=== PATIENT | female | born 1965 | race Caucasian/White ===

== ENCOUNTER → 2016-07-28 | Outpatient (CLI) | payer BC ==
[~2016-07-28] MED LIST: ACHD5005 PO; DOCU100C37 PO; ESCI10TA PO; ESTR1TAB24 PO; HYDR-3816 PO; IBUP-1773 PO; MAG30ORA2 PO; NALT1TAB PO; NAPR-243 PO; SIME80TA16 PO; SULF1TAB35 PO
--- OUTSIDE RECORDS SUMMARY | 2016-07-28 09:30 | XMS REPORT | Continuity of Care Document ---
Author Author [facility] Organization [facility] Address Unknown Phone Unavailable Care Team Providers Care [place] Farmer Name Role Phone ELMA STEPHENS MD PCP Insurance Providers Payer Name Policy Number [id number] Manuel Vitale Ilan 01 Advance Directives Directive Response Recorded Date/Time Advance Directives No 11/16/15 7:38am Health Care Power of Commissioned Sales Associate No 11/16/15 7:38am Organ Donor No 11/16/15 7:38am Resuscitation Status Full Code 11/16/15 7:38am Problems No problem information available. Medications Current Home Medications Medication Dose Units Route Directions Days/Qty Instructions Start Date Escitalopram Oxalate 10 Mg 10 Mg Oral Daily 11/11/15 Sulfamethoxazole/Trimethoprim 1 Each 1 Each Oral Twice A Day 7 Days Ibuprofen 600 Mg 600 Mg Oral Every 6 Hours as needed for Pain 40 11/15 Hydrocodone/Acetaminophen 1 Each 1-2 Ea Oral Every 6 Hours as needed for Pain 45 11/16/15 Docusate Sodium 100 Mg 100 Mg Oral Twice A Day as needed for Constipation 60 11/16/15 Simethicone 80 Mg 40 Mg Oral Three Times A Day as needed for Indigestion 30 11/16/15 Mag Hydrox/Al Hydrox/Simeth (Mylanta Susp.) 30 Ml 30 Ml Oral Four Times Daily as needed for Indigestion 30 11/16/15 Past Home Medications Medication Directions Ordered Status Acetaminophen/Hydrocodone Bitart 1 Each Tablet, 1 - 2 Each Oral Every 6 Hours as needed 09/01/11 Discontinued Naproxen 500 Mg Tablet, 1 Each Oral Twice A Day as needed 09/01/11 Discontinued Naproxen 500 Mg Tablet, 1 Each Oral Bid - Tid Prn 06/13/12 Discontinued Social History Social History Problem Response Recorded Date/Time Alcohol Use Occasionally Uses 11/16/2015 7:38am Recreational Drug Use No 11/16/2015 7:38am Recent Foreign Travel No 11/16/2015 7:38am Recent Infectious Disease Exposure No 11/16/2015 7:38am Hospitalization with Isolation Denies 11/17/2015 7:16am Sexually Transmitted Disease No 11/16/2015 7:38am HIV/AIDS No 11/16/2015 7:38am Smoking Status Former Smoker 11/16/2015 7:40am Query Response Start Date Stop Date Smoking Status Former Smoker Hospital Discharge Instructions Patient Instructions Physician Instructions New, Converted or Re-Newed RX: RX on Chart Additional Follow Up: Yes (1 week with Mary/Evans, 10-12 weeks with Evans) Activity: Activity as Tolerated (no lifting over 25 lbs) Driving Instructions: No Driving for 1 Week NO SMOKING: NO SMOKING Nothing Inside Vagina: No Douching, No [place] Discharge Diet: No Restrictions Symptoms to Report to : Swelling Increased, Bleeding Excessive, Fever Over 101 Degrees F, Vaginal Bleeding Increase, Cramps in Feet or Legs, Vaginal Discharge Foul For Any Problems or Questions: Contact Your Physician Infection Signs and Symptoms: Increased Redness, Foul Odor of Wound, Increased Drainage, Skin Itchy or Has a Rash, Increased Swelling, Temperature Above 101 F Operative Area Clean and Dry: Do Not Remove Bandage (Only remove if soiled, lifting easily. Will remove in office) Stitches/[place]/Dermabond: Dermabond Bathing Instructions: Shower Plan of Care Discharge Date 11/16/15 8:25pm Instructions/Education Provided Robot Assisted Laparoscopic Hysterectomy (DC) Prescriptions See Medication Section Functional Status Query Response Date Recorded Patient Orientation Person Place Time Situation November 17, 2015 7:16am Allergies, Adverse Reactions, Alerts Allergen Type Severity Reaction Status Last Updated Penicillins ([id number]) Allergy Unknown Active 11/11/15 Tramadol Allergy Intermediate N/V, COLD SWEATS Active 11/11/15 Immunizations Name Given Type Date of Influenza Vaccine 10/01/12 Historical Vital Signs Acute Vital Signs Vital Response Date/Time Temperature (Fahrenheit) 98.3 degrees F (97.6 - 99.5) 11/16/2015 7:33pm Temperature (Calculated Celsius) 36.34483 degrees C (36.4 - 37.5) 11/16/2015 7:33pm Temperature Source Tympanic 11/16/2015 7:33pm Pulse Rate (adult) 102 bpm (60 - 90) 11/16/2015 7:33pm Respiratory Rate 18 bpm (12 - 24) 11/16/2015 7:33pm O2 Sat by Pulse Oximetry 98 % (88 - 100) 11/16/2015 7:33pm Blood Pressure 126/75 mm Hg 11/16/2015 7:33pm Blood Pressure Mean 92 mm Hg 11/16/2015 7:33pm Pain Numeric Pain Scale 5-Moderate Pain 11/16/2015 7:33pm Height (Feet) 5 feet 11/16/2015 7:38am Height (Inches) 6.00 inches 11/16/2015 7:38am Height (Calculated Centimeters) 167.434156 cm 11/16/2015 7:38am Weight (Pounds) 241 pounds 11/16/2015 7:38am Weight (Ounces) 3.0 oz 11/16/2015 7:38am Weight (Calculated Grams) 219199.811 gm 11/16/2015 7:38am Weight (Calculated Kilograms) 109.938913 kilograms 11/16/2015 7:38am Calculated BMI 40.10 11/16/2015 7:38am Results Laboratory Results Test Name Result Units Flags Reference Collection Date/Time Result Date/ Time Comments White Blood Count 9.1 10^3/uL 4.3-11.0 11/11/2015 10:25am 11/11/2015 10 :54am Red Blood Count 5.01 10^6/uL 4.35-5.85 11/11/2015 10:25am 11/11/2015 10 :54am Hemoglobin 13.3 G/DL 11.5-16.0 11/11/2015 10:25am 11/11/2015 10:54am Hematocrit 41 % 35-52 11/11/2015 10:25am 11/11/2015 10:54am Mean Corpuscular Volume 81 FL 80-99 11/11/2015 10:11/11/2015 10: 54am Mean Corpuscular Hemoglobin 27 PG 25-34 11/11/2015 10:11/11/2015 10:54am Mean Corpuscular Hemoglobin Concent 33 G/DL 32-36 11/11/2015 10: 10:54am Red Cell Distribution Width 14.4 % 10.0-14.5 11/11/2015 10:2015 10:54am Platelet Count 376 10^3/uL 130-400 11/11/2015 10:11/11/2015 10: 54am Mean Platelet Volume 9.8 FL 7.4-10.4 11/11/2015 10:11/11/2015 10: 54am Neutrophils (%) (Auto) 68 % 42-75 11/11/2015 10:11/11/2015 10: 54am Lymphocytes (%) (Auto) 23 % 12-44 11/11/2015 10:11/11/2015 10: 54am Monocytes (%) (Auto) 8 % 0-12 11/11/2015 10:11/11/2015 10:54am Eosinophils (%) (Auto) 1 % 0-10 11/11/2015 10:11/11/2015 10:54am Basophils (%) (Auto) 0 % 0-10 11/11/2015 10:11/11/2015 10:54am Neutrophils # (Auto) 6.2 X 10^3 1.8-7.8 11/11/2015 10:11/11/2015 10:54am Lymphocytes # (Auto) 2.1 X 10^3 1.0-4.0 11/11/2015 10:11/11/2015 10:54am Monocytes # (Auto) 0.7 X 10^3 0.0-1.0 11/11/2015 10:11/11/2015 10: 54am Eosinophils # (Auto) 0.1 10^3/uL 0.0-0.3 11/11/2015 10:11/11/2015 10:54am Basophils # (Auto) 0.0 10^3/uL 0.0-0.1 11/11/2015 10:11/11/2015 10 :54am Urine Color HEIDI * 11/11/2015 10:35am 11/11/2015 11:04am Urine Clarity CLEAR 11/11/2015 10:35am 11/11/2015 11:04am Urine pH 7 5-9 11/11/2015 10:35am 11/11/2015 11:04am Urine Specific [place] 1.010 * 1.016-1.022 11/11/2015 10:35am 2015 11:04am Urine Protein 3+ * NEGATIVE 11/11/2015 10:35am 11/11/2015 11:04am Urine Glucose (UA) NEGATIVE NEGATIVE 11/11/2015 10:35am 11/11/2015 11 :04am Urine RBC (Auto) 5+ * NEGATIVE 11/11/2015 10:35am 11/11/2015 11:04am Urine Ketones NEGATIVE NEGATIVE 11/11/2015 10:35am 11/11/2015 11: 04am Urine Nitrite NEGATIVE NEGATIVE 11/11/2015 10:35am 11/11/2015 11: 04am Urine Bilirubin NEGATIVE NEGATIVE 11/11/2015 10:35am 11/11/2015 11: 04am Urine Urobilinogen NORMAL MG/DL NORMAL 11/11/2015 10:35am 11/11/2015 11 :04am Urine Leukocyte Esterase 2+ * NEGATIVE 11/11/2015 10:35am 11/11/2015 11 :04am Urine RBC >100 /HPF * 11/11/2015 10:35am 11/11/2015 11:04am Urine WBC 5-10 /HPF * 11/11/2015 10:35am 11/11/2015 11:04am Urine Bacteria TRACE /HPF 11/11/2015 10:35am 11/11/2015 11:04am Urine Squamous Epithelial Cells 5-10 /HPF 11/11/2015 10:35am 2015 11:04am Urine Crystals NONE /LPF 11/11/2015 10:35am 11/11/2015 11:04am Urine Casts NONE /LPF 11/11/2015 10:35am 11/11/2015 11:04am Urine Mucus NEGATIVE /LPF 11/11/2015 10:35am 11/11/2015 11:04am Urine Culture Indicated YES 11/11/2015 10:35am 11/11/2015 11:04am Microbiology Results Procedure Source Result Collection Date/Time Result Date/Time MRSA Screen Nasal No growth 11/11/2015 10:25am 11/12/2015 11:05am Urine Culture Urine, Clean Catch ESCHERICHIA COLI 11/11/2015 10:35am 2015 8:20am Procedures Procedure Status Date Provider(s) Robot-assisted laparoscopic hysterectomy Completed 11/16/15 IVAN EVANS DO Encounters Encounter Location Arrival/Admit Date Discharge/Depart Date Attending Provider Registered [facility] 11/16/15 7:00am IVAN EVANS DO Departed Clinic [facility] 11/11/15 9:48am 11/11/15 3: 00pm IVAN EVANS DO
--- NOTE | 2016-07-28 13:38 | Diagnostic Imaging Report ---
PROCEDURE: MRI right joint upper extremity without contrast. TECHNIQUE: Multiplanar, multisequence non contrast-enhanced MRI of the right upper extremity was accomplished. INDICATION: Right shoulder pain. FINDINGS: There is susceptibility artifact in the lateral aspect of the humeral head suggestive of a prior rotator cuff surgery with anchors placement into the humeral head. At this time, the rotator cuff demonstrates increased signal within the distal supraspinatus and infraspinatus tendon compatible with tendinosis and there is suggestion of a bursal-side low-grade tear in the distal infraspinatus tendon, and intrasubstance partial tear in the distal supraspinatus. There is minimal reactive fluid in the subacromial subdeltoid bursa. There is no retracted full-thickness tear. The subscapularis tendon demonstrates mild thickening and increased signal compatible with tendinosis. The long head biceps tendon is within its groove. The acromioclavicular joint demonstrates hypertrophic changes and subchondral edema compatible with osteoarthritis with mild inferior osteophytes that have mild impression upon the myotendinous junction of the supraspinatus. The labrum appears grossly unremarkable on this exam without intra-articular contrast. The muscle bulk and signal around the shoulder is normal. IMPRESSION: 1. Rotator cuff tendinosis with associated partial tears in the distal infraspinatus and supraspinatus tendons. 2. Acromioclavicular joint osteoarthritis with inferior osteophytes abutting the myotendinous junction of the supraspinatus. Dictated by: Dictated on workstation # [id number]
== END ==
LOC: RAD 09:27
PROVIDERS: ATTEND Orthopaedic Surgery
DX: M75.101 Unspecified rotator cuff tear or rupture of right shoulder, not specified as traumatic (principal)
CPT/HCPCS: 73221

== ENCOUNTER 2017-02-23 05:36 | Outpatient (CLI) | payer BC ==
[~2017-02-23] VITALS: Ht 167.6 cm; Wt 108.9 kg
[2017-02-23] MEDS ORDERED: LIRA0.6P3 SQ (13:39)
[2017-02-23] MEDS ORDERED: DIAZ2TAB2 PO (13:44)
[2017-02-23] MEDS ORDERED: DULO60CA58 PO (13:44)
[2017-02-23] MEDS ORDERED: ALPR1TAB7 PO (13:44)
== END 2017-02-23 13:48 ==
LOC: PREOP 05:36
PROVIDERS: ATTEND Surgery
DX: Z01.818 Encounter for other preprocedural examination (principal); L98.9 Disorder of the skin and subcutaneous tissue, unspecified

== ENCOUNTER 2017-03-02 08:34 | Day surgery (SDC) | payer BC ==
[~2017-03-02] VITALS: Ht 167.6 cm; Wt 108.9 kg
[~2017-03-02 08:34] MED LIST changes: +ALPR1TAB7 PO; +DIAZ2TAB2 PO; +DULO60CA58 PO; +LIRA0.6P3 SQ
--- OUTSIDE RECORDS SUMMARY | 2017-03-02 08:38 | XMS REPORT | Continuity of Care Document ---
Author Author [facility] Organization [facility] Address Unknown Phone Unavailable Allergies Active Description Code Type Severity Reaction Onset Reported/Identified Relationship to Patient Clinical Status Yes No Known Drug Allergies [id number] Drug Allergy Unknown N/ A 09/01/2011 Yes tramadol [id number] Drug Allergy Moderate N/V, COLD SWEAT 02/07/2016 Yes Penicillins [id number] Drug Allergy Unknown N/A 02/07/2016 Medications Problems Date Dx Coded Attending Type Code Diagnosis Diagnosed By 06/13/2012 Ot 716.96 06/13/2012 Ot 729.5 11/09/2014 [place] WALDRON, GENEVIEVE Zambrano Ot 729.81 11/10/2014 GENEVIEVE ALEJANDRA MD Ot 729.81 11/10/2014 GENEVIEVE ALEJANDRA MD Ot 729.81 11/10/2014 GENEVIEVE ALEJANDRA MD Ot 729.81 11/10/2014 [place] WALDRON, GENEVIEVE Zambrano Ot 729.81 11/16/2014 GENEVIEVE ALEJANDRA MD Ot 729.81 11/16/2014 GENEVIEVE ALEJANDRA MD Ot 729.81 12/07/2014 GENEVIEVE ALEJANDRA MD Ot 729.81 12/07/2014 GENEVIEVE ALEJANDRA MD Ot 729.81 12/09/2014 ARY MATA VACUUM CLEANER OPERATOR Ot 719.46 12/09/2014 ARY MATA VACUUM CLEANER OPERATOR Ot 729.5 12/09/2014 ARY MATA VACUUM CLEANER OPERATOR Ot V12.51 12/16/2014 GENEVIEVE ALEJANDRA MD Ot 729.81 01/08/2015 ARY MATA VACUUM CLEANER OPERATOR Ot 719.46 01/08/2015 ARY MATA VACUUM CLEANER OPERATOR Ot 729.5 01/08/2015 ARY MATA VACUUM CLEANER OPERATOR Ot V12.51 08/17/2015 CHELY RODRIGUEZ VACUUM CLEANER OPERATOR Ot R00.2 08/18/2015 CHELY RODRIGUEZ VACUUM CLEANER OPERATOR Ot R00.2 09/09/2015 CHELY RODRIGUEZ APRN Ot R00.2 PALPITATIONS 10/14/2015 EVANS DO, IVAN C Ot N92.0 EXCESSIVE AND FREQUENT MENSTRUATION WITH 10/14/2015 EVANS DO, IVAN C Ot 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 11/04/2015 EVANS DO, IVAN C Ot N92.0 EXCESSIVE AND FREQUENT MENSTRUATION WITH 11/04/2015 EVANS DO, IVAN C Ot 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 11/11/2015 EVANS DO, IVAN C Ot D25.9 LEIOMYOMA OF UTERUS, UNSPECIFIED 11/11/2015 EVANS DO, IVAN C Ot Z01.812 ENCOUNTER FOR PREPROCEDURAL LABORATORY E 11/11/2015 EVANS DO, IVAN C Ot Z11.2 ENCOUNTER FOR SCREENING FOR OTHER BACTER 11/12/2015 EVANS DO, IVAN C Ot D25.9 LEIOMYOMA OF UTERUS, UNSPECIFIED 11/12/2015 EVANS DO, IVAN C Ot Z01.812 ENCOUNTER FOR PREPROCEDURAL LABORATORY E 11/12/2015 EVANS DO, IVAN C Ot Z11.2 ENCOUNTER FOR SCREENING FOR OTHER BACTER 11/16/2015 EVANS DO, IVAN C Ot D25.0 SUBMUCOUS LEIOMYOMA OF UTERUS 11/16/2015 EVANS DO, IVAN C Ot D25.1 INTRAMURAL LEIOMYOMA OF UTERUS 11/16/2015 EVANS DO, IVAN C Ot D25.2 SUBSEROSAL LEIOMYOMA OF UTERUS 11/16/2015 EVANS DO, IVAN C Ot 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 11/16/2015 EVANS DO, IVAN C Ot N92.0 EXCESSIVE AND FREQUENT MENSTRUATION WITH 11/16/2015 EVANS DO, IVAN C Ot N94.6 DYSMENORRHEA, UNSPECIFIED 11/22/2015 EVANS DO, IVAN C Ot D25.0 SUBMUCOUS LEIOMYOMA OF UTERUS 11/22/2015 EVANS DO, IVAN C Ot D25.1 INTRAMURAL LEIOMYOMA OF UTERUS 11/22/2015 EVANS DO, IVAN C Ot D25.2 SUBSEROSAL LEIOMYOMA OF UTERUS 11/22/2015 EVANS DO, IVAN C Ot 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 11/22/2015 EVANS DO, IVAN C Ot N92.0 EXCESSIVE AND FREQUENT MENSTRUATION WITH 11/22/2015 IVAN EVANS DO Ot N94.6 DYSMENORRHEA, UNSPECIFIED 02/03/2016 RAE WALDRON, KELVIN Rodriguez Ot D25.9 LEIOMYOMA OF UTERUS, UNSPECIFIED 02/03/2016 RAE WALDRON, KELVIN Rodriguez Ot Z01.818 ENCOUNTER FOR OTHER PREPROCEDURAL EXAMIN 02/04/2016 RAE WALDRON, KELVIN Rodriguez Ot D25.9 LEIOMYOMA OF UTERUS, UNSPECIFIED 02/04/2016 RAE WALDRON, KELVIN Rodriguez Ot Z01.818 ENCOUNTER FOR OTHER PREPROCEDURAL EXAMIN 02/07/2016 [place] WALDRON, GENEVIEVE Zambrano Ot 729.81 SWELLING OF LIMB 02/07/2016 ARY MATA VACUUM CLEANER OPERATOR Ot 719.46 JOINT PAIN-L/LEG 02/07/2016 ARY MATA VACUUM CLEANER OPERATOR Ot 729.5 PAIN IN LIMB 02/07/2016 ARY MATA VACUUM CLEANER OPERATOR Ot V12.51 HX-VENOUS THROMBOSIS EMBOLISM 02/07/2016 CHELY RODRIGUEZ VACUUM CLEANER OPERATOR Ot R00.2 PALPITATIONS 02/07/2016 IVAN EVANS DO Ot N92.0 EXCESSIVE AND FREQUENT MENSTRUATION WITH 02/07/2016 IVAN EVANS DO Ot 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 Visit Date/Time Discharge Status Pt. Type Provider Facility Loc./Unit Complaint [id number] 07/28/2016 09:27:00 2016 23:59:59 CLS Outpatient LAMONT RUCKER MD [facility] RAD ROTATOR CUFF SYNDROME [id number] 02/07/2016 12:50:00 2015 16:40:00 DIS Outpatient KELVIN MCBRIDE MD [facility] SDC SCREENING [id number] 02/03/2016 05:46:00 2015 13:13:00 DIS Outpatient KELVIN MCBRIDE MD [facility] PREOP SCREENING COLONSCOPY [id number] 11/16/2015 07:00:00 2015 20:25:00 DIS Outpatient IVAN EVANS DO [facility] SDC UTERINE FIBROIDS [id number] 11/11/2015 09:48:00 2015 15:00:00 DIS Outpatient IVAN EVANS DO [facility] PREOP UTERINE FIBROIDS [id number] 10/13/2015 10:03:00 2015 23:59:59 CLS Outpatient IVAN EVANS DO [facility] RAD MENORRHAGIA,SECONDARY DYSMENORRHEA [id number] 08/16/2015 11:34:00 2015 23:59:59 CLS Outpatient CHELY RODRIGUEZ APRN [facility] CARD PALPITATIONS [id number] 12/07/2014 08:04:00 2014 23:59:59 CLS Outpatient ARY MATA APRN [facility] RAD BILAT LOWER EXTREMITY PAIN [id number] 11/05/2014 07:57:00 2014 23:59:59 CLS Outpatient GENEVIEVE ALEJANDRA MD [facility] RAD RT LEG SWELLING [id number] 11/04/2014 12:30:00 Document Registration
[2017-03-02] MEDS ORDERED: PROPOFOL INJECTION 50 ML IV ONE (08:49)
[2017-03-02] MEDS ORDERED: MIDAZOLAM 2 MG/2 ML (VERSED) VIAL ONE ×2 (08:49→09:27)
[2017-03-02] MEDS ORDERED: RT-ALBUTEROL/IPRATROPIUM 3 ML (DUONEB) VIAL ONE (08:50)
[2017-03-02] MEDS ORDERED: BUP/EPI 0.5% 1:200,000 (MARCAINE) 10ML VIAL IJ ONE (08:52)
[2017-03-02] MEDS ORDERED: LACTATED RINGERS 1,000 ML IV PRN (08:53)
[2017-03-02] MEDS ORDERED: RT-ALBUTEROL SULF 2.5 MG/3 ML PRE-MIX VIAL ONE (08:54)
[2017-03-02] MEDS ORDERED: VANCOMYCIN 1000 MG/VIAL ONE (08:58)
[2017-03-02] MEDS ORDERED: RT-ALBUTEROL SULF 2.5 MG/3 ML PRE-MIX VIAL INH ONE (09:00)
--- NOTE | 2017-03-02 09:00 | Progress Note-Pre Operative ---
Pre-Operative Progress Note H&P Reviewed The H&P was reviewed, patient examined and no changes noted. Date Seen by Provider: Feb 22, 2017 Time Seen by Provider: 11:57 Date H&P Reviewed: Mar 02, 2017 Time H&P Reviewed: 09:00 Pre-Operative Diagnosis: Skin lesion-leg KELVIN MCBRIDE MD Mar 02, 2017 9:00 am
[2017-03-02] MEDS ORDERED: VANCOMYCIN 1 GM/NS 250 ML IVPB IV ONE ×2 (09:15)
[2017-03-02] MEDS ORDERED: fentaNYL INJECTION 100 MCG/2 ML AMP ONE (09:20)
[2017-03-02 09:31] VITALS: BP 164/100
[2017-03-02] MEDS ORDERED: HYDR-3820 PO (09:49)
--- NOTE | 2017-03-02 09:50 | Discharge Inst-Simple/Standard ---
Discharge Inst-Standard Discharge Medications New, Converted or Re-Newed RX: RX on Chart Patient Instructions/Follow Up Plan of Care/Instructions/FU: Dressing may be replaced with a Band-Aid in 48 hours. Follow-up with my nurse in 2 weeks for suture removal. Right foot to be elevated as much as possible Activity as Tolerated: Yes Discharge Diet: No Restrictions KELVIN MCBRIDE MD Mar 02, 2017 9:50 am
--- NOTE | 2017-03-02 10:17 | Operative Report ---
Operative Report Date of Procedure/Surgery Mar 02, 2017 Surgeon (s) KELVIN MCBRIDE MD Shredder Tender (s): N/A Post-Operative Diagnosis Dermatofibroma Procedure Performed Excision with Frozen section Description of Procedure Anesthesia Type: MAC Estimated blood loss (mL): Minimal Specimen(s) collected/removed skin lesion Description of the Procedure Indication for procedure: This lady presented with a 1 cm raised and erythematous lesion over the right leg requiring histologic confirmation. At her request, we elected to complete this procedure under sedation with local anesthetic. Informed consent was obtained after reviewing the procedure and complications of postoperative hematoma and wound infection. Description of procedure: She was placed supine on the operative table and our anesthesiologist administered sedation, monitoring her vital signs. Due to allergy to penicillins, a gram of vancomycin was administered intravenously as prophylaxis against wound infection. Right leg was prepared and draped in the usual sterile manner. Local anesthesia was achieved using 0.5 Marcaine with epinephrine. An elliptical incision 2 cm long by 1.5 cm in width was made and the lesion excised down to the subcutaneoust issue. It was oriented with silk sutures and sent for frozen section examination. Our pathologist confirmed a dermatofibroma with negative margins. The skin edges were then approximated using a combination of 3-0 and 4-0 nylon sutures in an interrupted fashion.She tolerated the procedure well and was taken to the recovery room in a stable condition. Findings of the Procedure See op note Allergies and Home Medications Allergies Coded Allergies: tramadol (Verified Allergy, Intermediate, N/V, COLD SWEATS, 11/11/15) Penicillins (Verified Allergy, Unknown, 11/11/15) Home Medications Alprazolam 1 Mg Tablet, 1 MG PO BID PRN for ANXIETY, (Reported) Diazepam 2 Mg Tablet, 2 MG PO BID PRN for ANXIETY, (Reported) Duloxetine HCl 60 Mg Capsule.dr, 60 MG PO DAILY, (Reported) Hydrocodone/Acetaminophen 1 Each Tablet, 1 TAB PO Q4H PRN for PAIN-MILD TO MODERATE, #20 Ref 0 Prescribed by: KELVIN MCBRIDE on 03/02/17 0949 Liraglutide 0.6 Mg/0.1 Ml Pen.injctr, 1.8 MG SQ DAILY, (Reported) KELVIN MCBRIDE MD Mar 02, 2017 10:17 am
[2017-03-02] MEDS ORDERED: ONDANSETRON 4 MG/2 ML (SDV) Z0FRAN IVP PRN (10:30)
[2017-03-02] MEDS ORDERED: morphine INJ 10 MG/ML 1ML (SYR OR VIAL) IVP PRN (10:30)
[2017-03-02 10:56] VITALS: BP 119/79
[2017-03-02 11:19] VITALS: BP 111/84
== END 2017-03-02 11:35 | disposition home or self-care (01) ==
LOC: SDC 08:34
PROVIDERS: ATTEND Surgery
DX: D23.71 Other benign neoplasm of skin of right lower limb, including hip (principal); I10 Essential (primary) hypertension; F41.9 Anxiety disorder, unspecified; Z79.899 Other long term (current) drug therapy; Z11.2 Encounter for screening for other bacterial diseases; J45.909 Unspecified asthma, uncomplicated; F17.200 Nicotine dependence, unspecified, uncomplicated; G43.909 Migraine, unspecified, not intractable, without status migrainosus; E11.9 Type 2 diabetes mellitus without complications; E66.9 Obesity, unspecified; Z68.39 Body mass index [BMI] 39.0-39.9, adult
CPT/HCPCS: 82962; 87081; 94640

== ENCOUNTER → 2017-07-31 | Outpatient (CLI) | payer OTHER ==
[~2017-07-31] MED LIST changes: +HYDR-34 PO; -HYDR-3816 PO; +HYDR-3820 PO
--- NOTE | 2017-07-31 15:48 | Diagnostic Imaging Report ---
EXAMINATION: Bilateral knees at 10:21 a.m. INDICATION: Knee pain. FINDINGS: Three views of both knee joints were obtained. There is no fracture, dislocation, or acute bony abnormality evident. The mild degenerative changes involving the left knee joint seen on the prior exam of 06/13/2012 are again evident and do not seem to have progressed. The calcification in the soft tissues along the medial aspect of the proximal left tibia seen previously is also essentially no different. This may be a sequela of prior trauma. The mild narrowing of the medial compartment of the right knee joint seen on the previous exam of 11/12/2014 is again evident. The knee joint is otherwise well maintained. The soft tissues are unremarkable. IMPRESSION: 1. There is no evidence for an acute bony abnormality of either knee joint. 2. The degenerative changes involving the knee joint seen on the prior study have not progressed. Dictated by: Dictated on workstation # [id number]
== END ==
LOC: RAD 09:46
PROVIDERS: ATTEND Nurse Practitioner Family
DX: M17.0 Bilateral primary osteoarthritis of knee (principal)

== ENCOUNTER → 2017-08-06 | Outpatient (CLI) | payer OTHER ==
[~2017-08-06] MED LIST changes: +ASPI325T32 PO; +ATOR20TA66 PO; +HYDR-3816 PO; +TRAM50TA2 PO; +ZOLP10TA5 PO
--- NOTE | 2017-08-06 12:35 | Diagnostic Imaging Report ---
INDICATION: Right ankle pain. FINDINGS: Sonographic interrogation of the posterior right foot region and region of the Achilles insertion was performed. The visualized Achilles tendon appears intact. No definite evidence of tendon rupture or retraction is seen. There is a small amount of fluid located adjacent to the posterior calcaneus and deep layers of the calcaneus, perhaps owing to minimal retrocalcaneal bursitis. No other abnormalities are seen. IMPRESSION: Findings suggestive of retrocalcaneal bursitis. No tendon rupture is seen. If further evaluation is warranted, MRI could be performed. Dictated by: Dictated on workstation # [id number]
== END ==
LOC: RAD 11:35
PROVIDERS: ATTEND Nurse Practitioner Family
DX: M25.571 Pain in right ankle and joints of right foot (principal); M25.561 Pain in right knee
CPT/HCPCS: 76881

== ENCOUNTER 2017-08-07 12:13 | Observation (INO) | payer OTHER ==
[~2017-08-07] VITALS: Ht 167.6 cm; Wt 113.9 kg
[2017-08-07] VITALS (11 sets, daily range): BP systolic 107–156; BP diastolic 56–80
[~2017-08-07 12:13] MED LIST changes: -ASPI325T32 PO; -ATOR20TA66 PO; -HYDR-3816 PO; -TRAM50TA2 PO; -ZOLP10TA5 PO
--- OUTSIDE RECORDS SUMMARY | 2017-08-07 12:21 | XMS REPORT | CCD ---
Author Author [place] Organization [facility] Address [address] [place] [address] Phone Care Team Providers Care Race Board Attendant Name Role Phone PP Unavailable CCM Unavailable Summary Purpose Interface Exchange Insurance Providers Payer name Policy type / Coverage type Covered republican ID Effective Begin Date Effective End Date [facility] Commercial Insurance [id number] Unknown Family history Brother Diagnosis Age At Onset Heart Attack Unknown Osteoporosis Unknown Father Diagnosis Age At Onset Heart Attack Unknown Osteoporosis Unknown Arthritis Unknown Hyperlipidemia Unknown Hypertension Unknown Diabetes mellitus Type 2 Unknown Mother Diagnosis Age At Onset Hypertension Unknown Osteoporosis Unknown Asthma Unknown Hyperlipidemia Unknown Heart Attack Unknown Arthritis Unknown Social History Social History Element Codes Description Effective Dates Tobacco history SNOMED CT: 0156879 Quit less than 5 years ago 04/02/2015 Alcohol history Unknown occasionally drinks alcohol 04/02/2015 Marital status Unknown Manuel Vitale 12/02/2014 Number of children Unknown 3 12/02/2014 Allergies, Adverse Reactions, Alerts Allergies, Adverse Reactions, Alerts data not found Past Medical History Illness Codes Condition Status Onset Date Resolved Date Acute laryngopharyngitis ICD-9: 465.0 ICD-10: J06.0 Active 06/27/2017 Unknown Other allergic rhinitis ICD-9: 477.8 ICD-10: J30.89 Active 06/27/2017 Unknown Essential (primary) hypertension ICD-9: 401.9 ICD-10: I10 Active 08/29/2015 Unknown Ganglion, left hand ICD-9: 727.43 ICD-10: M67.442 Active 05/29/2017 Unknown Generalized anxiety disorder ICD-9: 308.0 ICD-10: F41.1 Active 05/18/2016 Unknown Other insomnia ICD-9: 327.09 ICD-10: G47.09 Active 05/18/2016 Unknown Generalized anxiety disorder ICD-9: 300.00 ICD-10: F41.1 Active 05/21/2017 Unknown Palpitations ICD-9: 785.1 ICD-10: R00.2 Active 08/15/2015 Unknown Pain in right foot ICD -9: 729.5 ICD-10: M79.671 Active 04/20/2017 Unknown Encounter for immunization ICD-9: V03.82 ICD-10: Z23 Active 03/16/2017 Unknown VACCIN FOR INFLUENZA ICD-9: V04.81 ICD-10: Z23 Active 03/16/2017 Unknown Other skin changes ICD -9: 782.9 ICD-10: R23.8 Active 01/26/2017 Unknown Acute bronchitis due to other specified organisms ICD-9: 466.0 ICD-10: J20.8 Active 01/11/2017 Unknown Chronic pain syndrome ICD-9: 338.4 ICD-10: G89.4 Active 08/29/2015 Unknown Other obesity due to excess calories ICD-9: 278.00 ICD-10: E66.09 Active 01/12/2016 Unknown Primary generalized (osteo)arthritis ICD-9: 715.09 ICD-10: M15.0 Active 07/14/2015 Unknown Hypertension Unknown Active 09/28/2016 Unknown Generalized anxiety disorder ICD-9: 300.02 ICD-10: F41.1 Active 08/24/2016 Unknown Major depressive disorder, recurrent, mild ICD-9: 296.31 ICD-10: F33.0 Active 08/24/2016 Unknown Low back pain ICD-9: 724.2 ICD-10: M54.5 Active 07/13/2016 Unknown Major depressive disorder, recurrent, moderate ICD-9: 296.32 ICD-10: F33.1 Active 05/18/2016 Unknown Other muscle spasm ICD -9: 728.85 ICD-10: M62.838 Active 05/18/2016 Unknown Streptococcal pharyngitis ICD-9: 034.0 ICD-10: J02.0 Active 02/27/2016 Unknown Major depressive disorder, recurrent, unspecified ICD-9: 296.30 ICD-10: F33.9 Active 09/26/2015 Unknown Excessive and frequent menstruation with regular cycle ICD-9: 626.2 ICD-10: N92.0 Active 08/29/2015 Unknown Pain in right knee ICD -9: 719.46 ICD-10: M25.561 Active 08/29/2015 Unknown Acute maxillary sinusitis, unspecified ICD-9: 461.0 ICD-10: J01.00 Active 07/14/2015 Unknown Restless legs syndrome ICD-9: 333.94 ICD-10: G25.81 Active 06/15/2015 Unknown Varicose veins of bilateral lower extremities with pain ICD-9: 454.8 ICD-10: I83.813 Active 04/01/2015 Unknown Osteoarthritis Unknown Active 12/02/2014 Unknown ABNORMAL WEIGHT GAIN ICD-9: 783.1 Active 12/01/2014 Unknown Osteoarthritis ICD-9: 715.90 Active 12/01/2014 Unknown Problems Condition Codes Effective Dates Condition Status Acute laryngopharyngitis ICD-9: 465.0 ICD-10: J06.0 06/27/2017 Active Other allergic rhinitis ICD-9: 477.8 ICD-10: J30.89 06/27/2017 Active Essential (primary) hypertension ICD-9: 401.9 ICD-10: I10 08/29/2015 Active Ganglion, left hand ICD-9: 727.43 ICD-10: M67.442 05/29/2017 Active Generalized anxiety disorder ICD-9: 308.0 ICD-10: F41.1 05/18/2016 Active Other insomnia ICD-9: 327.09 ICD-10: G47.09 05/18/2016 Active Generalized anxiety disorder ICD-9: 300.00 ICD-10: F41.1 05/21/2017 Active Palpitations ICD-9: 785.1 ICD-10: R00.2 08/15/2015 Active Pain in right foot ICD -9: 729.5 ICD-10: M79.671 04/20/2017 Active Encounter for immunization ICD-9: V03.82 ICD-10: Z23 03/16/2017 Active VACCIN FOR INFLUENZA ICD-9: V04.81 ICD-10: Z23 03/16/2017 Active Other skin changes ICD -9: 782.9 ICD-10: R23.8 01/26/2017 Active Acute bronchitis due to other specified organisms ICD-9: 466.0 ICD-10: J20.8 01/11/2017 Active Chronic pain syndrome ICD-9: 338.4 ICD-10: G89.4 08/29/2015 Active Other obesity due to excess calories ICD-9: 278.00 ICD-10: E66.09 01/12/2016 Active Primary generalized (osteo)arthritis ICD-9: 715.09 ICD-10: M15.0 07/14/2015 Active Hypertension Unknown 09/28/2016 Active Generalized anxiety disorder ICD-9: 300.02 ICD-10: F41.1 08/24/2016 Active Major depressive disorder, recurrent, mild ICD-9: 296.31 ICD-10: F33.0 08/24/2016 Active Low back pain ICD-9: 724.2 ICD-10: M54.5 07/13/2016 Active Major depressive disorder, recurrent, moderate ICD-9: 296.32 ICD-10: F33.1 05/18/2016 Active Other muscle spasm ICD -9: 728.85 ICD-10: M62.838 05/18/2016 Active Streptococcal pharyngitis ICD-9: 034.0 ICD-10: J02.0 02/27/2016 Active Major depressive disorder, recurrent, unspecified ICD-9: 296.30 ICD-10: F33.9 09/26/2015 Active Excessive and frequent menstruation with regular cycle ICD-9: 626.2 ICD-10: N92.0 08/29/2015 Active Pain in right knee ICD -9: 719.46 ICD-10: M25.561 08/29/2015 Active Acute maxillary sinusitis, unspecified ICD-9: 461.0 ICD-10: J01.00 07/14/2015 Active Restless legs syndrome ICD-9: 333.94 ICD-10: G25.81 06/15/2015 Active Varicose veins of bilateral lower extremities with pain ICD-9: 454.8 ICD-10: I83.813 04/01/2015 Active Osteoarthritis Unknown 12/02/2014 Active ABNORMAL WEIGHT GAIN ICD-9: 783.1 12/01/2014 Active Osteoarthritis ICD-9: 715.90 12/01/2014 Active Medications Medication Codes Instructions Start Date Stop Date Status Fill Instructions Keflex 500 mg capsule RxNorm: 050552 1 Capsule(s) PO TID 201707/03/2017 Active ceftriaxone 500 mg solution for injection RxNorm: 2155268 1 Milliliter(s) Inj 06/27/2017 06/27/2017 Inactive Ambien 10 mg tablet RxNorm: 912285 1 Tablet(s) PO daily 201708/26/2017 Active tramadol 50 mg tablet RxNorm: 222967 1 Tablet(s) PO TID as needed 05/29/2017 07/27/2017 Active Xanax 1 mg tablet RxNorm: 013313 1 Tablet(s) PO BID PRN as needed anxiety 05/21/2017 No Stop Date Active alprazolam 1 mg tablet RxNorm: 297595 1 Tablet(s) PO BID as needed 05/21/2017 06/19/2017 Inactive Celebrex 200 mg capsule RxNorm: 273359 1 CAPSULE(S) PO BID 10/30/2017 Active hydrocodone 5 mg-acetaminophen 325 mg tablet RxNorm: 407784 1 Tablet(s) PO QID as needed 04/20/2017 No Stop Date Active Cymbalta 60 mg capsule,delayed release RxNorm: 046349 1 Capsule(s) PO daily 04/20/2017 11/15/2017 Active prednisone 20 mg tablet RxNorm: 816884 2 Tablet(s) PO daily 12/201604/24/2017 Inactive Ambien 10 mg tablet RxNorm: 933264 Tablet(s) PO 04/20/2017 05/28/2017 Inactive Victoza 2-Marek 0.6 mg/0.1 mL (18 mg/3 mL) subcutaneous pen injector RxNorm: 020046 INJECT 1.8 MG SUB-Q ONCE DAILY 03/26/2017 09/21/2017 Active diazepam 2 mg tablet RxNorm: 874146 1 Tablet(s) PO QHS as needed insomnia 01/28/2017 05/07/2017 Inactive Victoza 2-Marek 0.6 mg/0.1 mL (18 mg/3 mL) subcutaneous pen injector RxNorm: 620652 1.8 Milligram(s) SQ daily 01/26/201703/25 Inactive dispense quantity sufficient albuterol sulfate 2.5 mg/3 mL (0.083 %) solution for nebulization RxNorm: 602733 3 Milliliter(s) INH UD 01/11/2017 No Stop Date Active Tussionex Pennkinetic ER 10 mg-8 mg/5 mL suspension, extended release RxNorm: 8235707 5 Milliliter(s) PO BID 01/11/2017 01/15/2017 Inactive Xanax 1 mg tablet RxNorm: 861824 1 Tablet(s) PO BID PRN as needed anxiety 01/11/2017 05/20/2017 Inactive Zithromax Z-Marek 250 mg tablet RxNorm: 744006 1 Tablet(s) PO UD 01/11/2017 01/15/2017 Inactive zpack prednisone 20 mg tablet RxNorm: 764683 2 Tablet(s) PO daily 01/15/2017 Inactive Kenalog 40 mg/mL suspension for injection RxNorm: 7364232 1.5 Milliliter(s) Inj 01/11/2017 01/11/2017 Inactive Ambien 5 mg tablet RxNorm: 427982 1 Tablet(s) PO HS PRN 11/3001/28/2017 Inactive Celebrex 200 mg capsule RxNorm: 638770 1 Capsule(s) PO BID 02/27/2017 Inactive trazodone 50 mg tablet RxNorm: 508499 1/2 to 1 Tablet(s) PO QHS 10/13/2016 10/12/2016 Inactive trazodone 50 mg tablet RxNorm: 433805 1/2 to 1 Tablet(s) PO QHS 10/13/2016 11/29/2016 Inactive Belsomra 10 mg tablet RxNorm: 3184466 1 Tablet(s) PO QHS 201611/29/2016 Inactive may increase to 20mg if 10mg not effective Cymbalta 60 mg capsule,delayed release RxNorm: 617734 1 Capsule(s) PO daily 08/24/2016 03/21/2017 Inactive Xanax 1 mg tablet RxNorm: 507831 1 Tablet(s) PO BID PRN as needed anxiety 08/24/2016 01/10/2017 Inactive Victoza 2-Marek 0.6 mg/0.1 mL (18 mg/3 mL) subcutaneous pen injector RxNorm: 029668 Milligram(s) SQ 08/24/2016 08/23/2016 Inactive Victoza 2-Marek 0.6 mg/0.1 mL (18 mg/3 mL) subcutaneous pen injector RxNorm: 511338 1.8 Milligram(s) SQ 08/24/2016 01/25/2017 Inactive Vitamin D2 50,000 unit capsule RxNorm: 172092 1 Capsule(s) PO QW 07/13/2016 10/10/2016 Inactive Cymbalta 30 mg capsule,delayed release RxNorm: 540353 1 Capsule(s) PO daily 07/13/2016 08/23/2016 Inactive Belviq XR 20 mg tablet,extended release RxNorm: 1466909 1 Tablet(s) PO daily 05/30/2016 05/29/2016 Inactive prednisone 20 mg tablet RxNorm: 901217 2 Tablet(s) PO daily 06/03/2016 Inactive prednisone 20 mg tablet RxNorm: 203545 2 Tablet(s) PO daily 05/29/2016 Inactive Belviq XR 20 mg tablet,extended release RxNorm: 5608328 1 Tablet(s) PO daily 05/30/2016 06/28/2016 Inactive cyclobenzaprine 5 mg tablet RxNorm: 662586 1-2 Tablet(s) PO TID as needed 05/19/2016 05/23/2016 Inactive metoprolol succinate ER 25 mg tablet,extended release 24 hr RxNorm: 845007 1 Tablet(s) PO QPM 04/10/2016 04/13/2016 Inactive metoprolol succinate ER 25 mg tablet,extended release 24 hr RxNorm: 029544 1 Tablet(s) PO QPM 04/10/2016 04/09/2016 Inactive escitalopram 10 mg tablet RxNorm: 467926 1 Tablet(s) PO daily 03/16/2016 07/12/2016 Inactive estradiol 1 mg tablet RxNorm: 886550 1 Tablet(s) PO every other day 03/16/2016 05/15/2016 Inactive Kenalog 40 mg/mL suspension for injection RxNorm: 1101939 Milliliter(s) Inj 02/28/2016 02/28/2016 Inactive Zithromax Z-Marek 250 mg tablet RxNorm: 250740 1 Tablet(s) PO UD 02/28/2016 03/03/2016 Inactive zpack Lexapro 10 mg tablet RxNorm: 999319 1 Tablet(s) PO daily 201502/27/2016 Inactive Lexapro 10 mg tablet RxNorm: 455862 1 Tablet(s) PO daily 201509/26/2015 Inactive Vimovo 500 mg-20 mg tablet,immediate and delay release RxNorm: 676099 1 Tablet(s) PO BID as needed for pain 08/30/201509/25 Inactive azithromycin 250 mg tablet RxNorm: 628533 1 Tablet(s) PO UD 2 pills on day #1, then one pill daily x 4 days 07/15/2015 Inactive hydrocodone 10 mg-acetaminophen 325 mg tablet RxNorm: 545883 1 Tablet(s) PO QID 06/16/2015 01/12/2016 Inactive pramipexole 0.5 mg tablet RxNorm: 898622 1 Tablet(s) PO QPM 07/201507/14/2015 Inactive Celebrex 200 mg capsule RxNorm: 943180 1 Capsule(s) PO daily 05/02/2015 Inactive Celebrex 200 mg capsule RxNorm: 130198 1 Capsule(s) PO daily 01/12/2016 Inactive hydrocodone 7.5 mg-acetaminophen 325 mg tablet RxNorm: 142282 1 Tablet(s) PO Q6 PRN 05/03/2015 06/15/2015 Inactive Mobic 15 mg tablet RxNorm: 717685 1 Tablet(s) PO daily 201405/02/2015 Inactive hydrocodone 7.5 mg-acetaminophen 325 mg tablet RxNorm: 945527 1 Tablet(s) PO Q6 PRN 04/02/2015 05/02/2015 Inactive hydrocodone 5 mg-acetaminophen 325 mg tablet RxNorm: 533826 1 Tablet(s) PO Q6 as needed 12/11/2014 04/01/2015 Inactive Pennsaid 1.5 % topical drops RxNorm: 167100 40 Drop(s) TOP QID as needed 12/07/2014 02/04/2015 Inactive Apply 40 drops to each knee joint 4 times per day as needed for osteoarthritis pain Phenergan-Codeine syrup RxNorm: 5-10 Milliliter(s) PO QID as needed No Start Date Active estradiol 1 mg tablet RxNorm: 162314 1 Tablet(s) PO QHS No Start Date 03/15/2016 Inactive Xanax 0.5 mg tablet RxNorm: 069395 1 Tablet(s) PO Q6 as needed anxiety No Start Date 08/23/2016 Inactive Tylenol Extra Strength 500 mg tablet RxNorm: 716340 3 Tablet(s) PO BID after breakfast and after lunch No Start Date Inactive hydrocodone 5 mg-acetaminophen 325 mg tablet RxNorm: 868066 1 Tablet(s) PO Q6 as needed No Start Date 12/10/2014 Inactive ibuprofen 200 mg capsule RxNorm: 716500 4 Capsule(s) PO QID as needed No Start Date 04/01/2015 Inactive Medication Administered Medication Codes Instructions Start Date Status ceftriaxone 500 mg solution for injection RxNorm: 3352164 1Milliliter 06/27/2017 No longer Active Kenalog 40 mg/mL suspension for injection RxNorm: 8502173 1.5Milliliter 01/11/2017 No longer Active Kenalog 40 mg/mL suspension for injection RxNorm: 8570351 Milliliter 02/28/2016 No longer Active Immunizations Vaccine Codes Date Status Influenza CVX: 141 03/16/2017 completed Pneumococcal (Adult) CVX: 33 03/16/2017 completed Assessments Condition Codes Effective Dates Other allergic rhinitis ICD-10: J30.89 ICD-9: 477.8 06/27/2017 Acute laryngopharyngitis ICD-10: J06.0 ICD-9: 465.0 06/27/2017 Ganglion, left hand ICD-10: M67.442 ICD-9: 727.43 05/29/2017 Essential (primary) hypertension ICD-10: I10 ICD-9: 401.9 05/29/2017 Generalized anxiety disorder ICD-10: F41.1 ICD-9: 308.0 05/29/2017 Other insomnia ICD-10: G47.09 ICD-9: 327.09 05/29/2017 Palpitations ICD-10: R00.2 ICD-9: 785.1 05/21/2017 Generalized anxiety disorder ICD-10: F41.1 ICD-9: 300.00 05/21/2017 Pain in right foot ICD-10: M79.671 ICD-9: 729.5 04/20/2017 Encounter for immunization ICD-10: Z23 ICD-9: V03.82 03/16/2017 VACCIN FOR INFLUENZA ICD-10: Z23 ICD-9: V04.81 03/16/2017 Other skin changes ICD-10: R23.8 ICD-9: 782.9 01/26/2017 Acute bronchitis due to other specified organisms ICD-10: J20.8 ICD-9: 466.0 01/11/2017 Primary generalized (osteo)arthritis ICD-10: M15.0 ICD-9: 715.09 11/30/2016 Other obesity due to excess calories ICD-10: E66.09 ICD-9: 278.00 11/30/2016 Generalized anxiety disorder ICD-10: F41.1 ICD-9: 300.02 09/28/2016 Major depressive disorder, recurrent, mild ICD-10: F33.0 ICD-9: 296.31 08/24/2016 Low back pain ICD-10: M54.5 ICD-9: 724.2 07/13/2016 Major depressive disorder, recurrent, moderate ICD-10: F33.1 ICD-9: 296.32 07/13/2016 Other muscle spasm ICD-10: M62.838 ICD-9: 728.85 05/19/2016 Streptococcal pharyngitis ICD-10: J02.0 ICD-9: 034.0 02/28/2016 Major depressive disorder, recurrent, unspecified ICD-10: F33.9 ICD-9: 296.30 09/27/2015 Pain in right knee ICD-10: M25.561 ICD-9: 719.46 08/30/2015 Excessive and frequent menstruation with regular cycle ICD- 10: N92.0 ICD-9: 626.2 08/30/2015 Chronic pain syndrome ICD-10: G89.4 ICD-9: 338.4 08/30/2015 Acute maxillary sinusitis, unspecified ICD-10: J01.00 ICD-9: 461.0 07/15/2015 Restless legs syndrome ICD-10: G25.81 ICD-9: 333.94 06/16/2015 Varicose veins of bilateral lower extremities with pain ICD- 10: I83.813 ICD-9: 454.8 04/02/2015 Superficial thrombophlebitis ICD-9: 451.9 12/02/2014 Osteoarthritis ICD-9: 715.90 12/02/2014 ABNORMAL WEIGHT GAIN ICD-9: 783.1 2014 Reason For Visit Reason For Visit Effective Dates Notes sore throat 06/27/2017 hypertension 05/29/2017 hypertension 05/21/2017 foot pain 04/20/2017 vaccination against influenza 03/16/2017 skin lesion 01/26/2017 cough 01/11/2017 insomnia 11/30/2016 insomnia 09/28/2016 depression 08/24/2016 depression 07/13/2016 myalgias 05/19/2016 depression 03/16/2016 sore throat 02/28/2016 depression 01/13/2016 medication follow up 09/27/2015 palpitations 08/30/2015 palpitations 08/16/2015 knee pain 07/15/2015 knee pain 06/16/2015 knee pain 04/02/2015 knee pain 12/02/2014 Results Observation Observation Code Item Item Code Result Date Free T4 Wzq733 FREE T4 0.76 ng/dL 05/21/2017 Tsh Ord6 hTSH II 1.27 uIU/mL 05/21/2017 Comp Metabolic Woo483 NA 140 mEq/L 05/21/2017 Comp Metabolic Fdu046 K 3.9 mEq/L 05/21/2017 Comp Metabolic Hwp829 CL 101 mEq/L 05/21/2017 Comp Metabolic Mqj423 CO2 28.0 mEq/L 05/21/2017 Comp Metabolic Vqu400 ANION GAP 15 05/21/2017 Comp Metabolic Cxw437 GLUCOSE 155 mg/dL 05/21/2017 Comp Metabolic Mla581 Creat 0.7 mg/dL 05/21/2017 Comp Metabolic Gso691 eGFR 87 ml/min/1.73m2 05/21/2017 Comp Metabolic Ahn085 BUN 16 mg/dL 05/21/2017 Comp Metabolic Maa835 B/C Ratio 21.6 Ratio 05/21/2017 Comp Metabolic Jdi380 CALCIUM 9.4 mg/dL 05/21/2017 Comp Metabolic Wcy097 ALK PHOS 132 U/L 05/21/2017 Comp Metabolic Tmz637 AST(SGOT) 16 U/L 05/21/2017 Comp Metabolic Tsh143 ALT(SGPT) 20 U/L 05/21/2017 Comp Metabolic Mzx315 BILI T 0.4 mg/dL 05/21/2017 Comp Metabolic Foh082 ALBUMIN 4.0 g/dL 05/21/2017 Comp Metabolic Afc295 TPRO 6.7 g/dL 05/21/2017 Comp Metabolic Ifg640 GLOB 2.7 g/dL 05/21/2017 Comp Metabolic Qju576 A/G Ratio 1.5 Ratio 05/21/2017 Comp Metabolic Yvv416 Osmo 284 mOsmo 05/21/2017 Cbc With Differential Ord2 WBC 14.12 K/ul 05/21/2017 Cbc With Differential Ord2 RBC 5.29 M/ul 05/21/2017 Cbc With Differential Ord2 HGB 15.3 g/dl 05/21/2017 Cbc With Differential Ord2 HCT 46.4 % 05/21/2017 Cbc With Differential Ord2 Neut% 74.9 % 05/21/2017 Cbc With Differential Ord2 MCV 87.7 fl 05/21/2017 Cbc With Differential Ord2 Lymph% 18.8 % 05/21/2017 Cbc With Differential Ord2 Amelia% 5.5 % 05/21/2017 Cbc With Differential Ord2 MCH 28.9 pg 05/21/2017 Cbc With Differential Ord2 MCHC 33.0 pg 05/21/2017 Cbc With Differential Ord2 Eos% 0.6 % 05/21/2017 Cbc With Differential Ord2 PLT 357 K/ul 05/21/2017 Cbc With Differential Ord2 Baso% 0.2 % 05/21/2017 Cbc With Differential Ord2 RDW 14.0 % 05/21/2017 Cbc With Differential Ord2 Neut ABS# 10.59 K/ul 05/21/2017 Cbc With Differential Ord2 Lymph ABS# 2.65 K/ul 05/21/2017 Cbc With Differential Ord2 Amelia ABS# 0.8 K/ul 05/21/2017 Cbc With Differential Ord2 Eos ABS# 0.1 K/ul 05/21/2017 Cbc With Differential Ord2 Baso ABS# 0.0 K/ul 05/21/2017 Estrogens Total 439058 ESTROGENS, TOTAL 54 pg/mL 05/24/2016 Magnesium Ord90 Mag 1.8 mg/dL 05/19/2016 Tsh Ord6 hTSH II 1.56 uIU/mL 05/19/2016 Progesterone Prog 0.03 ng/mL 05/19/2016 Comp Metabolic Gxx598 NA 136 mEq/L 05/19/2016 Comp Metabolic Sac777 K 4.3 mEq/L 05/19/2016 Comp Metabolic Yjv103 CL 100 mEq/L 05/19/2016 Comp Metabolic Vtb279 CO2 28.0 mEq/L 05/19/2016 Comp Metabolic Gnk845 ANION GAP 12 05/19/2016 Comp Metabolic Tnk190 GLUCOSE 138 mg/dL 05/19/2016 Comp Metabolic Wiq741 Creat 0.7 mg/dL 05/19/2016 Comp Metabolic Qxp101 eGFR 89 ml/min/1.73m2 05/19/2016 Comp Metabolic Kzb780 BUN 15 mg/dL 05/19/2016 Comp Metabolic Vlj478 B/C Ratio 20.5 Ratio 05/19/2016 Comp Metabolic Zcf568 CALCIUM 9.7 mg/dL 05/19/2016 Comp Metabolic Qhp752 ALK PHOS 106 U/L 05/19/2016 Comp Metabolic Uus630 AST(SGOT) 21 U/L 05/19/2016 Comp Metabolic Tkq925 ALT(SGPT) 24 U/L 05/19/2016 Comp Metabolic Qtd511 BILI T 0.4 mg/dL 05/19/2016 Comp Metabolic Vbg968 ALBUMIN 4.1 g/dL 05/19/2016 Comp Metabolic Mqr104 TPRO 7.1 g/dL 05/19/2016 Comp Metabolic Oem446 GLOB 3.0 g/dL 05/19/2016 Comp Metabolic Siw332 A/G Ratio 1.4 Ratio 05/19/2016 Comp Metabolic Yog040 Osmo 275 mOsmo 05/19/2016 Cbc With Differential Ord2 WBC 8.76 K/ul 05/19/2016 Cbc With Differential Ord2 RBC 4.98 M/ul 05/19/2016 Cbc With Differential Ord2 HGB 14.2 g/dl 05/19/2016 Cbc With Differential Ord2 HCT 43.1 % 05/19/2016 Cbc With Differential Ord2 Neut% 65.9 % 05/19/2016 Cbc With Differential Ord2 Lymph% 26.6 % 05/19/2016 Cbc With Differential Ord2 MCV 86.5 fl 05/19/2016 Cbc With Differential Ord2 Amelia% 6.5 % 05/19/2016 Cbc With Differential Ord2 MCH 28.5 pg 05/19/2016 Cbc With Differential Ord2 MCHC 32.9 pg 05/19/2016 Cbc With Differential Ord2 Eos% 0.8 % 05/19/2016 Cbc With Differential Ord2 PLT 334 K/ul 05/19/2016 Cbc With Differential Ord2 Baso% 0.2 % 05/19/2016 Cbc With Differential Ord2 RDW 14.7 % 05/19/2016 Cbc With Differential Ord2 Neut ABS# 5.77 K/ul 05/19/2016 Cbc With Differential Ord2 Lymph ABS# 2.33 K/ul 05/19/2016 Cbc With Differential Ord2 Amelia ABS# 0.6 K/ul 05/19/2016 Cbc With Differential Ord2 Eos ABS# 0.1 K/ul 05/19/2016 Cbc With Differential Ord2 Baso ABS# 0.0 K/ul 05/19/2016 C RAP A SC [id number] Strep A Negative 02/28/2016 Tsh Ord6 hTSH II 1.65 uIU/mL 08/16/2015 Cbc With Differential Ord2 WBC 9.02 K/ul 08/16/2015 Cbc With Differential Ord2 RBC 4.97 M/ul 08/16/2015 Cbc With Differential Ord2 HGB 13.0 g/dl 08/16/2015 Cbc With Differential Ord2 Neut% 66.0 % 08/16/2015 Cbc With Differential Ord2 HCT 40.2 % 08/16/2015 Cbc With Differential Ord2 Lymph% 25.7 % 08/16/2015 Cbc With Differential Ord2 MCV 80.9 fl 08/16/2015 Cbc With Differential Ord2 MCH 26.2 pg 08/16/2015 Cbc With Differential Ord2 Amelia% 7.1 % 08/16/2015 Cbc With Differential Ord2 MCHC 32.3 pg 08/16/2015 Cbc With Differential Ord2 Eos% 0.9 % 08/16/2015 Cbc With Differential Ord2 Baso% 0.3 % 08/16/2015 Cbc With Differential Ord2 PLT 369 K/ul 08/16/2015 Cbc With Differential Ord2 Neut ABS# 5.95 K/ul 08/16/2015 Cbc With Differential Ord2 RDW 15.3 % 08/16/2015 Cbc With Differential Ord2 Lymph ABS# 2.32 K/ul 08/16/2015 Cbc With Differential Ord2 Amelia ABS# 0.6 K/ul 08/16/2015 Cbc With Differential Ord2 Eos ABS# 0.1 K/ul 08/16/2015 Cbc With Differential Ord2 Baso ABS# 0.0 K/ul 08/16/2015 Cbc With Differential Ord2 New Analyzer Notice Please note new ref ranges starting 05-26-2015 due to implemntation of new five part differential hematolgy analyzer. 08/16/2015 Comp Metabolic Xtq606 NA 132 mEq/L 08/16/2015 Comp Metabolic Kul745 K 3.6 mEq/L 08/16/2015 Comp Metabolic Bqy851 CL 99 mEq/L 08/16/2015 Comp Metabolic Chi785 CO2 23.0 mEq/L 08/16/2015 Comp Metabolic Voi511 ANION GAP 14 08/16/2015 Comp Metabolic Mzu010 GLUCOSE 101 mg/dL 08/16/2015 Comp Metabolic Bks509 Creat 0.7 mg/dL 08/16/2015 Comp Metabolic Vtq032 eGFR 100 ml/min/1.73m2 08/16/2015 Comp Metabolic Esy518 BUN 10 mg/dL 08/16/2015 Comp Metabolic Aaa981 B/C Ratio 15.2 Ratio 08/16/2015 Comp Metabolic Gkn631 CALCIUM 9.3 mg/dL 08/16/2015 Comp Metabolic Esa356 ALK PHOS 100 U/L 08/16/2015 Comp Metabolic Qkt777 AST(SGOT) 14 U/L 08/16/2015 Comp Metabolic Dzr612 ALT(SGPT) 11 U/L 08/16/2015 Comp Metabolic Arr987 BILI T 0.3 mg/dL 08/16/2015 Comp Metabolic Zpv230 ALBUMIN 3.9 g/dL 08/16/2015 Comp Metabolic Wxu218 TPRO 7.1 g/dL 08/16/2015 Comp Metabolic Gpp677 GLOB 3.2 g/dL 08/16/2015 Comp Metabolic Dkm849 A/G Ratio 1.2 Ratio 08/16/2015 Comp Metabolic Dad904 Osmo 264 mOsmo 08/16/2015 Lipid Ord30 CHOL 209 mg/dL 12/03/2014 Lipid Ord30 HDL 42.0 mg/dl 12/03/2014 Lipid Ord30 TRIG 219 mg/dL 12/03/2014 Lipid Ord30 LDL 123 mg/dL 12/03/2014 Lipid Ord30 C/HDL 5.0 Ratio 12/03/2014 Comp Metabolic Uha928 NA 132 mEq/L 12/03/2014 Comp Metabolic Qox654 K 4.0 mEq/L 12/03/2014 Comp Metabolic Ikk932 CL 101 mEq/L 12/03/2014 Comp Metabolic Ypx316 CO2 22.0 mEq/L 12/03/2014 Comp Metabolic Pog881 ANION GAP 13 12/03/2014 Comp Metabolic Nhf899 GLUCOSE 123 mg/dL 12/03/2014 Comp Metabolic Rno756 Creat 0.7 mg/dL 12/03/2014 Comp Metabolic Kvr140 eGFR 97 ml/min/1.73m2 12/03/2014 Comp Metabolic Grp264 BUN 10 mg/dL 12/03/2014 Comp Metabolic Exz500 B/C Ratio 14.7 Ratio 12/03/2014 Comp Metabolic Vnu713 CALCIUM 9.2 mg/dL 12/03/2014 Comp Metabolic Qdk437 ALK PHOS 88 U/L 12/03/2014 Comp Metabolic Mxd554 AST(SGOT) 18 U/L 12/03/2014 Comp Metabolic Imu505 ALT(SGPT) 17 U/L 12/03/2014 Comp Metabolic Lqx023 BILI T 0.5 mg/dL 12/03/2014 Comp Metabolic Ggc612 ALBUMIN 3.9 g/dL 12/03/2014 Comp Metabolic Dof701 TPRO 6.8 g/dL 12/03/2014 Comp Metabolic Rsg499 GLOB 2.9 g/dL 12/03/2014 Comp Metabolic Bla352 A/G Ratio 1.3 Ratio 12/03/2014 Comp Metabolic Ebs039 Osmo 265 mOsmo 12/03/2014 Tsh Ord6 hTSH II 1.13 uIU/mL 12/03/2014 D-Dimer D-DIMER 168 NG/ML 12/03/2014 D-Dimer [id number] COMMENT 12/03/2014 Cbc With Differential Ord2 WBC 6.6 K/uL 12/03/2014 Cbc With Differential Ord2 LYM 2.2 K/uL 12/03/2014 Cbc With Differential Ord2 LYM% 33.6 % 12/03/2014 Cbc With Differential Ord2 NEUT/GRAN 3.9 K/uL 12/03/2014 Cbc With Differential Ord2 NEUT/GRAN % 58.6 % 12/03/2014 Cbc With Differential Ord2 MID 0.5 K/uL 12/03/2014 Cbc With Differential Ord2 MID% 7.8 % 12/03/2014 Cbc With Differential Ord2 RBC 4.75 M/uL 12/03/2014 Cbc With Differential Ord2 HGB 13.0 g/dL 12/03/2014 Cbc With Differential Ord2 HCT 39.3 % 12/03/2014 Cbc With Differential Ord2 MCV 83 fL 12/03/2014 Cbc With Differential Ord2 MCH 27 pg 12/03/2014 Cbc With Differential Ord2 MCHC 33 g/dL 12/03/2014 Cbc With Differential Ord2 PLT 341 K/uL 12/03/2014 Cbc With Differential Ord2 RDW 14.6 % 12/03/2014 Review of Systems System Result Effective Dates Constitutional recent illness 06/27/2017 Constitutional chills 06/27/2017 Constitutional No diaphoresis 06/27/2017 Constitutional fever 06/27/2017 Eyes No eye erythema 06/27/2017 Ears/Nose/Throat/Neck nasal allergies Ears/Nose/Throat/Neck nasal discharge Ears/Nose/Throat/Neck postnasal drip Ears/Nose/Throat/Neck sinus congestion Ears/Nose/Throat/Neck sore throat 2017 Cardiovascular No chest pain/pressure Cardiovascular No dyspnea 06/27/2017 Respiratory No chest congestion 2017 Respiratory cough 06/27/2017 Respiratory No dyspnea 06/27/2017 Gastrointestinal No constipation 2017 Gastrointestinal No diarrhea 06/27/2017 Gastrointestinal No nausea 06/27/2017 Gastrointestinal No vomiting 06/27/2017 Dermatologic No rash 06/27/2017 Neurologic No alteration of consciousness 06/27/2017 Neurologic No mental status change 2017 Constitutional No recent illness 2017 Constitutional No chills 05/29/2017 Constitutional No diaphoresis 05/29/2017 Constitutional No fever 05/29/2017 Eyes No eye erythema 05/29/2017 Ears/Nose/Throat/Neck No nasal allergies 05/29/2017 Ears/Nose/Throat/Neck No nasal discharge 05/29/2017 Cardiovascular No chest pain/pressure Cardiovascular No dyspnea 05/29/2017 Cardiovascular hypertension 05/29/2017 Respiratory No cough 05/29/2017 Respiratory No chest congestion 2017 Musculoskeletal joint complaint 2017 Dermatologic cyst 05/29/2017 Neurologic No alteration of consciousness 05/29/2017 Neurologic No mental status change 2017 Constitutional No recent illness 2017 Constitutional No chills 05/21/2017 Constitutional No diaphoresis 05/21/2017 Constitutional No fever 05/21/2017 Eyes No eye erythema 05/21/2017 Ears/Nose/Throat/Neck No nasal discharge 05/21/2017 Ears/Nose/Throat/Neck No nasal allergies 05/21/2017 Cardiovascular No chest pain/pressure 12/2017 Cardiovascular No dyspnea 05/21/2017 Cardiovascular hypertension 05/21/2017 Cardiovascular palpitations 05/21/2017 Respiratory No cough 05/21/2017 Respiratory No chest congestion 2017 Gastrointestinal No abdominal pain 2017 Gastrointestinal No vomiting 05/21/2017 Gastrointestinal No nausea 05/21/2017 Neurologic No alteration of consciousness 05/21/2017 Neurologic No mental status change 2017 Psychiatric anxiety 05/21/2017 Psychiatric depression 05/21/2017 Constitutional No recent illness 2016 Constitutional No chills 04/20/2017 Constitutional No fever 04/20/2017 Eyes No eye erythema 04/20/2017 Ears/Nose/Throat/Neck No nasal discharge 04/20/2017 Cardiovascular No chest pain/pressure 12/2016 Cardiovascular No dyspnea 04/20/2017 Respiratory No cough 04/20/2017 Respiratory No dyspnea 04/20/2017 Musculoskeletal joint complaint 2016 Neurologic No alteration of consciousness 04/20/2017 Neurologic No mental status change 2016 Constitutional recent illness 01/26/2017 Constitutional No chills 01/26/2017 Constitutional No diaphoresis 01/26/2017 Constitutional No fever 01/26/2017 Constitutional insomnia 01/26/2017 Eyes No eye erythema 01/26/2017 Ears/Nose/Throat/Neck No nasal discharge 01/26/2017 Ears/Nose/Throat/Neck nasal allergies Cardiovascular No chest pain/pressure Cardiovascular No dyspnea 01/26/2017 Respiratory No dyspnea 01/26/2017 Respiratory No cough 01/26/2017 Dermatologic skin lesion 01/26/2017 Neurologic No alteration of consciousness 01/26/2017 Neurologic No mental status change 2016 Constitutional recent illness 01/11/2017 Constitutional No chills 01/11/2017 Constitutional No diaphoresis 01/11/2017 Constitutional No fever 01/11/2017 Constitutional fatigue 01/11/2017 Eyes No eye erythema 01/11/2017 Ears/Nose/Throat/Neck nasal allergies Ears/Nose/Throat/Neck nasal discharge Ears/Nose/Throat/Neck postnasal drip Ears/Nose/Throat/Neck No sinus congestion 01/11/2017 Ears/Nose/Throat/Neck sore throat 2016 Cardiovascular No chest pain/pressure Cardiovascular No dyspnea 01/11/2017 Respiratory cough 01/11/2017 Respiratory chest congestion 01/11/2017 Respiratory productive sputum 01/11/2017 Respiratory No dyspnea 01/11/2017 Respiratory dyspnea on exertion 2016 Gastrointestinal No abdominal pain 2016 Gastrointestinal No diarrhea 01/11/2017 Gastrointestinal No anorexia 01/11/2017 Neurologic No mental status change 2016 Neurologic No alteration of consciousness 01/11/2017 Constitutional No recent illness 2016 Constitutional No anorexia 11/30/2016 Constitutional No night sweats 2016 Constitutional No chills 11/30/2016 Constitutional No diaphoresis 11/30/2016 Constitutional fatigue 11/30/2016 Constitutional No fever 11/30/2016 Constitutional insomnia 11/30/2016 Constitutional No malaise 11/30/2016 Constitutional weight loss 11/30/2016 Constitutional No weight gain 11/30/2016 Constitutional obesity 11/30/2016 Eyes No eye pain 11/30/2016 Eyes No vision change 11/30/2016 Ears/Nose/Throat/Neck No dizziness 2016 Ears/Nose/Throat/Neck No headache 2016 Cardiovascular No chest pain/pressure Cardiovascular No dyspnea 11/30/2016 Respiratory No chest congestion 2016 Respiratory No chest tightness 2016 Respiratory cigarette smoking 11/30/2016 Respiratory No cough 11/30/2016 Gastrointestinal No abdominal pain 2016 Gastrointestinal No nausea 11/30/2016 Gastrointestinal No vomiting 11/30/2016 Genitourinary/Nephrology No anuria/oliguria 11/30/2016 Genitourinary/Nephrology No dysuria 11/30 Musculoskeletal arthralgia(s) 11/30/2016 Dermatologic No rash 11/30/2016 Dermatologic No sores 11/30/2016 Neurologic No alteration of consciousness 11/30/2016 Neurologic No headache 11/30/2016 Psychiatric No anxiety 11/30/2016 Psychiatric No depression 11/30/2016 Hematologic/Lymphatic No abnormal ecchymoses 11/30/2016 Hematologic/Lymphatic No abnormal bleeding and bruising 11/30/2016 Constitutional No recent illness 2016 Constitutional No anorexia 09/28/2016 Constitutional No night sweats 2016 Constitutional No chills 09/28/2016 Constitutional No diaphoresis 09/28/2016 Constitutional fatigue 09/28/2016 Constitutional No fever 09/28/2016 Constitutional insomnia 09/28/2016 Constitutional No malaise 09/28/2016 Constitutional weight loss 09/28/2016 Constitutional No weight gain 09/28/2016 Constitutional obesity 09/28/2016 Eyes No eye pain 09/28/2016 Eyes No vision change 09/28/2016 Ears/Nose/Throat/Neck No dizziness 2016 Ears/Nose/Throat/Neck No headache 2016 Cardiovascular No chest pain/pressure Cardiovascular No dyspnea 09/28/2016 Respiratory No chest congestion 2016 Respiratory No chest tightness 2016 Respiratory cigarette smoking 09/28/2016 Respiratory No cough 09/28/2016 Gastrointestinal No abdominal pain 2016 Gastrointestinal No nausea 09/28/2016 Gastrointestinal No vomiting 09/28/2016 Genitourinary/Nephrology No anuria/oliguria 09/28/2016 Genitourinary/Nephrology No dysuria 09/28 Musculoskeletal arthralgia(s) 09/28/2016 Dermatologic No rash 09/28/2016 Dermatologic No sores 09/28/2016 Neurologic No alteration of consciousness 09/28/2016 Neurologic No headache 09/28/2016 Psychiatric No anxiety 09/28/2016 Psychiatric No depression 09/28/2016 Hematologic/Lymphatic No abnormal ecchymoses 09/28/2016 Hematologic/Lymphatic No abnormal bleeding and bruising 09/28/2016 Constitutional No recent illness 2016 Constitutional No anorexia 08/24/2016 Constitutional No night sweats 2016 Constitutional No chills 08/24/2016 Constitutional No diaphoresis 08/24/2016 Constitutional fatigue 08/24/2016 Constitutional No fever 08/24/2016 Constitutional insomnia 08/24/2016 Constitutional No malaise 08/24/2016 Constitutional No weight loss 08/24/2016 Constitutional No weight gain 08/24/2016 Constitutional obesity 08/24/2016 Eyes No eye pain 08/24/2016 Eyes No vision change 08/24/2016 Ears/Nose/Throat/Neck No dizziness 2016 Ears/Nose/Throat/Neck No headache 2016 Cardiovascular No chest pain/pressure Cardiovascular No dyspnea 08/24/2016 Respiratory No chest congestion 2016 Respiratory No chest tightness 2016 Respiratory cigarette smoking 08/24/2016 Respiratory No cough 08/24/2016 Gastrointestinal No abdominal pain 2016 Gastrointestinal No nausea 08/24/2016 Gastrointestinal No vomiting 08/24/2016 Genitourinary/Nephrology No anuria/oliguria 08/24/2016 Genitourinary/Nephrology No dysuria 08/24 Musculoskeletal arthralgia(s) 08/24/2016 Dermatologic No rash 08/24/2016 Dermatologic No sores 08/24/2016 Neurologic No alteration of consciousness 08/24/2016 Neurologic No headache 08/24/2016 Psychiatric No anxiety 08/24/2016 Psychiatric No depression 08/24/2016 Hematologic/Lymphatic No abnormal ecchymoses 08/24/2016 Hematologic/Lymphatic No abnormal bleeding and bruising 08/24/2016 Constitutional No recent illness 2016 Constitutional No chills 07/13/2016 Constitutional No diaphoresis 07/13/2016 Constitutional fatigue 07/13/2016 Constitutional No fever 07/13/2016 Constitutional insomnia 07/13/2016 Constitutional No malaise 07/13/2016 Ears/Nose/Throat/Neck No dizziness 2016 Ears/Nose/Throat/Neck No headache 2016 Ears/Nose/Throat/Neck No sinus congestion 07/13/2016 Cardiovascular No chest pain/pressure 06/2016 Cardiovascular No dyspnea 07/13/2016 Cardiovascular No syncope 07/13/2016 Respiratory No chest congestion 2016 Respiratory No cough 07/13/2016 Respiratory No dyspnea 07/13/2016 Gastrointestinal No abdominal pain 2016 Gastrointestinal No constipation 2016 Gastrointestinal No diarrhea 07/13/2016 Genitourinary/Nephrology No dysuria 07/13 Musculoskeletal arthralgia(s) 07/13/2016 Musculoskeletal joint complaint 2016 Dermatologic No rash 07/13/2016 Dermatologic No sores 07/13/2016 Neurologic No alteration of consciousness 07/13/2016 Psychiatric anxiety 07/13/2016 Psychiatric depression 07/13/2016 Musculoskeletal back pain 07/13/2016 Constitutional No recent illness 2016 Constitutional No chills 05/19/2016 Constitutional No diaphoresis 05/19/2016 Constitutional fatigue 05/19/2016 Constitutional No fever 05/19/2016 Constitutional insomnia 05/19/2016 Cardiovascular No chest pain/pressure 10/2016 Cardiovascular No dyspnea 05/19/2016 Respiratory No chest congestion 2016 Respiratory No cough 05/19/2016 Respiratory No dyspnea 05/19/2016 Gastrointestinal No abdominal pain 2016 Musculoskeletal arthralgia(s) 05/19/2016 Musculoskeletal joint complaint 2016 Dermatologic No rash 05/19/2016 Neurologic No alteration of consciousness 05/19/2016 Psychiatric anxiety 05/19/2016 Psychiatric depression 05/19/2016 Eyes No eye erythema 05/19/2016 Ears/Nose/Throat/Neck No nasal allergies 05/19/2016 Ears/Nose/Throat/Neck No nasal discharge 05/19/2016 Musculoskeletal myalgias 05/19/2016 Neurologic No mental status change 2016 Constitutional No recent illness 2015 Constitutional No chills 03/16/2016 Constitutional No diaphoresis 03/16/2016 Constitutional fatigue 03/16/2016 Constitutional No fever 03/16/2016 Constitutional insomnia 03/16/2016 Constitutional No malaise 03/16/2016 Ears/Nose/Throat/Neck No dizziness 2015 Ears/Nose/Throat/Neck No headache 2015 Ears/Nose/Throat/Neck No sinus congestion 03/16/2016 Cardiovascular No chest pain/pressure 07/2015 Cardiovascular No dyspnea 03/16/2016 Cardiovascular No syncope 03/16/2016 Respiratory No chest congestion 2015 Respiratory No cough 03/16/2016 Respiratory No dyspnea 03/16/2016 Gastrointestinal No abdominal pain 2015 Gastrointestinal No constipation 2015 Gastrointestinal No diarrhea 03/16/2016 Genitourinary/Nephrology No dysuria 03/16 Musculoskeletal arthralgia(s) 03/16/2016 Musculoskeletal joint complaint 2015 Dermatologic No rash 03/16/2016 Dermatologic No sores 03/16/2016 Neurologic No alteration of consciousness 03/16/2016 Psychiatric anxiety 03/16/2016 Psychiatric depression 03/16/2016 Constitutional recent illness 02/28/2016 Constitutional No anorexia 02/28/2016 Constitutional No night sweats 2015 Constitutional chills 02/28/2016 Constitutional diaphoresis 02/28/2016 Constitutional No fatigue 02/28/2016 Constitutional fever 02/28/2016 Constitutional No insomnia 02/28/2016 Constitutional No malaise 02/28/2016 Constitutional No weight loss 02/28/2016 Constitutional No weight gain 02/28/2016 Eyes No eye discharge 02/28/2016 Eyes No eye erythema 02/28/2016 Ears/Nose/Throat/Neck No dizziness 2015 Ears/Nose/Throat/Neck headache 2015 Ears/Nose/Throat/Neck No nasal discharge 02/28/2016 Ears/Nose/Throat/Neck No otalgia 2015 Ears/Nose/Throat/Neck sinus congestion Ears/Nose/Throat/Neck sore throat 2015 Cardiovascular No chest pain/pressure Respiratory No cough 02/28/2016 Gastrointestinal No abdominal pain 2015 Gastrointestinal No constipation 2015 Gastrointestinal No diarrhea 02/28/2016 Gastrointestinal No vomiting 02/28/2016 Gastrointestinal No nausea 02/28/2016 Genitourinary/Nephrology No dysuria 02/27 Musculoskeletal No joint complaint 2015 Dermatologic No rash 02/28/2016 Neurologic No alteration of consciousness 02/28/2016 Constitutional No recent illness 2015 Constitutional No chills 01/13/2016 Constitutional No diaphoresis 01/13/2016 Constitutional fatigue 01/13/2016 Constitutional No fever 01/13/2016 Constitutional insomnia 01/13/2016 Constitutional No malaise 01/13/2016 Ears/Nose/Throat/Neck No dizziness 2015 Ears/Nose/Throat/Neck No headache 2015 Ears/Nose/Throat/Neck No sinus congestion 01/13/2016 Cardiovascular No chest pain/pressure 05/2015 Cardiovascular No dyspnea 01/13/2016 Cardiovascular No syncope 01/13/2016 Respiratory No chest congestion 2015 Respiratory No cough 01/13/2016 Respiratory No dyspnea 01/13/2016 Gastrointestinal No abdominal pain 2015 Gastrointestinal No constipation 2015 Gastrointestinal No diarrhea 01/13/2016 Genitourinary/Nephrology No dysuria 01/12 Musculoskeletal arthralgia(s) 01/13/2016 Musculoskeletal joint complaint 2015 Dermatologic No rash 01/13/2016 Dermatologic No sores 01/13/2016 Neurologic No alteration of consciousness 01/13/2016 Psychiatric anxiety 01/13/2016 Psychiatric depression 01/13/2016 Constitutional No diaphoresis 09/27/2015 Constitutional No recent illness 2015 Constitutional No chills 09/27/2015 Constitutional fatigue 09/27/2015 Constitutional No fever 09/27/2015 Constitutional insomnia 09/27/2015 Constitutional No malaise 09/27/2015 Eyes No eye discharge 09/27/2015 Eyes No eye erythema 09/27/2015 Ears/Nose/Throat/Neck No dizziness 2015 Ears/Nose/Throat/Neck No headache 2015 Ears/Nose/Throat/Neck No sinus congestion 09/27/2015 Cardiovascular No chest pain/pressure Cardiovascular No dyspnea 09/27/2015 Cardiovascular palpitations 09/27/2015 Cardiovascular No syncope 09/27/2015 Respiratory No chest congestion 2015 Respiratory No cough 09/27/2015 Respiratory No dyspnea 09/27/2015 Gastrointestinal No abdominal pain 2015 Gastrointestinal No constipation 2015 Gastrointestinal No diarrhea 09/27/2015 Genitourinary/Nephrology No dysuria 09/26 Musculoskeletal arthralgia(s) 09/27/2015 Musculoskeletal joint complaint 2015 Dermatologic No rash 09/27/2015 Dermatologic No sores 09/27/2015 Neurologic No alteration of consciousness 09/27/2015 Psychiatric anxiety 09/27/2015 Psychiatric No depression 09/27/2015 Constitutional No recent illness 2015 Constitutional No chills 08/30/2015 Constitutional No diaphoresis 08/30/2015 Constitutional fatigue 08/30/2015 Constitutional No fever 08/30/2015 Constitutional insomnia 08/30/2015 Constitutional No malaise 08/30/2015 Eyes No eye discharge 08/30/2015 Eyes No eye erythema 08/30/2015 Ears/Nose/Throat/Neck No dizziness 2015 Ears/Nose/Throat/Neck No headache 2015 Ears/Nose/Throat/Neck No sinus congestion 08/30/2015 Cardiovascular No chest pain/pressure Cardiovascular No dyspnea 08/30/2015 Cardiovascular No edema 08/30/2015 Respiratory No chest congestion 2015 Respiratory No cough 08/30/2015 Respiratory No dyspnea 08/30/2015 Gastrointestinal No abdominal pain 2015 Gastrointestinal No constipation 2015 Gastrointestinal No diarrhea 08/30/2015 Genitourinary/Nephrology No dysuria 08/29 Musculoskeletal arthralgia(s) 08/30/2015 Musculoskeletal joint complaint 2015 Dermatologic No rash 08/30/2015 Dermatologic No sores 08/30/2015 Neurologic No alteration of consciousness 08/30/2015 Psychiatric anxiety 08/30/2015 Psychiatric No depression 08/30/2015 Ears/Nose/Throat/Neck No nasal allergies 08/30/2015 Ears/Nose/Throat/Neck No nasal discharge 08/30/2015 Genitourinary/Nephrology menstrual irregularity 08/30/2015 Constitutional No recent illness 2015 Constitutional No chills 08/16/2015 Constitutional No diaphoresis 08/16/2015 Constitutional fatigue 08/16/2015 Constitutional No fever 08/16/2015 Constitutional insomnia 08/16/2015 Constitutional No malaise 08/16/2015 Eyes No eye discharge 08/16/2015 Eyes No eye erythema 08/16/2015 Ears/Nose/Throat/Neck No dizziness 2015 Ears/Nose/Throat/Neck No headache 2015 Cardiovascular No chest pain/pressure 08/2015 Cardiovascular No dyspnea 08/16/2015 Respiratory No cough 08/16/2015 Gastrointestinal No abdominal pain 2015 Gastrointestinal No constipation 2015 Gastrointestinal No diarrhea 08/16/2015 Genitourinary/Nephrology No dysuria 08/15 Musculoskeletal arthralgia(s) 08/16/2015 Musculoskeletal joint complaint 2015 Dermatologic No rash 08/16/2015 Dermatologic No sores 08/16/2015 Neurologic No alteration of consciousness 08/16/2015 Psychiatric anxiety 08/16/2015 Psychiatric No depression 08/16/2015 Ears/Nose/Throat/Neck No sinus congestion 08/16/2015 Cardiovascular No edema 08/16/2015 Cardiovascular palpitations 08/16/2015 Cardiovascular No syncope 08/16/2015 Respiratory No chest congestion 2015 Respiratory No dyspnea 08/16/2015 Constitutional No recent illness 2015 Constitutional No anorexia 07/15/2015 Constitutional No night sweats 2015 Constitutional No chills 07/15/2015 Constitutional No diaphoresis 07/15/2015 Constitutional fatigue 07/15/2015 Constitutional No fever 07/15/2015 Constitutional insomnia 07/15/2015 Constitutional No malaise 07/15/2015 Eyes No eye discharge 07/15/2015 Eyes No eye erythema 07/15/2015 Ears/Nose/Throat/Neck No dizziness 2015 Ears/Nose/Throat/Neck No headache 2015 Cardiovascular No chest pain/pressure 07/2015 Cardiovascular No dyspnea 07/15/2015 Cardiovascular No edema 07/15/2015 Respiratory No cough 07/15/2015 Gastrointestinal No abdominal pain 2015 Gastrointestinal No constipation 2015 Gastrointestinal No diarrhea 07/15/2015 Genitourinary/Nephrology No dysuria 07/14 Musculoskeletal arthralgia(s) 07/15/2015 Musculoskeletal joint complaint 2015 Dermatologic No rash 07/15/2015 Dermatologic No sores 07/15/2015 Neurologic No alteration of consciousness 07/15/2015 Psychiatric No anxiety 07/15/2015 Psychiatric No depression 07/15/2015 Constitutional No recent illness 2015 Constitutional No anorexia 06/16/2015 Constitutional No night sweats 2015 Constitutional No chills 06/16/2015 Constitutional No diaphoresis 06/16/2015 Constitutional fatigue 06/16/2015 Constitutional No fever 06/16/2015 Constitutional insomnia 06/16/2015 Constitutional No malaise 06/16/2015 Eyes No eye discharge 06/16/2015 Eyes No eye erythema 06/16/2015 Ears/Nose/Throat/Neck No dizziness 2015 Ears/Nose/Throat/Neck No headache 2015 Cardiovascular No chest pain/pressure 07/2015 Cardiovascular No dyspnea 06/16/2015 Cardiovascular No edema 06/16/2015 Respiratory No cough 06/16/2015 Gastrointestinal No abdominal pain 2015 Gastrointestinal No constipation 2015 Gastrointestinal No diarrhea 06/16/2015 Genitourinary/Nephrology No dysuria 06/16 Musculoskeletal arthralgia(s) 06/16/2015 Musculoskeletal joint complaint 2015 Dermatologic No rash 06/16/2015 Dermatologic No sores 06/16/2015 Neurologic No alteration of consciousness 06/16/2015 Psychiatric No anxiety 06/16/2015 Psychiatric No depression 06/16/2015 Constitutional No recent illness 2014 Constitutional No night sweats 2014 Constitutional No anorexia 04/02/2015 Constitutional No chills 04/02/2015 Constitutional No diaphoresis 04/02/2015 Constitutional fatigue 04/02/2015 Constitutional No fever 04/02/2015 Constitutional insomnia 04/02/2015 Constitutional No malaise 04/02/2015 Constitutional No weight loss 04/02/2015 Constitutional No weight gain 04/02/2015 Eyes No eye discharge 04/02/2015 Eyes No eye erythema 04/02/2015 Ears/Nose/Throat/Neck No dizziness 2014 Ears/Nose/Throat/Neck No headache 2014 Cardiovascular No chest pain/pressure Cardiovascular No dyspnea 04/02/2015 Cardiovascular No edema 04/02/2015 Respiratory No cough 04/02/2015 Gastrointestinal No abdominal pain 2014 Gastrointestinal No constipation 2014 Gastrointestinal No diarrhea 04/02/2015 Genitourinary/Nephrology No dysuria 04/02 Musculoskeletal joint complaint 2014 Musculoskeletal arthralgia(s) 04/02/2015 Dermatologic No rash 04/02/2015 Dermatologic No sores 04/02/2015 Neurologic No alteration of consciousness 04/02/2015 Constitutional No recent illness 2014 Constitutional No chills 12/02/2014 Constitutional No fatigue 12/02/2014 Constitutional No fever 12/02/2014 Cardiovascular No chest pain/pressure Cardiovascular No dyspnea 12/02/2014 Musculoskeletal stiffness 12/02/2014 Musculoskeletal swelling 12/02/2014 Dermatologic No rash 12/02/2014 Dermatologic No sores 12/02/2014 Neurologic headache 12/02/2014 Genitourinary/Nephrology No dysuria 12/02 Genitourinary/Nephrology No hematuria Gastrointestinal No constipation 2014 Gastrointestinal No diarrhea 12/02/2014 Gastrointestinal No vomiting 12/02/2014 Gastrointestinal No nausea 12/02/2014 Respiratory No chest congestion 2014 Respiratory No chest tightness 2014 Respiratory No cough 12/02/2014 Constitutional No anorexia 12/02/2014 Constitutional No night sweats 2014 Constitutional No diaphoresis 12/02/2014 Constitutional No insomnia 12/02/2014 Constitutional No malaise 12/02/2014 Constitutional No weight loss 12/02/2014 Constitutional weight gain 12/02/2014 Physical Exam Exam Name System Name Item Name Status Result Effective Dates Notes Full Exam - ENT Constitutional general appearance Overall: well nourished 06/27/2017 None Full Exam - ENT Constitutional general appearance Overall: well developed 06/27/2017 None Full Exam - ENT Constitutional general appearance Overall: in no acute distress 06/27/2017 None Full Exam - ENT Ears/Nose/Throat otoscopic exam Overall: external auditory canals normal 06/27/2017 None Full Exam - ENT Ears/Nose/Throat otoscopic exam Left tympanic membrane: air -fluid level 06/27/2017 None Full Exam - ENT Ears/Nose/Throat otoscopic exam Right tympanic membrane: air-fluid level 06/27/2017 None Full Exam - ENT Ears/Nose/Throat lips/ teeth/gingiva Overall: benign lips 06/27/2017 None Full Exam - ENT Ears/Nose/Throat oropharynx Overall: oral mucosa clear 06/27/2017 None Full Exam - ENT Ears/Nose/Throat oropharynx Posterior Pharynx: clear post nasal drainage 06/27/2017 None Full Exam - ENT Ears/Nose/Throat oropharynx Posterior Pharynx: erythema 06/27/2017 None Full Exam - ENT Respiratory inspection Overall: no retractions 06/27/2017 None Full Exam - ENT Respiratory inspection Overall: normal rate None Full Exam - ENT Respiratory auscultation Overall: breath sounds clear bilaterally 06/27/2017 None Full Exam - ENT Cardiovascular auscultation of heart Rate: normal rate 06/27/2017 None Full Exam - ENT Cardiovascular auscultation of heart Rhythm: regular rhythm 06/27/2017 None Full Exam - ENT Lymphatic palpation of lymph nodes Overall: anterior cervical chain benign 06/27/2017 None Full Exam - ENT Lymphatic palpation of lymph nodes Overall: posterior cervical chain benign 06/27/2017 None Full Exam - ENT Neurologic mood and affect Overall: normal mood 06/27/2017 None Full Exam - ENT Neurologic mood and affect Overall: normal affect 06/27/2017 None Full Exam - ENT Neurologic orientation Overall: oriented to person, place and time 06/27/2017 None Full Exam - Dermatology Integument insp & palp - left upper extremity Lesion: cyst 05/29/2017 None Full Exam - Dermatology Integument insp & palp - left upper extremity Distribution: isolated 05/29/2017 None Full Exam - Dermatology Integument insp & palp - left upper extremity Location: on the fingers 05/29/2017 left ringer finger Full Exam - Dermatology Integument insp & palp - left upper extremity Appearance: tender 05/29/2017 None Full Exam - Dermatology Psychiatric orientation Overall: oriented to person, place and time 05/29/2017 None Full Exam - Dermatology Psychiatric mood and affect Overall: normal mood and affect 05/29/2017 None Full Exam - Dermatology Constitutional general appearance Overall: well nourished 05/29/2017 None Full Exam - Dermatology Constitutional general appearance Overall: well developed 05/29/2017 None Full Exam - Dermatology Constitutional general appearance Overall: in no acute distress 05/29/2017 None Full Exam - Dermatology Ears/Nose/Throat lips/teeth/gingiva Overall: benign lips 05/29/2017 None Full Exam - Dermatology Ears/Nose/Throat oropharynx Overall: clear oral mucosa 05/29/2017 None Full Exam - Dermatology Respiratory auscultation Overall: breath sounds clear bilaterally 05/29/2017 None Full Exam - Dermatology Respiratory respiratory effort/rhythm Overall: normal rate 05/29/2017 None Full Exam - Dermatology Respiratory respiratory effort/rhythm Overall: no retractions 05/29/2017 None Full Exam - Dermatology Musculoskeletal head and neck Overall: head atraumatic 05/29/2017 None Full Exam - General 1994 Constitutional general appearance Overall: well developed 05/21/2017 None Full Exam - General 1994 Constitutional general appearance Overall: well nourished 05/21/2017 None Full Exam - General 1994 Constitutional general appearance Evidence of Distress: anxious 05/21/2017 None Full Exam - General 1994 Constitutional general appearance Overall: in no acute distress 05/21/2017 None Full Exam - General 1994 Eyes conjunctiva /eyelids Overall: conjunctiva clear 05/21/2017 None Full Exam - General 1994 Eyes conjunctiva /eyelids Overall: cornea clear 05/21/2017 None Full Exam - General 1994 Eyes conjunctiva /eyelids Overall: eyelids normal 05/21/2017 None Full Exam - General 1994 Eyes pupils and irises Overall: pupils equal, round, reactive to light and accomodation 05/21/2017 None Full Exam - General 1994 Ears/Nose/Throat lips/teeth/gingiva Overall: benign lips 05/21/2017 None Full Exam - General 1994 Ears/Nose/Throat oral cavity/pharynx/larynx Overall: oral mucosa clear 05/21/2017 None Full Exam - General 1994 Respiratory auscultation Overall: breath sounds clear bilaterally 05/21/2017 None Full Exam - General 1994 Respiratory respiratory effort/rhythm Overall: no retractions 05/21/2017 None Full Exam - General 1994 Respiratory respiratory effort/rhythm Overall: normal rate 05/21/2017 None Full Exam - General 1994 Cardiovascular auscultation of heart Rate: tachycardia 05/21/2017 None Full Exam - General 1994 Cardiovascular auscultation of heart Rhythm: regular rhythm 05/21/2017 None Full Exam - General 1994 Lymphatic neck nodes Overall: posterior cervical chain benign 05/21/2017 None Full Exam - General 1994 Lymphatic neck nodes Overall: anterior cervical chain benign 05/21/2017 None Full Exam - General 1994 Musculoskeletal head and neck Overall: head atraumatic 05/21/2017 None Full Exam - General 1994 Neurologic cranial nerves Overall: crainial nerves 2 - 12 grossly intact 05/21/2017 None Full Exam - General 1994 Psychiatric orientation/consciousness Overall: oriented to person, place and time 05/21/2017 None Full Exam - General 1994 Psychiatric mood and affect Mood: anxious 05/21/2017 None Full Exam - General 1994 Psychiatric mood and affect Affect: flat 05/21/2017 None Full Exam - General 1994 Psychiatric appearance Overall: well-groomed, good eye contact 05/21/2017 None Full Exam - Orthopedics Constitutional general appearance Overall: well nourished 04/20/2017 None Full Exam - Orthopedics Constitutional general appearance Overall: well developed 04/20/2017 None Full Exam - Orthopedics Constitutional general appearance Overall: in no acute distress 04/20/2017 None Full Exam - Orthopedics Eyes conjunctiva/ eyelids Overall: conjunctiva clear 04/20/2017 None Full Exam - Orthopedics Eyes conjunctiva/ eyelids Overall: eyelids normal 04/20/2017 None Full Exam - Orthopedics Ears/Nose/Throat lips/teeth/gingiva Overall: benign lips 04/20/2017 None Full Exam - Orthopedics Ears/Nose/Throat oral cavity/pharynx/larynx Overall: oral mucosa clear 04/20/2017 None Full Exam - Orthopedics Respiratory respiratory effort/rhythm Overall: no retractions 04/20/2017 None Full Exam - Orthopedics Respiratory respiratory effort/rhythm Overall: normal rate 04/20/2017 None Full Exam - Orthopedics Psychiatric orientation/consciousness Overall: oriented to person, place and time 04/20/2017 None Full Exam - Orthopedics Psychiatric mood and affect Overall: normal mood and affect 04/20/2017 None Full Exam - Orthopedics Psychiatric appearance Overall: well-groomed, good eye contact 04/20/2017 None Full Exam - Orthopedics Cardiovascular examination of vasculature Overall: no clubbing, cyanosis, edema 04/20/2017 None Full Exam - Orthopedics MS: right lower extremity insp & palp - RLE Rearfoot: pain on palpation 04/20/2017 None Full Exam - Orthopedics MS: right lower extremity insp & palp - RLE Rearfoot: tenderness at Achilles tendon insertion 04/20/2017 None Full Exam - General 1994 Constitutional general appearance Overall: well developed 01/26/2017 None Full Exam - General 1994 Constitutional general appearance Overall: in no acute distress 01/26/2017 None Full Exam - General 1994 Constitutional general appearance Overall: well nourished 01/26/2017 None Full Exam - General 1994 Eyes conjunctiva /eyelids Overall: conjunctiva clear 01/26/2017 None Full Exam - General 1994 Eyes conjunctiva /eyelids Overall: eyelids normal 01/26/2017 None Full Exam - General 1994 Ears/Nose/Throat lips/teeth/gingiva Overall: benign lips 01/26/2017 None Full Exam - General 1994 Ears/Nose/Throat oral cavity/pharynx/larynx Overall: oral mucosa clear 01/26/2017 None Full Exam - General 1994 Respiratory respiratory effort/rhythm Overall: no retractions 01/26/2017 None Full Exam - General 1994 Respiratory respiratory effort/rhythm Overall: normal rate 01/26/2017 None Full Exam - General 1994 Respiratory auscultation Overall: breath sounds clear bilaterally 01/26/2017 None Full Exam - General 1994 Cardiovascular auscultation of heart Overall: regular rate 01/26/2017 None Full Exam - General 1994 Cardiovascular auscultation of heart Overall: normal heart sounds 01/26/2017 None Full Exam - General 1994 Musculoskeletal gait and station Overall: normal station 01/26/2017 None Full Exam - General 1994 Musculoskeletal gait and station Overall: normal gait 01/26/2017 None Full Exam - General 1994 Musculoskeletal head and neck Overall: head atraumatic 01/26/2017 None Full Exam - General 1994 Integument inspection of skin Location: right leg 01/26/2017 None Full Exam - General 1994 Integument inspection of skin Rash/Lesions: papule 01/26/2017 None Full Exam - General 1994 Integument inspection of skin Pigmentation: erythematous 01/26/2017 None Full Exam - General 1994 Integument inspection of skin Consistency: thick 01/26/2017 None Full Exam - General 1994 Neurologic cranial nerves Overall: crainial nerves 2 - 12 grossly intact 01/26/2017 None Full Exam - General 1994 Psychiatric orientation/consciousness Overall: oriented to person, place and time 01/26/2017 None Full Exam - General 1994 Psychiatric mood and affect Overall: normal mood and affect 01/26/2017 None Full Exam - General 1994 Psychiatric appearance Overall: well-groomed, good eye contact 01/26/2017 None Full Exam - General 1994 Constitutional general appearance Overall: well developed 01/11/2017 None Full Exam - General 1994 Constitutional general appearance Overall: in no acute distress 01/11/2017 None Full Exam - General 1994 Constitutional general appearance Overall: well nourished 01/11/2017 None Full Exam - General 1994 Eyes conjunctiva /eyelids Overall: conjunctiva clear 01/11/2017 None Full Exam - General 1994 Eyes conjunctiva /eyelids Overall: eyelids normal 01/11/2017 None Full Exam - General 1994 Ears/Nose/Throat otoscopic exam Overall: external auditory canals clear 01/11/2017 None Full Exam - General 1994 Ears/Nose/Throat otoscopic exam Tympanic membrane: air- fluid level 01/11/2017 None Full Exam - General 1994 Ears/Nose/Throat lips/teeth/gingiva Overall: benign lips 01/11/2017 None Full Exam - General 1994 Ears/Nose/Throat oral cavity/pharynx/larynx Overall: oral mucosa clear 01/11/2017 None Full Exam - General 1994 Ears/Nose/Throat oral cavity/pharynx/larynx Posterior Pharynx: clear post nasal drainage 01/11/2017 None Full Exam - General 1994 Ears/Nose/Throat oral cavity/pharynx/larynx Oropharynx: erythema 01/11/2017 None Full Exam - General 1994 Respiratory respiratory effort/rhythm Overall: normal rate 01/11/2017 None Full Exam - General 1994 Respiratory respiratory effort/rhythm Overall: no retractions 01/11/2017 None Full Exam - General 1994 Respiratory auscultation Diffuse: expiratory wheezes 01/11/2017 None Full Exam - General 1994 Respiratory auscultation Lower lung field: rhonchi 01/11/2017 None Full Exam - General 1994 Cardiovascular auscultation of heart Overall: regular rate 01/11/2017 None Full Exam - General 1994 Cardiovascular auscultation of heart Overall: normal heart sounds 01/11/2017 None Full Exam - General 1994 Abdomen abdominal exam Overall: normal bowel sounds 01/11/2017 None Full Exam - General 1994 Abdomen abdominal exam Overall: no tenderness 01/11/2017 None Full Exam - General 1994 Lymphatic neck nodes Overall: anterior cervical chain benign 01/11/2017 None Full Exam - General 1994 Lymphatic neck nodes Overall: posterior cervical chain benign 01/11/2017 None Full Exam - General 1994 Musculoskeletal head and neck Overall: head atraumatic 01/11/2017 None Full Exam - General 1994 Musculoskeletal gait and station Overall: normal station 01/11/2017 None Full Exam - General 1994 Musculoskeletal gait and station Overall: normal gait 01/11/2017 None Full Exam - General 1994 Neurologic cranial nerves Overall: crainial nerves 2 - 12 grossly intact 01/11/2017 None Full Exam - General 1994 Psychiatric orientation/consciousness Overall: oriented to person, place and time 01/11/2017 None Full Exam - General 1994 Psychiatric mood and affect Overall: normal mood and affect 01/11/2017 None Full Exam - General 1994 Psychiatric appearance Overall: well-groomed, good eye contact 01/11/2017 None Full Exam - General 1994 Constitutional general appearance Development: well developed 11/30/2016 None Full Exam - General 1994 Constitutional general appearance Development: appears stated age 0711/30/2016 None Full Exam - General 1994 Eyes conjunctiva /eyelids Overall: conjunctiva clear 11/30/2016 None Full Exam - General 1994 Eyes conjunctiva /eyelids Overall: cornea clear 11/30/2016 None Full Exam - General 1994 Eyes conjunctiva /eyelids Overall: eyelids normal 11/30/2016 None Full Exam - General 1994 Eyes pupils and irises Overall: pupils equal, round, reactive to light and accomodation 11/30/2016 None Full Exam - General 1994 Neck inspection of neck Overall: normal size 11/30/2016 None Full Exam - General 1994 Neck inspection of neck Overall: normal appearance 11/30/2016 None Full Exam - General 1994 Neck inspection of neck Overall: no masses 11/30/2016 None Full Exam - General 1994 Respiratory auscultation Overall: breath sounds clear bilaterally 11/30/2016 None Full Exam - General 1994 Respiratory respiratory effort/rhythm Overall: no retractions 11/30/2016 None Full Exam - General 1994 Respiratory respiratory effort/rhythm Overall: normal rate 11/30/2016 None Full Exam - General 1994 Cardiovascular extremities Overall: no clubbing 11/30/2016 None Full Exam - General 1994 Cardiovascular auscultation of heart Overall: regular rate 11/30/2016 None Full Exam - General 1994 Cardiovascular auscultation of heart Overall: normal heart sounds 11/30/2016 None Full Exam - General 1994 Cardiovascular auscultation of heart Overall: no murmurs 11/30/2016 None Full Exam - General 1994 Abdomen abdominal exam Overall: no tenderness 11/30/2016 None Full Exam - General 1994 Abdomen abdominal exam Overall: normal bowel sounds 11/30/2016 None Full Exam - General 1994 Lymphatic neck nodes Overall: anterior cervical chain benign 11/30/2016 None Full Exam - General 1994 Lymphatic neck nodes Overall: posterior cervical chain benign 11/30/2016 None Full Exam - General 1994 Musculoskeletal gait and station Overall: normal gait 11/30/2016 None Full Exam - General 1994 Musculoskeletal gait and station Overall: normal station 11/30/2016 None Full Exam - General 1994 Musculoskeletal head and neck Overall: head atraumatic 11/30/2016 None Full Exam - General 1994 Musculoskeletal head and neck Overall: cervical spine benign 11/30/2016 None Full Exam - General 1994 Integument inspection of skin Overall: few scattered moles, no gross abnormalities 11/30/2016 None Full Exam - General 1994 Neurologic mental status Overall: alert 11/30/2016 None Full Exam - General 1994 Neurologic mental status Overall: oriented 11/30/2016 None Full Exam - General 1994 Neurologic gait Overall: no ataxia, no unsteadiness 11/30/2016 None Full Exam - General 1994 Psychiatric orientation/consciousness Overall: oriented to person, place and time 11/30/2016 None Full Exam - General 1994 Psychiatric mood and affect Overall: normal mood and affect 11/30/2016 None Full Exam - General 1994 Psychiatric appearance Overall: well-groomed, good eye contact 11/30/2016 None Full Exam - General 1994 Psychiatric speech Overall: normal quality, no aphasia 11/30/2016 None Full Exam - General 1994 Constitutional general appearance Development: well developed 09/28/2016 None Full Exam - General 1994 Constitutional general appearance Development: appears stated age 0509/28/2016 None Full Exam - General 1994 Eyes conjunctiva /eyelids Overall: conjunctiva clear 09/28/2016 None Full Exam - General 1994 Eyes conjunctiva /eyelids Overall: cornea clear 09/28/2016 None Full Exam - General 1994 Eyes conjunctiva /eyelids Overall: eyelids normal 09/28/2016 None Full Exam - General 1994 Eyes pupils and irises Overall: pupils equal, round, reactive to light and accomodation 09/28/2016 None Full Exam - General 1994 Neck inspection of neck Overall: normal size 09/28/2016 None Full Exam - General 1994 Neck inspection of neck Overall: normal appearance 09/28/2016 None Full Exam - General 1994 Neck inspection of neck Overall: no masses 09/28/2016 None Full Exam - General 1994 Respiratory auscultation Overall: breath sounds clear bilaterally 09/28/2016 None Full Exam - General 1994 Respiratory respiratory effort/rhythm Overall: no retractions 09/28/2016 None Full Exam - General 1994 Respiratory respiratory effort/rhythm Overall: normal rate 09/28/2016 None Full Exam - General 1994 Cardiovascular extremities Overall: no clubbing 09/28/2016 None Full Exam - General 1994 Cardiovascular auscultation of heart Overall: regular rate 09/28/2016 None Full Exam - General 1994 Cardiovascular auscultation of heart Overall: normal heart sounds 09/28/2016 None Full Exam - General 1994 Cardiovascular auscultation of heart Overall: no murmurs 09/28/2016 None Full Exam - General 1994 Abdomen abdominal exam Overall: no tenderness 09/28/2016 None Full Exam - General 1994 Abdomen abdominal exam Overall: normal bowel sounds 09/28/2016 None Full Exam - General 1994 Lymphatic neck nodes Overall: anterior cervical chain benign 09/28/2016 None Full Exam - General 1994 Lymphatic neck nodes Overall: posterior cervical chain benign 09/28/2016 None Full Exam - General 1994 Musculoskeletal upper extremity Inspection - shoulder: presence of a scar 09/28/2016 Post- operative x 2 weeks Full Exam - General 1994 Musculoskeletal upper extremity ROM - shoulder: decreased external rotation 09/28/2016 None Full Exam - General 1994 Musculoskeletal upper extremity ROM - shoulder: decreased shoulder flexion 09/28/2016 None Full Exam - General 1994 Musculoskeletal gait and station Overall: normal gait 09/28/2016 None Full Exam - General 1994 Musculoskeletal gait and station Overall: normal station 09/28/2016 None Full Exam - General 1994 Musculoskeletal head and neck Overall: head atraumatic 09/28/2016 None Full Exam - General 1994 Musculoskeletal head and neck Overall: cervical spine benign 09/28/2016 None Full Exam - General 1994 Integument inspection of skin Overall: few scattered moles, no gross abnormalities 09/28/2016 None Full Exam - General 1994 Neurologic mental status Overall: alert 09/28/2016 None Full Exam - General 1994 Neurologic mental status Overall: oriented 09/28/2016 None Full Exam - General 1994 Neurologic gait Overall: no ataxia, no unsteadiness 09/28/2016 None Full Exam - General 1994 Psychiatric orientation/consciousness Overall: oriented to person, place and time 09/28/2016 None Full Exam - General 1994 Psychiatric mood and affect Overall: normal mood and affect 09/28/2016 None Full Exam - General 1994 Psychiatric appearance Overall: well-groomed, good eye contact 09/28/2016 None Full Exam - General 1994 Psychiatric speech Overall: normal quality, no aphasia 09/28/2016 None Full Exam - General 1994 Constitutional general appearance Development: well developed 08/24/2016 None Full Exam - General 1994 Constitutional general appearance Development: appears stated age 0408/24/2016 None Full Exam - General 1994 Eyes conjunctiva /eyelids Overall: conjunctiva clear 08/24/2016 None Full Exam - General 1994 Eyes conjunctiva /eyelids Overall: cornea clear 08/24/2016 None Full Exam - General 1994 Eyes conjunctiva /eyelids Overall: eyelids normal 08/24/2016 None Full Exam - General 1994 Eyes pupils and irises Overall: pupils equal, round, reactive to light and accomodation 08/24/2016 None Full Exam - General 1994 Ears/Nose/Throat otoscopic exam Overall: external auditory canals clear 08/24/2016 None Full Exam - General 1994 Ears/Nose/Throat otoscopic exam Overall: tympanic membranes clear 08/24/2016 None Full Exam - General 1994 Ears/Nose/Throat lips/teeth/gingiva Overall: benign lips 08/24/2016 None Full Exam - General 1994 Ears/Nose/Throat lips/teeth/gingiva Overall: normal dentition 08/24/2016 None Full Exam - General 1994 Ears/Nose/Throat oral cavity/pharynx/larynx Overall: oral mucosa clear 08/24/2016 None Full Exam - General 1994 Neck inspection of neck Overall: normal size 08/24/2016 None Full Exam - General 1994 Neck inspection of neck Overall: normal appearance 08/24/2016 None Full Exam - General 1994 Neck inspection of neck Overall: no masses 08/24/2016 None Full Exam - General 1994 Respiratory auscultation Overall: breath sounds clear bilaterally 08/24/2016 None Full Exam - General 1994 Respiratory respiratory effort/rhythm Overall: no retractions 08/24/2016 None Full Exam - General 1994 Respiratory respiratory effort/rhythm Overall: normal rate 08/24/2016 None Full Exam - General 1994 Cardiovascular extremities Overall: no clubbing 08/24/2016 None Full Exam - General 1994 Cardiovascular auscultation of heart Overall: regular rate 08/24/2016 None Full Exam - General 1994 Cardiovascular auscultation of heart Overall: normal heart sounds 08/24/2016 None Full Exam - General 1994 Cardiovascular auscultation of heart Overall: no murmurs 08/24/2016 None Full Exam - General 1994 Abdomen abdominal exam Overall: no tenderness 08/24/2016 None Full Exam - General 1994 Abdomen abdominal exam Overall: normal bowel sounds 08/24/2016 None Full Exam - General 1994 Lymphatic neck nodes Overall: anterior cervical chain benign 08/24/2016 None Full Exam - General 1994 Lymphatic neck nodes Overall: posterior cervical chain benign 08/24/2016 None Full Exam - General 1994 Musculoskeletal gait and station Overall: normal gait 08/24/2016 None Full Exam - General 1994 Musculoskeletal gait and station Overall: normal station 08/24/2016 None Full Exam - General 1994 Musculoskeletal head and neck Overall: head atraumatic 08/24/2016 None Full Exam - General 1994 Musculoskeletal head and neck Overall: cervical spine benign 08/24/2016 None Full Exam - General 1994 Musculoskeletal upper extremity Inspection - shoulder: presence of a scar 08/24/2016 Post- operative x 2 weeks Full Exam - General 1994 Musculoskeletal upper extremity ROM - shoulder: decreased external rotation 08/24/2016 None Full Exam - General 1994 Musculoskeletal upper extremity ROM - shoulder: decreased shoulder flexion 08/24/2016 None Full Exam - General 1994 Integument inspection of skin Overall: few scattered moles, no gross abnormalities 08/24/2016 None Full Exam - General 1994 Neurologic mental status Overall: alert 08/24/2016 None Full Exam - General 1994 Neurologic mental status Overall: oriented 08/24/2016 None Full Exam - General 1994 Neurologic gait Overall: no ataxia, no unsteadiness 08/24/2016 None Full Exam - General 1994 Psychiatric orientation/consciousness Overall: oriented to person, place and time 08/24/2016 None Full Exam - General 1994 Psychiatric mood and affect Overall: normal mood and affect 08/24/2016 None Full Exam - General 1994 Psychiatric appearance Overall: well-groomed, good eye contact 08/24/2016 None Full Exam - General 1994 Psychiatric speech Overall: normal quality, no aphasia 08/24/2016 None Full Exam - General 1994 Constitutional general appearance Development: well developed 07/13/2016 None Full Exam - General 1994 Constitutional general appearance Development: appears stated age 0307/13/2016 None Full Exam - General 1994 Constitutional general appearance Stature/Body Habitus: normal body habitus 07/13/2016 None Full Exam - General 1994 Constitutional general appearance Nourishment: well nourished 07/13/2016 None Full Exam - General 1994 Constitutional general appearance Nourishment: obese 07/13/2016 None Full Exam - General 1994 Constitutional general appearance Evidence of Distress: in no acute distress 07/13/2016 None Full Exam - General 1994 Eyes conjunctiva /eyelids Overall: conjunctiva clear 07/13/2016 None Full Exam - General 1994 Eyes conjunctiva /eyelids Overall: cornea clear 07/13/2016 None Full Exam - General 1994 Eyes conjunctiva /eyelids Overall: eyelids normal 07/13/2016 None Full Exam - General 1994 Eyes pupils and irises Overall: pupils equal, round, reactive to light and accomodation 07/13/2016 None Full Exam - General 1994 Ears/Nose/Throat otoscopic exam Overall: external auditory canals clear 07/13/2016 None Full Exam - General 1994 Ears/Nose/Throat otoscopic exam Overall: tympanic membranes clear 07/13/2016 None Full Exam - General 1994 Ears/Nose/Throat lips/teeth/gingiva Overall: benign lips 07/13/2016 None Full Exam - General 1995 Ears/Nose/Throat lips/teeth/gingiva Overall: normal dentition 07/13/2016 None Full Exam - General 1994 Ears/Nose/Throat oral cavity/pharynx/larynx Overall: oral mucosa clear 07/13/2016 None Full Exam - General 1994 Respiratory auscultation Overall: breath sounds clear bilaterally 07/13/2016 None Full Exam - General 1994 Respiratory respiratory effort/rhythm Overall: no retractions 07/13/2016 None Full Exam - General 1994 Respiratory respiratory effort/rhythm Overall: normal rate 07/13/2016 None Full Exam - General 1994 Cardiovascular extremities Other findings: varicose veins 07/13/2016 bilat lower extremities Full Exam - General 1994 Cardiovascular auscultation of heart Overall: regular rate 07/13/2016 None Full Exam - General 1994 Cardiovascular auscultation of heart Overall: normal heart sounds 07/13/2016 None Full Exam - General 1994 Cardiovascular auscultation of heart Overall: no murmurs 07/13/2016 None Full Exam - General 1994 Musculoskeletal spine, ribs and pelvis Overall: good posture 07/13/2016 None Full Exam - General 1994 Musculoskeletal spine, ribs and pelvis Posture: a normal exam 07/13/2016 None Full Exam - General 1994 Musculoskeletal gait and station Overall: normal gait 07/13/2016 None Full Exam - General 1994 Musculoskeletal gait and station Overall: normal station 07/13/2016 None Full Exam - General 1994 Musculoskeletal head and neck Overall: head atraumatic 07/13/2016 None Full Exam - General 1994 Neurologic mental status Overall: alert 07/13/2016 None Full Exam - General 1994 Neurologic mental status Overall: oriented 07/13/2016 None Full Exam - General 1994 Neurologic gait Overall: no ataxia, no unsteadiness 07/13/2016 None Full Exam - General 1994 Neurologic cranial nerves Overall: crainial nerves 2 - 12 grossly intact 07/13/2016 None Full Exam - General 1994 Psychiatric orientation/consciousness Overall: oriented to person, place and time 07/13/2016 None Full Exam - General 1994 Psychiatric mood and affect Overall: normal mood and affect 07/13/2016 None Full Exam - General 1994 Psychiatric appearance Overall: well-groomed, good eye contact 07/13/2016 None Full Exam - General 1994 Constitutional general appearance Nourishment: obese 05/19/2016 None Full Exam - General 1994 Constitutional general appearance Evidence of Distress: in no acute distress 05/19/2016 None Full Exam - General 1994 Eyes conjunctiva /eyelids Overall: conjunctiva clear 05/19/2016 None Full Exam - General 1994 Eyes conjunctiva /eyelids Overall: cornea clear 05/19/2016 None Full Exam - General 1994 Eyes conjunctiva /eyelids Overall: eyelids normal 05/19/2016 None Full Exam - General 1994 Eyes pupils and irises Overall: pupils equal, round, reactive to light and accomodation 05/19/2016 None Full Exam - General 1994 Ears/Nose/Throat lips/teeth/gingiva Overall: benign lips 05/19/2016 None Full Exam - General 1994 Ears/Nose/Throat lips/teeth/gingiva Overall: normal dentition 05/19/2016 None Full Exam - General 1994 Ears/Nose/Throat oral cavity/pharynx/larynx Overall: oral mucosa clear 05/19/2016 None Full Exam - General 1994 Respiratory auscultation Overall: breath sounds clear bilaterally 05/19/2016 None Full Exam - General 1994 Respiratory respiratory effort/rhythm Overall: no retractions 05/19/2016 None Full Exam - General 1994 Respiratory respiratory effort/rhythm Overall: normal rate 05/19/2016 None Full Exam - General 1994 Cardiovascular auscultation of heart Overall: regular rate 05/19/2016 None Full Exam - General 1994 Cardiovascular auscultation of heart Overall: normal heart sounds 05/19/2016 None Full Exam - General 1995 Musculoskeletal gait and station Overall: normal gait 05/19/2016 None Full Exam - General 1994 Musculoskeletal gait and station Overall: normal station 05/19/2016 None Full Exam - General 1994 Musculoskeletal head and neck Overall: head atraumatic 05/19/2016 None Full Exam - General 1994 Neurologic mental status Overall: alert 05/19/2016 None Full Exam - General 1994 Neurologic mental status Overall: oriented 05/19/2016 None Full Exam - General 1994 Neurologic gait Overall: no ataxia, no unsteadiness 05/19/2016 None Full Exam - General 1994 Neurologic cranial nerves Overall: crainial nerves 2 - 12 grossly intact 05/19/2016 None Full Exam - General 1994 Psychiatric orientation/consciousness Overall: oriented to person, place and time 05/19/2016 None Full Exam - General 1994 Psychiatric appearance Overall: well-groomed, good eye contact 05/19/2016 None Full Exam - General 1994 Constitutional general appearance Overall: well developed 05/19/2016 None Full Exam - General 1994 Constitutional general appearance Overall: in no acute distress 05/19/2016 None Full Exam - General 1994 Constitutional general appearance Overall: well nourished 05/19/2016 None Full Exam - General 1994 Psychiatric mood and affect Mood: flat 05/19/2016 None Full Exam - General 1994 Constitutional general appearance Development: well developed 03/16/2016 None Full Exam - General 1994 Constitutional general appearance Development: appears stated age 1103/16/2016 None Full Exam - General 1994 Constitutional general appearance Stature/Body Habitus: normal body habitus 03/16/2016 None Full Exam - General 1994 Constitutional general appearance Nourishment: well nourished 03/16/2016 None Full Exam - General 1994 Constitutional general appearance Nourishment: obese 03/16/2016 None Full Exam - General 1994 Constitutional general appearance Evidence of Distress: in no acute distress 03/16/2016 None Full Exam - General 1994 Eyes conjunctiva /eyelids Overall: conjunctiva clear 03/16/2016 None Full Exam - General 1994 Eyes conjunctiva /eyelids Overall: cornea clear 03/16/2016 None Full Exam - General 1994 Eyes conjunctiva /eyelids Overall: eyelids normal 03/16/2016 None Full Exam - General 1994 Eyes pupils and irises Overall: pupils equal, round, reactive to light and accomodation 03/16/2016 None Full Exam - General 1994 Ears/Nose/Throat otoscopic exam Overall: external auditory canals clear 03/16/2016 None Full Exam - General 1994 Ears/Nose/Throat otoscopic exam Overall: tympanic membranes clear 03/16/2016 None Full Exam - General 1994 Ears/Nose/Throat lips/teeth/gingiva Overall: benign lips 03/16/2016 None Full Exam - General 1994 Ears/Nose/Throat lips/teeth/gingiva Overall: normal dentition 03/16/2016 None Full Exam - General 1994 Ears/Nose/Throat oral cavity/pharynx/larynx Overall: oral mucosa clear 03/16/2016 None Full Exam - General 1994 Respiratory auscultation Overall: breath sounds clear bilaterally 03/16/2016 None Full Exam - General 1994 Respiratory respiratory effort/rhythm Overall: no retractions 03/16/2016 None Full Exam - General 1994 Respiratory respiratory effort/rhythm Overall: normal rate 03/16/2016 None Full Exam - General 1994 Cardiovascular extremities Other findings: varicose veins 03/16/2016 bilat lower extremities Full Exam - General 1994 Cardiovascular auscultation of heart Overall: regular rate 03/16/2016 None Full Exam - General 1994 Cardiovascular auscultation of heart Overall: normal heart sounds 03/16/2016 None Full Exam - General 1994 Cardiovascular auscultation of heart Overall: no murmurs 03/16/2016 None Full Exam - General 1994 Musculoskeletal spine, ribs and pelvis Overall: good posture 03/16/2016 None Full Exam - General 1994 Musculoskeletal spine, ribs and pelvis Posture: a normal exam 03/16/2016 None Full Exam - General 1994 Musculoskeletal gait and station Overall: normal gait 03/16/2016 None Full Exam - General 1994 Musculoskeletal gait and station Overall: normal station 03/16/2016 None Full Exam - General 1994 Musculoskeletal head and neck Overall: head atraumatic 03/16/2016 None Full Exam - General 1994 Neurologic mental status Overall: alert 03/16/2016 None Full Exam - General 1994 Neurologic mental status Overall: oriented 03/16/2016 None Full Exam - General 1994 Neurologic gait Overall: no ataxia, no unsteadiness 03/16/2016 None Full Exam - General 1994 Neurologic cranial nerves Overall: crainial nerves 2 - 12 grossly intact 03/16/2016 None Full Exam - General 1994 Psychiatric orientation/consciousness Overall: oriented to person, place and time 03/16/2016 None Full Exam - General 1994 Psychiatric mood and affect Overall: normal mood and affect 03/16/2016 None Full Exam - General 1994 Psychiatric appearance Overall: well-groomed, good eye contact 03/16/2016 None Full Exam - ENT Constitutional general appearance Overall: well nourished 02/28/2016 None Full Exam - ENT Constitutional general appearance Overall: well developed 02/28/2016 None Full Exam - ENT Constitutional general appearance Overall: in no acute distress 02/28/2016 None Full Exam - ENT Neurologic orientation Overall: oriented to person, place and time 02/28/2016 None Full Exam - ENT Integument inspection of skin Overall: no rash, lesions 02/28/2016 None Full Exam - ENT Lymphatic palpation of lymph nodes Overall: anterior cervical chain benign 02/28/2016 None Full Exam - ENT Lymphatic palpation of lymph nodes Overall: posterior cervical chain benign 02/28/2016 None Full Exam - ENT Cardiovascular auscultation of heart Overall: regular rate 02/28/2016 None Full Exam - ENT Cardiovascular auscultation of heart Overall: normal heart sounds 02/28/2016 None Full Exam - ENT Respiratory auscultation Overall: breath sounds clear bilaterally 02/28/2016 None Full Exam - ENT Respiratory inspection Overall: no retractions 02/28/2016 None Full Exam - ENT Respiratory inspection Overall: normal rate None Full Exam - ENT Ears/Nose/Throat otoscopic exam Overall: external auditory canals normal 02/28/2016 None Full Exam - ENT Ears/Nose/Throat otoscopic exam Overall: tympanic membranes normal 02/28/2016 None Full Exam - ENT Ears/Nose/Throat oropharynx Posterior Pharynx: erythema 02/28/2016 None Full Exam - General 1994 Constitutional general appearance Development: well developed 01/13/2016 None Full Exam - General 1994 Constitutional general appearance Development: appears stated age 0901/13/2016 None Full Exam - General 1994 Constitutional general appearance Stature/Body Habitus: normal body habitus 01/13/2016 None Full Exam - General 1994 Constitutional general appearance Nourishment: well nourished 01/13/2016 None Full Exam - General 1994 Constitutional general appearance Nourishment: obese 01/13/2016 None Full Exam - General 1994 Constitutional general appearance Evidence of Distress: in no acute distress 01/13/2016 None Full Exam - General 1994 Eyes conjunctiva /eyelids Overall: conjunctiva clear 01/13/2016 None Full Exam - General 1994 Eyes conjunctiva /eyelids Overall: cornea clear 01/13/2016 None Full Exam - General 1994 Eyes conjunctiva /eyelids Overall: eyelids normal 01/13/2016 None Full Exam - General 1994 Eyes pupils and irises Overall: pupils equal, round, reactive to light and accomodation 01/13/2016 None Full Exam - General 1994 Ears/Nose/Throat otoscopic exam Overall: external auditory canals clear 01/13/2016 None Full Exam - General 1994 Ears/Nose/Throat otoscopic exam Overall: tympanic membranes clear 01/13/2016 None Full Exam - General 1994 Ears/Nose/Throat lips/teeth/gingiva Overall: benign lips 01/13/2016 None Full Exam - General 1994 Ears/Nose/Throat lips/teeth/gingiva Overall: normal dentition 01/13/2016 None Full Exam - General 1994 Ears/Nose/Throat oral cavity/pharynx/larynx Overall: oral mucosa clear 01/13/2016 None Full Exam - General 1994 Respiratory auscultation Overall: breath sounds clear bilaterally 01/13/2016 None Full Exam - General 1994 Respiratory respiratory effort/rhythm Overall: no retractions 01/13/2016 None Full Exam - General 1994 Respiratory respiratory effort/rhythm Overall: normal rate 01/13/2016 None Full Exam - General 1994 Cardiovascular extremities Other findings: varicose veins 01/13/2016 bilat lower extremities Full Exam - General 1994 Cardiovascular auscultation of heart Overall: regular rate 01/13/2016 None Full Exam - General 1994 Cardiovascular auscultation of heart Overall: normal heart sounds 01/13/2016 None Full Exam - General 1994 Cardiovascular auscultation of heart Overall: no murmurs 01/13/2016 None Full Exam - General 1994 Musculoskeletal spine, ribs and pelvis Overall: good posture 01/13/2016 None Full Exam - General 1994 Musculoskeletal spine, ribs and pelvis Posture: a normal exam 01/13/2016 None Full Exam - General 1994 Musculoskeletal gait and station Overall: normal gait 01/13/2016 None Full Exam - General 1994 Musculoskeletal gait and station Overall: normal station 01/13/2016 None Full Exam - General 1994 Musculoskeletal head and neck Overall: head atraumatic 01/13/2016 None Full Exam - General 1994 Neurologic mental status Overall: alert 01/13/2016 None Full Exam - General 1994 Neurologic mental status Overall: oriented 01/13/2016 None Full Exam - General 1994 Neurologic gait Overall: no ataxia, no unsteadiness 01/13/2016 None Full Exam - General 1994 Neurologic cranial nerves Overall: crainial nerves 2 - 12 grossly intact 01/13/2016 None Full Exam - General 1994 Psychiatric orientation/consciousness Overall: oriented to person, place and time 01/13/2016 None Full Exam - General 1994 Psychiatric mood and affect Overall: normal mood and affect 01/13/2016 None Full Exam - General 1994 Psychiatric appearance Overall: well-groomed, good eye contact 01/13/2016 None Full Exam - General 1994 Constitutional general appearance Development: well developed 09/27/2015 None Full Exam - General 1994 Constitutional general appearance Development: appears stated age 0509/27/2015 None Full Exam - General 1994 Constitutional general appearance Stature/Body Habitus: normal body habitus 09/27/2015 None Full Exam - General 1994 Constitutional general appearance Nourishment: well nourished 09/27/2015 None Full Exam - General 1994 Constitutional general appearance Nourishment: obese 09/27/2015 None Full Exam - General 1994 Constitutional general appearance Evidence of Distress: in no acute distress 09/27/2015 None Full Exam - General 1994 Eyes conjunctiva /eyelids Overall: conjunctiva clear 09/27/2015 None Full Exam - General 1994 Eyes conjunctiva /eyelids Overall: cornea clear 09/27/2015 None Full Exam - General 1994 Eyes conjunctiva /eyelids Overall: eyelids normal 09/27/2015 None Full Exam - General 1994 Eyes pupils and irises Overall: pupils equal, round, reactive to light and accomodation 09/27/2015 None Full Exam - General 1994 Ears/Nose/Throat otoscopic exam Overall: external auditory canals clear 09/27/2015 None Full Exam - General 1994 Ears/Nose/Throat otoscopic exam Overall: tympanic membranes clear 09/27/2015 None Full Exam - General 1994 Ears/Nose/Throat lips/teeth/gingiva Overall: benign lips 09/27/2015 None Full Exam - General 1994 Ears/Nose/Throat lips/teeth/gingiva Overall: normal dentition 09/27/2015 None Full Exam - General 1994 Ears/Nose/Throat oral cavity/pharynx/larynx Overall: oral mucosa clear 09/27/2015 None Full Exam - General 1994 Respiratory auscultation Overall: breath sounds clear bilaterally 09/27/2015 None Full Exam - General 1994 Respiratory respiratory effort/rhythm Overall: no retractions 09/27/2015 None Full Exam - General 1994 Respiratory respiratory effort/rhythm Overall: normal rate 09/27/2015 None Full Exam - General 1994 Cardiovascular extremities Other findings: varicose veins 09/27/2015 bilat lower extremities Full Exam - General 1994 Cardiovascular auscultation of heart Overall: regular rate 09/27/2015 None Full Exam - General 1994 Cardiovascular auscultation of heart Overall: normal heart sounds 09/27/2015 None Full Exam - General 1994 Cardiovascular auscultation of heart Overall: no murmurs 09/27/2015 None Full Exam - General 1994 Musculoskeletal spine, ribs and pelvis Overall: good posture 09/27/2015 None Full Exam - General 1994 Musculoskeletal spine, ribs and pelvis Posture: a normal exam 09/27/2015 None Full Exam - General 1994 Musculoskeletal gait and station Overall: normal gait 09/27/2015 None Full Exam - General 1994 Musculoskeletal gait and station Overall: normal station 09/27/2015 None Full Exam - General 1994 Musculoskeletal head and neck Overall: head atraumatic 09/27/2015 None Full Exam - General 1994 Integument inspection of skin Overall: no rash, lesions 09/27/2015 None Full Exam - General 1994 Neurologic mental status Overall: alert 09/27/2015 None Full Exam - General 1994 Neurologic mental status Overall: oriented 09/27/2015 None Full Exam - General 1994 Neurologic gait Overall: no ataxia, no unsteadiness 09/27/2015 None Full Exam - General 1994 Neurologic cranial nerves Overall: crainial nerves 2 - 12 grossly intact 09/27/2015 None Full Exam - General 1994 Psychiatric orientation/consciousness Overall: oriented to person, place and time 09/27/2015 None Full Exam - General 1994 Psychiatric mood and affect Overall: normal mood and affect 09/27/2015 None Full Exam - General 1994 Psychiatric appearance Overall: well-groomed, good eye contact 09/27/2015 None Full Exam - General 1994 Constitutional general appearance Development: well developed 08/30/2015 None Full Exam - General 1994 Constitutional general appearance Development: appears stated age 0408/30/2015 None Full Exam - General 1994 Constitutional general appearance Nourishment: well nourished 08/30/2015 None Full Exam - General 1994 Constitutional general appearance Nourishment: obese 08/30/2015 None Full Exam - General 1994 Constitutional general appearance Evidence of Distress: in no acute distress 08/30/2015 None Full Exam - General 1994 Eyes conjunctiva /eyelids Overall: conjunctiva clear 08/30/2015 None Full Exam - General 1994 Eyes conjunctiva /eyelids Overall: cornea clear 08/30/2015 None Full Exam - General 1994 Eyes conjunctiva /eyelids Overall: eyelids normal 08/30/2015 None Full Exam - General 1994 Eyes pupils and irises Overall: pupils equal, round, reactive to light and accomodation 08/30/2015 None Full Exam - General 1994 Ears/Nose/Throat otoscopic exam Overall: external auditory canals clear 08/30/2015 None Full Exam - General 1994 Ears/Nose/Throat otoscopic exam Overall: tympanic membranes clear 08/30/2015 None Full Exam - General 1994 Ears/Nose/Throat lips/teeth/gingiva Overall: benign lips 08/30/2015 None Full Exam - General 1994 Ears/Nose/Throat lips/teeth/gingiva Overall: normal dentition 08/30/2015 None Full Exam - General 1994 Ears/Nose/Throat oral cavity/pharynx/larynx Overall: oral mucosa clear 08/30/2015 None Full Exam - General 1994 Respiratory auscultation Overall: breath sounds clear bilaterally 08/30/2015 None Full Exam - General 1994 Respiratory respiratory effort/rhythm Overall: no retractions 08/30/2015 None Full Exam - General 1994 Respiratory respiratory effort/rhythm Overall: normal rate 08/30/2015 None Full Exam - General 1994 Cardiovascular auscultation of heart Overall: regular rate 08/30/2015 None Full Exam - General 1994 Cardiovascular auscultation of heart Overall: normal heart sounds 08/30/2015 None Full Exam - General 1994 Musculoskeletal spine, ribs and pelvis Overall: good posture 08/30/2015 None Full Exam - General 1994 Musculoskeletal gait and station Overall: normal gait 08/30/2015 None Full Exam - General 1994 Musculoskeletal gait and station Overall: normal station 08/30/2015 None Full Exam - General 1994 Musculoskeletal head and neck Overall: head atraumatic 08/30/2015 None Full Exam - General 1994 Integument inspection of skin Overall: no rash, lesions 08/30/2015 None Full Exam - General 1994 Neurologic mental status Overall: alert 08/30/2015 None Full Exam - General 1994 Neurologic mental status Overall: oriented 08/30/2015 None Full Exam - General 1994 Neurologic gait Overall: no ataxia, no unsteadiness 08/30/2015 None Full Exam - General 1994 Neurologic cranial nerves Overall: crainial nerves 2 - 12 grossly intact 08/30/2015 None Full Exam - General 1994 Psychiatric orientation/consciousness Overall: oriented to person, place and time 08/30/2015 None Full Exam - General 1994 Psychiatric mood and affect Overall: normal mood and affect 08/30/2015 None Full Exam - General 1994 Psychiatric appearance Overall: well-groomed, good eye contact 08/30/2015 None Full Exam - General 1994 Musculoskeletal lower extremity ROM - knee: crepitus 08/30/2015 None Full Exam - General 1994 Musculoskeletal lower extremity ROM - knee: pain with flexion 08/30/2015 None Full Exam - General 1994 Constitutional general appearance Development: well developed 08/16/2015 None Full Exam - General 1994 Constitutional general appearance Development: appears stated age 0408/16/2015 None Full Exam - General 1994 Constitutional general appearance Stature/Body Habitus: normal body habitus 08/16/2015 None Full Exam - General 1994 Constitutional general appearance Nourishment: well nourished 08/16/2015 None Full Exam - General 1994 Constitutional general appearance Nourishment: obese 08/16/2015 None Full Exam - General 1994 Constitutional general appearance Evidence of Distress: in no acute distress 08/16/2015 None Full Exam - General 1994 Eyes conjunctiva /eyelids Overall: conjunctiva clear 08/16/2015 None Full Exam - General 1994 Eyes conjunctiva /eyelids Overall: cornea clear 08/16/2015 None Full Exam - General 1994 Eyes conjunctiva /eyelids Overall: eyelids normal 08/16/2015 None Full Exam - General 1994 Eyes pupils and irises Overall: pupils equal, round, reactive to light and accomodation 08/16/2015 None Full Exam - General 1994 Ears/Nose/Throat otoscopic exam Overall: external auditory canals clear 08/16/2015 None Full Exam - General 1994 Ears/Nose/Throat otoscopic exam Overall: tympanic membranes clear 08/16/2015 None Full Exam - General 1994 Ears/Nose/Throat lips/teeth/gingiva Overall: benign lips 08/16/2015 None Full Exam - General 1994 Ears/Nose/Throat lips/teeth/gingiva Overall: normal dentition 08/16/2015 None Full Exam - General 1994 Ears/Nose/Throat oral cavity/pharynx/larynx Overall: oral mucosa clear 08/16/2015 None Full Exam - General 1994 Respiratory auscultation Overall: breath sounds clear bilaterally 08/16/2015 None Full Exam - General 1994 Respiratory respiratory effort/rhythm Overall: no retractions 08/16/2015 None Full Exam - General 1994 Respiratory respiratory effort/rhythm Overall: normal rate 08/16/2015 None Full Exam - General 1994 Cardiovascular extremities Other findings: varicose veins 08/16/2015 bilat lower extremities Full Exam - General 1994 Cardiovascular auscultation of heart Overall: regular rate 08/16/2015 None Full Exam - General 1994 Cardiovascular auscultation of heart Overall: normal heart sounds 08/16/2015 None Full Exam - General 1994 Musculoskeletal spine, ribs and pelvis Posture: a normal exam 08/16/2015 None Full Exam - General 1994 Musculoskeletal gait and station Overall: normal gait 08/16/2015 None Full Exam - General 1994 Musculoskeletal gait and station Overall: normal station 08/16/2015 None Full Exam - General 1994 Musculoskeletal head and neck Overall: head atraumatic 08/16/2015 None Full Exam - General 1994 Integument inspection of skin Overall: no rash, lesions 08/16/2015 None Full Exam - General 1994 Neurologic mental status Overall: alert 08/16/2015 None Full Exam - General 1994 Neurologic mental status Overall: oriented 08/16/2015 None Full Exam - General 1994 Neurologic gait Overall: no ataxia, no unsteadiness 08/16/2015 None Full Exam - General 1994 Neurologic cranial nerves Overall: crainial nerves 2 - 12 grossly intact 08/16/2015 None Full Exam - General 1994 Psychiatric orientation/consciousness Overall: oriented to person, place and time 08/16/2015 None Full Exam - General 1994 Psychiatric mood and affect Overall: normal mood and affect 08/16/2015 None Full Exam - General 1994 Psychiatric appearance Overall: well-groomed, good eye contact 08/16/2015 None Full Exam - General 1994 Cardiovascular auscultation of heart Overall: no murmurs 08/16/2015 None Full Exam - General 1994 Musculoskeletal spine, ribs and pelvis Overall: good posture 08/16/2015 None Full Exam - General 1994 Constitutional general appearance Development: well developed 07/15/2015 None Full Exam - General 1994 Constitutional general appearance Development: appears stated age 0307/15/2015 None Full Exam - General 1994 Constitutional general appearance Stature/Body Habitus: normal body habitus 07/15/2015 None Full Exam - General 1994 Constitutional general appearance Nourishment: well nourished 07/15/2015 None Full Exam - General 1994 Constitutional general appearance Nourishment: obese 07/15/2015 None Full Exam - General 1994 Constitutional general appearance Evidence of Distress: in no acute distress 07/15/2015 None Full Exam - General 1994 Eyes conjunctiva /eyelids Overall: conjunctiva clear 07/15/2015 None Full Exam - General 1994 Eyes pupils and irises Overall: pupils equal, round, reactive to light and accomodation 07/15/2015 None Full Exam - General 1994 Respiratory auscultation Overall: breath sounds clear bilaterally 07/15/2015 None Full Exam - General 1994 Respiratory respiratory effort/rhythm Overall: no retractions 07/15/2015 None Full Exam - General 1994 Respiratory respiratory effort/rhythm Overall: normal rate 07/15/2015 None Full Exam - General 1994 Cardiovascular extremities Other findings: varicose veins 07/15/2015 bilat lower extremities Full Exam - General 1994 Cardiovascular auscultation of heart Overall: regular rate 07/15/2015 None Full Exam - General 1994 Cardiovascular auscultation of heart Overall: normal heart sounds 07/15/2015 None Full Exam - General 1994 Cardiovascular auscultation of heart Overall: no murmurs 07/15/2015 None Full Exam - General 1994 Neurologic cranial nerves Overall: crainial nerves 2 - 12 grossly intact 07/15/2015 None Full Exam - General 1994 Psychiatric orientation/consciousness Overall: oriented to person, place and time 07/15/2015 None Full Exam - General 1994 Psychiatric mood and affect Overall: normal mood and affect 07/15/2015 None Full Exam - General 1994 Psychiatric mood and affect Mood: happy 07/15/2015 None Full Exam - General 1994 Eyes conjunctiva /eyelids Overall: cornea clear 07/15/2015 None Full Exam - General 1994 Eyes conjunctiva /eyelids Overall: eyelids normal 07/15/2015 None Full Exam - General 1994 Ears/Nose/Throat otoscopic exam Overall: external auditory canals clear 07/15/2015 None Full Exam - General 1994 Ears/Nose/Throat otoscopic exam Overall: tympanic membranes clear 07/15/2015 None Full Exam - General 1994 Ears/Nose/Throat hearing assessment Overall: hearing intact bilaterally 07/15/2015 None Full Exam - General 1994 Ears/Nose/Throat internal nose Overall: bilateral nasal cavities clear 07/15/2015 None Full Exam - General 1994 Ears/Nose/Throat lips/teeth/gingiva Overall: benign lips 07/15/2015 None Full Exam - General 1994 Ears/Nose/Throat lips/teeth/gingiva Overall: normal dentition 07/15/2015 None Full Exam - General 1994 Ears/Nose/Throat lips/teeth/gingiva Overall: benign gingiva 07/15/2015 None Full Exam - General 1994 Ears/Nose/Throat lips/teeth/gingiva Overall: no masses 07/15/2015 None Full Exam - General 1994 Ears/Nose/Throat oral cavity/pharynx/larynx Overall: oral mucosa clear 07/15/2015 None Full Exam - General 1994 Ears/Nose/Throat oral cavity/pharynx/larynx Overall: oropharyngeal mucosa clear 07/15/2015 None Full Exam - General 1994 Cardiovascular inspection of pedal pulses Dorsalis pedis: a normal exam 07/15/2015 None Full Exam - General 1994 Lymphatic neck nodes Overall: anterior cervical chain benign 07/15/2015 None Full Exam - General 1994 Lymphatic neck nodes Overall: posterior cervical chain benign 07/15/2015 None Full Exam - General 1994 Musculoskeletal spine, ribs and pelvis Overall: ribs benign 07/15/2015 None Full Exam - General 1994 Musculoskeletal spine, ribs and pelvis Posture: a normal exam 07/15/2015 None Full Exam - General 1994 Musculoskeletal spine, ribs and pelvis Ribs: a normal exam 07/15/2015 None Full Exam - General 1994 Musculoskeletal spine, ribs and pelvis Spine: normal straight leg raise 07/15/2015 None Full Exam - General 1994 Musculoskeletal gait and station Overall: normal gait 07/15/2015 None Full Exam - General 1994 Musculoskeletal gait and station Overall: normal station 07/15/2015 None Full Exam - General 1994 Musculoskeletal head and neck Overall: head atraumatic 07/15/2015 None Full Exam - General 1994 Musculoskeletal head and neck Overall: TMJ benign 07/15/2015 None Full Exam - General 1994 Musculoskeletal head and neck Overall: cervical spine benign 07/15/2015 None Full Exam - General 1994 Integument inspection of skin Overall: few scattered moles, no gross abnormalities 07/15/2015 None Full Exam - General 1994 Integument inspection of skin Overall: no rash, lesions 07/15/2015 None Full Exam - General 1994 Neurologic mental status Overall: alert 07/15/2015 None Full Exam - General 1994 Neurologic mental status Overall: oriented 07/15/2015 None Full Exam - General 1994 Neurologic gait Overall: no ataxia, no unsteadiness 07/15/2015 None Full Exam - General 1994 Psychiatric appearance Overall: well-groomed, good eye contact 07/15/2015 None Full Exam - General 1994 Abdomen abdominal exam Overall: no tenderness 07/15/2015 None Full Exam - General 1994 Abdomen abdominal exam Overall: normal bowel sounds 07/15/2015 None Full Exam - General 1994 Constitutional general appearance Development: well developed 06/16/2015 None Full Exam - General 1994 Constitutional general appearance Development: appears stated age 0206/16/2015 None Full Exam - General 1994 Constitutional general appearance Stature/Body Habitus: normal body habitus 06/16/2015 None Full Exam - General 1994 Constitutional general appearance Nourishment: well nourished 06/16/2015 None Full Exam - General 1994 Constitutional general appearance Nourishment: obese 06/16/2015 None Full Exam - General 1994 Constitutional general appearance Evidence of Distress: in no acute distress 06/16/2015 None Full Exam - General 1994 Eyes pupils and irises Overall: pupils equal, round, reactive to light and accomodation 06/16/2015 None Full Exam - General 1994 Eyes conjunctiva /eyelids Overall: conjunctiva clear 06/16/2015 None Full Exam - General 1994 Respiratory auscultation Overall: breath sounds clear bilaterally 06/16/2015 None Full Exam - General 1994 Respiratory respiratory effort/rhythm Overall: no retractions 06/16/2015 None Full Exam - General 1994 Respiratory respiratory effort/rhythm Overall: normal rate 06/16/2015 None Full Exam - General 1994 Cardiovascular extremities Other findings: varicose veins 06/16/2015 bilat lower extremities Full Exam - General 1994 Cardiovascular auscultation of heart Overall: regular rate 06/16/2015 None Full Exam - General 1994 Cardiovascular auscultation of heart Overall: normal heart sounds 06/16/2015 None Full Exam - General 1994 Cardiovascular auscultation of heart Overall: no murmurs 06/16/2015 None Full Exam - General 1994 Psychiatric orientation/consciousness Overall: oriented to person, place and time 06/16/2015 None Full Exam - General 1994 Psychiatric mood and affect Mood: happy 06/16/2015 None Full Exam - General 1994 Psychiatric mood and affect Overall: normal mood and affect 06/16/2015 None Full Exam - General 1994 Neurologic cranial nerves Overall: crainial nerves 2 - 12 grossly intact 06/16/2015 None Full Exam - General 1994 Constitutional general appearance Development: well developed 04/02/2015 None Full Exam - General 1994 Constitutional general appearance Development: appears stated age 1104/02/2015 None Full Exam - General 1994 Constitutional general appearance Stature/Body Habitus: normal body habitus 04/02/2015 None Full Exam - General 1994 Constitutional general appearance Nourishment: well nourished 04/02/2015 None Full Exam - General 1994 Constitutional general appearance Nourishment: obese 04/02/2015 None Full Exam - General 1994 Constitutional general appearance Evidence of Distress: in no acute distress 04/02/2015 None Full Exam - General 1994 Eyes conjunctiva /eyelids Overall: conjunctiva clear 04/02/2015 None Full Exam - General 1994 Eyes conjunctiva /eyelids Overall: cornea clear 04/02/2015 None Full Exam - General 1994 Eyes conjunctiva /eyelids Overall: eyelids normal 04/02/2015 None Full Exam - General 1994 Eyes pupils and irises Overall: pupils equal, round, reactive to light and accomodation 04/02/2015 None Full Exam - General 1994 Ears/Nose/Throat otoscopic exam Overall: external auditory canals clear 04/02/2015 None Full Exam - General 1994 Ears/Nose/Throat otoscopic exam Overall: tympanic membranes clear 04/02/2015 None Full Exam - General 1994 Ears/Nose/Throat hearing assessment Overall: hearing intact bilaterally 04/02/2015 None Full Exam - General 1994 Ears/Nose/Throat internal nose Overall: bilateral nasal cavities clear 04/02/2015 None Full Exam - General 1994 Ears/Nose/Throat lips/teeth/gingiva Overall: benign lips 04/02/2015 None Full Exam - General 1994 Ears/Nose/Throat lips/teeth/gingiva Overall: normal dentition 04/02/2015 None Full Exam - General 1994 Ears/Nose/Throat lips/teeth/gingiva Overall: benign gingiva 04/02/2015 None Full Exam - General 1994 Ears/Nose/Throat lips/teeth/gingiva Overall: no masses 04/02/2015 None Full Exam - General 1994 Ears/Nose/Throat oral cavity/pharynx/larynx Overall: oral mucosa clear 04/02/2015 None Full Exam - General 1994 Ears/Nose/Throat oral cavity/pharynx/larynx Overall: oropharyngeal mucosa clear 04/02/2015 None Full Exam - General 1994 Neck inspection of neck Overall: normal size 04/02/2015 None Full Exam - General 1994 Neck inspection of neck Overall: normal appearance 04/02/2015 None Full Exam - General 1994 Neck inspection of neck Overall: no masses 04/02/2015 None Full Exam - General 1994 Respiratory auscultation Overall: breath sounds clear bilaterally 04/02/2015 None Full Exam - General 1994 Respiratory respiratory effort/rhythm Overall: no retractions 04/02/2015 None Full Exam - General 1994 Respiratory respiratory effort/rhythm Overall: normal rate 04/02/2015 None Full Exam - General 1994 Cardiovascular inspection of pedal pulses Dorsalis pedis: a normal exam 04/02/2015 None Full Exam - General 1994 Cardiovascular extremities Other findings: varicose veins 04/02/2015 bilat lower extremities Full Exam - General 1994 Lymphatic neck nodes Overall: anterior cervical chain benign 04/02/2015 None Full Exam - General 1994 Lymphatic neck nodes Overall: posterior cervical chain benign 04/02/2015 None Full Exam - General 1994 Musculoskeletal spine, ribs and pelvis Overall: ribs benign 04/02/2015 None Full Exam - General 1994 Musculoskeletal spine, ribs and pelvis Posture: a normal exam 04/02/2015 None Full Exam - General 1994 Musculoskeletal spine, ribs and pelvis Ribs: a normal exam 04/02/2015 None Full Exam - General 1994 Musculoskeletal spine, ribs and pelvis Spine: normal straight leg raise 04/02/2015 None Full Exam - General 1994 Musculoskeletal gait and station Overall: normal gait 04/02/2015 None Full Exam - General 1994 Musculoskeletal gait and station Overall: normal station 04/02/2015 None Full Exam - General 1994 Musculoskeletal head and neck Overall: head atraumatic 04/02/2015 None Full Exam - General 1994 Musculoskeletal head and neck Overall: TMJ benign 04/02/2015 None Full Exam - General 1994 Musculoskeletal head and neck Overall: cervical spine benign 04/02/2015 None Full Exam - General 1994 Integument inspection of skin Overall: few scattered moles, no gross abnormalities 04/02/2015 None Full Exam - General 1994 Integument inspection of skin Overall: no rash, lesions 04/02/2015 None Full Exam - General 1994 Neurologic mental status Overall: alert 04/02/2015 None Full Exam - General 1994 Neurologic mental status Overall: oriented 04/02/2015 None Full Exam - General 1994 Neurologic gait Overall: no ataxia, no unsteadiness 04/02/2015 None Full Exam - General 1994 Psychiatric orientation/consciousness Overall: oriented to person, place and time 04/02/2015 None Full Exam - General 1994 Psychiatric mood and affect Overall: normal mood and affect 04/02/2015 None Full Exam - General 1994 Psychiatric appearance Overall: well-groomed, good eye contact 04/02/2015 None Full Exam - General 1994 Psychiatric orientation/consciousness Overall: oriented to person, place and time 12/02/2014 None Full Exam - General 1994 Psychiatric mood and affect Overall: normal mood and affect 12/02/2014 None Full Exam - General 1994 Psychiatric appearance Overall: well-groomed, good eye contact 12/02/2014 None Full Exam - General 1994 Neurologic gait Overall: no ataxia, no unsteadiness 12/02/2014 None Full Exam - General 1994 Neurologic mental status Overall: alert 12/02/2014 None Full Exam - General 1994 Neurologic mental status Overall: oriented 12/02/2014 None Full Exam - General 1994 Integument inspection of skin Overall: few scattered moles, no gross abnormalities 12/02/2014 None Full Exam - General 1994 Integument inspection of skin Overall: no rash, lesions 12/02/2014 None Full Exam - General 1994 Musculoskeletal head and neck Overall: head atraumatic 12/02/2014 None Full Exam - General 1994 Musculoskeletal head and neck Overall: TMJ benign 12/02/2014 None Full Exam - General 1994 Musculoskeletal head and neck Overall: cervical spine benign 12/02/2014 None Full Exam - General 1994 Musculoskeletal gait and station Overall: normal gait 12/02/2014 None Full Exam - General 1994 Musculoskeletal gait and station Overall: normal station 12/02/2014 None Full Exam - General 1994 Musculoskeletal spine, ribs and pelvis Overall: ribs benign 12/02/2014 None Full Exam - General 1994 Musculoskeletal spine, ribs and pelvis Spine: normal straight leg raise 12/02/2014 None Full Exam - General 1994 Musculoskeletal spine, ribs and pelvis Sacroiliac joints: tender right sacroiliac joint 12/02/2014 None Full Exam - General 1994 Musculoskeletal spine, ribs and pelvis Sacroiliac joints: tender left sacroiliac joint 12/02/2014 None Full Exam - General 1994 Musculoskeletal spine, ribs and pelvis Ribs: a normal exam 12/02/2014 None Full Exam - General 1994 Musculoskeletal spine, ribs and pelvis Posture: a normal exam 12/02/2014 None Full Exam - General 1994 Cardiovascular extremities Other findings: varicose veins 12/02/2014 bilat lower extremities Full Exam - General 1994 Cardiovascular inspection of pedal pulses Dorsalis pedis: a normal exam 12/02/2014 None Full Exam - General 1994 Lymphatic neck nodes Overall: anterior cervical chain benign 12/02/2014 None Full Exam - General 1994 Lymphatic neck nodes Overall: posterior cervical chain benign 12/02/2014 None Full Exam - General 1994 Respiratory respiratory effort/rhythm Overall: normal rate 12/02/2014 None Full Exam - General 1994 Respiratory respiratory effort/rhythm Overall: no retractions 12/02/2014 None Full Exam - General 1994 Respiratory auscultation Overall: breath sounds clear bilaterally 12/02/2014 None Full Exam - General 1994 Neck inspection of neck Overall: normal size 12/02/2014 None Full Exam - General 1994 Neck inspection of neck Overall: normal appearance 12/02/2014 None Full Exam - General 1994 Neck inspection of neck Overall: no masses 12/02/2014 None Full Exam - General 1994 Ears/Nose/Throat oral cavity/pharynx/larynx Overall: oral mucosa clear 12/02/2014 None Full Exam - General 1994 Ears/Nose/Throat oral cavity/pharynx/larynx Overall: oropharyngeal mucosa clear 12/02/2014 None Full Exam - General 1994 Ears/Nose/Throat lips/teeth/gingiva Overall: benign lips 12/02/2014 None Full Exam - General 1994 Ears/Nose/Throat lips/teeth/gingiva Overall: normal dentition 12/02/2014 None Full Exam - General 1994 Ears/Nose/Throat lips/teeth/gingiva Overall: benign gingiva 12/02/2014 None Full Exam - General 1994 Ears/Nose/Throat lips/teeth/gingiva Overall: no masses 12/02/2014 None Full Exam - General 1994 Ears/Nose/Throat internal nose Overall: bilateral nasal cavities clear 12/02/2014 None Full Exam - General 1994 Ears/Nose/Throat hearing assessment Overall: hearing intact bilaterally 12/02/2014 None Full Exam - General 1994 Ears/Nose/Throat otoscopic exam Overall: external auditory canals clear 12/02/2014 None Full Exam - General 1994 Ears/Nose/Throat otoscopic exam Overall: tympanic membranes clear 12/02/2014 None Full Exam - General 1994 Eyes conjunctiva /eyelids Overall: conjunctiva clear 12/02/2014 None Full Exam - General 1994 Eyes conjunctiva /eyelids Overall: cornea clear 12/02/2014 None Full Exam - General 1994 Eyes conjunctiva /eyelids Overall: eyelids normal 12/02/2014 None Full Exam - General 1994 Eyes pupils and irises Overall: pupils equal, round, reactive to light and accomodation 12/02/2014 None Full Exam - General 1994 Constitutional general appearance Evidence of Distress: in no acute distress 12/02/2014 None Full Exam - General 1994 Constitutional general appearance Nourishment: well nourished 12/02/2014 None Full Exam - General 1994 Constitutional general appearance Nourishment: obese 12/02/2014 None Full Exam - General 1994 Constitutional general appearance Stature/Body Habitus: normal body habitus 12/02/2014 None Full Exam - General 1994 Constitutional general appearance Development: well developed 12/02/2014 None Full Exam - General 1994 Constitutional general appearance Development: appears stated age 0712/02/2014 None Procedures Procedure Codes Date THER/PROPH/DIAG INJ SC/IM CPT-4: 52465 06/27/2017 ROCEPHIN, PER 250 MG CPT-4: J0696 06/27/2017 IMMUNIZATION ADMIN CPT -4: 13826 03/16/2017 FLU VAC NO PRSV 4 FLETCHER 3 YRS+ CPT-4: 34568 03/16/2017 Pneumococcal Polysaccharide Vaccine, 23-Valent, Ad CPT-4: 36040 03/16/2017 IMMUNIZATION ADMIN EACH ADD CPT-4: 43294 03/16/2017 TRIAMCINOLONE ACET INJ NOS CPT-4: J3301 01/11/2017 TRIAMCINOLONE ACET INJ NOS CPT-4: J3301 02/28/2016 Vital Signs Date Vital 06/27/2017 Blood Pressure 1: 128/80 Code : 8480-6 BMI: 33.9 Code : 87397-3 Heart Rate 1 : 85 bpm Height: 5'6" SpO2: 98% Temperature: 36.6 (C) / 97.8 (F) Weight: 210 lbs 05/29/2017 Blood Pressure 1: 136/82 Code : 8480-6 Heart Rate 1: 101 bpm Height: 5'6" SpO2: 96% Weight: 05/21/2017 Blood Pressure 1: 144/74 Code : 8480-6 Heart Rate 1: 112 bpm Height: 5'6" SpO2: 94% Temperature: 36.7 (C) / 98.1 (F) Weight: 04/20/2017 Blood Pressure 1: 12674 Code : 8480-6 BMI: 39.9 Code : 27908-1 Heart Rate 1 : 79 bpm Height: 5'6" SpO2: 97% Weight: 247 lbs 01/26/2017 Blood Pressure 1: 13274 Code : 8480-6 BMI: 37.8 Code : 74618-1 Heart Rate 1 : 74 bpm Height: 5'6" SpO2: 97% Weight: 234 lbs 01/11/2017 Blood Pressure 1: 118/68 Code : 8480-6 BMI: 38.7 Code : 09288-6 Heart Rate 1 : 91 bpm Height: 5'6" SpO2: 96% Weight: 240 lbs 11/30/2016 Blood Pressure 1: 132/76 Code : 8480-6 BMI: 38.3 Code : 32451-4 Heart Rate 1 : 71 bpm Height: 5'6" SpO2: 92% Weight: 237 lbs 09/28/2016 Blood Pressure 1: 122/72 Code : 8480-6 BMI: 39.1 Code : 22725-9 Heart Rate 1 : 88 bpm Height: 5'6" SpO2: 94% Weight: 242 lbs 08/24/2016 Blood Pressure 1: 130/87 Code : 8480-6 BMI: 41.5 Code : 08239-3 Heart Rate 1 : 95 bpm Height: 5'6" Respiratory Rate: 16 bpm SpO2: 98% Temperature: 36.9 (C) / 98.5 (F ) Weight: 257 lbs 07/13/2016 Blood Pressure 1: 132/84 Code : 8480-6 BMI: 42.0 Code : 31918-8 Heart Rate 1 : 73 bpm Height: 5'6" SpO2: 97% Weight: 260 lbs 05/19/2016 Blood Pressure 1: 138/76 Code : 8480-6 BMI: 40.8 Code : 95652-4 Heart Rate 1 : 80 bpm Height: 5'6" SpO2: 98% Weight: 253 lbs 03/16/2016 Blood Pressure 1: 122/70 Code : 8480-6 BMI: 40.4 Code : 37164-2 Heart Rate 1 : 72 bpm Height: 5'6" SpO2: 98% Weight: 250 lbs 02/28/2016 Blood Pressure 1: 136/86 Code : 8480-6 BMI: 40.2 Code : 88369-8 Heart Rate 1 : 87 bpm Height: 5'6" SpO2: 96% Temperature: 36.3 (C) / 97.3 (F) Weight: 249 lbs 01/13/2016 Blood Pressure 1: 120/76 Code : 8480-6 BMI: 40.4 Code : 06379-8 Heart Rate 1 : 68 bpm Height: 5'6" SpO2: 97% Weight: 250 lbs 09/27/2015 Blood Pressure 1: 112/70 Code : 8480-6 BMI: 38.4 Code : 10877-8 Heart Rate 1 : 76 bpm Height: 5'6" SpO2: 98% Weight: 238 lbs 08/30/2015 Blood Pressure 1: 144/82 Code : 8480-6 BMI: 39.5 Code : 65664-7 Heart Rate 1 : 82 bpm Height: 5'6" SpO2: 97% Weight: 245 lbs 08/16/2015 Blood Pressure 1: 140/72 Code : 8480-6 BMI: 38.9 Code : 06974-9 Heart Rate 1 : 72 bpm Height: 5'6" SpO2: 97% Weight: 241 lbs 07/15/2015 Blood Pressure 1: 128/80 Code : 8480-6 BMI: 39.3 Code : 97973-4 Heart Rate 1 : 86 bpm Height: 5'6" SpO2: 98% Weight: 243 lbs 8 oz 06/16/2015 Blood Pressure 1: 146/86 Code : 8480-6 BMI: 39.6 Code : 02890-4 Heart Rate 1 : 76 bpm Height: 5'6" SpO2: 97% Weight: 245 lbs 8 oz 04/02/2015 Blood Pressure 1: 132/86 Code : 8480-6 BMI: 40.7 Code : 90335-6 Heart Rate 1 : 94 bpm Height: 5'6" SpO2: 98% Weight: 252 lbs 12/02/2014 Blood Pressure 1: 122/90 Code : 8480-6 BMI: 41.6 Code : 43256-1 Heart Rate 1 : 77 bpm Height: 5'6" SpO2: 95% Weight: 258 lbs Functional Status No Functional Status data History of Present Illness Symptom Name Status Result Effective Date Notes sore throat Location diffusely 06/27/2017 None sore throat Quality aching 06/27/2017 None sore throat Onset and Resolution ongoing 06/27/2017 None sore throat Pertinent Findings decreased energy level 06/27/2017 None sore throat Pertinent Findings cough 06/27/2017 None sore throat Pertinent Findings Denies fever 06/27/2017 None sore throat Pertinent Findings hoarseness 06/27/2017 None sore throat Pertinent Findings lymphadenopathy 06/27/2017 None sore throat Pertinent Findings Denies nasal congestion 06/27/2017 None sore throat Triggers no known associated factors 06/27/2017 None sore throat Limitation on Activities does not limit oral intake 06/27/2017 None hypertension Pertinent Findings dizziness 05/29/2017 at night hypertension Pertinent Findings dyspnea 05/29/2017 with exertion hypertension Pertinent Findings edema 05/29/2017 None hypertension Pertinent Findings palpitations 05/29/2017 -will resolve if she takes a xanax hypertension Quality primary hypertension 05/29/2017 None hypertension Onset and Resolution ongoing 05/29/2017 None hypertension Onset of Symptom during adulthood 05/29/2017 None hypertension Blood Pressure Values patient checking blood pressure at home - did not bring in readings 05/29/2017 None erythema Location-Major on the fingers 05/29/2017 None erythema Location-Extremities on the right (index) finger 05/29/2017 None erythema Quality acute 05/29/2017 None erythema Color red None erythema Quality painful 05/29/2017 None erythema Onset and Resolution sudden in onset 05/29/2017 None erythema Triggers no known triggers 05/29/2017 None hypertension Quality primary hypertension 05/21/2017 None hypertension Onset and Resolution ongoing 05/21/2017 None hypertension Onset of Symptom during adulthood 05/21/2017 None hypertension Pertinent Findings Denies dizziness 05/21/2017 None hypertension Pertinent Findings Denies dyspnea 05/21/2017 None hypertension Pertinent Findings tachycardia 05/21/2017 None hypertension Pertinent Findings palpitations 05/21/2017 None foot pain Location on the right 04/20/2017 None foot pain Location achilles tendon 04/20/2017 None foot pain Quality tenderness 04/20/2017 None foot pain Quality constant 04/20/2017 None foot pain Quality stable 04/20/2017 None foot pain Onset and Resolution sudden in onset 04/20/2017 None foot pain Onset of Symptom 3 weeks ago 04/20/2017 None foot pain Frequency of Episodes daily 04/20/2017 None skin lesion Onset and Resolution sudden in onset 01/26/2017 None skin lesion Onset of Symptom 2 years ago 01/26/2017 None skin lesion Pertinent Findings Denies fever 01/26/2017 None skin lesion Location right lower leg 01/26/2017 None skin lesion Quality erythematous 01/26/2017 None skin lesion Quality pearly 01/26/2017 None cough Onset and Resolution resolved 01/26/2017 None cough Location in the lung 01/11/2017 None cough Quality acute None cough Quality hacking 01/11/2017 None cough Quality productive 01/11/2017 None cough Quality interrupts sleep 01/11/2017 None cough Onset and Resolution ongoing 01/11/2017 None cough Onset of Symptom 1 weeks ago 01/11/2017 None cough Limitation on Activities moderately limits activities 01/11/2017 None cough Significant Medications albuterol 01/11/2017 None cough Pertinent Findings Denies chills 01/11/2017 None cough Pertinent Findings Denies fever 01/11/2017 None cough Alleviating Factors inhaled medications 01/11/2017 None insomnia Quality disrupted sleep 11/30/2016 None insomnia Quality early awakening 11/30/2016 None insomnia Onset and Resolution ongoing 11/30/2016 None insomnia Onset of Symptom _ years ago 11/30/2016 None insomnia Severity moderate 11/30/2016 None insomnia Frequency of Episodes increasing 11/30/2016 None pain, generalized Location diffusely 11/30/2016 None pain, generalized Quality chronic 11/30/2016 None pain, generalized Onset and Resolution ongoing 11/30/2016 None pain, generalized Triggers no known associated factors 11/30/2016 None pain, generalized Pertinent Findings muscle cramping 11/30/2016 None insomnia Quality disrupted sleep 09/28/2016 None insomnia Quality early awakening 09/28/2016 None insomnia Onset and Resolution ongoing 09/28/2016 None insomnia Onset of Symptom _ years ago 09/28/2016 None insomnia Severity moderate 09/28/2016 None insomnia Frequency of Episodes increasing 09/28/2016 None depression Quality intermittent 08/24/2016 None depression Onset and Resolution improved during the day 08/24/2016 None depression Onset and Resolution ongoing 08/24/2016 None depression Onset of Symptom months ago 08/24/2016 None depression Frequency of Episodes daily 08/24/2016 None depression Pertinent Findings anxiety 08/24/2016 None myalgias Location diffusely 08/24/2016 None myalgias Location on both legs 08/24/2016 None myalgias Location on both arms 08/24/2016 None myalgias Quality cramping 08/24/2016 None myalgias Quality intermittent 08/24/2016 None myalgias Onset and Resolution gradual in onset 08/24/2016 None myalgias Onset and Resolution ongoing 08/24/2016 None myalgias Onset of Symptom months ago 08/24/2016 None myalgias Pertinent Findings insomnia 08/24/2016 None insomnia Quality disrupted sleep 08/24/2016 None insomnia Quality early awakening 08/24/2016 None insomnia Onset and Resolution ongoing 08/24/2016 None pain, generalized Location diffusely 08/24/2016 None pain, generalized Quality chronic 08/24/2016 None pain, generalized Onset and Resolution ongoing 08/24/2016 None pain, generalized Triggers no known associated factors 08/24/2016 None pain, generalized Pertinent Findings muscle cramping 08/24/2016 None depression Quality intermittent 07/13/2016 None depression Onset and Resolution improved during the day 07/13/2016 None depression Onset and Resolution ongoing 07/13/2016 None depression Onset of Symptom months ago 07/13/2016 None depression Frequency of Episodes daily 07/13/2016 None depression Pertinent Findings anxiety 07/13/2016 None myalgias Location diffusely 07/13/2016 None myalgias Quality cramping 07/13/2016 None myalgias Quality intermittent 07/13/2016 None myalgias Onset and Resolution gradual in onset 07/13/2016 None myalgias Onset and Resolution ongoing 07/13/2016 None myalgias Onset of Symptom months ago 07/13/2016 None myalgias Pertinent Findings insomnia 07/13/2016 None myalgias Location on both arms 07/13/2016 None myalgias Location on both legs 07/13/2016 None insomnia Quality disrupted sleep 07/13/2016 None insomnia Quality early awakening 07/13/2016 None insomnia Onset and Resolution ongoing 07/13/2016 None pain, generalized Location diffusely 07/13/2016 None pain, generalized Quality chronic 07/13/2016 None pain, generalized Onset and Resolution ongoing 07/13/2016 None pain, generalized Pertinent Findings muscle cramping 07/13/2016 None pain, generalized Triggers no known associated factors 07/13/2016 None myalgias Location diffusely 05/19/2016 None myalgias Quality cramping 05/19/2016 None myalgias Quality intermittent 05/19/2016 None myalgias Onset and Resolution gradual in onset 05/19/2016 None myalgias Onset and Resolution ongoing 05/19/2016 None myalgias Onset of Symptom 6-7 months ago 05/19/2016 None myalgias Pertinent Findings Denies fever 05/19/2016 None myalgias Pertinent Findings insomnia 05/19/2016 None insomnia Quality chronic 05/19/2016 None insomnia Quality worsening 05/19/2016 None insomnia Onset and Resolution ongoing 05/19/2016 None insomnia Pertinent Findings Denies dyspnea 05/19/2016 None anxiety Quality chronic 05/19/2016 None depression Quality intermittent 03/16/2016 None depression Onset and Resolution improved during the day 03/16/2016 None depression Onset and Resolution ongoing 03/16/2016 None depression Onset of Symptom months ago 03/16/2016 None depression Frequency of Episodes daily 03/16/2016 None depression Pertinent Findings anxiety 03/16/2016 None depression Pertinent Findings Denies depressed mood 03/16/2016 None depression Pertinent Findings Denies helplessness 03/16/2016 None depression Pertinent Findings Denies worthlessness 03/16/2016 None weight gain/obesity Location on the abdomen 03/16/2016 None weight gain/obesity Quality worsening 03/16/2016 None weight gain/obesity Onset and Resolution gradual in onset 03/16/2016 None weight gain/obesity Onset and Resolution ongoing 03/16/2016 None sore throat Location diffusely 02/28/2016 None sore throat Quality intermittent 02/28/2016 None sore throat Onset and Resolution sudden in onset 02/28/2016 None sore throat Onset of Symptom 3 days ago 02/28/2016 None sore throat Frequency of Episodes daily 02/28/2016 None sore throat Pertinent Findings cough 02/28/2016 None sore throat Pertinent Findings fever 02/28/2016 None sore throat Pertinent Findings Denies ill contacts 02/28/2016 None sore throat Triggers no known associated factors 02/28/2016 None depression Quality intermittent 01/13/2016 None depression Onset and Resolution improved during the day 01/13/2016 None depression Onset and Resolution ongoing 01/13/2016 None depression Onset of Symptom months ago 01/13/2016 None depression Frequency of Episodes daily 01/13/2016 None depression Pertinent Findings anxiety 01/13/2016 None depression Pertinent Findings Denies depressed mood 01/13/2016 None depression Pertinent Findings Denies helplessness 01/13/2016 None depression Pertinent Findings Denies worthlessness 01/13/2016 None weight gain/obesity Location on the abdomen 01/13/2016 None weight gain/obesity Quality worsening 01/13/2016 None weight gain/obesity Onset and Resolution ongoing 01/13/2016 None weight gain/obesity Onset and Resolution gradual in onset 01/13/2016 None medication follow up Location oral intake 01/13/2016 None medication follow up Additional Comments medication use 01/13/2016 None medication follow up Location oral intake 09/27/2015 None medication follow up Additional Comments medication use 09/27/2015 None medication follow up Quality chronic 09/27/2015 None depression Quality intermittent 09/27/2015 None depression Onset and Resolution ongoing 09/27/2015 None depression Onset and Resolution improved during the day 09/27/2015 None depression Onset of Symptom _ months ago 09/27/2015 None depression Frequency of Episodes daily 09/27/2015 None depression Pertinent Findings anxiety 09/27/2015 None depression Pertinent Findings Denies depressed mood 09/27/2015 None depression Pertinent Findings Denies helplessness 09/27/2015 None depression Pertinent Findings Denies worthlessness 09/27/2015 None palpitations Quality awareness of heartbeat 08/30/2015 None palpitations Quality intermittent 08/30/2015 None palpitations Quality rapid and regular beats 08/30/2015 None palpitations Onset and Resolution sudden in onset 08/30/2015 improved palpitations Onset of Symptom 1 months ago 08/30/2015 None palpitations Frequency of Episodes daily 08/30/2015 None palpitations Triggers stress 08/30/2015 None palpitations Pertinent Findings Denies dyspnea 08/30/2015 None palpitations Pertinent Findings Denies lightheadedness 08/30/2015 None palpitations Pertinent Findings Denies nausea 08/30/2015 None palpitations Pertinent Findings Denies syncope 08/30/2015 None knee pain Location on the right 08/30/2015 None knee pain Quality grinding 08/30/2015 None knee pain Quality acute 08/30/2015 None knee pain Quality chronic 08/30/2015 None knee pain Limitation on Activities does not limit activities 08/30/2015 None knee pain Severity moderate 08/30/2015 None knee pain Significant Medical Conditions obesity 08/30/2015 None knee pain Pertinent Findings pain with movement 08/30/2015 None palpitations Quality intermittent 08/16/2015 None palpitations Quality awareness of heartbeat 08/16/2015 None palpitations Quality rapid and regular beats 08/16/2015 None palpitations Onset and Resolution sudden in onset 08/16/2015 None palpitations Onset of Symptom 1 months ago 08/16/2015 None palpitations Frequency of Episodes daily 08/16/2015 None palpitations Triggers stress 08/16/2015 None palpitations Pertinent Findings Denies dyspnea 08/16/2015 None palpitations Pertinent Findings Denies nausea 08/16/2015 None palpitations Pertinent Findings Denies syncope 08/16/2015 None palpitations Pertinent Findings Denies lightheadedness 08/16/2015 None knee pain Location on the right 07/15/2015 hx of arthritis knee pain Quality sharp pain 07/15/2015 -jolting pains knee pain Limitation on Activities allows weight bearing activity 07/15/2015 None knee pain Limitation on Activities moderately limits activities 07/15/2015 None knee pain Severity moderate 07/15/2015 None knee pain Significant Medical Conditions degenerative joint disease 07/15/2015 None knee pain Significant Medical Conditions obesity 07/15/2015 None knee pain Significant Medications NSAID' s 07/15/2015 None knee pain Exacerbating Factors exertion 07/15/2015 None knee pain Pertinent Findings pain with movement 07/15/2015 is having trouble sleeping due to pain weight gain/obesity Onset and Resolution gradual in onset 07/15/2015 None weight gain/obesity Onset and Resolution ongoing 07/15/2015 None knee pain Quality intermittent 07/15/2015 None knee pain Timing of Episodes at night 07/15/2015 None knee pain Quality stable 07/15/2015 None lower leg pain Location on the left 07/15/2015 None lower leg pain Location on the right 07/15/2015 None lower leg pain Quality improving 07/15/2015 None cough Quality acute None cough Onset and Resolution sudden in onset 07/15/2015 None cough Quality intermittent 07/15/2015 None cough Quality productive 07/15/2015 clear sputum cough Onset of Symptom 1 days ago 07/15/2015 None cough Pertinent Findings Denies chills 07/15/2015 None cough Pertinent Findings Denies fever 07/15/2015 None sore throat Quality acute 07/15/2015 None sore throat Onset and Resolution sudden in onset 07/15/2015 None sore throat Onset of Symptom 1 days ago 07/15/2015 None weight gain/obesity Quality improving 07/15/2015 None knee pain Location on the right 06/16/2015 hx of arthritis knee pain Quality constant 06/16/2015 None knee pain Quality worsening 06/16/2015 None knee pain Limitation on Activities allows weight bearing activity 06/16/2015 None knee pain Limitation on Activities moderately limits activities 06/16/2015 None knee pain Severity moderate 06/16/2015 None knee pain Significant Medical Conditions degenerative joint disease 06/16/2015 None knee pain Significant Medical Conditions obesity 06/16/2015 None knee pain Significant Medications NSAID' s 06/16/2015 None knee pain Alleviating Factors NSAID's 06/16/2015 None knee pain Exacerbating Factors exertion 06/16/2015 None knee pain Pertinent Findings pain with movement 06/16/2015 is having trouble sleeping due to pain weight gain/obesity Onset and Resolution ongoing 06/16/2015 None weight gain/obesity Onset and Resolution gradual in onset 06/16/2015 None knee pain Quality sharp pain 06/16/2015 -jolting pains knee pain Location on the right 04/02/2015 hx of arthritis knee pain Quality constant 04/02/2015 None knee pain Onset of Symptom 2 months ago 04/02/2015 None knee pain Limitation on Activities allows weight bearing activity 04/02/2015 None knee pain Severity moderate 04/02/2015 None knee pain Significant Medical Conditions degenerative joint disease 04/02/2015 None knee pain Significant Medical Conditions obesity 04/02/2015 None knee pain Significant Medications NSAID' s 04/02/2015 None knee pain Alleviating Factors NSAID's 04/02/2015 None knee pain Exacerbating Factors exertion 04/02/2015 None knee pain Pertinent Findings pain with movement 04/02/2015 is having trouble sleeping due to pain knee pain Location on the left 04/02/2015 None knee pain Quality worsening 04/02/2015 None knee pain Frequency of Episodes increasing 04/02/2015 None knee pain Limitation on Activities moderately limits activities 04/02/2015 None joint complaint Location in both hips 04/02/2015 None joint complaint Location on both knees 04/02/2015 None joint complaint Quality acute 04/02/2015 None joint complaint Quality constant 04/02/2015 None joint complaint Quality throbbing 04/02/2015 None joint complaint Onset and Resolution ongoing 04/02/2015 None joint complaint Onset of Symptom _ months ago 04/02/2015 None joint complaint Limitation on Activities moderately limits activities 04/02/2015 None joint complaint Frequency of Episodes increasing 04/02/2015 None joint complaint Significant Medications NSAIDs 04/02/2015 None joint complaint Triggers rest 04/02/2015 None joint complaint Alleviating Factors position change 04/02/2015 None joint complaint Alleviating Factors activity 04/02/2015 None joint complaint Alleviating Factors medication 04/02/2015 None joint complaint Exacerbating Factors rest 04/02/2015 None joint complaint Pertinent Findings weight change 04/02/2015 None joint complaint Pertinent Findings limitation of motion 04/02/2015 None knee pain Location on the right 12/02/2014 hx of arthritis- previously used Celebrex but was no longer working quit taking- uses otc Ibuprofen for pain knee pain Quality constant 12/02/2014 None knee pain Timing of Episodes in the evening 12/02/2014 worse at night knee pain Onset of Symptom 2 months ago 12/02/2014 None knee pain Frequency of Episodes increasing 12/02/2014 None knee pain Pertinent Findings pain with movement 12/02/2014 is having trouble sleeping due to pain knee pain Limitation on Activities allows weight bearing activity 12/02/2014 None knee pain Severity moderate 12/02/2014 None knee pain Significant Medical Conditions obesity 12/02/2014 None knee pain Significant Medical Conditions degenerative joint disease 12/02/2014 None knee pain Significant Medications NSAID' s 12/02/2014 None knee pain Mechanism of injury unknown 12/02/2014 states there has been no specific injury, just continued use of the knees over the years knee pain Alleviating Factors NSAID's 12/02/2014 None knee pain Exacerbating Factors weight bearing 12/02/2014 None knee pain Exacerbating Factors exertion 12/02/2014 None Advance Directives No Advance Directive data Encounters Encounter Performer Location Codes Date 51206 EST. PATIENT, LEVEL III Diagnosis: Acute laryngopharyngitis[ICD10: J06.0] Diagnosis: Other allergic rhinitis[ICD10: J30.89] [facility] CPT-4: 29085 06/27/2017 95301 EST. PATIENT, LEVEL III Diagnosis: Ganglion, left hand[ICD10: M67.442] Diagnosis: Essential (primary) hypertension[ICD10: I10] Diagnosis: Generalized anxiety disorder[ICD10: F41.1] Diagnosis: Other insomnia[ICD10: G47.09] Petra Trejo MD, [facility] CPT-4 : 54666 05/29/2017 97529 EST. PATIENT, LEVEL III Diagnosis: Essential (primary) hypertension[ICD10: I10] Diagnosis: Palpitations[ICD10: R00.2] Diagnosis: Generalized anxiety disorder[ICD10: F41.1] Petra Trejo MD, [facility] CPT-4: 78756 05/21/2017 26925 EST. PATIENT, LEVEL III Diagnosis: Pain in right foot[ICD10: M79.671] Petra Trejo MD, [facility] CPT-4: 60899 04/20/2017 45161 EST. PATIENT, LEVEL IV Diagnosis: Other insomnia[ICD10: G47.09] Diagnosis: Other skin changes[ICD10: R23.8] Petra Trejo MD, [facility] CPT- 4: 18310 01/26/2017 64427 EST. PATIENT, LEVEL IV Diagnosis: Acute bronchitis due to other specified organisms[ICD10: J20.8] Petra Trejo MD, [facility] CPT-4: 79522 01/11/2017 ([id number]) 23484 EST. PATIENT, LEVEL IV Diagnosis: Essential (primary) hypertension[ICD10: I10] Diagnosis: Other insomnia[ICD10: G47.09] Diagnosis: Primary generalized (osteo)arthritis[ICD10: M15.0] Diagnosis: Other obesity due to excess calories[ICD10: E66.09] Claudette Trejo MD, [facility] CPT-4: 98420 11/30/2016 ([id number]) 65591 EST. PATIENT, LEVEL III Diagnosis: Other obesity due to excess calories[ICD10: E66.09] Diagnosis: Other insomnia[ICD10: G47.09] Diagnosis: Generalized anxiety disorder[ICD10: F41.1] Claudette Trejo MD, [facility] CPT-4: 42445 09/28/2016 ([id number]) 88340 EST. PATIENT, LEVEL IV Diagnosis: Generalized anxiety disorder[ICD10: F41.1] Diagnosis: Major depressive disorder, recurrent, mild[ICD10: F33.0] Diagnosis: Other obesity due to excess calories[ICD10: E66.09] Diagnosis: Other insomnia[ICD10: G47.09] Claudette Trejo MD, [facility] CPT-4: 64301 08/24/2016 ([id number]) 89624 EST. PATIENT, LEVEL III Diagnosis: Other obesity due to excess calories[ICD10: E66.09] Diagnosis: Major depressive disorder, recurrent, moderate[ICD10: F33.1] Diagnosis: Low back pain[ICD10: M54.5] Heidy Trejo MD, [facility] CPT- 4: 78605 07/13/2016 43277 EST. PATIENT, LEVEL IV Diagnosis: Other muscle spasm[ICD10: M62.838] Diagnosis: Generalized anxiety disorder[ICD10: F41.1] Diagnosis: Major depressive disorder, recurrent, moderate[ICD10: F33.1] Diagnosis: Other insomnia[ICD10: G47.09] Petra Trejo MD, [facility] CPT-4 : 35367 05/19/2016 ([id number]) 71639 EST. PATIENT, LEVEL III Diagnosis: Generalized anxiety disorder[ICD10: F41.1] Diagnosis: Major depressive disorder, recurrent, moderate[ICD10: F33.1] Heidy Trejo MD, [facility] CPT-4: 62955 03/16/2016 ([id number]) 82981 EST. PATIENT, LEVEL III Diagnosis: Streptococcal pharyngitis[ICD10: J02.0] Claudette Trejo MD, [facility] CPT-4: 81065 02/28/2016 ([id number]) 35014 EST. PATIENT, LEVEL III Diagnosis: Generalized anxiety disorder[ICD10: F41.1] Diagnosis: Other obesity due to excess calories[ICD10: E66.09] Heidy Trejo MD, [facility] CPT-4: 26198 01/13/2016 ([id number]) 43789 EST. PATIENT, LEVEL III Diagnosis: Generalized anxiety disorder[ICD10: F41.1] Diagnosis: Major depressive disorder, recurrent, unspecified[ICD10: F33.9] Heidy Trejo MD, [facility] CPT-4: 18019 09/27/2015 82093 EST. PATIENT, LEVEL IV Diagnosis: Chronic pain syndrome[ICD10: G89.4] Diagnosis: Other obesity due to excess calories[ICD10: E66.09] Diagnosis: Essential (primary) hypertension[ICD10: I10] Diagnosis: Generalized anxiety disorder[ICD10: F41.1] Diagnosis: Excessive and frequent menstruation with regular cycle[ICD10: N92.0] Diagnosis: Pain in right knee[ICD10: M25.561] Petra Trejo MD, [facility] CPT-4: 14383 08/30/2015 07673 EST. PATIENT, LEVEL IV Diagnosis: Palpitations[ICD10: R00.2] Diagnosis: Other obesity due to excess calories[ICD10: E66.09] Petra Trejo MD, [facility] CPT-4: 62018 08/16/2015 ([id number]) 39449 EST. PATIENT, LEVEL IV Diagnosis: Pain in right knee[ICD10: M25.561] Diagnosis: Primary generalized (osteo)arthritis[ICD10: M15.0] Diagnosis: Acute maxillary sinusitis, unspecified[ICD10: J01.00] Heidy Trejo MD, [facility] CPT-4: 54869 07/15/2015 ([id number]) 37384 EST. PATIENT, LEVEL IV Diagnosis: Primary generalized (osteo)arthritis[ICD10: M15.0] Diagnosis: Restless legs syndrome[ICD10: G25.81] Diagnosis: Chronic pain syndrome[ICD10: G89.4] Heidy Trejo MD, [facility] CPT-4: 53008 06/16/2015 ([id number]) 82799 EST. PATIENT, LEVEL III Diagnosis: Primary generalized (osteo)arthritis[ICD10: M15.0] Diagnosis: Varicose veins of bilateral lower extremities with pain[ICD10: I83.813] Claudette Trejo MD, [facility] CPT-4: 63088 ([id number]) OFFICE VISIT, NEW - LEVEL 3 Diagnosis: Osteoarthritis[ICD9: 715.90] Diagnosis: ABNORMAL WEIGHT GAIN[ICD9: 783.1] Diagnosis: Superficial thrombophlebitis[ICD9: 451.9] Carey Trejo MD, [facility] CPT-4: 20632 12/02/2014 Plan of Care Planned Activity Notes Codes Status Date Visit Plan: URI - Pt advised to increase fluids, vitamin C. Discussed natural and expected course of this diagnosis and need to alert me if symptoms do not follow expected course, or if any worse. RX sent to patient' s pharmacy. Allergies - chronic - recommended pt to use allergy medication as prescribed. Pt has been counseled as to the appropriate use of the medication. Pt to call if allergy symptoms are not controlled with the medication. If using nasal spray, instructions as follows: Nasal spray- use twice daily, one spray per nostril twice daily, after 30 minutes, rinse out nose with saline spray.. Use opposite hand per nostril to spray in the nasal steroid allergy spray. 06/27/2017 Appointment: Petra Rivas WPtel: [address] [place], [place] [id number] (15 min) Moderate 06/27/2017 Patient Education: Patient Medication Summary Completed 06/27/2017 Referral: Jignesh Quinn [facility] Patient informed. Referral info faxed. Completed 06/13/2017 Visit Plan: Chronic Depression and anxiety - the pt has symptoms of chronic anxiety and depression that have been fairly well controlled since the last office visit. The pt has expected periods of exacerbation with abatement of the symptoms with change in situational exposure. No change in current medications. Insomnia - Pt has been advised to increase the light in the house during the day, and start dimming the lights during the evening hours. Pt has been advised to cut out caffeine after 5pm. Daytime napping worsens night time insomnia. Hypertension - continue with current medications, continue with no added salt diet. Pt has been encouraged to exercise daily. The pt has been advised to call the office if there are any acute concerns about change in blood pressure readings at home. Ganglion cyst - will refer to Dr. Quinn 05/29/2017 Appointment: Petra Rivas WPtel: [address] [place], [place] [id number] (15 min) Moderate 05/29/2017 Patient Education: Patient Medication Summary Completed 05/29/2017 Care Plan: Referral Order SNOMED-CT : [id number] Pending 05/29/2017 [facility] [address] [facility] [place] (15 min) Moderate 05/28/2017 Visit Plan: Palpitations - likely anxiety - will check labs - pt states that she had to deal with a friends today - will send RX - pt is to notify clinic or go to the ER for any acute concerns. Anxiety - panic attack - will send RX - the patient has uncontrolled anxiety and will benefit from an SSRI on a daily basis to attempt control of the symptoms of anxiety (tachycardia, overwhelming sensations, stress, insomnia, etc). I also believe that the patient will benefit from very low dose of prn benzodiazepine. Pt is aware of the risks and benefits of treatment with the above medications. Hypertension - The patient has been counseled to cut back on salt in diet for a no added salt diet, low fat diet, start an exercise program with low weight bearing exercises and higher aerobic activity for heart health. The patient is to check blood pressure readings as an outpatient and either fax, call, or email the readings to the office next week for practitioner to review. The pt is to call for acute concerns. 05/21/2017 Appointment: Pet[facility]ivas [facility] (15 min) Moderate 05/21/2017 Patient Education: Patient Medication Summary Completed 05/21/2017 Visit Plan: Right heel pain - will send RX, pt is to do stretches as directed - The pt is to use prn antiinflammatories to manage acute pain. The patient is to call the office if the pain is worsening or does not improve. 04/20/2017 Appointment: Petra Rivas [facility]Ptel[id number] [place] (30 min) Complex 04/20/2017 Patient Education: Patient Medication Summary Completed 04/20/2017 Appointment: Pet[facility] Rivas [facility]el[id number] [place] (30 min) Complex 03/29/2017 Patient Education: Patient Medication Summary Completed 03/16/2017 Referral: Maycol Quijano Referral Initiated 02/08/2017 Care Plan: Referral Order SNOMED-CT : [id number] Pending 01/28/2017 Visit Plan: Insomnia - Pt has been advised to increase the light in the house during the day, and start dimming the lights during the evening hours. Pt has been advised to cut out caffeine after 5pm. Daytime napping worsens night time insomnia. Changing mole - will refer for removal - pt is to notify clinic with any changes, questions, or concerns. 01/26/2017 Appointment: Petra Rivas WPtel: [phone] [id number] (30 min) Complex 01/26/2017 Patient Education: Patient Medication Summary Completed 01/26/2017 Patient Education: Obesity Completed 01/26/2017 Visit Plan: Bronchitis - acute case of bronchitis identified. Pt has been given antibiotics, breathing treatments as appropriate, and pt has been instructed to call if symptoms are not improved, or if symptoms acutely worsen. 01/11/2017 Visit Plan: Bronchitis - acute case of bronchitis identified. Pt has been given antibiotics, breathing treatments as appropriate, and pt has been instructed to call if symptoms are not improved, or if symptoms acutely worsen. 01/11/2017 Appointment: Petra Rivas WPtel: [facility] (15 min) Moderate 01/11/2017 Patient Education: Patient Medication Summary Completed 01/11/2017 Visit Plan: Hypertension - well controlled - continue with current medications, continue with no added salt diet. Pt has been encouraged to exercise daily. The pt has been advised to call the office if there are any acute concerns about change in blood pressure readings at home. Obesity - chronic issue with this patient. The pt has been counseled about diet changes, calorie restriction, and need to exercise. Pt will RTCfor weight check. Insomnia - Pt has been advised to increase the light in the house during the day , and start dimming the lights during the evening hours. Pt has been advised to cut out caffeine after 5pm. Daytime napping worsens night time insomnia. RX for ambien Arthritis- symptoms not well controlled- recommend pt to take antiinflammatory as directed for pain control. Use tylenol for break through pain symptoms. RX for celebrex provided and instructed on use. 11/30/2016 Appointment: Claudette Savage WPtel: [phone] [phone] [place] (15 min) Moderate 11/30/2016 Patient Education: Patient Medication Summary Completed 11/30/2016 Patient Education: Obesity Completed 11/30/2016 Care Plan: BMI Above normal followup SELF-MGMT EDUC & TRAIN 1 PT Pending 2016 Visit Plan: Nskaqur-oqyicbvdhs-owusyzyr with increase in cymbalta-no changes Insomnia-RX for belsomra provided and instructed on use Obesity-patient down 15#-no changes-continue diet/exercise-follow up in 2 months 09/28/2016 Appointment: Claudette Savage WPtel: [address] [place] [address] [place] (15 min) Moderate 09/28/2016 Patient Education: Patient Medication Summary Completed 09/28/2016 Patient Education: Obesity Completed 09/28/2016 Care Plan: BMI Above normal followup SELF-MGMT EDUC & TRAIN 1 PT Pending 2016 Visit Plan: Fklepyq-vzmpknwste-dqszmjvi-increase cymbalta to 60mg daily. Increase xanax as directed-call if symptoms uncontrolled. Pt is aware of the risks and benefits of treatment with the above medications and verbalized understanding of plan. Obesity - chronic issue with this patient. The pt has been counseled about diet changes, calorie restriction, and need to exercise. Pt will RTC in one month for weight check. Insomnia-increase xanax as directed for insomnia/anxiety 08/24/2016 Appointment: Claudette Savage WPtel: [address] [place], [place] [phone] (15 min) Moderate 08/24/2016 Patient Education: Patient Medication Summary Completed 08/24/2016 Patient Education: Obesity Completed 08/24/2016 Care Plan: BMI Above normal followup SELF-MGMT EDUC & TRAIN 1 PT Pending 2016 Visit Plan: Low back pain- the patient was instructed in appropriate posture, need for weight loss to alleviate abdominal obesity that is worsening the patient's back pain.. The pt is to use prn antiinflammatories to manage acute pain. The patient is to call the office if the pain is worsening or does not improve. Depression/anxiety - rx for cymbalta - callif not improving. 07/13/2016 [facility]ment[phone] [facility] (15 min) Moderate 07/13/2016 Patient Education: Patient Medication Summary Completed 07/13/2016 Patient Education: Obesity Completed 07/13/2016 Visit Plan: Muscle spasms - Will check labs, pt is to rehydrate with Gatorade like product during physical activity. Pt is to notify clinic if symptoms do not improve, if they worsen, or with any questions or concerns. Chronic Depression and anxiety - the pt has symptoms of chronic anxiety and depression that have been fairly well controlled since the last office visit. The pt has expected periods of exacerbation with abatement of the symptoms with change in situational exposure. No change in current medications. Insomnia - Pt has been advised to increase the light in the house during the day , and start dimming the lights during the evening hours. Pt has been advised to cut out caffeine after 5pm. Daytime napping worsens night time insomnia. 05/19/2016 Appointment: Petra Rivas [facility]Ptel[facility] (30 min) Complex 05/19/2016 Patient Education: Patient Medication Summary Completed 05/19/2016 Visit Plan: Anxiety and Depression - uncontrolled - Pt has been counseled about the diagnosis of depression and anxiety, the potential causes, and risks associated with the diagnosis. The pt denies suicidal ideation , or plans. The patient has been counseled about treatment options, and understands the risks associated with treatment of depression, as well as the risks associated with NOT treating the depression. I believe the pt will benefit from medical intervention and an antidepressant has been appropriately prescribed for this patient. 03/16/2016 Appointment: Heidy Trejo WPtel[facility] (15 min) Moderate 03/16/2016 Patient Education: Patient Medication Summary Completed 03/16/2016 Patient Education: Obesity Completed 03/16/2016 Visit Plan: Strep throat - pt give rx for antibiotic - sent to pharmacy - pt had swab of throat today - will culture the swab. 02/28/2016 Visit Plan: Strep throat - pt give rx for antibiotic - sent to pharmacy - pt had swab of throat today - will culture the swab. 02/28/2016 Appointment: Claud[facility]el[facility] [phone] [phone] (10 min) Simple 02/28/2016 Patient Education: Patient Medication Summary Completed 02/28/2016 Visit Plan: Depression and -Obesity - chronic issue with this patient. The pt has been counseled about diet changes, calorie restriction , and need to exercise. Pt will RTC in one month for weight check. contrave website contrave 1 pill nightly x 1 week, then one pill twice daily x 1 week, then if needed can increase up to 2 pills twice daily. stop lexapro 01/13/2016 Appointment: [place] [facility]el[facility] [phone] [facility] [place] (15 min) Moderate 01/13/2016 Patient Education: Patient Medication Summary Completed 01/13/2016 Patient Education: Obesity Completed 01/13/2016 Visit Plan: Anxiety and Depression- the patient has uncontrolled anxiety and depression and will benefit from an SSRI on a daily basis to attempt control of the symptoms of anxiety (tachycardia, overwhelming sensations, stress, insomnia, etc). I also believe that the patient will benefit from very low dose of prn benzodiazepine. Pt is aware of the risks and benefits of treatment with the above medications. 09/27/2015 Patient Education: Patient Medication Summary Completed 09/27/2015 Care Plan: Referral Order SNOMED-CT : [id number] Pending 08/31/2015 Visit Plan: Anxiety - the patient has uncontrolled anxiety and will benefit from an SSRI on a daily basis to attempt control of the symptoms of anxiety (tachycardia, overwhelming sensations, stress, insomnia, etc ). I also believe that the patient will benefit from very low dose of prn benzodiazepine. Pt is aware of the risks and benefits of treatment with the above medications. Chronic Pain Syndrome - pt has chronic pain - has been maintained on current medications, has not sought out other medications, only uses PRN pain medications as directed, and understands the consequences of over- medication. Right knee pain - pt denies injury - states that she has degenerative changes and that since her back pain has improved, she is now noticing that her knee is hurting her. Pt given Vimovo samples. Pt is to notify clinic if symptoms do not improve, or with any concerns. BMI 39 - The pt has been counseled about diet changes, calorie restriction, and need to exercise. Pt will RTC for weight check. Dysmenorrhea - pt states that it has been several years since her last pap, and that she has very heavy, very painful periods, pt would like to ask questions about hysterectomy - will refer to Dr. Hoffman 08/30/2015 Appointment: (15 min) Moderate 08/30/2015 Patient Education: Patient Medication Summary Completed 08/30/2015 Patient Education: Obesity Completed 08/30/2015 Patient Education: Hypertension Completed 08/30/2015 Visit Plan: Palpitations - pt states that she has had times when she feels like her heart is racing. Denies chest pain and shortness of breath. Pt states that she has had swelling of her legs for awhile, but that it has improved since having treatment for her varicose veins. Pt states that she usually has her symptoms at night. 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 Pt states that she does not want to wear an event monitor because she is too busy. Will check labs, and order an EKG. If symptoms persist, or worsen, or with any concerns pt is to notify clinic, and pt will consider an event monitor and further testing. BMI 38 - The pt has been counseled about diet changes, calorie restriction, and need to exercise. Pt will RTC in 2 weeks for weight check. 08/16/2015 Appointment: (30 min) Complex 08/16/2015 Patient Education: Patient Medication Summary Completed 08/16/2015 Patient Education: Obesity Completed 08/16/2015 Care Plan: BMI Above normal followup SELF-MGMT EDUC & TRAIN 1 PT Ordered 2015 Visit Plan: Arthritis- occasionally uncontrolled symptoms- recommend pt to take antiinflammatory as directed for pain control. Use tylenol for break through pain symptoms. Sinusitis - Pt has acute infection - pain in face, maxillary region, Pt informed to use decongestant, RX given to patient, sinus rinses also recommended. Call if symptoms do not show improvement. 07/15/2015 Visit Plan: Arthritis- occasionally uncontrolled symptoms- recommend pt to take antiinflammatory as directed for pain control. Use tylenol for break through pain symptoms. Sinusitis - Pt has acute infection - pain in face, maxillary region, Pt informed to use decongestant, RX given to patient, sinus rinses also recommended. Call if symptoms do not show improvement. 07/15/2015 Visit Plan: Arthritis- occasionally uncontrolled symptoms- recommend pt to take antiinflammatory as directed for pain control. Use tylenol for break through pain symptoms. 07/15/2015 Appointment: He[facility]jo [facility]el[facility] [phone] [facility] [place] (15 min) Moderate 07/15/2015 Patient Education: Patient Medication Summary Completed 07/15/2015 Visit Plan: Chronic Pain Syndrome - pt has chronic pain - has been maintained on current medications, has not sought out other medications , only uses PRN pain medications as directed, and understands the consequences of over-medication. Arthritis- occasionally uncontrolled symptoms- recommend pt to take antiinflammatory as directed for pain control. Use tylenol for break through pain symptoms. Restless Leg Syndrome - uncontrolled symptoms - I have recommended pt to start on a low dose of iron two to three times a week - to take with orange juice. Pt is to alert me if the symptoms do not improve and we will start on a medication such as mirapex or requip. 06/16/2015 Patient Education: Patient Medication Summary Completed 06/16/2015 Visit Plan: OA-hips and knees-recommend additional labs- patient wants to wait until done with treatment at the vein clinic-plan to stop ibuprofen, start mobic 15mg daily and use hydrocodone as needed for breakthrough pain-also instructed patient to start vitamin D 5000 units daily- call in 1 month with update on symptoms. Patient verbalized understanding of plan. Varicose veins-patient getting treatment at vein clinic 04/02/2015 Appointment: Claud[facility]el[facility] [phone] [phone] [place] (15 min) Moderate 04/02/2015 Patient Education: Patient Medication Summary Completed 04/02/2015 Visit Plan: Osteoarthritis knees bilateral- Sample for Pennsaid ointment provided. Check x-ray. Superficial thrombophlebitis- Check labs and bilat lower extremity venous doppler to rule out DVT. Discussed referral to a vein clinc for laser treatment of varicose veins. Pt states she wants to think about this before being referred. Weight gain- Check labs, CBC, CMP, Fasting lipid profile and TSH. 12/02/2014 Appointment: New Patient 12/02/2014 Patient Education: Patient Medication Summary Completed 12/02/2014 Referral: Belle Hoffman WPtel: [phone] [facility] they will call and set the appt with her Initiated Referral: Maycol Quijano Referral Initiated Referral: Belle Hoffman WPtel: [phone] [facility] [place] Referral Initiated Referral: Jignesh Quinn [facility] [place] Referral Initiated Instructions Comment . Hypertension - well controlled - continue with current medications, continue with no added salt diet. Pt has been encouraged to exercise daily. The pt has been advised to call the office if there are any acute concerns about change in blood pressure readings at home. Obesity - chronic issue with this patient. The pt has been counseled about diet changes, calorie restriction, and need to exercise. Pt will RTCfor weight check. Insomnia - Pt has been advised to increase the light in the house during the day , and start dimming the lights during the evening hours. Pt has been advised to cut out caffeine after 5pm. Daytime napping worsens night time insomnia. RX for ambien Arthritis- symptoms not well controlled- recommend pt to take antiinflammatory as directed for pain control. Use tylenol for break through pain symptoms. RX for celebrex provided and instructed on use. We will check a [facility] lab today. Go to [facility] tomorrow morning to have fasting labs drawn. We will set you up with an appointment for a venous doppler of your bilat lower extremities. We will check an x-ray of the right knee. Pennsaid to right knee two times per day, sample provided. . Osteoarthritis knees bilateral- Sample for Pennsaid ointment provided. Check x-ray. Superficial thrombophlebitis- Check labs and bilat lower extremity venous doppler to rule out DVT. Discussed referral to a vein clinc for laser treatment of varicose veins. Pt states she wants to think about this before being referred. Weight gain- Check labs, CBC, CMP, Fasting lipid profile and TSH. . Chronic Depression and anxiety - the pt has symptoms of chronic anxiety and depression that have been fairly well controlled since the last office visit. The pt has expected periods of exacerbation with abatement of the symptoms with change in situational exposure. No change in current medications. Insomnia - Pt has been advised to increase the light in the house during the day , and start dimming the lights during the evening hours. Pt has been advised to cut out caffeine after 5pm. Daytime napping worsens night time insomnia. Hypertension - continue with current medications, continue with no added salt diet. Pt has been encouraged to exercise daily. The pt has been advised to call the office if there are any acute concerns about change in blood pressure readings at home. Ganglion cyst - will refer to Dr. Quinn glucosamine and chondroiton - joint ease, joint juice - will help with the bone pain/joint pain vitamin D 50,000 units one time weekly x 15 weeks - and start on vitamin d 2000 units daily as well. . Low back pain- the patient was instructed in appropriate posture, need for weight loss to alleviate abdominal obesity that is worsening the patient's back pain.. The pt is to use prn antiinflammatories to manage acute pain. The patient is to call the office if the pain is worsening or does not improve. Depression/anxiety - rx for cymbalta - callif not improving. . Anxiety and Depression- the patient has uncontrolled anxiety and depression and will benefit from an SSRI on a daily basis to attempt control of the symptoms of anxiety (tachycardia, overwhelming sensations , stress, insomnia, etc). I also believe that the patient will benefit from very low dose of prn benzodiazepine. Pt is aware of the risks and benefits of treatment with the above medications. Increase Cymbalta from 30 mg/day to 60 mg/day Start Victoza 0.6 mg/day for one week, then increase to 1.2 mg/day for one week , then increase to 1.8 mg/day Patient states understanding of administration instructions. Refill Xanax 1 mg at night for anxiety . Buvfpil-cixitlakhk-arxfgnbj-increase cymbalta to 60mg daily. Increase xanax as directed-call if symptoms uncontrolled. Pt is aware of the risks and benefits of treatment with the above medications and verbalized understanding of plan. Obesity - chronic issue with this patient. The pt has been counseled about diet changes, calorie restriction, and need to exercise. Pt will RTC in one month for weight check. Insomnia-increase xanax as directed for insomnia/anxiety Kenalog . Strep throat - pt give rx for antibiotic - sent to pharmacy - pt had swab of throat today - will culture the swab. Kenalog . Strep throat - pt give rx for antibiotic - sent to pharmacy - pt had swab of throat today - will culture the swab. . Muscle spasms - Will check labs, pt is to rehydrate with Gatorade like product during physical activity. Pt is to notify clinic if symptoms do not improve, if they worsen, or with any questions or concerns. Chronic Depression and anxiety - the pt has symptoms of chronic anxiety and depression that have been fairly well controlled since the last office visit. The pt has expected periods of exacerbation with abatement of the symptoms with change in situational exposure. No change in current medications. Insomnia - Pt has been advised to increase the light in the house during the day , and start dimming the lights during the evening hours. Pt has been advised to cut out caffeine after 5pm. Daytime napping worsens night time insomnia. . Anxiety - the patient has uncontrolled anxiety and will benefit from an SSRI on a daily basis to attempt control of the symptoms of anxiety (tachycardia, overwhelming sensations, stress, insomnia, etc). I also believe that the patient will benefit from very low dose of prn benzodiazepine. Pt is aware of the risks and benefits of treatment with the above medications. Chronic Pain Syndrome - pt has chronic pain - has been maintained on current medications, has not sought out other medications, only uses PRN pain medications as directed, and understands the consequences of over-medication. Right knee pain - pt denies injury - states that she has degenerative changes and that since her back pain has improved, she is now noticing that her knee is hurting her. Pt given Vimovo samples. Pt is to notify clinic if symptoms do not improve, or with any concerns. BMI 39 - The pt has been counseled about diet changes, calorie restriction, and need to exercise. Pt will RTC for weight check. Dysmenorrhea - pt states that it has been several years since her last pap, and that she has very heavy, very painful periods, pt would like to ask questions about hysterectomy - will refer to Dr. Hoffman . Anxiety and Depression - uncontrolled - Pt has been counseled about the diagnosis of depression and anxiety, the potential causes, and risks associated with the diagnosis. The pt denies suicidal ideation, or plans. The patient has been counseled about treatment options, and understands the risks associated with treatment of depression, as well as the risks associated with NOT treating the depression. I believe the pt will benefit from medical intervention and an antidepressant has been appropriately prescribed for this patient. . Insomnia - Pt has been advised to increase the light in the house during the day, and start dimming the lights during the evening hours. Pt has been advised to cut out caffeine after 5pm. Daytime napping worsens night time insomnia. Changing mole - will refer for removal - pt is to notify clinic with any changes , questions, or concerns. pramipexole - 0.5mg - take at bedtime - should help with the restless legs. get an over the counter - supplement - called Move Free, Joint Ease - ( glucosamine and chondroiton) - will help to re- lubricate the joints. . Chronic Pain Syndrome - pt has chronic pain - has been maintained on current medications, has not sought out other medications, only uses PRN pain medications as directed, and understands the consequences of over-medication. Arthritis- occasionally uncontrolled symptoms- recommend pt to take antiinflammatory as directed for pain control. Use tylenol for break through pain symptoms. Restless Leg Syndrome - uncontrolled symptoms - I have recommended pt to start on a low dose of iron two to three times a week - to take with orange juice. Pt is to alert me if the symptoms do not improve and we will start on a medication such as mirapex or requip. Md7 contrave 1 pill nightly x 1 week, then one pill twice daily x 1 week, then if needed can increase up to 2 pills twice daily. stop lexapro . Depression and -Obesity - chronic issue with this patient. The pt has been counseled about diet changes, calorie restriction, and need to exercise. Pt will RTC in one month for weight check. Md7 contrave 1 pill nightly x 1 week, then one pill twice daily x 1 week, then if needed can increase up to 2 pills twice daily. stop lexapro . Palpitations - likely anxiety - will check labs - pt states that she had to deal with a friends today - will send RX - pt is to notify clinic or go to the ER for any acute concerns. Anxiety - panic attack - will send RX - the patient has uncontrolled anxiety and will benefit from an SSRI on a daily basis to attempt control of the symptoms of anxiety (tachycardia, overwhelming sensations, stress, insomnia, etc ). I also believe that the patient will benefit from very low dose of prn benzodiazepine. Pt is aware of the risks and benefits of treatment with the above medications. Hypertension - The patient has been counseled to cut back on salt in diet for a no added salt diet, low fat diet, start an exercise program with low weight bearing exercises and higher aerobic activity for heart health. The patient is to check blood pressure readings as an outpatient and either fax , call, or email the readings to the office next week for practitioner to review. The pt is to call for acute concerns. . Arthritis- occasionally uncontrolled symptoms- recommend pt to take antiinflammatory as directed for pain control. Use tylenol for break through pain symptoms. Sinusitis - Pt has acute infection - pain in face, maxillary region, Pt informed to use decongestant, RX given to patient, sinus rinses also recommended. Call if symptoms do not show improvement. . Arthritis- occasionally uncontrolled symptoms- recommend pt to take antiinflammatory as directed for pain control. Use tylenol for break through pain symptoms. Sinusitis - Pt has acute infection - pain in face, maxillary region, Pt informed to use decongestant, RX given to patient, sinus rinses also recommended. Call if symptoms do not show improvement. . Arthritis- occasionally uncontrolled symptoms- recommend pt to take antiinflammatory as directed for pain control. Use tylenol for break through pain symptoms. CALL ME IN 1 MONTH AND LET ME KNOW HOW YOUR PAIN IS . OA-hips and knees-recommend additional labs-patient wants to wait until done with treatment at the vein clinic-plan to stop ibuprofen, start mobic 15mg daily and use hydrocodone as needed for breakthrough pain-also instructed patient to start vitamin D 5000 units daily-call in 1 month with update on symptoms. Patient verbalized understanding of plan. Varicose veins-patient getting treatment at vein clinic Breathing treatments 3 times a day x 2 days, then twice a day x 2 days, then as needed Steroid shot today Start Prednisone tomorrow Cough syrup as needed - it can make you sleepy so be cautious. antibiotic Let me know if you are not getting better. Bronchitis - acute case of bronchitis identified. Pt has been given antibiotics, breathing treatments as appropriate, and pt has been instructed to call if symptoms are not improved, or if symptoms acutely worsen. Breathing treatments 3 times a day x 2 days, then twice a day x 2 days, then as needed Steroid shot today Start Prednisone tomorrow Cough syrup as needed - it can make you sleepy so be cautious. antibiotic Let me know if you are not getting better. Bronchitis - acute case of bronchitis identified. Pt has been given antibiotics, breathing treatments as appropriate, and pt has been instructed to call if symptoms are not improved, or if symptoms acutely worsen. . Right heel pain - will send RX, pt is to do stretches as directed - The pt is to use prn antiinflammatories to manage acute pain. The patient is to call the office if the pain is worsening or does not improve. BELSOMRA . Qcxvpqd-ucybsmnkjd-fbsnofug with increase in cymbalta-no changes Insomnia-RX for belsomra provided and instructed on use Obesity-patient down 15#-no changes-continue diet/exercise-follow up in 2 months . Palpitations - pt states that she has had times when she feels like her heart is racing. Denies chest pain and shortness of breath. Pt states that she has had swelling of her legs for awhile, but that it has improved since having treatment for her varicose veins. Pt states that she usually has her symptoms at night. 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 Pt states that she does not want to wear an event monitor because she is too busy. Will check labs, and order an EKG. If symptoms persist, or worsen, or with any concerns pt is to notify clinic, and pt will consider an event monitor and further testing. BMI 38 - The pt has been counseled about diet changes, calorie restriction, and need to exercise. Pt will RTC in 2 weeks for weight check. . URI - Pt advised to increase fluids, vitamin C. Discussed natural and expected course of this diagnosis and need to alert me if symptoms do not follow expected course, or if any worse. RX sent to patient's pharmacy. Allergies - chronic - recommended pt to use allergy medication as prescribed. Pt has been counseled as to the appropriate use of the medication. Pt to call if allergy symptoms are not controlled with the medication. If using nasal spray, instructions as follows: Nasal spray- use twice daily, one spray per nostril twice daily, after 30 minutes, rinse out nose with saline spray.. Use opposite hand per nostril to spray in the nasal steroid allergy spray.
--- OUTSIDE RECORDS SUMMARY | 2017-08-07 12:23 | XMS REPORT | CCD ---
Author Author [place] Organization [facility] Address [address] [place] [address] Phone Care Team Providers Care Account Executive Software Sales Name Role Phone PP Unavailable CCM Unavailable Summary Purpose Interface Exchange Insurance Providers Payer name Policy type / Coverage type Covered constitution party ID Effective Begin Date Effective End Date [facility] [id number] 2015 Unknown Family history Brother Diagnosis Age At [...] Description Effective Dates Tobacco history SNOMED CT: 0823813 Quit less than 5 years ago 04/02/2015 Alcohol history Unknown occasionally drinks alcohol 04/02/2015 Marital status Unknown Manuel Vitale 12/02/2014 Number of children Unknown 3 12/02/2014 Allergies, Adverse Reactions, Alerts Allergies, Adverse Reactions, Alerts data not found Past Medical History Illness Codes Condition Status Onset Date Resolved Date Essential (primary) hypertension ICD-9: 401.9 ICD-10: I10 Active 08/29/2015 Unknown Ganglion, left hand ICD-9: 727.43 ICD-10: M67.442 Active 05/29/2017 Unknown Generalized anxiety disorder ICD-9: 308.0 ICD-10: F41.1 Active 05/18/2016 Unknown Other insomnia ICD-9: 327.09 ICD-10: G47.09 Active 05/18/2016 Unknown Palpitations ICD-9: 785.1 ICD-10: R00.2 Active [...] Problems Condition Codes Effective Dates Condition Status Essential (primary) hypertension ICD-9: 401.9 ICD-10: I10 08/29/2015 Active Ganglion, left hand ICD-9: 727.43 ICD-10: M67.442 05/29/2017 Active Generalized anxiety disorder ICD-9: 308.0 ICD-10: F41.1 05/18/2016 Active Other insomnia ICD-9: 327.09 ICD-10: G47.09 05/18/2016 Active Palpitations ICD-9: 785.1 ICD-10: R00.2 08/15/2015 [...] Start Date Stop Date Status Fill Instructions Ambien 10 mg tablet RxNorm: 635607 1 Tablet(s) PO daily 201708/26/2017 Active tramadol 50 mg tablet RxNorm: 920032 1 Tablet(s) PO TID as needed 05/29/2017 07/27/2017 Active alprazolam 1 mg tablet RxNorm: 635694 1 Tablet(s) PO BID as needed 05/21/2017 06/19/2017 Active Celebrex 200 mg capsule RxNorm: 618554 1 CAPSULE(S) PO BID 10/30/2017 Active hydrocodone 5 mg-acetaminophen 325 mg tablet RxNorm: 883786 1 Tablet(s) PO QID as needed 04/20/2017 No Stop Date Active Cymbalta 60 mg capsule,delayed release RxNorm: 274759 1 Capsule(s) PO daily 04/20/2017 11/15/2017 Active prednisone 20 mg tablet RxNorm: 360037 2 Tablet(s) PO daily 12/201604/24/2017 Inactive Ambien 10 mg tablet RxNorm: 450230 Tablet(s) PO 04/20/2017 05/28/2017 Inactive Victoza 2-Marek 0.6 mg/0.1 mL (18 mg/3 mL) subcutaneous pen injector RxNorm: 977065 INJECT 1.8 MG SUB-Q ONCE DAILY 03/26/2017 09/21/2017 Active diazepam 2 mg tablet RxNorm: 743639 1 Tablet(s) PO QHS as needed insomnia 01/28/2017 05/07/2017 Inactive Victoza 2-Marek 0.6 mg/0.1 mL (18 mg/3 mL) subcutaneous pen injector RxNorm: 177884 1.8 Milligram(s) SQ daily 01/26/201703/25 Inactive dispense quantity sufficient albuterol sulfate 2.5 mg/3 mL (0.083 %) solution for nebulization RxNorm: 806619 3 Milliliter(s) INH UD 01/11/2017 No Stop Date Active Tussionex Pennkinetic ER 10 mg-8 mg/5 mL suspension, extended release RxNorm: 4073840 5 Milliliter(s) PO BID 01/11/2017 01/15/2017 Inactive Xanax 1 mg tablet RxNorm: 820138 1 Tablet(s) PO BID PRN as needed anxiety 01/11/2017 05/20/2017 Inactive Zithromax Z-Marek 250 mg tablet RxNorm: 742953 1 Tablet(s) PO UD 01/11/2017 01/15/2017 Inactive zpack prednisone 20 mg tablet RxNorm: 956994 2 Tablet(s) PO daily 01/15/2017 Inactive Kenalog 40 mg/mL suspension for injection RxNorm: 3291857 1.5 Milliliter(s) Inj 01/11/2017 01/11/2017 Inactive Ambien 5 mg tablet RxNorm: 666620 1 Tablet(s) PO HS PRN 11/3001/28/2017 Inactive Celebrex 200 mg capsule RxNorm: 984230 1 Capsule(s) PO BID 02/27/2017 Inactive trazodone 50 mg tablet RxNorm: 835705 1/2 to 1 Tablet(s) PO QHS 10/13/2016 10/12/2016 Inactive trazodone 50 mg tablet RxNorm: 709153 1/2 to 1 Tablet(s) PO QHS 10/13/2016 11/29/2016 Inactive Belsomra 10 mg tablet RxNorm: 6984916 1 Tablet(s) PO QHS 201611/29/2016 Inactive may increase to 20mg if 10mg not effective Cymbalta 60 mg capsule,delayed release RxNorm: 794157 1 Capsule(s) PO daily 08/24/2016 03/21/2017 Inactive Xanax 1 mg tablet RxNorm: 611736 1 Tablet(s) PO BID PRN as needed anxiety 08/24/2016 01/10/2017 Inactive Victoza 2-Marek 0.6 mg/0.1 mL (18 mg/3 mL) subcutaneous pen injector RxNorm: 963946 Milligram(s) SQ 08/24/2016 08/23/2016 Inactive Victoza 2-Marek 0.6 mg/0.1 mL (18 mg/3 mL) subcutaneous pen injector RxNorm: 992829 1.8 Milligram(s) SQ 08/24/2016 01/25/2017 Inactive Vitamin D2 50,000 unit capsule RxNorm: 256228 1 Capsule(s) PO QW 07/13/2016 10/10/2016 Inactive Cymbalta 30 mg capsule,delayed release RxNorm: 313048 1 Capsule(s) PO daily 07/13/2016 08/23/2016 Inactive Belviq XR 20 mg tablet,extended release RxNorm: 1557490 1 Tablet(s) PO daily 05/30/2016 05/29/2016 Inactive prednisone 20 mg tablet RxNorm: 395190 2 Tablet(s) PO daily 06/03/2016 Inactive prednisone 20 mg tablet RxNorm: 163763 2 Tablet(s) PO daily 05/29/2016 Inactive Belviq XR 20 mg tablet,extended release RxNorm: 2845782 1 Tablet(s) PO daily 05/30/2016 06/28/2016 Inactive cyclobenzaprine 5 mg tablet RxNorm: 173318 1-2 Tablet(s) PO TID as needed 05/19/2016 05/23/2016 Inactive metoprolol succinate ER 25 mg tablet,extended release 24 hr RxNorm: 696252 1 Tablet(s) PO QPM 04/10/2016 04/13/2016 Inactive metoprolol succinate ER 25 mg tablet,extended release 24 hr RxNorm: 199989 1 Tablet(s) PO QPM 04/10/2016 04/09/2016 Inactive escitalopram 10 mg tablet RxNorm: 120112 1 Tablet(s) PO daily 03/16/2016 07/12/2016 Inactive estradiol 1 mg tablet RxNorm: 237683 1 Tablet(s) PO every other day 03/16/2016 05/15/2016 Inactive Kenalog 40 mg/mL suspension for injection RxNorm: 1478868 Milliliter(s) Inj 02/28/2016 02/28/2016 Inactive Zithromax Z-Marek 250 mg tablet RxNorm: 005949 1 Tablet(s) PO UD 02/28/2016 03/03/2016 Inactive zpack Lexapro 10 mg tablet RxNorm: 936183 1 Tablet(s) PO daily 201502/27/2016 Inactive Lexapro 10 mg tablet RxNorm: 869702 1 Tablet(s) PO daily 201509/26/2015 Inactive Vimovo 500 mg-20 mg tablet,immediate and delay release RxNorm: 303369 1 Tablet(s) PO BID as needed for pain 08/30/201509/25 Inactive azithromycin 250 mg tablet RxNorm: 840435 1 Tablet(s) PO UD 2 pills on day #1, then one pill daily x 4 days 07/15/2015 Inactive hydrocodone 10 mg-acetaminophen 325 mg tablet RxNorm: 039184 1 Tablet(s) PO QID 06/16/2015 01/12/2016 Inactive pramipexole 0.5 mg tablet RxNorm: 999710 1 Tablet(s) PO QPM 07/201507/14/2015 Inactive Celebrex 200 mg capsule RxNorm: 584384 1 Capsule(s) PO daily 05/02/2015 Inactive Celebrex 200 mg capsule RxNorm: 533056 1 Capsule(s) PO daily 01/12/2016 Inactive hydrocodone 7.5 mg-acetaminophen 325 mg tablet RxNorm: 642790 1 Tablet(s) PO Q6 PRN 05/03/2015 06/15/2015 Inactive Mobic 15 mg tablet RxNorm: 455638 1 Tablet(s) PO daily 201405/02/2015 Inactive hydrocodone 7.5 mg-acetaminophen 325 mg tablet RxNorm: 850126 1 Tablet(s) PO Q6 PRN 04/02/2015 05/02/2015 Inactive hydrocodone 5 mg-acetaminophen 325 mg tablet RxNorm: 970694 1 Tablet(s) PO Q6 as needed 12/11/2014 04/01/2015 Inactive Pennsaid 1.5 % topical drops RxNorm: 528708 40 Drop(s) TOP QID as needed 12/07/2014 02/04/2015 Inactive Apply 40 drops to each knee joint 4 times per day as needed for osteoarthritis pain Phenergan-Codeine syrup RxNorm: 5-10 Milliliter(s) PO QID as needed No Start Date Active estradiol 1 mg tablet RxNorm: 678750 1 Tablet(s) PO QHS No Start Date 03/15/2016 Inactive Xanax 0.5 mg tablet RxNorm: 764547 1 Tablet(s) PO Q6 as needed anxiety No Start Date 08/23/2016 Inactive Tylenol Extra Strength 500 mg tablet RxNorm: 279781 3 Tablet(s) PO BID after breakfast and after lunch No Start Date Inactive hydrocodone 5 mg-acetaminophen 325 mg tablet RxNorm: 152049 1 Tablet(s) PO Q6 as needed No Start Date 12/10/2014 Inactive ibuprofen 200 mg capsule RxNorm: 323629 4 Capsule(s) PO QID as needed No Start Date 04/01/2015 Inactive Medication Administered Medication Codes Instructions Start Date Status Kenalog 40 mg/mL suspension for injection RxNorm: 4001087 1.5Milliliter 01/11/2017 No longer Active Kenalog 40 mg/mL suspension for injection RxNorm: 7455538 Milliliter 02/28/2016 No longer Active Immunizations Vaccine Codes Date Status Influenza CVX: 141 03/16/2017 completed Pneumococcal (Adult) CVX: 33 03/16/2017 completed Assessments Condition Codes Effective Dates Ganglion, left hand ICD-10: M67.442 ICD-9: 727.43 05/29/2017 Essential (primary) hypertension ICD-10: I10 ICD-9: 401.9 05/29/2017 Generalized anxiety disorder ICD-10: F41.1 ICD-9: 308.0 05/29/2017 Other insomnia ICD-10: G47.09 ICD-9: 327.09 05/29/2017 Pain in right foot ICD-10: M79.671 ICD-9: [...] pain syndrome ICD-10: G89.4 ICD-9: 338.4 08/30/2015 Palpitations ICD-10: R00.2 ICD-9: 785.1 08/16/2015 Acute maxillary sinusitis, unspecified ICD-10: J01.00 ICD-9: 461.0 07/15/2015 Restless legs syndrome ICD-10: G25.81 ICD-9: 333.94 06/16/2015 Varicose veins of bilateral lower extremities with pain ICD- 10: I83.813 ICD-9: 454.8 04/02/2015 Superficial thrombophlebitis ICD-9: 451.9 12/02/2014 Osteoarthritis ICD-9: 715.90 12/02/2014 ABNORMAL WEIGHT GAIN ICD-9: 783.1 2014 Reason For Visit Reason For Visit Effective Dates Notes hypertension 05/29/2017 foot pain 04/20/2017 vaccination against influenza 03/16/2017 skin lesion 01/26/2017 cough 01/11/2017 insomnia 11/30/2016 insomnia 09/28/2016 depression 08/24/2016 depression 07/13/2016 myalgias 05/19/2016 depression 03/16/2016 sore throat 02/28/2016 depression 01/13/2016 medication follow up 09/27/2015 palpitations 08/30/2015 palpitations 08/16/2015 knee pain 07/15/2015 knee pain 06/16/2015 knee pain 04/02/2015 knee pain 12/02/2014 Results Observation Observation Code Item Item Code Result Date Estrogens Total 840673 ESTROGENS, TOTAL 54 pg/mL 05/24/2016 Magnesium Ord90 Mag 1.8 mg/dL 05/19/2016 Tsh Ord6 hTSH II 1.56 uIU/mL 05/19/2016 Progesterone Prog 0.03 ng/mL 05/19/2016 Comp Metabolic Shw319 NA 136 mEq/L 05/19/2016 Comp Metabolic Tew383 K 4.3 mEq/L 05/19/2016 Comp Metabolic Upa836 CL 100 mEq/L 05/19/2016 Comp Metabolic Hwp963 CO2 28.0 mEq/L 05/19/2016 Comp Metabolic Nzm806 ANION GAP 12 05/19/2016 Comp Metabolic Hhh336 GLUCOSE 138 mg/dL 05/19/2016 Comp Metabolic Brg657 Creat 0.7 mg/dL 05/19/2016 Comp Metabolic Ogi029 eGFR 89 ml/min/1.73m2 05/19/2016 Comp Metabolic Fnx866 BUN 15 mg/dL 05/19/2016 Comp Metabolic Adk228 B/C Ratio 20.5 Ratio 05/19/2016 Comp Metabolic Fte692 CALCIUM 9.7 mg/dL 05/19/2016 Comp Metabolic Mrq109 ALK PHOS 106 U/L 05/19/2016 Comp Metabolic Bgf486 AST(SGOT) 21 U/L 05/19/2016 Comp Metabolic Hgx828 ALT(SGPT) 24 U/L 05/19/2016 Comp Metabolic Cna774 BILI T 0.4 mg/dL 05/19/2016 Comp Metabolic Urd808 ALBUMIN 4.1 g/dL 05/19/2016 Comp Metabolic Ulu626 TPRO 7.1 g/dL 05/19/2016 Comp Metabolic Amw237 GLOB 3.0 g/dL 05/19/2016 Comp Metabolic Gbw736 A/G Ratio 1.4 Ratio 05/19/2016 Comp Metabolic Bcy328 Osmo 275 mOsmo 05/19/2016 Cbc With Differential [...] 86.5 fl 05/19/2016 Cbc With Differential Ord2 MCH 28.5 pg 05/19/2016 Cbc With Differential Ord2 [place]% 6.5 % 05/19/2016 Cbc With Differential Ord2 Eos% 0.8 % 05/19/2016 Cbc With Differential Ord2 MCHC 32.9 pg 05/19/2016 Cbc With Differential Ord2 Baso% 0.2 % 05/19/2016 Cbc With Differential Ord2 PLT 334 K/ul 05/19/2016 Cbc With Differential Ord2 Neut ABS# 5.77 K/ul 05/19/2016 Cbc With Differential Ord2 RDW 14.7 % 05/19/2016 Cbc With Differential Ord2 Lymph ABS# 2.33 K/ul 05/19/2016 Cbc With Differential Ord2 [place] ABS# 0.6 K/ul 05/19/2016 Cbc With Differential Ord2 Eos ABS# 0.1 K/ul 05/19/2016 Cbc With Differential Ord2 Baso ABS# 0.0 K/ul 05/19/2016 C RAP A SC [id number] Strep A Negative 02/28/2016 Tsh Ord6 hTSH [...] 26.2 pg 08/16/2015 Cbc With Differential Ord2 [place]% 7.1 % 08/16/2015 Cbc With Differential Ord2 [...] 2.32 K/ul 08/16/2015 Cbc With Differential Ord2 [place] ABS# 0.6 K/ul 08/16/2015 Cbc With Differential Ord2 Eos ABS# 0.1 K/ul 08/16/2015 Cbc With Differential Ord2 Baso ABS# 0.0 K/ul 08/16/2015 Cbc With Differential Ord2 New Analyzer Notice Please note new ref ranges starting 05-26-2015 due to implemntation of new five part differential hematolgy analyzer. 08/16/2015 Comp Metabolic Cge974 NA 132 mEq/L 08/16/2015 Comp Metabolic Sre856 K 3.6 mEq/L 08/16/2015 Comp Metabolic Hsh914 CL 99 mEq/L 08/16/2015 Comp Metabolic Dad340 CO2 23.0 mEq/L 08/16/2015 Comp Metabolic Gto182 ANION GAP 14 08/16/2015 Comp Metabolic Bni950 GLUCOSE 101 mg/dL 08/16/2015 Comp Metabolic Pns743 Creat 0.7 mg/dL 08/16/2015 Comp Metabolic Ngj442 eGFR 100 ml/min/1.73m2 08/16/2015 Comp Metabolic Blf895 BUN 10 mg/dL 08/16/2015 Comp Metabolic Htj573 B/C Ratio 15.2 Ratio 08/16/2015 Comp Metabolic Qmo049 CALCIUM 9.3 mg/dL 08/16/2015 Comp Metabolic Djk650 ALK PHOS 100 U/L 08/16/2015 Comp Metabolic Hir542 AST(SGOT) 14 U/L 08/16/2015 Comp Metabolic Ejh271 ALT(SGPT) 11 U/L 08/16/2015 Comp Metabolic Ctx677 BILI T 0.3 mg/dL 08/16/2015 Comp Metabolic Eym418 ALBUMIN 3.9 g/dL 08/16/2015 Comp Metabolic Rfx184 TPRO 7.1 g/dL 08/16/2015 Comp Metabolic Nua311 GLOB 3.2 g/dL 08/16/2015 Comp Metabolic Pbr104 A/G Ratio 1.2 Ratio 08/16/2015 Comp Metabolic Npq429 Osmo 264 mOsmo 08/16/2015 Lipid Ord30 CHOL 209 mg/dL 12/03/2014 Lipid Ord30 HDL 42.0 mg/dl 12/03/2014 Lipid Ord30 TRIG 219 mg/dL 12/03/2014 Lipid Ord30 LDL 123 mg/dL 12/03/2014 Lipid Ord30 C/HDL 5.0 Ratio 12/03/2014 Comp Metabolic Bxt764 NA 132 mEq/L 12/03/2014 Comp Metabolic Tud803 K 4.0 mEq/L 12/03/2014 Comp Metabolic Soh279 CL 101 mEq/L 12/03/2014 Comp Metabolic Eox114 CO2 22.0 mEq/L 12/03/2014 Comp Metabolic Kbv124 ANION GAP 13 12/03/2014 Comp Metabolic Ymc141 GLUCOSE 123 mg/dL 12/03/2014 Comp Metabolic Opx790 Creat 0.7 mg/dL 12/03/2014 Comp Metabolic Ulj046 eGFR 97 ml/min/1.73m2 12/03/2014 Comp Metabolic Mpk635 BUN 10 mg/dL 12/03/2014 Comp Metabolic Ify852 B/C Ratio 14.7 Ratio 12/03/2014 Comp Metabolic Kdw044 CALCIUM 9.2 mg/dL 12/03/2014 Comp Metabolic Omz168 ALK PHOS 88 U/L 12/03/2014 Comp Metabolic Lrc758 AST(SGOT) 18 U/L 12/03/2014 Comp Metabolic Xpq900 ALT(SGPT) 17 U/L 12/03/2014 Comp Metabolic Lvi271 BILI T 0.5 mg/dL 12/03/2014 Comp Metabolic Fdj316 ALBUMIN 3.9 g/dL 12/03/2014 Comp Metabolic Cis767 TPRO 6.8 g/dL 12/03/2014 Comp Metabolic Oeg634 GLOB 2.9 g/dL 12/03/2014 Comp Metabolic Vrb240 A/G Ratio 1.3 Ratio 12/03/2014 Comp Metabolic Jbn917 Osmo 265 mOsmo 12/03/2014 Tsh Ord6 hTSH II 1.13 uIU/mL 12/03/2014 D-Dimer D-DIMER 168 NG/ML 12/03/2014 D-Dimer 171426 COMMENT 12/03/2014 Cbc With Differential Ord2 WBC [...] of Systems System Result Effective Dates Constitutional No recent illness 2017 Constitutional No [...] status change 2017 Constitutional No recent illness 2016 Constitutional No [...] Result Effective Dates Notes Full Exam - Dermatology Integument insp & [...] head atraumatic 05/29/2017 None Full Exam - Orthopedics Constitutional general [...] lips 07/13/2016 None Full Exam - General 1994 Ears/Nose/Throat lips/teeth/gingiva Overall: normal dentition 07/13/2016 None [...] sounds 05/19/2016 None Full Exam - General 1994 [...] age 0712/02/2014 None Procedures Procedure Codes Date IMMUNIZATION ADMIN CPT -4: 18952 03/16/2017 FLU VAC NO PRSV 4 FLETCHER 3 YRS+ CPT-4: 32553 03/16/2017 Pneumococcal Polysaccharide Vaccine, 23-Valent, Ad CPT-4: 71611 03/16/2017 IMMUNIZATION ADMIN EACH ADD CPT-4: 88718 03/16/2017 TRIAMCINOLONE ACET INJ NOS CPT-4: J3301 01/11/2017 TRIAMCINOLONE ACET INJ NOS CPT-4: J3301 02/28/2016 Vital Signs Date Vital 05/29/2017 Blood Pressure 1: 136/82 Code : 8480-6 Heart Rate 1: 101 bpm Height: 5'6" SpO2: 96% Weight: 04/20/2017 Blood Pressure 1: 126/74 Code : 8480-6 BMI: 39.9 Code : 34771-2 Heart Rate 1 : 79 bpm Height: 5'6" SpO2: 97% Weight: 247 lbs 01/26/2017 Blood Pressure 1: 132/74 Code : 8480-6 BMI: 37.8 Code : 93549-5 Heart Rate 1 : 74 bpm Height: 5'6" SpO2: 97% Weight: 234 lbs 01/11/2017 Blood Pressure 1: 118/68 Code : 8480-6 BMI: 38.7 Code : 56893-1 Heart Rate 1 : 91 bpm Height: 5'6" SpO2: 96% Weight: 240 lbs 11/30/2016 Blood Pressure 1: 132/76 Code : 8480-6 BMI: 38.3 Code : 88679-9 Heart Rate 1 : 71 bpm Height: 5'6" SpO2: 92% Weight: 237 lbs 09/28/2016 Blood Pressure 1: 122/72 Code : 8480-6 BMI: 39.1 Code : 34314-5 Heart Rate 1 : 88 bpm Height: 5'6" SpO2: 94% Weight: 242 lbs 08/24/2016 Blood Pressure 1: 130/87 Code : 8480-6 BMI: 41.5 Code : 46647-6 Heart Rate 1 : 95 bpm Height: 5'6" Respiratory Rate: 16 bpm SpO2: 98% Temperature: 36.9 (C) / 98.5 (F ) Weight: 257 lbs 07/13/2016 Blood Pressure 1: 132/84 Code : 8480-6 BMI: 42.0 Code : 36266-8 Heart Rate 1 : 73 bpm Height: 5'6" SpO2: 97% Weight: 260 lbs 05/19/2016 Blood Pressure 1: 138/76 Code : 8480-6 BMI: 40.8 Code : 42411-5 Heart Rate 1 : 80 bpm Height: 5'6" SpO2: 98% Weight: 253 lbs 03/16/2016 Blood Pressure 1: 122/70 Code : 8480-6 BMI: 40.4 Code : 08057-0 Heart Rate 1 : 72 bpm Height: 5'6" SpO2: 98% Weight: 250 lbs 02/28/2016 Blood Pressure 1: 136/86 Code : 8480-6 BMI: 40.2 Code : 02664-3 Heart Rate 1 : 87 bpm Height: 5'6" SpO2: 96% Temperature: 36.3 (C) / 97.3 (F) Weight: 249 lbs 01/13/2016 Blood Pressure 1: 120/76 Code : 8480-6 BMI: 40.4 Code : 97422-0 Heart Rate 1 : 68 bpm Height: 5'6" SpO2: 97% Weight: 250 lbs 09/27/2015 Blood Pressure 1: 112/70 Code : 8480-6 BMI: 38.4 Code : 43573-4 Heart Rate 1 : 76 bpm Height: 5'6" SpO2: 98% Weight: 238 lbs 08/30/2015 Blood Pressure 1: 144/82 Code : 8480-6 BMI: 39.5 Code : 08629-7 Heart Rate 1 : 82 bpm Height: 5'6" SpO2: 97% Weight: 245 lbs 08/16/2015 Blood Pressure 1: 140/72 Code : 8480-6 BMI: 38.9 Code : 14445-2 Heart Rate 1 : 72 bpm Height: 5'6" SpO2: 97% Weight: 241 lbs 07/15/2015 Blood Pressure 1: 128/80 Code : 8480-6 BMI: 39.3 Code : 08318-5 Heart Rate 1 : 86 bpm Height: 5'6" SpO2: 98% Weight: 243 lbs 8 oz 06/16/2015 Blood Pressure 1: 146/86 Code : 8480-6 BMI: 39.6 Code : 20272-7 Heart Rate 1 : 76 bpm Height: 5'6" SpO2: 97% Weight: 245 lbs 8 oz 04/02/2015 Blood Pressure 1: 132/86 Code : 8480-6 BMI: 40.7 Code : 69728-4 Heart Rate 1 : 94 bpm Height: 5'6" SpO2: 98% Weight: 252 lbs 12/02/2014 Blood Pressure 1: 122/90 Code : 8480-6 BMI: 41.6 Code : 92162-0 Heart Rate 1 : 77 bpm Height: 5'6" SpO2: 95% Weight: 258 lbs Functional Status No Functional Status data History of Present Illness Symptom Name Status Result Effective Date Notes hypertension Pertinent Findings dizziness 05/29/2017 at night [...] erythema Triggers no known triggers 05/29/2017 None foot pain Location on the right [...] data Encounters Encounter Performer Location Codes Date 30324 EST. PATIENT, LEVEL III Diagnosis: Ganglion, left hand[ICD10: M67.442] Diagnosis: Essential (primary) hypertension[ICD10: I10] Diagnosis: Generalized anxiety disorder[ICD10: F41.1] Diagnosis: Other insomnia[ICD10: G47.09] Petra Trejo MD, [facility] CPT-4 : 77583 05/29/2017 18548 EST. PATIENT, LEVEL III Diagnosis: Pain in right foot[ICD10: M79.671] Petra Trejo MD, [facility] CPT-4: 76344 04/20/2017 82733 EST. PATIENT, LEVEL IV Diagnosis: Other insomnia[ICD10: G47.09] Diagnosis: Other skin changes[ICD10: R23.8] Petra Trejo MD, [facility] CPT- 4: 32893 01/26/2017 34069 EST. PATIENT, LEVEL IV Diagnosis: Acute bronchitis due to other specified organisms[ICD10: J20.8] Petra Trejo MD, [facility] CPT-4: 76437 01/11/2017 ([id number]) 62908 EST. PATIENT, LEVEL IV Diagnosis: Essential (primary) hypertension[ICD10: I10] Diagnosis: Other insomnia[ICD10: G47.09] Diagnosis: Primary generalized (osteo)arthritis[ICD10: M15.0] Diagnosis: Other obesity due to excess calories[ICD10: E66.09] Claudette Trejo MD, [facility] CPT-4: 27490 11/30/2016 ([id number]) 26904 EST. PATIENT, LEVEL III Diagnosis: Other obesity due to excess calories[ICD10: E66.09] Diagnosis: Other insomnia[ICD10: G47.09] Diagnosis: Generalized anxiety disorder[ICD10: F41.1] Claudette Trejo MD, [facility] CPT-4: 61432 09/28/2016 ([id number]) 73050 EST. PATIENT, LEVEL IV Diagnosis: Generalized anxiety disorder[ICD10: F41.1] Diagnosis: Major depressive disorder, recurrent, mild[ICD10: F33.0] Diagnosis: Other obesity due to excess calories[ICD10: E66.09] Diagnosis: Other insomnia[ICD10: G47.09] Claudette Trejo MD, [facility] CPT-4: 09584 08/24/2016 ([id number]) 68391 EST. PATIENT, LEVEL III Diagnosis: Other obesity due to excess calories[ICD10: E66.09] Diagnosis: Major depressive disorder, recurrent, moderate[ICD10: F33.1] Diagnosis: Low back pain[ICD10: M54.5] Heidy Trejo MD, [facility] CPT- 4: 88808 07/13/2016 27162 EST. PATIENT, LEVEL IV Diagnosis: Other muscle spasm[ICD10: M62.838] Diagnosis: Generalized anxiety disorder[ICD10: F41.1] Diagnosis: Major depressive disorder, recurrent, moderate[ICD10: F33.1] Diagnosis: Other insomnia[ICD10: G47.09] Petra Trejo MD, [facility] CPT-4 : 59258 05/19/2016 ([id number]) 37384 EST. PATIENT, LEVEL III Diagnosis: Generalized anxiety disorder[ICD10: F41.1] Diagnosis: Major depressive disorder, recurrent, moderate[ICD10: F33.1] Heidy Trejo MD, [facility] CPT-4: 51277 03/16/2016 ([id number]) 78795 EST. PATIENT, LEVEL III Diagnosis: Streptococcal pharyngitis[ICD10: J02.0] Claudette Trejo MD, [facility] CPT-4: 15253 02/28/2016 ([id number]) 65695 EST. PATIENT, LEVEL III Diagnosis: Generalized anxiety disorder[ICD10: F41.1] Diagnosis: Other obesity due to excess calories[ICD10: E66.09] Heidy Trejo MD, [facility] CPT-4: 21956 01/13/2016 ([id number]) 67610 EST. PATIENT, LEVEL III Diagnosis: Generalized anxiety disorder[ICD10: F41.1] Diagnosis: Major depressive disorder, recurrent, unspecified[ICD10: F33.9] Heidy Trejo MD, [facility] CPT-4: 62084 09/27/2015 27106 EST. PATIENT, LEVEL IV Diagnosis: Chronic pain syndrome[ICD10: G89.4] Diagnosis: Other obesity due to excess calories[ICD10: E66.09] Diagnosis: Essential (primary) hypertension[ICD10: I10] Diagnosis: Generalized anxiety disorder[ICD10: F41.1] Diagnosis: Excessive and frequent menstruation with regular cycle[ICD10: N92.0] Diagnosis: Pain in right knee[ICD10: M25.561] Petra Trejo MD, [facility] CPT-4: 57270 08/30/2015 48636 EST. PATIENT, LEVEL IV Diagnosis: Palpitations[ICD10: R00.2] Diagnosis: Other obesity due to excess calories[ICD10: E66.09] Petra Trejo MD, [facility] CPT-4: 53710 08/16/2015 ([id number]) 60484 EST. PATIENT, LEVEL IV Diagnosis: Pain in right knee[ICD10: M25.561] Diagnosis: Primary generalized (osteo)arthritis[ICD10: M15.0] Diagnosis: Acute maxillary sinusitis, unspecified[ICD10: J01.00] Heidy Trejo MD, [facility] CPT-4: 89296 07/15/2015 ([id number]) 00114 EST. PATIENT, LEVEL IV Diagnosis: Primary generalized (osteo)arthritis[ICD10: M15.0] Diagnosis: Restless legs syndrome[ICD10: G25.81] Diagnosis: Chronic pain syndrome[ICD10: G89.4] Heidy Trejo MD, [facility] CPT-4: 35914 06/16/2015 ([id number]) 06182 EST. PATIENT, LEVEL III Diagnosis: Primary generalized (osteo)arthritis[ICD10: M15.0] Diagnosis: Varicose veins of bilateral lower extremities with pain[ICD10: I83.813] [facility] CPT-4: 56759 ([id number]) OFFICE VISIT, NEW - LEVEL 3 Diagnosis: Osteoarthritis[ICD9: 715.90] Diagnosis: ABNORMAL WEIGHT GAIN[ICD9: 783.1] Diagnosis: Superficial thrombophlebitis[ICD9: 451.9] [facility] CPT-4: 62746 12/02/2014 Plan of Care Planned Activity Notes Codes Status Date Visit Plan: Chronic Depression and anxiety - [...] - will refer to Dr. Quinn 05/29/2017 Patient Education: Patient Medication Summary Completed 05/29/2017 Care Plan: Referral Order SNOMED-CT : [id number] Pending 05/29/2017 [facility]ment[id number] [facility] min[facility] Moderate 05/28/2017 Appointment: [id number] ([facility] min) Moderate 05/21/2017 Visit Plan: Right heel pain - will send RX, pt is to do stretches as directed - The pt is to use prn antiinflammatories to manage acute pain. The patient is to call the office if the pain is worsening or does not improve. 04/20/2017 Appointment: Petra Rivas WPtel: [address] [place], [place] [id number] (30 min) Complex 04/20/2017 Patient Education: Patient Medication Summary Completed 04/20/2017 Appointment: Petra Rivas WPtel: [phone] [phone] (30 min) Complex 03/29/2017 Patient Education: Patient Medication Summary Completed 03/16/2017 Referral: Maycol Quijano Referral Initiated 02/08/2017 Care Plan: Referral Order SNOMED-CT : [id number] Pending 01/28/2017 Visit Plan: Insomnia - Pt [...] concerns. 01/26/2017 Appointment: Petra Rivas WPtel: [phone] [phone] (30 min) Complex 01/26/2017 Patient Education: Patient [...] acutely worsen. 01/11/2017 Appointment: Petra Rivas WPtel: [facility] (15 min) Moderate 01/11/2017 Patient Education: Patient [...] on use. 11/30/2016 Appointment: Claudette Savage WPtel: [address] [place] [address] (15 min) Moderate 11/30/2016 Patient Education: Patient Medication Summary Completed 11/30/2016 Patient Education: Obesity Completed 11/30/2016 Care Plan: BMI Above normal followup SELF-MGMT EDUC & TRAIN 1 PT Pending 2016 Visit Plan: Mcyxcoa-wbvaumvebp-hnvayaxh with increase in cymbalta-no changes Insomnia-RX for belsomra provided and instructed on use Obesity-patient down 15#-no changes-continue diet/exercise-follow up in 2 months 09/28/2016 Appointment: Claudette Savage WPtel: [address] [place], [place] [phone] (15 min) Moderate 09/28/2016 Patient Education: Patient Medication Summary Completed 09/28/2016 Patient Education: Obesity Completed 09/28/2016 Care Plan: BMI Above normal followup SELF-MGMT EDUC & TRAIN 1 PT Pending 2016 Visit Plan: Hpmtkbg-rjklkekvoo-qsenvcdq-increase cymbalta to 60mg daily. Increase xanax as [...] for insomnia/anxiety 08/24/2016 Appointment: Claudette Savage WPtel: [address] [place], [place] [phone] (15 min) Moderate 08/24/2016 Patient Education: Patient [...] improving. 07/13/2016 Appointment: Heidy Trejo WPtel: [phone] [phone] (15 min) Moderate 07/13/2016 Patient Education: Patient [...] time insomnia. 05/19/2016 [phone] ([facility]) Complex 05/19/2016 Patient Education: Patient [...] this patient. 03/16/2016 [facility]ment[phone] ([facility] min) Moderate 03/16/2016 Patient Education: Patient [...] the swab. 02/28/2016 Appointment: Claudette Savage WPtel: [phone] [phone] [place] (10 min) Simple 02/28/2016 Patient Education: Patient [...] pills twice daily. stop lexapro 01/13/2016 Appointment: Heidy Trejo WPtel: [phone] [facility] (15 min) Moderate 01/13/2016 Patient Education: Patient [...] 09/27/2015 Care Plan: Referral Order SNOMED-CT : [id number] Pending 08/31/2015 Visit Plan: Anxiety - the [...] pain symptoms. 07/15/2015 Appointment: Heidy Trejo WPtel: [facility] (15 min) Moderate 07/15/2015 Patient Education: Patient [...] vein clinic 04/02/2015 Appointment: Claudette Savage WPtel[phone] (15 min) Moderate 04/02/2015 Patient Education: Patient [...] Summary Completed 12/02/2014 Referral: Belle Hoffman WPtel: [facility] they will call and set the appt with her Initiated Referral: Maycol Quijano Referral Initiated Referral: Belle Hoffman WPtel: [phone] [phone] Referral Initiated Referral: Jignesh Quinn [facility] Referral Initiated Instructions Comment . Hypertension - [...] 1 mg at night for anxiety . Gezawsa-hvpkmehfpu-thatwedx-increase cymbalta to 60mg daily. Increase xanax as [...] a medication such as mirapex or requip. contrave website contrave 1 pill nightly x [...] 2 pills twice daily. stop lexapro . Arthritis- occasionally uncontrolled symptoms- recommend pt [...] worsening or does not improve. BELSOMRA . Katwkfz-zupoprzgwi-lmvphoqp with increase in cymbalta-no changes Insomnia-RX for [...]
--- OUTSIDE RECORDS SUMMARY | 2017-08-07 12:27 | XMS REPORT | CCD ---
Author Author [place] Organization [facility] Address [address] [place] [address] Phone Care Team Providers Care Accounts Payable Processor Name Role Phone PP Unavailable CCM Unavailable Summary Purpose Interface Exchange Insurance Providers Payer name Policy type / Coverage type Covered republican ID Effective Begin Date Effective End Date [facility] Commercial Insurance [id number] Unknown Family history Brother Diagnosis Age At [...] Description Effective Dates Tobacco history SNOMED CT: 4948544 Quit less than 5 years ago 04/02/2015 [...] Fill Instructions Keflex 500 mg capsule RxNorm: 693724 1 Capsule(s) PO TID 201707/03/2017 Active ceftriaxone 500 mg solution for injection RxNorm: 0526086 1 Milliliter(s) Inj 06/27/2017 06/27/2017 Inactive Ambien 10 mg tablet RxNorm: 079518 1 Tablet(s) PO daily 201708/26/2017 Active tramadol 50 mg tablet RxNorm: 059782 1 Tablet(s) PO TID as needed 05/29/2017 07/27/2017 Active Xanax 1 mg tablet RxNorm: 733890 1 Tablet(s) PO BID PRN as needed anxiety 05/21/2017 No Stop Date Active alprazolam 1 mg tablet RxNorm: 944808 1 Tablet(s) PO BID as needed 05/21/2017 06/19/2017 Inactive Celebrex 200 mg capsule RxNorm: 582659 1 CAPSULE(S) PO BID 10/30/2017 Active hydrocodone 5 mg-acetaminophen 325 mg tablet RxNorm: 110190 1 Tablet(s) PO QID as needed 04/20/2017 No Stop Date Active Cymbalta 60 mg capsule,delayed release RxNorm: 407964 1 Capsule(s) PO daily 04/20/2017 11/15/2017 Active prednisone 20 mg tablet RxNorm: 976998 2 Tablet(s) PO daily 12/201604/24/2017 Inactive Ambien 10 mg tablet RxNorm: 029872 Tablet(s) PO 04/20/2017 05/28/2017 Inactive Victoza 2-Marek 0.6 mg/0.1 mL (18 mg/3 mL) subcutaneous pen injector RxNorm: 794505 INJECT 1.8 MG SUB-Q ONCE DAILY 03/26/2017 09/21/2017 Active diazepam 2 mg tablet RxNorm: 827804 1 Tablet(s) PO QHS as needed insomnia 01/28/2017 05/07/2017 Inactive Victoza 2-Marek 0.6 mg/0.1 mL (18 mg/3 mL) subcutaneous pen injector RxNorm: 456768 1.8 Milligram(s) SQ daily 01/26/201703/25 Inactive dispense quantity sufficient albuterol sulfate 2.5 mg/3 mL (0.083 %) solution for nebulization RxNorm: 555900 3 Milliliter(s) INH UD 01/11/2017 No Stop Date Active Tussionex Pennkinetic ER 10 mg-8 mg/5 mL suspension, extended release RxNorm: 8184904 5 Milliliter(s) PO BID 01/11/2017 01/15/2017 Inactive Xanax 1 mg tablet RxNorm: 171464 1 Tablet(s) PO BID PRN as needed anxiety 01/11/2017 05/20/2017 Inactive Zithromax Z-Marek 250 mg tablet RxNorm: 559966 1 Tablet(s) PO UD 01/11/2017 01/15/2017 Inactive zpack prednisone 20 mg tablet RxNorm: 711774 2 Tablet(s) PO daily 01/15/2017 Inactive Kenalog 40 mg/mL suspension for injection RxNorm: 6786286 1.5 Milliliter(s) Inj 01/11/2017 01/11/2017 Inactive Ambien 5 mg tablet RxNorm: 240293 1 Tablet(s) PO HS PRN 11/3001/28/2017 Inactive Celebrex 200 mg capsule RxNorm: 849118 1 Capsule(s) PO BID 02/27/2017 Inactive trazodone 50 mg tablet RxNorm: 693453 1/2 to 1 Tablet(s) PO QHS 10/13/2016 10/12/2016 Inactive trazodone 50 mg tablet RxNorm: 052858 1/2 to 1 Tablet(s) PO QHS 10/13/2016 11/29/2016 Inactive Belsomra 10 mg tablet RxNorm: 6112481 1 Tablet(s) PO QHS 201611/29/2016 Inactive may increase to 20mg if 10mg not effective Cymbalta 60 mg capsule,delayed release RxNorm: 572191 1 Capsule(s) PO daily 08/24/2016 03/21/2017 Inactive Xanax 1 mg tablet RxNorm: 500322 1 Tablet(s) PO BID PRN as needed anxiety 08/24/2016 01/10/2017 Inactive Victoza 2-Marek 0.6 mg/0.1 mL (18 mg/3 mL) subcutaneous pen injector RxNorm: 936832 Milligram(s) SQ 08/24/2016 08/23/2016 Inactive Victoza 2-Marek 0.6 mg/0.1 mL (18 mg/3 mL) subcutaneous pen injector RxNorm: 073899 1.8 Milligram(s) SQ 08/24/2016 01/25/2017 Inactive Vitamin D2 50,000 unit capsule RxNorm: 249695 1 Capsule(s) PO QW 07/13/2016 10/10/2016 Inactive Cymbalta 30 mg capsule,delayed release RxNorm: 938463 1 Capsule(s) PO daily 07/13/2016 08/23/2016 Inactive Belviq XR 20 mg tablet,extended release RxNorm: 3790998 1 Tablet(s) PO daily 05/30/2016 05/29/2016 Inactive prednisone 20 mg tablet RxNorm: 737782 2 Tablet(s) PO daily 06/03/2016 Inactive prednisone 20 mg tablet RxNorm: 546738 2 Tablet(s) PO daily 05/29/2016 Inactive Belviq XR 20 mg tablet,extended release RxNorm: 2757221 1 Tablet(s) PO daily 05/30/2016 06/28/2016 Inactive cyclobenzaprine 5 mg tablet RxNorm: 737122 1-2 Tablet(s) PO TID as needed 05/19/2016 05/23/2016 Inactive metoprolol succinate ER 25 mg tablet,extended release 24 hr RxNorm: 990827 1 Tablet(s) PO QPM 04/10/2016 04/13/2016 Inactive metoprolol succinate ER 25 mg tablet,extended release 24 hr RxNorm: 296608 1 Tablet(s) PO QPM 04/10/2016 04/09/2016 Inactive escitalopram 10 mg tablet RxNorm: 640682 1 Tablet(s) PO daily 03/16/2016 07/12/2016 Inactive estradiol 1 mg tablet RxNorm: 213304 1 Tablet(s) PO every other day 03/16/2016 05/15/2016 Inactive Kenalog 40 mg/mL suspension for injection RxNorm: 8427420 Milliliter(s) Inj 02/28/2016 02/28/2016 Inactive Zithromax Z-Marek 250 mg tablet RxNorm: 520763 1 Tablet(s) PO UD 02/28/2016 03/03/2016 Inactive zpack Lexapro 10 mg tablet RxNorm: 114302 1 Tablet(s) PO daily 201502/27/2016 Inactive Lexapro 10 mg tablet RxNorm: 369006 1 Tablet(s) PO daily 201509/26/2015 Inactive Vimovo 500 mg-20 mg tablet,immediate and delay release RxNorm: 104985 1 Tablet(s) PO BID as needed for pain 08/30/201509/25 Inactive azithromycin 250 mg tablet RxNorm: 617625 1 Tablet(s) PO UD 2 pills on day #1, then one pill daily x 4 days 07/15/2015 Inactive hydrocodone 10 mg-acetaminophen 325 mg tablet RxNorm: 662002 1 Tablet(s) PO QID 06/16/2015 01/12/2016 Inactive pramipexole 0.5 mg tablet RxNorm: 041726 1 Tablet(s) PO QPM 07/201507/14/2015 Inactive Celebrex 200 mg capsule RxNorm: 417571 1 Capsule(s) PO daily 05/02/2015 Inactive Celebrex 200 mg capsule RxNorm: 272149 1 Capsule(s) PO daily 01/12/2016 Inactive hydrocodone 7.5 mg-acetaminophen 325 mg tablet RxNorm: 325158 1 Tablet(s) PO Q6 PRN 05/03/2015 06/15/2015 Inactive Mobic 15 mg tablet RxNorm: 362831 1 Tablet(s) PO daily 201405/02/2015 Inactive hydrocodone 7.5 mg-acetaminophen 325 mg tablet RxNorm: 061277 1 Tablet(s) PO Q6 PRN 04/02/2015 05/02/2015 Inactive hydrocodone 5 mg-acetaminophen 325 mg tablet RxNorm: 399397 1 Tablet(s) PO Q6 as needed 12/11/2014 04/01/2015 Inactive Pennsaid 1.5 % topical drops RxNorm: 245166 40 Drop(s) TOP QID as needed 12/07/2014 02/04/2015 Inactive Apply 40 drops to each knee joint 4 times per day as needed for osteoarthritis pain Phenergan-Codeine syrup RxNorm: 5-10 Milliliter(s) PO QID as needed No Start Date Active estradiol 1 mg tablet RxNorm: 871554 1 Tablet(s) PO QHS No Start Date 03/15/2016 Inactive Xanax 0.5 mg tablet RxNorm: 085229 1 Tablet(s) PO Q6 as needed anxiety No Start Date 08/23/2016 Inactive Tylenol Extra Strength 500 mg tablet RxNorm: 873352 3 Tablet(s) PO BID after breakfast and after lunch No Start Date Inactive hydrocodone 5 mg-acetaminophen 325 mg tablet RxNorm: 082538 1 Tablet(s) PO Q6 as needed No Start Date 12/10/2014 Inactive ibuprofen 200 mg capsule RxNorm: 596689 4 Capsule(s) PO QID as needed No Start Date 04/01/2015 Inactive Medication Administered Medication Codes Instructions Start Date Status ceftriaxone 500 mg solution for injection RxNorm: 1723665 1Milliliter 06/27/2017 No longer Active Kenalog 40 mg/mL suspension for injection RxNorm: 7166383 1.5Milliliter 01/11/2017 No longer Active Kenalog 40 mg/mL suspension for injection RxNorm: 9993243 Milliliter 02/28/2016 No longer Active Immunizations Vaccine [...] Item Item Code Result Date Free T4 Opd499 FREE T4 0.76 ng/dL 05/21/2017 Tsh Ord6 hTSH II 1.27 uIU/mL 05/21/2017 Comp Metabolic Uyi037 NA 140 mEq/L 05/21/2017 Comp Metabolic Utj254 K 3.9 mEq/L 05/21/2017 Comp Metabolic Zwf992 CL 101 mEq/L 05/21/2017 Comp Metabolic Juy376 CO2 28.0 mEq/L 05/21/2017 Comp Metabolic Sqv285 ANION GAP 15 05/21/2017 Comp Metabolic Jpy675 GLUCOSE 155 mg/dL 05/21/2017 Comp Metabolic Npf773 Creat 0.7 mg/dL 05/21/2017 Comp Metabolic Mcl279 eGFR 87 ml/min/1.73m2 05/21/2017 Comp Metabolic Gxi534 BUN 16 mg/dL 05/21/2017 Comp Metabolic Vru378 B/C Ratio 21.6 Ratio 05/21/2017 Comp Metabolic Yfg440 CALCIUM 9.4 mg/dL 05/21/2017 Comp Metabolic Lze145 ALK PHOS 132 U/L 05/21/2017 Comp Metabolic Jws573 AST(SGOT) 16 U/L 05/21/2017 Comp Metabolic Vuz949 ALT(SGPT) 20 U/L 05/21/2017 Comp Metabolic Vem916 BILI T 0.4 mg/dL 05/21/2017 Comp Metabolic Pce469 ALBUMIN 4.0 g/dL 05/21/2017 Comp Metabolic Sxy849 TPRO 6.7 g/dL 05/21/2017 Comp Metabolic Gpm951 GLOB 2.7 g/dL 05/21/2017 Comp Metabolic Bqd675 A/G Ratio 1.5 Ratio 05/21/2017 Comp Metabolic Vgd172 Osmo 284 mOsmo 05/21/2017 Cbc With Differential [...] 18.8 % 05/21/2017 Cbc With Differential Ord2 [place]% 5.5 % 05/21/2017 Cbc With Differential Ord2 [...] 2.65 K/ul 05/21/2017 Cbc With Differential Ord2 [place] ABS# 0.8 K/ul 05/21/2017 Cbc With Differential Ord2 Eos ABS# 0.1 K/ul 05/21/2017 Cbc With Differential Ord2 Baso ABS# 0.0 K/ul 05/21/2017 Estrogens Total 959462 ESTROGENS, TOTAL 54 pg/mL 05/24/2016 Magnesium Ord90 Mag 1.8 mg/dL 05/19/2016 Tsh Ord6 hTSH II 1.56 uIU/mL 05/19/2016 Progesterone Prog 0.03 ng/mL 05/19/2016 Comp Metabolic Bkf398 NA 136 mEq/L 05/19/2016 Comp Metabolic Nxn327 K 4.3 mEq/L 05/19/2016 Comp Metabolic Lvx561 CL 100 mEq/L 05/19/2016 Comp Metabolic Qjv686 CO2 28.0 mEq/L 05/19/2016 Comp Metabolic Ayj742 ANION GAP 12 05/19/2016 Comp Metabolic Zzj981 GLUCOSE 138 mg/dL 05/19/2016 Comp Metabolic Vrr401 Creat 0.7 mg/dL 05/19/2016 Comp Metabolic Mrz253 eGFR 89 ml/min/1.73m2 05/19/2016 Comp Metabolic Rgg828 BUN 15 mg/dL 05/19/2016 Comp Metabolic Oiz502 B/C Ratio 20.5 Ratio 05/19/2016 Comp Metabolic Lkh875 CALCIUM 9.7 mg/dL 05/19/2016 Comp Metabolic Vhe111 ALK PHOS 106 U/L 05/19/2016 Comp Metabolic Bru125 AST(SGOT) 21 U/L 05/19/2016 Comp Metabolic Rkt522 ALT(SGPT) 24 U/L 05/19/2016 Comp Metabolic Evt433 BILI T 0.4 mg/dL 05/19/2016 Comp Metabolic Nvp996 ALBUMIN 4.1 g/dL 05/19/2016 Comp Metabolic Vgg588 TPRO 7.1 g/dL 05/19/2016 Comp Metabolic Tdn028 GLOB 3.0 g/dL 05/19/2016 Comp Metabolic Rwm890 A/G Ratio 1.4 Ratio 05/19/2016 Comp Metabolic Zsb215 Osmo 275 mOsmo 05/19/2016 Cbc With Differential [...] 86.5 fl 05/19/2016 Cbc With Differential Ord2 [place]% 6.5 % 05/19/2016 Cbc With Differential Ord2 [...] K/ul 05/19/2016 Cbc With Differential Ord2 [place] ABS# 0.6 K/ul 05/19/2016 Cbc With Differential Ord2 Eos ABS# 0.1 K/ul 05/19/2016 Cbc With Differential Ord2 Baso ABS# 0.0 K/ul 05/19/2016 C RAP A SC [id number] Strep A Negative 02/28/2016 Tsh Ord6 hTSH [...] pg 08/16/2015 Cbc With Differential Ord2 [place]% 7.1 % 08/16/2015 Cbc With Differential Ord2 [...] K/ul 08/16/2015 Cbc With Differential Ord2 [place] ABS# 0.6 K/ul 08/16/2015 Cbc With Differential Ord2 Eos ABS# 0.1 K/ul 08/16/2015 Cbc With Differential Ord2 Baso ABS# 0.0 K/ul 08/16/2015 Cbc With Differential Ord2 New Analyzer Notice Please note new ref ranges starting 05-26-2015 due to implemntation of new five part differential hematolgy analyzer. 08/16/2015 Comp Metabolic Fbu956 NA 132 mEq/L 08/16/2015 Comp Metabolic Wlc126 K 3.6 mEq/L 08/16/2015 Comp Metabolic Vlw052 CL 99 mEq/L 08/16/2015 Comp Metabolic Zyd854 CO2 23.0 mEq/L 08/16/2015 Comp Metabolic Pll694 ANION GAP 14 08/16/2015 Comp Metabolic Ejc819 GLUCOSE 101 mg/dL 08/16/2015 Comp Metabolic Tjz555 Creat 0.7 mg/dL 08/16/2015 Comp Metabolic Lej707 eGFR 100 ml/min/1.73m2 08/16/2015 Comp Metabolic Whq617 BUN 10 mg/dL 08/16/2015 Comp Metabolic Syg646 B/C Ratio 15.2 Ratio 08/16/2015 Comp Metabolic Bwp228 CALCIUM 9.3 mg/dL 08/16/2015 Comp Metabolic Wiu135 ALK PHOS 100 U/L 08/16/2015 Comp Metabolic Nqu271 AST(SGOT) 14 U/L 08/16/2015 Comp Metabolic Ook056 ALT(SGPT) 11 U/L 08/16/2015 Comp Metabolic Srm683 BILI T 0.3 mg/dL 08/16/2015 Comp Metabolic Tpb663 ALBUMIN 3.9 g/dL 08/16/2015 Comp Metabolic Wfp754 TPRO 7.1 g/dL 08/16/2015 Comp Metabolic Ijy869 GLOB 3.2 g/dL 08/16/2015 Comp Metabolic Pnf077 A/G Ratio 1.2 Ratio 08/16/2015 Comp Metabolic Juf216 Osmo 264 mOsmo 08/16/2015 Lipid Ord30 CHOL 209 mg/dL 12/03/2014 Lipid Ord30 HDL 42.0 mg/dl 12/03/2014 Lipid Ord30 TRIG 219 mg/dL 12/03/2014 Lipid Ord30 LDL 123 mg/dL 12/03/2014 Lipid Ord30 C/HDL 5.0 Ratio 12/03/2014 Comp Metabolic Kdn260 NA 132 mEq/L 12/03/2014 Comp Metabolic Hvg466 K 4.0 mEq/L 12/03/2014 Comp Metabolic Rik434 CL 101 mEq/L 12/03/2014 Comp Metabolic Dix110 CO2 22.0 mEq/L 12/03/2014 Comp Metabolic Mfo868 ANION GAP 13 12/03/2014 Comp Metabolic Ekl353 GLUCOSE 123 mg/dL 12/03/2014 Comp Metabolic Ako862 Creat 0.7 mg/dL 12/03/2014 Comp Metabolic Ejk738 eGFR 97 ml/min/1.73m2 12/03/2014 Comp Metabolic Zjk813 BUN 10 mg/dL 12/03/2014 Comp Metabolic Dba259 B/C Ratio 14.7 Ratio 12/03/2014 Comp Metabolic Vni222 CALCIUM 9.2 mg/dL 12/03/2014 Comp Metabolic Bvf783 ALK PHOS 88 U/L 12/03/2014 Comp Metabolic Yny121 AST(SGOT) 18 U/L 12/03/2014 Comp Metabolic Uum335 ALT(SGPT) 17 U/L 12/03/2014 Comp Metabolic Ncj821 BILI T 0.5 mg/dL 12/03/2014 Comp Metabolic Zuf346 ALBUMIN 3.9 g/dL 12/03/2014 Comp Metabolic Wfd087 TPRO 6.8 g/dL 12/03/2014 Comp Metabolic Xuf175 GLOB 2.9 g/dL 12/03/2014 Comp Metabolic Jhu640 A/G Ratio 1.3 Ratio 12/03/2014 Comp Metabolic Yqd681 Osmo 265 mOsmo 12/03/2014 Tsh Ord6 hTSH II 1.13 uIU/mL 12/03/2014 D-Dimer D-DIMER 168 NG/ML 12/03/2014 D-Dimer 135822 COMMENT 12/03/2014 Cbc With Differential Ord2 WBC [...] Procedure Codes Date THER/PROPH/DIAG INJ SC/IM CPT-4: 08801 06/27/2017 ROCEPHIN, PER 250 MG CPT-4: J0696 06/27/2017 IMMUNIZATION ADMIN CPT -4: 67372 03/16/2017 FLU VAC NO PRSV 4 FLETCHER 3 YRS+ CPT-4: 98895 03/16/2017 Pneumococcal Polysaccharide Vaccine, 23-Valent, Ad CPT-4: 23036 03/16/2017 IMMUNIZATION ADMIN EACH ADD CPT-4: 65247 03/16/2017 TRIAMCINOLONE ACET INJ NOS CPT-4: J3301 01/11/2017 TRIAMCINOLONE ACET INJ NOS CPT-4: J3301 02/28/2016 Vital Signs Date Vital 06/27/2017 Blood Pressure 1: 128/80 Code : 8480-6 BMI: 33.9 Code : 07737-5 Heart Rate 1 : 85 bpm Height: [...] Code : 8480-6 BMI: 39.9 Code : 11436-5 Heart Rate 1 : 79 bpm Height: 5'6" SpO2: 97% Weight: 247 lbs 01/26/2017 Blood Pressure 1: 13274 Code : 8480-6 BMI: 37.8 Code : 45148-6 Heart Rate 1 : 74 bpm Height: 5'6" SpO2: 97% Weight: 234 lbs 01/11/2017 Blood Pressure 1: 118/68 Code : 8480-6 BMI: 38.7 Code : 92042-4 Heart Rate 1 : 91 bpm Height: 5'6" SpO2: 96% Weight: 240 lbs 11/30/2016 Blood Pressure 1: 132/76 Code : 8480-6 BMI: 38.3 Code : 32163-1 Heart Rate 1 : 71 bpm Height: 5'6" SpO2: 92% Weight: 237 lbs 09/28/2016 Blood Pressure 1: 122/72 Code : 8480-6 BMI: 39.1 Code : 47414-3 Heart Rate 1 : 88 bpm Height: 5'6" SpO2: 94% Weight: 242 lbs 08/24/2016 Blood Pressure 1: 130/87 Code : 8480-6 BMI: 41.5 Code : 25739-8 Heart Rate 1 : 95 bpm Height: 5'6" Respiratory Rate: 16 bpm SpO2: 98% Temperature: 36.9 (C) / 98.5 (F ) Weight: 257 lbs 07/13/2016 Blood Pressure 1: 132/84 Code : 8480-6 BMI: 42.0 Code : 79286-3 Heart Rate 1 : 73 bpm Height: 5'6" SpO2: 97% Weight: 260 lbs 05/19/2016 Blood Pressure 1: 138/76 Code : 8480-6 BMI: 40.8 Code : 34478-6 Heart Rate 1 : 80 bpm Height: 5'6" SpO2: 98% Weight: 253 lbs 03/16/2016 Blood Pressure 1: 122/70 Code : 8480-6 BMI: 40.4 Code : 32688-9 Heart Rate 1 : 72 bpm Height: 5'6" SpO2: 98% Weight: 250 lbs 02/28/2016 Blood Pressure 1: 136/86 Code : 8480-6 BMI: 40.2 Code : 46204-4 Heart Rate 1 : 87 bpm Height: 5'6" SpO2: 96% Temperature: 36.3 (C) / 97.3 (F) Weight: 249 lbs 01/13/2016 Blood Pressure 1: 120/76 Code : 8480-6 BMI: 40.4 Code : 09756-8 Heart Rate 1 : 68 bpm Height: 5'6" SpO2: 97% Weight: 250 lbs 09/27/2015 Blood Pressure 1: 112/70 Code : 8480-6 BMI: 38.4 Code : 85638-9 Heart Rate 1 : 76 bpm Height: 5'6" SpO2: 98% Weight: 238 lbs 08/30/2015 Blood Pressure 1: 144/82 Code : 8480-6 BMI: 39.5 Code : 04816-2 Heart Rate 1 : 82 bpm Height: 5'6" SpO2: 97% Weight: 245 lbs 08/16/2015 Blood Pressure 1: 140/72 Code : 8480-6 BMI: 38.9 Code : 49178-7 Heart Rate 1 : 72 bpm Height: 5'6" SpO2: 97% Weight: 241 lbs 07/15/2015 Blood Pressure 1: 128/80 Code : 8480-6 BMI: 39.3 Code : 15407-1 Heart Rate 1 : 86 bpm Height: 5'6" SpO2: 98% Weight: 243 lbs 8 oz 06/16/2015 Blood Pressure 1: 146/86 Code : 8480-6 BMI: 39.6 Code : 12643-0 Heart Rate 1 : 76 bpm Height: 5'6" SpO2: 97% Weight: 245 lbs 8 oz 04/02/2015 Blood Pressure 1: 132/86 Code : 8480-6 BMI: 40.7 Code : 86786-0 Heart Rate 1 : 94 bpm Height: 5'6" SpO2: 98% Weight: 252 lbs 12/02/2014 Blood Pressure 1: 122/90 Code : 8480-6 BMI: 41.6 Code : 24974-4 Heart Rate 1 : 77 bpm Height: [...] data Encounters Encounter Performer Location Codes Date 94164 EST. PATIENT, LEVEL III Diagnosis: Acute laryngopharyngitis[ICD10: J06.0] Diagnosis: Other allergic rhinitis[ICD10: J30.89] [facility] CPT-4: 69715 06/27/2017 59601 EST. PATIENT, LEVEL III Diagnosis: Ganglion, left hand[ICD10: M67.442] Diagnosis: Essential (primary) hypertension[ICD10: I10] Diagnosis: Generalized anxiety disorder[ICD10: F41.1] Diagnosis: Other insomnia[ICD10: G47.09] Petra [facility]jo MD, [facility] CPT-4 : 00187 05/29/2017 07810 EST. PATIENT, LEVEL III Diagnosis: Essential (primary) hypertension[ICD10: I10] Diagnosis: Palpitations[ICD10: R00.2] Diagnosis: Generalized anxiety disorder[ICD10: F41.1] Petra Trejo MD, [facility] CPT-4: 80071 05/21/2017 87336 EST. PATIENT, LEVEL III Diagnosis: Pain in right foot[ICD10: M79.671] Petra Trejo MD, [facility] CPT-4: 61518 04/20/2017 66140 EST. PATIENT, LEVEL IV Diagnosis: Other insomnia[ICD10: G47.09] Diagnosis: Other skin changes[ICD10: R23.8] Petra Trejo MD, [facility] CPT- 4: 04140 01/26/2017 85940 EST. PATIENT, LEVEL IV Diagnosis: Acute bronchitis due to other specified organisms[ICD10: J20.8] Petra Trejo MD, [facility] CPT-4: 25444 01/11/2017 ([id number]) 52741 EST. PATIENT, LEVEL IV Diagnosis: Essential (primary) hypertension[ICD10: I10] Diagnosis: Other insomnia[ICD10: G47.09] Diagnosis: Primary generalized (osteo)arthritis[ICD10: M15.0] Diagnosis: Other obesity due to excess calories[ICD10: E66.09] Claudette Trejo MD, [facility] CPT-4: 94728 11/30/2016 ([id number]) 75332 EST. PATIENT, LEVEL III Diagnosis: Other obesity due to excess calories[ICD10: E66.09] Diagnosis: Other insomnia[ICD10: G47.09] Diagnosis: Generalized anxiety disorder[ICD10: F41.1] Claudette Trejo MD, [facility] CPT-4: 13640 09/28/2016 ([id number]) 50567 EST. PATIENT, LEVEL IV Diagnosis: Generalized anxiety disorder[ICD10: F41.1] Diagnosis: Major depressive disorder, recurrent, mild[ICD10: F33.0] Diagnosis: Other obesity due to excess calories[ICD10: E66.09] Diagnosis: Other insomnia[ICD10: G47.09] Claudette Trejo MD, [facility] CPT-4: 75550 08/24/2016 ([id number]) 70038 EST. PATIENT, LEVEL III Diagnosis: Other obesity due to excess calories[ICD10: E66.09] Diagnosis: Major depressive disorder, recurrent, moderate[ICD10: F33.1] Diagnosis: Low back pain[ICD10: M54.5] Heidy Trejo MD, [facility] CPT- 4: 75666 07/13/2016 26612 EST. PATIENT, LEVEL IV Diagnosis: Other muscle spasm[ICD10: M62.838] Diagnosis: Generalized anxiety disorder[ICD10: F41.1] Diagnosis: Major depressive disorder, recurrent, moderate[ICD10: F33.1] Diagnosis: Other insomnia[ICD10: G47.09] Petra Trejo MD, [facility] CPT-4 : 47559 05/19/2016 ([id number]) 33608 EST. PATIENT, LEVEL III Diagnosis: Generalized anxiety disorder[ICD10: F41.1] Diagnosis: Major depressive disorder, recurrent, moderate[ICD10: F33.1] Heidy [facility]jo MD, [facility] CPT-4: 34721 03/16/2016 ([id number]) 53899 EST. PATIENT, LEVEL III Diagnosis: Streptococcal pharyngitis[ICD10: J02.0] Claudette Trejo MD, [facility] CPT-4: 79233 02/28/2016 ([id number]) 90830 EST. PATIENT, LEVEL III Diagnosis: Generalized anxiety disorder[ICD10: F41.1] Diagnosis: Other obesity due to excess calories[ICD10: E66.09] Heidy Trejo MD, [facility] CPT-4: 82216 01/13/2016 ([id number]) 86893 EST. PATIENT, LEVEL III Diagnosis: Generalized anxiety disorder[ICD10: F41.1] Diagnosis: Major depressive disorder, recurrent, unspecified[ICD10: F33.9] Heidy Trejo MD, [facility] CPT-4: 60552 09/27/2015 30759 EST. PATIENT, LEVEL IV Diagnosis: Chronic pain syndrome[ICD10: G89.4] Diagnosis: Other obesity due to excess calories[ICD10: E66.09] Diagnosis: Essential (primary) hypertension[ICD10: I10] Diagnosis: Generalized anxiety disorder[ICD10: F41.1] Diagnosis: Excessive and frequent menstruation with regular cycle[ICD10: N92.0] Diagnosis: Pain in right knee[ICD10: M25.561] Petra Trejo MD, [facility] CPT-4: 04562 08/30/2015 06675 EST. PATIENT, LEVEL IV Diagnosis: Palpitations[ICD10: R00.2] Diagnosis: Other obesity due to excess calories[ICD10: E66.09] Petra Trejo MD, [facility] CPT-4: 43277 08/16/2015 ([id number]) 72137 EST. PATIENT, LEVEL IV Diagnosis: Pain in right knee[ICD10: M25.561] Diagnosis: Primary generalized (osteo)arthritis[ICD10: M15.0] Diagnosis: Acute maxillary sinusitis, unspecified[ICD10: J01.00] Heidy Trejo MD, [facility] CPT-4: 95014 07/15/2015 ([id number]) 03224 EST. PATIENT, LEVEL IV Diagnosis: Primary generalized (osteo)arthritis[ICD10: M15.0] Diagnosis: Restless legs syndrome[ICD10: G25.81] Diagnosis: Chronic pain syndrome[ICD10: G89.4] Heidy Trejo MD, [facility] CPT-4: 90865 06/16/2015 ([id number]) 09802 EST. PATIENT, LEVEL III Diagnosis: Primary generalized (osteo)arthritis[ICD10: M15.0] Diagnosis: Varicose veins of bilateral lower extremities with pain[ICD10: I83.813] Claudette Trejo MD, [facility] CPT-4: 79129 ([id number]) OFFICE VISIT, NEW - LEVEL 3 Diagnosis: Osteoarthritis[ICD9: 715.90] Diagnosis: ABNORMAL WEIGHT GAIN[ICD9: 783.1] Diagnosis: Superficial thrombophlebitis[ICD9: 451.9] Carey Trejo MD, [facility] CPT-4: 21145 12/02/2014 Plan of Care Planned Activity Notes [...] allergy spray. 06/27/2017 Appointment: Petra Rivas WPtel: [address] [place], [place] [phone] (15 min) Moderate 06/27/2017 Patient Education: Patient Medication Summary Completed 06/27/2017 Referral: Jignesh Quinn [facility] Patient informed. Referral info faxed. Completed 06/13/2017 [...] Dr. Quinn 05/29/2017 Appointment: Petra Rivas WPtel: [address] [place], [place] [phone] (15 min) Moderate 05/29/2017 Patient Education: Patient Medication Summary Completed 05/29/2017 Care Plan: Referral Order SNOMED-CT : [id number] Pending 05/29/2017 [facility] [phone] [facility] [place] (15 min) Moderate 05/28/2017 Visit [...] acute concerns. 05/21/2017 Appointment: [facility]ivas [phone] (15 min) Moderate 05/21/2017 Patient Education: Patient Medication Summary Completed 05/21/2017 Visit Plan: Right heel pain - will send RX, pt is to do stretches as directed - The pt is to use prn antiinflammatories to manage acute pain. The patient is to call the office if the pain is worsening or does not improve. 04/20/2017 Appointment: Petra Rivas [facility]Ptel: [phone] [place] (30 min) Complex 04/20/2017 Patient Education: Patient Medication Summary Completed 04/20/2017 Appointment: Petra Rivas WPtel: [id number] [place] ([place]) Complex 03/29/2017 Patient Education: Patient Medication Summary Completed 03/16/2017 Referral: Maycol Quijano Referral Initiated 02/08/2017 Care Plan: Referral Order SNOMED-CT : [id number] Pending 01/28/2017 Visit Plan: Insomnia - Pt [...] concerns. 01/26/2017 Appointment: Petra Rivas WPtel: [phone] [facility] (30 min) Complex 01/26/2017 Patient Education: [...] acutely worsen. 01/11/2017 Appointment: Petra Rivas WPtel: [facility] (15 min) Moderate 01/11/2017 Patient Education: [...] use. 11/30/2016 Appointment: Claudette Savage WPtel: [phone] [phone] [place] (15 min) Moderate 11/30/2016 Patient Education: Patient Medication Summary Completed 11/30/2016 Patient Education: Obesity Completed 11/30/2016 Care Plan: BMI Above normal followup SELF-MGMT EDUC & TRAIN 1 PT Pending 2016 Visit Plan: Xaoxbym-cpmgjrwrqd-sgwiqdkc with increase in cymbalta-no changes Insomnia-RX for belsomra provided and instructed on use Obesity-patient down 15#-no changes-continue diet/exercise-follow up in 2 months 09/28/2016 Appointment: Claudette Savage WPtel: [address] [place] [address] [place] (15 min) Moderate 09/28/2016 Patient Education: Patient Medication Summary Completed 09/28/2016 Patient Education: Obesity Completed 09/28/2016 Care Plan: BMI Above normal followup SELF-MGMT EDUC & TRAIN 1 PT Pending 2016 Visit Plan: Ewowbdy-jmzwmdgjfd-yzviuirl-increase cymbalta to 60mg daily. Increase xanax as [...] for insomnia/anxiety 08/24/2016 Appointment: Claudette Savage WPtel: [address] [place], [place] [phone] (15 min) Moderate 08/24/2016 Patient Education: Patient [...] improving. 07/13/2016 [facility] [phone] [facility] (15 min) Moderate 07/13/2016 Patient Education: Patient [...] time insomnia. 05/19/2016 Appointment: Pet[facility] Rivas [facility] (30 min) Complex 05/19/2016 Patient Education: [...] this patient. 03/16/2016 Appointment: Heidy Trejo [facility]el[facility] (15 min) Moderate 03/16/2016 Patient Education: Patient [...] will culture the swab. 02/28/2016 Appointment: Claud[facility] Savgae [facility] [phone] [phone] (10 min) Simple 02/28/2016 Patient Education: [...] pills twice daily. stop lexapro 01/13/2016 Appointment: [place] [facility] [phone] [facility] [place] (15 min) Moderate 01/13/2016 Patient Education: [...] 09/27/2015 Care Plan: Referral Order SNOMED-CT : [id number] Pending 08/31/2015 Visit Plan: Anxiety - the [...] symptoms. 07/15/2015 Appointment: Heidy Trejo [facility] [phone] [facility] [place] (15 min) Moderate 07/15/2015 Patient Education: [...] clinic 04/02/2015 Appointment: Claud[facility] Savage [facility] [phone] [phone] [place] (15 min) Moderate 04/02/2015 Patient [...] Completed 12/02/2014 Referral: Belle Hoffman WPtel: [phone] [facility] they will call and set the appt with her Initiated Referral: Maycol Quijano Referral Initiated Referral: Belle Hoffman WPtel: [phone] [facility] [place] Referral Initiated Referral: Jignesh Quinn [facility] [place] Referral Initiated Instructions Comment . Hypertension [...] 1 mg at night for anxiety . Lgepals-ynhgkgwohy-gukbifnz-increase cymbalta to 60mg daily. Increase xanax as [...] a medication such as mirapex or requip. StayNTouch contrave 1 pill nightly x 1 week, then one pill twice daily x 1 week, then if needed can increase up to 2 pills twice daily. stop lexapro . Depression and -Obesity - chronic issue with this patient. The pt has been counseled about diet changes, calorie restriction, and need to exercise. Pt will RTC in one month for weight check. StayNTouch contrave 1 pill nightly x 1 week, [...] worsening or does not improve. BELSOMRA . Meihulv-bnsgimqdtz-gfunglsx with increase in cymbalta-no changes Insomnia-RX for [...]
[2017-08-07] MEDS ORDERED: NITROGLYCERIN 0.4 MG SL TABS BTL 25'S SL PRN ×2 (12:30→15:30)
--- OUTSIDE RECORDS SUMMARY | 2017-08-07 12:30 | XMS REPORT | CCD ---
Author Author [place] Organization [facility] Address [address] [place] [address] Phone Care Team Providers Care Mobile Qa Tester Name Role Phone PP Unavailable CCM Unavailable Summary Purpose Interface Exchange Insurance Providers Payer name Policy type / Coverage type Covered republican ID Effective Begin Date Effective End Date [facility] [id number] 2015 Unknown Family history Brother Diagnosis Age [...] Description Effective Dates Tobacco history SNOMED CT: 4249457 Quit less than 5 years ago 04/02/2015 [...] Fill Instructions Ambien 10 mg tablet RxNorm: 943279 1 Tablet(s) PO daily 201708/26/2017 Active tramadol 50 mg tablet RxNorm: 651337 1 Tablet(s) PO TID as needed 05/29/2017 07/27/2017 Active alprazolam 1 mg tablet RxNorm: 547459 1 Tablet(s) PO BID as needed 05/21/2017 06/19/2017 Active Celebrex 200 mg capsule RxNorm: 532352 1 CAPSULE(S) PO BID 10/30/2017 Active hydrocodone 5 mg-acetaminophen 325 mg tablet RxNorm: 510210 1 Tablet(s) PO QID as needed 04/20/2017 No Stop Date Active Cymbalta 60 mg capsule,delayed release RxNorm: 214599 1 Capsule(s) PO daily 04/20/2017 11/15/2017 Active prednisone 20 mg tablet RxNorm: 489110 2 Tablet(s) PO daily 12/201604/24/2017 Inactive Ambien 10 mg tablet RxNorm: 647878 Tablet(s) PO 04/20/2017 05/28/2017 Inactive Victoza 2-Marek 0.6 mg/0.1 mL (18 mg/3 mL) subcutaneous pen injector RxNorm: 316626 INJECT 1.8 MG SUB-Q ONCE DAILY 03/26/2017 09/21/2017 Active diazepam 2 mg tablet RxNorm: 130982 1 Tablet(s) PO QHS as needed insomnia 01/28/2017 05/07/2017 Inactive Victoza 2-Marek 0.6 mg/0.1 mL (18 mg/3 mL) subcutaneous pen injector RxNorm: 708399 1.8 Milligram(s) SQ daily 01/26/201703/25 Inactive dispense quantity sufficient albuterol sulfate 2.5 mg/3 mL (0.083 %) solution for nebulization RxNorm: 357456 3 Milliliter(s) INH UD 01/11/2017 No Stop Date Active Tussionex Pennkinetic ER 10 mg-8 mg/5 mL suspension, extended release RxNorm: 7258355 5 Milliliter(s) PO BID 01/11/2017 01/15/2017 Inactive Xanax 1 mg tablet RxNorm: 949428 1 Tablet(s) PO BID PRN as needed anxiety 01/11/2017 05/20/2017 Inactive Zithromax Z-Marek 250 mg tablet RxNorm: 152818 1 Tablet(s) PO UD 01/11/2017 01/15/2017 Inactive zpack prednisone 20 mg tablet RxNorm: 927797 2 Tablet(s) PO daily 01/15/2017 Inactive Kenalog 40 mg/mL suspension for injection RxNorm: 3281206 1.5 Milliliter(s) Inj 01/11/2017 01/11/2017 Inactive Ambien 5 mg tablet RxNorm: 068121 1 Tablet(s) PO HS PRN 11/3001/28/2017 Inactive Celebrex 200 mg capsule RxNorm: 904539 1 Capsule(s) PO BID 02/27/2017 Inactive trazodone 50 mg tablet RxNorm: 486649 1/2 to 1 Tablet(s) PO QHS 10/13/2016 10/12/2016 Inactive trazodone 50 mg tablet RxNorm: 840565 1/2 to 1 Tablet(s) PO QHS 10/13/2016 11/29/2016 Inactive Belsomra 10 mg tablet RxNorm: 8787620 1 Tablet(s) PO QHS 201611/29/2016 Inactive may increase to 20mg if 10mg not effective Cymbalta 60 mg capsule,delayed release RxNorm: 249581 1 Capsule(s) PO daily 08/24/2016 03/21/2017 Inactive Xanax 1 mg tablet RxNorm: 872151 1 Tablet(s) PO BID PRN as needed anxiety 08/24/2016 01/10/2017 Inactive Victoza 2-Marek 0.6 mg/0.1 mL (18 mg/3 mL) subcutaneous pen injector RxNorm: 119110 Milligram(s) SQ 08/24/2016 08/23/2016 Inactive Victoza 2-Marek 0.6 mg/0.1 mL (18 mg/3 mL) subcutaneous pen injector RxNorm: 328220 1.8 Milligram(s) SQ 08/24/2016 01/25/2017 Inactive Vitamin D2 50,000 unit capsule RxNorm: 328182 1 Capsule(s) PO QW 07/13/2016 10/10/2016 Inactive Cymbalta 30 mg capsule,delayed release RxNorm: 355701 1 Capsule(s) PO daily 07/13/2016 08/23/2016 Inactive Belviq XR 20 mg tablet,extended release RxNorm: 5554561 1 Tablet(s) PO daily 05/30/2016 05/29/2016 Inactive prednisone 20 mg tablet RxNorm: 827212 2 Tablet(s) PO daily 06/03/2016 Inactive prednisone 20 mg tablet RxNorm: 979217 2 Tablet(s) PO daily 05/29/2016 Inactive Belviq XR 20 mg tablet,extended release RxNorm: 9133464 1 Tablet(s) PO daily 05/30/2016 06/28/2016 Inactive cyclobenzaprine 5 mg tablet RxNorm: 669639 1-2 Tablet(s) PO TID as needed 05/19/2016 05/23/2016 Inactive metoprolol succinate ER 25 mg tablet,extended release 24 hr RxNorm: 509856 1 Tablet(s) PO QPM 04/10/2016 04/13/2016 Inactive metoprolol succinate ER 25 mg tablet,extended release 24 hr RxNorm: 638655 1 Tablet(s) PO QPM 04/10/2016 04/09/2016 Inactive escitalopram 10 mg tablet RxNorm: 815575 1 Tablet(s) PO daily 03/16/2016 07/12/2016 Inactive estradiol 1 mg tablet RxNorm: 031330 1 Tablet(s) PO every other day 03/16/2016 05/15/2016 Inactive Kenalog 40 mg/mL suspension for injection RxNorm: 1465804 Milliliter(s) Inj 02/28/2016 02/28/2016 Inactive Zithromax Z-Marek 250 mg tablet RxNorm: 542263 1 Tablet(s) PO UD 02/28/2016 03/03/2016 Inactive zpack Lexapro 10 mg tablet RxNorm: 792354 1 Tablet(s) PO daily 201502/27/2016 Inactive Lexapro 10 mg tablet RxNorm: 949042 1 Tablet(s) PO daily 201509/26/2015 Inactive Vimovo 500 mg-20 mg tablet,immediate and delay release RxNorm: 484303 1 Tablet(s) PO BID as needed for pain 08/30/201509/25 Inactive azithromycin 250 mg tablet RxNorm: 468590 1 Tablet(s) PO UD 2 pills on day #1, then one pill daily x 4 days 07/15/2015 Inactive hydrocodone 10 mg-acetaminophen 325 mg tablet RxNorm: 059505 1 Tablet(s) PO QID 06/16/2015 01/12/2016 Inactive pramipexole 0.5 mg tablet RxNorm: 110637 1 Tablet(s) PO QPM 07/201507/14/2015 Inactive Celebrex 200 mg capsule RxNorm: 513883 1 Capsule(s) PO daily 05/02/2015 Inactive Celebrex 200 mg capsule RxNorm: 285399 1 Capsule(s) PO daily 01/12/2016 Inactive hydrocodone 7.5 mg-acetaminophen 325 mg tablet RxNorm: 963754 1 Tablet(s) PO Q6 PRN 05/03/2015 06/15/2015 Inactive Mobic 15 mg tablet RxNorm: 257706 1 Tablet(s) PO daily 201405/02/2015 Inactive hydrocodone 7.5 mg-acetaminophen 325 mg tablet RxNorm: 029384 1 Tablet(s) PO Q6 PRN 04/02/2015 05/02/2015 Inactive hydrocodone 5 mg-acetaminophen 325 mg tablet RxNorm: 150315 1 Tablet(s) PO Q6 as needed 12/11/2014 04/01/2015 Inactive Pennsaid 1.5 % topical drops RxNorm: 015511 40 Drop(s) TOP QID as needed 12/07/2014 02/04/2015 Inactive Apply 40 drops to each knee joint 4 times per day as needed for osteoarthritis pain Phenergan-Codeine syrup RxNorm: 5-10 Milliliter(s) PO QID as needed No Start Date Active estradiol 1 mg tablet RxNorm: 498850 1 Tablet(s) PO QHS No Start Date 03/15/2016 Inactive Xanax 0.5 mg tablet RxNorm: 945559 1 Tablet(s) PO Q6 as needed anxiety No Start Date 08/23/2016 Inactive Tylenol Extra Strength 500 mg tablet RxNorm: 042103 3 Tablet(s) PO BID after breakfast and after lunch No Start Date Inactive hydrocodone 5 mg-acetaminophen 325 mg tablet RxNorm: 832376 1 Tablet(s) PO Q6 as needed No Start Date 12/10/2014 Inactive ibuprofen 200 mg capsule RxNorm: 829071 4 Capsule(s) PO QID as needed No Start Date 04/01/2015 Inactive Medication Administered Medication Codes Instructions Start Date Status Kenalog 40 mg/mL suspension for injection RxNorm: 4450168 1.5Milliliter 01/11/2017 No longer Active Kenalog 40 mg/mL suspension for injection RxNorm: 9758558 Milliliter 02/28/2016 No longer Active Immunizations Vaccine [...] Item Item Code Result Date Estrogens Total 740907 ESTROGENS, TOTAL 54 pg/mL 05/24/2016 Magnesium Ord90 Mag 1.8 mg/dL 05/19/2016 Tsh Ord6 hTSH II 1.56 uIU/mL 05/19/2016 Progesterone Prog 0.03 ng/mL 05/19/2016 Comp Metabolic Kxe672 NA 136 mEq/L 05/19/2016 Comp Metabolic Gvp351 K 4.3 mEq/L 05/19/2016 Comp Metabolic Ohp873 CL 100 mEq/L 05/19/2016 Comp Metabolic Uun831 CO2 28.0 mEq/L 05/19/2016 Comp Metabolic Uqm077 ANION GAP 12 05/19/2016 Comp Metabolic Mwj740 GLUCOSE 138 mg/dL 05/19/2016 Comp Metabolic Xho763 Creat 0.7 mg/dL 05/19/2016 Comp Metabolic Bvn791 eGFR 89 ml/min/1.73m2 05/19/2016 Comp Metabolic Jqw686 BUN 15 mg/dL 05/19/2016 Comp Metabolic Okt844 B/C Ratio 20.5 Ratio 05/19/2016 Comp Metabolic Idc362 CALCIUM 9.7 mg/dL 05/19/2016 Comp Metabolic Pix370 ALK PHOS 106 U/L 05/19/2016 Comp Metabolic Cnv139 AST(SGOT) 21 U/L 05/19/2016 Comp Metabolic Vtd489 ALT(SGPT) 24 U/L 05/19/2016 Comp Metabolic Ycl415 BILI T 0.4 mg/dL 05/19/2016 Comp Metabolic Jqa212 ALBUMIN 4.1 g/dL 05/19/2016 Comp Metabolic Ceb102 TPRO 7.1 g/dL 05/19/2016 Comp Metabolic May712 GLOB 3.0 g/dL 05/19/2016 Comp Metabolic Kpr829 A/G Ratio 1.4 Ratio 05/19/2016 Comp Metabolic Ktu649 Osmo 275 mOsmo 05/19/2016 Cbc With Differential [...] 86.5 fl 05/19/2016 Cbc With Differential Ord2 Wright% 6.5 % 05/19/2016 Cbc With Differential Ord2 [...] 2.33 K/ul 05/19/2016 Cbc With Differential Ord2 Wright ABS# 0.6 K/ul 05/19/2016 Cbc With Differential Ord2 Eos ABS# 0.1 K/ul 05/19/2016 Cbc With Differential Ord2 Baso ABS# 0.0 K/ul 05/19/2016 C RAP A SC [id number] Strep A Negative 02/28/2016 Tsh Ord6 hTSH [...] 26.2 pg 08/16/2015 Cbc With Differential Ord2 Wright% 7.1 % 08/16/2015 Cbc With Differential Ord2 Eos% 0.9 % 08/16/2015 Cbc With Differential Ord2 MCHC 32.3 pg 08/16/2015 Cbc With Differential Ord2 PLT 369 K/ul 08/16/2015 Cbc With Differential Ord2 Baso% 0.3 % 08/16/2015 Cbc With Differential Ord2 Neut ABS# 5.95 K/ul 08/16/2015 Cbc With Differential Ord2 RDW 15.3 % 08/16/2015 Cbc With Differential Ord2 Lymph ABS# 2.32 K/ul 08/16/2015 Cbc With Differential Ord2 Wright ABS# 0.6 K/ul 08/16/2015 Cbc With Differential Ord2 Eos ABS# 0.1 K/ul 08/16/2015 Cbc With Differential Ord2 Baso ABS# 0.0 K/ul 08/16/2015 Cbc With Differential Ord2 New Analyzer Notice Please note new ref ranges starting 05-26-2015 due to implemntation of new five part differential hematolgy analyzer. 08/16/2015 Comp Metabolic Rea901 NA 132 mEq/L 08/16/2015 Comp Metabolic Gat237 K 3.6 mEq/L 08/16/2015 Comp Metabolic Obu883 CL 99 mEq/L 08/16/2015 Comp Metabolic Qsk480 CO2 23.0 mEq/L 08/16/2015 Comp Metabolic Xqw759 ANION GAP 14 08/16/2015 Comp Metabolic Xxu743 GLUCOSE 101 mg/dL 08/16/2015 Comp Metabolic Say776 Creat 0.7 mg/dL 08/16/2015 Comp Metabolic Uyd341 eGFR 100 ml/min/1.73m2 08/16/2015 Comp Metabolic Cef706 BUN 10 mg/dL 08/16/2015 Comp Metabolic Cup326 B/C Ratio 15.2 Ratio 08/16/2015 Comp Metabolic Rvw106 CALCIUM 9.3 mg/dL 08/16/2015 Comp Metabolic Vip207 ALK PHOS 100 U/L 08/16/2015 Comp Metabolic Jqj720 AST(SGOT) 14 U/L 08/16/2015 Comp Metabolic Mfa841 ALT(SGPT) 11 U/L 08/16/2015 Comp Metabolic Hmr081 BILI T 0.3 mg/dL 08/16/2015 Comp Metabolic Eia252 ALBUMIN 3.9 g/dL 08/16/2015 Comp Metabolic Leu821 TPRO 7.1 g/dL 08/16/2015 Comp Metabolic Lxa851 GLOB 3.2 g/dL 08/16/2015 Comp Metabolic Iht118 A/G Ratio 1.2 Ratio 08/16/2015 Comp Metabolic Czi675 Osmo 264 mOsmo 08/16/2015 Lipid Ord30 CHOL 209 mg/dL 12/03/2014 Lipid Ord30 HDL 42.0 mg/dl 12/03/2014 Lipid Ord30 TRIG 219 mg/dL 12/03/2014 Lipid Ord30 LDL 123 mg/dL 12/03/2014 Lipid Ord30 C/HDL 5.0 Ratio 12/03/2014 Comp Metabolic Iws725 NA 132 mEq/L 12/03/2014 Comp Metabolic Gvo107 K 4.0 mEq/L 12/03/2014 Comp Metabolic Reb535 CL 101 mEq/L 12/03/2014 Comp Metabolic Gio718 CO2 22.0 mEq/L 12/03/2014 Comp Metabolic Uqn806 ANION GAP 13 12/03/2014 Comp Metabolic Zts232 GLUCOSE 123 mg/dL 12/03/2014 Comp Metabolic Twp997 Creat 0.7 mg/dL 12/03/2014 Comp Metabolic Hkj000 eGFR 97 ml/min/1.73m2 12/03/2014 Comp Metabolic Jtm296 BUN 10 mg/dL 12/03/2014 Comp Metabolic Kfp238 B/C Ratio 14.7 Ratio 12/03/2014 Comp Metabolic Yvk745 CALCIUM 9.2 mg/dL 12/03/2014 Comp Metabolic Tns578 ALK PHOS 88 U/L 12/03/2014 Comp Metabolic Zqw871 AST(SGOT) 18 U/L 12/03/2014 Comp Metabolic Fzn445 ALT(SGPT) 17 U/L 12/03/2014 Comp Metabolic Ouu351 BILI T 0.5 mg/dL 12/03/2014 Comp Metabolic Utm199 ALBUMIN 3.9 g/dL 12/03/2014 Comp Metabolic Mpp410 TPRO 6.8 g/dL 12/03/2014 Comp Metabolic Ooz399 GLOB 2.9 g/dL 12/03/2014 Comp Metabolic Gro838 A/G Ratio 1.3 Ratio 12/03/2014 Comp Metabolic Xzj228 Osmo 265 mOsmo 12/03/2014 Tsh Ord6 hTSH II 1.13 uIU/mL 12/03/2014 D-Dimer D-DIMER 168 NG/ML 12/03/2014 D-Dimer 237955 COMMENT 12/03/2014 Cbc With Differential Ord2 WBC [...] Procedure Codes Date IMMUNIZATION ADMIN CPT -4: 00223 03/16/2017 FLU VAC NO PRSV 4 FLETCHER 3 YRS+ CPT-4: 33056 03/16/2017 Pneumococcal Polysaccharide Vaccine, 23-Valent, Ad CPT-4: 71760 03/16/2017 IMMUNIZATION ADMIN EACH ADD CPT-4: 48313 03/16/2017 TRIAMCINOLONE ACET INJ NOS CPT-4: J3301 01/11/2017 TRIAMCINOLONE ACET INJ NOS CPT-4: J3301 02/28/2016 Vital Signs Date Vital 05/29/2017 Blood Pressure 1: 136/82 Code : 8480-6 Heart Rate 1: 101 bpm Height: 5'6" SpO2: 96% Weight: 04/20/2017 Blood Pressure 1: 126/74 Code : 8480-6 BMI: 39.9 Code : 66360-0 Heart Rate 1 : 79 bpm Height: 5'6" SpO2: 97% Weight: 247 lbs 01/26/2017 Blood Pressure 1: 132/74 Code : 8480-6 BMI: 37.8 Code : 50753-0 Heart Rate 1 : 74 bpm Height: 5'6" SpO2: 97% Weight: 234 lbs 01/11/2017 Blood Pressure 1: 118/68 Code : 8480-6 BMI: 38.7 Code : 54892-6 Heart Rate 1 : 91 bpm Height: 5'6" SpO2: 96% Weight: 240 lbs 11/30/2016 Blood Pressure 1: 132/76 Code : 8480-6 BMI: 38.3 Code : 11516-5 Heart Rate 1 : 71 bpm Height: 5'6" SpO2: 92% Weight: 237 lbs 09/28/2016 Blood Pressure 1: 122/72 Code : 8480-6 BMI: 39.1 Code : 71948-7 Heart Rate 1 : 88 bpm Height: 5'6" SpO2: 94% Weight: 242 lbs 08/24/2016 Blood Pressure 1: 130/87 Code : 8480-6 BMI: 41.5 Code : 27564-4 Heart Rate 1 : 95 bpm Height: 5'6" Respiratory Rate: 16 bpm SpO2: 98% Temperature: 36.9 (C) / 98.5 (F ) Weight: 257 lbs 07/13/2016 Blood Pressure 1: 132/84 Code : 8480-6 BMI: 42.0 Code : 38877-1 Heart Rate 1 : 73 bpm Height: 5'6" SpO2: 97% Weight: 260 lbs 05/19/2016 Blood Pressure 1: 138/76 Code : 8480-6 BMI: 40.8 Code : 90031-4 Heart Rate 1 : 80 bpm Height: 5'6" SpO2: 98% Weight: 253 lbs 03/16/2016 Blood Pressure 1: 122/70 Code : 8480-6 BMI: 40.4 Code : 89200-0 Heart Rate 1 : 72 bpm Height: 5'6" SpO2: 98% Weight: 250 lbs 02/28/2016 Blood Pressure 1: 136/86 Code : 8480-6 BMI: 40.2 Code : 80999-4 Heart Rate 1 : 87 bpm Height: 5'6" SpO2: 96% Temperature: 36.3 (C) / 97.3 (F) Weight: 249 lbs 01/13/2016 Blood Pressure 1: 120/76 Code : 8480-6 BMI: 40.4 Code : 04549-9 Heart Rate 1 : 68 bpm Height: 5'6" SpO2: 97% Weight: 250 lbs 09/27/2015 Blood Pressure 1: 112/70 Code : 8480-6 BMI: 38.4 Code : 19335-2 Heart Rate 1 : 76 bpm Height: 5'6" SpO2: 98% Weight: 238 lbs 08/30/2015 Blood Pressure 1: 144/82 Code : 8480-6 BMI: 39.5 Code : 76023-0 Heart Rate 1 : 82 bpm Height: 5'6" SpO2: 97% Weight: 245 lbs 08/16/2015 Blood Pressure 1: 140/72 Code : 8480-6 BMI: 38.9 Code : 37223-1 Heart Rate 1 : 72 bpm Height: 5'6" SpO2: 97% Weight: 241 lbs 07/15/2015 Blood Pressure 1: 128/80 Code : 8480-6 BMI: 39.3 Code : 18998-2 Heart Rate 1 : 86 bpm Height: 5'6" SpO2: 98% Weight: 243 lbs 8 oz 06/16/2015 Blood Pressure 1: 146/86 Code : 8480-6 BMI: 39.6 Code : 74663-3 Heart Rate 1 : 76 bpm Height: 5'6" SpO2: 97% Weight: 245 lbs 8 oz 04/02/2015 Blood Pressure 1: 132/86 Code : 8480-6 BMI: 40.7 Code : 00028-3 Heart Rate 1 : 94 bpm Height: 5'6" SpO2: 98% Weight: 252 lbs 12/02/2014 Blood Pressure 1: 122/90 Code : 8480-6 BMI: 41.6 Code : 16176-1 Heart Rate 1 : 77 bpm Height: [...] data Encounters Encounter Performer Location Codes Date 96014 EST. PATIENT, LEVEL III Diagnosis: Ganglion, left hand[ICD10: M67.442] Diagnosis: Essential (primary) hypertension[ICD10: I10] Diagnosis: Generalized anxiety disorder[ICD10: F41.1] Diagnosis: Other insomnia[ICD10: G47.09] Petra Trejo MD, [facility] CPT-4 : 84154 05/29/2017 73440 EST. PATIENT, LEVEL III Diagnosis: Pain in right foot[ICD10: M79.671] Petra Trejo MD, [facility] CPT-4: 84820 04/20/2017 03597 EST. PATIENT, LEVEL IV Diagnosis: Other insomnia[ICD10: G47.09] Diagnosis: Other skin changes[ICD10: R23.8] Petra Trejo MD, [facility] CPT- 4: 05116 01/26/2017 62895 EST. PATIENT, LEVEL IV Diagnosis: Acute bronchitis due to other specified organisms[ICD10: J20.8] Petra Trejo MD, [facility] CPT-4: 89844 01/11/2017 ([id number]) 35579 EST. PATIENT, LEVEL IV Diagnosis: Essential (primary) hypertension[ICD10: I10] Diagnosis: Other insomnia[ICD10: G47.09] Diagnosis: Primary generalized (osteo)arthritis[ICD10: M15.0] Diagnosis: Other obesity due to excess calories[ICD10: E66.09] Claudette Trejo MD, [facility] CPT-4: 17101 11/30/2016 ([id number]) 40157 EST. PATIENT, LEVEL III Diagnosis: Other obesity due to excess calories[ICD10: E66.09] Diagnosis: Other insomnia[ICD10: G47.09] Diagnosis: Generalized anxiety disorder[ICD10: F41.1] Claudette Trejo MD, [facility] CPT-4: 93311 09/28/2016 ([id number]) 46056 EST. PATIENT, LEVEL IV Diagnosis: Generalized anxiety disorder[ICD10: F41.1] Diagnosis: Major depressive disorder, recurrent, mild[ICD10: F33.0] Diagnosis: Other obesity due to excess calories[ICD10: E66.09] Diagnosis: Other insomnia[ICD10: G47.09] Claudette Trejo MD, [facility] CPT-4: 47534 08/24/2016 ([id number]) 76214 EST. PATIENT, LEVEL III Diagnosis: Other obesity due to excess calories[ICD10: E66.09] Diagnosis: Major depressive disorder, recurrent, moderate[ICD10: F33.1] Diagnosis: Low back pain[ICD10: M54.5] [facility] MD, [facility] CPT- 4: 43476 07/13/2016 83611 EST. PATIENT, LEVEL IV Diagnosis: Other muscle spasm[ICD10: M62.838] Diagnosis: Generalized anxiety disorder[ICD10: F41.1] Diagnosis: Major depressive disorder, recurrent, moderate[ICD10: F33.1] Diagnosis: Other insomnia[ICD10: G47.09] Petra Trejo MD, [facility] CPT-4 : 95309 05/19/2016 ([id number]) 10803 EST. PATIENT, LEVEL III Diagnosis: Generalized anxiety disorder[ICD10: F41.1] Diagnosis: Major depressive disorder, recurrent, moderate[ICD10: F33.1] Heidy Trejo MD, [facility] CPT-4: 51686 03/16/2016 ([id number]) 69629 EST. PATIENT, LEVEL III Diagnosis: Streptococcal pharyngitis[ICD10: J02.0] Claudette Trejo MD, [facility] CPT-4: 53499 02/28/2016 ([id number]) 26433 EST. PATIENT, LEVEL III Diagnosis: Generalized anxiety disorder[ICD10: F41.1] Diagnosis: Other obesity due to excess calories[ICD10: E66.09] Heidy Trejo MD, [facility] CPT-4: 24050 01/13/2016 ([id number]) 35341 EST. PATIENT, LEVEL III Diagnosis: Generalized anxiety disorder[ICD10: F41.1] Diagnosis: Major depressive disorder, recurrent, unspecified[ICD10: F33.9] Heidy Trejo MD, [facility] CPT-4: 54891 09/27/2015 57503 EST. PATIENT, LEVEL IV Diagnosis: Chronic pain syndrome[ICD10: G89.4] Diagnosis: Other obesity due to excess calories[ICD10: E66.09] Diagnosis: Essential (primary) hypertension[ICD10: I10] Diagnosis: Generalized anxiety disorder[ICD10: F41.1] Diagnosis: Excessive and frequent menstruation with regular cycle[ICD10: N92.0] Diagnosis: Pain in right knee[ICD10: M25.561] Petra Trejo MD, [facility] CPT-4: 28329 08/30/2015 69077 EST. PATIENT, LEVEL IV Diagnosis: Palpitations[ICD10: R00.2] Diagnosis: Other obesity due to excess calories[ICD10: E66.09] Petra Trejo MD, [facility] CPT-4: 24075 08/16/2015 ([id number]) 58932 EST. PATIENT, LEVEL IV Diagnosis: Pain in right knee[ICD10: M25.561] Diagnosis: Primary generalized (osteo)arthritis[ICD10: M15.0] Diagnosis: Acute maxillary sinusitis, unspecified[ICD10: J01.00] Heidy Trejo MD, [facility] CPT-4: 40844 07/15/2015 ([id number]) 16637 EST. PATIENT, LEVEL IV Diagnosis: Primary generalized (osteo)arthritis[ICD10: M15.0] Diagnosis: Restless legs syndrome[ICD10: G25.81] Diagnosis: Chronic pain syndrome[ICD10: G89.4] Heidy Trejo MD, [facility] CPT-4: 00273 06/16/2015 ([id number]) 05052 EST. PATIENT, LEVEL III Diagnosis: Primary generalized (osteo)arthritis[ICD10: M15.0] Diagnosis: Varicose veins of bilateral lower extremities with pain[ICD10: I83.813] [facility] CPT-4: 09092 ([id number]) OFFICE VISIT, NEW - LEVEL 3 Diagnosis: Osteoarthritis[ICD9: 715.90] Diagnosis: ABNORMAL WEIGHT GAIN[ICD9: 783.1] Diagnosis: Superficial thrombophlebitis[ICD9: 451.9] [facility] CPT-4: 58922 12/02/2014 Plan of Care Planned Activity Notes Codes Status Date Referral: Jignesh Quinn [facility] Patient informed. Referral info faxed. [...] Dr. Quinn 05/29/2017 Appointment: Petra Rivas WPtel: [facility] [place] (15 min) Moderate 05/29/2017 Patient Education: Patient Medication Summary Completed 05/29/2017 Care Plan: Referral Order SNOMED-CT : [id number] Pending 05/29/2017 Appointment: Petra Rivas WPtel: [facility] [place] (15 min) Moderate 05/28/2017 Appointment: Petra Rivas WPtel: [facility] [place] (15 min) Moderate 05/21/2017 Visit Plan: Right heel pain - will send RX, pt is to do stretches as directed - The pt is to use prn antiinflammatories to manage acute pain. The patient is to call the office if the pain is worsening or does not improve. 04/20/2017 Appointment: Petra Rivas WPtel: [facility] [place] (30 min) Complex 04/20/2017 Patient Education: Patient Medication Summary Completed 04/20/2017 Appointment: Petra Rivas WPtel: [facility] [place] (30 min) Complex 03/29/2017 Patient Education: Patient Medication Summary Completed 03/16/2017 Referral: Maycol Quijano Referral Initiated 02/08/2017 Care Plan: Referral Order SNOMED-CT : [id number] Pending 01/28/2017 Visit Plan: Insomnia - Pt [...] or concerns. 01/26/2017 Appointment: Petra Rivas WPtel: [facility] [place] (30 min) Complex 01/26/2017 Patient Education: Patient [...] acutely worsen. 01/11/2017 Appointment: Petra Rivas WPtel: [facility] [place] (15 min) Moderate 01/11/2017 Patient Education: Patient [...] on use. 11/30/2016 Appointment: Claudette Savage WPtel: [address] [place] [address] (15 min) Moderate 11/30/2016 Patient Education: Patient Medication Summary Completed 11/30/2016 Patient Education: Obesity Completed 11/30/2016 Care Plan: BMI Above normal followup SELF-MGMT EDUC & TRAIN 1 PT Pending 2016 Visit Plan: Couight-arpajehmol-kabaqgft with increase in cymbalta-no changes Insomnia-RX for belsomra provided and instructed on use Obesity-patient down 15#-no changes-continue diet/exercise-follow up in 2 months 09/28/2016 Appointment: Claudette Savage WPtel: [address] [place], [place] [phone] (15 min) Moderate 09/28/2016 Patient Education: Patient Medication Summary Completed 09/28/2016 Patient Education: Obesity Completed 09/28/2016 Care Plan: BMI Above normal followup SELF-MGMT EDUC & TRAIN 1 PT Pending 2016 Visit Plan: Grkdzrm-grotbmsbxb-szukligp-increase cymbalta to 60mg daily. Increase xanax as [...] for insomnia/anxiety 08/24/2016 Appointment: Claudette Savage [facility]el[facility] [phone] [facility] [phone] [place] (15 min) Moderate 08/24/2016 Patient Education: Patient [...] improving. 07/13/2016 [phone] (15 min) Moderate 07/13/2016 Patient Education: Patient [...] time insomnia. 05/19/2016 Appointment: Petra Rivas WPtel: [phone] [facility] [place] (30 min) Complex 05/19/2016 Patient Education: Patient [...] this patient. 03/16/2016 Appointment: Heidy Trejo WPtel: [phone] [facility] (15 min) Moderate 03/16/2016 Patient Education: Patient [...] the swab. 02/28/2016 Appointment: Claudette Savage WPtel: [phone] [phone] (10 min) Simple 02/28/2016 Patient Education: Patient [...] stop lexapro 01/13/2016 Appointment: Heidy Trejo WPtel: [facility] [place] (15 min) Moderate 01/13/2016 Patient Education: [...] 09/27/2015 Care Plan: Referral Order SNOMED-CT : [id number] Pending 08/31/2015 Visit Plan: Anxiety - the [...] pain symptoms. 07/15/2015 Appointment: Heidy Trejo WPtel: [address] [place], [place] [address] (15 min) Moderate 07/15/2015 Patient Education: Patient [...] getting treatment at vein clinic 04/02/2015 Appointment: Hussein Claud[id number] (15 min) Moderate 04/02/2015 Patient Education: Patient [...] Summary Completed 12/02/2014 Referral: Belle Hoffman WPtel: [facility] [place] they will call and set the appt with her Initiated Referral: Maycol Quijano Referral Initiated Referral: Belle Hoffman WPtel: [id number] Referral [facility]iated [facility] Initiated Instructions Comment . Hypertension - [...] 1 mg at night for anxiety . Aqdmhke-dbkhweolrz-fkvpucqy-increase cymbalta to 60mg daily. Increase xanax as [...] worsening or does not improve. BELSOMRA . Hbzbkvb-lxqptpidjx-yxlonadi with increase in cymbalta-no changes Insomnia-RX for [...]
[2017-08-07 12:53] LABS: BASOPHILS # (AUTO) 0.1 10^3/uL (0.0-0.1); BASOPHILS % (AUTO) 0 % (0-10); EOSINOPHILS # (AUTO) 0.1 10^3/uL (0.0-0.3); EOSINOPHILS % (AUTO) 1 % (0-10); HEMATOCRIT 46 % (35-52); HEMOGLOBIN 15.7 G/DL (11.5-16.0); LYMPHOCYTES % (AUTO) 24 % (12-44); MEAN CORPUSCULAR HEMOGLOBIN 30 PG (25-34); MEAN CORPUSCULAR HGB CONC 34 G/DL (32-36); MEAN CORPUSCULAR VOLUME 88 FL (80-99); MONOCYTES # (AUTO) 0.9 X 10^3 (0.0-1.0); MONOCYTES % (AUTO) 7 % (0-12); NEUTROPHILS # (AUTO) 8.3 X 10^3 (1.8-7.8); NEUTROPHILS % (AUTO) 67 % (42-75); PLATELET COUNT 334 10^3/uL (130-400); RED BLOOD COUNT 5.27 10^6/uL (4.35-5.85); RED CELL DISTRIBUTION WIDTH 13.2 % (10.0-14.5); WHITE BLOOD COUNT 12.3 10^3/uL (4.3-11.0)
--- NOTE | 2017-08-07 13:04 | ED Chest Pain ---
General Chief Complaint: Chest Pain Stated Complaint: CP Nursing Triage Note: c/o chest pain described as tightness. 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 NTG x 1 improved from 10 to 6 scale 1-10. Nursing Sepsis Screen: No Definite Risk Source: patient Exam Limitations: no limitations History of Present Illness Date Seen by Provider: Aug 07, 2017 Time Seen by Provider: 12:15 Initial Comments Here with report of central chest pain that she describes as crushing it started approximately 45 minutes prior to arrival. This occurred when she was working on her house. EMS was called. They did give 4 baby aspirin and 1 sublingual nitroglycerin that decreased her pain to about a 6 out of 10. Denies nausea, vomiting, sweating or shortness of breath. She's never had anything like this before. She is diabetic and does smoke. 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 Associated Symptoms: No abdominal pain, No back pain, No diaphoresis, No edema , No fatigue, No fever/chills, No nausea/vomiting, No shortness of breath, No weakness Allergies and Home Medications Allergies Coded Allergies: tramadol (Verified Allergy, Intermediate, N/V, COLD SWEATS, 11/11/15) Penicillins (Verified Allergy, Unknown, 11/11/15) Home Medications Alprazolam 1 Mg Tablet, 1 MG PO BID PRN for ANXIETY, (Reported) Diazepam 2 Mg Tablet, 2 MG PO BID PRN for ANXIETY, (Reported) Duloxetine HCl 60 Mg Capsule.dr, 60 MG PO DAILY, (Reported) Hydrocodone/Acetaminophen 1 Each Tablet, 1 TAB PO Q4H PRN for PAIN-MILD TO MODERATE Prescribed by: KELVIN MCBRIDE on 03/02/17 0949 Liraglutide 0.6 Mg/0.1 Ml Pen.injctr, 1.8 MG SQ DAILY, (Reported) Patient Home Medication List Home Medication List Reviewed: Yes Review of Systems Constitutional: see HPI, No chills, No fever EENTM: No Symptoms Reported Respiratory: See HPI Cardiovascular: See HPI, Chest Pain, Denies Edema, Denies Palpitations Gastrointestinal: No Symptoms Reported Genitourinary: No Symptoms Reported Musculoskeletal: No back pain, No muscle pain Skin: no symptoms reported Psychiatric/Neurological: No Symptoms Reported All Other Systems Reviewed Negative Unless Noted: Yes Past Drvrfau-Ekbcul-Iikqyg Hx Patient Social History Alcohol Use: Denies Use Recreational Drug Use: No Smoking Status: Current Everyday Smoker Type Used: Electronic/Vapor Former Smoker, Quit: May 14, 2013 Recent Foreign Travel: No Contact w/Someone Who Travel: No Recent Infectious Disease Expo: No Recent Hopitalizations: No Immunizations Up To Date Date of Influenza Vaccine: Feb 12, 2012 Seasonal Allergies Seasonal Allergies: Yes Surgeries History of Surgeries: Yes Surgeries: Hysterectomy Respiratory History of Respiratory Disorde: Yes Respiratory Disorders: Asthma Cardiovascular Cardiac Disorders: Palpitations Neurological History of Neurological Disord: Yes Neurological Disorders: Headaches /Migraines Reproductive System : Yes Hx Reproductive Disorders: No Sexually Transmitted Disease: No HIV/AIDS: No Female Reproductive Disorders: Menstrual Problems Musculoskeletal History of Musculoskeletal Dis: Yes Musculoskeletal Disorders: Degenerate Disk Disease, Arthritis, Chronic Back Pain HEENT History of HEENT Disorders: No Loss of Vision: Bilateral Hearing Impairment: Denies Cancer History of Cancer: No Psychosocial History of Psychiatric Problem: Yes Behavioral Health Disorders: Anxiety Blood Transfusions Adverse Reaction to a Blood Tr: No (N/A) Reviewed Nursing Assessment Reviewed/Agree w Nursing PMH: Yes Family Medical History Significant Family History: CAD Under 55 Years Old Family Medial History: ANEURYSM 19 MOTHER Coronary thrombosis 19 FATHER Diabetes mellitus 19 FATHER HEART ATTACK 19 FATHER 19 MOTHER Hypertension 19 FATHER 19 MOTHER Parkinson's disease 19 FATHER Physical Exam Vital Signs Vital Signs - First Documented 08/07/17 12:13 Temp 97.5 Pulse 70 Resp 16 B/P (MAP) 98/59 (72) Pulse Ox 98 O2 Delivery Room Air Capillary Refill : Less Than 3 Seconds General Appearance: WD/WN, Mild Distress HEENT: PERRL/EOMI, Pharynx Normal Neck: Non Tender, Supple Respiratory: Lungs Clear, Normal Breath Sounds Cardiovascular: Regular Rate, Rhythm, No Murmur, Normal Peripheral Pulses Gastrointestinal: Non Tender, Soft Extremity: Normal Inspection, Normal Range of Motion, Non Tender Neurologic/Psychiatric: Alert, Oriented x3 Skin: Normal Color, Warm/Dry Progress/Results/Core Measures Results/Orders Lab Results Laboratory Tests Test 08/07/17 12:42 Range/Units White Blood Count 12.3 H 4.3-11.0 10^3/uL Red Blood Count 5.27 4.35-5.85 10^6/uL Hemoglobin 15.7 11.5-16.0 G/DL Hematocrit 46 35-52 % Mean Corpuscular Volume 88 80-99 FL Mean Corpuscular Hemoglobin 30 25-34 PG Mean Corpuscular Hemoglobin Concent 34 32-36 G/DL Red Cell Distribution Width 13.2 10.0-14.5 % Platelet Count 334 130-400 10^3/uL Mean Platelet Volume 10.0 7.4-10.4 FL Neutrophils (%) (Auto) 67 42-75 % Lymphocytes (%) (Auto) 24 12-44 % Monocytes (%) (Auto) 7 0-12 % Eosinophils (%) (Auto) 1 0-10 % Basophils (%) (Auto) 0 0-10 % Neutrophils # (Auto) 8.3 H 1.8-7.8 X 10^3 Lymphocytes # (Auto) 3.0 1.0-4.0 X 10^3 Monocytes # (Auto) 0.9 0.0-1.0 X 10^3 Eosinophils # (Auto) 0.1 0.0-0.3 10^3/uL Basophils # (Auto) 0.1 0.0-0.1 10^3/uL Prothrombin Time 12.5 12.2-14.7 SEC INR Comment 0.9 0.8-1.4 Activated Partial Thromboplast Time 27 24-35 SEC D-Dimer 0.30 0.00-0.49 UG/ML Sodium Level 139 135-145 MMOL/L Potassium Level 3.7 3.6-5.0 MMOL/L Chloride Level 106 98-107 MMOL/L Carbon Dioxide Level 23 21-32 MMOL/L Anion Gap 10 5-14 MMOL/L Blood Urea Nitrogen 24 H 7-18 MG/DL Creatinine 0.70 0.60-1.30 MG/DL Estimat Glomerular Filtration Rate > 60 BUN/Creatinine Ratio 34 Glucose Level 122 H 70-105 MG/DL Calcium Level 9.4 8.5-10.1 MG/DL Magnesium Level 1.8 1.8-2.4 MG/DL Total Bilirubin 0.4 0.1-1.0 MG/DL Aspartate Amino Transf (AST/SGOT) 21 5-34 U/L Alanine Aminotransferase (ALT/SGPT) 22 0-55 U/L Alkaline Phosphatase 120 40-136 U/L Myoglobin 40.2 10.0-92.0 NG/ML Troponin I < 0.30 <0.30 NG/ML Total Protein 6.9 6.4-8.2 GM/DL Albumin 3.9 3.2-4.5 GM/DL Amylase Level 27 25-125 U/L Lipase 40 8-78 U/L My Orders Orders - DALE LA MD Cbc With Automated Diff (08/07/17 12:19) Magnesium (08/07/17 12:19) Chest 1 View, Ap/Pa Only (08/07/17 12:19) Ekg Tracing (08/07/17 12:19) Cardiac Profile 1 (08/07/17 12:) Comprehensive Metabolic Panel (08/07/17 12:19) Myoglobin Serum (08/07/17 12:19) Protime With Inr (08/07/17 12:19) Partial Thromboplastin Time (08/07/17 12:19) O2 (08/07/17 12:19) Monitor-Rhythm Ecg Trace Only (08/07/17 12:19) Lipid Panel (08/08/17 06:00) Nitroglycerin 0.4 Mg Btl 25's (Nitrostat (08/07/17 12:30) Saline Lock/Iv-Start (08/07/17 12:19) Lipase (08/07/17 12:19) Amylase (08/07/17 12:19) Fibrin Degradation Products (08/07/17 12:19) Clopidogrel Tablet (Plavix Tablet) (08/07/17 14:00) Vital Signs/I&O Vital Sign - Last 12Hours 08/07/17 12:13 Temp 97.5 Pulse 70 Resp 16 B/P (MAP) 98/59 (72) Pulse Ox 98 O2 Delivery Room Air Blood Pressure Mean: 72 Progress Note : Progress Note Seen and evaluated. IV by EMS. Labs, EKG and chest x-ray ordered. ASA has been given. Nitroglycerin sublingual repeated 1. This did improve her pain again. Monitor patient. 1349: Discussed case with Dr. Trejo. Admit, observation status. Consult Dr. Redmond. He accepts patient in consult. Recommends Plavix 300 mg by mouth. This was given. Patient and family agree with plan. ECG Initial ECG Impression Date: Aug 07, 2017 Initial ECG Impression Time: 12:13 Initial ECG Rate: 76 Initial ECG Rhythm: Normal Sinus Comment Sinus rhythm with left atrial abnormality. No evidence of ST elevation ND. No previous available for comparison. Interpreted by me. Diagnostic Imaging Diagonstic Imaging: Xray Plain Films/CT/US/NM/MRI: chest Comments VIA [facility]. [place], [place] NAME: [facility] REC#: [id number] PT STATUS: REG ER : 1965 PHYSICIAN: DALE LA MD ADMIT DATE: 08/07/17/ER Draft Date of Exam:08/07/17 CHEST 1 VIEW, AP/PA ONLY INDICATION: Chest pain. TIME OF EXAM: 1:23 p.m. COMPARISON: Comparison is made with prior study from 06/14/2007. FINDINGS: The heart size is normal. The pulmonary vascularity is unremarkable. The lungs are clear. No infiltrate, effusion or pneumothorax is detected. IMPRESSION: No acute cardiopulmonary process is detected. Dictated on workstation # [id number] Dict: 08/07/17 1331 Trans: 08/07/17 1334 [id number] Interpreted by: SUSY THOMAS MD Electronically signed by: Departure Communication (Admissions) Time/Spoke to Admitting Phy: 13:49 Time/Spoke to Consulting Phy: 13:51 Impression Impression: Primary Impression: Chest pain Qualified Codes: R07.9 - Chest pain, unspecified Disposition: 09 ADMITTED INPATIENT Condition: Stable Admissions Decision to Admit Reason: Admit from ER (General) Decision to Admit/Date: Aug 07, 2017 Time/Decision to Admit Time: 13:49 Departure-Patient Inst. Referrals: ELMA TREJO MD (PCP/Family) Primary Care Physician DALE LA MD Aug 07, 2017 13:04
[2017-08-07 13:17] LABS: ALANINE AMINOTRANSFERASE 22 U/L (0-55); ALBUMIN 3.9 GM/DL (3.2-4.5); ALKALINE PHOSPHATASE 120 U/L (40-136); AMYLASE 27 U/L (25-125); BILIRUBIN,TOTAL 0.4 MG/DL (0.1-1.0); BUN/CREATININE RATIO 34; CALCIUM 9.4 MG/DL (8.5-10.1); CARBON DIOXIDE 23 MMOL/L (21-32); CHLORIDE 106 MMOL/L (98-107); GFR ESTIMATED > 60; GLUCOSE 122 MG/DL (70-105); LIPASE 40 U/L (8-78); MAGNESIUM 1.8 MG/DL (1.8-2.4); POTASSIUM 3.7 MMOL/L (3.6-5.0); SODIUM 139 MMOL/L (135-145); TOTAL PROTEIN 6.9 GM/DL (6.4-8.2)
[2017-08-07 13:18] LABS: INR 0.9 (0.8-1.4); PROTHROMBIN TIME PATIENT 12.5 SEC (12.2-14.7)
[2017-08-07 13:23] LABS: MYOGLOBIN SERUM 40.2 NG/ML (10.0-92.0)
--- NOTE | 2017-08-07 13:34 | Diagnostic Imaging Report ---
INDICATION: Chest pain. TIME OF EXAM: 1:23 p.m. COMPARISON: Comparison is made with prior study from 06/14/2007. FINDINGS: The heart size is normal. The pulmonary vascularity is unremarkable. The lungs are clear. No infiltrate, effusion or pneumothorax is detected. IMPRESSION: No acute cardiopulmonary process is detected. Dictated by: Dictated on workstation # [id number]
[2017-08-07] MEDS ORDERED: CLOPIDOGREL 300 MG (PLAVIX) TABLET PO ONE (14:00)
[2017-08-07] MEDS ORDERED: ASPIRIN E.C. 325 MG (ECOTRIN) TABLET PO SCH (15:30)
[2017-08-07] MEDS ORDERED: CATHETER FLUSH 10 ML SYR IV PRN (15:30)
[2017-08-07] MEDS ORDERED: NS IV 1000 ML 1,000 ML IV SCH (15:30)
[2017-08-07] MEDS ORDERED: ZOLP10TA5 PO (16:04)
[2017-08-07] MEDS ORDERED: HYDR-3816 PO (16:04)
[2017-08-07] MEDS ORDERED: TRAM50TA2 PO (16:13)
[2017-08-07] MEDS ORDERED: ALPR1TAB7 PO (16:13)
[2017-08-07] MEDS: inSUlin (REGULAR) HUMAN 1 UNIT/0.01 ML (CHARGE PER UNIT) SC SCH (17:16)
--- NOTE | 2017-08-07 18:03 | History & Physicial ---
History of Present Illness History of Present Illness Reason for visit/HPI PT IS A 52 Y/O FEMALE WHO IS KNOWN TO ME FROM CLINIC. SHE HAS BEEN TAKING A NEW DIET SUPPLEMENT FOR THE PAST 5 DAYS WITH ELECTROLYTES, CAFFEINE AND VITAMINS IN A DRINK FORM. SHE STATES THAT SHE HAD BEEN FEELING FINE WITH THE SUPPLEMENT AND HAS BEEN TAKING IN HELEN COFFEE AND NO POP WHILE ON THE SUPPLEMENT. SHE REPORTS THAT SHE HAD ACUTE RIGHT SIDED CHEST PAIN THIS MORNING , WAS IN SO MUCH DISCOMFORT THAT SHE WAS UNABLE TO GET HERSELF UP OFF OF THE FLOOR. SHE REPORTS EXTENSIVE FAMILY HISTORY OF CORONARY ARTERY DISEASE. Date of Admission Aug 07, 2017 at 13:54 Date Seen by Provider: Aug 07, 2017 Time Seen by Provider: 19:00 Attending Physician Elma Trejo MD Admitting Physician Elma Trejo MD Consult DR. SCHROEDER Allergies and Home Medications Allergies Coded Allergies: Penicillins (Verified Allergy, Unknown, 08/07/17) Home Medications Alprazolam 1 Mg Tablet, 1 MG PO HS, (Reported) Alprazolam 1 Mg Tablet, 1 MG PO BID PRN for ANXIETY, (Reported) Duloxetine HCl 60 Mg Capsule.dr, 60 MG PO DAILY, (Reported) Hydrocodone/Acetaminophen 1 Each Tablet, 1 TAB PO Q6H PRN for PAIN-MODERATE, ( Reported) Liraglutide 0.6 Mg/0.1 Ml Pen.injctr, 1.8 MG SQ HS, (Reported) Tramadol HCl 50 Mg Tablet, 50 MG PO TID PRN for PAIN-MODERATE, (Reported) Zolpidem Tartrate 10 Mg Tablet, 10 MG PO HS, (Reported) Patient Home Medication List Home Medication List Reviewed: Yes Past Dpvqojl-Tlvipk-Optfsk Hx Patient Social History Marrital Status: cohabiting Living Status: LIVES WITH PARTNER AND HER CHILDREN Employed/Student: employed Alcohol Use: Denies Use Recreational Drug Use: No Smoking Status: Current Everyday Smoker Former Smoker, Quit: May 14, 2013 Type Used: Electronic/Vapor Recent Foreign Travel: No Contact w/other who traveled: No Recent Hopitalizations: No Recent Infectious Disease Expo: No Immunizations Up To Date Date of Influenza Vaccine: Feb 12, 2012 Seasonal Allergies Seasonal Allergies: Yes Surgeries Yes Hysterectomy Respiratory Yes Cardiovascular Palpitations Neurological Yes Headaches /Migraines Reproductive System : Yes Hx Reproductive Disorders: No Sexually Transmitted Disease: No HIV/AIDS: No Female Reproductive Disorders: Menstrual Problems Genitourinary No Gastrointestinal No Musculoskeletal Yes Degenerate Disk Disease, Arthritis, Chronic Back Pain Endocrine History of Endocrine Disorders: No HEENT History of HEENT Disorders: No Loss of Vision: Bilateral Hearing Impairment: Denies Cancer No Psychosocial History of Psychiatric Problem: Yes Behavioral Health Disorders: Anxiety Blood Transfusions Adverse Reaction to a Blood Tr: No (N/A) Reviewed Nursing Assessment Reviewed/Agree w Nursing PMH: Yes Family Medical History Significant Family History: Heart Disease, CAD Under 55 Years Old, Diabetes, Hypertension, Vascular Disease Family Hx: ANEURYSM 19 MOTHER Coronary thrombosis 19 FATHER Diabetes mellitus 19 FATHER HEART ATTACK 19 FATHER 19 MOTHER Hypertension 19 FATHER 19 MOTHER Parkinson's disease 19 FATHER Constitutional: No chills, No diaphoresis, malaise EENTM: No hoarseness, No throat pain Respiratory: No cough, No dyspnea on exertion, No short of breath Cardiovascular: chest pain Gastrointestinal: abdominal pain (RUQ) Genitourinary: no symptoms reported Musculoskeletal: back pain, joint pain, muscle pain, muscle weakness Skin: no symptoms reported Psychiatric/Neurological: Anxiety, Depressed All Other Systems Reviewed Negative Unless Noted: Yes Physical Exam Vital Signs Vital Signs - First Documented 08/07/17 12:13 Temp 97.5 Pulse 70 Resp 16 B/P (MAP) 98/59 (72) Pulse Ox 98 O2 Delivery Room Air Capillary Refill : Less Than 3 Seconds General Appearance: No Apparent Distress, WD/WN Eyes: Bilateral Eye Normal Inspection, Bilateral Eye PERRL, Bilateral Eye EOMI HEENT: PERRL/EOMI, Pharynx Normal Neck: Full Range of Motion, Supple Respiratory: Chest Non Tender, Lungs Clear, Normal Breath Sounds, No Accessory Muscle Use Cardiovascular: Regular Rate, Rhythm Gastrointestinal: Normal Bowel Sounds, Soft, Tenderness (RIGHT UPPER QUADRANT) Rectal: Deferred Back: Normal Inspection Extremity: Normal Capillary Refill, Non Tender, No Calf Tenderness, No Pedal Edema Neurologic/Psychiatric: Alert, Oriented x3, No Motor/Sensory Deficits, Normal 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 SCHROEDER - PT WILL NEED STRESS TESTING - THUS FAR HER CARDIAC PANEL IS NEGATIVE. RIGHT UPPER ABDOMINAL PAIN - CHECK GB ULTRASOUND TOMORROW MORNING. DEPRESSION AND ANXIETY - RESUME HOME MEDICATION FOR ANXIETY AND DEPRESSION. OBESITY - MONITOR - SUPPORTIVE CARE DIABETES MELLITUS - RESTART VICTOZA. Problems: Admission Diagnosis Admission Status: Observation Clinical Quality Measures AMI/AHF: ASA po Prior to arrival: Yes ELMA TREJO MD Aug 07, 2017 18:03
[2017-08-07] MEDS ORDERED: RT-ALBUTEROL SULF 2.5 MG/3 ML PRE-MIX VIAL INH PRN (19:00)
[2017-08-07] MEDS ORDERED: ALPRAZolam 1 MG (XANAX) TAB PO PRN (20:45)
[2017-08-07] MEDS ORDERED: HYDROcodone/APAP 7.5 MG/325 MG (LORTAB, LORCET PLUS) TABLET PO PRN (20:45)
[2017-08-07] MEDS ORDERED: PATIENT MAY USE OWN MED,SINGLE MED PO SCH (20:45)
[2017-08-07] MEDS ORDERED: ZOLPIDEM 5 MG (AMBIEN) TAB PO SCH (21:00)
[2017-08-07] MEDS ORDERED: NON-FORMULARY MEDICATION 1 EA EA (Liraglutide (Victoza 3-Pak) 1.8 MG) SQ SCH (21:00)
[2017-08-07] MEDS ORDERED: ALPRAZolam 1 MG (XANAX) TAB PO SCH (21:00)
[2017-08-08 02:17] LABS: BASOPHILS # (AUTO) 0.1 10^3/uL (0.0-0.1); BASOPHILS % (AUTO) 0 % (0-10); EOSINOPHILS # (AUTO) 0.2 10^3/uL (0.0-0.3); EOSINOPHILS % (AUTO) 2 % (0-10); HEMATOCRIT 46 % (35-52); HEMOGLOBIN 15.2 G/DL (11.5-16.0); LYMPHOCYTES # (AUTO) 3.3 X 10^3 (1.0-4.0); LYMPHOCYTES % (AUTO) 30 % (12-44); MEAN CORPUSCULAR HEMOGLOBIN 29 PG (25-34); MEAN CORPUSCULAR HGB CONC 33 G/DL (32-36); MEAN CORPUSCULAR VOLUME 88 FL (80-99); MEAN PLATELET VOLUME 9.8 FL (7.4-10.4); MONOCYTES % (AUTO) 9 % (0-12); NEUTROPHILS # (AUTO) 6.6 X 10^3 (1.8-7.8); NEUTROPHILS % (AUTO) 59 % (42-75); PLATELET COUNT 330 10^3/uL (130-400); RED BLOOD COUNT 5.18 10^6/uL (4.35-5.85); RED CELL DISTRIBUTION WIDTH 13.4 % (10.0-14.5); WHITE BLOOD COUNT 11.2 10^3/uL (4.3-11.0)
[2017-08-08 02:50] LABS: ALANINE AMINOTRANSFERASE 21 U/L (0-55); ALBUMIN 3.7 GM/DL (3.2-4.5); ALKALINE PHOSPHATASE 101 U/L (40-136); BILIRUBIN,TOTAL 0.4 MG/DL (0.1-1.0); BUN/CREATININE RATIO 24; CALCIUM 9.2 MG/DL (8.5-10.1); CARBON DIOXIDE 24 MMOL/L (21-32); CHLORIDE 107 MMOL/L (98-107); CHOLESTEROL 193 MG/DL (< 200); CREATININE SERUM 0.66 MG/DL (0.60-1.30); GFR ESTIMATED > 60; GLUCOSE 125 MG/DL (70-105); HDL CHOLESTEROL 44 MG/DL (40-60); POTASSIUM 3.9 MMOL/L (3.6-5.0); SODIUM 141 MMOL/L (135-145); TOTAL PROTEIN 6.3 GM/DL (6.4-8.2); TRIGLYCERIDES 151 MG/DL (<150); VLDL CHOLESTEROL 30 MG/DL (5-40)
[2017-08-08 02:55] LABS: CARDIAC PROFILE 2 < 0.30 NG/ML (<0.30)
[2017-08-08] MEDS: inSUlin (REGULAR) HUMAN 1 UNIT/0.01 ML (CHARGE PER UNIT) SC SCH ×3 (03:44→14:45)
[2017-08-08 04:00] VITALS: BP 130/60
[2017-08-08 08:00] VITALS: BP 132/62
[2017-08-08] MEDS ORDERED: ASPI325T32 PO (08:46)
[2017-08-08] MEDS ORDERED: ATOR20TA66 PO (08:46)
--- NOTE | 2017-08-08 08:48 | Discharge Summary ---
Diagnosis/Chief Complaint Date of Admission Aug 07, 2017 at 13:54 Date of Discharge Discharge Date: Aug 08, 2017 Discharge Time: 1400 Admission Diagnosis Admission Diagnosis CHEST PAIN RIGHT UPPER ABDOMINAL PAIN ANXIETY OBESITY DEPRESSION DIABETES MELLITUS Discharge Diagnosis CHEST PAIN RIGHT UPPER ABDOMINAL PAIN ANXIETY OBESITY DEPRESSION DIABETES MELLITUS Reason Hospital Visit PT IS A 52 Y/O FEMALE WHO IS KNOWN TO ME FROM CLINIC. SHE HAS BEEN TAKING A NEW DIET SUPPLEMENT FOR THE PAST 5 DAYS WITH ELECTROLYTES, CAFFEINE AND VITAMINS IN A DRINK FORM. SHE STATES THAT SHE HAD BEEN FEELING FINE WITH THE SUPPLEMENT AND HAS BEEN TAKING IN HELEN COFFEE AND NO POP WHILE ON THE SUPPLEMENT. SHE REPORTS THAT SHE HAD ACUTE RIGHT SIDED CHEST PAIN THIS MORNING , WAS IN SO MUCH DISCOMFORT THAT SHE WAS UNABLE TO GET HERSELF UP OFF OF THE FLOOR. SHE REPORTS EXTENSIVE FAMILY HISTORY OF CORONARY ARTERY DISEASE. Discharge Summary Consultations DR. SCHROEDER Discharge Physical Examination Allergies: Coded Allergies: Penicillins (Verified Allergy, Unknown, 08/07/17) Vitals & I&Os Vital Signs Date Time Temp Pulse Resp B/P (MAP) Pulse Ox O2 Delivery O2 Flow Rate FiO2 08/08/17 12:19 93 18 146/88 (107) 98 08/08/17 08:00 97.4 Room Air General Appearance: Alert, Oriented X3, Cooperative HEENT: Atraumatic, PERRLA Respiratory: Clear to Auscultation Cardiovascular: Regular Rate Abdominal: Normal Bowel Sounds, Soft, No Tenderness Extremities: No Clubbing, No Cyanosis Skin: No Rashes, No Breakdown Neuro: Normal Speech, Strength at 5/5 X4 Ext, Cranial Nerves 3-12 NL Psych/Mental Status: Mental Status NL, Mood NL Hospital Course CHEST PAIN RIGHT UPPER ABDOMINAL PAIN ANXIETY OBESITY DEPRESSION DIABETES MELLITUS CHEST PAIN - CONSULTATION TO DR. SCHROEDER - THUS FAR HER CARDIAC PANEL IS NEGATIVE. STRESS TESTING NEGATIVE RIGHT UPPER ABDOMINAL PAIN - CHECKED GB ULTRASOUND - NEGATIVE DEPRESSION AND ANXIETY - RESUME HOME MEDICATION FOR ANXIETY AND DEPRESSION. OBESITY - MONITOR - SUPPORTIVE CARE DIABETES MELLITUS - RESTART VICTOZA. Pending Labs Discharge Condition at discharge RESOLVED Instructions to patient/family Please see electronic discharge instructions given to patient. Discharge Medications Reviewed and agree with Discharge Medication list on patient's Discharge Instruction sheet Clinical Quality Measures AMI/AHF: ASA po Prior to arrival: Yes DVT/VTE Risk/Contraindication: Risk Factor Score Per Nursin RFS Level Per Nursing on Admit: 4+=Very High ELMA STEPHENS MD Aug 08, 2017 08:48
[2017-08-08] MEDS ORDERED: ASPIRIN E.C. 325 MG (ECOTRIN) TABLET PO SCH ×2 (09:00)
--- NOTE | 2017-08-08 09:26 | Diagnostic Imaging Report ---
PROCEDURE: US Gallbladder. TECHNIQUE: Multiple real-time grayscale images were obtained over the right upper quadrant in various projections. INDICATION: Right upper quadrant pain. FINDINGS: Liver is mildly enlarged at 19 cm. There is increased echogenicity throughout the liver consistent with hepatic steatosis. No discrete liver mass is identified. Gallbladder is without stones or sludge. No wall thickening is seen. No intrahepatic or extrahepatic biliary duct dilatation is identified. The visualized pancreas is unremarkable. Right kidney is unremarkable. There is no ascites. IMPRESSION: Hepatomegaly and hepatic steatosis. No other significant abnormality is detected. Dictated by: Dictated on workstation # [id number]
--- NOTE | 2017-08-08 09:59 | Consultation-Cardiology ---
HPI-Cardiology Cardiology Consultation: Date of Consultation 08/08/17 Date of Admission Attending Physician Elma Trejo MD Admitting Physician Elma Trejo MD Consulting Physician Jennifer REDMOND MD HPI: Time Seen by Provider: 08:55 Chief Complaint: Chest pain This is a 52-year-old lady who is a patient of Dr. Trejo. She has history of diabetes and active smoking. She presents with chest pain radiating to the right arm. Moderate intensity. No exacerbating or relieving factors. Substernal with no clear quality. Significant improvement since admission. Review of Systems-Cardiology Review of Systems Constitutional: No As described under HPI, No no symptoms reported, No chills, No fever, No lightheadedness, No malaise, No tiredness, No weight loss, No weight gain, No other Eyes: No As described under HPI, No no symptoms reported, No blindness, No blurred vision, No contact lenses, No drainage, No decreased acuity, No foreign body sensation, No glasses, No inflammation, No pain, No photophobia, No previous injury, No shadows, No tunnel vision, No other, No vision change Ears/Nose/Throat: No As described under HPI, No no symptoms reported, No chronic hearing loss, No epistaxis, No ear discharge, No ear pain, No loose teeth, No mouth pain, No mouth swelling, No nasal drainage, No nose pain, No recent hearing loss, No throat pain, No throat swelling, No ulcerations, No other Respiratory: No no symptoms reported, No As described under HPI, No cough, No orthopnea, No shortness of breath, No SOB with excertion, No SOB at rest, No stridor, No wheezing, No other Cardiovascular: chest pain Gastrointestinal: No no symptoms reported, No As described under HPI, No abdomen distended, No abdominal pain, No blood streaked bowels, No constipation , No diarrhea, No difficulty swallowing, No nausea, No poor appetite, No poor fluid intake, No rectal bleeding, No vomiting, No other, No nausea/vomiting/ diarrhea, No stool coloration changes Genitourinary: No no symptoms reported, No As described under HPI, No burning, No dysuria, No discharge, No frequency, No flank pain, No hematuria, No incontinence, No pain, No urgency, No other, No urine frequency changes, No urine coloration changes Musculoskeletal: No no symptoms reported, No As describe under HPI, No back pain, No gout, No joint pain, No joint swelling, No muscle pain, No muscle stiffness, No neck pain, No other Skin: No no symptoms reported, No As described under HPI, No change in color, No change in hair/nails, No dryness, No lesions, No lumps, No rash, No other, No skin related problems, No ulcerations, No rash on exposed areas, No ulcerations on exposed areas Psychiatric/Neurological: No no symptoms reported, No As described under HPI, No anxiety, No depression, No emotional problems, No headache, No numbness, No pre-existing deficit, No seizure, No tingling, No tremors, No weakness, No other , No focal weakness, No syncope Hematologic: No no symptoms reported, No As described under HPI, No anemia, No blood clots, No easy bleeding, No easy bruising, No swollen glands, No other, No bleeding abnormalities All Other Systems Reviewed Negative Unless Noted: Yes [id number] Hx Patient Social History Marrital Status: cohabiting Living Status: LIVES WITH PARTNER AND HER CHILDREN Employed/Student: employed Alcohol Use: Denies Use Recreational Drug Use: No Smoking Status: Current Everyday Smoker Type Used: Electronic/Vapor Recent Foreign Travel: No Recent Infectious Disease Expo: No Hospitalization with Isolation: Denies Physical Abuse Screen: No Sexual Abuse: No Immunizations Up To Date Date of Pneumonia Vaccine: Feb 28, 2017 Date of Influenza Vaccine: Feb 28, 2017 Past Medical History PMH As described under Assessment. Family Medical History Family History: ANEURYSM 19 MOTHER Coronary thrombosis 19 FATHER Diabetes mellitus 19 FATHER HEART ATTACK 19 FATHER 19 MOTHER Hypertension 19 FATHER 19 MOTHER Parkinson's disease 19 FATHER Allergies and Home Medications Allergies Coded Allergies: Penicillins (Verified Allergy, Unknown, 08/07/17) Home Medications Alprazolam 1 Mg Tablet, 1 MG PO HS, (Reported) Alprazolam 1 Mg Tablet, 1 MG PO BID PRN for ANXIETY, (Reported) Aspirin 325 Mg Tablet.dr, 325 MG PO DAILY Prescribed by: ELMA TREJO on 08/08/17 0846 Atorvastatin Calcium 20 Mg Tablet, 20 MG PO DAILY Prescribed by: ELMA TREJO on 08/08/17 0846 Duloxetine HCl 60 Mg Capsule.dr, 60 MG PO DAILY, (Reported) Hydrocodone/Acetaminophen 1 Each Tablet, 1 TAB PO Q6H PRN for PAIN-MODERATE, ( Reported) Liraglutide 0.6 Mg/0.1 Ml Pen.injctr, 1.8 MG SQ HS, (Reported) Tramadol HCl 50 Mg Tablet, 50 MG PO TID PRN for PAIN-MODERATE, (Reported) Zolpidem Tartrate 10 Mg Tablet, 10 MG PO HS, (Reported) Patient Home Medication List Home Medication List Reviewed: Yes Physical Exam-Cardiology Physical Exam Vital Signs/I&O Vital Sign - Last 12Hours 08/07/17 08/08/17 08/08/17 08/08/17 23:55 01:00 04:00 06:43 Temp 96.7 97.1 Pulse 71 65 79 Resp 20 21 B/P (MAP) 142/68 (92) 130/60 (83) Pulse Ox 93 91 91 O2 Delivery Room Air Room Air Room Air 08/08/17 08/08/17 07:00 08:00 Temp 97.4 Pulse 70 73 Resp 18 B/P (MAP) 132/62 (85) Pulse Ox 93 O2 Delivery Room Air Intake and Output 08/08/17 00:00 Intake Total 420 ml Balance 420 ml Capillary Refill : Less Than 3 Seconds Constitutional: No appears stated age, AAO x 3, No apparent distress, No PERRL , No well-developed, No well-nourished, No other HEENT: PERRL, No normal ENT inspection, No TMs normal, No pharynx normal, No scleral icterus (R), No scleral icterus (L), No pale conjunctivae (R), No pale conjunctivae (L), No photophobia, No TM abnormal (R), No TM abnormal (L), No pharyngeal erythema, No tonsillar exudate, No other, No discharge, No EOMI, hearing is well preserved, No hard of hearing, oral hygience is good, No ulceration, No xanthelasmas are seen Neck: No non-tender, No full range of motion, No supple, No normal inspection, No carotid bruit, No limited range of motion, No lymphadenopathy (R), No lymphadenopathy (L), No tender lateral, No tender midline, No thyromegaly, No other, carotid pulses are 2 + bilaterally, No with good upstrokes Respiratory: No accessory muscle use, No respiratory distress, No chest tender , No chest expansion is symmetric, chest is bilaterally symmetric, No lungs clear to percussion, lungs clear to auscultation, No crackles, No rhonchi, No rales, No stridor, No wheezing, No pleural rub, No other Cardiovascular: regular rate-rhythm, No irregularly irregular, No extra beats, No parasternal heave is noted, No JVD, No edema, No bradycardia, No tachycardia , No point of maximal impulse, No cardiac thrills are palpable, S1 and S2, No gallop/S3, No gallop/S4, No diastolic murmur, No systolic murmur, No friction rub, No click, No other Gastrointestinal: No tender, No soft, No round, No distended, No pulsatile mass , No organomegaly, No guarding, No rebound, No tenderness, No hernia, No mass, No audible bowel sounds, No abnormal bowel sounds, No abdominal bruits, No spleenomegaly, No other Rectal: deferred Extremities: No normal range of motion, No non-tender, No normal inspection, No pedal edema, No calf tenderness, No normal capillary refill, No pelvis stable , No calf tenderness, No inflammation, No pedal edema, No slow capillary refill , No swelling, No other, No abrasion, No clubbing, No cyanosis, No ecchymosis, No laceration, No no lower extremity edema bilateral, No significant edema, No tenderness, No wound Neurologic/Psychiatric: No dsp engineer II-XII nml as tested, No no motor/sensory deficits, alert, normal mood/affect, oriented x 3, No abnormal cerebellar tests , No abnormal dsp engineer II-XII, No abnormal gait, No aphasia, No EOM palsy, No facial droop, No motor weakness, No sensory deficit, No depressed affect, No disoriented x 3, No other, No grossly intact, No power is 5/5 both on sides Skin: No normal color, No warm/dry, No cyanosis, No cool, No diaphoresis, No damp, No ecchymosis, No jaundice, No mottled, No pallor, No rash, No tattoos/ piercings, No ulcerations, No rash on exposed areas, No ulcerations on exposed areas, No other Data Review Labs Laboratory Tests 08/07/17 12:42: White Blood Count 12.3H, Red Blood Count 5.27, Hemoglobin 15.7, Hematocrit 46, Mean Corpuscular Volume 88, Mean Corpuscular Hemoglobin 30, Mean Corpuscular Hemoglobin Concent 34, Red Cell Distribution Width 13.2, Platelet Count 334, Mean Platelet Volume 10.0, Neutrophils (%) (Auto) 67, Lymphocytes (%) (Auto) 24 , Monocytes (%) (Auto) 7, Eosinophils (%) (Auto) 1, Basophils (%) (Auto) 0, Neutrophils # (Auto) 8.3H, Lymphocytes # (Auto) 3.0, Monocytes # (Auto) 0.9, Eosinophils # (Auto) 0.1, Basophils # (Auto) 0.1, Prothrombin Time 12.5, INR Comment 0.9, Activated Partial Thromboplast Time 27, D-Dimer 0.30, Sodium Level 139, Potassium Level 3.7, Chloride Level 106, Carbon Dioxide Level 23, Anion Gap 10, Blood Urea Nitrogen 24H, Creatinine 0.70, Estimat Glomerular Filtration Rate > 60, BUN/Creatinine Ratio 34, Glucose Level 122H, Calcium Level 9.4, Magnesium Level 1.8, Total Bilirubin 0.4, Aspartate Amino Transf (AST/SGOT) 21, Alanine Aminotransferase (ALT/SGPT) 22, Alkaline Phosphatase 120, Myoglobin 40.2 , Troponin I < 0.30, Total Protein 6.9, Albumin 3.9, Amylase Level 27, Lipase 40 08/07/17 17:01: Glucometer 122H 08/07/17 20:14: Myoglobin 38.5, Troponin I < 0.30 08/07/17 21:02: Glucometer 203H 08/08/17 02:00: White Blood Count 11.2H, Red Blood Count 5.18, Hemoglobin 15.2, Hematocrit 46, Mean Corpuscular Volume 88, Mean Corpuscular Hemoglobin 29, Mean Corpuscular Hemoglobin Concent 33, Red Cell Distribution Width 13.4, Platelet Count 330, Mean Platelet Volume 9.8, Neutrophils (%) (Auto) 59, Lymphocytes (%) (Auto) 30, Monocytes (%) (Auto) 9, Eosinophils (%) (Auto) 2, Basophils (%) (Auto) 0, Neutrophils # (Auto) 6.6, Lymphocytes # (Auto) 3.3, Monocytes # (Auto) 1.0, Eosinophils # (Auto) 0.2, Basophils # (Auto) 0.1, Sodium Level 141, Potassium Level 3.9, Chloride Level 107, Carbon Dioxide Level 24, Anion Gap 10, Blood Urea Nitrogen 16, Creatinine 0.66, Estimat Glomerular Filtration Rate > 60, BUN/ Creatinine Ratio 24, Glucose Level 125H, Calcium Level 9.2, Total Bilirubin 0.4 , Aspartate Amino Transf (AST/SGOT) 19, Alanine Aminotransferase (ALT/SGPT) 21, Alkaline Phosphatase 101, Troponin I < 0.30, Total Protein 6.3L, Albumin 3.7, Triglycerides Level 151H, Cholesterol Level 193, LDL Cholesterol Direct 121, VLDL Cholesterol 30, HDL Cholesterol 44 08/08/17 04:58: Glucometer 132H ECG Impression ECG Initial ECG Rhythm: Normal Sinus Comment Sinus rhythm with anterior T-wave inversions noted. A/P-Cardiology Assessment/Admission Diagnosis Chest pain, Diabetes, Active smoking, Hyperlipidemia Plan Chest pain: Acute coronary syndrome ruled out with negative serial troponin. EKG shows sinus rhythm with T-wave inversions. Continue aspirin. Pharmacological nuclear stress test today. If abnormal will recommend coronary angiography. Diabetes: Continue outpatient medications. Defer to Dr. Trejo. Hyperlipidemia: Continue atorvastatin. Active smoking: Smoking cessation strongly recommended. Thank you for your consultation. Please call me if you have any questions. Amna Redmond MD, FACP, FACC, FSCAI, FHRS, CCDS Interventional Cardiology Cardiac Electrophysiology Vascular Medicine and Endovascular Interventions Clinical Quality Measures AMI/AHF: ASA po Prior to arrival: Yes DVT/VTE Risk/Contraindication: Risk Factor Score Per Nursin RFS Level Per Nursing on Admit: 4+=Very High Jennifer REDMOND MD Aug 08, 2017 09:59
[2017-08-08] MEDS ORDERED: REGADENOSON 0.4 MG/5 ML SYR (LEXISCAN) IV ONE ×2 (11:55→12:15)
[2017-08-08 12:02] VITALS: BP 145/86
[2017-08-08 12:19] VITALS: BP 146/88
--- NOTE | 2017-08-08 14:18 | Cardiology Stress Test Report ---
Stress Test Report Type of NM Stress Test: Test Type: LEXISCAN 0.4MG/5ML Date of Procedure/Referring: Date of Procedure: Aug 08, 2017 PCP Elma Trejo MD Admitting Physician Elma Trejo MD Indications: Chest pain Baseline Blood Pressure: Blood Pressure Systolic: 146 Blood Pressure Diastolic: 88 Baseline EKG: Baseline EKG: Sinus rhythm Summary: The patient was brought to the stress level off informed consent was taken. Stress test was performed according to the Lexiscan protocol. 0.4 mg of IV Lexiscan was given. Low-grade exercise was performed. Baseline EKG showed sinus rhythm at 78 BPM. Maximum heart rate was 108bpm. Initial blood pressure was 145/86mmhg. Maximum blood pressure was 154/101mmhg. Patient did not complain of any chest pain, arrhythmias or ST-T wave abnormalities during Lexiscan infusion. 10.37 mCi of Myoview was given for rest imaging and 31.5 mCi of Myoview was given for stress imaging. Transient ischemic dilatation score 1.04, normal LV function with no wall motion abnormalities. EF 57 percent. Normal perfusion imaging during rest and stress imaging. Conclusion: Pharmacological stress test negative for ischemia. Normal LV function with no wall motion abnormalities. Normal perfusion imaging on stress and rest. Copy Copies To 1: ELMA TREJO MD, M RIZWAN MD Aug 08, 2017 14:18
== END 2017-08-08 08:44 | disposition home or self-care (01) ==
LOC: EDUNIT# 12:13 → ER 12:14 → 4TH 13:54 → UNDOADMOB 13:54 → 4TH 14:55 → UNDODISOB 08-08 15:15
PROVIDERS: ADMIT Family Medicine; ATTEND Family Medicine
DX: R07.89 Other chest pain (principal); R10.11 Right upper quadrant pain; E11.9 Type 2 diabetes mellitus without complications; E78.5 Hyperlipidemia, unspecified; F17.290 Nicotine dependence, other tobacco product, uncomplicated; R00.2 Palpitations; J45.909 Unspecified asthma, uncomplicated; G43.909 Migraine, unspecified, not intractable, without status migrainosus; M19.91 Primary osteoarthritis, unspecified site; F41.9 Anxiety disorder, unspecified; F32.9 Major depressive disorder, single episode, unspecified; E66.9 Obesity, unspecified; Z68.41 Body mass index [BMI] 40.0-44.9, adult; Z82.49 Family history of ischemic heart disease and other diseases of the circulatory system; Z79.899 Other long term (current) drug therapy
CPT/HCPCS: 36415; 71045; 76705; 78452; 80053; 80061; 82150; 82962; 83690; 83735; 83874; 84484; 85025; 85379; 85610; 85730; 93005; 93017; 93041; 93306; G0378

== ENCOUNTER → 2017-09-13 | Outpatient (CLI) | payer OTHER ==
[~2017-09-13] MED LIST changes: +ASPI325T32 PO; +ATOR20TA66 PO; +HYDR-3816 PO; +TRAM50TA2 PO; +ZOLP10TA5 PO
--- NOTE | 2017-09-13 11:13 | Diagnostic Imaging Report ---
PROCEDURE: MRI left joint lower extremity without contrast. TECHNIQUE: Multiplanar, multisequence non contrast-enhanced MRI of the left lower extremity was accomplished. INDICATION: Stepped into the hole with injury to the left knee. FINDINGS: There is a moderate-sized joint effusion. There is tricompartmental degenerative change with joint space narrowing and marginal spurring. There is some edema identified in the medial tibial plateau. This could be reactive edema from degenerative changes versus a small bone bruise. No fracture is seen. The ACL and PCL are intact. The medial and lateral collateral ligament complexes are intact. The extensor mechanism is unremarkable. The lateral meniscus appears intact. There appears to be a tear involving the posterior horn of the medial meniscus, just medial to the meniscal root. No displaced meniscal fragment is seen. No other abnormalities are identified. IMPRESSION: 1. Moderate joint effusion and tricompartmental degenerative change with bone marrow edema involving the medial tibial plateau. 2. Findings suggestive of a posterior horn medial meniscus tear. No displaced meniscal fragment is seen. 3. No ligamentous tear is identified. Dictated by: Dictated on workstation # [id number]
== END ==
LOC: RAD 08:41
PROVIDERS: ATTEND Nurse Practitioner Family
DX: M25.462 Effusion, left knee (principal); M17.12 Unilateral primary osteoarthritis, left knee; W17.2XXA Fall into hole, initial encounter
CPT/HCPCS: 73721

== ENCOUNTER → 2018-07-23 | Outpatient (CLI) | payer OTHER ==
[~2018-07-23] MED LIST changes: +DULO30CA48; +ESCI20TA45; +FURO20TA4; +HYDR25TA4; +MELO7.5T46; +MIRT15TA6; +PANT40TA3; +PHEN37.53; +POTA10TA10; +SUCR1TAB36 PO
--- NOTE | 2018-07-23 08:26 | Diagnostic Imaging Report ---
PROCEDURE: US Gallbladder. TECHNIQUE: Multiple real-time grayscale images were obtained over the right upper quadrant in various projections. INDICATION: Right upper quadrant pain. FINDINGS: Liver measures 18.8 cm and demonstrates some increased echogenicity likely reflecting fatty infiltration. There is no biliary ductal dilatation. Common bile duct measures less than 6 mm. There is no cholelithiasis, sludge or pericholecystic fluid. There is mild gallbladder wall thickening up to 3.3 mm. The pancreas is obscured by bowel gas. Right kidney is normal. There is no ascites. Examination is technically difficult due to increased body habitus as well as some bowel gas. IMPRESSION: Gallbladder wall thickening up to 3.3 mm. Possibility of cholecystitis cannot be excluded. Recommend clinical correlation. Fatty infiltration of the liver. Dictated by: Dictated on workstation # [id number]
== END ==
LOC: RAD 07:03
PROVIDERS: ATTEND Nurse Practitioner Family
DX: K76.0 Fatty (change of) liver, not elsewhere classified (principal); K82.8 Other specified diseases of gallbladder
CPT/HCPCS: 76705

== ENCOUNTER 2018-07-24 22:42 | Emergency (ER) | payer OTHER ==
[~2018-07-24] VITALS: Ht 167.6 cm; Wt 109.3 kg
[~2018-07-24 22:42] MED LIST changes: -DULO30CA48; -ESCI20TA45; -FURO20TA4; -HYDR25TA4; -MELO7.5T46; -MIRT15TA6; -PANT40TA3; -PHEN37.53; -POTA10TA10; -SUCR1TAB36 PO
--- OUTSIDE RECORDS SUMMARY | 2018-07-24 22:51 | XMS REPORT | CCD ---
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 Name Role Phone PP Unavailable CCM Unavailable Summary Purpose Interface Exchange Insurance Providers Payer name Policy type / Coverage type Covered green party ID Effective Begin Date Effective End Date [facility] Commercial Insurance [id number] Unknown Family history Brother Diagnosis Age At [...] Description Effective Dates Tobacco history SNOMED CT: 8917609 Quit less than 5 years ago 04/02/2015 Alcohol history Unknown occasionally drinks alcohol 04/02/2015 Marital status Unknown Manuel Vitale 12/02/2014 Number of children Unknown 3 12/02/2014 Allergies, Adverse Reactions, Alerts Substance Reaction Codes Entered Date Inactivated Date Status * NO KNOWN FOOD ALLERGIES Unknown 12/02/2014 No Inactive Date Active Penicillin Unknown 12/02/2014 No Inactive Date Active tramadol RxNorm: 62663 12/02/2014 No Inactive Date Active Past Medical History Illness Codes Condition Status Onset Date Resolved Date Acute laryngopharyngitis ICD-9: 465.0 ICD-10: J06.0 Active 06/27/2017 Unknown Cough ICD-9: 786.2 ICD-10: R05 Active 07/17/2018 Unknown Other allergic rhinitis ICD-9: 477.8 ICD-10: J30.89 Active 06/27/2017 Unknown Right upper quadrant pain ICD-9: 789.01 ICD-10: R10.11 Active 04/24/2018 Unknown Generalized anxiety disorder ICD-9: 300.00 ICD-10: F41.1 Active 05/21/2017 Unknown Major depressive disorder, single episode, moderate ICD-9: 296.22 ICD-10: F32.1 Active 06/19/2018 Unknown Other insomnia ICD-9: 327.09 ICD-10: G47.09 Active 05/18/2016 Unknown Other chest pain ICD-9 : 786.59 ICD-10: R07.89 Active 04/24/2018 Unknown Essential (primary) hypertension ICD-9: 401.1 ICD-10: I10 Active 03/14/2018 Unknown Major depressive disorder, recurrent, mild ICD-9: 296.31 ICD-10: F33.0 Active 08/24/2016 Unknown Type 2 diabetes mellitus without complications ICD-9: 250.00 ICD-10: E11.9 Active 11/20/2017 Unknown Localized edema ICD-9 : 782.3 ICD-10: R60.0 Active 03/14/2018 Unknown Generalized anxiety disorder ICD-9: 300.02 ICD-10: F41.1 Active 08/24/2016 Unknown Other obesity due to excess calories ICD-9: 278.00 ICD-10: E66.09 Active 01/12/2016 Unknown Pain in left knee ICD- 9: 719.46 ICD-10: M25.562 Active 07/31/2017 Unknown Pain in right ankle and joints of right foot ICD-9: 719.47 ICD-10: M25.571 Active 12/04/2017 Unknown Pain in right foot ICD -9: 729.5 ICD-10: M79.671 Active 04/20/2017 Unknown Diabetes Unknown Active 11/20/2017 Unknown Encounter for follow-up examination after completed treatment for conditions other than malignant neoplasm ICD-9: V67.9 ICD-10: Z09 Active 08/14/2017 Unknown Essential (primary) hypertension ICD-9: 401.9 ICD-10: I10 Active 08/29/2015 Unknown Ganglion, left hand ICD-9: 727.43 ICD-10: M67.442 Active 05/29/2017 Unknown Generalized anxiety disorder ICD-9: 308.0 ICD-10: F41.1 Active 05/18/2016 Unknown Palpitations ICD-9: 785.1 ICD-10: R00.2 Active 08/15/2015 Unknown Encounter for immunization ICD-9: V03.82 ICD-10: Z23 Active 03/16/2017 Unknown VACCIN FOR INFLUENZA ICD-9: V04.81 ICD-10: Z23 Active 03/16/2017 Unknown Other skin changes ICD -9: 782.9 ICD-10: R23.8 Active 01/26/2017 Unknown Acute bronchitis due to other specified organisms ICD-9: 466.0 ICD-10: J20.8 Active 01/11/2017 Unknown Chronic pain syndrome ICD-9: 338.4 ICD-10: G89.4 Active 08/29/2015 Unknown Primary generalized (osteo)arthritis ICD-9: 715.09 ICD-10: M15.0 Active 07/14/2015 Unknown Hypertension Unknown Active 09/28/2016 Unknown Low back pain ICD-9: 724.2 ICD-10: [...] laryngopharyngitis ICD-9: 465.0 ICD-10: J06.0 06/27/2017 Active Cough ICD-9: 786.2 ICD-10: R05 07/17/2018 Active Other allergic rhinitis ICD-9: 477.8 ICD-10: J30.89 06/27/2017 Active Right upper quadrant pain ICD-9: 789.01 ICD-10: R10.11 04/24/2018 Active Generalized anxiety disorder ICD-9: 300.00 ICD-10: F41.1 05/21/2017 Active Major depressive disorder, single episode, moderate ICD-9: 296.22 ICD-10: F32.1 06/19/2018 Active Other insomnia ICD-9: 327.09 ICD-10: G47.09 05/18/2016 Active Other chest pain ICD-9 : 786.59 ICD-10: R07.89 04/24/2018 Active Essential (primary) hypertension ICD-9: 401.1 ICD-10: I10 03/14/2018 Active Major depressive disorder, recurrent, mild ICD-9: 296.31 ICD-10: F33.0 08/24/2016 Active Type 2 diabetes mellitus without complications ICD-9: 250.00 ICD-10: E11.9 11/20/2017 Active Localized edema ICD-9 : 782.3 ICD-10: R60.0 03/14/2018 Active Generalized anxiety disorder ICD-9: 300.02 ICD-10: F41.1 08/24/2016 Active Other obesity due to excess calories ICD-9: 278.00 ICD-10: E66.09 01/12/2016 Active Pain in left knee ICD- 9: 719.46 ICD-10: M25.562 07/31/2017 Active Pain in right ankle and joints of right foot ICD-9: 719.47 ICD-10: M25.571 12/04/2017 Active Pain in right foot ICD -9: 729.5 ICD-10: M79.671 04/20/2017 Active Diabetes Unknown 11/20/2017 Active Encounter for follow-up examination after completed treatment for conditions other than malignant neoplasm ICD-9: V67.9 ICD-10: Z09 08/14/2017 Active Essential (primary) hypertension ICD-9: 401.9 ICD-10: I10 08/29/2015 Active Ganglion, left hand ICD-9: 727.43 ICD-10: M67.442 05/29/2017 Active Generalized anxiety disorder ICD-9: 308.0 ICD-10: F41.1 05/18/2016 Active Palpitations ICD-9: 785.1 ICD-10: R00.2 08/15/2015 Active Encounter for immunization ICD-9: V03.82 ICD-10: Z23 03/16/2017 Active VACCIN FOR INFLUENZA ICD-9: V04.81 ICD-10: Z23 03/16/2017 Active Other skin changes ICD -9: 782.9 ICD-10: R23.8 01/26/2017 Active Acute bronchitis due to other specified organisms ICD-9: 466.0 ICD-10: J20.8 01/11/2017 Active Chronic pain syndrome ICD-9: 338.4 ICD-10: G89.4 08/29/2015 Active Primary generalized (osteo)arthritis ICD-9: 715.09 ICD-10: M15.0 07/14/2015 Active Hypertension Unknown 09/28/2016 Active Low back pain ICD-9: 724.2 ICD-10: [...] Start Date Stop Date Status Fill Instructions prednisone 20 mg tablet RxNorm: 876703 Tablet(s) PO 07/17/2018 No Stop Date Active 20mg tonight then starting tomorrow: 60,60,40,40,20,20,10,10 Remeron 15 mg tablet RxNorm: 887584 1/2 Tablet(s) PO QHS 201807/11/2019 Active Tamiflu 75 mg capsule RxNorm: 334950 1 Capsule(s) PO BID 201807/21/2018 Inactive Kenalog 40 mg/mL suspension for injection RxNorm: 5171522 Milliliter(s) Inj 07/17/2018 07/17/2018 Inactive Lexapro 20 mg tablet RxNorm: 315705 1 TABLET(S) PO DAILY 201811/11/2018 Active potassium chloride ER 10 mEq tablet,extended release RxNorm: 151928 1 Tablet(s) PO daily as needed to take when you take the lasix 201808/02/2018 Active Lasix 20 mg tablet RxNorm: 260075 1 Tablet(s) PO daily as needed edema 07/04/2018 08/02/2018 Active Cymbalta 30 mg capsule,delayed release RxNorm: 194468 1 CAPSULE(S) PO DAILY TO BE TAKEN WITH 60MG TO=90MG 07/01/20182018 Inactive hydrochlorothiazide 25 mg tablet RxNorm: 472105 1 TABLET(S) PO DAILY 06/27/2018 09/24/2018 Active Remeron 15 mg tablet RxNorm: 064151 1/2 Tablet(s) PO QHS 201807/16/2018 Inactive Lasix 20 mg tablet RxNorm: 344368 1 Tablet(s) PO daily 201806/21/2018 Inactive potassium chloride ER 10 mEq tablet,extended release RxNorm: 238436 1 Tablet(s) PO daily 06/19/2018 07/03/2018 Inactive Lexapro 20 mg tablet RxNorm: 088426 1 Tablet(s) PO daily 201807/14/2018 Inactive gabapentin 300 mg capsule RxNorm: 956033 1 CAPSULE(S) PO TID 08/12/2018 Active Ambien 10 mg tablet RxNorm: 129713 1 Tablet(s) PO QHS as needed insomnia 06/10/2018 09/07/2018 Active Cymbalta 30 mg capsule,delayed release RxNorm: 905420 1 Capsule(s) PO daily 06/03/2018 06/02/2018 Inactive Cymbalta 30 mg capsule,delayed release RxNorm: 087676 1 Capsule(s) PO daily to be taken with 60mg to=90mg 06/03/20182018 Inactive Protonix 40 mg tablet,delayed release RxNorm: 828090 1 TABLET(S) PO DAILY 05/20/2018 09/16/2018 Active gabapentin 300 mg capsule RxNorm: 677612 1 CAPSULE(S) PO TID 06/13/2018 Inactive Protonix 40 mg tablet,delayed release RxNorm: 699864 1 Tablet(s) PO daily 04/24/2018 05/19/2018 Inactive Zorvolex 35 mg capsule RxNorm: 9315095 TAKE 1 CAPSULE BY MOUTH THREE (3) TIMES DAILY 04/22/2018 08/19/2018 Active hydrochlorothiazide 25 mg tablet RxNorm: 867408 1 TABLET(S) PO DAILY 04/08/2018 06/26/2018 Inactive Zorvolex 35 mg capsule RxNorm: 4038811 TAKE 1 CAPSULE BY MOUTH THREE (3) TIMES DAILY 03/27/2018 04/21/2018 Inactive gabapentin 300 mg capsule RxNorm: 259239 1 CAPSULE(S) PO TID 04/14/2018 Inactive hydrochlorothiazide 25 mg tablet RxNorm: 604085 1 Tablet(s) PO daily 03/14/2018 04/07/2018 Inactive Victoza 2-Marek 0.6 mg/0.1 mL (18 mg/3 mL) subcutaneous pen injector RxNorm: 647455 Milligram(s) INJECT 1.8 MG SUB-Q ONCE DAILY 02/27/2018 08/20/2019 Active qty sufficient Xanax 1 mg tablet RxNorm: 718939 1-2 Tablet(s) PO QHS as needed insomnia 02/27/2018 05/27/2018 Inactive atorvastatin 20 mg tablet RxNorm: 821499 1 Tablet(s) PO daily 02/27/2018 05/22/2019 Active Cymbalta 60 mg capsule,delayed release RxNorm: 393063 TAKE 1 CAPSULE BY MOUTH DAILY 02/27/2018 02/26/2018 Inactive Cymbalta 60 mg capsule,delayed release RxNorm: 558120 1 Capsule(s) PO daily TAKE 1 CAPSULE BY MOUTH DAILY 02/27/20182018 Inactive gabapentin 300 mg capsule RxNorm: 779538 1 Capsule(s) PO TID 03/24/2018 Inactive meloxicam 7.5 mg tablet RxNorm: 769902 1 Tablet(s) PO daily 1 TABLET(S) PO DAILY 02/27/2018 04/14/2018 Inactive Ambien 10 mg tablet RxNorm: 025538 1 Tablet(s) PO QHS as needed insomnia 02/27/2018 05/25/2018 Inactive atorvastatin 20 mg tablet RxNorm: 945423 1 Tablet(s) PO daily 02/05/2018 02/26/2018 Inactive atorvastatin 20 mg tablet RxNorm: 838040 1 Tablet(s) PO daily 02/05/2018 02/04/2018 Inactive meloxicam 7.5 mg tablet RxNorm: 411191 1 TABLET(S) PO DAILY 02/26/2018 Inactive oxycodone 15 mg tablet RxNorm: 5960921 1 Tablet(s) PO QID as needed 01/07/2018 02/19/2018 Inactive lactulose 20 gram/30 mL oral solution RxNorm: 577627 15-30 Milliliter(s) PO BID as needed 12/31/2017 02/20/2018 Inactive meloxicam 7.5 mg tablet RxNorm: 154126 1 TABLET(S) PO DAILY 06/201701/31/2018 Inactive Zorvolex 35 mg capsule RxNorm: 3312117 1 Capsule(s) PO TID 06/201702/20/2018 Inactive Ambien 10 mg tablet RxNorm: 320155 1 Tablet(s) PO QHS as needed insomnia 12/04/2017 02/26/2018 Inactive oxycodone 15 mg tablet RxNorm: 1408619 1 Tablet(s) PO QID as needed 12/04/2017 01/06/2018 Inactive prednisone 20 mg tablet RxNorm: 459891 2 Tablet(s) PO daily 12/08/2017 Inactive Victoza 2-Marek 0.6 mg/0.1 mL (18 mg/3 mL) subcutaneous pen injector RxNorm: 758183 Milligram(s) INJECT 1.8 MG SUB-Q ONCE DAILY 11/20/2017 02/26/2018 Inactive meloxicam 7.5 mg tablet RxNorm: 203930 1 Tablet(s) PO daily 02/201812/12/2017 Inactive phentermine 37.5 mg tablet RxNorm: 133760 1 Tablet(s) PO daily 11/20/2017 12/19/2017 Inactive Ambien 10 mg tablet RxNorm: 942601 1 Tablet(s) PO QHS as needed insomnia 11/20/2017 12/18/2017 Inactive Xanax 1 mg tablet RxNorm: 712282 1.5 Tablet(s) PO QHS as needed insomnia 11/20/2017 02/26/2018 Inactive hydrocodone 7.5 mg-acetaminophen 325 mg tablet RxNorm: 919915 1 Tablet(s) PO TID as needed 11/16/2017 01/06/2018 Inactive Cymbalta 60 mg capsule,delayed release RxNorm: 389739 TAKE 1 CAPSULE BY MOUTH DAILY 11/02/2017 02/26/2018 Inactive Xanax 1 mg tablet RxNorm: 570246 1 Tablet(s) PO BID PRN as needed anxiety 10/04/2017 11/19/2017 Inactive Victoza 2-Marek 0.6 mg/0.1 mL (18 mg/3 mL) subcutaneous pen injector RxNorm: 615995 INJECT 1.8 MG SUB-Q ONCE DAILY 10/04/2017 11/19/2017 Inactive hydrocodone 7.5 mg-acetaminophen 325 mg tablet RxNorm: 964547 1 Tablet(s) PO TID as needed 09/17/2017 11/15/2017 Inactive hydrocodone 7.5 mg-acetaminophen 325 mg tablet RxNorm: 910536 1 Tablet(s) PO TID as needed 09/10/2017 09/16/2017 Inactive prednisone 10 mg tablet RxNorm: 344811 Tablet(s) PO 09/10/2017 11/13/2017 Inactive 6, 5,4,3,2,1 Zorvolex 35 mg capsule RxNorm: 8058773 1 Capsule(s) PO TID 11/13/2017 Inactive Ambien 10 mg tablet RxNorm: 606349 1 Tablet(s) PO QHS as needed insomnia 08/29/2017 11/19/2017 Inactive Zorvolex 35 mg capsule RxNorm: 7354968 1 Capsule(s) PO TID 09/06/2017 Inactive Zorvolex 35 mg capsule RxNorm: 1249718 1 Capsule(s) PO TID 06/201708/27/2017 Inactive Zorvolex 35 mg capsule RxNorm: 8558131 1 Capsule(s) PO TID 06/201708/12/2017 Inactive prednisone 20 mg tablet RxNorm: 416549 2 Tablet(s) PO daily 08/04/2017 Inactive hydrocodone 7.5 mg-acetaminophen 325 mg tablet RxNorm: 212745 1 Tablet(s) PO TID as needed 07/31/2017 09/09/2017 Inactive Zorvolex 35 mg capsule RxNorm: 6716753 1 Capsule(s) PO TID as needed 07/31/2017 11/13/2017 Inactive ceftriaxone 500 mg solution for injection RxNorm: 3822169 1 Milliliter(s) Inj 06/27/2017 06/27/2017 Inactive Keflex 500 mg capsule RxNorm: 910929 1 Capsule(s) PO TID 201707/03/2017 Inactive Ambien 10 mg tablet RxNorm: 995497 1 Tablet(s) PO daily 201708/25/2017 Inactive tramadol 50 mg tablet RxNorm: 780193 1 Tablet(s) PO TID as needed 05/29/2017 07/27/2017 Inactive Xanax 1 mg tablet RxNorm: 357050 1 Tablet(s) PO BID PRN as needed anxiety 05/21/2017 10/03/2017 Inactive alprazolam 1 mg tablet RxNorm: 577713 1 Tablet(s) PO BID as needed 05/21/2017 06/19/2017 Inactive Celebrex 200 mg capsule RxNorm: 112555 1 CAPSULE(S) PO BID 11/05/2017 Inactive prednisone 20 mg tablet RxNorm: 590808 2 Tablet(s) PO daily 12/201604/24/2017 Inactive Ambien 10 mg tablet RxNorm: 932150 Tablet(s) PO 04/20/2017 05/28/2017 Inactive hydrocodone 5 mg-acetaminophen 325 mg tablet RxNorm: 282985 1 Tablet(s) PO QID as needed 04/20/2017 08/01/2017 Inactive Cymbalta 60 mg capsule,delayed release RxNorm: 773186 1 Capsule(s) PO daily 04/20/2017 02/26/2018 Inactive Victoza 2-Marek 0.6 mg/0.1 mL (18 mg/3 mL) subcutaneous pen injector RxNorm: 632984 INJECT 1.8 MG SUB-Q ONCE DAILY 03/26/2017 09/21/2017 Inactive diazepam 2 mg tablet RxNorm: 892335 1 Tablet(s) PO QHS as needed insomnia 01/28/2017 05/07/2017 Inactive Victoza 2-Marek 0.6 mg/0.1 mL (18 mg/3 mL) subcutaneous pen injector RxNorm: 477689 1.8 Milligram(s) SQ daily 01/26/201703/25 Inactive dispense quantity sufficient Tussionex Pennkinetic ER 10 mg-8 mg/5 mL suspension, extended release RxNorm: 3629361 5 Milliliter(s) PO BID 01/11/2017 01/15/2017 Inactive Xanax 1 mg tablet RxNorm: 848952 1 Tablet(s) PO BID PRN as needed anxiety 01/11/2017 05/20/2017 Inactive Zithromax Z-Marek 250 mg tablet RxNorm: 816827 1 Tablet(s) PO UD 01/11/2017 01/15/2017 Inactive zpack albuterol sulfate 2.5 mg/3 mL (0.083 %) solution for nebulization RxNorm: 123754 3 Milliliter(s) INH UD 01/11/201707/2017 Inactive prednisone 20 mg tablet RxNorm: 785650 2 Tablet(s) PO daily 01/15/2017 Inactive Kenalog 40 mg/mL suspension for injection RxNorm: 3543964 1.5 Milliliter(s) Inj 01/11/2017 01/11/2017 Inactive Celebrex 200 mg capsule RxNorm: 326876 1 Capsule(s) PO BID 02/27/2017 Inactive Ambien 5 mg tablet RxNorm: 900834 1 Tablet(s) PO HS PRN 11/3008/07/2017 Inactive trazodone 50 mg tablet RxNorm: 687812 1/2 to 1 Tablet(s) PO QHS 10/13/2016 10/12/2016 Inactive trazodone 50 mg tablet RxNorm: 631503 1/2 to 1 Tablet(s) PO QHS 10/13/2016 11/29/2016 Inactive Belsomra 10 mg tablet RxNorm: 7100072 1 Tablet(s) PO QHS 201611/29/2016 Inactive may increase to 20mg if 10mg not effective Cymbalta 60 mg capsule,delayed release RxNorm: 781565 1 Capsule(s) PO daily 08/24/2016 03/21/2017 Inactive Xanax 1 mg tablet RxNorm: 202873 1 Tablet(s) PO BID PRN as needed anxiety 08/24/2016 01/10/2017 Inactive Victoza 2-Marek 0.6 mg/0.1 mL (18 mg/3 mL) subcutaneous pen injector RxNorm: 621412 Milligram(s) SQ 08/24/2016 08/23/2016 Inactive Victoza 2-Marek 0.6 mg/0.1 mL (18 mg/3 mL) subcutaneous pen injector RxNorm: 442181 1.8 Milligram(s) SQ 08/24/2016 01/25/2017 Inactive Vitamin D2 50,000 unit capsule RxNorm: 046986 1 Capsule(s) PO QW 07/13/2016 10/10/2016 Inactive Cymbalta 30 mg capsule,delayed release RxNorm: 526644 1 Capsule(s) PO daily 07/13/2016 08/23/2016 Inactive Belviq XR 20 mg tablet,extended release RxNorm: 2775821 1 Tablet(s) PO daily 05/30/2016 05/29/2016 Inactive prednisone 20 mg tablet RxNorm: 988378 2 Tablet(s) PO daily 06/03/2016 Inactive prednisone 20 mg tablet RxNorm: 038199 2 Tablet(s) PO daily 05/29/2016 Inactive Belviq XR 20 mg tablet,extended release RxNorm: 6981425 1 Tablet(s) PO daily 05/30/2016 06/28/2016 Inactive cyclobenzaprine 5 mg tablet RxNorm: 565764 1-2 Tablet(s) PO TID as needed 05/19/2016 05/23/2016 Inactive metoprolol succinate ER 25 mg tablet,extended release 24 hr RxNorm: 430466 1 Tablet(s) PO QPM 04/10/2016 04/13/2016 Inactive metoprolol succinate ER 25 mg tablet,extended release 24 hr RxNorm: 538829 1 Tablet(s) PO QPM 04/10/2016 04/09/2016 Inactive escitalopram 10 mg tablet RxNorm: 331860 1 Tablet(s) PO daily 03/16/2016 07/12/2016 Inactive estradiol 1 mg tablet RxNorm: 619472 1 Tablet(s) PO every other day 03/16/2016 05/15/2016 Inactive Kenalog 40 mg/mL suspension for injection RxNorm: 7946033 Milliliter(s) Inj 02/28/2016 02/28/2016 Inactive Zithromax Z-Marek 250 mg tablet RxNorm: 320170 1 Tablet(s) PO UD 02/28/2016 03/03/2016 Inactive zpack Lexapro 10 mg tablet RxNorm: 466026 1 Tablet(s) PO daily 201502/27/2016 Inactive Lexapro 10 mg tablet RxNorm: 587152 1 Tablet(s) PO daily 201509/26/2015 Inactive Vimovo 500 mg-20 mg tablet,immediate and delay release RxNorm: 554597 1 Tablet(s) PO BID as needed for pain 08/30/201509/25 Inactive azithromycin 250 mg tablet RxNorm: 293559 1 Tablet(s) PO UD 2 pills on day #1, then one pill daily x 4 days 07/15/2015 Inactive hydrocodone 10 mg-acetaminophen 325 mg tablet RxNorm: 003778 1 Tablet(s) PO QID 06/16/2015 01/12/2016 Inactive pramipexole 0.5 mg tablet RxNorm: 921028 1 Tablet(s) PO QPM 07/201507/14/2015 Inactive Celebrex 200 mg capsule RxNorm: 518858 1 Capsule(s) PO daily 05/02/2015 Inactive Celebrex 200 mg capsule RxNorm: 354315 1 Capsule(s) PO daily 01/12/2016 Inactive hydrocodone 7.5 mg-acetaminophen 325 mg tablet RxNorm: 223758 1 Tablet(s) PO Q6 PRN 05/03/2015 06/15/2015 Inactive Mobic 15 mg tablet RxNorm: 572147 1 Tablet(s) PO daily 201405/02/2015 Inactive hydrocodone 7.5 mg-acetaminophen 325 mg tablet RxNorm: 286622 1 Tablet(s) PO Q6 PRN 04/02/2015 05/02/2015 Inactive hydrocodone 5 mg-acetaminophen 325 mg tablet RxNorm: 279279 1 Tablet(s) PO Q6 as needed 12/11/2014 04/01/2015 Inactive Pennsaid 1.5 % topical drops RxNorm: 536007 40 Drop(s) TOP QID as needed 12/07/2014 02/04/2015 Inactive Apply 40 drops to each knee joint 4 times per day as needed for osteoarthritis pain estradiol 1 mg tablet RxNorm: 823536 1 Tablet(s) PO QHS No Start Date 03/15/2016 Inactive Xanax 0.5 mg tablet RxNorm: 390059 1 Tablet(s) PO Q6 as needed anxiety No Start Date 08/23/2016 Inactive Tylenol Extra Strength 500 mg tablet RxNorm: 744942 3 Tablet(s) PO BID after breakfast and after lunch No Start Date Inactive lactulose 20 gram/30 mL oral solution RxNorm: 717589 15-30 Milliliter(s) PO BID as needed No Start Date 12/30/2017 Inactive hydrocodone 5 mg-acetaminophen 325 mg tablet RxNorm: 864976 1 Tablet(s) PO Q6 as needed No Start Date 12/10/2014 Inactive Phenergan-Codeine syrup RxNorm: 5-10 Milliliter(s) PO QID as needed No Start Date 11/13/2017 Inactive ibuprofen 200 mg capsule RxNorm: 612882 4 Capsule(s) PO QID as needed No Start Date 04/01/2015 Inactive Medication Administered Medication Codes Instructions Start Date Status Kenalog 40 mg/mL suspension for injection RxNorm: 5434953 Milliliter 07/17/2018 No longer Active ceftriaxone 500 mg solution for injection RxNorm: 9048457 1Milliliter 06/27/2017 No longer Active Kenalog 40 mg/mL suspension for injection RxNorm: 1474838 1.5Milliliter 01/11/2017 No longer Active Kenalog 40 mg/mL suspension for injection RxNorm: 3833632 Milliliter 02/28/2016 No longer Active Immunizations Vaccine Codes Date Status Influenza CVX: 141 03/16/2017 completed Pneumococcal (Adult) CVX: 33 03/16/2017 completed Assessments Condition Codes Effective Dates Acute laryngopharyngitis ICD-10: J06.0 ICD-9: 465.0 07/17/2018 Other allergic rhinitis ICD-10: J30.89 ICD-9: 477.8 07/17/2018 Cough ICD-10: R05 ICD-9: 786.2 07/17/2018 Right upper quadrant pain ICD-10: R10.11 ICD-9: 789.01 07/17/2018 Generalized anxiety disorder ICD-10: F41.1 ICD-9: 300.00 07/04/2018 Major depressive disorder, single episode, moderate ICD-10: F32.1 ICD-9: 296.22 07/04/2018 Other insomnia ICD-10: G47.09 ICD-9: 327.09 06/19/2018 Other chest pain ICD-10: R07.89 ICD-9: 786.59 04/24/2018 Type 2 diabetes mellitus without complications ICD-10: E11.9 ICD-9: 250.00 04/17/2018 Essential (primary) hypertension ICD-10: I10 ICD-9: 401.1 04/17/2018 Major depressive disorder, recurrent, mild ICD-10: F33.0 ICD-9: 296.31 04/17/2018 Localized edema ICD-10: R60.0 ICD-9: 782.3 03/14/2018 Generalized anxiety disorder ICD-10: F41.1 ICD-9: 300.02 02/27/2018 Pain in left knee ICD-10: M25.562 ICD-9: 719.46 02/27/2018 Other obesity due to excess calories ICD-10: E66.09 ICD-9: 278.00 02/27/2018 Pain in right ankle and joints of right foot ICD-10: M25.571 ICD-9: 719.47 12/04/2017 Pain in right foot ICD-10: M79.671 ICD-9: 729.5 12/04/2017 Encounter for follow-up examination after completed treatment for conditions other than malignant neoplasm ICD-10: Z09 ICD-9: V67.9 08/14/2017 Ganglion, left hand ICD-10: M67.442 ICD-9: 727.43 05/29/2017 Essential (primary) hypertension ICD-10: I10 ICD-9: 401.9 05/29/2017 Generalized anxiety disorder ICD-10: F41.1 ICD-9: 308.0 05/29/2017 Palpitations ICD-10: R00.2 ICD-9: 785.1 05/21/2017 Encounter for immunization ICD-10: Z23 ICD-9: V03.82 03/16/2017 VACCIN FOR INFLUENZA ICD-10: Z23 ICD-9: V04.81 03/16/2017 Other skin changes ICD-10: R23.8 ICD-9: 782.9 01/26/2017 Acute bronchitis due to other specified organisms ICD-10: J20.8 ICD-9: 466.0 01/11/2017 Primary generalized (osteo)arthritis ICD-10: M15.0 ICD-9: 715.09 11/30/2016 Low back pain ICD-10: M54.5 ICD-9: 724.2 [...] Visit Reason For Visit Effective Dates Notes sinus congestion 07/17/2018 medication follow up 07/04/2018 insomnia 06/19/2018 chest pain/pressure 04/24/2018 medication follow up 04/17/2018 edema 03/14/2018 weight gain/obesity 02/27/2018 foot pain 12/04/2017 knee pain 11/20/2017 knee pain 09/10/2017 Hospital Follow Up 08/14/2017 knee pain 07/31/2017 sore throat 06/27/2017 hypertension 05/29/2017 hypertension 05/21/2017 [...] Observation Code Item Item Code Result Date Influenza A+B Kjo577 Influ A+B Pos Influenza A 07/17/2018 %Hba1C Tqh590 % HbA1c 10966-4 6.7 % 11/20/2017 %Hba1C Icw719 Gluc Ave 146 mg/dL 11/20/2017 Free T4 Hmi965 FREE T4 0.76 ng/dL 05/21/2017 Tsh Ord6 hTSH II 1.27 uIU/mL 05/21/2017 Comp Metabolic Gda963 NA 140 mEq/L 05/21/2017 Comp Metabolic Csp509 K 3.9 mEq/L 05/21/2017 Comp Metabolic Spg617 CL 101 mEq/L 05/21/2017 Comp Metabolic Qod566 CO2 28.0 mEq/L 05/21/2017 Comp Metabolic Oho303 ANION GAP 15 05/21/2017 Comp Metabolic Pwi978 GLUCOSE 155 mg/dL 05/21/2017 Comp Metabolic Xwh989 Creat 0.7 mg/dL 05/21/2017 Comp Metabolic Eie125 eGFR 87 ml/min/1.73m2 05/21/2017 Comp Metabolic Jwk432 BUN 16 mg/dL 05/21/2017 Comp Metabolic Ngx346 B/C Ratio 21.6 Ratio 05/21/2017 Comp Metabolic Qis993 CALCIUM 9.4 mg/dL 05/21/2017 Comp Metabolic Ubr395 ALK PHOS 132 U/L 05/21/2017 Comp Metabolic Ken921 AST(SGOT) 16 U/L 05/21/2017 Comp Metabolic Lmn466 ALT(SGPT) 20 U/L 05/21/2017 Comp Metabolic Eny014 BILI T 0.4 mg/dL 05/21/2017 Comp Metabolic Lcd928 ALBUMIN 4.0 g/dL 05/21/2017 Comp Metabolic Zvu341 TPRO 6.7 g/dL 05/21/2017 Comp Metabolic Vgj933 GLOB 2.7 g/dL 05/21/2017 Comp Metabolic Fci732 A/G Ratio 1.5 Ratio 05/21/2017 Comp Metabolic Kif550 Osmo 284 mOsmo 05/21/2017 Cbc With Differential [...] 18.8 % 05/21/2017 Cbc With Differential Ord2 MCH 28.9 pg 05/21/2017 Cbc With Differential Ord2 Greer% 5.5 % 05/21/2017 Cbc With Differential Ord2 MCHC 33.0 pg 05/21/2017 Cbc With Differential Ord2 Eos% 0.6 % 05/21/2017 Cbc With Differential Ord2 PLT 357 K/ul 05/21/2017 Cbc With Differential Ord2 Baso% 0.2 % 05/21/2017 Cbc With Differential Ord2 RDW 14.0 % 05/21/2017 Cbc With Differential Ord2 Neut ABS# 10.59 K/ul 05/21/2017 Cbc With Differential Ord2 Lymph ABS# 2.65 K/ul 05/21/2017 Cbc With Differential Ord2 Greer ABS# 0.8 K/ul 05/21/2017 Cbc With Differential Ord2 Eos ABS# 0.1 K/ul 05/21/2017 Cbc With Differential Ord2 Baso ABS# 0.0 K/ul 05/21/2017 Estrogens Total [id number] ESTROGENS, TOTAL 54 pg/mL 05/24/2016 Magnesium Ord90 Mag 1.8 mg/dL 05/19/2016 Tsh Ord6 hTSH II 1.56 uIU/mL 05/19/2016 Progesterone Prog 0.03 ng/mL 05/19/2016 Comp Metabolic Qnb266 NA 136 mEq/L 05/19/2016 Comp Metabolic Ffs422 K 4.3 mEq/L 05/19/2016 Comp Metabolic Wog334 CL 100 mEq/L 05/19/2016 Comp Metabolic Sdf259 CO2 28.0 mEq/L 05/19/2016 Comp Metabolic Ojg110 ANION GAP 12 05/19/2016 Comp Metabolic Pqr567 GLUCOSE 138 mg/dL 05/19/2016 Comp Metabolic Plw817 Creat 0.7 mg/dL 05/19/2016 Comp Metabolic Jbd343 eGFR 89 ml/min/1.73m2 05/19/2016 Comp Metabolic Vux462 BUN 15 mg/dL 05/19/2016 Comp Metabolic Kgi552 B/C Ratio 20.5 Ratio 05/19/2016 Comp Metabolic Ete474 CALCIUM 9.7 mg/dL 05/19/2016 Comp Metabolic Sou211 ALK PHOS 106 U/L 05/19/2016 Comp Metabolic Nvy858 AST(SGOT) 21 U/L 05/19/2016 Comp Metabolic Pvz886 ALT(SGPT) 24 U/L 05/19/2016 Comp Metabolic Mwe141 BILI T 0.4 mg/dL 05/19/2016 Comp Metabolic Anq221 ALBUMIN 4.1 g/dL 05/19/2016 Comp Metabolic Yfy833 TPRO 7.1 g/dL 05/19/2016 Comp Metabolic Cvp688 GLOB 3.0 g/dL 05/19/2016 Comp Metabolic Uyo104 A/G Ratio 1.4 Ratio 05/19/2016 Comp Metabolic Cmo780 Osmo 275 mOsmo 05/19/2016 Cbc With Differential Ord2 WBC 8.76 K/ul 05/19/2016 Cbc With Differential Ord2 RBC 4.98 M/ul 05/19/2016 Cbc With Differential Ord2 HGB 14.2 g/dl 05/19/2016 Cbc With Differential Ord2 HCT 43.1 % 05/19/2016 Cbc With Differential Ord2 Neut% 65.9 % 05/19/2016 Cbc With Differential Ord2 MCV 86.5 fl 05/19/2016 Cbc With Differential Ord2 Lymph% 26.6 % 05/19/2016 Cbc With Differential Ord2 MCH 28.5 pg 05/19/2016 Cbc With Differential Ord2 Greer% 6.5 % 05/19/2016 Cbc With Differential Ord2 MCHC [...] 2.33 K/ul 05/19/2016 Cbc With Differential Ord2 Greer ABS# 0.6 K/ul 05/19/2016 Cbc With Differential Ord2 Eos ABS# 0.1 K/ul 05/19/2016 Cbc With Differential Ord2 Baso ABS# 0.0 K/ul 05/19/2016 C RAP A SC [id number] Strep A Negative 02/28/2016 Tsh Ord6 hTSH [...] 26.2 pg 08/16/2015 Cbc With Differential Ord2 Greer% 7.1 % 08/16/2015 Cbc With Differential Ord2 MCHC 32.3 pg 08/16/2015 Cbc With Differential Ord2 Eos% 0.9 % 08/16/2015 Cbc With Differential Ord2 PLT 369 K/ul 08/16/2015 Cbc With Differential Ord2 Baso% 0.3 % 08/16/2015 Cbc With Differential Ord2 RDW 15.3 % 08/16/2015 Cbc With Differential Ord2 Neut ABS# 5.95 K/ul 08/16/2015 Cbc With Differential Ord2 Lymph ABS# 2.32 K/ul 08/16/2015 Cbc With Differential Ord2 Greer ABS# 0.6 K/ul 08/16/2015 Cbc With Differential Ord2 Eos ABS# 0.1 K/ul 08/16/2015 Cbc With Differential Ord2 Baso ABS# 0.0 K/ul 08/16/2015 Cbc With Differential Ord2 New Analyzer Notice Please note new ref ranges starting 05-26-2015 due to implemntation of new five part differential hematolgy analyzer. 08/16/2015 Comp Metabolic Xyz410 NA 132 mEq/L 08/16/2015 Comp Metabolic Zpb130 K 3.6 mEq/L 08/16/2015 Comp Metabolic Pde020 CL 99 mEq/L 08/16/2015 Comp Metabolic Uhj206 CO2 23.0 mEq/L 08/16/2015 Comp Metabolic Jgd053 ANION GAP 14 08/16/2015 Comp Metabolic Qiy941 GLUCOSE 101 mg/dL 08/16/2015 Comp Metabolic Bup430 Creat 0.7 mg/dL 08/16/2015 Comp Metabolic Ion890 eGFR 100 ml/min/1.73m2 08/16/2015 Comp Metabolic Pma869 BUN 10 mg/dL 08/16/2015 Comp Metabolic Giz852 B/C Ratio 15.2 Ratio 08/16/2015 Comp Metabolic Nva098 CALCIUM 9.3 mg/dL 08/16/2015 Comp Metabolic Cgo007 ALK PHOS 100 U/L 08/16/2015 Comp Metabolic Kdw393 AST(SGOT) 14 U/L 08/16/2015 Comp Metabolic Qfz547 ALT(SGPT) 11 U/L 08/16/2015 Comp Metabolic Flr481 BILI T 0.3 mg/dL 08/16/2015 Comp Metabolic Fjd935 ALBUMIN 3.9 g/dL 08/16/2015 Comp Metabolic Bwl150 TPRO 7.1 g/dL 08/16/2015 Comp Metabolic Tvm029 GLOB 3.2 g/dL 08/16/2015 Comp Metabolic Cab104 A/G Ratio 1.2 Ratio 08/16/2015 Comp Metabolic Qyn974 Osmo 264 mOsmo 08/16/2015 Lipid Ord30 CHOL 209 mg/dL 12/03/2014 Lipid Ord30 HDL 42.0 mg/dl 12/03/2014 Lipid Ord30 TRIG 219 mg/dL 12/03/2014 Lipid Ord30 LDL 123 mg/dL 12/03/2014 Lipid Ord30 C/HDL 5.0 Ratio 12/03/2014 Comp Metabolic Cjf699 NA 132 mEq/L 12/03/2014 Comp Metabolic Fze305 K 4.0 mEq/L 12/03/2014 Comp Metabolic Oje938 CL 101 mEq/L 12/03/2014 Comp Metabolic Oio245 CO2 22.0 mEq/L 12/03/2014 Comp Metabolic Ils169 ANION GAP 13 12/03/2014 Comp Metabolic Bgr370 GLUCOSE 123 mg/dL 12/03/2014 Comp Metabolic Zgk173 Creat 0.7 mg/dL 12/03/2014 Comp Metabolic Yur845 eGFR 97 ml/min/1.73m2 12/03/2014 Comp Metabolic Lsh877 BUN 10 mg/dL 12/03/2014 Comp Metabolic Pdx581 B/C Ratio 14.7 Ratio 12/03/2014 Comp Metabolic Xke649 CALCIUM 9.2 mg/dL 12/03/2014 Comp Metabolic Lkl093 ALK PHOS 88 U/L 12/03/2014 Comp Metabolic Vbi855 AST(SGOT) 18 U/L 12/03/2014 Comp Metabolic Ayh693 ALT(SGPT) 17 U/L 12/03/2014 Comp Metabolic Trc837 BILI T 0.5 mg/dL 12/03/2014 Comp Metabolic Jfg396 ALBUMIN 3.9 g/dL 12/03/2014 Comp Metabolic Tet635 TPRO 6.8 g/dL 12/03/2014 Comp Metabolic Nlr193 GLOB 2.9 g/dL 12/03/2014 Comp Metabolic Eyw490 A/G Ratio 1.3 Ratio 12/03/2014 Comp Metabolic Ocg297 Osmo 265 mOsmo 12/03/2014 Tsh Ord6 hTSH II 1.13 uIU/mL 12/03/2014 D-Dimer [id number] D-DIMER 168 NG/ML 12/03/2014 D-Dimer [id number] COMMENT 12/03/2014 Cbc With Differential Ord2 WBC [...] System Result Effective Dates Constitutional recent illness 07/17/2018 Constitutional chills 07/17/2018 Constitutional No diaphoresis 07/17/2018 Constitutional fever 07/17/2018 Eyes No eye erythema 07/17/2018 Ears/Nose/Throat/Neck nasal allergies 10/2018 Ears/Nose/Throat/Neck nasal discharge 10/2018 Ears/Nose/Throat/Neck postnasal drip 10/2018 Ears/Nose/Throat/Neck sinus congestion Ears/Nose/Throat/Neck sore throat 2018 Cardiovascular No chest pain/pressure 10/2018 Cardiovascular No dyspnea 07/17/2018 Respiratory No chest congestion 2018 Respiratory cough 07/17/2018 Respiratory No dyspnea 07/17/2018 Gastrointestinal No constipation 2018 Gastrointestinal No diarrhea 07/17/2018 Gastrointestinal No nausea 07/17/2018 Gastrointestinal No vomiting 07/17/2018 Dermatologic No rash 07/17/2018 Neurologic No alteration of consciousness 07/17/2018 Neurologic No mental status change 2018 Gastrointestinal abdominal pain 2018 Constitutional No recent illness 2018 Constitutional No chills 07/04/2018 Constitutional No diaphoresis 07/04/2018 Constitutional No fever 07/04/2018 Eyes No eye erythema 07/04/2018 Ears/Nose/Throat/Neck No nasal allergies 07/04/2018 Ears/Nose/Throat/Neck No nasal discharge 07/04/2018 Cardiovascular No chest pain/pressure Cardiovascular No dyspnea 07/04/2018 Respiratory No chest congestion 2018 Respiratory No cough 07/04/2018 Gastrointestinal No abdominal pain 2018 Musculoskeletal No joint complaint 2018 Dermatologic No rash 07/04/2018 Neurologic No alteration of consciousness 07/04/2018 Neurologic No mental status change 2018 Psychiatric anxiety 07/04/2018 Psychiatric depression 07/04/2018 Psychiatric No suicidality 07/04/2018 Constitutional No recent illness 2018 Constitutional No chills 06/19/2018 Constitutional No diaphoresis 06/19/2018 Constitutional No fever 06/19/2018 Eyes No eye erythema 06/19/2018 Ears/Nose/Throat/Neck No nasal allergies 06/19/2018 Ears/Nose/Throat/Neck No nasal discharge 06/19/2018 Cardiovascular No chest pain/pressure 10/2018 Cardiovascular No dyspnea 06/19/2018 Respiratory No chest congestion 2018 Respiratory No cough 06/19/2018 Gastrointestinal No abdominal pain 2018 Musculoskeletal No joint complaint 2018 Dermatologic No rash 06/19/2018 Neurologic No alteration of consciousness 06/19/2018 Neurologic No mental status change 2018 Psychiatric anxiety 06/19/2018 Psychiatric depression 06/19/2018 Psychiatric No suicidality 06/19/2018 Constitutional No recent illness 2017 Constitutional No chills 04/24/2018 Constitutional No diaphoresis 04/24/2018 Constitutional No fever 04/24/2018 Eyes No eye erythema 04/24/2018 Ears/Nose/Throat/Neck No nasal discharge 04/24/2018 Cardiovascular No chest pain/pressure 04/2018 Cardiovascular No dyspnea 04/24/2018 Respiratory No cough 04/24/2018 Respiratory No chest congestion 2017 Gastrointestinal abdominal pain 2017 Gastrointestinal No constipation 2017 Gastrointestinal No diarrhea 04/24/2018 Gastrointestinal No vomiting 04/24/2018 Gastrointestinal nausea 04/24/2018 Gastrointestinal No melena 04/24/2018 Gastrointestinal No hematochezia 2017 Gastrointestinal No gastroesophageal reflux 04/24/2018 Neurologic No alteration of consciousness 04/24/2018 Neurologic No mental status change 2017 Constitutional No recent illness 2017 Constitutional No chills 04/17/2018 Constitutional No diaphoresis 04/17/2018 Constitutional No fever 04/17/2018 Eyes No eye erythema 04/17/2018 Ears/Nose/Throat/Neck No nasal discharge 04/17/2018 Ears/Nose/Throat/Neck No nasal allergies 04/17/2018 Cardiovascular No chest pain/pressure 09/2017 Cardiovascular No dyspnea 04/17/2018 Respiratory No cough 04/17/2018 Respiratory No chest congestion 2017 Gastrointestinal No abdominal pain 2017 Gastrointestinal No constipation 2017 Gastrointestinal No diarrhea 04/17/2018 Musculoskeletal joint complaint 2017 Musculoskeletal arthralgia(s) 04/17/2018 Neurologic No alteration of consciousness 04/17/2018 Neurologic No mental status change 2017 Constitutional No recent illness 2017 Constitutional No chills 03/14/2018 Constitutional No diaphoresis 03/14/2018 Constitutional No fever 03/14/2018 Eyes No eye erythema 03/14/2018 Ears/Nose/Throat/Neck No nasal discharge 03/14/2018 Ears/Nose/Throat/Neck No nasal allergies 03/14/2018 Cardiovascular No chest pain/pressure 05/2017 Cardiovascular No dyspnea 03/14/2018 Respiratory No cough 03/14/2018 Respiratory No chest congestion 2017 Gastrointestinal No abdominal pain 2017 Gastrointestinal No vomiting 03/14/2018 Gastrointestinal No nausea 03/14/2018 Gastrointestinal No constipation 2017 Gastrointestinal No diarrhea 03/14/2018 Musculoskeletal arthralgia(s) 03/14/2018 Cardiovascular edema 03/14/2018 Dermatologic No rash 03/14/2018 Neurologic No alteration of consciousness 03/14/2018 Neurologic No mental status change 2017 Constitutional No recent illness 2017 Constitutional No chills 02/27/2018 Constitutional No diaphoresis 02/27/2018 Constitutional No fever 02/27/2018 Eyes No eye erythema 02/27/2018 Ears/Nose/Throat/Neck No nasal discharge 02/27/2018 Cardiovascular No chest pain/pressure Cardiovascular No dyspnea 02/27/2018 Respiratory No cough 02/27/2018 Respiratory No dyspnea 02/27/2018 Musculoskeletal joint complaint 2017 Neurologic No alteration of consciousness 02/27/2018 Neurologic No mental status change 2017 Constitutional No recent illness 2017 Constitutional No chills 12/04/2017 Constitutional No fever 12/04/2017 Eyes No eye erythema 12/04/2017 Ears/Nose/Throat/Neck No nasal discharge 12/04/2017 Cardiovascular No chest pain/pressure Cardiovascular No dyspnea 12/04/2017 Respiratory No cough 12/04/2017 Respiratory No dyspnea 12/04/2017 Musculoskeletal joint complaint 2017 Neurologic No alteration of consciousness 12/04/2017 Neurologic No mental status change 2017 Constitutional No recent illness 2017 Constitutional No chills 11/20/2017 Constitutional No diaphoresis 11/20/2017 Constitutional No fever 11/20/2017 Eyes No eye erythema 11/20/2017 Ears/Nose/Throat/Neck No nasal discharge 11/20/2017 Cardiovascular No chest pain/pressure 02/2018 Cardiovascular No dyspnea 11/20/2017 Respiratory No cough 11/20/2017 Respiratory No dyspnea 11/20/2017 Musculoskeletal joint complaint 2017 Neurologic No alteration of consciousness 11/20/2017 Neurologic No mental status change 2017 Constitutional No recent illness 2017 Constitutional No chills 09/10/2017 Constitutional No diaphoresis 09/10/2017 Constitutional No fever 09/10/2017 Eyes No eye erythema 09/10/2017 Ears/Nose/Throat/Neck No nasal discharge 09/10/2017 Cardiovascular No chest pain/pressure Cardiovascular No dyspnea 09/10/2017 Respiratory No cough 09/10/2017 Respiratory No dyspnea 09/10/2017 Musculoskeletal joint complaint 2017 Neurologic No alteration of consciousness 09/10/2017 Neurologic No mental status change 2017 Constitutional recent illness 08/14/2017 Constitutional No chills 08/14/2017 Constitutional No diaphoresis 08/14/2017 Constitutional No fever 08/14/2017 Eyes No eye erythema 08/14/2017 Ears/Nose/Throat/Neck No nasal discharge 08/14/2017 Cardiovascular No chest pain/pressure 07/2017 Cardiovascular No dyspnea 08/14/2017 Respiratory No cough 08/14/2017 Respiratory No chest congestion 2017 Gastrointestinal No abdominal pain 2017 Gastrointestinal No constipation 2017 Gastrointestinal No diarrhea 08/14/2017 Musculoskeletal joint complaint 2017 Dermatologic No rash 08/14/2017 Neurologic No alteration of consciousness 08/14/2017 Neurologic No mental status change 2017 Constitutional No recent illness 2017 Constitutional No chills 07/31/2017 Constitutional No fever 07/31/2017 Eyes No eye erythema 07/31/2017 Ears/Nose/Throat/Neck No nasal discharge 07/31/2017 Cardiovascular No chest pain/pressure Cardiovascular No dyspnea 07/31/2017 Respiratory No cough 07/31/2017 Respiratory No dyspnea 07/31/2017 Musculoskeletal joint complaint 2017 Neurologic No alteration of consciousness 07/31/2017 Neurologic No mental status change 2017 Constitutional recent illness 06/27/2017 Constitutional chills 06/27/2017 [...] ENT Constitutional general appearance Overall: well nourished 07/17/2018 None Full Exam - ENT Constitutional general appearance Overall: well developed 07/17/2018 None Full Exam - ENT Constitutional general appearance Overall: in no acute distress 07/17/2018 None Full Exam - ENT Ears/Nose/Throat otoscopic exam Overall: external auditory canals normal 07/17/2018 None Full Exam - ENT Ears/Nose/Throat otoscopic exam Left tympanic membrane: air -fluid level 07/17/2018 None Full Exam - ENT Ears/Nose/Throat otoscopic exam Right tympanic membrane: air-fluid level 07/17/2018 None Full Exam - ENT Ears/Nose/Throat lips/ teeth/gingiva Overall: benign lips 07/17/2018 None Full Exam - ENT Ears/Nose/Throat oropharynx Overall: oral mucosa clear 07/17/2018 None Full Exam - ENT Ears/Nose/Throat oropharynx Posterior Pharynx: clear post nasal drainage 07/17/2018 None Full Exam - ENT Ears/Nose/Throat oropharynx Posterior Pharynx: erythema 07/17/2018 None Full Exam - ENT Respiratory inspection Overall: no retractions 07/17/2018 None Full Exam - ENT Respiratory inspection Overall: normal rate 10/2018 None Full Exam - ENT Respiratory auscultation Overall: breath sounds clear bilaterally 07/17/2018 None Full Exam - ENT Cardiovascular auscultation of heart Rate: normal rate 07/17/2018 None Full Exam - ENT Cardiovascular auscultation of heart Rhythm: regular rhythm 07/17/2018 None Full Exam - ENT Lymphatic palpation of lymph nodes Overall: anterior cervical chain benign 07/17/2018 None Full Exam - ENT Lymphatic palpation of lymph nodes Overall: posterior cervical chain benign 07/17/2018 None Full Exam - ENT Neurologic mood and affect Overall: normal mood 07/17/2018 None Full Exam - ENT Neurologic mood and affect Overall: normal affect 07/17/2018 None Full Exam - ENT Neurologic orientation Overall: oriented to person, place and time 07/17/2018 None Full Exam - ENT Abdomen abdominal exam Overall: normal bowel sounds 07/17/2018 None Full Exam - ENT Abdomen abdominal exam Right upper quadrant: tender to palpation 07/17/2018 None Full Exam - ENT Abdomen abdominal exam Right upper quadrant: sharp pain 07/17/2018 None Full Exam - ENT Abdomen abdominal exam Right upper quadrant: voluntary guarding 07/17/2018 None Full Exam - ENT Abdomen abdominal exam Right upper quadrant: no rebound tenderness 07/17/2018 None Full Exam - ENT Abdomen abdominal exam Right upper quadrant: soft 07/17/2018 None Full Exam - General 1994 Constitutional general appearance Overall: well developed 07/04/2018 None Full Exam - General 1994 Constitutional general appearance Overall: in no acute distress 07/04/2018 None Full Exam - General 1994 Constitutional general appearance Overall: well nourished 07/04/2018 None Full Exam - General 1994 Eyes conjunctiva /eyelids Overall: conjunctiva clear 07/04/2018 None Full Exam - General 1994 Eyes conjunctiva /eyelids Overall: cornea clear 07/04/2018 None Full Exam - General 1994 Eyes conjunctiva /eyelids Overall: eyelids normal 07/04/2018 None Full Exam - General 1994 Ears/Nose/Throat lips/teeth/gingiva Overall: benign lips 07/04/2018 None Full Exam - General 1994 Ears/Nose/Throat oral cavity/pharynx/larynx Overall: oral mucosa clear 07/04/2018 None Full Exam - General 1994 Respiratory respiratory effort/rhythm Overall: no retractions 07/04/2018 None Full Exam - General 1994 Respiratory respiratory effort/rhythm Overall: normal rate 07/04/2018 None Full Exam - General 1994 Cardiovascular extremities Overall: no clubbing 07/04/2018 None Full Exam - General 1994 Musculoskeletal gait and station Overall: normal gait 07/04/2018 None Full Exam - General 1995 Musculoskeletal gait and station Overall: normal station 07/04/2018 None Full Exam - General 1994 Musculoskeletal head and neck Overall: head atraumatic 07/04/2018 None Full Exam - General 1994 Neurologic cranial nerves Overall: crainial nerves 2 - 12 grossly intact 07/04/2018 None Full Exam - General 1995 Psychiatric orientation/consciousness Overall: oriented to person, place and time 07/04/2018 None Full Exam - General 1994 Psychiatric mood and affect Overall: normal mood and affect 07/04/2018 None Full Exam - General 1995 Constitutional general appearance Overall: well developed 06/19/2018 None Full Exam - General 1995 Constitutional general appearance Overall: in no acute distress 06/19/2018 None Full Exam - General 1995 Constitutional general appearance Overall: well nourished 06/19/2018 None Full Exam - General 1995 Eyes conjunctiva /eyelids Overall: conjunctiva clear 06/19/2018 None Full Exam - General 1995 Eyes conjunctiva /eyelids Overall: cornea clear 06/19/2018 None Full Exam - General 1994 Eyes conjunctiva /eyelids Overall: eyelids normal 06/19/2018 None Full Exam - General 1994 Ears/Nose/Throat lips/teeth/gingiva Overall: benign lips 06/19/2018 None Full Exam - General 1994 Ears/Nose/Throat oral cavity/pharynx/larynx Overall: oral mucosa clear 06/19/2018 None Full Exam - General 1994 Respiratory respiratory effort/rhythm Overall: no retractions 06/19/2018 None Full Exam - General 1994 Respiratory respiratory effort/rhythm Overall: normal rate 06/19/2018 None Full Exam - General 1994 Cardiovascular extremities Overall: no clubbing 06/19/2018 None Full Exam - General 1994 Musculoskeletal gait and station Overall: normal gait 06/19/2018 None Full Exam - General 1994 Musculoskeletal gait and station Overall: normal station 06/19/2018 None Full Exam - General 1994 Musculoskeletal head and neck Overall: head atraumatic 06/19/2018 None Full Exam - General 1994 Neurologic cranial nerves Overall: crainial nerves 2 - 12 grossly intact 06/19/2018 None Full Exam - General 1994 Psychiatric orientation/consciousness Overall: oriented to person, place and time 06/19/2018 None Full Exam - General 1994 Psychiatric mood and affect Mood: depressed 06/19/2018 None Full Exam - General 1994 Psychiatric mood and affect Mood: anxious 06/19/2018 None Full Exam - General 1994 Constitutional general appearance Overall: well developed 04/24/2018 None Full Exam - General 1994 Constitutional general appearance Overall: in no acute distress 04/24/2018 None Full Exam - General 1994 Constitutional general appearance Overall: well nourished 04/24/2018 None Full Exam - General 1994 Eyes conjunctiva /eyelids Overall: eyelids normal 04/24/2018 None Full Exam - General 1994 Eyes conjunctiva /eyelids Overall: cornea clear 04/24/2018 None Full Exam - General 1994 Eyes conjunctiva /eyelids Overall: conjunctiva clear 04/24/2018 None Full Exam - General 1994 Ears/Nose/Throat lips/teeth/gingiva Overall: benign lips 04/24/2018 None Full Exam - General 1994 Ears/Nose/Throat oral cavity/pharynx/larynx Overall: oral mucosa clear 04/24/2018 None Full Exam - General 1994 Respiratory respiratory effort/rhythm Overall: normal rate 04/24/2018 None Full Exam - General 1994 Respiratory respiratory effort/rhythm Overall: no retractions 04/24/2018 None Full Exam - General 1994 Respiratory auscultation Overall: breath sounds clear bilaterally 04/24/2018 None Full Exam - General 1994 Cardiovascular auscultation of heart Overall: regular rate 04/24/2018 None Full Exam - General 1994 Cardiovascular auscultation of heart Overall: normal heart sounds 04/24/2018 None Full Exam - General 1994 Abdomen abdominal exam Overall: normal bowel sounds 04/24/2018 None Full Exam - General 1994 Abdomen abdominal exam Upper quadrant: tender to palpation 04/24/2018 None Full Exam - General 1994 Abdomen abdominal exam Upper quadrant: sharp pain 04/24/2018 None Full Exam - General 1994 Abdomen abdominal exam Upper quadrant: involuntary guarding 04/24/2018 None Full Exam - General 1994 Abdomen abdominal exam Upper quadrant: no rebound tenderness 04/24/2018 None Full Exam - General 1994 Abdomen abdominal exam Upper quadrant: soft 04/24/2018 None Full Exam - General 1994 Abdomen abdominal exam Lower quadrant: non-tender to palpation 04/24/2018 None Full Exam - General 1994 Abdomen abdominal exam Lower quadrant: no guarding 04/24/2018 None Full Exam - General 1994 Abdomen abdominal exam Lower quadrant: no rebound tenderness 04/24/2018 None Full Exam - General 1994 Abdomen abdominal exam Lower quadrant: soft 04/24/2018 None Full Exam - General 1994 Abdomen abdominal exam Epigastric: tender to palpation 04/24/2018 None Full Exam - General 1994 Abdomen abdominal exam Epigastric: dull pain 04/24/2018 None Full Exam - General 1994 Abdomen abdominal exam Epigastric: voluntary guarding 04/24/2018 None Full Exam - General 1994 Abdomen abdominal exam Epigastric: no rebound tenderness 04/24/2018 None Full Exam - General 1994 Abdomen abdominal exam Epigastric: soft 04/24/2018 None Full Exam - General 1994 Musculoskeletal head and neck Overall: head atraumatic 04/24/2018 None Full Exam - General 1994 Musculoskeletal gait and station Overall: normal gait 04/24/2018 None Full Exam - General 1994 Musculoskeletal gait and station Overall: normal station 04/24/2018 None Full Exam - General 1994 Neurologic cranial nerves Overall: crainial nerves 2 - 12 grossly intact 04/24/2018 None Full Exam - General 1994 Psychiatric orientation/consciousness Overall: oriented to person, place and time 04/24/2018 None Full Exam - General 1994 Psychiatric mood and affect Overall: normal mood and affect 04/24/2018 None Full Exam - General 1994 Constitutional general appearance Overall: well developed 04/17/2018 None Full Exam - General 1994 Constitutional general appearance Overall: in no acute distress 04/17/2018 None Full Exam - General 1994 Constitutional general appearance Overall: well nourished 04/17/2018 None Full Exam - General 1994 Eyes conjunctiva /eyelids Overall: conjunctiva clear 04/17/2018 None Full Exam - General 1994 Ears/Nose/Throat oral cavity/pharynx/larynx Overall: oral mucosa clear 04/17/2018 None Full Exam - General 1994 Ears/Nose/Throat lips/teeth/gingiva Overall: benign lips 04/17/2018 None Full Exam - General 1994 Respiratory respiratory effort/rhythm Overall: normal rate 04/17/2018 None Full Exam - General 1994 Respiratory respiratory effort/rhythm Overall: no retractions 04/17/2018 None Full Exam - General 1994 Respiratory auscultation Overall: breath sounds clear bilaterally 04/17/2018 None Full Exam - General 1994 Cardiovascular auscultation of heart Overall: normal heart sounds 04/17/2018 None Full Exam - General 1994 Cardiovascular auscultation of heart Overall: regular rate 04/17/2018 None Full Exam - General 1994 Musculoskeletal head and neck Overall: head atraumatic 04/17/2018 None Full Exam - General 1994 Neurologic cranial nerves Overall: crainial nerves 2 - 12 grossly intact 04/17/2018 None Full Exam - General 1994 Psychiatric orientation/consciousness Overall: oriented to person, place and time 04/17/2018 None Full Exam - General 1994 Psychiatric mood and affect Overall: normal mood and affect 04/17/2018 None Full Exam - General 1994 Psychiatric appearance Overall: well-groomed, good eye contact 04/17/2018 None Full Exam - General 1994 Integument inspection of skin Location: left foot 04/17/2018 incision to heal - clean, dry, edges well approximated Full Exam - General 1994 Constitutional general appearance Overall: well developed 03/14/2018 None Full Exam - General 1994 Constitutional general appearance Overall: in no acute distress 03/14/2018 None Full Exam - General 1994 Constitutional general appearance Overall: well nourished 03/14/2018 None Full Exam - General 1994 Eyes conjunctiva /eyelids Overall: eyelids normal 03/14/2018 None Full Exam - General 1994 Eyes conjunctiva /eyelids Overall: cornea clear 03/14/2018 None Full Exam - General 1994 Eyes conjunctiva /eyelids Overall: conjunctiva clear 03/14/2018 None Full Exam - General 1994 Ears/Nose/Throat oral cavity/pharynx/larynx Overall: oral mucosa clear 03/14/2018 None Full Exam - General 1994 Ears/Nose/Throat lips/teeth/gingiva Overall: benign lips 03/14/2018 None Full Exam - General 1994 Respiratory respiratory effort/rhythm Overall: normal rate 03/14/2018 None Full Exam - General 1994 Respiratory respiratory effort/rhythm Overall: no retractions 03/14/2018 None Full Exam - General 1994 Respiratory auscultation Overall: breath sounds clear bilaterally 03/14/2018 None Full Exam - General 1994 Cardiovascular auscultation of heart Overall: regular rate 03/14/2018 None Full Exam - General 1994 Cardiovascular auscultation of heart Overall: normal heart sounds 03/14/2018 None Full Exam - General 1994 Cardiovascular extremities Edema present: pitting 03/14/2018 None Full Exam - General 1994 Cardiovascular extremities Edema present: severity 1+ - 4 +: 1+ 03/14/2018 None Full Exam - General 1994 Cardiovascular extremities Edema present: bilateral 03/14/2018 None Full Exam - General 1994 Cardiovascular extremities Edema present: to leg 03/14/2018 None Full Exam - General 1994 Musculoskeletal head and neck Overall: head atraumatic 03/14/2018 None Full Exam - General 1994 Neurologic cranial nerves Overall: crainial nerves 2 - 12 grossly intact 03/14/2018 None Full Exam - General 1994 Psychiatric orientation/consciousness Overall: oriented to person, place and time 03/14/2018 None Full Exam - General 1994 Psychiatric mood and affect Overall: normal mood and affect 03/14/2018 None Full Exam - General 1994 Psychiatric appearance Overall: well-groomed, good eye contact 03/14/2018 None Full Exam - Orthopedics Constitutional general appearance Overall: well nourished 02/27/2018 None Full Exam - Orthopedics Constitutional general appearance Overall: well developed 02/27/2018 None Full Exam - Orthopedics Constitutional general appearance Overall: in no acute distress 02/27/2018 None Full Exam - Orthopedics Eyes conjunctiva/ eyelids Overall: conjunctiva clear 02/27/2018 None Full Exam - Orthopedics Eyes conjunctiva/ eyelids Overall: eyelids normal 02/27/2018 None Full Exam - Orthopedics Ears/Nose/Throat lips/teeth/gingiva Overall: benign lips 02/27/2018 None Full Exam - Orthopedics Ears/Nose/Throat oral cavity/pharynx/larynx Overall: oral mucosa clear 02/27/2018 None Full Exam - Orthopedics Respiratory respiratory effort/rhythm Overall: no retractions 02/27/2018 None Full Exam - Orthopedics Respiratory respiratory effort/rhythm Overall: normal rate 02/27/2018 None Full Exam - Orthopedics MS: head/neck insp & palp - H/N Overall: head atraumatic 02/27/2018 None Full Exam - Orthopedics MS: left lower extremity insp & palp - LLE Knee: joint swelling 02/27/2018 None Full Exam - Orthopedics MS: left lower extremity range of motion - LLE Knee: pain with flexion 02/27/2018 None Full Exam - Orthopedics MS: left lower extremity range of motion - LLE Knee: pain with extension 02/27/2018 None Full Exam - Orthopedics Psychiatric orientation/consciousness Overall: oriented to person, place and time 02/27/2018 None Full Exam - Orthopedics Psychiatric mood and affect Overall: normal mood and affect 02/27/2018 None Full Exam - Orthopedics Psychiatric appearance Overall: well-groomed, good eye contact 02/27/2018 None Full Exam - Orthopedics Constitutional general appearance Overall: well nourished 12/04/2017 None Full Exam - Orthopedics Constitutional general appearance Overall: well developed 12/04/2017 None Full Exam - Orthopedics Constitutional general appearance Overall: in no acute distress 12/04/2017 None Full Exam - Orthopedics Eyes conjunctiva/ eyelids Overall: conjunctiva clear 12/04/2017 None Full Exam - Orthopedics Eyes conjunctiva/ eyelids Overall: eyelids normal 12/04/2017 None Full Exam - Orthopedics Ears/Nose/Throat lips/teeth/gingiva Overall: benign lips 12/04/2017 None Full Exam - Orthopedics Ears/Nose/Throat oral cavity/pharynx/larynx Overall: oral mucosa clear 12/04/2017 None Full Exam - Orthopedics Respiratory respiratory effort/rhythm Overall: no retractions 12/04/2017 None Full Exam - Orthopedics Respiratory respiratory effort/rhythm Overall: normal rate 12/04/2017 None Full Exam - Orthopedics Cardiovascular examination of vasculature Overall: no clubbing, cyanosis, edema 12/04/2017 None Full Exam - Orthopedics MS: right lower extremity insp & palp - RLE Rearfoot: pain on palpation 12/04/2017 None Full Exam - Orthopedics MS: right lower extremity insp & palp - RLE Rearfoot: tenderness at Achilles tendon insertion 12/04/2017 None Full Exam - Orthopedics Psychiatric orientation/consciousness Overall: oriented to person, place and time 12/04/2017 None Full Exam - Orthopedics Psychiatric mood and affect Overall: normal mood and affect 12/04/2017 None Full Exam - Orthopedics Psychiatric appearance Overall: well-groomed, good eye contact 12/04/2017 None Full Exam - Orthopedics Constitutional general appearance Overall: well nourished 11/20/2017 None Full Exam - Orthopedics Constitutional general appearance Overall: well developed 11/20/2017 None Full Exam - Orthopedics Constitutional general appearance Overall: in no acute distress 11/20/2017 None Full Exam - Orthopedics Eyes conjunctiva/ eyelids Overall: conjunctiva clear 11/20/2017 None Full Exam - Orthopedics Eyes conjunctiva/ eyelids Overall: eyelids normal 11/20/2017 None Full Exam - Orthopedics Ears/Nose/Throat lips/teeth/gingiva Overall: benign lips 11/20/2017 None Full Exam - Orthopedics Ears/Nose/Throat oral cavity/pharynx/larynx Overall: oral mucosa clear 11/20/2017 None Full Exam - Orthopedics Respiratory respiratory effort/rhythm Overall: no retractions 11/20/2017 None Full Exam - Orthopedics Respiratory respiratory effort/rhythm Overall: normal rate 11/20/2017 None Full Exam - Orthopedics MS: head/neck insp & palp - H/N Overall: head atraumatic 11/20/2017 None Full Exam - Orthopedics MS: left lower extremity range of motion - LLE Knee: pain with flexion 11/20/2017 None Full Exam - Orthopedics MS: left lower extremity range of motion - LLE Knee: pain with extension 11/20/2017 None Full Exam - Orthopedics Psychiatric orientation/consciousness Overall: oriented to person, place and time 11/20/2017 None Full Exam - Orthopedics Psychiatric mood and affect Overall: normal mood and affect 11/20/2017 None Full Exam - Orthopedics Psychiatric appearance Overall: well-groomed, good eye contact 11/20/2017 None Full Exam - Orthopedics MS: left lower extremity insp & palp - LLE Knee: joint swelling 11/20/2017 None Full Exam - Orthopedics Constitutional general appearance Overall: well nourished 09/10/2017 None Full Exam - Orthopedics Constitutional general appearance Overall: well developed 09/10/2017 None Full Exam - Orthopedics Constitutional general appearance Overall: in no acute distress 09/10/2017 None Full Exam - Orthopedics Eyes conjunctiva/ eyelids Overall: conjunctiva clear 09/10/2017 None Full Exam - Orthopedics Eyes conjunctiva/ eyelids Overall: eyelids normal 09/10/2017 None Full Exam - Orthopedics Ears/Nose/Throat lips/teeth/gingiva Overall: benign lips 09/10/2017 None Full Exam - Orthopedics Ears/Nose/Throat oral cavity/pharynx/larynx Overall: oral mucosa clear 09/10/2017 None Full Exam - Orthopedics Respiratory respiratory effort/rhythm Overall: no retractions 09/10/2017 None Full Exam - Orthopedics Respiratory respiratory effort/rhythm Overall: normal rate 09/10/2017 None Full Exam - Orthopedics Psychiatric orientation/consciousness Overall: oriented to person, place and time 09/10/2017 None Full Exam - Orthopedics Psychiatric mood and affect Overall: normal mood and affect 09/10/2017 None Full Exam - Orthopedics Psychiatric appearance Overall: well-groomed, good eye contact 09/10/2017 None Full Exam - Orthopedics MS: head/neck insp & palp - H/N Overall: head atraumatic 09/10/2017 None Full Exam - Orthopedics MS: left lower extremity insp & palp - LLE Knee: joint swelling 09/10/2017 None Full Exam - Orthopedics MS: left lower extremity insp & palp - LLE Knee: joint tenderness 09/10/2017 None Full Exam - Orthopedics MS: left lower extremity range of motion - LLE Knee: pain with flexion 09/10/2017 None Full Exam - Orthopedics MS: left lower extremity range of motion - LLE Knee: pain with extension 09/10/2017 None Full Exam - General 1994 Constitutional general appearance Overall: well developed 08/14/2017 None Full Exam - General 1994 Constitutional general appearance Overall: in no acute distress 08/14/2017 None Full Exam - General 1994 Constitutional general appearance Overall: well nourished 08/14/2017 None Full Exam - General 1994 Eyes conjunctiva /eyelids Overall: conjunctiva clear 08/14/2017 None Full Exam - General 1994 Eyes conjunctiva /eyelids Overall: cornea clear 08/14/2017 None Full Exam - General 1994 Eyes conjunctiva /eyelids Overall: eyelids normal 08/14/2017 None Full Exam - General 1994 Ears/Nose/Throat lips/teeth/gingiva Overall: benign lips 08/14/2017 None Full Exam - General 1994 Ears/Nose/Throat oral cavity/pharynx/larynx Overall: oral mucosa clear 08/14/2017 None Full Exam - General 1994 Respiratory respiratory effort/rhythm Overall: no retractions 08/14/2017 None Full Exam - General 1994 Respiratory respiratory effort/rhythm Overall: normal rate 08/14/2017 None Full Exam - General 1994 Respiratory auscultation Overall: breath sounds clear bilaterally 08/14/2017 None Full Exam - General 1994 Respiratory auscultation Diffuse: diminished 08/14/2017 None Full Exam - General 1994 Cardiovascular auscultation of heart Overall: normal heart sounds 08/14/2017 None Full Exam - General 1994 Cardiovascular auscultation of heart Overall: regular rate 08/14/2017 None Full Exam - General 1994 Musculoskeletal head and neck Overall: head atraumatic 08/14/2017 None Full Exam - General 1994 Musculoskeletal lower extremity Inspection - knee: swelling 08/14/2017 None Full Exam - General 1994 Musculoskeletal lower extremity Palpation - knee: crepitus 08/14/2017 None Full Exam - General 1994 Musculoskeletal lower extremity ROM - knee: pain with flexion 08/14/2017 None Full Exam - General 1994 Neurologic cranial nerves Overall: crainial nerves 2 - 12 grossly intact 08/14/2017 None Full Exam - General 1994 Psychiatric orientation/consciousness Overall: oriented to person, place and time 08/14/2017 None Full Exam - General 1994 Psychiatric mood and affect Overall: normal mood and affect 08/14/2017 None Full Exam - General 1994 Psychiatric appearance Overall: well-groomed, good eye contact 08/14/2017 None Full Exam - Orthopedics Constitutional general appearance Overall: well nourished 07/31/2017 None Full Exam - Orthopedics Constitutional general appearance Overall: well developed 07/31/2017 None Full Exam - Orthopedics Constitutional general appearance Overall: in no acute distress 07/31/2017 None Full Exam - Orthopedics Eyes conjunctiva/ eyelids Overall: conjunctiva clear 07/31/2017 None Full Exam - Orthopedics Eyes conjunctiva/ eyelids Overall: eyelids normal 07/31/2017 None Full Exam - Orthopedics Ears/Nose/Throat lips/teeth/gingiva Overall: benign lips 07/31/2017 None Full Exam - Orthopedics Ears/Nose/Throat oral cavity/pharynx/larynx Overall: oral mucosa clear 07/31/2017 None Full Exam - Orthopedics Respiratory respiratory effort/rhythm Overall: no retractions 07/31/2017 None Full Exam - Orthopedics Respiratory respiratory effort/rhythm Overall: normal rate 07/31/2017 None Full Exam - Orthopedics Psychiatric orientation/consciousness Overall: oriented to person, place and time 07/31/2017 None Full Exam - Orthopedics Psychiatric mood and affect Overall: normal mood and affect 07/31/2017 None Full Exam - Orthopedics Psychiatric appearance Overall: well-groomed, good eye contact 07/31/2017 None Full Exam - Orthopedics Musculoskeletal gait and station Conventional walking: asymmetric 07/31/2017 None Full Exam - Orthopedics Musculoskeletal gait and station Conventional walking: abnormal on left 07/31/2017 None Full Exam - Orthopedics MS: head/neck insp & palp - H/N Overall: head atraumatic 07/31/2017 None Full Exam - Orthopedics MS: left lower extremity insp & palp - LLE Knee: joint swelling 07/31/2017 None Full Exam - Orthopedics MS: left lower extremity insp & palp - LLE Knee: joint tenderness 07/31/2017 None Full Exam - ENT Constitutional general [...] aphasia 08/24/2016 None Full Exam - General 1995 Constitutional general appearance Development: well developed 07/13/2016 None Full Exam - General 1994 Constitutional general appearance Development: appears stated age 0307/13/2016 None Full Exam - General 1995 Constitutional general appearance Stature/Body Habitus: normal body habitus 07/13/2016 None Full Exam - General 1995 Constitutional general appearance Nourishment: well nourished 07/13/2016 None Full Exam - General 1994 Constitutional general appearance Nourishment: obese 07/13/2016 None Full Exam - General 1994 Constitutional general appearance Evidence of Distress: in no acute distress 07/13/2016 None Full Exam - General 1995 Eyes conjunctiva /eyelids Overall: conjunctiva clear 07/13/2016 None Full Exam - General 1995 Eyes conjunctiva /eyelids Overall: cornea clear 07/13/2016 [...] age 0307/15/2015 None Full Exam - General 1995 Constitutional general appearance Stature/Body Habitus: normal body [...] Procedure Codes Date THER/PROPH/DIAG INJ SC/IM CPT-4: 82975 07/17/2018 TRIAMCINOLONE ACET INJ NOS CPT-4: J3301 07/17/2018 THER/PROPH/DIAG INJ SC/IM CPT-4: 98081 06/27/2017 ROCEPHIN, PER 250 MG CPT-4: J0696 06/27/2017 IMMUNIZATION ADMIN CPT -4: 09867 03/16/2017 FLU VAC NO PRSV 4 FLETCHER 3 YRS+ CPT-4: 06179 03/16/2017 Pneumococcal Polysaccharide Vaccine, 23-Valent, Ad CPT-4: 01211 03/16/2017 IMMUNIZATION ADMIN EACH ADD CPT-4: 09962 03/16/2017 TRIAMCINOLONE ACET INJ NOS CPT-4: J3301 01/11/2017 TRIAMCINOLONE ACET INJ NOS CPT-4: J3301 02/28/2016 Vital Signs Date Vital 07/17/2018 Blood Pressure 1: 126/72 Code : 8480-6 BMI: 38.6 Code : 09460-9 Heart Rate 1 : 85 bpm Height: 5'6" SpO2: 95% Temperature: 36.9 (C) / 98.4 (F) Weight: 239 lbs 07/04/2018 Blood Pressure 1: 132/76 Code : 8480-6 Heart Rate 1: 80 bpm Height: SpO2: 97% Weight: 06/19/2018 Blood Pressure 1: 12474 Code : 8480-6 BMI: 38.6 Code : 90246-4 Heart Rate 1 : 85 bpm Height: 5'6" SpO2: 95% Weight: 239 lbs 04/24/2018 Blood Pressure 1: 12874 Code : 8480-6 BMI: 37.8 Code : 61734-1 Heart Rate 1 : 107 bpm Height: 5'6" SpO2: 98% Weight: 234 lbs 04/17/2018 Blood Pressure 1: 120/64 Code : 8480-6 BMI: 37.8 Code : 88230-8 Heart Rate 1 : 84 bpm Height: 5'6" SpO2: 96% Weight: 234 lbs 03/14/2018 Blood Pressure 1: 140/82 Code : 8480-6 BMI: 37.8 Code : 23488-8 Heart Rate 1 : 85 bpm Height: 5'6" SpO2: 98% Weight: 234 lbs 02/27/2018 Blood Pressure 1: 142/68 Code : 8480-6 BMI: 36.5 Code : 54711-3 Heart Rate 1 : 84 bpm Height: 5'6" SpO2: 97% Weight: 226 lbs 12/19/2017 Blood Pressure 1: 130/86 Code : 8480-6 BMI: 35.7 Code : 36812-1 Heart Rate 1 : 94 bpm Height: 5'6" Weight: 221 lbs 12/04/2017 Blood Pressure 1: 138/78 Code : 8480-6 BMI: 36.6 Code : 25366-8 Heart Rate 1 : 94 bpm Height: 5'6" SpO2: 98% Weight: 227 lbs 11/20/2017 Weight: 233 lbs 09/10/2017 Blood Pressure 1: 132/86 Code : 8480-6 Heart Rate 1: 86 bpm Height: Weight: 08/14/2017 Blood Pressure 1: 120/74 Code : 8480-6 BMI: 33.9 Code : 14109-3 Heart Rate 1 : 92 bpm Height: 5'6" SpO2: 94% Weight: 210 lbs 07/31/2017 Blood Pressure 1: 140/80 Code : 8480-6 BMI: 33.9 Code : 65202-4 Heart Rate 1 : 96 bpm Height: 5'6" SpO2: 97% Weight: 210 lbs 06/27/2017 Blood Pressure 1: 128/80 Code : 8480-6 BMI: 33.9 Code : 93655-7 Heart Rate 1 : 85 bpm Height: [...] 98.1 (F) Weight: 04/20/2017 Blood Pressure 1: 126/74 Code : 8480-6 BMI: 39.9 Code : 30371-4 Heart Rate 1 : 79 bpm Height: 5'6" SpO2: 97% Weight: 247 lbs 01/26/2017 Blood Pressure 1: 132/74 Code : 8480-6 BMI: 37.8 Code : 02432-1 Heart Rate 1 : 74 bpm Height: 5'6" SpO2: 97% Weight: 234 lbs 01/11/2017 Blood Pressure 1: 118/68 Code : 8480-6 BMI: 38.7 Code : 18945-3 Heart Rate 1 : 91 bpm Height: 5'6" SpO2: 96% Weight: 240 lbs 11/30/2016 Blood Pressure 1: 132/76 Code : 8480-6 BMI: 38.3 Code : 61210-4 Heart Rate 1 : 71 bpm Height: 5'6" SpO2: 92% Weight: 237 lbs 09/28/2016 Blood Pressure 1: 122/72 Code : 8480-6 BMI: 39.1 Code : 45145-4 Heart Rate 1 : 88 bpm Height: 5'6" SpO2: 94% Weight: 242 lbs 08/24/2016 Blood Pressure 1: 130/87 Code : 8480-6 BMI: 41.5 Code : 70170-6 Heart Rate 1 : 95 bpm Height: 5'6" Respiratory Rate: 16 bpm SpO2: 98% Temperature: 36.9 (C) / 98.5 (F ) Weight: 257 lbs 07/13/2016 Blood Pressure 1: 132/84 Code : 8480-6 BMI: 42.0 Code : 05811-6 Heart Rate 1 : 73 bpm Height: 5'6" SpO2: 97% Weight: 260 lbs 05/19/2016 Blood Pressure 1: 138/76 Code : 8480-6 BMI: 40.8 Code : 58827-2 Heart Rate 1 : 80 bpm Height: 5'6" SpO2: 98% Weight: 253 lbs 03/16/2016 Blood Pressure 1: 122/70 Code : 8480-6 BMI: 40.4 Code : 48277-5 Heart Rate 1 : 72 bpm Height: 5'6" SpO2: 98% Weight: 250 lbs 02/28/2016 Blood Pressure 1: 136/86 Code : 8480-6 BMI: 40.2 Code : 20936-8 Heart Rate 1 : 87 bpm Height: 5'6" SpO2: 96% Temperature: 36.3 (C) / 97.3 (F) Weight: 249 lbs 01/13/2016 Blood Pressure 1: 120/76 Code : 8480-6 BMI: 40.4 Code : 03138-4 Heart Rate 1 : 68 bpm Height: 5'6" SpO2: 97% Weight: 250 lbs 09/27/2015 Blood Pressure 1: 112/70 Code : 8480-6 BMI: 38.4 Code : 53733-1 Heart Rate 1 : 76 bpm Height: 5'6" SpO2: 98% Weight: 238 lbs 08/30/2015 Blood Pressure 1: 144/82 Code : 8480-6 BMI: 39.5 Code : 52949-0 Heart Rate 1 : 82 bpm Height: 5'6" SpO2: 97% Weight: 245 lbs 08/16/2015 Blood Pressure 1: 140/72 Code : 8480-6 BMI: 38.9 Code : 09316-7 Heart Rate 1 : 72 bpm Height: 5'6" SpO2: 97% Weight: 241 lbs 07/15/2015 Blood Pressure 1: 128/80 Code : 8480-6 BMI: 39.3 Code : 85721-9 Heart Rate 1 : 86 bpm Height: 5'6" SpO2: 98% Weight: 243 lbs 8 oz 06/16/2015 Blood Pressure 1: 146/86 Code : 8480-6 BMI: 39.6 Code : 56640-7 Heart Rate 1 : 76 bpm Height: 5'6" SpO2: 97% Weight: 245 lbs 8 oz 04/02/2015 Blood Pressure 1: 132/86 Code : 8480-6 BMI: 40.7 Code : 93302-8 Heart Rate 1 : 94 bpm Height: 5'6" SpO2: 98% Weight: 252 lbs 12/02/2014 Blood Pressure 1: 122/90 Code : 8480-6 BMI: 41.6 Code : 96128-4 Heart Rate 1 : 77 bpm Height: 5'6" SpO2: 95% Weight: 258 lbs Functional Status No Functional Status data History of Present Illness Symptom Name Status Result Effective Date Notes Location frontal sinuses 07/17/2018 None Quality fullness 10/2018 None Quality constant 10/2018 None Onset and Resolution sudden in onset 07/17/2018 None Onset of Symptom 3 days ago 07/17/2018 None Location diffusely None Quality aching 2018 None Onset and Resolution sudden in onset 07/17/2018 None Location in the throat 07/17/2018 None Quality constant 10/2018 None Quality hacking 07/17 None Quality productive None Onset and Resolution sudden in onset 07/17/2018 None Location oral intake 07/04/2018 None Additional Comments medication: lexapro 07/04/2018 None Quality constant 10/2018 None Quality disrupted sleep 06/19/2018 None Onset of Symptom 3 weeks ago 06/19/2018 None Quality constant 10/2018 None Onset and Resolution sudden in onset 06/19/2018 None Onset of Symptom 3 weeks ago 06/19/2018 None Pertinent Findings exhaustion 06/19/2018 None Pertinent Findings helplessness 06/19/2018 None Pertinent Findings loss of interest in activities 06/19/2018 None Pertinent Findings sleep disturbance 06/19/2018 None Pertinent Findings withdrawn 06/19/2018 None Frequency of Episodes daily 06/19/2018 None Location stabbing 04/2018 None Location in the substernal area 04/24/2018 None Quality stabbing 04/2018 None Quality intermittent 04/24/2018 None Triggers no known associated factors 04/24/2018 None Pertinent Findings back pain 04/24/2018 None Pertinent Findings nausea 04/24/2018 None Pertinent Findings palpitations 04/24/2018 None Additional Comments medication use 04/17/2018 None Location oral intake 04/17/2018 None edema Onset and Resolution gradual in onset 03/14/2018 None edema Onset of Symptom _ months ago 03/14/2018 None edema Location on both legs 03/14/2018 None weight gain/obesity Location globally 02/27/2018 None weight gain/obesity Quality constant 02/27/2018 None weight gain/obesity Onset and Resolution ongoing 02/27/2018 None insomnia Quality disrupted sleep 02/27/2018 None insomnia Onset and Resolution ongoing 02/27/2018 None foot pain Location on the right 12/04/2017 None foot pain Location achilles tendon 12/04/2017 None foot pain Quality tenderness 12/04/2017 None foot pain Quality constant 12/04/2017 None foot pain Quality stable 12/04/2017 None foot pain Onset and Resolution sudden in onset 12/04/2017 None foot pain Frequency of Episodes daily 12/04/2017 None foot pain Onset and Resolution ongoing 12/04/2017 None knee pain Location on the left 11/20/2017 None knee pain Location in the anterior region 11/20/2017 None knee pain Pertinent Findings clicking 11/20/2017 None knee pain Pertinent Findings instability 11/20/2017 None knee pain Pertinent Findings pain with movement 11/20/2017 None knee pain Pertinent Findings swelling 11/20/2017 None knee pain Location on the left 09/10/2017 None knee pain Location in the anterior region 09/10/2017 None knee pain Pertinent Findings instability 09/10/2017 None knee pain Pertinent Findings pain with movement 09/10/2017 None knee pain Pertinent Findings clicking 09/10/2017 None knee pain Pertinent Findings swelling 09/10/2017 None Hospital Follow Up _ pain 08/14/2017 None Hospital Follow Up Onset of Symptom 1 weeks ago 08/14/2017 None Hospital Follow Up Onset and Resolution sudden in onset 08/14/2017 None knee pain Location on the left 07/31/2017 None knee pain Quality constant 07/31/2017 None sore throat Location diffusely 06/27/2017 None sore [...] data Encounters Encounter Performer Location Codes Date EST. PATIENT, LEVEL III Diagnosis: Acute laryngopharyngitis[ICD10: J06.0] Diagnosis: Cough[ICD10: R05] Diagnosis: Other allergic rhinitis[ICD10: J30.89] Diagnosis: Right upper quadrant pain[ICD10: R10.11] [facility] CPT-4: 37592 07/17/2018 76959 EST. PATIENT, LEVEL III Diagnosis: Generalized anxiety disorder[ICD10: F41.1] Diagnosis: Major depressive disorder, single episode, moderate[ICD10: F32.1] [facility] CPT-4: 65709 07/04/2018 18105 EST. PATIENT, LEVEL IV Diagnosis: Generalized anxiety disorder[ICD10: F41.1] Diagnosis: Major depressive disorder, single episode, moderate[ICD10: F32.1] Diagnosis: Other insomnia[ICD10: G47.09] Petra Trejo MD, [facility] CPT-4 : 67694 06/19/2018 53260 EST. PATIENT, LEVEL IV Diagnosis: Right upper quadrant pain[ICD10: R10.11] Diagnosis: Other chest pain[ICD10: R07.89] Petra Trejo MD, [facility] CPT-4 : 16970 04/24/2018 [id number] EST. PATIENT, LEVEL III Diagnosis: Generalized anxiety disorder[ICD10: F41.1] Diagnosis: Major depressive disorder, recurrent, mild[ICD10: F33.0] Diagnosis: Essential (primary) hypertension[ICD10: I10] Diagnosis: Type 2 diabetes mellitus without complications[ICD10: E11.9] Petra Trejo MD , [facility] CPT-4: 12550 04/17/2018 18326 EST. PATIENT, LEVEL III Diagnosis: Localized edema[ICD10: R60.0] Diagnosis: Essential (primary) hypertension[ICD10: I10] Petra Trejo MD, [facility] CPT-4: 87085 03/14/2018 01919 EST. PATIENT, LEVEL III Diagnosis: Pain in left knee[ICD10: M25.562] Diagnosis: Other obesity due to excess calories[ICD10: E66.09] Diagnosis: Other insomnia[ICD10: G47.09] Diagnosis: Generalized anxiety disorder[ICD10: F41.1] Petra Trejo MD, [facility] CPT-4: 82001 02/27/2018 ([id number]) Miscellaneous no charge Diagnosis: Other obesity due to excess calories[ICD10: E66.09] Heidy Trejo MD, [facility] CPT-4: 33521 12/19/2017 76526 EST. PATIENT, LEVEL III Diagnosis: Pain in right foot[ICD10: M79.671] Diagnosis: Pain in right ankle and joints of right foot[ICD10: M25.571] Petra Trejo MD , [facility] CPT-4: 17695 12/04/2017 41590 EST. PATIENT, LEVEL III Diagnosis: Pain in left knee[ICD10: M25.562] Diagnosis: Type 2 diabetes mellitus without complications[ICD10: E11.9] Diagnosis: Other obesity due to excess calories[ICD10: E66.09] Petra Trejo MD, [facility] CPT-4: 97815 11/20/2017 03683 EST. PATIENT, LEVEL III Diagnosis: Pain in left knee[ICD10: M25.562] Petra Trejo MD, [facility] CPT -4: 22297 09/10/2017 73642 EST. PATIENT, LEVEL III Diagnosis: Encounter for follow-up examination after completed treatment for conditions other than malignant neoplasm[ICD10: Z09] Diagnosis: Pain in left knee[ICD10: M25.562] Petra Trejo MD, [facility] CPT -4: 76366 08/14/2017 83300 EST. PATIENT, LEVEL III Diagnosis: Pain in left knee[ICD10: M25.562] Petra Trejo MD, [facility] CPT -4: 72687 07/31/2017 54122 EST. PATIENT, LEVEL III Diagnosis: Acute laryngopharyngitis[ICD10: J06.0] Diagnosis: Other allergic rhinitis[ICD10: J30.89] Petra Trejo MD, [facility] CPT-4: 14036 06/27/2017 89546 EST. PATIENT, LEVEL III Diagnosis: Ganglion, left hand[ICD10: M67.442] Diagnosis: Essential (primary) hypertension[ICD10: I10] Diagnosis: Generalized anxiety disorder[ICD10: F41.1] Diagnosis: Other insomnia[ICD10: G47.09] Petra Trejo MD, [facility] CPT-4 : 58313 05/29/2017 50024 EST. PATIENT, LEVEL III Diagnosis: Essential (primary) hypertension[ICD10: I10] Diagnosis: Palpitations[ICD10: R00.2] Diagnosis: Generalized anxiety disorder[ICD10: F41.1] Petra Trejo MD, [facility] CPT-4: 71095 05/21/2017 86410 EST. PATIENT, LEVEL III Diagnosis: Pain in right foot[ICD10: M79.671] Petra Trejo MD, [facility] CPT-4: 77935 04/20/2017 04846 EST. PATIENT, LEVEL IV Diagnosis: Other insomnia[ICD10: G47.09] Diagnosis: Other skin changes[ICD10: R23.8] Petra Trejo MD, [facility] CPT- 4: 91303 01/26/2017 12805 EST. PATIENT, LEVEL IV Diagnosis: Acute bronchitis due to other specified organisms[ICD10: J20.8] Petra Trejo MD, [facility] CPT-4: 86344 01/11/2017 ([id number]) 28598 EST. PATIENT, LEVEL IV Diagnosis: Essential (primary) hypertension[ICD10: I10] Diagnosis: Other insomnia[ICD10: G47.09] Diagnosis: Primary generalized (osteo)arthritis[ICD10: M15.0] Diagnosis: Other obesity due to excess calories[ICD10: E66.09] Claudette Trejo MD, [facility] CPT-4: 90896 11/30/2016 ([id number]) 15097 EST. PATIENT, LEVEL III Diagnosis: Other obesity due to excess calories[ICD10: E66.09] Diagnosis: Other insomnia[ICD10: G47.09] Diagnosis: Generalized anxiety disorder[ICD10: F41.1] Claudette Trejo MD, [facility] CPT-4: 57395 09/28/2016 ([id number]) 40309 EST. PATIENT, LEVEL IV Diagnosis: Generalized anxiety disorder[ICD10: F41.1] Diagnosis: Major depressive disorder, recurrent, mild[ICD10: F33.0] Diagnosis: Other obesity due to excess calories[ICD10: E66.09] Diagnosis: Other insomnia[ICD10: G47.09] Claudette Trejo MD, [facility] CPT-4: 24381 08/24/2016 ([id number]) 77144 EST. PATIENT, LEVEL III Diagnosis: Other obesity due to excess calories[ICD10: E66.09] Diagnosis: Major depressive disorder, recurrent, moderate[ICD10: F33.1] Diagnosis: Low back pain[ICD10: M54.5] Heidy Trejo MD, [facility] CPT- 4: 94545 07/13/2016 98624 EST. PATIENT, LEVEL IV Diagnosis: Other muscle spasm[ICD10: M62.838] Diagnosis: Generalized anxiety disorder[ICD10: F41.1] Diagnosis: Major depressive disorder, recurrent, moderate[ICD10: F33.1] Diagnosis: Other insomnia[ICD10: G47.09] Petra Trejo MD, [facility] CPT-4 : 09700 05/19/2016 ([id number]) 42800 EST. PATIENT, LEVEL III Diagnosis: Generalized anxiety disorder[ICD10: F41.1] Diagnosis: Major depressive disorder, recurrent, moderate[ICD10: F33.1] Heidy Trejo MD, [facility] CPT-4: 69958 03/16/2016 ([id number]) 84337 EST. PATIENT, LEVEL III Diagnosis: Streptococcal pharyngitis[ICD10: J02.0] Claudette Trejo MD, [facility] CPT-4: 12095 02/28/2016 ([id number]) 89911 EST. PATIENT, LEVEL III Diagnosis: Generalized anxiety disorder[ICD10: F41.1] Diagnosis: Other obesity due to excess calories[ICD10: E66.09] Heidy Trejo MD, [facility] CPT-4: 00123 01/13/2016 ([id number]) 58980 EST. PATIENT, LEVEL III Diagnosis: Generalized anxiety disorder[ICD10: F41.1] Diagnosis: Major depressive disorder, recurrent, unspecified[ICD10: F33.9] Heidy Trejo MD, [facility] CPT-4: 66596 09/27/2015 78368 EST. PATIENT, LEVEL IV Diagnosis: Chronic pain syndrome[ICD10: G89.4] Diagnosis: Other obesity due to excess calories[ICD10: E66.09] Diagnosis: Essential (primary) hypertension[ICD10: I10] Diagnosis: Generalized anxiety disorder[ICD10: F41.1] Diagnosis: Excessive and frequent menstruation with regular cycle[ICD10: N92.0] Diagnosis: Pain in right knee[ICD10: M25.561] Petra Trejo MD, [facility] CPT-4: 88737 08/30/2015 95918 EST. PATIENT, LEVEL IV Diagnosis: Palpitations[ICD10: R00.2] Diagnosis: Other obesity due to excess calories[ICD10: E66.09] Petra Trejo MD, [facility] CPT-4: 86592 08/16/2015 ([id number]) 90058 EST. PATIENT, LEVEL IV Diagnosis: Pain in right knee[ICD10: M25.561] Diagnosis: Primary generalized (osteo)arthritis[ICD10: M15.0] Diagnosis: Acute maxillary sinusitis, unspecified[ICD10: J01.00] Heidy Trejo MD, [facility] CPT-4: 89528 07/15/2015 ([id number]) 20854 EST. PATIENT, LEVEL IV Diagnosis: Primary generalized (osteo)arthritis[ICD10: M15.0] Diagnosis: Restless legs syndrome[ICD10: G25.81] Diagnosis: Chronic pain syndrome[ICD10: G89.4] Heidy Trejo MD, [facility] CPT-4: 20285 06/16/2015 ([id number]) 63221 EST. PATIENT, LEVEL III Diagnosis: Primary generalized (osteo)arthritis[ICD10: M15.0] Diagnosis: Varicose veins of bilateral lower extremities with pain[ICD10: I83.813] Claudette Trejo MD, [facility] CPT-4: 19630 ([id number]) OFFICE VISIT, NEW - LEVEL 3 Diagnosis: Osteoarthritis[ICD9: 715.90] Diagnosis: ABNORMAL WEIGHT GAIN[ICD9: 783.1] Diagnosis: Superficial thrombophlebitis[ICD9: 451.9] Carey Trejo MD, [facility] CPT-4: 28964 12/02/2014 Plan of Care Planned Activity Notes [...] spray in the nasal steroid allergy spray. RUQ pain - ongoing - will order gallbladder US and treat or refer as indicated 07/17/2018 Appointment: [phone] [facility] [place] (30 min) Complex 07/17/2018 Patient Education: Patient Medication Summary Completed 07/17/2018 Visit Plan: Chronic Depression and anxiety - the pt has symptoms of chronic anxiety and depression that have been fairly well controlled since the last office visit. The pt has expected periods of exacerbation with abatement of the symptoms with change in situational exposure. No change in current medications. 07/04/2018 Appointment: [facility]ivas [facility]el[phone] [facility] [place] (30 min) Complex 07/04/2018 Patient Education: Patient Medication Summary Completed 07/04/2018 Patient Education: Anxiety Completed 07/04/2018 Visit Plan: Anxiety - the patient has uncontrolled anxiety and will benefit from an SSRI on a daily basis to attempt control of the symptoms of anxiety (tachycardia, overwhelming sensations, stress, insomnia, etc ). I also believe that the patient will benefit from very low dose of prn benzodiazepine. Pt is aware of the risks and benefits of treatment with the above medications. Depression - uncontrolled - Pt has been counseled about the diagnosis of depression, the potential causes, and risks associated with the diagnosis. The pt denies suicidal ideation, or plans. The patient has been counseled about treatment options, and understands the risks associated with treatment of depression, as well as the risks associated with NOT treating the depression. I believe the pt will benefit from medical intervention and an antidepressant has been appropriately prescribed for this patient. 06/19/2018 Appointment: [facility]ivas [facility]el[facility] [phone] [facility] [place] (15 min) Moderate 06/19/2018 Patient Education: Patient Medication Summary Completed 06/19/2018 Patient Education: Depression Completed 06/19/2018 Visit Plan: RUQ pain - pt has had negative gallbladder US - will order HIDA scan - the patient has been counseled against excessive intake of caffeine, spicy foods, peppermint, and cinnamon - all of which can exacerbate esophageal reflux. The patient is to take medications as prescribed and call the office if the symptoms are not improving. 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 The pt has expected periods of exacerbation with abatement of the symptoms with change in situational exposure. No change in current medications. Hypertension - well controlled - continue with current medications, continue with no added salt diet. Pt has been encouraged to exercise daily. The pt has been advised to call the office if there are any acute concerns about change in blood pressure readings at home. Diabetes Mellitus - I have recommended for the patient to have follow up labs prior to the next office visit. The patient has been instructed to continue with current medications as previously directed, continue with regular FSBS monitoring to assure continued control of diabetes. Pt to call for any acute concerns, complaints, or if the blood glucose readings are starting to become less controlled. I have recommended for the patient to follow more strictly to the diabetic diet as discussed in clinic to allow for greater blood glucose control. 04/17/2018 Appointment: Pet[facility]ivas [facility]Ptel: [phone] [facility] (15 min) Moderate 04/17/2018 Patient Education: Patient Medication Summary Completed 04/17/2018 Patient Education: Depression Completed 04/17/2018 Patient Education: Diabetes Completed 04/17/2018 Visit Plan: Hypertension - uncontrolled - the patient's medications have been modified as documented in the visit note. The patient has been counseled to cut [...] pt is to call for acute concerns. Edema - pt has been advised to elevate legs to prevent dependent edema , compression has been recommended to help to naturally decrease peripheral edema. Diuretic use has been discussed and pt has been instructed in appropriate use of such medication as necessary to further attempt to reduce peripheral edema. 03/14/2018 Appointment: [facility]ivas [facility]Ptel: [phone] [facility] (15 min) Moderate 03/14/2018 Patient Education: Patient Medication Summary Completed 03/14/2018 Visit Plan: Chronic Depression and anxiety - [...] 5pm. Daytime napping worsens night time insomnia. Obesity - chronic issue with this patient. The pt has been counseled about diet changes, calorie restriction, and need to exercise. Pt will RTC in one month for weight check. Knee pain - defer to ortho 02/27/2018 Appointment: Petra Rivas WPtel: [facility] (30 min) Complex 02/27/2018 Patient Education: Patient Medication Summary Completed 02/27/2018 Patient Education: Obesity Completed 02/27/2018 Appointment: Nurse Visit 12/19/2017 Patient Education: Patient Medication Summary Completed 12/19/2017 Visit Plan: Right ankle/heel pain - the patient was instructed in appropriate posture, need for weight loss to alleviate abdominal obesity that is worsening the patient's pain. The pt is to use prn antiinflammatories to manage acute pain. The patient is to call the office if the pain is worsening or does not improve. 12/04/2017 Appointment: Petra Rivas WPtel: [facility] (15 min) Moderate 12/04/2017 Patient Education: Patient Medication Summary Completed 12/04/2017 Visit Plan: Left knee pain - ongoing - pt is to follow up with Dr. Haji - pt is to use RICE - Rest, Ice, Compression, Elevation - The pt is to use prn antiinflammatories to manage acute pain. The patient is to call the office if the pain is worsening or does not improve. Obesity - chronic issue with this patient. The pt has been counseled about diet changes, calorie restriction, and need to exercise. Pt will RTC in one month for weight check. Diabetes Mellitus - Uncontrolled - per recent FSBS reports. I have recommended for the patient to have follow up labs prior to the next office visit. The patient has been instructed to continue with current medications as previously directed, continue with regular FSBS monitoring to assure continued control of diabetes. Pt to call for any acute concerns, complaints, or if the blood glucose readings are starting to become less controlled. I have recommended for the patient to follow more strictly to the diabetic diet as discussed in clinic to allow for greater blood glucose control. 11/20/2017 Appointment: Petra Rivas WPtel: [phone] [facility] [place] (15 min) Moderate 11/20/2017 Patient Education: Patient Medication Summary Completed 11/20/2017 Patient Education: Obesity Completed 11/20/2017 Visit Plan: Left knee pain - ongoing - will order MRI and refer as indicated - pt is to use RICE - Rest, Ice, Compression, Elevation - The pt is to use prn antiinflammatories to manage acute pain. The patient is to call the office if the pain is worsening or does not improve. 09/10/2017 Appointment: Petra Rivas WPtel: [phone] [facility] [place] (15 min) Moderate 09/10/2017 Patient Education: Patient Medication Summary Completed 09/10/2017 Visit Plan: Hospital follow up - This was a follow up appointment from the patient's hospitalization during which time Dr. Trejo formulated the assessment and plan for the follow up on this patient's medical condition. Left knee pain - pt is to use RICE - rest, ice, compression, elevation - the patient was instructed in appropriate posture, need for weight loss to alleviate abdominal obesity that is worsening the patient's pain.. The pt is to use prn antiinflammatories to manage acute pain. The patient is to call the office if the pain is worsening or does not improve. 08/14/2017 Appointment: Petra Rivas WPtel: [phone] [facility] [place] (30 min) Complex 08/14/2017 Patient Education: Patient Medication Summary Completed 08/14/2017 Appointment: Petra Rivas WPtel: [facility] (15 min) Moderate 08/01/2017 Visit Plan: Knee pain - pt is to use RICE - Rest, Ice, Compression, Elevation - pt is to use crutches as directed - The pt is to use prn antiinflammatories to manage acute pain. The patient is to call the office if the pain is worsening or does not improve. 07/31/2017 Appointment: Petra Rivas WPtel: [facility] (30 min) Complex 07/31/2017 Patient Education: Patient Medication Summary Completed 07/31/2017 Care Plan: X-RAY EXAM OF KNEE 3 [facility] : 42040-8 Pending 07/31/2017 Visit Plan: URI - Pt advised to [...] allergy spray. 06/27/2017 Appointment: Petra Rivas WPtel: [facility] (15 min) Moderate 06/27/2017 Patient Education: Patient Medication Summary Completed 06/27/2017 Referral: Jignesh Quinn Patient informed. Referral info faxed. Completed 06/13/2017 [...] Dr. Quinn 05/29/2017 Appointment: Petra Rivas WPtel: [phone] [facility] (15 min) Moderate 05/29/2017 Patient Education: Patient Medication Summary Completed 05/29/2017 Care Plan: Referral Order SNOMED-CT : [id number] Pending 05/29/2017 Appointment: [facility]ivas [facility]Ptel: [phone] [facility] (15 min) Moderate 05/28/2017 Visit Plan: Palpitations [...] acute concerns. 05/21/2017 Appointment: [facility]ivas [facility]Ptel: [phone] [facility] (15 min) Moderate 05/21/2017 Patient Education: Patient Medication Summary Completed 05/21/2017 Visit Plan: Right heel pain - will send RX, pt is to do stretches as directed - The pt is to use prn antiinflammatories to manage acute pain. The patient is to call the office if the pain is worsening or does not improve. 04/20/2017 Appointment: Petra Rivas WPtel: [facility] (30 min) Complex 04/20/2017 Patient Education: Patient Medication Summary Completed 04/20/2017 Appointment: Petra Rivas WPtel: [facility] (30 min) Complex 03/29/2017 Patient Education: Patient Medication Summary Completed 03/16/2017 Referral: Maycol Quijano Referral Initiated 02/08/2017 Care Plan: Referral Order SNOMED-CT : [id number] Pending 01/28/2017 Visit Plan: Insomnia - Pt [...] concerns. 01/26/2017 Appointment: [facility]ivas [facility]Ptel: [phone] [facility] (30 min) Complex 01/26/2017 Patient Education: Patient [...] acutely worsen. 01/11/2017 Appointment: Petra Rivas WPtel: [facility] (15 min) Moderate 01/11/2017 Patient Education: Patient [...] on use. 11/30/2016 Appointment: Claudette Savage WPtel: [address] [place] [address] (15 min) Moderate 11/30/2016 Patient Education: Patient Medication Summary Completed 11/30/2016 Patient Education: Obesity Completed 11/30/2016 Care Plan: BMI Above normal followup SELF-MGMT EDUC & TRAIN 1 PT Pending 2016 Visit Plan: Znklgbu-lrdoebjfav-hmkmfajn with increase in cymbalta-no changes Insomnia-RX for belsomra provided and instructed on use Obesity-patient down 15#-no changes-continue diet/exercise-follow up in 2 months 09/28/2016 Appointment: Claudette Savage WPtel: [address] [place] [address] (15 min) Moderate 09/28/2016 Patient Education: Patient Medication Summary Completed 09/28/2016 Patient Education: Obesity Completed 09/28/2016 Care Plan: BMI Above normal followup SELF-MGMT EDUC & TRAIN 1 PT Pending 2016 Visit Plan: Czsfbod-mxzgrhzxeq-frblahvd-increase cymbalta to 60mg daily. Increase xanax as [...] for insomnia/anxiety 08/24/2016 Appointment: Claudette Savage WPtel: [address] [place], [place] [phone] (15 min) Moderate 08/24/2016 Patient Education: Patient [...] not improving. 07/13/2016 Appointment: [phone] (15 min) Moderate 07/13/2016 Patient Education: Patient [...] time insomnia. 05/19/2016 Appointment: [facility]ivas [facility]Ptel: [phone] [facility] (30 min) Complex 05/19/2016 Patient Education: Patient [...] this patient. 03/16/2016 Appointment: Heidy Trejo WPtel: [facility] (15 min) Moderate 03/16/2016 Patient Education: [...] the swab. 02/28/2016 Appointment: Claudette Savage WPtel: [facility] (10 min) Simple 02/28/2016 Patient Education: Patient [...] stop lexapro 01/13/2016 Appointment: Heidy Trejo WPtel: [facility] (15 min) Moderate 01/13/2016 Patient Education: [...] 09/27/2015 Care Plan: Referral Order SNOMED-CT : [id number] Pending 08/31/2015 Visit Plan: Anxiety - the [...] tylenol for break through pain symptoms. 07/15/2015 Visit Plan: Arthritis- occasionally uncontrolled symptoms- [...] if symptoms do not show improvement. 07/15/2015 Appointment: Heidy Trejo WPtel: [facility] (15 min) Moderate 07/15/2015 Patient Education: Patient [...] clinic 04/02/2015 Appointment: Hussein Claudette [facility]el: [phone] [facility] (15 min) Moderate 04/02/2015 Patient Education: Patient [...] Summary Completed 12/02/2014 Referral: Belle Hoffman WPtel: [facility] they will call and set the appt with her Initiated Referral: Maycol Quijano Referral Initiated Referral: Belle Hoffman WPtel: [phone] [facility] Referral Initiated [facility]: [facility] Initiated Instructions Comment . Arthritis- occasionally uncontrolled symptoms- recommend pt to take antiinflammatory as directed for pain control. Use tylenol for break through pain symptoms. . Arthritis- occasionally uncontrolled symptoms- recommend pt [...] if symptoms do not show improvement. . Palpitations - likely anxiety - will [...] pt is to call for acute concerns. contrave website contrave 1 pill nightly x [...] to 2 pills twice daily. stop lexapro pramipexole - 0.5mg - take at bedtime [...] a medication such as mirapex or requip. . Insomnia - Pt has been advised to increase the light in the house during the day, and start dimming the lights during the evening hours. Pt has been advised to cut out caffeine after 5pm. Daytime napping worsens night time insomnia. Changing mole - will refer for removal - pt is to notify clinic with any changes , questions, or concerns. . Left knee pain - ongoing - pt is to follow up with Dr. Haji - pt is to use RICE - Rest, Ice, Compression, Elevation - The pt is to use prn antiinflammatories to manage acute pain. The patient is to call the office if the pain is worsening or does not improve. Obesity - chronic issue with this patient. The pt has been counseled about diet changes, calorie restriction, and need to exercise. Pt will RTC in one month for weight check. Diabetes Mellitus - Uncontrolled - per recent FSBS reports. I have recommended for the patient to have follow up labs prior to the next office visit. The patient has been instructed to continue with current medications as previously directed, continue with regular FSBS monitoring to assure continued control of diabetes. Pt to call for any acute concerns, complaints, or if the blood glucose readings are starting to become less controlled. I have recommended for the patient to follow more strictly to the diabetic diet as discussed in clinic to allow for greater blood glucose control. breathing treatments - 4 times a day x 2 days, then 3 times a day x 2 days, then twice a day x 2 days, then as needed take prednisone 20mg tonight and then start the taper tomorrow . URI - Pt advised to increase [...] spray in the nasal steroid allergy spray. RUQ pain - ongoing - will order gallbladder US and treat or refer as indicated . Chronic Depression and anxiety - the [...] 5pm. Daytime napping worsens night time insomnia. Obesity - chronic issue with this patient. The pt has been counseled about diet changes, calorie restriction, and need to exercise. Pt will RTC in one month for weight check. Knee pain - defer to ortho . Anxiety and Depression - uncontrolled - [...] been appropriately prescribed for this patient. . Anxiety - the patient has uncontrolled [...] - will refer to Dr. Hoffman . Muscle spasms - Will check labs, [...] Daytime napping worsens night time insomnia. . Left knee pain - ongoing - will order MRI and refer as indicated - pt is to use RICE - Rest, Ice, Compression, Elevation - The pt is to use prn antiinflammatories to manage acute pain. The patient is to call the office if the pain is worsening or does not improve. . Right ankle/heel pain - the patient was instructed in appropriate posture, need for weight loss to alleviate abdominal obesity that is worsening the patient's pain. The pt is to use prn antiinflammatories to manage acute pain. The patient is to call the office if the pain is worsening or does not improve. . Chronic Depression and anxiety - the pt has symptoms of chronic anxiety and depression that have been fairly well controlled since the last office visit. The pt has expected periods of exacerbation with abatement of the symptoms with change in situational exposure. No change in current medications. Hypertension - well controlled - continue with current medications, continue with no added salt diet. Pt has been encouraged to exercise daily. The pt has been advised to call the office if there are any acute concerns about change in blood pressure readings at home. Diabetes Mellitus - I have recommended for the patient to have follow up labs prior to the next office visit. The patient has been instructed to continue with current medications as previously directed, continue with regular FSBS monitoring to assure continued control of diabetes. Pt to call for any acute concerns, complaints, or if the blood glucose readings are starting to become less controlled. I have recommended for the patient to follow more strictly to the diabetic diet as discussed in clinic to allow for greater blood glucose control. Kenalog . Strep throat - pt give rx for antibiotic - sent to pharmacy - pt had swab of throat today - will culture the swab. Kenalog . Strep throat - pt give rx for antibiotic - sent to pharmacy - pt had swab of throat today - will culture the swab. Increase Cymbalta from 30 mg/day to 60 mg/day Start Victoza 0.6 mg/day for one week, then increase to 1.2 mg/day for one week , then increase to 1.8 mg/day Patient states understanding of administration instructions. Refill Xanax 1 mg at night for anxiety . Ezmkzqh-mieiyorfnh-qhechidk-increase cymbalta to 60mg daily. Increase xanax as [...] check. Insomnia-increase xanax as directed for insomnia/anxiety . Anxiety and Depression- the patient has [...] benefits of treatment with the above medications. . RUQ pain - pt has had negative gallbladder US - will order HIDA scan - the patient has been counseled against excessive intake of caffeine, spicy foods, peppermint, and cinnamon - all of which can exacerbate esophageal reflux. The patient is to take medications as prescribed and call the office if the symptoms are not improving. 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 . Chronic Depression and anxiety - the [...] cyst - will refer to Dr. Quinn We will check a D-Dimer lab today. [...] CMP, Fasting lipid profile and TSH. . Hypertension - uncontrolled - the patient's medications have been modified as documented in the visit note. The patient has been counseled to cut [...] pt is to call for acute concerns. Edema - pt has been advised to elevate legs to prevent dependent edema, compression has been recommended to help to naturally decrease peripheral edema. Diuretic use has been discussed and pt has been instructed in appropriate use of such medication as necessary to further attempt to reduce peripheral edema. . Hypertension - well controlled - continue [...] for celebrex provided and instructed on use. CALL ME IN 1 MONTH AND LET [...] pain is worsening or does not improve. cymbalta 60mg x 3 days, then cymbalta 30mg x 3 days - then stop the cymbalta and start lexapro 20mg . Anxiety - the patient has uncontrolled anxiety and will benefit from an SSRI on a daily basis to attempt control of the symptoms of anxiety (tachycardia, overwhelming sensations, stress, insomnia, etc). I also believe that the patient will benefit from very low dose of prn benzodiazepine. Pt is aware of the risks and benefits of treatment with the above medications. Depression - uncontrolled - Pt has been counseled about the diagnosis of depression, the potential causes, and risks associated with the diagnosis. The pt denies suicidal ideation, or plans. The patient has been counseled about treatment options, and understands the risks associated with treatment of depression, as well as the risks associated with NOT treating the depression. I believe the pt will benefit from medical intervention and an antidepressant has been appropriately prescribed for this patient. BELSOMRA . Ynfucjj-iqghpwznbq-rddhddub with increase in cymbalta-no changes Insomnia-RX for [...] in 2 weeks for weight check. . Hospital follow up - This was a follow up appointment from the patient's hospitalization during which time Dr. Trejo formulated the assessment and plan for the follow up on this patient's medical condition. Left knee pain - pt is to use RICE - rest, ice, compression, elevation - the patient was instructed in appropriate posture, need for weight loss to alleviate abdominal obesity that is worsening the patient's pain.. The pt is to use prn antiinflammatories to manage acute pain. The patient is to call the office if the pain is worsening or does not improve. . Knee pain - pt is to use RICE - Rest, Ice, Compression, Elevation - pt is to use crutches as directed - The pt is to use prn antiinflammatories to manage acute pain. The patient is to call the office if the pain is worsening or does not improve. . URI - Pt advised to increase [...] spray in the nasal steroid allergy spray. . Chronic Depression and anxiety - the pt has symptoms of chronic anxiety and depression that have been fairly well controlled since the last office visit. The pt has expected periods of exacerbation with abatement of the symptoms with change in situational exposure. No change in current medications.
--- OUTSIDE RECORDS SUMMARY | 2018-07-24 22:54 | XMS REPORT | CCD ---
Author Author [place] Organization [facility] Address [address] [place] [address] Phone Care Team Providers Care Manager Combination Name Role Phone PP Unavailable CCM Unavailable Summary Purpose Interface Exchange Insurance Providers Payer name Policy type / Coverage type Covered green party ID Effective Begin Date Effective End Date [facility] Commercial Insurance [id number] Unknown Family history Brother Diagnosis Age At [...] Description Effective Dates Tobacco history SNOMED CT: 0991548 Quit less than 5 years ago 04/02/2015 Alcohol history Unknown occasionally drinks alcohol 04/02/2015 Marital status Unknown Manuel Vitale 12/02/2014 Number of children Unknown 3 12/02/2014 Allergies, Adverse Reactions, Alerts Substance Reaction Codes Entered Date Inactivated Date Status * NO KNOWN FOOD ALLERGIES Unknown 12/02/2014 No Inactive Date Active Penicillin Unknown 12/02/2014 No Inactive Date Active tramadol RxNorm: 02370 12/02/2014 No Inactive Date Active Past Medical [...] Start Date Stop Date Status Fill Instructions Tamiflu 75 mg capsule RxNorm: 148401 1 Capsule(s) PO BID 201807/21/2018 Active prednisone 20 mg tablet RxNorm: 426949 Tablet(s) PO 07/17/2018 No Stop Date Active 20mg tonight then starting tomorrow: 60,60,40,40,20,20,10,10 Remeron 15 mg tablet RxNorm: 727920 1/2 Tablet(s) PO QHS 201807/11/2019 Active Kenalog 40 mg/mL suspension for injection RxNorm: 1826186 Milliliter(s) Inj 07/17/2018 07/17/2018 Inactive Lexapro 20 mg tablet RxNorm: 232128 1 TABLET(S) PO DAILY 201811/11/2018 Active potassium chloride ER 10 mEq tablet,extended release RxNorm: 117156 1 Tablet(s) PO daily as needed to take when you take the lasix 201808/02/2018 Active Lasix 20 mg tablet RxNorm: 566762 1 Tablet(s) PO daily as needed edema 07/04/2018 08/02/2018 Active Cymbalta 30 mg capsule,delayed release RxNorm: 791289 1 CAPSULE(S) PO DAILY TO BE TAKEN WITH 60MG TO=90MG 07/01/20182018 Inactive hydrochlorothiazide 25 mg tablet RxNorm: 655100 1 TABLET(S) PO DAILY 06/27/2018 09/24/2018 Active Remeron 15 mg tablet RxNorm: 591017 1/2 Tablet(s) PO QHS 201807/16/2018 Inactive Lasix 20 mg tablet RxNorm: 191261 1 Tablet(s) PO daily 201806/21/2018 Inactive potassium chloride ER 10 mEq tablet,extended release RxNorm: 032143 1 Tablet(s) PO daily 06/19/2018 07/03/2018 Inactive Lexapro 20 mg tablet RxNorm: 984295 1 Tablet(s) PO daily 201807/14/2018 Inactive gabapentin 300 mg capsule RxNorm: 646470 1 CAPSULE(S) PO TID 08/12/2018 Active Ambien 10 mg tablet RxNorm: 186409 1 Tablet(s) PO QHS as needed insomnia 06/10/2018 09/07/2018 Active Cymbalta 30 mg capsule,delayed release RxNorm: 667855 1 Capsule(s) PO daily 06/03/2018 06/02/2018 Inactive Cymbalta 30 mg capsule,delayed release RxNorm: 937953 1 Capsule(s) PO daily to be taken with 60mg to=90mg 06/03/20182018 Inactive Protonix 40 mg tablet,delayed release RxNorm: 817205 1 TABLET(S) PO DAILY 05/20/2018 09/16/2018 Active gabapentin 300 mg capsule RxNorm: 759763 1 CAPSULE(S) PO TID 06/13/2018 Inactive Protonix 40 mg tablet,delayed release RxNorm: 216222 1 Tablet(s) PO daily 04/24/2018 05/19/2018 Inactive Zorvolex 35 mg capsule RxNorm: 4507137 TAKE 1 CAPSULE BY MOUTH THREE (3) TIMES DAILY 04/22/2018 08/19/2018 Active hydrochlorothiazide 25 mg tablet RxNorm: 750521 1 TABLET(S) PO DAILY 04/08/2018 06/26/2018 Inactive Zorvolex 35 mg capsule RxNorm: 0925619 TAKE 1 CAPSULE BY MOUTH THREE (3) TIMES DAILY 03/27/2018 04/21/2018 Inactive gabapentin 300 mg capsule RxNorm: 073581 1 CAPSULE(S) PO TID 04/14/2018 Inactive hydrochlorothiazide 25 mg tablet RxNorm: 178286 1 Tablet(s) PO daily 03/14/2018 04/07/2018 Inactive Victoza 2-Marek 0.6 mg/0.1 mL (18 mg/3 mL) subcutaneous pen injector RxNorm: 109190 Milligram(s) INJECT 1.8 MG SUB-Q ONCE DAILY 02/27/2018 08/20/2019 Active qty sufficient Xanax 1 mg tablet RxNorm: 320152 1-2 Tablet(s) PO QHS as needed insomnia 02/27/2018 05/27/2018 Inactive atorvastatin 20 mg tablet RxNorm: 792857 1 Tablet(s) PO daily 02/27/2018 05/22/2019 Active Cymbalta 60 mg capsule,delayed release RxNorm: 939059 TAKE 1 CAPSULE BY MOUTH DAILY 02/27/2018 02/26/2018 Inactive Cymbalta 60 mg capsule,delayed release RxNorm: 516486 1 Capsule(s) PO daily TAKE 1 CAPSULE BY MOUTH DAILY 02/27/20182018 Inactive gabapentin 300 mg capsule RxNorm: 276172 1 Capsule(s) PO TID 03/24/2018 Inactive meloxicam 7.5 mg tablet RxNorm: 694555 1 Tablet(s) PO daily 1 TABLET(S) PO DAILY 02/27/2018 04/14/2018 Inactive Ambien 10 mg tablet RxNorm: 818330 1 Tablet(s) PO QHS as needed insomnia 02/27/2018 05/25/2018 Inactive atorvastatin 20 mg tablet RxNorm: 870509 1 Tablet(s) PO daily 02/05/2018 02/26/2018 Inactive atorvastatin 20 mg tablet RxNorm: 909060 1 Tablet(s) PO daily 02/05/2018 02/04/2018 Inactive meloxicam 7.5 mg tablet RxNorm: 751813 1 TABLET(S) PO DAILY 02/26/2018 Inactive oxycodone 15 mg tablet RxNorm: 5174348 1 Tablet(s) PO QID as needed 01/07/2018 02/19/2018 Inactive lactulose 20 gram/30 mL oral solution RxNorm: 420300 15-30 Milliliter(s) PO BID as needed 12/31/2017 02/20/2018 Inactive meloxicam 7.5 mg tablet RxNorm: 863580 1 TABLET(S) PO DAILY 06/201701/31/2018 Inactive Zorvolex 35 mg capsule RxNorm: 1615313 1 Capsule(s) PO TID 06/201702/20/2018 Inactive Ambien 10 mg tablet RxNorm: 579976 1 Tablet(s) PO QHS as needed insomnia 12/04/2017 02/26/2018 Inactive oxycodone 15 mg tablet RxNorm: 0136343 1 Tablet(s) PO QID as needed 12/04/2017 01/06/2018 Inactive prednisone 20 mg tablet RxNorm: 434904 2 Tablet(s) PO daily 12/08/2017 Inactive Victoza 2-Marek 0.6 mg/0.1 mL (18 mg/3 mL) subcutaneous pen injector RxNorm: 821334 Milligram(s) INJECT 1.8 MG SUB-Q ONCE DAILY 11/20/2017 02/26/2018 Inactive meloxicam 7.5 mg tablet RxNorm: 418070 1 Tablet(s) PO daily 02/201812/12/2017 Inactive phentermine 37.5 mg tablet RxNorm: 454736 1 Tablet(s) PO daily 11/20/2017 12/19/2017 Inactive Ambien 10 mg tablet RxNorm: 698232 1 Tablet(s) PO QHS as needed insomnia 11/20/2017 12/18/2017 Inactive Xanax 1 mg tablet RxNorm: 002666 1.5 Tablet(s) PO QHS as needed insomnia 11/20/2017 02/26/2018 Inactive hydrocodone 7.5 mg-acetaminophen 325 mg tablet RxNorm: 835726 1 Tablet(s) PO TID as needed 11/16/2017 01/06/2018 Inactive Cymbalta 60 mg capsule,delayed release RxNorm: 038446 TAKE 1 CAPSULE BY MOUTH DAILY 11/02/2017 02/26/2018 Inactive Xanax 1 mg tablet RxNorm: 452111 1 Tablet(s) PO BID PRN as needed anxiety 10/04/2017 11/19/2017 Inactive Victoza 2-Marek 0.6 mg/0.1 mL (18 mg/3 mL) subcutaneous pen injector RxNorm: 632701 INJECT 1.8 MG SUB-Q ONCE DAILY 10/04/2017 11/19/2017 Inactive hydrocodone 7.5 mg-acetaminophen 325 mg tablet RxNorm: 016618 1 Tablet(s) PO TID as needed 09/17/2017 11/15/2017 Inactive hydrocodone 7.5 mg-acetaminophen 325 mg tablet RxNorm: 232406 1 Tablet(s) PO TID as needed 09/10/2017 09/16/2017 Inactive prednisone 10 mg tablet RxNorm: 526431 Tablet(s) PO 09/10/2017 11/13/2017 Inactive 6, 5,4,3,2,1 Zorvolex 35 mg capsule RxNorm: 0410571 1 Capsule(s) PO TID 11/13/2017 Inactive Ambien 10 mg tablet RxNorm: 646548 1 Tablet(s) PO QHS as needed insomnia 08/29/2017 11/19/2017 Inactive Zorvolex 35 mg capsule RxNorm: 6497551 1 Capsule(s) PO TID 09/06/2017 Inactive Zorvolex 35 mg capsule RxNorm: 6842849 1 Capsule(s) PO TID 06/201708/27/2017 Inactive Zorvolex 35 mg capsule RxNorm: 8769607 1 Capsule(s) PO TID 06/201708/12/2017 Inactive prednisone 20 mg tablet RxNorm: 807293 2 Tablet(s) PO daily 08/04/2017 Inactive hydrocodone 7.5 mg-acetaminophen 325 mg tablet RxNorm: 512977 1 Tablet(s) PO TID as needed 07/31/2017 09/09/2017 Inactive Zorvolex 35 mg capsule RxNorm: 2332711 1 Capsule(s) PO TID as needed 07/31/2017 11/13/2017 Inactive ceftriaxone 500 mg solution for injection RxNorm: 7842524 1 Milliliter(s) Inj 06/27/2017 06/27/2017 Inactive Keflex 500 mg capsule RxNorm: 321652 1 Capsule(s) PO TID 201707/03/2017 Inactive Ambien 10 mg tablet RxNorm: 138209 1 Tablet(s) PO daily 201708/25/2017 Inactive tramadol 50 mg tablet RxNorm: 953314 1 Tablet(s) PO TID as needed 05/29/2017 07/27/2017 Inactive Xanax 1 mg tablet RxNorm: 463296 1 Tablet(s) PO BID PRN as needed anxiety 05/21/2017 10/03/2017 Inactive alprazolam 1 mg tablet RxNorm: 295004 1 Tablet(s) PO BID as needed 05/21/2017 06/19/2017 Inactive Celebrex 200 mg capsule RxNorm: 306579 1 CAPSULE(S) PO BID 11/05/2017 Inactive prednisone 20 mg tablet RxNorm: 697786 2 Tablet(s) PO daily 12/201604/24/2017 Inactive Ambien 10 mg tablet RxNorm: 010773 Tablet(s) PO 04/20/2017 05/28/2017 Inactive hydrocodone 5 mg-acetaminophen 325 mg tablet RxNorm: 650825 1 Tablet(s) PO QID as needed 04/20/2017 08/01/2017 Inactive Cymbalta 60 mg capsule,delayed release RxNorm: 860216 1 Capsule(s) PO daily 04/20/2017 02/26/2018 Inactive Victoza 2-Marek 0.6 mg/0.1 mL (18 mg/3 mL) subcutaneous pen injector RxNorm: 553862 INJECT 1.8 MG SUB-Q ONCE DAILY 03/26/2017 09/21/2017 Inactive diazepam 2 mg tablet RxNorm: 763852 1 Tablet(s) PO QHS as needed insomnia 01/28/2017 05/07/2017 Inactive Victoza 2-Marek 0.6 mg/0.1 mL (18 mg/3 mL) subcutaneous pen injector RxNorm: 417792 1.8 Milligram(s) SQ daily 01/26/201703/25 Inactive dispense quantity sufficient Tussionex Pennkinetic ER 10 mg-8 mg/5 mL suspension, extended release RxNorm: 2950229 5 Milliliter(s) PO BID 01/11/2017 01/15/2017 Inactive Xanax 1 mg tablet RxNorm: 704824 1 Tablet(s) PO BID PRN as needed anxiety 01/11/2017 05/20/2017 Inactive Zithromax Z-Marek 250 mg tablet RxNorm: 702536 1 Tablet(s) PO UD 01/11/2017 01/15/2017 Inactive zpack albuterol sulfate 2.5 mg/3 mL (0.083 %) solution for nebulization RxNorm: 660344 3 Milliliter(s) INH UD 01/11/201707/2017 Inactive prednisone 20 mg tablet RxNorm: 832487 2 Tablet(s) PO daily 01/15/2017 Inactive Kenalog 40 mg/mL suspension for injection RxNorm: 3236112 1.5 Milliliter(s) Inj 01/11/2017 01/11/2017 Inactive Celebrex 200 mg capsule RxNorm: 669556 1 Capsule(s) PO BID 02/27/2017 Inactive Ambien 5 mg tablet RxNorm: 414535 1 Tablet(s) PO HS PRN 11/3008/07/2017 Inactive trazodone 50 mg tablet RxNorm: 374238 1/2 to 1 Tablet(s) PO QHS 10/13/2016 10/12/2016 Inactive trazodone 50 mg tablet RxNorm: 399053 1/2 to 1 Tablet(s) PO QHS 10/13/2016 11/29/2016 Inactive Belsomra 10 mg tablet RxNorm: 5183377 1 Tablet(s) PO QHS 201611/29/2016 Inactive may increase to 20mg if 10mg not effective Cymbalta 60 mg capsule,delayed release RxNorm: 553521 1 Capsule(s) PO daily 08/24/2016 03/21/2017 Inactive Xanax 1 mg tablet RxNorm: 889193 1 Tablet(s) PO BID PRN as needed anxiety 08/24/2016 01/10/2017 Inactive Victoza 2-Marek 0.6 mg/0.1 mL (18 mg/3 mL) subcutaneous pen injector RxNorm: 385237 Milligram(s) SQ 08/24/2016 08/23/2016 Inactive Victoza 2-Marek 0.6 mg/0.1 mL (18 mg/3 mL) subcutaneous pen injector RxNorm: 892740 1.8 Milligram(s) SQ 08/24/2016 01/25/2017 Inactive Vitamin D2 50,000 unit capsule RxNorm: 295608 1 Capsule(s) PO QW 07/13/2016 10/10/2016 Inactive Cymbalta 30 mg capsule,delayed release RxNorm: 206740 1 Capsule(s) PO daily 07/13/2016 08/23/2016 Inactive Belviq XR 20 mg tablet,extended release RxNorm: 0344588 1 Tablet(s) PO daily 05/30/2016 05/29/2016 Inactive prednisone 20 mg tablet RxNorm: 582437 2 Tablet(s) PO daily 06/03/2016 Inactive prednisone 20 mg tablet RxNorm: 870814 2 Tablet(s) PO daily 05/29/2016 Inactive Belviq XR 20 mg tablet,extended release RxNorm: 5425875 1 Tablet(s) PO daily 05/30/2016 06/28/2016 Inactive cyclobenzaprine 5 mg tablet RxNorm: 044536 1-2 Tablet(s) PO TID as needed 05/19/2016 05/23/2016 Inactive metoprolol succinate ER 25 mg tablet,extended release 24 hr RxNorm: 658746 1 Tablet(s) PO QPM 04/10/2016 04/13/2016 Inactive metoprolol succinate ER 25 mg tablet,extended release 24 hr RxNorm: 439813 1 Tablet(s) PO QPM 04/10/2016 04/09/2016 Inactive escitalopram 10 mg tablet RxNorm: 612552 1 Tablet(s) PO daily 03/16/2016 07/12/2016 Inactive estradiol 1 mg tablet RxNorm: 452973 1 Tablet(s) PO every other day 03/16/2016 05/15/2016 Inactive Kenalog 40 mg/mL suspension for injection RxNorm: 0090778 Milliliter(s) Inj 02/28/2016 02/28/2016 Inactive Zithromax Z-Marek 250 mg tablet RxNorm: 002640 1 Tablet(s) PO UD 02/28/2016 03/03/2016 Inactive zpack Lexapro 10 mg tablet RxNorm: 843934 1 Tablet(s) PO daily 201502/27/2016 Inactive Lexapro 10 mg tablet RxNorm: 199261 1 Tablet(s) PO daily 201509/26/2015 Inactive Vimovo 500 mg-20 mg tablet,immediate and delay release RxNorm: 389152 1 Tablet(s) PO BID as needed for pain 08/30/201509/25 Inactive azithromycin 250 mg tablet RxNorm: 617693 1 Tablet(s) PO UD 2 pills on day #1, then one pill daily x 4 days 07/15/2015 Inactive hydrocodone 10 mg-acetaminophen 325 mg tablet RxNorm: 591808 1 Tablet(s) PO QID 06/16/2015 01/12/2016 Inactive pramipexole 0.5 mg tablet RxNorm: 413525 1 Tablet(s) PO QPM 07/201507/14/2015 Inactive Celebrex 200 mg capsule RxNorm: 697453 1 Capsule(s) PO daily 05/02/2015 Inactive Celebrex 200 mg capsule RxNorm: 386238 1 Capsule(s) PO daily 01/12/2016 Inactive hydrocodone 7.5 mg-acetaminophen 325 mg tablet RxNorm: 314995 1 Tablet(s) PO Q6 PRN 05/03/2015 06/15/2015 Inactive Mobic 15 mg tablet RxNorm: 980461 1 Tablet(s) PO daily 201405/02/2015 Inactive hydrocodone 7.5 mg-acetaminophen 325 mg tablet RxNorm: 642132 1 Tablet(s) PO Q6 PRN 04/02/2015 05/02/2015 Inactive hydrocodone 5 mg-acetaminophen 325 mg tablet RxNorm: 290747 1 Tablet(s) PO Q6 as needed 12/11/2014 04/01/2015 Inactive Pennsaid 1.5 % topical drops RxNorm: 548356 40 Drop(s) TOP QID as needed 12/07/2014 02/04/2015 Inactive Apply 40 drops to each knee joint 4 times per day as needed for osteoarthritis pain estradiol 1 mg tablet RxNorm: 142567 1 Tablet(s) PO QHS No Start Date 03/15/2016 Inactive Xanax 0.5 mg tablet RxNorm: 453524 1 Tablet(s) PO Q6 as needed anxiety No Start Date 08/23/2016 Inactive Tylenol Extra Strength 500 mg tablet RxNorm: 634419 3 Tablet(s) PO BID after breakfast and after lunch No Start Date Inactive lactulose 20 gram/30 mL oral solution RxNorm: 813533 15-30 Milliliter(s) PO BID as needed No Start Date 12/30/2017 Inactive hydrocodone 5 mg-acetaminophen 325 mg tablet RxNorm: 858154 1 Tablet(s) PO Q6 as needed No Start Date 12/10/2014 Inactive Phenergan-Codeine syrup RxNorm: 5-10 Milliliter(s) PO QID as needed No Start Date 11/13/2017 Inactive ibuprofen 200 mg capsule RxNorm: 884450 4 Capsule(s) PO QID as needed No Start Date 04/01/2015 Inactive Medication Administered Medication Codes Instructions Start Date Status Kenalog 40 mg/mL suspension for injection RxNorm: 9377820 Milliliter 07/17/2018 No longer Active ceftriaxone 500 mg solution for injection RxNorm: 5255170 1Milliliter 06/27/2017 No longer Active Kenalog 40 mg/mL suspension for injection RxNorm: 1890453 1.5Milliliter 01/11/2017 No longer Active Kenalog 40 mg/mL suspension for injection RxNorm: 0717807 Milliliter 02/28/2016 No longer Active Immunizations Vaccine [...] Item Item Code Result Date Influenza A+B Orh797 Influ A+B Pos Influenza A 07/17/2018 %Hba1C Xcp183 % HbA1c 43775-2 6.7 % 11/20/2017 %Hba1C Sqp280 Gluc Ave 146 mg/dL 11/20/2017 Free T4 Ntv446 FREE T4 0.76 ng/dL 05/21/2017 Tsh Ord6 hTSH II 1.27 uIU/mL 05/21/2017 Comp Metabolic Edv096 NA 140 mEq/L 05/21/2017 Comp Metabolic Qpt003 K 3.9 mEq/L 05/21/2017 Comp Metabolic Zrl332 CL 101 mEq/L 05/21/2017 Comp Metabolic Zgv219 CO2 28.0 mEq/L 05/21/2017 Comp Metabolic Sfk497 ANION GAP 15 05/21/2017 Comp Metabolic Nkp442 GLUCOSE 155 mg/dL 05/21/2017 Comp Metabolic Ciz711 Creat 0.7 mg/dL 05/21/2017 Comp Metabolic Fqs498 eGFR 87 ml/min/1.73m2 05/21/2017 Comp Metabolic Szi857 BUN 16 mg/dL 05/21/2017 Comp Metabolic Hvy899 B/C Ratio 21.6 Ratio 05/21/2017 Comp Metabolic Fss603 CALCIUM 9.4 mg/dL 05/21/2017 Comp Metabolic Kyf999 ALK PHOS 132 U/L 05/21/2017 Comp Metabolic Kzd604 AST(SGOT) 16 U/L 05/21/2017 Comp Metabolic Tyq038 ALT(SGPT) 20 U/L 05/21/2017 Comp Metabolic Moc945 BILI T 0.4 mg/dL 05/21/2017 Comp Metabolic Dsd639 ALBUMIN 4.0 g/dL 05/21/2017 Comp Metabolic Uqu186 TPRO 6.7 g/dL 05/21/2017 Comp Metabolic Ihd587 GLOB 2.7 g/dL 05/21/2017 Comp Metabolic Bzt505 A/G Ratio 1.5 Ratio 05/21/2017 Comp Metabolic Bys750 Osmo 284 mOsmo 05/21/2017 Cbc With Differential [...] 28.9 pg 05/21/2017 Cbc With Differential Ord2 [place]% 5.5 % 05/21/2017 Cbc With Differential Ord2 [...] K/ul 05/21/2017 Cbc With Differential Ord2 [place] ABS# 0.8 K/ul 05/21/2017 Cbc With Differential Ord2 Eos ABS# 0.1 K/ul 05/21/2017 Cbc With Differential Ord2 Baso ABS# 0.0 K/ul 05/21/2017 Estrogens Total 131435 ESTROGENS, TOTAL 54 pg/mL 05/24/2016 Magnesium Ord90 Mag 1.8 mg/dL 05/19/2016 Tsh Ord6 hTSH II 1.56 uIU/mL 05/19/2016 Progesterone Prog 0.03 ng/mL 05/19/2016 Comp Metabolic Fej020 NA 136 mEq/L 05/19/2016 Comp Metabolic Wqh059 K 4.3 mEq/L 05/19/2016 Comp Metabolic Ypp416 CL 100 mEq/L 05/19/2016 Comp Metabolic Cif053 CO2 28.0 mEq/L 05/19/2016 Comp Metabolic Kmv276 ANION GAP 12 05/19/2016 Comp Metabolic Vlw190 GLUCOSE 138 mg/dL 05/19/2016 Comp Metabolic Dlz840 Creat 0.7 mg/dL 05/19/2016 Comp Metabolic Dhd785 eGFR 89 ml/min/1.73m2 05/19/2016 Comp Metabolic Yvb962 BUN 15 mg/dL 05/19/2016 Comp Metabolic Gbg434 B/C Ratio 20.5 Ratio 05/19/2016 Comp Metabolic Pbj640 CALCIUM 9.7 mg/dL 05/19/2016 Comp Metabolic Zrb055 ALK PHOS 106 U/L 05/19/2016 Comp Metabolic Tvb645 AST(SGOT) 21 U/L 05/19/2016 Comp Metabolic Dmu342 ALT(SGPT) 24 U/L 05/19/2016 Comp Metabolic Nxb917 BILI T 0.4 mg/dL 05/19/2016 Comp Metabolic Vql643 ALBUMIN 4.1 g/dL 05/19/2016 Comp Metabolic Uvx948 TPRO 7.1 g/dL 05/19/2016 Comp Metabolic Xty587 GLOB 3.0 g/dL 05/19/2016 Comp Metabolic Zyb750 A/G Ratio 1.4 Ratio 05/19/2016 Comp Metabolic Gzc273 Osmo 275 mOsmo 05/19/2016 Cbc With Differential [...] 0.0 K/ul 05/19/2016 C RAP A SC 4063744 Strep A Negative 02/28/2016 Tsh Ord6 hTSH [...] part differential hematolgy analyzer. 08/16/2015 Comp Metabolic Hpm129 NA 132 mEq/L 08/16/2015 Comp Metabolic Vgi443 K 3.6 mEq/L 08/16/2015 Comp Metabolic Fde242 CL 99 mEq/L 08/16/2015 Comp Metabolic Hoy411 CO2 23.0 mEq/L 08/16/2015 Comp Metabolic Lmo778 ANION GAP 14 08/16/2015 Comp Metabolic Uzh460 GLUCOSE 101 mg/dL 08/16/2015 Comp Metabolic Plr771 Creat 0.7 mg/dL 08/16/2015 Comp Metabolic Dgn094 eGFR 100 ml/min/1.73m2 08/16/2015 Comp Metabolic Xnw235 BUN 10 mg/dL 08/16/2015 Comp Metabolic Uft894 B/C Ratio 15.2 Ratio 08/16/2015 Comp Metabolic Scc779 CALCIUM 9.3 mg/dL 08/16/2015 Comp Metabolic Rmh750 ALK PHOS 100 U/L 08/16/2015 Comp Metabolic Rgb686 AST(SGOT) 14 U/L 08/16/2015 Comp Metabolic Rnk002 ALT(SGPT) 11 U/L 08/16/2015 Comp Metabolic Xow748 BILI T 0.3 mg/dL 08/16/2015 Comp Metabolic Shm948 ALBUMIN 3.9 g/dL 08/16/2015 Comp Metabolic Cef048 TPRO 7.1 g/dL 08/16/2015 Comp Metabolic Ska221 GLOB 3.2 g/dL 08/16/2015 Comp Metabolic Zzc638 A/G Ratio 1.2 Ratio 08/16/2015 Comp Metabolic Rja135 Osmo 264 mOsmo 08/16/2015 Lipid Ord30 CHOL 209 mg/dL 12/03/2014 Lipid Ord30 HDL 42.0 mg/dl 12/03/2014 Lipid Ord30 TRIG 219 mg/dL 12/03/2014 Lipid Ord30 LDL 123 mg/dL 12/03/2014 Lipid Ord30 C/HDL 5.0 Ratio 12/03/2014 Comp Metabolic Eqn509 NA 132 mEq/L 12/03/2014 Comp Metabolic Uzo657 K 4.0 mEq/L 12/03/2014 Comp Metabolic Bsj048 CL 101 mEq/L 12/03/2014 Comp Metabolic Qhw776 CO2 22.0 mEq/L 12/03/2014 Comp Metabolic Jdl402 ANION GAP 13 12/03/2014 Comp Metabolic Ipx857 GLUCOSE 123 mg/dL 12/03/2014 Comp Metabolic Wdu865 Creat 0.7 mg/dL 12/03/2014 Comp Metabolic Enl958 eGFR 97 ml/min/1.73m2 12/03/2014 Comp Metabolic Rpx026 BUN 10 mg/dL 12/03/2014 Comp Metabolic Xfk939 B/C Ratio 14.7 Ratio 12/03/2014 Comp Metabolic Mhv329 CALCIUM 9.2 mg/dL 12/03/2014 Comp Metabolic Zdq587 ALK PHOS 88 U/L 12/03/2014 Comp Metabolic Jet231 AST(SGOT) 18 U/L 12/03/2014 Comp Metabolic Ebl654 ALT(SGPT) 17 U/L 12/03/2014 Comp Metabolic Xqy745 BILI T 0.5 mg/dL 12/03/2014 Comp Metabolic Vkn095 ALBUMIN 3.9 g/dL 12/03/2014 Comp Metabolic Xme945 TPRO 6.8 g/dL 12/03/2014 Comp Metabolic Gam577 GLOB 2.9 g/dL 12/03/2014 Comp Metabolic Ukd149 A/G Ratio 1.3 Ratio 12/03/2014 Comp Metabolic Gtq844 Osmo 265 mOsmo 12/03/2014 Tsh Ord6 hTSH II 1.13 uIU/mL 12/03/2014 D-Dimer 532138 D-DIMER 168 NG/ML 12/03/2014 D-Dimer [id number] COMMENT 12/03/2014 Cbc With Differential Ord2 WBC [...] Procedure Codes Date THER/PROPH/DIAG INJ SC/IM CPT-4: 09643 07/17/2018 TRIAMCINOLONE ACET INJ NOS CPT-4: J3301 07/17/2018 THER/PROPH/DIAG INJ SC/IM CPT-4: 38723 06/27/2017 ROCEPHIN, PER 250 MG CPT-4: J0696 06/27/2017 IMMUNIZATION ADMIN CPT -4: 12744 03/16/2017 FLU VAC NO PRSV 4 FLETCHER 3 YRS+ CPT-4: 97887 03/16/2017 Pneumococcal Polysaccharide Vaccine, 23-Valent, Ad CPT-4: 55382 03/16/2017 IMMUNIZATION ADMIN EACH ADD CPT-4: 81796 03/16/2017 TRIAMCINOLONE ACET INJ NOS CPT-4: J3301 01/11/2017 TRIAMCINOLONE ACET INJ NOS CPT-4: J3301 02/28/2016 Vital Signs Date Vital 07/17/2018 Blood Pressure 1: 126/72 Code : 8480-6 BMI: 38.6 Code : 61743-4 Heart Rate 1 : 85 bpm Height: 5'6" SpO2: 95% Temperature: 36.9 (C) / 98.4 (F) Weight: 239 lbs 07/04/2018 Blood Pressure 1: 132/76 Code : 8480-6 Heart Rate 1: 80 bpm Height: SpO2: 97% Weight: 06/19/2018 Blood Pressure 1: 12474 Code : 8480-6 BMI: 38.6 Code : 65659-2 Heart Rate 1 : 85 bpm Height: 5'6" SpO2: 95% Weight: 239 lbs 04/24/2018 Blood Pressure 1: 12874 Code : 8480-6 BMI: 37.8 Code : 26422-6 Heart Rate 1 : 107 bpm Height: 5'6" SpO2: 98% Weight: 234 lbs 04/17/2018 Blood Pressure 1: 120/64 Code : 8480-6 BMI: 37.8 Code : 75447-5 Heart Rate 1 : 84 bpm Height: 5'6" SpO2: 96% Weight: 234 lbs 03/14/2018 Blood Pressure 1: 140/82 Code : 8480-6 BMI: 37.8 Code : 76476-8 Heart Rate 1 : 85 bpm Height: 5'6" SpO2: 98% Weight: 234 lbs 02/27/2018 Blood Pressure 1: 142/68 Code : 8480-6 BMI: 36.5 Code : 30206-0 Heart Rate 1 : 84 bpm Height: 5'6" SpO2: 97% Weight: 226 lbs 12/19/2017 Blood Pressure 1: 130/86 Code : 8480-6 BMI: 35.7 Code : 05522-4 Heart Rate 1 : 94 bpm Height: 5'6" Weight: 221 lbs 12/04/2017 Blood Pressure 1: 138/78 Code : 8480-6 BMI: 36.6 Code : 63416-4 Heart Rate 1 : 94 bpm Height: 5'6" SpO2: 98% Weight: 227 lbs 11/20/2017 Weight: 233 lbs 09/10/2017 Blood Pressure 1: 132/86 Code : 8480-6 Heart Rate 1: 86 bpm Height: Weight: 08/14/2017 Blood Pressure 1: 120/74 Code : 8480-6 BMI: 33.9 Code : 25709-7 Heart Rate 1 : 92 bpm Height: 5'6" SpO2: 94% Weight: 210 lbs 07/31/2017 Blood Pressure 1: 140/80 Code : 8480-6 BMI: 33.9 Code : 87040-8 Heart Rate 1 : 96 bpm Height: 5'6" SpO2: 97% Weight: 210 lbs 06/27/2017 Blood Pressure 1: 128/80 Code : 8480-6 BMI: 33.9 Code : 89470-5 Heart Rate 1 : 85 bpm Height: [...] Code : 8480-6 BMI: 39.9 Code : 62989-9 Heart Rate 1 : 79 bpm Height: 5'6" SpO2: 97% Weight: 247 lbs 01/26/2017 Blood Pressure 1: 132/74 Code : 8480-6 BMI: 37.8 Code : 20673-8 Heart Rate 1 : 74 bpm Height: 5'6" SpO2: 97% Weight: 234 lbs 01/11/2017 Blood Pressure 1: 118/68 Code : 8480-6 BMI: 38.7 Code : 02507-9 Heart Rate 1 : 91 bpm Height: 5'6" SpO2: 96% Weight: 240 lbs 11/30/2016 Blood Pressure 1: 132/76 Code : 8480-6 BMI: 38.3 Code : 63245-4 Heart Rate 1 : 71 bpm Height: 5'6" SpO2: 92% Weight: 237 lbs 09/28/2016 Blood Pressure 1: 122/72 Code : 8480-6 BMI: 39.1 Code : 84059-4 Heart Rate 1 : 88 bpm Height: 5'6" SpO2: 94% Weight: 242 lbs 08/24/2016 Blood Pressure 1: 130/87 Code : 8480-6 BMI: 41.5 Code : 30508-0 Heart Rate 1 : 95 bpm Height: 5'6" Respiratory Rate: 16 bpm SpO2: 98% Temperature: 36.9 (C) / 98.5 (F ) Weight: 257 lbs 07/13/2016 Blood Pressure 1: 132/84 Code : 8480-6 BMI: 42.0 Code : 47355-8 Heart Rate 1 : 73 bpm Height: 5'6" SpO2: 97% Weight: 260 lbs 05/19/2016 Blood Pressure 1: 138/76 Code : 8480-6 BMI: 40.8 Code : 75461-0 Heart Rate 1 : 80 bpm Height: 5'6" SpO2: 98% Weight: 253 lbs 03/16/2016 Blood Pressure 1: 122/70 Code : 8480-6 BMI: 40.4 Code : 10461-7 Heart Rate 1 : 72 bpm Height: 5'6" SpO2: 98% Weight: 250 lbs 02/28/2016 Blood Pressure 1: 136/86 Code : 8480-6 BMI: 40.2 Code : 94973-4 Heart Rate 1 : 87 bpm Height: 5'6" SpO2: 96% Temperature: 36.3 (C) / 97.3 (F) Weight: 249 lbs 01/13/2016 Blood Pressure 1: 120/76 Code : 8480-6 BMI: 40.4 Code : 91287-2 Heart Rate 1 : 68 bpm Height: 5'6" SpO2: 97% Weight: 250 lbs 09/27/2015 Blood Pressure 1: 112/70 Code : 8480-6 BMI: 38.4 Code : 68122-9 Heart Rate 1 : 76 bpm Height: 5'6" SpO2: 98% Weight: 238 lbs 08/30/2015 Blood Pressure 1: 144/82 Code : 8480-6 BMI: 39.5 Code : 25387-9 Heart Rate 1 : 82 bpm Height: 5'6" SpO2: 97% Weight: 245 lbs 08/16/2015 Blood Pressure 1: 140/72 Code : 8480-6 BMI: 38.9 Code : 48915-4 Heart Rate 1 : 72 bpm Height: 5'6" SpO2: 97% Weight: 241 lbs 07/15/2015 Blood Pressure 1: 128/80 Code : 8480-6 BMI: 39.3 Code : 21069-7 Heart Rate 1 : 86 bpm Height: 5'6" SpO2: 98% Weight: 243 lbs 8 oz 06/16/2015 Blood Pressure 1: 146/86 Code : 8480-6 BMI: 39.6 Code : 97954-3 Heart Rate 1 : 76 bpm Height: 5'6" SpO2: 97% Weight: 245 lbs 8 oz 04/02/2015 Blood Pressure 1: 132/86 Code : 8480-6 BMI: 40.7 Code : 36823-9 Heart Rate 1 : 94 bpm Height: 5'6" SpO2: 98% Weight: 252 lbs 12/02/2014 Blood Pressure 1: 122/90 Code : 8480-6 BMI: 41.6 Code : 53605-2 Heart Rate 1 : 77 bpm Height: [...] pain[ICD10: R10.11] [facility] CPT-4: 33698 07/17/2018 56792 EST. PATIENT, LEVEL III Diagnosis: Generalized anxiety disorder[ICD10: F41.1] Diagnosis: Major depressive disorder, single episode, moderate[ICD10: F32.1] [facility] CPT-4: 69606 07/04/2018 35480 EST. PATIENT, LEVEL IV Diagnosis: Generalized anxiety disorder[ICD10: F41.1] Diagnosis: Major depressive disorder, single episode, moderate[ICD10: F32.1] Diagnosis: Other insomnia[ICD10: G47.09] Petra Trejo MD, [facility] CPT-4 : 93294 06/19/2018 35024 EST. PATIENT, LEVEL IV Diagnosis: Right upper quadrant pain[ICD10: R10.11] Diagnosis: Other chest pain[ICD10: R07.89] Petra Trejo MD, [facility] CPT-4 : 22702 04/24/2018 28304 EST. PATIENT, LEVEL III Diagnosis: Generalized anxiety disorder[ICD10: F41.1] Diagnosis: Major depressive disorder, recurrent, mild[ICD10: F33.0] Diagnosis: Essential (primary) hypertension[ICD10: I10] Diagnosis: Type 2 diabetes mellitus without complications[ICD10: E11.9] Petra Trejo MD , [facility] CPT-4: 45314 04/17/2018 17328 EST. PATIENT, LEVEL III Diagnosis: Localized edema[ICD10: R60.0] Diagnosis: Essential (primary) hypertension[ICD10: I10] Petra Trejo MD, [facility] CPT-4: 56440 03/14/2018 70922 EST. PATIENT, LEVEL III Diagnosis: Pain in left knee[ICD10: M25.562] Diagnosis: Other obesity due to excess calories[ICD10: E66.09] Diagnosis: Other insomnia[ICD10: G47.09] Diagnosis: Generalized anxiety disorder[ICD10: F41.1] Petra Trejo MD, [facility] CPT-4: 76338 02/27/2018 ([id number]) Miscellaneous no charge Diagnosis: Other obesity due to excess calories[ICD10: E66.09] Heidy Trejo MD, [facility] CPT-4: 15658 12/19/2017 70157 EST. PATIENT, LEVEL III Diagnosis: Pain in right foot[ICD10: M79.671] Diagnosis: Pain in right ankle and joints of right foot[ICD10: M25.571] Petra Trejo MD , [facility] CPT-4: 35236 12/04/2017 12150 EST. PATIENT, LEVEL III Diagnosis: Pain in left knee[ICD10: M25.562] Diagnosis: Type 2 diabetes mellitus without complications[ICD10: E11.9] Diagnosis: Other obesity due to excess calories[ICD10: E66.09] ePtra Trejo MD, [facility] CPT-4: 57229 11/20/2017 48669 EST. PATIENT, LEVEL III Diagnosis: Pain in left knee[ICD10: M25.562] Petra Trejo MD, [facility] CPT -4: 50749 09/10/2017 30573 EST. PATIENT, LEVEL III Diagnosis: Encounter for follow-up examination after completed treatment for conditions other than malignant neoplasm[ICD10: Z09] Diagnosis: Pain in left knee[ICD10: M25.562] Petra Trejo MD, [facility] CPT -4: 17005 08/14/2017 87767 EST. PATIENT, LEVEL III Diagnosis: Pain in left knee[ICD10: M25.562] Petra Trejo MD, [facility] CPT -4: 96714 07/31/2017 97746 EST. PATIENT, LEVEL III Diagnosis: Acute laryngopharyngitis[ICD10: J06.0] Diagnosis: Other allergic rhinitis[ICD10: J30.89] Petra Trejo MD, [facility] CPT-4: 06973 06/27/2017 18596 EST. PATIENT, LEVEL III Diagnosis: Ganglion, left hand[ICD10: M67.442] Diagnosis: Essential (primary) hypertension[ICD10: I10] Diagnosis: Generalized anxiety disorder[ICD10: F41.1] Diagnosis: Other insomnia[ICD10: G47.09] Petra Trejo MD, [facility] CPT-4 : 91042 05/29/2017 41434 EST. PATIENT, LEVEL III Diagnosis: Essential (primary) hypertension[ICD10: I10] Diagnosis: Palpitations[ICD10: R00.2] Diagnosis: Generalized anxiety disorder[ICD10: F41.1] Petra Trejo MD, [facility] CPT-4: 78983 05/21/2017 88508 EST. PATIENT, LEVEL III Diagnosis: Pain in right foot[ICD10: M79.671] Petra Trejo MD, [facility] CPT-4: 87484 04/20/2017 50460 EST. PATIENT, LEVEL IV Diagnosis: Other insomnia[ICD10: G47.09] Diagnosis: Other skin changes[ICD10: R23.8] Petra Trejo MD, [facility] CPT- 4: 05255 01/26/2017 59704 EST. PATIENT, LEVEL IV Diagnosis: Acute bronchitis due to other specified organisms[ICD10: J20.8] Petra Trejo MD, [facility] CPT-4: 41793 01/11/2017 ([id number]) 50230 EST. PATIENT, LEVEL IV Diagnosis: Essential (primary) hypertension[ICD10: I10] Diagnosis: Other insomnia[ICD10: G47.09] Diagnosis: Primary generalized (osteo)arthritis[ICD10: M15.0] Diagnosis: Other obesity due to excess calories[ICD10: E66.09] Claudette Trejo MD, [facility] CPT-4: 64899 11/30/2016 ([id number]) 51002 EST. PATIENT, LEVEL III Diagnosis: Other obesity due to excess calories[ICD10: E66.09] Diagnosis: Other insomnia[ICD10: G47.09] Diagnosis: Generalized anxiety disorder[ICD10: F41.1] Claudette Trejo MD, [facility] CPT-4: 24833 09/28/2016 ([id number]) 58757 EST. PATIENT, LEVEL IV Diagnosis: Generalized anxiety disorder[ICD10: F41.1] Diagnosis: Major depressive disorder, recurrent, mild[ICD10: F33.0] Diagnosis: Other obesity due to excess calories[ICD10: E66.09] Diagnosis: Other insomnia[ICD10: G47.09] Claudette Trejo MD, [facility] CPT-4: 18568 08/24/2016 ([id number]) 37502 EST. PATIENT, LEVEL III Diagnosis: Other obesity due to excess calories[ICD10: E66.09] Diagnosis: Major depressive disorder, recurrent, moderate[ICD10: F33.1] Diagnosis: Low back pain[ICD10: M54.5] Heidy Trejo MD, [facility] CPT- 4: 02742 07/13/2016 55751 EST. PATIENT, LEVEL IV Diagnosis: Other muscle spasm[ICD10: M62.838] Diagnosis: Generalized anxiety disorder[ICD10: F41.1] Diagnosis: Major depressive disorder, recurrent, moderate[ICD10: F33.1] Diagnosis: Other insomnia[ICD10: G47.09] Petra Trejo MD, [facility] CPT-4 : 63047 05/19/2016 ([id number]) 84354 EST. PATIENT, LEVEL III Diagnosis: Generalized anxiety disorder[ICD10: F41.1] Diagnosis: Major depressive disorder, recurrent, moderate[ICD10: F33.1] Heidy Trejo MD, [facility] CPT-4: 28320 03/16/2016 ([id number]) 53778 EST. PATIENT, LEVEL III Diagnosis: Streptococcal pharyngitis[ICD10: J02.0] Claudette Trejo MD, [facility] CPT-4: 15216 02/28/2016 ([id number]) 87123 EST. PATIENT, LEVEL III Diagnosis: Generalized anxiety disorder[ICD10: F41.1] Diagnosis: Other obesity due to excess calories[ICD10: E66.09] Heidy Trejo MD, [facility] CPT-4: 36651 01/13/2016 ([id number]) 33327 EST. PATIENT, LEVEL III Diagnosis: Generalized anxiety disorder[ICD10: F41.1] Diagnosis: Major depressive disorder, recurrent, unspecified[ICD10: F33.9] Heidy Trejo MD, [facility] CPT-4: 67560 09/27/2015 04162 EST. PATIENT, LEVEL IV Diagnosis: Chronic pain syndrome[ICD10: G89.4] Diagnosis: Other obesity due to excess calories[ICD10: E66.09] Diagnosis: Essential (primary) hypertension[ICD10: I10] Diagnosis: Generalized anxiety disorder[ICD10: F41.1] Diagnosis: Excessive and frequent menstruation with regular cycle[ICD10: N92.0] Diagnosis: Pain in right knee[ICD10: M25.561] Petra Trejo MD, [facility] CPT-4: 72229 08/30/2015 35381 EST. PATIENT, LEVEL IV Diagnosis: Palpitations[ICD10: R00.2] Diagnosis: Other obesity due to excess calories[ICD10: E66.09] Petra Trejo MD, [facility] CPT-4: 61068 08/16/2015 ([id number]) 56166 EST. PATIENT, LEVEL IV Diagnosis: Pain in right knee[ICD10: M25.561] Diagnosis: Primary generalized (osteo)arthritis[ICD10: M15.0] Diagnosis: Acute maxillary sinusitis, unspecified[ICD10: J01.00] Heidy Trejo MD, [facility] CPT-4: 11398 07/15/2015 ([id number]) 26788 EST. PATIENT, LEVEL IV Diagnosis: Primary generalized (osteo)arthritis[ICD10: M15.0] Diagnosis: Restless legs syndrome[ICD10: G25.81] Diagnosis: Chronic pain syndrome[ICD10: G89.4] Heidy Trejo MD, [facility] CPT-4: 11212 06/16/2015 ([id number]) 71928 EST. PATIENT, LEVEL III Diagnosis: Primary generalized (osteo)arthritis[ICD10: M15.0] Diagnosis: Varicose veins of bilateral lower extremities with pain[ICD10: I83.813] Claudette Trejo MD, [facility] CPT-4: 32685 ([id number]) OFFICE VISIT, NEW - LEVEL 3 Diagnosis: Osteoarthritis[ICD9: 715.90] Diagnosis: ABNORMAL WEIGHT GAIN[ICD9: 783.1] Diagnosis: Superficial thrombophlebitis[ICD9: 451.9] Carey Trejo MD, [facility] CPT-4: 60098 12/02/2014 Plan of Care Planned Activity Notes [...] indicated 07/17/2018 [phone] [facility] [place] (30 min) Complex 07/17/2018 Patient Education: [...] current medications. 07/04/2018 Appointment: [phone] [facility] [place] (30 min) Complex 07/04/2018 Patient Education: [...] this patient. 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 04/17/2018 Appointment: [facility] [phone] [facility] (15 min) Moderate 04/17/2018 Patient Education: Patient [...] edema. 03/14/2018 Appointment: [facility] [phone] [facility] (15 min) Moderate 03/14/2018 Patient Education: Patient [...] to ortho 02/27/2018 Appointment: Petra Rivas WPtel: [facility]5 [facility] (30 min) Complex 02/27/2018 Patient Education: Patient [...] not improve. 12/04/2017 Appointment: Pet[facility] Rivas WPtel: [facility] (15 min) Moderate 12/04/2017 Patient Education: Patient [...] control. 11/20/2017 Appointment: Petra Rivas WPtel: [phone] [facility] [place] (15 min) Moderate 11/20/2017 Patient Education: [...] improve. 09/10/2017 Appointment: Petra Rivas WPtel: [phone] [facility] [place] (15 min) Moderate 09/10/2017 Patient Education: [...] improve. 08/14/2017 Appointment: Petra Rivas WPtel: [phone] [facility] [place] (30 min) Complex 08/14/2017 Patient Education: Patient Medication Summary Completed 08/14/2017 Appointment: Petra Rivas WPtel: [facility]5 [facility] (15 min) Moderate 08/01/2017 Visit Plan: Knee pain - pt is to use RICE - Rest, Ice, Compression, Elevation - pt is to use crutches as directed - The pt is to use prn antiinflammatories to manage acute pain. The patient is to call the office if the pain is worsening or does not improve. 07/31/2017 Appointment: Petra Rivas WPtel: [facility]5 [facility] (30 min) Complex 07/31/2017 Patient Education: Patient Medication Summary Completed 07/31/2017 Care Plan: X-RAY EXAM OF KNEE 3 [facility] : 14181-2 Pending 07/31/2017 Visit Plan: URI - Pt [...] allergy spray. 06/27/2017 Appointment: Petra Rivas WPtel: [facility]5 [facility] (15 min) Moderate 06/27/2017 Patient Education: Patient [...] Quinn 05/29/2017 Appointment: Petra Rivas WPtel: [phone] [facility] (15 min) Moderate 05/29/2017 Patient Education: Patient Medication Summary Completed 05/29/2017 Care Plan: Referral Order SNOMED-CT : [id number] Pending 05/29/2017 App[facility]ment: [phone] (15 min) Moderate 05/28/2017 Visit Plan: Palpitations [...] concerns. 05/21/2017 Appointment: [facility] [phone] [facility] (15 min) Moderate 05/21/2017 Patient Education: Patient Medication Summary Completed 05/21/2017 Visit Plan: Right heel pain - will send RX, pt is to do stretches as directed - The pt is to use prn antiinflammatories to manage acute pain. The patient is to call the office if the pain is worsening or does not improve. 04/20/2017 Appointment: Petra Rivas WPtel: [facility]5 [facility] (30 min) Complex 04/20/2017 Patient Education: Patient Medication Summary Completed 04/20/2017 Appointment: Petra Rivas WPtel: [facility]5 [facility] (30 min) Complex 03/29/2017 Patient Education: Patient Medication Summary Completed 03/16/2017 Referral: Maycol Quijano Referral Initiated 02/08/2017 Care Plan: Referral Order SNOMED-CT : [id number] Pending 01/28/2017 Visit Plan: Insomnia - Pt [...] concerns. 01/26/2017 Appointment: [facility] [phone] [facility] (30 min) Complex 01/26/2017 Patient Education: Patient [...] acutely worsen. 01/11/2017 Appointment: Pet[facility] Rivas WPtel: [facility] (15 min) Moderate 01/11/2017 Patient Education: Patient [...] on use. 11/30/2016 Appointment: Claudette Savage WPtel: [address] [place] [address] (15 min) Moderate 11/30/2016 Patient Education: Patient Medication Summary Completed 11/30/2016 Patient Education: Obesity Completed 11/30/2016 Care Plan: BMI Above normal followup SELF-MGMT EDUC & TRAIN 1 PT Pending 2016 Visit Plan: Uyhvpis-yoxswsjzrh-mdgnwsdw with increase in cymbalta-no changes Insomnia-RX for belsomra provided and instructed on use Obesity-patient down 15#-no changes-continue diet/exercise-follow up in 2 months 09/28/2016 Appointment: Claudette Savage WPtel: [address] [place] [address] (15 min) Moderate 09/28/2016 Patient Education: Patient Medication Summary Completed 09/28/2016 Patient Education: Obesity Completed 09/28/2016 Care Plan: BMI Above normal followup SELF-MGMT EDUC & TRAIN 1 PT Pending 2016 Visit Plan: Luxlvlo-wacignjkof-axtnunny-increase cymbalta to 60mg daily. Increase xanax as [...] for insomnia/anxiety 08/24/2016 Appointment: Claudette Savage WPtel: [address] [place], [place] [phone] (15 min) Moderate 08/24/2016 Patient Education: Patient [...] not improving. 07/13/2016 Appointment: [phone] [facility] (15 min) Moderate 07/13/2016 Patient Education: [...] insomnia. 05/19/2016 App[facility]ment: [phone] (30 min) Complex 05/19/2016 Patient Education: [...] this patient. 03/16/2016 Appointment: Heidy Trejo WPtel: [facility] (15 min) Moderate 03/16/2016 Patient Education: [...] the swab. 02/28/2016 Appointment: Claudette Savage WPtel: [facility]5 [phone] (10 min) Simple 02/28/2016 [...] stop lexapro 01/13/2016 Appointment: Heidy Trejo WPtel: [facility]5 [facility] (15 min) Moderate 01/13/2016 Patient Education: [...] 09/27/2015 Care Plan: Referral Order SNOMED-CT : [id number] Pending 08/31/2015 Visit Plan: Anxiety - the [...] show improvement. 07/15/2015 Appointment: Heidy Trejo WPtel: [facility] (15 min) Moderate 07/15/2015 Patient Education: Patient [...] clinic 04/02/2015 [phone] (15 min) Moderate 04/02/2015 Patient Education: [...] Summary Completed 12/02/2014 Referral: Belle Hoffman WPtel: [facility] they will call and set the appt with her Initiated Referral: Maycol Quijano Referral Initiated Referral: Belle Hoffman WPtel: [phone] [facility] Referral Initiated Referral: Jignesh Quinn [facility] Referral Initiated Instructions Comment glucosamine and chondroiton - joint ease, joint [...] for cymbalta - callif not improving. . Insomnia - Pt has been advised to increase the light in the house during the day, and start dimming the lights during the evening hours. Pt has been advised to cut out caffeine after 5pm. Daytime napping worsens night time insomnia. Changing mole - will refer for removal - pt is to notify clinic with any changes , questions, or concerns. . Palpitations - likely anxiety - will [...] pt is to call for acute concerns. [employer] website contrave 1 pill nightly x 1 [...] medication such as mirapex or requip. . Left knee pain - ongoing - [...] to allow for greater blood glucose control. . Anxiety and Depression - uncontrolled - [...] hysterectomy - will refer to Dr. Hoffman breathing treatments - 4 times a day [...] and treat or refer as indicated . Hospital follow up - This was [...] is worsening or does not improve. . Muscle spasms - Will check labs, [...] 1 mg at night for anxiety . Kfbuiun-tpuvcxcrtg-zhqcdsxp-increase cymbalta to 60mg daily. 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 Chronic Depression and anxiety - the [...] Varicose veins-patient getting treatment at vein clinic . Arthritis- occasionally uncontrolled symptoms- recommend pt [...] Call if symptoms do not show improvement. Breathing treatments 3 times a day x [...] appropriately prescribed for this patient. BELSOMRA . Fjsofma-yoaysxlfvt-fcerpfqd with increase in cymbalta-no changes Insomnia-RX for [...] in 2 weeks for weight check. . Chronic Depression and anxiety - the [...] Knee pain - defer to ortho . Knee pain - pt is to [...]
--- OUTSIDE RECORDS SUMMARY | 2018-07-24 22:57 | XMS REPORT | CCD ---
Author Author [place] Organization [facility] Address [address] [place] [address] Phone Care Team Providers Care Observer Helper Name Role Phone PP Unavailable CCM Unavailable Summary Purpose Interface Exchange Insurance Providers Payer name Policy type / Coverage type Covered democrat ID Effective Begin Date Effective End Date [facility] Commercial Insurance [id number] Unknown Family history Brother Diagnosis Age At [...] Description Effective Dates Tobacco history SNOMED CT: 9425707 Quit less than 5 years ago 04/02/2015 Alcohol history Unknown occasionally drinks alcohol 04/02/2015 Marital status Unknown Manuel Vitale 12/02/2014 Number of children Unknown 3 12/02/2014 Allergies, Adverse Reactions, Alerts Substance Reaction Codes Entered Date Inactivated Date Status * NO KNOWN FOOD ALLERGIES Unknown 12/02/2014 No Inactive Date Active Penicillin Unknown 12/02/2014 No Inactive Date Active tramadol RxNorm: 70010 12/02/2014 No Inactive Date Active Past Medical History Illness Codes Condition Status Onset Date Resolved Date Generalized anxiety disorder ICD-9: 300.00 ICD-10: F41.1 Active 05/21/2017 Unknown Major depressive disorder, single episode, moderate ICD-9: 296.22 ICD-10: F32.1 Active 06/19/2018 Unknown Other insomnia ICD-9: 327.09 ICD-10: G47.09 Active 05/18/2016 Unknown Other chest pain ICD-9 : 786.59 ICD-10: R07.89 Active 04/24/2018 Unknown Right upper quadrant pain ICD-9: 789.01 ICD-10: R10.11 Active 04/24/2018 Unknown Essential (primary) hypertension ICD-9: [...] ICD-9: V67.9 ICD-10: Z09 Active 08/14/2017 Unknown Acute laryngopharyngitis ICD-9: 465.0 ICD-10: J06.0 Active [...] Problems Condition Codes Effective Dates Condition Status Generalized anxiety disorder ICD-9: 300.00 ICD-10: F41.1 05/21/2017 Active Major depressive disorder, single episode, moderate ICD-9: 296.22 ICD-10: F32.1 06/19/2018 Active Other insomnia ICD-9: 327.09 ICD-10: G47.09 05/18/2016 Active Other chest pain ICD-9 : 786.59 ICD-10: R07.89 04/24/2018 Active Right upper quadrant pain ICD-9: 789.01 ICD-10: R10.11 04/24/2018 Active Essential (primary) hypertension ICD-9: 401.1 [...] neoplasm ICD-9: V67.9 ICD-10: Z09 08/14/2017 Active Acute laryngopharyngitis ICD-9: 465.0 ICD-10: J06.0 06/27/2017 [...] Start Date Stop Date Status Fill Instructions potassium chloride ER 10 mEq tablet,extended release RxNorm: 727376 1 Tablet(s) PO daily as needed to take when you take the lasix 201808/02/2018 Active Lasix 20 mg tablet RxNorm: 528930 1 Tablet(s) PO daily as needed edema 07/04/2018 08/02/2018 Active Cymbalta 30 mg capsule,delayed release RxNorm: 892406 1 CAPSULE(S) PO DAILY TO BE TAKEN WITH 60MG TO=90MG 07/01/20182018 Active hydrochlorothiazide 25 mg tablet RxNorm: 207294 1 TABLET(S) PO DAILY 06/27/2018 09/24/2018 Active Remeron 15 mg tablet RxNorm: 640192 1/2 Tablet(s) PO QHS 201807/19/2018 Active Lexapro 20 mg tablet RxNorm: 437962 1 Tablet(s) PO daily 201807/18/2018 Active Lasix 20 mg tablet RxNorm: 935632 1 Tablet(s) PO daily 201806/21/2018 Inactive potassium chloride ER 10 mEq tablet,extended release RxNorm: 601407 1 Tablet(s) PO daily 06/19/2018 07/03/2018 Inactive gabapentin 300 mg capsule RxNorm: 574380 1 CAPSULE(S) PO TID 08/12/2018 Active Ambien 10 mg tablet RxNorm: 573515 1 Tablet(s) PO QHS as needed insomnia 06/10/2018 09/07/2018 Active Cymbalta 30 mg capsule,delayed release RxNorm: 151428 1 Capsule(s) PO daily 06/03/2018 06/02/2018 Inactive Cymbalta 30 mg capsule,delayed release RxNorm: 354812 1 Capsule(s) PO daily to be taken with 60mg to=90mg 06/03/20182018 Inactive Protonix 40 mg tablet,delayed release RxNorm: 484675 1 TABLET(S) PO DAILY 05/20/2018 09/16/2018 Active gabapentin 300 mg capsule RxNorm: 802045 1 CAPSULE(S) PO TID 06/13/2018 Inactive Protonix 40 mg tablet,delayed release RxNorm: 187038 1 Tablet(s) PO daily 04/24/2018 05/19/2018 Inactive Zorvolex 35 mg capsule RxNorm: 9629554 TAKE 1 CAPSULE BY MOUTH THREE (3) TIMES DAILY 04/22/2018 08/19/2018 Active hydrochlorothiazide 25 mg tablet RxNorm: 055191 1 TABLET(S) PO DAILY 04/08/2018 06/26/2018 Inactive Zorvolex 35 mg capsule RxNorm: 9651169 TAKE 1 CAPSULE BY MOUTH THREE (3) TIMES DAILY 03/27/2018 04/21/2018 Inactive gabapentin 300 mg capsule RxNorm: 380213 1 CAPSULE(S) PO TID 04/14/2018 Inactive hydrochlorothiazide 25 mg tablet RxNorm: 286875 1 Tablet(s) PO daily 03/14/2018 04/07/2018 Inactive Cymbalta 60 mg capsule,delayed release RxNorm: 576824 1 Capsule(s) PO daily TAKE 1 CAPSULE BY MOUTH DAILY 02/27/20182019 Active Victoza 2-Marek 0.6 mg/0.1 mL (18 mg/3 mL) subcutaneous pen injector RxNorm: 921190 Milligram(s) INJECT 1.8 MG SUB-Q ONCE DAILY 02/27/2018 08/20/2019 Active qty sufficient Xanax 1 mg tablet RxNorm: 771375 1-2 Tablet(s) PO QHS as needed insomnia 02/27/2018 05/27/2018 Inactive atorvastatin 20 mg tablet RxNorm: 645316 1 Tablet(s) PO daily 02/27/2018 05/22/2019 Active Cymbalta 60 mg capsule,delayed release RxNorm: 832175 TAKE 1 CAPSULE BY MOUTH DAILY 02/27/2018 02/26/2018 Inactive gabapentin 300 mg capsule RxNorm: 740070 1 Capsule(s) PO TID 03/24/2018 Inactive meloxicam 7.5 mg tablet RxNorm: 520095 1 Tablet(s) PO daily 1 TABLET(S) PO DAILY 02/27/2018 04/14/2018 Inactive Ambien 10 mg tablet RxNorm: 002167 1 Tablet(s) PO QHS as needed insomnia 02/27/2018 05/25/2018 Inactive atorvastatin 20 mg tablet RxNorm: 182172 1 Tablet(s) PO daily 02/05/2018 02/26/2018 Inactive atorvastatin 20 mg tablet RxNorm: 301288 1 Tablet(s) PO daily 02/05/2018 02/04/2018 Inactive meloxicam 7.5 mg tablet RxNorm: 069374 1 TABLET(S) PO DAILY 02/26/2018 Inactive oxycodone 15 mg tablet RxNorm: 8890037 1 Tablet(s) PO QID as needed 01/07/2018 02/19/2018 Inactive lactulose 20 gram/30 mL oral solution RxNorm: 565510 15-30 Milliliter(s) PO BID as needed 12/31/2017 02/20/2018 Inactive meloxicam 7.5 mg tablet RxNorm: 864010 1 TABLET(S) PO DAILY 06/201701/31/2018 Inactive Zorvolex 35 mg capsule RxNorm: 4901167 1 Capsule(s) PO TID 06/201702/20/2018 Inactive Ambien 10 mg tablet RxNorm: 185945 1 Tablet(s) PO QHS as needed insomnia 12/04/2017 02/26/2018 Inactive oxycodone 15 mg tablet RxNorm: 7908038 1 Tablet(s) PO QID as needed 12/04/2017 01/06/2018 Inactive prednisone 20 mg tablet RxNorm: 228198 2 Tablet(s) PO daily 12/08/2017 Inactive Victoza 2-Marek 0.6 mg/0.1 mL (18 mg/3 mL) subcutaneous pen injector RxNorm: 079039 Milligram(s) INJECT 1.8 MG SUB-Q ONCE DAILY 11/20/2017 02/26/2018 Inactive meloxicam 7.5 mg tablet RxNorm: 525027 1 Tablet(s) PO daily 02/201812/12/2017 Inactive phentermine 37.5 mg tablet RxNorm: 000759 1 Tablet(s) PO daily 11/20/2017 12/19/2017 Inactive Ambien 10 mg tablet RxNorm: 996980 1 Tablet(s) PO QHS as needed insomnia 11/20/2017 12/18/2017 Inactive Xanax 1 mg tablet RxNorm: 491710 1.5 Tablet(s) PO QHS as needed insomnia 11/20/2017 02/26/2018 Inactive hydrocodone 7.5 mg-acetaminophen 325 mg tablet RxNorm: 017419 1 Tablet(s) PO TID as needed 11/16/2017 01/06/2018 Inactive Cymbalta 60 mg capsule,delayed release RxNorm: 184223 TAKE 1 CAPSULE BY MOUTH DAILY 11/02/2017 02/26/2018 Inactive Xanax 1 mg tablet RxNorm: 913221 1 Tablet(s) PO BID PRN as needed anxiety 10/04/2017 11/19/2017 Inactive Victoza 2-Marek 0.6 mg/0.1 mL (18 mg/3 mL) subcutaneous pen injector RxNorm: 208432 INJECT 1.8 MG SUB-Q ONCE DAILY 10/04/2017 11/19/2017 Inactive hydrocodone 7.5 mg-acetaminophen 325 mg tablet RxNorm: 177621 1 Tablet(s) PO TID as needed 09/17/2017 11/15/2017 Inactive hydrocodone 7.5 mg-acetaminophen 325 mg tablet RxNorm: 649609 1 Tablet(s) PO TID as needed 09/10/2017 09/16/2017 Inactive prednisone 10 mg tablet RxNorm: 531959 Tablet(s) PO 09/10/2017 11/13/2017 Inactive 6, 5,4,3,2,1 Zorvolex 35 mg capsule RxNorm: 3374503 1 Capsule(s) PO TID 11/13/2017 Inactive Ambien 10 mg tablet RxNorm: 219802 1 Tablet(s) PO QHS as needed insomnia 08/29/2017 11/19/2017 Inactive Zorvolex 35 mg capsule RxNorm: 6374098 1 Capsule(s) PO TID 09/06/2017 Inactive Zorvolex 35 mg capsule RxNorm: 0603365 1 Capsule(s) PO TID 06/201708/27/2017 Inactive Zorvolex 35 mg capsule RxNorm: 3890630 1 Capsule(s) PO TID 06/201708/12/2017 Inactive prednisone 20 mg tablet RxNorm: 886740 2 Tablet(s) PO daily 08/04/2017 Inactive hydrocodone 7.5 mg-acetaminophen 325 mg tablet RxNorm: 608883 1 Tablet(s) PO TID as needed 07/31/2017 09/09/2017 Inactive Zorvolex 35 mg capsule RxNorm: 1416009 1 Capsule(s) PO TID as needed 07/31/2017 11/13/2017 Inactive ceftriaxone 500 mg solution for injection RxNorm: 8254595 1 Milliliter(s) Inj 06/27/2017 06/27/2017 Inactive Keflex 500 mg capsule RxNorm: 430600 1 Capsule(s) PO TID 201707/03/2017 Inactive Ambien 10 mg tablet RxNorm: 593697 1 Tablet(s) PO daily 201708/25/2017 Inactive tramadol 50 mg tablet RxNorm: 629667 1 Tablet(s) PO TID as needed 05/29/2017 07/27/2017 Inactive Xanax 1 mg tablet RxNorm: 940205 1 Tablet(s) PO BID PRN as needed anxiety 05/21/2017 10/03/2017 Inactive alprazolam 1 mg tablet RxNorm: 769660 1 Tablet(s) PO BID as needed 05/21/2017 06/19/2017 Inactive Celebrex 200 mg capsule RxNorm: 882129 1 CAPSULE(S) PO BID 11/05/2017 Inactive prednisone 20 mg tablet RxNorm: 097506 2 Tablet(s) PO daily 12/201604/24/2017 Inactive Ambien 10 mg tablet RxNorm: 663341 Tablet(s) PO 04/20/2017 05/28/2017 Inactive hydrocodone 5 mg-acetaminophen 325 mg tablet RxNorm: 840446 1 Tablet(s) PO QID as needed 04/20/2017 08/01/2017 Inactive Cymbalta 60 mg capsule,delayed release RxNorm: 537259 1 Capsule(s) PO daily 04/20/2017 02/26/2018 Inactive Victoza 2-Marek 0.6 mg/0.1 mL (18 mg/3 mL) subcutaneous pen injector RxNorm: 225300 INJECT 1.8 MG SUB-Q ONCE DAILY 03/26/2017 09/21/2017 Inactive diazepam 2 mg tablet RxNorm: 213208 1 Tablet(s) PO QHS as needed insomnia 01/28/2017 05/07/2017 Inactive Victoza 2-Marek 0.6 mg/0.1 mL (18 mg/3 mL) subcutaneous pen injector RxNorm: 311338 1.8 Milligram(s) SQ daily 01/26/201703/25 Inactive dispense quantity sufficient Tussionex Pennkinetic ER 10 mg-8 mg/5 mL suspension, extended release RxNorm: 2141203 5 Milliliter(s) PO BID 01/11/2017 01/15/2017 Inactive Xanax 1 mg tablet RxNorm: 212430 1 Tablet(s) PO BID PRN as needed anxiety 01/11/2017 05/20/2017 Inactive Zithromax Z-Marek 250 mg tablet RxNorm: 964603 1 Tablet(s) PO UD 01/11/2017 01/15/2017 Inactive zpack albuterol sulfate 2.5 mg/3 mL (0.083 %) solution for nebulization RxNorm: 208800 3 Milliliter(s) INH UD 01/11/201707/2017 Inactive prednisone 20 mg tablet RxNorm: 040763 2 Tablet(s) PO daily 01/15/2017 Inactive Kenalog 40 mg/mL suspension for injection RxNorm: 3139369 1.5 Milliliter(s) Inj 01/11/2017 01/11/2017 Inactive Celebrex 200 mg capsule RxNorm: 382617 1 Capsule(s) PO BID 02/27/2017 Inactive Ambien 5 mg tablet RxNorm: 978943 1 Tablet(s) PO HS PRN 11/3008/07/2017 Inactive trazodone 50 mg tablet RxNorm: 559029 1/2 to 1 Tablet(s) PO QHS 10/13/2016 10/12/2016 Inactive trazodone 50 mg tablet RxNorm: 046091 1/2 to 1 Tablet(s) PO QHS 10/13/2016 11/29/2016 Inactive Belsomra 10 mg tablet RxNorm: 0463253 1 Tablet(s) PO QHS 201611/29/2016 Inactive may increase to 20mg if 10mg not effective Cymbalta 60 mg capsule,delayed release RxNorm: 398525 1 Capsule(s) PO daily 08/24/2016 03/21/2017 Inactive Xanax 1 mg tablet RxNorm: 519962 1 Tablet(s) PO BID PRN as needed anxiety 08/24/2016 01/10/2017 Inactive Victoza 2-Marek 0.6 mg/0.1 mL (18 mg/3 mL) subcutaneous pen injector RxNorm: 694169 Milligram(s) SQ 08/24/2016 08/23/2016 Inactive Victoza 2-Marek 0.6 mg/0.1 mL (18 mg/3 mL) subcutaneous pen injector RxNorm: 081153 1.8 Milligram(s) SQ 08/24/2016 01/25/2017 Inactive Vitamin D2 50,000 unit capsule RxNorm: 064451 1 Capsule(s) PO QW 07/13/2016 10/10/2016 Inactive Cymbalta 30 mg capsule,delayed release RxNorm: 686518 1 Capsule(s) PO daily 07/13/2016 08/23/2016 Inactive Belviq XR 20 mg tablet,extended release RxNorm: 8590384 1 Tablet(s) PO daily 05/30/2016 05/29/2016 Inactive prednisone 20 mg tablet RxNorm: 418351 2 Tablet(s) PO daily 06/03/2016 Inactive prednisone 20 mg tablet RxNorm: 245581 2 Tablet(s) PO daily 05/29/2016 Inactive Belviq XR 20 mg tablet,extended release RxNorm: 0884321 1 Tablet(s) PO daily 05/30/2016 06/28/2016 Inactive cyclobenzaprine 5 mg tablet RxNorm: 508109 1-2 Tablet(s) PO TID as needed 05/19/2016 05/23/2016 Inactive metoprolol succinate ER 25 mg tablet,extended release 24 hr RxNorm: 231571 1 Tablet(s) PO QPM 04/10/2016 04/13/2016 Inactive metoprolol succinate ER 25 mg tablet,extended release 24 hr RxNorm: 873260 1 Tablet(s) PO QPM 04/10/2016 04/09/2016 Inactive escitalopram 10 mg tablet RxNorm: 521188 1 Tablet(s) PO daily 03/16/2016 07/12/2016 Inactive estradiol 1 mg tablet RxNorm: 915920 1 Tablet(s) PO every other day 03/16/2016 05/15/2016 Inactive Kenalog 40 mg/mL suspension for injection RxNorm: 0817065 Milliliter(s) Inj 02/28/2016 02/28/2016 Inactive Zithromax Z-Marek 250 mg tablet RxNorm: 371560 1 Tablet(s) PO UD 02/28/2016 03/03/2016 Inactive zpack Lexapro 10 mg tablet RxNorm: 654145 1 Tablet(s) PO daily 201502/27/2016 Inactive Lexapro 10 mg tablet RxNorm: 184319 1 Tablet(s) PO daily 201509/26/2015 Inactive Vimovo 500 mg-20 mg tablet,immediate and delay release RxNorm: 077431 1 Tablet(s) PO BID as needed for pain 08/30/201509/25 Inactive azithromycin 250 mg tablet RxNorm: 013013 1 Tablet(s) PO UD 2 pills on day #1, then one pill daily x 4 days 07/15/2015 Inactive hydrocodone 10 mg-acetaminophen 325 mg tablet RxNorm: 379783 1 Tablet(s) PO QID 06/16/2015 01/12/2016 Inactive pramipexole 0.5 mg tablet RxNorm: 971614 1 Tablet(s) PO QPM 07/201507/14/2015 Inactive Celebrex 200 mg capsule RxNorm: 649138 1 Capsule(s) PO daily 05/02/2015 Inactive Celebrex 200 mg capsule RxNorm: 514076 1 Capsule(s) PO daily 01/12/2016 Inactive hydrocodone 7.5 mg-acetaminophen 325 mg tablet RxNorm: 533708 1 Tablet(s) PO Q6 PRN 05/03/2015 06/15/2015 Inactive Mobic 15 mg tablet RxNorm: 089591 1 Tablet(s) PO daily 201405/02/2015 Inactive hydrocodone 7.5 mg-acetaminophen 325 mg tablet RxNorm: 138803 1 Tablet(s) PO Q6 PRN 04/02/2015 05/02/2015 Inactive hydrocodone 5 mg-acetaminophen 325 mg tablet RxNorm: 935592 1 Tablet(s) PO Q6 as needed 12/11/2014 04/01/2015 Inactive Pennsaid 1.5 % topical drops RxNorm: 335053 40 Drop(s) TOP QID as needed 12/07/2014 02/04/2015 Inactive Apply 40 drops to each knee joint 4 times per day as needed for osteoarthritis pain estradiol 1 mg tablet RxNorm: 271231 1 Tablet(s) PO QHS No Start Date 03/15/2016 Inactive Xanax 0.5 mg tablet RxNorm: 050762 1 Tablet(s) PO Q6 as needed anxiety No Start Date 08/23/2016 Inactive Tylenol Extra Strength 500 mg tablet RxNorm: 584321 3 Tablet(s) PO BID after breakfast and after lunch No Start Date Inactive lactulose 20 gram/30 mL oral solution RxNorm: 585398 15-30 Milliliter(s) PO BID as needed No Start Date 12/30/2017 Inactive hydrocodone 5 mg-acetaminophen 325 mg tablet RxNorm: 356395 1 Tablet(s) PO Q6 as needed No Start Date 12/10/2014 Inactive Phenergan-Codeine syrup RxNorm: 5-10 Milliliter(s) PO QID as needed No Start Date 11/13/2017 Inactive ibuprofen 200 mg capsule RxNorm: 000727 4 Capsule(s) PO QID as needed No Start Date 04/01/2015 Inactive Medication Administered Medication Codes Instructions Start Date Status ceftriaxone 500 mg solution for injection RxNorm: 0012886 1Milliliter 06/27/2017 No longer Active Kenalog 40 mg/mL suspension for injection RxNorm: 1703529 1.5Milliliter 01/11/2017 No longer Active Kenalog 40 mg/mL suspension for injection RxNorm: 5600871 Milliliter 02/28/2016 No longer Active Immunizations Vaccine Codes Date Status Influenza CVX: 141 03/16/2017 completed Pneumococcal (Adult) CVX: 33 03/16/2017 completed Assessments Condition Codes Effective Dates Generalized anxiety disorder ICD-10: F41.1 ICD-9: 300.00 07/04/2018 Major depressive disorder, single episode, moderate ICD-10: F32.1 ICD-9: 296.22 07/04/2018 Other insomnia ICD-10: G47.09 ICD-9: 327.09 06/19/2018 Other chest pain ICD-10: R07.89 ICD-9: 786.59 04/24/2018 Right upper quadrant pain ICD-10: R10.11 ICD-9: 789.01 04/24/2018 Type 2 diabetes mellitus without complications [...] malignant neoplasm ICD-10: Z09 ICD-9: V67.9 08/14/2017 Other allergic rhinitis ICD-10: J30.89 ICD-9: 477.8 [...] Visit Reason For Visit Effective Dates Notes medication follow up 07/04/2018 insomnia 06/19/2018 chest [...] Observation Code Item Item Code Result Date %Hba1C Quo128 % HbA1c 50196-5 6.7 % 11/20/2017 %Hba1C Cna509 Gluc Ave 146 mg/dL 11/20/2017 Free T4 Oav176 FREE T4 0.76 ng/dL 05/21/2017 Tsh Ord6 hTSH II 1.27 uIU/mL 05/21/2017 Comp Metabolic Leg495 NA 140 mEq/L 05/21/2017 Comp Metabolic Lze327 K 3.9 mEq/L 05/21/2017 Comp Metabolic Igf865 CL 101 mEq/L 05/21/2017 Comp Metabolic Cyb217 CO2 28.0 mEq/L 05/21/2017 Comp Metabolic Bkq003 ANION GAP 15 05/21/2017 Comp Metabolic Mub753 GLUCOSE 155 mg/dL 05/21/2017 Comp Metabolic Kcl534 Creat 0.7 mg/dL 05/21/2017 Comp Metabolic Fhu127 eGFR 87 ml/min/1.73m2 05/21/2017 Comp Metabolic Mgo503 BUN 16 mg/dL 05/21/2017 Comp Metabolic Moz114 B/C Ratio 21.6 Ratio 05/21/2017 Comp Metabolic Nch916 CALCIUM 9.4 mg/dL 05/21/2017 Comp Metabolic Zpz933 ALK PHOS 132 U/L 05/21/2017 Comp Metabolic Cve715 AST(SGOT) 16 U/L 05/21/2017 Comp Metabolic Dgu285 ALT(SGPT) 20 U/L 05/21/2017 Comp Metabolic Fnu571 BILI T 0.4 mg/dL 05/21/2017 Comp Metabolic Mdf717 ALBUMIN 4.0 g/dL 05/21/2017 Comp Metabolic Rpf185 TPRO 6.7 g/dL 05/21/2017 Comp Metabolic Opf195 GLOB 2.7 g/dL 05/21/2017 Comp Metabolic Enu196 A/G Ratio 1.5 Ratio 05/21/2017 Comp Metabolic Wos243 Osmo 284 mOsmo 05/21/2017 Cbc With Differential Ord2 WBC 14.12 K/ul 05/21/2017 Cbc With Differential Ord2 RBC 5.29 M/ul 05/21/2017 Cbc With Differential Ord2 HGB 15.3 g/dl 05/21/2017 Cbc With Differential Ord2 HCT 46.4 % 05/21/2017 Cbc With Differential Ord2 Neut% 74.9 % 05/21/2017 Cbc With Differential Ord2 Lymph% 18.8 % 05/21/2017 Cbc With Differential Ord2 MCV 87.7 fl 05/21/2017 Cbc With Differential Ord2 MCH 28.9 pg 05/21/2017 Cbc With Differential Ord2 Bibb% 5.5 % 05/21/2017 Cbc With Differential Ord2 Eos% 0.6 % 05/21/2017 Cbc With Differential Ord2 MCHC 33.0 pg 05/21/2017 Cbc With Differential Ord2 PLT 357 K/ul 05/21/2017 Cbc With Differential Ord2 Baso% 0.2 % 05/21/2017 Cbc With Differential Ord2 Neut ABS# 10.59 K/ul 05/21/2017 Cbc With Differential Ord2 RDW 14.0 % 05/21/2017 Cbc With Differential Ord2 Lymph ABS# 2.65 K/ul 05/21/2017 Cbc With Differential Ord2 Bibb ABS# 0.8 K/ul 05/21/2017 Cbc With Differential Ord2 Eos ABS# 0.1 K/ul 05/21/2017 Cbc With Differential Ord2 Baso ABS# 0.0 K/ul 05/21/2017 Estrogens Total 636154 ESTROGENS, TOTAL 54 pg/mL 05/24/2016 Magnesium Ord90 Mag 1.8 mg/dL 05/19/2016 Tsh Ord6 hTSH II 1.56 uIU/mL 05/19/2016 Progesterone Prog 0.03 ng/mL 05/19/2016 Comp Metabolic Tgb081 NA 136 mEq/L 05/19/2016 Comp Metabolic Cnz233 K 4.3 mEq/L 05/19/2016 Comp Metabolic Gec931 CL 100 mEq/L 05/19/2016 Comp Metabolic Lrl162 CO2 28.0 mEq/L 05/19/2016 Comp Metabolic Xym598 ANION GAP 12 05/19/2016 Comp Metabolic Hww213 GLUCOSE 138 mg/dL 05/19/2016 Comp Metabolic Nqc190 Creat 0.7 mg/dL 05/19/2016 Comp Metabolic Ijd008 eGFR 89 ml/min/1.73m2 05/19/2016 Comp Metabolic Dto779 BUN 15 mg/dL 05/19/2016 Comp Metabolic Rjp571 B/C Ratio 20.5 Ratio 05/19/2016 Comp Metabolic Zpl419 CALCIUM 9.7 mg/dL 05/19/2016 Comp Metabolic Bzj036 ALK PHOS 106 U/L 05/19/2016 Comp Metabolic Aoh910 AST(SGOT) 21 U/L 05/19/2016 Comp Metabolic Gvm157 ALT(SGPT) 24 U/L 05/19/2016 Comp Metabolic Scd995 BILI T 0.4 mg/dL 05/19/2016 Comp Metabolic Osy396 ALBUMIN 4.1 g/dL 05/19/2016 Comp Metabolic Wrz425 TPRO 7.1 g/dL 05/19/2016 Comp Metabolic Cri734 GLOB 3.0 g/dL 05/19/2016 Comp Metabolic Alo529 A/G Ratio 1.4 Ratio 05/19/2016 Comp Metabolic Ksc235 Osmo 275 mOsmo 05/19/2016 Cbc With Differential [...] 86.5 fl 05/19/2016 Cbc With Differential Ord2 Bibb% 6.5 % 05/19/2016 Cbc With Differential Ord2 MCH 28.5 pg 05/19/2016 Cbc With Differential Ord2 Eos% 0.8 % 05/19/2016 Cbc With Differential Ord2 MCHC 32.9 pg 05/19/2016 Cbc With Differential Ord2 Baso% 0.2 % 05/19/2016 Cbc With Differential Ord2 PLT 334 K/ul 05/19/2016 Cbc With Differential Ord2 RDW 14.7 % 05/19/2016 Cbc With Differential Ord2 Neut ABS# 5.77 K/ul 05/19/2016 Cbc With Differential Ord2 Lymph ABS# 2.33 K/ul 05/19/2016 Cbc With Differential Ord2 Bibb ABS# 0.6 K/ul 05/19/2016 Cbc With Differential Ord2 Eos ABS# 0.1 K/ul 05/19/2016 Cbc With Differential Ord2 Baso ABS# 0.0 K/ul 05/19/2016 C RAP A SC 0896606 Strep A Negative 02/28/2016 Tsh Ord6 hTSH [...] 26.2 pg 08/16/2015 Cbc With Differential Ord2 Bibb% 7.1 % 08/16/2015 Cbc With Differential Ord2 [...] 2.32 K/ul 08/16/2015 Cbc With Differential Ord2 Bibb ABS# 0.6 K/ul 08/16/2015 Cbc With Differential Ord2 Eos ABS# 0.1 K/ul 08/16/2015 Cbc With Differential Ord2 Baso ABS# 0.0 K/ul 08/16/2015 Cbc With Differential Ord2 New Analyzer Notice Please note new ref ranges starting 05-26-2015 due to implemntation of new five part differential hematolgy analyzer. 08/16/2015 Comp Metabolic Udo896 NA 132 mEq/L 08/16/2015 Comp Metabolic Kkk036 K 3.6 mEq/L 08/16/2015 Comp Metabolic Myt852 CL 99 mEq/L 08/16/2015 Comp Metabolic Tei009 CO2 23.0 mEq/L 08/16/2015 Comp Metabolic Hyl191 ANION GAP 14 08/16/2015 Comp Metabolic Ccy126 GLUCOSE 101 mg/dL 08/16/2015 Comp Metabolic Szr069 Creat 0.7 mg/dL 08/16/2015 Comp Metabolic Oyd152 eGFR 100 ml/min/1.73m2 08/16/2015 Comp Metabolic Czy991 BUN 10 mg/dL 08/16/2015 Comp Metabolic Ouc299 B/C Ratio 15.2 Ratio 08/16/2015 Comp Metabolic Qxl007 CALCIUM 9.3 mg/dL 08/16/2015 Comp Metabolic Lyt371 ALK PHOS 100 U/L 08/16/2015 Comp Metabolic Zck200 AST(SGOT) 14 U/L 08/16/2015 Comp Metabolic Agl280 ALT(SGPT) 11 U/L 08/16/2015 Comp Metabolic Hkr173 BILI T 0.3 mg/dL 08/16/2015 Comp Metabolic Eze921 ALBUMIN 3.9 g/dL 08/16/2015 Comp Metabolic Dws735 TPRO 7.1 g/dL 08/16/2015 Comp Metabolic Srw169 GLOB 3.2 g/dL 08/16/2015 Comp Metabolic Jav596 A/G Ratio 1.2 Ratio 08/16/2015 Comp Metabolic Yml606 Osmo 264 mOsmo 08/16/2015 Lipid Ord30 CHOL 209 mg/dL 12/03/2014 Lipid Ord30 HDL 42.0 mg/dl 12/03/2014 Lipid Ord30 TRIG 219 mg/dL 12/03/2014 Lipid Ord30 LDL 123 mg/dL 12/03/2014 Lipid Ord30 C/HDL 5.0 Ratio 12/03/2014 Comp Metabolic Zqx707 NA 132 mEq/L 12/03/2014 Comp Metabolic Ain059 K 4.0 mEq/L 12/03/2014 Comp Metabolic Rct563 CL 101 mEq/L 12/03/2014 Comp Metabolic Whh697 CO2 22.0 mEq/L 12/03/2014 Comp Metabolic Mdq930 ANION GAP 13 12/03/2014 Comp Metabolic Ulz690 GLUCOSE 123 mg/dL 12/03/2014 Comp Metabolic Xck552 Creat 0.7 mg/dL 12/03/2014 Comp Metabolic Bbn398 eGFR 97 ml/min/1.73m2 12/03/2014 Comp Metabolic Zcv407 BUN 10 mg/dL 12/03/2014 Comp Metabolic Rjo276 B/C Ratio 14.7 Ratio 12/03/2014 Comp Metabolic Ugz392 CALCIUM 9.2 mg/dL 12/03/2014 Comp Metabolic Xnm476 ALK PHOS 88 U/L 12/03/2014 Comp Metabolic Dig415 AST(SGOT) 18 U/L 12/03/2014 Comp Metabolic Cov782 ALT(SGPT) 17 U/L 12/03/2014 Comp Metabolic Yjn379 BILI T 0.5 mg/dL 12/03/2014 Comp Metabolic Uuc607 ALBUMIN 3.9 g/dL 12/03/2014 Comp Metabolic Ecg411 TPRO 6.8 g/dL 12/03/2014 Comp Metabolic Zgh562 GLOB 2.9 g/dL 12/03/2014 Comp Metabolic Fsw655 A/G Ratio 1.3 Ratio 12/03/2014 Comp Metabolic Cwo765 Osmo 265 mOsmo 12/03/2014 Tsh Ord6 hTSH II 1.13 uIU/mL 12/03/2014 D-Dimer D-DIMER 168 NG/ML 12/03/2014 D-Dimer COMMENT 12/03/2014 Cbc With Differential Ord2 WBC [...] Result Effective Dates Constitutional No recent illness 2018 Constitutional No [...] Result Effective Dates Notes Full Exam - General 1994 Constitutional general [...] gait 07/04/2018 None Full Exam - General 1994 Musculoskeletal gait and station Overall: normal station 07/04/2018 None Full Exam - General 1994 Musculoskeletal head and neck Overall: head atraumatic 07/04/2018 None Full Exam - General 1994 Neurologic cranial nerves Overall: crainial nerves 2 - 12 grossly intact 07/04/2018 None Full Exam - General 1994 [...] distress 06/19/2018 None Full Exam - General 1994 Constitutional general appearance Overall: well nourished 06/19/2018 None Full Exam - General 1995 Eyes conjunctiva /eyelids Overall: conjunctiva clear 06/19/2018 None Full Exam - General 1995 Eyes conjunctiva /eyelids Overall: cornea clear 06/19/2018 None Full Exam - General 1995 Eyes conjunctiva /eyelids Overall: eyelids normal 06/19/2018 [...] affect 03/14/2018 None Full Exam - General 1995 Psychiatric appearance Overall: well-groomed, good eye contact [...] affect 08/14/2017 None Full Exam - General 1995 Psychiatric appearance Overall: well-groomed, good eye contact [...] Procedure Codes Date THER/PROPH/DIAG INJ SC/IM CPT-4: 83253 06/27/2017 ROCEPHIN, PER 250 MG CPT-4: J0696 06/27/2017 IMMUNIZATION ADMIN CPT -4: 19254 03/16/2017 FLU VAC NO PRSV 4 FLETCHER 3 YRS+ CPT-4: 49957 03/16/2017 Pneumococcal Polysaccharide Vaccine, 23-Valent, Ad CPT-4: 23831 03/16/2017 IMMUNIZATION ADMIN EACH ADD CPT-4: 24033 03/16/2017 TRIAMCINOLONE ACET INJ NOS CPT-4: J3301 01/11/2017 TRIAMCINOLONE ACET INJ NOS CPT-4: J3301 02/28/2016 Vital Signs Date Vital 07/04/2018 Blood Pressure 1: 132/76 Code : 8480-6 Heart Rate 1: 80 bpm Height: SpO2: 97% Weight: 06/19/2018 Blood Pressure 1: 124/74 Code : 8480-6 BMI: 38.6 Code : 06214-7 Heart Rate 1 : 85 bpm Height: 5'6" SpO2: 95% Weight: 239 lbs 04/24/2018 Blood Pressure 1: 128/74 Code : 8480-6 BMI: 37.8 Code : 89646-0 Heart Rate 1 : 107 bpm Height: 5'6" SpO2: 98% Weight: 234 lbs 04/17/2018 Blood Pressure 1: 120/64 Code : 8480-6 BMI: 37.8 Code : 51335-3 Heart Rate 1 : 84 bpm Height: 5'6" SpO2: 96% Weight: 234 lbs 03/14/2018 Blood Pressure 1: 140/82 Code : 8480-6 BMI: 37.8 Code : 70951-7 Heart Rate 1 : 85 bpm Height: 5'6" SpO2: 98% Weight: 234 lbs 02/27/2018 Blood Pressure 1: 142/68 Code : 8480-6 BMI: 36.5 Code : 37816-1 Heart Rate 1 : 84 bpm Height: 5'6" SpO2: 97% Weight: 226 lbs 12/19/2017 Blood Pressure 1: 130/86 Code : 8480-6 BMI: 35.7 Code : 10088-1 Heart Rate 1 : 94 bpm Height: 5'6" Weight: 221 lbs 12/04/2017 Blood Pressure 1: 138/78 Code : 8480-6 BMI: 36.6 Code : 44149-4 Heart Rate 1 : 94 bpm Height: 5'6" SpO2: 98% Weight: 227 lbs 11/20/2017 Weight: 233 lbs 09/10/2017 Blood Pressure 1: 132/86 Code : 8480-6 Heart Rate 1: 86 bpm Height: Weight: 08/14/2017 Blood Pressure 1: 120/74 Code : 8480-6 BMI: 33.9 Code : 22498-1 Heart Rate 1 : 92 bpm Height: 5'6" SpO2: 94% Weight: 210 lbs 07/31/2017 Blood Pressure 1: 140/80 Code : 8480-6 BMI: 33.9 Code : 48776-5 Heart Rate 1 : 96 bpm Height: 5'6" SpO2: 97% Weight: 210 lbs 06/27/2017 Blood Pressure 1: 128/80 Code : 8480-6 BMI: 33.9 Code : 11129-8 Heart Rate 1 : 85 bpm Height: 5'6" SpO2: 98% Temperature: 36.6 (C) / 97.8 (F) Weight: 210 lbs 05/29/2017 Blood Pressure 1: 136/82 Code : 8480-6 Heart Rate 1: 101 bpm Height: 5'6" SpO2: 96% Weight: 05/21/2017 Blood Pressure 1: 14474 Code : 8480-6 Heart Rate 1: 112 bpm Height: 5'6" SpO2: 94% Temperature: 36.7 (C) / 98.1 (F) Weight: 04/20/2017 Blood Pressure 1: 126 Code : 8480-6 BMI: 39.9 Code : 04167-5 Heart Rate 1 : 79 bpm Height: 5'6" SpO2: 97% Weight: 247 lbs 01/26/2017 Blood Pressure 1: 13274 Code : 8480-6 BMI: 37.8 Code : 97143-0 Heart Rate 1 : 74 bpm Height: 5'6" SpO2: 97% Weight: 234 lbs 01/11/2017 Blood Pressure 1: 118/68 Code : 8480-6 BMI: 38.7 Code : 94352-8 Heart Rate 1 : 91 bpm Height: 5'6" SpO2: 96% Weight: 240 lbs 11/30/2016 Blood Pressure 1: 13276 Code : 8480-6 BMI: 38.3 Code : 67664-9 Heart Rate 1 : 71 bpm Height: 5'6" SpO2: 92% Weight: 237 lbs 09/28/2016 Blood Pressure 1: 122/72 Code : 8480-6 BMI: 39.1 Code : 38195-5 Heart Rate 1 : 88 bpm Height: 5'6" SpO2: 94% Weight: 242 lbs 08/24/2016 Blood Pressure 1: 130/87 Code : 8480-6 BMI: 41.5 Code : 32411-4 Heart Rate 1 : 95 bpm Height: 5'6" Respiratory Rate: 16 bpm SpO2: 98% Temperature: 36.9 (C) / 98.5 (F ) Weight: 257 lbs 07/13/2016 Blood Pressure 1: 132/84 Code : 8480-6 BMI: 42.0 Code : 65973-4 Heart Rate 1 : 73 bpm Height: 5'6" SpO2: 97% Weight: 260 lbs 05/19/2016 Blood Pressure 1: 138/76 Code : 8480-6 BMI: 40.8 Code : 00003-0 Heart Rate 1 : 80 bpm Height: 5'6" SpO2: 98% Weight: 253 lbs 03/16/2016 Blood Pressure 1: 122/70 Code : 8480-6 BMI: 40.4 Code : 72971-7 Heart Rate 1 : 72 bpm Height: 5'6" SpO2: 98% Weight: 250 lbs 02/28/2016 Blood Pressure 1: 136/86 Code : 8480-6 BMI: 40.2 Code : 67795-7 Heart Rate 1 : 87 bpm Height: 5'6" SpO2: 96% Temperature: 36.3 (C) / 97.3 (F) Weight: 249 lbs 01/13/2016 Blood Pressure 1: 120/76 Code : 8480-6 BMI: 40.4 Code : 80026-0 Heart Rate 1 : 68 bpm Height: 5'6" SpO2: 97% Weight: 250 lbs 09/27/2015 Blood Pressure 1: 112/70 Code : 8480-6 BMI: 38.4 Code : 74065-6 Heart Rate 1 : 76 bpm Height: 5'6" SpO2: 98% Weight: 238 lbs 08/30/2015 Blood Pressure 1: 144/82 Code : 8480-6 BMI: 39.5 Code : 99510-5 Heart Rate 1 : 82 bpm Height: 5'6" SpO2: 97% Weight: 245 lbs 08/16/2015 Blood Pressure 1: 140/72 Code : 8480-6 BMI: 38.9 Code : 11867-8 Heart Rate 1 : 72 bpm Height: 5'6" SpO2: 97% Weight: 241 lbs 07/15/2015 Blood Pressure 1: 128/80 Code : 8480-6 BMI: 39.3 Code : 79902-8 Heart Rate 1 : 86 bpm Height: 5'6" SpO2: 98% Weight: 243 lbs 8 oz 06/16/2015 Blood Pressure 1: 146/86 Code : 8480-6 BMI: 39.6 Code : 60035-9 Heart Rate 1 : 76 bpm Height: 5'6" SpO2: 97% Weight: 245 lbs 8 oz 04/02/2015 Blood Pressure 1: 132/86 Code : 8480-6 BMI: 40.7 Code : 20636-6 Heart Rate 1 : 94 bpm Height: 5'6" SpO2: 98% Weight: 252 lbs 12/02/2014 Blood Pressure 1: 122/90 Code : 8480-6 BMI: 41.6 Code : 92847-8 Heart Rate 1 : 77 bpm Height: 5'6" SpO2: 95% Weight: 258 lbs Functional Status No Functional Status data History of Present Illness Symptom Name Status Result Effective Date Notes Location oral intake 07/04/2018 None Additional Comments [...] data Encounters Encounter Performer Location Codes Date 84674 EST. PATIENT, LEVEL III Diagnosis: Generalized anxiety disorder[ICD10: F41.1] Diagnosis: Major depressive disorder, single episode, moderate[ICD10: F32.1] Petra Trejo MD, [facility] CPT-4: 13203 07/04/2018 78670 EST. PATIENT, LEVEL IV Diagnosis: Generalized anxiety disorder[ICD10: F41.1] Diagnosis: Major depressive disorder, single episode, moderate[ICD10: F32.1] Diagnosis: Other insomnia[ICD10: G47.09] Petra Trejo MD, [facility] CPT-4 : 02484 06/19/2018 32817 EST. PATIENT, LEVEL IV Diagnosis: Right upper quadrant pain[ICD10: R10.11] Diagnosis: Other chest pain[ICD10: R07.89] Petra Trejo MD, [facility] CPT-4 : 11192 04/24/2018 33892 EST. PATIENT, LEVEL III Diagnosis: Generalized anxiety disorder[ICD10: F41.1] Diagnosis: Major depressive disorder, recurrent, mild[ICD10: F33.0] Diagnosis: Essential (primary) hypertension[ICD10: I10] Diagnosis: Type 2 diabetes mellitus without complications[ICD10: E11.9] Petra Trejo MD , [facility] CPT-4: 26032 04/17/2018 13580 EST. PATIENT, LEVEL III Diagnosis: Localized edema[ICD10: R60.0] Diagnosis: Essential (primary) hypertension[ICD10: I10] Petra Trejo MD, [facility] CPT-4: 20825 03/14/2018 86581 EST. PATIENT, LEVEL III Diagnosis: Pain in left knee[ICD10: M25.562] Diagnosis: Other obesity due to excess calories[ICD10: E66.09] Diagnosis: Other insomnia[ICD10: G47.09] Diagnosis: Generalized anxiety disorder[ICD10: F41.1] Petra Trejo MD, [facility] CPT-4: 46793 02/27/2018 ([id number]) Miscellaneous no charge Diagnosis: Other obesity due to excess calories[ICD10: E66.09] Heidy Trejo MD, [facility] CPT-4: 68230 12/19/2017 74304 EST. PATIENT, LEVEL III Diagnosis: Pain in right foot[ICD10: M79.671] Diagnosis: Pain in right ankle and joints of right foot[ICD10: M25.571] Petra Trejo MD , [facility] CPT-4: 23020 12/04/2017 68837 EST. PATIENT, LEVEL III Diagnosis: Pain in left knee[ICD10: M25.562] Diagnosis: Type 2 diabetes mellitus without complications[ICD10: E11.9] Diagnosis: Other obesity due to excess calories[ICD10: E66.09] Petra Trejo MD, [facility] CPT-4: 79049 11/20/2017 35365 EST. PATIENT, LEVEL III Diagnosis: Pain in left knee[ICD10: M25.562] Petra Trejo MD, [facility] CPT -4: 90166 09/10/2017 61056 EST. PATIENT, LEVEL III Diagnosis: Encounter for follow-up examination after completed treatment for conditions other than malignant neoplasm[ICD10: Z09] Diagnosis: Pain in left knee[ICD10: M25.562] Petra Trejo MD, [facility] CPT -4: 22810 08/14/2017 82559 EST. PATIENT, LEVEL III Diagnosis: Pain in left knee[ICD10: M25.562] Petra Trejo MD, [facility] CPT -4: 05220 07/31/2017 88813 EST. PATIENT, LEVEL III Diagnosis: Acute laryngopharyngitis[ICD10: J06.0] Diagnosis: Other allergic rhinitis[ICD10: J30.89] Petra Trejo MD, [facility] CPT-4: 15486 06/27/2017 68530 EST. PATIENT, LEVEL III Diagnosis: Ganglion, left hand[ICD10: M67.442] Diagnosis: Essential (primary) hypertension[ICD10: I10] Diagnosis: Generalized anxiety disorder[ICD10: F41.1] Diagnosis: Other insomnia[ICD10: G47.09] Petra Trejo MD, [facility] CPT-4 : 50005 05/29/2017 21468 EST. PATIENT, LEVEL III Diagnosis: Essential (primary) hypertension[ICD10: I10] Diagnosis: Palpitations[ICD10: R00.2] Diagnosis: Generalized anxiety disorder[ICD10: F41.1] Petra Trejo MD, [facility] CPT-4: 39910 05/21/2017 26536 EST. PATIENT, LEVEL III Diagnosis: Pain in right foot[ICD10: M79.671] Petra Trejo MD, [facility] CPT-4: 28577 04/20/2017 57423 EST. PATIENT, LEVEL IV Diagnosis: Other insomnia[ICD10: G47.09] Diagnosis: Other skin changes[ICD10: R23.8] Petra Trejo MD, [facility] CPT- 4: 57384 01/26/2017 66975 EST. PATIENT, LEVEL IV Diagnosis: Acute bronchitis due to other specified organisms[ICD10: J20.8] Petra Trejo MD, [facility] CPT-4: 22207 01/11/2017 ([id number]) 74943 EST. PATIENT, LEVEL IV Diagnosis: Essential (primary) hypertension[ICD10: I10] Diagnosis: Other insomnia[ICD10: G47.09] Diagnosis: Primary generalized (osteo)arthritis[ICD10: M15.0] Diagnosis: Other obesity due to excess calories[ICD10: E66.09] Claudette Trejo MD, [facility] CPT-4: 76871 11/30/2016 ([id number]) 42630 EST. PATIENT, LEVEL III Diagnosis: Other obesity due to excess calories[ICD10: E66.09] Diagnosis: Other insomnia[ICD10: G47.09] Diagnosis: Generalized anxiety disorder[ICD10: F41.1] Claudette Trejo MD, [facility] CPT-4: 83303 09/28/2016 ([id number]) 77548 EST. PATIENT, LEVEL IV Diagnosis: Generalized anxiety disorder[ICD10: F41.1] Diagnosis: Major depressive disorder, recurrent, mild[ICD10: F33.0] Diagnosis: Other obesity due to excess calories[ICD10: E66.09] Diagnosis: Other insomnia[ICD10: G47.09] Claudette Trejo MD, [facility] CPT-4: 39377 08/24/2016 ([id number]) 84000 EST. PATIENT, LEVEL III Diagnosis: Other obesity due to excess calories[ICD10: E66.09] Diagnosis: Major depressive disorder, recurrent, moderate[ICD10: F33.1] Diagnosis: Low back pain[ICD10: M54.5] Heidy Trejo MD, [facility] CPT- 4: 95303 07/13/2016 96220 EST. PATIENT, LEVEL IV Diagnosis: Other muscle spasm[ICD10: M62.838] Diagnosis: Generalized anxiety disorder[ICD10: F41.1] Diagnosis: Major depressive disorder, recurrent, moderate[ICD10: F33.1] Diagnosis: Other insomnia[ICD10: G47.09] Petra Trejo MD, [facility] CPT-4 : 92391 05/19/2016 ([id number]) 21147 EST. PATIENT, LEVEL III Diagnosis: Generalized anxiety disorder[ICD10: F41.1] Diagnosis: Major depressive disorder, recurrent, moderate[ICD10: F33.1] Heidy Trejo MD, [facility] CPT-4: 49335 03/16/2016 ([id number]) 33087 EST. PATIENT, LEVEL III Diagnosis: Streptococcal pharyngitis[ICD10: J02.0] Claudette Trejo MD, [facility] CPT-4: 70903 02/28/2016 ([id number]) 32667 EST. PATIENT, LEVEL III Diagnosis: Generalized anxiety disorder[ICD10: F41.1] Diagnosis: Other obesity due to excess calories[ICD10: E66.09] Heidy Trejo MD, [facility] CPT-4: 02628 01/13/2016 ([id number]) 47289 EST. PATIENT, LEVEL III Diagnosis: Generalized anxiety disorder[ICD10: F41.1] Diagnosis: Major depressive disorder, recurrent, unspecified[ICD10: F33.9] Heidy Trejo MD, [facility] CPT-4: 19937 09/27/2015 56635 EST. PATIENT, LEVEL IV Diagnosis: Chronic pain syndrome[ICD10: G89.4] Diagnosis: Other obesity due to excess calories[ICD10: E66.09] Diagnosis: Essential (primary) hypertension[ICD10: I10] Diagnosis: Generalized anxiety disorder[ICD10: F41.1] Diagnosis: Excessive and frequent menstruation with regular cycle[ICD10: N92.0] Diagnosis: Pain in right knee[ICD10: M25.561] Petra Trejo MD, [facility] CPT-4: 43737 08/30/2015 62650 EST. PATIENT, LEVEL IV Diagnosis: Palpitations[ICD10: R00.2] Diagnosis: Other obesity due to excess calories[ICD10: E66.09] Petra Trejo MD, [facility] CPT-4: 88416 08/16/2015 ([id number]) 73461 EST. PATIENT, LEVEL IV Diagnosis: Pain in right knee[ICD10: M25.561] Diagnosis: Primary generalized (osteo)arthritis[ICD10: M15.0] Diagnosis: Acute maxillary sinusitis, unspecified[ICD10: J01.00] Heidy Trejo MD, [facility] CPT-4: 85296 07/15/2015 ([id number]) 44332 EST. PATIENT, LEVEL IV Diagnosis: Primary generalized (osteo)arthritis[ICD10: M15.0] Diagnosis: Restless legs syndrome[ICD10: G25.81] Diagnosis: Chronic pain syndrome[ICD10: G89.4] Heidy Trejo MD, [facility] CPT-4: 84618 06/16/2015 ([id number]) 17323 EST. PATIENT, LEVEL III Diagnosis: Primary generalized (osteo)arthritis[ICD10: M15.0] Diagnosis: Varicose veins of bilateral lower extremities with pain[ICD10: I83.813] Claudette Trejo MD, [facility] CPT-4: 37242 ([id number]) OFFICE VISIT, NEW - LEVEL 3 Diagnosis: Osteoarthritis[ICD9: 715.90] Diagnosis: ABNORMAL WEIGHT GAIN[ICD9: 783.1] Diagnosis: Superficial thrombophlebitis[ICD9: 451.9] Carey Trejo MD, [facility] CPT-4: 77648 12/02/2014 Plan of Care Planned Activity Notes Codes Status Date Visit Plan: Chronic Depression and anxiety - the pt has symptoms of chronic anxiety and depression that have been fairly well controlled since the last office visit. The pt has expected periods of exacerbation with abatement of the symptoms with change in situational exposure. No change in current medications. 07/04/2018 [facility]ment[phone] [place] ([facility] min) Complex 07/04/2018 Patient Education: [...] this patient. 06/19/2018 Appointment: Petra Rivas WPtel: [facility] [place] (15 min) Moderate 06/19/2018 Patient Education: [...] she is to follow up with her director of officiating 04/24/2018 Appointment: Petra Rivas WPtel: [facility] [place] ([facility] min) Complex 04/24/2018 Patient Education: Patient [...] glucose control. 04/17/2018 Appointment: Petra Rivas WPtel: [phone] [facility] (15 min) Moderate 04/17/2018 Patient Education: Patient [...] peripheral edema. 03/14/2018 Appointment: Petra Rivas WPtel: [phone] [facility] (15 min) Moderate 03/14/2018 Patient Education: Patient [...] to ortho 02/27/2018 Appointment: Petra Rivas WPtel: [phone] [facility] (30 min) Complex 02/27/2018 Patient Education: Patient [...] not improve. 12/04/2017 Appointment: [phone] [facility] [place] (15 min) Moderate 12/04/2017 Patient Education: Patient [...] glucose control. 11/20/2017 Appointment: Petra Rivas WPtel: [facility] (15 min) Moderate 11/20/2017 Patient Education: Patient [...] not improve. 09/10/2017 Appointment: Petra Rivas WPtel: [address] [place], [place] [phone] (15 min) Moderate 09/10/2017 Patient Education: Patient [...] not improve. 08/14/2017 Appointment: Petra Rivas WPtel: [address] [place], [place] [address] [place] (30 min) Complex 08/14/2017 Patient Education: Patient Medication Summary Completed 08/14/2017 Appointment: Petra Rivas WPtel: [address] [place], [place] [phone] [place] (15 min) Moderate 08/01/2017 Visit Plan: Knee pain - pt is to use RICE - Rest, Ice, Compression, Elevation - pt is to use crutches as directed - The pt is to use prn antiinflammatories to manage acute pain. The patient is to call the office if the pain is worsening or does not improve. 07/31/2017 Appointment: Petra Rivas WPtel: [facility]5 [facility] (30 min) Complex 07/31/2017 Patient Education: Patient Medication Summary Completed 07/31/2017 Care Plan: [facility] [address] Pending 07/31/2017 Visit Plan: URI - Pt [...] allergy spray. 06/27/2017 Appointment: Petra Rivas WPtel: [facility]5 [facility] (15 min) Moderate 06/27/2017 Patient Education: Patient Medication Summary Completed 06/27/2017 Referral: Jignesh Quinn [facility] Patient informed. Referral info faxed. Completed 06/13/2017 [...] Dr. Quinn 05/29/2017 Appointment: Petra Rivas WPtel: [facility]1 [facility] [place] (15 min) Moderate 05/29/2017 Patient Education: Patient Medication Summary Completed 05/29/2017 Care Plan: Referral Order SNOMED-CT : [id number] Pending 05/29/2017 Appointment: [facility]Ptel[phone] [facility] [place] (15 min) Moderate 05/28/2017 Visit [...] acute concerns. 05/21/2017 Appointment: Petra Rivas WPtel: [facility]5 [facility] (15 min) Moderate 05/21/2017 Patient Education: Patient Medication Summary Completed 05/21/2017 Visit Plan: Right heel pain - will send RX, pt is to do stretches as directed - The pt is to use prn antiinflammatories to manage acute pain. The patient is to call the office if the pain is worsening or does not improve. 04/20/2017 Appointment: Petra Rivas WPtel: [facility]5 [facility] [place] (30 min) Complex 04/20/2017 Patient Education: Patient Medication Summary Completed 04/20/2017 Appointment: Petra Rivas WPtel: [address] [place], [place] [phone] [place] (30 min) Complex 03/29/2017 Patient Education: Patient Medication Summary Completed 03/16/2017 Referral: Maycol Quijano Referral Initiated 02/08/2017 Care Plan: Referral Order SNOMED-CT : [id number] Pending 01/28/2017 Visit Plan: Insomnia - Pt [...] or concerns. 01/26/2017 Appointment: Petra Rivas WPtel: [address] [place], [place] [phone] (30 min) Complex 01/26/2017 Patient Education: Patient [...] acutely worsen. 01/11/2017 Appointment: Petra Rivas WPtel: [facility]5 [facility] (15 min) Moderate 01/11/2017 Patient Education: Patient [...] on use. 11/30/2016 Appointment: Claudette Savage WPtel: [address] [place], [place] [phone] (15 min) Moderate 11/30/2016 Patient Education: Patient Medication Summary Completed 11/30/2016 Patient Education: Obesity Completed 11/30/2016 Care Plan: BMI Above normal followup SELF-MGMT EDUC & TRAIN 1 PT Pending 2016 Visit Plan: Vlycckl-enearnmnwi-spihsqmp with increase in cymbalta-no changes Insomnia-RX for belsomra provided and instructed on use Obesity-patient down 15#-no changes-continue diet/exercise-follow up in 2 months 09/28/2016 Appointment: Claudette Savage WPtel: [address] [place] [address] (15 min) Moderate 09/28/2016 Patient Education: Patient Medication Summary Completed 09/28/2016 Patient Education: Obesity Completed 09/28/2016 Care Plan: BMI Above normal followup SELF-MGMT EDUC & TRAIN 1 PT Pending 2016 Visit Plan: Ypogfem-jqmlvdcwiz-wojbvdun-increase cymbalta to 60mg daily. Increase xanax as [...] for insomnia/anxiety 08/24/2016 Appointment: Claudette Savage WPtel: [address] [place], [place] [phone] [place] (15 min) Moderate 08/24/2016 Patient Education: [...] improving. 07/13/2016 Appointment: Heidy Trejo WPtel: [phone] [facility] (15 min) Moderate 07/13/2016 Patient Education: Patient [...] time insomnia. 05/19/2016 Appointment: Petra Rivas WPtel: [facility]9 [facility] (30 min) Complex 05/19/2016 Patient Education: Patient [...] this patient. 03/16/2016 Appointment: Heidy Trejo WPtel: [phone] [facility] (15 min) Moderate 03/16/2016 Patient Education: Patient [...] swab. 02/28/2016 Appointment: Claudette Savage WPtel: [address] [facility] (10 min) Simple 02/28/2016 Patient Education: Patient [...] stop lexapro 01/13/2016 App[facility]ment: [phone] [place] (15 min) Moderate 01/13/2016 Patient Education: [...] 09/27/2015 Care Plan: Referral Order SNOMED-CT : [id number] Pending 08/31/2015 Visit Plan: Anxiety - the [...] show improvement. 07/15/2015 Appointment: Heidy Trejo WPtel: [phone] [facility] (15 min) Moderate 07/15/2015 Patient Education: Patient [...] vein clinic 04/02/2015 Appointment: [phone] [place] (15 min) Moderate 04/02/2015 Patient [...] Completed 12/02/2014 Referral: Belle Hoffman WPtel: [phone] they will call and set the appt with her Initiated Referral: Maycol Quijano Referral Initiated Referral: Belle Hoffman WPtel: [phone] [facility] Referral Initiated [facility] [place] Referral Initiated Instructions Comment . Hypertension [...] for celebrex provided and instructed on use. . Hypertension - uncontrolled - the patient's [...] to further attempt to reduce peripheral edema. We will check a D-Dimer lab today. [...] for cymbalta - callif not improving. . RUQ pain - pt has had [...] she is to follow up with her director of officiating . Anxiety and Depression- the patient has [...] 1 mg at night for anxiety . Ppjzklh-tovuqcfuof-svmrvtxu-increase cymbalta to 60mg daily. Increase xanax as [...] today - will culture the swab. . Chronic Depression and anxiety - the [...] Knee pain - defer to ortho . Right heel pain - will send RX, pt is to do stretches as directed - The pt is to use prn antiinflammatories to manage acute pain. The patient is to call the office if the pain is worsening or does not improve. . Palpitations - likely anxiety - will [...] is to call for acute concerns. . Chronic Depression and anxiety - the pt has symptoms of chronic anxiety and depression that have been fairly well controlled since the last office visit. The pt has expected periods of exacerbation with abatement of the symptoms with change in situational exposure. No change in current medications. pramipexole - 0.5mg - take at bedtime [...] allow for greater blood glucose control. . Muscle spasms - Will check labs, [...] Daytime napping worsens night time insomnia. . Chronic Depression and anxiety - the [...] allow for greater blood glucose control. . Hospital follow up - This was [...] is worsening or does not improve. . Palpitations - pt states that she [...] RTC in 2 weeks for weight check. BELSOMRA . Jeloabh-yufxaubqdc-afxqtkgn with increase in cymbalta-no changes Insomnia-RX for belsomra provided and instructed on use Obesity-patient down 15#-no changes-continue diet/exercise-follow up in 2 months cymbalta 60mg x 3 days, then cymbalta [...] been appropriately prescribed for this patient. . Knee pain - pt is to use RICE - Rest, Ice, Compression, Elevation - pt is to use crutches as directed - The pt is to use prn antiinflammatories to manage acute pain. The patient is to call the office if the pain is worsening or does not improve. Breathing treatments 3 times a day x [...] not improved, or if symptoms acutely worsen. CALL ME IN 1 MONTH AND LET [...] if symptoms do not show improvement. . URI - Pt advised to increase [...] spray in the nasal steroid allergy spray. Posse contrave 1 pill nightly x 1 week, then one pill twice daily x 1 week, then if needed can increase up to 2 pills twice daily. stop lexapro . Depression and -Obesity - chronic issue with this patient. The pt has been counseled about diet changes, calorie restriction, and need to exercise. Pt will RTC in one month for weight check. Posse contrave 1 pill nightly x 1 week, then one pill twice daily x 1 week, then if needed can increase up to 2 pills twice daily. stop lexapro . Insomnia - Pt has been advised to increase the light in the house during the day, and start dimming the lights during the evening hours. Pt has been advised to cut out caffeine after 5pm. Daytime napping worsens night time insomnia. Changing mole - will refer for removal - pt is to notify clinic with any changes , questions, or concerns. . Anxiety and Depression - uncontrolled - [...] - will refer to Dr. Hoffman . Left knee pain - ongoing - [...]
[2018-07-24] MEDS ORDERED: ASPIRIN 81 MG CHEW (CHILDREN'S ASA) PO ONE (23:00)
--- OUTSIDE RECORDS SUMMARY | 2018-07-24 23:00 | XMS REPORT | CCD ---
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 Name Role Phone PP Unavailable CCM Unavailable Summary Purpose Interface Exchange Insurance Providers Payer name Policy type / Coverage type Covered constitution party ID Effective Begin Date Effective End Date [facility] Commercial Insurance [id number] Unknown Family history Brother Diagnosis Age At [...] Description Effective Dates Tobacco history SNOMED CT: 1205373 Quit less than 5 years ago 04/02/2015 Alcohol history Unknown occasionally drinks alcohol 04/02/2015 Marital status Unknown Manuel Vitale 12/02/2014 Number of children Unknown 3 12/02/2014 Allergies, Adverse Reactions, Alerts Substance Reaction Codes Entered Date Inactivated Date Status * NO KNOWN FOOD ALLERGIES Unknown 12/02/2014 No Inactive Date Active Penicillin Unknown 12/02/2014 No Inactive Date Active tramadol RxNorm: 09304 12/02/2014 No Inactive Date Active Past Medical [...] chloride ER 10 mEq tablet,extended release RxNorm: 277905 1 Tablet(s) PO daily as needed to take when you take the lasix 201808/02/2018 Active Lasix 20 mg tablet RxNorm: 587226 1 Tablet(s) PO daily as needed edema 07/04/2018 08/02/2018 Active Cymbalta 30 mg capsule,delayed release RxNorm: 665693 1 CAPSULE(S) PO DAILY TO BE TAKEN WITH 60MG TO=90MG 07/01/20182018 Active hydrochlorothiazide 25 mg tablet RxNorm: 968609 1 TABLET(S) PO DAILY 06/27/2018 09/24/2018 Active Remeron 15 mg tablet RxNorm: 857906 1/2 Tablet(s) PO QHS 201807/19/2018 Active Lexapro 20 mg tablet RxNorm: 992864 1 Tablet(s) PO daily 201807/18/2018 Active Lasix 20 mg tablet RxNorm: 253812 1 Tablet(s) PO daily 201806/21/2018 Inactive potassium chloride ER 10 mEq tablet,extended release RxNorm: 267367 1 Tablet(s) PO daily 06/19/2018 07/03/2018 Inactive gabapentin 300 mg capsule RxNorm: 128164 1 CAPSULE(S) PO TID 08/12/2018 Active Ambien 10 mg tablet RxNorm: 476129 1 Tablet(s) PO QHS as needed insomnia 06/10/2018 09/07/2018 Active Cymbalta 30 mg capsule,delayed release RxNorm: 418165 1 Capsule(s) PO daily 06/03/2018 06/02/2018 Inactive Cymbalta 30 mg capsule,delayed release RxNorm: 884805 1 Capsule(s) PO daily to be taken with 60mg to=90mg 06/03/20182018 Inactive Protonix 40 mg tablet,delayed release RxNorm: 435460 1 TABLET(S) PO DAILY 05/20/2018 09/16/2018 Active gabapentin 300 mg capsule RxNorm: 813832 1 CAPSULE(S) PO TID 06/13/2018 Inactive Protonix 40 mg tablet,delayed release RxNorm: 796477 1 Tablet(s) PO daily 04/24/2018 05/19/2018 Inactive Zorvolex 35 mg capsule RxNorm: 2529214 TAKE 1 CAPSULE BY MOUTH THREE (3) TIMES DAILY 04/22/2018 08/19/2018 Active hydrochlorothiazide 25 mg tablet RxNorm: 579830 1 TABLET(S) PO DAILY 04/08/2018 06/26/2018 Inactive Zorvolex 35 mg capsule RxNorm: 0436727 TAKE 1 CAPSULE BY MOUTH THREE (3) TIMES DAILY 03/27/2018 04/21/2018 Inactive gabapentin 300 mg capsule RxNorm: 559276 1 CAPSULE(S) PO TID 04/14/2018 Inactive hydrochlorothiazide 25 mg tablet RxNorm: 797839 1 Tablet(s) PO daily 03/14/2018 04/07/2018 Inactive Cymbalta 60 mg capsule,delayed release RxNorm: 101659 1 Capsule(s) PO daily TAKE 1 CAPSULE BY MOUTH DAILY 02/27/20182019 Active Victoza 2-Marek 0.6 mg/0.1 mL (18 mg/3 mL) subcutaneous pen injector RxNorm: 928756 Milligram(s) INJECT 1.8 MG SUB-Q ONCE DAILY 02/27/2018 08/20/2019 Active qty sufficient Xanax 1 mg tablet RxNorm: 283394 1-2 Tablet(s) PO QHS as needed insomnia 02/27/2018 05/27/2018 Inactive atorvastatin 20 mg tablet RxNorm: 453175 1 Tablet(s) PO daily 02/27/2018 05/22/2019 Active Cymbalta 60 mg capsule,delayed release RxNorm: 210012 TAKE 1 CAPSULE BY MOUTH DAILY 02/27/2018 02/26/2018 Inactive gabapentin 300 mg capsule RxNorm: 727410 1 Capsule(s) PO TID 03/24/2018 Inactive meloxicam 7.5 mg tablet RxNorm: 606138 1 Tablet(s) PO daily 1 TABLET(S) PO DAILY 02/27/2018 04/14/2018 Inactive Ambien 10 mg tablet RxNorm: 213507 1 Tablet(s) PO QHS as needed insomnia 02/27/2018 05/25/2018 Inactive atorvastatin 20 mg tablet RxNorm: 281119 1 Tablet(s) PO daily 02/05/2018 02/26/2018 Inactive atorvastatin 20 mg tablet RxNorm: 734003 1 Tablet(s) PO daily 02/05/2018 02/04/2018 Inactive meloxicam 7.5 mg tablet RxNorm: 685616 1 TABLET(S) PO DAILY 02/26/2018 Inactive oxycodone 15 mg tablet RxNorm: 4751920 1 Tablet(s) PO QID as needed 01/07/2018 02/19/2018 Inactive lactulose 20 gram/30 mL oral solution RxNorm: 128799 15-30 Milliliter(s) PO BID as needed 12/31/2017 02/20/2018 Inactive meloxicam 7.5 mg tablet RxNorm: 119367 1 TABLET(S) PO DAILY 06/201701/31/2018 Inactive Zorvolex 35 mg capsule RxNorm: 1818736 1 Capsule(s) PO TID 06/201702/20/2018 Inactive Ambien 10 mg tablet RxNorm: 112432 1 Tablet(s) PO QHS as needed insomnia 12/04/2017 02/26/2018 Inactive oxycodone 15 mg tablet RxNorm: 7431986 1 Tablet(s) PO QID as needed 12/04/2017 01/06/2018 Inactive prednisone 20 mg tablet RxNorm: 785216 2 Tablet(s) PO daily 12/08/2017 Inactive Victoza 2-Marek 0.6 mg/0.1 mL (18 mg/3 mL) subcutaneous pen injector RxNorm: 282549 Milligram(s) INJECT 1.8 MG SUB-Q ONCE DAILY 11/20/2017 02/26/2018 Inactive meloxicam 7.5 mg tablet RxNorm: 885440 1 Tablet(s) PO daily 02/201812/12/2017 Inactive phentermine 37.5 mg tablet RxNorm: 200870 1 Tablet(s) PO daily 11/20/2017 12/19/2017 Inactive Ambien 10 mg tablet RxNorm: 742027 1 Tablet(s) PO QHS as needed insomnia 11/20/2017 12/18/2017 Inactive Xanax 1 mg tablet RxNorm: 630814 1.5 Tablet(s) PO QHS as needed insomnia 11/20/2017 02/26/2018 Inactive hydrocodone 7.5 mg-acetaminophen 325 mg tablet RxNorm: 000681 1 Tablet(s) PO TID as needed 11/16/2017 01/06/2018 Inactive Cymbalta 60 mg capsule,delayed release RxNorm: 241191 TAKE 1 CAPSULE BY MOUTH DAILY 11/02/2017 02/26/2018 Inactive Xanax 1 mg tablet RxNorm: 155235 1 Tablet(s) PO BID PRN as needed anxiety 10/04/2017 11/19/2017 Inactive Victoza 2-Marek 0.6 mg/0.1 mL (18 mg/3 mL) subcutaneous pen injector RxNorm: 779377 INJECT 1.8 MG SUB-Q ONCE DAILY 10/04/2017 11/19/2017 Inactive hydrocodone 7.5 mg-acetaminophen 325 mg tablet RxNorm: 022533 1 Tablet(s) PO TID as needed 09/17/2017 11/15/2017 Inactive hydrocodone 7.5 mg-acetaminophen 325 mg tablet RxNorm: 392840 1 Tablet(s) PO TID as needed 09/10/2017 09/16/2017 Inactive prednisone 10 mg tablet RxNorm: 941606 Tablet(s) PO 09/10/2017 11/13/2017 Inactive 6, 5,4,3,2,1 Zorvolex 35 mg capsule RxNorm: 2054261 1 Capsule(s) PO TID 11/13/2017 Inactive Ambien 10 mg tablet RxNorm: 035419 1 Tablet(s) PO QHS as needed insomnia 08/29/2017 11/19/2017 Inactive Zorvolex 35 mg capsule RxNorm: 6942684 1 Capsule(s) PO TID 09/06/2017 Inactive Zorvolex 35 mg capsule RxNorm: 5827742 1 Capsule(s) PO TID 06/201708/27/2017 Inactive Zorvolex 35 mg capsule RxNorm: 1474318 1 Capsule(s) PO TID 06/201708/12/2017 Inactive prednisone 20 mg tablet RxNorm: 673237 2 Tablet(s) PO daily 08/04/2017 Inactive hydrocodone 7.5 mg-acetaminophen 325 mg tablet RxNorm: 825507 1 Tablet(s) PO TID as needed 07/31/2017 09/09/2017 Inactive Zorvolex 35 mg capsule RxNorm: 6453131 1 Capsule(s) PO TID as needed 07/31/2017 11/13/2017 Inactive ceftriaxone 500 mg solution for injection RxNorm: 6610198 1 Milliliter(s) Inj 06/27/2017 06/27/2017 Inactive Keflex 500 mg capsule RxNorm: 410181 1 Capsule(s) PO TID 201707/03/2017 Inactive Ambien 10 mg tablet RxNorm: 646999 1 Tablet(s) PO daily 201708/25/2017 Inactive tramadol 50 mg tablet RxNorm: 965459 1 Tablet(s) PO TID as needed 05/29/2017 07/27/2017 Inactive Xanax 1 mg tablet RxNorm: 478975 1 Tablet(s) PO BID PRN as needed anxiety 05/21/2017 10/03/2017 Inactive alprazolam 1 mg tablet RxNorm: 458972 1 Tablet(s) PO BID as needed 05/21/2017 06/19/2017 Inactive Celebrex 200 mg capsule RxNorm: 044223 1 CAPSULE(S) PO BID 11/05/2017 Inactive prednisone 20 mg tablet RxNorm: 856977 2 Tablet(s) PO daily 12/201604/24/2017 Inactive Ambien 10 mg tablet RxNorm: 430936 Tablet(s) PO 04/20/2017 05/28/2017 Inactive hydrocodone 5 mg-acetaminophen 325 mg tablet RxNorm: 550372 1 Tablet(s) PO QID as needed 04/20/2017 08/01/2017 Inactive Cymbalta 60 mg capsule,delayed release RxNorm: 320030 1 Capsule(s) PO daily 04/20/2017 02/26/2018 Inactive Victoza 2-Marek 0.6 mg/0.1 mL (18 mg/3 mL) subcutaneous pen injector RxNorm: 370433 INJECT 1.8 MG SUB-Q ONCE DAILY 03/26/2017 09/21/2017 Inactive diazepam 2 mg tablet RxNorm: 379078 1 Tablet(s) PO QHS as needed insomnia 01/28/2017 05/07/2017 Inactive Victoza 2-Marek 0.6 mg/0.1 mL (18 mg/3 mL) subcutaneous pen injector RxNorm: 571397 1.8 Milligram(s) SQ daily 01/26/201703/25 Inactive dispense quantity sufficient Tussionex Pennkinetic ER 10 mg-8 mg/5 mL suspension, extended release RxNorm: 9851817 5 Milliliter(s) PO BID 01/11/2017 01/15/2017 Inactive Xanax 1 mg tablet RxNorm: 885248 1 Tablet(s) PO BID PRN as needed anxiety 01/11/2017 05/20/2017 Inactive Zithromax Z-Marek 250 mg tablet RxNorm: 237592 1 Tablet(s) PO UD 01/11/2017 01/15/2017 Inactive zpack albuterol sulfate 2.5 mg/3 mL (0.083 %) solution for nebulization RxNorm: 232309 3 Milliliter(s) INH UD 01/11/201707/2017 Inactive prednisone 20 mg tablet RxNorm: 524169 2 Tablet(s) PO daily 01/15/2017 Inactive Kenalog 40 mg/mL suspension for injection RxNorm: 1807069 1.5 Milliliter(s) Inj 01/11/2017 01/11/2017 Inactive Celebrex 200 mg capsule RxNorm: 407996 1 Capsule(s) PO BID 02/27/2017 Inactive Ambien 5 mg tablet RxNorm: 965259 1 Tablet(s) PO HS PRN 11/3008/07/2017 Inactive trazodone 50 mg tablet RxNorm: 698682 1/2 to 1 Tablet(s) PO QHS 10/13/2016 10/12/2016 Inactive trazodone 50 mg tablet RxNorm: 096958 1/2 to 1 Tablet(s) PO QHS 10/13/2016 11/29/2016 Inactive Belsomra 10 mg tablet RxNorm: 4905625 1 Tablet(s) PO QHS 201611/29/2016 Inactive may increase to 20mg if 10mg not effective Cymbalta 60 mg capsule,delayed release RxNorm: 901395 1 Capsule(s) PO daily 08/24/2016 03/21/2017 Inactive Xanax 1 mg tablet RxNorm: 475594 1 Tablet(s) PO BID PRN as needed anxiety 08/24/2016 01/10/2017 Inactive Victoza 2-Marek 0.6 mg/0.1 mL (18 mg/3 mL) subcutaneous pen injector RxNorm: 107757 Milligram(s) SQ 08/24/2016 08/23/2016 Inactive Victoza 2-Marek 0.6 mg/0.1 mL (18 mg/3 mL) subcutaneous pen injector RxNorm: 037835 1.8 Milligram(s) SQ 08/24/2016 01/25/2017 Inactive Vitamin D2 50,000 unit capsule RxNorm: 863901 1 Capsule(s) PO QW 07/13/2016 10/10/2016 Inactive Cymbalta 30 mg capsule,delayed release RxNorm: 899191 1 Capsule(s) PO daily 07/13/2016 08/23/2016 Inactive Belviq XR 20 mg tablet,extended release RxNorm: 0975478 1 Tablet(s) PO daily 05/30/2016 05/29/2016 Inactive prednisone 20 mg tablet RxNorm: 050001 2 Tablet(s) PO daily 06/03/2016 Inactive prednisone 20 mg tablet RxNorm: 951212 2 Tablet(s) PO daily 05/29/2016 Inactive Belviq XR 20 mg tablet,extended release RxNorm: 4821531 1 Tablet(s) PO daily 05/30/2016 06/28/2016 Inactive cyclobenzaprine 5 mg tablet RxNorm: 184651 1-2 Tablet(s) PO TID as needed 05/19/2016 05/23/2016 Inactive metoprolol succinate ER 25 mg tablet,extended release 24 hr RxNorm: 411071 1 Tablet(s) PO QPM 04/10/2016 04/13/2016 Inactive metoprolol succinate ER 25 mg tablet,extended release 24 hr RxNorm: 913538 1 Tablet(s) PO QPM 04/10/2016 04/09/2016 Inactive escitalopram 10 mg tablet RxNorm: 443025 1 Tablet(s) PO daily 03/16/2016 07/12/2016 Inactive estradiol 1 mg tablet RxNorm: 219653 1 Tablet(s) PO every other day 03/16/2016 05/15/2016 Inactive Kenalog 40 mg/mL suspension for injection RxNorm: 7991699 Milliliter(s) Inj 02/28/2016 02/28/2016 Inactive Zithromax Z-Marek 250 mg tablet RxNorm: 023260 1 Tablet(s) PO UD 02/28/2016 03/03/2016 Inactive zpack Lexapro 10 mg tablet RxNorm: 452202 1 Tablet(s) PO daily 201502/27/2016 Inactive Lexapro 10 mg tablet RxNorm: 400675 1 Tablet(s) PO daily 201509/26/2015 Inactive Vimovo 500 mg-20 mg tablet,immediate and delay release RxNorm: 609213 1 Tablet(s) PO BID as needed for pain 08/30/201509/25 Inactive azithromycin 250 mg tablet RxNorm: 355375 1 Tablet(s) PO UD 2 pills on day #1, then one pill daily x 4 days 07/15/2015 Inactive hydrocodone 10 mg-acetaminophen 325 mg tablet RxNorm: 877860 1 Tablet(s) PO QID 06/16/2015 01/12/2016 Inactive pramipexole 0.5 mg tablet RxNorm: 292840 1 Tablet(s) PO QPM 07/201507/14/2015 Inactive Celebrex 200 mg capsule RxNorm: 249571 1 Capsule(s) PO daily 05/02/2015 Inactive Celebrex 200 mg capsule RxNorm: 476103 1 Capsule(s) PO daily 01/12/2016 Inactive hydrocodone 7.5 mg-acetaminophen 325 mg tablet RxNorm: 331486 1 Tablet(s) PO Q6 PRN 05/03/2015 06/15/2015 Inactive Mobic 15 mg tablet RxNorm: 001521 1 Tablet(s) PO daily 201405/02/2015 Inactive hydrocodone 7.5 mg-acetaminophen 325 mg tablet RxNorm: 752941 1 Tablet(s) PO Q6 PRN 04/02/2015 05/02/2015 Inactive hydrocodone 5 mg-acetaminophen 325 mg tablet RxNorm: 100717 1 Tablet(s) PO Q6 as needed 12/11/2014 04/01/2015 Inactive Pennsaid 1.5 % topical drops RxNorm: 684494 40 Drop(s) TOP QID as needed 12/07/2014 02/04/2015 Inactive Apply 40 drops to each knee joint 4 times per day as needed for osteoarthritis pain estradiol 1 mg tablet RxNorm: 001908 1 Tablet(s) PO QHS No Start Date 03/15/2016 Inactive Xanax 0.5 mg tablet RxNorm: 221768 1 Tablet(s) PO Q6 as needed anxiety No Start Date 08/23/2016 Inactive Tylenol Extra Strength 500 mg tablet RxNorm: 259347 3 Tablet(s) PO BID after breakfast and after lunch No Start Date Inactive lactulose 20 gram/30 mL oral solution RxNorm: 408712 15-30 Milliliter(s) PO BID as needed No Start Date 12/30/2017 Inactive hydrocodone 5 mg-acetaminophen 325 mg tablet RxNorm: 247156 1 Tablet(s) PO Q6 as needed No Start Date 12/10/2014 Inactive Phenergan-Codeine syrup RxNorm: 5-10 Milliliter(s) PO QID as needed No Start Date 11/13/2017 Inactive ibuprofen 200 mg capsule RxNorm: 292991 4 Capsule(s) PO QID as needed No Start Date 04/01/2015 Inactive Medication Administered Medication Codes Instructions Start Date Status ceftriaxone 500 mg solution for injection RxNorm: 3129086 1Milliliter 06/27/2017 No longer Active Kenalog 40 mg/mL suspension for injection RxNorm: 0654248 1.5Milliliter 01/11/2017 No longer Active Kenalog 40 mg/mL suspension for injection RxNorm: 6453803 Milliliter 02/28/2016 No longer Active Immunizations Vaccine [...] Code Item Item Code Result Date %Hba1C Etr390 % HbA1c 46684-7 6.7 % 11/20/2017 %Hba1C Pde892 Gluc Ave 146 mg/dL 11/20/2017 Free T4 Poh659 FREE T4 0.76 ng/dL 05/21/2017 Tsh Ord6 hTSH II 1.27 uIU/mL 05/21/2017 Comp Metabolic Lvy749 NA 140 mEq/L 05/21/2017 Comp Metabolic Jlw708 K 3.9 mEq/L 05/21/2017 Comp Metabolic Ymo058 CL 101 mEq/L 05/21/2017 Comp Metabolic Ocs014 CO2 28.0 mEq/L 05/21/2017 Comp Metabolic Whq501 ANION GAP 15 05/21/2017 Comp Metabolic Bhr093 GLUCOSE 155 mg/dL 05/21/2017 Comp Metabolic Awl513 Creat 0.7 mg/dL 05/21/2017 Comp Metabolic Alg764 eGFR 87 ml/min/1.73m2 05/21/2017 Comp Metabolic Vvl926 BUN 16 mg/dL 05/21/2017 Comp Metabolic Agv278 B/C Ratio 21.6 Ratio 05/21/2017 Comp Metabolic Qpz316 CALCIUM 9.4 mg/dL 05/21/2017 Comp Metabolic Kxm415 ALK PHOS 132 U/L 05/21/2017 Comp Metabolic Irb940 AST(SGOT) 16 U/L 05/21/2017 Comp Metabolic Web983 ALT(SGPT) 20 U/L 05/21/2017 Comp Metabolic Rtv419 BILI T 0.4 mg/dL 05/21/2017 Comp Metabolic Lnc593 ALBUMIN 4.0 g/dL 05/21/2017 Comp Metabolic Nor356 TPRO 6.7 g/dL 05/21/2017 Comp Metabolic Ypi042 GLOB 2.7 g/dL 05/21/2017 Comp Metabolic Qpx597 A/G Ratio 1.5 Ratio 05/21/2017 Comp Metabolic Wwd765 Osmo 284 mOsmo 05/21/2017 Cbc With Differential [...] 28.9 pg 05/21/2017 Cbc With Differential Ord2 Patrick% 5.5 % 05/21/2017 Cbc With Differential Ord2 [...] 2.65 K/ul 05/21/2017 Cbc With Differential Ord2 Patrick ABS# 0.8 K/ul 05/21/2017 Cbc With Differential Ord2 Eos ABS# 0.1 K/ul 05/21/2017 Cbc With Differential Ord2 Baso ABS# 0.0 K/ul 05/21/2017 Estrogens Total 507494 ESTROGENS, TOTAL 54 pg/mL 05/24/2016 Magnesium Ord90 Mag 1.8 mg/dL 05/19/2016 Tsh Ord6 hTSH II 1.56 uIU/mL 05/19/2016 Progesterone Prog 0.03 ng/mL 05/19/2016 Comp Metabolic Emq673 NA 136 mEq/L 05/19/2016 Comp Metabolic Cnp913 K 4.3 mEq/L 05/19/2016 Comp Metabolic Fkq514 CL 100 mEq/L 05/19/2016 Comp Metabolic Ncd846 CO2 28.0 mEq/L 05/19/2016 Comp Metabolic Uyq178 ANION GAP 12 05/19/2016 Comp Metabolic Mwe106 GLUCOSE 138 mg/dL 05/19/2016 Comp Metabolic Vgn503 Creat 0.7 mg/dL 05/19/2016 Comp Metabolic Nnu911 eGFR 89 ml/min/1.73m2 05/19/2016 Comp Metabolic Cil863 BUN 15 mg/dL 05/19/2016 Comp Metabolic Jpa387 B/C Ratio 20.5 Ratio 05/19/2016 Comp Metabolic Nnn742 CALCIUM 9.7 mg/dL 05/19/2016 Comp Metabolic Nju033 ALK PHOS 106 U/L 05/19/2016 Comp Metabolic Qwe519 AST(SGOT) 21 U/L 05/19/2016 Comp Metabolic Ynv818 ALT(SGPT) 24 U/L 05/19/2016 Comp Metabolic Jei722 BILI T 0.4 mg/dL 05/19/2016 Comp Metabolic Mya630 ALBUMIN 4.1 g/dL 05/19/2016 Comp Metabolic Gem511 TPRO 7.1 g/dL 05/19/2016 Comp Metabolic Tlo484 GLOB 3.0 g/dL 05/19/2016 Comp Metabolic Efs871 A/G Ratio 1.4 Ratio 05/19/2016 Comp Metabolic Vga080 Osmo 275 mOsmo 05/19/2016 Cbc With Differential [...] 86.5 fl 05/19/2016 Cbc With Differential Ord2 Patrick% 6.5 % 05/19/2016 Cbc With Differential Ord2 [...] 2.33 K/ul 05/19/2016 Cbc With Differential Ord2 Patrick ABS# 0.6 K/ul 05/19/2016 Cbc With Differential Ord2 Eos ABS# 0.1 K/ul 05/19/2016 Cbc With Differential Ord2 Baso ABS# 0.0 K/ul 05/19/2016 C RAP A SC 7430709 Strep A Negative 02/28/2016 Tsh Ord6 hTSH [...] 26.2 pg 08/16/2015 Cbc With Differential Ord2 Patrick% 7.1 % 08/16/2015 Cbc With Differential Ord2 [...] 2.32 K/ul 08/16/2015 Cbc With Differential Ord2 Patrick ABS# 0.6 K/ul 08/16/2015 Cbc With Differential Ord2 Eos ABS# 0.1 K/ul 08/16/2015 Cbc With Differential Ord2 Baso ABS# 0.0 K/ul 08/16/2015 Cbc With Differential Ord2 New Analyzer Notice Please note new ref ranges starting 05-26-2015 due to implemntation of new five part differential hematolgy analyzer. 08/16/2015 Comp Metabolic Wds398 NA 132 mEq/L 08/16/2015 Comp Metabolic Wro812 K 3.6 mEq/L 08/16/2015 Comp Metabolic Ogt635 CL 99 mEq/L 08/16/2015 Comp Metabolic Hlc154 CO2 23.0 mEq/L 08/16/2015 Comp Metabolic Ftt682 ANION GAP 14 08/16/2015 Comp Metabolic Wyy796 GLUCOSE 101 mg/dL 08/16/2015 Comp Metabolic Gsg747 Creat 0.7 mg/dL 08/16/2015 Comp Metabolic Ydn563 eGFR 100 ml/min/1.73m2 08/16/2015 Comp Metabolic Ibr878 BUN 10 mg/dL 08/16/2015 Comp Metabolic Huk527 B/C Ratio 15.2 Ratio 08/16/2015 Comp Metabolic Tds372 CALCIUM 9.3 mg/dL 08/16/2015 Comp Metabolic Ojv830 ALK PHOS 100 U/L 08/16/2015 Comp Metabolic Fqg465 AST(SGOT) 14 U/L 08/16/2015 Comp Metabolic Bux460 ALT(SGPT) 11 U/L 08/16/2015 Comp Metabolic Hzh080 BILI T 0.3 mg/dL 08/16/2015 Comp Metabolic Kwm140 ALBUMIN 3.9 g/dL 08/16/2015 Comp Metabolic Dce492 TPRO 7.1 g/dL 08/16/2015 Comp Metabolic Nuq432 GLOB 3.2 g/dL 08/16/2015 Comp Metabolic Gyh718 A/G Ratio 1.2 Ratio 08/16/2015 Comp Metabolic Csy707 Osmo 264 mOsmo 08/16/2015 Lipid Ord30 CHOL 209 mg/dL 12/03/2014 Lipid Ord30 HDL 42.0 mg/dl 12/03/2014 Lipid Ord30 TRIG 219 mg/dL 12/03/2014 Lipid Ord30 LDL 123 mg/dL 12/03/2014 Lipid Ord30 C/HDL 5.0 Ratio 12/03/2014 Comp Metabolic Ozk184 NA 132 mEq/L 12/03/2014 Comp Metabolic Mai473 K 4.0 mEq/L 12/03/2014 Comp Metabolic Zpc149 CL 101 mEq/L 12/03/2014 Comp Metabolic Hoa578 CO2 22.0 mEq/L 12/03/2014 Comp Metabolic Avv599 ANION GAP 13 12/03/2014 Comp Metabolic Dmp709 GLUCOSE 123 mg/dL 12/03/2014 Comp Metabolic Cai681 Creat 0.7 mg/dL 12/03/2014 Comp Metabolic Vjr343 eGFR 97 ml/min/1.73m2 12/03/2014 Comp Metabolic Bru259 BUN 10 mg/dL 12/03/2014 Comp Metabolic Zjg422 B/C Ratio 14.7 Ratio 12/03/2014 Comp Metabolic Ufg554 CALCIUM 9.2 mg/dL 12/03/2014 Comp Metabolic Lon959 ALK PHOS 88 U/L 12/03/2014 Comp Metabolic Stc193 AST(SGOT) 18 U/L 12/03/2014 Comp Metabolic Flc494 ALT(SGPT) 17 U/L 12/03/2014 Comp Metabolic Kze641 BILI T 0.5 mg/dL 12/03/2014 Comp Metabolic Dez514 ALBUMIN 3.9 g/dL 12/03/2014 Comp Metabolic Oiv235 TPRO 6.8 g/dL 12/03/2014 Comp Metabolic Bsc321 GLOB 2.9 g/dL 12/03/2014 Comp Metabolic Pgv742 A/G Ratio 1.3 Ratio 12/03/2014 Comp Metabolic Ehf043 Osmo 265 mOsmo 12/03/2014 Tsh Ord6 hTSH [...] Procedure Codes Date THER/PROPH/DIAG INJ SC/IM CPT-4: 57176 06/27/2017 ROCEPHIN, PER 250 MG CPT-4: J0696 06/27/2017 IMMUNIZATION ADMIN CPT -4: 56186 03/16/2017 FLU VAC NO PRSV 4 FLETCHER 3 YRS+ CPT-4: 06068 03/16/2017 Pneumococcal Polysaccharide Vaccine, 23-Valent, Ad CPT-4: 38845 03/16/2017 IMMUNIZATION ADMIN EACH ADD CPT-4: 57524 03/16/2017 TRIAMCINOLONE ACET INJ NOS CPT-4: J3301 01/11/2017 TRIAMCINOLONE ACET INJ NOS CPT-4: J3301 02/28/2016 Vital Signs Date Vital 07/04/2018 Blood Pressure 1: 132/76 Code : 8480-6 Heart Rate 1: 80 bpm Height: SpO2: 97% Weight: 06/19/2018 Blood Pressure 1: 124/74 Code : 8480-6 BMI: 38.6 Code : 81620-4 Heart Rate 1 : 85 bpm Height: 5'6" SpO2: 95% Weight: 239 lbs 04/24/2018 Blood Pressure 1: 128/74 Code : 8480-6 BMI: 37.8 Code : 51773-4 Heart Rate 1 : 107 bpm Height: 5'6" SpO2: 98% Weight: 234 lbs 04/17/2018 Blood Pressure 1: 120/64 Code : 8480-6 BMI: 37.8 Code : 61582-7 Heart Rate 1 : 84 bpm Height: 5'6" SpO2: 96% Weight: 234 lbs 03/14/2018 Blood Pressure 1: 140/82 Code : 8480-6 BMI: 37.8 Code : 02062-9 Heart Rate 1 : 85 bpm Height: 5'6" SpO2: 98% Weight: 234 lbs 02/27/2018 Blood Pressure 1: 142/68 Code : 8480-6 BMI: 36.5 Code : 10623-7 Heart Rate 1 : 84 bpm Height: 5'6" SpO2: 97% Weight: 226 lbs 12/19/2017 Blood Pressure 1: 130/86 Code : 8480-6 BMI: 35.7 Code : 77447-8 Heart Rate 1 : 94 bpm Height: 5'6" Weight: 221 lbs 12/04/2017 Blood Pressure 1: 138/78 Code : 8480-6 BMI: 36.6 Code : 31411-6 Heart Rate 1 : 94 bpm Height: 5'6" SpO2: 98% Weight: 227 lbs 11/20/2017 Weight: 233 lbs 09/10/2017 Blood Pressure 1: 132/86 Code : 8480-6 Heart Rate 1: 86 bpm Height: Weight: 08/14/2017 Blood Pressure 1: 120/74 Code : 8480-6 BMI: 33.9 Code : 25973-5 Heart Rate 1 : 92 bpm Height: 5'6" SpO2: 94% Weight: 210 lbs 07/31/2017 Blood Pressure 1: 140/80 Code : 8480-6 BMI: 33.9 Code : 70471-7 Heart Rate 1 : 96 bpm Height: 5'6" SpO2: 97% Weight: 210 lbs 06/27/2017 Blood Pressure 1: 128/80 Code : 8480-6 BMI: 33.9 Code : 26069-5 Heart Rate 1 : 85 bpm Height: [...] Code : 8480-6 BMI: 39.9 Code : 34653-0 Heart Rate 1 : 79 bpm Height: 5'6" SpO2: 97% Weight: 247 lbs 01/26/2017 Blood Pressure 1: 13274 Code : 8480-6 BMI: 37.8 Code : 58838-6 Heart Rate 1 : 74 bpm Height: 5'6" SpO2: 97% Weight: 234 lbs 01/11/2017 Blood Pressure 1: 118/68 Code : 8480-6 BMI: 38.7 Code : 65831-5 Heart Rate 1 : 91 bpm Height: 5'6" SpO2: 96% Weight: 240 lbs 11/30/2016 Blood Pressure 1: 13276 Code : 8480-6 BMI: 38.3 Code : 54647-9 Heart Rate 1 : 71 bpm Height: 5'6" SpO2: 92% Weight: 237 lbs 09/28/2016 Blood Pressure 1: 122/72 Code : 8480-6 BMI: 39.1 Code : 93122-1 Heart Rate 1 : 88 bpm Height: 5'6" SpO2: 94% Weight: 242 lbs 08/24/2016 Blood Pressure 1: 130/87 Code : 8480-6 BMI: 41.5 Code : 49273-7 Heart Rate 1 : 95 bpm Height: 5'6" Respiratory Rate: 16 bpm SpO2: 98% Temperature: 36.9 (C) / 98.5 (F ) Weight: 257 lbs 07/13/2016 Blood Pressure 1: 132/84 Code : 8480-6 BMI: 42.0 Code : 61194-4 Heart Rate 1 : 73 bpm Height: 5'6" SpO2: 97% Weight: 260 lbs 05/19/2016 Blood Pressure 1: 138/76 Code : 8480-6 BMI: 40.8 Code : 58829-3 Heart Rate 1 : 80 bpm Height: 5'6" SpO2: 98% Weight: 253 lbs 03/16/2016 Blood Pressure 1: 122/70 Code : 8480-6 BMI: 40.4 Code : 43308-5 Heart Rate 1 : 72 bpm Height: 5'6" SpO2: 98% Weight: 250 lbs 02/28/2016 Blood Pressure 1: 136/86 Code : 8480-6 BMI: 40.2 Code : 48738-9 Heart Rate 1 : 87 bpm Height: 5'6" SpO2: 96% Temperature: 36.3 (C) / 97.3 (F) Weight: 249 lbs 01/13/2016 Blood Pressure 1: 120/76 Code : 8480-6 BMI: 40.4 Code : 12426-7 Heart Rate 1 : 68 bpm Height: 5'6" SpO2: 97% Weight: 250 lbs 09/27/2015 Blood Pressure 1: 112/70 Code : 8480-6 BMI: 38.4 Code : 14799-9 Heart Rate 1 : 76 bpm Height: 5'6" SpO2: 98% Weight: 238 lbs 08/30/2015 Blood Pressure 1: 144/82 Code : 8480-6 BMI: 39.5 Code : 07906-5 Heart Rate 1 : 82 bpm Height: 5'6" SpO2: 97% Weight: 245 lbs 08/16/2015 Blood Pressure 1: 140/72 Code : 8480-6 BMI: 38.9 Code : 20689-3 Heart Rate 1 : 72 bpm Height: 5'6" SpO2: 97% Weight: 241 lbs 07/15/2015 Blood Pressure 1: 128/80 Code : 8480-6 BMI: 39.3 Code : 11137-5 Heart Rate 1 : 86 bpm Height: 5'6" SpO2: 98% Weight: 243 lbs 8 oz 06/16/2015 Blood Pressure 1: 146/86 Code : 8480-6 BMI: 39.6 Code : 41490-2 Heart Rate 1 : 76 bpm Height: 5'6" SpO2: 97% Weight: 245 lbs 8 oz 04/02/2015 Blood Pressure 1: 132/86 Code : 8480-6 BMI: 40.7 Code : 70829-2 Heart Rate 1 : 94 bpm Height: 5'6" SpO2: 98% Weight: 252 lbs 12/02/2014 Blood Pressure 1: 122/90 Code : 8480-6 BMI: 41.6 Code : 76659-1 Heart Rate 1 : 77 bpm Height: [...] data Encounters Encounter Performer Location Codes Date 32011 EST. PATIENT, LEVEL III Diagnosis: Generalized anxiety disorder[ICD10: F41.1] Diagnosis: Major depressive disorder, single episode, moderate[ICD10: F32.1] Petra Trejo MD, [facility] CPT-4: 91922 07/04/2018 61757 EST. PATIENT, LEVEL IV Diagnosis: Generalized anxiety disorder[ICD10: F41.1] Diagnosis: Major depressive disorder, single episode, moderate[ICD10: F32.1] Diagnosis: Other insomnia[ICD10: G47.09] Petra Trejo MD, [facility] CPT-4 : 24890 06/19/2018 [id number] EST. PATIENT, LEVEL IV Diagnosis: Right upper quadrant pain[ICD10: R10.11] Diagnosis: Other chest pain[ICD10: R07.89] Petra Trejo MD, [facility] CPT-4 : 30672 04/24/2018 88056 EST. PATIENT, LEVEL III Diagnosis: Generalized anxiety disorder[ICD10: F41.1] Diagnosis: Major depressive disorder, recurrent, mild[ICD10: F33.0] Diagnosis: Essential (primary) hypertension[ICD10: I10] Diagnosis: Type 2 diabetes mellitus without complications[ICD10: E11.9] Petra Trejo MD , [facility] CPT-4: 80455 04/17/2018 00678 EST. PATIENT, LEVEL III Diagnosis: Localized edema[ICD10: R60.0] Diagnosis: Essential (primary) hypertension[ICD10: I10] Petra Trejo MD, [facility] CPT-4: 50559 03/14/2018 67192 EST. PATIENT, LEVEL III Diagnosis: Pain in left knee[ICD10: M25.562] Diagnosis: Other obesity due to excess calories[ICD10: E66.09] Diagnosis: Other insomnia[ICD10: G47.09] Diagnosis: Generalized anxiety disorder[ICD10: F41.1] Petra Trejo MD, [facility] CPT-4: 26057 02/27/2018 ([id number]) Miscellaneous no charge Diagnosis: Other obesity due to excess calories[ICD10: E66.09] Heidy Trejo MD, [facility] CPT-4: 63930 12/19/2017 58586 EST. PATIENT, LEVEL III Diagnosis: Pain in right foot[ICD10: M79.671] Diagnosis: Pain in right ankle and joints of right foot[ICD10: M25.571] Petra Trejo MD , [facility] CPT-4: 35211 12/04/2017 79599 EST. PATIENT, LEVEL III Diagnosis: Pain in left knee[ICD10: M25.562] Diagnosis: Type 2 diabetes mellitus without complications[ICD10: E11.9] Diagnosis: Other obesity due to excess calories[ICD10: E66.09] Petra Trejo MD, [facility] CPT-4: 77215 11/20/2017 03749 EST. PATIENT, LEVEL III Diagnosis: Pain in left knee[ICD10: M25.562] Petra Trejo MD, [facility] CPT -4: 69442 09/10/2017 37264 EST. PATIENT, LEVEL III Diagnosis: Encounter for follow-up examination after completed treatment for conditions other than malignant neoplasm[ICD10: Z09] Diagnosis: Pain in left knee[ICD10: M25.562] Petra Trejo MD, [facility] CPT -4: 68818 08/14/2017 25459 EST. PATIENT, LEVEL III Diagnosis: Pain in left knee[ICD10: M25.562] Petra Trejo MD, [facility] CPT -4: 61500 07/31/2017 86249 EST. PATIENT, LEVEL III Diagnosis: Acute laryngopharyngitis[ICD10: J06.0] Diagnosis: Other allergic rhinitis[ICD10: J30.89] Petra Trejo MD, [facility] CPT-4: 21893 06/27/2017 62825 EST. PATIENT, LEVEL III Diagnosis: Ganglion, left hand[ICD10: M67.442] Diagnosis: Essential (primary) hypertension[ICD10: I10] Diagnosis: Generalized anxiety disorder[ICD10: F41.1] Diagnosis: Other insomnia[ICD10: G47.09] Petra Trejo MD, [facility] CPT-4 : 96378 05/29/2017 97214 EST. PATIENT, LEVEL III Diagnosis: Essential (primary) hypertension[ICD10: I10] Diagnosis: Palpitations[ICD10: R00.2] Diagnosis: Generalized anxiety disorder[ICD10: F41.1] Petra Trejo MD, [facility] CPT-4: 11307 05/21/2017 84062 EST. PATIENT, LEVEL III Diagnosis: Pain in right foot[ICD10: M79.671] Petra Trejo MD, [facility] CPT-4: 91361 04/20/2017 87476 EST. PATIENT, LEVEL IV Diagnosis: Other insomnia[ICD10: G47.09] Diagnosis: Other skin changes[ICD10: R23.8] Petra Trejo MD, [facility] CPT- 4: 79186 01/26/2017 95228 EST. PATIENT, LEVEL IV Diagnosis: Acute bronchitis due to other specified organisms[ICD10: J20.8] Petra Trejo MD, [facility] CPT-4: 60021 01/11/2017 ([id number]) 94141 EST. PATIENT, LEVEL IV Diagnosis: Essential (primary) hypertension[ICD10: I10] Diagnosis: Other insomnia[ICD10: G47.09] Diagnosis: Primary generalized (osteo)arthritis[ICD10: M15.0] Diagnosis: Other obesity due to excess calories[ICD10: E66.09] Claudette Trejo MD, [facility] CPT-4: 77996 11/30/2016 ([id number]) 12653 EST. PATIENT, LEVEL III Diagnosis: Other obesity due to excess calories[ICD10: E66.09] Diagnosis: Other insomnia[ICD10: G47.09] Diagnosis: Generalized anxiety disorder[ICD10: F41.1] Claudette Trejo MD, [facility] CPT-4: 54616 09/28/2016 ([id number]) 32429 EST. PATIENT, LEVEL IV Diagnosis: Generalized anxiety disorder[ICD10: F41.1] Diagnosis: Major depressive disorder, recurrent, mild[ICD10: F33.0] Diagnosis: Other obesity due to excess calories[ICD10: E66.09] Diagnosis: Other insomnia[ICD10: G47.09] Claudette Trejo MD, [facility] CPT-4: 05137 08/24/2016 ([id number]) 66117 EST. PATIENT, LEVEL III Diagnosis: Other obesity due to excess calories[ICD10: E66.09] Diagnosis: Major depressive disorder, recurrent, moderate[ICD10: F33.1] Diagnosis: Low back pain[ICD10: M54.5] Heidy Trejo MD, [facility] CPT- 4: 41466 07/13/2016 98616 EST. PATIENT, LEVEL IV Diagnosis: Other muscle spasm[ICD10: M62.838] Diagnosis: Generalized anxiety disorder[ICD10: F41.1] Diagnosis: Major depressive disorder, recurrent, moderate[ICD10: F33.1] Diagnosis: Other insomnia[ICD10: G47.09] Petra Trejo MD, [facility] CPT-4 : 81039 05/19/2016 ([id number]) 66506 EST. PATIENT, LEVEL III Diagnosis: Generalized anxiety disorder[ICD10: F41.1] Diagnosis: Major depressive disorder, recurrent, moderate[ICD10: F33.1] Heidy Trejo MD, [facility] CPT-4: 59666 03/16/2016 ([id number]) 78020 EST. PATIENT, LEVEL III Diagnosis: Streptococcal pharyngitis[ICD10: J02.0] Claudette Trejo MD, [facility] CPT-4: 24526 02/28/2016 ([id number]) 81446 EST. PATIENT, LEVEL III Diagnosis: Generalized anxiety disorder[ICD10: F41.1] Diagnosis: Other obesity due to excess calories[ICD10: E66.09] Heidy Trejo MD, [facility] CPT-4: 65530 01/13/2016 ([id number]) 71679 EST. PATIENT, LEVEL III Diagnosis: Generalized anxiety disorder[ICD10: F41.1] Diagnosis: Major depressive disorder, recurrent, unspecified[ICD10: F33.9] Heidy Trejo MD, [facility] CPT-4: 02494 09/27/2015 99283 EST. PATIENT, LEVEL IV Diagnosis: Chronic pain syndrome[ICD10: G89.4] Diagnosis: Other obesity due to excess calories[ICD10: E66.09] Diagnosis: Essential (primary) hypertension[ICD10: I10] Diagnosis: Generalized anxiety disorder[ICD10: F41.1] Diagnosis: Excessive and frequent menstruation with regular cycle[ICD10: N92.0] Diagnosis: Pain in right knee[ICD10: M25.561] Petra Trejo MD, [facility] CPT-4: 78347 08/30/2015 71246 EST. PATIENT, LEVEL IV Diagnosis: Palpitations[ICD10: R00.2] Diagnosis: Other obesity due to excess calories[ICD10: E66.09] Petra Trejo MD, [facility] CPT-4: 01163 08/16/2015 ([id number]) 23196 EST. PATIENT, LEVEL IV Diagnosis: Pain in right knee[ICD10: M25.561] Diagnosis: Primary generalized (osteo)arthritis[ICD10: M15.0] Diagnosis: Acute maxillary sinusitis, unspecified[ICD10: J01.00] Heidy Trejo MD, [facility] CPT-4: 36703 07/15/2015 ([id number]) 27810 EST. PATIENT, LEVEL IV Diagnosis: Primary generalized (osteo)arthritis[ICD10: M15.0] Diagnosis: Restless legs syndrome[ICD10: G25.81] Diagnosis: Chronic pain syndrome[ICD10: G89.4] Heidy Trejo MD, [facility] CPT-4: 51598 06/16/2015 ([id number]) 02236 EST. PATIENT, LEVEL III Diagnosis: Primary generalized (osteo)arthritis[ICD10: M15.0] Diagnosis: Varicose veins of bilateral lower extremities with pain[ICD10: I83.813] Claudette Trejo MD, [facility] CPT-4: 66999 ([id number]) OFFICE VISIT, NEW - LEVEL 3 Diagnosis: Osteoarthritis[ICD9: 715.90] Diagnosis: ABNORMAL WEIGHT GAIN[ICD9: 783.1] Diagnosis: Superficial thrombophlebitis[ICD9: 451.9] Carey Trejo MD, [facility] CPT-4: 18104 12/02/2014 Plan of Care Planned Activity Notes Codes Status Date Visit Plan: Chronic Depression and anxiety - the pt has symptoms of chronic anxiety and depression that have been fairly well controlled since the last office visit. The pt has expected periods of exacerbation with abatement of the symptoms with change in situational exposure. No change in current medications. 07/04/2018 App[facility]ment: [phone] [facility] [place] (30 min) Complex 07/04/2018 Patient Education: [...] this patient. 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 04/17/2018 Appointment: Petra Rivas WPtel: [phone] [facility] (15 min) Moderate 04/17/2018 Patient Education: [...] edema. 03/14/2018 Appointment: Petra Rivas WPtel: [phone] [facility] (15 min) Moderate 03/14/2018 Patient Education: Patient [...] ortho 02/27/2018 Appointment: Petra Rivas WPtel: [phone] [facility] (30 min) Complex 02/27/2018 Patient Education: Patient [...] improve. 12/04/2017 Appointment: [facility]ivas WPtel[facility] [phone] [facility] [place] (15 min) Moderate 12/04/2017 Patient Education: [...] glucose control. 11/20/2017 Appointment: Petra Rivas WPtel: [facility]note 3][facility] (15 min) Moderate 11/20/2017 Patient Education: Patient [...] not improve. 09/10/2017 Appointment: Petra Rivas WPtel: [address] [place], [place] [id number] (15 min) Moderate 09/10/2017 Patient Education: [...] not improve. 08/14/2017 Appointment: Petra Rivas WPtel: [address] [place], [place] [address] [place] (30 min) Complex 08/14/2017 Patient Education: Patient Medication Summary Completed 08/14/2017 Appointment: Petra Rivas WPtel: [address] [place], [place] [id number] [place] (15 min) Moderate 08/01/2017 Visit Plan: Knee pain - pt is to use RICE - Rest, Ice, Compression, Elevation - pt is to use crutches as directed - The pt is to use prn antiinflammatories to manage acute pain. The patient is to call the office if the pain is worsening or does not improve. 07/31/2017 Appointment: Petra Rivas WPtel: [facility][note 3]5 [facility] (30 min) Complex 07/31/2017 Patient Education: Patient Medication Summary Completed 07/31/2017 Care Plan[facility] Pending 07/31/2017 Visit Plan: URI - Pt [...] allergy spray. 06/27/2017 Appointment: Petra Rivas WPtel: [facility][note 3]5 [facility] (15 min) Moderate 06/27/2017 Patient Education: Patient Medication Summary Completed 06/27/2017 Referral: Jignesh Quinn [facility] Patient informed. Referral info faxed. [...] Quinn 05/29/2017 Appointment: Petra Rivas WPtel: [facility][note 3]7 [facility] [place] (15 min) Moderate 05/29/2017 Patient Education: Patient Medication Summary Completed 05/29/2017 Care Plan: Referral Order SNOMED-CT : [id number] Pending 05/29/2017 Appointment: [facility]ivas [phone] [facility] [place] (15 min) Moderate 05/28/2017 Visit Plan: [...] acute concerns. 05/21/2017 Appointment: Petra Rivas WPtel: [facility][note 3]5 [facility] (15 min) Moderate 05/21/2017 Patient Education: Patient Medication Summary Completed 05/21/2017 Visit Plan: Right heel pain - will send RX, pt is to do stretches as directed - The pt is to use prn antiinflammatories to manage acute pain. The patient is to call the office if the pain is worsening or does not improve. 04/20/2017 Appointment: Petra Rivas WPtel: [facility][note 3]5 [facility] [place] (30 min) Complex 04/20/2017 Patient Education: Patient Medication Summary Completed 04/20/2017 Appointment: Petra Rivas WPtel: [address] [place], [place] [phone] [place] (30 min) Complex 03/29/2017 Patient Education: Patient Medication Summary Completed 03/16/2017 Referral: Maycol Quijano Referral Initiated 02/08/2017 Care Plan: Referral Order SNOMED-CT : [id number] Pending 01/28/2017 Visit Plan: Insomnia - Pt [...] or concerns. 01/26/2017 Appointment: Petra Rivas WPtel: [address] [place], [place] [phone] (30 min) Complex 01/26/2017 Patient Education: Patient [...] worsen. 01/11/2017 Appointment: Petra Rivas WPtel: [facility][note 3]5 [facility] (15 min) Moderate 01/11/2017 Patient Education: [...] on use. 11/30/2016 Appointment: Claudette Savage WPtel: [address] [place], [place] [phone] (15 min) Moderate 11/30/2016 Patient Education: Patient Medication Summary Completed 11/30/2016 Patient Education: Obesity Completed 11/30/2016 Care Plan: BMI Above normal followup SELF-MGMT EDUC & TRAIN 1 PT Pending 2016 Visit Plan: Tcnzhjj-fxkibgotuj-eyvflqmf with increase in cymbalta-no changes Insomnia-RX for belsomra provided and instructed on use Obesity-patient down 15#-no changes-continue diet/exercise-follow up in 2 months 09/28/2016 Appointment: Claudette Savage WPtel: [address] [place] [address] (15 min) Moderate 09/28/2016 Patient Education: Patient Medication Summary Completed 09/28/2016 Patient Education: Obesity Completed 09/28/2016 Care Plan: BMI Above normal followup SELF-MGMT EDUC & TRAIN 1 PT Pending 2016 Visit Plan: Advqulf-yrqlhzndal-sadghwqb-increase cymbalta to 60mg daily. Increase xanax as [...] for insomnia/anxiety 08/24/2016 Appointment: Claudette Savage WPtel: [address] [place], [place] [phone] [place] (15 min) Moderate 08/24/2016 Patient Education: [...] improving. 07/13/2016 Appointment: Heidy Trejo WPtel: [phone] [facility] (15 min) Moderate 07/13/2016 Patient Education: Patient [...] time insomnia. 05/19/2016 Appointment: Petra Rivas WPtel: [facility][note 3]2 [facility] (30 min) Complex 05/19/2016 Patient Education: Patient [...] this patient. 03/16/2016 Appointment: Heidy Trejo WPtel: [phone] [facility] (15 min) Moderate 03/16/2016 Patient Education: Patient [...] the swab. 02/28/2016 Appointment: Claudette Savage WPtel: [phone] [phone] (10 min) Simple 02/28/2016 Patient Education: Patient [...] stop lexapro 01/13/2016 App[facility]ment: [phone] [place] (15 min) Moderate 01/13/2016 [...] 09/27/2015 Care Plan: Referral Order SNOMED-CT : [id number] Pending 08/31/2015 Visit Plan: Anxiety - the [...] show improvement. 07/15/2015 Appointment: Heidy Trejo WPtel: [phone] [facility] (15 min) Moderate 07/15/2015 Patient Education: Patient [...] vein clinic 04/02/2015 Appointment: Claud[facility]el[phone] [place] (15 min) Moderate 04/02/2015 Patient Education: [...] Completed 12/02/2014 Referral: Belle Hoffman WPtel: [phone] [phone] they will call and set the appt with her Initiated Referral: Maycol Quijano Referral Initiated Referral: Belle Hoffman WPtel: [phone] [facility] Referral Initiated Referral: Jignesh Quinn [facility] [place] Referral Initiated Instructions Comment . Left knee pain - ongoing - will order MRI and refer as indicated - pt is to use RICE - Rest, Ice, Compression, Elevation - The pt is to use prn antiinflammatories to manage acute pain. The patient is to call the office if the pain is worsening or does not improve. . Insomnia - Pt has been advised to increase the light in the house during the day, and start dimming the lights during the evening hours. Pt has been advised to cut out caffeine after 5pm. Daytime napping worsens night time insomnia. Changing mole - will refer for removal - pt is to notify clinic with any changes , questions, or concerns. . Arthritis- occasionally uncontrolled symptoms- recommend [...] Call if symptoms do not show improvement. contrave website contrave 1 pill nightly x [...] medication such as mirapex or requip. . Anxiety and Depression - uncontrolled - [...] Daytime napping worsens night time insomnia. . Right ankle/heel pain - the patient was instructed in appropriate posture, need for weight loss to alleviate abdominal obesity that is worsening the patient's pain. The pt is to use prn antiinflammatories to manage acute pain. The patient is to call the office if the pain is worsening or does not improve. Kenalog . Strep throat - pt give [...] situational exposure. No change in current medications. Increase Cymbalta from 30 mg/day to 60 mg/day Start Victoza 0.6 mg/day for one week, then increase to 1.2 mg/day for one week , then increase to 1.8 mg/day Patient states understanding of administration instructions. Refill Xanax 1 mg at night for anxiety . Cljczfu-ezaskeighr-pevcxgws-increase cymbalta to 60mg daily. Increase xanax as [...] Insomnia-increase xanax as directed for insomnia/anxiety . Chronic Depression and anxiety - the [...] improved, or if symptoms acutely worsen. . Palpitations - likely anxiety - will [...] pt is to call for acute concerns. Breathing treatments 3 times a day x [...] not improved, or if symptoms acutely worsen. cymbalta 60mg x 3 days, then cymbalta [...] appropriately prescribed for this patient. BELSOMRA . Hrbknty-uhqnxuolur-ygtaxqok with increase in cymbalta-no changes Insomnia-RX for [...] Knee pain - defer to ortho . Hospital follow up - This was [...] greater blood glucose control. . 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 . Right heel pain - will send RX, pt is to do stretches as directed - The pt is to use prn antiinflammatories to manage acute pain. The patient is to call the office if the pain is worsening or does not improve. . Left knee pain - ongoing - [...] allow for greater blood glucose control. . URI - Pt advised to increase [...]
[2018-07-24] MEDS ORDERED: ESCI20TA45 (23:03)
[2018-07-24] MEDS ORDERED: MELO7.5T46 (23:03)
[2018-07-24] MEDS ORDERED: MIRT15TA6 (23:03)
[2018-07-24] MEDS ORDERED: PHEN37.53 (23:03)
[2018-07-24] MEDS ORDERED: HYDR25TA4 (23:03)
[2018-07-24] MEDS ORDERED: POTA10TA10 (23:03)
[2018-07-24] MEDS ORDERED: PANT40TA3 (23:03)
[2018-07-24] MEDS ORDERED: DULO30CA48 (23:03)
[2018-07-24] MEDS ORDERED: FURO20TA4 (23:03)
--- OUTSIDE RECORDS SUMMARY | 2018-07-24 23:03 | XMS REPORT | CCD ---
Author Author [place] Organization [facility] Address [address] [place] [address] Phone Care Team Providers Care Occupational Health Physiotherapist Name Role Phone PP Unavailable CCM Unavailable Summary Purpose Interface Exchange Insurance Providers Payer name Policy type / Coverage type Covered libertarian ID Effective Begin Date Effective End Date [facility] Commercial Insurance [id number] Unknown Family history Brother Diagnosis Age At [...] Description Effective Dates Tobacco history SNOMED CT: 7900659 Quit less than 5 years ago 04/02/2015 Alcohol history Unknown occasionally drinks alcohol 04/02/2015 Marital status Unknown Manuel Vitale 12/02/2014 Number of children Unknown 3 12/02/2014 Allergies, Adverse Reactions, Alerts Substance Reaction Codes Entered Date Inactivated Date Status * NO KNOWN FOOD ALLERGIES Unknown 12/02/2014 No Inactive Date Active Penicillin Unknown 12/02/2014 No Inactive Date Active tramadol RxNorm: 41531 12/02/2014 No Inactive Date Active Past Medical [...] Start Date Stop Date Status Fill Instructions Cymbalta 30 mg capsule,delayed release RxNorm: 016574 1 CAPSULE(S) PO DAILY TO BE TAKEN WITH 60MG TO=90MG 07/01/20182018 Active hydrochlorothiazide 25 mg tablet RxNorm: 337578 1 TABLET(S) PO DAILY 06/27/2018 09/24/2018 Active Remeron 15 mg tablet RxNorm: 905332 1/2 Tablet(s) PO QHS 201807/19/2018 Active potassium chloride ER 10 mEq tablet,extended release RxNorm: 860724 1 Tablet(s) PO daily 06/19/2018 No Stop Date Active Lexapro 20 mg tablet RxNorm: 625866 1 Tablet(s) PO daily 201807/18/2018 Active Lasix 20 mg tablet RxNorm: 277456 1 Tablet(s) PO daily 201806/21/2018 Inactive gabapentin 300 mg capsule RxNorm: 633276 1 CAPSULE(S) PO TID 08/12/2018 Active Ambien 10 mg tablet RxNorm: 628567 1 Tablet(s) PO QHS as needed insomnia 06/10/2018 09/07/2018 Active Cymbalta 30 mg capsule,delayed release RxNorm: 315328 1 Capsule(s) PO daily 06/03/2018 06/02/2018 Inactive Cymbalta 30 mg capsule,delayed release RxNorm: 160344 1 Capsule(s) PO daily to be taken with 60mg to=90mg 06/03/20182018 Inactive Protonix 40 mg tablet,delayed release RxNorm: 079529 1 TABLET(S) PO DAILY 05/20/2018 09/16/2018 Active gabapentin 300 mg capsule RxNorm: 472168 1 CAPSULE(S) PO TID 06/13/2018 Inactive Protonix 40 mg tablet,delayed release RxNorm: 382038 1 Tablet(s) PO daily 04/24/2018 05/19/2018 Inactive Zorvolex 35 mg capsule RxNorm: 9511937 TAKE 1 CAPSULE BY MOUTH THREE (3) TIMES DAILY 04/22/2018 08/19/2018 Active hydrochlorothiazide 25 mg tablet RxNorm: 924311 1 TABLET(S) PO DAILY 04/08/2018 06/26/2018 Inactive Zorvolex 35 mg capsule RxNorm: 5383100 TAKE 1 CAPSULE BY MOUTH THREE (3) TIMES DAILY 03/27/2018 04/21/2018 Inactive gabapentin 300 mg capsule RxNorm: 601515 1 CAPSULE(S) PO TID 04/14/2018 Inactive hydrochlorothiazide 25 mg tablet RxNorm: 008872 1 Tablet(s) PO daily 03/14/2018 04/07/2018 Inactive Cymbalta 60 mg capsule,delayed release RxNorm: 197475 1 Capsule(s) PO daily TAKE 1 CAPSULE BY MOUTH DAILY 02/27/20182019 Active Victoza 2-Marek 0.6 mg/0.1 mL (18 mg/3 mL) subcutaneous pen injector RxNorm: 312210 Milligram(s) INJECT 1.8 MG SUB-Q ONCE DAILY 02/27/2018 08/20/2019 Active qty sufficient Xanax 1 mg tablet RxNorm: 904154 1-2 Tablet(s) PO QHS as needed insomnia 02/27/2018 05/27/2018 Inactive atorvastatin 20 mg tablet RxNorm: 074097 1 Tablet(s) PO daily 02/27/2018 05/22/2019 Active Cymbalta 60 mg capsule,delayed release RxNorm: 009026 TAKE 1 CAPSULE BY MOUTH DAILY 02/27/2018 02/26/2018 Inactive gabapentin 300 mg capsule RxNorm: 580620 1 Capsule(s) PO TID 03/24/2018 Inactive meloxicam 7.5 mg tablet RxNorm: 617950 1 Tablet(s) PO daily 1 TABLET(S) PO DAILY 02/27/2018 04/14/2018 Inactive Ambien 10 mg tablet RxNorm: 624600 1 Tablet(s) PO QHS as needed insomnia 02/27/2018 05/25/2018 Inactive atorvastatin 20 mg tablet RxNorm: 013607 1 Tablet(s) PO daily 02/05/2018 02/26/2018 Inactive atorvastatin 20 mg tablet RxNorm: 541443 1 Tablet(s) PO daily 02/05/2018 02/04/2018 Inactive meloxicam 7.5 mg tablet RxNorm: 785251 1 TABLET(S) PO DAILY 02/26/2018 Inactive oxycodone 15 mg tablet RxNorm: 4068001 1 Tablet(s) PO QID as needed 01/07/2018 02/19/2018 Inactive lactulose 20 gram/30 mL oral solution RxNorm: 498757 15-30 Milliliter(s) PO BID as needed 12/31/2017 02/20/2018 Inactive meloxicam 7.5 mg tablet RxNorm: 056631 1 TABLET(S) PO DAILY 06/201701/31/2018 Inactive Zorvolex 35 mg capsule RxNorm: 9812712 1 Capsule(s) PO TID 06/201702/20/2018 Inactive Ambien 10 mg tablet RxNorm: 481201 1 Tablet(s) PO QHS as needed insomnia 12/04/2017 02/26/2018 Inactive oxycodone 15 mg tablet RxNorm: 5980913 1 Tablet(s) PO QID as needed 12/04/2017 01/06/2018 Inactive prednisone 20 mg tablet RxNorm: 916961 2 Tablet(s) PO daily 12/08/2017 Inactive Victoza 2-Marek 0.6 mg/0.1 mL (18 mg/3 mL) subcutaneous pen injector RxNorm: 329836 Milligram(s) INJECT 1.8 MG SUB-Q ONCE DAILY 11/20/2017 02/26/2018 Inactive meloxicam 7.5 mg tablet RxNorm: 762775 1 Tablet(s) PO daily 02/201812/12/2017 Inactive phentermine 37.5 mg tablet RxNorm: 881177 1 Tablet(s) PO daily 11/20/2017 12/19/2017 Inactive Ambien 10 mg tablet RxNorm: 536974 1 Tablet(s) PO QHS as needed insomnia 11/20/2017 12/18/2017 Inactive Xanax 1 mg tablet RxNorm: 069524 1.5 Tablet(s) PO QHS as needed insomnia 11/20/2017 02/26/2018 Inactive hydrocodone 7.5 mg-acetaminophen 325 mg tablet RxNorm: 135422 1 Tablet(s) PO TID as needed 11/16/2017 01/06/2018 Inactive Cymbalta 60 mg capsule,delayed release RxNorm: 032435 TAKE 1 CAPSULE BY MOUTH DAILY 11/02/2017 02/26/2018 Inactive Xanax 1 mg tablet RxNorm: 133202 1 Tablet(s) PO BID PRN as needed anxiety 10/04/2017 11/19/2017 Inactive Victoza 2-Marek 0.6 mg/0.1 mL (18 mg/3 mL) subcutaneous pen injector RxNorm: 761191 INJECT 1.8 MG SUB-Q ONCE DAILY 10/04/2017 11/19/2017 Inactive hydrocodone 7.5 mg-acetaminophen 325 mg tablet RxNorm: 340980 1 Tablet(s) PO TID as needed 09/17/2017 11/15/2017 Inactive hydrocodone 7.5 mg-acetaminophen 325 mg tablet RxNorm: 341723 1 Tablet(s) PO TID as needed 09/10/2017 09/16/2017 Inactive prednisone 10 mg tablet RxNorm: 765136 Tablet(s) PO 09/10/2017 11/13/2017 Inactive 6, 5,4,3,2,1 Zorvolex 35 mg capsule RxNorm: 1773851 1 Capsule(s) PO TID 11/13/2017 Inactive Ambien 10 mg tablet RxNorm: 527361 1 Tablet(s) PO QHS as needed insomnia 08/29/2017 11/19/2017 Inactive Zorvolex 35 mg capsule RxNorm: 1500894 1 Capsule(s) PO TID 09/06/2017 Inactive Zorvolex 35 mg capsule RxNorm: 7365698 1 Capsule(s) PO TID 06/201708/27/2017 Inactive Zorvolex 35 mg capsule RxNorm: 8531296 1 Capsule(s) PO TID 06/201708/12/2017 Inactive prednisone 20 mg tablet RxNorm: 956861 2 Tablet(s) PO daily 08/04/2017 Inactive hydrocodone 7.5 mg-acetaminophen 325 mg tablet RxNorm: 582725 1 Tablet(s) PO TID as needed 07/31/2017 09/09/2017 Inactive Zorvolex 35 mg capsule RxNorm: 2191790 1 Capsule(s) PO TID as needed 07/31/2017 11/13/2017 Inactive ceftriaxone 500 mg solution for injection RxNorm: 1633589 1 Milliliter(s) Inj 06/27/2017 06/27/2017 Inactive Keflex 500 mg capsule RxNorm: 751573 1 Capsule(s) PO TID 201707/03/2017 Inactive Ambien 10 mg tablet RxNorm: 078757 1 Tablet(s) PO daily 201708/25/2017 Inactive tramadol 50 mg tablet RxNorm: 311177 1 Tablet(s) PO TID as needed 05/29/2017 07/27/2017 Inactive Xanax 1 mg tablet RxNorm: 521352 1 Tablet(s) PO BID PRN as needed anxiety 05/21/2017 10/03/2017 Inactive alprazolam 1 mg tablet RxNorm: 702376 1 Tablet(s) PO BID as needed 05/21/2017 06/19/2017 Inactive Celebrex 200 mg capsule RxNorm: 800419 1 CAPSULE(S) PO BID 11/05/2017 Inactive prednisone 20 mg tablet RxNorm: 893509 2 Tablet(s) PO daily 12/201604/24/2017 Inactive Ambien 10 mg tablet RxNorm: 758333 Tablet(s) PO 04/20/2017 05/28/2017 Inactive hydrocodone 5 mg-acetaminophen 325 mg tablet RxNorm: 434290 1 Tablet(s) PO QID as needed 04/20/2017 08/01/2017 Inactive Cymbalta 60 mg capsule,delayed release RxNorm: 199164 1 Capsule(s) PO daily 04/20/2017 02/26/2018 Inactive Victoza 2-Marek 0.6 mg/0.1 mL (18 mg/3 mL) subcutaneous pen injector RxNorm: 251921 INJECT 1.8 MG SUB-Q ONCE DAILY 03/26/2017 09/21/2017 Inactive diazepam 2 mg tablet RxNorm: 254223 1 Tablet(s) PO QHS as needed insomnia 01/28/2017 05/07/2017 Inactive Victoza 2-Marek 0.6 mg/0.1 mL (18 mg/3 mL) subcutaneous pen injector RxNorm: 100989 1.8 Milligram(s) SQ daily 01/26/201703/25 Inactive dispense quantity sufficient Tussionex Pennkinetic ER 10 mg-8 mg/5 mL suspension, extended release RxNorm: 6144524 5 Milliliter(s) PO BID 01/11/2017 01/15/2017 Inactive Xanax 1 mg tablet RxNorm: 494311 1 Tablet(s) PO BID PRN as needed anxiety 01/11/2017 05/20/2017 Inactive Zithromax Z-Marek 250 mg tablet RxNorm: 949298 1 Tablet(s) PO UD 01/11/2017 01/15/2017 Inactive zpack albuterol sulfate 2.5 mg/3 mL (0.083 %) solution for nebulization RxNorm: 185676 3 Milliliter(s) INH UD 01/11/201707/2017 Inactive prednisone 20 mg tablet RxNorm: 889678 2 Tablet(s) PO daily 01/15/2017 Inactive Kenalog 40 mg/mL suspension for injection RxNorm: 0784580 1.5 Milliliter(s) Inj 01/11/2017 01/11/2017 Inactive Celebrex 200 mg capsule RxNorm: 795402 1 Capsule(s) PO BID 02/27/2017 Inactive Ambien 5 mg tablet RxNorm: 299352 1 Tablet(s) PO HS PRN 11/3008/07/2017 Inactive trazodone 50 mg tablet RxNorm: 913716 1/2 to 1 Tablet(s) PO QHS 10/13/2016 10/12/2016 Inactive trazodone 50 mg tablet RxNorm: 945486 1/2 to 1 Tablet(s) PO QHS 10/13/2016 11/29/2016 Inactive Belsomra 10 mg tablet RxNorm: 0854946 1 Tablet(s) PO QHS 201611/29/2016 Inactive may increase to 20mg if 10mg not effective Cymbalta 60 mg capsule,delayed release RxNorm: 435124 1 Capsule(s) PO daily 08/24/2016 03/21/2017 Inactive Xanax 1 mg tablet RxNorm: 169860 1 Tablet(s) PO BID PRN as needed anxiety 08/24/2016 01/10/2017 Inactive Victoza 2-Marek 0.6 mg/0.1 mL (18 mg/3 mL) subcutaneous pen injector RxNorm: 851882 Milligram(s) SQ 08/24/2016 08/23/2016 Inactive Victoza 2-Marek 0.6 mg/0.1 mL (18 mg/3 mL) subcutaneous pen injector RxNorm: 782792 1.8 Milligram(s) SQ 08/24/2016 01/25/2017 Inactive Vitamin D2 50,000 unit capsule RxNorm: 401704 1 Capsule(s) PO QW 07/13/2016 10/10/2016 Inactive Cymbalta 30 mg capsule,delayed release RxNorm: 417479 1 Capsule(s) PO daily 07/13/2016 08/23/2016 Inactive Belviq XR 20 mg tablet,extended release RxNorm: 4989073 1 Tablet(s) PO daily 05/30/2016 05/29/2016 Inactive prednisone 20 mg tablet RxNorm: 096124 2 Tablet(s) PO daily 06/03/2016 Inactive prednisone 20 mg tablet RxNorm: 683649 2 Tablet(s) PO daily 05/29/2016 Inactive Belviq XR 20 mg tablet,extended release RxNorm: 3814463 1 Tablet(s) PO daily 05/30/2016 06/28/2016 Inactive cyclobenzaprine 5 mg tablet RxNorm: 961728 1-2 Tablet(s) PO TID as needed 05/19/2016 05/23/2016 Inactive metoprolol succinate ER 25 mg tablet,extended release 24 hr RxNorm: 365318 1 Tablet(s) PO QPM 04/10/2016 04/13/2016 Inactive metoprolol succinate ER 25 mg tablet,extended release 24 hr RxNorm: 292925 1 Tablet(s) PO QPM 04/10/2016 04/09/2016 Inactive escitalopram 10 mg tablet RxNorm: 246894 1 Tablet(s) PO daily 03/16/2016 07/12/2016 Inactive estradiol 1 mg tablet RxNorm: 489121 1 Tablet(s) PO every other day 03/16/2016 05/15/2016 Inactive Kenalog 40 mg/mL suspension for injection RxNorm: 5672530 Milliliter(s) Inj 02/28/2016 02/28/2016 Inactive Zithromax Z-Marek 250 mg tablet RxNorm: 775328 1 Tablet(s) PO UD 02/28/2016 03/03/2016 Inactive zpack Lexapro 10 mg tablet RxNorm: 902884 1 Tablet(s) PO daily 201502/27/2016 Inactive Lexapro 10 mg tablet RxNorm: 082044 1 Tablet(s) PO daily 201509/26/2015 Inactive Vimovo 500 mg-20 mg tablet,immediate and delay release RxNorm: 571239 1 Tablet(s) PO BID as needed for pain 08/30/201509/25 Inactive azithromycin 250 mg tablet RxNorm: 405612 1 Tablet(s) PO UD 2 pills on day #1, then one pill daily x 4 days 07/15/2015 Inactive hydrocodone 10 mg-acetaminophen 325 mg tablet RxNorm: 908553 1 Tablet(s) PO QID 06/16/2015 01/12/2016 Inactive pramipexole 0.5 mg tablet RxNorm: 570138 1 Tablet(s) PO QPM 07/201507/14/2015 Inactive Celebrex 200 mg capsule RxNorm: 457111 1 Capsule(s) PO daily 05/02/2015 Inactive Celebrex 200 mg capsule RxNorm: 029395 1 Capsule(s) PO daily 01/12/2016 Inactive hydrocodone 7.5 mg-acetaminophen 325 mg tablet RxNorm: 555165 1 Tablet(s) PO Q6 PRN 05/03/2015 06/15/2015 Inactive Mobic 15 mg tablet RxNorm: 687218 1 Tablet(s) PO daily 201405/02/2015 Inactive hydrocodone 7.5 mg-acetaminophen 325 mg tablet RxNorm: 893886 1 Tablet(s) PO Q6 PRN 04/02/2015 05/02/2015 Inactive hydrocodone 5 mg-acetaminophen 325 mg tablet RxNorm: 145013 1 Tablet(s) PO Q6 as needed 12/11/2014 04/01/2015 Inactive Pennsaid 1.5 % topical drops RxNorm: 697490 40 Drop(s) TOP QID as needed 12/07/2014 02/04/2015 Inactive Apply 40 drops to each knee joint 4 times per day as needed for osteoarthritis pain estradiol 1 mg tablet RxNorm: 338028 1 Tablet(s) PO QHS No Start Date 03/15/2016 Inactive Xanax 0.5 mg tablet RxNorm: 052983 1 Tablet(s) PO Q6 as needed anxiety No Start Date 08/23/2016 Inactive Tylenol Extra Strength 500 mg tablet RxNorm: 305074 3 Tablet(s) PO BID after breakfast and after lunch No Start Date Inactive lactulose 20 gram/30 mL oral solution RxNorm: 231590 15-30 Milliliter(s) PO BID as needed No Start Date 12/30/2017 Inactive hydrocodone 5 mg-acetaminophen 325 mg tablet RxNorm: 122875 1 Tablet(s) PO Q6 as needed No Start Date 12/10/2014 Inactive Phenergan-Codeine syrup RxNorm: 5-10 Milliliter(s) PO QID as needed No Start Date 11/13/2017 Inactive ibuprofen 200 mg capsule RxNorm: 442950 4 Capsule(s) PO QID as needed No Start Date 04/01/2015 Inactive Medication Administered Medication Codes Instructions Start Date Status ceftriaxone 500 mg solution for injection RxNorm: 6556920 1Milliliter 06/27/2017 No longer Active Kenalog 40 mg/mL suspension for injection RxNorm: 6922742 1.5Milliliter 01/11/2017 No longer Active Kenalog 40 mg/mL suspension for injection RxNorm: 6417324 Milliliter 02/28/2016 No longer Active Immunizations Vaccine Codes Date Status Influenza CVX: 141 03/16/2017 completed Pneumococcal (Adult) CVX: 33 03/16/2017 completed Assessments Condition Codes Effective Dates Other insomnia ICD-10: G47.09 ICD-9: 327.09 06/19/2018 Major depressive disorder, single episode, moderate ICD-10: F32.1 ICD-9: 296.22 06/19/2018 Generalized anxiety disorder ICD-10: F41.1 ICD-9: 300.00 06/19/2018 Other chest pain ICD-10: R07.89 ICD-9: [...] Visit Reason For Visit Effective Dates Notes insomnia 06/19/2018 chest pain/pressure 04/24/2018 medication follow [...] Code Item Item Code Result Date %Hba1C Tip725 % HbA1c 89782-1 6.7 % 11/20/2017 %Hba1C Sgu290 Gluc Ave 146 mg/dL 11/20/2017 Free T4 Kku476 FREE T4 0.76 ng/dL 05/21/2017 Tsh Ord6 hTSH II 1.27 uIU/mL 05/21/2017 Comp Metabolic Eic596 NA 140 mEq/L 05/21/2017 Comp Metabolic Yrl914 K 3.9 mEq/L 05/21/2017 Comp Metabolic Zbo614 CL 101 mEq/L 05/21/2017 Comp Metabolic Myb999 CO2 28.0 mEq/L 05/21/2017 Comp Metabolic Lwt540 ANION GAP 15 05/21/2017 Comp Metabolic Nbp993 GLUCOSE 155 mg/dL 05/21/2017 Comp Metabolic Sen015 Creat 0.7 mg/dL 05/21/2017 Comp Metabolic Kvv710 eGFR 87 ml/min/1.73m2 05/21/2017 Comp Metabolic Avz911 BUN 16 mg/dL 05/21/2017 Comp Metabolic Prw893 B/C Ratio 21.6 Ratio 05/21/2017 Comp Metabolic Tqw087 CALCIUM 9.4 mg/dL 05/21/2017 Comp Metabolic Qhi806 ALK PHOS 132 U/L 05/21/2017 Comp Metabolic Raz397 AST(SGOT) 16 U/L 05/21/2017 Comp Metabolic Ygc480 ALT(SGPT) 20 U/L 05/21/2017 Comp Metabolic Vak046 BILI T 0.4 mg/dL 05/21/2017 Comp Metabolic Wcx129 ALBUMIN 4.0 g/dL 05/21/2017 Comp Metabolic Lbs152 TPRO 6.7 g/dL 05/21/2017 Comp Metabolic Rtq216 GLOB 2.7 g/dL 05/21/2017 Comp Metabolic Vdb585 A/G Ratio 1.5 Ratio 05/21/2017 Comp Metabolic Cfd225 Osmo 284 mOsmo 05/21/2017 Cbc With Differential [...] 28.9 pg 05/21/2017 Cbc With Differential Ord2 [place]% 5.5 % 05/21/2017 Cbc With Differential Ord2 [...] 2.65 K/ul 05/21/2017 Cbc With Differential Ord2 [place] ABS# 0.8 K/ul 05/21/2017 Cbc With Differential Ord2 Eos ABS# 0.1 K/ul 05/21/2017 Cbc With Differential Ord2 Baso ABS# 0.0 K/ul 05/21/2017 Estrogens Total 924372 ESTROGENS, TOTAL 54 pg/mL 05/24/2016 Magnesium Ord90 Mag 1.8 mg/dL 05/19/2016 Tsh Ord6 hTSH II 1.56 uIU/mL 05/19/2016 Progesterone Prog 0.03 ng/mL 05/19/2016 Comp Metabolic Esp718 NA 136 mEq/L 05/19/2016 Comp Metabolic Wur420 K 4.3 mEq/L 05/19/2016 Comp Metabolic Fjq277 CL 100 mEq/L 05/19/2016 Comp Metabolic Lui797 CO2 28.0 mEq/L 05/19/2016 Comp Metabolic Kqc073 ANION GAP 12 05/19/2016 Comp Metabolic Euv353 GLUCOSE 138 mg/dL 05/19/2016 Comp Metabolic Tby937 Creat 0.7 mg/dL 05/19/2016 Comp Metabolic Svj774 eGFR 89 ml/min/1.73m2 05/19/2016 Comp Metabolic Ccz836 BUN 15 mg/dL 05/19/2016 Comp Metabolic Udn645 B/C Ratio 20.5 Ratio 05/19/2016 Comp Metabolic Noo812 CALCIUM 9.7 mg/dL 05/19/2016 Comp Metabolic Gbw292 ALK PHOS 106 U/L 05/19/2016 Comp Metabolic Gsk298 AST(SGOT) 21 U/L 05/19/2016 Comp Metabolic Unw981 ALT(SGPT) 24 U/L 05/19/2016 Comp Metabolic Qxi182 BILI T 0.4 mg/dL 05/19/2016 Comp Metabolic Yav482 ALBUMIN 4.1 g/dL 05/19/2016 Comp Metabolic Kar193 TPRO 7.1 g/dL 05/19/2016 Comp Metabolic Avb204 GLOB 3.0 g/dL 05/19/2016 Comp Metabolic Wme748 A/G Ratio 1.4 Ratio 05/19/2016 Comp Metabolic Kxc049 Osmo 275 mOsmo 05/19/2016 Cbc With Differential [...] 86.5 fl 05/19/2016 Cbc With Differential Ord2 [place]% 6.5 % 05/19/2016 Cbc With Differential Ord2 [...] 2.33 K/ul 05/19/2016 Cbc With Differential Ord2 [place] ABS# 0.6 K/ul 05/19/2016 Cbc With Differential Ord2 Eos ABS# 0.1 K/ul 05/19/2016 Cbc With Differential Ord2 Baso ABS# 0.0 K/ul 05/19/2016 C RAP A SC 7611853 Strep A Negative 02/28/2016 Tsh Ord6 hTSH [...] 26.2 pg 08/16/2015 Cbc With Differential Ord2 [place]% 7.1 % 08/16/2015 Cbc With Differential Ord2 [...] 2.32 K/ul 08/16/2015 Cbc With Differential Ord2 [place] ABS# 0.6 K/ul 08/16/2015 Cbc With Differential Ord2 Eos ABS# 0.1 K/ul 08/16/2015 Cbc With Differential Ord2 Baso ABS# 0.0 K/ul 08/16/2015 Cbc With Differential Ord2 New Analyzer Notice Please note new ref ranges starting 05-26-2015 due to implemntation of new five part differential hematolgy analyzer. 08/16/2015 Comp Metabolic Avt139 NA 132 mEq/L 08/16/2015 Comp Metabolic Qpu044 K 3.6 mEq/L 08/16/2015 Comp Metabolic Ptb499 CL 99 mEq/L 08/16/2015 Comp Metabolic Dqv347 CO2 23.0 mEq/L 08/16/2015 Comp Metabolic Imo113 ANION GAP 14 08/16/2015 Comp Metabolic Tgi519 GLUCOSE 101 mg/dL 08/16/2015 Comp Metabolic Jjt697 Creat 0.7 mg/dL 08/16/2015 Comp Metabolic Jxw271 eGFR 100 ml/min/1.73m2 08/16/2015 Comp Metabolic Jud289 BUN 10 mg/dL 08/16/2015 Comp Metabolic Uka105 B/C Ratio 15.2 Ratio 08/16/2015 Comp Metabolic Zmz526 CALCIUM 9.3 mg/dL 08/16/2015 Comp Metabolic Azh195 ALK PHOS 100 U/L 08/16/2015 Comp Metabolic Ufi299 AST(SGOT) 14 U/L 08/16/2015 Comp Metabolic Mfc583 ALT(SGPT) 11 U/L 08/16/2015 Comp Metabolic Fzy301 BILI T 0.3 mg/dL 08/16/2015 Comp Metabolic Tpf258 ALBUMIN 3.9 g/dL 08/16/2015 Comp Metabolic Rtq707 TPRO 7.1 g/dL 08/16/2015 Comp Metabolic Pfk383 GLOB 3.2 g/dL 08/16/2015 Comp Metabolic Coh843 A/G Ratio 1.2 Ratio 08/16/2015 Comp Metabolic Vly903 Osmo 264 mOsmo 08/16/2015 Lipid Ord30 CHOL 209 mg/dL 12/03/2014 Lipid Ord30 HDL 42.0 mg/dl 12/03/2014 Lipid Ord30 TRIG 219 mg/dL 12/03/2014 Lipid Ord30 LDL 123 mg/dL 12/03/2014 Lipid Ord30 C/HDL 5.0 Ratio 12/03/2014 Comp Metabolic Mlv356 NA 132 mEq/L 12/03/2014 Comp Metabolic Ycp893 K 4.0 mEq/L 12/03/2014 Comp Metabolic Trd804 CL 101 mEq/L 12/03/2014 Comp Metabolic Mzt982 CO2 22.0 mEq/L 12/03/2014 Comp Metabolic Bpq459 ANION GAP 13 12/03/2014 Comp Metabolic Wto322 GLUCOSE 123 mg/dL 12/03/2014 Comp Metabolic Gje865 Creat 0.7 mg/dL 12/03/2014 Comp Metabolic Nle037 eGFR 97 ml/min/1.73m2 12/03/2014 Comp Metabolic Nth480 BUN 10 mg/dL 12/03/2014 Comp Metabolic Maf828 B/C Ratio 14.7 Ratio 12/03/2014 Comp Metabolic Lsb919 CALCIUM 9.2 mg/dL 12/03/2014 Comp Metabolic Otk853 ALK PHOS 88 U/L 12/03/2014 Comp Metabolic Krp692 AST(SGOT) 18 U/L 12/03/2014 Comp Metabolic Coo828 ALT(SGPT) 17 U/L 12/03/2014 Comp Metabolic Dmq510 BILI T 0.5 mg/dL 12/03/2014 Comp Metabolic Ehi193 ALBUMIN 3.9 g/dL 12/03/2014 Comp Metabolic Sti155 TPRO 6.8 g/dL 12/03/2014 Comp Metabolic Lab055 GLOB 2.9 g/dL 12/03/2014 Comp Metabolic Fsb452 A/G Ratio 1.3 Ratio 12/03/2014 Comp Metabolic Egj898 Osmo 265 mOsmo 12/03/2014 Tsh Ord6 hTSH II 1.13 uIU/mL 12/03/2014 D-Dimer D-DIMER 168 NG/ML 12/03/2014 D-Dimer [id number] COMMENT 12/03/2014 Cbc With Differential Ord2 WBC [...] 1994 Constitutional general appearance Overall: well developed 06/19/2018 None Full Exam - General 1994 Constitutional general appearance Overall: in no acute distress 06/19/2018 None Full Exam - General 1994 Constitutional general appearance Overall: well nourished 06/19/2018 None Full Exam - General 1994 Eyes conjunctiva /eyelids Overall: conjunctiva clear 06/19/2018 None Full Exam - General 1994 Eyes conjunctiva /eyelids Overall: cornea clear 06/19/2018 None Full Exam - General 1994 Eyes conjunctiva /eyelids Overall: eyelids normal 06/19/2018 None Full Exam - General 1995 Ears/Nose/Throat lips/teeth/gingiva Overall: benign lips 06/19/2018 None [...] nourished 05/21/2017 None Full Exam - General 1995 Constitutional general appearance Evidence of Distress: anxious 05/21/2017 None Full Exam - General 1994 Constitutional general appearance Overall: in no acute distress 05/21/2017 None Full Exam - General 1995 Eyes conjunctiva /eyelids Overall: conjunctiva clear 05/21/2017 None Full Exam - General 1995 Eyes conjunctiva /eyelids Overall: cornea clear 05/21/2017 [...] Procedure Codes Date THER/PROPH/DIAG INJ SC/IM CPT-4: 44552 06/27/2017 ROCEPHIN, PER 250 MG CPT-4: J0696 06/27/2017 IMMUNIZATION ADMIN CPT -4: 87103 03/16/2017 FLU VAC NO PRSV 4 FLETCHER 3 YRS+ CPT-4: 27177 03/16/2017 Pneumococcal Polysaccharide Vaccine, 23-Valent, Ad CPT-4: 12444 03/16/2017 IMMUNIZATION ADMIN EACH ADD CPT-4: 47513 03/16/2017 TRIAMCINOLONE ACET INJ NOS CPT-4: J3301 01/11/2017 TRIAMCINOLONE ACET INJ NOS CPT-4: J3301 02/28/2016 Vital Signs Date Vital 06/19/2018 Blood Pressure 1: 124/74 Code : 8480-6 BMI: 38.6 Code : 47813-4 Heart Rate 1 : 85 bpm Height: 5'6" SpO2: 95% Weight: 239 lbs 04/24/2018 Blood Pressure 1: 128/74 Code : 8480-6 BMI: 37.8 Code : 55236-4 Heart Rate 1 : 107 bpm Height: 5'6" SpO2: 98% Weight: 234 lbs 04/17/2018 Blood Pressure 1: 120/64 Code : 8480-6 BMI: 37.8 Code : 43386-9 Heart Rate 1 : 84 bpm Height: 5'6" SpO2: 96% Weight: 234 lbs 03/14/2018 Blood Pressure 1: 140/82 Code : 8480-6 BMI: 37.8 Code : 17755-8 Heart Rate 1 : 85 bpm Height: 5'6" SpO2: 98% Weight: 234 lbs 02/27/2018 Blood Pressure 1: 142/68 Code : 8480-6 BMI: 36.5 Code : 96014-4 Heart Rate 1 : 84 bpm Height: 5'6" SpO2: 97% Weight: 226 lbs 12/19/2017 Blood Pressure 1: 130/86 Code : 8480-6 BMI: 35.7 Code : 07220-0 Heart Rate 1 : 94 bpm Height: 5'6" Weight: 221 lbs 12/04/2017 Blood Pressure 1: 138/78 Code : 8480-6 BMI: 36.6 Code : 36788-9 Heart Rate 1 : 94 bpm Height: 5'6" SpO2: 98% Weight: 227 lbs 11/20/2017 Weight: 233 lbs 09/10/2017 Blood Pressure 1: 132/86 Code : 8480-6 Heart Rate 1: 86 bpm Height: Weight: 08/14/2017 Blood Pressure 1: 12074 Code : 8480-6 BMI: 33.9 Code : 58536-8 Heart Rate 1 : 92 bpm Height: 5'6" SpO2: 94% Weight: 210 lbs 07/31/2017 Blood Pressure 1: 140/80 Code : 8480-6 BMI: 33.9 Code : 29129-2 Heart Rate 1 : 96 bpm Height: 5'6" SpO2: 97% Weight: 210 lbs 06/27/2017 Blood Pressure 1: 128/80 Code : 8480-6 BMI: 33.9 Code : 75458-3 Heart Rate 1 : 85 bpm Height: [...] Code : 8480-6 BMI: 39.9 Code : 73109-2 Heart Rate 1 : 79 bpm Height: 5'6" SpO2: 97% Weight: 247 lbs 01/26/2017 Blood Pressure 1: 132/74 Code : 8480-6 BMI: 37.8 Code : 69026-9 Heart Rate 1 : 74 bpm Height: 5'6" SpO2: 97% Weight: 234 lbs 01/11/2017 Blood Pressure 1: 118/68 Code : 8480-6 BMI: 38.7 Code : 04510-9 Heart Rate 1 : 91 bpm Height: 5'6" SpO2: 96% Weight: 240 lbs 11/30/2016 Blood Pressure 1: 132/76 Code : 8480-6 BMI: 38.3 Code : 58307-9 Heart Rate 1 : 71 bpm Height: 5'6" SpO2: 92% Weight: 237 lbs 09/28/2016 Blood Pressure 1: 122/72 Code : 8480-6 BMI: 39.1 Code : 69292-5 Heart Rate 1 : 88 bpm Height: 5'6" SpO2: 94% Weight: 242 lbs 08/24/2016 Blood Pressure 1: 130/87 Code : 8480-6 BMI: 41.5 Code : 88720-4 Heart Rate 1 : 95 bpm Height: 5'6" Respiratory Rate: 16 bpm SpO2: 98% Temperature: 36.9 (C) / 98.5 (F ) Weight: 257 lbs 07/13/2016 Blood Pressure 1: 132/84 Code : 8480-6 BMI: 42.0 Code : 09917-1 Heart Rate 1 : 73 bpm Height: 5'6" SpO2: 97% Weight: 260 lbs 05/19/2016 Blood Pressure 1: 138/76 Code : 8480-6 BMI: 40.8 Code : 23255-2 Heart Rate 1 : 80 bpm Height: 5'6" SpO2: 98% Weight: 253 lbs 03/16/2016 Blood Pressure 1: 122/70 Code : 8480-6 BMI: 40.4 Code : 78741-3 Heart Rate 1 : 72 bpm Height: 5'6" SpO2: 98% Weight: 250 lbs 02/28/2016 Blood Pressure 1: 136/86 Code : 8480-6 BMI: 40.2 Code : 34250-9 Heart Rate 1 : 87 bpm Height: 5'6" SpO2: 96% Temperature: 36.3 (C) / 97.3 (F) Weight: 249 lbs 01/13/2016 Blood Pressure 1: 120/76 Code : 8480-6 BMI: 40.4 Code : 62795-2 Heart Rate 1 : 68 bpm Height: 5'6" SpO2: 97% Weight: 250 lbs 09/27/2015 Blood Pressure 1: 112/70 Code : 8480-6 BMI: 38.4 Code : 07461-8 Heart Rate 1 : 76 bpm Height: 5'6" SpO2: 98% Weight: 238 lbs 08/30/2015 Blood Pressure 1: 144/82 Code : 8480-6 BMI: 39.5 Code : 56926-1 Heart Rate 1 : 82 bpm Height: 5'6" SpO2: 97% Weight: 245 lbs 08/16/2015 Blood Pressure 1: 140/72 Code : 8480-6 BMI: 38.9 Code : 50966-9 Heart Rate 1 : 72 bpm Height: 5'6" SpO2: 97% Weight: 241 lbs 07/15/2015 Blood Pressure 1: 128/80 Code : 8480-6 BMI: 39.3 Code : 39940-9 Heart Rate 1 : 86 bpm Height: 5'6" SpO2: 98% Weight: 243 lbs 8 oz 06/16/2015 Blood Pressure 1: 146/86 Code : 8480-6 BMI: 39.6 Code : 60634-3 Heart Rate 1 : 76 bpm Height: 5'6" SpO2: 97% Weight: 245 lbs 8 oz 04/02/2015 Blood Pressure 1: 132/86 Code : 8480-6 BMI: 40.7 Code : 72320-7 Heart Rate 1 : 94 bpm Height: 5'6" SpO2: 98% Weight: 252 lbs 12/02/2014 Blood Pressure 1: 122/90 Code : 8480-6 BMI: 41.6 Code : 96266-6 Heart Rate 1 : 77 bpm Height: 5'6" SpO2: 95% Weight: 258 lbs Functional Status No Functional Status data History of Present Illness Symptom Name Status Result Effective Date Notes Quality constant 10/2018 None Quality disrupted sleep [...] Performer Location Codes Date EST. PATIENT, LEVEL IV Diagnosis: Generalized anxiety disorder[ICD10: F41.1] Diagnosis: Major depressive disorder, single episode, moderate[ICD10: F32.1] Diagnosis: Other insomnia[ICD10: G47.09] [facility] CPT-[facility] : 89013 06/19/2018 16847 EST. PATIENT, LEVEL IV Diagnosis: Right upper quadrant pain[ICD10: R10.11] Diagnosis: Other chest pain[ICD10: R07.89] [facility] CPT-4 : 32087 04/24/2018 39663 EST. PATIENT, LEVEL III Diagnosis: Generalized anxiety disorder[ICD10: F41.1] Diagnosis: Major depressive disorder, recurrent, mild[ICD10: F33.0] Diagnosis: Essential (primary) hypertension[ICD10: I10] Diagnosis: Type 2 diabetes mellitus without complications[ICD10: E11.9] Petra Trejo MD , [facility] CPT-4: 23802 04/17/2018 63260 EST. PATIENT, LEVEL III Diagnosis: Localized edema[ICD10: R60.0] Diagnosis: Essential (primary) hypertension[ICD10: I10] Petra Trejo MD, [facility] CPT-4: 57198 03/14/2018 01324 EST. PATIENT, LEVEL III Diagnosis: Pain in left knee[ICD10: M25.562] Diagnosis: Other obesity due to excess calories[ICD10: E66.09] Diagnosis: Other insomnia[ICD10: G47.09] Diagnosis: Generalized anxiety disorder[ICD10: F41.1] Petra Trejo MD, [facility] CPT-4: 35943 02/27/2018 ([id number]) Miscellaneous no charge Diagnosis: Other obesity due to excess calories[ICD10: E66.09] Heidy Trejo MD, [facility] CPT-4: 59338 12/19/2017 55694 EST. PATIENT, LEVEL III Diagnosis: Pain in right foot[ICD10: M79.671] Diagnosis: Pain in right ankle and joints of right foot[ICD10: M25.571] Petra Trejo MD , [facility] CPT-4: 17288 12/04/2017 25003 EST. PATIENT, LEVEL III Diagnosis: Pain in left knee[ICD10: M25.562] Diagnosis: Type 2 diabetes mellitus without complications[ICD10: E11.9] Diagnosis: Other obesity due to excess calories[ICD10: E66.09] Petra Trejo MD, [facility] CPT-4: 31623 11/20/2017 09891 EST. PATIENT, LEVEL III Diagnosis: Pain in left knee[ICD10: M25.562] Petra Trejo MD, [facility] CPT -4: 37537 09/10/2017 30447 EST. PATIENT, LEVEL III Diagnosis: Encounter for follow-up examination after completed treatment for conditions other than malignant neoplasm[ICD10: Z09] Diagnosis: Pain in left knee[ICD10: M25.562] Petra Trejo MD, [facility] CPT -4: 70164 08/14/2017 75102 EST. PATIENT, LEVEL III Diagnosis: Pain in left knee[ICD10: M25.562] Petra Trejo MD, [facility] CPT -4: 20476 07/31/2017 20748 EST. PATIENT, LEVEL III Diagnosis: Acute laryngopharyngitis[ICD10: J06.0] Diagnosis: Other allergic rhinitis[ICD10: J30.89] Petra Trejo MD, [facility] CPT-4: 16787 06/27/2017 50534 EST. PATIENT, LEVEL III Diagnosis: Ganglion, left hand[ICD10: M67.442] Diagnosis: Essential (primary) hypertension[ICD10: I10] Diagnosis: Generalized anxiety disorder[ICD10: F41.1] Diagnosis: Other insomnia[ICD10: G47.09] Petra Trejo MD, [facility] CPT-4 : 43978 05/29/2017 68224 EST. PATIENT, LEVEL III Diagnosis: Essential (primary) hypertension[ICD10: I10] Diagnosis: Palpitations[ICD10: R00.2] Diagnosis: Generalized anxiety disorder[ICD10: F41.1] Petra Trejo MD, [facility] CPT-4: 04724 05/21/2017 81996 EST. PATIENT, LEVEL III Diagnosis: Pain in right foot[ICD10: M79.671] Petra Trejo MD, [facility] CPT-4: 68940 04/20/2017 80678 EST. PATIENT, LEVEL IV Diagnosis: Other insomnia[ICD10: G47.09] Diagnosis: Other skin changes[ICD10: R23.8] Petra Trejo MD, [facility] CPT- 4: 17196 01/26/2017 23470 EST. PATIENT, LEVEL IV Diagnosis: Acute bronchitis due to other specified organisms[ICD10: J20.8] Petra Trejo MD, [facility] CPT-4: 94194 01/11/2017 ([id number]) 73723 EST. PATIENT, LEVEL IV Diagnosis: Essential (primary) hypertension[ICD10: I10] Diagnosis: Other insomnia[ICD10: G47.09] Diagnosis: Primary generalized (osteo)arthritis[ICD10: M15.0] Diagnosis: Other obesity due to excess calories[ICD10: E66.09] Claudette Trejo MD, [facility] CPT-4: 44533 11/30/2016 ([id number]) 73873 EST. PATIENT, LEVEL III Diagnosis: Other obesity due to excess calories[ICD10: E66.09] Diagnosis: Other insomnia[ICD10: G47.09] Diagnosis: Generalized anxiety disorder[ICD10: F41.1] Claudette Trejo MD, [facility] CPT-4: 85614 09/28/2016 ([id number]) 62366 EST. PATIENT, LEVEL IV Diagnosis: Generalized anxiety disorder[ICD10: F41.1] Diagnosis: Major depressive disorder, recurrent, mild[ICD10: F33.0] Diagnosis: Other obesity due to excess calories[ICD10: E66.09] Diagnosis: Other insomnia[ICD10: G47.09] Claudette Trejo MD, [facility] CPT-4: 72074 08/24/2016 ([id number]) 04190 EST. PATIENT, LEVEL III Diagnosis: Other obesity due to excess calories[ICD10: E66.09] Diagnosis: Major depressive disorder, recurrent, moderate[ICD10: F33.1] Diagnosis: Low back pain[ICD10: M54.5] Heidy Trejo MD, [facility] CPT- 4: 18467 07/13/2016 96952 EST. PATIENT, LEVEL IV Diagnosis: Other muscle spasm[ICD10: M62.838] Diagnosis: Generalized anxiety disorder[ICD10: F41.1] Diagnosis: Major depressive disorder, recurrent, moderate[ICD10: F33.1] Diagnosis: Other insomnia[ICD10: G47.09] Petra Trejo MD, [facility] CPT-4 : 27287 05/19/2016 ([id number]) 83893 EST. PATIENT, LEVEL III Diagnosis: Generalized anxiety disorder[ICD10: F41.1] Diagnosis: Major depressive disorder, recurrent, moderate[ICD10: F33.1] Heidy Trejo MD, [facility] CPT-4: 83544 03/16/2016 ([id number]) 84531 EST. PATIENT, LEVEL III Diagnosis: Streptococcal pharyngitis[ICD10: J02.0] Claudette Trejo MD, [facility] CPT-4: 05993 02/28/2016 ([id number]) 06712 EST. PATIENT, LEVEL III Diagnosis: Generalized anxiety disorder[ICD10: F41.1] Diagnosis: Other obesity due to excess calories[ICD10: E66.09] Heidy Trejo MD, [facility] CPT-4: 43906 01/13/2016 ([id number]) 57952 EST. PATIENT, LEVEL III Diagnosis: Generalized anxiety disorder[ICD10: F41.1] Diagnosis: Major depressive disorder, recurrent, unspecified[ICD10: F33.9] Heidy Trejo MD, [facility] CPT-4: 77090 09/27/2015 71375 EST. PATIENT, LEVEL IV Diagnosis: Chronic pain syndrome[ICD10: G89.4] Diagnosis: Other obesity due to excess calories[ICD10: E66.09] Diagnosis: Essential (primary) hypertension[ICD10: I10] Diagnosis: Generalized anxiety disorder[ICD10: F41.1] Diagnosis: Excessive and frequent menstruation with regular cycle[ICD10: N92.0] Diagnosis: Pain in right knee[ICD10: M25.561] Petra Trejo MD, [facility] CPT-4: 18704 08/30/2015 82713 EST. PATIENT, LEVEL IV Diagnosis: Palpitations[ICD10: R00.2] Diagnosis: Other obesity due to excess calories[ICD10: E66.09] Petra Trejo MD, [facility] CPT-4: 21484 08/16/2015 ([id number]) 24421 EST. PATIENT, LEVEL IV Diagnosis: Pain in right knee[ICD10: M25.561] Diagnosis: Primary generalized (osteo)arthritis[ICD10: M15.0] Diagnosis: Acute maxillary sinusitis, unspecified[ICD10: J01.00] Heidy Trejo MD, [facility] CPT-4: 18036 07/15/2015 ([id number]) 67213 EST. PATIENT, LEVEL IV Diagnosis: Primary generalized (osteo)arthritis[ICD10: M15.0] Diagnosis: Restless legs syndrome[ICD10: G25.81] Diagnosis: Chronic pain syndrome[ICD10: G89.4] [facility] CPT-4: 93749 06/16/2015 ([id number]) 64040 EST. PATIENT, LEVEL III Diagnosis: Primary generalized (osteo)arthritis[ICD10: M15.0] Diagnosis: Varicose veins of bilateral lower extremities with pain[ICD10: I83.813] Claudette Hussein [facility] CPT-4: 10132 ([id number]) OFFICE VISIT, NEW - LEVEL 3 Diagnosis: Osteoarthritis[ICD9: 715.90] Diagnosis: ABNORMAL WEIGHT GAIN[ICD9: 783.1] Diagnosis: Superficial thrombophlebitis[ICD9: 451.9] [facility] CPT-4: 48204 12/02/2014 Plan of Care Planned Activity Notes Codes Status Date Visit Plan: Anxiety - the patient has [...] this patient. 06/19/2018 Appointment: Petra Rivas WPtel: [address] [place], [place] [address] [place] (15 min) Moderate 06/19/2018 Patient Education: [...] she is to follow up with her opthalmic tech 04/24/2018 [phone] [facility] 04/24/2018 Patient Education: Patient [...] control. 04/17/2018 App[facility]ment[phone] (15 min) Moderate 04/17/2018 Patient Education: Patient [...] peripheral edema. 03/14/2018 Appointment: [facility]ivas [facility]Ptel[facility] (15 min) Moderate 03/14/2018 Patient Education: Patient [...] ortho 02/27/2018 Appointment: [phone] [facility] ([facility] min) Complex 02/27/2018 Patient Education: Patient [...] not improve. 12/04/2017 Appointment: [phone] (15 min) Moderate 12/04/2017 Patient Education: Patient [...] control. 11/20/2017 Appointment: Petra Rivas WPtel: [phone] [facility] [place] (15 min) Moderate 11/20/2017 Patient Education: [...] improve. 09/10/2017 Appointment: [phone] [facility] [place] (15 min) Moderate 09/10/2017 Patient Education: [...] improve. 08/14/2017 Appointment: [phone] [facility] [place] (30 min) Complex 08/14/2017 Patient Education: Patient Medication Summary Completed 08/14/2017 Appointment: Petra Rivas WPtel: [address] [place], [place] [phone] (15 min) Moderate 08/01/2017 Visit Plan: Knee pain - pt is to use RICE - Rest, Ice, Compression, Elevation - pt is to use crutches as directed - The pt is to use prn antiinflammatories to manage acute pain. The patient is to call the office if the pain is worsening or does not improve. 07/31/2017 Appointment: Petra Rivas WPtel: [address] [place], [place] [phone] (30 min) Complex 07/31/2017 Patient Education: Patient Medication Summary Completed 07/31/2017 Care Plan: X-RAY EXAM OF KNEE 3 [facility] : 11777-4 Pending 07/31/2017 Visit Plan: URI - Pt [...] allergy spray. 06/27/2017 Appointment: Petra Rivas WPtel: [facility] (15 min) Moderate 06/27/2017 Patient Education: Patient Medication Summary Completed 06/27/2017 [facility] Referral info faxed. Completed 06/13/2017 [...] Dr. Quinn 05/29/2017 Appointment: Petra Rivas WPtel: [facility] (15 min) Moderate 05/29/2017 Patient Education: Patient Medication Summary Completed 05/29/2017 Care Plan: Referral Order SNOMED-CT : [id number] Pending 05/29/2017 Appointment: Petra Rivas WPtel: [facility] (15 min) Moderate 05/28/2017 Visit Plan: Palpitations [...] concerns. 05/21/2017 App[facility]ment: [phone] [facility] (15 min) Moderate 05/21/2017 Patient Education: Patient Medication Summary Completed 05/21/2017 Visit Plan: Right heel pain - will send RX, pt is to do stretches as directed - The pt is to use prn antiinflammatories to manage acute pain. The patient is to call the office if the pain is worsening or does not improve. 04/20/2017 Appointment: [facility]ast[phone] (30 min) Complex 04/20/2017 Patient Education: Patient Medication Summary Completed 04/20/2017 Appointment: Petra Rivas WPtel: [facility] (30 min) Complex 03/29/2017 Patient Education: Patient Medication Summary Completed 03/16/2017 Referral: Maycol Quijano Referral Initiated 02/08/2017 Care Plan: Referral Order SNOMED-CT : [id number] Pending 01/28/2017 Visit Plan: Insomnia - Pt [...] changes, questions, or concerns. 01/26/2017 Appointment: Petra Rivastel: [facility] (30 min) Complex 01/26/2017 Patient Education: Patient [...] if symptoms acutely worsen. 01/11/2017 Appointment: [facility] Rivastel[facility] (15 min) Moderate 01/11/2017 Patient Education: Patient [...] on use. 11/30/2016 Appointment: Claudette Savage WPtel: [address] [place], [place] [phone] (15 min) Moderate 11/30/2016 Patient Education: Patient Medication Summary Completed 11/30/2016 Patient Education: Obesity Completed 11/30/2016 Care Plan: BMI Above normal followup SELF-MGMT EDUC & TRAIN 1 PT Pending 2016 Visit Plan: Phqjhdw-xvobzxfqym-assyqmdu with increase in cymbalta-no changes Insomnia-RX for belsomra provided and instructed on use Obesity-patient down 15#-no changes-continue diet/exercise-follow up in 2 months 09/28/2016 Appointment: Claudette Savage WPtel: [address] [place], [place] [phone] (15 min) Moderate 09/28/2016 Patient Education: Patient Medication Summary Completed 09/28/2016 Patient Education: Obesity Completed 09/28/2016 Care Plan: BMI Above normal followup SELF-MGMT EDUC & TRAIN 1 PT Pending 2016 Visit Plan: Citmrzg-kawwbskpse-dtmxrpdt-increase cymbalta to 60mg daily. Increase xanax as [...] insomnia/anxiety 08/24/2016 Appointment: Claud[phone] [phone] [place] (15 min) Moderate 08/24/2016 Patient Education: [...] improving. 07/13/2016 App[facility]ment[phone] ([facility] min) Moderate 07/13/2016 Patient Education: Patient [...] time insomnia. 05/19/2016 Appointment: [facility]ivas [facility] [phone] [facility] [place] (30 min) Complex 05/19/2016 Patient Education: [...] this patient. 03/16/2016 Appointment: Heidy Trejo WPtel: [phone] [facility] (15 min) Moderate 03/16/2016 Patient [...] the swab. 02/28/2016 Appointment: Claudette Savage WPtel: [phone] [phone] [place] (10 min) Simple 02/28/2016 Patient Education: [...] stop lexapro 01/13/2016 Appointment: Heidy Trejo WPtel: [phone] [facility] (15 min) Moderate 01/13/2016 Patient [...] 09/27/2015 Care Plan: Referral Order SNOMED-CT : [id number] Pending 08/31/2015 Visit Plan: Anxiety - the [...] pain symptoms. 07/15/2015 Appointment: Heidy Trejo WPtel: [address] [place], [place] [phone] (15 min) Moderate 07/15/2015 Patient Education: Patient [...] clinic 04/02/2015 Appointment: Claudette Savage WPtel: [phone] [phone] [place] (15 min) Moderate 04/02/2015 Patient Education: [...] Summary Completed 12/02/2014 Referral: Belle Hoffman WPtel: [facility] [place] [phone] they will call and set the appt with her Initiated Referral: Maycol Quijano Referral Initiated Referral: Belle Hoffman WPtel: [phone] [facility] Referral Initiated Referral: Jignesh Quinn [facility] [place] Referral Initiated Instructions Comment . Right ankle/heel pain - the patient [...] 1 mg at night for anxiety . Jakwjxy-eqevjrmtpq-wgkltpwq-increase cymbalta to 60mg daily. Increase xanax as [...] Insomnia-increase xanax as directed for insomnia/anxiety . RUQ pain - pt has had [...] she is to follow up with her opthalmic tech glucosamine and chondroiton - joint ease, joint [...] rx for cymbalta - callif not improving. We will check a D-Dimer lab today. [...] lipid profile and TSH. . Hypertension - well controlled - continue [...] celebrex provided and instructed on use. . Arthritis- occasionally uncontrolled symptoms- recommend pt [...] pt is to follow up with Dr. Zafuta - pt is to use RICE - [...] is worsening or does not improve. . Arthritis- occasionally uncontrolled symptoms- recommend pt [...] Use tylenol for break through pain symptoms. Kenalog . Strep throat - pt give rx for antibiotic - sent to pharmacy - pt had swab of throat today - will culture the swab. CALL ME IN 1 MONTH AND LET [...] improved, or if symptoms acutely worsen. . Anxiety and Depression- the patient has [...] benefits of treatment with the above medications. Breathing treatments 3 times a day x [...] cyst - will refer to Dr. Quinn cymbalta 60mg x 3 days, then cymbalta [...] been appropriately prescribed for this patient. . Hypertension - uncontrolled - the patient's [...] further attempt to reduce peripheral edema. . Palpitations - pt states that she [...] spray in the nasal steroid allergy spray. BELSOMRA . Lqjdqxt-iyzydqsjqn-wivxifdp with increase in cymbalta-no changes Insomnia-RX for belsomra provided and instructed on use Obesity-patient down 15#-no changes-continue diet/exercise-follow up in 2 months
--- OUTSIDE RECORDS SUMMARY | 2018-07-24 23:06 | XMS REPORT | CCD ---
Author Author [place] Organization [facility] Address [address] [place] [address] Phone Care Team Providers Care Security Systems Technician Name Role Phone PP Unavailable CCM Unavailable Summary Purpose Interface Exchange Insurance Providers Payer name Policy type / Coverage type Covered democrat ID Effective Begin Date Effective End Date [facility] Commercial Insurance [id number] Unknown Family history Brother Diagnosis Age At [...] Description Effective Dates Tobacco history SNOMED CT: 7823658 Quit less than 5 years ago 04/02/2015 Alcohol history Unknown occasionally drinks alcohol 04/02/2015 Marital status Unknown Manuel Vitale 12/02/2014 Number of children Unknown 3 12/02/2014 Allergies, Adverse Reactions, Alerts Substance Reaction Codes Entered Date Inactivated Date Status * NO KNOWN FOOD ALLERGIES Unknown 12/02/2014 No Inactive Date Active Penicillin Unknown 12/02/2014 No Inactive Date Active tramadol RxNorm: 81279 12/02/2014 No Inactive Date Active Past Medical [...] Start Date Stop Date Status Fill Instructions hydrochlorothiazide 25 mg tablet RxNorm: 752068 1 TABLET(S) PO DAILY 06/27/2018 09/24/2018 Active Remeron 15 mg tablet RxNorm: 334116 1/2 Tablet(s) PO QHS 201807/19/2018 Active potassium chloride ER 10 mEq tablet,extended release RxNorm: 656282 1 Tablet(s) PO daily 06/19/2018 No Stop Date Active Lexapro 20 mg tablet RxNorm: 244099 1 Tablet(s) PO daily 201807/18/2018 Active Lasix 20 mg tablet RxNorm: 185714 1 Tablet(s) PO daily 201806/21/2018 Inactive gabapentin 300 mg capsule RxNorm: 036218 1 CAPSULE(S) PO TID 08/12/2018 Active Ambien 10 mg tablet RxNorm: 240359 1 Tablet(s) PO QHS as needed insomnia 06/10/2018 09/07/2018 Active Cymbalta 30 mg capsule,delayed release RxNorm: 287754 1 Capsule(s) PO daily to be taken with 60mg to=90mg 06/03/20182018 Active Cymbalta 30 mg capsule,delayed release RxNorm: 392412 1 Capsule(s) PO daily 06/03/2018 06/02/2018 Inactive Protonix 40 mg tablet,delayed release RxNorm: 131185 1 TABLET(S) PO DAILY 05/20/2018 09/16/2018 Active gabapentin 300 mg capsule RxNorm: 855109 1 CAPSULE(S) PO TID 06/13/2018 Inactive Protonix 40 mg tablet,delayed release RxNorm: 392748 1 Tablet(s) PO daily 04/24/2018 05/19/2018 Inactive Zorvolex 35 mg capsule RxNorm: 3256992 TAKE 1 CAPSULE BY MOUTH THREE (3) TIMES DAILY 04/22/2018 08/19/2018 Active hydrochlorothiazide 25 mg tablet RxNorm: 425504 1 TABLET(S) PO DAILY 04/08/2018 06/26/2018 Inactive Zorvolex 35 mg capsule RxNorm: 1980533 TAKE 1 CAPSULE BY MOUTH THREE (3) TIMES DAILY 03/27/2018 04/21/2018 Inactive gabapentin 300 mg capsule RxNorm: 701897 1 CAPSULE(S) PO TID 04/14/2018 Inactive hydrochlorothiazide 25 mg tablet RxNorm: 729290 1 Tablet(s) PO daily 03/14/2018 04/07/2018 Inactive Cymbalta 60 mg capsule,delayed release RxNorm: 908801 1 Capsule(s) PO daily TAKE 1 CAPSULE BY MOUTH DAILY 02/27/20182019 Active Victoza 2-Marek 0.6 mg/0.1 mL (18 mg/3 mL) subcutaneous pen injector RxNorm: 183315 Milligram(s) INJECT 1.8 MG SUB-Q ONCE DAILY 02/27/2018 08/20/2019 Active qty sufficient Xanax 1 mg tablet RxNorm: 141522 1-2 Tablet(s) PO QHS as needed insomnia 02/27/2018 05/27/2018 Inactive atorvastatin 20 mg tablet RxNorm: 219069 1 Tablet(s) PO daily 02/27/2018 05/22/2019 Active Cymbalta 60 mg capsule,delayed release RxNorm: 137804 TAKE 1 CAPSULE BY MOUTH DAILY 02/27/2018 02/26/2018 Inactive gabapentin 300 mg capsule RxNorm: 578611 1 Capsule(s) PO TID 03/24/2018 Inactive meloxicam 7.5 mg tablet RxNorm: 501464 1 Tablet(s) PO daily 1 TABLET(S) PO DAILY 02/27/2018 04/14/2018 Inactive Ambien 10 mg tablet RxNorm: 304721 1 Tablet(s) PO QHS as needed insomnia 02/27/2018 05/25/2018 Inactive atorvastatin 20 mg tablet RxNorm: 513096 1 Tablet(s) PO daily 02/05/2018 02/26/2018 Inactive atorvastatin 20 mg tablet RxNorm: 338077 1 Tablet(s) PO daily 02/05/2018 02/04/2018 Inactive meloxicam 7.5 mg tablet RxNorm: 990625 1 TABLET(S) PO DAILY 02/26/2018 Inactive oxycodone 15 mg tablet RxNorm: 3021436 1 Tablet(s) PO QID as needed 01/07/2018 02/19/2018 Inactive lactulose 20 gram/30 mL oral solution RxNorm: 810535 15-30 Milliliter(s) PO BID as needed 12/31/2017 02/20/2018 Inactive meloxicam 7.5 mg tablet RxNorm: 929795 1 TABLET(S) PO DAILY 06/201701/31/2018 Inactive Zorvolex 35 mg capsule RxNorm: 0824197 1 Capsule(s) PO TID 06/201702/20/2018 Inactive Ambien 10 mg tablet RxNorm: 365575 1 Tablet(s) PO QHS as needed insomnia 12/04/2017 02/26/2018 Inactive oxycodone 15 mg tablet RxNorm: 7887168 1 Tablet(s) PO QID as needed 12/04/2017 01/06/2018 Inactive prednisone 20 mg tablet RxNorm: 333307 2 Tablet(s) PO daily 12/08/2017 Inactive Victoza 2-Marek 0.6 mg/0.1 mL (18 mg/3 mL) subcutaneous pen injector RxNorm: 762099 Milligram(s) INJECT 1.8 MG SUB-Q ONCE DAILY 11/20/2017 02/26/2018 Inactive meloxicam 7.5 mg tablet RxNorm: 952732 1 Tablet(s) PO daily 02/201812/12/2017 Inactive phentermine 37.5 mg tablet RxNorm: 445012 1 Tablet(s) PO daily 11/20/2017 12/19/2017 Inactive Ambien 10 mg tablet RxNorm: 196578 1 Tablet(s) PO QHS as needed insomnia 11/20/2017 12/18/2017 Inactive Xanax 1 mg tablet RxNorm: 970075 1.5 Tablet(s) PO QHS as needed insomnia 11/20/2017 02/26/2018 Inactive hydrocodone 7.5 mg-acetaminophen 325 mg tablet RxNorm: 440392 1 Tablet(s) PO TID as needed 11/16/2017 01/06/2018 Inactive Cymbalta 60 mg capsule,delayed release RxNorm: 580300 TAKE 1 CAPSULE BY MOUTH DAILY 11/02/2017 02/26/2018 Inactive Xanax 1 mg tablet RxNorm: 941412 1 Tablet(s) PO BID PRN as needed anxiety 10/04/2017 11/19/2017 Inactive Victoza 2-Marek 0.6 mg/0.1 mL (18 mg/3 mL) subcutaneous pen injector RxNorm: 125955 INJECT 1.8 MG SUB-Q ONCE DAILY 10/04/2017 11/19/2017 Inactive hydrocodone 7.5 mg-acetaminophen 325 mg tablet RxNorm: 851599 1 Tablet(s) PO TID as needed 09/17/2017 11/15/2017 Inactive hydrocodone 7.5 mg-acetaminophen 325 mg tablet RxNorm: 202129 1 Tablet(s) PO TID as needed 09/10/2017 09/16/2017 Inactive prednisone 10 mg tablet RxNorm: 585884 Tablet(s) PO 09/10/2017 11/13/2017 Inactive 6, 5,4,3,2,1 Zorvolex 35 mg capsule RxNorm: 5203100 1 Capsule(s) PO TID 11/13/2017 Inactive Ambien 10 mg tablet RxNorm: 696533 1 Tablet(s) PO QHS as needed insomnia 08/29/2017 11/19/2017 Inactive Zorvolex 35 mg capsule RxNorm: 4703811 1 Capsule(s) PO TID 09/06/2017 Inactive Zorvolex 35 mg capsule RxNorm: 9257127 1 Capsule(s) PO TID 06/201708/27/2017 Inactive Zorvolex 35 mg capsule RxNorm: 9484726 1 Capsule(s) PO TID 06/201708/12/2017 Inactive prednisone 20 mg tablet RxNorm: 304165 2 Tablet(s) PO daily 08/04/2017 Inactive hydrocodone 7.5 mg-acetaminophen 325 mg tablet RxNorm: 943945 1 Tablet(s) PO TID as needed 07/31/2017 09/09/2017 Inactive Zorvolex 35 mg capsule RxNorm: 4295755 1 Capsule(s) PO TID as needed 07/31/2017 11/13/2017 Inactive ceftriaxone 500 mg solution for injection RxNorm: 7979577 1 Milliliter(s) Inj 06/27/2017 06/27/2017 Inactive Keflex 500 mg capsule RxNorm: 388040 1 Capsule(s) PO TID 201707/03/2017 Inactive Ambien 10 mg tablet RxNorm: 525527 1 Tablet(s) PO daily 201708/25/2017 Inactive tramadol 50 mg tablet RxNorm: 534404 1 Tablet(s) PO TID as needed 05/29/2017 07/27/2017 Inactive Xanax 1 mg tablet RxNorm: 439673 1 Tablet(s) PO BID PRN as needed anxiety 05/21/2017 10/03/2017 Inactive alprazolam 1 mg tablet RxNorm: 752132 1 Tablet(s) PO BID as needed 05/21/2017 06/19/2017 Inactive Celebrex 200 mg capsule RxNorm: 919463 1 CAPSULE(S) PO BID 11/05/2017 Inactive prednisone 20 mg tablet RxNorm: 000721 2 Tablet(s) PO daily 12/201604/24/2017 Inactive Ambien 10 mg tablet RxNorm: 830770 Tablet(s) PO 04/20/2017 05/28/2017 Inactive hydrocodone 5 mg-acetaminophen 325 mg tablet RxNorm: 550076 1 Tablet(s) PO QID as needed 04/20/2017 08/01/2017 Inactive Cymbalta 60 mg capsule,delayed release RxNorm: 345664 1 Capsule(s) PO daily 04/20/2017 02/26/2018 Inactive Victoza 2-Marek 0.6 mg/0.1 mL (18 mg/3 mL) subcutaneous pen injector RxNorm: 308204 INJECT 1.8 MG SUB-Q ONCE DAILY 03/26/2017 09/21/2017 Inactive diazepam 2 mg tablet RxNorm: 379214 1 Tablet(s) PO QHS as needed insomnia 01/28/2017 05/07/2017 Inactive Victoza 2-Marek 0.6 mg/0.1 mL (18 mg/3 mL) subcutaneous pen injector RxNorm: 480006 1.8 Milligram(s) SQ daily 01/26/201703/25 Inactive dispense quantity sufficient Tussionex Pennkinetic ER 10 mg-8 mg/5 mL suspension, extended release RxNorm: 6471064 5 Milliliter(s) PO BID 01/11/2017 01/15/2017 Inactive Xanax 1 mg tablet RxNorm: 566930 1 Tablet(s) PO BID PRN as needed anxiety 01/11/2017 05/20/2017 Inactive Zithromax Z-Marek 250 mg tablet RxNorm: 534609 1 Tablet(s) PO UD 01/11/2017 01/15/2017 Inactive zpack albuterol sulfate 2.5 mg/3 mL (0.083 %) solution for nebulization RxNorm: 840948 3 Milliliter(s) INH UD 01/11/201707/2017 Inactive prednisone 20 mg tablet RxNorm: 339510 2 Tablet(s) PO daily 01/15/2017 Inactive Kenalog 40 mg/mL suspension for injection RxNorm: 1619695 1.5 Milliliter(s) Inj 01/11/2017 01/11/2017 Inactive Celebrex 200 mg capsule RxNorm: 478116 1 Capsule(s) PO BID 02/27/2017 Inactive Ambien 5 mg tablet RxNorm: 321989 1 Tablet(s) PO HS PRN 11/3008/07/2017 Inactive trazodone 50 mg tablet RxNorm: 513168 1/2 to 1 Tablet(s) PO QHS 10/13/2016 10/12/2016 Inactive trazodone 50 mg tablet RxNorm: 521887 1/2 to 1 Tablet(s) PO QHS 10/13/2016 11/29/2016 Inactive Belsomra 10 mg tablet RxNorm: 3902536 1 Tablet(s) PO QHS 201611/29/2016 Inactive may increase to 20mg if 10mg not effective Cymbalta 60 mg capsule,delayed release RxNorm: 030659 1 Capsule(s) PO daily 08/24/2016 03/21/2017 Inactive Xanax 1 mg tablet RxNorm: 164659 1 Tablet(s) PO BID PRN as needed anxiety 08/24/2016 01/10/2017 Inactive Victoza 2-Marek 0.6 mg/0.1 mL (18 mg/3 mL) subcutaneous pen injector RxNorm: 482372 Milligram(s) SQ 08/24/2016 08/23/2016 Inactive Victoza 2-Marek 0.6 mg/0.1 mL (18 mg/3 mL) subcutaneous pen injector RxNorm: 953017 1.8 Milligram(s) SQ 08/24/2016 01/25/2017 Inactive Vitamin D2 50,000 unit capsule RxNorm: 139228 1 Capsule(s) PO QW 07/13/2016 10/10/2016 Inactive Cymbalta 30 mg capsule,delayed release RxNorm: 298091 1 Capsule(s) PO daily 07/13/2016 08/23/2016 Inactive Belviq XR 20 mg tablet,extended release RxNorm: 4688305 1 Tablet(s) PO daily 05/30/2016 05/29/2016 Inactive prednisone 20 mg tablet RxNorm: 382680 2 Tablet(s) PO daily 06/03/2016 Inactive prednisone 20 mg tablet RxNorm: 554105 2 Tablet(s) PO daily 05/29/2016 Inactive Belviq XR 20 mg tablet,extended release RxNorm: 8288322 1 Tablet(s) PO daily 05/30/2016 06/28/2016 Inactive cyclobenzaprine 5 mg tablet RxNorm: 549178 1-2 Tablet(s) PO TID as needed 05/19/2016 05/23/2016 Inactive metoprolol succinate ER 25 mg tablet,extended release 24 hr RxNorm: 757182 1 Tablet(s) PO QPM 04/10/2016 04/13/2016 Inactive metoprolol succinate ER 25 mg tablet,extended release 24 hr RxNorm: 269209 1 Tablet(s) PO QPM 04/10/2016 04/09/2016 Inactive escitalopram 10 mg tablet RxNorm: 757124 1 Tablet(s) PO daily 03/16/2016 07/12/2016 Inactive estradiol 1 mg tablet RxNorm: 118941 1 Tablet(s) PO every other day 03/16/2016 05/15/2016 Inactive Kenalog 40 mg/mL suspension for injection RxNorm: 0918148 Milliliter(s) Inj 02/28/2016 02/28/2016 Inactive Zithromax Z-Marek 250 mg tablet RxNorm: 264464 1 Tablet(s) PO UD 02/28/2016 03/03/2016 Inactive zpack Lexapro 10 mg tablet RxNorm: 093994 1 Tablet(s) PO daily 201502/27/2016 Inactive Lexapro 10 mg tablet RxNorm: 071885 1 Tablet(s) PO daily 201509/26/2015 Inactive Vimovo 500 mg-20 mg tablet,immediate and delay release RxNorm: 799478 1 Tablet(s) PO BID as needed for pain 08/30/201509/25 Inactive azithromycin 250 mg tablet RxNorm: 946279 1 Tablet(s) PO UD 2 pills on day #1, then one pill daily x 4 days 07/15/2015 Inactive hydrocodone 10 mg-acetaminophen 325 mg tablet RxNorm: 291285 1 Tablet(s) PO QID 06/16/2015 01/12/2016 Inactive pramipexole 0.5 mg tablet RxNorm: 999713 1 Tablet(s) PO QPM 07/201507/14/2015 Inactive Celebrex 200 mg capsule RxNorm: 718646 1 Capsule(s) PO daily 05/02/2015 Inactive Celebrex 200 mg capsule RxNorm: 977368 1 Capsule(s) PO daily 01/12/2016 Inactive hydrocodone 7.5 mg-acetaminophen 325 mg tablet RxNorm: 417145 1 Tablet(s) PO Q6 PRN 05/03/2015 06/15/2015 Inactive Mobic 15 mg tablet RxNorm: 165363 1 Tablet(s) PO daily 201405/02/2015 Inactive hydrocodone 7.5 mg-acetaminophen 325 mg tablet RxNorm: 561083 1 Tablet(s) PO Q6 PRN 04/02/2015 05/02/2015 Inactive hydrocodone 5 mg-acetaminophen 325 mg tablet RxNorm: 270917 1 Tablet(s) PO Q6 as needed 12/11/2014 04/01/2015 Inactive Pennsaid 1.5 % topical drops RxNorm: 039041 40 Drop(s) TOP QID as needed 12/07/2014 02/04/2015 Inactive Apply 40 drops to each knee joint 4 times per day as needed for osteoarthritis pain estradiol 1 mg tablet RxNorm: 153191 1 Tablet(s) PO QHS No Start Date 03/15/2016 Inactive Xanax 0.5 mg tablet RxNorm: 760557 1 Tablet(s) PO Q6 as needed anxiety No Start Date 08/23/2016 Inactive Tylenol Extra Strength 500 mg tablet RxNorm: 805188 3 Tablet(s) PO BID after breakfast and after lunch No Start Date Inactive lactulose 20 gram/30 mL oral solution RxNorm: 956440 15-30 Milliliter(s) PO BID as needed No Start Date 12/30/2017 Inactive hydrocodone 5 mg-acetaminophen 325 mg tablet RxNorm: 083950 1 Tablet(s) PO Q6 as needed No Start Date 12/10/2014 Inactive Phenergan-Codeine syrup RxNorm: 5-10 Milliliter(s) PO QID as needed No Start Date 11/13/2017 Inactive ibuprofen 200 mg capsule RxNorm: 780158 4 Capsule(s) PO QID as needed No Start Date 04/01/2015 Inactive Medication Administered Medication Codes Instructions Start Date Status ceftriaxone 500 mg solution for injection RxNorm: 9449362 1Milliliter 06/27/2017 No longer Active Kenalog 40 mg/mL suspension for injection RxNorm: 4799772 1.5Milliliter 01/11/2017 No longer Active Kenalog 40 mg/mL suspension for injection RxNorm: 5679067 Milliliter 02/28/2016 No longer Active Immunizations Vaccine Codes Date Status Influenza CVX: 141 03/16/2017 completed Pneumococcal (Adult) CVX: 33 03/16/2017 completed Assessments Condition Codes Effective Dates Major depressive disorder, single episode, moderate ICD-10: F32.1 ICD-9: 296.22 06/19/2018 Other insomnia ICD-10: G47.09 ICD-9: 327.09 06/19/2018 Generalized anxiety disorder ICD-10: F41.1 ICD-9: 300.00 06/19/2018 Other chest pain ICD-10: R07.89 ICD-9: 786.59 04/24/2018 Right upper quadrant pain ICD-10: R10.11 ICD-9: 789.01 04/24/2018 Essential (primary) hypertension ICD-10: I10 ICD-9: 401.1 04/17/2018 Major depressive disorder, recurrent, mild ICD-10: F33.0 ICD-9: 296.31 04/17/2018 Type 2 diabetes mellitus without complications ICD-10: E11.9 ICD-9: 250.00 04/17/2018 Localized edema ICD-10: R60.0 ICD-9: 782.3 03/14/2018 Pain in left knee ICD-10: M25.562 ICD-9: 719.46 02/27/2018 Other obesity due to excess calories ICD-10: E66.09 ICD-9: 278.00 02/27/2018 Generalized anxiety disorder ICD-10: F41.1 ICD-9: 300.02 02/27/2018 Pain in right ankle and joints of right foot ICD-10: M25.571 ICD-9: 719.47 12/04/2017 Pain in right foot ICD-10: M79.671 ICD-9: 729.5 12/04/2017 Encounter for follow-up examination after completed treatment for conditions other than malignant neoplasm ICD-10: Z09 ICD-9: V67.9 08/14/2017 Acute laryngopharyngitis ICD-10: J06.0 ICD-9: 465.0 06/27/2017 Other allergic rhinitis ICD-10: J30.89 ICD-9: 477.8 06/27/2017 Ganglion, left hand ICD-10: M67.442 ICD-9: 727.43 05/29/2017 Essential (primary) hypertension ICD-10: I10 ICD-9: 401.9 05/29/2017 Generalized anxiety disorder ICD-10: F41.1 ICD-9: 308.0 05/29/2017 Palpitations ICD-10: R00.2 ICD-9: 785.1 05/21/2017 VACCIN FOR INFLUENZA ICD-10: Z23 ICD-9: V04.81 03/16/2017 Encounter for immunization ICD-10: Z23 ICD-9: V03.82 03/16/2017 Other skin changes ICD-10: R23.8 ICD-9: 782.9 01/26/2017 Acute bronchitis due to other specified organisms ICD-10: J20.8 ICD-9: 466.0 01/11/2017 Primary generalized (osteo)arthritis ICD-10: M15.0 ICD-9: 715.09 11/30/2016 Major depressive disorder, recurrent, moderate ICD-10: F33.1 ICD-9: 296.32 07/13/2016 Low back pain ICD-10: M54.5 ICD-9: 724.2 07/13/2016 Other muscle spasm ICD-10: M62.838 ICD-9: 728.85 05/19/2016 Streptococcal pharyngitis ICD-10: J02.0 ICD-9: 034.0 02/28/2016 Major depressive disorder, recurrent, unspecified ICD-10: F33.9 ICD-9: 296.30 09/27/2015 Pain in right knee ICD-10: M25.561 ICD-9: 719.46 08/30/2015 Chronic pain syndrome ICD-10: G89.4 ICD-9: 338.4 08/30/2015 Excessive and frequent menstruation with regular cycle ICD- 10: N92.0 ICD-9: 626.2 08/30/2015 Acute maxillary sinusitis, unspecified ICD-10: J01.00 ICD-9: 461.0 07/15/2015 Restless legs syndrome ICD-10: G25.81 ICD-9: 333.94 06/16/2015 Varicose veins of bilateral lower extremities with pain ICD- 10: I83.813 ICD-9: 454.8 04/02/2015 Osteoarthritis ICD-9: 715.90 12/02/2014 ABNORMAL WEIGHT GAIN ICD-9: 783.1 2014 Superficial thrombophlebitis ICD-9: 451.9 12/02/2014 Reason For Visit Reason For Visit Effective [...] Code Item Item Code Result Date %Hba1C Paf276 % HbA1c 15570-0 6.7 % 11/20/2017 %Hba1C Axq258 Gluc Ave 146 mg/dL 11/20/2017 Free T4 Dki047 FREE T4 0.76 ng/dL 05/21/2017 Tsh Ord6 hTSH II 1.27 uIU/mL 05/21/2017 Comp Metabolic Cfe643 NA 140 mEq/L 05/21/2017 Comp Metabolic Roe189 K 3.9 mEq/L 05/21/2017 Comp Metabolic Ucz406 CL 101 mEq/L 05/21/2017 Comp Metabolic Sxg243 CO2 28.0 mEq/L 05/21/2017 Comp Metabolic Mvc284 ANION GAP 15 05/21/2017 Comp Metabolic Ggg392 GLUCOSE 155 mg/dL 05/21/2017 Comp Metabolic Ter385 Creat 0.7 mg/dL 05/21/2017 Comp Metabolic Bqm633 eGFR 87 ml/min/1.73m2 05/21/2017 Comp Metabolic Yap262 BUN 16 mg/dL 05/21/2017 Comp Metabolic Kqy645 B/C Ratio 21.6 Ratio 05/21/2017 Comp Metabolic Kzd683 CALCIUM 9.4 mg/dL 05/21/2017 Comp Metabolic Kcv593 ALK PHOS 132 U/L 05/21/2017 Comp Metabolic Zto726 AST(SGOT) 16 U/L 05/21/2017 Comp Metabolic Deq816 ALT(SGPT) 20 U/L 05/21/2017 Comp Metabolic Rcz235 BILI T 0.4 mg/dL 05/21/2017 Comp Metabolic Zlu115 ALBUMIN 4.0 g/dL 05/21/2017 Comp Metabolic Feq024 TPRO 6.7 g/dL 05/21/2017 Comp Metabolic Rwo709 GLOB 2.7 g/dL 05/21/2017 Comp Metabolic Kgq083 A/G Ratio 1.5 Ratio 05/21/2017 Comp Metabolic Zip590 Osmo 284 mOsmo 05/21/2017 Cbc With Differential [...] 87.7 fl 05/21/2017 Cbc With Differential Ord2 [place]% 5.5 % 05/21/2017 Cbc With Differential Ord2 MCH 28.9 pg 05/21/2017 Cbc With Differential Ord2 MCHC 33.0 pg 05/21/2017 Cbc With Differential Ord2 Eos% 0.6 % 05/21/2017 Cbc With Differential Ord2 Baso% 0.2 % 05/21/2017 Cbc With Differential Ord2 PLT 357 K/ul 05/21/2017 Cbc With Differential Ord2 RDW 14.0 % 05/21/2017 Cbc With Differential Ord2 Neut ABS# 10.59 K/ul 05/21/2017 Cbc With Differential Ord2 Lymph ABS# 2.65 K/ul 05/21/2017 Cbc With Differential Ord2 [place] ABS# 0.8 K/ul 05/21/2017 Cbc With Differential Ord2 Eos ABS# 0.1 K/ul 05/21/2017 Cbc With Differential Ord2 Baso ABS# 0.0 K/ul 05/21/2017 Estrogens Total 909598 ESTROGENS, TOTAL 54 pg/mL 05/24/2016 Tsh Ord6 hTSH II 1.56 uIU/mL 05/19/2016 Comp Metabolic Vht208 NA 136 mEq/L 05/19/2016 Comp Metabolic Twr201 K 4.3 mEq/L 05/19/2016 Comp Metabolic Lzn143 CL 100 mEq/L 05/19/2016 Comp Metabolic Qfe440 CO2 28.0 mEq/L 05/19/2016 Comp Metabolic Udb022 ANION GAP 12 05/19/2016 Comp Metabolic Vkn019 GLUCOSE 138 mg/dL 05/19/2016 Comp Metabolic Hzh719 Creat 0.7 mg/dL 05/19/2016 Comp Metabolic Sep945 eGFR 89 ml/min/1.73m2 05/19/2016 Comp Metabolic Fzy289 BUN 15 mg/dL 05/19/2016 Comp Metabolic Otx426 B/C Ratio 20.5 Ratio 05/19/2016 Comp Metabolic Kbw170 CALCIUM 9.7 mg/dL 05/19/2016 Comp Metabolic Egr778 ALK PHOS 106 U/L 05/19/2016 Comp Metabolic Abz956 AST(SGOT) 21 U/L 05/19/2016 Comp Metabolic Okq150 ALT(SGPT) 24 U/L 05/19/2016 Comp Metabolic Eai222 BILI T 0.4 mg/dL 05/19/2016 Comp Metabolic Qas272 ALBUMIN 4.1 g/dL 05/19/2016 Comp Metabolic Xef373 TPRO 7.1 g/dL 05/19/2016 Comp Metabolic Xeh408 GLOB 3.0 g/dL 05/19/2016 Comp Metabolic Aut135 A/G Ratio 1.4 Ratio 05/19/2016 Comp Metabolic Van127 Osmo 275 mOsmo 05/19/2016 Cbc With Differential [...] 28.5 pg 05/19/2016 Cbc With Differential Ord2 [place]% 6.5 % 05/19/2016 Cbc With Differential Ord2 MCHC 32.9 pg 05/19/2016 Cbc With Differential Ord2 Eos% 0.8 % 05/19/2016 Cbc With Differential Ord2 PLT 334 K/ul 05/19/2016 Cbc With Differential Ord2 Baso% 0.2 % 05/19/2016 Cbc With Differential Ord2 Neut ABS# 5.77 K/ul 05/19/2016 Cbc With Differential Ord2 RDW 14.7 % 05/19/2016 Cbc With Differential Ord2 Lymph ABS# 2.33 K/ul 05/19/2016 Cbc With Differential Ord2 [place] ABS# 0.6 K/ul 05/19/2016 Cbc With Differential Ord2 Eos ABS# 0.1 K/ul 05/19/2016 Cbc With Differential Ord2 Baso ABS# 0.0 K/ul 05/19/2016 Progesterone Prog 0.03 ng/mL 05/19/2016 Magnesium Ord90 Mag 1.8 mg/dL 05/19/2016 C RAP A SC [id number] Strep A Negative 02/28/2016 Tsh Ord6 hTSH II 1.65 uIU/mL 08/16/2015 Comp Metabolic Yiw651 NA 132 mEq/L 08/16/2015 Comp Metabolic Ypo446 K 3.6 mEq/L 08/16/2015 Comp Metabolic Luw532 CL 99 mEq/L 08/16/2015 Comp Metabolic Lbi044 CO2 23.0 mEq/L 08/16/2015 Comp Metabolic Fug382 ANION GAP 14 08/16/2015 Comp Metabolic Wbw214 GLUCOSE 101 mg/dL 08/16/2015 Comp Metabolic Nbl051 Creat 0.7 mg/dL 08/16/2015 Comp Metabolic Jpv600 eGFR 100 ml/min/1.73m2 08/16/2015 Comp Metabolic Nsy255 BUN 10 mg/dL 08/16/2015 Comp Metabolic Xib968 B/C Ratio 15.2 Ratio 08/16/2015 Comp Metabolic Yvw555 CALCIUM 9.3 mg/dL 08/16/2015 Comp Metabolic Dat111 ALK PHOS 100 U/L 08/16/2015 Comp Metabolic Nmh348 AST(SGOT) 14 U/L 08/16/2015 Comp Metabolic Olz481 ALT(SGPT) 11 U/L 08/16/2015 Comp Metabolic Lit137 BILI T 0.3 mg/dL 08/16/2015 Comp Metabolic Sdf558 ALBUMIN 3.9 g/dL 08/16/2015 Comp Metabolic Url778 TPRO 7.1 g/dL 08/16/2015 Comp Metabolic Hao984 GLOB 3.2 g/dL 08/16/2015 Comp Metabolic Dqm181 A/G Ratio 1.2 Ratio 08/16/2015 Comp Metabolic Lfg849 Osmo 264 mOsmo 08/16/2015 Cbc With Differential Ord2 WBC 9.02 K/ul 08/16/2015 Cbc With Differential Ord2 RBC 4.97 M/ul 08/16/2015 Cbc With Differential Ord2 HGB 13.0 g/dl 08/16/2015 Cbc With Differential Ord2 Neut% 66.0 % 08/16/2015 Cbc With Differential Ord2 HCT 40.2 % 08/16/2015 Cbc With Differential Ord2 MCV 80.9 fl 08/16/2015 Cbc With Differential Ord2 Lymph% 25.7 % 08/16/2015 Cbc With Differential Ord2 MCH 26.2 pg 08/16/2015 Cbc With Differential Ord2 [place]% 7.1 % 08/16/2015 Cbc With Differential Ord2 [...] 2.32 K/ul 08/16/2015 Cbc With Differential Ord2 [place] ABS# 0.6 K/ul 08/16/2015 Cbc With Differential Ord2 Eos ABS# 0.1 K/ul 08/16/2015 Cbc With Differential Ord2 Baso ABS# 0.0 K/ul 08/16/2015 Cbc With Differential Ord2 New Analyzer Notice Please note new ref ranges starting 05-26-2015 due to implemntation of new five part differential hematolgy analyzer. 08/16/2015 Cbc With Differential Ord2 WBC 6.6 K/uL [...] With Differential Ord2 RDW 14.6 % 12/03/2014 D-Dimer D-DIMER 168 NG/ML 12/03/2014 D-Dimer COMMENT 12/03/2014 Tsh Ord6 hTSH II 1.13 uIU/mL 12/03/2014 Comp Metabolic Ytu282 NA 132 mEq/L 12/03/2014 Comp Metabolic Thx526 K 4.0 mEq/L 12/03/2014 Comp Metabolic Tku557 CL 101 mEq/L 12/03/2014 Comp Metabolic Vzj905 CO2 22.0 mEq/L 12/03/2014 Comp Metabolic Van095 ANION GAP 13 12/03/2014 Comp Metabolic Rrj921 GLUCOSE 123 mg/dL 12/03/2014 Comp Metabolic Uil159 Creat 0.7 mg/dL 12/03/2014 Comp Metabolic Bps037 eGFR 97 ml/min/1.73m2 12/03/2014 Comp Metabolic Daf669 BUN 10 mg/dL 12/03/2014 Comp Metabolic Hhx610 B/C Ratio 14.7 Ratio 12/03/2014 Comp Metabolic Hee236 CALCIUM 9.2 mg/dL 12/03/2014 Comp Metabolic Fyi044 ALK PHOS 88 U/L 12/03/2014 Comp Metabolic Zjt802 AST(SGOT) 18 U/L 12/03/2014 Comp Metabolic Pjl350 ALT(SGPT) 17 U/L 12/03/2014 Comp Metabolic Sak311 BILI T 0.5 mg/dL 12/03/2014 Comp Metabolic Lqp817 ALBUMIN 3.9 g/dL 12/03/2014 Comp Metabolic Jsn284 TPRO 6.8 g/dL 12/03/2014 Comp Metabolic Qyi448 GLOB 2.9 g/dL 12/03/2014 Comp Metabolic Vkp682 A/G Ratio 1.3 Ratio 12/03/2014 Comp Metabolic Wgx638 Osmo 265 mOsmo 12/03/2014 Lipid Ord30 CHOL 209 mg/dL 12/03/2014 Lipid Ord30 HDL 42.0 mg/dl 12/03/2014 Lipid Ord30 TRIG 219 mg/dL 12/03/2014 Lipid Ord30 LDL 123 mg/dL 12/03/2014 Lipid Ord30 C/HDL 5.0 Ratio 12/03/2014 Review of Systems System Result Effective [...] Procedure Codes Date THER/PROPH/DIAG INJ SC/IM CPT-4: 94083 06/27/2017 ROCEPHIN, PER 250 MG CPT-4: J0696 06/27/2017 IMMUNIZATION ADMIN CPT -4: 91776 03/16/2017 FLU VAC NO PRSV 4 FLETCHER 3 YRS+ CPT-4: 45956 03/16/2017 Pneumococcal Polysaccharide Vaccine, 23-Valent, Ad CPT-4: 59741 03/16/2017 IMMUNIZATION ADMIN EACH ADD CPT-4: 12933 03/16/2017 TRIAMCINOLONE ACET INJ NOS CPT-4: J3301 01/11/2017 TRIAMCINOLONE ACET INJ NOS CPT-4: J3301 02/28/2016 Vital Signs Date Vital 06/19/2018 Blood Pressure 1: 124/74 Code : 8480-6 BMI: 38.6 Code : 85352-5 Heart Rate 1 : 85 bpm Height: 5'6" SpO2: 95% Weight: 239 lbs 04/24/2018 Blood Pressure 1: 128/74 Code : 8480-6 BMI: 37.8 Code : 21388-8 Heart Rate 1 : 107 bpm Height: 5'6" SpO2: 98% Weight: 234 lbs 04/17/2018 Blood Pressure 1: 120/64 Code : 8480-6 BMI: 37.8 Code : 06120-4 Heart Rate 1 : 84 bpm Height: 5'6" SpO2: 96% Weight: 234 lbs 03/14/2018 Blood Pressure 1: 140/82 Code : 8480-6 BMI: 37.8 Code : 63826-9 Heart Rate 1 : 85 bpm Height: 5'6" SpO2: 98% Weight: 234 lbs 02/27/2018 Blood Pressure 1: 142/68 Code : 8480-6 BMI: 36.5 Code : 17999-7 Heart Rate 1 : 84 bpm Height: 5'6" SpO2: 97% Weight: 226 lbs 12/19/2017 Blood Pressure 1: 130/86 Code : 8480-6 BMI: 35.7 Code : 23742-7 Heart Rate 1 : 94 bpm Height: 5'6" Weight: 221 lbs 12/04/2017 Blood Pressure 1: 138/78 Code : 8480-6 BMI: 36.6 Code : 06137-5 Heart Rate 1 : 94 bpm Height: 5'6" SpO2: 98% Weight: 227 lbs 11/20/2017 Weight: 233 lbs 09/10/2017 Blood Pressure 1: 132/86 Code : 8480-6 Heart Rate 1: 86 bpm Height: Weight: 08/14/2017 Blood Pressure 1: 120/74 Code : 8480-6 BMI: 33.9 Code : 09944-6 Heart Rate 1 : 92 bpm Height: 5'6" SpO2: 94% Weight: 210 lbs 07/31/2017 Blood Pressure 1: 140/80 Code : 8480-6 BMI: 33.9 Code : 33139-4 Heart Rate 1 : 96 bpm Height: 5'6" SpO2: 97% Weight: 210 lbs 06/27/2017 Blood Pressure 1: 128/80 Code : 8480-6 BMI: 33.9 Code : 07646-1 Heart Rate 1 : 85 bpm Height: [...] Code : 8480-6 BMI: 39.9 Code : 28201-4 Heart Rate 1 : 79 bpm Height: 5'6" SpO2: 97% Weight: 247 lbs 01/26/2017 Blood Pressure 1: 132/74 Code : 8480-6 BMI: 37.8 Code : 36846-1 Heart Rate 1 : 74 bpm Height: 5'6" SpO2: 97% Weight: 234 lbs 01/11/2017 Blood Pressure 1: 118/68 Code : 8480-6 BMI: 38.7 Code : 28378-8 Heart Rate 1 : 91 bpm Height: 5'6" SpO2: 96% Weight: 240 lbs 11/30/2016 Blood Pressure 1: 132/76 Code : 8480-6 BMI: 38.3 Code : 09715-2 Heart Rate 1 : 71 bpm Height: 5'6" SpO2: 92% Weight: 237 lbs 09/28/2016 Blood Pressure 1: 122/72 Code : 8480-6 BMI: 39.1 Code : 61012-6 Heart Rate 1 : 88 bpm Height: 5'6" SpO2: 94% Weight: 242 lbs 08/24/2016 Blood Pressure 1: 130/87 Code : 8480-6 BMI: 41.5 Code : 30552-2 Heart Rate 1 : 95 bpm Height: 5'6" Respiratory Rate: 16 bpm SpO2: 98% Temperature: 36.9 (C) / 98.5 (F ) Weight: 257 lbs 07/13/2016 Blood Pressure 1: 132/84 Code : 8480-6 BMI: 42.0 Code : 88210-0 Heart Rate 1 : 73 bpm Height: 5'6" SpO2: 97% Weight: 260 lbs 05/19/2016 Blood Pressure 1: 138/76 Code : 8480-6 BMI: 40.8 Code : 02167-9 Heart Rate 1 : 80 bpm Height: 5'6" SpO2: 98% Weight: 253 lbs 03/16/2016 Blood Pressure 1: 122/70 Code : 8480-6 BMI: 40.4 Code : 76172-3 Heart Rate 1 : 72 bpm Height: 5'6" SpO2: 98% Weight: 250 lbs 02/28/2016 Blood Pressure 1: 136/86 Code : 8480-6 BMI: 40.2 Code : 07609-8 Heart Rate 1 : 87 bpm Height: 5'6" SpO2: 96% Temperature: 36.3 (C) / 97.3 (F) Weight: 249 lbs 01/13/2016 Blood Pressure 1: 120/76 Code : 8480-6 BMI: 40.4 Code : 74680-3 Heart Rate 1 : 68 bpm Height: 5'6" SpO2: 97% Weight: 250 lbs 09/27/2015 Blood Pressure 1: 112/70 Code : 8480-6 BMI: 38.4 Code : 24057-5 Heart Rate 1 : 76 bpm Height: 5'6" SpO2: 98% Weight: 238 lbs 08/30/2015 Blood Pressure 1: 144/82 Code : 8480-6 BMI: 39.5 Code : 69148-0 Heart Rate 1 : 82 bpm Height: 5'6" SpO2: 97% Weight: 245 lbs 08/16/2015 Blood Pressure 1: 140/72 Code : 8480-6 BMI: 38.9 Code : 45557-3 Heart Rate 1 : 72 bpm Height: 5'6" SpO2: 97% Weight: 241 lbs 07/15/2015 Blood Pressure 1: 128/80 Code : 8480-6 BMI: 39.3 Code : 16052-0 Heart Rate 1 : 86 bpm Height: 5'6" SpO2: 98% Weight: 243 lbs 8 oz 06/16/2015 Blood Pressure 1: 146/86 Code : 8480-6 BMI: 39.6 Code : 76046-1 Heart Rate 1 : 76 bpm Height: 5'6" SpO2: 97% Weight: 245 lbs 8 oz 04/02/2015 Blood Pressure 1: 132/86 Code : 8480-6 BMI: 40.7 Code : 07760-7 Heart Rate 1 : 94 bpm Height: 5'6" SpO2: 98% Weight: 252 lbs 12/02/2014 Blood Pressure 1: 122/90 Code : 8480-6 BMI: 41.6 Code : 49335-7 Heart Rate 1 : 77 bpm Height: [...] G47.09] [facility] CPT-4 : 78359 06/19/2018 77528 EST. PATIENT, LEVEL IV Diagnosis: Right upper quadrant pain[ICD10: R10.11] Diagnosis: Other chest pain[ICD10: R07.89] [facility] CPT-4 : 56877 04/24/2018 87839 EST. PATIENT, LEVEL III Diagnosis: Generalized anxiety disorder[ICD10: F41.1] Diagnosis: Major depressive disorder, recurrent, mild[ICD10: F33.0] Diagnosis: Essential (primary) hypertension[ICD10: I10] Diagnosis: Type 2 diabetes mellitus without complications[ICD10: E11.9] [facility] CPT-4: 79217 04/17/2018 67841 EST. PATIENT, LEVEL III Diagnosis: Localized edema[ICD10: R60.0] Diagnosis: Essential (primary) hypertension[ICD10: I10] Petra Trejo MD, [facility] CPT-4: 68617 03/14/2018 46729 EST. PATIENT, LEVEL III Diagnosis: Pain in left knee[ICD10: M25.562] Diagnosis: Other obesity due to excess calories[ICD10: E66.09] Diagnosis: Other insomnia[ICD10: G47.09] Diagnosis: Generalized anxiety disorder[ICD10: F41.1] Petra Trejo MD, [facility] CPT-4: 39390 02/27/2018 ([id number]) Miscellaneous no charge Diagnosis: Other obesity due to excess calories[ICD10: E66.09] Heidy Trejo MD, [facility] CPT-4: 59842 12/19/2017 13592 EST. PATIENT, LEVEL III Diagnosis: Pain in right foot[ICD10: M79.671] Diagnosis: Pain in right ankle and joints of right foot[ICD10: M25.571] Petra Trejo MD , [facility] CPT-4: 22851 12/04/2017 07191 EST. PATIENT, LEVEL III Diagnosis: Pain in left knee[ICD10: M25.562] Diagnosis: Type 2 diabetes mellitus without complications[ICD10: E11.9] Diagnosis: Other obesity due to excess calories[ICD10: E66.09] Petra Trejo MD, [facility] CPT-4: 76113 11/20/2017 61736 EST. PATIENT, LEVEL III Diagnosis: Pain in left knee[ICD10: M25.562] Petra Trejo MD, [facility] CPT -4: 57271 09/10/2017 79764 EST. PATIENT, LEVEL III Diagnosis: Encounter for follow-up examination after completed treatment for conditions other than malignant neoplasm[ICD10: Z09] Diagnosis: Pain in left knee[ICD10: M25.562] Petra Trejo MD, [facility] CPT -4: 77293 08/14/2017 02355 EST. PATIENT, LEVEL III Diagnosis: Pain in left knee[ICD10: M25.562] Petra Treoj MD, [facility] CPT -4: 43783 07/31/2017 36623 EST. PATIENT, LEVEL III Diagnosis: Acute laryngopharyngitis[ICD10: J06.0] Diagnosis: Other allergic rhinitis[ICD10: J30.89] Petra Trejo MD, [facility] CPT-4: 58966 06/27/2017 26867 EST. PATIENT, LEVEL III Diagnosis: Ganglion, left hand[ICD10: M67.442] Diagnosis: Essential (primary) hypertension[ICD10: I10] Diagnosis: Generalized anxiety disorder[ICD10: F41.1] Diagnosis: Other insomnia[ICD10: G47.09] Petra Trejo MD, [facility] CPT-4 : 45775 05/29/2017 60063 EST. PATIENT, LEVEL III Diagnosis: Essential (primary) hypertension[ICD10: I10] Diagnosis: Palpitations[ICD10: R00.2] Diagnosis: Generalized anxiety disorder[ICD10: F41.1] Petra Trejo MD, [facility] CPT-4: 16039 05/21/2017 84314 EST. PATIENT, LEVEL III Diagnosis: Pain in right foot[ICD10: M79.671] Petra Trejo MD, [facility] CPT-4: 41048 04/20/2017 38897 EST. PATIENT, LEVEL IV Diagnosis: Other insomnia[ICD10: G47.09] Diagnosis: Other skin changes[ICD10: R23.8] Petra Trejo MD, [facility] CPT- 4: 52483 01/26/2017 88319 EST. PATIENT, LEVEL IV Diagnosis: Acute bronchitis due to other specified organisms[ICD10: J20.8] Petra Trejo MD, [facility] CPT-4: 75228 01/11/2017 ([id number]) 19331 EST. PATIENT, LEVEL IV Diagnosis: Essential (primary) hypertension[ICD10: I10] Diagnosis: Other insomnia[ICD10: G47.09] Diagnosis: Primary generalized (osteo)arthritis[ICD10: M15.0] Diagnosis: Other obesity due to excess calories[ICD10: E66.09] Claudette Trejo MD, [facility] CPT-4: 86433 11/30/2016 ([id number]) 58389 EST. PATIENT, LEVEL III Diagnosis: Other obesity due to excess calories[ICD10: E66.09] Diagnosis: Other insomnia[ICD10: G47.09] Diagnosis: Generalized anxiety disorder[ICD10: F41.1] Claudette Trejo MD, [facility] CPT-4: 74169 09/28/2016 ([id number]) 87611 EST. PATIENT, LEVEL IV Diagnosis: Generalized anxiety disorder[ICD10: F41.1] Diagnosis: Major depressive disorder, recurrent, mild[ICD10: F33.0] Diagnosis: Other obesity due to excess calories[ICD10: E66.09] Diagnosis: Other insomnia[ICD10: G47.09] Claudette Trejo MD, [facility] CPT-4: 20217 08/24/2016 ([id number]) 37435 EST. PATIENT, LEVEL III Diagnosis: Other obesity due to excess calories[ICD10: E66.09] Diagnosis: Major depressive disorder, recurrent, moderate[ICD10: F33.1] Diagnosis: Low back pain[ICD10: M54.5] Heidy Trejo MD, [facility] CPT- 4: 43347 07/13/2016 39935 EST. PATIENT, LEVEL IV Diagnosis: Other muscle spasm[ICD10: M62.838] Diagnosis: Generalized anxiety disorder[ICD10: F41.1] Diagnosis: Major depressive disorder, recurrent, moderate[ICD10: F33.1] Diagnosis: Other insomnia[ICD10: G47.09] Petra Trejo MD, [facility] CPT-4 : 26282 05/19/2016 ([id number]) 29223 EST. PATIENT, LEVEL III Diagnosis: Generalized anxiety disorder[ICD10: F41.1] Diagnosis: Major depressive disorder, recurrent, moderate[ICD10: F33.1] Heidy Trejo MD, [facility] CPT-4: 78842 03/16/2016 ([id number]) 34120 EST. PATIENT, LEVEL III Diagnosis: Streptococcal pharyngitis[ICD10: J02.0] Claudette Trejo MD, [facility] CPT-4: 91597 02/28/2016 ([id number]) 67108 EST. PATIENT, LEVEL III Diagnosis: Generalized anxiety disorder[ICD10: F41.1] Diagnosis: Other obesity due to excess calories[ICD10: E66.09] Heidy Trejo MD, [facility] CPT-4: 73060 01/13/2016 ([id number]) 88503 EST. PATIENT, LEVEL III Diagnosis: Generalized anxiety disorder[ICD10: F41.1] Diagnosis: Major depressive disorder, recurrent, unspecified[ICD10: F33.9] Heidy Trejo MD, [facility] CPT-4: 16857 09/27/2015 75526 EST. PATIENT, LEVEL IV Diagnosis: Chronic pain syndrome[ICD10: G89.4] Diagnosis: Other obesity due to excess calories[ICD10: E66.09] Diagnosis: Essential (primary) hypertension[ICD10: I10] Diagnosis: Generalized anxiety disorder[ICD10: F41.1] Diagnosis: Excessive and frequent menstruation with regular cycle[ICD10: N92.0] Diagnosis: Pain in right knee[ICD10: M25.561] Petra Trejo MD, [facility] CPT-4: 36088 08/30/2015 92172 EST. PATIENT, LEVEL IV Diagnosis: Palpitations[ICD10: R00.2] Diagnosis: Other obesity due to excess calories[ICD10: E66.09] Petra Trejo MD, [facility] CPT-4: 57956 08/16/2015 ([id number]) 34614 EST. PATIENT, LEVEL IV Diagnosis: Pain in right knee[ICD10: M25.561] Diagnosis: Primary generalized (osteo)arthritis[ICD10: M15.0] Diagnosis: Acute maxillary sinusitis, unspecified[ICD10: J01.00] Heidy Trejo MD, [facility] CPT-4: 74264 07/15/2015 ([id number]) 21323 EST. PATIENT, LEVEL IV Diagnosis: Primary generalized (osteo)arthritis[ICD10: M15.0] Diagnosis: Restless legs syndrome[ICD10: G25.81] Diagnosis: Chronic pain syndrome[ICD10: G89.4] Heidy Trejo MD, [facility] CPT-4: 54764 06/16/2015 ([id number]) 17334 EST. PATIENT, LEVEL III Diagnosis: Primary generalized (osteo)arthritis[ICD10: M15.0] Diagnosis: Varicose veins of bilateral lower extremities with pain[ICD10: I83.813] [facility] CPT-4: 30712 ([id number]) OFFICE VISIT, NEW - LEVEL 3 Diagnosis: Osteoarthritis[ICD9: 715.90] Diagnosis: ABNORMAL WEIGHT GAIN[ICD9: 783.1] Diagnosis: Superficial thrombophlebitis[ICD9: 451.9] Carey Trejo MD, [facility] CPT-4: 81757 12/02/2014 Plan of Care Planned Activity Notes [...] this patient. 06/19/2018 Appointment: [facility] [place] ([facility] min) Moderate 06/19/2018 [...] she is to follow up with her viscera washer 04/24/2018 Appointment: Petra Rivas WPtel: [facility] [place] (30 min) Complex 04/24/2018 Patient Education: [...] control. 04/17/2018 Appointment: [phone] (15 min) Moderate 04/17/2018 Patient [...] edema. 03/14/2018 Appointment: Petra Rivas WPtel: [phone] [facility] [place] (15 min) Moderate 03/14/2018 Patient Education: Patient [...] to ortho 02/27/2018 Appointment: [facility]el[phone] [facility] [place] (30 min) Complex 02/27/2018 Patient Education: Patient [...] improve. 12/04/2017 Appointment: [facility]el[phone] [facility] [place] (15 min) Moderate 12/04/2017 Patient Education: [...] greater blood glucose control. 11/20/2017 Appointment: Petra Rivastel: [phone] [facility] [place] (15 min) Moderate 11/20/2017 Patient Education: [...] not improve. 09/10/2017 Appointment: Pet[facility] Rivas WPtel: [facility] [place] (15 min) Moderate 09/10/2017 Patient Education: [...] or does not improve. 08/14/2017 Appointment: [facility]astel[phone] [facility] [place] (30 min) Complex 08/14/2017 Patient Education: Patient Medication Summary Completed 08/14/2017 Appointment: Petra Rivas WPtel: [phone] [facility] [place] (15 min) Moderate 08/01/2017 Visit Plan: Knee pain - pt is to use RICE - Rest, Ice, Compression, Elevation - pt is to use crutches as directed - The pt is to use prn antiinflammatories to manage acute pain. The patient is to call the office if the pain is worsening or does not improve. 07/31/2017 Appointment: Petra Rivas WPtel: [address] [place], [place] [address] (30 min) Complex 07/31/2017 Patient Education: Patient Medication Summary Completed 07/31/2017 Care Plan: X-RAY EXAM OF KNEE 3 LOINC : 22379-5 Pending 07/31/2017 Visit Plan: URI - Pt [...] the nasal steroid allergy spray. 06/27/2017 Appointment: Ptera Rivas WPtel: [address] [place], [place] [address] (15 min) Moderate 06/27/2017 Patient Education: Patient Medication Summary Completed 06/27/2017 Referral: Jignesh Quinn [facility] Patient informed. Referral info faxed. [...] Dr. Quinn 05/29/2017 Appointment: Petra Rivas WPtel: [phone] [facility] [place] (15 min) Moderate 05/29/2017 Patient Education: Patient Medication Summary Completed 05/29/2017 Care Plan: Referral Order SNOMED-CT : 441789952 Pending 05/29/2017 Appointment: Petra Rivas WPtel: [phone] [facility] [place] (15 min) Moderate 05/28/2017 Visit Plan: [...] acute concerns. 05/21/2017 Appointment: [facility]el[phone] [facility] [place] (15 min) Moderate 05/21/2017 Patient Education: Patient Medication Summary Completed 05/21/2017 Visit Plan: Right heel pain - will send RX, pt is to do stretches as directed - The pt is to use prn antiinflammatories to manage acute pain. The patient is to call the office if the pain is worsening or does not improve. 04/20/2017 Appointment: [facility] Rivas WPtel: [facility] (30 min) Complex 04/20/2017 Patient Education: Patient Medication Summary Completed 04/20/2017 Appointment: Petra Rivas WPtel: [phone] [facility] (30 min) Complex 03/29/2017 Patient Education: Patient Medication Summary Completed 03/16/2017 Referral: Maycol Quijano Referral Initiated 02/08/2017 Care Plan: Referral Order SNOMED-CT : [id number] Pending 01/28/2017 Visit Plan: Insomnia - Pt [...] or concerns. 01/26/2017 Appointment: Petra Rivas WPtel: [facility] (30 min) Complex 01/26/2017 Patient Education: Patient [...] worsen. 01/11/2017 Appointment: Pet[facility] Rivas WPtel: [facility] (15 min) Moderate 01/11/2017 Patient [...] on use. 11/30/2016 Appointment: Claudette Savage WPtel: [phone] (15 min) Moderate 11/30/2016 Patient Education: Patient Medication Summary Completed 11/30/2016 Patient Education: Obesity Completed 11/30/2016 Care Plan: BMI Above normal followup SELF-MGMT EDUC & TRAIN 1 PT Pending 2016 Visit Plan: Fhksjtu-sisohxbutm-lwxwzzko with increase in cymbalta-no changes Insomnia-RX for belsomra provided and instructed on use Obesity-patient down 15#-no changes-continue diet/exercise-follow up in 2 months 09/28/2016 Appointment: Claudette Savage WPtel: [facility] [address] (15 min) Moderate 09/28/2016 Patient Education: Patient Medication Summary Completed 09/28/2016 Patient Education: Obesity Completed 09/28/2016 Care Plan: BMI Above normal followup SELF-MGMT EDUC & TRAIN 1 PT Pending 2016 Visit Plan: Obwoawy-aiaejrtrvt-escjfvip-increase cymbalta to 60mg daily. Increase xanax as [...] for insomnia/anxiety 08/24/2016 Appointment: Claudette Savage WPtel: [phone] (15 min) Moderate 08/24/2016 Patient Education: Patient [...] not improving. 07/13/2016 [facility]ment: [facility] ([facility] Moderate 07/13/2016 Patient Education: Patient [...] time insomnia. 05/19/2016 Appointment: [facility]Ptel[phone] [facility] (30 min) Complex 05/19/2016 Patient [...] patient. 03/16/2016 [facility]ment: [phone] ([facility] min) Moderate 03/16/2016 Patient Education: Patient [...] swab. 02/28/2016 Appointment: Claudette Savage [facility]Ptel[phone] [place] (10 min) Simple 02/28/2016 Patient Education: [...] lexapro 01/13/2016 [facility]ment: [phone] ([facility] min) Moderate 01/13/2016 Patient Education: Patient [...] 09/27/2015 Care Plan: Referral Order SNOMED-CT : [id number] Pending 08/31/2015 Visit Plan: Anxiety - the [...] show improvement. 07/15/2015 Appointment: Heidy Trejo WPtel: [address] [place], [place] [address] (15 min) Moderate 07/15/2015 Patient Education: Patient [...] clinic 04/02/2015 Appointment: Claudette Savage WPtel: [phone] [phone] [place] (15 min) Moderate 04/02/2015 Patient Education: [...] Completed 12/02/2014 Referral: Belle Hoffman WPtel: [phone] [phone] they will call and set the appt with her Initiated Referral: Maycol Quijano Referral Initiated Referral: Belle Hoffman WPtel: [phone] [facility] Referral Initiated Referral: Jignesh Quinn [facility] [place] Referral Initiated Instructions Comment . Hypertension [...] celebrex provided and instructed on use. . Palpitations - likely anxiety - will [...] is to call for acute concerns. . Muscle spasms - Will check labs, [...] allow for greater blood glucose control. . Hypertension - uncontrolled - the patient's [...] further attempt to reduce peripheral edema. . Arthritis- occasionally uncontrolled symptoms- recommend pt [...] Use tylenol for break through pain symptoms. contrave website contrave 1 pill nightly x [...] to 2 pills twice daily. stop lexapro CALL ME IN 1 MONTH AND LET [...] Varicose veins-patient getting treatment at vein clinic pramipexole - 0.5mg - take at bedtime [...] hysterectomy - will refer to Dr. Hoffman Breathing treatments 3 times a day x [...] improved, or if symptoms acutely worsen. . Left knee pain - ongoing - [...] 1 mg at night for anxiety . Xryemwl-fbnkxcviou-ohjvxeyj-increase cymbalta to 60mg daily. Increase xanax as [...] she is to follow up with her viscera washer glucosamine and chondroiton - joint ease, joint [...] CMP, Fasting lipid profile and TSH. . Arthritis- occasionally uncontrolled symptoms- recommend pt to take antiinflammatory as directed for pain control. Use tylenol for break through pain symptoms. Sinusitis - Pt has acute infection - pain in face, maxillary region, Pt informed to use decongestant, RX given to patient, sinus rinses also recommended. Call if symptoms do not show improvement. cymbalta 60mg x 3 days, then cymbalta [...] appropriately prescribed for this patient. BELSOMRA . Bypzegb-eyayowmkje-pxeiqqeb with increase in cymbalta-no changes Insomnia-RX for [...] any changes , questions, or concerns. . URI - Pt advised to increase [...] spray in the nasal steroid allergy spray. Breathing treatments 3 times a day x [...] is worsening or does not improve. . Hospital follow up - This was [...]
[2018-07-24 23:09] LABS: BASOPHILS % (AUTO) 0 % (0-10); EOSINOPHILS % (AUTO) 0 % (0-10); HEMATOCRIT 42 % (35-52); LYMPHOCYTES # (AUTO) 2.4 X 10^3 (1.0-4.0); LYMPHOCYTES % (AUTO) 15 % (12-44); MEAN CORPUSCULAR HEMOGLOBIN 29 PG (25-34); MEAN CORPUSCULAR HGB CONC 33 G/DL (32-36); MEAN CORPUSCULAR VOLUME 87 FL (80-99); MEAN PLATELET VOLUME 9.5 FL (7.4-10.4); MONOCYTES # (AUTO) 0.6 X 10^3 (0.0-1.0); MONOCYTES % (AUTO) 4 % (0-12); NEUTROPHILS # (AUTO) 12.6 X 10^3 (1.8-7.8); NEUTROPHILS % (AUTO) 81 % (42-75); PLATELET COUNT 349 10^3/uL (130-400); RED CELL DISTRIBUTION WIDTH 13.4 % (10.0-14.5); WHITE BLOOD COUNT 15.6 10^3/uL (4.3-11.0)
--- NOTE | 2018-07-24 23:11 | ED Chest Pain ---
General Chief Complaint: Chest Pain Stated Complaint: CHEST PAIN Source: patient Exam Limitations: no limitations History of Present Illness Date Seen by Provider: Jul 24, 2018 Time Seen by Provider: 22:59 Initial Comments Patient presents to ER by private conveyance with chief complaint of a chest pain starts in her right chest shoots up to her right shoulder down to her right abdomen and to her back. this pain is been going on for over a month now however for the past several days it has been constant. Before it was intermittent worse after eating meals. She is not sure that there is any relationship to food. She was worked up previously in the ER and get a hospital stay for chest pain rule out cardiac cause and after that was done she went back to her primary care doctor who ordered an ultrasound of her gallbladder and found that it was full of stones. She has no fevers or chills. She is not nauseated presently. She does have nausea sometimes. Bowels are normal. She feels that she has bloated, swollen around the middle which is unusual for her. She does not feel she has necessarily any extra fluid around her hands or feet. She's been using Lasix for the past 5 days as well as she finished a 5 day course of Tamiflu for influenza and a steroid. She does have a nonproductive cough she says. She denies a history of thyroid disorder or high blood pressure but she has hydrochlorothiazide in her bag of pills. Patient says she has no personal history of coronary disease but several of her family members have had heart attacks before the age of 60. None before the age of 50. She does not smoke but she uses a electronic cigarette. Allergies and Home Medications Allergies Coded Allergies: Penicillins (Verified Allergy, Unknown, 08/07/17) Home Medications Aspirin 325 Mg Tablet.dr, 325 MG PO DAILY Prescribed by: ELMA STEPHENS on 08/08/17 0846 Atorvastatin Calcium 20 Mg Tablet, 20 MG PO DAILY Prescribed by: ELMA STEPHENS on 08/08/17 0846 Liraglutide 0.6 Mg/0.1 Ml Pen.injctr, 1.8 MG SQ HS, (Reported) Patient Home Medication List Home Medication List Reviewed: Yes Review of Systems Review of Systems Constitutional: No chills, No malaise EENTM: No Nose Pain, No Throat Pain Respiratory: Denies Cough, Denies Orthopnea, Denies Shortness of Air Cardiovascular: See HPI, Chest Pain, Edema; Denies Irregular Heart Rate, Denies Lightheadedness, Denies Palpitations, Denies Syncope Gastrointestinal: Abdomen Distended, Abdominal Pain; Denies Constipated, Denies Diarrhea; Nausea; Denies Vomiting Genitourinary: Denies Burning, Denies Discharge Musculoskeletal: No back pain, No joint pain Skin: No pruritus, No rash Psychiatric/Neurological: Denies Headache, Denies Numbness, Denies Paresthesia Past [id number]-[id number] Hx Patient Social History Alcohol Use: Denies Use Recreational Drug Use: No Smoking Status: Former Smoker Type Used: Electronic/Vapor Former Smoker, Quit: May 14, 2013 Recent Foreign Travel: No Contact w/Someone Who Travel: No Recent Hopitalizations: No Immunizations Up To Date Date of Pneumonia Vaccine: Feb 28, 2017 Date of Influenza Vaccine: Feb 28, 2017 Seasonal Allergies Seasonal Allergies: Yes Past Medical History Surgeries: Yes (ORTHO SX'S MULTIPLE) Hysterectomy Respiratory: Yes Asthma Cardiac: Yes (stress induced palpitations) Palpitations Neurological: Yes Headaches /Migraines Reproductive Disorders: No Female Reproductive Disorders: Menstrual Problems Sexually Transmitted Disease: No HIV/AIDS: No Genitourinary: No Gastrointestinal: No Musculoskeletal: Yes Degenerate Disk Disease, Arthritis, Chronic Back Pain Endocrine: No HEENT: No Loss of Vision: Bilateral Hearing Impairment: Denies Cancer: No Psychosocial: Yes Anxiety Integumentary: Yes (skin lesion) Blood Disorders: No Adverse Reaction/Blood Tranf: No (N/A) Family Medical History ANEURYSM 19 MOTHER Coronary thrombosis 19 FATHER Diabetes mellitus 19 FATHER HEART ATTACK 19 FATHER 19 MOTHER Hypertension 19 FATHER 19 MOTHER Parkinson's disease 19 FATHER Heart Disease, CAD Under 55 Years Old, Diabetes, Hypertension, Vascular Disease Physical Exam Vital Signs Vital Signs - First Documented 07/24/18 23:18 O2 Flow Rate 2.00 Capillary Refill : Height, Weight, BMI Height: 5'6.00" Weight: 251lbs. 2.0oz. [id number]; 40.5 BMI Method:Stated General Appearance: No Apparent Distress, WD/WN HEENT: PERRL/EOMI, Pharynx Normal, Moist Mucous Membranes Neck: Full Range of Motion, Non Tender, Supple Respiratory: Chest Non Tender, Lungs Clear, Normal Breath Sounds, No Accessory Muscle Use, No Respiratory Distress Cardiovascular: Regular Rate, Rhythm, No Edema, Normal Peripheral Pulses Gastrointestinal: Normal Bowel Sounds, No Organomegaly, Soft, Distended (mild) , Tenderness (right upper quadrant and epigastric region) Extremity: Normal Capillary Refill, Non Tender, Pedal Edema (Trace bilateral) Neurologic/Psychiatric: Alert, Oriented x3, No Motor/Sensory Deficits Progress/Results/Core Measures Results/Orders Lab Results Laboratory Tests Test 07/24/18 22:50 07/24/18 23:55 Range/Units White Blood Count 15.6 H 4.3-11.0 10^3/uL Red Blood Count 4.86 4.35-5.85 10^6/uL Hemoglobin 14.0 11.5-16.0 G/DL Hematocrit 42 35-52 % Mean Corpuscular Volume 87 80-99 FL Mean Corpuscular Hemoglobin 29 25-34 PG Mean Corpuscular Hemoglobin Concent 33 32-36 G/DL Red Cell Distribution Width 13.4 10.0-14.5 % Platelet Count 349 130-400 10^3/uL Mean Platelet Volume 9.5 7.4-10.4 FL Neutrophils (%) (Auto) 81 H 42-75 % Lymphocytes (%) (Auto) 15 12-44 % Monocytes (%) (Auto) 4 0-12 % Eosinophils (%) (Auto) 0 0-10 % Basophils (%) (Auto) 0 0-10 % Neutrophils # (Auto) 12.6 H 1.8-7.8 X 10^3 Lymphocytes # (Auto) 2.4 1.0-4.0 X 10^3 Monocytes # (Auto) 0.6 0.0-1.0 X 10^3 Eosinophils # (Auto) 0.0 0.0-0.3 10^3/uL Basophils # (Auto) 0.0 0.0-0.1 10^3/uL Neutrophils % (Manual) 78 % Lymphocytes % (Manual) 20 % Monocytes % (Manual) 2 % Eosinophils % (Manual) 0 % Basophils % (Manual) 0 % Band Neutrophils 0 % Blood Morphology Comment NORMAL Prothrombin Time 11.3 L 12.2-14.7 SEC INR Comment 0.8 0.8-1.4 Activated Partial Thromboplast Time 25 24-35 SEC Sodium Level 137 135-145 MMOL/L Potassium Level 4.2 3.6-5.0 MMOL/L Chloride Level 100 98-107 MMOL/L Carbon Dioxide Level 24 21-32 MMOL/L Anion Gap 13 5-14 MMOL/L Blood Urea Nitrogen 24 H 7-18 MG/DL Creatinine 0.90 0.60-1.30 MG/DL Estimat Glomerular Filtration Rate > 60 BUN/Creatinine Ratio 27 Glucose Level 405 *H 70-105 MG/DL Calcium Level 9.6 8.5-10.1 MG/DL Corrected Calcium 9.6 8.5-10.1 MG/DL Magnesium Level 2.2 1.8-2.4 MG/DL Total Bilirubin 0.3 0.1-1.0 MG/DL Aspartate Amino Transf (AST/SGOT) 21 5-34 U/L Alanine Aminotransferase (ALT/SGPT) 29 0-55 U/L Alkaline Phosphatase 179 H 40-136 U/L Myoglobin 15.2 10.0-92.0 NG/ML Troponin I < 0.028 <0.028 NG/ML C-Reactive Protein High Sensitivity 0.09 0.00-0.50 MG/DL B-Type Natriuretic Peptide 14.6 <100.0 PG/ML Total Protein 7.4 6.4-8.2 GM/DL Albumin 4.0 3.2-4.5 GM/DL Lipase 88 H 8-78 U/L Urine Color YELLOW Urine Clarity CLEAR Urine pH 6.5 5-9 Urine Specific [place] 1.010 L 1.016-1.022 Urine Protein NEGATIVE NEGATIVE Urine Glucose (UA) 4+ H NEGATIVE Urine Ketones NEGATIVE NEGATIVE Urine Nitrite NEGATIVE NEGATIVE Urine Bilirubin NEGATIVE NEGATIVE Urine Urobilinogen NORMAL NORMAL MG/DL Urine Leukocyte Esterase NEGATIVE NEGATIVE Urine RBC (Auto) NEGATIVE NEGATIVE Urine RBC NONE /HPF Urine WBC NONE /HPF Urine Squamous Epithelial Cells 2-5 /HPF Urine Crystals NONE /LPF Urine Bacteria TRACE /HPF Urine Casts NONE /LPF Urine Mucus NEGATIVE /LPF Urine Culture Indicated NO My Orders Orders - ANIBAL LEE Ct Abdomen/Pelvis W (07/24/18 23:00) Cbc With Automated Diff (07/24/18 23:00) Magnesium (07/24/18 23:00) Chest 1 View, Ap/Pa Only (07/24/18 23:00) Ekg Tracing (07/24/18 23:00) Cardiac Profile 1 (07/24/18 23:00) Comprehensive Metabolic Panel (07/24/18 23:00) Myoglobin Serum (07/24/18 23:00) Protime With Inr (07/24/18 23:00) Partial Thromboplastin Time (07/24/18 23:00) O2 (07/24/18 23:00) Monitor-Rhythm Ecg Trace Only (07/24/18 23:00) Lipid Panel (07/25/18 06:00) Aspirin Chewable Tablet (Baby Aspirin Ch (07/24/18 23:00) Nitroglycerin 0.4 Mg Btl 25's (Nitrostat (07/24/18 23:00) Saline Lock/Iv-Start (07/24/18 23:00) Lipase (07/24/18:00) BNP (07/24/18:00) Hs C Reactive Protein (07/24/18:00) Ua Culture If Indicated (07/24/18 23:00) Manual Differential (07/24/18 22:50) Lidocaine 2% Viscous 15 Ml (Xylocaine Vi (07/24/18 23:30) Famotidine Tablet (Pepcid Tablet) (07/24/18 23:26) Antacid Suspension (Mylanta Suspension (07/24/18 23:30) Iohexol Injection (Omnipaque 350 Mg/Ml 1 (07/24/18 23:45) Ns (Ivpb) (Sodium Chloride 0.9% Ivpb Bag (07/24/18 23:45) Insulin (Regular) Human (Humulin R (Per (07/25/18 00:00) Medications Given in ED Current Medications Medications Dose Ordered Sig/Mk Route Start Time Stop Time Status Last Admin Dose Admin Al Hydrox/Mg Hydrox/Simethicone 30 ml ONCE ONCE PO 07/24/18 23:30 07/24/18 23:31 DC 07/24/18 23:34 30 ML Aspirin 324 mg ONCE ONCE PO 07/24/18 23:00 07/24/18 23:04 DC 07/24/18 23:12 324 MG Insulin Human Regular 15 unit ONCE ONCE SC 07/25/18 00:00 07/25/18 00:01 DC 07/25/18 00:01 15 UNIT Iohexol 100 ml ONCE ONCE IV 07/24/18 23:45 07/25/18 00:09 DC 07/24/18 23:46 100 ML Lidocaine HCl 15 ml ONCE ONCE PO 07/24/18 23:30 07/24/18 23:31 DC 07/24/18 23:34 15 ML Nitroglycerin 0.4 mg UD PRN SL 07/24/18 23:00 07/24/18 23:21 DC 07/24/18 23:21 0.4 MG Sodium Chloride 80 ml ONCE ONCE IV 07/24/18 23:45 07/25/18 00:09 DC 07/24/18 23:46 80 ML Vital Signs/I&O 07/24/18 07/24/18 07/24/18 07/24/18 22:45 22:45 22:45 23:18 Temp 98.1 Pulse 84 Resp 18 B/P (MAP) 163/94 (117) Pulse Ox 95 95 95 O2 Delivery Room Air Room Air Room Air Nasal Cannula O2 Flow Rate 2.00 Progress Progress Note #1: Time: 23:13 Progress Note NG, aspirin and if it doesn't improve her symptoms then we are going to give a GI cocktail. This sounds more like it's her gallbladder and she has known cholelithiasis per her report. However there are some cardiac risk factors. EKG was unremarkable. ED ACS 11 points. Low risk by the EDACS Score. If the patient also has: (1) EKG without new ischemic changes and (2) negative initial and 2-hour troponins, then this patient is safe for discharge to early outpatient follow-up investigation (or proceed to earlier inpatient testing). If EKG with ischemic changes or positive troponin, they are not low risk and require normal risk stratification. Progress Note #2: Time: 01:23 Progress Note Patient's been having the same pain which sounds like biliary colic for the past several weeks. Now it is constant for the past several days. Her troponin would be elevated by now if this was cardiac in nature. The nitroglycerin did not help her pain. Her modest elevation of white count is probably reflective of her recent use of steroids outpatient for her influenza. I have discussed the possibility of staying on observation but then she has already got an appointment at 2:00 today with the surgeon this would probably be the more expeditious route. Vital signs remain aseptic. Initial ECG Impression Date: Jul 24, 2018 Initial ECG Impression Time: 22:49 Initial ECG Rate: 82 Initial ECG Rhythm: Normal Sinus Initial ECG Intervals: Normal Initial ECG Impression: Normal, Nonspecific Changes Initial ECG Comparisson: Unchanged Comment Stable appearance from last year. No ST elevation or depression. Diagnostic Imaging Diagonstic Imaging: Xray Plain Films/CT/US/NM/MRI: chest (1v) Comments No acute cardio pulmonary processes noted on one view chest x-ray. Reviewed: Reviewed by Me Diagonstic Imaging: CT (with contrast) Plain Films/CT/US/NM/MRI: abdomen, pelvis Comments Fat-containing umbilical region ventral hernia. Fatty infiltration of liver. Nonobstructing left nephrolithiasis. Small right adrenal adenoma measuring 9 x 12 mm. Reviewed: Reviewed [place] Study, Reviewed by Me Departure Impression Primary Impression: Recurrent biliary colic Additional Impressions: Hyperglycemia Gastritis Qualified Codes: K29.00 - Acute gastritis without bleeding Disposition: HOME, SELF-CARE Condition: Stable Departure-Patient Inst. Decision time for Depature: 01:23 Referrals: ELMA STEPHENS MD (PCP/Family) Primary Care Physician Patient Instructions: Gallstones (DC) Add. Discharge Instructions: Avoid spicy, greasy foods. Follow up today with the surgeon. Make an appointment to follow-up with primary care to discuss your high blood sugar. Use the Carafate 30 minutes prior to meals and at bedtime. Return to the ER if you have intractable nausea, vomiting, abdominal pain or fevers. All discharge instructions reviewed with patient and/or family. Voiced understanding. Scripts Sucralfate (Carafate) 1 Gm Tablet 1 GM PO QIDACHS for 14 Days, #56 TAB 0 Refills Prov: ANIBAL LEE 07/25/18 ANIBAL LEE Jul 24, 2018 23:11
--- OUTSIDE RECORDS SUMMARY | 2018-07-24 23:11 | XMS REPORT | CCD ---
Author Author [place] Organization [facility] Address [address] [place] [address] Phone Care Team Providers Care Support Assistant Name Role Phone PP Unavailable CCM Unavailable Summary Purpose Interface Exchange Insurance Providers Payer name Policy type / Coverage type Covered alliance party ID Effective Begin Date Effective End Date [facility] Commercial Insurance [id number] Unknown Family history Brother Diagnosis Age At [...] Description Effective Dates Tobacco history SNOMED CT: 8026662 Quit less than 5 years ago 04/02/2015 Alcohol history Unknown occasionally drinks alcohol 04/02/2015 Marital status Unknown Manuel Vitale 12/02/2014 Number of children Unknown 3 12/02/2014 Allergies, Adverse Reactions, Alerts Substance Reaction Codes Entered Date Inactivated Date Status * NO KNOWN FOOD ALLERGIES Unknown 12/02/2014 No Inactive Date Active Penicillin Unknown 12/02/2014 No Inactive Date Active tramadol RxNorm: 54894 12/02/2014 No Inactive Date Active Past Medical [...] Start Date Stop Date Status Fill Instructions Remeron 15 mg tablet RxNorm: 452146 /2 Tablet(s) PO QHS 201807/19/2018 Active Lasix 20 mg tablet RxNorm: 192957 1 Tablet(s) PO daily 201806/21/2018 Inactive potassium chloride ER 10 mEq tablet,extended release RxNorm: 827115 1 Tablet(s) PO daily 06/19/2018 No Stop Date Active Lexapro 20 mg tablet RxNorm: 679386 1 Tablet(s) PO daily 201807/18/2018 Active gabapentin 300 mg capsule RxNorm: 849767 1 CAPSULE(S) PO TID 08/12/2018 Active Ambien 10 mg tablet RxNorm: 508451 1 Tablet(s) PO QHS as needed insomnia 06/10/2018 09/07/2018 Active Cymbalta 30 mg capsule,delayed release RxNorm: 246996 1 Capsule(s) PO daily to be taken with 60mg to=90mg 06/03/20182018 Active Cymbalta 30 mg capsule,delayed release RxNorm: 108916 1 Capsule(s) PO daily 06/03/2018 06/02/2018 Inactive Protonix 40 mg tablet,delayed release RxNorm: 651206 1 TABLET(S) PO DAILY 05/20/2018 09/16/2018 Active gabapentin 300 mg capsule RxNorm: 341642 1 CAPSULE(S) PO TID 06/13/2018 Inactive Protonix 40 mg tablet,delayed release RxNorm: 800165 1 Tablet(s) PO daily 04/24/2018 05/19/2018 Inactive Zorvolex 35 mg capsule RxNorm: 2610083 TAKE 1 CAPSULE BY MOUTH THREE (3) TIMES DAILY 04/22/2018 08/19/2018 Active hydrochlorothiazide 25 mg tablet RxNorm: 709270 1 TABLET(S) PO DAILY 04/08/2018 07/06/2018 Active Zorvolex 35 mg capsule RxNorm: 6308655 TAKE 1 CAPSULE BY MOUTH THREE (3) TIMES DAILY 03/27/2018 04/21/2018 Inactive gabapentin 300 mg capsule RxNorm: 970907 1 CAPSULE(S) PO TID 04/14/2018 Inactive hydrochlorothiazide 25 mg tablet RxNorm: 572468 1 Tablet(s) PO daily 03/14/2018 04/07/2018 Inactive Cymbalta 60 mg capsule,delayed release RxNorm: 176390 1 Capsule(s) PO daily TAKE 1 CAPSULE BY MOUTH DAILY 02/27/20182019 Active Victoza 2-Marek 0.6 mg/0.1 mL (18 mg/3 mL) subcutaneous pen injector RxNorm: 330996 Milligram(s) INJECT 1.8 MG SUB-Q ONCE DAILY 02/27/2018 08/20/2019 Active qty sufficient Xanax 1 mg tablet RxNorm: 395629 1-2 Tablet(s) PO QHS as needed insomnia 02/27/2018 05/27/2018 Inactive atorvastatin 20 mg tablet RxNorm: 099454 1 Tablet(s) PO daily 02/27/2018 05/22/2019 Active Cymbalta 60 mg capsule,delayed release RxNorm: 158159 TAKE 1 CAPSULE BY MOUTH DAILY 02/27/2018 02/26/2018 Inactive gabapentin 300 mg capsule RxNorm: 542444 1 Capsule(s) PO TID 03/24/2018 Inactive meloxicam 7.5 mg tablet RxNorm: 725213 1 Tablet(s) PO daily 1 TABLET(S) PO DAILY 02/27/2018 04/14/2018 Inactive Ambien 10 mg tablet RxNorm: 938848 1 Tablet(s) PO QHS as needed insomnia 02/27/2018 05/25/2018 Inactive atorvastatin 20 mg tablet RxNorm: 564093 1 Tablet(s) PO daily 02/05/2018 02/26/2018 Inactive atorvastatin 20 mg tablet RxNorm: 418099 1 Tablet(s) PO daily 02/05/2018 02/04/2018 Inactive meloxicam 7.5 mg tablet RxNorm: 434189 1 TABLET(S) PO DAILY 02/26/2018 Inactive oxycodone 15 mg tablet RxNorm: 4669982 1 Tablet(s) PO QID as needed 01/07/2018 02/19/2018 Inactive lactulose 20 gram/30 mL oral solution RxNorm: 705464 15-30 Milliliter(s) PO BID as needed 12/31/2017 02/20/2018 Inactive meloxicam 7.5 mg tablet RxNorm: 264304 1 TABLET(S) PO DAILY 06/201701/31/2018 Inactive Zorvolex 35 mg capsule RxNorm: 7187563 1 Capsule(s) PO TID 06/201702/20/2018 Inactive Ambien 10 mg tablet RxNorm: 980099 1 Tablet(s) PO QHS as needed insomnia 12/04/2017 02/26/2018 Inactive oxycodone 15 mg tablet RxNorm: 4945967 1 Tablet(s) PO QID as needed 12/04/2017 01/06/2018 Inactive prednisone 20 mg tablet RxNorm: 567565 2 Tablet(s) PO daily 12/08/2017 Inactive Victoza 2-Marek 0.6 mg/0.1 mL (18 mg/3 mL) subcutaneous pen injector RxNorm: 469035 Milligram(s) INJECT 1.8 MG SUB-Q ONCE DAILY 11/20/2017 02/26/2018 Inactive meloxicam 7.5 mg tablet RxNorm: 994559 1 Tablet(s) PO daily 02/201812/12/2017 Inactive phentermine 37.5 mg tablet RxNorm: 917642 1 Tablet(s) PO daily 11/20/2017 12/19/2017 Inactive Ambien 10 mg tablet RxNorm: 098883 1 Tablet(s) PO QHS as needed insomnia 11/20/2017 12/18/2017 Inactive Xanax 1 mg tablet RxNorm: 697191 1.5 Tablet(s) PO QHS as needed insomnia 11/20/2017 02/26/2018 Inactive hydrocodone 7.5 mg-acetaminophen 325 mg tablet RxNorm: 446335 1 Tablet(s) PO TID as needed 11/16/2017 01/06/2018 Inactive Cymbalta 60 mg capsule,delayed release RxNorm: 308191 TAKE 1 CAPSULE BY MOUTH DAILY 11/02/2017 02/26/2018 Inactive Xanax 1 mg tablet RxNorm: 290007 1 Tablet(s) PO BID PRN as needed anxiety 10/04/2017 11/19/2017 Inactive Victoza 2-Marek 0.6 mg/0.1 mL (18 mg/3 mL) subcutaneous pen injector RxNorm: 359715 INJECT 1.8 MG SUB-Q ONCE DAILY 10/04/2017 11/19/2017 Inactive hydrocodone 7.5 mg-acetaminophen 325 mg tablet RxNorm: 332261 1 Tablet(s) PO TID as needed 09/17/2017 11/15/2017 Inactive hydrocodone 7.5 mg-acetaminophen 325 mg tablet RxNorm: 479056 1 Tablet(s) PO TID as needed 09/10/2017 09/16/2017 Inactive prednisone 10 mg tablet RxNorm: 074328 Tablet(s) PO 09/10/2017 11/13/2017 Inactive 6, 5,4,3,2,1 Zorvolex 35 mg capsule RxNorm: 5826875 1 Capsule(s) PO TID 11/13/2017 Inactive Ambien 10 mg tablet RxNorm: 068380 1 Tablet(s) PO QHS as needed insomnia 08/29/2017 11/19/2017 Inactive Zorvolex 35 mg capsule RxNorm: 8141400 1 Capsule(s) PO TID 09/06/2017 Inactive Zorvolex 35 mg capsule RxNorm: 3243715 1 Capsule(s) PO TID 06/201708/27/2017 Inactive Zorvolex 35 mg capsule RxNorm: 1412283 1 Capsule(s) PO TID 06/201708/12/2017 Inactive prednisone 20 mg tablet RxNorm: 965310 2 Tablet(s) PO daily 08/04/2017 Inactive hydrocodone 7.5 mg-acetaminophen 325 mg tablet RxNorm: 528767 1 Tablet(s) PO TID as needed 07/31/2017 09/09/2017 Inactive Zorvolex 35 mg capsule RxNorm: 8819908 1 Capsule(s) PO TID as needed 07/31/2017 11/13/2017 Inactive ceftriaxone 500 mg solution for injection RxNorm: 9532584 1 Milliliter(s) Inj 06/27/2017 06/27/2017 Inactive Keflex 500 mg capsule RxNorm: 130472 1 Capsule(s) PO TID 201707/03/2017 Inactive Ambien 10 mg tablet RxNorm: 688871 1 Tablet(s) PO daily 201708/25/2017 Inactive tramadol 50 mg tablet RxNorm: 131257 1 Tablet(s) PO TID as needed 05/29/2017 07/27/2017 Inactive Xanax 1 mg tablet RxNorm: 260025 1 Tablet(s) PO BID PRN as needed anxiety 05/21/2017 10/03/2017 Inactive alprazolam 1 mg tablet RxNorm: 019446 1 Tablet(s) PO BID as needed 05/21/2017 06/19/2017 Inactive Celebrex 200 mg capsule RxNorm: 378235 1 CAPSULE(S) PO BID 11/05/2017 Inactive prednisone 20 mg tablet RxNorm: 580669 2 Tablet(s) PO daily 12/201604/24/2017 Inactive Ambien 10 mg tablet RxNorm: 876705 Tablet(s) PO 04/20/2017 05/28/2017 Inactive hydrocodone 5 mg-acetaminophen 325 mg tablet RxNorm: 296739 1 Tablet(s) PO QID as needed 04/20/2017 08/01/2017 Inactive Cymbalta 60 mg capsule,delayed release RxNorm: 860004 1 Capsule(s) PO daily 04/20/2017 02/26/2018 Inactive Victoza 2-Marek 0.6 mg/0.1 mL (18 mg/3 mL) subcutaneous pen injector RxNorm: 015531 INJECT 1.8 MG SUB-Q ONCE DAILY 03/26/2017 09/21/2017 Inactive diazepam 2 mg tablet RxNorm: 281452 1 Tablet(s) PO QHS as needed insomnia 01/28/2017 05/07/2017 Inactive Victoza 2-Marek 0.6 mg/0.1 mL (18 mg/3 mL) subcutaneous pen injector RxNorm: 242929 1.8 Milligram(s) SQ daily 01/26/201703/25 Inactive dispense quantity sufficient Tussionex Pennkinetic ER 10 mg-8 mg/5 mL suspension, extended release RxNorm: 3039446 5 Milliliter(s) PO BID 01/11/2017 01/15/2017 Inactive Xanax 1 mg tablet RxNorm: 090365 1 Tablet(s) PO BID PRN as needed anxiety 01/11/2017 05/20/2017 Inactive Zithromax Z-Marek 250 mg tablet RxNorm: 755082 1 Tablet(s) PO UD 01/11/2017 01/15/2017 Inactive zpack albuterol sulfate 2.5 mg/3 mL (0.083 %) solution for nebulization RxNorm: 502027 3 Milliliter(s) INH UD 01/11/201707/2017 Inactive prednisone 20 mg tablet RxNorm: 879344 2 Tablet(s) PO daily 01/15/2017 Inactive Kenalog 40 mg/mL suspension for injection RxNorm: 0215086 1.5 Milliliter(s) Inj 01/11/2017 01/11/2017 Inactive Celebrex 200 mg capsule RxNorm: 399502 1 Capsule(s) PO BID 02/27/2017 Inactive Ambien 5 mg tablet RxNorm: 580245 1 Tablet(s) PO HS PRN 11/3008/07/2017 Inactive trazodone 50 mg tablet RxNorm: 474190 1/2 to 1 Tablet(s) PO QHS 10/13/2016 10/12/2016 Inactive trazodone 50 mg tablet RxNorm: 576116 1/2 to 1 Tablet(s) PO QHS 10/13/2016 11/29/2016 Inactive Belsomra 10 mg tablet RxNorm: 5480361 1 Tablet(s) PO QHS 201611/29/2016 Inactive may increase to 20mg if 10mg not effective Cymbalta 60 mg capsule,delayed release RxNorm: 501127 1 Capsule(s) PO daily 08/24/2016 03/21/2017 Inactive Xanax 1 mg tablet RxNorm: 565713 1 Tablet(s) PO BID PRN as needed anxiety 08/24/2016 01/10/2017 Inactive Victoza 2-Marek 0.6 mg/0.1 mL (18 mg/3 mL) subcutaneous pen injector RxNorm: 836612 Milligram(s) SQ 08/24/2016 08/23/2016 Inactive Victoza 2-Marek 0.6 mg/0.1 mL (18 mg/3 mL) subcutaneous pen injector RxNorm: 549102 1.8 Milligram(s) SQ 08/24/2016 01/25/2017 Inactive Vitamin D2 50,000 unit capsule RxNorm: 567716 1 Capsule(s) PO QW 07/13/2016 10/10/2016 Inactive Cymbalta 30 mg capsule,delayed release RxNorm: 245230 1 Capsule(s) PO daily 07/13/2016 08/23/2016 Inactive Belviq XR 20 mg tablet,extended release RxNorm: 0573825 1 Tablet(s) PO daily 05/30/2016 05/29/2016 Inactive prednisone 20 mg tablet RxNorm: 861297 2 Tablet(s) PO daily 06/03/2016 Inactive prednisone 20 mg tablet RxNorm: 619253 2 Tablet(s) PO daily 05/29/2016 Inactive Belviq XR 20 mg tablet,extended release RxNorm: 9691040 1 Tablet(s) PO daily 05/30/2016 06/28/2016 Inactive cyclobenzaprine 5 mg tablet RxNorm: 585317 1-2 Tablet(s) PO TID as needed 05/19/2016 05/23/2016 Inactive metoprolol succinate ER 25 mg tablet,extended release 24 hr RxNorm: 816615 1 Tablet(s) PO QPM 04/10/2016 04/13/2016 Inactive metoprolol succinate ER 25 mg tablet,extended release 24 hr RxNorm: 676786 1 Tablet(s) PO QPM 04/10/2016 04/09/2016 Inactive escitalopram 10 mg tablet RxNorm: 634463 1 Tablet(s) PO daily 03/16/2016 07/12/2016 Inactive estradiol 1 mg tablet RxNorm: 197534 1 Tablet(s) PO every other day 03/16/2016 05/15/2016 Inactive Kenalog 40 mg/mL suspension for injection RxNorm: 6953790 Milliliter(s) Inj 02/28/2016 02/28/2016 Inactive Zithromax Z-Marek 250 mg tablet RxNorm: 133490 1 Tablet(s) PO UD 02/28/2016 03/03/2016 Inactive zpack Lexapro 10 mg tablet RxNorm: 850864 1 Tablet(s) PO daily 201502/27/2016 Inactive Lexapro 10 mg tablet RxNorm: 384984 1 Tablet(s) PO daily 201509/26/2015 Inactive Vimovo 500 mg-20 mg tablet,immediate and delay release RxNorm: 799920 1 Tablet(s) PO BID as needed for pain 08/30/201509/25 Inactive azithromycin 250 mg tablet RxNorm: 709632 1 Tablet(s) PO UD 2 pills on day #1, then one pill daily x 4 days 07/15/2015 Inactive hydrocodone 10 mg-acetaminophen 325 mg tablet RxNorm: 132133 1 Tablet(s) PO QID 06/16/2015 01/12/2016 Inactive pramipexole 0.5 mg tablet RxNorm: 184994 1 Tablet(s) PO QPM 07/201507/14/2015 Inactive Celebrex 200 mg capsule RxNorm: 252342 1 Capsule(s) PO daily 05/02/2015 Inactive Celebrex 200 mg capsule RxNorm: 016576 1 Capsule(s) PO daily 01/12/2016 Inactive hydrocodone 7.5 mg-acetaminophen 325 mg tablet RxNorm: 664015 1 Tablet(s) PO Q6 PRN 05/03/2015 06/15/2015 Inactive Mobic 15 mg tablet RxNorm: 393138 1 Tablet(s) PO daily 201405/02/2015 Inactive hydrocodone 7.5 mg-acetaminophen 325 mg tablet RxNorm: 033929 1 Tablet(s) PO Q6 PRN 04/02/2015 05/02/2015 Inactive hydrocodone 5 mg-acetaminophen 325 mg tablet RxNorm: 024105 1 Tablet(s) PO Q6 as needed 12/11/2014 04/01/2015 Inactive Pennsaid 1.5 % topical drops RxNorm: 775399 40 Drop(s) TOP QID as needed 12/07/2014 02/04/2015 Inactive Apply 40 drops to each knee joint 4 times per day as needed for osteoarthritis pain estradiol 1 mg tablet RxNorm: 497275 1 Tablet(s) PO QHS No Start Date 03/15/2016 Inactive Xanax 0.5 mg tablet RxNorm: 063300 1 Tablet(s) PO Q6 as needed anxiety No Start Date 08/23/2016 Inactive Tylenol Extra Strength 500 mg tablet RxNorm: 884053 3 Tablet(s) PO BID after breakfast and after lunch No Start Date Inactive lactulose 20 gram/30 mL oral solution RxNorm: 829866 15-30 Milliliter(s) PO BID as needed No Start Date 12/30/2017 Inactive hydrocodone 5 mg-acetaminophen 325 mg tablet RxNorm: 430147 1 Tablet(s) PO Q6 as needed No Start Date 12/10/2014 Inactive Phenergan-Codeine syrup RxNorm: 5-10 Milliliter(s) PO QID as needed No Start Date 11/13/2017 Inactive ibuprofen 200 mg capsule RxNorm: 698930 4 Capsule(s) PO QID as needed No Start Date 04/01/2015 Inactive Medication Administered Medication Codes Instructions Start Date Status ceftriaxone 500 mg solution for injection RxNorm: 5247559 1Milliliter 06/27/2017 No longer Active Kenalog 40 mg/mL suspension for injection RxNorm: 7444961 1.5Milliliter 01/11/2017 No longer Active Kenalog 40 mg/mL suspension for injection RxNorm: 0880005 Milliliter 02/28/2016 No longer Active Immunizations Vaccine [...] Code Item Item Code Result Date %Hba1C Cgl404 % HbA1c 12475-8 6.7 % 11/20/2017 %Hba1C Lth860 Gluc Ave 146 mg/dL 11/20/2017 Free T4 Dfz494 FREE T4 0.76 ng/dL 05/21/2017 Tsh Ord6 hTSH II 1.27 uIU/mL 05/21/2017 Comp Metabolic Rqh305 NA 140 mEq/L 05/21/2017 Comp Metabolic Moc829 K 3.9 mEq/L 05/21/2017 Comp Metabolic Szh851 CL 101 mEq/L 05/21/2017 Comp Metabolic Ofd650 CO2 28.0 mEq/L 05/21/2017 Comp Metabolic Lwd000 ANION GAP 15 05/21/2017 Comp Metabolic Kvm445 GLUCOSE 155 mg/dL 05/21/2017 Comp Metabolic Slx366 Creat 0.7 mg/dL 05/21/2017 Comp Metabolic Ekq554 eGFR 87 ml/min/1.73m2 05/21/2017 Comp Metabolic Tor819 BUN 16 mg/dL 05/21/2017 Comp Metabolic Pqa348 B/C Ratio 21.6 Ratio 05/21/2017 Comp Metabolic Tzg140 CALCIUM 9.4 mg/dL 05/21/2017 Comp Metabolic Uyk087 ALK PHOS 132 U/L 05/21/2017 Comp Metabolic Dlp743 AST(SGOT) 16 U/L 05/21/2017 Comp Metabolic Toq285 ALT(SGPT) 20 U/L 05/21/2017 Comp Metabolic Qik708 BILI T 0.4 mg/dL 05/21/2017 Comp Metabolic Zad330 ALBUMIN 4.0 g/dL 05/21/2017 Comp Metabolic Ffq786 TPRO 6.7 g/dL 05/21/2017 Comp Metabolic Cav758 GLOB 2.7 g/dL 05/21/2017 Comp Metabolic Vix352 A/G Ratio 1.5 Ratio 05/21/2017 Comp Metabolic Bcm983 Osmo 284 mOsmo 05/21/2017 Cbc With Differential [...] 28.9 pg 05/21/2017 Cbc With Differential Ord2 [place]% 5.5 % 05/21/2017 Cbc With Differential Ord2 [...] 2.65 K/ul 05/21/2017 Cbc With Differential Ord2 [place] ABS# 0.8 K/ul 05/21/2017 Cbc With Differential Ord2 Eos ABS# 0.1 K/ul 05/21/2017 Cbc With Differential Ord2 Baso ABS# 0.0 K/ul 05/21/2017 Estrogens Total 892674 ESTROGENS, TOTAL 54 pg/mL 05/24/2016 Magnesium Ord90 Mag 1.8 mg/dL 05/19/2016 Tsh Ord6 hTSH II 1.56 uIU/mL 05/19/2016 Progesterone Prog 0.03 ng/mL 05/19/2016 Comp Metabolic Wda157 NA 136 mEq/L 05/19/2016 Comp Metabolic Hbh190 K 4.3 mEq/L 05/19/2016 Comp Metabolic Dla496 CL 100 mEq/L 05/19/2016 Comp Metabolic Fuj880 CO2 28.0 mEq/L 05/19/2016 Comp Metabolic Fct310 ANION GAP 12 05/19/2016 Comp Metabolic Rgz037 GLUCOSE 138 mg/dL 05/19/2016 Comp Metabolic Wvp275 Creat 0.7 mg/dL 05/19/2016 Comp Metabolic Eax007 eGFR 89 ml/min/1.73m2 05/19/2016 Comp Metabolic Avz296 BUN 15 mg/dL 05/19/2016 Comp Metabolic Bpc817 B/C Ratio 20.5 Ratio 05/19/2016 Comp Metabolic Fiq245 CALCIUM 9.7 mg/dL 05/19/2016 Comp Metabolic Wmu238 ALK PHOS 106 U/L 05/19/2016 Comp Metabolic Xll249 AST(SGOT) 21 U/L 05/19/2016 Comp Metabolic Fwe771 ALT(SGPT) 24 U/L 05/19/2016 Comp Metabolic Gcp571 BILI T 0.4 mg/dL 05/19/2016 Comp Metabolic Sus589 ALBUMIN 4.1 g/dL 05/19/2016 Comp Metabolic Lqy503 TPRO 7.1 g/dL 05/19/2016 Comp Metabolic Smm974 GLOB 3.0 g/dL 05/19/2016 Comp Metabolic Xty106 A/G Ratio 1.4 Ratio 05/19/2016 Comp Metabolic Hjo234 Osmo 275 mOsmo 05/19/2016 Cbc With Differential [...] 86.5 fl 05/19/2016 Cbc With Differential Ord2 [place]% 6.5 % 05/19/2016 Cbc With Differential Ord2 [...] 2.33 K/ul 05/19/2016 Cbc With Differential Ord2 [place] ABS# 0.6 K/ul 05/19/2016 Cbc With Differential Ord2 Eos ABS# 0.1 K/ul 05/19/2016 Cbc With Differential Ord2 Baso ABS# 0.0 K/ul 05/19/2016 C RAP A SC [id number] Strep A Negative 02/28/2016 Tsh Ord6 hTSH [...] 26.2 pg 08/16/2015 Cbc With Differential Ord2 [place]% 7.1 % 08/16/2015 Cbc With Differential Ord2 [...] 2.32 K/ul 08/16/2015 Cbc With Differential Ord2 [place] ABS# 0.6 K/ul 08/16/2015 Cbc With Differential Ord2 Eos ABS# 0.1 K/ul 08/16/2015 Cbc With Differential Ord2 Baso ABS# 0.0 K/ul 08/16/2015 Cbc With Differential Ord2 New Analyzer Notice Please note new ref ranges starting 05-26-2015 due to implemntation of new five part differential hematolgy analyzer. 08/16/2015 Comp Metabolic Onb582 NA 132 mEq/L 08/16/2015 Comp Metabolic Axw695 K 3.6 mEq/L 08/16/2015 Comp Metabolic Bvy903 CL 99 mEq/L 08/16/2015 Comp Metabolic Bwc799 CO2 23.0 mEq/L 08/16/2015 Comp Metabolic Nvu545 ANION GAP 14 08/16/2015 Comp Metabolic Rwt761 GLUCOSE 101 mg/dL 08/16/2015 Comp Metabolic Hky733 Creat 0.7 mg/dL 08/16/2015 Comp Metabolic Geu722 eGFR 100 ml/min/1.73m2 08/16/2015 Comp Metabolic Hvm079 BUN 10 mg/dL 08/16/2015 Comp Metabolic Jrr268 B/C Ratio 15.2 Ratio 08/16/2015 Comp Metabolic Pms172 CALCIUM 9.3 mg/dL 08/16/2015 Comp Metabolic Sav901 ALK PHOS 100 U/L 08/16/2015 Comp Metabolic Eoe903 AST(SGOT) 14 U/L 08/16/2015 Comp Metabolic Zuc355 ALT(SGPT) 11 U/L 08/16/2015 Comp Metabolic Rpi110 BILI T 0.3 mg/dL 08/16/2015 Comp Metabolic Scf006 ALBUMIN 3.9 g/dL 08/16/2015 Comp Metabolic Uxi292 TPRO 7.1 g/dL 08/16/2015 Comp Metabolic Nun226 GLOB 3.2 g/dL 08/16/2015 Comp Metabolic Ptf613 A/G Ratio 1.2 Ratio 08/16/2015 Comp Metabolic Wzl314 Osmo 264 mOsmo 08/16/2015 Lipid Ord30 CHOL 209 mg/dL 12/03/2014 Lipid Ord30 HDL 42.0 mg/dl 12/03/2014 Lipid Ord30 TRIG 219 mg/dL 12/03/2014 Lipid Ord30 LDL 123 mg/dL 12/03/2014 Lipid Ord30 C/HDL 5.0 Ratio 12/03/2014 Comp Metabolic Fex936 NA 132 mEq/L 12/03/2014 Comp Metabolic Plg343 K 4.0 mEq/L 12/03/2014 Comp Metabolic Ahj349 CL 101 mEq/L 12/03/2014 Comp Metabolic Eif728 CO2 22.0 mEq/L 12/03/2014 Comp Metabolic Xhs871 ANION GAP 13 12/03/2014 Comp Metabolic Mzs954 GLUCOSE 123 mg/dL 12/03/2014 Comp Metabolic Sjk423 Creat 0.7 mg/dL 12/03/2014 Comp Metabolic Oqe326 eGFR 97 ml/min/1.73m2 12/03/2014 Comp Metabolic Mhe098 BUN 10 mg/dL 12/03/2014 Comp Metabolic Ksq816 B/C Ratio 14.7 Ratio 12/03/2014 Comp Metabolic Ped494 CALCIUM 9.2 mg/dL 12/03/2014 Comp Metabolic Dxg911 ALK PHOS 88 U/L 12/03/2014 Comp Metabolic Nie706 AST(SGOT) 18 U/L 12/03/2014 Comp Metabolic Spv277 ALT(SGPT) 17 U/L 12/03/2014 Comp Metabolic Xwo424 BILI T 0.5 mg/dL 12/03/2014 Comp Metabolic Zrx865 ALBUMIN 3.9 g/dL 12/03/2014 Comp Metabolic Ygb826 TPRO 6.8 g/dL 12/03/2014 Comp Metabolic Avb141 GLOB 2.9 g/dL 12/03/2014 Comp Metabolic Tud497 A/G Ratio 1.3 Ratio 12/03/2014 Comp Metabolic Yqf866 Osmo 265 mOsmo 12/03/2014 Tsh Ord6 hTSH II 1.13 uIU/mL 12/03/2014 D-Dimer D-DIMER 168 NG/ML 12/03/2014 D-Dimer [id number] COMMENT 12/03/2014 Cbc With Differential Ord2 WBC [...] clubbing 06/19/2018 None Full Exam - General 1995 Musculoskeletal [...] lips 05/21/2017 None Full Exam - General 1995 Ears/Nose/Throat oral cavity/pharynx/larynx Overall: oral mucosa clear [...] General 1995 Ears/Nose/Throat lips/teeth/gingiva Overall: benign lips 07/13/2016 None [...] lips 05/19/2016 None Full Exam - General 1995 Ears/Nose/Throat lips/teeth/gingiva Overall: normal dentition 05/19/2016 None [...] Procedure Codes Date THER/PROPH/DIAG INJ SC/IM CPT-4: 49261 06/27/2017 ROCEPHIN, PER 250 MG CPT-4: J0696 06/27/2017 IMMUNIZATION ADMIN CPT -4: 53397 03/16/2017 FLU VAC NO PRSV 4 FLETCHER 3 YRS+ CPT-4: 59249 03/16/2017 Pneumococcal Polysaccharide Vaccine, 23-Valent, Ad CPT-4: 73321 03/16/2017 IMMUNIZATION ADMIN EACH ADD CPT-4: 66669 03/16/2017 TRIAMCINOLONE ACET INJ NOS CPT-4: J3301 01/11/2017 TRIAMCINOLONE ACET INJ NOS CPT-4: J3301 02/28/2016 Vital Signs Date Vital 06/19/2018 Blood Pressure 1: 124/74 Code : 8480-6 BMI: 38.6 Code : 27704-6 Heart Rate 1 : 85 bpm Height: 5'6" SpO2: 95% Weight: 239 lbs 04/24/2018 Blood Pressure 1: 128/74 Code : 8480-6 BMI: 37.8 Code : 34036-1 Heart Rate 1 : 107 bpm Height: 5'6" SpO2: 98% Weight: 234 lbs 04/17/2018 Blood Pressure 1: 120/64 Code : 8480-6 BMI: 37.8 Code : 25452-5 Heart Rate 1 : 84 bpm Height: 5'6" SpO2: 96% Weight: 234 lbs 03/14/2018 Blood Pressure 1: 140/82 Code : 8480-6 BMI: 37.8 Code : 60677-7 Heart Rate 1 : 85 bpm Height: 5'6" SpO2: 98% Weight: 234 lbs 02/27/2018 Blood Pressure 1: 142/68 Code : 8480-6 BMI: 36.5 Code : 01298-0 Heart Rate 1 : 84 bpm Height: 5'6" SpO2: 97% Weight: 226 lbs 12/19/2017 Blood Pressure 1: 130/86 Code : 8480-6 BMI: 35.7 Code : 66317-2 Heart Rate 1 : 94 bpm Height: 5'6" Weight: 221 lbs 12/04/2017 Blood Pressure 1: 138/78 Code : 8480-6 BMI: 36.6 Code : 39847-5 Heart Rate 1 : 94 bpm Height: 5'6" SpO2: 98% Weight: 227 lbs 11/20/2017 Weight: 233 lbs 09/10/2017 Blood Pressure 1: 132/86 Code : 8480-6 Heart Rate 1: 86 bpm Height: Weight: 08/14/2017 Blood Pressure 1: 120/74 Code : 8480-6 BMI: 33.9 Code : 39514-8 Heart Rate 1 : 92 bpm Height: 5'6" SpO2: 94% Weight: 210 lbs 07/31/2017 Blood Pressure 1: 140/80 Code : 8480-6 BMI: 33.9 Code : 64272-4 Heart Rate 1 : 96 bpm Height: 5'6" SpO2: 97% Weight: 210 lbs 06/27/2017 Blood Pressure 1: 128/80 Code : 8480-6 BMI: 33.9 Code : 49298-9 Heart Rate 1 : 85 bpm Height: [...] Code : 8480-6 BMI: 39.9 Code : 23483-6 Heart Rate 1 : 79 bpm Height: 5'6" SpO2: 97% Weight: 247 lbs 01/26/2017 Blood Pressure 1: 132/74 Code : 8480-6 BMI: 37.8 Code : 93135-3 Heart Rate 1 : 74 bpm Height: 5'6" SpO2: 97% Weight: 234 lbs 01/11/2017 Blood Pressure 1: 118/68 Code : 8480-6 BMI: 38.7 Code : 77502-3 Heart Rate 1 : 91 bpm Height: 5'6" SpO2: 96% Weight: 240 lbs 11/30/2016 Blood Pressure 1: 132/76 Code : 8480-6 BMI: 38.3 Code : 45210-9 Heart Rate 1 : 71 bpm Height: 5'6" SpO2: 92% Weight: 237 lbs 09/28/2016 Blood Pressure 1: 122/72 Code : 8480-6 BMI: 39.1 Code : 36421-4 Heart Rate 1 : 88 bpm Height: 5'6" SpO2: 94% Weight: 242 lbs 08/24/2016 Blood Pressure 1: 130/87 Code : 8480-6 BMI: 41.5 Code : 34098-5 Heart Rate 1 : 95 bpm Height: 5'6" Respiratory Rate: 16 bpm SpO2: 98% Temperature: 36.9 (C) / 98.5 (F ) Weight: 257 lbs 07/13/2016 Blood Pressure 1: 132/84 Code : 8480-6 BMI: 42.0 Code : 33779-4 Heart Rate 1 : 73 bpm Height: 5'6" SpO2: 97% Weight: 260 lbs 05/19/2016 Blood Pressure 1: 138/76 Code : 8480-6 BMI: 40.8 Code : 07255-6 Heart Rate 1 : 80 bpm Height: 5'6" SpO2: 98% Weight: 253 lbs 03/16/2016 Blood Pressure 1: 122/70 Code : 8480-6 BMI: 40.4 Code : 94759-8 Heart Rate 1 : 72 bpm Height: 5'6" SpO2: 98% Weight: 250 lbs 02/28/2016 Blood Pressure 1: 136/86 Code : 8480-6 BMI: 40.2 Code : 19206-1 Heart Rate 1 : 87 bpm Height: 5'6" SpO2: 96% Temperature: 36.3 (C) / 97.3 (F) Weight: 249 lbs 01/13/2016 Blood Pressure 1: 120/76 Code : 8480-6 BMI: 40.4 Code : 68459-1 Heart Rate 1 : 68 bpm Height: 5'6" SpO2: 97% Weight: 250 lbs 09/27/2015 Blood Pressure 1: 112/70 Code : 8480-6 BMI: 38.4 Code : 10466-9 Heart Rate 1 : 76 bpm Height: 5'6" SpO2: 98% Weight: 238 lbs 08/30/2015 Blood Pressure 1: 144/82 Code : 8480-6 BMI: 39.5 Code : 08324-0 Heart Rate 1 : 82 bpm Height: 5'6" SpO2: 97% Weight: 245 lbs 08/16/2015 Blood Pressure 1: 140/72 Code : 8480-6 BMI: 38.9 Code : 09298-8 Heart Rate 1 : 72 bpm Height: 5'6" SpO2: 97% Weight: 241 lbs 07/15/2015 Blood Pressure 1: 128/80 Code : 8480-6 BMI: 39.3 Code : 31551-5 Heart Rate 1 : 86 bpm Height: 5'6" SpO2: 98% Weight: 243 lbs 8 oz 06/16/2015 Blood Pressure 1: 146/86 Code : 8480-6 BMI: 39.6 Code : 76051-3 Heart Rate 1 : 76 bpm Height: 5'6" SpO2: 97% Weight: 245 lbs 8 oz 04/02/2015 Blood Pressure 1: 132/86 Code : 8480-6 BMI: 40.7 Code : 11497-3 Heart Rate 1 : 94 bpm Height: 5'6" SpO2: 98% Weight: 252 lbs 12/02/2014 Blood Pressure 1: 122/90 Code : 8480-6 BMI: 41.6 Code : 53314-4 Heart Rate 1 : 77 bpm Height: [...] data Encounters Encounter Performer Location Codes Date 01720 EST. PATIENT, LEVEL IV Diagnosis: Generalized anxiety disorder[ICD10: F41.1] Diagnosis: Major depressive disorder, single episode, moderate[ICD10: F32.1] Diagnosis: Other insomnia[ICD10: G47.09] [facility] CPT-4 : 41282 06/19/2018 31095 EST. PATIENT, LEVEL IV Diagnosis: Right upper quadrant pain[ICD10: R10.11] Diagnosis: Other chest pain[ICD10: R07.89] [facility] CPT-4 : 96989 04/24/2018 57473 EST. PATIENT, LEVEL III Diagnosis: Generalized anxiety disorder[ICD10: F41.1] Diagnosis: Major depressive disorder, recurrent, mild[ICD10: F33.0] Diagnosis: Essential (primary) hypertension[ICD10: I10] Diagnosis: Type 2 diabetes mellitus without complications[ICD10: E11.9] [facility] CPT-4: 94598 04/17/2018 37286 EST. PATIENT, LEVEL III Diagnosis: Localized edema[ICD10: R60.0] Diagnosis: Essential (primary) hypertension[ICD10: I10] Petra Trejo MD, [facility] CPT-4: 28898 03/14/2018 64314 EST. PATIENT, LEVEL III Diagnosis: Pain in left knee[ICD10: M25.562] Diagnosis: Other obesity due to excess calories[ICD10: E66.09] Diagnosis: Other insomnia[ICD10: G47.09] Diagnosis: Generalized anxiety disorder[ICD10: F41.1] Petra Trejo MD, [facility] CPT-4: 70435 02/27/2018 ([id number]) Miscellaneous no charge Diagnosis: Other obesity due to excess calories[ICD10: E66.09] Heidy Trejo MD, [facility] CPT-4: 48473 12/19/2017 78138 EST. PATIENT, LEVEL III Diagnosis: Pain in right foot[ICD10: M79.671] Diagnosis: Pain in right ankle and joints of right foot[ICD10: M25.571] Petra Trejo MD , [facility] CPT-4: 88718 12/04/2017 96704 EST. PATIENT, LEVEL III Diagnosis: Pain in left knee[ICD10: M25.562] Diagnosis: Type 2 diabetes mellitus without complications[ICD10: E11.9] Diagnosis: Other obesity due to excess calories[ICD10: E66.09] Petra Trejo MD, [facility] CPT-4: 57023 11/20/2017 55408 EST. PATIENT, LEVEL III Diagnosis: Pain in left knee[ICD10: M25.562] Petra Trejo MD, [facility] CPT -4: 13101 09/10/2017 08069 EST. PATIENT, LEVEL III Diagnosis: Encounter for follow-up examination after completed treatment for conditions other than malignant neoplasm[ICD10: Z09] Diagnosis: Pain in left knee[ICD10: M25.562] Petra Trejo MD, [facility] CPT -4: 06217 08/14/2017 72519 EST. PATIENT, LEVEL III Diagnosis: Pain in left knee[ICD10: M25.562] Petra Trejo MD, [facility] CPT -4: 61169 07/31/2017 27815 EST. PATIENT, LEVEL III Diagnosis: Acute laryngopharyngitis[ICD10: J06.0] Diagnosis: Other allergic rhinitis[ICD10: J30.89] Petra Trejo MD, [facility] CPT-4: 38637 06/27/2017 15136 EST. PATIENT, LEVEL III Diagnosis: Ganglion, left hand[ICD10: M67.442] Diagnosis: Essential (primary) hypertension[ICD10: I10] Diagnosis: Generalized anxiety disorder[ICD10: F41.1] Diagnosis: Other insomnia[ICD10: G47.09] Petra Trejo MD, [facility] CPT-4 : 68975 05/29/2017 00059 EST. PATIENT, LEVEL III Diagnosis: Essential (primary) hypertension[ICD10: I10] Diagnosis: Palpitations[ICD10: R00.2] Diagnosis: Generalized anxiety disorder[ICD10: F41.1] Petra Trejo MD, [facility] CPT-4: 94851 05/21/2017 61736 EST. PATIENT, LEVEL III Diagnosis: Pain in right foot[ICD10: M79.671] Petra Trejo MD, [facility] CPT-4: 59655 04/20/2017 31489 EST. PATIENT, LEVEL IV Diagnosis: Other insomnia[ICD10: G47.09] Diagnosis: Other skin changes[ICD10: R23.8] Petra Trejo MD, [facility] CPT- 4: 02329 01/26/2017 39837 EST. PATIENT, LEVEL IV Diagnosis: Acute bronchitis due to other specified organisms[ICD10: J20.8] Petra Trejo MD, [facility] CPT-4: 69469 01/11/2017 ([id number]) 56235 EST. PATIENT, LEVEL IV Diagnosis: Essential (primary) hypertension[ICD10: I10] Diagnosis: Other insomnia[ICD10: G47.09] Diagnosis: Primary generalized (osteo)arthritis[ICD10: M15.0] Diagnosis: Other obesity due to excess calories[ICD10: E66.09] Claudette Trejo MD, [facility] CPT-4: 14770 11/30/2016 ([id number]) 94913 EST. PATIENT, LEVEL III Diagnosis: Other obesity due to excess calories[ICD10: E66.09] Diagnosis: Other insomnia[ICD10: G47.09] Diagnosis: Generalized anxiety disorder[ICD10: F41.1] Claudette Trejo MD, [facility] CPT-4: 45734 09/28/2016 ([id number]) 72361 EST. PATIENT, LEVEL IV Diagnosis: Generalized anxiety disorder[ICD10: F41.1] Diagnosis: Major depressive disorder, recurrent, mild[ICD10: F33.0] Diagnosis: Other obesity due to excess calories[ICD10: E66.09] Diagnosis: Other insomnia[ICD10: G47.09] Claudette Trejo MD, [facility] CPT-4: 02258 08/24/2016 ([id number]) 70384 EST. PATIENT, LEVEL III Diagnosis: Other obesity due to excess calories[ICD10: E66.09] Diagnosis: Major depressive disorder, recurrent, moderate[ICD10: F33.1] Diagnosis: Low back pain[ICD10: M54.5] Heidy Trejo MD, [facility] CPT- 4: 52779 07/13/2016 26206 EST. PATIENT, LEVEL IV Diagnosis: Other muscle spasm[ICD10: M62.838] Diagnosis: Generalized anxiety disorder[ICD10: F41.1] Diagnosis: Major depressive disorder, recurrent, moderate[ICD10: F33.1] Diagnosis: Other insomnia[ICD10: G47.09] Petra Trejo MD, [facility] CPT-4 : 06372 05/19/2016 ([id number]) 09855 EST. PATIENT, LEVEL III Diagnosis: Generalized anxiety disorder[ICD10: F41.1] Diagnosis: Major depressive disorder, recurrent, moderate[ICD10: F33.1] Heidy Trejo MD, [facility] CPT-4: 04548 03/16/2016 ([id number]) 99208 EST. PATIENT, LEVEL III Diagnosis: Streptococcal pharyngitis[ICD10: J02.0] Claudette Trejo MD, [facility] CPT-4: 90410 02/28/2016 ([id number]) 05940 EST. PATIENT, LEVEL III Diagnosis: Generalized anxiety disorder[ICD10: F41.1] Diagnosis: Other obesity due to excess calories[ICD10: E66.09] Heidy Trejo MD, [facility] CPT-4: 78975 01/13/2016 ([id number]) 77856 EST. PATIENT, LEVEL III Diagnosis: Generalized anxiety disorder[ICD10: F41.1] Diagnosis: Major depressive disorder, recurrent, unspecified[ICD10: F33.9] Heidy Trejo MD, [facility] CPT-4: 80750 09/27/2015 49503 EST. PATIENT, LEVEL IV Diagnosis: Chronic pain syndrome[ICD10: G89.4] Diagnosis: Other obesity due to excess calories[ICD10: E66.09] Diagnosis: Essential (primary) hypertension[ICD10: I10] Diagnosis: Generalized anxiety disorder[ICD10: F41.1] Diagnosis: Excessive and frequent menstruation with regular cycle[ICD10: N92.0] Diagnosis: Pain in right knee[ICD10: M25.561] Petra Trejo MD, [facility] CPT-4: 75730 08/30/2015 65228 EST. PATIENT, LEVEL IV Diagnosis: Palpitations[ICD10: R00.2] Diagnosis: Other obesity due to excess calories[ICD10: E66.09] Petra Trejo MD, [facility] CPT-4: 13155 08/16/2015 ([id number]) 98282 EST. PATIENT, LEVEL IV Diagnosis: Pain in right knee[ICD10: M25.561] Diagnosis: Primary generalized (osteo)arthritis[ICD10: M15.0] Diagnosis: Acute maxillary sinusitis, unspecified[ICD10: J01.00] Heidy Trejo MD, [facility] CPT-4: 51258 07/15/2015 ([id number]) 70446 EST. PATIENT, LEVEL IV Diagnosis: Primary generalized (osteo)arthritis[ICD10: M15.0] Diagnosis: Restless legs syndrome[ICD10: G25.81] Diagnosis: Chronic pain syndrome[ICD10: G89.4] Heidy Trejo MD, [facility] CPT-4: 64197 06/16/2015 ([id number]) 58583 EST. PATIENT, LEVEL III Diagnosis: Primary generalized (osteo)arthritis[ICD10: M15.0] Diagnosis: Varicose veins of bilateral lower extremities with pain[ICD10: I83.813] [facility] CPT-4: 46354 ([id number]) OFFICE VISIT, NEW - LEVEL 3 Diagnosis: Osteoarthritis[ICD9: 715.90] Diagnosis: ABNORMAL WEIGHT GAIN[ICD9: 783.1] Diagnosis: Superficial thrombophlebitis[ICD9: 451.9] Carey Trejo MD, [facility] CPT-4: 23056 12/02/2014 Plan of Care Planned Activity Notes [...] this patient. 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 04/17/2018 App[facility]ment[phone] (15 min) Moderate 04/17/2018 Patient Education: [...] peripheral edema. 03/14/2018 App[phone] (15 min) Moderate 03/14/2018 Patient Education: [...] to ortho 02/27/2018 Appointment: Petra Rivas WPtel: [facility] (30 min) Complex 02/27/2018 Patient Education: Patient [...] improve. 12/04/2017 App[facility]ment[phone] [facility] (15 min) Moderate 12/04/2017 Patient Education: [...] control. 11/20/2017 App[phone] [place] (15 min) Moderate 11/20/2017 Patient Education: [...] not improve. 09/10/2017 Appointment: Petra Rivas WPtel: [facility] [place] (15 min) Moderate 09/10/2017 Patient Education: [...] improve. 08/14/2017 App[facility]ment: [phone] [facility] [place] (30 min) Complex 08/14/2017 Patient Education: Patient Medication Summary Completed 08/14/2017 App[phone] [facility] [place] (15 min) Moderate 08/01/2017 Visit Plan: Knee pain - pt is to use RICE - Rest, Ice, Compression, Elevation - pt is to use crutches as directed - The pt is to use prn antiinflammatories to manage acute pain. The patient is to call the office if the pain is worsening or does not improve. 07/31/2017 Appointment: Petra Rivas WPtel: [phone] [facility] (30 min) Complex 07/31/2017 Patient Education: Patient Medication Summary Completed 07/31/2017 Care Plan: X-RAY EXAM OF KNEE 3 [facility] : 13308-3 Pending 07/31/2017 Visit Plan: URI - Pt [...] allergy spray. 06/27/2017 Appointment: Petra Rivas WPtel: [facility] (15 min) Moderate 06/27/2017 Patient Education: Patient Medication Summary Completed 06/27/2017 Referral: Jignesh Quinn [facility] Patient informed. Referral info faxed. Completed 06/13/2017 [...] Dr. Quinn 05/29/2017 Appointment: Petra Rivas WPtel: [phone] [facility] (15 min) Moderate 05/29/2017 Patient Education: Patient Medication Summary Completed 05/29/2017 Care Plan: Referral Order SNOMED-CT : [id number] Pending 05/29/2017 Appointment: Petra Rivas WPtel[facility] (15 min) Moderate 05/28/2017 Visit Plan: Palpitations [...] acute concerns. 05/21/2017 Appointment: Petra Rivas WPtel[facility] [place] (15 min) Moderate 05/21/2017 Patient Education: Patient Medication Summary Completed 05/21/2017 Visit Plan: Right heel pain - will send RX, pt is to do stretches as directed - The pt is to use prn antiinflammatories to manage acute pain. The patient is to call the office if the pain is worsening or does not improve. 04/20/2017 Appointment: Petra Rivas WPtel[facility] [place] (30 min) Complex 04/20/2017 Patient Education: Patient Medication Summary Completed 04/20/2017 Appointment: Petra Rivas WPtel: [phone] [facility] (30 min) Complex 03/29/2017 Patient Education: Patient Medication Summary Completed 03/16/2017 Referral: Maycol Quijano Referral Initiated 02/08/2017 Care Plan: Referral Order SNOMED-CT : [id number] Pending 01/28/2017 Visit Plan: Insomnia - Pt [...] concerns. 01/26/2017 Appointment: Petra Rivas WPtel: [phone] [facility] (30 min) Complex 01/26/2017 Patient Education: [...] acutely worsen. 01/11/2017 Appointment: Petra Rivas WPtel: [phone] [facility] (15 min) Moderate 01/11/2017 Patient Education: [...] on use. 11/30/2016 Appointment: Claudette Savage WPtel: [address] [place] [address] (15 min) Moderate 11/30/2016 Patient Education: Patient Medication Summary Completed 11/30/2016 Patient Education: Obesity Completed 11/30/2016 Care Plan: BMI Above normal followup SELF-MGMT EDUC & TRAIN 1 PT Pending 2016 Visit Plan: Moptbrx-dlrsnwvyzq-ropuujiw with increase in cymbalta-no changes Insomnia-RX for belsomra provided and instructed on use Obesity-patient down 15#-no changes-continue diet/exercise-follow up in 2 months 09/28/2016 Appointment: Claudette Savage WPtel: [address] [place] [address] (15 min) Moderate 09/28/2016 Patient Education: Patient Medication Summary Completed 09/28/2016 Patient Education: Obesity Completed 09/28/2016 Care Plan: BMI Above normal followup SELF-MGMT EDUC & TRAIN 1 PT Pending 2016 Visit Plan: Hisszvf-lfjrnuvito-aapinrfr-increase cymbalta to 60mg daily. Increase xanax as [...] for insomnia/anxiety 08/24/2016 Appointment: Claudette Savage WPtel: [address] [place], [place] [phone] (15 min) Moderate 08/24/2016 Patient Education: Patient [...] improving. 07/13/2016 Appointment: Heidy Trejo WPtel: [phone] [facility] (15 min) Moderate 07/13/2016 Patient Education: Patient [...] insomnia. 05/19/2016 Appointment: Petra Rivas WPtel: [phone] [facility] (30 min) Complex 05/19/2016 Patient Education: Patient [...] patient. 03/16/2016 Appointment: Heidy Trejo WPtel: [phone] [facility] (15 min) Moderate 03/16/2016 Patient Education: Patient [...] the swab. 02/28/2016 Appointment: Claudette Savage WPtel: [phone] [phone] (10 min) Simple 02/28/2016 Patient Education: Patient [...] lexapro 01/13/2016 [facility]ment[phone] ([facility] min) Moderate 01/13/2016 Patient Education: Patient [...] 09/27/2015 Care Plan: Referral Order SNOMED-CT : [id number] Pending 08/31/2015 Visit Plan: Anxiety - the [...] pain symptoms. 07/15/2015 Appointment: Heidy Trejo WPtel[facility] (15 min) Moderate 07/15/2015 Patient Education: Patient [...] vein clinic 04/02/2015 Appointment: Claudette Savage WPtel[phone] (15 min) Moderate 04/02/2015 Patient Education: Patient [...] Completed 12/02/2014 Referral: Belle Hoffman WPtel: [phone] will call and set the appt with her Initiated Referral: Maycol Quijano Referral Initiated Referral: Belle Hoffman WPtel: [phone] Referral Initiated Referral: Jignesh Quinn [facility] [place] Referral Initiated Instructions Comment . Right ankle/heel pain - the patient was instructed in appropriate posture, need for weight loss to alleviate abdominal obesity that is worsening the patient's pain. The pt is to use prn antiinflammatories to manage acute pain. The patient is to call the office if the pain is worsening or does not improve. . Anxiety and Depression- the patient has [...] of treatment with the above medications. . Arthritis- occasionally uncontrolled symptoms- recommend pt [...] to 2 pills twice daily. stop lexapro cymbalta 60mg x 3 days, then cymbalta [...] has been appropriately prescribed for this patient. pramipexole - 0.5mg - take at bedtime [...] if symptoms do not show improvement. . Chronic Depression and anxiety - the [...] 1 mg at night for anxiety . Wxrizss-twgbanbzgl-zkqilbkm-increase cymbalta to 60mg daily. 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 BELSOMRA . Jgokjta-xyemyumsto-yoqhdubm with increase in cymbalta-no changes Insomnia-RX for [...] in the nasal steroid allergy spray. . Arthritis- occasionally uncontrolled symptoms- recommend pt to take antiinflammatory as directed for pain control. Use tylenol for break through pain symptoms.
[2018-07-24] MEDS: NITROGLYCERIN 0.4 MG SL TABS BTL 25'S SL PRN ×3 (23:12→23:21)
--- OUTSIDE RECORDS SUMMARY | 2018-07-24 23:15 | XMS REPORT | CCD ---
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 Role Phone PP Unavailable CCM Unavailable Summary Purpose Interface Exchange Insurance Providers Payer name Policy type / Coverage type Covered republican ID Effective Begin Date Effective End Date [facility] Commercial Insurance [id number] Unknown Family history Brother Diagnosis Age At [...] Description Effective Dates Tobacco history SNOMED CT: 2243402 Quit less than 5 years ago 04/02/2015 Alcohol history Unknown occasionally drinks alcohol 04/02/2015 Marital status Unknown Manuel Vitale 12/02/2014 Number of children Unknown 3 12/02/2014 Allergies, Adverse Reactions, Alerts Substance Reaction Codes Entered Date Inactivated Date Status * NO KNOWN FOOD ALLERGIES Unknown 12/02/2014 No Inactive Date Active Penicillin Unknown 12/02/2014 No Inactive Date Active tramadol RxNorm: 81940 12/02/2014 No Inactive Date Active Past Medical [...] Fill Instructions Remeron 15 mg tablet RxNorm: 260420 /2 Tablet(s) PO QHS 201807/19/2018 Active Lasix 20 mg tablet RxNorm: 685478 1 Tablet(s) PO daily 201806/21/2018 Active potassium chloride ER 10 mEq tablet,extended release RxNorm: 514442 1 Tablet(s) PO daily 06/19/2018 No Stop Date Active Lexapro 20 mg tablet RxNorm: 565715 1 Tablet(s) PO daily 201807/18/2018 Active gabapentin 300 mg capsule RxNorm: 881276 1 CAPSULE(S) PO TID 08/12/2018 Active Ambien 10 mg tablet RxNorm: 967332 1 Tablet(s) PO QHS as needed insomnia 06/10/2018 09/07/2018 Active Cymbalta 30 mg capsule,delayed release RxNorm: 324071 1 Capsule(s) PO daily to be taken with 60mg to=90mg 06/03/20182018 Active Cymbalta 30 mg capsule,delayed release RxNorm: 446661 1 Capsule(s) PO daily 06/03/2018 06/02/2018 Inactive Protonix 40 mg tablet,delayed release RxNorm: 035332 1 TABLET(S) PO DAILY 05/20/2018 09/16/2018 Active gabapentin 300 mg capsule RxNorm: 839112 1 CAPSULE(S) PO TID 06/13/2018 Inactive Protonix 40 mg tablet,delayed release RxNorm: 266097 1 Tablet(s) PO daily 04/24/2018 05/19/2018 Inactive Zorvolex 35 mg capsule RxNorm: 8696042 TAKE 1 CAPSULE BY MOUTH THREE (3) TIMES DAILY 04/22/2018 08/19/2018 Active hydrochlorothiazide 25 mg tablet RxNorm: 743710 1 TABLET(S) PO DAILY 04/08/2018 07/06/2018 Active Zorvolex 35 mg capsule RxNorm: 7870567 TAKE 1 CAPSULE BY MOUTH THREE (3) TIMES DAILY 03/27/2018 04/21/2018 Inactive gabapentin 300 mg capsule RxNorm: 833615 1 CAPSULE(S) PO TID 04/14/2018 Inactive hydrochlorothiazide 25 mg tablet RxNorm: 306359 1 Tablet(s) PO daily 03/14/2018 04/07/2018 Inactive Cymbalta 60 mg capsule,delayed release RxNorm: 842160 1 Capsule(s) PO daily TAKE 1 CAPSULE BY MOUTH DAILY 02/27/20182019 Active Victoza 2-Marek 0.6 mg/0.1 mL (18 mg/3 mL) subcutaneous pen injector RxNorm: 805127 Milligram(s) INJECT 1.8 MG SUB-Q ONCE DAILY 02/27/2018 08/20/2019 Active qty sufficient Xanax 1 mg tablet RxNorm: 476706 1-2 Tablet(s) PO QHS as needed insomnia 02/27/2018 05/27/2018 Inactive atorvastatin 20 mg tablet RxNorm: 218613 1 Tablet(s) PO daily 02/27/2018 05/22/2019 Active Cymbalta 60 mg capsule,delayed release RxNorm: 682873 TAKE 1 CAPSULE BY MOUTH DAILY 02/27/2018 02/26/2018 Inactive gabapentin 300 mg capsule RxNorm: 623464 1 Capsule(s) PO TID 03/24/2018 Inactive meloxicam 7.5 mg tablet RxNorm: 763204 1 Tablet(s) PO daily 1 TABLET(S) PO DAILY 02/27/2018 04/14/2018 Inactive Ambien 10 mg tablet RxNorm: 918662 1 Tablet(s) PO QHS as needed insomnia 02/27/2018 05/25/2018 Inactive atorvastatin 20 mg tablet RxNorm: 883435 1 Tablet(s) PO daily 02/05/2018 02/26/2018 Inactive atorvastatin 20 mg tablet RxNorm: 089291 1 Tablet(s) PO daily 02/05/2018 02/04/2018 Inactive meloxicam 7.5 mg tablet RxNorm: 478567 1 TABLET(S) PO DAILY 02/26/2018 Inactive oxycodone 15 mg tablet RxNorm: 9309484 1 Tablet(s) PO QID as needed 01/07/2018 02/19/2018 Inactive lactulose 20 gram/30 mL oral solution RxNorm: 227993 15-30 Milliliter(s) PO BID as needed 12/31/2017 02/20/2018 Inactive meloxicam 7.5 mg tablet RxNorm: 392550 1 TABLET(S) PO DAILY 06/201701/31/2018 Inactive Zorvolex 35 mg capsule RxNorm: 7221507 1 Capsule(s) PO TID 06/201702/20/2018 Inactive Ambien 10 mg tablet RxNorm: 617194 1 Tablet(s) PO QHS as needed insomnia 12/04/2017 02/26/2018 Inactive oxycodone 15 mg tablet RxNorm: 5609216 1 Tablet(s) PO QID as needed 12/04/2017 01/06/2018 Inactive prednisone 20 mg tablet RxNorm: 230507 2 Tablet(s) PO daily 12/08/2017 Inactive Victoza 2-Marek 0.6 mg/0.1 mL (18 mg/3 mL) subcutaneous pen injector RxNorm: 002148 Milligram(s) INJECT 1.8 MG SUB-Q ONCE DAILY 11/20/2017 02/26/2018 Inactive meloxicam 7.5 mg tablet RxNorm: 895572 1 Tablet(s) PO daily 02/201812/12/2017 Inactive phentermine 37.5 mg tablet RxNorm: 449626 1 Tablet(s) PO daily 11/20/2017 12/19/2017 Inactive Ambien 10 mg tablet RxNorm: 804127 1 Tablet(s) PO QHS as needed insomnia 11/20/2017 12/18/2017 Inactive Xanax 1 mg tablet RxNorm: 967622 1.5 Tablet(s) PO QHS as needed insomnia 11/20/2017 02/26/2018 Inactive hydrocodone 7.5 mg-acetaminophen 325 mg tablet RxNorm: 725590 1 Tablet(s) PO TID as needed 11/16/2017 01/06/2018 Inactive Cymbalta 60 mg capsule,delayed release RxNorm: 665121 TAKE 1 CAPSULE BY MOUTH DAILY 11/02/2017 02/26/2018 Inactive Xanax 1 mg tablet RxNorm: 344896 1 Tablet(s) PO BID PRN as needed anxiety 10/04/2017 11/19/2017 Inactive Victoza 2-Marek 0.6 mg/0.1 mL (18 mg/3 mL) subcutaneous pen injector RxNorm: 364736 INJECT 1.8 MG SUB-Q ONCE DAILY 10/04/2017 11/19/2017 Inactive hydrocodone 7.5 mg-acetaminophen 325 mg tablet RxNorm: 353781 1 Tablet(s) PO TID as needed 09/17/2017 11/15/2017 Inactive hydrocodone 7.5 mg-acetaminophen 325 mg tablet RxNorm: 882812 1 Tablet(s) PO TID as needed 09/10/2017 09/16/2017 Inactive prednisone 10 mg tablet RxNorm: 769850 Tablet(s) PO 09/10/2017 11/13/2017 Inactive 6, 5,4,3,2,1 Zorvolex 35 mg capsule RxNorm: 8083764 1 Capsule(s) PO TID 11/13/2017 Inactive Ambien 10 mg tablet RxNorm: 888616 1 Tablet(s) PO QHS as needed insomnia 08/29/2017 11/19/2017 Inactive Zorvolex 35 mg capsule RxNorm: 8997962 1 Capsule(s) PO TID 09/06/2017 Inactive Zorvolex 35 mg capsule RxNorm: 4003358 1 Capsule(s) PO TID 06/201708/27/2017 Inactive Zorvolex 35 mg capsule RxNorm: 1148682 1 Capsule(s) PO TID 06/201708/12/2017 Inactive prednisone 20 mg tablet RxNorm: 029525 2 Tablet(s) PO daily 08/04/2017 Inactive hydrocodone 7.5 mg-acetaminophen 325 mg tablet RxNorm: 217360 1 Tablet(s) PO TID as needed 07/31/2017 09/09/2017 Inactive Zorvolex 35 mg capsule RxNorm: 2351438 1 Capsule(s) PO TID as needed 07/31/2017 11/13/2017 Inactive ceftriaxone 500 mg solution for injection RxNorm: 0179996 1 Milliliter(s) Inj 06/27/2017 06/27/2017 Inactive Keflex 500 mg capsule RxNorm: 497050 1 Capsule(s) PO TID 201707/03/2017 Inactive Ambien 10 mg tablet RxNorm: 263507 1 Tablet(s) PO daily 201708/25/2017 Inactive tramadol 50 mg tablet RxNorm: 161007 1 Tablet(s) PO TID as needed 05/29/2017 07/27/2017 Inactive Xanax 1 mg tablet RxNorm: 093313 1 Tablet(s) PO BID PRN as needed anxiety 05/21/2017 10/03/2017 Inactive alprazolam 1 mg tablet RxNorm: 277815 1 Tablet(s) PO BID as needed 05/21/2017 06/19/2017 Inactive Celebrex 200 mg capsule RxNorm: 373682 1 CAPSULE(S) PO BID 11/05/2017 Inactive prednisone 20 mg tablet RxNorm: 717526 2 Tablet(s) PO daily 12/201604/24/2017 Inactive Ambien 10 mg tablet RxNorm: 469258 Tablet(s) PO 04/20/2017 05/28/2017 Inactive hydrocodone 5 mg-acetaminophen 325 mg tablet RxNorm: 511383 1 Tablet(s) PO QID as needed 04/20/2017 08/01/2017 Inactive Cymbalta 60 mg capsule,delayed release RxNorm: 472638 1 Capsule(s) PO daily 04/20/2017 02/26/2018 Inactive Victoza 2-Marek 0.6 mg/0.1 mL (18 mg/3 mL) subcutaneous pen injector RxNorm: 486526 INJECT 1.8 MG SUB-Q ONCE DAILY 03/26/2017 09/21/2017 Inactive diazepam 2 mg tablet RxNorm: 083750 1 Tablet(s) PO QHS as needed insomnia 01/28/2017 05/07/2017 Inactive Victoza 2-Marek 0.6 mg/0.1 mL (18 mg/3 mL) subcutaneous pen injector RxNorm: 884264 1.8 Milligram(s) SQ daily 01/26/201703/25 Inactive dispense quantity sufficient Tussionex Pennkinetic ER 10 mg-8 mg/5 mL suspension, extended release RxNorm: 5927375 5 Milliliter(s) PO BID 01/11/2017 01/15/2017 Inactive Xanax 1 mg tablet RxNorm: 415898 1 Tablet(s) PO BID PRN as needed anxiety 01/11/2017 05/20/2017 Inactive Zithromax Z-Marek 250 mg tablet RxNorm: 899114 1 Tablet(s) PO UD 01/11/2017 01/15/2017 Inactive zpack albuterol sulfate 2.5 mg/3 mL (0.083 %) solution for nebulization RxNorm: 002181 3 Milliliter(s) INH UD 01/11/201707/2017 Inactive prednisone 20 mg tablet RxNorm: 734345 2 Tablet(s) PO daily 01/15/2017 Inactive Kenalog 40 mg/mL suspension for injection RxNorm: 3224631 1.5 Milliliter(s) Inj 01/11/2017 01/11/2017 Inactive Celebrex 200 mg capsule RxNorm: 945390 1 Capsule(s) PO BID 02/27/2017 Inactive Ambien 5 mg tablet RxNorm: 330170 1 Tablet(s) PO HS PRN 11/3008/07/2017 Inactive trazodone 50 mg tablet RxNorm: 166731 1/2 to 1 Tablet(s) PO QHS 10/13/2016 10/12/2016 Inactive trazodone 50 mg tablet RxNorm: 365054 1/2 to 1 Tablet(s) PO QHS 10/13/2016 11/29/2016 Inactive Belsomra 10 mg tablet RxNorm: 6952767 1 Tablet(s) PO QHS 201611/29/2016 Inactive may increase to 20mg if 10mg not effective Cymbalta 60 mg capsule,delayed release RxNorm: 828943 1 Capsule(s) PO daily 08/24/2016 03/21/2017 Inactive Xanax 1 mg tablet RxNorm: 070137 1 Tablet(s) PO BID PRN as needed anxiety 08/24/2016 01/10/2017 Inactive Victoza 2-Marek 0.6 mg/0.1 mL (18 mg/3 mL) subcutaneous pen injector RxNorm: 760222 Milligram(s) SQ 08/24/2016 08/23/2016 Inactive Victoza 2-Marek 0.6 mg/0.1 mL (18 mg/3 mL) subcutaneous pen injector RxNorm: 983488 1.8 Milligram(s) SQ 08/24/2016 01/25/2017 Inactive Vitamin D2 50,000 unit capsule RxNorm: 032472 1 Capsule(s) PO QW 07/13/2016 10/10/2016 Inactive Cymbalta 30 mg capsule,delayed release RxNorm: 453101 1 Capsule(s) PO daily 07/13/2016 08/23/2016 Inactive Belviq XR 20 mg tablet,extended release RxNorm: 9311787 1 Tablet(s) PO daily 05/30/2016 05/29/2016 Inactive prednisone 20 mg tablet RxNorm: 375785 2 Tablet(s) PO daily 06/03/2016 Inactive prednisone 20 mg tablet RxNorm: 339931 2 Tablet(s) PO daily 05/29/2016 Inactive Belviq XR 20 mg tablet,extended release RxNorm: 9950812 1 Tablet(s) PO daily 05/30/2016 06/28/2016 Inactive cyclobenzaprine 5 mg tablet RxNorm: 814857 1-2 Tablet(s) PO TID as needed 05/19/2016 05/23/2016 Inactive metoprolol succinate ER 25 mg tablet,extended release 24 hr RxNorm: 325263 1 Tablet(s) PO QPM 04/10/2016 04/13/2016 Inactive metoprolol succinate ER 25 mg tablet,extended release 24 hr RxNorm: 275476 1 Tablet(s) PO QPM 04/10/2016 04/09/2016 Inactive escitalopram 10 mg tablet RxNorm: 029817 1 Tablet(s) PO daily 03/16/2016 07/12/2016 Inactive estradiol 1 mg tablet RxNorm: 814242 1 Tablet(s) PO every other day 03/16/2016 05/15/2016 Inactive Kenalog 40 mg/mL suspension for injection RxNorm: 2381435 Milliliter(s) Inj 02/28/2016 02/28/2016 Inactive Zithromax Z-Marek 250 mg tablet RxNorm: 505449 1 Tablet(s) PO UD 02/28/2016 03/03/2016 Inactive zpack Lexapro 10 mg tablet RxNorm: 948877 1 Tablet(s) PO daily 201502/27/2016 Inactive Lexapro 10 mg tablet RxNorm: 525815 1 Tablet(s) PO daily 201509/26/2015 Inactive Vimovo 500 mg-20 mg tablet,immediate and delay release RxNorm: 917240 1 Tablet(s) PO BID as needed for pain 08/30/201509/25 Inactive azithromycin 250 mg tablet RxNorm: 626450 1 Tablet(s) PO UD 2 pills on day #1, then one pill daily x 4 days 07/15/2015 Inactive hydrocodone 10 mg-acetaminophen 325 mg tablet RxNorm: 047169 1 Tablet(s) PO QID 06/16/2015 01/12/2016 Inactive pramipexole 0.5 mg tablet RxNorm: 729414 1 Tablet(s) PO QPM 07/201507/14/2015 Inactive Celebrex 200 mg capsule RxNorm: 301677 1 Capsule(s) PO daily 05/02/2015 Inactive Celebrex 200 mg capsule RxNorm: 042768 1 Capsule(s) PO daily 01/12/2016 Inactive hydrocodone 7.5 mg-acetaminophen 325 mg tablet RxNorm: 852095 1 Tablet(s) PO Q6 PRN 05/03/2015 06/15/2015 Inactive Mobic 15 mg tablet RxNorm: 497357 1 Tablet(s) PO daily 201405/02/2015 Inactive hydrocodone 7.5 mg-acetaminophen 325 mg tablet RxNorm: 866262 1 Tablet(s) PO Q6 PRN 04/02/2015 05/02/2015 Inactive hydrocodone 5 mg-acetaminophen 325 mg tablet RxNorm: 239108 1 Tablet(s) PO Q6 as needed 12/11/2014 04/01/2015 Inactive Pennsaid 1.5 % topical drops RxNorm: 262903 40 Drop(s) TOP QID as needed 12/07/2014 02/04/2015 Inactive Apply 40 drops to each knee joint 4 times per day as needed for osteoarthritis pain estradiol 1 mg tablet RxNorm: 194417 1 Tablet(s) PO QHS No Start Date 03/15/2016 Inactive Xanax 0.5 mg tablet RxNorm: 856963 1 Tablet(s) PO Q6 as needed anxiety No Start Date 08/23/2016 Inactive Tylenol Extra Strength 500 mg tablet RxNorm: 013896 3 Tablet(s) PO BID after breakfast and after lunch No Start Date Inactive lactulose 20 gram/30 mL oral solution RxNorm: 815580 15-30 Milliliter(s) PO BID as needed No Start Date 12/30/2017 Inactive hydrocodone 5 mg-acetaminophen 325 mg tablet RxNorm: 721299 1 Tablet(s) PO Q6 as needed No Start Date 12/10/2014 Inactive Phenergan-Codeine syrup RxNorm: 5-10 Milliliter(s) PO QID as needed No Start Date 11/13/2017 Inactive ibuprofen 200 mg capsule RxNorm: 682145 4 Capsule(s) PO QID as needed No Start Date 04/01/2015 Inactive Medication Administered Medication Codes Instructions Start Date Status ceftriaxone 500 mg solution for injection RxNorm: 8303034 1Milliliter 06/27/2017 No longer Active Kenalog 40 mg/mL suspension for injection RxNorm: 3661529 1.5Milliliter 01/11/2017 No longer Active Kenalog 40 mg/mL suspension for injection RxNorm: 1532357 Milliliter 02/28/2016 No longer Active Immunizations Vaccine [...] Code Item Item Code Result Date %Hba1C Iwr673 % HbA1c 23471-6 6.7 % 11/20/2017 %Hba1C Niq095 Gluc Ave 146 mg/dL 11/20/2017 Free T4 Iwr325 FREE T4 0.76 ng/dL 05/21/2017 Tsh Ord6 hTSH II 1.27 uIU/mL 05/21/2017 Comp Metabolic Wqx860 NA 140 mEq/L 05/21/2017 Comp Metabolic Zuj031 K 3.9 mEq/L 05/21/2017 Comp Metabolic Trf624 CL 101 mEq/L 05/21/2017 Comp Metabolic Abx469 CO2 28.0 mEq/L 05/21/2017 Comp Metabolic Bzg779 ANION GAP 15 05/21/2017 Comp Metabolic Uql557 GLUCOSE 155 mg/dL 05/21/2017 Comp Metabolic Opc923 Creat 0.7 mg/dL 05/21/2017 Comp Metabolic Nqu136 eGFR 87 ml/min/1.73m2 05/21/2017 Comp Metabolic Hml944 BUN 16 mg/dL 05/21/2017 Comp Metabolic Vbw647 B/C Ratio 21.6 Ratio 05/21/2017 Comp Metabolic Twc140 CALCIUM 9.4 mg/dL 05/21/2017 Comp Metabolic Xbu634 ALK PHOS 132 U/L 05/21/2017 Comp Metabolic Vwd431 AST(SGOT) 16 U/L 05/21/2017 Comp Metabolic Qyy305 ALT(SGPT) 20 U/L 05/21/2017 Comp Metabolic Cju311 BILI T 0.4 mg/dL 05/21/2017 Comp Metabolic Mbm339 ALBUMIN 4.0 g/dL 05/21/2017 Comp Metabolic Zwf327 TPRO 6.7 g/dL 05/21/2017 Comp Metabolic Lzr967 GLOB 2.7 g/dL 05/21/2017 Comp Metabolic Wlb199 A/G Ratio 1.5 Ratio 05/21/2017 Comp Metabolic Jbj282 Osmo 284 mOsmo 05/21/2017 Cbc With Differential [...] 28.9 pg 05/21/2017 Cbc With Differential Ord2 [place]% 5.5 % 05/21/2017 Cbc With Differential Ord2 [...] 2.65 K/ul 05/21/2017 Cbc With Differential Ord2 [place] ABS# 0.8 K/ul 05/21/2017 Cbc With Differential Ord2 Eos ABS# 0.1 K/ul 05/21/2017 Cbc With Differential Ord2 Baso ABS# 0.0 K/ul 05/21/2017 Estrogens Total 389528 ESTROGENS, TOTAL 54 pg/mL 05/24/2016 Magnesium Ord90 Mag 1.8 mg/dL 05/19/2016 Tsh Ord6 hTSH II 1.56 uIU/mL 05/19/2016 Progesterone Prog 0.03 ng/mL 05/19/2016 Comp Metabolic Yxp863 NA 136 mEq/L 05/19/2016 Comp Metabolic Ahr245 K 4.3 mEq/L 05/19/2016 Comp Metabolic Mfa666 CL 100 mEq/L 05/19/2016 Comp Metabolic Ehd721 CO2 28.0 mEq/L 05/19/2016 Comp Metabolic Vko940 ANION GAP 12 05/19/2016 Comp Metabolic Yhm094 GLUCOSE 138 mg/dL 05/19/2016 Comp Metabolic Ccu074 Creat 0.7 mg/dL 05/19/2016 Comp Metabolic Rgr455 eGFR 89 ml/min/1.73m2 05/19/2016 Comp Metabolic Rhu843 BUN 15 mg/dL 05/19/2016 Comp Metabolic Kws566 B/C Ratio 20.5 Ratio 05/19/2016 Comp Metabolic Qvm183 CALCIUM 9.7 mg/dL 05/19/2016 Comp Metabolic Hyv371 ALK PHOS 106 U/L 05/19/2016 Comp Metabolic Qep203 AST(SGOT) 21 U/L 05/19/2016 Comp Metabolic Kkn345 ALT(SGPT) 24 U/L 05/19/2016 Comp Metabolic Pto579 BILI T 0.4 mg/dL 05/19/2016 Comp Metabolic Flt367 ALBUMIN 4.1 g/dL 05/19/2016 Comp Metabolic Oxn131 TPRO 7.1 g/dL 05/19/2016 Comp Metabolic Kpf348 GLOB 3.0 g/dL 05/19/2016 Comp Metabolic Zcd376 A/G Ratio 1.4 Ratio 05/19/2016 Comp Metabolic Wyw878 Osmo 275 mOsmo 05/19/2016 Cbc With Differential [...] 28.5 pg 05/19/2016 Cbc With Differential Ord2 [place]% 6.5 % 05/19/2016 Cbc With Differential Ord2 [...] 2.33 K/ul 05/19/2016 Cbc With Differential Ord2 [place] ABS# 0.6 K/ul 05/19/2016 Cbc With Differential Ord2 Eos ABS# 0.1 K/ul 05/19/2016 Cbc With Differential Ord2 Baso ABS# 0.0 K/ul 05/19/2016 C RAP A SC 1270007 Strep A Negative 02/28/2016 Tsh Ord6 hTSH [...] 26.2 pg 08/16/2015 Cbc With Differential Ord2 [place]% 7.1 % 08/16/2015 Cbc With Differential Ord2 [...] 2.32 K/ul 08/16/2015 Cbc With Differential Ord2 [place] ABS# 0.6 K/ul 08/16/2015 Cbc With Differential Ord2 Eos ABS# 0.1 K/ul 08/16/2015 Cbc With Differential Ord2 Baso ABS# 0.0 K/ul 08/16/2015 Cbc With Differential Ord2 New Analyzer Notice Please note new ref ranges starting 05-26-2015 due to implemntation of new five part differential hematolgy analyzer. 08/16/2015 Comp Metabolic Mlv347 NA 132 mEq/L 08/16/2015 Comp Metabolic Yok063 K 3.6 mEq/L 08/16/2015 Comp Metabolic Ieq231 CL 99 mEq/L 08/16/2015 Comp Metabolic Gka066 CO2 23.0 mEq/L 08/16/2015 Comp Metabolic Xri499 ANION GAP 14 08/16/2015 Comp Metabolic Ygf607 GLUCOSE 101 mg/dL 08/16/2015 Comp Metabolic Ibm631 Creat 0.7 mg/dL 08/16/2015 Comp Metabolic Tuk620 eGFR 100 ml/min/1.73m2 08/16/2015 Comp Metabolic Lwv359 BUN 10 mg/dL 08/16/2015 Comp Metabolic Awq886 B/C Ratio 15.2 Ratio 08/16/2015 Comp Metabolic Lzl435 CALCIUM 9.3 mg/dL 08/16/2015 Comp Metabolic Ecz722 ALK PHOS 100 U/L 08/16/2015 Comp Metabolic Qaq541 AST(SGOT) 14 U/L 08/16/2015 Comp Metabolic Wut504 ALT(SGPT) 11 U/L 08/16/2015 Comp Metabolic Aio991 BILI T 0.3 mg/dL 08/16/2015 Comp Metabolic Wxe782 ALBUMIN 3.9 g/dL 08/16/2015 Comp Metabolic Wnm625 TPRO 7.1 g/dL 08/16/2015 Comp Metabolic Zjc702 GLOB 3.2 g/dL 08/16/2015 Comp Metabolic Mib620 A/G Ratio 1.2 Ratio 08/16/2015 Comp Metabolic Wpl111 Osmo 264 mOsmo 08/16/2015 Lipid Ord30 CHOL 209 mg/dL 12/03/2014 Lipid Ord30 HDL 42.0 mg/dl 12/03/2014 Lipid Ord30 TRIG 219 mg/dL 12/03/2014 Lipid Ord30 LDL 123 mg/dL 12/03/2014 Lipid Ord30 C/HDL 5.0 Ratio 12/03/2014 Comp Metabolic Fev055 NA 132 mEq/L 12/03/2014 Comp Metabolic Zsq095 K 4.0 mEq/L 12/03/2014 Comp Metabolic Ccc074 CL 101 mEq/L 12/03/2014 Comp Metabolic Rez612 CO2 22.0 mEq/L 12/03/2014 Comp Metabolic Ytn443 ANION GAP 13 12/03/2014 Comp Metabolic Urh186 GLUCOSE 123 mg/dL 12/03/2014 Comp Metabolic Oey864 Creat 0.7 mg/dL 12/03/2014 Comp Metabolic Uwh788 eGFR 97 ml/min/1.73m2 12/03/2014 Comp Metabolic Upa568 BUN 10 mg/dL 12/03/2014 Comp Metabolic Otw823 B/C Ratio 14.7 Ratio 12/03/2014 Comp Metabolic Eod664 CALCIUM 9.2 mg/dL 12/03/2014 Comp Metabolic Vkd269 ALK PHOS 88 U/L 12/03/2014 Comp Metabolic Sfm909 AST(SGOT) 18 U/L 12/03/2014 Comp Metabolic Msw167 ALT(SGPT) 17 U/L 12/03/2014 Comp Metabolic Svs388 BILI T 0.5 mg/dL 12/03/2014 Comp Metabolic Lrh230 ALBUMIN 3.9 g/dL 12/03/2014 Comp Metabolic Vle394 TPRO 6.8 g/dL 12/03/2014 Comp Metabolic Oqo173 GLOB 2.9 g/dL 12/03/2014 Comp Metabolic Eyf755 A/G Ratio 1.3 Ratio 12/03/2014 Comp Metabolic Cee538 Osmo 265 mOsmo 12/03/2014 Tsh Ord6 hTSH II 1.13 uIU/mL 12/03/2014 D-Dimer D-DIMER 168 NG/ML 12/03/2014 D-Dimer 207800 COMMENT 12/03/2014 Cbc With Differential Ord2 WBC [...] Procedure Codes Date THER/PROPH/DIAG INJ SC/IM CPT-4: 83660 06/27/2017 ROCEPHIN, PER 250 MG CPT-4: J0696 06/27/2017 IMMUNIZATION ADMIN CPT -4: 79089 03/16/2017 FLU VAC NO PRSV 4 FLETCHER 3 YRS+ CPT-4: 68125 03/16/2017 Pneumococcal Polysaccharide Vaccine, 23-Valent, Ad CPT-4: 28128 03/16/2017 IMMUNIZATION ADMIN EACH ADD CPT-4: 98389 03/16/2017 TRIAMCINOLONE ACET INJ NOS CPT-4: J3301 01/11/2017 TRIAMCINOLONE ACET INJ NOS CPT-4: J3301 02/28/2016 Vital Signs Date Vital 06/19/2018 Blood Pressure 1: 124/74 Code : 8480-6 BMI: 38.6 Code : 29936-9 Heart Rate 1 : 85 bpm Height: 5'6" SpO2: 95% Weight: 239 lbs 04/24/2018 Blood Pressure 1: 128/74 Code : 8480-6 BMI: 37.8 Code : 11603-6 Heart Rate 1 : 107 bpm Height: 5'6" SpO2: 98% Weight: 234 lbs 04/17/2018 Blood Pressure 1: 120/64 Code : 8480-6 BMI: 37.8 Code : 56621-0 Heart Rate 1 : 84 bpm Height: 5'6" SpO2: 96% Weight: 234 lbs 03/14/2018 Blood Pressure 1: 140/82 Code : 8480-6 BMI: 37.8 Code : 36342-1 Heart Rate 1 : 85 bpm Height: 5'6" SpO2: 98% Weight: 234 lbs 02/27/2018 Blood Pressure 1: 142/68 Code : 8480-6 BMI: 36.5 Code : 14242-4 Heart Rate 1 : 84 bpm Height: 5'6" SpO2: 97% Weight: 226 lbs 12/19/2017 Blood Pressure 1: 130/86 Code : 8480-6 BMI: 35.7 Code : 67966-6 Heart Rate 1 : 94 bpm Height: 5'6" Weight: 221 lbs 12/04/2017 Blood Pressure 1: 138/78 Code : 8480-6 BMI: 36.6 Code : 48541-6 Heart Rate 1 : 94 bpm Height: 5'6" SpO2: 98% Weight: 227 lbs 11/20/2017 Weight: 233 lbs 09/10/2017 Blood Pressure 1: 132/86 Code : 8480-6 Heart Rate 1: 86 bpm Height: Weight: 08/14/2017 Blood Pressure 1: 120/74 Code : 8480-6 BMI: 33.9 Code : 25328-9 Heart Rate 1 : 92 bpm Height: 5'6" SpO2: 94% Weight: 210 lbs 07/31/2017 Blood Pressure 1: 140/80 Code : 8480-6 BMI: 33.9 Code : 01109-0 Heart Rate 1 : 96 bpm Height: 5'6" SpO2: 97% Weight: 210 lbs 06/27/2017 Blood Pressure 1: 128/80 Code : 8480-6 BMI: 33.9 Code : 45396-7 Heart Rate 1 : 85 bpm Height: [...] Code : 8480-6 BMI: 39.9 Code : 49321-7 Heart Rate 1 : 79 bpm Height: 5'6" SpO2: 97% Weight: 247 lbs 01/26/2017 Blood Pressure 1: 132/74 Code : 8480-6 BMI: 37.8 Code : 13241-3 Heart Rate 1 : 74 bpm Height: 5'6" SpO2: 97% Weight: 234 lbs 01/11/2017 Blood Pressure 1: 118/68 Code : 8480-6 BMI: 38.7 Code : 21017-7 Heart Rate 1 : 91 bpm Height: 5'6" SpO2: 96% Weight: 240 lbs 11/30/2016 Blood Pressure 1: 132/76 Code : 8480-6 BMI: 38.3 Code : 16139-9 Heart Rate 1 : 71 bpm Height: 5'6" SpO2: 92% Weight: 237 lbs 09/28/2016 Blood Pressure 1: 122/72 Code : 8480-6 BMI: 39.1 Code : 25445-5 Heart Rate 1 : 88 bpm Height: 5'6" SpO2: 94% Weight: 242 lbs 08/24/2016 Blood Pressure 1: 130/87 Code : 8480-6 BMI: 41.5 Code : 56749-5 Heart Rate 1 : 95 bpm Height: 5'6" Respiratory Rate: 16 bpm SpO2: 98% Temperature: 36.9 (C) / 98.5 (F ) Weight: 257 lbs 07/13/2016 Blood Pressure 1: 132/84 Code : 8480-6 BMI: 42.0 Code : 80292-9 Heart Rate 1 : 73 bpm Height: 5'6" SpO2: 97% Weight: 260 lbs 05/19/2016 Blood Pressure 1: 138/76 Code : 8480-6 BMI: 40.8 Code : 08540-1 Heart Rate 1 : 80 bpm Height: 5'6" SpO2: 98% Weight: 253 lbs 03/16/2016 Blood Pressure 1: 122/70 Code : 8480-6 BMI: 40.4 Code : 55653-3 Heart Rate 1 : 72 bpm Height: 5'6" SpO2: 98% Weight: 250 lbs 02/28/2016 Blood Pressure 1: 136/86 Code : 8480-6 BMI: 40.2 Code : 33529-4 Heart Rate 1 : 87 bpm Height: 5'6" SpO2: 96% Temperature: 36.3 (C) / 97.3 (F) Weight: 249 lbs 01/13/2016 Blood Pressure 1: 120/76 Code : 8480-6 BMI: 40.4 Code : 31900-7 Heart Rate 1 : 68 bpm Height: 5'6" SpO2: 97% Weight: 250 lbs 09/27/2015 Blood Pressure 1: 112/70 Code : 8480-6 BMI: 38.4 Code : 54546-1 Heart Rate 1 : 76 bpm Height: 5'6" SpO2: 98% Weight: 238 lbs 08/30/2015 Blood Pressure 1: 144/82 Code : 8480-6 BMI: 39.5 Code : 82006-9 Heart Rate 1 : 82 bpm Height: 5'6" SpO2: 97% Weight: 245 lbs 08/16/2015 Blood Pressure 1: 140/72 Code : 8480-6 BMI: 38.9 Code : 47000-0 Heart Rate 1 : 72 bpm Height: 5'6" SpO2: 97% Weight: 241 lbs 07/15/2015 Blood Pressure 1: 128/80 Code : 8480-6 BMI: 39.3 Code : 96119-0 Heart Rate 1 : 86 bpm Height: 5'6" SpO2: 98% Weight: 243 lbs 8 oz 06/16/2015 Blood Pressure 1: 146/86 Code : 8480-6 BMI: 39.6 Code : 53289-2 Heart Rate 1 : 76 bpm Height: 5'6" SpO2: 97% Weight: 245 lbs 8 oz 04/02/2015 Blood Pressure 1: 132/86 Code : 8480-6 BMI: 40.7 Code : 46685-8 Heart Rate 1 : 94 bpm Height: 5'6" SpO2: 98% Weight: 252 lbs 12/02/2014 Blood Pressure 1: 122/90 Code : 8480-6 BMI: 41.6 Code : 11466-9 Heart Rate 1 : 77 bpm Height: [...] data Encounters Encounter Performer Location Codes Date 13610 EST. PATIENT, LEVEL IV Diagnosis: Generalized anxiety disorder[ICD10: F41.1] Diagnosis: Major depressive disorder, single episode, moderate[ICD10: F32.1] Diagnosis: Other insomnia[ICD10: G47.09] [facility] CPT-4 : 46966 06/19/2018 40948 EST. PATIENT, LEVEL IV Diagnosis: Right upper quadrant pain[ICD10: R10.11] Diagnosis: Other chest pain[ICD10: R07.89] [facility] CPT-4 : 16535 04/24/2018 89602 EST. PATIENT, LEVEL III Diagnosis: Generalized anxiety disorder[ICD10: F41.1] Diagnosis: Major depressive disorder, recurrent, mild[ICD10: F33.0] Diagnosis: Essential (primary) hypertension[ICD10: I10] Diagnosis: Type 2 diabetes mellitus without complications[ICD10: E11.9] [facility] CPT-4: 80178 04/17/2018 63979 EST. PATIENT, LEVEL III Diagnosis: Localized edema[ICD10: R60.0] Diagnosis: Essential (primary) hypertension[ICD10: I10] Petra Trejo MD, [facility] CPT-4: 77749 03/14/2018 58248 EST. PATIENT, LEVEL III Diagnosis: Pain in left knee[ICD10: M25.562] Diagnosis: Other obesity due to excess calories[ICD10: E66.09] Diagnosis: Other insomnia[ICD10: G47.09] Diagnosis: Generalized anxiety disorder[ICD10: F41.1] Petra Trejo MD, [facility] CPT-4: 82037 02/27/2018 ([id number]) Miscellaneous no charge Diagnosis: Other obesity due to excess calories[ICD10: E66.09] Heidy Trejo MD, [facility] CPT-4: 83294 12/19/2017 66068 EST. PATIENT, LEVEL III Diagnosis: Pain in right foot[ICD10: M79.671] Diagnosis: Pain in right ankle and joints of right foot[ICD10: M25.571] Petra Trejo MD , [facility] CPT-4: 28218 12/04/2017 85249 EST. PATIENT, LEVEL III Diagnosis: Pain in left knee[ICD10: M25.562] Diagnosis: Type 2 diabetes mellitus without complications[ICD10: E11.9] Diagnosis: Other obesity due to excess calories[ICD10: E66.09] Petra Trejo MD, [facility] CPT-4: 47776 11/20/2017 81806 EST. PATIENT, LEVEL III Diagnosis: Pain in left knee[ICD10: M25.562] Petra Trejo MD, [facility] CPT -4: 31200 09/10/2017 89813 EST. PATIENT, LEVEL III Diagnosis: Encounter for follow-up examination after completed treatment for conditions other than malignant neoplasm[ICD10: Z09] Diagnosis: Pain in left knee[ICD10: M25.562] Petra Trejo MD, [facility] CPT -4: 89333 08/14/2017 87347 EST. PATIENT, LEVEL III Diagnosis: Pain in left knee[ICD10: M25.562] Petra Trejo MD, [facility] CPT -4: 89755 07/31/2017 37591 EST. PATIENT, LEVEL III Diagnosis: Acute laryngopharyngitis[ICD10: J06.0] Diagnosis: Other allergic rhinitis[ICD10: J30.89] Petra Trejo MD, [facility] CPT-4: 71870 06/27/2017 15650 EST. PATIENT, LEVEL III Diagnosis: Ganglion, left hand[ICD10: M67.442] Diagnosis: Essential (primary) hypertension[ICD10: I10] Diagnosis: Generalized anxiety disorder[ICD10: F41.1] Diagnosis: Other insomnia[ICD10: G47.09] Petra Trejo MD, [facility] CPT-4 : 07299 05/29/2017 27736 EST. PATIENT, LEVEL III Diagnosis: Essential (primary) hypertension[ICD10: I10] Diagnosis: Palpitations[ICD10: R00.2] Diagnosis: Generalized anxiety disorder[ICD10: F41.1] Petra Trejo MD, [facility] CPT-4: 18456 05/21/2017 54034 EST. PATIENT, LEVEL III Diagnosis: Pain in right foot[ICD10: M79.671] Petra Trejo MD, [facility] CPT-4: 10506 04/20/2017 31319 EST. PATIENT, LEVEL IV Diagnosis: Other insomnia[ICD10: G47.09] Diagnosis: Other skin changes[ICD10: R23.8] Petra Trejo MD, [facility] CPT- 4: 06184 01/26/2017 23276 EST. PATIENT, LEVEL IV Diagnosis: Acute bronchitis due to other specified organisms[ICD10: J20.8] Petra Trejo MD, [facility] CPT-4: 93159 01/11/2017 ([id number]) 20775 EST. PATIENT, LEVEL IV Diagnosis: Essential (primary) hypertension[ICD10: I10] Diagnosis: Other insomnia[ICD10: G47.09] Diagnosis: Primary generalized (osteo)arthritis[ICD10: M15.0] Diagnosis: Other obesity due to excess calories[ICD10: E66.09] Claudette Trejo MD, [facility] CPT-4: 04622 11/30/2016 ([id number]) 88336 EST. PATIENT, LEVEL III Diagnosis: Other obesity due to excess calories[ICD10: E66.09] Diagnosis: Other insomnia[ICD10: G47.09] Diagnosis: Generalized anxiety disorder[ICD10: F41.1] Claudette Trejo MD, [facility] CPT-4: 68136 09/28/2016 ([id number]) 22498 EST. PATIENT, LEVEL IV Diagnosis: Generalized anxiety disorder[ICD10: F41.1] Diagnosis: Major depressive disorder, recurrent, mild[ICD10: F33.0] Diagnosis: Other obesity due to excess calories[ICD10: E66.09] Diagnosis: Other insomnia[ICD10: G47.09] Claudette Trejo MD, [facility] CPT-4: 54003 08/24/2016 ([id number]) 53474 EST. PATIENT, LEVEL III Diagnosis: Other obesity due to excess calories[ICD10: E66.09] Diagnosis: Major depressive disorder, recurrent, moderate[ICD10: F33.1] Diagnosis: Low back pain[ICD10: M54.5] Heidy Trejo MD, [facility] CPT- 4: 38439 07/13/2016 32438 EST. PATIENT, LEVEL IV Diagnosis: Other muscle spasm[ICD10: M62.838] Diagnosis: Generalized anxiety disorder[ICD10: F41.1] Diagnosis: Major depressive disorder, recurrent, moderate[ICD10: F33.1] Diagnosis: Other insomnia[ICD10: G47.09] Petra Trejo MD, [facility] CPT-4 : 78266 05/19/2016 ([id number]) 76268 EST. PATIENT, LEVEL III Diagnosis: Generalized anxiety disorder[ICD10: F41.1] Diagnosis: Major depressive disorder, recurrent, moderate[ICD10: F33.1] Heidy Trejo MD, [facility] CPT-4: 88425 03/16/2016 ([id number]) 30674 EST. PATIENT, LEVEL III Diagnosis: Streptococcal pharyngitis[ICD10: J02.0] Claudette Trejo MD, [facility] CPT-4: 27757 02/28/2016 ([id number]) 74876 EST. PATIENT, LEVEL III Diagnosis: Generalized anxiety disorder[ICD10: F41.1] Diagnosis: Other obesity due to excess calories[ICD10: E66.09] Heidy Trejo MD, [facility] CPT-4: 91045 01/13/2016 ([id number]) 54534 EST. PATIENT, LEVEL III Diagnosis: Generalized anxiety disorder[ICD10: F41.1] Diagnosis: Major depressive disorder, recurrent, unspecified[ICD10: F33.9] Heidy Trejo MD, [facility] CPT-4: 35385 09/27/2015 20909 EST. PATIENT, LEVEL IV Diagnosis: Chronic pain syndrome[ICD10: G89.4] Diagnosis: Other obesity due to excess calories[ICD10: E66.09] Diagnosis: Essential (primary) hypertension[ICD10: I10] Diagnosis: Generalized anxiety disorder[ICD10: F41.1] Diagnosis: Excessive and frequent menstruation with regular cycle[ICD10: N92.0] Diagnosis: Pain in right knee[ICD10: M25.561] Petra Trejo MD, [facility] CPT-4: 32325 08/30/2015 68567 EST. PATIENT, LEVEL IV Diagnosis: Palpitations[ICD10: R00.2] Diagnosis: Other obesity due to excess calories[ICD10: E66.09] Petra Trejo MD, [facility] CPT-4: 16944 08/16/2015 ([id number]) 72581 EST. PATIENT, LEVEL IV Diagnosis: Pain in right knee[ICD10: M25.561] Diagnosis: Primary generalized (osteo)arthritis[ICD10: M15.0] Diagnosis: Acute maxillary sinusitis, unspecified[ICD10: J01.00] Heidy Trejo MD, [facility] CPT-4: 96363 07/15/2015 ([id number]) 35701 EST. PATIENT, LEVEL IV Diagnosis: Primary generalized (osteo)arthritis[ICD10: M15.0] Diagnosis: Restless legs syndrome[ICD10: G25.81] Diagnosis: Chronic pain syndrome[ICD10: G89.4] Heidy Trejo MD, [facility] CPT-4: 18671 06/16/2015 ([id number]) 23298 EST. PATIENT, LEVEL III Diagnosis: Primary generalized (osteo)arthritis[ICD10: M15.0] Diagnosis: Varicose veins of bilateral lower extremities with pain[ICD10: I83.813] [facility] CPT-4: 46004 ([id number]) OFFICE VISIT, NEW - LEVEL 3 Diagnosis: Osteoarthritis[ICD9: 715.90] Diagnosis: ABNORMAL WEIGHT GAIN[ICD9: 783.1] Diagnosis: Superficial thrombophlebitis[ICD9: 451.9] Carey Trejo MD, [facility] CPT-4: 33456 12/02/2014 Plan of Care Planned Activity Notes [...] patient. 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 04/17/2018 App[facility]ment[phone] (15 min) Moderate 04/17/2018 Patient [...] edema. 03/14/2018 Appointment[phone] (15 min) Moderate 03/14/2018 Patient [...] to ortho 02/27/2018 Appointment: Petra Rivas WPtel: [facility] (30 min) Complex 02/27/2018 Patient Education: Patient [...] improve. 12/04/2017 Appointment: [phone] (15 min) Moderate 12/04/2017 Patient [...] control. 11/20/2017 Appointment: [phone] [place] (15 min) Moderate 11/20/2017 Patient [...] not improve. 09/10/2017 Appointment: Petra Rivas WPtel: [facility] [place] (15 min) Moderate 09/10/2017 Patient Education: [...] improve. 08/14/2017 Appointment: [phone] [place] (30 min) Complex 08/14/2017 Patient Education: Patient Medication Summary Completed 08/14/2017 Appointment: [phone] [place] (15 min) Moderate 08/01/2017 Visit Plan: Knee pain - pt is to use RICE - Rest, Ice, Compression, Elevation - pt is to use crutches as directed - The pt is to use prn antiinflammatories to manage acute pain. The patient is to call the office if the pain is worsening or does not improve. 07/31/2017 Appointment: Petra Rivas WPtel: [phone] [facility] (30 min) Complex 07/31/2017 Patient Education: Patient Medication Summary Completed 07/31/2017 Care Plan: X-RAY EXAM OF KNEE [facility] : 32409-3 Pending 07/31/2017 Visit Plan: URI - Pt [...] allergy spray. 06/27/2017 Appointment: Petra Rivas WPtel: [facility] (15 min) Moderate 06/27/2017 Patient Education: Patient Medication Summary Completed 06/27/2017 Referral: Jignesh Quinn [facility] Patient informed. Referral info faxed. [...] Quinn 05/29/2017 Appointment: Petra Rivas WPtel: [phone] [facility] (15 min) Moderate 05/29/2017 Patient Education: Patient Medication Summary Completed 05/29/2017 Care Plan: Referral Order SNOMED-CT : [id number] Pending 05/29/2017 Appointment: Pet[facility]ivas [facility]Ptel[facility] (15 min) Moderate 05/28/2017 Visit Plan: [...] acute concerns. 05/21/2017 Appointment: Pet[facility]ivas WPtel: [facility] [place] (15 min) Moderate 05/21/2017 Patient Education: Patient Medication Summary Completed 05/21/2017 Visit Plan: Right heel pain - will send RX, pt is to do stretches as directed - The pt is to use prn antiinflammatories to manage acute pain. The patient is to call the office if the pain is worsening or does not improve. 04/20/2017 Appointment: Petra Rivas WPtel: [facility] [place] (30 min) Complex 04/20/2017 Patient Education: Patient Medication Summary Completed 04/20/2017 Appointment: Petra Rivas WPtel: [phone] [facility] (30 min) Complex 03/29/2017 Patient Education: Patient Medication Summary Completed 03/16/2017 Referral: Maycol Quijano Referral Initiated 02/08/2017 Care Plan: Referral Order SNOMED-CT : [id number] Pending 01/28/2017 Visit Plan: Insomnia - Pt [...] concerns. 01/26/2017 Appointment: Petra Rivas WPtel: [phone] [facility] (30 min) Complex 01/26/2017 Patient Education: Patient [...] worsen. 01/11/2017 Appointment: Petra Rivas WPtel: [phone] [facility] (15 min) Moderate 01/11/2017 Patient Education: Patient [...] on use. 11/30/2016 Appointment: Claudette Savage WPtel: [address] [place] [address] (15 min) Moderate 11/30/2016 Patient Education: Patient Medication Summary Completed 11/30/2016 Patient Education: Obesity Completed 11/30/2016 Care Plan: BMI Above normal followup SELF-MGMT EDUC & TRAIN 1 PT Pending 2016 Visit Plan: Bulpinc-enwfpvowhz-kswujvny with increase in cymbalta-no changes Insomnia-RX for belsomra provided and instructed on use Obesity-patient down 15#-no changes-continue diet/exercise-follow up in 2 months 09/28/2016 Appointment: Claudette Savage WPtel: [address] [place] [address] (15 min) Moderate 09/28/2016 Patient Education: Patient Medication Summary Completed 09/28/2016 Patient Education: Obesity Completed 09/28/2016 Care Plan: BMI Above normal followup SELF-MGMT EDUC & TRAIN 1 PT Pending 2016 Visit Plan: Dfwdvuo-knrqbptfii-acspmbvp-increase cymbalta to 60mg daily. Increase xanax as [...] for insomnia/anxiety 08/24/2016 Appointment: Claudette Savage WPtel: [address] [place], [place] [phone] (15 min) Moderate 08/24/2016 Patient Education: Patient [...] improving. 07/13/2016 Appointment: Heidy Trejo WPtel: [phone] [facility] (15 min) Moderate 07/13/2016 Patient Education: [...] insomnia. 05/19/2016 Appointment: Petra Rivas WPtel: [phone] [facility] (30 min) Complex 05/19/2016 Patient Education: Patient [...] patient. 03/16/2016 Appointment: Heidy Trejo WPtel: [phone] [facility] (15 min) Moderate 03/16/2016 Patient [...] swab. 02/28/2016 Appointment: Claudette Savage WPtel: [phone] [phone] (10 min) Simple 02/28/2016 Patient Education: Patient [...] [phone] (15 min) Moderate 01/13/2016 Patient Education: [...] 09/27/2015 Care Plan: Referral Order SNOMED-CT : [id number] Pending 08/31/2015 Visit Plan: Anxiety - the [...] pain symptoms. 07/15/2015 Appointment: Heidy Trejo [facility]Ptel: [facility] (15 min) Moderate 07/15/2015 Patient Education: [...] vein clinic 04/02/2015 Appointment: Claudette Savage WPtel: [phone] (15 min) Moderate 04/02/2015 Patient Education: [...] Summary Completed 12/02/2014 Referral: Belle Hoffman WPtel: [facility] they will call and set the appt with her Initiated Referral: Maycol Quijano Referral Initiated Referral: Belle Hoffman WPtel: [phone] Referral Initiated Referral: Jignesh Quinn [facility] [place] Referral Initiated Instructions Comment . Arthritis- occasionally [...] is to call for acute concerns. . Left knee pain - ongoing [...] been appropriately prescribed for this patient. . Right ankle/heel pain - the patient [...] to allow for greater blood glucose control. Increase Cymbalta from 30 mg/day to 60 mg/day Start Victoza 0.6 mg/day for one week, then increase to 1.2 mg/day for one week , then increase to 1.8 mg/day Patient states understanding of administration instructions. Refill Xanax 1 mg at night for anxiety . Usnkavw-bazsyzhxdy-juttbixw-increase cymbalta to 60mg daily. 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 Chronic Depression and anxiety - the [...] with any changes , questions, or concerns. Breathing treatments 3 times a day [...] if symptoms acutely worsen. . Anxiety and Depression - uncontrolled - [...] worsening or does not improve. BELSOMRA . Kpjtzay-kkxwahustl-rpiwvuni with increase in cymbalta-no changes Insomnia-RX for [...] check. Knee pain - defer to ortho [facility] . Strep throat - pt give rx for antibiotic - sent to pharmacy - pt had swab of throat today - will culture the swab. [facility] . Strep throat - pt give rx for antibiotic - sent to pharmacy - pt had swab of throat today - will culture the swab. . Hospital follow up - This was [...] spray in the nasal steroid allergy spray. glucosamine and chondroiton - joint ease, joint [...]
[2018-07-24 23:19] LABS: INR 0.8 (0.8-1.4); PROTHROMBIN TIME PATIENT 11.3 SEC (12.2-14.7)
--- OUTSIDE RECORDS SUMMARY | 2018-07-24 23:19 | XMS REPORT | CCD ---
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 Role Phone PP Unavailable CCM Unavailable Summary Purpose Interface Exchange Insurance Providers Payer name Policy type / Coverage type Covered constitution party ID Effective Begin Date Effective End Date [facility] Commercial Insurance [id number] Unknown Family history Brother Diagnosis Age At [...] Description Effective Dates Tobacco history SNOMED CT: 3597218 Quit less than 5 years ago 04/02/2015 Alcohol history Unknown occasionally drinks alcohol 04/02/2015 Marital status Unknown Manuel Vitale 12/02/2014 Number of children Unknown 3 12/02/2014 Allergies, Adverse Reactions, Alerts Substance Reaction Codes Entered Date Inactivated Date Status * NO KNOWN FOOD ALLERGIES Unknown 12/02/2014 No Inactive Date Active Penicillin Unknown 12/02/2014 No Inactive Date Active tramadol RxNorm: 69912 12/02/2014 No Inactive Date Active Past Medical History Illness Codes Condition Status Onset Date Resolved Date Other chest pain ICD-9 : 786.59 ICD-10: R07.89 Active 04/24/2018 Unknown Right upper quadrant pain ICD-9: 789.01 ICD-10: R10.11 Active 04/24/2018 Unknown Essential (primary) hypertension ICD-9: 401.1 ICD-10: I10 Active 03/14/2018 Unknown Generalized anxiety disorder ICD-9: 300.00 ICD-10: F41.1 Active 05/21/2017 Unknown Major depressive disorder, recurrent, mild ICD-9: 296.31 ICD-10: F33.0 Active 08/24/2016 Unknown Type 2 diabetes mellitus without complications ICD-9: 250.00 ICD-10: E11.9 Active 11/20/2017 Unknown Localized edema ICD-9 : 782.3 ICD-10: R60.0 Active 03/14/2018 Unknown Generalized anxiety disorder ICD-9: 300.02 ICD-10: F41.1 Active 08/24/2016 Unknown Other insomnia ICD-9: 327.09 ICD-10: G47.09 Active 05/18/2016 Unknown Other obesity due to excess calories [...] Problems Condition Codes Effective Dates Condition Status Other chest pain ICD-9 : 786.59 ICD-10: R07.89 04/24/2018 Active Right upper quadrant pain ICD-9: 789.01 ICD-10: R10.11 04/24/2018 Active Essential (primary) hypertension ICD-9: 401.1 ICD-10: I10 03/14/2018 Active Generalized anxiety disorder ICD-9: 300.00 ICD-10: F41.1 05/21/2017 Active Major depressive disorder, recurrent, mild ICD-9: 296.31 ICD-10: F33.0 08/24/2016 Active Type 2 diabetes mellitus without complications ICD-9: 250.00 ICD-10: E11.9 11/20/2017 Active Localized edema ICD-9 : 782.3 ICD-10: R60.0 03/14/2018 Active Generalized anxiety disorder ICD-9: 300.02 ICD-10: F41.1 08/24/2016 Active Other insomnia ICD-9: 327.09 ICD-10: G47.09 05/18/2016 Active Other obesity due to excess calories [...] Start Date Stop Date Status Fill Instructions gabapentin 300 mg capsule RxNorm: 540565 1 CAPSULE(S) PO TID 08/12/2018 Active Ambien 10 mg tablet RxNorm: 947280 1 Tablet(s) PO QHS as needed insomnia 06/10/2018 09/07/2018 Active Cymbalta 30 mg capsule,delayed release RxNorm: 523048 1 Capsule(s) PO daily to be taken with 60mg to=90mg 06/03/20182018 Active Cymbalta 30 mg capsule,delayed release RxNorm: 491109 1 Capsule(s) PO daily 06/03/2018 06/02/2018 Inactive Protonix 40 mg tablet,delayed release RxNorm: 863965 1 TABLET(S) PO DAILY 05/20/2018 09/16/2018 Active gabapentin 300 mg capsule RxNorm: 504172 1 CAPSULE(S) PO TID 06/13/2018 Inactive Protonix 40 mg tablet,delayed release RxNorm: 150678 1 Tablet(s) PO daily 04/24/2018 05/19/2018 Inactive Zorvolex 35 mg capsule RxNorm: 2566179 TAKE 1 CAPSULE BY MOUTH THREE (3) TIMES DAILY 04/22/2018 08/19/2018 Active hydrochlorothiazide 25 mg tablet RxNorm: 039573 1 TABLET(S) PO DAILY 04/08/2018 07/06/2018 Active Zorvolex 35 mg capsule RxNorm: 2509408 TAKE 1 CAPSULE BY MOUTH THREE (3) TIMES DAILY 03/27/2018 04/21/2018 Inactive gabapentin 300 mg capsule RxNorm: 322328 1 CAPSULE(S) PO TID 04/14/2018 Inactive hydrochlorothiazide 25 mg tablet RxNorm: 414434 1 Tablet(s) PO daily 03/14/2018 04/07/2018 Inactive Cymbalta 60 mg capsule,delayed release RxNorm: 687143 1 Capsule(s) PO daily TAKE 1 CAPSULE BY MOUTH DAILY 02/27/20182019 Active Victoza 2-Marek 0.6 mg/0.1 mL (18 mg/3 mL) subcutaneous pen injector RxNorm: 220574 Milligram(s) INJECT 1.8 MG SUB-Q ONCE DAILY 02/27/2018 08/20/2019 Active qty sufficient Xanax 1 mg tablet RxNorm: 992996 1-2 Tablet(s) PO QHS as needed insomnia 02/27/2018 05/27/2018 Inactive atorvastatin 20 mg tablet RxNorm: 083737 1 Tablet(s) PO daily 02/27/2018 05/22/2019 Active Cymbalta 60 mg capsule,delayed release RxNorm: 072145 TAKE 1 CAPSULE BY MOUTH DAILY 02/27/2018 02/26/2018 Inactive gabapentin 300 mg capsule RxNorm: 664835 1 Capsule(s) PO TID 03/24/2018 Inactive meloxicam 7.5 mg tablet RxNorm: 202928 1 Tablet(s) PO daily 1 TABLET(S) PO DAILY 02/27/2018 04/14/2018 Inactive Ambien 10 mg tablet RxNorm: 202092 1 Tablet(s) PO QHS as needed insomnia 02/27/2018 05/25/2018 Inactive atorvastatin 20 mg tablet RxNorm: 772780 1 Tablet(s) PO daily 02/05/2018 02/26/2018 Inactive atorvastatin 20 mg tablet RxNorm: 293685 1 Tablet(s) PO daily 02/05/2018 02/04/2018 Inactive meloxicam 7.5 mg tablet RxNorm: 795163 1 TABLET(S) PO DAILY 02/26/2018 Inactive oxycodone 15 mg tablet RxNorm: 5559896 1 Tablet(s) PO QID as needed 01/07/2018 02/19/2018 Inactive lactulose 20 gram/30 mL oral solution RxNorm: 663347 15-30 Milliliter(s) PO BID as needed 12/31/2017 02/20/2018 Inactive meloxicam 7.5 mg tablet RxNorm: 746968 1 TABLET(S) PO DAILY 06/201701/31/2018 Inactive Zorvolex 35 mg capsule RxNorm: 9509488 1 Capsule(s) PO TID 06/201702/20/2018 Inactive Ambien 10 mg tablet RxNorm: 212985 1 Tablet(s) PO QHS as needed insomnia 12/04/2017 02/26/2018 Inactive oxycodone 15 mg tablet RxNorm: 9286110 1 Tablet(s) PO QID as needed 12/04/2017 01/06/2018 Inactive prednisone 20 mg tablet RxNorm: 664964 2 Tablet(s) PO daily 12/08/2017 Inactive Victoza 2-Marek 0.6 mg/0.1 mL (18 mg/3 mL) subcutaneous pen injector RxNorm: 322380 Milligram(s) INJECT 1.8 MG SUB-Q ONCE DAILY 11/20/2017 02/26/2018 Inactive meloxicam 7.5 mg tablet RxNorm: 837684 1 Tablet(s) PO daily 02/201812/12/2017 Inactive phentermine 37.5 mg tablet RxNorm: 192329 1 Tablet(s) PO daily 11/20/2017 12/19/2017 Inactive Ambien 10 mg tablet RxNorm: 326391 1 Tablet(s) PO QHS as needed insomnia 11/20/2017 12/18/2017 Inactive Xanax 1 mg tablet RxNorm: 606093 1.5 Tablet(s) PO QHS as needed insomnia 11/20/2017 02/26/2018 Inactive hydrocodone 7.5 mg-acetaminophen 325 mg tablet RxNorm: 934740 1 Tablet(s) PO TID as needed 11/16/2017 01/06/2018 Inactive Cymbalta 60 mg capsule,delayed release RxNorm: 532617 TAKE 1 CAPSULE BY MOUTH DAILY 11/02/2017 02/26/2018 Inactive Xanax 1 mg tablet RxNorm: 375432 1 Tablet(s) PO BID PRN as needed anxiety 10/04/2017 11/19/2017 Inactive Victoza 2-Marek 0.6 mg/0.1 mL (18 mg/3 mL) subcutaneous pen injector RxNorm: 817663 INJECT 1.8 MG SUB-Q ONCE DAILY 10/04/2017 11/19/2017 Inactive hydrocodone 7.5 mg-acetaminophen 325 mg tablet RxNorm: 810783 1 Tablet(s) PO TID as needed 09/17/2017 11/15/2017 Inactive hydrocodone 7.5 mg-acetaminophen 325 mg tablet RxNorm: 231158 1 Tablet(s) PO TID as needed 09/10/2017 09/16/2017 Inactive prednisone 10 mg tablet RxNorm: 016611 Tablet(s) PO 09/10/2017 11/13/2017 Inactive 6, 5,4,3,2,1 Zorvolex 35 mg capsule RxNorm: 4191029 1 Capsule(s) PO TID 11/13/2017 Inactive Ambien 10 mg tablet RxNorm: 501039 1 Tablet(s) PO QHS as needed insomnia 08/29/2017 11/19/2017 Inactive Zorvolex 35 mg capsule RxNorm: 2730267 1 Capsule(s) PO TID 09/06/2017 Inactive Zorvolex 35 mg capsule RxNorm: 0740254 1 Capsule(s) PO TID 06/201708/27/2017 Inactive Zorvolex 35 mg capsule RxNorm: 2806037 1 Capsule(s) PO TID 06/201708/12/2017 Inactive prednisone 20 mg tablet RxNorm: 692417 2 Tablet(s) PO daily 08/04/2017 Inactive hydrocodone 7.5 mg-acetaminophen 325 mg tablet RxNorm: 702714 1 Tablet(s) PO TID as needed 07/31/2017 09/09/2017 Inactive Zorvolex 35 mg capsule RxNorm: 1363453 1 Capsule(s) PO TID as needed 07/31/2017 11/13/2017 Inactive ceftriaxone 500 mg solution for injection RxNorm: 7432355 1 Milliliter(s) Inj 06/27/2017 06/27/2017 Inactive Keflex 500 mg capsule RxNorm: 106664 1 Capsule(s) PO TID 201707/03/2017 Inactive Ambien 10 mg tablet RxNorm: 534184 1 Tablet(s) PO daily 201708/25/2017 Inactive tramadol 50 mg tablet RxNorm: 438801 1 Tablet(s) PO TID as needed 05/29/2017 07/27/2017 Inactive Xanax 1 mg tablet RxNorm: 673837 1 Tablet(s) PO BID PRN as needed anxiety 05/21/2017 10/03/2017 Inactive alprazolam 1 mg tablet RxNorm: 007566 1 Tablet(s) PO BID as needed 05/21/2017 06/19/2017 Inactive Celebrex 200 mg capsule RxNorm: 496668 1 CAPSULE(S) PO BID 11/05/2017 Inactive prednisone 20 mg tablet RxNorm: 147673 2 Tablet(s) PO daily 12/201604/24/2017 Inactive Ambien 10 mg tablet RxNorm: 850852 Tablet(s) PO 04/20/2017 05/28/2017 Inactive hydrocodone 5 mg-acetaminophen 325 mg tablet RxNorm: 913777 1 Tablet(s) PO QID as needed 04/20/2017 08/01/2017 Inactive Cymbalta 60 mg capsule,delayed release RxNorm: 068980 1 Capsule(s) PO daily 04/20/2017 02/26/2018 Inactive Victoza 2-Marek 0.6 mg/0.1 mL (18 mg/3 mL) subcutaneous pen injector RxNorm: 410365 INJECT 1.8 MG SUB-Q ONCE DAILY 03/26/2017 09/21/2017 Inactive diazepam 2 mg tablet RxNorm: 894506 1 Tablet(s) PO QHS as needed insomnia 01/28/2017 05/07/2017 Inactive Victoza 2-Marek 0.6 mg/0.1 mL (18 mg/3 mL) subcutaneous pen injector RxNorm: 160822 1.8 Milligram(s) SQ daily 01/26/201703/25 Inactive dispense quantity sufficient Tussionex Pennkinetic ER 10 mg-8 mg/5 mL suspension, extended release RxNorm: 0466188 5 Milliliter(s) PO BID 01/11/2017 01/15/2017 Inactive Xanax 1 mg tablet RxNorm: 385583 1 Tablet(s) PO BID PRN as needed anxiety 01/11/2017 05/20/2017 Inactive Zithromax Z-Marek 250 mg tablet RxNorm: 759485 1 Tablet(s) PO UD 01/11/2017 01/15/2017 Inactive zpack albuterol sulfate 2.5 mg/3 mL (0.083 %) solution for nebulization RxNorm: 886192 3 Milliliter(s) INH UD 01/11/201707/2017 Inactive prednisone 20 mg tablet RxNorm: 214334 2 Tablet(s) PO daily 01/15/2017 Inactive Kenalog 40 mg/mL suspension for injection RxNorm: 1229215 1.5 Milliliter(s) Inj 01/11/2017 01/11/2017 Inactive Celebrex 200 mg capsule RxNorm: 239628 1 Capsule(s) PO BID 02/27/2017 Inactive Ambien 5 mg tablet RxNorm: 564994 1 Tablet(s) PO HS PRN 11/3008/07/2017 Inactive trazodone 50 mg tablet RxNorm: 950645 1/2 to 1 Tablet(s) PO QHS 10/13/2016 10/12/2016 Inactive trazodone 50 mg tablet RxNorm: 968557 1/2 to 1 Tablet(s) PO QHS 10/13/2016 11/29/2016 Inactive Belsomra 10 mg tablet RxNorm: 0094077 1 Tablet(s) PO QHS 201611/29/2016 Inactive may increase to 20mg if 10mg not effective Cymbalta 60 mg capsule,delayed release RxNorm: 332495 1 Capsule(s) PO daily 08/24/2016 03/21/2017 Inactive Xanax 1 mg tablet RxNorm: 288928 1 Tablet(s) PO BID PRN as needed anxiety 08/24/2016 01/10/2017 Inactive Victoza 2-Marek 0.6 mg/0.1 mL (18 mg/3 mL) subcutaneous pen injector RxNorm: 802255 Milligram(s) SQ 08/24/2016 08/23/2016 Inactive Victoza 2-Marek 0.6 mg/0.1 mL (18 mg/3 mL) subcutaneous pen injector RxNorm: 398237 1.8 Milligram(s) SQ 08/24/2016 01/25/2017 Inactive Vitamin D2 50,000 unit capsule RxNorm: 694822 1 Capsule(s) PO QW 07/13/2016 10/10/2016 Inactive Cymbalta 30 mg capsule,delayed release RxNorm: 037283 1 Capsule(s) PO daily 07/13/2016 08/23/2016 Inactive Belviq XR 20 mg tablet,extended release RxNorm: 9031917 1 Tablet(s) PO daily 05/30/2016 05/29/2016 Inactive prednisone 20 mg tablet RxNorm: 402364 2 Tablet(s) PO daily 06/03/2016 Inactive prednisone 20 mg tablet RxNorm: 199432 2 Tablet(s) PO daily 05/29/2016 Inactive Belviq XR 20 mg tablet,extended release RxNorm: 1977337 1 Tablet(s) PO daily 05/30/2016 06/28/2016 Inactive cyclobenzaprine 5 mg tablet RxNorm: 307752 1-2 Tablet(s) PO TID as needed 05/19/2016 05/23/2016 Inactive metoprolol succinate ER 25 mg tablet,extended release 24 hr RxNorm: 572360 1 Tablet(s) PO QPM 04/10/2016 04/13/2016 Inactive metoprolol succinate ER 25 mg tablet,extended release 24 hr RxNorm: 822291 1 Tablet(s) PO QPM 04/10/2016 04/09/2016 Inactive escitalopram 10 mg tablet RxNorm: 104527 1 Tablet(s) PO daily 03/16/2016 07/12/2016 Inactive estradiol 1 mg tablet RxNorm: 675184 1 Tablet(s) PO every other day 03/16/2016 05/15/2016 Inactive Kenalog 40 mg/mL suspension for injection RxNorm: 1382858 Milliliter(s) Inj 02/28/2016 02/28/2016 Inactive Zithromax Z-Marek 250 mg tablet RxNorm: 555906 1 Tablet(s) PO UD 02/28/2016 03/03/2016 Inactive zpack Lexapro 10 mg tablet RxNorm: 854155 1 Tablet(s) PO daily 201502/27/2016 Inactive Lexapro 10 mg tablet RxNorm: 488950 1 Tablet(s) PO daily 201509/26/2015 Inactive Vimovo 500 mg-20 mg tablet,immediate and delay release RxNorm: 204188 1 Tablet(s) PO BID as needed for pain 08/30/201509/25 Inactive azithromycin 250 mg tablet RxNorm: 801702 1 Tablet(s) PO UD 2 pills on day #1, then one pill daily x 4 days 07/15/2015 Inactive hydrocodone 10 mg-acetaminophen 325 mg tablet RxNorm: 583751 1 Tablet(s) PO QID 06/16/2015 01/12/2016 Inactive pramipexole 0.5 mg tablet RxNorm: 983686 1 Tablet(s) PO QPM 07/201507/14/2015 Inactive Celebrex 200 mg capsule RxNorm: 890909 1 Capsule(s) PO daily 05/02/2015 Inactive Celebrex 200 mg capsule RxNorm: 224633 1 Capsule(s) PO daily 01/12/2016 Inactive hydrocodone 7.5 mg-acetaminophen 325 mg tablet RxNorm: 733329 1 Tablet(s) PO Q6 PRN 05/03/2015 06/15/2015 Inactive Mobic 15 mg tablet RxNorm: 062859 1 Tablet(s) PO daily 201405/02/2015 Inactive hydrocodone 7.5 mg-acetaminophen 325 mg tablet RxNorm: 788544 1 Tablet(s) PO Q6 PRN 04/02/2015 05/02/2015 Inactive hydrocodone 5 mg-acetaminophen 325 mg tablet RxNorm: 479522 1 Tablet(s) PO Q6 as needed 12/11/2014 04/01/2015 Inactive Pennsaid 1.5 % topical drops RxNorm: 713083 40 Drop(s) TOP QID as needed 12/07/2014 02/04/2015 Inactive Apply 40 drops to each knee joint 4 times per day as needed for osteoarthritis pain estradiol 1 mg tablet RxNorm: 911102 1 Tablet(s) PO QHS No Start Date 03/15/2016 Inactive Xanax 0.5 mg tablet RxNorm: 013906 1 Tablet(s) PO Q6 as needed anxiety No Start Date 08/23/2016 Inactive Tylenol Extra Strength 500 mg tablet RxNorm: 728173 3 Tablet(s) PO BID after breakfast and after lunch No Start Date Inactive lactulose 20 gram/30 mL oral solution RxNorm: 463575 15-30 Milliliter(s) PO BID as needed No Start Date 12/30/2017 Inactive hydrocodone 5 mg-acetaminophen 325 mg tablet RxNorm: 418782 1 Tablet(s) PO Q6 as needed No Start Date 12/10/2014 Inactive Phenergan-Codeine syrup RxNorm: 5-10 Milliliter(s) PO QID as needed No Start Date 11/13/2017 Inactive ibuprofen 200 mg capsule RxNorm: 199376 4 Capsule(s) PO QID as needed No Start Date 04/01/2015 Inactive Medication Administered Medication Codes Instructions Start Date Status ceftriaxone 500 mg solution for injection RxNorm: 8925583 1Milliliter 06/27/2017 No longer Active Kenalog 40 mg/mL suspension for injection RxNorm: 2059534 1.5Milliliter 01/11/2017 No longer Active Kenalog 40 mg/mL suspension for injection RxNorm: 6107439 Milliliter 02/28/2016 No longer Active Immunizations Vaccine Codes Date Status Influenza CVX: 141 03/16/2017 completed Pneumococcal (Adult) CVX: 33 03/16/2017 completed Assessments Condition Codes Effective Dates Right upper quadrant pain ICD-10: R10.11 ICD-9: 789.01 04/24/2018 Other chest pain ICD-10: R07.89 ICD-9: 786.59 04/24/2018 Type 2 diabetes mellitus without complications ICD-10: E11.9 ICD-9: 250.00 04/17/2018 Essential (primary) hypertension ICD-10: I10 ICD-9: 401.1 04/17/2018 Major depressive disorder, recurrent, mild ICD-10: F33.0 ICD-9: 296.31 04/17/2018 Generalized anxiety disorder ICD-10: F41.1 ICD-9: 300.00 04/17/2018 Localized edema ICD-10: R60.0 ICD-9: 782.3 03/14/2018 Generalized anxiety disorder ICD-10: F41.1 ICD-9: 300.02 02/27/2018 Other insomnia ICD-10: G47.09 ICD-9: 327.09 02/27/2018 Pain in left knee ICD-10: M25.562 ICD-9: 719.46 02/27/2018 Other obesity due to excess calories ICD-10: E66.09 ICD-9: 278.00 02/27/2018 Pain in right foot ICD-10: M79.671 ICD-9: 729.5 12/04/2017 Pain in right ankle and joints of right foot ICD-10: M25.571 ICD-9: 719.47 12/04/2017 Encounter for follow-up examination after completed [...] Visit Reason For Visit Effective Dates Notes chest pain/pressure 04/24/2018 medication follow up 04/17/2018 [...] Code Item Item Code Result Date %Hba1C Cvt782 % HbA1c 23767-4 6.7 % 11/20/2017 %Hba1C Csd931 Gluc Ave 146 mg/dL 11/20/2017 Free T4 Vii881 FREE T4 0.76 ng/dL 05/21/2017 Tsh Ord6 hTSH II 1.27 uIU/mL 05/21/2017 Comp Metabolic Qum973 NA 140 mEq/L 05/21/2017 Comp Metabolic Ivx881 K 3.9 mEq/L 05/21/2017 Comp Metabolic Qqu029 CL 101 mEq/L 05/21/2017 Comp Metabolic Fvu437 CO2 28.0 mEq/L 05/21/2017 Comp Metabolic Tjb659 ANION GAP 15 05/21/2017 Comp Metabolic Itw675 GLUCOSE 155 mg/dL 05/21/2017 Comp Metabolic Qix249 Creat 0.7 mg/dL 05/21/2017 Comp Metabolic Dml191 eGFR 87 ml/min/1.73m2 05/21/2017 Comp Metabolic Isq919 BUN 16 mg/dL 05/21/2017 Comp Metabolic Wux388 B/C Ratio 21.6 Ratio 05/21/2017 Comp Metabolic Ouo817 CALCIUM 9.4 mg/dL 05/21/2017 Comp Metabolic Zzq863 ALK PHOS 132 U/L 05/21/2017 Comp Metabolic Kwc951 AST(SGOT) 16 U/L 05/21/2017 Comp Metabolic Wrd092 ALT(SGPT) 20 U/L 05/21/2017 Comp Metabolic Gzc901 BILI T 0.4 mg/dL 05/21/2017 Comp Metabolic Luv931 ALBUMIN 4.0 g/dL 05/21/2017 Comp Metabolic Wgs807 TPRO 6.7 g/dL 05/21/2017 Comp Metabolic Uav206 GLOB 2.7 g/dL 05/21/2017 Comp Metabolic Rvu769 A/G Ratio 1.5 Ratio 05/21/2017 Comp Metabolic Mjs020 Osmo 284 mOsmo 05/21/2017 Cbc With Differential Ord2 WBC 14.12 K/ul 05/21/2017 Cbc With Differential Ord2 RBC 5.29 M/ul 05/21/2017 Cbc With Differential Ord2 HGB 15.3 g/dl 05/21/2017 Cbc With Differential Ord2 Neut% 74.9 % 05/21/2017 Cbc With Differential Ord2 HCT 46.4 % 05/21/2017 Cbc With Differential Ord2 MCV 87.7 fl 05/21/2017 Cbc With Differential Ord2 Lymph% 18.8 % 05/21/2017 Cbc With Differential Ord2 Meigs% 5.5 % 05/21/2017 Cbc With Differential Ord2 [...] 2.65 K/ul 05/21/2017 Cbc With Differential Ord2 Meigs ABS# 0.8 K/ul 05/21/2017 Cbc With Differential Ord2 Eos ABS# 0.1 K/ul 05/21/2017 Cbc With Differential Ord2 Baso ABS# 0.0 K/ul 05/21/2017 Estrogens Total 428367 ESTROGENS, TOTAL 54 pg/mL 05/24/2016 Cbc With Differential Ord2 WBC 8.76 K/ul 05/19/2016 Cbc With Differential Ord2 RBC 4.98 M/ul 05/19/2016 Cbc With Differential Ord2 HGB 14.2 g/dl 05/19/2016 Cbc With Differential Ord2 HCT 43.1 % 05/19/2016 Cbc With Differential Ord2 Neut% 65.9 % 05/19/2016 Cbc With Differential Ord2 Lymph% 26.6 % 05/19/2016 Cbc With Differential Ord2 MCV 86.5 fl 05/19/2016 Cbc With Differential Ord2 Meigs% 6.5 % 05/19/2016 Cbc With Differential Ord2 [...] 2.33 K/ul 05/19/2016 Cbc With Differential Ord2 Meigs ABS# 0.6 K/ul 05/19/2016 Cbc With Differential Ord2 Eos ABS# 0.1 K/ul 05/19/2016 Cbc With Differential Ord2 Baso ABS# 0.0 K/ul 05/19/2016 Comp Metabolic Lfz555 NA 136 mEq/L 05/19/2016 Comp Metabolic Ayq783 K 4.3 mEq/L 05/19/2016 Comp Metabolic Btk654 CL 100 mEq/L 05/19/2016 Comp Metabolic Nuc377 CO2 28.0 mEq/L 05/19/2016 Comp Metabolic Omj072 ANION GAP 12 05/19/2016 Comp Metabolic Gvu302 GLUCOSE 138 mg/dL 05/19/2016 Comp Metabolic Pne509 Creat 0.7 mg/dL 05/19/2016 Comp Metabolic Ofg046 eGFR 89 ml/min/1.73m2 05/19/2016 Comp Metabolic Npv311 BUN 15 mg/dL 05/19/2016 Comp Metabolic Bpy869 B/C Ratio 20.5 Ratio 05/19/2016 Comp Metabolic Blj453 CALCIUM 9.7 mg/dL 05/19/2016 Comp Metabolic Kek614 ALK PHOS 106 U/L 05/19/2016 Comp Metabolic Bxv937 AST(SGOT) 21 U/L 05/19/2016 Comp Metabolic Spq822 ALT(SGPT) 24 U/L 05/19/2016 Comp Metabolic Gzh722 BILI T 0.4 mg/dL 05/19/2016 Comp Metabolic Qwf888 ALBUMIN 4.1 g/dL 05/19/2016 Comp Metabolic Sls948 TPRO 7.1 g/dL 05/19/2016 Comp Metabolic Xdp400 GLOB 3.0 g/dL 05/19/2016 Comp Metabolic Pwr271 A/G Ratio 1.4 Ratio 05/19/2016 Comp Metabolic Qms917 Osmo 275 mOsmo 05/19/2016 Progesterone Prog 0.03 ng/mL 05/19/2016 Tsh Ord6 hTSH II 1.56 uIU/mL 05/19/2016 Magnesium Ord90 Mag 1.8 mg/dL 05/19/2016 C RAP A SC 0187271 Strep A Negative 02/28/2016 Tsh Ord6 hTSH [...] 26.2 pg 08/16/2015 Cbc With Differential Ord2 Meigs% 7.1 % 08/16/2015 Cbc With Differential Ord2 [...] 2.32 K/ul 08/16/2015 Cbc With Differential Ord2 Meigs ABS# 0.6 K/ul 08/16/2015 Cbc With Differential Ord2 Eos ABS# 0.1 K/ul 08/16/2015 Cbc With Differential Ord2 Baso ABS# 0.0 K/ul 08/16/2015 Cbc With Differential Ord2 New Analyzer Notice Please note new ref ranges starting 05-26-2015 due to implemntation of new five part differential hematolgy analyzer. 08/16/2015 Comp Metabolic Ale201 NA 132 mEq/L 08/16/2015 Comp Metabolic Inm441 K 3.6 mEq/L 08/16/2015 Comp Metabolic Eza850 CL 99 mEq/L 08/16/2015 Comp Metabolic Ulw214 CO2 23.0 mEq/L 08/16/2015 Comp Metabolic Xuw388 ANION GAP 14 08/16/2015 Comp Metabolic Gea587 GLUCOSE 101 mg/dL 08/16/2015 Comp Metabolic Kzo511 Creat 0.7 mg/dL 08/16/2015 Comp Metabolic Eyu913 eGFR 100 ml/min/1.73m2 08/16/2015 Comp Metabolic Flj166 BUN 10 mg/dL 08/16/2015 Comp Metabolic Ges640 B/C Ratio 15.2 Ratio 08/16/2015 Comp Metabolic Hsu898 CALCIUM 9.3 mg/dL 08/16/2015 Comp Metabolic Vfe580 ALK PHOS 100 U/L 08/16/2015 Comp Metabolic Wwy193 AST(SGOT) 14 U/L 08/16/2015 Comp Metabolic Yrc999 ALT(SGPT) 11 U/L 08/16/2015 Comp Metabolic Uba676 BILI T 0.3 mg/dL 08/16/2015 Comp Metabolic Nzy525 ALBUMIN 3.9 g/dL 08/16/2015 Comp Metabolic Fif341 TPRO 7.1 g/dL 08/16/2015 Comp Metabolic Jax420 GLOB 3.2 g/dL 08/16/2015 Comp Metabolic Bci448 A/G Ratio 1.2 Ratio 08/16/2015 Comp Metabolic Kop844 Osmo 264 mOsmo 08/16/2015 Tsh Ord6 hTSH II 1.13 uIU/mL 12/03/2014 Cbc With Differential Ord2 WBC 6.6 [...] 12/03/2014 D-Dimer D-DIMER 168 NG/ML 12/03/2014 D-Dimer [id number] COMMENT 12/03/2014 Comp Metabolic Pri137 NA 132 mEq/L 12/03/2014 Comp Metabolic Zld202 K 4.0 mEq/L 12/03/2014 Comp Metabolic Qgn743 CL 101 mEq/L 12/03/2014 Comp Metabolic Yop502 CO2 22.0 mEq/L 12/03/2014 Comp Metabolic Bnv570 ANION GAP 13 12/03/2014 Comp Metabolic Arl181 GLUCOSE 123 mg/dL 12/03/2014 Comp Metabolic Org673 Creat 0.7 mg/dL 12/03/2014 Comp Metabolic Hgf703 eGFR 97 ml/min/1.73m2 12/03/2014 Comp Metabolic Wfb812 BUN 10 mg/dL 12/03/2014 Comp Metabolic Swq268 B/C Ratio 14.7 Ratio 12/03/2014 Comp Metabolic Ktc875 CALCIUM 9.2 mg/dL 12/03/2014 Comp Metabolic Ovx843 ALK PHOS 88 U/L 12/03/2014 Comp Metabolic Qdl399 AST(SGOT) 18 U/L 12/03/2014 Comp Metabolic Zjr232 ALT(SGPT) 17 U/L 12/03/2014 Comp Metabolic Adj197 BILI T 0.5 mg/dL 12/03/2014 Comp Metabolic Nls177 ALBUMIN 3.9 g/dL 12/03/2014 Comp Metabolic Yhq842 TPRO 6.8 g/dL 12/03/2014 Comp Metabolic Ssw898 GLOB 2.9 g/dL 12/03/2014 Comp Metabolic Dmg431 A/G Ratio 1.3 Ratio 12/03/2014 Comp Metabolic Vgc855 Osmo 265 mOsmo 12/03/2014 Lipid Ord30 CHOL [...] exam 07/13/2016 None Full Exam - General 1995 Musculoskeletal [...] Procedure Codes Date THER/PROPH/DIAG INJ SC/IM CPT-4: 19759 06/27/2017 ROCEPHIN, PER 250 MG CPT-4: J0696 06/27/2017 IMMUNIZATION ADMIN CPT -4: 10715 03/16/2017 FLU VAC NO PRSV 4 FLETCHER 3 YRS+ CPT-4: 82349 03/16/2017 Pneumococcal Polysaccharide Vaccine, 23-Valent, Ad CPT-4: 52390 03/16/2017 IMMUNIZATION ADMIN EACH ADD CPT-4: 17511 03/16/2017 TRIAMCINOLONE ACET INJ NOS CPT-4: J3301 01/11/2017 TRIAMCINOLONE ACET INJ NOS CPT-4: J3301 02/28/2016 Vital Signs Date Vital 04/24/2018 Blood Pressure 1: 128/74 Code : 8480-6 BMI: 37.8 Code : 99000-7 Heart Rate 1 : 107 bpm Height: 5'6" SpO2: 98% Weight: 234 lbs 04/17/2018 Blood Pressure 1: 120/64 Code : 8480-6 BMI: 37.8 Code : 69297-1 Heart Rate 1 : 84 bpm Height: 5'6" SpO2: 96% Weight: 234 lbs 03/14/2018 Blood Pressure 1: 140/82 Code : 8480-6 BMI: 37.8 Code : 12287-5 Heart Rate 1 : 85 bpm Height: 5'6" SpO2: 98% Weight: 234 lbs 02/27/2018 Blood Pressure 1: 142/68 Code : 8480-6 BMI: 36.5 Code : 44130-7 Heart Rate 1 : 84 bpm Height: 5'6" SpO2: 97% Weight: 226 lbs 12/19/2017 Blood Pressure 1: 130/86 Code : 8480-6 BMI: 35.7 Code : 40388-1 Heart Rate 1 : 94 bpm Height: 5'6" Weight: 221 lbs 12/04/2017 Blood Pressure 1: 138/78 Code : 8480-6 BMI: 36.6 Code : 18371-6 Heart Rate 1 : 94 bpm Height: 5'6" SpO2: 98% Weight: 227 lbs 11/20/2017 Weight: 233 lbs 09/10/2017 Blood Pressure 1: 132/86 Code : 8480-6 Heart Rate 1: 86 bpm Height: Weight: 08/14/2017 Blood Pressure 1: 120/74 Code : 8480-6 BMI: 33.9 Code : 92914-2 Heart Rate 1 : 92 bpm Height: 5'6" SpO2: 94% Weight: 210 lbs 07/31/2017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
[2018-07-24 23:20] LABS: BAND NEUTROPHILS 0 %; BASOPHILS % (MANUAL) 0 %; EOSINOPHILS % (MANUAL) 0 %; LYMPHOCYTES % (MANUAL) 20 %; MONOCYTES % (MANUAL) 2 %; NEUTROPHILS % (MANUAL) 78 %; RBC MORPH NORMAL
--- OUTSIDE RECORDS SUMMARY | 2018-07-24 23:23 | XMS REPORT | CCD ---
Author Author [place] Organization [facility] Address [address] [place] [address] Phone Care Team Providers Care Drama Critic Name Role Phone PP Unavailable CCM Unavailable Summary Purpose Interface Exchange Insurance Providers Payer name Policy type / Coverage type Covered green party ID Effective Begin Date Effective End Date [facility] Commercial Insurance [id number] Unknown Family history Brother Diagnosis Age At [...] Description Effective Dates Tobacco history SNOMED CT: 4872353 Quit less than 5 years ago 04/02/2015 Alcohol history Unknown occasionally drinks alcohol 04/02/2015 Marital status Unknown Manuel Vitale 12/02/2014 Number of children Unknown 3 12/02/2014 Allergies, Adverse Reactions, Alerts Substance Reaction Codes Entered Date Inactivated Date Status * NO KNOWN FOOD ALLERGIES Unknown 12/02/2014 No Inactive Date Active Penicillin Unknown 12/02/2014 No Inactive Date Active tramadol RxNorm: 06717 12/02/2014 No Inactive Date Active Past Medical [...] Fill Instructions Ambien 10 mg tablet RxNorm: 777982 1 Tablet(s) PO QHS as needed insomnia 06/10/2018 09/07/2018 Active Cymbalta 30 mg capsule,delayed release RxNorm: 590417 1 Capsule(s) PO daily to be taken with 60mg to=90mg 06/03/20182018 Active Cymbalta 30 mg capsule,delayed release RxNorm: 763052 1 Capsule(s) PO daily 06/03/2018 06/02/2018 Inactive Protonix 40 mg tablet,delayed release RxNorm: 655495 1 TABLET(S) PO DAILY 05/20/2018 09/16/2018 Active gabapentin 300 mg capsule RxNorm: 431642 1 CAPSULE(S) PO TID 07/13/2018 Active Protonix 40 mg tablet,delayed release RxNorm: 930187 1 Tablet(s) PO daily 04/24/2018 05/19/2018 Inactive Zorvolex 35 mg capsule RxNorm: 5887614 TAKE 1 CAPSULE BY MOUTH THREE (3) TIMES DAILY 04/22/2018 08/19/2018 Active hydrochlorothiazide 25 mg tablet RxNorm: 922174 1 TABLET(S) PO DAILY 04/08/2018 07/06/2018 Active Zorvolex 35 mg capsule RxNorm: 5650258 TAKE 1 CAPSULE BY MOUTH THREE (3) TIMES DAILY 03/27/2018 04/21/2018 Inactive gabapentin 300 mg capsule RxNorm: 166452 1 CAPSULE(S) PO TID 04/14/2018 Inactive hydrochlorothiazide 25 mg tablet RxNorm: 580391 1 Tablet(s) PO daily 03/14/2018 04/07/2018 Inactive Cymbalta 60 mg capsule,delayed release RxNorm: 577338 1 Capsule(s) PO daily TAKE 1 CAPSULE BY MOUTH DAILY 02/27/20182019 Active Victoza 2-Marek 0.6 mg/0.1 mL (18 mg/3 mL) subcutaneous pen injector RxNorm: 029918 Milligram(s) INJECT 1.8 MG SUB-Q ONCE DAILY 02/27/2018 08/20/2019 Active qty sufficient Xanax 1 mg tablet RxNorm: 473647 1-2 Tablet(s) PO QHS as needed insomnia 02/27/2018 05/27/2018 Inactive atorvastatin 20 mg tablet RxNorm: 536889 1 Tablet(s) PO daily 02/27/2018 05/22/2019 Active Cymbalta 60 mg capsule,delayed release RxNorm: 894016 TAKE 1 CAPSULE BY MOUTH DAILY 02/27/2018 02/26/2018 Inactive gabapentin 300 mg capsule RxNorm: 877991 1 Capsule(s) PO TID 03/24/2018 Inactive meloxicam 7.5 mg tablet RxNorm: 794759 1 Tablet(s) PO daily 1 TABLET(S) PO DAILY 02/27/2018 04/14/2018 Inactive Ambien 10 mg tablet RxNorm: 985789 1 Tablet(s) PO QHS as needed insomnia 02/27/2018 05/25/2018 Inactive atorvastatin 20 mg tablet RxNorm: 997910 1 Tablet(s) PO daily 02/05/2018 02/26/2018 Inactive atorvastatin 20 mg tablet RxNorm: 441085 1 Tablet(s) PO daily 02/05/2018 02/04/2018 Inactive meloxicam 7.5 mg tablet RxNorm: 486782 1 TABLET(S) PO DAILY 02/26/2018 Inactive oxycodone 15 mg tablet RxNorm: 6765822 1 Tablet(s) PO QID as needed 01/07/2018 02/19/2018 Inactive lactulose 20 gram/30 mL oral solution RxNorm: 559276 15-30 Milliliter(s) PO BID as needed 12/31/2017 02/20/2018 Inactive meloxicam 7.5 mg tablet RxNorm: 373974 1 TABLET(S) PO DAILY 06/201701/31/2018 Inactive Zorvolex 35 mg capsule RxNorm: 2658603 1 Capsule(s) PO TID 06/201702/20/2018 Inactive Ambien 10 mg tablet RxNorm: 677818 1 Tablet(s) PO QHS as needed insomnia 12/04/2017 02/26/2018 Inactive oxycodone 15 mg tablet RxNorm: 5742330 1 Tablet(s) PO QID as needed 12/04/2017 01/06/2018 Inactive prednisone 20 mg tablet RxNorm: 638360 2 Tablet(s) PO daily 12/08/2017 Inactive Victoza 2-Marek 0.6 mg/0.1 mL (18 mg/3 mL) subcutaneous pen injector RxNorm: 094169 Milligram(s) INJECT 1.8 MG SUB-Q ONCE DAILY 11/20/2017 02/26/2018 Inactive meloxicam 7.5 mg tablet RxNorm: 257937 1 Tablet(s) PO daily 02/201812/12/2017 Inactive phentermine 37.5 mg tablet RxNorm: 704465 1 Tablet(s) PO daily 11/20/2017 12/19/2017 Inactive Ambien 10 mg tablet RxNorm: 582106 1 Tablet(s) PO QHS as needed insomnia 11/20/2017 12/18/2017 Inactive Xanax 1 mg tablet RxNorm: 230044 1.5 Tablet(s) PO QHS as needed insomnia 11/20/2017 02/26/2018 Inactive hydrocodone 7.5 mg-acetaminophen 325 mg tablet RxNorm: 676359 1 Tablet(s) PO TID as needed 11/16/2017 01/06/2018 Inactive Cymbalta 60 mg capsule,delayed release RxNorm: 822172 TAKE 1 CAPSULE BY MOUTH DAILY 11/02/2017 02/26/2018 Inactive Xanax 1 mg tablet RxNorm: 654001 1 Tablet(s) PO BID PRN as needed anxiety 10/04/2017 11/19/2017 Inactive Victoza 2-Marek 0.6 mg/0.1 mL (18 mg/3 mL) subcutaneous pen injector RxNorm: 497725 INJECT 1.8 MG SUB-Q ONCE DAILY 10/04/2017 11/19/2017 Inactive hydrocodone 7.5 mg-acetaminophen 325 mg tablet RxNorm: 501285 1 Tablet(s) PO TID as needed 09/17/2017 11/15/2017 Inactive hydrocodone 7.5 mg-acetaminophen 325 mg tablet RxNorm: 900247 1 Tablet(s) PO TID as needed 09/10/2017 09/16/2017 Inactive prednisone 10 mg tablet RxNorm: 425627 Tablet(s) PO 09/10/2017 11/13/2017 Inactive 6, 5,4,3,2,1 Zorvolex 35 mg capsule RxNorm: 7887520 1 Capsule(s) PO TID 11/13/2017 Inactive Ambien 10 mg tablet RxNorm: 233410 1 Tablet(s) PO QHS as needed insomnia 08/29/2017 11/19/2017 Inactive Zorvolex 35 mg capsule RxNorm: 0703106 1 Capsule(s) PO TID 09/06/2017 Inactive Zorvolex 35 mg capsule RxNorm: 7046246 1 Capsule(s) PO TID 06/201708/27/2017 Inactive Zorvolex 35 mg capsule RxNorm: 3343361 1 Capsule(s) PO TID 06/201708/12/2017 Inactive prednisone 20 mg tablet RxNorm: 899250 2 Tablet(s) PO daily 08/04/2017 Inactive hydrocodone 7.5 mg-acetaminophen 325 mg tablet RxNorm: 258198 1 Tablet(s) PO TID as needed 07/31/2017 09/09/2017 Inactive Zorvolex 35 mg capsule RxNorm: 5772681 1 Capsule(s) PO TID as needed 07/31/2017 11/13/2017 Inactive ceftriaxone 500 mg solution for injection RxNorm: 5051811 1 Milliliter(s) Inj 06/27/2017 06/27/2017 Inactive Keflex 500 mg capsule RxNorm: 356541 1 Capsule(s) PO TID 201707/03/2017 Inactive Ambien 10 mg tablet RxNorm: 027874 1 Tablet(s) PO daily 201708/25/2017 Inactive tramadol 50 mg tablet RxNorm: 963304 1 Tablet(s) PO TID as needed 05/29/2017 07/27/2017 Inactive Xanax 1 mg tablet RxNorm: 157466 1 Tablet(s) PO BID PRN as needed anxiety 05/21/2017 10/03/2017 Inactive alprazolam 1 mg tablet RxNorm: 782561 1 Tablet(s) PO BID as needed 05/21/2017 06/19/2017 Inactive Celebrex 200 mg capsule RxNorm: 386631 1 CAPSULE(S) PO BID 11/05/2017 Inactive prednisone 20 mg tablet RxNorm: 672270 2 Tablet(s) PO daily 12/201604/24/2017 Inactive Ambien 10 mg tablet RxNorm: 386098 Tablet(s) PO 04/20/2017 05/28/2017 Inactive hydrocodone 5 mg-acetaminophen 325 mg tablet RxNorm: 607697 1 Tablet(s) PO QID as needed 04/20/2017 08/01/2017 Inactive Cymbalta 60 mg capsule,delayed release RxNorm: 509889 1 Capsule(s) PO daily 04/20/2017 02/26/2018 Inactive Victoza 2-Marek 0.6 mg/0.1 mL (18 mg/3 mL) subcutaneous pen injector RxNorm: 769814 INJECT 1.8 MG SUB-Q ONCE DAILY 03/26/2017 09/21/2017 Inactive diazepam 2 mg tablet RxNorm: 177891 1 Tablet(s) PO QHS as needed insomnia 01/28/2017 05/07/2017 Inactive Victoza 2-Marek 0.6 mg/0.1 mL (18 mg/3 mL) subcutaneous pen injector RxNorm: 026301 1.8 Milligram(s) SQ daily 01/26/201703/25 Inactive dispense quantity sufficient Tussionex Pennkinetic ER 10 mg-8 mg/5 mL suspension, extended release RxNorm: 2843852 5 Milliliter(s) PO BID 01/11/2017 01/15/2017 Inactive Xanax 1 mg tablet RxNorm: 602403 1 Tablet(s) PO BID PRN as needed anxiety 01/11/2017 05/20/2017 Inactive Zithromax Z-Marek 250 mg tablet RxNorm: 391731 1 Tablet(s) PO UD 01/11/2017 01/15/2017 Inactive zpack albuterol sulfate 2.5 mg/3 mL (0.083 %) solution for nebulization RxNorm: 686920 3 Milliliter(s) INH UD 01/11/201707/2017 Inactive prednisone 20 mg tablet RxNorm: 282360 2 Tablet(s) PO daily 01/15/2017 Inactive Kenalog 40 mg/mL suspension for injection RxNorm: 7860940 1.5 Milliliter(s) Inj 01/11/2017 01/11/2017 Inactive Celebrex 200 mg capsule RxNorm: 316592 1 Capsule(s) PO BID 02/27/2017 Inactive Ambien 5 mg tablet RxNorm: 356639 1 Tablet(s) PO HS PRN 11/3008/07/2017 Inactive trazodone 50 mg tablet RxNorm: 495234 1/2 to 1 Tablet(s) PO QHS 10/13/2016 10/12/2016 Inactive trazodone 50 mg tablet RxNorm: 279015 1/2 to 1 Tablet(s) PO QHS 10/13/2016 11/29/2016 Inactive Belsomra 10 mg tablet RxNorm: 6766879 1 Tablet(s) PO QHS 201611/29/2016 Inactive may increase to 20mg if 10mg not effective Cymbalta 60 mg capsule,delayed release RxNorm: 581316 1 Capsule(s) PO daily 08/24/2016 03/21/2017 Inactive Xanax 1 mg tablet RxNorm: 942119 1 Tablet(s) PO BID PRN as needed anxiety 08/24/2016 01/10/2017 Inactive Victoza 2-Marek 0.6 mg/0.1 mL (18 mg/3 mL) subcutaneous pen injector RxNorm: 011897 Milligram(s) SQ 08/24/2016 08/23/2016 Inactive Victoza 2-Marek 0.6 mg/0.1 mL (18 mg/3 mL) subcutaneous pen injector RxNorm: 255802 1.8 Milligram(s) SQ 08/24/2016 01/25/2017 Inactive Vitamin D2 50,000 unit capsule RxNorm: 768774 1 Capsule(s) PO QW 07/13/2016 10/10/2016 Inactive Cymbalta 30 mg capsule,delayed release RxNorm: 901364 1 Capsule(s) PO daily 07/13/2016 08/23/2016 Inactive Belviq XR 20 mg tablet,extended release RxNorm: 3570775 1 Tablet(s) PO daily 05/30/2016 05/29/2016 Inactive prednisone 20 mg tablet RxNorm: 877260 2 Tablet(s) PO daily 06/03/2016 Inactive prednisone 20 mg tablet RxNorm: 555859 2 Tablet(s) PO daily 05/29/2016 Inactive Belviq XR 20 mg tablet,extended release RxNorm: 7837282 1 Tablet(s) PO daily 05/30/2016 06/28/2016 Inactive cyclobenzaprine 5 mg tablet RxNorm: 434831 1-2 Tablet(s) PO TID as needed 05/19/2016 05/23/2016 Inactive metoprolol succinate ER 25 mg tablet,extended release 24 hr RxNorm: 669049 1 Tablet(s) PO QPM 04/10/2016 04/13/2016 Inactive metoprolol succinate ER 25 mg tablet,extended release 24 hr RxNorm: 935942 1 Tablet(s) PO QPM 04/10/2016 04/09/2016 Inactive escitalopram 10 mg tablet RxNorm: 377718 1 Tablet(s) PO daily 03/16/2016 07/12/2016 Inactive estradiol 1 mg tablet RxNorm: 784809 1 Tablet(s) PO every other day 03/16/2016 05/15/2016 Inactive Kenalog 40 mg/mL suspension for injection RxNorm: 5340433 Milliliter(s) Inj 02/28/2016 02/28/2016 Inactive Zithromax Z-Marek 250 mg tablet RxNorm: 142158 1 Tablet(s) PO UD 02/28/2016 03/03/2016 Inactive zpack Lexapro 10 mg tablet RxNorm: 927966 1 Tablet(s) PO daily 201502/27/2016 Inactive Lexapro 10 mg tablet RxNorm: 017796 1 Tablet(s) PO daily 201509/26/2015 Inactive Vimovo 500 mg-20 mg tablet,immediate and delay release RxNorm: 707019 1 Tablet(s) PO BID as needed for pain 08/30/201509/25 Inactive azithromycin 250 mg tablet RxNorm: 553729 1 Tablet(s) PO UD 2 pills on day #1, then one pill daily x 4 days 07/15/2015 Inactive hydrocodone 10 mg-acetaminophen 325 mg tablet RxNorm: 317177 1 Tablet(s) PO QID 06/16/2015 01/12/2016 Inactive pramipexole 0.5 mg tablet RxNorm: 119478 1 Tablet(s) PO QPM 07/201507/14/2015 Inactive Celebrex 200 mg capsule RxNorm: 233918 1 Capsule(s) PO daily 05/02/2015 Inactive Celebrex 200 mg capsule RxNorm: 737159 1 Capsule(s) PO daily 01/12/2016 Inactive hydrocodone 7.5 mg-acetaminophen 325 mg tablet RxNorm: 513658 1 Tablet(s) PO Q6 PRN 05/03/2015 06/15/2015 Inactive Mobic 15 mg tablet RxNorm: 816744 1 Tablet(s) PO daily 201405/02/2015 Inactive hydrocodone 7.5 mg-acetaminophen 325 mg tablet RxNorm: 928851 1 Tablet(s) PO Q6 PRN 04/02/2015 05/02/2015 Inactive hydrocodone 5 mg-acetaminophen 325 mg tablet RxNorm: 868673 1 Tablet(s) PO Q6 as needed 12/11/2014 04/01/2015 Inactive Pennsaid 1.5 % topical drops RxNorm: 905250 40 Drop(s) TOP QID as needed 12/07/2014 02/04/2015 Inactive Apply 40 drops to each knee joint 4 times per day as needed for osteoarthritis pain estradiol 1 mg tablet RxNorm: 625941 1 Tablet(s) PO QHS No Start Date 03/15/2016 Inactive Xanax 0.5 mg tablet RxNorm: 705011 1 Tablet(s) PO Q6 as needed anxiety No Start Date 08/23/2016 Inactive Tylenol Extra Strength 500 mg tablet RxNorm: 354117 3 Tablet(s) PO BID after breakfast and after lunch No Start Date Inactive lactulose 20 gram/30 mL oral solution RxNorm: 653150 15-30 Milliliter(s) PO BID as needed No Start Date 12/30/2017 Inactive hydrocodone 5 mg-acetaminophen 325 mg tablet RxNorm: 298243 1 Tablet(s) PO Q6 as needed No Start Date 12/10/2014 Inactive Phenergan-Codeine syrup RxNorm: 5-10 Milliliter(s) PO QID as needed No Start Date 11/13/2017 Inactive ibuprofen 200 mg capsule RxNorm: 892013 4 Capsule(s) PO QID as needed No Start Date 04/01/2015 Inactive Medication Administered Medication Codes Instructions Start Date Status ceftriaxone 500 mg solution for injection RxNorm: 0118475 1Milliliter 06/27/2017 No longer Active Kenalog 40 mg/mL suspension for injection RxNorm: 7567747 1.5Milliliter 01/11/2017 No longer Active Kenalog 40 mg/mL suspension for injection RxNorm: 7518160 Milliliter 02/28/2016 No longer Active Immunizations Vaccine Codes Date Status Influenza CVX: 141 03/16/2017 completed Pneumococcal (Adult) CVX: 33 03/16/2017 completed Assessments Condition Codes Effective Dates Other chest pain ICD-10: R07.89 ICD-9: 786.59 04/24/2018 Right upper quadrant pain ICD-10: R10.11 ICD-9: 789.01 04/24/2018 Type 2 diabetes mellitus without complications ICD-10: E11.9 ICD-9: 250.00 04/17/2018 Essential (primary) hypertension ICD-10: I10 ICD-9: 401.1 04/17/2018 Generalized anxiety disorder ICD-10: F41.1 ICD-9: 300.00 04/17/2018 Major depressive disorder, recurrent, mild ICD-10: [...] Code Item Item Code Result Date %Hba1C Pyj843 % HbA1c 83903-3 6.7 % 11/20/2017 %Hba1C Vpo807 Gluc Ave 146 mg/dL 11/20/2017 Free T4 Zqp774 FREE T4 0.76 ng/dL 05/21/2017 Tsh Ord6 hTSH II 1.27 uIU/mL 05/21/2017 Comp Metabolic Ogw710 NA 140 mEq/L 05/21/2017 Comp Metabolic Lyr955 K 3.9 mEq/L 05/21/2017 Comp Metabolic Zzp771 CL 101 mEq/L 05/21/2017 Comp Metabolic Kxr618 CO2 28.0 mEq/L 05/21/2017 Comp Metabolic Bqn291 ANION GAP 15 05/21/2017 Comp Metabolic Jeq750 GLUCOSE 155 mg/dL 05/21/2017 Comp Metabolic Urt549 Creat 0.7 mg/dL 05/21/2017 Comp Metabolic Hnq633 eGFR 87 ml/min/1.73m2 05/21/2017 Comp Metabolic Xar474 BUN 16 mg/dL 05/21/2017 Comp Metabolic Ses183 B/C Ratio 21.6 Ratio 05/21/2017 Comp Metabolic Krx437 CALCIUM 9.4 mg/dL 05/21/2017 Comp Metabolic Sgb324 ALK PHOS 132 U/L 05/21/2017 Comp Metabolic Boi591 AST(SGOT) 16 U/L 05/21/2017 Comp Metabolic Stq517 ALT(SGPT) 20 U/L 05/21/2017 Comp Metabolic Tlr988 BILI T 0.4 mg/dL 05/21/2017 Comp Metabolic Ady779 ALBUMIN 4.0 g/dL 05/21/2017 Comp Metabolic Uim010 TPRO 6.7 g/dL 05/21/2017 Comp Metabolic Ylp867 GLOB 2.7 g/dL 05/21/2017 Comp Metabolic Ucy655 A/G Ratio 1.5 Ratio 05/21/2017 Comp Metabolic Eyr579 Osmo 284 mOsmo 05/21/2017 Cbc With Differential [...] Baso ABS# 0.0 K/ul 05/21/2017 Estrogens Total 831559 ESTROGENS, TOTAL 54 pg/mL 05/24/2016 Magnesium Ord90 Mag 1.8 mg/dL 05/19/2016 Tsh Ord6 hTSH II 1.56 uIU/mL 05/19/2016 Progesterone Prog 0.03 ng/mL 05/19/2016 Comp Metabolic Bmz531 NA 136 mEq/L 05/19/2016 Comp Metabolic Rve727 K 4.3 mEq/L 05/19/2016 Comp Metabolic Xau404 CL 100 mEq/L 05/19/2016 Comp Metabolic Vzr974 CO2 28.0 mEq/L 05/19/2016 Comp Metabolic Zux569 ANION GAP 12 05/19/2016 Comp Metabolic Czg649 GLUCOSE 138 mg/dL 05/19/2016 Comp Metabolic Xds504 Creat 0.7 mg/dL 05/19/2016 Comp Metabolic Jne769 eGFR 89 ml/min/1.73m2 05/19/2016 Comp Metabolic Lkq059 BUN 15 mg/dL 05/19/2016 Comp Metabolic Ubh384 B/C Ratio 20.5 Ratio 05/19/2016 Comp Metabolic Mcm002 CALCIUM 9.7 mg/dL 05/19/2016 Comp Metabolic Lqx398 ALK PHOS 106 U/L 05/19/2016 Comp Metabolic Epp138 AST(SGOT) 21 U/L 05/19/2016 Comp Metabolic Cql653 ALT(SGPT) 24 U/L 05/19/2016 Comp Metabolic Tca655 BILI T 0.4 mg/dL 05/19/2016 Comp Metabolic Tqu749 ALBUMIN 4.1 g/dL 05/19/2016 Comp Metabolic Vzd178 TPRO 7.1 g/dL 05/19/2016 Comp Metabolic Qvp331 GLOB 3.0 g/dL 05/19/2016 Comp Metabolic Iyl241 A/G Ratio 1.4 Ratio 05/19/2016 Comp Metabolic Rcy576 Osmo 275 mOsmo 05/19/2016 Cbc With Differential [...] 86.5 fl 05/19/2016 Cbc With Differential Ord2 [place]% 6.5 [...] 0.0 K/ul 05/19/2016 C RAP A SC 0360094 Strep A Negative 02/28/2016 Tsh Ord6 hTSH [...] part differential hematolgy analyzer. 08/16/2015 Comp Metabolic Fyp367 NA 132 mEq/L 08/16/2015 Comp Metabolic Fcc866 K 3.6 mEq/L 08/16/2015 Comp Metabolic Zny415 CL 99 mEq/L 08/16/2015 Comp Metabolic Ptk733 CO2 23.0 mEq/L 08/16/2015 Comp Metabolic Sgd694 ANION GAP 14 08/16/2015 Comp Metabolic Jqe215 GLUCOSE 101 mg/dL 08/16/2015 Comp Metabolic Woz184 Creat 0.7 mg/dL 08/16/2015 Comp Metabolic Xsb819 eGFR 100 ml/min/1.73m2 08/16/2015 Comp Metabolic Uzp822 BUN 10 mg/dL 08/16/2015 Comp Metabolic Clz425 B/C Ratio 15.2 Ratio 08/16/2015 Comp Metabolic Tkt794 CALCIUM 9.3 mg/dL 08/16/2015 Comp Metabolic Mgo003 ALK PHOS 100 U/L 08/16/2015 Comp Metabolic Jwf960 AST(SGOT) 14 U/L 08/16/2015 Comp Metabolic Qnz430 ALT(SGPT) 11 U/L 08/16/2015 Comp Metabolic Yux526 BILI T 0.3 mg/dL 08/16/2015 Comp Metabolic Wcu043 ALBUMIN 3.9 g/dL 08/16/2015 Comp Metabolic Oes571 TPRO 7.1 g/dL 08/16/2015 Comp Metabolic Zdb362 GLOB 3.2 g/dL 08/16/2015 Comp Metabolic Bnm374 A/G Ratio 1.2 Ratio 08/16/2015 Comp Metabolic Nay460 Osmo 264 mOsmo 08/16/2015 Lipid Ord30 CHOL 209 mg/dL 12/03/2014 Lipid Ord30 HDL 42.0 mg/dl 12/03/2014 Lipid Ord30 TRIG 219 mg/dL 12/03/2014 Lipid Ord30 LDL 123 mg/dL 12/03/2014 Lipid Ord30 C/HDL 5.0 Ratio 12/03/2014 Comp Metabolic Emi861 NA 132 mEq/L 12/03/2014 Comp Metabolic Esr817 K 4.0 mEq/L 12/03/2014 Comp Metabolic Tqm801 CL 101 mEq/L 12/03/2014 Comp Metabolic Yye942 CO2 22.0 mEq/L 12/03/2014 Comp Metabolic Ayi619 ANION GAP 13 12/03/2014 Comp Metabolic Skg653 GLUCOSE 123 mg/dL 12/03/2014 Comp Metabolic Gai010 Creat 0.7 mg/dL 12/03/2014 Comp Metabolic Jwb512 eGFR 97 ml/min/1.73m2 12/03/2014 Comp Metabolic Qol296 BUN 10 mg/dL 12/03/2014 Comp Metabolic Lwx197 B/C Ratio 14.7 Ratio 12/03/2014 Comp Metabolic Wpb506 CALCIUM 9.2 mg/dL 12/03/2014 Comp Metabolic Ymh164 ALK PHOS 88 U/L 12/03/2014 Comp Metabolic Mrr211 AST(SGOT) 18 U/L 12/03/2014 Comp Metabolic Tbl771 ALT(SGPT) 17 U/L 12/03/2014 Comp Metabolic Jgw572 BILI T 0.5 mg/dL 12/03/2014 Comp Metabolic Ybq671 ALBUMIN 3.9 g/dL 12/03/2014 Comp Metabolic Dyp773 TPRO 6.8 g/dL 12/03/2014 Comp Metabolic Cvg854 GLOB 2.9 g/dL 12/03/2014 Comp Metabolic Oac609 A/G Ratio 1.3 Ratio 12/03/2014 Comp Metabolic Gyj790 Osmo 265 mOsmo 12/03/2014 Tsh Ord6 hTSH II 1.13 uIU/mL 12/03/2014 D-Dimer 144120 D-DIMER 168 NG/ML 12/03/2014 D-Dimer 739853 COMMENT 12/03/2014 Cbc With Differential Ord2 WBC [...] Procedure Codes Date THER/PROPH/DIAG INJ SC/IM CPT-4: 22585 06/27/2017 ROCEPHIN, PER 250 MG CPT-4: J0696 06/27/2017 IMMUNIZATION ADMIN CPT -4: 47364 03/16/2017 FLU VAC NO PRSV 4 FLETCHER 3 YRS+ CPT-4: 60622 03/16/2017 Pneumococcal Polysaccharide Vaccine, 23-Valent, Ad CPT-4: 08006 03/16/2017 IMMUNIZATION ADMIN EACH ADD CPT-4: 62312 03/16/2017 TRIAMCINOLONE ACET INJ NOS CPT-4: J3301 01/11/2017 TRIAMCINOLONE ACET INJ NOS CPT-4: J3301 02/28/2016 Vital Signs Date Vital 04/24/2018 Blood Pressure 1: 128/74 Code : 8480-6 BMI: 37.8 Code : 19328-1 Heart Rate 1 : 107 bpm Height: 5'6" SpO2: 98% Weight: 234 lbs 04/17/2018 Blood Pressure 1: 120/64 Code : 8480-6 BMI: 37.8 Code : 70674-5 Heart Rate 1 : 84 bpm Height: 5'6" SpO2: 96% Weight: 234 lbs 03/14/2018 Blood Pressure 1: 140/82 Code : 8480-6 BMI: 37.8 Code : 24823-3 Heart Rate 1 : 85 bpm Height: 5'6" SpO2: 98% Weight: 234 lbs 02/27/2018 Blood Pressure 1: 142/68 Code : 8480-6 BMI: 36.5 Code : 45496-4 Heart Rate 1 : 84 bpm Height: 5'6" SpO2: 97% Weight: 226 lbs 12/19/2017 Blood Pressure 1: 130/86 Code : 8480-6 BMI: 35.7 Code : 60913-4 Heart Rate 1 : 94 bpm Height: 5'6" Weight: 221 lbs 12/04/2017 Blood Pressure 1: 138/78 Code : 8480-6 BMI: 36.6 Code : 73222-4 Heart Rate 1 : 94 bpm Height: 5'6" SpO2: 98% Weight: 227 lbs 11/20/2017 Weight: 233 lbs 09/10/2017 Blood Pressure 1: 132/86 Code : 8480-6 Heart Rate 1: 86 bpm Height: Weight: 08/14/2017 Blood Pressure 1: 120/74 Code : 8480-6 BMI: 33.9 Code : 16587-6 Heart Rate 1 : 92 bpm Height: 5'6" SpO2: 94% Weight: 210 lbs 07/31/2017 Blood Pressure 1: 140/80 Code : 8480-6 BMI: 33.9 Code : 22072-2 Heart Rate 1 : 96 bpm Height: 5'6" SpO2: 97% Weight: 210 lbs 06/27/2017 Blood Pressure 1: 128/80 Code : 8480-6 BMI: 33.9 Code : 90216-7 Heart Rate 1 : 85 bpm Height: [...] Code : 8480-6 BMI: 39.9 Code : 07861-3 Heart Rate 1 : 79 bpm Height: 5'6" SpO2: 97% Weight: 247 lbs 01/26/2017 Blood Pressure 1: 132/74 Code : 8480-6 BMI: 37.8 Code : 19581-4 Heart Rate 1 : 74 bpm Height: 5'6" SpO2: 97% Weight: 234 lbs 01/11/2017 Blood Pressure 1: 118/68 Code : 8480-6 BMI: 38.7 Code : 58605-6 Heart Rate 1 : 91 bpm Height: 5'6" SpO2: 96% Weight: 240 lbs 11/30/2016 Blood Pressure 1: 132/76 Code : 8480-6 BMI: 38.3 Code : 32792-6 Heart Rate 1 : 71 bpm Height: 5'6" SpO2: 92% Weight: 237 lbs 09/28/2016 Blood Pressure 1: 122/72 Code : 8480-6 BMI: 39.1 Code : 25052-9 Heart Rate 1 : 88 bpm Height: 5'6" SpO2: 94% Weight: 242 lbs 08/24/2016 Blood Pressure 1: 130/87 Code : 8480-6 BMI: 41.5 Code : 57617-6 Heart Rate 1 : 95 bpm Height: 5'6" Respiratory Rate: 16 bpm SpO2: 98% Temperature: 36.9 (C) / 98.5 (F ) Weight: 257 lbs 07/13/2016 Blood Pressure 1: 132/84 Code : 8480-6 BMI: 42.0 Code : 65041-5 Heart Rate 1 : 73 bpm Height: 5'6" SpO2: 97% Weight: 260 lbs 05/19/2016 Blood Pressure 1: 138/76 Code : 8480-6 BMI: 40.8 Code : 63822-7 Heart Rate 1 : 80 bpm Height: 5'6" SpO2: 98% Weight: 253 lbs 03/16/2016 Blood Pressure 1: 122/70 Code : 8480-6 BMI: 40.4 Code : 16662-8 Heart Rate 1 : 72 bpm Height: 5'6" SpO2: 98% Weight: 250 lbs 02/28/2016 Blood Pressure 1: 136/86 Code : 8480-6 BMI: 40.2 Code : 51182-8 Heart Rate 1 : 87 bpm Height: 5'6" SpO2: 96% Temperature: 36.3 (C) / 97.3 (F) Weight: 249 lbs 01/13/2016 Blood Pressure 1: 120/76 Code : 8480-6 BMI: 40.4 Code : 42494-4 Heart Rate 1 : 68 bpm Height: 5'6" SpO2: 97% Weight: 250 lbs 09/27/2015 Blood Pressure 1: 112/70 Code : 8480-6 BMI: 38.4 Code : 13048-7 Heart Rate 1 : 76 bpm Height: 5'6" SpO2: 98% Weight: 238 lbs 08/30/2015 Blood Pressure 1: 144/82 Code : 8480-6 BMI: 39.5 Code : 01287-4 Heart Rate 1 : 82 bpm Height: 5'6" SpO2: 97% Weight: 245 lbs 08/16/2015 Blood Pressure 1: 140/72 Code : 8480-6 BMI: 38.9 Code : 87885-0 Heart Rate 1 : 72 bpm Height: 5'6" SpO2: 97% Weight: 241 lbs 07/15/2015 Blood Pressure 1: 128/80 Code : 8480-6 BMI: 39.3 Code : 97896-6 Heart Rate 1 : 86 bpm Height: 5'6" SpO2: 98% Weight: 243 lbs 8 oz 06/16/2015 Blood Pressure 1: 146/86 Code : 8480-6 BMI: 39.6 Code : 38012-7 Heart Rate 1 : 76 bpm Height: 5'6" SpO2: 97% Weight: 245 lbs 8 oz 04/02/2015 Blood Pressure 1: 132/86 Code : 8480-6 BMI: 40.7 Code : 77409-9 Heart Rate 1 : 94 bpm Height: 5'6" SpO2: 98% Weight: 252 lbs 12/02/2014 Blood Pressure 1: 122/90 Code : 8480-6 BMI: 41.6 Code : 81562-7 Heart Rate 1 : 77 bpm Height: [...] R07.89] [facility] CPT-4 : 93692 04/24/2018 23588 EST. PATIENT, LEVEL III Diagnosis: Generalized anxiety disorder[ICD10: F41.1] Diagnosis: Major depressive disorder, recurrent, mild[ICD10: F33.0] Diagnosis: Essential (primary) hypertension[ICD10: I10] Diagnosis: Type 2 diabetes mellitus without complications[ICD10: E11.9] [facility] CPT-4: 56023 04/17/2018 17225 EST. PATIENT, LEVEL III Diagnosis: Localized edema[ICD10: R60.0] Diagnosis: Essential (primary) hypertension[ICD10: I10] Petra Trejo MD, [facility] CPT-4: 96987 03/14/2018 01242 EST. PATIENT, LEVEL III Diagnosis: Pain in left knee[ICD10: M25.562] Diagnosis: Other obesity due to excess calories[ICD10: E66.09] Diagnosis: Other insomnia[ICD10: G47.09] Diagnosis: Generalized anxiety disorder[ICD10: F41.1] Petra Trejo MD, [facility] CPT-4: 23511 02/27/2018 ([id number]) Miscellaneous no charge Diagnosis: Other obesity due to excess calories[ICD10: E66.09] Heidy Trejo MD, [facility] CPT-4: 24234 12/19/2017 11825 EST. PATIENT, LEVEL III Diagnosis: Pain in right foot[ICD10: M79.671] Diagnosis: Pain in right ankle and joints of right foot[ICD10: M25.571] Petra Trejo MD , [facility] CPT-4: 53165 12/04/2017 23963 EST. PATIENT, LEVEL III Diagnosis: Pain in left knee[ICD10: M25.562] Diagnosis: Type 2 diabetes mellitus without complications[ICD10: E11.9] Diagnosis: Other obesity due to excess calories[ICD10: E66.09] Petra Trejo MD, [facility] CPT-4: 14388 11/20/2017 68085 EST. PATIENT, LEVEL III Diagnosis: Pain in left knee[ICD10: M25.562] Petra Trejo MD, [facility] CPT -4: 79268 09/10/2017 93660 EST. PATIENT, LEVEL III Diagnosis: Encounter for follow-up examination after completed treatment for conditions other than malignant neoplasm[ICD10: Z09] Diagnosis: Pain in left knee[ICD10: M25.562] Petra Trejo MD, [facility] CPT -4: 78077 08/14/2017 70300 EST. PATIENT, LEVEL III Diagnosis: Pain in left knee[ICD10: M25.562] Petra Trejo MD, [facility] CPT -4: 69146 07/31/2017 97350 EST. PATIENT, LEVEL III Diagnosis: Acute laryngopharyngitis[ICD10: J06.0] Diagnosis: Other allergic rhinitis[ICD10: J30.89] Petra Trejo MD, [facility] CPT-4: 63308 06/27/2017 81685 EST. PATIENT, LEVEL III Diagnosis: Ganglion, left hand[ICD10: M67.442] Diagnosis: Essential (primary) hypertension[ICD10: I10] Diagnosis: Generalized anxiety disorder[ICD10: F41.1] Diagnosis: Other insomnia[ICD10: G47.09] Petra Trejo MD, [facility] CPT-4 : 99963 05/29/2017 17537 EST. PATIENT, LEVEL III Diagnosis: Essential (primary) hypertension[ICD10: I10] Diagnosis: Palpitations[ICD10: R00.2] Diagnosis: Generalized anxiety disorder[ICD10: F41.1] Petra Trejo MD, [facility] CPT-4: 31407 05/21/2017 26919 EST. PATIENT, LEVEL III Diagnosis: Pain in right foot[ICD10: M79.671] Petra Trejo MD, [facility] CPT-4: 33282 04/20/2017 60506 EST. PATIENT, LEVEL IV Diagnosis: Other insomnia[ICD10: G47.09] Diagnosis: Other skin changes[ICD10: R23.8] Petra Trejo MD, [facility] CPT- 4: 22709 01/26/2017 84007 EST. PATIENT, LEVEL IV Diagnosis: Acute bronchitis due to other specified organisms[ICD10: J20.8] Petra Trejo MD, [facility] CPT-4: 09338 01/11/2017 ([id number]) 19069 EST. PATIENT, LEVEL IV Diagnosis: Essential (primary) hypertension[ICD10: I10] Diagnosis: Other insomnia[ICD10: G47.09] Diagnosis: Primary generalized (osteo)arthritis[ICD10: M15.0] Diagnosis: Other obesity due to excess calories[ICD10: E66.09] Claudette Trejo MD, [facility] CPT-4: 25746 11/30/2016 ([id number]) 84253 EST. PATIENT, LEVEL III Diagnosis: Other obesity due to excess calories[ICD10: E66.09] Diagnosis: Other insomnia[ICD10: G47.09] Diagnosis: Generalized anxiety disorder[ICD10: F41.1] Claudette Trejo MD, [facility] CPT-4: 73114 09/28/2016 ([id number]) 63302 EST. PATIENT, LEVEL IV Diagnosis: Generalized anxiety disorder[ICD10: F41.1] Diagnosis: Major depressive disorder, recurrent, mild[ICD10: F33.0] Diagnosis: Other obesity due to excess calories[ICD10: E66.09] Diagnosis: Other insomnia[ICD10: G47.09] Claudette Trejo MD, [facility] CPT-4: 55826 08/24/2016 ([id number]) 06384 EST. PATIENT, LEVEL III Diagnosis: Other obesity due to excess calories[ICD10: E66.09] Diagnosis: Major depressive disorder, recurrent, moderate[ICD10: F33.1] Diagnosis: Low back pain[ICD10: M54.5] Heidy Trejo MD, [facility] CPT- 4: 54196 07/13/2016 75315 EST. PATIENT, LEVEL IV Diagnosis: Other muscle spasm[ICD10: M62.838] Diagnosis: Generalized anxiety disorder[ICD10: F41.1] Diagnosis: Major depressive disorder, recurrent, moderate[ICD10: F33.1] Diagnosis: Other insomnia[ICD10: G47.09] Petra Trejo MD, [facility] CPT-4 : 73999 05/19/2016 ([id number]) 08377 EST. PATIENT, LEVEL III Diagnosis: Generalized anxiety disorder[ICD10: F41.1] Diagnosis: Major depressive disorder, recurrent, moderate[ICD10: F33.1] Heidy Trejo MD, [facility] CPT-4: 72483 03/16/2016 ([id number]) 40087 EST. PATIENT, LEVEL III Diagnosis: Streptococcal pharyngitis[ICD10: J02.0] Claudette Trejo MD, [facility] CPT-4: 62091 02/28/2016 ([id number]) 38453 EST. PATIENT, LEVEL III Diagnosis: Generalized anxiety disorder[ICD10: F41.1] Diagnosis: Other obesity due to excess calories[ICD10: E66.09] Heidy Trejo MD, [facility] CPT-4: 66744 01/13/2016 ([id number]) 22604 EST. PATIENT, LEVEL III Diagnosis: Generalized anxiety disorder[ICD10: F41.1] Diagnosis: Major depressive disorder, recurrent, unspecified[ICD10: F33.9] Heidy Trejo MD, [facility] CPT-4: 47157 09/27/2015 64090 EST. PATIENT, LEVEL IV Diagnosis: Chronic pain syndrome[ICD10: G89.4] Diagnosis: Other obesity due to excess calories[ICD10: E66.09] Diagnosis: Essential (primary) hypertension[ICD10: I10] Diagnosis: Generalized anxiety disorder[ICD10: F41.1] Diagnosis: Excessive and frequent menstruation with regular cycle[ICD10: N92.0] Diagnosis: Pain in right knee[ICD10: M25.561] Petra Trejo MD, [facility] CPT-4: 08574 08/30/2015 21179 EST. PATIENT, LEVEL IV Diagnosis: Palpitations[ICD10: R00.2] Diagnosis: Other obesity due to excess calories[ICD10: E66.09] Petra Trejo MD, [facility] CPT-4: 25218 08/16/2015 ([id number]) 06470 EST. PATIENT, LEVEL IV Diagnosis: Pain in right knee[ICD10: M25.561] Diagnosis: Primary generalized (osteo)arthritis[ICD10: M15.0] Diagnosis: Acute maxillary sinusitis, unspecified[ICD10: J01.00] Heidy Trejo MD, [facility] CPT-4: 49805 07/15/2015 ([id number]) 99868 EST. PATIENT, LEVEL IV Diagnosis: Primary generalized (osteo)arthritis[ICD10: M15.0] Diagnosis: Restless legs syndrome[ICD10: G25.81] Diagnosis: Chronic pain syndrome[ICD10: G89.4] Heidy Trejo MD, [facility] CPT-4: 11533 06/16/2015 ([id number]) 06750 EST. PATIENT, LEVEL III Diagnosis: Primary generalized (osteo)arthritis[ICD10: M15.0] Diagnosis: Varicose veins of bilateral lower extremities with pain[ICD10: I83.813] Claudette Trejo MD, [facility] CPT-4: 50818 ([id number]) OFFICE VISIT, NEW - LEVEL 3 Diagnosis: Osteoarthritis[ICD9: 715.90] Diagnosis: ABNORMAL WEIGHT GAIN[ICD9: 783.1] Diagnosis: Superficial thrombophlebitis[ICD9: 451.9] [facility] CPT-4: 54571 12/02/2014 Plan of Care Planned Activity Notes [...] she is to follow up with her senior java architect 04/24/2018 [phone] [facility] [place] ([facility] min) Complex 04/24/2018 Patient Education: [...] control. 04/17/2018 Appointment: [facility] [phone] [facility] [place] (15 min) Moderate 04/17/2018 Patient Education: [...] peripheral edema. 03/14/2018 Appointment: [facility] [phone] [facility] (15 min) Moderate 03/14/2018 Patient Education: [...] ortho 02/27/2018 Appointment: [facility] [phone] [facility] (30 min) Complex 02/27/2018 Patient Education: Patient [...] improve. 12/04/2017 Appointment: [facility] [phone] [facility] (15 min) Moderate 12/04/2017 Patient Education: [...] glucose control. 11/20/2017 Appointment: Pet[facility] Rivas [facility]Ptel: [facility] ([facility] min) Moderate 11/20/2017 Patient Education: Patient [...] not improve. 09/10/2017 Appointment: Pet[facility] Rivas WPtel: [facility] (15 min) Moderate 09/10/2017 Patient Education: Patient [...] not improve. 08/14/2017 Appointment: Petra Rivas WPtel: [facility] [place] (30 min) Complex 08/14/2017 Patient Education: Patient Medication Summary Completed 08/14/2017 Appointment: Petra Rivas WPtel: [phone] [facility] [place] (15 min) Moderate 08/01/2017 Visit Plan: Knee pain - pt is to use RICE - Rest, Ice, Compression, Elevation - pt is to use crutches as directed - The pt is to use prn antiinflammatories to manage acute pain. The patient is to call the office if the pain is worsening or does not improve. 07/31/2017 Appointment: Petra Rivas WPtel: [facility] [place] (30 min) Complex 07/31/2017 Patient Education: Patient Medication Summary Completed 07/31/2017 Care Plan: X-RAY EXAM OF KNEE 3 LOINC : 13493-7 Pending 07/31/2017 Visit Plan: URI - Pt [...] allergy spray. 06/27/2017 Appointment: Petra Rivas WPtel: [facility] [place] (15 min) Moderate 06/27/2017 Patient Education: Patient Medication Summary Completed 06/27/2017 Referral: Jignesh Quinn [facility] Patient informed. Referral info faxed. Completed 06/13/2017 [...] Dr. Quinn 05/29/2017 Appointment: Petra Rivas WPtel: [facility] (15 min) Moderate 05/29/2017 Patient Education: Patient Medication Summary Completed 05/29/2017 Care Plan: Referral Order SNOMED-CT : [id number] Pending 05/29/2017 Appointment: Petra Rivas WPtel: [facility] (15 min) Moderate 05/28/2017 Visit Plan: Palpitations [...] acute concerns. 05/21/2017 Appointment: [facility] [phone] [facility] (15 min) Moderate 05/21/2017 Patient Education: Patient Medication Summary Completed 05/21/2017 Visit Plan: Right heel pain - will send RX, pt is to do stretches as directed - The pt is to use prn antiinflammatories to manage acute pain. The patient is to call the office if the pain is worsening or does not improve. 04/20/2017 Appointment: Petra Rivas WPtel: [phone] [facility] (30 min) Complex 04/20/2017 Patient Education: Patient Medication Summary Completed 04/20/2017 Appointment: Petra Rivas WPtel: [phone] [facility] (30 min) Complex 03/29/2017 Patient Education: Patient Medication Summary Completed 03/16/2017 Referral: Maycol Quijano Referral Initiated 02/08/2017 Care Plan: Referral Order SNOMED-CT : [id number] Pending 01/28/2017 Visit Plan: Insomnia - Pt [...] or concerns. 01/26/2017 App[facility]ment: [facility] [phone] [facility] ([facility] min) Complex 01/26/2017 Patient Education: [...] worsen. 01/11/2017 Appointment: [facility]ivas [facility]el[facility] [phone] [facility] (15 min) Moderate 01/11/2017 Patient Education: [...] on use. 11/30/2016 Appointment: Claudette Savage [facility]Ptel: [facility] (15 min) Moderate 11/30/2016 Patient Education: Patient Medication Summary Completed 11/30/2016 Patient Education: Obesity Completed 11/30/2016 Care Plan: BMI Above normal followup SELF-MGMT EDUC & TRAIN 1 PT Pending 2016 Visit Plan: Bicheaz-mnmpqihbxj-jvjspyps with increase in cymbalta-no changes Insomnia-RX for belsomra provided and instructed on use Obesity-patient down 15#-no changes-continue diet/exercise-follow up in 2 months 09/28/2016 Appointment: Claud[facility] [phone] [phone] (15 min) Moderate 09/28/2016 Patient Education: Patient Medication Summary Completed 09/28/2016 Patient Education: Obesity Completed 09/28/2016 Care Plan: BMI Above normal followup SELF-MGMT EDUC & TRAIN 1 PT Pending 2016 Visit Plan: Wfqniwn-dorzhfrgyc-ltqdschs-increase cymbalta to 60mg daily. Increase xanax as [...] for insomnia/anxiety 08/24/2016 Appointment: Claudette Savage WPtel: [phone] [facility] [place] (15 min) Moderate 08/24/2016 Patient Education: [...] not improving. 07/13/2016 Appointment: Heidy Trejo WPtel: [facility] [place] (15 min) Moderate 07/13/2016 Patient Education: [...] insomnia. 05/19/2016 Appointment: Petra Rivas WPtel: [phone] [facility] (30 min) Complex 05/19/2016 Patient [...] patient. 03/16/2016 Appointment: Heidy Trejo WPtel: [phone] [facility] (15 min) Moderate 03/16/2016 Patient Education: [...] the swab. 02/28/2016 Appointment: Claudette Savage WPtel: [phone] [phone] [place] (10 min) Simple 02/28/2016 Patient Education: [...] lexapro 01/13/2016 Appointment: Heidy Trejo WPtel: [phone] [facility] (15 min) Moderate 01/13/2016 Patient Education: Patient [...] 09/27/2015 Care Plan: Referral Order SNOMED-CT : [id number] Pending 08/31/2015 Visit Plan: Anxiety - the [...] show improvement. 07/15/2015 Appointment: Heidy Trejo WPtel: [address] [place], [place] [address] (15 min) Moderate 07/15/2015 Patient Education: Patient [...] clinic 04/02/2015 Appointment: Claudette Savage WPtel: [phone] [facility] (15 min) Moderate 04/02/2015 Patient Education: [...] Summary Completed 12/02/2014 Referral: Belle Hoffman WPtel: [address] [place] [address] they will call and set the appt with her Initiated Referral: Maycol Quijano Referral Initiated Referral: Belle Hoffman WPtel: [phone] Referral [facility]iated [facility] [place] [facility] Initiated Instructions Comment . Hypertension [...] Ganglion cyst - will refer to Dr. Kai adams and chondroiton - joint ease, joint juice [...] she is to follow up with her senior java architect . Anxiety and Depression- the patient has [...] 1 mg at night for anxiety . Euetqjb-gecqibguwf-gainrrby-increase cymbalta to 60mg daily. Increase xanax as [...] allow for greater blood glucose control. . Right ankle/heel pain - the patient [...] 5pm. Daytime napping worsens night time insomnia. Breathing treatments 3 times a day x [...] improved, or if symptoms acutely worsen. . Arthritis- occasionally uncontrolled symptoms- recommend pt [...] - will refer to Dr. Hoffman . URI - Pt advised to increase [...] in the nasal steroid allergy spray. . Knee pain - pt is to [...] Knee pain - defer to ortho . Palpitations - pt states that she [...] 2 weeks for weight check. BELSOMRA . Owyepuv-uetiifltsb-uckjsefk with increase in cymbalta-no changes Insomnia-RX for belsomra provided and instructed on use Obesity-patient down 15#-no changes-continue diet/exercise-follow up in 2 months . Right heel pain - will send [...] if symptoms do not show improvement. . Insomnia - Pt has been advised [...]
[2018-07-24] MEDS ORDERED: FAMOTIDINE 20 MG (PEPCID) TABLET PO STA (23:26)
--- OUTSIDE RECORDS SUMMARY | 2018-07-24 23:27 | XMS REPORT | CCD ---
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 Name Role Phone PP Unavailable CCM Unavailable Summary Purpose Interface Exchange Insurance Providers Payer name Policy type / Coverage type Covered alliance party ID Effective Begin Date Effective End Date [facility] Commercial Insurance [id number] Unknown Family history Brother Diagnosis Age At [...] Description Effective Dates Tobacco history SNOMED CT: 1836953 Quit less than 5 years ago 04/02/2015 Alcohol history Unknown occasionally drinks alcohol 04/02/2015 Marital status Unknown Manuel Vitale 12/02/2014 Number of children Unknown 3 12/02/2014 Allergies, Adverse Reactions, Alerts Substance Reaction Codes Entered Date Inactivated Date Status * NO KNOWN FOOD ALLERGIES Unknown 12/02/2014 No Inactive Date Active Penicillin Unknown 12/02/2014 No Inactive Date Active tramadol RxNorm: 72081 12/02/2014 No Inactive Date Active Past Medical [...] Instructions Cymbalta 30 mg capsule,delayed release RxNorm: 094792 1 Capsule(s) PO daily to be taken with 60mg to=90mg 06/03/20182018 Active Cymbalta 30 mg capsule,delayed release RxNorm: 290777 1 Capsule(s) PO daily 06/03/2018 06/02/2018 Inactive Protonix 40 mg tablet,delayed release RxNorm: 870533 1 TABLET(S) PO DAILY 05/20/2018 09/16/2018 Active gabapentin 300 mg capsule RxNorm: 751972 1 CAPSULE(S) PO TID 07/13/2018 Active Protonix 40 mg tablet,delayed release RxNorm: 681685 1 Tablet(s) PO daily 04/24/2018 05/19/2018 Inactive Zorvolex 35 mg capsule RxNorm: 0458418 TAKE 1 CAPSULE BY MOUTH THREE (3) TIMES DAILY 04/22/2018 08/19/2018 Active hydrochlorothiazide 25 mg tablet RxNorm: 004519 1 TABLET(S) PO DAILY 04/08/2018 07/06/2018 Active Zorvolex 35 mg capsule RxNorm: 9913124 TAKE 1 CAPSULE BY MOUTH THREE (3) TIMES DAILY 03/27/2018 04/21/2018 Inactive gabapentin 300 mg capsule RxNorm: 296813 1 CAPSULE(S) PO TID 04/14/2018 Inactive hydrochlorothiazide 25 mg tablet RxNorm: 348606 1 Tablet(s) PO daily 03/14/2018 04/07/2018 Inactive Cymbalta 60 mg capsule,delayed release RxNorm: 780569 1 Capsule(s) PO daily TAKE 1 CAPSULE BY MOUTH DAILY 02/27/20182019 Active Victoza 2-Marek 0.6 mg/0.1 mL (18 mg/3 mL) subcutaneous pen injector RxNorm: 498229 Milligram(s) INJECT 1.8 MG SUB-Q ONCE DAILY 02/27/2018 08/20/2019 Active qty sufficient Xanax 1 mg tablet RxNorm: 260692 1-2 Tablet(s) PO QHS as needed insomnia 02/27/2018 05/27/2018 Inactive atorvastatin 20 mg tablet RxNorm: 815419 1 Tablet(s) PO daily 02/27/2018 05/22/2019 Active Ambien 10 mg tablet RxNorm: 148146 1 Tablet(s) PO QHS as needed insomnia 02/27/2018 05/26/2018 Inactive Cymbalta 60 mg capsule,delayed release RxNorm: 643882 TAKE 1 CAPSULE BY MOUTH DAILY 02/27/2018 02/26/2018 Inactive gabapentin 300 mg capsule RxNorm: 263670 1 Capsule(s) PO TID 03/24/2018 Inactive meloxicam 7.5 mg tablet RxNorm: 665596 1 Tablet(s) PO daily 1 TABLET(S) PO DAILY 02/27/2018 04/14/2018 Inactive atorvastatin 20 mg tablet RxNorm: 600499 1 Tablet(s) PO daily 02/05/2018 02/26/2018 Inactive atorvastatin 20 mg tablet RxNorm: 079817 1 Tablet(s) PO daily 02/05/2018 02/04/2018 Inactive meloxicam 7.5 mg tablet RxNorm: 875572 1 TABLET(S) PO DAILY 02/26/2018 Inactive oxycodone 15 mg tablet RxNorm: 8812142 1 Tablet(s) PO QID as needed 01/07/2018 02/19/2018 Inactive lactulose 20 gram/30 mL oral solution RxNorm: 476287 15-30 Milliliter(s) PO BID as needed 12/31/2017 02/20/2018 Inactive meloxicam 7.5 mg tablet RxNorm: 703005 1 TABLET(S) PO DAILY 06/201701/31/2018 Inactive Zorvolex 35 mg capsule RxNorm: 6631085 1 Capsule(s) PO TID 06/201702/20/2018 Inactive Ambien 10 mg tablet RxNorm: 310664 1 Tablet(s) PO QHS as needed insomnia 12/04/2017 02/26/2018 Inactive oxycodone 15 mg tablet RxNorm: 0029272 1 Tablet(s) PO QID as needed 12/04/2017 01/06/2018 Inactive prednisone 20 mg tablet RxNorm: 890271 2 Tablet(s) PO daily 12/08/2017 Inactive Victoza 2-Marek 0.6 mg/0.1 mL (18 mg/3 mL) subcutaneous pen injector RxNorm: 733176 Milligram(s) INJECT 1.8 MG SUB-Q ONCE DAILY 11/20/2017 02/26/2018 Inactive meloxicam 7.5 mg tablet RxNorm: 783533 1 Tablet(s) PO daily 02/201812/12/2017 Inactive phentermine 37.5 mg tablet RxNorm: 562979 1 Tablet(s) PO daily 11/20/2017 12/19/2017 Inactive Ambien 10 mg tablet RxNorm: 010218 1 Tablet(s) PO QHS as needed insomnia 11/20/2017 12/18/2017 Inactive Xanax 1 mg tablet RxNorm: 660475 1.5 Tablet(s) PO QHS as needed insomnia 11/20/2017 02/26/2018 Inactive hydrocodone 7.5 mg-acetaminophen 325 mg tablet RxNorm: 257115 1 Tablet(s) PO TID as needed 11/16/2017 01/06/2018 Inactive Cymbalta 60 mg capsule,delayed release RxNorm: 711346 TAKE 1 CAPSULE BY MOUTH DAILY 11/02/2017 02/26/2018 Inactive Xanax 1 mg tablet RxNorm: 148239 1 Tablet(s) PO BID PRN as needed anxiety 10/04/2017 11/19/2017 Inactive Victoza 2-Marek 0.6 mg/0.1 mL (18 mg/3 mL) subcutaneous pen injector RxNorm: 251179 INJECT 1.8 MG SUB-Q ONCE DAILY 10/04/2017 11/19/2017 Inactive hydrocodone 7.5 mg-acetaminophen 325 mg tablet RxNorm: 229051 1 Tablet(s) PO TID as needed 09/17/2017 11/15/2017 Inactive hydrocodone 7.5 mg-acetaminophen 325 mg tablet RxNorm: 269449 1 Tablet(s) PO TID as needed 09/10/2017 09/16/2017 Inactive prednisone 10 mg tablet RxNorm: 751460 Tablet(s) PO 09/10/2017 11/13/2017 Inactive 6, 5,4,3,2,1 Zorvolex 35 mg capsule RxNorm: 1324092 1 Capsule(s) PO TID 11/13/2017 Inactive Ambien 10 mg tablet RxNorm: 990390 1 Tablet(s) PO QHS as needed insomnia 08/29/2017 11/19/2017 Inactive Zorvolex 35 mg capsule RxNorm: 3090382 1 Capsule(s) PO TID 09/06/2017 Inactive Zorvolex 35 mg capsule RxNorm: 6615381 1 Capsule(s) PO TID 06/201708/27/2017 Inactive Zorvolex 35 mg capsule RxNorm: 5488316 1 Capsule(s) PO TID 06/201708/12/2017 Inactive prednisone 20 mg tablet RxNorm: 857846 2 Tablet(s) PO daily 08/04/2017 Inactive hydrocodone 7.5 mg-acetaminophen 325 mg tablet RxNorm: 699903 1 Tablet(s) PO TID as needed 07/31/2017 09/09/2017 Inactive Zorvolex 35 mg capsule RxNorm: 7674521 1 Capsule(s) PO TID as needed 07/31/2017 11/13/2017 Inactive ceftriaxone 500 mg solution for injection RxNorm: 5207816 1 Milliliter(s) Inj 06/27/2017 06/27/2017 Inactive Keflex 500 mg capsule RxNorm: 754001 1 Capsule(s) PO TID 201707/03/2017 Inactive Ambien 10 mg tablet RxNorm: 362836 1 Tablet(s) PO daily 201708/25/2017 Inactive tramadol 50 mg tablet RxNorm: 792298 1 Tablet(s) PO TID as needed 05/29/2017 07/27/2017 Inactive Xanax 1 mg tablet RxNorm: 186367 1 Tablet(s) PO BID PRN as needed anxiety 05/21/2017 10/03/2017 Inactive alprazolam 1 mg tablet RxNorm: 232400 1 Tablet(s) PO BID as needed 05/21/2017 06/19/2017 Inactive Celebrex 200 mg capsule RxNorm: 788308 1 CAPSULE(S) PO BID 11/05/2017 Inactive prednisone 20 mg tablet RxNorm: 564950 2 Tablet(s) PO daily 12/201604/24/2017 Inactive Ambien 10 mg tablet RxNorm: 493484 Tablet(s) PO 04/20/2017 05/28/2017 Inactive hydrocodone 5 mg-acetaminophen 325 mg tablet RxNorm: 555548 1 Tablet(s) PO QID as needed 04/20/2017 08/01/2017 Inactive Cymbalta 60 mg capsule,delayed release RxNorm: 206655 1 Capsule(s) PO daily 04/20/2017 02/26/2018 Inactive Victoza 2-Marek 0.6 mg/0.1 mL (18 mg/3 mL) subcutaneous pen injector RxNorm: 795403 INJECT 1.8 MG SUB-Q ONCE DAILY 03/26/2017 09/21/2017 Inactive diazepam 2 mg tablet RxNorm: 353966 1 Tablet(s) PO QHS as needed insomnia 01/28/2017 05/07/2017 Inactive Victoza 2-Marek 0.6 mg/0.1 mL (18 mg/3 mL) subcutaneous pen injector RxNorm: 790879 1.8 Milligram(s) SQ daily 01/26/201703/25 Inactive dispense quantity sufficient Tussionex Pennkinetic ER 10 mg-8 mg/5 mL suspension, extended release RxNorm: 3975045 5 Milliliter(s) PO BID 01/11/2017 01/15/2017 Inactive Xanax 1 mg tablet RxNorm: 278481 1 Tablet(s) PO BID PRN as needed anxiety 01/11/2017 05/20/2017 Inactive Zithromax Z-Marek 250 mg tablet RxNorm: 012157 1 Tablet(s) PO UD 01/11/2017 01/15/2017 Inactive zpack albuterol sulfate 2.5 mg/3 mL (0.083 %) solution for nebulization RxNorm: 440896 3 Milliliter(s) INH UD 01/11/201707/2017 Inactive prednisone 20 mg tablet RxNorm: 379333 2 Tablet(s) PO daily 01/15/2017 Inactive Kenalog 40 mg/mL suspension for injection RxNorm: 6877743 1.5 Milliliter(s) Inj 01/11/2017 01/11/2017 Inactive Celebrex 200 mg capsule RxNorm: 020588 1 Capsule(s) PO BID 02/27/2017 Inactive Ambien 5 mg tablet RxNorm: 927720 1 Tablet(s) PO HS PRN 11/3008/07/2017 Inactive trazodone 50 mg tablet RxNorm: 517446 1/2 to 1 Tablet(s) PO QHS 10/13/2016 10/12/2016 Inactive trazodone 50 mg tablet RxNorm: 372914 1/2 to 1 Tablet(s) PO QHS 10/13/2016 11/29/2016 Inactive Belsomra 10 mg tablet RxNorm: 2941333 1 Tablet(s) PO QHS 201611/29/2016 Inactive may increase to 20mg if 10mg not effective Cymbalta 60 mg capsule,delayed release RxNorm: 849562 1 Capsule(s) PO daily 08/24/2016 03/21/2017 Inactive Xanax 1 mg tablet RxNorm: 915871 1 Tablet(s) PO BID PRN as needed anxiety 08/24/2016 01/10/2017 Inactive Victoza 2-Marek 0.6 mg/0.1 mL (18 mg/3 mL) subcutaneous pen injector RxNorm: 190889 Milligram(s) SQ 08/24/2016 08/23/2016 Inactive Victoza 2-Marek 0.6 mg/0.1 mL (18 mg/3 mL) subcutaneous pen injector RxNorm: 094630 1.8 Milligram(s) SQ 08/24/2016 01/25/2017 Inactive Vitamin D2 50,000 unit capsule RxNorm: 577647 1 Capsule(s) PO QW 07/13/2016 10/10/2016 Inactive Cymbalta 30 mg capsule,delayed release RxNorm: 479723 1 Capsule(s) PO daily 07/13/2016 08/23/2016 Inactive Belviq XR 20 mg tablet,extended release RxNorm: 7908839 1 Tablet(s) PO daily 05/30/2016 05/29/2016 Inactive prednisone 20 mg tablet RxNorm: 753979 2 Tablet(s) PO daily 06/03/2016 Inactive prednisone 20 mg tablet RxNorm: 172419 2 Tablet(s) PO daily 05/29/2016 Inactive Belviq XR 20 mg tablet,extended release RxNorm: 8340477 1 Tablet(s) PO daily 05/30/2016 06/28/2016 Inactive cyclobenzaprine 5 mg tablet RxNorm: 156014 1-2 Tablet(s) PO TID as needed 05/19/2016 05/23/2016 Inactive metoprolol succinate ER 25 mg tablet,extended release 24 hr RxNorm: 998768 1 Tablet(s) PO QPM 04/10/2016 04/13/2016 Inactive metoprolol succinate ER 25 mg tablet,extended release 24 hr RxNorm: 516413 1 Tablet(s) PO QPM 04/10/2016 04/09/2016 Inactive escitalopram 10 mg tablet RxNorm: 816014 1 Tablet(s) PO daily 03/16/2016 07/12/2016 Inactive estradiol 1 mg tablet RxNorm: 280407 1 Tablet(s) PO every other day 03/16/2016 05/15/2016 Inactive Kenalog 40 mg/mL suspension for injection RxNorm: 9104770 Milliliter(s) Inj 02/28/2016 02/28/2016 Inactive Zithromax Z-Marek 250 mg tablet RxNorm: 319718 1 Tablet(s) PO UD 02/28/2016 03/03/2016 Inactive zpack Lexapro 10 mg tablet RxNorm: 981573 1 Tablet(s) PO daily 201502/27/2016 Inactive Lexapro 10 mg tablet RxNorm: 650612 1 Tablet(s) PO daily 201509/26/2015 Inactive Vimovo 500 mg-20 mg tablet,immediate and delay release RxNorm: 379172 1 Tablet(s) PO BID as needed for pain 08/30/201509/25 Inactive azithromycin 250 mg tablet RxNorm: 919510 1 Tablet(s) PO UD 2 pills on day #1, then one pill daily x 4 days 07/15/2015 Inactive hydrocodone 10 mg-acetaminophen 325 mg tablet RxNorm: 708826 1 Tablet(s) PO QID 06/16/2015 01/12/2016 Inactive pramipexole 0.5 mg tablet RxNorm: 301347 1 Tablet(s) PO QPM 07/201507/14/2015 Inactive Celebrex 200 mg capsule RxNorm: 602787 1 Capsule(s) PO daily 05/02/2015 Inactive Celebrex 200 mg capsule RxNorm: 297666 1 Capsule(s) PO daily 01/12/2016 Inactive hydrocodone 7.5 mg-acetaminophen 325 mg tablet RxNorm: 994021 1 Tablet(s) PO Q6 PRN 05/03/2015 06/15/2015 Inactive Mobic 15 mg tablet RxNorm: 288919 1 Tablet(s) PO daily 201405/02/2015 Inactive hydrocodone 7.5 mg-acetaminophen 325 mg tablet RxNorm: 226359 1 Tablet(s) PO Q6 PRN 04/02/2015 05/02/2015 Inactive hydrocodone 5 mg-acetaminophen 325 mg tablet RxNorm: 081589 1 Tablet(s) PO Q6 as needed 12/11/2014 04/01/2015 Inactive Pennsaid 1.5 % topical drops RxNorm: 530993 40 Drop(s) TOP QID as needed 12/07/2014 02/04/2015 Inactive Apply 40 drops to each knee joint 4 times per day as needed for osteoarthritis pain estradiol 1 mg tablet RxNorm: 609824 1 Tablet(s) PO QHS No Start Date 03/15/2016 Inactive Xanax 0.5 mg tablet RxNorm: 177125 1 Tablet(s) PO Q6 as needed anxiety No Start Date 08/23/2016 Inactive Tylenol Extra Strength 500 mg tablet RxNorm: 049973 3 Tablet(s) PO BID after breakfast and after lunch No Start Date Inactive lactulose 20 gram/30 mL oral solution RxNorm: 593746 15-30 Milliliter(s) PO BID as needed No Start Date 12/30/2017 Inactive hydrocodone 5 mg-acetaminophen 325 mg tablet RxNorm: 926593 1 Tablet(s) PO Q6 as needed No Start Date 12/10/2014 Inactive Phenergan-Codeine syrup RxNorm: 5-10 Milliliter(s) PO QID as needed No Start Date 11/13/2017 Inactive ibuprofen 200 mg capsule RxNorm: 283390 4 Capsule(s) PO QID as needed No Start Date 04/01/2015 Inactive Medication Administered Medication Codes Instructions Start Date Status ceftriaxone 500 mg solution for injection RxNorm: 1509579 1Milliliter 06/27/2017 No longer Active Kenalog 40 mg/mL suspension for injection RxNorm: 8468928 1.5Milliliter 01/11/2017 No longer Active Kenalog 40 mg/mL suspension for injection RxNorm: 5190935 Milliliter 02/28/2016 No longer Active Immunizations Vaccine [...] Code Item Item Code Result Date %Hba1C Jul579 % HbA1c 85217-0 6.7 % 11/20/2017 %Hba1C Eov483 Gluc Ave 146 mg/dL 11/20/2017 Tsh Ord6 hTSH II 1.27 uIU/mL 05/21/2017 Comp Metabolic Dbz215 NA 140 mEq/L 05/21/2017 Comp Metabolic Cdt318 K 3.9 mEq/L 05/21/2017 Comp Metabolic Wfm391 CL 101 mEq/L 05/21/2017 Comp Metabolic Kgk019 CO2 28.0 mEq/L 05/21/2017 Comp Metabolic Yru948 ANION GAP 15 05/21/2017 Comp Metabolic Rfi165 GLUCOSE 155 mg/dL 05/21/2017 Comp Metabolic Pln197 Creat 0.7 mg/dL 05/21/2017 Comp Metabolic Trc429 eGFR 87 ml/min/1.73m2 05/21/2017 Comp Metabolic Fnd050 BUN 16 mg/dL 05/21/2017 Comp Metabolic Gnm688 B/C Ratio 21.6 Ratio 05/21/2017 Comp Metabolic Opp226 CALCIUM 9.4 mg/dL 05/21/2017 Comp Metabolic Pyk312 ALK PHOS 132 U/L 05/21/2017 Comp Metabolic Wky597 AST(SGOT) 16 U/L 05/21/2017 Comp Metabolic Avf076 ALT(SGPT) 20 U/L 05/21/2017 Comp Metabolic Jmv692 BILI T 0.4 mg/dL 05/21/2017 Comp Metabolic Ies458 ALBUMIN 4.0 g/dL 05/21/2017 Comp Metabolic Qdw828 TPRO 6.7 g/dL 05/21/2017 Comp Metabolic Rot662 GLOB 2.7 g/dL 05/21/2017 Comp Metabolic Hmw123 A/G Ratio 1.5 Ratio 05/21/2017 Comp Metabolic Tab717 Osmo 284 mOsmo 05/21/2017 Cbc With Differential [...] 18.8 % 05/21/2017 Cbc With Differential Ord2 [place]% 5.5 % 05/21/2017 Cbc With Differential Ord2 [...] 2.65 K/ul 05/21/2017 Cbc With Differential Ord2 [place] ABS# 0.8 K/ul 05/21/2017 Cbc With Differential Ord2 Eos ABS# 0.1 K/ul 05/21/2017 Cbc With Differential Ord2 Baso ABS# 0.0 K/ul 05/21/2017 Free T4 Cmd657 FREE T4 0.76 ng/dL 05/21/2017 Estrogens Total 039417 ESTROGENS, TOTAL 54 pg/mL 05/24/2016 Magnesium Ord90 Mag 1.8 mg/dL 05/19/2016 Tsh Ord6 hTSH II 1.56 uIU/mL 05/19/2016 Comp Metabolic Bsc038 NA 136 mEq/L 05/19/2016 Comp Metabolic Vrd912 K 4.3 mEq/L 05/19/2016 Comp Metabolic Waq077 CL 100 mEq/L 05/19/2016 Comp Metabolic Xtk671 CO2 28.0 mEq/L 05/19/2016 Comp Metabolic Tsp703 ANION GAP 12 05/19/2016 Comp Metabolic Sod822 GLUCOSE 138 mg/dL 05/19/2016 Comp Metabolic Eak469 Creat 0.7 mg/dL 05/19/2016 Comp Metabolic Rbw559 eGFR 89 ml/min/1.73m2 05/19/2016 Comp Metabolic Fho350 BUN 15 mg/dL 05/19/2016 Comp Metabolic Wui001 B/C Ratio 20.5 Ratio 05/19/2016 Comp Metabolic Czg196 CALCIUM 9.7 mg/dL 05/19/2016 Comp Metabolic Miw160 ALK PHOS 106 U/L 05/19/2016 Comp Metabolic Vab262 AST(SGOT) 21 U/L 05/19/2016 Comp Metabolic Aoo318 ALT(SGPT) 24 U/L 05/19/2016 Comp Metabolic Yjp308 BILI T 0.4 mg/dL 05/19/2016 Comp Metabolic Ijn415 ALBUMIN 4.1 g/dL 05/19/2016 Comp Metabolic Pui017 TPRO 7.1 g/dL 05/19/2016 Comp Metabolic Bdx035 GLOB 3.0 g/dL 05/19/2016 Comp Metabolic Lxp636 A/G Ratio 1.4 Ratio 05/19/2016 Comp Metabolic Fgq219 Osmo 275 mOsmo 05/19/2016 Cbc With Differential [...] 28.5 pg 05/19/2016 Cbc With Differential Ord2 [place]% 6.5 % 05/19/2016 Cbc With Differential Ord2 [...] 2.33 K/ul 05/19/2016 Cbc With Differential Ord2 [place] ABS# 0.6 K/ul 05/19/2016 Cbc With Differential Ord2 Eos ABS# 0.1 K/ul 05/19/2016 Cbc With Differential Ord2 Baso ABS# 0.0 K/ul 05/19/2016 Progesterone Prog 0.03 ng/mL 05/19/2016 C RAP A SC 5879149 Strep A Negative 02/28/2016 Tsh Ord6 hTSH [...] 26.2 pg 08/16/2015 Cbc With Differential Ord2 [place]% 7.1 % 08/16/2015 Cbc With Differential Ord2 [...] 2.32 K/ul 08/16/2015 Cbc With Differential Ord2 [place] ABS# 0.6 K/ul 08/16/2015 Cbc With Differential Ord2 Eos ABS# 0.1 K/ul 08/16/2015 Cbc With Differential Ord2 Baso ABS# 0.0 K/ul 08/16/2015 Cbc With Differential Ord2 New Analyzer Notice Please note new ref ranges starting 05-26-2015 due to implemntation of new five part differential hematolgy analyzer. 08/16/2015 Comp Metabolic Qor634 NA 132 mEq/L 08/16/2015 Comp Metabolic Phk057 K 3.6 mEq/L 08/16/2015 Comp Metabolic Mfm385 CL 99 mEq/L 08/16/2015 Comp Metabolic Vpl141 CO2 23.0 mEq/L 08/16/2015 Comp Metabolic Exo264 ANION GAP 14 08/16/2015 Comp Metabolic Fnr946 GLUCOSE 101 mg/dL 08/16/2015 Comp Metabolic Ofj210 Creat 0.7 mg/dL 08/16/2015 Comp Metabolic Utr511 eGFR 100 ml/min/1.73m2 08/16/2015 Comp Metabolic Aoi933 BUN 10 mg/dL 08/16/2015 Comp Metabolic Dxi005 B/C Ratio 15.2 Ratio 08/16/2015 Comp Metabolic Hnv431 CALCIUM 9.3 mg/dL 08/16/2015 Comp Metabolic Ssi850 ALK PHOS 100 U/L 08/16/2015 Comp Metabolic Ksv171 AST(SGOT) 14 U/L 08/16/2015 Comp Metabolic Hmd836 ALT(SGPT) 11 U/L 08/16/2015 Comp Metabolic Tvb298 BILI T 0.3 mg/dL 08/16/2015 Comp Metabolic Mnn719 ALBUMIN 3.9 g/dL 08/16/2015 Comp Metabolic Fbv714 TPRO 7.1 g/dL 08/16/2015 Comp Metabolic Ugc882 GLOB 3.2 g/dL 08/16/2015 Comp Metabolic Mfp645 A/G Ratio 1.2 Ratio 08/16/2015 Comp Metabolic Doz068 Osmo 264 mOsmo 08/16/2015 Lipid Ord30 CHOL 209 mg/dL 12/03/2014 Lipid Ord30 HDL 42.0 mg/dl 12/03/2014 Lipid Ord30 TRIG 219 mg/dL 12/03/2014 Lipid Ord30 LDL 123 mg/dL 12/03/2014 Lipid Ord30 C/HDL 5.0 Ratio 12/03/2014 Cbc With Differential Ord2 WBC 6.6 [...] 12/03/2014 D-Dimer D-DIMER 168 NG/ML 12/03/2014 D-Dimer 160783 COMMENT 12/03/2014 Tsh Ord6 hTSH II 1.13 uIU/mL 12/03/2014 Comp Metabolic Bsz262 NA 132 mEq/L 12/03/2014 Comp Metabolic Qgr582 K 4.0 mEq/L 12/03/2014 Comp Metabolic Qgx897 CL 101 mEq/L 12/03/2014 Comp Metabolic Rcd226 CO2 22.0 mEq/L 12/03/2014 Comp Metabolic Ugx188 ANION GAP 13 12/03/2014 Comp Metabolic Zol698 GLUCOSE 123 mg/dL 12/03/2014 Comp Metabolic Mtt287 Creat 0.7 mg/dL 12/03/2014 Comp Metabolic Ytc998 eGFR 97 ml/min/1.73m2 12/03/2014 Comp Metabolic Vnl673 BUN 10 mg/dL 12/03/2014 Comp Metabolic Rax491 B/C Ratio 14.7 Ratio 12/03/2014 Comp Metabolic Rke516 CALCIUM 9.2 mg/dL 12/03/2014 Comp Metabolic Uii987 ALK PHOS 88 U/L 12/03/2014 Comp Metabolic Ser991 AST(SGOT) 18 U/L 12/03/2014 Comp Metabolic Mxz574 ALT(SGPT) 17 U/L 12/03/2014 Comp Metabolic Kcz466 BILI T 0.5 mg/dL 12/03/2014 Comp Metabolic Ojd457 ALBUMIN 3.9 g/dL 12/03/2014 Comp Metabolic Gxs403 TPRO 6.8 g/dL 12/03/2014 Comp Metabolic Ucu125 GLOB 2.9 g/dL 12/03/2014 Comp Metabolic Xrh322 A/G Ratio 1.3 Ratio 12/03/2014 Comp Metabolic Pvt342 Osmo 265 mOsmo 12/03/2014 Review of Systems System Result Effective [...] obese 05/19/2016 None Full Exam - General 1995 Constitutional general appearance Evidence of Distress: in [...] Procedure Codes Date THER/PROPH/DIAG INJ SC/IM CPT-4: 37668 06/27/2017 ROCEPHIN, PER 250 MG CPT-4: J0696 06/27/2017 IMMUNIZATION ADMIN CPT -4: 30508 03/16/2017 FLU VAC NO PRSV 4 FLETCHER 3 YRS+ CPT-4: 69806 03/16/2017 Pneumococcal Polysaccharide Vaccine, 23-Valent, Ad CPT-4: 16982 03/16/2017 IMMUNIZATION ADMIN EACH ADD CPT-4: 92789 03/16/2017 TRIAMCINOLONE ACET INJ NOS CPT-4: J3301 01/11/2017 TRIAMCINOLONE ACET INJ NOS CPT-4: J3301 02/28/2016 Vital Signs Date Vital 04/24/2018 Blood Pressure 1: 128/74 Code : 8480-6 BMI: 37.8 Code : 01477-0 Heart Rate 1 : 107 bpm Height: 5'6" SpO2: 98% Weight: 234 lbs 04/17/2018 Blood Pressure 1: 120/64 Code : 8480-6 BMI: 37.8 Code : 90467-8 Heart Rate 1 : 84 bpm Height: 5'6" SpO2: 96% Weight: 234 lbs 03/14/2018 Blood Pressure 1: 140/82 Code : 8480-6 BMI: 37.8 Code : 08726-8 Heart Rate 1 : 85 bpm Height: 5'6" SpO2: 98% Weight: 234 lbs 02/27/2018 Blood Pressure 1: 142/68 Code : 8480-6 BMI: 36.5 Code : 75139-5 Heart Rate 1 : 84 bpm Height: 5'6" SpO2: 97% Weight: 226 lbs 12/19/2017 Blood Pressure 1: 130/86 Code : 8480-6 BMI: 35.7 Code : 06364-5 Heart Rate 1 : 94 bpm Height: 5'6" Weight: 221 lbs 12/04/2017 Blood Pressure 1: 138/78 Code : 8480-6 BMI: 36.6 Code : 00348-8 Heart Rate 1 : 94 bpm Height: 5'6" SpO2: 98% Weight: 227 lbs 11/20/2017 Weight: 233 lbs 09/10/2017 Blood Pressure 1: 132/86 Code : 8480-6 Heart Rate 1: 86 bpm Height: Weight: 08/14/2017 Blood Pressure 1: 120/74 Code : 8480-6 BMI: 33.9 Code : 78446-7 Heart Rate 1 : 92 bpm Height: 5'6" SpO2: 94% Weight: 210 lbs 07/31/2017 Blood Pressure 1: 140/80 Code : 8480-6 BMI: 33.9 Code : 83182-4 Heart Rate 1 : 96 bpm Height: 5'6" SpO2: 97% Weight: 210 lbs 06/27/2017 Blood Pressure 1: 128/80 Code : 8480-6 BMI: 33.9 Code : 06435-1 Heart Rate 1 : 85 bpm Height: [...] Code : 8480-6 BMI: 39.9 Code : 12070-8 Heart Rate 1 : 79 bpm Height: 5'6" SpO2: 97% Weight: 247 lbs 01/26/2017 Blood Pressure 1: 132/74 Code : 8480-6 BMI: 37.8 Code : 45126-2 Heart Rate 1 : 74 bpm Height: 5'6" SpO2: 97% Weight: 234 lbs 01/11/2017 Blood Pressure 1: 118/68 Code : 8480-6 BMI: 38.7 Code : 00289-8 Heart Rate 1 : 91 bpm Height: 5'6" SpO2: 96% Weight: 240 lbs 11/30/2016 Blood Pressure 1: 132/76 Code : 8480-6 BMI: 38.3 Code : 62683-0 Heart Rate 1 : 71 bpm Height: 5'6" SpO2: 92% Weight: 237 lbs 09/28/2016 Blood Pressure 1: 122/72 Code : 8480-6 BMI: 39.1 Code : 73277-0 Heart Rate 1 : 88 bpm Height: 5'6" SpO2: 94% Weight: 242 lbs 08/24/2016 Blood Pressure 1: 130/87 Code : 8480-6 BMI: 41.5 Code : 27451-0 Heart Rate 1 : 95 bpm Height: 5'6" Respiratory Rate: 16 bpm SpO2: 98% Temperature: 36.9 (C) / 98.5 (F ) Weight: 257 lbs 07/13/2016 Blood Pressure 1: 132/84 Code : 8480-6 BMI: 42.0 Code : 64658-8 Heart Rate 1 : 73 bpm Height: 5'6" SpO2: 97% Weight: 260 lbs 05/19/2016 Blood Pressure 1: 138/76 Code : 8480-6 BMI: 40.8 Code : 69356-5 Heart Rate 1 : 80 bpm Height: 5'6" SpO2: 98% Weight: 253 lbs 03/16/2016 Blood Pressure 1: 122/70 Code : 8480-6 BMI: 40.4 Code : 96544-3 Heart Rate 1 : 72 bpm Height: 5'6" SpO2: 98% Weight: 250 lbs 02/28/2016 Blood Pressure 1: 136/86 Code : 8480-6 BMI: 40.2 Code : 61418-9 Heart Rate 1 : 87 bpm Height: 5'6" SpO2: 96% Temperature: 36.3 (C) / 97.3 (F) Weight: 249 lbs 01/13/2016 Blood Pressure 1: 120/76 Code : 8480-6 BMI: 40.4 Code : 68845-7 Heart Rate 1 : 68 bpm Height: 5'6" SpO2: 97% Weight: 250 lbs 09/27/2015 Blood Pressure 1: 112/70 Code : 8480-6 BMI: 38.4 Code : 57543-1 Heart Rate 1 : 76 bpm Height: 5'6" SpO2: 98% Weight: 238 lbs 08/30/2015 Blood Pressure 1: 144/82 Code : 8480-6 BMI: 39.5 Code : 52299-0 Heart Rate 1 : 82 bpm Height: 5'6" SpO2: 97% Weight: 245 lbs 08/16/2015 Blood Pressure 1: 140/72 Code : 8480-6 BMI: 38.9 Code : 61759-0 Heart Rate 1 : 72 bpm Height: 5'6" SpO2: 97% Weight: 241 lbs 07/15/2015 Blood Pressure 1: 128/80 Code : 8480-6 BMI: 39.3 Code : 79381-1 Heart Rate 1 : 86 bpm Height: 5'6" SpO2: 98% Weight: 243 lbs 8 oz 06/16/2015 Blood Pressure 1: 146/86 Code : 8480-6 BMI: 39.6 Code : 28615-9 Heart Rate 1 : 76 bpm Height: 5'6" SpO2: 97% Weight: 245 lbs 8 oz 04/02/2015 Blood Pressure 1: 132/86 Code : 8480-6 BMI: 40.7 Code : 88280-8 Heart Rate 1 : 94 bpm Height: 5'6" SpO2: 98% Weight: 252 lbs 12/02/2014 Blood Pressure 1: 122/90 Code : 8480-6 BMI: 41.6 Code : 66290-5 Heart Rate 1 : 77 bpm Height: [...] Other chest pain[ICD10: R07.89] Petra Trejo MD, [facility] CPT-4 : 10516 04/24/2018 [id number] EST. PATIENT, LEVEL III Diagnosis: Generalized anxiety disorder[ICD10: F41.1] Diagnosis: Major depressive disorder, recurrent, mild[ICD10: F33.0] Diagnosis: Essential (primary) hypertension[ICD10: I10] Diagnosis: Type 2 diabetes mellitus without complications[ICD10: E11.9] Ptera Trejo MD , [facility] CPT-4: 14430 04/17/2018 [id number] EST. PATIENT, LEVEL III Diagnosis: Localized edema[ICD10: R60.0] Diagnosis: Essential (primary) hypertension[ICD10: I10] Petra Trejo MD, [facility] CPT-4: 02043 03/14/2018 12149 EST. PATIENT, LEVEL III Diagnosis: Pain in left knee[ICD10: M25.562] Diagnosis: Other obesity due to excess calories[ICD10: E66.09] Diagnosis: Other insomnia[ICD10: G47.09] Diagnosis: Generalized anxiety disorder[ICD10: F41.1] Petra Trejo MD, [facility] CPT-4: 24530 02/27/2018 ([id number]) Miscellaneous no charge Diagnosis: Other obesity due to excess calories[ICD10: E66.09] Heidy Trejo MD, [facility] CPT-4: 06209 12/19/2017 06286 EST. PATIENT, LEVEL III Diagnosis: Pain in right foot[ICD10: M79.671] Diagnosis: Pain in right ankle and joints of right foot[ICD10: M25.571] Petra Trejo MD , [facility] CPT-4: 58879 12/04/2017 84595 EST. PATIENT, LEVEL III Diagnosis: Pain in left knee[ICD10: M25.562] Diagnosis: Type 2 diabetes mellitus without complications[ICD10: E11.9] Diagnosis: Other obesity due to excess calories[ICD10: E66.09] Petra Trejo MD, [facility] CPT-4: 90753 11/20/2017 20107 EST. PATIENT, LEVEL III Diagnosis: Pain in left knee[ICD10: M25.562] Petra Trejo MD, [facility] CPT -4: 48629 09/10/2017 88014 EST. PATIENT, LEVEL III Diagnosis: Encounter for follow-up examination after completed treatment for conditions other than malignant neoplasm[ICD10: Z09] Diagnosis: Pain in left knee[ICD10: M25.562] Petra Trejo MD, [facility] CPT -4: 53240 08/14/2017 08082 EST. PATIENT, LEVEL III Diagnosis: Pain in left knee[ICD10: M25.562] Petra Trejo MD, [facility] CPT -4: 39361 07/31/2017 41904 EST. PATIENT, LEVEL III Diagnosis: Acute laryngopharyngitis[ICD10: J06.0] Diagnosis: Other allergic rhinitis[ICD10: J30.89] Petra Trejo MD, [facility] CPT-4: 73937 06/27/2017 71291 EST. PATIENT, LEVEL III Diagnosis: Ganglion, left hand[ICD10: M67.442] Diagnosis: Essential (primary) hypertension[ICD10: I10] Diagnosis: Generalized anxiety disorder[ICD10: F41.1] Diagnosis: Other insomnia[ICD10: G47.09] Petra Trejo MD, [facility] CPT-4 : 90754 05/29/2017 64101 EST. PATIENT, LEVEL III Diagnosis: Essential (primary) hypertension[ICD10: I10] Diagnosis: Palpitations[ICD10: R00.2] Diagnosis: Generalized anxiety disorder[ICD10: F41.1] Petra Trejo MD, [facility] CPT-4: 06267 05/21/2017 93316 EST. PATIENT, LEVEL III Diagnosis: Pain in right foot[ICD10: M79.671] Petra Trejo MD, [facility] CPT-4: 21198 04/20/2017 09278 EST. PATIENT, LEVEL IV Diagnosis: Other insomnia[ICD10: G47.09] Diagnosis: Other skin changes[ICD10: R23.8] Petra Trejo MD, [facility] CPT- 4: 46204 01/26/2017 50942 EST. PATIENT, LEVEL IV Diagnosis: Acute bronchitis due to other specified organisms[ICD10: J20.8] Petra Trejo MD, [facility] CPT-4: 81066 01/11/2017 ([id number]) 79306 EST. PATIENT, LEVEL IV Diagnosis: Essential (primary) hypertension[ICD10: I10] Diagnosis: Other insomnia[ICD10: G47.09] Diagnosis: Primary generalized (osteo)arthritis[ICD10: M15.0] Diagnosis: Other obesity due to excess calories[ICD10: E66.09] Claudette Trejo MD, [facility] CPT-4: 65481 11/30/2016 ([id number]) 84529 EST. PATIENT, LEVEL III Diagnosis: Other obesity due to excess calories[ICD10: E66.09] Diagnosis: Other insomnia[ICD10: G47.09] Diagnosis: Generalized anxiety disorder[ICD10: F41.1] Claudette Trejo MD, [facility] CPT-4: 93529 09/28/2016 ([id number]) 42513 EST. PATIENT, LEVEL IV Diagnosis: Generalized anxiety disorder[ICD10: F41.1] Diagnosis: Major depressive disorder, recurrent, mild[ICD10: F33.0] Diagnosis: Other obesity due to excess calories[ICD10: E66.09] Diagnosis: Other insomnia[ICD10: G47.09] Claudette Trejo MD, [facility] CPT-4: 74624 08/24/2016 ([id number]) 51380 EST. PATIENT, LEVEL III Diagnosis: Other obesity due to excess calories[ICD10: E66.09] Diagnosis: Major depressive disorder, recurrent, moderate[ICD10: F33.1] Diagnosis: Low back pain[ICD10: M54.5] Heidy Trejo MD, [facility] CPT- 4: 66537 07/13/2016 13382 EST. PATIENT, LEVEL IV Diagnosis: Other muscle spasm[ICD10: M62.838] Diagnosis: Generalized anxiety disorder[ICD10: F41.1] Diagnosis: Major depressive disorder, recurrent, moderate[ICD10: F33.1] Diagnosis: Other insomnia[ICD10: G47.09] Petra Trejo MD, [facility] CPT-4 : 72586 05/19/2016 ([id number]) 30171 EST. PATIENT, LEVEL III Diagnosis: Generalized anxiety disorder[ICD10: F41.1] Diagnosis: Major depressive disorder, recurrent, moderate[ICD10: F33.1] Heidy Trejo MD, [facility] CPT-4: 63295 03/16/2016 ([id number]) 26988 EST. PATIENT, LEVEL III Diagnosis: Streptococcal pharyngitis[ICD10: J02.0] Claudette Trejo MD, [facility] CPT-4: 55869 02/28/2016 ([id number]) 45472 EST. PATIENT, LEVEL III Diagnosis: Generalized anxiety disorder[ICD10: F41.1] Diagnosis: Other obesity due to excess calories[ICD10: E66.09] Heidy Trejo MD, [facility] CPT-4: 74808 01/13/2016 ([id number]) 41321 EST. PATIENT, LEVEL III Diagnosis: Generalized anxiety disorder[ICD10: F41.1] Diagnosis: Major depressive disorder, recurrent, unspecified[ICD10: F33.9] Heidy Trejo MD, [facility] CPT-4: 77916 09/27/2015 64044 EST. PATIENT, LEVEL IV Diagnosis: Chronic pain syndrome[ICD10: G89.4] Diagnosis: Other obesity due to excess calories[ICD10: E66.09] Diagnosis: Essential (primary) hypertension[ICD10: I10] Diagnosis: Generalized anxiety disorder[ICD10: F41.1] Diagnosis: Excessive and frequent menstruation with regular cycle[ICD10: N92.0] Diagnosis: Pain in right knee[ICD10: M25.561] Petra Trejo MD, [facility] CPT-4: 22997 08/30/2015 47026 EST. PATIENT, LEVEL IV Diagnosis: Palpitations[ICD10: R00.2] Diagnosis: Other obesity due to excess calories[ICD10: E66.09] Petra Trejo MD, [facility] CPT-4: 60349 08/16/2015 ([id number]) 16040 EST. PATIENT, LEVEL IV Diagnosis: Pain in right knee[ICD10: M25.561] Diagnosis: Primary generalized (osteo)arthritis[ICD10: M15.0] Diagnosis: Acute maxillary sinusitis, unspecified[ICD10: J01.00] Heidy Trejo MD, [facility] CPT-4: 84228 07/15/2015 ([id number]) 64939 EST. PATIENT, LEVEL IV Diagnosis: Primary generalized (osteo)arthritis[ICD10: M15.0] Diagnosis: Restless legs syndrome[ICD10: G25.81] Diagnosis: Chronic pain syndrome[ICD10: G89.4] Heidy Trejo MD, [facility] CPT-4: 67872 06/16/2015 ([id number]) 01207 EST. PATIENT, LEVEL III Diagnosis: Primary generalized (osteo)arthritis[ICD10: M15.0] Diagnosis: Varicose veins of bilateral lower extremities with pain[ICD10: I83.813] [facility] CPT-4: 26935 ([id number]) OFFICE VISIT, NEW - LEVEL 3 Diagnosis: Osteoarthritis[ICD9: 715.90] Diagnosis: ABNORMAL WEIGHT GAIN[ICD9: 783.1] Diagnosis: Superficial thrombophlebitis[ICD9: 451.9] Carey Trejo MD, [facility] CPT-4: 62702 12/02/2014 Plan of Care Planned Activity Notes [...] she is to follow up with her destination specialist 04/24/2018 [phone] [place] ([facility] Complex 04/24/2018 Patient [...] glucose control. 04/17/2018 [facility]ment[phone] [place] (15 min) Moderate 04/17/2018 Patient Education: [...] edema. 03/14/2018 Appointment: Petra Rivas WPtel: [phone] [facility] (15 min) Moderate 03/14/2018 Patient Education: Patient [...] to ortho 02/27/2018 Appointment: Petra Rivas WPtel: [facility] [facility] 02/27/2018 Patient Education: [...] improve. 12/04/2017 Appointment: [phone] [place] (15 min) Moderate 12/04/2017 Patient [...] control. 11/20/2017 App[facility]ment[phone] [place] (15 min) Moderate 11/20/2017 Patient [...] improve. 09/10/2017 Appointment: [phone] [place] (15 min) Moderate 09/10/2017 Patient [...] not improve. 08/14/2017 Appointment: Petra Rivas WPtel: [facility] (30 min) Complex 08/14/2017 Patient Education: Patient Medication Summary Completed 08/14/2017 Appointment: Petra Rivas WPtel: [address] [place], [place] [phone] [place] (15 min) Moderate 08/01/2017 Visit Plan: Knee pain - pt is to use RICE - Rest, Ice, Compression, Elevation - pt is to use crutches as directed - The pt is to use prn antiinflammatories to manage acute pain. The patient is to call the office if the pain is worsening or does not improve. 07/31/2017 Appointment: Petra Rivas WPtel: [facility] [place] (30 min) Complex 07/31/2017 Patient Education: Patient Medication Summary Completed 07/31/2017 Care Plan: X-RAY EXAM OF KNEE 3 LOINC : 47355-9 Pending 07/31/2017 Visit Plan: URI - Pt [...] allergy spray. 06/27/2017 Appointment: Petra Rivas WPtel: [facility] [place] (15 min) Moderate 06/27/2017 Patient Education: Patient Medication Summary Completed 06/27/2017 Referral: Jignesh Quinn [facility] Patient informed. Referral info faxed. [...] Dr. Quinn 05/29/2017 Appointment: Petra Rivas WPtel[facility] ([facility] Moderate 05/29/2017 Patient Education: Patient Medication Summary Completed 05/29/2017 Care Plan: Referral Order SNOMED-CT : 833328314 Pending 05/29/2017 App[facility]ment: [phone] (15 min) Moderate 05/28/2017 Visit Plan: [...] concerns. 05/21/2017 Appointment: Petra Rivas WPtel: [phone] [facility] (15 min) Moderate 05/21/2017 Patient Education: Patient Medication Summary Completed 05/21/2017 Visit Plan: Right heel pain - will send RX, pt is to do stretches as directed - The pt is to use prn antiinflammatories to manage acute pain. The patient is to call the office if the pain is worsening or does not improve. 04/20/2017 Appointment: Petra Rivas WPtel: [facility] (30 min) Complex 04/20/2017 Patient Education: Patient Medication Summary Completed 04/20/2017 Appointment: Petra Rivas WPtel: [phone] [facility] (30 min) Complex 03/29/2017 Patient Education: Patient Medication Summary Completed 03/16/2017 Referral: Maycol Quijano Referral Initiated 02/08/2017 Care Plan: Referral Order SNOMED-CT : [id number] Pending 01/28/2017 Visit Plan: Insomnia - Pt [...] or concerns. 01/26/2017 Appointment: Petra Rivas WPtel: [facility] (30 min) Complex [...] App[facility]: [phone] (15 min) Moderate 01/11/2017 Patient Education: [...] use. 11/30/2016 [facility]ment: [phone] (15 min) Moderate 11/30/2016 Patient Education: Patient Medication Summary Completed 11/30/2016 Patient Education: Obesity Completed 11/30/2016 Care Plan: BMI Above normal followup SELF-MGMT EDUC & TRAIN 1 PT Pending 2016 Visit Plan: Opfkxjn-jwpezgddvo-brdnulav with increase in cymbalta-no changes Insomnia-RX for belsomra provided and instructed on use Obesity-patient down 15#-no changes-continue diet/exercise-follow up in 2 months 09/28/2016 App[facility]ment: [phone] (15 min) Moderate 09/28/2016 Patient Education: Patient Medication Summary Completed 09/28/2016 Patient Education: Obesity Completed 09/28/2016 Care Plan: BMI Above normal followup SELF-MGMT EDUC & TRAIN 1 PT Pending 2016 Visit Plan: Bqugatc-kpwndrhwch-xqarzruq-increase cymbalta to 60mg daily. Increase xanax as [...] for insomnia/anxiety 08/24/2016 Appointment: Claudette Savage WPtel: [address] [place], [place] [phone] (15 min) Moderate 08/24/2016 Patient Education: Patient [...] not improving. 07/13/2016 Appointment: Heidy Trejo WPtel: [address] [place], [place] [id number] (15 min) Moderate 07/13/2016 Patient Education: Patient [...] night time insomnia. 05/19/2016 Appointment: Petra Rivas WPtel:[phone] [facility] (30 min) Complex 05/19/2016 Patient Education: [...] patient. 03/16/2016 Appointment: Heidy Trejo WPtel: [phone] [facility] (15 min) Moderate 03/16/2016 Patient Education: Patient [...] swab. 02/28/2016 Appointment: Claudette Savage WPtel: [phone] [phone] [place] (10 min) [...] lexapro 01/13/2016 [facility]ment: [phone] (15 min) Moderate 01/13/2016 Patient Education: Patient [...] 09/27/2015 Care Plan: Referral Order SNOMED-CT : [id number] Pending 08/31/2015 Visit Plan: Anxiety - the [...] pain symptoms. 07/15/2015 Appointment: Heidy Trejo WPtel: [address] [place] [address] (15 min) Moderate 07/15/2015 Patient Education: Patient [...] vein clinic 04/02/2015 Appointment: Claudette Savage WPtel: [facility] (15 min) Moderate 04/02/2015 Patient Education: Patient [...] Completed 12/02/2014 Referral: Belle Hoffman WPtel: [facility] they will call and set the appt with her Initiated Referral: Macyol Quijano Referral Initiated Referral: Belle Hoffman WPtel: [facility] Referral Initiated Referral: Jignesh Quinn [place] Referral Initiated Instructions Comment . Arthritis- [...] is to call for acute concerns. . Insomnia - Pt has been advised [...] changes , questions, or concerns. . Anxiety - the patient has uncontrolled [...] 1 mg at night for anxiety . Qqbssjj-bvkhkjcpow-rlpaxnsh-increase cymbalta to 60mg daily. Increase xanax as [...] not improved, or if symptoms acutely worsen. contrave website contrave 1 pill nightly x [...] a medication such as mirapex or requip. Breathing treatments 3 times a day x [...] appropriately prescribed for this patient. . Right heel pain - will send RX, pt is to do stretches as directed - The pt is to use prn antiinflammatories to manage acute pain. The patient is to call the office if the pain is worsening or does not improve. BELSOMRA . Yqpzgku-aeeackycyi-esqhblvn with increase in cymbalta-no changes Insomnia-RX for [...] today - will culture the swab. . Knee pain - pt is to [...] in the nasal steroid allergy spray. . RUQ pain - pt has had [...] she is to follow up with her destination specialist glucosamine and chondroiton - joint ease, joint [...]
[2018-07-24 23:30] LABS: ALANINE AMINOTRANSFERASE 29 U/L (0-55); ALKALINE PHOSPHATASE 179 U/L (40-136); BILIRUBIN,TOTAL 0.3 MG/DL (0.1-1.0); BUN/CREATININE RATIO 27; CALCIUM 9.6 MG/DL (8.5-10.1); CARBON DIOXIDE 24 MMOL/L (21-32); CHLORIDE 100 MMOL/L (98-107); GFR ESTIMATED > 60; LIPASE 88 U/L (8-78); MAGNESIUM 2.2 MG/DL (1.8-2.4); POTASSIUM 4.2 MMOL/L (3.6-5.0); SODIUM 137 MMOL/L (135-145); TOTAL PROTEIN 7.4 GM/DL (6.4-8.2)
[2018-07-24] MEDS ORDERED: LIDOCAINE 2% VISCOUS 15 ML UDC PO ONE (23:30)
[2018-07-24] MEDS ORDERED: ANTACID SUSP 30 ML UDC (MYLANTA) PO ONE (23:30)
--- OUTSIDE RECORDS SUMMARY | 2018-07-24 23:32 | XMS REPORT | CCD ---
Author Author [place] Organization [facility] Address [address] [place] [address] Phone Care Team Providers Care Dials Inspector Name Role Phone PP Unavailable CCM Unavailable Summary Purpose Interface Exchange Insurance Providers Payer name Policy type / Coverage type Covered green party ID Effective Begin Date Effective End Date [facility] Commercial Insurance [id number] Unknown Family history Brother Diagnosis Age At [...] Description Effective Dates Tobacco history SNOMED CT: 1784269 Quit less than 5 years ago 04/02/2015 Alcohol history Unknown occasionally drinks alcohol 04/02/2015 Marital status Unknown Manuel Vitale 12/02/2014 Number of children Unknown 3 12/02/2014 Allergies, Adverse Reactions, Alerts Substance Reaction Codes Entered Date Inactivated Date Status * NO KNOWN FOOD ALLERGIES Unknown 12/02/2014 No Inactive Date Active Penicillin Unknown 12/02/2014 No Inactive Date Active tramadol RxNorm: 90556 12/02/2014 No Inactive Date Active Past Medical [...] Start Date Stop Date Status Fill Instructions Protonix 40 mg tablet,delayed release RxNorm: 707031 1 TABLET(S) PO DAILY 05/20/2018 09/16/2018 Active gabapentin 300 mg capsule RxNorm: 936099 1 CAPSULE(S) PO TID 07/13/2018 Active Protonix 40 mg tablet,delayed release RxNorm: 197493 1 Tablet(s) PO daily 04/24/2018 05/19/2018 Inactive Zorvolex 35 mg capsule RxNorm: 4712781 TAKE 1 CAPSULE BY MOUTH THREE (3) TIMES DAILY 04/22/2018 08/19/2018 Active hydrochlorothiazide 25 mg tablet RxNorm: 093454 1 TABLET(S) PO DAILY 04/08/2018 07/06/2018 Active Zorvolex 35 mg capsule RxNorm: 0955928 TAKE 1 CAPSULE BY MOUTH THREE (3) TIMES DAILY 03/27/2018 04/21/2018 Inactive gabapentin 300 mg capsule RxNorm: 923492 1 CAPSULE(S) PO TID 04/14/2018 Inactive hydrochlorothiazide 25 mg tablet RxNorm: 893964 1 Tablet(s) PO daily 03/14/2018 04/07/2018 Inactive Cymbalta 60 mg capsule,delayed release RxNorm: 699748 1 Capsule(s) PO daily TAKE 1 CAPSULE BY MOUTH DAILY 02/27/20182019 Active Victoza 2-Marek 0.6 mg/0.1 mL (18 mg/3 mL) subcutaneous pen injector RxNorm: 740990 Milligram(s) INJECT 1.8 MG SUB-Q ONCE DAILY 02/27/2018 08/20/2019 Active qty sufficient Xanax 1 mg tablet RxNorm: 327904 1-2 Tablet(s) PO QHS as needed insomnia 02/27/2018 05/27/2018 Active atorvastatin 20 mg tablet RxNorm: 273005 1 Tablet(s) PO daily 02/27/2018 05/22/2019 Active Ambien 10 mg tablet RxNorm: 038497 1 Tablet(s) PO QHS as needed insomnia 02/27/2018 05/26/2018 Active Cymbalta 60 mg capsule,delayed release RxNorm: 132654 TAKE 1 CAPSULE BY MOUTH DAILY 02/27/2018 02/26/2018 Inactive gabapentin 300 mg capsule RxNorm: 265419 1 Capsule(s) PO TID 03/24/2018 Inactive meloxicam 7.5 mg tablet RxNorm: 364250 1 Tablet(s) PO daily 1 TABLET(S) PO DAILY 02/27/2018 04/14/2018 Inactive atorvastatin 20 mg tablet RxNorm: 303326 1 Tablet(s) PO daily 02/05/2018 02/26/2018 Inactive atorvastatin 20 mg tablet RxNorm: 854477 1 Tablet(s) PO daily 02/05/2018 02/04/2018 Inactive meloxicam 7.5 mg tablet RxNorm: 179297 1 TABLET(S) PO DAILY 02/26/2018 Inactive oxycodone 15 mg tablet RxNorm: 0332291 1 Tablet(s) PO QID as needed 01/07/2018 02/19/2018 Inactive lactulose 20 gram/30 mL oral solution RxNorm: 493380 15-30 Milliliter(s) PO BID as needed 12/31/2017 02/20/2018 Inactive meloxicam 7.5 mg tablet RxNorm: 229402 1 TABLET(S) PO DAILY 06/201701/31/2018 Inactive Zorvolex 35 mg capsule RxNorm: 7903365 1 Capsule(s) PO TID 06/201702/20/2018 Inactive Ambien 10 mg tablet RxNorm: 582819 1 Tablet(s) PO QHS as needed insomnia 12/04/2017 02/26/2018 Inactive oxycodone 15 mg tablet RxNorm: 9903860 1 Tablet(s) PO QID as needed 12/04/2017 01/06/2018 Inactive prednisone 20 mg tablet RxNorm: 687857 2 Tablet(s) PO daily 12/08/2017 Inactive Victoza 2-Marek 0.6 mg/0.1 mL (18 mg/3 mL) subcutaneous pen injector RxNorm: 800409 Milligram(s) INJECT 1.8 MG SUB-Q ONCE DAILY 11/20/2017 02/26/2018 Inactive meloxicam 7.5 mg tablet RxNorm: 055364 1 Tablet(s) PO daily 02/201812/12/2017 Inactive phentermine 37.5 mg tablet RxNorm: 393230 1 Tablet(s) PO daily 11/20/2017 12/19/2017 Inactive Ambien 10 mg tablet RxNorm: 877943 1 Tablet(s) PO QHS as needed insomnia 11/20/2017 12/18/2017 Inactive Xanax 1 mg tablet RxNorm: 453363 1.5 Tablet(s) PO QHS as needed insomnia 11/20/2017 02/26/2018 Inactive hydrocodone 7.5 mg-acetaminophen 325 mg tablet RxNorm: 452287 1 Tablet(s) PO TID as needed 11/16/2017 01/06/2018 Inactive Cymbalta 60 mg capsule,delayed release RxNorm: 802116 TAKE 1 CAPSULE BY MOUTH DAILY 11/02/2017 02/26/2018 Inactive Xanax 1 mg tablet RxNorm: 879874 1 Tablet(s) PO BID PRN as needed anxiety 10/04/2017 11/19/2017 Inactive Victoza 2-Marek 0.6 mg/0.1 mL (18 mg/3 mL) subcutaneous pen injector RxNorm: 294531 INJECT 1.8 MG SUB-Q ONCE DAILY 10/04/2017 11/19/2017 Inactive hydrocodone 7.5 mg-acetaminophen 325 mg tablet RxNorm: 293691 1 Tablet(s) PO TID as needed 09/17/2017 11/15/2017 Inactive hydrocodone 7.5 mg-acetaminophen 325 mg tablet RxNorm: 440576 1 Tablet(s) PO TID as needed 09/10/2017 09/16/2017 Inactive prednisone 10 mg tablet RxNorm: 655169 Tablet(s) PO 09/10/2017 11/13/2017 Inactive 6, 5,4,3,2,1 Zorvolex 35 mg capsule RxNorm: 8995094 1 Capsule(s) PO TID 11/13/2017 Inactive Ambien 10 mg tablet RxNorm: 171315 1 Tablet(s) PO QHS as needed insomnia 08/29/2017 11/19/2017 Inactive Zorvolex 35 mg capsule RxNorm: 6965842 1 Capsule(s) PO TID 09/06/2017 Inactive Zorvolex 35 mg capsule RxNorm: 2923121 1 Capsule(s) PO TID 06/201708/27/2017 Inactive Zorvolex 35 mg capsule RxNorm: 6098682 1 Capsule(s) PO TID 06/201708/12/2017 Inactive prednisone 20 mg tablet RxNorm: 652107 2 Tablet(s) PO daily 08/04/2017 Inactive hydrocodone 7.5 mg-acetaminophen 325 mg tablet RxNorm: 941856 1 Tablet(s) PO TID as needed 07/31/2017 09/09/2017 Inactive Zorvolex 35 mg capsule RxNorm: 7829966 1 Capsule(s) PO TID as needed 07/31/2017 11/13/2017 Inactive ceftriaxone 500 mg solution for injection RxNorm: 8812782 1 Milliliter(s) Inj 06/27/2017 06/27/2017 Inactive Keflex 500 mg capsule RxNorm: 956134 1 Capsule(s) PO TID 201707/03/2017 Inactive Ambien 10 mg tablet RxNorm: 869050 1 Tablet(s) PO daily 201708/25/2017 Inactive tramadol 50 mg tablet RxNorm: 105805 1 Tablet(s) PO TID as needed 05/29/2017 07/27/2017 Inactive Xanax 1 mg tablet RxNorm: 330503 1 Tablet(s) PO BID PRN as needed anxiety 05/21/2017 10/03/2017 Inactive alprazolam 1 mg tablet RxNorm: 699297 1 Tablet(s) PO BID as needed 05/21/2017 06/19/2017 Inactive Celebrex 200 mg capsule RxNorm: 193133 1 CAPSULE(S) PO BID 11/05/2017 Inactive prednisone 20 mg tablet RxNorm: 489970 2 Tablet(s) PO daily 12/201604/24/2017 Inactive Ambien 10 mg tablet RxNorm: 262707 Tablet(s) PO 04/20/2017 05/28/2017 Inactive hydrocodone 5 mg-acetaminophen 325 mg tablet RxNorm: 248022 1 Tablet(s) PO QID as needed 04/20/2017 08/01/2017 Inactive Cymbalta 60 mg capsule,delayed release RxNorm: 984761 1 Capsule(s) PO daily 04/20/2017 02/26/2018 Inactive Victoza 2-Marek 0.6 mg/0.1 mL (18 mg/3 mL) subcutaneous pen injector RxNorm: 422463 INJECT 1.8 MG SUB-Q ONCE DAILY 03/26/2017 09/21/2017 Inactive diazepam 2 mg tablet RxNorm: 894379 1 Tablet(s) PO QHS as needed insomnia 01/28/2017 05/07/2017 Inactive Victoza 2-Marek 0.6 mg/0.1 mL (18 mg/3 mL) subcutaneous pen injector RxNorm: 991083 1.8 Milligram(s) SQ daily 01/26/201703/25 Inactive dispense quantity sufficient Tussionex Pennkinetic ER 10 mg-8 mg/5 mL suspension, extended release RxNorm: 9169761 5 Milliliter(s) PO BID 01/11/2017 01/15/2017 Inactive Xanax 1 mg tablet RxNorm: 343838 1 Tablet(s) PO BID PRN as needed anxiety 01/11/2017 05/20/2017 Inactive Zithromax Z-Marek 250 mg tablet RxNorm: 461745 1 Tablet(s) PO UD 01/11/2017 01/15/2017 Inactive zpack albuterol sulfate 2.5 mg/3 mL (0.083 %) solution for nebulization RxNorm: 446375 3 Milliliter(s) INH UD 01/11/201707/2017 Inactive prednisone 20 mg tablet RxNorm: 630283 2 Tablet(s) PO daily 01/15/2017 Inactive Kenalog 40 mg/mL suspension for injection RxNorm: 6205666 1.5 Milliliter(s) Inj 01/11/2017 01/11/2017 Inactive Celebrex 200 mg capsule RxNorm: 015163 1 Capsule(s) PO BID 02/27/2017 Inactive Ambien 5 mg tablet RxNorm: 882006 1 Tablet(s) PO HS PRN 11/3008/07/2017 Inactive trazodone 50 mg tablet RxNorm: 857736 1/2 to 1 Tablet(s) PO QHS 10/13/2016 10/12/2016 Inactive trazodone 50 mg tablet RxNorm: 099095 1/2 to 1 Tablet(s) PO QHS 10/13/2016 11/29/2016 Inactive Belsomra 10 mg tablet RxNorm: 7560987 1 Tablet(s) PO QHS 201611/29/2016 Inactive may increase to 20mg if 10mg not effective Cymbalta 60 mg capsule,delayed release RxNorm: 660481 1 Capsule(s) PO daily 08/24/2016 03/21/2017 Inactive Xanax 1 mg tablet RxNorm: 028315 1 Tablet(s) PO BID PRN as needed anxiety 08/24/2016 01/10/2017 Inactive Victoza 2-Marek 0.6 mg/0.1 mL (18 mg/3 mL) subcutaneous pen injector RxNorm: 743533 Milligram(s) SQ 08/24/2016 08/23/2016 Inactive Victoza 2-Marek 0.6 mg/0.1 mL (18 mg/3 mL) subcutaneous pen injector RxNorm: 612805 1.8 Milligram(s) SQ 08/24/2016 01/25/2017 Inactive Vitamin D2 50,000 unit capsule RxNorm: 541934 1 Capsule(s) PO QW 07/13/2016 10/10/2016 Inactive Cymbalta 30 mg capsule,delayed release RxNorm: 938220 1 Capsule(s) PO daily 07/13/2016 08/23/2016 Inactive Belviq XR 20 mg tablet,extended release RxNorm: 2801812 1 Tablet(s) PO daily 05/30/2016 05/29/2016 Inactive prednisone 20 mg tablet RxNorm: 644660 2 Tablet(s) PO daily 06/03/2016 Inactive prednisone 20 mg tablet RxNorm: 396233 2 Tablet(s) PO daily 05/29/2016 Inactive Belviq XR 20 mg tablet,extended release RxNorm: 4814675 1 Tablet(s) PO daily 05/30/2016 06/28/2016 Inactive cyclobenzaprine 5 mg tablet RxNorm: 243950 1-2 Tablet(s) PO TID as needed 05/19/2016 05/23/2016 Inactive metoprolol succinate ER 25 mg tablet,extended release 24 hr RxNorm: 081528 1 Tablet(s) PO QPM 04/10/2016 04/13/2016 Inactive metoprolol succinate ER 25 mg tablet,extended release 24 hr RxNorm: 087617 1 Tablet(s) PO QPM 04/10/2016 04/09/2016 Inactive escitalopram 10 mg tablet RxNorm: 028520 1 Tablet(s) PO daily 03/16/2016 07/12/2016 Inactive estradiol 1 mg tablet RxNorm: 562322 1 Tablet(s) PO every other day 03/16/2016 05/15/2016 Inactive Kenalog 40 mg/mL suspension for injection RxNorm: 1567903 Milliliter(s) Inj 02/28/2016 02/28/2016 Inactive Zithromax Z-Marek 250 mg tablet RxNorm: 232747 1 Tablet(s) PO UD 02/28/2016 03/03/2016 Inactive zpack Lexapro 10 mg tablet RxNorm: 982320 1 Tablet(s) PO daily 201502/27/2016 Inactive Lexapro 10 mg tablet RxNorm: 693494 1 Tablet(s) PO daily 201509/26/2015 Inactive Vimovo 500 mg-20 mg tablet,immediate and delay release RxNorm: 740304 1 Tablet(s) PO BID as needed for pain 08/30/201509/25 Inactive azithromycin 250 mg tablet RxNorm: 536760 1 Tablet(s) PO UD 2 pills on day #1, then one pill daily x 4 days 07/15/2015 Inactive hydrocodone 10 mg-acetaminophen 325 mg tablet RxNorm: 994667 1 Tablet(s) PO QID 06/16/2015 01/12/2016 Inactive pramipexole 0.5 mg tablet RxNorm: 128481 1 Tablet(s) PO QPM 07/201507/14/2015 Inactive Celebrex 200 mg capsule RxNorm: 255125 1 Capsule(s) PO daily 05/02/2015 Inactive Celebrex 200 mg capsule RxNorm: 295538 1 Capsule(s) PO daily 01/12/2016 Inactive hydrocodone 7.5 mg-acetaminophen 325 mg tablet RxNorm: 149781 1 Tablet(s) PO Q6 PRN 05/03/2015 06/15/2015 Inactive Mobic 15 mg tablet RxNorm: 031040 1 Tablet(s) PO daily 201405/02/2015 Inactive hydrocodone 7.5 mg-acetaminophen 325 mg tablet RxNorm: 091915 1 Tablet(s) PO Q6 PRN 04/02/2015 05/02/2015 Inactive hydrocodone 5 mg-acetaminophen 325 mg tablet RxNorm: 011915 1 Tablet(s) PO Q6 as needed 12/11/2014 04/01/2015 Inactive Pennsaid 1.5 % topical drops RxNorm: 110482 40 Drop(s) TOP QID as needed 12/07/2014 02/04/2015 Inactive Apply 40 drops to each knee joint 4 times per day as needed for osteoarthritis pain estradiol 1 mg tablet RxNorm: 941497 1 Tablet(s) PO QHS No Start Date 03/15/2016 Inactive Xanax 0.5 mg tablet RxNorm: 937504 1 Tablet(s) PO Q6 as needed anxiety No Start Date 08/23/2016 Inactive Tylenol Extra Strength 500 mg tablet RxNorm: 448491 3 Tablet(s) PO BID after breakfast and after lunch No Start Date Inactive lactulose 20 gram/30 mL oral solution RxNorm: 373719 15-30 Milliliter(s) PO BID as needed No Start Date 12/30/2017 Inactive hydrocodone 5 mg-acetaminophen 325 mg tablet RxNorm: 996499 1 Tablet(s) PO Q6 as needed No Start Date 12/10/2014 Inactive Phenergan-Codeine syrup RxNorm: 5-10 Milliliter(s) PO QID as needed No Start Date 11/13/2017 Inactive ibuprofen 200 mg capsule RxNorm: 233402 4 Capsule(s) PO QID as needed No Start Date 04/01/2015 Inactive Medication Administered Medication Codes Instructions Start Date Status ceftriaxone 500 mg solution for injection RxNorm: 5860565 1Milliliter 06/27/2017 No longer Active Kenalog 40 mg/mL suspension for injection RxNorm: 8682186 1.5Milliliter 01/11/2017 No longer Active Kenalog 40 mg/mL suspension for injection RxNorm: 5502251 Milliliter 02/28/2016 No longer Active Immunizations Vaccine [...] Code Item Item Code Result Date %Hba1C Xuk953 % HbA1c 64146-0 6.7 % 11/20/2017 %Hba1C Oxl718 Gluc Ave 146 mg/dL 11/20/2017 Free T4 Kej251 FREE T4 0.76 ng/dL 05/21/2017 Tsh Ord6 hTSH II 1.27 uIU/mL 05/21/2017 Comp Metabolic Rfz851 NA 140 mEq/L 05/21/2017 Comp Metabolic Dbo463 K 3.9 mEq/L 05/21/2017 Comp Metabolic Zgy776 CL 101 mEq/L 05/21/2017 Comp Metabolic Pyn776 CO2 28.0 mEq/L 05/21/2017 Comp Metabolic Tyv896 ANION GAP 15 05/21/2017 Comp Metabolic Fyi508 GLUCOSE 155 mg/dL 05/21/2017 Comp Metabolic Rsi956 Creat 0.7 mg/dL 05/21/2017 Comp Metabolic Nyw683 eGFR 87 ml/min/1.73m2 05/21/2017 Comp Metabolic Wwa896 BUN 16 mg/dL 05/21/2017 Comp Metabolic Fhq622 B/C Ratio 21.6 Ratio 05/21/2017 Comp Metabolic Uwb530 CALCIUM 9.4 mg/dL 05/21/2017 Comp Metabolic Bdy159 ALK PHOS 132 U/L 05/21/2017 Comp Metabolic Iev617 AST(SGOT) 16 U/L 05/21/2017 Comp Metabolic Eyk409 ALT(SGPT) 20 U/L 05/21/2017 Comp Metabolic Wmx065 BILI T 0.4 mg/dL 05/21/2017 Comp Metabolic Bun755 ALBUMIN 4.0 g/dL 05/21/2017 Comp Metabolic Hkr603 TPRO 6.7 g/dL 05/21/2017 Comp Metabolic Vcm778 GLOB 2.7 g/dL 05/21/2017 Comp Metabolic Bnr324 A/G Ratio 1.5 Ratio 05/21/2017 Comp Metabolic Tcm456 Osmo 284 mOsmo 05/21/2017 Cbc With Differential [...] 28.9 pg 05/21/2017 Cbc With Differential Ord2 Frederick% 5.5 % 05/21/2017 Cbc With Differential Ord2 [...] 2.65 K/ul 05/21/2017 Cbc With Differential Ord2 Frederick ABS# 0.8 K/ul 05/21/2017 Cbc With Differential Ord2 Eos ABS# 0.1 K/ul 05/21/2017 Cbc With Differential Ord2 Baso ABS# 0.0 K/ul 05/21/2017 Estrogens Total 745297 ESTROGENS, TOTAL 54 pg/mL 05/24/2016 Magnesium Ord90 Mag 1.8 mg/dL 05/19/2016 Tsh Ord6 hTSH II 1.56 uIU/mL 05/19/2016 Progesterone Prog 0.03 ng/mL 05/19/2016 Comp Metabolic Oom162 NA 136 mEq/L 05/19/2016 Comp Metabolic Cel366 K 4.3 mEq/L 05/19/2016 Comp Metabolic Asf660 CL 100 mEq/L 05/19/2016 Comp Metabolic Mut094 CO2 28.0 mEq/L 05/19/2016 Comp Metabolic Fzc513 ANION GAP 12 05/19/2016 Comp Metabolic Eny302 GLUCOSE 138 mg/dL 05/19/2016 Comp Metabolic Zaf324 Creat 0.7 mg/dL 05/19/2016 Comp Metabolic Zei259 eGFR 89 ml/min/1.73m2 05/19/2016 Comp Metabolic Uvu638 BUN 15 mg/dL 05/19/2016 Comp Metabolic Odt515 B/C Ratio 20.5 Ratio 05/19/2016 Comp Metabolic Tjm012 CALCIUM 9.7 mg/dL 05/19/2016 Comp Metabolic Kuk765 ALK PHOS 106 U/L 05/19/2016 Comp Metabolic Yns109 AST(SGOT) 21 U/L 05/19/2016 Comp Metabolic Cob987 ALT(SGPT) 24 U/L 05/19/2016 Comp Metabolic Wkg722 BILI T 0.4 mg/dL 05/19/2016 Comp Metabolic Dfz397 ALBUMIN 4.1 g/dL 05/19/2016 Comp Metabolic Cgd293 TPRO 7.1 g/dL 05/19/2016 Comp Metabolic Bcu807 GLOB 3.0 g/dL 05/19/2016 Comp Metabolic Tci630 A/G Ratio 1.4 Ratio 05/19/2016 Comp Metabolic Oup431 Osmo 275 mOsmo 05/19/2016 Cbc With Differential [...] 86.5 fl 05/19/2016 Cbc With Differential Ord2 Frederick% 6.5 % 05/19/2016 Cbc With Differential Ord2 [...] 2.33 K/ul 05/19/2016 Cbc With Differential Ord2 Frederick ABS# 0.6 K/ul 05/19/2016 Cbc With Differential Ord2 Eos ABS# 0.1 K/ul 05/19/2016 Cbc With Differential Ord2 Baso ABS# 0.0 K/ul 05/19/2016 C RAP A SC 6243836 Strep A Negative 02/28/2016 Tsh Ord6 hTSH [...] 26.2 pg 08/16/2015 Cbc With Differential Ord2 Frederick% 7.1 % 08/16/2015 Cbc With Differential Ord2 [...] 2.32 K/ul 08/16/2015 Cbc With Differential Ord2 Frederick ABS# 0.6 K/ul 08/16/2015 Cbc With Differential Ord2 Eos ABS# 0.1 K/ul 08/16/2015 Cbc With Differential Ord2 Baso ABS# 0.0 K/ul 08/16/2015 Cbc With Differential Ord2 New Analyzer Notice Please note new ref ranges starting 05-26-2015 due to implemntation of new five part differential hematolgy analyzer. 08/16/2015 Comp Metabolic Xxi849 NA 132 mEq/L 08/16/2015 Comp Metabolic Oag116 K 3.6 mEq/L 08/16/2015 Comp Metabolic Ebk091 CL 99 mEq/L 08/16/2015 Comp Metabolic Qxr917 CO2 23.0 mEq/L 08/16/2015 Comp Metabolic Aej362 ANION GAP 14 08/16/2015 Comp Metabolic Exl133 GLUCOSE 101 mg/dL 08/16/2015 Comp Metabolic Rtu088 Creat 0.7 mg/dL 08/16/2015 Comp Metabolic Yym392 eGFR 100 ml/min/1.73m2 08/16/2015 Comp Metabolic Hhq547 BUN 10 mg/dL 08/16/2015 Comp Metabolic Mrr138 B/C Ratio 15.2 Ratio 08/16/2015 Comp Metabolic Uoy157 CALCIUM 9.3 mg/dL 08/16/2015 Comp Metabolic Ggz244 ALK PHOS 100 U/L 08/16/2015 Comp Metabolic Erd785 AST(SGOT) 14 U/L 08/16/2015 Comp Metabolic Psu474 ALT(SGPT) 11 U/L 08/16/2015 Comp Metabolic Vxg710 BILI T 0.3 mg/dL 08/16/2015 Comp Metabolic Zrn221 ALBUMIN 3.9 g/dL 08/16/2015 Comp Metabolic Yos166 TPRO 7.1 g/dL 08/16/2015 Comp Metabolic Kep922 GLOB 3.2 g/dL 08/16/2015 Comp Metabolic Zyf162 A/G Ratio 1.2 Ratio 08/16/2015 Comp Metabolic Foc338 Osmo 264 mOsmo 08/16/2015 Lipid Ord30 CHOL 209 mg/dL 12/03/2014 Lipid Ord30 HDL 42.0 mg/dl 12/03/2014 Lipid Ord30 TRIG 219 mg/dL 12/03/2014 Lipid Ord30 LDL 123 mg/dL 12/03/2014 Lipid Ord30 C/HDL 5.0 Ratio 12/03/2014 Comp Metabolic Gmg999 NA 132 mEq/L 12/03/2014 Comp Metabolic Zuk173 K 4.0 mEq/L 12/03/2014 Comp Metabolic Aon015 CL 101 mEq/L 12/03/2014 Comp Metabolic Awf157 CO2 22.0 mEq/L 12/03/2014 Comp Metabolic Hxd565 ANION GAP 13 12/03/2014 Comp Metabolic Hlh379 GLUCOSE 123 mg/dL 12/03/2014 Comp Metabolic Okn601 Creat 0.7 mg/dL 12/03/2014 Comp Metabolic Qao818 eGFR 97 ml/min/1.73m2 12/03/2014 Comp Metabolic Ksu935 BUN 10 mg/dL 12/03/2014 Comp Metabolic Aeu640 B/C Ratio 14.7 Ratio 12/03/2014 Comp Metabolic Dpn906 CALCIUM 9.2 mg/dL 12/03/2014 Comp Metabolic Cam140 ALK PHOS 88 U/L 12/03/2014 Comp Metabolic Spw870 AST(SGOT) 18 U/L 12/03/2014 Comp Metabolic Rel135 ALT(SGPT) 17 U/L 12/03/2014 Comp Metabolic Pxs678 BILI T 0.5 mg/dL 12/03/2014 Comp Metabolic Pwo629 ALBUMIN 3.9 g/dL 12/03/2014 Comp Metabolic Wzr786 TPRO 6.8 g/dL 12/03/2014 Comp Metabolic Lau099 GLOB 2.9 g/dL 12/03/2014 Comp Metabolic Joz576 A/G Ratio 1.3 Ratio 12/03/2014 Comp Metabolic Qtz080 Osmo 265 mOsmo 12/03/2014 Tsh Ord6 hTSH II 1.13 uIU/mL 12/03/2014 D-Dimer D-DIMER 168 NG/ML 12/03/2014 D-Dimer [id number] COMMENT 12/03/2014 Cbc With Differential Ord2 WBC [...] Procedure Codes Date THER/PROPH/DIAG INJ SC/IM CPT-4: 71273 06/27/2017 ROCEPHIN, PER 250 MG CPT-4: J0696 06/27/2017 IMMUNIZATION ADMIN CPT -4: 19396 03/16/2017 FLU VAC NO PRSV 4 FLETCHER 3 YRS+ CPT-4: 83718 03/16/2017 Pneumococcal Polysaccharide Vaccine, 23-Valent, Ad CPT-4: 03806 03/16/2017 IMMUNIZATION ADMIN EACH ADD CPT-4: 90647 03/16/2017 TRIAMCINOLONE ACET INJ NOS CPT-4: J3301 01/11/2017 TRIAMCINOLONE ACET INJ NOS CPT-4: J3301 02/28/2016 Vital Signs Date Vital 04/24/2018 Blood Pressure 1: 128/74 Code : 8480-6 BMI: 37.8 Code : 36485-0 Heart Rate 1 : 107 bpm Height: 5'6" SpO2: 98% Weight: 234 lbs 04/17/2018 Blood Pressure 1: 120/64 Code : 8480-6 BMI: 37.8 Code : 23723-8 Heart Rate 1 : 84 bpm Height: 5'6" SpO2: 96% Weight: 234 lbs 03/14/2018 Blood Pressure 1: 140/82 Code : 8480-6 BMI: 37.8 Code : 60985-3 Heart Rate 1 : 85 bpm Height: 5'6" SpO2: 98% Weight: 234 lbs 02/27/2018 Blood Pressure 1: 142/68 Code : 8480-6 BMI: 36.5 Code : 21817-9 Heart Rate 1 : 84 bpm Height: 5'6" SpO2: 97% Weight: 226 lbs 12/19/2017 Blood Pressure 1: 130/86 Code : 8480-6 BMI: 35.7 Code : 99133-4 Heart Rate 1 : 94 bpm Height: 5'6" Weight: 221 lbs 12/04/2017 Blood Pressure 1: 138/78 Code : 8480-6 BMI: 36.6 Code : 72094-8 Heart Rate 1 : 94 bpm Height: 5'6" SpO2: 98% Weight: 227 lbs 11/20/2017 Weight: 233 lbs 09/10/2017 Blood Pressure 1: 132/86 Code : 8480-6 Heart Rate 1: 86 bpm Height: Weight: 08/14/2017 Blood Pressure 1: 120/74 Code : 8480-6 BMI: 33.9 Code : 25105-4 Heart Rate 1 : 92 bpm Height: 5'6" SpO2: 94% Weight: 210 lbs 07/31/2017 Blood Pressure 1: 140/80 Code : 8480-6 BMI: 33.9 Code : 22916-2 Heart Rate 1 : 96 bpm Height: 5'6" SpO2: 97% Weight: 210 lbs 06/27/2017 Blood Pressure 1: 128/80 Code : 8480-6 BMI: 33.9 Code : 58488-4 Heart Rate 1 : 85 bpm Height: [...] Code : 8480-6 BMI: 39.9 Code : 52808-8 Heart Rate 1 : 79 bpm Height: 5'6" SpO2: 97% Weight: 247 lbs 01/26/2017 Blood Pressure 1: 132/74 Code : 8480-6 BMI: 37.8 Code : 49820-0 Heart Rate 1 : 74 bpm Height: 5'6" SpO2: 97% Weight: 234 lbs 01/11/2017 Blood Pressure 1: 118/68 Code : 8480-6 BMI: 38.7 Code : 88087-1 Heart Rate 1 : 91 bpm Height: 5'6" SpO2: 96% Weight: 240 lbs 11/30/2016 Blood Pressure 1: 132/76 Code : 8480-6 BMI: 38.3 Code : 25404-9 Heart Rate 1 : 71 bpm Height: 5'6" SpO2: 92% Weight: 237 lbs 09/28/2016 Blood Pressure 1: 122/72 Code : 8480-6 BMI: 39.1 Code : 99693-0 Heart Rate 1 : 88 bpm Height: 5'6" SpO2: 94% Weight: 242 lbs 08/24/2016 Blood Pressure 1: 130/87 Code : 8480-6 BMI: 41.5 Code : 43690-5 Heart Rate 1 : 95 bpm Height: 5'6" Respiratory Rate: 16 bpm SpO2: 98% Temperature: 36.9 (C) / 98.5 (F ) Weight: 257 lbs 07/13/2016 Blood Pressure 1: 132/84 Code : 8480-6 BMI: 42.0 Code : 32023-8 Heart Rate 1 : 73 bpm Height: 5'6" SpO2: 97% Weight: 260 lbs 05/19/2016 Blood Pressure 1: 138/76 Code : 8480-6 BMI: 40.8 Code : 22831-7 Heart Rate 1 : 80 bpm Height: 5'6" SpO2: 98% Weight: 253 lbs 03/16/2016 Blood Pressure 1: 122/70 Code : 8480-6 BMI: 40.4 Code : 98232-6 Heart Rate 1 : 72 bpm Height: 5'6" SpO2: 98% Weight: 250 lbs 02/28/2016 Blood Pressure 1: 136/86 Code : 8480-6 BMI: 40.2 Code : 26333-1 Heart Rate 1 : 87 bpm Height: 5'6" SpO2: 96% Temperature: 36.3 (C) / 97.3 (F) Weight: 249 lbs 01/13/2016 Blood Pressure 1: 120/76 Code : 8480-6 BMI: 40.4 Code : 62463-1 Heart Rate 1 : 68 bpm Height: 5'6" SpO2: 97% Weight: 250 lbs 09/27/2015 Blood Pressure 1: 112/70 Code : 8480-6 BMI: 38.4 Code : 41524-8 Heart Rate 1 : 76 bpm Height: 5'6" SpO2: 98% Weight: 238 lbs 08/30/2015 Blood Pressure 1: 144/82 Code : 8480-6 BMI: 39.5 Code : 68147-2 Heart Rate 1 : 82 bpm Height: 5'6" SpO2: 97% Weight: 245 lbs 08/16/2015 Blood Pressure 1: 140/72 Code : 8480-6 BMI: 38.9 Code : 27830-1 Heart Rate 1 : 72 bpm Height: 5'6" SpO2: 97% Weight: 241 lbs 07/15/2015 Blood Pressure 1: 128/80 Code : 8480-6 BMI: 39.3 Code : 73710-4 Heart Rate 1 : 86 bpm Height: 5'6" SpO2: 98% Weight: 243 lbs 8 oz 06/16/2015 Blood Pressure 1: 146/86 Code : 8480-6 BMI: 39.6 Code : 30840-5 Heart Rate 1 : 76 bpm Height: 5'6" SpO2: 97% Weight: 245 lbs 8 oz 04/02/2015 Blood Pressure 1: 132/86 Code : 8480-6 BMI: 40.7 Code : 10396-7 Heart Rate 1 : 94 bpm Height: 5'6" SpO2: 98% Weight: 252 lbs 12/02/2014 Blood Pressure 1: 122/90 Code : 8480-6 BMI: 41.6 Code : 57408-9 Heart Rate 1 : 77 bpm Height: [...] Other chest pain[ICD10: R07.89] Petra Trejo MD, [facility] CPT-4 : 50914 04/24/2018 17500 EST. PATIENT, LEVEL III Diagnosis: Generalized anxiety disorder[ICD10: F41.1] Diagnosis: Major depressive disorder, recurrent, mild[ICD10: F33.0] Diagnosis: Essential (primary) hypertension[ICD10: I10] Diagnosis: Type 2 diabetes mellitus without complications[ICD10: E11.9] Petra Trejo MD , [facility] CPT-4: 63100 04/17/2018 43300 EST. PATIENT, LEVEL III Diagnosis: Localized edema[ICD10: R60.0] Diagnosis: Essential (primary) hypertension[ICD10: I10] Petra Trejo MD, [facility] CPT-4: 24559 03/14/2018 [id number] EST. PATIENT, LEVEL III Diagnosis: Pain in left knee[ICD10: M25.562] Diagnosis: Other obesity due to excess calories[ICD10: E66.09] Diagnosis: Other insomnia[ICD10: G47.09] Diagnosis: Generalized anxiety disorder[ICD10: F41.1] Petra Trejo MD, [facility] CPT-4: 31828 02/27/2018 ([id number]) Miscellaneous no charge Diagnosis: Other obesity due to excess calories[ICD10: E66.09] Heidy Trejo MD, [facility] CPT-4: 77576 12/19/2017 21375 EST. PATIENT, LEVEL III Diagnosis: Pain in right foot[ICD10: M79.671] Diagnosis: Pain in right ankle and joints of right foot[ICD10: M25.571] Petra Trejo MD , [facility] CPT-4: 18853 12/04/2017 28199 EST. PATIENT, LEVEL III Diagnosis: Pain in left knee[ICD10: M25.562] Diagnosis: Type 2 diabetes mellitus without complications[ICD10: E11.9] Diagnosis: Other obesity due to excess calories[ICD10: E66.09] Petra Trejo MD, [facility] CPT-4: 48942 11/20/2017 50295 EST. PATIENT, LEVEL III Diagnosis: Pain in left knee[ICD10: M25.562] Petra Trejo MD, [facility] CPT -4: 15299 09/10/2017 68321 EST. PATIENT, LEVEL III Diagnosis: Encounter for follow-up examination after completed treatment for conditions other than malignant neoplasm[ICD10: Z09] Diagnosis: Pain in left knee[ICD10: M25.562] Petra Trejo MD, [facility] CPT -4: 01424 08/14/2017 46490 EST. PATIENT, LEVEL III Diagnosis: Pain in left knee[ICD10: M25.562] Petra Trejo MD, [facility] CPT -4: 44766 07/31/2017 50845 EST. PATIENT, LEVEL III Diagnosis: Acute laryngopharyngitis[ICD10: J06.0] Diagnosis: Other allergic rhinitis[ICD10: J30.89] Petra Trejo MD, [facility] CPT-4: 69006 06/27/2017 97332 EST. PATIENT, LEVEL III Diagnosis: Ganglion, left hand[ICD10: M67.442] Diagnosis: Essential (primary) hypertension[ICD10: I10] Diagnosis: Generalized anxiety disorder[ICD10: F41.1] Diagnosis: Other insomnia[ICD10: G47.09] Petra Trejo MD, [facility] CPT-4 : 88091 05/29/2017 87559 EST. PATIENT, LEVEL III Diagnosis: Essential (primary) hypertension[ICD10: I10] Diagnosis: Palpitations[ICD10: R00.2] Diagnosis: Generalized anxiety disorder[ICD10: F41.1] Petra Trejo MD, [facility] CPT-4: 31068 05/21/2017 60752 EST. PATIENT, LEVEL III Diagnosis: Pain in right foot[ICD10: M79.671] Petra Trejo MD, [facility] CPT-4: 46199 04/20/2017 38056 EST. PATIENT, LEVEL IV Diagnosis: Other insomnia[ICD10: G47.09] Diagnosis: Other skin changes[ICD10: R23.8] Petra Trejo MD, [facility] CPT- 4: 36992 01/26/2017 85060 EST. PATIENT, LEVEL IV Diagnosis: Acute bronchitis due to other specified organisms[ICD10: J20.8] Petra Trejo MD, [facility] CPT-4: 36219 01/11/2017 ([id number]) 76867 EST. PATIENT, LEVEL IV Diagnosis: Essential (primary) hypertension[ICD10: I10] Diagnosis: Other insomnia[ICD10: G47.09] Diagnosis: Primary generalized (osteo)arthritis[ICD10: M15.0] Diagnosis: Other obesity due to excess calories[ICD10: E66.09] Claudette Trejo MD, [facility] CPT-4: 96437 11/30/2016 ([id number]) 66577 EST. PATIENT, LEVEL III Diagnosis: Other obesity due to excess calories[ICD10: E66.09] Diagnosis: Other insomnia[ICD10: G47.09] Diagnosis: Generalized anxiety disorder[ICD10: F41.1] Claudette Trejo MD, [facility] CPT-4: 43723 09/28/2016 ([id number]) 09853 EST. PATIENT, LEVEL IV Diagnosis: Generalized anxiety disorder[ICD10: F41.1] Diagnosis: Major depressive disorder, recurrent, mild[ICD10: F33.0] Diagnosis: Other obesity due to excess calories[ICD10: E66.09] Diagnosis: Other insomnia[ICD10: G47.09] Claudette Trejo MD, [facility] CPT-4: 24193 08/24/2016 ([id number]) 41631 EST. PATIENT, LEVEL III Diagnosis: Other obesity due to excess calories[ICD10: E66.09] Diagnosis: Major depressive disorder, recurrent, moderate[ICD10: F33.1] Diagnosis: Low back pain[ICD10: M54.5] Heidy Trejo MD, [facility] CPT- 4: 79405 07/13/2016 64066 EST. PATIENT, LEVEL IV Diagnosis: Other muscle spasm[ICD10: M62.838] Diagnosis: Generalized anxiety disorder[ICD10: F41.1] Diagnosis: Major depressive disorder, recurrent, moderate[ICD10: F33.1] Diagnosis: Other insomnia[ICD10: G47.09] Petra Trejo MD, [facility] CPT-4 : 61422 05/19/2016 ([id number]) 79725 EST. PATIENT, LEVEL III Diagnosis: Generalized anxiety disorder[ICD10: F41.1] Diagnosis: Major depressive disorder, recurrent, moderate[ICD10: F33.1] Heidy Trejo MD, [facility] CPT-4: 66211 03/16/2016 ([id number]) 98343 EST. PATIENT, LEVEL III Diagnosis: Streptococcal pharyngitis[ICD10: J02.0] Claudette Trejo MD, [facility] CPT-4: 01084 02/28/2016 ([id number]) 10525 EST. PATIENT, LEVEL III Diagnosis: Generalized anxiety disorder[ICD10: F41.1] Diagnosis: Other obesity due to excess calories[ICD10: E66.09] Heidy Trejo MD, [facility] CPT-4: 31109 01/13/2016 ([id number]) 69860 EST. PATIENT, LEVEL III Diagnosis: Generalized anxiety disorder[ICD10: F41.1] Diagnosis: Major depressive disorder, recurrent, unspecified[ICD10: F33.9] Heidy Trejo MD, [facility] CPT-4: 58840 09/27/2015 80665 EST. PATIENT, LEVEL IV Diagnosis: Chronic pain syndrome[ICD10: G89.4] Diagnosis: Other obesity due to excess calories[ICD10: E66.09] Diagnosis: Essential (primary) hypertension[ICD10: I10] Diagnosis: Generalized anxiety disorder[ICD10: F41.1] Diagnosis: Excessive and frequent menstruation with regular cycle[ICD10: N92.0] Diagnosis: Pain in right knee[ICD10: M25.561] Petra Trejo MD, [facility] CPT-4: 59825 08/30/2015 08350 EST. PATIENT, LEVEL IV Diagnosis: Palpitations[ICD10: R00.2] Diagnosis: Other obesity due to excess calories[ICD10: E66.09] Petra Trejo MD, [facility] CPT-4: 88677 08/16/2015 ([id number]) 03712 EST. PATIENT, LEVEL IV Diagnosis: Pain in right knee[ICD10: M25.561] Diagnosis: Primary generalized (osteo)arthritis[ICD10: M15.0] Diagnosis: Acute maxillary sinusitis, unspecified[ICD10: J01.00] Heidy Trejo MD, [facility] CPT-4: 32298 07/15/2015 ([id number]) 76739 EST. PATIENT, LEVEL IV Diagnosis: Primary generalized (osteo)arthritis[ICD10: M15.0] Diagnosis: Restless legs syndrome[ICD10: G25.81] Diagnosis: Chronic pain syndrome[ICD10: G89.4] Heidy Trejo MD, [facility] CPT-4: 45518 06/16/2015 ([id number]) 50836 EST. PATIENT, LEVEL III Diagnosis: Primary generalized (osteo)arthritis[ICD10: M15.0] Diagnosis: Varicose veins of bilateral lower extremities with pain[ICD10: I83.813] Claudette Trejo MD, [facility] CPT-4: 45040 ([id number]) OFFICE VISIT, NEW - LEVEL 3 Diagnosis: Osteoarthritis[ICD9: 715.90] Diagnosis: ABNORMAL WEIGHT GAIN[ICD9: 783.1] Diagnosis: Superficial thrombophlebitis[ICD9: 451.9] [facility] CPT-4: 43148 12/02/2014 Plan of Care Planned Activity Notes [...] she is to follow up with her application software developer 04/24/2018 Appointment: Petra Rivastel: [phone] [facility] (30 min) Complex 04/24/2018 Patient Education: Patient [...] control. 04/17/2018 Appointment: Petra Rivas WPtel: [phone] [facility] (15 min) Moderate 04/17/2018 Patient Education: Patient [...] edema. 03/14/2018 [facility] [facility] 03/14/2018 Patient [...] to ortho 02/27/2018 Appointment: Petra Rivas WPtel[facility] ([facility] 02/27/2018 Patient Education: [...] improve. 12/04/2017 App[facility]ment[phone] ([facility]) Moderate 12/04/2017 Patient [...] glucose control. 11/20/2017 Appointment: Petra Rivastel: [phone] [facility] [place] (15 min) Moderate 11/20/2017 Patient Education: [...] or does not improve. 09/10/2017 Appointment: Petra Rivastel: [facility]1 [facility] [place] (15 min) Moderate 09/10/2017 Patient [...] does not improve. 08/14/2017 Appointment: Petra Rivastel: [facility]7 [facility] [place] (30 min) Complex 08/14/2017 Patient Education: Patient Medication Summary Completed 08/14/2017 Appointment: Petra Rivas WPtel: [address] [place], [place] [phone] (15 min) Moderate 08/01/2017 Visit Plan: Knee pain - pt is to use RICE - Rest, Ice, Compression, Elevation - pt is to use crutches as directed - The pt is to use prn antiinflammatories to manage acute pain. The patient is to call the office if the pain is worsening or does not improve. 07/31/2017 Appointment: Petra Rivas WPtel: [address] [place], [place] [address] (30 min) Complex 07/31/2017 Patient Education: Patient Medication Summary Completed 07/31/2017 Care Plan: X-RAY EXAM OF KNEE 3 LOINC : 13600-8 Pending 07/31/2017 Visit Plan: URI - Pt [...] spray. 06/27/2017 Appointment: Petra Rivas WPtel: [address] [place], [place] [address] (15 min) Moderate 06/27/2017 Patient Education: Patient Medication Summary Completed 06/27/2017 Referral: Jignesh Quinn [facility] Patient informed. Referral info faxed. Completed [...] Dr. Quinn 05/29/2017 Appointment: Petra Rivas WPtel: [facility]8 [facility] (15 min) Moderate 05/29/2017 Patient Education: Patient Medication Summary Completed 05/29/2017 Care Plan: Referral Order SNOMED-CT : [id number] Pending 05/29/2017 Appointment: Petra Rivas WPtel: [facility]4 [facility] (15 min) Moderate 05/28/2017 Visit Plan: [...] acute concerns. 05/21/2017 Appointment: Petra Rivas WPtel: [facility]4 [facility] (15 min) Moderate 05/21/2017 Patient Education: Patient Medication Summary Completed 05/21/2017 Visit Plan: Right heel pain - will send RX, pt is to do stretches as directed - The pt is to use prn antiinflammatories to manage acute pain. The patient is to call the office if the pain is worsening or does not improve. 04/20/2017 Appointment: Petra Rivas WPtel: [facility] ([facility] 04/20/2017 Patient Education: Patient Medication Summary Completed 04/20/2017 Appointment: Petra Rivas WPtel: [facility]5 [facility] (30 min) Complex 03/29/2017 Patient Education: Patient Medication Summary Completed 03/16/2017 Referral: Maycol Quijano Referral Initiated 02/08/2017 Care Plan: Referral Order SNOMED-CT : [id number] Pending 01/28/2017 Visit Plan: Insomnia - Pt [...] or concerns. 01/26/2017 Appointment: Petra Rivas WPtel: [facility]5 [facility] (30 min) Complex 01/26/2017 Patient Education: [...] acutely worsen. 01/11/2017 Appointment: Petra Rivas WPtel: [facility] ([facility] min) Moderate 01/11/2017 Patient [...] on use. 11/30/2016 Appointment: Claudette Savage WPtel: [address] [place], [place] [phone] (15 min) Moderate 11/30/2016 Patient Education: Patient Medication Summary Completed 11/30/2016 Patient Education: Obesity Completed 11/30/2016 Care Plan: BMI Above normal followup SELF-MGMT EDUC & TRAIN 1 PT Pending 2016 Visit Plan: Duqmvuo-ydgucvqzev-aklakgma with increase in cymbalta-no changes Insomnia-RX for belsomra provided and instructed on use Obesity-patient down 15#-no changes-continue diet/exercise-follow up in 2 months 09/28/2016 Appointment: Claudette Savage WPtel: [address] [place], [place] [phone] (15 min) Moderate 09/28/2016 Patient Education: Patient Medication Summary Completed 09/28/2016 Patient Education: Obesity Completed 09/28/2016 Care Plan: BMI Above normal followup SELF-MGMT EDUC & TRAIN 1 PT Pending 2016 Visit Plan: Msbqspn-zflhjtnkgu-lbbpxcbs-increase cymbalta to 60mg daily. Increase xanax as [...] for insomnia/anxiety 08/24/2016 Appointment: Claudette Savage WPtel: [phone] [phone] [place] (15 min) Moderate 08/24/2016 Patient Education: [...] not improving. 07/13/2016 Appointment: Heidy Trejo WPtel: [phone] [facility] (15 min) Moderate 07/13/2016 Patient [...] insomnia. 05/19/2016 Appointment: Petra Rivas WPtel: [phone] [facility] [place] (30 min) Complex 05/19/2016 Patient Education: [...] patient. 03/16/2016 Appointment: Heidy Trejo WPtel: [address] [facility]66[facility] (15 min) Moderate 03/16/2016 Patient Education: Patient [...] swab. 02/28/2016 Appointment: Claudette Savage WPtel: [phone] [phone] (10 min) Simple 02/28/2016 Patient Education: [...] stop lexapro 01/13/2016 Appointment: Heidy Trejo WPtel: [facility]7 [facility] (15 min) Moderate 01/13/2016 Patient Education: [...] 09/27/2015 Care Plan: Referral Order SNOMED-CT : [id number] Pending 08/31/2015 Visit Plan: Anxiety - the [...] pain symptoms. 07/15/2015 Appointment: Heidy Trejo WPtel: [address] [place], [place] [address] (15 min) Moderate 07/15/2015 Patient Education: Patient [...] clinic 04/02/2015 Appointment: Claudette Savage WPtel: [phone] [phone] [place] (15 min) Moderate 04/02/2015 Patient Education: [...] Summary Completed 12/02/2014 Referral: Belle Hoffman WPtel: [facility] [address] they will call and set the appt with her Initiated Referral: Maycol Quijano Referral Initiated Referral: Belle Hoffman WPtel: [facility] [place] [id number] Referral Initiated [facility]: [facility] Instructions Comment . Arthritis- occasionally [...] 1 mg at night for anxiety . Phcyvit-lteguissyl-mtqevfus-increase cymbalta to 60mg daily. Increase xanax as [...] cyst - will refer to Dr. Quinn . Hypertension - uncontrolled - the patient's [...] worsening or does not improve. BELSOMRA . Bqwzdcw-avstdiyeej-fzsrcurd with increase in cymbalta-no changes Insomnia-RX for [...] she is to follow up with her application software developer glucosamine and chondroiton - joint ease, joint [...]
[2018-07-24 23:35] LABS: GLUCOSE 405 MG/DL (70-105)
--- OUTSIDE RECORDS SUMMARY | 2018-07-24 23:35 | XMS REPORT | CCD ---
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 Name Role Phone PP Unavailable CCM Unavailable Summary Purpose Interface Exchange Insurance Providers Payer name Policy type / Coverage type Covered alliance party ID Effective Begin Date Effective End Date [facility] Commercial Insurance [id number] Unknown Family history Brother Diagnosis Age At [...] Description Effective Dates Tobacco history SNOMED CT: 1936319 Quit less than 5 years ago 04/02/2015 Alcohol history Unknown occasionally drinks alcohol 04/02/2015 Marital status Unknown Manuel Vitale 12/02/2014 Number of children Unknown 3 12/02/2014 Allergies, Adverse Reactions, Alerts Substance Reaction Codes Entered Date Inactivated Date Status * NO KNOWN FOOD ALLERGIES Unknown 12/02/2014 No Inactive Date Active Penicillin Unknown 12/02/2014 No Inactive Date Active tramadol RxNorm: 86533 12/02/2014 No Inactive Date Active Past Medical [...] Fill Instructions gabapentin 300 mg capsule RxNorm: 433000 1 CAPSULE(S) PO TID 07/13/2018 Active Protonix 40 mg tablet,delayed release RxNorm: 510509 1 Tablet(s) PO daily 04/24/2018 05/23/2018 Active Zorvolex 35 mg capsule RxNorm: 9696383 TAKE 1 CAPSULE BY MOUTH THREE (3) TIMES DAILY 04/22/2018 08/19/2018 Active hydrochlorothiazide 25 mg tablet RxNorm: 531270 1 TABLET(S) PO DAILY 04/08/2018 07/06/2018 Active Zorvolex 35 mg capsule RxNorm: 8172184 TAKE 1 CAPSULE BY MOUTH THREE (3) TIMES DAILY 03/27/2018 04/21/2018 Inactive gabapentin 300 mg capsule RxNorm: 048496 1 CAPSULE(S) PO TID 04/14/2018 Inactive hydrochlorothiazide 25 mg tablet RxNorm: 518882 1 Tablet(s) PO daily 03/14/2018 04/07/2018 Inactive Cymbalta 60 mg capsule,delayed release RxNorm: 104771 1 Capsule(s) PO daily TAKE 1 CAPSULE BY MOUTH DAILY 02/27/20182019 Active Victoza 2-Marek 0.6 mg/0.1 mL (18 mg/3 mL) subcutaneous pen injector RxNorm: 096417 Milligram(s) INJECT 1.8 MG SUB-Q ONCE DAILY 02/27/2018 08/20/2019 Active qty sufficient Xanax 1 mg tablet RxNorm: 076689 1-2 Tablet(s) PO QHS as needed insomnia 02/27/2018 05/27/2018 Active atorvastatin 20 mg tablet RxNorm: 101796 1 Tablet(s) PO daily 02/27/2018 05/22/2019 Active Ambien 10 mg tablet RxNorm: 956878 1 Tablet(s) PO QHS as needed insomnia 02/27/2018 05/26/2018 Active Cymbalta 60 mg capsule,delayed release RxNorm: 165131 TAKE 1 CAPSULE BY MOUTH DAILY 02/27/2018 02/26/2018 Inactive gabapentin 300 mg capsule RxNorm: 095151 1 Capsule(s) PO TID 03/24/2018 Inactive meloxicam 7.5 mg tablet RxNorm: 393118 1 Tablet(s) PO daily 1 TABLET(S) PO DAILY 02/27/2018 04/14/2018 Inactive atorvastatin 20 mg tablet RxNorm: 080941 1 Tablet(s) PO daily 02/05/2018 02/26/2018 Inactive atorvastatin 20 mg tablet RxNorm: 907874 1 Tablet(s) PO daily 02/05/2018 02/04/2018 Inactive meloxicam 7.5 mg tablet RxNorm: 193858 1 TABLET(S) PO DAILY 02/26/2018 Inactive oxycodone 15 mg tablet RxNorm: 1642296 1 Tablet(s) PO QID as needed 01/07/2018 02/19/2018 Inactive lactulose 20 gram/30 mL oral solution RxNorm: 073960 15-30 Milliliter(s) PO BID as needed 12/31/2017 02/20/2018 Inactive meloxicam 7.5 mg tablet RxNorm: 195289 1 TABLET(S) PO DAILY 06/201701/31/2018 Inactive Zorvolex 35 mg capsule RxNorm: 1599170 1 Capsule(s) PO TID 06/201702/20/2018 Inactive Ambien 10 mg tablet RxNorm: 857159 1 Tablet(s) PO QHS as needed insomnia 12/04/2017 02/26/2018 Inactive oxycodone 15 mg tablet RxNorm: 3786184 1 Tablet(s) PO QID as needed 12/04/2017 01/06/2018 Inactive prednisone 20 mg tablet RxNorm: 706167 2 Tablet(s) PO daily 12/08/2017 Inactive Victoza 2-Marek 0.6 mg/0.1 mL (18 mg/3 mL) subcutaneous pen injector RxNorm: 751390 Milligram(s) INJECT 1.8 MG SUB-Q ONCE DAILY 11/20/2017 02/26/2018 Inactive meloxicam 7.5 mg tablet RxNorm: 506829 1 Tablet(s) PO daily 02/201812/12/2017 Inactive phentermine 37.5 mg tablet RxNorm: 459850 1 Tablet(s) PO daily 11/20/2017 12/19/2017 Inactive Ambien 10 mg tablet RxNorm: 834936 1 Tablet(s) PO QHS as needed insomnia 11/20/2017 12/18/2017 Inactive Xanax 1 mg tablet RxNorm: 267639 1.5 Tablet(s) PO QHS as needed insomnia 11/20/2017 02/26/2018 Inactive hydrocodone 7.5 mg-acetaminophen 325 mg tablet RxNorm: 271121 1 Tablet(s) PO TID as needed 11/16/2017 01/06/2018 Inactive Cymbalta 60 mg capsule,delayed release RxNorm: 464273 TAKE 1 CAPSULE BY MOUTH DAILY 11/02/2017 02/26/2018 Inactive Xanax 1 mg tablet RxNorm: 041081 1 Tablet(s) PO BID PRN as needed anxiety 10/04/2017 11/19/2017 Inactive Victoza 2-Marek 0.6 mg/0.1 mL (18 mg/3 mL) subcutaneous pen injector RxNorm: 479376 INJECT 1.8 MG SUB-Q ONCE DAILY 10/04/2017 11/19/2017 Inactive hydrocodone 7.5 mg-acetaminophen 325 mg tablet RxNorm: 858249 1 Tablet(s) PO TID as needed 09/17/2017 11/15/2017 Inactive hydrocodone 7.5 mg-acetaminophen 325 mg tablet RxNorm: 763446 1 Tablet(s) PO TID as needed 09/10/2017 09/16/2017 Inactive prednisone 10 mg tablet RxNorm: 654702 Tablet(s) PO 09/10/2017 11/13/2017 Inactive 6, 5,4,3,2,1 Zorvolex 35 mg capsule RxNorm: 5711604 1 Capsule(s) PO TID 11/13/2017 Inactive Ambien 10 mg tablet RxNorm: 421314 1 Tablet(s) PO QHS as needed insomnia 08/29/2017 11/19/2017 Inactive Zorvolex 35 mg capsule RxNorm: 9506458 1 Capsule(s) PO TID 09/06/2017 Inactive Zorvolex 35 mg capsule RxNorm: 1711963 1 Capsule(s) PO TID 06/201708/27/2017 Inactive Zorvolex 35 mg capsule RxNorm: 7982521 1 Capsule(s) PO TID 06/201708/12/2017 Inactive prednisone 20 mg tablet RxNorm: 374634 2 Tablet(s) PO daily 08/04/2017 Inactive hydrocodone 7.5 mg-acetaminophen 325 mg tablet RxNorm: 410456 1 Tablet(s) PO TID as needed 07/31/2017 09/09/2017 Inactive Zorvolex 35 mg capsule RxNorm: 8994207 1 Capsule(s) PO TID as needed 07/31/2017 11/13/2017 Inactive ceftriaxone 500 mg solution for injection RxNorm: 2754366 1 Milliliter(s) Inj 06/27/2017 06/27/2017 Inactive Keflex 500 mg capsule RxNorm: 031577 1 Capsule(s) PO TID 201707/03/2017 Inactive Ambien 10 mg tablet RxNorm: 723313 1 Tablet(s) PO daily 201708/25/2017 Inactive tramadol 50 mg tablet RxNorm: 168385 1 Tablet(s) PO TID as needed 05/29/2017 07/27/2017 Inactive Xanax 1 mg tablet RxNorm: 318668 1 Tablet(s) PO BID PRN as needed anxiety 05/21/2017 10/03/2017 Inactive alprazolam 1 mg tablet RxNorm: 264321 1 Tablet(s) PO BID as needed 05/21/2017 06/19/2017 Inactive Celebrex 200 mg capsule RxNorm: 470143 1 CAPSULE(S) PO BID 11/05/2017 Inactive prednisone 20 mg tablet RxNorm: 592687 2 Tablet(s) PO daily 12/201604/24/2017 Inactive Ambien 10 mg tablet RxNorm: 115289 Tablet(s) PO 04/20/2017 05/28/2017 Inactive hydrocodone 5 mg-acetaminophen 325 mg tablet RxNorm: 308859 1 Tablet(s) PO QID as needed 04/20/2017 08/01/2017 Inactive Cymbalta 60 mg capsule,delayed release RxNorm: 927424 1 Capsule(s) PO daily 04/20/2017 02/26/2018 Inactive Victoza 2-Marek 0.6 mg/0.1 mL (18 mg/3 mL) subcutaneous pen injector RxNorm: 930363 INJECT 1.8 MG SUB-Q ONCE DAILY 03/26/2017 09/21/2017 Inactive diazepam 2 mg tablet RxNorm: 632431 1 Tablet(s) PO QHS as needed insomnia 01/28/2017 05/07/2017 Inactive Victoza 2-Marek 0.6 mg/0.1 mL (18 mg/3 mL) subcutaneous pen injector RxNorm: 210122 1.8 Milligram(s) SQ daily 01/26/201703/25 Inactive dispense quantity sufficient Tussionex Pennkinetic ER 10 mg-8 mg/5 mL suspension, extended release RxNorm: 4096845 5 Milliliter(s) PO BID 01/11/2017 01/15/2017 Inactive Xanax 1 mg tablet RxNorm: 036400 1 Tablet(s) PO BID PRN as needed anxiety 01/11/2017 05/20/2017 Inactive Zithromax Z-Marek 250 mg tablet RxNorm: 869025 1 Tablet(s) PO UD 01/11/2017 01/15/2017 Inactive zpack albuterol sulfate 2.5 mg/3 mL (0.083 %) solution for nebulization RxNorm: 761047 3 Milliliter(s) INH UD 01/11/201707/2017 Inactive prednisone 20 mg tablet RxNorm: 009180 2 Tablet(s) PO daily 01/15/2017 Inactive Kenalog 40 mg/mL suspension for injection RxNorm: 6872098 1.5 Milliliter(s) Inj 01/11/2017 01/11/2017 Inactive Celebrex 200 mg capsule RxNorm: 711017 1 Capsule(s) PO BID 02/27/2017 Inactive Ambien 5 mg tablet RxNorm: 927184 1 Tablet(s) PO HS PRN 11/3008/07/2017 Inactive trazodone 50 mg tablet RxNorm: 627489 1/2 to 1 Tablet(s) PO QHS 10/13/2016 10/12/2016 Inactive trazodone 50 mg tablet RxNorm: 824188 1/2 to 1 Tablet(s) PO QHS 10/13/2016 11/29/2016 Inactive Belsomra 10 mg tablet RxNorm: 8409094 1 Tablet(s) PO QHS 201611/29/2016 Inactive may increase to 20mg if 10mg not effective Cymbalta 60 mg capsule,delayed release RxNorm: 080041 1 Capsule(s) PO daily 08/24/2016 03/21/2017 Inactive Xanax 1 mg tablet RxNorm: 383099 1 Tablet(s) PO BID PRN as needed anxiety 08/24/2016 01/10/2017 Inactive Victoza 2-Marek 0.6 mg/0.1 mL (18 mg/3 mL) subcutaneous pen injector RxNorm: 092653 Milligram(s) SQ 08/24/2016 08/23/2016 Inactive Victoza 2-Marek 0.6 mg/0.1 mL (18 mg/3 mL) subcutaneous pen injector RxNorm: 685347 1.8 Milligram(s) SQ 08/24/2016 01/25/2017 Inactive Vitamin D2 50,000 unit capsule RxNorm: 896551 1 Capsule(s) PO QW 07/13/2016 10/10/2016 Inactive Cymbalta 30 mg capsule,delayed release RxNorm: 104600 1 Capsule(s) PO daily 07/13/2016 08/23/2016 Inactive Belviq XR 20 mg tablet,extended release RxNorm: 5551999 1 Tablet(s) PO daily 05/30/2016 05/29/2016 Inactive prednisone 20 mg tablet RxNorm: 141098 2 Tablet(s) PO daily 06/03/2016 Inactive prednisone 20 mg tablet RxNorm: 033587 2 Tablet(s) PO daily 05/29/2016 Inactive Belviq XR 20 mg tablet,extended release RxNorm: 2260842 1 Tablet(s) PO daily 05/30/2016 06/28/2016 Inactive cyclobenzaprine 5 mg tablet RxNorm: 473425 1-2 Tablet(s) PO TID as needed 05/19/2016 05/23/2016 Inactive metoprolol succinate ER 25 mg tablet,extended release 24 hr RxNorm: 422418 1 Tablet(s) PO QPM 04/10/2016 04/13/2016 Inactive metoprolol succinate ER 25 mg tablet,extended release 24 hr RxNorm: 779874 1 Tablet(s) PO QPM 04/10/2016 04/09/2016 Inactive escitalopram 10 mg tablet RxNorm: 109861 1 Tablet(s) PO daily 03/16/2016 07/12/2016 Inactive estradiol 1 mg tablet RxNorm: 789123 1 Tablet(s) PO every other day 03/16/2016 05/15/2016 Inactive Kenalog 40 mg/mL suspension for injection RxNorm: 4437825 Milliliter(s) Inj 02/28/2016 02/28/2016 Inactive Zithromax Z-Marek 250 mg tablet RxNorm: 410339 1 Tablet(s) PO UD 02/28/2016 03/03/2016 Inactive zpack Lexapro 10 mg tablet RxNorm: 648769 1 Tablet(s) PO daily 201502/27/2016 Inactive Lexapro 10 mg tablet RxNorm: 336681 1 Tablet(s) PO daily 201509/26/2015 Inactive Vimovo 500 mg-20 mg tablet,immediate and delay release RxNorm: 583174 1 Tablet(s) PO BID as needed for pain 08/30/201509/25 Inactive azithromycin 250 mg tablet RxNorm: 098737 1 Tablet(s) PO UD 2 pills on day #1, then one pill daily x 4 days 07/15/2015 Inactive hydrocodone 10 mg-acetaminophen 325 mg tablet RxNorm: 807272 1 Tablet(s) PO QID 06/16/2015 01/12/2016 Inactive pramipexole 0.5 mg tablet RxNorm: 250231 1 Tablet(s) PO QPM 07/201507/14/2015 Inactive Celebrex 200 mg capsule RxNorm: 344113 1 Capsule(s) PO daily 05/02/2015 Inactive Celebrex 200 mg capsule RxNorm: 937362 1 Capsule(s) PO daily 01/12/2016 Inactive hydrocodone 7.5 mg-acetaminophen 325 mg tablet RxNorm: 944764 1 Tablet(s) PO Q6 PRN 05/03/2015 06/15/2015 Inactive Mobic 15 mg tablet RxNorm: 653762 1 Tablet(s) PO daily 201405/02/2015 Inactive hydrocodone 7.5 mg-acetaminophen 325 mg tablet RxNorm: 617062 1 Tablet(s) PO Q6 PRN 04/02/2015 05/02/2015 Inactive hydrocodone 5 mg-acetaminophen 325 mg tablet RxNorm: 430741 1 Tablet(s) PO Q6 as needed 12/11/2014 04/01/2015 Inactive Pennsaid 1.5 % topical drops RxNorm: 568119 40 Drop(s) TOP QID as needed 12/07/2014 02/04/2015 Inactive Apply 40 drops to each knee joint 4 times per day as needed for osteoarthritis pain estradiol 1 mg tablet RxNorm: 088381 1 Tablet(s) PO QHS No Start Date 03/15/2016 Inactive Xanax 0.5 mg tablet RxNorm: 837650 1 Tablet(s) PO Q6 as needed anxiety No Start Date 08/23/2016 Inactive Tylenol Extra Strength 500 mg tablet RxNorm: 084585 3 Tablet(s) PO BID after breakfast and after lunch No Start Date Inactive lactulose 20 gram/30 mL oral solution RxNorm: 074214 15-30 Milliliter(s) PO BID as needed No Start Date 12/30/2017 Inactive hydrocodone 5 mg-acetaminophen 325 mg tablet RxNorm: 751921 1 Tablet(s) PO Q6 as needed No Start Date 12/10/2014 Inactive Phenergan-Codeine syrup RxNorm: 5-10 Milliliter(s) PO QID as needed No Start Date 11/13/2017 Inactive ibuprofen 200 mg capsule RxNorm: 667102 4 Capsule(s) PO QID as needed No Start Date 04/01/2015 Inactive Medication Administered Medication Codes Instructions Start Date Status ceftriaxone 500 mg solution for injection RxNorm: 1832214 1Milliliter 06/27/2017 No longer Active Kenalog 40 mg/mL suspension for injection RxNorm: 7026238 1.5Milliliter 01/11/2017 No longer Active Kenalog 40 mg/mL suspension for injection RxNorm: 7542039 Milliliter 02/28/2016 No longer Active Immunizations Vaccine [...] knee ICD-10: M25.562 ICD-9: 719.46 02/27/2018 Other insomnia ICD-10: G47.09 ICD-9: 327.09 02/27/2018 Other obesity due to excess calories [...] left hand ICD-10: M67.442 ICD-9: 727.43 05/29/2017 Generalized anxiety disorder ICD-10: F41.1 ICD-9: 308.0 05/29/2017 Essential (primary) hypertension ICD-10: I10 ICD-9: 401.9 05/29/2017 Palpitations ICD-10: R00.2 ICD-9: 785.1 05/21/2017 [...] Code Item Item Code Result Date %Hba1C Tmw433 % HbA1c 72101-7 6.7 % 11/20/2017 %Hba1C Ftl710 Gluc Ave 146 mg/dL 11/20/2017 Free T4 Htg429 FREE T4 0.76 ng/dL 05/21/2017 Tsh Ord6 hTSH II 1.27 uIU/mL 05/21/2017 Comp Metabolic Mtn860 NA 140 mEq/L 05/21/2017 Comp Metabolic Ayx875 K 3.9 mEq/L 05/21/2017 Comp Metabolic Ukf748 CL 101 mEq/L 05/21/2017 Comp Metabolic Zlu499 CO2 28.0 mEq/L 05/21/2017 Comp Metabolic Rvh813 ANION GAP 15 05/21/2017 Comp Metabolic Qki405 GLUCOSE 155 mg/dL 05/21/2017 Comp Metabolic Vco150 Creat 0.7 mg/dL 05/21/2017 Comp Metabolic Cqx524 eGFR 87 ml/min/1.73m2 05/21/2017 Comp Metabolic Bhz747 BUN 16 mg/dL 05/21/2017 Comp Metabolic Gjf345 B/C Ratio 21.6 Ratio 05/21/2017 Comp Metabolic Xzv812 CALCIUM 9.4 mg/dL 05/21/2017 Comp Metabolic Nno495 ALK PHOS 132 U/L 05/21/2017 Comp Metabolic Zmw748 AST(SGOT) 16 U/L 05/21/2017 Comp Metabolic Icf643 ALT(SGPT) 20 U/L 05/21/2017 Comp Metabolic Axz440 BILI T 0.4 mg/dL 05/21/2017 Comp Metabolic Dme274 ALBUMIN 4.0 g/dL 05/21/2017 Comp Metabolic Onx438 TPRO 6.7 g/dL 05/21/2017 Comp Metabolic Xlo322 GLOB 2.7 g/dL 05/21/2017 Comp Metabolic Sbf427 A/G Ratio 1.5 Ratio 05/21/2017 Comp Metabolic Cuj859 Osmo 284 mOsmo 05/21/2017 Cbc With Differential [...] 18.8 % 05/21/2017 Cbc With Differential Ord2 [place]% 5.5 % 05/21/2017 Cbc With Differential Ord2 [...] 2.65 K/ul 05/21/2017 Cbc With Differential Ord2 [place] ABS# 0.8 K/ul 05/21/2017 Cbc With Differential Ord2 Eos ABS# 0.1 K/ul 05/21/2017 Cbc With Differential Ord2 Baso ABS# 0.0 K/ul 05/21/2017 Estrogens Total 960968 ESTROGENS, TOTAL 54 pg/mL 05/24/2016 Magnesium Ord90 Mag 1.8 mg/dL 05/19/2016 Tsh Ord6 hTSH II 1.56 uIU/mL 05/19/2016 Progesterone Prog 0.03 ng/mL 05/19/2016 Comp Metabolic Xbh017 NA 136 mEq/L 05/19/2016 Comp Metabolic Wok996 K 4.3 mEq/L 05/19/2016 Comp Metabolic Sgd660 CL 100 mEq/L 05/19/2016 Comp Metabolic Bli623 CO2 28.0 mEq/L 05/19/2016 Comp Metabolic Nnq930 ANION GAP 12 05/19/2016 Comp Metabolic Cwy842 GLUCOSE 138 mg/dL 05/19/2016 Comp Metabolic Bks618 Creat 0.7 mg/dL 05/19/2016 Comp Metabolic Iwr790 eGFR 89 ml/min/1.73m2 05/19/2016 Comp Metabolic Toz739 BUN 15 mg/dL 05/19/2016 Comp Metabolic Axn784 B/C Ratio 20.5 Ratio 05/19/2016 Comp Metabolic Dih847 CALCIUM 9.7 mg/dL 05/19/2016 Comp Metabolic Ddx354 ALK PHOS 106 U/L 05/19/2016 Comp Metabolic Svo706 AST(SGOT) 21 U/L 05/19/2016 Comp Metabolic Wjk203 ALT(SGPT) 24 U/L 05/19/2016 Comp Metabolic Wfj502 BILI T 0.4 mg/dL 05/19/2016 Comp Metabolic Ved183 ALBUMIN 4.1 g/dL 05/19/2016 Comp Metabolic Pkp331 TPRO 7.1 g/dL 05/19/2016 Comp Metabolic Yyf857 GLOB 3.0 g/dL 05/19/2016 Comp Metabolic Vfk438 A/G Ratio 1.4 Ratio 05/19/2016 Comp Metabolic Rdo905 Osmo 275 mOsmo 05/19/2016 Cbc With Differential [...] 26.6 % 05/19/2016 Cbc With Differential Ord2 [place]% 6.5 % 05/19/2016 Cbc With Differential Ord2 [...] 2.33 K/ul 05/19/2016 Cbc With Differential Ord2 [place] ABS# 0.6 K/ul 05/19/2016 Cbc With Differential Ord2 Eos ABS# 0.1 K/ul 05/19/2016 Cbc With Differential Ord2 Baso ABS# 0.0 K/ul 05/19/2016 C RAP A SC 7850690 Strep A Negative 02/28/2016 Tsh Ord6 hTSH [...] 25.7 % 08/16/2015 Cbc With Differential Ord2 [place]% 7.1 % 08/16/2015 Cbc With Differential Ord2 MCH 26.2 pg 08/16/2015 Cbc With Differential Ord2 MCHC 32.3 pg 08/16/2015 Cbc With Differential Ord2 Eos% 0.9 % 08/16/2015 Cbc With Differential Ord2 PLT 369 K/ul 08/16/2015 Cbc With Differential Ord2 Baso% 0.3 % 08/16/2015 Cbc With Differential Ord2 Neut ABS# 5.95 K/ul 08/16/2015 Cbc With Differential Ord2 RDW 15.3 % 08/16/2015 Cbc With Differential Ord2 Lymph ABS# 2.32 K/ul 08/16/2015 Cbc With Differential Ord2 [place] ABS# 0.6 K/ul 08/16/2015 Cbc With Differential Ord2 Eos ABS# 0.1 K/ul 08/16/2015 Cbc With Differential Ord2 Baso ABS# 0.0 K/ul 08/16/2015 Cbc With Differential Ord2 New Analyzer Notice Please note new ref ranges starting 05-26-2015 due to implemntation of new five part differential hematolgy analyzer. 08/16/2015 Comp Metabolic Ocp304 NA 132 mEq/L 08/16/2015 Comp Metabolic Cwh015 K 3.6 mEq/L 08/16/2015 Comp Metabolic Ixj414 CL 99 mEq/L 08/16/2015 Comp Metabolic Vgn029 CO2 23.0 mEq/L 08/16/2015 Comp Metabolic Wpf696 ANION GAP 14 08/16/2015 Comp Metabolic Ilc176 GLUCOSE 101 mg/dL 08/16/2015 Comp Metabolic Pue280 Creat 0.7 mg/dL 08/16/2015 Comp Metabolic Jpt314 eGFR 100 ml/min/1.73m2 08/16/2015 Comp Metabolic Xmg013 BUN 10 mg/dL 08/16/2015 Comp Metabolic Pnb935 B/C Ratio 15.2 Ratio 08/16/2015 Comp Metabolic Loa415 CALCIUM 9.3 mg/dL 08/16/2015 Comp Metabolic Vky261 ALK PHOS 100 U/L 08/16/2015 Comp Metabolic Fxz566 AST(SGOT) 14 U/L 08/16/2015 Comp Metabolic Hto402 ALT(SGPT) 11 U/L 08/16/2015 Comp Metabolic Vjl230 BILI T 0.3 mg/dL 08/16/2015 Comp Metabolic Glg879 ALBUMIN 3.9 g/dL 08/16/2015 Comp Metabolic Tqf301 TPRO 7.1 g/dL 08/16/2015 Comp Metabolic Uln539 GLOB 3.2 g/dL 08/16/2015 Comp Metabolic Tce829 A/G Ratio 1.2 Ratio 08/16/2015 Comp Metabolic Wds795 Osmo 264 mOsmo 08/16/2015 Lipid Ord30 CHOL 209 mg/dL 12/03/2014 Lipid Ord30 HDL 42.0 mg/dl 12/03/2014 Lipid Ord30 TRIG 219 mg/dL 12/03/2014 Lipid Ord30 LDL 123 mg/dL 12/03/2014 Lipid Ord30 C/HDL 5.0 Ratio 12/03/2014 Comp Metabolic Sgy419 NA 132 mEq/L 12/03/2014 Comp Metabolic Mca458 K 4.0 mEq/L 12/03/2014 Comp Metabolic Spg710 CL 101 mEq/L 12/03/2014 Comp Metabolic Uta643 CO2 22.0 mEq/L 12/03/2014 Comp Metabolic Ldu428 ANION GAP 13 12/03/2014 Comp Metabolic Mmq324 GLUCOSE 123 mg/dL 12/03/2014 Comp Metabolic Opt976 Creat 0.7 mg/dL 12/03/2014 Comp Metabolic Ple016 eGFR 97 ml/min/1.73m2 12/03/2014 Comp Metabolic Anw843 BUN 10 mg/dL 12/03/2014 Comp Metabolic Qxr056 B/C Ratio 14.7 Ratio 12/03/2014 Comp Metabolic Xdk273 CALCIUM 9.2 mg/dL 12/03/2014 Comp Metabolic Dih744 ALK PHOS 88 U/L 12/03/2014 Comp Metabolic Aji107 AST(SGOT) 18 U/L 12/03/2014 Comp Metabolic Tvh303 ALT(SGPT) 17 U/L 12/03/2014 Comp Metabolic Dig292 BILI T 0.5 mg/dL 12/03/2014 Comp Metabolic Qcg910 ALBUMIN 3.9 g/dL 12/03/2014 Comp Metabolic Ics077 TPRO 6.8 g/dL 12/03/2014 Comp Metabolic Qcv671 GLOB 2.9 g/dL 12/03/2014 Comp Metabolic Ani380 A/G Ratio 1.3 Ratio 12/03/2014 Comp Metabolic Fon455 Osmo 265 mOsmo 12/03/2014 Tsh Ord6 hTSH [...] atraumatic 05/29/2017 None Full Exam - General 1995 Constitutional general appearance Overall: well developed 05/21/2017 [...] distress 05/19/2016 None Full Exam - General 1995 Eyes conjunctiva /eyelids Overall: conjunctiva clear 05/19/2016 [...] Procedure Codes Date THER/PROPH/DIAG INJ SC/IM CPT-4: 58316 06/27/2017 ROCEPHIN, PER 250 MG CPT-4: J0696 06/27/2017 IMMUNIZATION ADMIN CPT -4: 47665 03/16/2017 FLU VAC NO PRSV 4 FLETCHER 3 YRS+ CPT-4: 60666 03/16/2017 Pneumococcal Polysaccharide Vaccine, 23-Valent, Ad CPT-4: 27038 03/16/2017 IMMUNIZATION ADMIN EACH ADD CPT-4: 69615 03/16/2017 TRIAMCINOLONE ACET INJ NOS CPT-4: J3301 01/11/2017 TRIAMCINOLONE ACET INJ NOS CPT-4: J3301 02/28/2016 Vital Signs Date Vital 04/24/2018 Blood Pressure 1: 128/74 Code : 8480-6 BMI: 37.8 Code : 45598-9 Heart Rate 1 : 107 bpm Height: 5'6" SpO2: 98% Weight: 234 lbs 04/17/2018 Blood Pressure 1: 120/64 Code : 8480-6 BMI: 37.8 Code : 71604-1 Heart Rate 1 : 84 bpm Height: 5'6" SpO2: 96% Weight: 234 lbs 03/14/2018 Blood Pressure 1: 140/82 Code : 8480-6 BMI: 37.8 Code : 94592-8 Heart Rate 1 : 85 bpm Height: 5'6" SpO2: 98% Weight: 234 lbs 02/27/2018 Blood Pressure 1: 142/68 Code : 8480-6 BMI: 36.5 Code : 03897-6 Heart Rate 1 : 84 bpm Height: 5'6" SpO2: 97% Weight: 226 lbs 12/19/2017 Blood Pressure 1: 130/86 Code : 8480-6 BMI: 35.7 Code : 50955-3 Heart Rate 1 : 94 bpm Height: 5'6" Weight: 221 lbs 12/04/2017 Blood Pressure 1: 138/78 Code : 8480-6 BMI: 36.6 Code : 39797-1 Heart Rate 1 : 94 bpm Height: 5'6" SpO2: 98% Weight: 227 lbs 11/20/2017 Weight: 233 lbs 09/10/2017 Blood Pressure 1: 132/86 Code : 8480-6 Heart Rate 1: 86 bpm Height: Weight: 08/14/2017 Blood Pressure 1: 120/74 Code : 8480-6 BMI: 33.9 Code : 09518-1 Heart Rate 1 : 92 bpm Height: 5'6" SpO2: 94% Weight: 210 lbs 07/31/2017 Blood Pressure 1: 140/80 Code : 8480-6 BMI: 33.9 Code : 42386-8 Heart Rate 1 : 96 bpm Height: 5'6" SpO2: 97% Weight: 210 lbs 06/27/2017 Blood Pressure 1: 128/80 Code : 8480-6 BMI: 33.9 Code : 61606-9 Heart Rate 1 : 85 bpm Height: [...] Code : 8480-6 BMI: 39.9 Code : 90080-4 Heart Rate 1 : 79 bpm Height: 5'6" SpO2: 97% Weight: 247 lbs 01/26/2017 Blood Pressure 1: 132/74 Code : 8480-6 BMI: 37.8 Code : 56427-7 Heart Rate 1 : 74 bpm Height: 5'6" SpO2: 97% Weight: 234 lbs 01/11/2017 Blood Pressure 1: 118/68 Code : 8480-6 BMI: 38.7 Code : 72658-8 Heart Rate 1 : 91 bpm Height: 5'6" SpO2: 96% Weight: 240 lbs 11/30/2016 Blood Pressure 1: 132/76 Code : 8480-6 BMI: 38.3 Code : 10388-7 Heart Rate 1 : 71 bpm Height: 5'6" SpO2: 92% Weight: 237 lbs 09/28/2016 Blood Pressure 1: 122/72 Code : 8480-6 BMI: 39.1 Code : 19964-6 Heart Rate 1 : 88 bpm Height: 5'6" SpO2: 94% Weight: 242 lbs 08/24/2016 Blood Pressure 1: 130/87 Code : 8480-6 BMI: 41.5 Code : 86648-2 Heart Rate 1 : 95 bpm Height: 5'6" Respiratory Rate: 16 bpm SpO2: 98% Temperature: 36.9 (C) / 98.5 (F ) Weight: 257 lbs 07/13/2016 Blood Pressure 1: 132/84 Code : 8480-6 BMI: 42.0 Code : 10348-8 Heart Rate 1 : 73 bpm Height: 5'6" SpO2: 97% Weight: 260 lbs 05/19/2016 Blood Pressure 1: 138/76 Code : 8480-6 BMI: 40.8 Code : 51918-2 Heart Rate 1 : 80 bpm Height: 5'6" SpO2: 98% Weight: 253 lbs 03/16/2016 Blood Pressure 1: 122/70 Code : 8480-6 BMI: 40.4 Code : 22124-4 Heart Rate 1 : 72 bpm Height: 5'6" SpO2: 98% Weight: 250 lbs 02/28/2016 Blood Pressure 1: 136/86 Code : 8480-6 BMI: 40.2 Code : 36829-1 Heart Rate 1 : 87 bpm Height: 5'6" SpO2: 96% Temperature: 36.3 (C) / 97.3 (F) Weight: 249 lbs 01/13/2016 Blood Pressure 1: 120/76 Code : 8480-6 BMI: 40.4 Code : 63312-7 Heart Rate 1 : 68 bpm Height: 5'6" SpO2: 97% Weight: 250 lbs 09/27/2015 Blood Pressure 1: 112/70 Code : 8480-6 BMI: 38.4 Code : 22608-6 Heart Rate 1 : 76 bpm Height: 5'6" SpO2: 98% Weight: 238 lbs 08/30/2015 Blood Pressure 1: 144/82 Code : 8480-6 BMI: 39.5 Code : 55778-2 Heart Rate 1 : 82 bpm Height: 5'6" SpO2: 97% Weight: 245 lbs 08/16/2015 Blood Pressure 1: 140/72 Code : 8480-6 BMI: 38.9 Code : 75062-6 Heart Rate 1 : 72 bpm Height: 5'6" SpO2: 97% Weight: 241 lbs 07/15/2015 Blood Pressure 1: 128/80 Code : 8480-6 BMI: 39.3 Code : 11284-8 Heart Rate 1 : 86 bpm Height: 5'6" SpO2: 98% Weight: 243 lbs 8 oz 06/16/2015 Blood Pressure 1: 146/86 Code : 8480-6 BMI: 39.6 Code : 57053-4 Heart Rate 1 : 76 bpm Height: 5'6" SpO2: 97% Weight: 245 lbs 8 oz 04/02/2015 Blood Pressure 1: 132/86 Code : 8480-6 BMI: 40.7 Code : 39672-9 Heart Rate 1 : 94 bpm Height: 5'6" SpO2: 98% Weight: 252 lbs 12/02/2014 Blood Pressure 1: 122/90 Code : 8480-6 BMI: 41.6 Code : 40019-5 Heart Rate 1 : 77 bpm Height: [...] Other chest pain[ICD10: R07.89] Petra Trejo MD, [facility] CPT-4 : 33840 04/24/2018 [id number] EST. PATIENT, LEVEL III Diagnosis: Generalized anxiety disorder[ICD10: F41.1] Diagnosis: Major depressive disorder, recurrent, mild[ICD10: F33.0] Diagnosis: Essential (primary) hypertension[ICD10: I10] Diagnosis: Type 2 diabetes mellitus without complications[ICD10: E11.9] [facility] CPT-4: 21443 04/17/2018 29784 EST. PATIENT, LEVEL III Diagnosis: Localized edema[ICD10: R60.0] Diagnosis: Essential (primary) hypertension[ICD10: I10] [facility] CPT-4: 25957 03/14/2018 05549 EST. PATIENT, LEVEL III Diagnosis: Pain in left knee[ICD10: M25.562] Diagnosis: Other obesity due to excess calories[ICD10: E66.09] Diagnosis: Other insomnia[ICD10: G47.09] Diagnosis: Generalized anxiety disorder[ICD10: F41.1] [facility] CPT-4: 19066 02/27/2018 ([id number]) Miscellaneous no charge Diagnosis: Other obesity due to excess calories[ICD10: E66.09] [facility] CPT-4: 52328 12/19/2017 84026 EST. PATIENT, LEVEL III Diagnosis: Pain in right foot[ICD10: M79.671] Diagnosis: Pain in right ankle and joints of right foot[ICD10: M25.571] Petra Trejo MD , [facility] CPT-4: 84123 12/04/2017 25166 EST. PATIENT, LEVEL III Diagnosis: Pain in left knee[ICD10: M25.562] Diagnosis: Type 2 diabetes mellitus without complications[ICD10: E11.9] Diagnosis: Other obesity due to excess calories[ICD10: E66.09] Petra Trejo MD, [facility] CPT-4: 73506 11/20/2017 70366 EST. PATIENT, LEVEL III Diagnosis: Pain in left knee[ICD10: M25.562] Petra Trejo MD, [facility] CPT -4: 02895 09/10/2017 71707 EST. PATIENT, LEVEL III Diagnosis: Encounter for follow-up examination after completed treatment for conditions other than malignant neoplasm[ICD10: Z09] Diagnosis: Pain in left knee[ICD10: M25.562] Petra Trejo MD, [facility] CPT -4: 62989 08/14/2017 76419 EST. PATIENT, LEVEL III Diagnosis: Pain in left knee[ICD10: M25.562] Petra Trejo MD, [facility] CPT -4: 65577 07/31/2017 55855 EST. PATIENT, LEVEL III Diagnosis: Acute laryngopharyngitis[ICD10: J06.0] Diagnosis: Other allergic rhinitis[ICD10: J30.89] Petra Trejo MD, [facility] CPT-4: 80694 06/27/2017 45690 EST. PATIENT, LEVEL III Diagnosis: Ganglion, left hand[ICD10: M67.442] Diagnosis: Essential (primary) hypertension[ICD10: I10] Diagnosis: Generalized anxiety disorder[ICD10: F41.1] Diagnosis: Other insomnia[ICD10: G47.09] Petra Trejo MD, [facility] CPT-4 : 75074 05/29/2017 85404 EST. PATIENT, LEVEL III Diagnosis: Essential (primary) hypertension[ICD10: I10] Diagnosis: Palpitations[ICD10: R00.2] Diagnosis: Generalized anxiety disorder[ICD10: F41.1] Petra Trejo MD, [facility] CPT-4: 99476 05/21/2017 71786 EST. PATIENT, LEVEL III Diagnosis: Pain in right foot[ICD10: M79.671] Petra Trejo MD, [facility] CPT-4: 27822 04/20/2017 58904 EST. PATIENT, LEVEL IV Diagnosis: Other insomnia[ICD10: G47.09] Diagnosis: Other skin changes[ICD10: R23.8] Petra Trejo MD, [facility] CPT- 4: 17307 01/26/2017 51524 EST. PATIENT, LEVEL IV Diagnosis: Acute bronchitis due to other specified organisms[ICD10: J20.8] Petra Trejo MD, [facility] CPT-4: 09415 01/11/2017 ([id number]) 37555 EST. PATIENT, LEVEL IV Diagnosis: Essential (primary) hypertension[ICD10: I10] Diagnosis: Other insomnia[ICD10: G47.09] Diagnosis: Primary generalized (osteo)arthritis[ICD10: M15.0] Diagnosis: Other obesity due to excess calories[ICD10: E66.09] Claudette Trejo MD, [facility] CPT-4: 39991 11/30/2016 ([id number]) 09845 EST. PATIENT, LEVEL III Diagnosis: Other obesity due to excess calories[ICD10: E66.09] Diagnosis: Other insomnia[ICD10: G47.09] Diagnosis: Generalized anxiety disorder[ICD10: F41.1] Claudette Trejo MD, [facility] CPT-4: 35642 09/28/2016 ([id number]) 77600 EST. PATIENT, LEVEL IV Diagnosis: Generalized anxiety disorder[ICD10: F41.1] Diagnosis: Major depressive disorder, recurrent, mild[ICD10: F33.0] Diagnosis: Other obesity due to excess calories[ICD10: E66.09] Diagnosis: Other insomnia[ICD10: G47.09] Claudette Trejo MD, [facility] CPT-4: 73910 08/24/2016 ([id number]) 03805 EST. PATIENT, LEVEL III Diagnosis: Other obesity due to excess calories[ICD10: E66.09] Diagnosis: Major depressive disorder, recurrent, moderate[ICD10: F33.1] Diagnosis: Low back pain[ICD10: M54.5] Heidy Trejo MD, [facility] CPT- 4: 76826 07/13/2016 56614 EST. PATIENT, LEVEL IV Diagnosis: Other muscle spasm[ICD10: M62.838] Diagnosis: Generalized anxiety disorder[ICD10: F41.1] Diagnosis: Major depressive disorder, recurrent, moderate[ICD10: F33.1] Diagnosis: Other insomnia[ICD10: G47.09] Petra Trejo MD, [facility] CPT-4 : 00637 05/19/2016 ([id number]) 77937 EST. PATIENT, LEVEL III Diagnosis: Generalized anxiety disorder[ICD10: F41.1] Diagnosis: Major depressive disorder, recurrent, moderate[ICD10: F33.1] Heidy Trejo MD, [facility] CPT-4: 74327 03/16/2016 ([id number]) 26189 EST. PATIENT, LEVEL III Diagnosis: Streptococcal pharyngitis[ICD10: J02.0] Claudette Trejo MD, [facility] CPT-4: 81467 02/28/2016 ([id number]) 94750 EST. PATIENT, LEVEL III Diagnosis: Generalized anxiety disorder[ICD10: F41.1] Diagnosis: Other obesity due to excess calories[ICD10: E66.09] Hiedy Trejo MD, [facility] CPT-4: 19225 01/13/2016 ([id number]) 46177 EST. PATIENT, LEVEL III Diagnosis: Generalized anxiety disorder[ICD10: F41.1] Diagnosis: Major depressive disorder, recurrent, unspecified[ICD10: F33.9] Heidy Trejo MD, [facility] CPT-4: 48922 09/27/2015 14396 EST. PATIENT, LEVEL IV Diagnosis: Chronic pain syndrome[ICD10: G89.4] Diagnosis: Other obesity due to excess calories[ICD10: E66.09] Diagnosis: Essential (primary) hypertension[ICD10: I10] Diagnosis: Generalized anxiety disorder[ICD10: F41.1] Diagnosis: Excessive and frequent menstruation with regular cycle[ICD10: N92.0] Diagnosis: Pain in right knee[ICD10: M25.561] Petra Trejo MD, [facility] CPT-4: 77588 08/30/2015 79595 EST. PATIENT, LEVEL IV Diagnosis: Palpitations[ICD10: R00.2] Diagnosis: Other obesity due to excess calories[ICD10: E66.09] Petra Trejo MD, [facility] CPT-4: 19513 08/16/2015 ([id number]) 15164 EST. PATIENT, LEVEL IV Diagnosis: Pain in right knee[ICD10: M25.561] Diagnosis: Primary generalized (osteo)arthritis[ICD10: M15.0] Diagnosis: Acute maxillary sinusitis, unspecified[ICD10: J01.00] Heidy Trejo MD, [facility] CPT-4: 50756 07/15/2015 ([id number]) 21948 EST. PATIENT, LEVEL IV Diagnosis: Primary generalized (osteo)arthritis[ICD10: M15.0] Diagnosis: Restless legs syndrome[ICD10: G25.81] Diagnosis: Chronic pain syndrome[ICD10: G89.4] Heidy Trejo MD, [facility] CPT-4: 63390 06/16/2015 ([id number]) 71269 EST. PATIENT, LEVEL III Diagnosis: Primary generalized (osteo)arthritis[ICD10: M15.0] Diagnosis: Varicose veins of bilateral lower extremities with pain[ICD10: I83.813] Claudette Trejo MD, [facility] CPT-4: 05117 ([id number]) OFFICE VISIT, NEW - LEVEL 3 Diagnosis: Osteoarthritis[ICD9: 715.90] Diagnosis: ABNORMAL WEIGHT GAIN[ICD9: 783.1] Diagnosis: Superficial thrombophlebitis[ICD9: 451.9] Carey Trejo MD, [facility] CPT-4: 54914 12/02/2014 Plan of Care Planned Activity Notes [...] she is to follow up with her cake knocker 04/24/2018 Appointment[facility] [phone] [facility] (30 min) Complex 04/24/2018 Patient Education: Patient [...] glucose control. 04/17/2018 Appointment: [phone] [facility] (15 min) Moderate 04/17/2018 Patient Education: Patient [...] edema. 03/14/2018 Appointment: [phone] [facility] (15 min) Moderate 03/14/2018 Patient Education: [...] ortho 02/27/2018 Appointment: [facility] [phone] [facility] (30 min) Complex 02/27/2018 Patient Education: Patient [...] not improve. 12/04/2017 Appointment: [facility] [phone] [facility] (15 min) Moderate 12/04/2017 Patient Education: Patient [...] control. 11/20/2017 Appointment: Petra Rivas WPtel: [phone] [facility] [place] (15 min) Moderate 11/20/2017 Patient [...] not improve. 09/10/2017 Appointment: Petra Rivas WPtel: [facility] [place] (15 min) Moderate 09/10/2017 Patient [...] improve. 08/14/2017 Appointment: [facility] [phone] [facility] [place] (30 min) Complex 08/14/2017 Patient Education: Patient Medication Summary Completed 08/14/2017 Appointment: Petra Rivas WPtel: [facility] (15 min) Moderate 08/01/2017 Visit Plan: Knee pain - pt is to use RICE - Rest, Ice, Compression, Elevation - pt is to use crutches as directed - The pt is to use prn antiinflammatories to manage acute pain. The patient is to call the office if the pain is worsening or does not improve. 07/31/2017 Appointment: Petra Rivas WPtel: [facility] (30 min) Complex 07/31/2017 Patient Education: Patient Medication Summary Completed 07/31/2017 Care Plan: X-RAY EXAM OF KNEE 3 [facility] : 61411-8 Pending 07/31/2017 Visit Plan: URI - Pt [...] allergy spray. 06/27/2017 Appointment: Petra Rivas WPtel: [facility]5 [facility] (15 min) Moderate 06/27/2017 Patient Education: [...] Dr. Quinn 05/29/2017 Appointment: Petra Rivas WPtel: [facility]3 [facility] (15 min) Moderate 05/29/2017 Patient Education: Patient Medication Summary Completed 05/29/2017 Care Plan: Referral Order SNOMED-CT : [id number] Pending 05/29/2017 Appointment: Petra Rivas WPtel: [facility]6 [facility] (15 min) Moderate 05/28/2017 Visit Plan: Palpitations [...] acute concerns. 05/21/2017 Appointment: Petra Rivas WPtel: [facility] (15 min) Moderate 05/21/2017 Patient Education: Patient Medication Summary Completed 05/21/2017 Visit Plan: Right heel pain - will send RX, pt is to do stretches as directed - The pt is to use prn antiinflammatories to manage acute pain. The patient is to call the office if the pain is worsening or does not improve. 04/20/2017 Appointment: Petra Rivas WPtel: [facility] (30 min) Complex 04/20/2017 Patient Education: Patient Medication Summary Completed 04/20/2017 Appointment: Petra Rivas WPtel: [facility]5 [facility] (30 min) Complex 03/29/2017 Patient Education: Patient Medication Summary Completed 03/16/2017 Referral: Maycol Quijano Referral Initiated 02/08/2017 Care Plan: Referral Order SNOMED-CT : [id number] Pending 01/28/2017 Visit Plan: Insomnia - Pt [...] concerns. 01/26/2017 Appointment: [facility] [phone] [facility] (30 min) Complex 01/26/2017 Patient Education: [...] acutely worsen. 01/11/2017 Appointment: Petra Rivas WPtel: [facility] (15 min) Moderate 01/11/2017 Patient Education: [...] on use. 11/30/2016 Appointment: Claudette Savage WPtel: [address] [place] [address] (15 min) Moderate 11/30/2016 Patient Education: Patient Medication Summary Completed 11/30/2016 Patient Education: Obesity Completed 11/30/2016 Care Plan: BMI Above normal followup SELF-MGMT EDUC & TRAIN 1 PT Pending 2016 Visit Plan: Rniddrs-zofmchbisc-zisrhebb with increase in cymbalta-no changes Insomnia-RX for belsomra provided and instructed on use Obesity-patient down 15#-no changes-continue diet/exercise-follow up in 2 months 09/28/2016 Appointment: Claudette Savage WPtel: [address] [place], [place] [phone] (15 min) Moderate 09/28/2016 Patient Education: Patient Medication Summary Completed 09/28/2016 Patient Education: Obesity Completed 09/28/2016 Care Plan: BMI Above normal followup SELF-MGMT EDUC & TRAIN 1 PT Pending 2016 Visit Plan: Yuenzcy-shympirlrq-uohfvjjv-increase cymbalta to 60mg daily. Increase xanax as [...] for insomnia/anxiety 08/24/2016 Appointment: Claudette Savage WPtel: [facility]6 [place] [phone] (15 min) Moderate 08/24/2016 Patient Education: Patient [...] improving. 07/13/2016 Appointment: Heidy Trejo WPtel: [phone] [facility] (15 min) Moderate 07/13/2016 Patient [...] insomnia. 05/19/2016 Appointment: [facility] [phone] [facility] (30 min) Complex 05/19/2016 Patient Education: Patient [...] this patient. 03/16/2016 Appointment: Heidy Trejo WPtel: [facility]8 [facility] (15 min) Moderate 03/16/2016 Patient [...] swab. 02/28/2016 Appointment: Claudette Savage WPtel: [phone] [facility] (10 min) Simple 02/28/2016 Patient Education: Patient [...] stop lexapro 01/13/2016 Appointment: Heidy Trejo WPtel: [facility]5 [facility] (15 min) Moderate 01/13/2016 Patient [...] 09/27/2015 Care Plan: Referral Order SNOMED-CT : [id number] Pending 08/31/2015 Visit Plan: Anxiety - the [...] pain symptoms. 07/15/2015 Appointment: Heidy [facility]Ptel: [facility] ([facility] min) Moderate 07/15/2015 Patient Education: [...] clinic 04/02/2015 Appointment: Hussein Claudette [facility] [phone] [phone] (15 min) Moderate 04/02/2015 Patient Education: Patient [...] 12/02/2014 Referral: Belle Hoffman WPtel: [facility] [address] they will call and set the appt with her Initiated Referral: Maycol Quijano Referral Initiated Referral: Belle Hoffman WPtel: [phone] [facility] [address] Referral Initiated [facility]: [facility] Init[facility] Instructions Comment . Hypertension - [...] she is to follow up with her cake knocker . Anxiety and Depression- the patient has [...] 1 mg at night for anxiety . Zgkvoba-knliewbork-kwbhuhcs-increase cymbalta to 60mg daily. Increase xanax as [...] been appropriately prescribed for this patient. . Left knee pain - ongoing - [...] allow for greater blood glucose control. . Insomnia - Pt has been advised [...] a medication such as mirapex or requip. Pronutria website contrave 1 pill nightly x 1 week, then one pill twice daily x 1 week, then if needed can increase up to 2 pills twice daily. stop lexapro . Depression and -Obesity - chronic issue with this patient. The pt has been counseled about diet changes, calorie restriction, and need to exercise. Pt will RTC in one month for weight check. Pronutria website contrave 1 pill nightly x 1 [...] worsening or does not improve. BELSOMRA . Zgbxnor-ypqvgkdfdu-ywceahdu with increase in cymbalta-no changes Insomnia-RX for [...]
[2018-07-24 23:37] LABS: MYOGLOBIN SERUM 15.2 NG/ML (10.0-92.0)
--- OUTSIDE RECORDS SUMMARY | 2018-07-24 23:39 | XMS REPORT | CCD ---
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 Name Role Phone PP Unavailable CCM Unavailable Summary Purpose Interface Exchange Insurance Providers Payer name Policy type / Coverage type Covered green party ID Effective Begin Date Effective End Date [facility] Commercial Insurance [id number] Unknown Family history Brother Diagnosis Age At [...] Description Effective Dates Tobacco history SNOMED CT: 1496438 Quit less than 5 years ago 04/02/2015 Alcohol history Unknown occasionally drinks alcohol 04/02/2015 Marital status Unknown Manuel Vitale 12/02/2014 Number of children Unknown 3 12/02/2014 Allergies, Adverse Reactions, Alerts Substance Reaction Codes Entered Date Inactivated Date Status * NO KNOWN FOOD ALLERGIES Unknown 12/02/2014 No Inactive Date Active Penicillin Unknown 12/02/2014 No Inactive Date Active tramadol RxNorm: 01501 12/02/2014 No Inactive Date Active Past Medical [...] Instructions Protonix 40 mg tablet,delayed release RxNorm: 506987 1 Tablet(s) PO daily 04/24/2018 05/23/2018 Active Zorvolex 35 mg capsule RxNorm: 6365951 TAKE 1 CAPSULE BY MOUTH THREE (3) TIMES DAILY 04/22/2018 08/19/2018 Active hydrochlorothiazide 25 mg tablet RxNorm: 837439 1 TABLET(S) PO DAILY 04/08/2018 07/06/2018 Active Zorvolex 35 mg capsule RxNorm: 5950044 TAKE 1 CAPSULE BY MOUTH THREE (3) TIMES DAILY 03/27/2018 04/21/2018 Inactive gabapentin 300 mg capsule RxNorm: 835685 1 CAPSULE(S) PO TID 04/14/2018 Inactive hydrochlorothiazide 25 mg tablet RxNorm: 000324 1 Tablet(s) PO daily 03/14/2018 04/07/2018 Inactive Cymbalta 60 mg capsule,delayed release RxNorm: 445539 1 Capsule(s) PO daily TAKE 1 CAPSULE BY MOUTH DAILY 02/27/20182019 Active Victoza 2-Marek 0.6 mg/0.1 mL (18 mg/3 mL) subcutaneous pen injector RxNorm: 346295 Milligram(s) INJECT 1.8 MG SUB-Q ONCE DAILY 02/27/2018 08/20/2019 Active qty sufficient Xanax 1 mg tablet RxNorm: 510406 1-2 Tablet(s) PO QHS as needed insomnia 02/27/2018 05/27/2018 Active atorvastatin 20 mg tablet RxNorm: 416505 1 Tablet(s) PO daily 02/27/2018 05/22/2019 Active Ambien 10 mg tablet RxNorm: 969306 1 Tablet(s) PO QHS as needed insomnia 02/27/2018 05/26/2018 Active Cymbalta 60 mg capsule,delayed release RxNorm: 611222 TAKE 1 CAPSULE BY MOUTH DAILY 02/27/2018 02/26/2018 Inactive gabapentin 300 mg capsule RxNorm: 309722 1 Capsule(s) PO TID 03/24/2018 Inactive meloxicam 7.5 mg tablet RxNorm: 619724 1 Tablet(s) PO daily 1 TABLET(S) PO DAILY 02/27/2018 04/14/2018 Inactive atorvastatin 20 mg tablet RxNorm: 684078 1 Tablet(s) PO daily 02/05/2018 02/26/2018 Inactive atorvastatin 20 mg tablet RxNorm: 795906 1 Tablet(s) PO daily 02/05/2018 02/04/2018 Inactive meloxicam 7.5 mg tablet RxNorm: 251503 1 TABLET(S) PO DAILY 02/26/2018 Inactive oxycodone 15 mg tablet RxNorm: 1287529 1 Tablet(s) PO QID as needed 01/07/2018 02/19/2018 Inactive lactulose 20 gram/30 mL oral solution RxNorm: 113952 15-30 Milliliter(s) PO BID as needed 12/31/2017 02/20/2018 Inactive meloxicam 7.5 mg tablet RxNorm: 970744 1 TABLET(S) PO DAILY 06/201701/31/2018 Inactive Zorvolex 35 mg capsule RxNorm: 8509080 1 Capsule(s) PO TID 06/201702/20/2018 Inactive Ambien 10 mg tablet RxNorm: 305829 1 Tablet(s) PO QHS as needed insomnia 12/04/2017 02/26/2018 Inactive oxycodone 15 mg tablet RxNorm: 5573839 1 Tablet(s) PO QID as needed 12/04/2017 01/06/2018 Inactive prednisone 20 mg tablet RxNorm: 186900 2 Tablet(s) PO daily 12/08/2017 Inactive Victoza 2-Marek 0.6 mg/0.1 mL (18 mg/3 mL) subcutaneous pen injector RxNorm: 243460 Milligram(s) INJECT 1.8 MG SUB-Q ONCE DAILY 11/20/2017 02/26/2018 Inactive meloxicam 7.5 mg tablet RxNorm: 025970 1 Tablet(s) PO daily 02/201812/12/2017 Inactive phentermine 37.5 mg tablet RxNorm: 647413 1 Tablet(s) PO daily 11/20/2017 12/19/2017 Inactive Ambien 10 mg tablet RxNorm: 594868 1 Tablet(s) PO QHS as needed insomnia 11/20/2017 12/18/2017 Inactive Xanax 1 mg tablet RxNorm: 874168 1.5 Tablet(s) PO QHS as needed insomnia 11/20/2017 02/26/2018 Inactive hydrocodone 7.5 mg-acetaminophen 325 mg tablet RxNorm: 404929 1 Tablet(s) PO TID as needed 11/16/2017 01/06/2018 Inactive Cymbalta 60 mg capsule,delayed release RxNorm: 003746 TAKE 1 CAPSULE BY MOUTH DAILY 11/02/2017 02/26/2018 Inactive Xanax 1 mg tablet RxNorm: 399922 1 Tablet(s) PO BID PRN as needed anxiety 10/04/2017 11/19/2017 Inactive Victoza 2-Marek 0.6 mg/0.1 mL (18 mg/3 mL) subcutaneous pen injector RxNorm: 436526 INJECT 1.8 MG SUB-Q ONCE DAILY 10/04/2017 11/19/2017 Inactive hydrocodone 7.5 mg-acetaminophen 325 mg tablet RxNorm: 616401 1 Tablet(s) PO TID as needed 09/17/2017 11/15/2017 Inactive hydrocodone 7.5 mg-acetaminophen 325 mg tablet RxNorm: 969296 1 Tablet(s) PO TID as needed 09/10/2017 09/16/2017 Inactive prednisone 10 mg tablet RxNorm: 245866 Tablet(s) PO 09/10/2017 11/13/2017 Inactive 6, 5,4,3,2,1 Zorvolex 35 mg capsule RxNorm: 5264287 1 Capsule(s) PO TID 11/13/2017 Inactive Ambien 10 mg tablet RxNorm: 838814 1 Tablet(s) PO QHS as needed insomnia 08/29/2017 11/19/2017 Inactive Zorvolex 35 mg capsule RxNorm: 4843943 1 Capsule(s) PO TID 09/06/2017 Inactive Zorvolex 35 mg capsule RxNorm: 7767642 1 Capsule(s) PO TID 06/201708/27/2017 Inactive Zorvolex 35 mg capsule RxNorm: 2167322 1 Capsule(s) PO TID 06/201708/12/2017 Inactive prednisone 20 mg tablet RxNorm: 009000 2 Tablet(s) PO daily 08/04/2017 Inactive hydrocodone 7.5 mg-acetaminophen 325 mg tablet RxNorm: 547827 1 Tablet(s) PO TID as needed 07/31/2017 09/09/2017 Inactive Zorvolex 35 mg capsule RxNorm: 5397335 1 Capsule(s) PO TID as needed 07/31/2017 11/13/2017 Inactive ceftriaxone 500 mg solution for injection RxNorm: 3683931 1 Milliliter(s) Inj 06/27/2017 06/27/2017 Inactive Keflex 500 mg capsule RxNorm: 582408 1 Capsule(s) PO TID 201707/03/2017 Inactive Ambien 10 mg tablet RxNorm: 950769 1 Tablet(s) PO daily 201708/25/2017 Inactive tramadol 50 mg tablet RxNorm: 153319 1 Tablet(s) PO TID as needed 05/29/2017 07/27/2017 Inactive Xanax 1 mg tablet RxNorm: 034886 1 Tablet(s) PO BID PRN as needed anxiety 05/21/2017 10/03/2017 Inactive alprazolam 1 mg tablet RxNorm: 974178 1 Tablet(s) PO BID as needed 05/21/2017 06/19/2017 Inactive Celebrex 200 mg capsule RxNorm: 111774 1 CAPSULE(S) PO BID 11/05/2017 Inactive prednisone 20 mg tablet RxNorm: 002755 2 Tablet(s) PO daily 12/201604/24/2017 Inactive Ambien 10 mg tablet RxNorm: 861860 Tablet(s) PO 04/20/2017 05/28/2017 Inactive hydrocodone 5 mg-acetaminophen 325 mg tablet RxNorm: 083326 1 Tablet(s) PO QID as needed 04/20/2017 08/01/2017 Inactive Cymbalta 60 mg capsule,delayed release RxNorm: 737458 1 Capsule(s) PO daily 04/20/2017 02/26/2018 Inactive Victoza 2-Marek 0.6 mg/0.1 mL (18 mg/3 mL) subcutaneous pen injector RxNorm: 471444 INJECT 1.8 MG SUB-Q ONCE DAILY 03/26/2017 09/21/2017 Inactive diazepam 2 mg tablet RxNorm: 285742 1 Tablet(s) PO QHS as needed insomnia 01/28/2017 05/07/2017 Inactive Victoza 2-Marek 0.6 mg/0.1 mL (18 mg/3 mL) subcutaneous pen injector RxNorm: 864986 1.8 Milligram(s) SQ daily 01/26/201703/25 Inactive dispense quantity sufficient Tussionex Pennkinetic ER 10 mg-8 mg/5 mL suspension, extended release RxNorm: 7915664 5 Milliliter(s) PO BID 01/11/2017 01/15/2017 Inactive Xanax 1 mg tablet RxNorm: 144434 1 Tablet(s) PO BID PRN as needed anxiety 01/11/2017 05/20/2017 Inactive Zithromax Z-Marek 250 mg tablet RxNorm: 102206 1 Tablet(s) PO UD 01/11/2017 01/15/2017 Inactive zpack albuterol sulfate 2.5 mg/3 mL (0.083 %) solution for nebulization RxNorm: 831494 3 Milliliter(s) INH UD 01/11/201707/2017 Inactive prednisone 20 mg tablet RxNorm: 256290 2 Tablet(s) PO daily 01/15/2017 Inactive Kenalog 40 mg/mL suspension for injection RxNorm: 8300216 1.5 Milliliter(s) Inj 01/11/2017 01/11/2017 Inactive Celebrex 200 mg capsule RxNorm: 333987 1 Capsule(s) PO BID 02/27/2017 Inactive Ambien 5 mg tablet RxNorm: 407795 1 Tablet(s) PO HS PRN 11/3008/07/2017 Inactive trazodone 50 mg tablet RxNorm: 427607 1/2 to 1 Tablet(s) PO QHS 10/13/2016 10/12/2016 Inactive trazodone 50 mg tablet RxNorm: 063348 1/2 to 1 Tablet(s) PO QHS 10/13/2016 11/29/2016 Inactive Belsomra 10 mg tablet RxNorm: 9245949 1 Tablet(s) PO QHS 201611/29/2016 Inactive may increase to 20mg if 10mg not effective Cymbalta 60 mg capsule,delayed release RxNorm: 177989 1 Capsule(s) PO daily 08/24/2016 03/21/2017 Inactive Xanax 1 mg tablet RxNorm: 530194 1 Tablet(s) PO BID PRN as needed anxiety 08/24/2016 01/10/2017 Inactive Victoza 2-Marek 0.6 mg/0.1 mL (18 mg/3 mL) subcutaneous pen injector RxNorm: 618466 Milligram(s) SQ 08/24/2016 08/23/2016 Inactive Victoza 2-Marek 0.6 mg/0.1 mL (18 mg/3 mL) subcutaneous pen injector RxNorm: 412329 1.8 Milligram(s) SQ 08/24/2016 01/25/2017 Inactive Vitamin D2 50,000 unit capsule RxNorm: 013197 1 Capsule(s) PO QW 07/13/2016 10/10/2016 Inactive Cymbalta 30 mg capsule,delayed release RxNorm: 367548 1 Capsule(s) PO daily 07/13/2016 08/23/2016 Inactive Belviq XR 20 mg tablet,extended release RxNorm: 1386801 1 Tablet(s) PO daily 05/30/2016 05/29/2016 Inactive prednisone 20 mg tablet RxNorm: 871518 2 Tablet(s) PO daily 06/03/2016 Inactive prednisone 20 mg tablet RxNorm: 896705 2 Tablet(s) PO daily 05/29/2016 Inactive Belviq XR 20 mg tablet,extended release RxNorm: 1432685 1 Tablet(s) PO daily 05/30/2016 06/28/2016 Inactive cyclobenzaprine 5 mg tablet RxNorm: 605147 1-2 Tablet(s) PO TID as needed 05/19/2016 05/23/2016 Inactive metoprolol succinate ER 25 mg tablet,extended release 24 hr RxNorm: 779073 1 Tablet(s) PO QPM 04/10/2016 04/13/2016 Inactive metoprolol succinate ER 25 mg tablet,extended release 24 hr RxNorm: 457566 1 Tablet(s) PO QPM 04/10/2016 04/09/2016 Inactive escitalopram 10 mg tablet RxNorm: 287058 1 Tablet(s) PO daily 03/16/2016 07/12/2016 Inactive estradiol 1 mg tablet RxNorm: 455656 1 Tablet(s) PO every other day 03/16/2016 05/15/2016 Inactive Kenalog 40 mg/mL suspension for injection RxNorm: 5531509 Milliliter(s) Inj 02/28/2016 02/28/2016 Inactive Zithromax Z-Marek 250 mg tablet RxNorm: 281938 1 Tablet(s) PO UD 02/28/2016 03/03/2016 Inactive zpack Lexapro 10 mg tablet RxNorm: 721566 1 Tablet(s) PO daily 201502/27/2016 Inactive Lexapro 10 mg tablet RxNorm: 486077 1 Tablet(s) PO daily 201509/26/2015 Inactive Vimovo 500 mg-20 mg tablet,immediate and delay release RxNorm: 047689 1 Tablet(s) PO BID as needed for pain 08/30/201509/25 Inactive azithromycin 250 mg tablet RxNorm: 288386 1 Tablet(s) PO UD 2 pills on day #1, then one pill daily x 4 days 07/15/2015 Inactive hydrocodone 10 mg-acetaminophen 325 mg tablet RxNorm: 459112 1 Tablet(s) PO QID 06/16/2015 01/12/2016 Inactive pramipexole 0.5 mg tablet RxNorm: 713036 1 Tablet(s) PO QPM 07/201507/14/2015 Inactive Celebrex 200 mg capsule RxNorm: 535442 1 Capsule(s) PO daily 05/02/2015 Inactive Celebrex 200 mg capsule RxNorm: 644778 1 Capsule(s) PO daily 01/12/2016 Inactive hydrocodone 7.5 mg-acetaminophen 325 mg tablet RxNorm: 869608 1 Tablet(s) PO Q6 PRN 05/03/2015 06/15/2015 Inactive Mobic 15 mg tablet RxNorm: 365904 1 Tablet(s) PO daily 201405/02/2015 Inactive hydrocodone 7.5 mg-acetaminophen 325 mg tablet RxNorm: 871345 1 Tablet(s) PO Q6 PRN 04/02/2015 05/02/2015 Inactive hydrocodone 5 mg-acetaminophen 325 mg tablet RxNorm: 381220 1 Tablet(s) PO Q6 as needed 12/11/2014 04/01/2015 Inactive Pennsaid 1.5 % topical drops RxNorm: 377572 40 Drop(s) TOP QID as needed 12/07/2014 02/04/2015 Inactive Apply 40 drops to each knee joint 4 times per day as needed for osteoarthritis pain estradiol 1 mg tablet RxNorm: 987101 1 Tablet(s) PO QHS No Start Date 03/15/2016 Inactive Xanax 0.5 mg tablet RxNorm: 115487 1 Tablet(s) PO Q6 as needed anxiety No Start Date 08/23/2016 Inactive Tylenol Extra Strength 500 mg tablet RxNorm: 059420 3 Tablet(s) PO BID after breakfast and after lunch No Start Date Inactive lactulose 20 gram/30 mL oral solution RxNorm: 170263 15-30 Milliliter(s) PO BID as needed No Start Date 12/30/2017 Inactive hydrocodone 5 mg-acetaminophen 325 mg tablet RxNorm: 522697 1 Tablet(s) PO Q6 as needed No Start Date 12/10/2014 Inactive Phenergan-Codeine syrup RxNorm: 5-10 Milliliter(s) PO QID as needed No Start Date 11/13/2017 Inactive ibuprofen 200 mg capsule RxNorm: 360374 4 Capsule(s) PO QID as needed No Start Date 04/01/2015 Inactive Medication Administered Medication Codes Instructions Start Date Status ceftriaxone 500 mg solution for injection RxNorm: 5027184 1Milliliter 06/27/2017 No longer Active Kenalog 40 mg/mL suspension for injection RxNorm: 5500918 1.5Milliliter 01/11/2017 No longer Active Kenalog 40 mg/mL suspension for injection RxNorm: 0327545 Milliliter 02/28/2016 No longer Active Immunizations Vaccine [...] Code Item Item Code Result Date %Hba1C Dju724 % HbA1c 48798-6 6.7 % 11/20/2017 %Hba1C Edj390 Gluc Ave 146 mg/dL 11/20/2017 Free T4 Evg910 FREE T4 0.76 ng/dL 05/21/2017 Tsh Ord6 hTSH II 1.27 uIU/mL 05/21/2017 Comp Metabolic Dqc347 NA 140 mEq/L 05/21/2017 Comp Metabolic Azf562 K 3.9 mEq/L 05/21/2017 Comp Metabolic Qgm556 CL 101 mEq/L 05/21/2017 Comp Metabolic Nuy691 CO2 28.0 mEq/L 05/21/2017 Comp Metabolic Ugt219 ANION GAP 15 05/21/2017 Comp Metabolic Omn099 GLUCOSE 155 mg/dL 05/21/2017 Comp Metabolic Cwk477 Creat 0.7 mg/dL 05/21/2017 Comp Metabolic Mje915 eGFR 87 ml/min/1.73m2 05/21/2017 Comp Metabolic Jpe316 BUN 16 mg/dL 05/21/2017 Comp Metabolic Wpt559 B/C Ratio 21.6 Ratio 05/21/2017 Comp Metabolic Cfu676 CALCIUM 9.4 mg/dL 05/21/2017 Comp Metabolic Tyc338 ALK PHOS 132 U/L 05/21/2017 Comp Metabolic Wsa897 AST(SGOT) 16 U/L 05/21/2017 Comp Metabolic Qtx816 ALT(SGPT) 20 U/L 05/21/2017 Comp Metabolic Uuy427 BILI T 0.4 mg/dL 05/21/2017 Comp Metabolic Zhu345 ALBUMIN 4.0 g/dL 05/21/2017 Comp Metabolic Mfq512 TPRO 6.7 g/dL 05/21/2017 Comp Metabolic Xlc574 GLOB 2.7 g/dL 05/21/2017 Comp Metabolic Tbn504 A/G Ratio 1.5 Ratio 05/21/2017 Comp Metabolic Yfp061 Osmo 284 mOsmo 05/21/2017 Cbc With Differential [...] pg 05/21/2017 Cbc With Differential Ord2 [place]% 5.5 % 05/21/2017 Cbc With Differential Ord2 [...] K/ul 05/21/2017 Cbc With Differential Ord2 [place] ABS# 0.8 K/ul 05/21/2017 Cbc With Differential Ord2 Eos ABS# 0.1 K/ul 05/21/2017 Cbc With Differential Ord2 Baso ABS# 0.0 K/ul 05/21/2017 Estrogens Total 286575 ESTROGENS, TOTAL 54 pg/mL 05/24/2016 Magnesium Ord90 Mag 1.8 mg/dL 05/19/2016 Tsh Ord6 hTSH II 1.56 uIU/mL 05/19/2016 Progesterone Prog 0.03 ng/mL 05/19/2016 Comp Metabolic Poi305 NA 136 mEq/L 05/19/2016 Comp Metabolic Rnc096 K 4.3 mEq/L 05/19/2016 Comp Metabolic Vjs103 CL 100 mEq/L 05/19/2016 Comp Metabolic Idt172 CO2 28.0 mEq/L 05/19/2016 Comp Metabolic Yfc757 ANION GAP 12 05/19/2016 Comp Metabolic Zmb866 GLUCOSE 138 mg/dL 05/19/2016 Comp Metabolic Nnr094 Creat 0.7 mg/dL 05/19/2016 Comp Metabolic Xha232 eGFR 89 ml/min/1.73m2 05/19/2016 Comp Metabolic Mjh460 BUN 15 mg/dL 05/19/2016 Comp Metabolic Nzc279 B/C Ratio 20.5 Ratio 05/19/2016 Comp Metabolic Nya921 CALCIUM 9.7 mg/dL 05/19/2016 Comp Metabolic Woq779 ALK PHOS 106 U/L 05/19/2016 Comp Metabolic Its991 AST(SGOT) 21 U/L 05/19/2016 Comp Metabolic Trk695 ALT(SGPT) 24 U/L 05/19/2016 Comp Metabolic Sjx161 BILI T 0.4 mg/dL 05/19/2016 Comp Metabolic Sgv230 ALBUMIN 4.1 g/dL 05/19/2016 Comp Metabolic Ynt316 TPRO 7.1 g/dL 05/19/2016 Comp Metabolic Ggu796 GLOB 3.0 g/dL 05/19/2016 Comp Metabolic Wui936 A/G Ratio 1.4 Ratio 05/19/2016 Comp Metabolic Tpc528 Osmo 275 mOsmo 05/19/2016 Cbc With Differential [...] fl 05/19/2016 Cbc With Differential Ord2 [place]% 6.5 % 05/19/2016 Cbc With Differential Ord2 [...] K/ul 05/19/2016 Cbc With Differential Ord2 [place] ABS# 0.6 K/ul 05/19/2016 Cbc With Differential Ord2 Eos ABS# 0.1 K/ul 05/19/2016 Cbc With Differential Ord2 Baso ABS# 0.0 K/ul 05/19/2016 C RAP A SC [id number] Strep A Negative 02/28/2016 Tsh Ord6 hTSH [...] pg 08/16/2015 Cbc With Differential Ord2 [place]% 7.1 % 08/16/2015 Cbc With Differential Ord2 [...] K/ul 08/16/2015 Cbc With Differential Ord2 [place] ABS# 0.6 K/ul 08/16/2015 Cbc With Differential Ord2 Eos ABS# 0.1 K/ul 08/16/2015 Cbc With Differential Ord2 Baso ABS# 0.0 K/ul 08/16/2015 Cbc With Differential Ord2 New Analyzer Notice Please note new ref ranges starting 05-26-2015 due to implemntation of new five part differential hematolgy analyzer. 08/16/2015 Comp Metabolic Wlr719 NA 132 mEq/L 08/16/2015 Comp Metabolic Kgl883 K 3.6 mEq/L 08/16/2015 Comp Metabolic Csr692 CL 99 mEq/L 08/16/2015 Comp Metabolic Eqc309 CO2 23.0 mEq/L 08/16/2015 Comp Metabolic Xlt237 ANION GAP 14 08/16/2015 Comp Metabolic Txa367 GLUCOSE 101 mg/dL 08/16/2015 Comp Metabolic Gag333 Creat 0.7 mg/dL 08/16/2015 Comp Metabolic Tig889 eGFR 100 ml/min/1.73m2 08/16/2015 Comp Metabolic Gwg939 BUN 10 mg/dL 08/16/2015 Comp Metabolic Ziq757 B/C Ratio 15.2 Ratio 08/16/2015 Comp Metabolic Nfk542 CALCIUM 9.3 mg/dL 08/16/2015 Comp Metabolic Mgl728 ALK PHOS 100 U/L 08/16/2015 Comp Metabolic Dan622 AST(SGOT) 14 U/L 08/16/2015 Comp Metabolic Wzy888 ALT(SGPT) 11 U/L 08/16/2015 Comp Metabolic Vbc198 BILI T 0.3 mg/dL 08/16/2015 Comp Metabolic Xqh937 ALBUMIN 3.9 g/dL 08/16/2015 Comp Metabolic Ksu074 TPRO 7.1 g/dL 08/16/2015 Comp Metabolic Qhl121 GLOB 3.2 g/dL 08/16/2015 Comp Metabolic Yvf916 A/G Ratio 1.2 Ratio 08/16/2015 Comp Metabolic Vgu626 Osmo 264 mOsmo 08/16/2015 Lipid Ord30 CHOL 209 mg/dL 12/03/2014 Lipid Ord30 HDL 42.0 mg/dl 12/03/2014 Lipid Ord30 TRIG 219 mg/dL 12/03/2014 Lipid Ord30 LDL 123 mg/dL 12/03/2014 Lipid Ord30 C/HDL 5.0 Ratio 12/03/2014 Comp Metabolic Nmi868 NA 132 mEq/L 12/03/2014 Comp Metabolic Cvj996 K 4.0 mEq/L 12/03/2014 Comp Metabolic Wwg382 CL 101 mEq/L 12/03/2014 Comp Metabolic Mfj549 CO2 22.0 mEq/L 12/03/2014 Comp Metabolic Ysx595 ANION GAP 13 12/03/2014 Comp Metabolic Lmq463 GLUCOSE 123 mg/dL 12/03/2014 Comp Metabolic Cpo498 Creat 0.7 mg/dL 12/03/2014 Comp Metabolic Hun252 eGFR 97 ml/min/1.73m2 12/03/2014 Comp Metabolic Aax042 BUN 10 mg/dL 12/03/2014 Comp Metabolic Ryd198 B/C Ratio 14.7 Ratio 12/03/2014 Comp Metabolic Xyx189 CALCIUM 9.2 mg/dL 12/03/2014 Comp Metabolic Lzp798 ALK PHOS 88 U/L 12/03/2014 Comp Metabolic Yei292 AST(SGOT) 18 U/L 12/03/2014 Comp Metabolic Trg460 ALT(SGPT) 17 U/L 12/03/2014 Comp Metabolic Enz650 BILI T 0.5 mg/dL 12/03/2014 Comp Metabolic Kdf563 ALBUMIN 3.9 g/dL 12/03/2014 Comp Metabolic Ioi650 TPRO 6.8 g/dL 12/03/2014 Comp Metabolic Vnn079 GLOB 2.9 g/dL 12/03/2014 Comp Metabolic Rli182 A/G Ratio 1.3 Ratio 12/03/2014 Comp Metabolic Bgc278 Osmo 265 mOsmo 12/03/2014 Tsh Ord6 hTSH II 1.13 uIU/mL 12/03/2014 D-Dimer D-DIMER 168 NG/ML 12/03/2014 D-Dimer [id number] COMMENT 12/03/2014 Cbc With Differential Ord2 WBC [...] Procedure Codes Date THER/PROPH/DIAG INJ SC/IM CPT-4: 38660 06/27/2017 ROCEPHIN, PER 250 MG CPT-4: J0696 06/27/2017 IMMUNIZATION ADMIN CPT -4: 79455 03/16/2017 FLU VAC NO PRSV 4 FLETCHER 3 YRS+ CPT-4: 19599 03/16/2017 Pneumococcal Polysaccharide Vaccine, 23-Valent, Ad CPT-4: 76544 03/16/2017 IMMUNIZATION ADMIN EACH ADD CPT-4: 64783 03/16/2017 TRIAMCINOLONE ACET INJ NOS CPT-4: J3301 01/11/2017 TRIAMCINOLONE ACET INJ NOS CPT-4: J3301 02/28/2016 Vital Signs Date Vital 04/24/2018 Blood Pressure 1: 128/74 Code : 8480-6 BMI: 37.8 Code : 06288-6 Heart Rate 1 : 107 bpm Height: 5'6" SpO2: 98% Weight: 234 lbs 04/17/2018 Blood Pressure 1: 120/64 Code : 8480-6 BMI: 37.8 Code : 69957-7 Heart Rate 1 : 84 bpm Height: 5'6" SpO2: 96% Weight: 234 lbs 03/14/2018 Blood Pressure 1: 140/82 Code : 8480-6 BMI: 37.8 Code : 01972-5 Heart Rate 1 : 85 bpm Height: 5'6" SpO2: 98% Weight: 234 lbs 02/27/2018 Blood Pressure 1: 142/68 Code : 8480-6 BMI: 36.5 Code : 97879-8 Heart Rate 1 : 84 bpm Height: 5'6" SpO2: 97% Weight: 226 lbs 12/19/2017 Blood Pressure 1: 130/86 Code : 8480-6 BMI: 35.7 Code : 74020-9 Heart Rate 1 : 94 bpm Height: 5'6" Weight: 221 lbs 12/04/2017 Blood Pressure 1: 138/78 Code : 8480-6 BMI: 36.6 Code : 09901-6 Heart Rate 1 : 94 bpm Height: 5'6" SpO2: 98% Weight: 227 lbs 11/20/2017 Weight: 233 lbs 09/10/2017 Blood Pressure 1: 132/86 Code : 8480-6 Heart Rate 1: 86 bpm Height: Weight: 08/14/2017 Blood Pressure 1: 120/74 Code : 8480-6 BMI: 33.9 Code : 98070-8 Heart Rate 1 : 92 bpm Height: 5'6" SpO2: 94% Weight: 210 lbs 07/31/2017 Blood Pressure 1: 140/80 Code : 8480-6 BMI: 33.9 Code : 00538-4 Heart Rate 1 : 96 bpm Height: 5'6" SpO2: 97% Weight: 210 lbs 06/27/2017 Blood Pressure 1: 128/80 Code : 8480-6 BMI: 33.9 Code : 84439-7 Heart Rate 1 : 85 bpm Height: [...] Code : 8480-6 BMI: 39.9 Code : 21724-2 Heart Rate 1 : 79 bpm Height: 5'6" SpO2: 97% Weight: 247 lbs 01/26/2017 Blood Pressure 1: 132/74 Code : 8480-6 BMI: 37.8 Code : 80559-9 Heart Rate 1 : 74 bpm Height: 5'6" SpO2: 97% Weight: 234 lbs 01/11/2017 Blood Pressure 1: 118/68 Code : 8480-6 BMI: 38.7 Code : 53072-4 Heart Rate 1 : 91 bpm Height: 5'6" SpO2: 96% Weight: 240 lbs 11/30/2016 Blood Pressure 1: 132/76 Code : 8480-6 BMI: 38.3 Code : 39914-8 Heart Rate 1 : 71 bpm Height: 5'6" SpO2: 92% Weight: 237 lbs 09/28/2016 Blood Pressure 1: 122/72 Code : 8480-6 BMI: 39.1 Code : 48454-5 Heart Rate 1 : 88 bpm Height: 5'6" SpO2: 94% Weight: 242 lbs 08/24/2016 Blood Pressure 1: 130/87 Code : 8480-6 BMI: 41.5 Code : 15506-3 Heart Rate 1 : 95 bpm Height: 5'6" Respiratory Rate: 16 bpm SpO2: 98% Temperature: 36.9 (C) / 98.5 (F ) Weight: 257 lbs 07/13/2016 Blood Pressure 1: 132/84 Code : 8480-6 BMI: 42.0 Code : 88513-6 Heart Rate 1 : 73 bpm Height: 5'6" SpO2: 97% Weight: 260 lbs 05/19/2016 Blood Pressure 1: 138/76 Code : 8480-6 BMI: 40.8 Code : 18951-1 Heart Rate 1 : 80 bpm Height: 5'6" SpO2: 98% Weight: 253 lbs 03/16/2016 Blood Pressure 1: 122/70 Code : 8480-6 BMI: 40.4 Code : 74050-0 Heart Rate 1 : 72 bpm Height: 5'6" SpO2: 98% Weight: 250 lbs 02/28/2016 Blood Pressure 1: 136/86 Code : 8480-6 BMI: 40.2 Code : 72663-0 Heart Rate 1 : 87 bpm Height: 5'6" SpO2: 96% Temperature: 36.3 (C) / 97.3 (F) Weight: 249 lbs 01/13/2016 Blood Pressure 1: 120/76 Code : 8480-6 BMI: 40.4 Code : 72572-8 Heart Rate 1 : 68 bpm Height: 5'6" SpO2: 97% Weight: 250 lbs 09/27/2015 Blood Pressure 1: 112/70 Code : 8480-6 BMI: 38.4 Code : 92057-9 Heart Rate 1 : 76 bpm Height: 5'6" SpO2: 98% Weight: 238 lbs 08/30/2015 Blood Pressure 1: 144/82 Code : 8480-6 BMI: 39.5 Code : 03438-9 Heart Rate 1 : 82 bpm Height: 5'6" SpO2: 97% Weight: 245 lbs 08/16/2015 Blood Pressure 1: 140/72 Code : 8480-6 BMI: 38.9 Code : 99439-9 Heart Rate 1 : 72 bpm Height: 5'6" SpO2: 97% Weight: 241 lbs 07/15/2015 Blood Pressure 1: 128/80 Code : 8480-6 BMI: 39.3 Code : 59419-7 Heart Rate 1 : 86 bpm Height: 5'6" SpO2: 98% Weight: 243 lbs 8 oz 06/16/2015 Blood Pressure 1: 146/86 Code : 8480-6 BMI: 39.6 Code : 86363-6 Heart Rate 1 : 76 bpm Height: 5'6" SpO2: 97% Weight: 245 lbs 8 oz 04/02/2015 Blood Pressure 1: 132/86 Code : 8480-6 BMI: 40.7 Code : 49359-9 Heart Rate 1 : 94 bpm Height: 5'6" SpO2: 98% Weight: 252 lbs 12/02/2014 Blood Pressure 1: 122/90 Code : 8480-6 BMI: 41.6 Code : 90256-4 Heart Rate 1 : 77 bpm Height: [...] data Encounters Encounter Performer Location Codes Date [id number] EST. PATIENT, LEVEL IV Diagnosis: Right upper quadrant pain[ICD10: R10.11] Diagnosis: Other chest pain[ICD10: R07.89] Petra Trejo MD, [facility] CPT-4 : 10899 04/24/2018 [id number] EST. PATIENT, LEVEL III Diagnosis: Generalized anxiety disorder[ICD10: F41.1] Diagnosis: Major depressive disorder, recurrent, mild[ICD10: F33.0] Diagnosis: Essential (primary) hypertension[ICD10: I10] Diagnosis: Type 2 diabetes mellitus without complications[ICD10: E11.9] [facility] CPT-4: 70977 04/17/2018 [id number] EST. PATIENT, LEVEL III Diagnosis: Localized edema[ICD10: R60.0] Diagnosis: Essential (primary) hypertension[ICD10: I10] [facility] CPT-4: 72620 03/14/2018 [id number] EST. PATIENT, LEVEL III Diagnosis: Pain in left knee[ICD10: M25.562] Diagnosis: Other obesity due to excess calories[ICD10: E66.09] Diagnosis: Other insomnia[ICD10: G47.09] Diagnosis: Generalized anxiety disorder[ICD10: F41.1] [facility] CPT-4: 91113 02/27/2018 ([id number]) Miscellaneous no charge Diagnosis: Other obesity due to excess calories[ICD10: E66.09] [facility] CPT-4: 47720 12/19/2017 [id number] EST. PATIENT, LEVEL III Diagnosis: Pain in right foot[ICD10: M79.671] Diagnosis: Pain in right ankle and joints of right foot[ICD10: M25.571] [facility] CPT-4: 08698 12/04/2017 01529 EST. PATIENT, LEVEL III Diagnosis: Pain in left knee[ICD10: M25.562] Diagnosis: Type 2 diabetes mellitus without complications[ICD10: E11.9] Diagnosis: Other obesity due to excess calories[ICD10: E66.09] Petra Trejo MD, [facility] CPT-4: 68766 11/20/2017 88700 EST. PATIENT, LEVEL III Diagnosis: Pain in left knee[ICD10: M25.562] Petra Trejo MD, [facility] CPT -4: 88645 09/10/2017 14984 EST. PATIENT, LEVEL III Diagnosis: Encounter for follow-up examination after completed treatment for conditions other than malignant neoplasm[ICD10: Z09] Diagnosis: Pain in left knee[ICD10: M25.562] Petra Trejo MD, [facility] CPT -4: 60093 08/14/2017 78263 EST. PATIENT, LEVEL III Diagnosis: Pain in left knee[ICD10: M25.562] Petra Trejo MD, [facility] CPT -4: 93795 07/31/2017 32041 EST. PATIENT, LEVEL III Diagnosis: Acute laryngopharyngitis[ICD10: J06.0] Diagnosis: Other allergic rhinitis[ICD10: J30.89] Petra Trejo MD, [facility] CPT-4: 66393 06/27/2017 50017 EST. PATIENT, LEVEL III Diagnosis: Ganglion, left hand[ICD10: M67.442] Diagnosis: Essential (primary) hypertension[ICD10: I10] Diagnosis: Generalized anxiety disorder[ICD10: F41.1] Diagnosis: Other insomnia[ICD10: G47.09] Petra Trejo MD, [facility] CPT-4 : 94808 05/29/2017 56189 EST. PATIENT, LEVEL III Diagnosis: Essential (primary) hypertension[ICD10: I10] Diagnosis: Palpitations[ICD10: R00.2] Diagnosis: Generalized anxiety disorder[ICD10: F41.1] Petra Trejo MD, [facility] CPT-4: 77644 05/21/2017 67298 EST. PATIENT, LEVEL III Diagnosis: Pain in right foot[ICD10: M79.671] Petra Trejo MD, [facility] CPT-4: 23401 04/20/2017 89864 EST. PATIENT, LEVEL IV Diagnosis: Other insomnia[ICD10: G47.09] Diagnosis: Other skin changes[ICD10: R23.8] Petra Trejo MD, [facility] CPT- 4: 56776 01/26/2017 73455 EST. PATIENT, LEVEL IV Diagnosis: Acute bronchitis due to other specified organisms[ICD10: J20.8] Petra Trejo MD, [facility] CPT-4: 71980 01/11/2017 ([id number]) 25845 EST. PATIENT, LEVEL IV Diagnosis: Essential (primary) hypertension[ICD10: I10] Diagnosis: Other insomnia[ICD10: G47.09] Diagnosis: Primary generalized (osteo)arthritis[ICD10: M15.0] Diagnosis: Other obesity due to excess calories[ICD10: E66.09] Claudette Trejo MD, [facility] CPT-4: 93142 11/30/2016 ([id number]) 96722 EST. PATIENT, LEVEL III Diagnosis: Other obesity due to excess calories[ICD10: E66.09] Diagnosis: Other insomnia[ICD10: G47.09] Diagnosis: Generalized anxiety disorder[ICD10: F41.1] Claudette Trejo MD, [facility] CPT-4: 25855 09/28/2016 ([id number]) 03344 EST. PATIENT, LEVEL IV Diagnosis: Generalized anxiety disorder[ICD10: F41.1] Diagnosis: Major depressive disorder, recurrent, mild[ICD10: F33.0] Diagnosis: Other obesity due to excess calories[ICD10: E66.09] Diagnosis: Other insomnia[ICD10: G47.09] Claudette Trejo MD, [facility] CPT-4: 88126 08/24/2016 ([id number]) 60709 EST. PATIENT, LEVEL III Diagnosis: Other obesity due to excess calories[ICD10: E66.09] Diagnosis: Major depressive disorder, recurrent, moderate[ICD10: F33.1] Diagnosis: Low back pain[ICD10: M54.5] Heidy Trejo MD, [facility] CPT- 4: 83722 07/13/2016 50565 EST. PATIENT, LEVEL IV Diagnosis: Other muscle spasm[ICD10: M62.838] Diagnosis: Generalized anxiety disorder[ICD10: F41.1] Diagnosis: Major depressive disorder, recurrent, moderate[ICD10: F33.1] Diagnosis: Other insomnia[ICD10: G47.09] Petra Trejo MD, [facility] CPT-4 : 17069 05/19/2016 ([id number]) 22244 EST. PATIENT, LEVEL III Diagnosis: Generalized anxiety disorder[ICD10: F41.1] Diagnosis: Major depressive disorder, recurrent, moderate[ICD10: F33.1] Heidy Trejo MD, [facility] CPT-4: 47175 03/16/2016 ([id number]) 89418 EST. PATIENT, LEVEL III Diagnosis: Streptococcal pharyngitis[ICD10: J02.0] Claudette Trejo MD, [facility] CPT-4: 25058 02/28/2016 ([id number]) 25498 EST. PATIENT, LEVEL III Diagnosis: Generalized anxiety disorder[ICD10: F41.1] Diagnosis: Other obesity due to excess calories[ICD10: E66.09] Heidy Trejo MD, [facility] CPT-4: 93302 01/13/2016 ([id number]) 74731 EST. PATIENT, LEVEL III Diagnosis: Generalized anxiety disorder[ICD10: F41.1] Diagnosis: Major depressive disorder, recurrent, unspecified[ICD10: F33.9] Heidy Trejo MD, [facility] CPT-4: 58008 09/27/2015 20110 EST. PATIENT, LEVEL IV Diagnosis: Chronic pain syndrome[ICD10: G89.4] Diagnosis: Other obesity due to excess calories[ICD10: E66.09] Diagnosis: Essential (primary) hypertension[ICD10: I10] Diagnosis: Generalized anxiety disorder[ICD10: F41.1] Diagnosis: Excessive and frequent menstruation with regular cycle[ICD10: N92.0] Diagnosis: Pain in right knee[ICD10: M25.561] Petra Trejo MD, [facility] CPT-4: 08029 08/30/2015 08493 EST. PATIENT, LEVEL IV Diagnosis: Palpitations[ICD10: R00.2] Diagnosis: Other obesity due to excess calories[ICD10: E66.09] Petra Trejo MD, [facility] CPT-4: 04790 08/16/2015 ([id number] 77737 EST. PATIENT, LEVEL IV Diagnosis: Pain in right knee[ICD10: M25.561] Diagnosis: Primary generalized (osteo)arthritis[ICD10: M15.0] Diagnosis: Acute maxillary sinusitis, unspecified[ICD10: J01.00] Heidy Trejo MD, [facility] CPT-4: 09755 07/15/2015 ([id number]) 98973 EST. PATIENT, LEVEL IV Diagnosis: Primary generalized (osteo)arthritis[ICD10: M15.0] Diagnosis: Restless legs syndrome[ICD10: G25.81] Diagnosis: Chronic pain syndrome[ICD10: G89.4] Heidy Trejo MD, [facility] CPT-4: 53767 06/16/2015 ([id number]) 37969 EST. PATIENT, LEVEL III Diagnosis: Primary generalized (osteo)arthritis[ICD10: M15.0] Diagnosis: Varicose veins of bilateral lower extremities with pain[ICD10: I83.813] Claudette Trejo MD, [facility] CPT-4: 57103 ([id number]) OFFICE VISIT, NEW - LEVEL 3 Diagnosis: Osteoarthritis[ICD9: 715.90] Diagnosis: ABNORMAL WEIGHT GAIN[ICD9: 783.1] Diagnosis: Superficial thrombophlebitis[ICD9: 451.9] Carey Trejo MD, [facility] CPT-4: 39134 12/02/2014 Plan of Care Planned Activity Notes [...] she is to follow up with her coffee weigher 04/24/2018 Appointment: Petra Rivas WPtel: [address] [place], [place] [address] [place] (30 min) Complex 04/24/2018 Patient Education: [...] control. 04/17/2018 Appointment: [phone] [place] ([facility] min) Moderate 04/17/2018 Patient Education: Patient [...] edema. 03/14/2018 Appointment: [facility] [place] (15 min) Moderate 03/14/2018 Patient Education: Patient [...] to ortho 02/27/2018 Appointment: Petra Rivas [facility]Ptel: [facility] [place] (30 min) Complex 02/27/2018 Patient Education: Patient [...] not improve. 12/04/2017 Appointment: Petra Rivas WPtel: [facility] [place] (15 min) Moderate 12/04/2017 Patient Education: Patient [...] control. 11/20/2017 Appointment: Pet[facility] Rivas [facility]el[facility] [facility] [place] [place] (15 min) Moderate 11/20/2017 Patient Education: [...] not improve. 09/10/2017 Appointment: Pet[facility]ivas [facility]el[phone] [place] [place] (15 min) Moderate 09/10/2017 Patient Education: [...] improve. 08/14/2017 Appointment: Pet[facility] Rivas [facility]el[facility] [place] [place] (30 min) Complex 08/14/2017 Patient Education: Patient Medication Summary Completed 08/14/2017 Appointment: Pet[facility]ivas [facility]el[facility] [place] [place] (15 min) Moderate 08/01/2017 Visit Plan: Knee pain - pt is to use RICE - Rest, Ice, Compression, Elevation - pt is to use crutches as directed - The pt is to use prn antiinflammatories to manage acute pain. The patient is to call the office if the pain is worsening or does not improve. 07/31/2017 Appointment: Petra Rivas WPtel: [facility] [place] (30 min) Complex 07/31/2017 Patient Education: Patient Medication Summary Completed 07/31/2017 Care Plan: X-RAY EXAM OF KNEE 3 LOINC : 92113-0 Pending 07/31/2017 Visit Plan: URI - Pt [...] allergy spray. 06/27/2017 Appointment: Petra Rivas WPtel: [facility] [place] (15 min) Moderate 06/27/2017 Patient Education: Patient Medication Summary Completed 06/27/2017 Referral: Jignesh Quinn [facility] Patient informed. Referral info faxed. Completed 06/13/2017 [...] Dr. Quinn 05/29/2017 Appointment: Petra Rivas WPtel: [address] [facility] [place] (15 min) Moderate 05/29/2017 Patient Education: Patient Medication Summary Completed 05/29/2017 Care Plan: Referral Order SNOMED-CT : [id number] Pending 05/29/2017 Appointment: Petra Rivas WPtel: [phone] [place] [place] (15 min) Moderate 05/28/2017 Visit Plan: [...] concerns. 05/21/2017 Appointment: Pet[facility]ivas [facility]el[phone] [place] [place] (15 min) Moderate 05/21/2017 Patient Education: Patient Medication Summary Completed 05/21/2017 Visit Plan: Right heel pain - will send RX, pt is to do stretches as directed - The pt is to use prn antiinflammatories to manage acute pain. The patient is to call the office if the pain is worsening or does not improve. 04/20/2017 Appointment: Petra Rivas [facility]Ptel: [phone] [place] (30 min) Complex 04/20/2017 Patient Education: Patient Medication Summary Completed 04/20/2017 Appointment: Petra Rivas WPtel: [phone] [facility] (30 min) Complex 03/29/2017 Patient Education: Patient Medication Summary Completed 03/16/2017 Referral: Maycol Quijano Referral Initiated 02/08/2017 Care Plan: Referral Order SNOMED-CT : [id number] Pending 01/28/2017 Visit Plan: Insomnia - Pt [...] or concerns. 01/26/2017 Appointment: Petra Rivas WPtel: [facility]5 [facility] (30 min) Complex 01/26/2017 Patient Education: [...] acutely worsen. 01/11/2017 Appointment: Petra Rivas WPtel: [facility] (15 min) Moderate 01/11/2017 Patient Education: Patient [...] on use. 11/30/2016 Appointment: Claudette Savage WPtel: [address] [place], [place] [phone] (15 min) Moderate 11/30/2016 Patient Education: Patient Medication Summary Completed 11/30/2016 Patient Education: Obesity Completed 11/30/2016 Care Plan: BMI Above normal followup SELF-MGMT EDUC & TRAIN 1 PT Pending 2016 Visit Plan: Icnuekj-wuicchkmwl-pqynilsm with increase in cymbalta-no changes Insomnia-RX for belsomra provided and instructed on use Obesity-patient down 15#-no changes-continue diet/exercise-follow up in 2 months 09/28/2016 Appointment: Claudette Savage WPtel: [address] [place], [place] [phone] (15 min) Moderate 09/28/2016 Patient Education: Patient Medication Summary Completed 09/28/2016 Patient Education: Obesity Completed 09/28/2016 Care Plan: BMI Above normal followup SELF-MGMT EDUC & TRAIN 1 PT Pending 2016 Visit Plan: Pjqpduf-oghhjwhcic-xhjtiysw-increase cymbalta to 60mg daily. Increase xanax as [...] for insomnia/anxiety 08/24/2016 Appointment: Claudette Savage WPtel: [facility]8 [address] (15 min) Moderate 08/24/2016 Patient Education: Patient [...] not improving. 07/13/2016 [facility]ment[phone] (15 min) Moderate 07/13/2016 Patient Education: [...] time insomnia. 05/19/2016 Appointment: Pet[facility] Rivas [facility]el: [phone] (30 min) Complex 05/19/2016 Patient Education: Patient [...] this patient. 03/16/2016 Appointment: Heidy Trejo WPtel: [facility]3 [facility] (15 min) Moderate 03/16/2016 Patient [...] swab. 02/28/2016 Appointment: Claudette Savage WPtel: [phone] [phone] [place] (10 min) Simple 02/28/2016 Patient Education: [...] stop lexapro 01/13/2016 Appointment: Heidy Trejo WPtel: [facility]1 [facility] (15 min) Moderate 01/13/2016 Patient [...] 09/27/2015 Care Plan: Referral Order SNOMED-CT : [id number] Pending 08/31/2015 Visit Plan: Anxiety - the [...] show improvement. 07/15/2015 Appointment: Heidy Trejo WPtel: [address] [place], [place] [address] (15 min) Moderate 07/15/2015 Patient Education: Patient [...] treatment at vein clinic 04/02/2015 Appointment: Claudette [facility]el: [phone] [place] (15 min) Moderate 04/02/2015 Patient Education: [...] WPtel: [facility] [place] [phone] they will call and set the appt with her Initiated Referral: Maycol Quijano Referral Initiated Referral: Belle Hoffman WPtel: [phone] Referral Initiated Referral: Jignesh Quinn [facility] Referral Initiated Instructions Comment . Hypertension - [...] she is to follow up with her coffee weigher . Anxiety and Depression- the patient has [...] 1 mg at night for anxiety . Atlfunj-lhiltknbvp-mzxwtzys-increase cymbalta to 60mg daily. Increase xanax as [...] today - will culture the swab. . Palpitations - pt states that she [...] 2 weeks for weight check. BELSOMRA . Exiwzhw-colbnzztps-xeyqdghn with increase in cymbalta-no changes Insomnia-RX for belsomra provided and instructed on use Obesity-patient down 15#-no changes-continue diet/exercise-follow up in 2 months Breathing treatments 3 times a day x [...] pt is to call for acute concerns. [employer] website contrave 1 pill nightly x 1 [...] to allow for greater blood glucose control. Munira . Strep throat - pt give rx [...] worsening or does not improve. . Right heel pain - will send [...] Call if symptoms do not show improvement. pramipexole - 0.5mg - take at bedtime [...]
--- OUTSIDE RECORDS SUMMARY | 2018-07-24 23:42 | XMS REPORT | CCD ---
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 Name Role Phone PP Unavailable CCM Unavailable Summary Purpose Interface Exchange Insurance Providers Payer name Policy type / Coverage type Covered republican ID Effective Begin Date Effective End Date [facility] Commercial Insurance [id number] Unknown Family history Brother Diagnosis Age At [...] Description Effective Dates Tobacco history SNOMED CT: 7729920 Quit less than 5 years ago 04/02/2015 Alcohol history Unknown occasionally drinks alcohol 04/02/2015 Marital status Unknown Manuel Vitale 12/02/2014 Number of children Unknown 3 12/02/2014 Allergies, Adverse Reactions, Alerts Substance Reaction Codes Entered Date Inactivated Date Status * NO KNOWN FOOD ALLERGIES Unknown 12/02/2014 No Inactive Date Active Penicillin Unknown 12/02/2014 No Inactive Date Active tramadol RxNorm: 80011 12/02/2014 No Inactive Date Active Past Medical [...] Instructions Protonix 40 mg tablet,delayed release RxNorm: 800324 1 Tablet(s) PO daily 04/24/2018 05/23/2018 Active Zorvolex 35 mg capsule RxNorm: 9374721 TAKE 1 CAPSULE BY MOUTH THREE (3) TIMES DAILY 04/22/2018 08/19/2018 Active hydrochlorothiazide 25 mg tablet RxNorm: 924598 1 TABLET(S) PO DAILY 04/08/2018 07/06/2018 Active Zorvolex 35 mg capsule RxNorm: 8542472 TAKE 1 CAPSULE BY MOUTH THREE (3) TIMES DAILY 03/27/2018 04/21/2018 Inactive gabapentin 300 mg capsule RxNorm: 866078 1 CAPSULE(S) PO TID 04/14/2018 Inactive hydrochlorothiazide 25 mg tablet RxNorm: 433264 1 Tablet(s) PO daily 03/14/2018 04/07/2018 Inactive Cymbalta 60 mg capsule,delayed release RxNorm: 565256 1 Capsule(s) PO daily TAKE 1 CAPSULE BY MOUTH DAILY 02/27/20182019 Active Victoza 2-Marek 0.6 mg/0.1 mL (18 mg/3 mL) subcutaneous pen injector RxNorm: 927716 Milligram(s) INJECT 1.8 MG SUB-Q ONCE DAILY 02/27/2018 08/20/2019 Active qty sufficient Xanax 1 mg tablet RxNorm: 927878 1-2 Tablet(s) PO QHS as needed insomnia 02/27/2018 05/27/2018 Active atorvastatin 20 mg tablet RxNorm: 215134 1 Tablet(s) PO daily 02/27/2018 05/22/2019 Active Ambien 10 mg tablet RxNorm: 622267 1 Tablet(s) PO QHS as needed insomnia 02/27/2018 05/26/2018 Active Cymbalta 60 mg capsule,delayed release RxNorm: 253165 TAKE 1 CAPSULE BY MOUTH DAILY 02/27/2018 02/26/2018 Inactive gabapentin 300 mg capsule RxNorm: 476249 1 Capsule(s) PO TID 03/24/2018 Inactive meloxicam 7.5 mg tablet RxNorm: 168188 1 Tablet(s) PO daily 1 TABLET(S) PO DAILY 02/27/2018 04/14/2018 Inactive atorvastatin 20 mg tablet RxNorm: 711538 1 Tablet(s) PO daily 02/05/2018 02/26/2018 Inactive atorvastatin 20 mg tablet RxNorm: 760215 1 Tablet(s) PO daily 02/05/2018 02/04/2018 Inactive meloxicam 7.5 mg tablet RxNorm: 088756 1 TABLET(S) PO DAILY 02/26/2018 Inactive oxycodone 15 mg tablet RxNorm: 6123135 1 Tablet(s) PO QID as needed 01/07/2018 02/19/2018 Inactive lactulose 20 gram/30 mL oral solution RxNorm: 753094 15-30 Milliliter(s) PO BID as needed 12/31/2017 02/20/2018 Inactive meloxicam 7.5 mg tablet RxNorm: 507914 1 TABLET(S) PO DAILY 06/201701/31/2018 Inactive Zorvolex 35 mg capsule RxNorm: 5455764 1 Capsule(s) PO TID 06/201702/20/2018 Inactive Ambien 10 mg tablet RxNorm: 279818 1 Tablet(s) PO QHS as needed insomnia 12/04/2017 02/26/2018 Inactive oxycodone 15 mg tablet RxNorm: 6145836 1 Tablet(s) PO QID as needed 12/04/2017 01/06/2018 Inactive prednisone 20 mg tablet RxNorm: 808228 2 Tablet(s) PO daily 12/08/2017 Inactive Victoza 2-Marek 0.6 mg/0.1 mL (18 mg/3 mL) subcutaneous pen injector RxNorm: 640855 Milligram(s) INJECT 1.8 MG SUB-Q ONCE DAILY 11/20/2017 02/26/2018 Inactive meloxicam 7.5 mg tablet RxNorm: 273432 1 Tablet(s) PO daily 02/201812/12/2017 Inactive phentermine 37.5 mg tablet RxNorm: 316855 1 Tablet(s) PO daily 11/20/2017 12/19/2017 Inactive Ambien 10 mg tablet RxNorm: 348000 1 Tablet(s) PO QHS as needed insomnia 11/20/2017 12/18/2017 Inactive Xanax 1 mg tablet RxNorm: 908794 1.5 Tablet(s) PO QHS as needed insomnia 11/20/2017 02/26/2018 Inactive hydrocodone 7.5 mg-acetaminophen 325 mg tablet RxNorm: 137130 1 Tablet(s) PO TID as needed 11/16/2017 01/06/2018 Inactive Cymbalta 60 mg capsule,delayed release RxNorm: 922863 TAKE 1 CAPSULE BY MOUTH DAILY 11/02/2017 02/26/2018 Inactive Xanax 1 mg tablet RxNorm: 110314 1 Tablet(s) PO BID PRN as needed anxiety 10/04/2017 11/19/2017 Inactive Victoza 2-Marek 0.6 mg/0.1 mL (18 mg/3 mL) subcutaneous pen injector RxNorm: 416599 INJECT 1.8 MG SUB-Q ONCE DAILY 10/04/2017 11/19/2017 Inactive hydrocodone 7.5 mg-acetaminophen 325 mg tablet RxNorm: 859958 1 Tablet(s) PO TID as needed 09/17/2017 11/15/2017 Inactive hydrocodone 7.5 mg-acetaminophen 325 mg tablet RxNorm: 449500 1 Tablet(s) PO TID as needed 09/10/2017 09/16/2017 Inactive prednisone 10 mg tablet RxNorm: 998657 Tablet(s) PO 09/10/2017 11/13/2017 Inactive 6, 5,4,3,2,1 Zorvolex 35 mg capsule RxNorm: 7001496 1 Capsule(s) PO TID 11/13/2017 Inactive Ambien 10 mg tablet RxNorm: 306753 1 Tablet(s) PO QHS as needed insomnia 08/29/2017 11/19/2017 Inactive Zorvolex 35 mg capsule RxNorm: 5587373 1 Capsule(s) PO TID 09/06/2017 Inactive Zorvolex 35 mg capsule RxNorm: 2542253 1 Capsule(s) PO TID 06/201708/27/2017 Inactive Zorvolex 35 mg capsule RxNorm: 0551509 1 Capsule(s) PO TID 06/201708/12/2017 Inactive prednisone 20 mg tablet RxNorm: 660817 2 Tablet(s) PO daily 08/04/2017 Inactive hydrocodone 7.5 mg-acetaminophen 325 mg tablet RxNorm: 175206 1 Tablet(s) PO TID as needed 07/31/2017 09/09/2017 Inactive Zorvolex 35 mg capsule RxNorm: 0808611 1 Capsule(s) PO TID as needed 07/31/2017 11/13/2017 Inactive ceftriaxone 500 mg solution for injection RxNorm: 7499778 1 Milliliter(s) Inj 06/27/2017 06/27/2017 Inactive Keflex 500 mg capsule RxNorm: 795330 1 Capsule(s) PO TID 201707/03/2017 Inactive Ambien 10 mg tablet RxNorm: 276292 1 Tablet(s) PO daily 201708/25/2017 Inactive tramadol 50 mg tablet RxNorm: 608092 1 Tablet(s) PO TID as needed 05/29/2017 07/27/2017 Inactive Xanax 1 mg tablet RxNorm: 467089 1 Tablet(s) PO BID PRN as needed anxiety 05/21/2017 10/03/2017 Inactive alprazolam 1 mg tablet RxNorm: 782971 1 Tablet(s) PO BID as needed 05/21/2017 06/19/2017 Inactive Celebrex 200 mg capsule RxNorm: 169604 1 CAPSULE(S) PO BID 11/05/2017 Inactive prednisone 20 mg tablet RxNorm: 604795 2 Tablet(s) PO daily 12/201604/24/2017 Inactive Ambien 10 mg tablet RxNorm: 075968 Tablet(s) PO 04/20/2017 05/28/2017 Inactive hydrocodone 5 mg-acetaminophen 325 mg tablet RxNorm: 551688 1 Tablet(s) PO QID as needed 04/20/2017 08/01/2017 Inactive Cymbalta 60 mg capsule,delayed release RxNorm: 788573 1 Capsule(s) PO daily 04/20/2017 02/26/2018 Inactive Victoza 2-Marek 0.6 mg/0.1 mL (18 mg/3 mL) subcutaneous pen injector RxNorm: 816876 INJECT 1.8 MG SUB-Q ONCE DAILY 03/26/2017 09/21/2017 Inactive diazepam 2 mg tablet RxNorm: 454825 1 Tablet(s) PO QHS as needed insomnia 01/28/2017 05/07/2017 Inactive Victoza 2-Marek 0.6 mg/0.1 mL (18 mg/3 mL) subcutaneous pen injector RxNorm: 917828 1.8 Milligram(s) SQ daily 01/26/201703/25 Inactive dispense quantity sufficient Tussionex Pennkinetic ER 10 mg-8 mg/5 mL suspension, extended release RxNorm: 4488109 5 Milliliter(s) PO BID 01/11/2017 01/15/2017 Inactive Xanax 1 mg tablet RxNorm: 528659 1 Tablet(s) PO BID PRN as needed anxiety 01/11/2017 05/20/2017 Inactive Zithromax Z-Marek 250 mg tablet RxNorm: 700718 1 Tablet(s) PO UD 01/11/2017 01/15/2017 Inactive zpack albuterol sulfate 2.5 mg/3 mL (0.083 %) solution for nebulization RxNorm: 702856 3 Milliliter(s) INH UD 01/11/201707/2017 Inactive prednisone 20 mg tablet RxNorm: 062486 2 Tablet(s) PO daily 01/15/2017 Inactive Kenalog 40 mg/mL suspension for injection RxNorm: 8531194 1.5 Milliliter(s) Inj 01/11/2017 01/11/2017 Inactive Celebrex 200 mg capsule RxNorm: 781863 1 Capsule(s) PO BID 02/27/2017 Inactive Ambien 5 mg tablet RxNorm: 386566 1 Tablet(s) PO HS PRN 11/3008/07/2017 Inactive trazodone 50 mg tablet RxNorm: 828354 1/2 to 1 Tablet(s) PO QHS 10/13/2016 10/12/2016 Inactive trazodone 50 mg tablet RxNorm: 753808 1/2 to 1 Tablet(s) PO QHS 10/13/2016 11/29/2016 Inactive Belsomra 10 mg tablet RxNorm: 4783550 1 Tablet(s) PO QHS 201611/29/2016 Inactive may increase to 20mg if 10mg not effective Cymbalta 60 mg capsule,delayed release RxNorm: 624077 1 Capsule(s) PO daily 08/24/2016 03/21/2017 Inactive Xanax 1 mg tablet RxNorm: 337759 1 Tablet(s) PO BID PRN as needed anxiety 08/24/2016 01/10/2017 Inactive Victoza 2-Marek 0.6 mg/0.1 mL (18 mg/3 mL) subcutaneous pen injector RxNorm: 835393 Milligram(s) SQ 08/24/2016 08/23/2016 Inactive Victoza 2-Marek 0.6 mg/0.1 mL (18 mg/3 mL) subcutaneous pen injector RxNorm: 381487 1.8 Milligram(s) SQ 08/24/2016 01/25/2017 Inactive Vitamin D2 50,000 unit capsule RxNorm: 173042 1 Capsule(s) PO QW 07/13/2016 10/10/2016 Inactive Cymbalta 30 mg capsule,delayed release RxNorm: 743748 1 Capsule(s) PO daily 07/13/2016 08/23/2016 Inactive Belviq XR 20 mg tablet,extended release RxNorm: 6594817 1 Tablet(s) PO daily 05/30/2016 05/29/2016 Inactive prednisone 20 mg tablet RxNorm: 524389 2 Tablet(s) PO daily 06/03/2016 Inactive prednisone 20 mg tablet RxNorm: 265296 2 Tablet(s) PO daily 05/29/2016 Inactive Belviq XR 20 mg tablet,extended release RxNorm: 4025705 1 Tablet(s) PO daily 05/30/2016 06/28/2016 Inactive cyclobenzaprine 5 mg tablet RxNorm: 998947 1-2 Tablet(s) PO TID as needed 05/19/2016 05/23/2016 Inactive metoprolol succinate ER 25 mg tablet,extended release 24 hr RxNorm: 555879 1 Tablet(s) PO QPM 04/10/2016 04/13/2016 Inactive metoprolol succinate ER 25 mg tablet,extended release 24 hr RxNorm: 293700 1 Tablet(s) PO QPM 04/10/2016 04/09/2016 Inactive escitalopram 10 mg tablet RxNorm: 132609 1 Tablet(s) PO daily 03/16/2016 07/12/2016 Inactive estradiol 1 mg tablet RxNorm: 346743 1 Tablet(s) PO every other day 03/16/2016 05/15/2016 Inactive Kenalog 40 mg/mL suspension for injection RxNorm: 6105899 Milliliter(s) Inj 02/28/2016 02/28/2016 Inactive Zithromax Z-Marek 250 mg tablet RxNorm: 801728 1 Tablet(s) PO UD 02/28/2016 03/03/2016 Inactive zpack Lexapro 10 mg tablet RxNorm: 348855 1 Tablet(s) PO daily 201502/27/2016 Inactive Lexapro 10 mg tablet RxNorm: 522615 1 Tablet(s) PO daily 201509/26/2015 Inactive Vimovo 500 mg-20 mg tablet,immediate and delay release RxNorm: 859861 1 Tablet(s) PO BID as needed for pain 08/30/201509/25 Inactive azithromycin 250 mg tablet RxNorm: 347322 1 Tablet(s) PO UD 2 pills on day #1, then one pill daily x 4 days 07/15/2015 Inactive hydrocodone 10 mg-acetaminophen 325 mg tablet RxNorm: 318392 1 Tablet(s) PO QID 06/16/2015 01/12/2016 Inactive pramipexole 0.5 mg tablet RxNorm: 018249 1 Tablet(s) PO QPM 07/201507/14/2015 Inactive Celebrex 200 mg capsule RxNorm: 472754 1 Capsule(s) PO daily 05/02/2015 Inactive Celebrex 200 mg capsule RxNorm: 614648 1 Capsule(s) PO daily 01/12/2016 Inactive hydrocodone 7.5 mg-acetaminophen 325 mg tablet RxNorm: 517582 1 Tablet(s) PO Q6 PRN 05/03/2015 06/15/2015 Inactive Mobic 15 mg tablet RxNorm: 029776 1 Tablet(s) PO daily 201405/02/2015 Inactive hydrocodone 7.5 mg-acetaminophen 325 mg tablet RxNorm: 129353 1 Tablet(s) PO Q6 PRN 04/02/2015 05/02/2015 Inactive hydrocodone 5 mg-acetaminophen 325 mg tablet RxNorm: 918838 1 Tablet(s) PO Q6 as needed 12/11/2014 04/01/2015 Inactive Pennsaid 1.5 % topical drops RxNorm: 079592 40 Drop(s) TOP QID as needed 12/07/2014 02/04/2015 Inactive Apply 40 drops to each knee joint 4 times per day as needed for osteoarthritis pain estradiol 1 mg tablet RxNorm: 047021 1 Tablet(s) PO QHS No Start Date 03/15/2016 Inactive Xanax 0.5 mg tablet RxNorm: 265698 1 Tablet(s) PO Q6 as needed anxiety No Start Date 08/23/2016 Inactive Tylenol Extra Strength 500 mg tablet RxNorm: 156686 3 Tablet(s) PO BID after breakfast and after lunch No Start Date Inactive lactulose 20 gram/30 mL oral solution RxNorm: 283024 15-30 Milliliter(s) PO BID as needed No Start Date 12/30/2017 Inactive hydrocodone 5 mg-acetaminophen 325 mg tablet RxNorm: 516086 1 Tablet(s) PO Q6 as needed No Start Date 12/10/2014 Inactive Phenergan-Codeine syrup RxNorm: 5-10 Milliliter(s) PO QID as needed No Start Date 11/13/2017 Inactive ibuprofen 200 mg capsule RxNorm: 416218 4 Capsule(s) PO QID as needed No Start Date 04/01/2015 Inactive Medication Administered Medication Codes Instructions Start Date Status ceftriaxone 500 mg solution for injection RxNorm: 8894753 1Milliliter 06/27/2017 No longer Active Kenalog 40 mg/mL suspension for injection RxNorm: 3738628 1.5Milliliter 01/11/2017 No longer Active Kenalog 40 mg/mL suspension for injection RxNorm: 0177626 Milliliter 02/28/2016 No longer Active Immunizations Vaccine [...] Code Item Item Code Result Date %Hba1C Sfd926 % HbA1c 16947-3 6.7 % 11/20/2017 %Hba1C Usz144 Gluc Ave 146 mg/dL 11/20/2017 Free T4 Fxe721 FREE T4 0.76 ng/dL 05/21/2017 Tsh Ord6 hTSH II 1.27 uIU/mL 05/21/2017 Comp Metabolic Ryj045 NA 140 mEq/L 05/21/2017 Comp Metabolic Hib206 K 3.9 mEq/L 05/21/2017 Comp Metabolic Djh988 CL 101 mEq/L 05/21/2017 Comp Metabolic Xgf437 CO2 28.0 mEq/L 05/21/2017 Comp Metabolic Pla944 ANION GAP 15 05/21/2017 Comp Metabolic Bwl422 GLUCOSE 155 mg/dL 05/21/2017 Comp Metabolic Xqk241 Creat 0.7 mg/dL 05/21/2017 Comp Metabolic Cbz998 eGFR 87 ml/min/1.73m2 05/21/2017 Comp Metabolic Mxw737 BUN 16 mg/dL 05/21/2017 Comp Metabolic Xvf047 B/C Ratio 21.6 Ratio 05/21/2017 Comp Metabolic Wwb858 CALCIUM 9.4 mg/dL 05/21/2017 Comp Metabolic Iwh844 ALK PHOS 132 U/L 05/21/2017 Comp Metabolic Ohz061 AST(SGOT) 16 U/L 05/21/2017 Comp Metabolic Zvr210 ALT(SGPT) 20 U/L 05/21/2017 Comp Metabolic Sql335 BILI T 0.4 mg/dL 05/21/2017 Comp Metabolic Oak808 ALBUMIN 4.0 g/dL 05/21/2017 Comp Metabolic Uhj701 TPRO 6.7 g/dL 05/21/2017 Comp Metabolic Iya757 GLOB 2.7 g/dL 05/21/2017 Comp Metabolic Wyo764 A/G Ratio 1.5 Ratio 05/21/2017 Comp Metabolic Dex238 Osmo 284 mOsmo 05/21/2017 Cbc With Differential [...] 28.9 pg 05/21/2017 Cbc With Differential Ord2 Crenshaw% 5.5 % 05/21/2017 Cbc With Differential Ord2 [...] 2.65 K/ul 05/21/2017 Cbc With Differential Ord2 Crenshaw ABS# 0.8 K/ul 05/21/2017 Cbc With Differential Ord2 Eos ABS# 0.1 K/ul 05/21/2017 Cbc With Differential Ord2 Baso ABS# 0.0 K/ul 05/21/2017 Estrogens Total 289068 ESTROGENS, TOTAL 54 pg/mL 05/24/2016 Magnesium Ord90 Mag 1.8 mg/dL 05/19/2016 Tsh Ord6 hTSH II 1.56 uIU/mL 05/19/2016 Progesterone Prog 0.03 ng/mL 05/19/2016 Comp Metabolic Try669 NA 136 mEq/L 05/19/2016 Comp Metabolic Zmg171 K 4.3 mEq/L 05/19/2016 Comp Metabolic Sto927 CL 100 mEq/L 05/19/2016 Comp Metabolic Qui636 CO2 28.0 mEq/L 05/19/2016 Comp Metabolic Epp948 ANION GAP 12 05/19/2016 Comp Metabolic Adj344 GLUCOSE 138 mg/dL 05/19/2016 Comp Metabolic Usn630 Creat 0.7 mg/dL 05/19/2016 Comp Metabolic Rbi447 eGFR 89 ml/min/1.73m2 05/19/2016 Comp Metabolic Zys164 BUN 15 mg/dL 05/19/2016 Comp Metabolic Lny156 B/C Ratio 20.5 Ratio 05/19/2016 Comp Metabolic Ufa146 CALCIUM 9.7 mg/dL 05/19/2016 Comp Metabolic Zcm411 ALK PHOS 106 U/L 05/19/2016 Comp Metabolic Kpu031 AST(SGOT) 21 U/L 05/19/2016 Comp Metabolic Hgf179 ALT(SGPT) 24 U/L 05/19/2016 Comp Metabolic Mko942 BILI T 0.4 mg/dL 05/19/2016 Comp Metabolic Wvt966 ALBUMIN 4.1 g/dL 05/19/2016 Comp Metabolic Gvj860 TPRO 7.1 g/dL 05/19/2016 Comp Metabolic Yku914 GLOB 3.0 g/dL 05/19/2016 Comp Metabolic Nlt425 A/G Ratio 1.4 Ratio 05/19/2016 Comp Metabolic Fsx492 Osmo 275 mOsmo 05/19/2016 Cbc With Differential [...] 86.5 fl 05/19/2016 Cbc With Differential Ord2 [place]shaw% 6.5 % 05/19/2016 Cbc With Differential Ord2 [...] 2.33 K/ul 05/19/2016 Cbc With Differential Ord2 [place] ABS# 0.6 K/ul 05/19/2016 Cbc With Differential Ord2 Eos ABS# 0.1 K/ul 05/19/2016 Cbc With Differential Ord2 Baso ABS# 0.0 K/ul 05/19/2016 C RAP A SC 4267344 Strep A Negative 02/28/2016 Tsh Ord6 hTSH [...] 26.2 pg 08/16/2015 Cbc With Differential Ord2 [place]shaw% 7.1 % 08/16/2015 Cbc With Differential Ord2 [...] 2.32 K/ul 08/16/2015 Cbc With Differential Ord2 [place]shaw ABS# 0.6 K/ul 08/16/2015 Cbc With Differential Ord2 Eos ABS# 0.1 K/ul 08/16/2015 Cbc With Differential Ord2 Baso ABS# 0.0 K/ul 08/16/2015 Cbc With Differential Ord2 New Analyzer Notice Please note new ref ranges starting 05-26-2015 due to implemntation of new five part differential hematolgy analyzer. 08/16/2015 Comp Metabolic Cxx923 NA 132 mEq/L 08/16/2015 Comp Metabolic Lqn651 K 3.6 mEq/L 08/16/2015 Comp Metabolic Rtw648 CL 99 mEq/L 08/16/2015 Comp Metabolic Uvt509 CO2 23.0 mEq/L 08/16/2015 Comp Metabolic Zgh057 ANION GAP 14 08/16/2015 Comp Metabolic Uek390 GLUCOSE 101 mg/dL 08/16/2015 Comp Metabolic Hzg684 Creat 0.7 mg/dL 08/16/2015 Comp Metabolic Wyu198 eGFR 100 ml/min/1.73m2 08/16/2015 Comp Metabolic Wvt433 BUN 10 mg/dL 08/16/2015 Comp Metabolic Jqk973 B/C Ratio 15.2 Ratio 08/16/2015 Comp Metabolic Wny465 CALCIUM 9.3 mg/dL 08/16/2015 Comp Metabolic Bbg749 ALK PHOS 100 U/L 08/16/2015 Comp Metabolic Eji729 AST(SGOT) 14 U/L 08/16/2015 Comp Metabolic Mnt712 ALT(SGPT) 11 U/L 08/16/2015 Comp Metabolic Lny090 BILI T 0.3 mg/dL 08/16/2015 Comp Metabolic Efe254 ALBUMIN 3.9 g/dL 08/16/2015 Comp Metabolic Ydh125 TPRO 7.1 g/dL 08/16/2015 Comp Metabolic Kju093 GLOB 3.2 g/dL 08/16/2015 Comp Metabolic Bka037 A/G Ratio 1.2 Ratio 08/16/2015 Comp Metabolic Phd660 Osmo 264 mOsmo 08/16/2015 Lipid Ord30 CHOL 209 mg/dL 12/03/2014 Lipid Ord30 HDL 42.0 mg/dl 12/03/2014 Lipid Ord30 TRIG 219 mg/dL 12/03/2014 Lipid Ord30 LDL 123 mg/dL 12/03/2014 Lipid Ord30 C/HDL 5.0 Ratio 12/03/2014 Comp Metabolic Vhz161 NA 132 mEq/L 12/03/2014 Comp Metabolic Jgo666 K 4.0 mEq/L 12/03/2014 Comp Metabolic Dma646 CL 101 mEq/L 12/03/2014 Comp Metabolic Djo905 CO2 22.0 mEq/L 12/03/2014 Comp Metabolic Jnw502 ANION GAP 13 12/03/2014 Comp Metabolic Imi098 GLUCOSE 123 mg/dL 12/03/2014 Comp Metabolic Tsh882 Creat 0.7 mg/dL 12/03/2014 Comp Metabolic Cjy845 eGFR 97 ml/min/1.73m2 12/03/2014 Comp Metabolic Pxb345 BUN 10 mg/dL 12/03/2014 Comp Metabolic Jju608 B/C Ratio 14.7 Ratio 12/03/2014 Comp Metabolic Xdd037 CALCIUM 9.2 mg/dL 12/03/2014 Comp Metabolic Yql329 ALK PHOS 88 U/L 12/03/2014 Comp Metabolic Lem847 AST(SGOT) 18 U/L 12/03/2014 Comp Metabolic Jgp589 ALT(SGPT) 17 U/L 12/03/2014 Comp Metabolic Uyo443 BILI T 0.5 mg/dL 12/03/2014 Comp Metabolic Llk349 ALBUMIN 3.9 g/dL 12/03/2014 Comp Metabolic Ewt033 TPRO 6.8 g/dL 12/03/2014 Comp Metabolic Cug360 GLOB 2.9 g/dL 12/03/2014 Comp Metabolic Mhg587 A/G Ratio 1.3 Ratio 12/03/2014 Comp Metabolic Als555 Osmo 265 mOsmo 12/03/2014 Tsh Ord6 hTSH II 1.13 uIU/mL 12/03/2014 D-Dimer D-DIMER 168 NG/ML 12/03/2014 D-Dimer [id number] COMMENT 12/03/2014 Cbc With Differential Ord2 WBC [...] Procedure Codes Date THER/PROPH/DIAG INJ SC/IM CPT-4: 40948 06/27/2017 ROCEPHIN, PER 250 MG CPT-4: J0696 06/27/2017 IMMUNIZATION ADMIN CPT -4: 83546 03/16/2017 FLU VAC NO PRSV 4 FLETCHER 3 YRS+ CPT-4: 49501 03/16/2017 Pneumococcal Polysaccharide Vaccine, 23-Valent, Ad CPT-4: 46745 03/16/2017 IMMUNIZATION ADMIN EACH ADD CPT-4: 80352 03/16/2017 TRIAMCINOLONE ACET INJ NOS CPT-4: J3301 01/11/2017 TRIAMCINOLONE ACET INJ NOS CPT-4: J3301 02/28/2016 Vital Signs Date Vital 04/24/2018 Blood Pressure 1: 128/74 Code : 8480-6 BMI: 37.8 Code : 67230-1 Heart Rate 1 : 107 bpm Height: 5'6" SpO2: 98% Weight: 234 lbs 04/17/2018 Blood Pressure 1: 120/64 Code : 8480-6 BMI: 37.8 Code : 33939-2 Heart Rate 1 : 84 bpm Height: 5'6" SpO2: 96% Weight: 234 lbs 03/14/2018 Blood Pressure 1: 140/82 Code : 8480-6 BMI: 37.8 Code : 04070-1 Heart Rate 1 : 85 bpm Height: 5'6" SpO2: 98% Weight: 234 lbs 02/27/2018 Blood Pressure 1: 142/68 Code : 8480-6 BMI: 36.5 Code : 46134-0 Heart Rate 1 : 84 bpm Height: 5'6" SpO2: 97% Weight: 226 lbs 12/19/2017 Blood Pressure 1: 130/86 Code : 8480-6 BMI: 35.7 Code : 98751-0 Heart Rate 1 : 94 bpm Height: 5'6" Weight: 221 lbs 12/04/2017 Blood Pressure 1: 138/78 Code : 8480-6 BMI: 36.6 Code : 47501-9 Heart Rate 1 : 94 bpm Height: 5'6" SpO2: 98% Weight: 227 lbs 11/20/2017 Weight: 233 lbs 09/10/2017 Blood Pressure 1: 132/86 Code : 8480-6 Heart Rate 1: 86 bpm Height: Weight: 08/14/2017 Blood Pressure 1: 120/74 Code : 8480-6 BMI: 33.9 Code : 00649-0 Heart Rate 1 : 92 bpm Height: 5'6" SpO2: 94% Weight: 210 lbs 07/31/2017 Blood Pressure 1: 140/80 Code : 8480-6 BMI: 33.9 Code : 87921-7 Heart Rate 1 : 96 bpm Height: 5'6" SpO2: 97% Weight: 210 lbs 06/27/2017 Blood Pressure 1: 128/80 Code : 8480-6 BMI: 33.9 Code : 33695-9 Heart Rate 1 : 85 bpm Height: [...] Code : 8480-6 BMI: 39.9 Code : 20789-4 Heart Rate 1 : 79 bpm Height: 5'6" SpO2: 97% Weight: 247 lbs 01/26/2017 Blood Pressure 1: 132/74 Code : 8480-6 BMI: 37.8 Code : 89114-8 Heart Rate 1 : 74 bpm Height: 5'6" SpO2: 97% Weight: 234 lbs 01/11/2017 Blood Pressure 1: 118/68 Code : 8480-6 BMI: 38.7 Code : 66208-1 Heart Rate 1 : 91 bpm Height: 5'6" SpO2: 96% Weight: 240 lbs 11/30/2016 Blood Pressure 1: 132/76 Code : 8480-6 BMI: 38.3 Code : 16974-2 Heart Rate 1 : 71 bpm Height: 5'6" SpO2: 92% Weight: 237 lbs 09/28/2016 Blood Pressure 1: 122/72 Code : 8480-6 BMI: 39.1 Code : 33733-5 Heart Rate 1 : 88 bpm Height: 5'6" SpO2: 94% Weight: 242 lbs 08/24/2016 Blood Pressure 1: 130/87 Code : 8480-6 BMI: 41.5 Code : 81474-7 Heart Rate 1 : 95 bpm Height: 5'6" Respiratory Rate: 16 bpm SpO2: 98% Temperature: 36.9 (C) / 98.5 (F ) Weight: 257 lbs 07/13/2016 Blood Pressure 1: 132/84 Code : 8480-6 BMI: 42.0 Code : 23410-5 Heart Rate 1 : 73 bpm Height: 5'6" SpO2: 97% Weight: 260 lbs 05/19/2016 Blood Pressure 1: 138/76 Code : 8480-6 BMI: 40.8 Code : 79602-3 Heart Rate 1 : 80 bpm Height: 5'6" SpO2: 98% Weight: 253 lbs 03/16/2016 Blood Pressure 1: 122/70 Code : 8480-6 BMI: 40.4 Code : 42764-1 Heart Rate 1 : 72 bpm Height: 5'6" SpO2: 98% Weight: 250 lbs 02/28/2016 Blood Pressure 1: 136/86 Code : 8480-6 BMI: 40.2 Code : 46476-7 Heart Rate 1 : 87 bpm Height: 5'6" SpO2: 96% Temperature: 36.3 (C) / 97.3 (F) Weight: 249 lbs 01/13/2016 Blood Pressure 1: 120/76 Code : 8480-6 BMI: 40.4 Code : 51541-8 Heart Rate 1 : 68 bpm Height: 5'6" SpO2: 97% Weight: 250 lbs 09/27/2015 Blood Pressure 1: 112/70 Code : 8480-6 BMI: 38.4 Code : 35712-1 Heart Rate 1 : 76 bpm Height: 5'6" SpO2: 98% Weight: 238 lbs 08/30/2015 Blood Pressure 1: 144/82 Code : 8480-6 BMI: 39.5 Code : 22911-7 Heart Rate 1 : 82 bpm Height: 5'6" SpO2: 97% Weight: 245 lbs 08/16/2015 Blood Pressure 1: 140/72 Code : 8480-6 BMI: 38.9 Code : 95496-4 Heart Rate 1 : 72 bpm Height: 5'6" SpO2: 97% Weight: 241 lbs 07/15/2015 Blood Pressure 1: 128/80 Code : 8480-6 BMI: 39.3 Code : 35025-3 Heart Rate 1 : 86 bpm Height: 5'6" SpO2: 98% Weight: 243 lbs 8 oz 06/16/2015 Blood Pressure 1: 146/86 Code : 8480-6 BMI: 39.6 Code : 50886-9 Heart Rate 1 : 76 bpm Height: 5'6" SpO2: 97% Weight: 245 lbs 8 oz 04/02/2015 Blood Pressure 1: 132/86 Code : 8480-6 BMI: 40.7 Code : 82843-1 Heart Rate 1 : 94 bpm Height: 5'6" SpO2: 98% Weight: 252 lbs 12/02/2014 Blood Pressure 1: 122/90 Code : 8480-6 BMI: 41.6 Code : 55228-4 Heart Rate 1 : 77 bpm Height: [...] data Encounters Encounter Performer Location Codes Date 48113 EST. PATIENT, LEVEL IV Diagnosis: Right upper quadrant pain[ICD10: R10.11] Diagnosis: Other chest pain[ICD10: R07.89] Petra Trejo MD, [facility] CPT-4 : 41560 04/24/2018 13702 EST. PATIENT, LEVEL III Diagnosis: Generalized anxiety disorder[ICD10: F41.1] Diagnosis: Major depressive disorder, recurrent, mild[ICD10: F33.0] Diagnosis: Essential (primary) hypertension[ICD10: I10] Diagnosis: Type 2 diabetes mellitus without complications[ICD10: E11.9] [facility] CPT-4: 19163 04/17/2018 48696 EST. PATIENT, LEVEL III Diagnosis: Localized edema[ICD10: R60.0] Diagnosis: Essential (primary) hypertension[ICD10: I10] [facility] CPT-4: 34609 03/14/2018 53769 EST. PATIENT, LEVEL III Diagnosis: Pain in left knee[ICD10: M25.562] Diagnosis: Other obesity due to excess calories[ICD10: E66.09] Diagnosis: Other insomnia[ICD10: G47.09] Diagnosis: Generalized anxiety disorder[ICD10: F41.1] [facility] CPT-4: 54364 02/27/2018 ([id number]) Miscellaneous no charge Diagnosis: Other obesity due to excess calories[ICD10: E66.09] [facility] CPT-4: 08273 12/19/2017 01526 EST. PATIENT, LEVEL III Diagnosis: Pain in right foot[ICD10: M79.671] Diagnosis: Pain in right ankle and joints of right foot[ICD10: M25.571] [facility] CPT-4: 62672 12/04/2017 45913 EST. PATIENT, LEVEL III Diagnosis: Pain in left knee[ICD10: M25.562] Diagnosis: Type 2 diabetes mellitus without complications[ICD10: E11.9] Diagnosis: Other obesity due to excess calories[ICD10: E66.09] Petra Trejo MD, [facility] CPT-4: 85669 11/20/2017 90769 EST. PATIENT, LEVEL III Diagnosis: Pain in left knee[ICD10: M25.562] Petra Trejo MD, [facility] CPT -4: 71193 09/10/2017 25404 EST. PATIENT, LEVEL III Diagnosis: Encounter for follow-up examination after completed treatment for conditions other than malignant neoplasm[ICD10: Z09] Diagnosis: Pain in left knee[ICD10: M25.562] Petra Trejo MD, [facility] CPT -4: 83356 08/14/2017 37600 EST. PATIENT, LEVEL III Diagnosis: Pain in left knee[ICD10: M25.562] Petra Trejo MD, [facility] CPT -4: 70432 07/31/2017 43221 EST. PATIENT, LEVEL III Diagnosis: Acute laryngopharyngitis[ICD10: J06.0] Diagnosis: Other allergic rhinitis[ICD10: J30.89] Petra Trejo MD, [facility] CPT-4: 38343 06/27/2017 79004 EST. PATIENT, LEVEL III Diagnosis: Ganglion, left hand[ICD10: M67.442] Diagnosis: Essential (primary) hypertension[ICD10: I10] Diagnosis: Generalized anxiety disorder[ICD10: F41.1] Diagnosis: Other insomnia[ICD10: G47.09] Petra Trejo MD, [facility] CPT-4 : 18073 05/29/2017 73787 EST. PATIENT, LEVEL III Diagnosis: Essential (primary) hypertension[ICD10: I10] Diagnosis: Palpitations[ICD10: R00.2] Diagnosis: Generalized anxiety disorder[ICD10: F41.1] Petra Trejo MD, [facility] CPT-4: 46243 05/21/2017 86877 EST. PATIENT, LEVEL III Diagnosis: Pain in right foot[ICD10: M79.671] Petra Trejo MD, [facility] CPT-4: 02812 04/20/2017 30907 EST. PATIENT, LEVEL IV Diagnosis: Other insomnia[ICD10: G47.09] Diagnosis: Other skin changes[ICD10: R23.8] Petra Trejo MD, [facility] CPT- 4: 83659 01/26/2017 95755 EST. PATIENT, LEVEL IV Diagnosis: Acute bronchitis due to other specified organisms[ICD10: J20.8] Petra Trejo MD, [facility] CPT-4: 97931 01/11/2017 ([id number]) 29695 EST. PATIENT, LEVEL IV Diagnosis: Essential (primary) hypertension[ICD10: I10] Diagnosis: Other insomnia[ICD10: G47.09] Diagnosis: Primary generalized (osteo)arthritis[ICD10: M15.0] Diagnosis: Other obesity due to excess calories[ICD10: E66.09] Claudette Trejo MD, [facility] CPT-4: 27604 11/30/2016 ([id number]) 68533 EST. PATIENT, LEVEL III Diagnosis: Other obesity due to excess calories[ICD10: E66.09] Diagnosis: Other insomnia[ICD10: G47.09] Diagnosis: Generalized anxiety disorder[ICD10: F41.1] Claudette Trejo MD, [facility] CPT-4: 68996 09/28/2016 ([id number]) 67846 EST. PATIENT, LEVEL IV Diagnosis: Generalized anxiety disorder[ICD10: F41.1] Diagnosis: Major depressive disorder, recurrent, mild[ICD10: F33.0] Diagnosis: Other obesity due to excess calories[ICD10: E66.09] Diagnosis: Other insomnia[ICD10: G47.09] Claudette Trejo MD, [facility] CPT-4: 53602 08/24/2016 ([id number]) 54892 EST. PATIENT, LEVEL III Diagnosis: Other obesity due to excess calories[ICD10: E66.09] Diagnosis: Major depressive disorder, recurrent, moderate[ICD10: F33.1] Diagnosis: Low back pain[ICD10: M54.5] Heidy Trejo MD, [facility] CPT- 4: 41142 07/13/2016 01758 EST. PATIENT, LEVEL IV Diagnosis: Other muscle spasm[ICD10: M62.838] Diagnosis: Generalized anxiety disorder[ICD10: F41.1] Diagnosis: Major depressive disorder, recurrent, moderate[ICD10: F33.1] Diagnosis: Other insomnia[ICD10: G47.09] Petra Trejo MD, [facility] CPT-4 : 69355 05/19/2016 ([id number]) 24567 EST. PATIENT, LEVEL III Diagnosis: Generalized anxiety disorder[ICD10: F41.1] Diagnosis: Major depressive disorder, recurrent, moderate[ICD10: F33.1] Heidy Trejo MD, [facility] CPT-4: 50351 03/16/2016 ([id number]) 94059 EST. PATIENT, LEVEL III Diagnosis: Streptococcal pharyngitis[ICD10: J02.0] Claudette Trejo MD, [facility] CPT-4: 27159 02/28/2016 ([id number]) 04938 EST. PATIENT, LEVEL III Diagnosis: Generalized anxiety disorder[ICD10: F41.1] Diagnosis: Other obesity due to excess calories[ICD10: E66.09] Heidy Trejo MD, [facility] CPT-4: 91918 01/13/2016 ([id number]) 62566 EST. PATIENT, LEVEL III Diagnosis: Generalized anxiety disorder[ICD10: F41.1] Diagnosis: Major depressive disorder, recurrent, unspecified[ICD10: F33.9] Heidy Trejo MD, [facility] CPT-4: 00253 09/27/2015 61556 EST. PATIENT, LEVEL IV Diagnosis: Chronic pain syndrome[ICD10: G89.4] Diagnosis: Other obesity due to excess calories[ICD10: E66.09] Diagnosis: Essential (primary) hypertension[ICD10: I10] Diagnosis: Generalized anxiety disorder[ICD10: F41.1] Diagnosis: Excessive and frequent menstruation with regular cycle[ICD10: N92.0] Diagnosis: Pain in right knee[ICD10: M25.561] Petra Trejo MD, [facility] CPT-4: 65807 08/30/2015 40124 EST. PATIENT, LEVEL IV Diagnosis: Palpitations[ICD10: R00.2] Diagnosis: Other obesity due to excess calories[ICD10: E66.09] Petra Trejo MD, [facility] CPT-4: 76762 08/16/2015 ([id number] 36690 EST. PATIENT, LEVEL IV Diagnosis: Pain in right knee[ICD10: M25.561] Diagnosis: Primary generalized (osteo)arthritis[ICD10: M15.0] Diagnosis: Acute maxillary sinusitis, unspecified[ICD10: J01.00] Heidy Trejo MD, [facility] CPT-4: 86792 07/15/2015 ([id number]) 20232 EST. PATIENT, LEVEL IV Diagnosis: Primary generalized (osteo)arthritis[ICD10: M15.0] Diagnosis: Restless legs syndrome[ICD10: G25.81] Diagnosis: Chronic pain syndrome[ICD10: G89.4] Heidy Trejo MD, [facility] CPT-4: 58337 06/16/2015 ([id number]) 07976 EST. 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 04/17/2018 [phone] [facility] ([facility]) Moderate 04/17/2018 Patient [...] edema. 03/14/2018 App[facility]ment: [phone] [facility] ([facility] min) Moderate 03/14/2018 Patient [...] to ortho 02/27/2018 Appointment: [facility]ivas [facility] ([facility] Complex 02/27/2018 Patient [...] not improve. 12/04/2017 Appointment: Petra Rivas WPtel[facility] [place] ([facility] min) Moderate 12/04/2017 Patient [...] control. 11/20/2017 Appointment: [facility] [facility] [place] (15 min) Moderate 11/20/2017 Patient Education: [...] not improve. 09/10/2017 Appointment: [facility] [phone] [facility] [place] (15 min) Moderate 09/10/2017 [...] improve. 08/14/2017 Appointment: [facility] [address] [facility] [place] (30 min) Complex 08/14/2017 Patient Education: Patient Medication Summary Completed 08/14/2017 App[facility]ment: [facility] [facility] [place] (15 min) Moderate 08/01/2017 Visit Plan: Knee pain - pt is to use RICE - Rest, Ice, Compression, Elevation - pt is to use crutches as directed - The pt is to use prn antiinflammatories to manage acute pain. The patient is to call the office if the pain is worsening or does not improve. 07/31/2017 Appointment: Pet[facility] Rivas [facility]Ptel[facility] [place] ([facility]) Complex 07/31/2017 Patient Education: Patient Medication Summary Completed 07/31/2017 Care Plan: X-RAY EXAM OF KNEE 3 LOINC : 09801-0 Pending 07/31/2017 Visit Plan: URI - Pt [...] allergy spray. 06/27/2017 Appointment: Petra Rivas WPtel[facility] [place] (15 min) Moderate 06/27/2017 Patient Education: Patient [...] Quinn 05/29/2017 Appointment: [facility] [phone] [facility] (15 min) Moderate 05/29/2017 Patient Education: Patient Medication Summary Completed 05/29/2017 Care Plan: Referral Order SNOMED-CT : [id number] Pending 05/29/2017 App[facility]ment: [facility] [phone] [facility] [place] (15 min) Moderate 05/28/2017 Visit Plan: [...] concerns. 05/21/2017 Appointment: [facility] [phone] [facility] [place] (15 min) Moderate 05/21/2017 Patient Education: Patient Medication Summary Completed 05/21/2017 Visit Plan: Right heel pain - will send RX, pt is to do stretches as directed - The pt is to use prn antiinflammatories to manage acute pain. The patient is to call the office if the pain is worsening or does not improve. 04/20/2017 Appointment: [facility] [phone] [facility] ([facility] min) Complex 04/20/2017 Patient Education: Patient Medication Summary Completed 04/20/2017 Appointment: Petra Rivas WPtel: [phone] [facility] (30 min) Complex 03/29/2017 Patient Education: Patient Medication Summary Completed 03/16/2017 Referral: Maycol Quijano Referral Initiated 02/08/2017 Care Plan: Referral Order SNOMED-CT : [id number] Pending 01/28/2017 Visit Plan: Insomnia - Pt [...] changes, questions, or concerns. 01/26/2017 Appointment: Petra Riavs WPtel: [facility] (30 min) Complex 01/26/2017 Patient Education: Patient [...] acutely worsen. 01/11/2017 Appointment: Petra Rivas WPtel: [facility] [place] (15 min) Moderate 01/11/2017 Patient [...] on use. 11/30/2016 Appointment: Claudette Savage WPtel: [address] [place], [place] [phone] (15 min) Moderate 11/30/2016 Patient Education: Patient Medication Summary Completed 11/30/2016 Patient Education: Obesity Completed 11/30/2016 Care Plan: BMI Above normal followup SELF-MGMT EDUC & TRAIN 1 PT Pending 2016 Visit Plan: Swtqfxq-pvjwpblfiu-bnmxzqwq with increase in cymbalta-no changes Insomnia-RX for belsomra provided and instructed on use Obesity-patient down 15#-no changes-continue diet/exercise-follow up in 2 months 09/28/2016 Appointment: Claudette Savage WPtel: [address] [place], [place] [phone] (15 min) Moderate 09/28/2016 Patient Education: Patient Medication Summary Completed 09/28/2016 Patient Education: Obesity Completed 09/28/2016 Care Plan: BMI Above normal followup SELF-MGMT EDUC & TRAIN 1 PT Pending 2016 Visit Plan: Qbdeeuh-foinckrnnl-xjwexlgh-increase cymbalta to 60mg daily. Increase xanax as [...] for insomnia/anxiety 08/24/2016 Appointment: Claudette Savage WPtel: [facility] [address] (15 min) Moderate 08/24/2016 Patient Education: [...] not improving. 07/13/2016 [facility]ment[phone] ([facility] min) Moderate 07/13/2016 Patient Education: [...] time insomnia. 05/19/2016 App[facility]ment: [phone] [facility] (30 min) Complex 05/19/2016 Patient [...] this patient. 03/16/2016 Appointment: Heidy Trejo WPtel: [facility] (15 min) Moderate 03/16/2016 Patient [...] the swab. 02/28/2016 Appointment: Claudette Savage WPtel: [phone] [phone] [place] (10 min) Simple 02/28/2016 Patient Education: [...] stop lexapro 01/13/2016 Appointment: Heidy Trejo WPtel: [facility] (15 min) Moderate 01/13/2016 Patient [...] 09/27/2015 Care Plan: Referral Order SNOMED-CT : [id number] Pending 08/31/2015 Visit Plan: Anxiety - the [...] pain symptoms. 07/15/2015 Appointment: Heidy Trejo WPtel: [address] [place], [place] [address] (15 min) Moderate 07/15/2015 Patient Education: Patient [...] vein clinic 04/02/2015 Appointment: [facility]el[phone] [phone] [place] (15 min) Moderate 04/02/2015 Patient Education: [...] Summary Completed 12/02/2014 Referral: Belle Hoffman WPtel: [facility] [place] [phone] they will call and set the appt with her Initiated Referral: Maycol Quijano Referral Initiated Referral: Belle Hoffman WPtel: [phone] Referral Initiated Referral: Jignesh Quinn [facility] Referral Initiated Instructions Comment . Hypertension - [...] she is to follow up with her casing man . Anxiety and Depression- the patient has [...] 1 mg at night for anxiety . Zuxshaa-fkuyhyeopc-yiaenqqh-increase cymbalta to 60mg daily. Increase xanax as [...] worsening or does not improve. BELSOMRA . Udvdjkg-bgxwivxrhj-bqlkzhtx with increase in cymbalta-no changes Insomnia-RX for [...]
[2018-07-24] MEDS ORDERED: IOHEXOL 350 MG/ML 100 ML (OMNIPAQUE 350) VIAL IV ONE (23:45)
[2018-07-24] MEDS ORDERED: NS 100 ML (IVPB) BAG IV ONE (23:45)
--- OUTSIDE RECORDS SUMMARY | 2018-07-24 23:46 | XMS REPORT | CCD ---
Author Author [place] Organization [facility] Address [address] [place] [address] Phone Care Team Providers Care [employer]ator Name Role Phone PP Unavailable CCM Unavailable Summary Purpose Interface Exchange Insurance Providers Payer name Policy type / Coverage type Covered libertarian ID Effective Begin Date Effective End Date [facility] Commercial Insurance [id number] Unknown Family history Brother Diagnosis Age At [...] Description Effective Dates Tobacco history SNOMED CT: 9326536 Quit less than 5 years ago 04/02/2015 Alcohol history Unknown occasionally drinks alcohol 04/02/2015 Marital status Unknown Manuel Vitale 12/02/2014 Number of children Unknown 3 12/02/2014 Allergies, Adverse Reactions, Alerts Substance Reaction Codes Entered Date Inactivated Date Status * NO KNOWN FOOD ALLERGIES Unknown 12/02/2014 No Inactive Date Active Penicillin Unknown 12/02/2014 No Inactive Date Active tramadol RxNorm: 77225 12/02/2014 No Inactive Date Active Past Medical History Illness Codes Condition Status Onset Date Resolved Date Essential (primary) hypertension ICD-9: 401.1 ICD-10: I10 [...] Dates Condition Status Essential (primary) hypertension ICD-9: 401.1 ICD-10: I10 [...] Start Date Stop Date Status Fill Instructions Zorvolex 35 mg capsule RxNorm: 6083687 TAKE 1 CAPSULE BY MOUTH THREE (3) TIMES DAILY 04/22/2018 08/19/2018 Active hydrochlorothiazide 25 mg tablet RxNorm: 646346 1 TABLET(S) PO DAILY 04/08/2018 07/06/2018 Active Zorvolex 35 mg capsule RxNorm: 1155075 TAKE 1 CAPSULE BY MOUTH THREE (3) TIMES DAILY 03/27/2018 04/21/2018 Inactive gabapentin 300 mg capsule RxNorm: 742892 1 CAPSULE(S) PO TID 04/14/2018 Inactive hydrochlorothiazide 25 mg tablet RxNorm: 221454 1 Tablet(s) PO daily 03/14/2018 04/07/2018 Inactive Cymbalta 60 mg capsule,delayed release RxNorm: 522625 1 Capsule(s) PO daily TAKE 1 CAPSULE BY MOUTH DAILY 02/27/20182019 Active Victoza 2-Marek 0.6 mg/0.1 mL (18 mg/3 mL) subcutaneous pen injector RxNorm: 996508 Milligram(s) INJECT 1.8 MG SUB-Q ONCE DAILY 02/27/2018 08/20/2019 Active qty sufficient Xanax 1 mg tablet RxNorm: 077266 1-2 Tablet(s) PO QHS as needed insomnia 02/27/2018 05/27/2018 Active atorvastatin 20 mg tablet RxNorm: 872439 1 Tablet(s) PO daily 02/27/2018 05/22/2019 Active Ambien 10 mg tablet RxNorm: 000993 1 Tablet(s) PO QHS as needed insomnia 02/27/2018 05/26/2018 Active Cymbalta 60 mg capsule,delayed release RxNorm: 054923 TAKE 1 CAPSULE BY MOUTH DAILY 02/27/2018 02/26/2018 Inactive gabapentin 300 mg capsule RxNorm: 013476 1 Capsule(s) PO TID 03/24/2018 Inactive meloxicam 7.5 mg tablet RxNorm: 554734 1 Tablet(s) PO daily 1 TABLET(S) PO DAILY 02/27/2018 04/14/2018 Inactive atorvastatin 20 mg tablet RxNorm: 942632 1 Tablet(s) PO daily 02/05/2018 02/26/2018 Inactive atorvastatin 20 mg tablet RxNorm: 186647 1 Tablet(s) PO daily 02/05/2018 02/04/2018 Inactive meloxicam 7.5 mg tablet RxNorm: 492503 1 TABLET(S) PO DAILY 02/26/2018 Inactive oxycodone 15 mg tablet RxNorm: 0405902 1 Tablet(s) PO QID as needed 01/07/2018 02/19/2018 Inactive lactulose 20 gram/30 mL oral solution RxNorm: 013643 15-30 Milliliter(s) PO BID as needed 12/31/2017 02/20/2018 Inactive meloxicam 7.5 mg tablet RxNorm: 758791 1 TABLET(S) PO DAILY 06/201701/31/2018 Inactive Zorvolex 35 mg capsule RxNorm: 4029672 1 Capsule(s) PO TID 06/201702/20/2018 Inactive Ambien 10 mg tablet RxNorm: 117693 1 Tablet(s) PO QHS as needed insomnia 12/04/2017 02/26/2018 Inactive oxycodone 15 mg tablet RxNorm: 6745082 1 Tablet(s) PO QID as needed 12/04/2017 01/06/2018 Inactive prednisone 20 mg tablet RxNorm: 303080 2 Tablet(s) PO daily 12/08/2017 Inactive Victoza 2-Marek 0.6 mg/0.1 mL (18 mg/3 mL) subcutaneous pen injector RxNorm: 224764 Milligram(s) INJECT 1.8 MG SUB-Q ONCE DAILY 11/20/2017 02/26/2018 Inactive meloxicam 7.5 mg tablet RxNorm: 378872 1 Tablet(s) PO daily 02/201812/12/2017 Inactive phentermine 37.5 mg tablet RxNorm: 123530 1 Tablet(s) PO daily 11/20/2017 12/19/2017 Inactive Ambien 10 mg tablet RxNorm: 720959 1 Tablet(s) PO QHS as needed insomnia 11/20/2017 12/18/2017 Inactive Xanax 1 mg tablet RxNorm: 558310 1.5 Tablet(s) PO QHS as needed insomnia 11/20/2017 02/26/2018 Inactive hydrocodone 7.5 mg-acetaminophen 325 mg tablet RxNorm: 150476 1 Tablet(s) PO TID as needed 11/16/2017 01/06/2018 Inactive Cymbalta 60 mg capsule,delayed release RxNorm: 753708 TAKE 1 CAPSULE BY MOUTH DAILY 11/02/2017 02/26/2018 Inactive Xanax 1 mg tablet RxNorm: 245762 1 Tablet(s) PO BID PRN as needed anxiety 10/04/2017 11/19/2017 Inactive Victoza 2-Marek 0.6 mg/0.1 mL (18 mg/3 mL) subcutaneous pen injector RxNorm: 669682 INJECT 1.8 MG SUB-Q ONCE DAILY 10/04/2017 11/19/2017 Inactive hydrocodone 7.5 mg-acetaminophen 325 mg tablet RxNorm: 153634 1 Tablet(s) PO TID as needed 09/17/2017 11/15/2017 Inactive hydrocodone 7.5 mg-acetaminophen 325 mg tablet RxNorm: 183741 1 Tablet(s) PO TID as needed 09/10/2017 09/16/2017 Inactive prednisone 10 mg tablet RxNorm: 996202 Tablet(s) PO 09/10/2017 11/13/2017 Inactive 6, 5,4,3,2,1 Zorvolex 35 mg capsule RxNorm: 7464794 1 Capsule(s) PO TID 11/13/2017 Inactive Ambien 10 mg tablet RxNorm: 145116 1 Tablet(s) PO QHS as needed insomnia 08/29/2017 11/19/2017 Inactive Zorvolex 35 mg capsule RxNorm: 2581105 1 Capsule(s) PO TID 09/06/2017 Inactive Zorvolex 35 mg capsule RxNorm: 6196882 1 Capsule(s) PO TID 06/201708/27/2017 Inactive Zorvolex 35 mg capsule RxNorm: 9097383 1 Capsule(s) PO TID 06/201708/12/2017 Inactive prednisone 20 mg tablet RxNorm: 399896 2 Tablet(s) PO daily 08/04/2017 Inactive hydrocodone 7.5 mg-acetaminophen 325 mg tablet RxNorm: 588015 1 Tablet(s) PO TID as needed 07/31/2017 09/09/2017 Inactive Zorvolex 35 mg capsule RxNorm: 2120967 1 Capsule(s) PO TID as needed 07/31/2017 11/13/2017 Inactive ceftriaxone 500 mg solution for injection RxNorm: 4340046 1 Milliliter(s) Inj 06/27/2017 06/27/2017 Inactive Keflex 500 mg capsule RxNorm: 098570 1 Capsule(s) PO TID 201707/03/2017 Inactive Ambien 10 mg tablet RxNorm: 094071 1 Tablet(s) PO daily 201708/25/2017 Inactive tramadol 50 mg tablet RxNorm: 819579 1 Tablet(s) PO TID as needed 05/29/2017 07/27/2017 Inactive Xanax 1 mg tablet RxNorm: 068740 1 Tablet(s) PO BID PRN as needed anxiety 05/21/2017 10/03/2017 Inactive alprazolam 1 mg tablet RxNorm: 623198 1 Tablet(s) PO BID as needed 05/21/2017 06/19/2017 Inactive Celebrex 200 mg capsule RxNorm: 259370 1 CAPSULE(S) PO BID 11/05/2017 Inactive prednisone 20 mg tablet RxNorm: 359847 2 Tablet(s) PO daily 12/201604/24/2017 Inactive Ambien 10 mg tablet RxNorm: 292829 Tablet(s) PO 04/20/2017 05/28/2017 Inactive hydrocodone 5 mg-acetaminophen 325 mg tablet RxNorm: 916092 1 Tablet(s) PO QID as needed 04/20/2017 08/01/2017 Inactive Cymbalta 60 mg capsule,delayed release RxNorm: 207574 1 Capsule(s) PO daily 04/20/2017 02/26/2018 Inactive Victoza 2-Marek 0.6 mg/0.1 mL (18 mg/3 mL) subcutaneous pen injector RxNorm: 092804 INJECT 1.8 MG SUB-Q ONCE DAILY 03/26/2017 09/21/2017 Inactive diazepam 2 mg tablet RxNorm: 771634 1 Tablet(s) PO QHS as needed insomnia 01/28/2017 05/07/2017 Inactive Victoza 2-Marek 0.6 mg/0.1 mL (18 mg/3 mL) subcutaneous pen injector RxNorm: 300390 1.8 Milligram(s) SQ daily 01/26/201703/25 Inactive dispense quantity sufficient Tussionex Pennkinetic ER 10 mg-8 mg/5 mL suspension, extended release RxNorm: 8971211 5 Milliliter(s) PO BID 01/11/2017 01/15/2017 Inactive Xanax 1 mg tablet RxNorm: 741359 1 Tablet(s) PO BID PRN as needed anxiety 01/11/2017 05/20/2017 Inactive Zithromax Z-Marek 250 mg tablet RxNorm: 211306 1 Tablet(s) PO UD 01/11/2017 01/15/2017 Inactive zpack albuterol sulfate 2.5 mg/3 mL (0.083 %) solution for nebulization RxNorm: 542283 3 Milliliter(s) INH UD 01/11/201707/2017 Inactive prednisone 20 mg tablet RxNorm: 163199 2 Tablet(s) PO daily 01/15/2017 Inactive Kenalog 40 mg/mL suspension for injection RxNorm: 8519159 1.5 Milliliter(s) Inj 01/11/2017 01/11/2017 Inactive Celebrex 200 mg capsule RxNorm: 918978 1 Capsule(s) PO BID 02/27/2017 Inactive Ambien 5 mg tablet RxNorm: 051313 1 Tablet(s) PO HS PRN 11/3008/07/2017 Inactive trazodone 50 mg tablet RxNorm: 359107 1/2 to 1 Tablet(s) PO QHS 10/13/2016 10/12/2016 Inactive trazodone 50 mg tablet RxNorm: 635028 1/2 to 1 Tablet(s) PO QHS 10/13/2016 11/29/2016 Inactive Belsomra 10 mg tablet RxNorm: 9016304 1 Tablet(s) PO QHS 201611/29/2016 Inactive may increase to 20mg if 10mg not effective Cymbalta 60 mg capsule,delayed release RxNorm: 940531 1 Capsule(s) PO daily 08/24/2016 03/21/2017 Inactive Xanax 1 mg tablet RxNorm: 407218 1 Tablet(s) PO BID PRN as needed anxiety 08/24/2016 01/10/2017 Inactive Victoza 2-Marek 0.6 mg/0.1 mL (18 mg/3 mL) subcutaneous pen injector RxNorm: 563639 Milligram(s) SQ 08/24/2016 08/23/2016 Inactive Victoza 2-Marek 0.6 mg/0.1 mL (18 mg/3 mL) subcutaneous pen injector RxNorm: 817649 1.8 Milligram(s) SQ 08/24/2016 01/25/2017 Inactive Vitamin D2 50,000 unit capsule RxNorm: 842546 1 Capsule(s) PO QW 07/13/2016 10/10/2016 Inactive Cymbalta 30 mg capsule,delayed release RxNorm: 765388 1 Capsule(s) PO daily 07/13/2016 08/23/2016 Inactive Belviq XR 20 mg tablet,extended release RxNorm: 6500683 1 Tablet(s) PO daily 05/30/2016 05/29/2016 Inactive prednisone 20 mg tablet RxNorm: 530178 2 Tablet(s) PO daily 06/03/2016 Inactive prednisone 20 mg tablet RxNorm: 513298 2 Tablet(s) PO daily 05/29/2016 Inactive Belviq XR 20 mg tablet,extended release RxNorm: 5198568 1 Tablet(s) PO daily 05/30/2016 06/28/2016 Inactive cyclobenzaprine 5 mg tablet RxNorm: 174104 1-2 Tablet(s) PO TID as needed 05/19/2016 05/23/2016 Inactive metoprolol succinate ER 25 mg tablet,extended release 24 hr RxNorm: 071463 1 Tablet(s) PO QPM 04/10/2016 04/13/2016 Inactive metoprolol succinate ER 25 mg tablet,extended release 24 hr RxNorm: 813341 1 Tablet(s) PO QPM 04/10/2016 04/09/2016 Inactive escitalopram 10 mg tablet RxNorm: 261349 1 Tablet(s) PO daily 03/16/2016 07/12/2016 Inactive estradiol 1 mg tablet RxNorm: 056429 1 Tablet(s) PO every other day 03/16/2016 05/15/2016 Inactive Kenalog 40 mg/mL suspension for injection RxNorm: 7247428 Milliliter(s) Inj 02/28/2016 02/28/2016 Inactive Zithromax Z-Marek 250 mg tablet RxNorm: 852008 1 Tablet(s) PO UD 02/28/2016 03/03/2016 Inactive zpack Lexapro 10 mg tablet RxNorm: 128505 1 Tablet(s) PO daily 201502/27/2016 Inactive Lexapro 10 mg tablet RxNorm: 422698 1 Tablet(s) PO daily 201509/26/2015 Inactive Vimovo 500 mg-20 mg tablet,immediate and delay release RxNorm: 736678 1 Tablet(s) PO BID as needed for pain 08/30/201509/25 Inactive azithromycin 250 mg tablet RxNorm: 894937 1 Tablet(s) PO UD 2 pills on day #1, then one pill daily x 4 days 07/15/2015 Inactive hydrocodone 10 mg-acetaminophen 325 mg tablet RxNorm: 928409 1 Tablet(s) PO QID 06/16/2015 01/12/2016 Inactive pramipexole 0.5 mg tablet RxNorm: 113804 1 Tablet(s) PO QPM 07/201507/14/2015 Inactive Celebrex 200 mg capsule RxNorm: 742466 1 Capsule(s) PO daily 05/02/2015 Inactive Celebrex 200 mg capsule RxNorm: 426636 1 Capsule(s) PO daily 01/12/2016 Inactive hydrocodone 7.5 mg-acetaminophen 325 mg tablet RxNorm: 629659 1 Tablet(s) PO Q6 PRN 05/03/2015 06/15/2015 Inactive Mobic 15 mg tablet RxNorm: 944595 1 Tablet(s) PO daily 201405/02/2015 Inactive hydrocodone 7.5 mg-acetaminophen 325 mg tablet RxNorm: 650353 1 Tablet(s) PO Q6 PRN 04/02/2015 05/02/2015 Inactive hydrocodone 5 mg-acetaminophen 325 mg tablet RxNorm: 433702 1 Tablet(s) PO Q6 as needed 12/11/2014 04/01/2015 Inactive Pennsaid 1.5 % topical drops RxNorm: 741076 40 Drop(s) TOP QID as needed 12/07/2014 02/04/2015 Inactive Apply 40 drops to each knee joint 4 times per day as needed for osteoarthritis pain estradiol 1 mg tablet RxNorm: 018480 1 Tablet(s) PO QHS No Start Date 03/15/2016 Inactive Xanax 0.5 mg tablet RxNorm: 076558 1 Tablet(s) PO Q6 as needed anxiety No Start Date 08/23/2016 Inactive Tylenol Extra Strength 500 mg tablet RxNorm: 652597 3 Tablet(s) PO BID after breakfast and after lunch No Start Date Inactive lactulose 20 gram/30 mL oral solution RxNorm: 286860 15-30 Milliliter(s) PO BID as needed No Start Date 12/30/2017 Inactive hydrocodone 5 mg-acetaminophen 325 mg tablet RxNorm: 098143 1 Tablet(s) PO Q6 as needed No Start Date 12/10/2014 Inactive Phenergan-Codeine syrup RxNorm: 5-10 Milliliter(s) PO QID as needed No Start Date 11/13/2017 Inactive ibuprofen 200 mg capsule RxNorm: 484602 4 Capsule(s) PO QID as needed No Start Date 04/01/2015 Inactive Medication Administered Medication Codes Instructions Start Date Status ceftriaxone 500 mg solution for injection RxNorm: 3175942 1Milliliter 06/27/2017 No longer Active Kenalog 40 mg/mL suspension for injection RxNorm: 1011259 1.5Milliliter 01/11/2017 No longer Active Kenalog 40 mg/mL suspension for injection RxNorm: 7013703 Milliliter 02/28/2016 No longer Active Immunizations Vaccine Codes Date Status Influenza CVX: 141 03/16/2017 completed Pneumococcal (Adult) CVX: 33 03/16/2017 completed Assessments Condition Codes Effective Dates Type 2 diabetes mellitus without complications ICD-10: [...] Visit Effective Dates Notes medication follow up 04/17/2018 edema 03/14/2018 weight [...] Code Item Item Code Result Date %Hba1C Tww194 % HbA1c 86242-4 6.7 % 11/20/2017 %Hba1C Isx121 Gluc Ave 146 mg/dL 11/20/2017 Free T4 Ezq088 FREE T4 0.76 ng/dL 05/21/2017 Tsh Ord6 hTSH II 1.27 uIU/mL 05/21/2017 Comp Metabolic Pib608 NA 140 mEq/L 05/21/2017 Comp Metabolic Pmm111 K 3.9 mEq/L 05/21/2017 Comp Metabolic Spd327 CL 101 mEq/L 05/21/2017 Comp Metabolic Pqs880 CO2 28.0 mEq/L 05/21/2017 Comp Metabolic Wmw906 ANION GAP 15 05/21/2017 Comp Metabolic Jdi676 GLUCOSE 155 mg/dL 05/21/2017 Comp Metabolic Vww364 Creat 0.7 mg/dL 05/21/2017 Comp Metabolic Znp950 eGFR 87 ml/min/1.73m2 05/21/2017 Comp Metabolic Lpo109 BUN 16 mg/dL 05/21/2017 Comp Metabolic Hma794 B/C Ratio 21.6 Ratio 05/21/2017 Comp Metabolic Liz933 CALCIUM 9.4 mg/dL 05/21/2017 Comp Metabolic Ibk525 ALK PHOS 132 U/L 05/21/2017 Comp Metabolic Itz919 AST(SGOT) 16 U/L 05/21/2017 Comp Metabolic Ejf954 ALT(SGPT) 20 U/L 05/21/2017 Comp Metabolic Gaz856 BILI T 0.4 mg/dL 05/21/2017 Comp Metabolic Okz282 ALBUMIN 4.0 g/dL 05/21/2017 Comp Metabolic Bfi861 TPRO 6.7 g/dL 05/21/2017 Comp Metabolic Tpf583 GLOB 2.7 g/dL 05/21/2017 Comp Metabolic Wce845 A/G Ratio 1.5 Ratio 05/21/2017 Comp Metabolic Pzc469 Osmo 284 mOsmo 05/21/2017 Cbc With Differential [...] 28.9 pg 05/21/2017 Cbc With Differential Ord2 Josephine% 5.5 % 05/21/2017 Cbc With Differential Ord2 [...] 2.65 K/ul 05/21/2017 Cbc With Differential Ord2 Josephine ABS# 0.8 K/ul 05/21/2017 Cbc With Differential Ord2 Eos ABS# 0.1 K/ul 05/21/2017 Cbc With Differential Ord2 Baso ABS# 0.0 K/ul 05/21/2017 Estrogens Total 669797 ESTROGENS, TOTAL 54 pg/mL 05/24/2016 Magnesium Ord90 Mag 1.8 mg/dL 05/19/2016 Tsh Ord6 hTSH II 1.56 uIU/mL 05/19/2016 Progesterone Prog 0.03 ng/mL 05/19/2016 Comp Metabolic Wak907 NA 136 mEq/L 05/19/2016 Comp Metabolic Fqv260 K 4.3 mEq/L 05/19/2016 Comp Metabolic Fcb264 CL 100 mEq/L 05/19/2016 Comp Metabolic Ykd500 CO2 28.0 mEq/L 05/19/2016 Comp Metabolic Ibo264 ANION GAP 12 05/19/2016 Comp Metabolic Ufg162 GLUCOSE 138 mg/dL 05/19/2016 Comp Metabolic Eey710 Creat 0.7 mg/dL 05/19/2016 Comp Metabolic Cgl483 eGFR 89 ml/min/1.73m2 05/19/2016 Comp Metabolic Hvg136 BUN 15 mg/dL 05/19/2016 Comp Metabolic Bjr071 B/C Ratio 20.5 Ratio 05/19/2016 Comp Metabolic Smk078 CALCIUM 9.7 mg/dL 05/19/2016 Comp Metabolic Ogm920 ALK PHOS 106 U/L 05/19/2016 Comp Metabolic Avz922 AST(SGOT) 21 U/L 05/19/2016 Comp Metabolic Wqj425 ALT(SGPT) 24 U/L 05/19/2016 Comp Metabolic Guj376 BILI T 0.4 mg/dL 05/19/2016 Comp Metabolic Khx385 ALBUMIN 4.1 g/dL 05/19/2016 Comp Metabolic Wjl178 TPRO 7.1 g/dL 05/19/2016 Comp Metabolic Ahi395 GLOB 3.0 g/dL 05/19/2016 Comp Metabolic Ejq921 A/G Ratio 1.4 Ratio 05/19/2016 Comp Metabolic Swd878 Osmo 275 mOsmo 05/19/2016 Cbc With Differential [...] 86.5 fl 05/19/2016 Cbc With Differential Ord2 Josephine% 6.5 % 05/19/2016 Cbc With Differential Ord2 [...] 2.33 K/ul 05/19/2016 Cbc With Differential Ord2 Josephine ABS# 0.6 K/ul 05/19/2016 Cbc With Differential Ord2 Eos ABS# 0.1 K/ul 05/19/2016 Cbc With Differential Ord2 Baso ABS# 0.0 K/ul 05/19/2016 C RAP A SC 5013533 Strep A Negative 02/28/2016 Tsh Ord6 hTSH [...] 26.2 pg 08/16/2015 Cbc With Differential Ord2 Josephine% 7.1 % 08/16/2015 Cbc With Differential Ord2 [...] 2.32 K/ul 08/16/2015 Cbc With Differential Ord2 Josephine ABS# 0.6 K/ul 08/16/2015 Cbc With Differential Ord2 Eos ABS# 0.1 K/ul 08/16/2015 Cbc With Differential Ord2 Baso ABS# 0.0 K/ul 08/16/2015 Cbc With Differential Ord2 New Analyzer Notice Please note new ref ranges starting 05-26-2015 due to implemntation of new five part differential hematolgy analyzer. 08/16/2015 Comp Metabolic Qds670 NA 132 mEq/L 08/16/2015 Comp Metabolic Qga052 K 3.6 mEq/L 08/16/2015 Comp Metabolic Woh009 CL 99 mEq/L 08/16/2015 Comp Metabolic Cvp309 CO2 23.0 mEq/L 08/16/2015 Comp Metabolic Agy032 ANION GAP 14 08/16/2015 Comp Metabolic Cyd215 GLUCOSE 101 mg/dL 08/16/2015 Comp Metabolic Pdp619 Creat 0.7 mg/dL 08/16/2015 Comp Metabolic Cjz129 eGFR 100 ml/min/1.73m2 08/16/2015 Comp Metabolic Jej584 BUN 10 mg/dL 08/16/2015 Comp Metabolic Cuj108 B/C Ratio 15.2 Ratio 08/16/2015 Comp Metabolic Rrt840 CALCIUM 9.3 mg/dL 08/16/2015 Comp Metabolic Agy271 ALK PHOS 100 U/L 08/16/2015 Comp Metabolic Vnr358 AST(SGOT) 14 U/L 08/16/2015 Comp Metabolic Llr515 ALT(SGPT) 11 U/L 08/16/2015 Comp Metabolic Kzs214 BILI T 0.3 mg/dL 08/16/2015 Comp Metabolic Dcv586 ALBUMIN 3.9 g/dL 08/16/2015 Comp Metabolic Mhe258 TPRO 7.1 g/dL 08/16/2015 Comp Metabolic Upp443 GLOB 3.2 g/dL 08/16/2015 Comp Metabolic Onf768 A/G Ratio 1.2 Ratio 08/16/2015 Comp Metabolic Qbp017 Osmo 264 mOsmo 08/16/2015 Lipid Ord30 CHOL 209 mg/dL 12/03/2014 Lipid Ord30 HDL 42.0 mg/dl 12/03/2014 Lipid Ord30 TRIG 219 mg/dL 12/03/2014 Lipid Ord30 LDL 123 mg/dL 12/03/2014 Lipid Ord30 C/HDL 5.0 Ratio 12/03/2014 Comp Metabolic Edh190 NA 132 mEq/L 12/03/2014 Comp Metabolic Qyh660 K 4.0 mEq/L 12/03/2014 Comp Metabolic Muk333 CL 101 mEq/L 12/03/2014 Comp Metabolic Arl401 CO2 22.0 mEq/L 12/03/2014 Comp Metabolic Pck703 ANION GAP 13 12/03/2014 Comp Metabolic Zsl426 GLUCOSE 123 mg/dL 12/03/2014 Comp Metabolic Bxn004 Creat 0.7 mg/dL 12/03/2014 Comp Metabolic Bpl772 eGFR 97 ml/min/1.73m2 12/03/2014 Comp Metabolic Iaz592 BUN 10 mg/dL 12/03/2014 Comp Metabolic Apl574 B/C Ratio 14.7 Ratio 12/03/2014 Comp Metabolic Dsv415 CALCIUM 9.2 mg/dL 12/03/2014 Comp Metabolic Pjf638 ALK PHOS 88 U/L 12/03/2014 Comp Metabolic Ztg723 AST(SGOT) 18 U/L 12/03/2014 Comp Metabolic Omz379 ALT(SGPT) 17 U/L 12/03/2014 Comp Metabolic Lwx086 BILI T 0.5 mg/dL 12/03/2014 Comp Metabolic Cvh242 ALBUMIN 3.9 g/dL 12/03/2014 Comp Metabolic Pnz254 TPRO 6.8 g/dL 12/03/2014 Comp Metabolic Svf957 GLOB 2.9 g/dL 12/03/2014 Comp Metabolic Kaf669 A/G Ratio 1.3 Ratio 12/03/2014 Comp Metabolic Asu552 Osmo 265 mOsmo 12/03/2014 Tsh Ord6 hTSH II 1.13 uIU/mL 12/03/2014 D-Dimer D-DIMER 168 NG/ML 12/03/2014 D-Dimer 147837 COMMENT 12/03/2014 Cbc With Differential Ord2 WBC [...] lips 12/02/2014 None Full Exam - General 1995 Ears/Nose/Throat lips/teeth/gingiva Overall: normal dentition 12/02/2014 None [...] Procedure Codes Date THER/PROPH/DIAG INJ SC/IM CPT-4: 55014 06/27/2017 ROCEPHIN, PER 250 MG CPT-4: J0696 06/27/2017 IMMUNIZATION ADMIN CPT -4: 03972 03/16/2017 FLU VAC NO PRSV 4 FLETCHER 3 YRS+ CPT-4: 60625 03/16/2017 Pneumococcal Polysaccharide Vaccine, 23-Valent, Ad CPT-4: 37558 03/16/2017 IMMUNIZATION ADMIN EACH ADD CPT-4: 14687 03/16/2017 TRIAMCINOLONE ACET INJ NOS CPT-4: J3301 01/11/2017 TRIAMCINOLONE ACET INJ NOS CPT-4: J3301 02/28/2016 Vital Signs Date Vital 04/17/2018 Blood Pressure 1: 120/64 Code : 8480-6 BMI: 37.8 Code : 76086-9 Heart Rate 1 : 84 bpm Height: 5'6" SpO2: 96% Weight: 234 lbs 03/14/2018 Blood Pressure 1: 140/82 Code : 8480-6 BMI: 37.8 Code : 07087-2 Heart Rate 1 : 85 bpm Height: 5'6" SpO2: 98% Weight: 234 lbs 02/27/2018 Blood Pressure 1: 142/68 Code : 8480-6 BMI: 36.5 Code : 49270-6 Heart Rate 1 : 84 bpm Height: 5'6" SpO2: 97% Weight: 226 lbs 12/19/2017 Blood Pressure 1: 130/86 Code : 8480-6 BMI: 35.7 Code : 43068-2 Heart Rate 1 : 94 bpm Height: 5'6" Weight: 221 lbs 12/04/2017 Blood Pressure 1: 138/78 Code : 8480-6 BMI: 36.6 Code : 10367-3 Heart Rate 1 : 94 bpm Height: 5'6" SpO2: 98% Weight: 227 lbs 11/20/2017 Weight: 233 lbs 09/10/2017 Blood Pressure 1: 132/86 Code : 8480-6 Heart Rate 1: 86 bpm Height: Weight: 08/14/2017 Blood Pressure 1: 120/74 Code : 8480-6 BMI: 33.9 Code : 42196-2 Heart Rate 1 : 92 bpm Height: 5'6" SpO2: 94% Weight: 210 lbs 07/31/2017 Blood Pressure 1: 140/80 Code : 8480-6 BMI: 33.9 Code : 67266-3 Heart Rate 1 : 96 bpm Height: 5'6" SpO2: 97% Weight: 210 lbs 06/27/2017 Blood Pressure 1: 128/80 Code : 8480-6 BMI: 33.9 Code : 73448-4 Heart Rate 1 : 85 bpm Height: [...] Code : 8480-6 BMI: 39.9 Code : 81883-9 Heart Rate 1 : 79 bpm Height: 5'6" SpO2: 97% Weight: 247 lbs 01/26/2017 Blood Pressure 1: 13274 Code : 8480-6 BMI: 37.8 Code : 07782-4 Heart Rate 1 : 74 bpm Height: 5'6" SpO2: 97% Weight: 234 lbs 01/11/2017 Blood Pressure 1: 118/68 Code : 8480-6 BMI: 38.7 Code : 16227-2 Heart Rate 1 : 91 bpm Height: 5'6" SpO2: 96% Weight: 240 lbs 11/30/2016 Blood Pressure 1: 132/76 Code : 8480-6 BMI: 38.3 Code : 49536-9 Heart Rate 1 : 71 bpm Height: 5'6" SpO2: 92% Weight: 237 lbs 09/28/2016 Blood Pressure 1: 122/72 Code : 8480-6 BMI: 39.1 Code : 53191-0 Heart Rate 1 : 88 bpm Height: 5'6" SpO2: 94% Weight: 242 lbs 08/24/2016 Blood Pressure 1: 130/87 Code : 8480-6 BMI: 41.5 Code : 91205-6 Heart Rate 1 : 95 bpm Height: 5'6" Respiratory Rate: 16 bpm SpO2: 98% Temperature: 36.9 (C) / 98.5 (F ) Weight: 257 lbs 07/13/2016 Blood Pressure 1: 132/84 Code : 8480-6 BMI: 42.0 Code : 77622-4 Heart Rate 1 : 73 bpm Height: 5'6" SpO2: 97% Weight: 260 lbs 05/19/2016 Blood Pressure 1: 138/76 Code : 8480-6 BMI: 40.8 Code : 96075-6 Heart Rate 1 : 80 bpm Height: 5'6" SpO2: 98% Weight: 253 lbs 03/16/2016 Blood Pressure 1: 122/70 Code : 8480-6 BMI: 40.4 Code : 42103-1 Heart Rate 1 : 72 bpm Height: 5'6" SpO2: 98% Weight: 250 lbs 02/28/2016 Blood Pressure 1: 136/86 Code : 8480-6 BMI: 40.2 Code : 55790-2 Heart Rate 1 : 87 bpm Height: 5'6" SpO2: 96% Temperature: 36.3 (C) / 97.3 (F) Weight: 249 lbs 01/13/2016 Blood Pressure 1: 120/76 Code : 8480-6 BMI: 40.4 Code : 95432-6 Heart Rate 1 : 68 bpm Height: 5'6" SpO2: 97% Weight: 250 lbs 09/27/2015 Blood Pressure 1: 112/70 Code : 8480-6 BMI: 38.4 Code : 35499-5 Heart Rate 1 : 76 bpm Height: 5'6" SpO2: 98% Weight: 238 lbs 08/30/2015 Blood Pressure 1: 144/82 Code : 8480-6 BMI: 39.5 Code : 55173-0 Heart Rate 1 : 82 bpm Height: 5'6" SpO2: 97% Weight: 245 lbs 08/16/2015 Blood Pressure 1: 140/72 Code : 8480-6 BMI: 38.9 Code : 82188-4 Heart Rate 1 : 72 bpm Height: 5'6" SpO2: 97% Weight: 241 lbs 07/15/2015 Blood Pressure 1: 128/80 Code : 8480-6 BMI: 39.3 Code : 79147-2 Heart Rate 1 : 86 bpm Height: 5'6" SpO2: 98% Weight: 243 lbs 8 oz 06/16/2015 Blood Pressure 1: 146/86 Code : 8480-6 BMI: 39.6 Code : 68529-3 Heart Rate 1 : 76 bpm Height: 5'6" SpO2: 97% Weight: 245 lbs 8 oz 04/02/2015 Blood Pressure 1: 132/86 Code : 8480-6 BMI: 40.7 Code : 12728-7 Heart Rate 1 : 94 bpm Height: 5'6" SpO2: 98% Weight: 252 lbs 12/02/2014 Blood Pressure 1: 122/90 Code : 8480-6 BMI: 41.6 Code : 37702-5 Heart Rate 1 : 77 bpm Height: 5'6" SpO2: 95% Weight: 258 lbs Functional Status No Functional Status data History of Present Illness Symptom Name Status Result Effective Date Notes Additional Comments medication use 04/17/2018 None Location [...] Codes Date EST. PATIENT, LEVEL III Diagnosis: Generalized anxiety disorder[ICD10: F41.1] Diagnosis: Major depressive disorder, recurrent, mild[ICD10: F33.0] Diagnosis: Essential (primary) hypertension[ICD10: I10] Diagnosis: Type 2 diabetes mellitus without complications[ICD10: E11.9] [facility] CPT-4: 05161 04/17/2018 [id number] EST. PATIENT, LEVEL III Diagnosis: Localized edema[ICD10: R60.0] Diagnosis: Essential (primary) hypertension[ICD10: I10] [facility] CPT-4: 13147 03/14/2018 [id number] EST. PATIENT, LEVEL III Diagnosis: Pain in left knee[ICD10: M25.562] Diagnosis: Other obesity due to excess calories[ICD10: E66.09] Diagnosis: Other insomnia[ICD10: G47.09] Diagnosis: Generalized anxiety disorder[ICD10: F41.1] Petra Trejo MD, [facility] CPT-4: 83770 02/27/2018 ([id number]) Miscellaneous no charge Diagnosis: Other obesity due to excess calories[ICD10: E66.09] Heidy Trejo MD, [facility] CPT-4: 85878 12/19/2017 36729 EST. PATIENT, LEVEL III Diagnosis: Pain in right foot[ICD10: M79.671] Diagnosis: Pain in right ankle and joints of right foot[ICD10: M25.571] Petra Trejo MD , [facility] CPT-4: 27644 12/04/2017 01104 EST. PATIENT, LEVEL III Diagnosis: Pain in left knee[ICD10: M25.562] Diagnosis: Type 2 diabetes mellitus without complications[ICD10: E11.9] Diagnosis: Other obesity due to excess calories[ICD10: E66.09] Petra Trejo MD, [facility] CPT-4: 18730 11/20/2017 22551 EST. PATIENT, LEVEL III Diagnosis: Pain in left knee[ICD10: M25.562] Petra Trejo MD, [facility] CPT -4: 90284 09/10/2017 57015 EST. PATIENT, LEVEL III Diagnosis: Encounter for follow-up examination after completed treatment for conditions other than malignant neoplasm[ICD10: Z09] Diagnosis: Pain in left knee[ICD10: M25.562] Petra Trejo MD, [facility] CPT -4: 03386 08/14/2017 90544 EST. PATIENT, LEVEL III Diagnosis: Pain in left knee[ICD10: M25.562] Petra Trejo MD, [facility] CPT -4: 44798 07/31/2017 65796 EST. PATIENT, LEVEL III Diagnosis: Acute laryngopharyngitis[ICD10: J06.0] Diagnosis: Other allergic rhinitis[ICD10: J30.89] Petra Trejo MD, [facility] CPT-4: 70016 06/27/2017 03742 EST. PATIENT, LEVEL III Diagnosis: Ganglion, left hand[ICD10: M67.442] Diagnosis: Essential (primary) hypertension[ICD10: I10] Diagnosis: Generalized anxiety disorder[ICD10: F41.1] Diagnosis: Other insomnia[ICD10: G47.09] Petra Trejo MD, [facility] CPT-4 : 64746 05/29/2017 53892 EST. PATIENT, LEVEL III Diagnosis: Essential (primary) hypertension[ICD10: I10] Diagnosis: Palpitations[ICD10: R00.2] Diagnosis: Generalized anxiety disorder[ICD10: F41.1] Petra Trejo MD, [facility] CPT-4: 92907 05/21/2017 26164 EST. PATIENT, LEVEL III Diagnosis: Pain in right foot[ICD10: M79.671] Petra Trejo MD, [facility] CPT-4: 74819 04/20/2017 32016 EST. PATIENT, LEVEL IV Diagnosis: Other insomnia[ICD10: G47.09] Diagnosis: Other skin changes[ICD10: R23.8] Petra Trejo MD, [facility] CPT- 4: 59591 01/26/2017 03733 EST. PATIENT, LEVEL IV Diagnosis: Acute bronchitis due to other specified organisms[ICD10: J20.8] Petra Trejo MD, [facility] CPT-4: 94697 01/11/2017 ([id number]) 38300 EST. PATIENT, LEVEL IV Diagnosis: Essential (primary) hypertension[ICD10: I10] Diagnosis: Other insomnia[ICD10: G47.09] Diagnosis: Primary generalized (osteo)arthritis[ICD10: M15.0] Diagnosis: Other obesity due to excess calories[ICD10: E66.09] Claudette Trejo MD, [facility] CPT-4: 91104 11/30/2016 ([id number]) 70506 EST. PATIENT, LEVEL III Diagnosis: Other obesity due to excess calories[ICD10: E66.09] Diagnosis: Other insomnia[ICD10: G47.09] Diagnosis: Generalized anxiety disorder[ICD10: F41.1] Claudette Trejo MD, [facility] CPT-4: 06791 09/28/2016 ([id number]) 59766 EST. PATIENT, LEVEL IV Diagnosis: Generalized anxiety disorder[ICD10: F41.1] Diagnosis: Major depressive disorder, recurrent, mild[ICD10: F33.0] Diagnosis: Other obesity due to excess calories[ICD10: E66.09] Diagnosis: Other insomnia[ICD10: G47.09] Claudette Trejo MD, [facility] CPT-4: 17190 08/24/2016 ([id number]) 88888 EST. PATIENT, LEVEL III Diagnosis: Other obesity due to excess calories[ICD10: E66.09] Diagnosis: Major depressive disorder, recurrent, moderate[ICD10: F33.1] Diagnosis: Low back pain[ICD10: M54.5] Heidy Trejo MD, [facility] CPT- 4: 41083 07/13/2016 07553 EST. PATIENT, LEVEL IV Diagnosis: Other muscle spasm[ICD10: M62.838] Diagnosis: Generalized anxiety disorder[ICD10: F41.1] Diagnosis: Major depressive disorder, recurrent, moderate[ICD10: F33.1] Diagnosis: Other insomnia[ICD10: G47.09] Petra Trejo MD, [facility] CPT-4 : 27308 05/19/2016 ([id number]) 85145 EST. PATIENT, LEVEL III Diagnosis: Generalized anxiety disorder[ICD10: F41.1] Diagnosis: Major depressive disorder, recurrent, moderate[ICD10: F33.1] Heidy Trejo MD, [facility] CPT-4: 02883 03/16/2016 ([id number]) 38890 EST. PATIENT, LEVEL III Diagnosis: Streptococcal pharyngitis[ICD10: J02.0] Claudette Trejo MD, [facility] CPT-4: 63760 02/28/2016 ([id number]) 07449 EST. PATIENT, LEVEL III Diagnosis: Generalized anxiety disorder[ICD10: F41.1] Diagnosis: Other obesity due to excess calories[ICD10: E66.09] Heidy Trejo MD, [facility] CPT-4: 26669 01/13/2016 ([id number]) 25526 EST. PATIENT, LEVEL III Diagnosis: Generalized anxiety disorder[ICD10: F41.1] Diagnosis: Major depressive disorder, recurrent, unspecified[ICD10: F33.9] Heidy Trejo MD, [facility] CPT-4: 49019 09/27/2015 04571 EST. PATIENT, LEVEL IV Diagnosis: Chronic pain syndrome[ICD10: G89.4] Diagnosis: Other obesity due to excess calories[ICD10: E66.09] Diagnosis: Essential (primary) hypertension[ICD10: I10] Diagnosis: Generalized anxiety disorder[ICD10: F41.1] Diagnosis: Excessive and frequent menstruation with regular cycle[ICD10: N92.0] Diagnosis: Pain in right knee[ICD10: M25.561] Petra Trejo MD, [facility] CPT-4: 63381 08/30/2015 41718 EST. PATIENT, LEVEL IV Diagnosis: Palpitations[ICD10: R00.2] Diagnosis: Other obesity due to excess calories[ICD10: E66.09] Petra Trejo MD, [facility] CPT-4: 78766 08/16/2015 ([id number]) 70294 EST. PATIENT, LEVEL IV Diagnosis: Pain in right knee[ICD10: M25.561] Diagnosis: Primary generalized (osteo)arthritis[ICD10: M15.0] Diagnosis: Acute maxillary sinusitis, unspecified[ICD10: J01.00] Heidy Trejo MD, [facility] CPT-4: 47390 07/15/2015 ([id number]) 33083 EST. PATIENT, LEVEL IV Diagnosis: Primary generalized (osteo)arthritis[ICD10: M15.0] Diagnosis: Restless legs syndrome[ICD10: G25.81] Diagnosis: Chronic pain syndrome[ICD10: G89.4] Heidy Trejo MD, [facility] CPT-4: 05582 06/16/2015 ([id number]) 85169 EST. PATIENT, LEVEL III Diagnosis: Primary generalized (osteo)arthritis[ICD10: M15.0] Diagnosis: Varicose veins of bilateral lower extremities with pain[ICD10: I83.813] Claudette Trejo MD, [facility] CPT-4: 90903 ([id number]) OFFICE VISIT, NEW - LEVEL 3 Diagnosis: Osteoarthritis[ICD9: 715.90] Diagnosis: ABNORMAL WEIGHT GAIN[ICD9: 783.1] Diagnosis: Superficial thrombophlebitis[ICD9: 451.9] [facility] CPT-4: 45388 12/02/2014 Plan of Care Planned Activity Notes [...] glucose control. 04/17/2018 Appointment: Petra Rivas WPtel: [address] [place], [place] [address] (15 min) Moderate 04/17/2018 Patient Education: Patient [...] peripheral edema. 03/14/2018 Appointment[facility] ([place] min) Moderate 03/14/2018 Patient Education: Patient [...] to ortho 02/27/2018 Appointment: Pet[facility] Rivas [facility]el: [facility] [place] (30 min) Complex 02/27/2018 Patient Education: Patient [...] not improve. 12/04/2017 Appointment: [facility]ivas [phone] [place] (15 min) Moderate 12/04/2017 Patient Education: Patient [...] glucose control. 11/20/2017 Appointment: Petra Rivas WPtel: [facility] [place] (15 min) Moderate 11/20/2017 Patient [...] does not improve. 09/10/2017 Appointment: Petra Rivastel: [facility] [place] [place] (15 min) Moderate 09/10/2017 Patient Education: [...] not improve. 08/14/2017 Appointment: Petra Rivas WPtel: [facility] [place] (30 min) Complex 08/14/2017 Patient Education: Patient Medication Summary Completed 08/14/2017 Appointment: Petra Rivas WPtel: [address] [place], [place] [phone] (15 [...] not improve. 07/31/2017 Appointment: Petra Rivas WPtel: [address] [place], [place] [phone] (30 min) Complex 07/31/2017 Patient Education: Patient Medication Summary Completed 07/31/2017 Care Plan: X-RAY EXAM OF KNEE 3 LOINC : 53344-0 Pending 07/31/2017 Visit Plan: URI - Pt [...] allergy spray. 06/27/2017 Appointment: Petra Rivas WPtel: [facility] (15 min) Moderate 06/27/2017 Patient Education: [...] Dr. Quinn 05/29/2017 Appointment: Petra Rivas WPtel: [facility] (15 min) Moderate 05/29/2017 Patient Education: Patient Medication Summary Completed 05/29/2017 Care Plan: Referral Order SNOMED-CT : [id number] Pending 05/29/2017 Appointment: Petra Rivas WPtel: [facility] (15 min) Moderate 05/28/2017 Visit Plan: [...] acute concerns. 05/21/2017 Appointment: [facility] Rivas [facility]Ptel: [facility] [place] (15 min) Moderate 05/21/2017 Patient Education: Patient Medication Summary Completed 05/21/2017 Visit Plan: Right heel pain - will send RX, pt is to do stretches as directed - The pt is to use prn antiinflammatories to manage acute pain. The patient is to call the office if the pain is worsening or does not improve. 04/20/2017 Appointment: Petra Rivas WPtel: [phone] [facility] (30 min) Complex 04/20/2017 Patient Education: Patient Medication Summary Completed 04/20/2017 Appointment: Petra Rivas WPtel: [facility] (30 min) Complex 03/29/2017 Patient Education: Patient Medication Summary Completed 03/16/2017 Referral: Maycol Quijano Referral Initiated 02/08/2017 Care Plan: Referral Order SNOMED-CT : [id number] Pending 01/28/2017 Visit Plan: Insomnia - Pt [...] or concerns. 01/26/2017 Appointment: Petra Rivas WPtel: [facility] (30 min) Complex 01/26/2017 Patient Education: [...] acutely worsen. 01/11/2017 Appointment: [facility] Rivas [facility]Ptel: [facility] [place] (15 min) Moderate 01/11/2017 Patient Education: Patient [...] on use. 11/30/2016 Appointment: Claudette Savage WPtel: [address] [place], [place] [phone] (15 min) Moderate 11/30/2016 Patient Education: Patient Medication Summary Completed 11/30/2016 Patient Education: Obesity Completed 11/30/2016 Care Plan: BMI Above normal followup SELF-MGMT EDUC & TRAIN 1 PT Pending 2016 Visit Plan: Mdbwsdz-gohykwoawu-jduddnac with increase in cymbalta-no changes Insomnia-RX for belsomra provided and instructed on use Obesity-patient down 15#-no changes-continue diet/exercise-follow up in 2 months 09/28/2016 Appointment: Claudette Savage WPtel: [address] [place], [place] [phone] (15 min) Moderate 09/28/2016 Patient Education: Patient Medication Summary Completed 09/28/2016 Patient Education: Obesity Completed 09/28/2016 Care Plan: BMI Above normal followup SELF-MGMT EDUC & TRAIN 1 PT Pending 2016 Visit Plan: Fnssayp-sssxmybxsz-wvlsuxbd-increase cymbalta to 60mg daily. Increase xanax as [...] for insomnia/anxiety 08/24/2016 Appointment: Claudette Savage [facility]el[phone] [phone] [place] (15 min) Moderate 08/24/2016 Patient Education: [...] not improving. 07/13/2016 Appointment: [phone] (15 min) Moderate 07/13/2016 Patient Education: Patient [...] time insomnia. 05/19/2016 Appointment: Pet[facility] Rivas [facility]Ptel: [phone] [place] [place] (30 min) Complex 05/19/2016 Patient Education: [...] patient. 03/16/2016 Appointment: Heidy Trejo WPtel: [phone] [phone] (15 min) Moderate 03/16/2016 Patient Education: [...] swab. 02/28/2016 Appointment: Claudette Savage WPtel: [phone] [phone] (10 min) Simple 02/28/2016 Patient Education: [...] stop lexapro 01/13/2016 Appointment: Heidy Trejo WPtel: [phone] [facility] (15 min) Moderate 01/13/2016 Patient Education: [...] 09/27/2015 Care Plan: Referral Order SNOMED-CT : [id number] Pending 08/31/2015 Visit Plan: Anxiety - the [...] show improvement. 07/15/2015 Appointment: Heidy Trejo WPtel: [address] [place], [place] [phone] (15 min) Moderate 07/15/2015 Patient Education: Patient [...] 04/02/2015 Appointment: Claudette Savage WPtel: [phone] [phone] [place] (15 min) Moderate 04/02/2015 Patient [...] Summary Completed 12/02/2014 Referral: Belle Hoffman WPtel: [facility] they will call and set the appt with her Initiated Referral: Maycol Quijano Referral Initiated Referral: Belle Hoffman WPtel: [facility] Referral Initiated [facility]: [facility] Referral Initiated Instructions Comment . Hypertension - [...] 1 mg at night for anxiety . Ryunems-htwsurpwlq-jvfosgow-increase cymbalta to 60mg daily. Increase xanax as [...] Daytime napping worsens night time insomnia. . URI - Pt advised to increase [...] 2 weeks for weight check. BELSOMRA . Kclmzdw-fyccskveba-nwfqwqzu with increase in cymbalta-no changes Insomnia-RX for [...] pt is to call for acute concerns. [employer] website contrave 1 pill nightly x 1 [...] - will refer to Dr. Hoffman . Right heel pain - will send RX, pt is to do stretches as directed - The pt is to use prn antiinflammatories to manage acute pain. The patient is to call the office if the pain is worsening or does not improve.
--- OUTSIDE RECORDS SUMMARY | 2018-07-24 23:49 | XMS REPORT | CCD ---
Author Author [place] Organization [facility] Address [address] [place] [address] Phone Care Team Providers Care Milliner Helper Name Role Phone PP Unavailable CCM Unavailable Summary Purpose Interface Exchange Insurance Providers Payer name Policy type / Coverage type Covered green party ID Effective Begin Date Effective End Date [facility] Commercial Insurance [id number] Unknown Family history Brother Diagnosis Age At [...] Description Effective Dates Tobacco history SNOMED CT: 9204092 Quit less than 5 years ago 04/02/2015 Alcohol history Unknown occasionally drinks alcohol 04/02/2015 Marital status Unknown Manuel Vitale 12/02/2014 Number of children Unknown 3 12/02/2014 Allergies, Adverse Reactions, Alerts Substance Reaction Codes Entered Date Inactivated Date Status * NO KNOWN FOOD ALLERGIES Unknown 12/02/2014 No Inactive Date Active Penicillin Unknown 12/02/2014 No Inactive Date Active tramadol RxNorm: 62553 12/02/2014 No Inactive Date Active Past Medical [...] Fill Instructions hydrochlorothiazide 25 mg tablet RxNorm: 943883 1 TABLET(S) PO DAILY 04/08/2018 07/06/2018 Active Zorvolex 35 mg capsule RxNorm: 9246826 TAKE 1 CAPSULE BY MOUTH THREE (3) TIMES DAILY 03/27/2018 04/25/2018 Active gabapentin 300 mg capsule RxNorm: 964741 1 CAPSULE(S) PO TID 04/14/2018 Inactive hydrochlorothiazide 25 mg tablet RxNorm: 318630 1 Tablet(s) PO daily 03/14/2018 04/07/2018 Inactive Cymbalta 60 mg capsule,delayed release RxNorm: 212334 1 Capsule(s) PO daily TAKE 1 CAPSULE BY MOUTH DAILY 02/27/20182019 Active Victoza 2-Marek 0.6 mg/0.1 mL (18 mg/3 mL) subcutaneous pen injector RxNorm: 376052 Milligram(s) INJECT 1.8 MG SUB-Q ONCE DAILY 02/27/2018 08/20/2019 Active qty sufficient Xanax 1 mg tablet RxNorm: 404066 1-2 Tablet(s) PO QHS as needed insomnia 02/27/2018 05/27/2018 Active atorvastatin 20 mg tablet RxNorm: 213740 1 Tablet(s) PO daily 02/27/2018 05/22/2019 Active Ambien 10 mg tablet RxNorm: 632554 1 Tablet(s) PO QHS as needed insomnia 02/27/2018 05/26/2018 Active Cymbalta 60 mg capsule,delayed release RxNorm: 776903 TAKE 1 CAPSULE BY MOUTH DAILY 02/27/2018 02/26/2018 Inactive gabapentin 300 mg capsule RxNorm: 173678 1 Capsule(s) PO TID 03/24/2018 Inactive meloxicam 7.5 mg tablet RxNorm: 784911 1 Tablet(s) PO daily 1 TABLET(S) PO DAILY 02/27/2018 04/14/2018 Inactive atorvastatin 20 mg tablet RxNorm: 179855 1 Tablet(s) PO daily 02/05/2018 02/26/2018 Inactive atorvastatin 20 mg tablet RxNorm: 986865 1 Tablet(s) PO daily 02/05/2018 02/04/2018 Inactive meloxicam 7.5 mg tablet RxNorm: 302718 1 TABLET(S) PO DAILY 02/26/2018 Inactive oxycodone 15 mg tablet RxNorm: 7145247 1 Tablet(s) PO QID as needed 01/07/2018 02/19/2018 Inactive lactulose 20 gram/30 mL oral solution RxNorm: 757729 15-30 Milliliter(s) PO BID as needed 12/31/2017 02/20/2018 Inactive meloxicam 7.5 mg tablet RxNorm: 351783 1 TABLET(S) PO DAILY 06/201701/31/2018 Inactive Zorvolex 35 mg capsule RxNorm: 2906374 1 Capsule(s) PO TID 06/201702/20/2018 Inactive Ambien 10 mg tablet RxNorm: 125863 1 Tablet(s) PO QHS as needed insomnia 12/04/2017 02/26/2018 Inactive oxycodone 15 mg tablet RxNorm: 9221962 1 Tablet(s) PO QID as needed 12/04/2017 01/06/2018 Inactive prednisone 20 mg tablet RxNorm: 468635 2 Tablet(s) PO daily 12/08/2017 Inactive Victoza 2-Marek 0.6 mg/0.1 mL (18 mg/3 mL) subcutaneous pen injector RxNorm: 610293 Milligram(s) INJECT 1.8 MG SUB-Q ONCE DAILY 11/20/2017 02/26/2018 Inactive meloxicam 7.5 mg tablet RxNorm: 366961 1 Tablet(s) PO daily 02/201812/12/2017 Inactive phentermine 37.5 mg tablet RxNorm: 637541 1 Tablet(s) PO daily 11/20/2017 12/19/2017 Inactive Ambien 10 mg tablet RxNorm: 536045 1 Tablet(s) PO QHS as needed insomnia 11/20/2017 12/18/2017 Inactive Xanax 1 mg tablet RxNorm: 324146 1.5 Tablet(s) PO QHS as needed insomnia 11/20/2017 02/26/2018 Inactive hydrocodone 7.5 mg-acetaminophen 325 mg tablet RxNorm: 429954 1 Tablet(s) PO TID as needed 11/16/2017 01/06/2018 Inactive Cymbalta 60 mg capsule,delayed release RxNorm: 309083 TAKE 1 CAPSULE BY MOUTH DAILY 11/02/2017 02/26/2018 Inactive Xanax 1 mg tablet RxNorm: 825290 1 Tablet(s) PO BID PRN as needed anxiety 10/04/2017 11/19/2017 Inactive Victoza 2-Marek 0.6 mg/0.1 mL (18 mg/3 mL) subcutaneous pen injector RxNorm: 091126 INJECT 1.8 MG SUB-Q ONCE DAILY 10/04/2017 11/19/2017 Inactive hydrocodone 7.5 mg-acetaminophen 325 mg tablet RxNorm: 355597 1 Tablet(s) PO TID as needed 09/17/2017 11/15/2017 Inactive hydrocodone 7.5 mg-acetaminophen 325 mg tablet RxNorm: 273346 1 Tablet(s) PO TID as needed 09/10/2017 09/16/2017 Inactive prednisone 10 mg tablet RxNorm: 420605 Tablet(s) PO 09/10/2017 11/13/2017 Inactive 6, 5,4,3,2,1 Zorvolex 35 mg capsule RxNorm: 2115931 1 Capsule(s) PO TID 11/13/2017 Inactive Ambien 10 mg tablet RxNorm: 709640 1 Tablet(s) PO QHS as needed insomnia 08/29/2017 11/19/2017 Inactive Zorvolex 35 mg capsule RxNorm: 3786084 1 Capsule(s) PO TID 09/06/2017 Inactive Zorvolex 35 mg capsule RxNorm: 9284160 1 Capsule(s) PO TID 06/201708/27/2017 Inactive Zorvolex 35 mg capsule RxNorm: 9770961 1 Capsule(s) PO TID 06/201708/12/2017 Inactive prednisone 20 mg tablet RxNorm: 649464 2 Tablet(s) PO daily 08/04/2017 Inactive hydrocodone 7.5 mg-acetaminophen 325 mg tablet RxNorm: 048244 1 Tablet(s) PO TID as needed 07/31/2017 09/09/2017 Inactive Zorvolex 35 mg capsule RxNorm: 3059494 1 Capsule(s) PO TID as needed 07/31/2017 11/13/2017 Inactive ceftriaxone 500 mg solution for injection RxNorm: 7440571 1 Milliliter(s) Inj 06/27/2017 06/27/2017 Inactive Keflex 500 mg capsule RxNorm: 373818 1 Capsule(s) PO TID 201707/03/2017 Inactive Ambien 10 mg tablet RxNorm: 502477 1 Tablet(s) PO daily 201708/25/2017 Inactive tramadol 50 mg tablet RxNorm: 266992 1 Tablet(s) PO TID as needed 05/29/2017 07/27/2017 Inactive Xanax 1 mg tablet RxNorm: 574729 1 Tablet(s) PO BID PRN as needed anxiety 05/21/2017 10/03/2017 Inactive alprazolam 1 mg tablet RxNorm: 040567 1 Tablet(s) PO BID as needed 05/21/2017 06/19/2017 Inactive Celebrex 200 mg capsule RxNorm: 834987 1 CAPSULE(S) PO BID 11/05/2017 Inactive prednisone 20 mg tablet RxNorm: 559957 2 Tablet(s) PO daily 12/201604/24/2017 Inactive Ambien 10 mg tablet RxNorm: 203150 Tablet(s) PO 04/20/2017 05/28/2017 Inactive hydrocodone 5 mg-acetaminophen 325 mg tablet RxNorm: 707606 1 Tablet(s) PO QID as needed 04/20/2017 08/01/2017 Inactive Cymbalta 60 mg capsule,delayed release RxNorm: 416393 1 Capsule(s) PO daily 04/20/2017 02/26/2018 Inactive Victoza 2-Marek 0.6 mg/0.1 mL (18 mg/3 mL) subcutaneous pen injector RxNorm: 113526 INJECT 1.8 MG SUB-Q ONCE DAILY 03/26/2017 09/21/2017 Inactive diazepam 2 mg tablet RxNorm: 810513 1 Tablet(s) PO QHS as needed insomnia 01/28/2017 05/07/2017 Inactive Victoza 2-Marek 0.6 mg/0.1 mL (18 mg/3 mL) subcutaneous pen injector RxNorm: 473977 1.8 Milligram(s) SQ daily 01/26/201703/25 Inactive dispense quantity sufficient Tussionex Pennkinetic ER 10 mg-8 mg/5 mL suspension, extended release RxNorm: 9615924 5 Milliliter(s) PO BID 01/11/2017 01/15/2017 Inactive Xanax 1 mg tablet RxNorm: 230871 1 Tablet(s) PO BID PRN as needed anxiety 01/11/2017 05/20/2017 Inactive Zithromax Z-Marek 250 mg tablet RxNorm: 534037 1 Tablet(s) PO UD 01/11/2017 01/15/2017 Inactive zpack albuterol sulfate 2.5 mg/3 mL (0.083 %) solution for nebulization RxNorm: 595712 3 Milliliter(s) INH UD 01/11/201707/2017 Inactive prednisone 20 mg tablet RxNorm: 524787 2 Tablet(s) PO daily 01/15/2017 Inactive Kenalog 40 mg/mL suspension for injection RxNorm: 3719803 1.5 Milliliter(s) Inj 01/11/2017 01/11/2017 Inactive Celebrex 200 mg capsule RxNorm: 578424 1 Capsule(s) PO BID 02/27/2017 Inactive Ambien 5 mg tablet RxNorm: 345583 1 Tablet(s) PO HS PRN 11/3008/07/2017 Inactive trazodone 50 mg tablet RxNorm: 285338 1/2 to 1 Tablet(s) PO QHS 10/13/2016 10/12/2016 Inactive trazodone 50 mg tablet RxNorm: 645712 1/2 to 1 Tablet(s) PO QHS 10/13/2016 11/29/2016 Inactive Belsomra 10 mg tablet RxNorm: 2551563 1 Tablet(s) PO QHS 201611/29/2016 Inactive may increase to 20mg if 10mg not effective Cymbalta 60 mg capsule,delayed release RxNorm: 467753 1 Capsule(s) PO daily 08/24/2016 03/21/2017 Inactive Xanax 1 mg tablet RxNorm: 709339 1 Tablet(s) PO BID PRN as needed anxiety 08/24/2016 01/10/2017 Inactive Victoza 2-Marek 0.6 mg/0.1 mL (18 mg/3 mL) subcutaneous pen injector RxNorm: 131088 Milligram(s) SQ 08/24/2016 08/23/2016 Inactive Victoza 2-Marek 0.6 mg/0.1 mL (18 mg/3 mL) subcutaneous pen injector RxNorm: 785199 1.8 Milligram(s) SQ 08/24/2016 01/25/2017 Inactive Vitamin D2 50,000 unit capsule RxNorm: 974298 1 Capsule(s) PO QW 07/13/2016 10/10/2016 Inactive Cymbalta 30 mg capsule,delayed release RxNorm: 577059 1 Capsule(s) PO daily 07/13/2016 08/23/2016 Inactive Belviq XR 20 mg tablet,extended release RxNorm: 6238712 1 Tablet(s) PO daily 05/30/2016 05/29/2016 Inactive prednisone 20 mg tablet RxNorm: 030911 2 Tablet(s) PO daily 06/03/2016 Inactive prednisone 20 mg tablet RxNorm: 041526 2 Tablet(s) PO daily 05/29/2016 Inactive Belviq XR 20 mg tablet,extended release RxNorm: 3509178 1 Tablet(s) PO daily 05/30/2016 06/28/2016 Inactive cyclobenzaprine 5 mg tablet RxNorm: 038606 1-2 Tablet(s) PO TID as needed 05/19/2016 05/23/2016 Inactive metoprolol succinate ER 25 mg tablet,extended release 24 hr RxNorm: 095599 1 Tablet(s) PO QPM 04/10/2016 04/13/2016 Inactive metoprolol succinate ER 25 mg tablet,extended release 24 hr RxNorm: 368685 1 Tablet(s) PO QPM 04/10/2016 04/09/2016 Inactive escitalopram 10 mg tablet RxNorm: 427695 1 Tablet(s) PO daily 03/16/2016 07/12/2016 Inactive estradiol 1 mg tablet RxNorm: 224538 1 Tablet(s) PO every other day 03/16/2016 05/15/2016 Inactive Kenalog 40 mg/mL suspension for injection RxNorm: 1120976 Milliliter(s) Inj 02/28/2016 02/28/2016 Inactive Zithromax Z-Marek 250 mg tablet RxNorm: 344173 1 Tablet(s) PO UD 02/28/2016 03/03/2016 Inactive zpack Lexapro 10 mg tablet RxNorm: 114941 1 Tablet(s) PO daily 201502/27/2016 Inactive Lexapro 10 mg tablet RxNorm: 361663 1 Tablet(s) PO daily 201509/26/2015 Inactive Vimovo 500 mg-20 mg tablet,immediate and delay release RxNorm: 276455 1 Tablet(s) PO BID as needed for pain 08/30/201509/25 Inactive azithromycin 250 mg tablet RxNorm: 077877 1 Tablet(s) PO UD 2 pills on day #1, then one pill daily x 4 days 07/15/2015 Inactive hydrocodone 10 mg-acetaminophen 325 mg tablet RxNorm: 834518 1 Tablet(s) PO QID 06/16/2015 01/12/2016 Inactive pramipexole 0.5 mg tablet RxNorm: 826542 1 Tablet(s) PO QPM 07/201507/14/2015 Inactive Celebrex 200 mg capsule RxNorm: 869034 1 Capsule(s) PO daily 05/02/2015 Inactive Celebrex 200 mg capsule RxNorm: 661327 1 Capsule(s) PO daily 01/12/2016 Inactive hydrocodone 7.5 mg-acetaminophen 325 mg tablet RxNorm: 476884 1 Tablet(s) PO Q6 PRN 05/03/2015 06/15/2015 Inactive Mobic 15 mg tablet RxNorm: 530143 1 Tablet(s) PO daily 201405/02/2015 Inactive hydrocodone 7.5 mg-acetaminophen 325 mg tablet RxNorm: 328240 1 Tablet(s) PO Q6 PRN 04/02/2015 05/02/2015 Inactive hydrocodone 5 mg-acetaminophen 325 mg tablet RxNorm: 018595 1 Tablet(s) PO Q6 as needed 12/11/2014 04/01/2015 Inactive Pennsaid 1.5 % topical drops RxNorm: 262580 40 Drop(s) TOP QID as needed 12/07/2014 02/04/2015 Inactive Apply 40 drops to each knee joint 4 times per day as needed for osteoarthritis pain estradiol 1 mg tablet RxNorm: 225055 1 Tablet(s) PO QHS No Start Date 03/15/2016 Inactive Xanax 0.5 mg tablet RxNorm: 408887 1 Tablet(s) PO Q6 as needed anxiety No Start Date 08/23/2016 Inactive Tylenol Extra Strength 500 mg tablet RxNorm: 955271 3 Tablet(s) PO BID after breakfast and after lunch No Start Date Inactive lactulose 20 gram/30 mL oral solution RxNorm: 944079 15-30 Milliliter(s) PO BID as needed No Start Date 12/30/2017 Inactive hydrocodone 5 mg-acetaminophen 325 mg tablet RxNorm: 416057 1 Tablet(s) PO Q6 as needed No Start Date 12/10/2014 Inactive Phenergan-Codeine syrup RxNorm: 5-10 Milliliter(s) PO QID as needed No Start Date 11/13/2017 Inactive ibuprofen 200 mg capsule RxNorm: 675598 4 Capsule(s) PO QID as needed No Start Date 04/01/2015 Inactive Medication Administered Medication Codes Instructions Start Date Status ceftriaxone 500 mg solution for injection RxNorm: 7639347 1Milliliter 06/27/2017 No longer Active Kenalog 40 mg/mL suspension for injection RxNorm: 2031314 1.5Milliliter 01/11/2017 No longer Active Kenalog 40 mg/mL suspension for injection RxNorm: 8116247 Milliliter 02/28/2016 No longer Active Immunizations Vaccine [...] Code Item Item Code Result Date %Hba1C Whg541 % HbA1c 49465-5 6.7 % 11/20/2017 %Hba1C Zbd999 Gluc Ave 146 mg/dL 11/20/2017 Tsh Ord6 hTSH II 1.27 uIU/mL 05/21/2017 Comp Metabolic Gyl665 NA 140 mEq/L 05/21/2017 Comp Metabolic Wna126 K 3.9 mEq/L 05/21/2017 Comp Metabolic Ltm284 CL 101 mEq/L 05/21/2017 Comp Metabolic Amh225 CO2 28.0 mEq/L 05/21/2017 Comp Metabolic Qtn742 ANION GAP 15 05/21/2017 Comp Metabolic Hhv257 GLUCOSE 155 mg/dL 05/21/2017 Comp Metabolic Mvm622 Creat 0.7 mg/dL 05/21/2017 Comp Metabolic Jsi678 eGFR 87 ml/min/1.73m2 05/21/2017 Comp Metabolic Wcu731 BUN 16 mg/dL 05/21/2017 Comp Metabolic Iyw273 B/C Ratio 21.6 Ratio 05/21/2017 Comp Metabolic Szv342 CALCIUM 9.4 mg/dL 05/21/2017 Comp Metabolic Iop170 ALK PHOS 132 U/L 05/21/2017 Comp Metabolic Jlw945 AST(SGOT) 16 U/L 05/21/2017 Comp Metabolic Rnn915 ALT(SGPT) 20 U/L 05/21/2017 Comp Metabolic Qmx435 BILI T 0.4 mg/dL 05/21/2017 Comp Metabolic Jnu337 ALBUMIN 4.0 g/dL 05/21/2017 Comp Metabolic Tbh467 TPRO 6.7 g/dL 05/21/2017 Comp Metabolic Gtn190 GLOB 2.7 g/dL 05/21/2017 Comp Metabolic Dtq809 A/G Ratio 1.5 Ratio 05/21/2017 Comp Metabolic Etv711 Osmo 284 mOsmo 05/21/2017 Cbc With Differential Ord2 WBC 14.12 K/ul 05/21/2017 Cbc With Differential Ord2 RBC 5.29 M/ul 05/21/2017 Cbc With Differential Ord2 HGB 15.3 g/dl 05/21/2017 Cbc With Differential Ord2 Neut% 74.9 % 05/21/2017 Cbc With Differential Ord2 HCT 46.4 % 05/21/2017 Cbc With Differential Ord2 Lymph% 18.8 % 05/21/2017 Cbc With Differential Ord2 MCV 87.7 fl 05/21/2017 Cbc With Differential Ord2 MCH 28.9 pg 05/21/2017 Cbc With Differential Ord2 [place]% 5.5 % 05/21/2017 Cbc With Differential Ord2 [...] 2.65 K/ul 05/21/2017 Cbc With Differential Ord2 [place] ABS# 0.8 K/ul 05/21/2017 Cbc With Differential Ord2 Eos ABS# 0.1 K/ul 05/21/2017 Cbc With Differential Ord2 Baso ABS# 0.0 K/ul 05/21/2017 Free T4 Jhl184 FREE T4 0.76 ng/dL 05/21/2017 Estrogens Total 053801 ESTROGENS, TOTAL 54 pg/mL 05/24/2016 Magnesium Ord90 Mag 1.8 mg/dL 05/19/2016 Tsh Ord6 hTSH II 1.56 uIU/mL 05/19/2016 Progesterone Prog 0.03 ng/mL 05/19/2016 Comp Metabolic Wbs590 NA 136 mEq/L 05/19/2016 Comp Metabolic Abq627 K 4.3 mEq/L 05/19/2016 Comp Metabolic Wzc453 CL 100 mEq/L 05/19/2016 Comp Metabolic Mwc908 CO2 28.0 mEq/L 05/19/2016 Comp Metabolic Fuj634 ANION GAP 12 05/19/2016 Comp Metabolic Dra014 GLUCOSE 138 mg/dL 05/19/2016 Comp Metabolic Hvk197 Creat 0.7 mg/dL 05/19/2016 Comp Metabolic Vul399 eGFR 89 ml/min/1.73m2 05/19/2016 Comp Metabolic Fru246 BUN 15 mg/dL 05/19/2016 Comp Metabolic Pru123 B/C Ratio 20.5 Ratio 05/19/2016 Comp Metabolic Fmd652 CALCIUM 9.7 mg/dL 05/19/2016 Comp Metabolic Lux721 ALK PHOS 106 U/L 05/19/2016 Comp Metabolic Vcb553 AST(SGOT) 21 U/L 05/19/2016 Comp Metabolic Hro907 ALT(SGPT) 24 U/L 05/19/2016 Comp Metabolic Mvq571 BILI T 0.4 mg/dL 05/19/2016 Comp Metabolic Bah950 ALBUMIN 4.1 g/dL 05/19/2016 Comp Metabolic Bra470 TPRO 7.1 g/dL 05/19/2016 Comp Metabolic Ptb044 GLOB 3.0 g/dL 05/19/2016 Comp Metabolic Eke033 A/G Ratio 1.4 Ratio 05/19/2016 Comp Metabolic Mzf275 Osmo 275 mOsmo 05/19/2016 Cbc With Differential [...] 26.6 % 05/19/2016 Cbc With Differential Ord2 [place]% 6.5 % 05/19/2016 Cbc With Differential Ord2 [...] 2.33 K/ul 05/19/2016 Cbc With Differential Ord2 [place] ABS# 0.6 K/ul 05/19/2016 Cbc With Differential Ord2 Eos ABS# 0.1 K/ul 05/19/2016 Cbc With Differential Ord2 Baso ABS# 0.0 K/ul 05/19/2016 C RAP A SC 8724629 Strep A Negative 02/28/2016 Tsh Ord6 hTSH II 1.65 uIU/mL 08/16/2015 Comp Metabolic Bax009 NA 132 mEq/L 08/16/2015 Comp Metabolic Qtp138 K 3.6 mEq/L 08/16/2015 Comp Metabolic Mdh130 CL 99 mEq/L 08/16/2015 Comp Metabolic Qeg510 CO2 23.0 mEq/L 08/16/2015 Comp Metabolic Wvp265 ANION GAP 14 08/16/2015 Comp Metabolic Kyy114 GLUCOSE 101 mg/dL 08/16/2015 Comp Metabolic Lbh465 Creat 0.7 mg/dL 08/16/2015 Comp Metabolic Vrc543 eGFR 100 ml/min/1.73m2 08/16/2015 Comp Metabolic Ixc951 BUN 10 mg/dL 08/16/2015 Comp Metabolic Dmk811 B/C Ratio 15.2 Ratio 08/16/2015 Comp Metabolic Hrv109 CALCIUM 9.3 mg/dL 08/16/2015 Comp Metabolic Zuc320 ALK PHOS 100 U/L 08/16/2015 Comp Metabolic Ewy042 AST(SGOT) 14 U/L 08/16/2015 Comp Metabolic Kek699 ALT(SGPT) 11 U/L 08/16/2015 Comp Metabolic Mty013 BILI T 0.3 mg/dL 08/16/2015 Comp Metabolic Zzq004 ALBUMIN 3.9 g/dL 08/16/2015 Comp Metabolic Xbr580 TPRO 7.1 g/dL 08/16/2015 Comp Metabolic Bva302 GLOB 3.2 g/dL 08/16/2015 Comp Metabolic Ffu528 A/G Ratio 1.2 Ratio 08/16/2015 Comp Metabolic Djc274 Osmo 264 mOsmo 08/16/2015 Cbc With Differential [...] 25.7 % 08/16/2015 Cbc With Differential Ord2 [place]% 7.1 % 08/16/2015 Cbc With Differential Ord2 [...] 2.32 K/ul 08/16/2015 Cbc With Differential Ord2 [place] ABS# 0.6 K/ul 08/16/2015 Cbc With Differential Ord2 Eos ABS# 0.1 K/ul 08/16/2015 Cbc With Differential Ord2 Baso ABS# 0.0 K/ul 08/16/2015 Cbc With Differential Ord2 New Analyzer Notice Please note new ref ranges starting 05-26-2015 due to implemntation of new five part differential hematolgy analyzer. 08/16/2015 Lipid Ord30 CHOL 209 mg/dL 12/03/2014 Lipid Ord30 HDL 42.0 mg/dl 12/03/2014 Lipid Ord30 TRIG 219 mg/dL 12/03/2014 Lipid Ord30 LDL 123 mg/dL 12/03/2014 Lipid Ord30 C/HDL 5.0 Ratio 12/03/2014 Comp Metabolic Krs278 NA 132 mEq/L 12/03/2014 Comp Metabolic Vix843 K 4.0 mEq/L 12/03/2014 Comp Metabolic Sug269 CL 101 mEq/L 12/03/2014 Comp Metabolic Cwr388 CO2 22.0 mEq/L 12/03/2014 Comp Metabolic Cho903 ANION GAP 13 12/03/2014 Comp Metabolic Wyk552 GLUCOSE 123 mg/dL 12/03/2014 Comp Metabolic Srk161 Creat 0.7 mg/dL 12/03/2014 Comp Metabolic Qfa119 eGFR 97 ml/min/1.73m2 12/03/2014 Comp Metabolic Gvi422 BUN 10 mg/dL 12/03/2014 Comp Metabolic Wup472 B/C Ratio 14.7 Ratio 12/03/2014 Comp Metabolic Att434 CALCIUM 9.2 mg/dL 12/03/2014 Comp Metabolic Gwn729 ALK PHOS 88 U/L 12/03/2014 Comp Metabolic Req276 AST(SGOT) 18 U/L 12/03/2014 Comp Metabolic Pdv103 ALT(SGPT) 17 U/L 12/03/2014 Comp Metabolic Olg202 BILI T 0.5 mg/dL 12/03/2014 Comp Metabolic Mil204 ALBUMIN 3.9 g/dL 12/03/2014 Comp Metabolic Puv024 TPRO 6.8 g/dL 12/03/2014 Comp Metabolic Gxt697 GLOB 2.9 g/dL 12/03/2014 Comp Metabolic Gjh303 A/G Ratio 1.3 Ratio 12/03/2014 Comp Metabolic Ixw943 Osmo 265 mOsmo 12/03/2014 Tsh Ord6 hTSH II 1.13 uIU/mL 12/03/2014 D-Dimer D-DIMER 168 NG/ML 12/03/2014 D-Dimer [id number] COMMENT 12/03/2014 Cbc With Differential Ord2 WBC [...] accomodation 05/19/2016 None Full Exam - General 1995 Ears/Nose/Throat lips/teeth/gingiva Overall: benign lips 05/19/2016 None Full Exam - General 1995 Ears/Nose/Throat lips/teeth/gingiva Overall: normal dentition 05/19/2016 None Full Exam - General 1995 [...] Procedure Codes Date THER/PROPH/DIAG INJ SC/IM CPT-4: 26338 06/27/2017 ROCEPHIN, PER 250 MG CPT-4: J0696 06/27/2017 IMMUNIZATION ADMIN CPT -4: 82920 03/16/2017 FLU VAC NO PRSV 4 FLETCHER 3 YRS+ CPT-4: 66088 03/16/2017 Pneumococcal Polysaccharide Vaccine, 23-Valent, Ad CPT-4: 39218 03/16/2017 IMMUNIZATION ADMIN EACH ADD CPT-4: 53827 03/16/2017 TRIAMCINOLONE ACET INJ NOS CPT-4: J3301 01/11/2017 TRIAMCINOLONE ACET INJ NOS CPT-4: J3301 02/28/2016 Vital Signs Date Vital 04/17/2018 Blood Pressure 1: 120/64 Code : 8480-6 BMI: 37.8 Code : 49696-2 Heart Rate 1 : 84 bpm Height: 5'6" SpO2: 96% Weight: 234 lbs 03/14/2018 Blood Pressure 1: 140/82 Code : 8480-6 BMI: 37.8 Code : 43029-0 Heart Rate 1 : 85 bpm Height: 5'6" SpO2: 98% Weight: 234 lbs 02/27/2018 Blood Pressure 1: 142/68 Code : 8480-6 BMI: 36.5 Code : 47831-8 Heart Rate 1 : 84 bpm Height: 5'6" SpO2: 97% Weight: 226 lbs 12/19/2017 Blood Pressure 1: 130/86 Code : 8480-6 BMI: 35.7 Code : 02861-4 Heart Rate 1 : 94 bpm Height: 5'6" Weight: 221 lbs 12/04/2017 Blood Pressure 1: 138/78 Code : 8480-6 BMI: 36.6 Code : 09491-6 Heart Rate 1 : 94 bpm Height: 5'6" SpO2: 98% Weight: 227 lbs 11/20/2017 Weight: 233 lbs 09/10/2017 Blood Pressure 1: 132/86 Code : 8480-6 Heart Rate 1: 86 bpm Height: Weight: 08/14/2017 Blood Pressure 1: 120/74 Code : 8480-6 BMI: 33.9 Code : 32392-2 Heart Rate 1 : 92 bpm Height: 5'6" SpO2: 94% Weight: 210 lbs 07/31/2017 Blood Pressure 1: 140/80 Code : 8480-6 BMI: 33.9 Code : 85986-9 Heart Rate 1 : 96 bpm Height: 5'6" SpO2: 97% Weight: 210 lbs 06/27/2017 Blood Pressure 1: 128/80 Code : 8480-6 BMI: 33.9 Code : 16906-2 Heart Rate 1 : 85 bpm Height: [...] Code : 8480-6 BMI: 39.9 Code : 93831-9 Heart Rate 1 : 79 bpm Height: 5'6" SpO2: 97% Weight: 247 lbs 01/26/2017 Blood Pressure 1: 13274 Code : 8480-6 BMI: 37.8 Code : 32769-2 Heart Rate 1 : 74 bpm Height: 5'6" SpO2: 97% Weight: 234 lbs 01/11/2017 Blood Pressure 1: 118/68 Code : 8480-6 BMI: 38.7 Code : 56135-6 Heart Rate 1 : 91 bpm Height: 5'6" SpO2: 96% Weight: 240 lbs 11/30/2016 Blood Pressure 1: 132/76 Code : 8480-6 BMI: 38.3 Code : 76596-5 Heart Rate 1 : 71 bpm Height: 5'6" SpO2: 92% Weight: 237 lbs 09/28/2016 Blood Pressure 1: 122/72 Code : 8480-6 BMI: 39.1 Code : 65621-2 Heart Rate 1 : 88 bpm Height: 5'6" SpO2: 94% Weight: 242 lbs 08/24/2016 Blood Pressure 1: 130/87 Code : 8480-6 BMI: 41.5 Code : 62523-0 Heart Rate 1 : 95 bpm Height: 5'6" Respiratory Rate: 16 bpm SpO2: 98% Temperature: 36.9 (C) / 98.5 (F ) Weight: 257 lbs 07/13/2016 Blood Pressure 1: 132/84 Code : 8480-6 BMI: 42.0 Code : 20734-6 Heart Rate 1 : 73 bpm Height: 5'6" SpO2: 97% Weight: 260 lbs 05/19/2016 Blood Pressure 1: 138/76 Code : 8480-6 BMI: 40.8 Code : 58298-0 Heart Rate 1 : 80 bpm Height: 5'6" SpO2: 98% Weight: 253 lbs 03/16/2016 Blood Pressure 1: 122/70 Code : 8480-6 BMI: 40.4 Code : 32397-1 Heart Rate 1 : 72 bpm Height: 5'6" SpO2: 98% Weight: 250 lbs 02/28/2016 Blood Pressure 1: 136/86 Code : 8480-6 BMI: 40.2 Code : 23857-1 Heart Rate 1 : 87 bpm Height: 5'6" SpO2: 96% Temperature: 36.3 (C) / 97.3 (F) Weight: 249 lbs 01/13/2016 Blood Pressure 1: 120/76 Code : 8480-6 BMI: 40.4 Code : 66976-8 Heart Rate 1 : 68 bpm Height: 5'6" SpO2: 97% Weight: 250 lbs 09/27/2015 Blood Pressure 1: 112/70 Code : 8480-6 BMI: 38.4 Code : 52651-8 Heart Rate 1 : 76 bpm Height: 5'6" SpO2: 98% Weight: 238 lbs 08/30/2015 Blood Pressure 1: 144/82 Code : 8480-6 BMI: 39.5 Code : 09380-4 Heart Rate 1 : 82 bpm Height: 5'6" SpO2: 97% Weight: 245 lbs 08/16/2015 Blood Pressure 1: 140/72 Code : 8480-6 BMI: 38.9 Code : 64007-7 Heart Rate 1 : 72 bpm Height: 5'6" SpO2: 97% Weight: 241 lbs 07/15/2015 Blood Pressure 1: 128/80 Code : 8480-6 BMI: 39.3 Code : 22138-5 Heart Rate 1 : 86 bpm Height: 5'6" SpO2: 98% Weight: 243 lbs 8 oz 06/16/2015 Blood Pressure 1: 146/86 Code : 8480-6 BMI: 39.6 Code : 75660-6 Heart Rate 1 : 76 bpm Height: 5'6" SpO2: 97% Weight: 245 lbs 8 oz 04/02/2015 Blood Pressure 1: 132/86 Code : 8480-6 BMI: 40.7 Code : 49367-8 Heart Rate 1 : 94 bpm Height: 5'6" SpO2: 98% Weight: 252 lbs 12/02/2014 Blood Pressure 1: 122/90 Code : 8480-6 BMI: 41.6 Code : 59147-8 Heart Rate 1 : 77 bpm Height: [...] E11.9] [facility] CPT-4: 69816 04/17/2018 [id number] EST. PATIENT, LEVEL III Diagnosis: Localized edema[ICD10: R60.0] Diagnosis: Essential (primary) hypertension[ICD10: I10] [facility] CPT-4: 41250 03/14/2018 59003 EST. PATIENT, LEVEL III Diagnosis: Pain in left knee[ICD10: M25.562] Diagnosis: Other obesity due to excess calories[ICD10: E66.09] Diagnosis: Other insomnia[ICD10: G47.09] Diagnosis: Generalized anxiety disorder[ICD10: F41.1] Petra Trejo MD, [facility] CPT-4: 77947 02/27/2018 ([id number]) Miscellaneous no charge Diagnosis: Other obesity due to excess calories[ICD10: E66.09] Heidy Trejo MD, [facility] CPT-4: 90883 12/19/2017 55551 EST. PATIENT, LEVEL III Diagnosis: Pain in right foot[ICD10: M79.671] Diagnosis: Pain in right ankle and joints of right foot[ICD10: M25.571] Petra Trejo MD , [facility] CPT-4: 92942 12/04/2017 44053 EST. PATIENT, LEVEL III Diagnosis: Pain in left knee[ICD10: M25.562] Diagnosis: Type 2 diabetes mellitus without complications[ICD10: E11.9] Diagnosis: Other obesity due to excess calories[ICD10: E66.09] Petra Trejo MD, [facility] CPT-4: 69231 11/20/2017 44654 EST. PATIENT, LEVEL III Diagnosis: Pain in left knee[ICD10: M25.562] Petra Trejo MD, [facility] CPT -4: 59306 09/10/2017 49021 EST. PATIENT, LEVEL III Diagnosis: Encounter for follow-up examination after completed treatment for conditions other than malignant neoplasm[ICD10: Z09] Diagnosis: Pain in left knee[ICD10: M25.562] Petra Trejo MD, [facility] CPT -4: 86092 08/14/2017 86623 EST. PATIENT, LEVEL III Diagnosis: Pain in left knee[ICD10: M25.562] Petra Trejo MD, [facility] CPT -4: 49464 07/31/2017 80816 EST. PATIENT, LEVEL III Diagnosis: Acute laryngopharyngitis[ICD10: J06.0] Diagnosis: Other allergic rhinitis[ICD10: J30.89] Petra Trejo MD, [facility] CPT-4: 69295 06/27/2017 39997 EST. PATIENT, LEVEL III Diagnosis: Ganglion, left hand[ICD10: M67.442] Diagnosis: Essential (primary) hypertension[ICD10: I10] Diagnosis: Generalized anxiety disorder[ICD10: F41.1] Diagnosis: Other insomnia[ICD10: G47.09] Petra Trejo MD, [facility] CPT-4 : 72146 05/29/2017 60397 EST. PATIENT, LEVEL III Diagnosis: Essential (primary) hypertension[ICD10: I10] Diagnosis: Palpitations[ICD10: R00.2] Diagnosis: Generalized anxiety disorder[ICD10: F41.1] Petra Trejo MD, [facility] CPT-4: 78881 05/21/2017 68764 EST. PATIENT, LEVEL III Diagnosis: Pain in right foot[ICD10: M79.671] Petra Trejo MD, [facility] CPT-4: 92052 04/20/2017 17033 EST. PATIENT, LEVEL IV Diagnosis: Other insomnia[ICD10: G47.09] Diagnosis: Other skin changes[ICD10: R23.8] Petra Trejo MD, [facility] CPT- 4: 87669 01/26/2017 16803 EST. PATIENT, LEVEL IV Diagnosis: Acute bronchitis due to other specified organisms[ICD10: J20.8] Petra Trejo MD, [facility] CPT-4: 97963 01/11/2017 ([id number]) 98481 EST. PATIENT, LEVEL IV Diagnosis: Essential (primary) hypertension[ICD10: I10] Diagnosis: Other insomnia[ICD10: G47.09] Diagnosis: Primary generalized (osteo)arthritis[ICD10: M15.0] Diagnosis: Other obesity due to excess calories[ICD10: E66.09] Claudette Trejo MD, [facility] CPT-4: 18661 11/30/2016 ([id number]) 84512 EST. PATIENT, LEVEL III Diagnosis: Other obesity due to excess calories[ICD10: E66.09] Diagnosis: Other insomnia[ICD10: G47.09] Diagnosis: Generalized anxiety disorder[ICD10: F41.1] Claudette Trejo MD, [facility] CPT-4: 26636 09/28/2016 ([id number]) 38518 EST. PATIENT, LEVEL IV Diagnosis: Generalized anxiety disorder[ICD10: F41.1] Diagnosis: Major depressive disorder, recurrent, mild[ICD10: F33.0] Diagnosis: Other obesity due to excess calories[ICD10: E66.09] Diagnosis: Other insomnia[ICD10: G47.09] Claudette Trejo MD, [facility] CPT-4: 09781 08/24/2016 ([id number]) 05404 EST. PATIENT, LEVEL III Diagnosis: Other obesity due to excess calories[ICD10: E66.09] Diagnosis: Major depressive disorder, recurrent, moderate[ICD10: F33.1] Diagnosis: Low back pain[ICD10: M54.5] Heidy Trejo MD, [facility] CPT- 4: 51335 07/13/2016 79137 EST. PATIENT, LEVEL IV Diagnosis: Other muscle spasm[ICD10: M62.838] Diagnosis: Generalized anxiety disorder[ICD10: F41.1] Diagnosis: Major depressive disorder, recurrent, moderate[ICD10: F33.1] Diagnosis: Other insomnia[ICD10: G47.09] Petra Trejo MD, [facility] CPT-4 : 25272 05/19/2016 ([id number]) 44754 EST. PATIENT, LEVEL III Diagnosis: Generalized anxiety disorder[ICD10: F41.1] Diagnosis: Major depressive disorder, recurrent, moderate[ICD10: F33.1] Heidy Trejo MD, [facility] CPT-4: 10075 03/16/2016 ([id number]) 78716 EST. PATIENT, LEVEL III Diagnosis: Streptococcal pharyngitis[ICD10: J02.0] Claudette Trejo MD, [facility] CPT-4: 30648 02/28/2016 ([id number]) 67602 EST. PATIENT, LEVEL III Diagnosis: Generalized anxiety disorder[ICD10: F41.1] Diagnosis: Other obesity due to excess calories[ICD10: E66.09] Heidy Trejo MD, [facility] CPT-4: 00438 01/13/2016 ([id number]) 97479 EST. PATIENT, LEVEL III Diagnosis: Generalized anxiety disorder[ICD10: F41.1] Diagnosis: Major depressive disorder, recurrent, unspecified[ICD10: F33.9] Heidy Trejo MD, [facility] CPT-4: 52995 09/27/2015 64590 EST. PATIENT, LEVEL IV Diagnosis: Chronic pain syndrome[ICD10: G89.4] Diagnosis: Other obesity due to excess calories[ICD10: E66.09] Diagnosis: Essential (primary) hypertension[ICD10: I10] Diagnosis: Generalized anxiety disorder[ICD10: F41.1] Diagnosis: Excessive and frequent menstruation with regular cycle[ICD10: N92.0] Diagnosis: Pain in right knee[ICD10: M25.561] Petra Trejo MD, [facility] CPT-4: 54909 08/30/2015 76085 EST. PATIENT, LEVEL IV Diagnosis: Palpitations[ICD10: R00.2] Diagnosis: Other obesity due to excess calories[ICD10: E66.09] Petra Trejo MD, [facility] CPT-4: 38572 08/16/2015 ([id number]) 05803 EST. PATIENT, LEVEL IV Diagnosis: Pain in right knee[ICD10: M25.561] Diagnosis: Primary generalized (osteo)arthritis[ICD10: M15.0] Diagnosis: Acute maxillary sinusitis, unspecified[ICD10: J01.00] Heidy Trejo MD, [facility] CPT-4: 35400 07/15/2015 ([id number]) 79014 EST. PATIENT, LEVEL IV Diagnosis: Primary generalized (osteo)arthritis[ICD10: M15.0] Diagnosis: Restless legs syndrome[ICD10: G25.81] Diagnosis: Chronic pain syndrome[ICD10: G89.4] Heidy Trejo MD, [facility] CPT-4: 02514 06/16/2015 ([id number]) 08862 EST. PATIENT, LEVEL III Diagnosis: Primary generalized (osteo)arthritis[ICD10: M15.0] Diagnosis: Varicose veins of bilateral lower extremities with pain[ICD10: I83.813] Claudette Trejo MD, [facility] CPT-4: 75163 ([id number]) OFFICE VISIT, NEW - LEVEL 3 Diagnosis: Osteoarthritis[ICD9: 715.90] Diagnosis: ABNORMAL WEIGHT GAIN[ICD9: 783.1] Diagnosis: Superficial thrombophlebitis[ICD9: 451.9] [facility] CPT-4: 45586 12/02/2014 Plan of Care Planned Activity Notes [...] glucose control. 04/17/2018 Appointment: Petra Rivas WPtel: [address] [place], [place] [address] (15 min) Moderate 04/17/2018 Patient Education: Patient [...] peripheral edema. 03/14/2018 Appointment: [facility] ([facility] min) Moderate 03/14/2018 Patient Education: Patient [...] to ortho 02/27/2018 Appointment: [facility] (30 min) Complex 02/27/2018 Patient Education: Patient [...] not improve. 12/04/2017 Appointment: [facility] [place] (15 min) Moderate 12/04/2017 Patient Education: [...] glucose control. 11/20/2017 Appointment: Petra Rivas WPtel: [facility] [place] [place] (15 min) Moderate 11/20/2017 Patient Education: [...] not improve. 09/10/2017 Appointment: Petra Rivas WPtel: [address] [place], [place] [id number] [place] (15 min) Moderate 09/10/2017 Patient Education: [...] not improve. 08/14/2017 Appointment: Petra Rivas WPtel: [facility] [place] [place] (30 min) Complex 08/14/2017 Patient Education: Patient Medication Summary Completed 08/14/2017 Appointment: [facility] (15 min) Moderate 08/01/2017 Visit Plan: Knee pain - pt is to use RICE - Rest, Ice, Compression, Elevation - pt is to use crutches as directed - The pt is to use prn antiinflammatories to manage acute pain. The patient is to call the office if the pain is worsening or does not improve. 07/31/2017 Appointment: Petra Rivas WPtel: [facility] (30 min) Complex 07/31/2017 Patient Education: Patient Medication Summary Completed 07/31/2017 Care Plan: X-RAY EXAM OF KNEE 3 LOINC : 36564-5 Pending 07/31/2017 Visit Plan: URI - Pt [...] spray. 06/27/2017 Appointment: Petra Rivas WPtel: [facility] (15 min) Moderate 06/27/2017 Patient Education: Patient Medication Summary Completed 06/27/2017 [facility] Referral info fax[facility]. Completed 06/13/2017 [...] Dr. Quinn 05/29/2017 Appointment: Petra Rivas WPtel: [facility] (15 min) Moderate 05/29/2017 Patient Education: Patient Medication Summary Completed 05/29/2017 Care Plan: Referral Order SNOMED-CT : 549032139 Pending 05/29/2017 Appointment: Petra Rivas WPtel: [phone] [facility] (15 min) Moderate 05/28/2017 Visit Plan: Palpitations [...] [facility]ivas [facility] [place] (15 min) Moderate 05/21/2017 Patient Education: Patient Medication Summary Completed 05/21/2017 Visit Plan: Right heel pain - will send RX, pt is to do stretches as directed - The pt is to use prn antiinflammatories to manage acute pain. The patient is to call the office if the pain is worsening or does not improve. 04/20/2017 Appointment: Petra Rivas WPtel: [facility]5 [facility] (30 min) Complex 04/20/2017 Patient Education: Patient Medication Summary Completed 04/20/2017 Appointment: Petra Rivas WPtel: [facility]5 [facility] (30 min) Complex 03/29/2017 Patient Education: Patient Medication Summary Completed 03/16/2017 Referral: Maycol Quijano Referral Initiated 02/08/2017 Care Plan: Referral Order SNOMED-CT : [id number] Pending 01/28/2017 Visit Plan: Insomnia - Pt [...] or concerns. 01/26/2017 Appointment: Petra Rivas WPtel: [facility]5 [facility] (30 min) Complex 01/26/2017 Patient Education: [...] acutely worsen. 01/11/2017 Appointment: Petra Rivas WPtel: [facility] (15 min) Moderate 01/11/2017 Patient Education: Patient [...] on use. 11/30/2016 Appointment: Claudette Savage WPtel: [address] [place] [address] (15 min) Moderate 11/30/2016 Patient Education: Patient Medication Summary Completed 11/30/2016 Patient Education: Obesity Completed 11/30/2016 Care Plan: BMI Above normal followup SELF-MGMT EDUC & TRAIN 1 PT Pending 2016 Visit Plan: Fcibaod-kwqhwdkcts-phezxtvu with increase in cymbalta-no changes Insomnia-RX for belsomra provided and instructed on use Obesity-patient down 15#-no changes-continue diet/exercise-follow up in 2 months 09/28/2016 Appointment: Claudette Savage WPtel: [address] [place] [address] (15 min) Moderate 09/28/2016 Patient Education: Patient Medication Summary Completed 09/28/2016 Patient Education: Obesity Completed 09/28/2016 Care Plan: BMI Above normal followup SELF-MGMT EDUC & TRAIN 1 PT Pending 2016 Visit Plan: Lydxfax-lzaizkniie-eqlwteqj-increase cymbalta to 60mg daily. Increase xanax as [...] for insomnia/anxiety 08/24/2016 Appointment: Claudette Savage WPtel: [address] [place], [place] [phone] [place] (15 min) Moderate 08/24/2016 Patient Education: [...] improving. 07/13/2016 Appointment: [facility] (15 min) Moderate 07/13/2016 Patient Education: [...] insomnia. 05/19/2016 Appointment: [facility]ivas [facility] (30 min) Complex 05/19/2016 Patient Education: Patient [...] this patient. 03/16/2016 Appointment: Heidy Trejo WPtel: [facility] (15 min) Moderate 03/16/2016 Patient Education: [...] the swab. 02/28/2016 Appointment: Claudette Savage WPtel: [facility]2 [phone] [place] (10 min) Simple 02/28/2016 [...] stop lexapro 01/13/2016 Appointment: Heidy Trejo WPtel: [facility]6 [facility] (15 min) Moderate 01/13/2016 Patient Education: [...] 09/27/2015 Care Plan: Referral Order SNOMED-CT : [id number] Pending 08/31/2015 Visit Plan: Anxiety - the [...] show improvement. 07/15/2015 Appointment: Heidy Trejo WPtel: [address] [place], [place] [address] (15 min) Moderate 07/15/2015 Patient Education: Patient [...] clinic 04/02/2015 Appointment: Claudette Savage WPtel: [phone] [phone] (15 min) Moderate 04/02/2015 Patient Education: Patient [...] Summary Completed 12/02/2014 Referral: Belle Hoffman WPtel: [facility]3 [facility] they will call and set the appt with her Initiated Referral: Maycol Quijano Referral Initiated Referral: Belle Hoffman WPtel: [phone] [facility] Referral Initiated [facility] Init[facility] Instructions Comment . Chronic Depression and anxiety - the [...] greater blood glucose control. . Hypertension - well controlled - continue [...] 1 mg at night for anxiety . Poeylef-miltvcuwsh-feeegcgp-increase cymbalta to 60mg daily. Increase xanax as [...] benefits of treatment with the above medications. glucosamine and chondroiton - joint ease, joint [...] to further attempt to reduce peripheral edema. Breathing treatments 3 times a day x [...] worsening or does not improve. BELSOMRA . Pqimqxj-esfgjplnjk-efxmoglj with increase in cymbalta-no changes Insomnia-RX for [...] spray in the nasal steroid allergy spray. CALL ME IN 1 MONTH AND LET [...]
--- OUTSIDE RECORDS SUMMARY | 2018-07-24 23:53 | XMS REPORT | CCD ---
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 Name Role Phone PP Unavailable CCM Unavailable Summary Purpose Interface Exchange Insurance Providers Payer name Policy type / Coverage type Covered republican ID Effective Begin Date Effective End Date [facility] Commercial Insurance [id number] Unknown Family history Brother Diagnosis Age At [...] Description Effective Dates Tobacco history SNOMED CT: 8268798 Quit less than 5 years ago 04/02/2015 Alcohol history Unknown occasionally drinks alcohol 04/02/2015 Marital status Unknown Manuel Vitale 12/02/2014 Number of children Unknown 3 12/02/2014 Allergies, Adverse Reactions, Alerts Substance Reaction Codes Entered Date Inactivated Date Status * NO KNOWN FOOD ALLERGIES Unknown 12/02/2014 No Inactive Date Active Penicillin Unknown 12/02/2014 No Inactive Date Active tramadol RxNorm: 10349 12/02/2014 No Inactive Date Active Past Medical [...] Fill Instructions hydrochlorothiazide 25 mg tablet RxNorm: 730541 1 TABLET(S) PO DAILY 04/08/2018 07/06/2018 Active Zorvolex 35 mg capsule RxNorm: 8059828 TAKE 1 CAPSULE BY MOUTH THREE (3) TIMES DAILY 03/27/2018 04/25/2018 Active gabapentin 300 mg capsule RxNorm: 247538 1 CAPSULE(S) PO TID 04/14/2018 Inactive hydrochlorothiazide 25 mg tablet RxNorm: 588160 1 Tablet(s) PO daily 03/14/2018 04/07/2018 Inactive Cymbalta 60 mg capsule,delayed release RxNorm: 328708 1 Capsule(s) PO daily TAKE 1 CAPSULE BY MOUTH DAILY 02/27/20182019 Active Victoza 2-Marek 0.6 mg/0.1 mL (18 mg/3 mL) subcutaneous pen injector RxNorm: 238631 Milligram(s) INJECT 1.8 MG SUB-Q ONCE DAILY 02/27/2018 08/20/2019 Active qty sufficient Xanax 1 mg tablet RxNorm: 610302 1-2 Tablet(s) PO QHS as needed insomnia 02/27/2018 05/27/2018 Active atorvastatin 20 mg tablet RxNorm: 374568 1 Tablet(s) PO daily 02/27/2018 05/22/2019 Active Ambien 10 mg tablet RxNorm: 219137 1 Tablet(s) PO QHS as needed insomnia 02/27/2018 05/26/2018 Active Cymbalta 60 mg capsule,delayed release RxNorm: 527923 TAKE 1 CAPSULE BY MOUTH DAILY 02/27/2018 02/26/2018 Inactive gabapentin 300 mg capsule RxNorm: 493245 1 Capsule(s) PO TID 03/24/2018 Inactive meloxicam 7.5 mg tablet RxNorm: 449411 1 Tablet(s) PO daily 1 TABLET(S) PO DAILY 02/27/2018 04/14/2018 Inactive atorvastatin 20 mg tablet RxNorm: 494705 1 Tablet(s) PO daily 02/05/2018 02/26/2018 Inactive atorvastatin 20 mg tablet RxNorm: 706435 1 Tablet(s) PO daily 02/05/2018 02/04/2018 Inactive meloxicam 7.5 mg tablet RxNorm: 643499 1 TABLET(S) PO DAILY 02/26/2018 Inactive oxycodone 15 mg tablet RxNorm: 0389487 1 Tablet(s) PO QID as needed 01/07/2018 02/19/2018 Inactive lactulose 20 gram/30 mL oral solution RxNorm: 442459 15-30 Milliliter(s) PO BID as needed 12/31/2017 02/20/2018 Inactive meloxicam 7.5 mg tablet RxNorm: 265126 1 TABLET(S) PO DAILY 06/201701/31/2018 Inactive Zorvolex 35 mg capsule RxNorm: 5561181 1 Capsule(s) PO TID 06/201702/20/2018 Inactive Ambien 10 mg tablet RxNorm: 875269 1 Tablet(s) PO QHS as needed insomnia 12/04/2017 02/26/2018 Inactive oxycodone 15 mg tablet RxNorm: 8301326 1 Tablet(s) PO QID as needed 12/04/2017 01/06/2018 Inactive prednisone 20 mg tablet RxNorm: 052481 2 Tablet(s) PO daily 12/08/2017 Inactive Victoza 2-Marek 0.6 mg/0.1 mL (18 mg/3 mL) subcutaneous pen injector RxNorm: 927607 Milligram(s) INJECT 1.8 MG SUB-Q ONCE DAILY 11/20/2017 02/26/2018 Inactive meloxicam 7.5 mg tablet RxNorm: 509337 1 Tablet(s) PO daily 02/201812/12/2017 Inactive phentermine 37.5 mg tablet RxNorm: 538925 1 Tablet(s) PO daily 11/20/2017 12/19/2017 Inactive Ambien 10 mg tablet RxNorm: 474164 1 Tablet(s) PO QHS as needed insomnia 11/20/2017 12/18/2017 Inactive Xanax 1 mg tablet RxNorm: 592864 1.5 Tablet(s) PO QHS as needed insomnia 11/20/2017 02/26/2018 Inactive hydrocodone 7.5 mg-acetaminophen 325 mg tablet RxNorm: 175944 1 Tablet(s) PO TID as needed 11/16/2017 01/06/2018 Inactive Cymbalta 60 mg capsule,delayed release RxNorm: 371919 TAKE 1 CAPSULE BY MOUTH DAILY 11/02/2017 02/26/2018 Inactive Xanax 1 mg tablet RxNorm: 108772 1 Tablet(s) PO BID PRN as needed anxiety 10/04/2017 11/19/2017 Inactive Victoza 2-Marek 0.6 mg/0.1 mL (18 mg/3 mL) subcutaneous pen injector RxNorm: 051080 INJECT 1.8 MG SUB-Q ONCE DAILY 10/04/2017 11/19/2017 Inactive hydrocodone 7.5 mg-acetaminophen 325 mg tablet RxNorm: 136831 1 Tablet(s) PO TID as needed 09/17/2017 11/15/2017 Inactive hydrocodone 7.5 mg-acetaminophen 325 mg tablet RxNorm: 912256 1 Tablet(s) PO TID as needed 09/10/2017 09/16/2017 Inactive prednisone 10 mg tablet RxNorm: 681535 Tablet(s) PO 09/10/2017 11/13/2017 Inactive 6, 5,4,3,2,1 Zorvolex 35 mg capsule RxNorm: 8972091 1 Capsule(s) PO TID 11/13/2017 Inactive Ambien 10 mg tablet RxNorm: 595610 1 Tablet(s) PO QHS as needed insomnia 08/29/2017 11/19/2017 Inactive Zorvolex 35 mg capsule RxNorm: 7763537 1 Capsule(s) PO TID 09/06/2017 Inactive Zorvolex 35 mg capsule RxNorm: 4070989 1 Capsule(s) PO TID 06/201708/27/2017 Inactive Zorvolex 35 mg capsule RxNorm: 2027686 1 Capsule(s) PO TID 06/201708/12/2017 Inactive prednisone 20 mg tablet RxNorm: 156303 2 Tablet(s) PO daily 08/04/2017 Inactive hydrocodone 7.5 mg-acetaminophen 325 mg tablet RxNorm: 515692 1 Tablet(s) PO TID as needed 07/31/2017 09/09/2017 Inactive Zorvolex 35 mg capsule RxNorm: 3284266 1 Capsule(s) PO TID as needed 07/31/2017 11/13/2017 Inactive ceftriaxone 500 mg solution for injection RxNorm: 0367167 1 Milliliter(s) Inj 06/27/2017 06/27/2017 Inactive Keflex 500 mg capsule RxNorm: 877764 1 Capsule(s) PO TID 201707/03/2017 Inactive Ambien 10 mg tablet RxNorm: 464156 1 Tablet(s) PO daily 201708/25/2017 Inactive tramadol 50 mg tablet RxNorm: 292112 1 Tablet(s) PO TID as needed 05/29/2017 07/27/2017 Inactive Xanax 1 mg tablet RxNorm: 624915 1 Tablet(s) PO BID PRN as needed anxiety 05/21/2017 10/03/2017 Inactive alprazolam 1 mg tablet RxNorm: 485648 1 Tablet(s) PO BID as needed 05/21/2017 06/19/2017 Inactive Celebrex 200 mg capsule RxNorm: 222382 1 CAPSULE(S) PO BID 11/05/2017 Inactive prednisone 20 mg tablet RxNorm: 289365 2 Tablet(s) PO daily 12/201604/24/2017 Inactive Ambien 10 mg tablet RxNorm: 080382 Tablet(s) PO 04/20/2017 05/28/2017 Inactive hydrocodone 5 mg-acetaminophen 325 mg tablet RxNorm: 357775 1 Tablet(s) PO QID as needed 04/20/2017 08/01/2017 Inactive Cymbalta 60 mg capsule,delayed release RxNorm: 553591 1 Capsule(s) PO daily 04/20/2017 02/26/2018 Inactive Victoza 2-Marek 0.6 mg/0.1 mL (18 mg/3 mL) subcutaneous pen injector RxNorm: 000541 INJECT 1.8 MG SUB-Q ONCE DAILY 03/26/2017 09/21/2017 Inactive diazepam 2 mg tablet RxNorm: 540083 1 Tablet(s) PO QHS as needed insomnia 01/28/2017 05/07/2017 Inactive Victoza 2-Marek 0.6 mg/0.1 mL (18 mg/3 mL) subcutaneous pen injector RxNorm: 841369 1.8 Milligram(s) SQ daily 01/26/201703/25 Inactive dispense quantity sufficient Tussionex Pennkinetic ER 10 mg-8 mg/5 mL suspension, extended release RxNorm: 0526677 5 Milliliter(s) PO BID 01/11/2017 01/15/2017 Inactive Xanax 1 mg tablet RxNorm: 877552 1 Tablet(s) PO BID PRN as needed anxiety 01/11/2017 05/20/2017 Inactive Zithromax Z-Marek 250 mg tablet RxNorm: 725190 1 Tablet(s) PO UD 01/11/2017 01/15/2017 Inactive zpack albuterol sulfate 2.5 mg/3 mL (0.083 %) solution for nebulization RxNorm: 978870 3 Milliliter(s) INH UD 01/11/201707/2017 Inactive prednisone 20 mg tablet RxNorm: 189463 2 Tablet(s) PO daily 01/15/2017 Inactive Kenalog 40 mg/mL suspension for injection RxNorm: 3789785 1.5 Milliliter(s) Inj 01/11/2017 01/11/2017 Inactive Celebrex 200 mg capsule RxNorm: 443204 1 Capsule(s) PO BID 02/27/2017 Inactive Ambien 5 mg tablet RxNorm: 047955 1 Tablet(s) PO HS PRN 11/3008/07/2017 Inactive trazodone 50 mg tablet RxNorm: 111182 1/2 to 1 Tablet(s) PO QHS 10/13/2016 10/12/2016 Inactive trazodone 50 mg tablet RxNorm: 615234 1/2 to 1 Tablet(s) PO QHS 10/13/2016 11/29/2016 Inactive Belsomra 10 mg tablet RxNorm: 1583389 1 Tablet(s) PO QHS 201611/29/2016 Inactive may increase to 20mg if 10mg not effective Cymbalta 60 mg capsule,delayed release RxNorm: 740554 1 Capsule(s) PO daily 08/24/2016 03/21/2017 Inactive Xanax 1 mg tablet RxNorm: 695926 1 Tablet(s) PO BID PRN as needed anxiety 08/24/2016 01/10/2017 Inactive Victoza 2-Marek 0.6 mg/0.1 mL (18 mg/3 mL) subcutaneous pen injector RxNorm: 458201 Milligram(s) SQ 08/24/2016 08/23/2016 Inactive Victoza 2-Marek 0.6 mg/0.1 mL (18 mg/3 mL) subcutaneous pen injector RxNorm: 516634 1.8 Milligram(s) SQ 08/24/2016 01/25/2017 Inactive Vitamin D2 50,000 unit capsule RxNorm: 392231 1 Capsule(s) PO QW 07/13/2016 10/10/2016 Inactive Cymbalta 30 mg capsule,delayed release RxNorm: 002738 1 Capsule(s) PO daily 07/13/2016 08/23/2016 Inactive Belviq XR 20 mg tablet,extended release RxNorm: 3189235 1 Tablet(s) PO daily 05/30/2016 05/29/2016 Inactive prednisone 20 mg tablet RxNorm: 651347 2 Tablet(s) PO daily 06/03/2016 Inactive prednisone 20 mg tablet RxNorm: 620225 2 Tablet(s) PO daily 05/29/2016 Inactive Belviq XR 20 mg tablet,extended release RxNorm: 9365824 1 Tablet(s) PO daily 05/30/2016 06/28/2016 Inactive cyclobenzaprine 5 mg tablet RxNorm: 586724 1-2 Tablet(s) PO TID as needed 05/19/2016 05/23/2016 Inactive metoprolol succinate ER 25 mg tablet,extended release 24 hr RxNorm: 168756 1 Tablet(s) PO QPM 04/10/2016 04/13/2016 Inactive metoprolol succinate ER 25 mg tablet,extended release 24 hr RxNorm: 534436 1 Tablet(s) PO QPM 04/10/2016 04/09/2016 Inactive escitalopram 10 mg tablet RxNorm: 644498 1 Tablet(s) PO daily 03/16/2016 07/12/2016 Inactive estradiol 1 mg tablet RxNorm: 494028 1 Tablet(s) PO every other day 03/16/2016 05/15/2016 Inactive Kenalog 40 mg/mL suspension for injection RxNorm: 2094037 Milliliter(s) Inj 02/28/2016 02/28/2016 Inactive Zithromax Z-Marek 250 mg tablet RxNorm: 443140 1 Tablet(s) PO UD 02/28/2016 03/03/2016 Inactive zpack Lexapro 10 mg tablet RxNorm: 036783 1 Tablet(s) PO daily 201502/27/2016 Inactive Lexapro 10 mg tablet RxNorm: 988385 1 Tablet(s) PO daily 201509/26/2015 Inactive Vimovo 500 mg-20 mg tablet,immediate and delay release RxNorm: 690922 1 Tablet(s) PO BID as needed for pain 08/30/201509/25 Inactive azithromycin 250 mg tablet RxNorm: 745027 1 Tablet(s) PO UD 2 pills on day #1, then one pill daily x 4 days 07/15/2015 Inactive hydrocodone 10 mg-acetaminophen 325 mg tablet RxNorm: 213079 1 Tablet(s) PO QID 06/16/2015 01/12/2016 Inactive pramipexole 0.5 mg tablet RxNorm: 607452 1 Tablet(s) PO QPM 07/201507/14/2015 Inactive Celebrex 200 mg capsule RxNorm: 501227 1 Capsule(s) PO daily 05/02/2015 Inactive Celebrex 200 mg capsule RxNorm: 141837 1 Capsule(s) PO daily 01/12/2016 Inactive hydrocodone 7.5 mg-acetaminophen 325 mg tablet RxNorm: 409682 1 Tablet(s) PO Q6 PRN 05/03/2015 06/15/2015 Inactive Mobic 15 mg tablet RxNorm: 872841 1 Tablet(s) PO daily 201405/02/2015 Inactive hydrocodone 7.5 mg-acetaminophen 325 mg tablet RxNorm: 765444 1 Tablet(s) PO Q6 PRN 04/02/2015 05/02/2015 Inactive hydrocodone 5 mg-acetaminophen 325 mg tablet RxNorm: 608571 1 Tablet(s) PO Q6 as needed 12/11/2014 04/01/2015 Inactive Pennsaid 1.5 % topical drops RxNorm: 207386 40 Drop(s) TOP QID as needed 12/07/2014 02/04/2015 Inactive Apply 40 drops to each knee joint 4 times per day as needed for osteoarthritis pain estradiol 1 mg tablet RxNorm: 317249 1 Tablet(s) PO QHS No Start Date 03/15/2016 Inactive Xanax 0.5 mg tablet RxNorm: 568873 1 Tablet(s) PO Q6 as needed anxiety No Start Date 08/23/2016 Inactive Tylenol Extra Strength 500 mg tablet RxNorm: 352891 3 Tablet(s) PO BID after breakfast and after lunch No Start Date Inactive lactulose 20 gram/30 mL oral solution RxNorm: 558787 15-30 Milliliter(s) PO BID as needed No Start Date 12/30/2017 Inactive hydrocodone 5 mg-acetaminophen 325 mg tablet RxNorm: 742919 1 Tablet(s) PO Q6 as needed No Start Date 12/10/2014 Inactive Phenergan-Codeine syrup RxNorm: 5-10 Milliliter(s) PO QID as needed No Start Date 11/13/2017 Inactive ibuprofen 200 mg capsule RxNorm: 846301 4 Capsule(s) PO QID as needed No Start Date 04/01/2015 Inactive Medication Administered Medication Codes Instructions Start Date Status ceftriaxone 500 mg solution for injection RxNorm: 5572404 1Milliliter 06/27/2017 No longer Active Kenalog 40 mg/mL suspension for injection RxNorm: 4699171 1.5Milliliter 01/11/2017 No longer Active Kenalog 40 mg/mL suspension for injection RxNorm: 0593141 Milliliter 02/28/2016 No longer Active Immunizations Vaccine [...] Code Item Item Code Result Date %Hba1C Btg355 % HbA1c 98826-5 6.7 % 11/20/2017 %Hba1C Qpr664 Gluc Ave 146 mg/dL 11/20/2017 Free T4 Hmb268 FREE T4 0.76 ng/dL 05/21/2017 Tsh Ord6 hTSH II 1.27 uIU/mL 05/21/2017 Comp Metabolic Bmj083 NA 140 mEq/L 05/21/2017 Comp Metabolic Bgf593 K 3.9 mEq/L 05/21/2017 Comp Metabolic Top917 CL 101 mEq/L 05/21/2017 Comp Metabolic Yus548 CO2 28.0 mEq/L 05/21/2017 Comp Metabolic Pzd783 ANION GAP 15 05/21/2017 Comp Metabolic Gij203 GLUCOSE 155 mg/dL 05/21/2017 Comp Metabolic Epz639 Creat 0.7 mg/dL 05/21/2017 Comp Metabolic Fri818 eGFR 87 ml/min/1.73m2 05/21/2017 Comp Metabolic Xtx473 BUN 16 mg/dL 05/21/2017 Comp Metabolic Idg236 B/C Ratio 21.6 Ratio 05/21/2017 Comp Metabolic Rbv192 CALCIUM 9.4 mg/dL 05/21/2017 Comp Metabolic Dls050 ALK PHOS 132 U/L 05/21/2017 Comp Metabolic Abh120 AST(SGOT) 16 U/L 05/21/2017 Comp Metabolic Ove291 ALT(SGPT) 20 U/L 05/21/2017 Comp Metabolic Dag545 BILI T 0.4 mg/dL 05/21/2017 Comp Metabolic Nyb041 ALBUMIN 4.0 g/dL 05/21/2017 Comp Metabolic Kzy317 TPRO 6.7 g/dL 05/21/2017 Comp Metabolic Whh868 GLOB 2.7 g/dL 05/21/2017 Comp Metabolic Pak359 A/G Ratio 1.5 Ratio 05/21/2017 Comp Metabolic Jzr581 Osmo 284 mOsmo 05/21/2017 Cbc With Differential [...] 28.9 pg 05/21/2017 Cbc With Differential Ord2 Kimble% 5.5 % 05/21/2017 Cbc With Differential Ord2 [...] 2.65 K/ul 05/21/2017 Cbc With Differential Ord2 Kimble ABS# 0.8 K/ul 05/21/2017 Cbc With Differential Ord2 Eos ABS# 0.1 K/ul 05/21/2017 Cbc With Differential Ord2 Baso ABS# 0.0 K/ul 05/21/2017 Estrogens Total 074178 ESTROGENS, TOTAL 54 pg/mL 05/24/2016 Magnesium Ord90 Mag 1.8 mg/dL 05/19/2016 Tsh Ord6 hTSH II 1.56 uIU/mL 05/19/2016 Progesterone Prog 0.03 ng/mL 05/19/2016 Comp Metabolic Lnn209 NA 136 mEq/L 05/19/2016 Comp Metabolic Hso186 K 4.3 mEq/L 05/19/2016 Comp Metabolic Mkg746 CL 100 mEq/L 05/19/2016 Comp Metabolic Qzp821 CO2 28.0 mEq/L 05/19/2016 Comp Metabolic Efy654 ANION GAP 12 05/19/2016 Comp Metabolic Pmi866 GLUCOSE 138 mg/dL 05/19/2016 Comp Metabolic Otr776 Creat 0.7 mg/dL 05/19/2016 Comp Metabolic Wrm180 eGFR 89 ml/min/1.73m2 05/19/2016 Comp Metabolic Hkm867 BUN 15 mg/dL 05/19/2016 Comp Metabolic Svj912 B/C Ratio 20.5 Ratio 05/19/2016 Comp Metabolic Rxm175 CALCIUM 9.7 mg/dL 05/19/2016 Comp Metabolic Wiy684 ALK PHOS 106 U/L 05/19/2016 Comp Metabolic Xzf875 AST(SGOT) 21 U/L 05/19/2016 Comp Metabolic Wrz986 ALT(SGPT) 24 U/L 05/19/2016 Comp Metabolic Vip013 BILI T 0.4 mg/dL 05/19/2016 Comp Metabolic Idi958 ALBUMIN 4.1 g/dL 05/19/2016 Comp Metabolic Bsv348 TPRO 7.1 g/dL 05/19/2016 Comp Metabolic Xhm492 GLOB 3.0 g/dL 05/19/2016 Comp Metabolic Uvu465 A/G Ratio 1.4 Ratio 05/19/2016 Comp Metabolic Vfm896 Osmo 275 mOsmo 05/19/2016 Cbc With Differential [...] 86.5 fl 05/19/2016 Cbc With Differential Ord2 Kimble% 6.5 % 05/19/2016 Cbc With Differential Ord2 [...] 2.33 K/ul 05/19/2016 Cbc With Differential Ord2 Kimble ABS# 0.6 K/ul 05/19/2016 Cbc With Differential Ord2 Eos ABS# 0.1 K/ul 05/19/2016 Cbc With Differential Ord2 Baso ABS# 0.0 K/ul 05/19/2016 C RAP A SC 7286014 Strep A Negative 02/28/2016 Tsh Ord6 hTSH [...] 26.2 pg 08/16/2015 Cbc With Differential Ord2 Kimble% 7.1 % 08/16/2015 Cbc With Differential Ord2 [...] 2.32 K/ul 08/16/2015 Cbc With Differential Ord2 Kimble ABS# 0.6 K/ul 08/16/2015 Cbc With Differential Ord2 Eos ABS# 0.1 K/ul 08/16/2015 Cbc With Differential Ord2 Baso ABS# 0.0 K/ul 08/16/2015 Cbc With Differential Ord2 New Analyzer Notice Please note new ref ranges starting 05-26-2015 due to implemntation of new five part differential hematolgy analyzer. 08/16/2015 Comp Metabolic Oyi748 NA 132 mEq/L 08/16/2015 Comp Metabolic Hdk355 K 3.6 mEq/L 08/16/2015 Comp Metabolic Fzj536 CL 99 mEq/L 08/16/2015 Comp Metabolic Xca142 CO2 23.0 mEq/L 08/16/2015 Comp Metabolic Zgz779 ANION GAP 14 08/16/2015 Comp Metabolic Uoz292 GLUCOSE 101 mg/dL 08/16/2015 Comp Metabolic Rzb266 Creat 0.7 mg/dL 08/16/2015 Comp Metabolic Ede789 eGFR 100 ml/min/1.73m2 08/16/2015 Comp Metabolic Tzz979 BUN 10 mg/dL 08/16/2015 Comp Metabolic Jds779 B/C Ratio 15.2 Ratio 08/16/2015 Comp Metabolic Dek083 CALCIUM 9.3 mg/dL 08/16/2015 Comp Metabolic Cxs512 ALK PHOS 100 U/L 08/16/2015 Comp Metabolic Etc881 AST(SGOT) 14 U/L 08/16/2015 Comp Metabolic Wle381 ALT(SGPT) 11 U/L 08/16/2015 Comp Metabolic Wnj194 BILI T 0.3 mg/dL 08/16/2015 Comp Metabolic Pkn558 ALBUMIN 3.9 g/dL 08/16/2015 Comp Metabolic Aru498 TPRO 7.1 g/dL 08/16/2015 Comp Metabolic Zff930 GLOB 3.2 g/dL 08/16/2015 Comp Metabolic Erf920 A/G Ratio 1.2 Ratio 08/16/2015 Comp Metabolic Acr127 Osmo 264 mOsmo 08/16/2015 Lipid Ord30 CHOL 209 mg/dL 12/03/2014 Lipid Ord30 HDL 42.0 mg/dl 12/03/2014 Lipid Ord30 TRIG 219 mg/dL 12/03/2014 Lipid Ord30 LDL 123 mg/dL 12/03/2014 Lipid Ord30 C/HDL 5.0 Ratio 12/03/2014 Comp Metabolic Tvx475 NA 132 mEq/L 12/03/2014 Comp Metabolic Jyd034 K 4.0 mEq/L 12/03/2014 Comp Metabolic Aro226 CL 101 mEq/L 12/03/2014 Comp Metabolic Paj324 CO2 22.0 mEq/L 12/03/2014 Comp Metabolic Syk003 ANION GAP 13 12/03/2014 Comp Metabolic Cpc730 GLUCOSE 123 mg/dL 12/03/2014 Comp Metabolic Olg235 Creat 0.7 mg/dL 12/03/2014 Comp Metabolic Tut661 eGFR 97 ml/min/1.73m2 12/03/2014 Comp Metabolic Rvi556 BUN 10 mg/dL 12/03/2014 Comp Metabolic Tdo307 B/C Ratio 14.7 Ratio 12/03/2014 Comp Metabolic Wvm219 CALCIUM 9.2 mg/dL 12/03/2014 Comp Metabolic Kjm015 ALK PHOS 88 U/L 12/03/2014 Comp Metabolic Hcc493 AST(SGOT) 18 U/L 12/03/2014 Comp Metabolic Fxw471 ALT(SGPT) 17 U/L 12/03/2014 Comp Metabolic Ovw512 BILI T 0.5 mg/dL 12/03/2014 Comp Metabolic Zts724 ALBUMIN 3.9 g/dL 12/03/2014 Comp Metabolic Rsr803 TPRO 6.8 g/dL 12/03/2014 Comp Metabolic Dnk188 GLOB 2.9 g/dL 12/03/2014 Comp Metabolic Kql400 A/G Ratio 1.3 Ratio 12/03/2014 Comp Metabolic Idx379 Osmo 265 mOsmo 12/03/2014 Tsh Ord6 hTSH II 1.13 uIU/mL 12/03/2014 D-Dimer D-DIMER 168 NG/ML 12/03/2014 D-Dimer 862014 COMMENT 12/03/2014 Cbc With Differential Ord2 WBC [...] Procedure Codes Date THER/PROPH/DIAG INJ SC/IM CPT-4: 28787 06/27/2017 ROCEPHIN, PER 250 MG CPT-4: J0696 06/27/2017 IMMUNIZATION ADMIN CPT -4: 63903 03/16/2017 FLU VAC NO PRSV 4 FLETCHER 3 YRS+ CPT-4: 15872 03/16/2017 Pneumococcal Polysaccharide Vaccine, 23-Valent, Ad CPT-4: 79567 03/16/2017 IMMUNIZATION ADMIN EACH ADD CPT-4: 72310 03/16/2017 TRIAMCINOLONE ACET INJ NOS CPT-4: J3301 01/11/2017 TRIAMCINOLONE ACET INJ NOS CPT-4: J3301 02/28/2016 Vital Signs Date Vital 04/17/2018 Blood Pressure 1: 120/64 Code : 8480-6 BMI: 37.8 Code : 59595-2 Heart Rate 1 : 84 bpm Height: 5'6" SpO2: 96% Weight: 234 lbs 03/14/2018 Blood Pressure 1: 140/82 Code : 8480-6 BMI: 37.8 Code : 04824-4 Heart Rate 1 : 85 bpm Height: 5'6" SpO2: 98% Weight: 234 lbs 02/27/2018 Blood Pressure 1: 142/68 Code : 8480-6 BMI: 36.5 Code : 79686-0 Heart Rate 1 : 84 bpm Height: 5'6" SpO2: 97% Weight: 226 lbs 12/19/2017 Blood Pressure 1: 130/86 Code : 8480-6 BMI: 35.7 Code : 94122-8 Heart Rate 1 : 94 bpm Height: 5'6" Weight: 221 lbs 12/04/2017 Blood Pressure 1: 138/78 Code : 8480-6 BMI: 36.6 Code : 12993-5 Heart Rate 1 : 94 bpm Height: 5'6" SpO2: 98% Weight: 227 lbs 11/20/2017 Weight: 233 lbs 09/10/2017 Blood Pressure 1: 132/86 Code : 8480-6 Heart Rate 1: 86 bpm Height: Weight: 08/14/2017 Blood Pressure 1: 120/74 Code : 8480-6 BMI: 33.9 Code : 44923-6 Heart Rate 1 : 92 bpm Height: 5'6" SpO2: 94% Weight: 210 lbs 07/31/2017 Blood Pressure 1: 140/80 Code : 8480-6 BMI: 33.9 Code : 33372-4 Heart Rate 1 : 96 bpm Height: 5'6" SpO2: 97% Weight: 210 lbs 06/27/2017 Blood Pressure 1: 128/80 Code : 8480-6 BMI: 33.9 Code : 94038-0 Heart Rate 1 : 85 bpm Height: [...] Code : 8480-6 BMI: 39.9 Code : 64929-5 Heart Rate 1 : 79 bpm Height: 5'6" SpO2: 97% Weight: 247 lbs 01/26/2017 Blood Pressure 1: 13274 Code : 8480-6 BMI: 37.8 Code : 88612-3 Heart Rate 1 : 74 bpm Height: 5'6" SpO2: 97% Weight: 234 lbs 01/11/2017 Blood Pressure 1: 118/68 Code : 8480-6 BMI: 38.7 Code : 52771-9 Heart Rate 1 : 91 bpm Height: 5'6" SpO2: 96% Weight: 240 lbs 11/30/2016 Blood Pressure 1: 132/76 Code : 8480-6 BMI: 38.3 Code : 58704-3 Heart Rate 1 : 71 bpm Height: 5'6" SpO2: 92% Weight: 237 lbs 09/28/2016 Blood Pressure 1: 122/72 Code : 8480-6 BMI: 39.1 Code : 83333-2 Heart Rate 1 : 88 bpm Height: 5'6" SpO2: 94% Weight: 242 lbs 08/24/2016 Blood Pressure 1: 130/87 Code : 8480-6 BMI: 41.5 Code : 37607-8 Heart Rate 1 : 95 bpm Height: 5'6" Respiratory Rate: 16 bpm SpO2: 98% Temperature: 36.9 (C) / 98.5 (F ) Weight: 257 lbs 07/13/2016 Blood Pressure 1: 132/84 Code : 8480-6 BMI: 42.0 Code : 96173-9 Heart Rate 1 : 73 bpm Height: 5'6" SpO2: 97% Weight: 260 lbs 05/19/2016 Blood Pressure 1: 138/76 Code : 8480-6 BMI: 40.8 Code : 35412-2 Heart Rate 1 : 80 bpm Height: 5'6" SpO2: 98% Weight: 253 lbs 03/16/2016 Blood Pressure 1: 122/70 Code : 8480-6 BMI: 40.4 Code : 64077-0 Heart Rate 1 : 72 bpm Height: 5'6" SpO2: 98% Weight: 250 lbs 02/28/2016 Blood Pressure 1: 136/86 Code : 8480-6 BMI: 40.2 Code : 82372-1 Heart Rate 1 : 87 bpm Height: 5'6" SpO2: 96% Temperature: 36.3 (C) / 97.3 (F) Weight: 249 lbs 01/13/2016 Blood Pressure 1: 120/76 Code : 8480-6 BMI: 40.4 Code : 06112-1 Heart Rate 1 : 68 bpm Height: 5'6" SpO2: 97% Weight: 250 lbs 09/27/2015 Blood Pressure 1: 112/70 Code : 8480-6 BMI: 38.4 Code : 77094-9 Heart Rate 1 : 76 bpm Height: 5'6" SpO2: 98% Weight: 238 lbs 08/30/2015 Blood Pressure 1: 144/82 Code : 8480-6 BMI: 39.5 Code : 05803-0 Heart Rate 1 : 82 bpm Height: 5'6" SpO2: 97% Weight: 245 lbs 08/16/2015 Blood Pressure 1: 140/72 Code : 8480-6 BMI: 38.9 Code : 72648-0 Heart Rate 1 : 72 bpm Height: 5'6" SpO2: 97% Weight: 241 lbs 07/15/2015 Blood Pressure 1: 128/80 Code : 8480-6 BMI: 39.3 Code : 88905-7 Heart Rate 1 : 86 bpm Height: 5'6" SpO2: 98% Weight: 243 lbs 8 oz 06/16/2015 Blood Pressure 1: 146/86 Code : 8480-6 BMI: 39.6 Code : 87433-7 Heart Rate 1 : 76 bpm Height: 5'6" SpO2: 97% Weight: 245 lbs 8 oz 04/02/2015 Blood Pressure 1: 132/86 Code : 8480-6 BMI: 40.7 Code : 24424-0 Heart Rate 1 : 94 bpm Height: 5'6" SpO2: 98% Weight: 252 lbs 12/02/2014 Blood Pressure 1: 122/90 Code : 8480-6 BMI: 41.6 Code : 71418-1 Heart Rate 1 : 77 bpm Height: [...] E11.9] [facility] CPT-4: 16044 04/17/2018 [id number] EST. PATIENT, LEVEL III Diagnosis: Localized edema[ICD10: R60.0] Diagnosis: Essential (primary) hypertension[ICD10: I10] [facility] CPT-4: 86290 03/14/2018 [id number] EST. PATIENT, LEVEL III Diagnosis: Pain in left knee[ICD10: M25.562] Diagnosis: Other obesity due to excess calories[ICD10: E66.09] Diagnosis: Other insomnia[ICD10: G47.09] Diagnosis: Generalized anxiety disorder[ICD10: F41.1] Petra Trejo MD, [facility] CPT-4: 92475 02/27/2018 ([id number]) Miscellaneous no charge Diagnosis: Other obesity due to excess calories[ICD10: E66.09] Heidy Trejo MD, [facility] CPT-4: 42341 12/19/2017 [id number] EST. PATIENT, LEVEL III Diagnosis: Pain in right foot[ICD10: M79.671] Diagnosis: Pain in right ankle and joints of right foot[ICD10: M25.571] Petra Trejo MD , [facility] CPT-4: 15037 12/04/2017 [id number] EST. PATIENT, LEVEL III Diagnosis: Pain in left knee[ICD10: M25.562] Diagnosis: Type 2 diabetes mellitus without complications[ICD10: E11.9] Diagnosis: Other obesity due to excess calories[ICD10: E66.09] Petra Trejo MD, [facility] CPT-4: 79470 11/20/2017 [id number] EST. PATIENT, LEVEL III Diagnosis: Pain in left knee[ICD10: M25.562] Petra Trejo MD, [facility] CPT -4: 93303 09/10/2017 [id number] EST. PATIENT, LEVEL III Diagnosis: Encounter for follow-up examination after completed treatment for conditions other than malignant neoplasm[ICD10: Z09] Diagnosis: Pain in left knee[ICD10: M25.562] Petra Trejo MD, [facility] CPT -4: 56028 08/14/2017 28699 EST. PATIENT, LEVEL III Diagnosis: Pain in left knee[ICD10: M25.562] Petra Trejo MD, [facility] CPT -4: 88288 07/31/2017 06953 EST. PATIENT, LEVEL III Diagnosis: Acute laryngopharyngitis[ICD10: J06.0] Diagnosis: Other allergic rhinitis[ICD10: J30.89] Petra Trejo MD, [facility] CPT-4: 87023 06/27/2017 39383 EST. PATIENT, LEVEL III Diagnosis: Ganglion, left hand[ICD10: M67.442] Diagnosis: Essential (primary) hypertension[ICD10: I10] Diagnosis: Generalized anxiety disorder[ICD10: F41.1] Diagnosis: Other insomnia[ICD10: G47.09] Petra Trejo MD, [facility] CPT-4 : 73449 05/29/2017 50490 EST. PATIENT, LEVEL III Diagnosis: Essential (primary) hypertension[ICD10: I10] Diagnosis: Palpitations[ICD10: R00.2] Diagnosis: Generalized anxiety disorder[ICD10: F41.1] Petra Trejo MD, [facility] CPT-4: 01036 05/21/2017 11025 EST. PATIENT, LEVEL III Diagnosis: Pain in right foot[ICD10: M79.671] Petra Trejo MD, [facility] CPT-4: 04063 04/20/2017 21637 EST. PATIENT, LEVEL IV Diagnosis: Other insomnia[ICD10: G47.09] Diagnosis: Other skin changes[ICD10: R23.8] Petra Trejo MD, [facility] CPT- 4: 37833 01/26/2017 67335 EST. PATIENT, LEVEL IV Diagnosis: Acute bronchitis due to other specified organisms[ICD10: J20.8] Petra Trejo MD, [facility] CPT-4: 22507 01/11/2017 ([id number]) 47210 EST. PATIENT, LEVEL IV Diagnosis: Essential (primary) hypertension[ICD10: I10] Diagnosis: Other insomnia[ICD10: G47.09] Diagnosis: Primary generalized (osteo)arthritis[ICD10: M15.0] Diagnosis: Other obesity due to excess calories[ICD10: E66.09] Claudette Trejo MD, [facility] CPT-4: 55759 11/30/2016 ([id number]) 97138 EST. PATIENT, LEVEL III Diagnosis: Other obesity due to excess calories[ICD10: E66.09] Diagnosis: Other insomnia[ICD10: G47.09] Diagnosis: Generalized anxiety disorder[ICD10: F41.1] Claudette Trejo MD, [facility] CPT-4: 57893 09/28/2016 ([id number]) 22188 EST. PATIENT, LEVEL IV Diagnosis: Generalized anxiety disorder[ICD10: F41.1] Diagnosis: Major depressive disorder, recurrent, mild[ICD10: F33.0] Diagnosis: Other obesity due to excess calories[ICD10: E66.09] Diagnosis: Other insomnia[ICD10: G47.09] Claudette Trejo MD, [facility] CPT-4: 01870 08/24/2016 ([id number]) 00057 EST. PATIENT, LEVEL III Diagnosis: Other obesity due to excess calories[ICD10: E66.09] Diagnosis: Major depressive disorder, recurrent, moderate[ICD10: F33.1] Diagnosis: Low back pain[ICD10: M54.5] Heidy Trejo MD, [facility] CPT- 4: 85345 07/13/2016 60267 EST. PATIENT, LEVEL IV Diagnosis: Other muscle spasm[ICD10: M62.838] Diagnosis: Generalized anxiety disorder[ICD10: F41.1] Diagnosis: Major depressive disorder, recurrent, moderate[ICD10: F33.1] Diagnosis: Other insomnia[ICD10: G47.09] Petra Trejo MD, [facility] CPT-4 : 82043 05/19/2016 ([id number]) 39767 EST. PATIENT, LEVEL III Diagnosis: Generalized anxiety disorder[ICD10: F41.1] Diagnosis: Major depressive disorder, recurrent, moderate[ICD10: F33.1] Heidy Trejo MD, [facility] CPT-4: 39184 03/16/2016 ([id number]) 35409 EST. PATIENT, LEVEL III Diagnosis: Streptococcal pharyngitis[ICD10: J02.0] Claudette Trejo MD, [facility] CPT-4: 77819 02/28/2016 ([id number]) 62116 EST. PATIENT, LEVEL III Diagnosis: Generalized anxiety disorder[ICD10: F41.1] Diagnosis: Other obesity due to excess calories[ICD10: E66.09] Heidy Trejo MD, [facility] CPT-4: 73006 01/13/2016 ([id number]) 32131 EST. PATIENT, LEVEL III Diagnosis: Generalized anxiety disorder[ICD10: F41.1] Diagnosis: Major depressive disorder, recurrent, unspecified[ICD10: F33.9] Heidy Trejo MD, [facility] CPT-4: 97114 09/27/2015 45619 EST. PATIENT, LEVEL IV Diagnosis: Chronic pain syndrome[ICD10: G89.4] Diagnosis: Other obesity due to excess calories[ICD10: E66.09] Diagnosis: Essential (primary) hypertension[ICD10: I10] Diagnosis: Generalized anxiety disorder[ICD10: F41.1] Diagnosis: Excessive and frequent menstruation with regular cycle[ICD10: N92.0] Diagnosis: Pain in right knee[ICD10: M25.561] Petra Trejo MD, [facility] CPT-4: 15478 08/30/2015 00890 EST. PATIENT, LEVEL IV Diagnosis: Palpitations[ICD10: R00.2] Diagnosis: Other obesity due to excess calories[ICD10: E66.09] Petra Trejo MD, [facility] CPT-4: 83632 08/16/2015 ([id number]) 99013 EST. PATIENT, LEVEL IV Diagnosis: Pain in right knee[ICD10: M25.561] Diagnosis: Primary generalized (osteo)arthritis[ICD10: M15.0] Diagnosis: Acute maxillary sinusitis, unspecified[ICD10: J01.00] Heidy Trejo MD, [facility] CPT-4: 96807 07/15/2015 ([id number]) 67029 EST. PATIENT, LEVEL IV Diagnosis: Primary generalized (osteo)arthritis[ICD10: M15.0] Diagnosis: Restless legs syndrome[ICD10: G25.81] Diagnosis: Chronic pain syndrome[ICD10: G89.4] Heidy Trejo MD, [facility] CPT-4: 26687 06/16/2015 ([id number]) 67435 EST. PATIENT, LEVEL III Diagnosis: Primary generalized (osteo)arthritis[ICD10: M15.0] Diagnosis: Varicose veins of bilateral lower extremities with pain[ICD10: I83.813] Claudette Trejo MD, [facility] CPT-4: 48266 ([id number]) OFFICE VISIT, NEW - LEVEL 3 Diagnosis: Osteoarthritis[ICD9: 715.90] Diagnosis: ABNORMAL WEIGHT GAIN[ICD9: 783.1] Diagnosis: Superficial thrombophlebitis[ICD9: 451.9] [facility] CPT-4: 91458 12/02/2014 Plan of Care Planned Activity Notes [...] allow for greater blood glucose control. 04/17/2018 Patient Education: Patient Medication Summary Completed [...] peripheral edema. 03/14/2018 Appointment: Petra Rivas WPtel: [address] [place], [place] [address] (15 min) Moderate 03/14/2018 Patient Education: Patient [...] to ortho 02/27/2018 Appointment: [facility] ([facility] Complex 02/27/2018 Patient Education: [...] not improve. 12/04/2017 Appointment: [facility] [phone] [facility] (15 min) Moderate 12/04/2017 Patient Education: [...] glucose control. 11/20/2017 Appointment: Petra Rivas WPtel: [facility] [place] (15 min) Moderate 11/20/2017 Patient [...] or does not improve. 09/10/2017 Appointment: Petra iRvas WPtel: [facility] [place] (15 min) Moderate 09/10/2017 Patient [...] improve. 08/14/2017 Appointment: [facility] [phone] [facility] [place] (30 min) Complex 08/14/2017 Patient Education: Patient Medication Summary Completed 08/14/2017 Appointment: [facility] [phone] [facility] [place] (15 min) Moderate 08/01/2017 Visit Plan: Knee pain - pt is to use RICE - Rest, Ice, Compression, Elevation - pt is to use crutches as directed - The pt is to use prn antiinflammatories to manage acute pain. The patient is to call the office if the pain is worsening or does not improve. 07/31/2017 Appointment: Petra Rivas WPtel: [facility] (30 min) Complex 07/31/2017 Patient Education: Patient Medication Summary Completed 07/31/2017 Care Plan: X-RAY EXAM OF KNEE 3 LOINC : 10770-9 Pending 07/31/2017 Visit Plan: URI - Pt [...] allergy spray. 06/27/2017 Appointment: Petra Rivas WPtel: [facility] (15 min) Moderate 06/27/2017 Patient Education: Patient Medication Summary Completed 06/27/2017 Referral: Jignesh Quinn [facility] Patient informed. Referral info faxed. [...] Dr. Quinn 05/29/2017 Appointment: Petra Rivas WPtel: [facility] [place] (15 min) Moderate 05/29/2017 Patient Education: Patient Medication Summary Completed 05/29/2017 Care Plan: Referral Order SNOMED-CT : [id number] Pending 05/29/2017 Appointment: Petra Rivas WPtel: [facility] [place] (15 min) Moderate 05/28/2017 Visit [...] acute concerns. 05/21/2017 Appointment: Petra Rivas WPtel: [facility] [place] (15 min) Moderate 05/21/2017 Patient Education: Patient Medication Summary Completed 05/21/2017 Visit Plan: Right heel pain - will send RX, pt is to do stretches as directed - The pt is to use prn antiinflammatories to manage acute pain. The patient is to call the office if the pain is worsening or does not improve. 04/20/2017 Appointment: Petra Rivas WPtel: [facility] [place] (30 min) Complex 04/20/2017 Patient Education: Patient Medication Summary Completed 04/20/2017 Appointment: Petra Rivas WPtel: [facility] (30 min) Complex 03/29/2017 Patient Education: Patient Medication Summary Completed 03/16/2017 Referral: Maycol Quijano Referral Initiated 02/08/2017 Care Plan: Referral Order SNOMED-CT : [id number] Pending 01/28/2017 Visit Plan: Insomnia - Pt [...] or concerns. 01/26/2017 Appointment: Petra Rivas WPtel: [facility] (30 min) Complex 01/26/2017 Patient Education: [...] acutely worsen. 01/11/2017 Appointment: Petra Rivas WPtel: [facility] (15 min) Moderate 01/11/2017 Patient Education: [...] and instructed on use. 11/30/2016 Appointment: Claudette aSvage WPtel: [address] [place], [place] [phone] (15 min) Moderate 11/30/2016 Patient Education: Patient Medication Summary Completed 11/30/2016 Patient Education: Obesity Completed 11/30/2016 Care Plan: BMI Above normal followup SELF-MGMT EDUC & TRAIN 1 PT Pending 2016 Visit Plan: Tnllymz-cdlmoapdyh-bjfsbcuq with increase in cymbalta-no changes Insomnia-RX for belsomra provided and instructed on use Obesity-patient down 15#-no changes-continue diet/exercise-follow up in 2 months 09/28/2016 Appointment: Claudette Savage WPtel: [address] [place], [place] [phone] (15 min) Moderate 09/28/2016 Patient Education: Patient Medication Summary Completed 09/28/2016 Patient Education: Obesity Completed 09/28/2016 Care Plan: BMI Above normal followup SELF-MGMT EDUC & TRAIN 1 PT Pending 2016 Visit Plan: Wzwrxsx-ymxgsnkhic-tajghrns-increase cymbalta to 60mg daily. Increase xanax as [...] for insomnia/anxiety 08/24/2016 Appointment: Claudette Savage WPtel: [phone] (15 min) Moderate 08/24/2016 Patient Education: Patient [...] not improving. 07/13/2016 Appointment: Heidy Trejo WPtel: [phone] [facility] (15 min) Moderate 07/13/2016 Patient Education: [...] time insomnia. 05/19/2016 Appointment: [phone] [facility] (30 min) Complex 05/19/2016 Patient Education: [...] patient. 03/16/2016 Appointment: Heidy Trejo WPtel: [phone] [facility] [place] (15 min) Moderate 03/16/2016 Patient Education: Patient [...] swab. 02/28/2016 Appointment: Claudette Savage WPtel: [phone] [facility] [place] (10 min) Simple 02/28/2016 Patient [...] lexapro 01/13/2016 [phone] [place] (15 min) Moderate 01/13/2016 Patient [...] 09/27/2015 Care Plan: Referral Order SNOMED-CT : [id number] Pending 08/31/2015 Visit Plan: Anxiety - the [...] pain symptoms. 07/15/2015 Appointment: Heidy Trejo WPtel: [facility] (15 min) Moderate 07/15/2015 Patient Education: Patient [...] clinic 04/02/2015 Appointment: Claudette Savage WPtel: [phone] [facility] [place] (15 min) Moderate 04/02/2015 Patient [...] Summary Completed 12/02/2014 Referral: Belle Hoffman WPtel: [address] [place], [place] [phone] they will call and set the appt with her Initiated Referral: Maycol Quijano Referral Initiated Referral: Belle Hoffman WPtel: [facility] Referral Initiated Referral: Jignesh Quinn [facility] [place] Referral Initiated Instructions Comment [...] 1 mg at night for anxiety . Qlhcbao-nwgnavegst-wxspahjr-increase cymbalta to 60mg daily. Increase xanax as [...] worsening or does not improve. BELSOMRA . Dyhxksj-idwkkotcxh-ztqkozeq with increase in cymbalta-no changes Insomnia-RX for [...]
--- OUTSIDE RECORDS SUMMARY | 2018-07-24 23:56 | XMS REPORT | CCD ---
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 Name Role Phone PP Unavailable CCM Unavailable Summary Purpose Interface Exchange Insurance Providers Payer name Policy type / Coverage type Covered libertarian ID Effective Begin Date Effective End Date [facility] Commercial Insurance [id number] Unknown Family history Brother Diagnosis Age At [...] Description Effective Dates Tobacco history SNOMED CT: 2714137 Quit less than 5 years ago 04/02/2015 Alcohol history Unknown occasionally drinks alcohol 04/02/2015 Marital status Unknown Manuel Vitale 12/02/2014 Number of children Unknown 3 12/02/2014 Allergies, Adverse Reactions, Alerts Substance Reaction Codes Entered Date Inactivated Date Status * NO KNOWN FOOD ALLERGIES Unknown 12/02/2014 No Inactive Date Active Penicillin Unknown 12/02/2014 No Inactive Date Active tramadol RxNorm: 89349 12/02/2014 No Inactive Date Active Past Medical History Illness Codes Condition Status Onset Date Resolved Date Essential (primary) hypertension ICD-9: 401.1 ICD-10: I10 Active 03/14/2018 Unknown Localized edema ICD-9 : 782.3 ICD-10: R60.0 Active 03/14/2018 Unknown Generalized anxiety disorder ICD-9: 300.02 ICD-10: F41.1 Active 08/24/2016 Unknown Other insomnia ICD-9: 327.09 ICD-10: G47.09 Active 05/18/2016 Unknown Other obesity due to excess calories ICD-9: 278.00 ICD-10: E66.09 Active 01/12/2016 Unknown Pain in left knee ICD- 9: 719.46 ICD-10: M25.562 Active 07/31/2017 Unknown Type 2 diabetes mellitus without complications ICD-9: 250.00 ICD-10: E11.9 Active 11/20/2017 Unknown Pain in right ankle and joints [...] ICD-9: 308.0 ICD-10: F41.1 Active 05/18/2016 Unknown Generalized anxiety disorder ICD-9: [...] 07/14/2015 Unknown Hypertension Unknown Active 09/28/2016 Unknown Major depressive disorder, recurrent, mild ICD-9: [...] hypertension ICD-9: 401.1 ICD-10: I10 03/14/2018 Active Localized edema ICD-9 : 782.3 ICD-10: R60.0 03/14/2018 Active Generalized anxiety disorder ICD-9: 300.02 ICD-10: F41.1 08/24/2016 Active Other insomnia ICD-9: 327.09 ICD-10: G47.09 05/18/2016 Active Other obesity due to excess calories ICD-9: 278.00 ICD-10: E66.09 01/12/2016 Active Pain in left knee ICD- 9: 719.46 ICD-10: M25.562 07/31/2017 Active Type 2 diabetes mellitus without complications ICD-9: 250.00 ICD-10: E11.9 11/20/2017 Active Pain in right ankle and joints [...] disorder ICD-9: 308.0 ICD-10: F41.1 05/18/2016 Active Generalized anxiety disorder ICD-9: 300.00 [...] M15.0 07/14/2015 Active Hypertension Unknown 09/28/2016 Active Major depressive disorder, recurrent, mild ICD-9: [...] Fill Instructions Zorvolex 35 mg capsule RxNorm: 2986963 TAKE 1 CAPSULE BY MOUTH THREE (3) TIMES DAILY 03/27/2018 04/25/2018 Active gabapentin 300 mg capsule RxNorm: 522402 1 CAPSULE(S) PO TID 05/23/2018 Active hydrochlorothiazide 25 mg tablet RxNorm: 611976 1 Tablet(s) PO daily 03/14/2018 04/12/2018 Active Cymbalta 60 mg capsule,delayed release RxNorm: 691147 1 Capsule(s) PO daily TAKE 1 CAPSULE BY MOUTH DAILY 02/27/20182019 Active Victoza 2-Marek 0.6 mg/0.1 mL (18 mg/3 mL) subcutaneous pen injector RxNorm: 003721 Milligram(s) INJECT 1.8 MG SUB-Q ONCE DAILY 02/27/2018 08/20/2019 Active qty sufficient Xanax 1 mg tablet RxNorm: 433445 1-2 Tablet(s) PO QHS as needed insomnia 02/27/2018 05/27/2018 Active meloxicam 7.5 mg tablet RxNorm: 585098 1 Tablet(s) PO daily 1 TABLET(S) PO DAILY 02/27/2018 08/25/2018 Active atorvastatin 20 mg tablet RxNorm: 069940 1 Tablet(s) PO daily 02/27/2018 05/22/2019 Active Ambien 10 mg tablet RxNorm: 083559 1 Tablet(s) PO QHS as needed insomnia 02/27/2018 05/26/2018 Active Cymbalta 60 mg capsule,delayed release RxNorm: 976119 TAKE 1 CAPSULE BY MOUTH DAILY 02/27/2018 02/26/2018 Inactive gabapentin 300 mg capsule RxNorm: 184712 1 Capsule(s) PO TID 03/24/2018 Inactive atorvastatin 20 mg tablet RxNorm: 711180 1 Tablet(s) PO daily 02/05/2018 02/26/2018 Inactive atorvastatin 20 mg tablet RxNorm: 886931 1 Tablet(s) PO daily 02/05/2018 02/04/2018 Inactive meloxicam 7.5 mg tablet RxNorm: 389144 1 TABLET(S) PO DAILY 02/26/2018 Inactive oxycodone 15 mg tablet RxNorm: 9691968 1 Tablet(s) PO QID as needed 01/07/2018 02/19/2018 Inactive lactulose 20 gram/30 mL oral solution RxNorm: 822978 15-30 Milliliter(s) PO BID as needed 12/31/2017 02/20/2018 Inactive meloxicam 7.5 mg tablet RxNorm: 252947 1 TABLET(S) PO DAILY 06/201701/31/2018 Inactive Zorvolex 35 mg capsule RxNorm: 7511406 1 Capsule(s) PO TID 06/201702/20/2018 Inactive Ambien 10 mg tablet RxNorm: 885655 1 Tablet(s) PO QHS as needed insomnia 12/04/2017 02/26/2018 Inactive oxycodone 15 mg tablet RxNorm: 5214370 1 Tablet(s) PO QID as needed 12/04/2017 01/06/2018 Inactive prednisone 20 mg tablet RxNorm: 441489 2 Tablet(s) PO daily 12/08/2017 Inactive Victoza 2-Marek 0.6 mg/0.1 mL (18 mg/3 mL) subcutaneous pen injector RxNorm: 392390 Milligram(s) INJECT 1.8 MG SUB-Q ONCE DAILY 11/20/2017 02/26/2018 Inactive meloxicam 7.5 mg tablet RxNorm: 642178 1 Tablet(s) PO daily 02/201812/12/2017 Inactive phentermine 37.5 mg tablet RxNorm: 757448 1 Tablet(s) PO daily 11/20/2017 12/19/2017 Inactive Ambien 10 mg tablet RxNorm: 694825 1 Tablet(s) PO QHS as needed insomnia 11/20/2017 12/18/2017 Inactive Xanax 1 mg tablet RxNorm: 332620 1.5 Tablet(s) PO QHS as needed insomnia 11/20/2017 02/26/2018 Inactive hydrocodone 7.5 mg-acetaminophen 325 mg tablet RxNorm: 568732 1 Tablet(s) PO TID as needed 11/16/2017 01/06/2018 Inactive Cymbalta 60 mg capsule,delayed release RxNorm: 672798 TAKE 1 CAPSULE BY MOUTH DAILY 11/02/2017 02/26/2018 Inactive Xanax 1 mg tablet RxNorm: 261477 1 Tablet(s) PO BID PRN as needed anxiety 10/04/2017 11/19/2017 Inactive Victoza 2-Marek 0.6 mg/0.1 mL (18 mg/3 mL) subcutaneous pen injector RxNorm: 730448 INJECT 1.8 MG SUB-Q ONCE DAILY 10/04/2017 11/19/2017 Inactive hydrocodone 7.5 mg-acetaminophen 325 mg tablet RxNorm: 731722 1 Tablet(s) PO TID as needed 09/17/2017 11/15/2017 Inactive hydrocodone 7.5 mg-acetaminophen 325 mg tablet RxNorm: 950384 1 Tablet(s) PO TID as needed 09/10/2017 09/16/2017 Inactive prednisone 10 mg tablet RxNorm: 133312 Tablet(s) PO 09/10/2017 11/13/2017 Inactive 6, 5,4,3,2,1 Zorvolex 35 mg capsule RxNorm: 4453770 1 Capsule(s) PO TID 11/13/2017 Inactive Ambien 10 mg tablet RxNorm: 500728 1 Tablet(s) PO QHS as needed insomnia 08/29/2017 11/19/2017 Inactive Zorvolex 35 mg capsule RxNorm: 1311990 1 Capsule(s) PO TID 09/06/2017 Inactive Zorvolex 35 mg capsule RxNorm: 3660875 1 Capsule(s) PO TID 06/201708/27/2017 Inactive Zorvolex 35 mg capsule RxNorm: 3013168 1 Capsule(s) PO TID 06/201708/12/2017 Inactive prednisone 20 mg tablet RxNorm: 164072 2 Tablet(s) PO daily 08/04/2017 Inactive hydrocodone 7.5 mg-acetaminophen 325 mg tablet RxNorm: 141636 1 Tablet(s) PO TID as needed 07/31/2017 09/09/2017 Inactive Zorvolex 35 mg capsule RxNorm: 3760843 1 Capsule(s) PO TID as needed 07/31/2017 11/13/2017 Inactive ceftriaxone 500 mg solution for injection RxNorm: 3965548 1 Milliliter(s) Inj 06/27/2017 06/27/2017 Inactive Keflex 500 mg capsule RxNorm: 185622 1 Capsule(s) PO TID 201707/03/2017 Inactive Ambien 10 mg tablet RxNorm: 088343 1 Tablet(s) PO daily 201708/25/2017 Inactive tramadol 50 mg tablet RxNorm: 332638 1 Tablet(s) PO TID as needed 05/29/2017 07/27/2017 Inactive Xanax 1 mg tablet RxNorm: 350734 1 Tablet(s) PO BID PRN as needed anxiety 05/21/2017 10/03/2017 Inactive alprazolam 1 mg tablet RxNorm: 590528 1 Tablet(s) PO BID as needed 05/21/2017 06/19/2017 Inactive Celebrex 200 mg capsule RxNorm: 822059 1 CAPSULE(S) PO BID 11/05/2017 Inactive prednisone 20 mg tablet RxNorm: 256344 2 Tablet(s) PO daily 12/201604/24/2017 Inactive Ambien 10 mg tablet RxNorm: 196931 Tablet(s) PO 04/20/2017 05/28/2017 Inactive hydrocodone 5 mg-acetaminophen 325 mg tablet RxNorm: 549134 1 Tablet(s) PO QID as needed 04/20/2017 08/01/2017 Inactive Cymbalta 60 mg capsule,delayed release RxNorm: 892609 1 Capsule(s) PO daily 04/20/2017 02/26/2018 Inactive Victoza 2-Marek 0.6 mg/0.1 mL (18 mg/3 mL) subcutaneous pen injector RxNorm: 817114 INJECT 1.8 MG SUB-Q ONCE DAILY 03/26/2017 09/21/2017 Inactive diazepam 2 mg tablet RxNorm: 594122 1 Tablet(s) PO QHS as needed insomnia 01/28/2017 05/07/2017 Inactive Victoza 2-Marek 0.6 mg/0.1 mL (18 mg/3 mL) subcutaneous pen injector RxNorm: 036573 1.8 Milligram(s) SQ daily 01/26/201703/25 Inactive dispense quantity sufficient Tussionex Pennkinetic ER 10 mg-8 mg/5 mL suspension, extended release RxNorm: 0467441 5 Milliliter(s) PO BID 01/11/2017 01/15/2017 Inactive Xanax 1 mg tablet RxNorm: 909459 1 Tablet(s) PO BID PRN as needed anxiety 01/11/2017 05/20/2017 Inactive Zithromax Z-Marek 250 mg tablet RxNorm: 306267 1 Tablet(s) PO UD 01/11/2017 01/15/2017 Inactive zpack albuterol sulfate 2.5 mg/3 mL (0.083 %) solution for nebulization RxNorm: 250212 3 Milliliter(s) INH UD 01/11/201707/2017 Inactive prednisone 20 mg tablet RxNorm: 079430 2 Tablet(s) PO daily 01/15/2017 Inactive Kenalog 40 mg/mL suspension for injection RxNorm: 6870219 1.5 Milliliter(s) Inj 01/11/2017 01/11/2017 Inactive Celebrex 200 mg capsule RxNorm: 058275 1 Capsule(s) PO BID 02/27/2017 Inactive Ambien 5 mg tablet RxNorm: 891101 1 Tablet(s) PO HS PRN 11/3008/07/2017 Inactive trazodone 50 mg tablet RxNorm: 367326 1/2 to 1 Tablet(s) PO QHS 10/13/2016 10/12/2016 Inactive trazodone 50 mg tablet RxNorm: 452238 1/2 to 1 Tablet(s) PO QHS 10/13/2016 11/29/2016 Inactive Belsomra 10 mg tablet RxNorm: 7319089 1 Tablet(s) PO QHS 201611/29/2016 Inactive may increase to 20mg if 10mg not effective Cymbalta 60 mg capsule,delayed release RxNorm: 068756 1 Capsule(s) PO daily 08/24/2016 03/21/2017 Inactive Xanax 1 mg tablet RxNorm: 618940 1 Tablet(s) PO BID PRN as needed anxiety 08/24/2016 01/10/2017 Inactive Victoza 2-Marek 0.6 mg/0.1 mL (18 mg/3 mL) subcutaneous pen injector RxNorm: 194209 Milligram(s) SQ 08/24/2016 08/23/2016 Inactive Victoza 2-Marek 0.6 mg/0.1 mL (18 mg/3 mL) subcutaneous pen injector RxNorm: 715906 1.8 Milligram(s) SQ 08/24/2016 01/25/2017 Inactive Vitamin D2 50,000 unit capsule RxNorm: 752436 1 Capsule(s) PO QW 07/13/2016 10/10/2016 Inactive Cymbalta 30 mg capsule,delayed release RxNorm: 849236 1 Capsule(s) PO daily 07/13/2016 08/23/2016 Inactive Belviq XR 20 mg tablet,extended release RxNorm: 2233482 1 Tablet(s) PO daily 05/30/2016 05/29/2016 Inactive prednisone 20 mg tablet RxNorm: 703389 2 Tablet(s) PO daily 06/03/2016 Inactive prednisone 20 mg tablet RxNorm: 172923 2 Tablet(s) PO daily 05/29/2016 Inactive Belviq XR 20 mg tablet,extended release RxNorm: 3760415 1 Tablet(s) PO daily 05/30/2016 06/28/2016 Inactive cyclobenzaprine 5 mg tablet RxNorm: 387286 1-2 Tablet(s) PO TID as needed 05/19/2016 05/23/2016 Inactive metoprolol succinate ER 25 mg tablet,extended release 24 hr RxNorm: 195826 1 Tablet(s) PO QPM 04/10/2016 04/13/2016 Inactive metoprolol succinate ER 25 mg tablet,extended release 24 hr RxNorm: 121166 1 Tablet(s) PO QPM 04/10/2016 04/09/2016 Inactive escitalopram 10 mg tablet RxNorm: 710604 1 Tablet(s) PO daily 03/16/2016 07/12/2016 Inactive estradiol 1 mg tablet RxNorm: 393320 1 Tablet(s) PO every other day 03/16/2016 05/15/2016 Inactive Kenalog 40 mg/mL suspension for injection RxNorm: 5361203 Milliliter(s) Inj 02/28/2016 02/28/2016 Inactive Zithromax Z-Marek 250 mg tablet RxNorm: 357006 1 Tablet(s) PO UD 02/28/2016 03/03/2016 Inactive zpack Lexapro 10 mg tablet RxNorm: 600490 1 Tablet(s) PO daily 201502/27/2016 Inactive Lexapro 10 mg tablet RxNorm: 245847 1 Tablet(s) PO daily 201509/26/2015 Inactive Vimovo 500 mg-20 mg tablet,immediate and delay release RxNorm: 417311 1 Tablet(s) PO BID as needed for pain 08/30/201509/25 Inactive azithromycin 250 mg tablet RxNorm: 959782 1 Tablet(s) PO UD 2 pills on day #1, then one pill daily x 4 days 07/15/2015 Inactive hydrocodone 10 mg-acetaminophen 325 mg tablet RxNorm: 612031 1 Tablet(s) PO QID 06/16/2015 01/12/2016 Inactive pramipexole 0.5 mg tablet RxNorm: 318532 1 Tablet(s) PO QPM 07/201507/14/2015 Inactive Celebrex 200 mg capsule RxNorm: 919275 1 Capsule(s) PO daily 05/02/2015 Inactive Celebrex 200 mg capsule RxNorm: 879220 1 Capsule(s) PO daily 01/12/2016 Inactive hydrocodone 7.5 mg-acetaminophen 325 mg tablet RxNorm: 310494 1 Tablet(s) PO Q6 PRN 05/03/2015 06/15/2015 Inactive Mobic 15 mg tablet RxNorm: 450257 1 Tablet(s) PO daily 201405/02/2015 Inactive hydrocodone 7.5 mg-acetaminophen 325 mg tablet RxNorm: 274020 1 Tablet(s) PO Q6 PRN 04/02/2015 05/02/2015 Inactive hydrocodone 5 mg-acetaminophen 325 mg tablet RxNorm: 552576 1 Tablet(s) PO Q6 as needed 12/11/2014 04/01/2015 Inactive Pennsaid 1.5 % topical drops RxNorm: 078481 40 Drop(s) TOP QID as needed 12/07/2014 02/04/2015 Inactive Apply 40 drops to each knee joint 4 times per day as needed for osteoarthritis pain estradiol 1 mg tablet RxNorm: 589972 1 Tablet(s) PO QHS No Start Date 03/15/2016 Inactive Xanax 0.5 mg tablet RxNorm: 298345 1 Tablet(s) PO Q6 as needed anxiety No Start Date 08/23/2016 Inactive Tylenol Extra Strength 500 mg tablet RxNorm: 686529 3 Tablet(s) PO BID after breakfast and after lunch No Start Date Inactive lactulose 20 gram/30 mL oral solution RxNorm: 735075 15-30 Milliliter(s) PO BID as needed No Start Date 12/30/2017 Inactive hydrocodone 5 mg-acetaminophen 325 mg tablet RxNorm: 713733 1 Tablet(s) PO Q6 as needed No Start Date 12/10/2014 Inactive Phenergan-Codeine syrup RxNorm: 5-10 Milliliter(s) PO QID as needed No Start Date 11/13/2017 Inactive ibuprofen 200 mg capsule RxNorm: 250761 4 Capsule(s) PO QID as needed No Start Date 04/01/2015 Inactive Medication Administered Medication Codes Instructions Start Date Status ceftriaxone 500 mg solution for injection RxNorm: 7645158 1Milliliter 06/27/2017 No longer Active Kenalog 40 mg/mL suspension for injection RxNorm: 9677675 1.5Milliliter 01/11/2017 No longer Active Kenalog 40 mg/mL suspension for injection RxNorm: 8207522 Milliliter 02/28/2016 No longer Active Immunizations Vaccine Codes Date Status Influenza CVX: 141 03/16/2017 completed Pneumococcal (Adult) CVX: 33 03/16/2017 completed Assessments Condition Codes Effective Dates Essential (primary) hypertension ICD-10: I10 ICD-9: 401.1 03/14/2018 Localized edema ICD-10: R60.0 ICD-9: 782.3 03/14/2018 [...] right foot ICD-10: M79.671 ICD-9: 729.5 12/04/2017 Type 2 diabetes mellitus without complications ICD-10: E11.9 ICD-9: 250.00 11/20/2017 Encounter for follow-up examination after completed treatment [...] anxiety disorder ICD-10: F41.1 ICD-9: 300.00 05/21/2017 Encounter for immunization ICD-10: Z23 ICD-9: V03.82 03/16/2017 VACCIN FOR INFLUENZA ICD-10: Z23 ICD-9: V04.81 03/16/2017 Other skin changes ICD-10: R23.8 ICD-9: 782.9 01/26/2017 Acute bronchitis due to other specified organisms ICD-10: J20.8 ICD-9: 466.0 01/11/2017 Primary generalized (osteo)arthritis ICD-10: M15.0 ICD-9: 715.09 11/30/2016 Major depressive disorder, recurrent, mild ICD-10: F33.0 [...] Visit Reason For Visit Effective Dates Notes edema 03/14/2018 weight gain/obesity 02/27/2018 foot pain [...] Code Item Item Code Result Date %Hba1C Qje306 % HbA1c 08784-8 6.7 % 11/20/2017 %Hba1C Wvh457 Gluc Ave 146 mg/dL 11/20/2017 Free T4 Mmy523 FREE T4 0.76 ng/dL 05/21/2017 Tsh Ord6 hTSH II 1.27 uIU/mL 05/21/2017 Comp Metabolic Bfa938 NA 140 mEq/L 05/21/2017 Comp Metabolic Vhn512 K 3.9 mEq/L 05/21/2017 Comp Metabolic Hfj728 CL 101 mEq/L 05/21/2017 Comp Metabolic Wsz520 CO2 28.0 mEq/L 05/21/2017 Comp Metabolic Tby883 ANION GAP 15 05/21/2017 Comp Metabolic Sti666 GLUCOSE 155 mg/dL 05/21/2017 Comp Metabolic Tje545 Creat 0.7 mg/dL 05/21/2017 Comp Metabolic Jgw840 eGFR 87 ml/min/1.73m2 05/21/2017 Comp Metabolic Yir354 BUN 16 mg/dL 05/21/2017 Comp Metabolic Utb929 B/C Ratio 21.6 Ratio 05/21/2017 Comp Metabolic Lio325 CALCIUM 9.4 mg/dL 05/21/2017 Comp Metabolic Yhl639 ALK PHOS 132 U/L 05/21/2017 Comp Metabolic Nqn949 AST(SGOT) 16 U/L 05/21/2017 Comp Metabolic Qqt390 ALT(SGPT) 20 U/L 05/21/2017 Comp Metabolic Ezj980 BILI T 0.4 mg/dL 05/21/2017 Comp Metabolic Tvs747 ALBUMIN 4.0 g/dL 05/21/2017 Comp Metabolic Brd412 TPRO 6.7 g/dL 05/21/2017 Comp Metabolic Ihl740 GLOB 2.7 g/dL 05/21/2017 Comp Metabolic Eni168 A/G Ratio 1.5 Ratio 05/21/2017 Comp Metabolic Yvn286 Osmo 284 mOsmo 05/21/2017 Cbc With Differential [...] 87.7 fl 05/21/2017 Cbc With Differential Ord2 Amite% 5.5 % 05/21/2017 Cbc With Differential Ord2 MCH 28.9 pg 05/21/2017 Cbc With Differential Ord2 Eos% [...] 2.65 K/ul 05/21/2017 Cbc With Differential Ord2 Amite ABS# 0.8 K/ul 05/21/2017 Cbc With Differential Ord2 Eos ABS# 0.1 K/ul 05/21/2017 Cbc With Differential Ord2 Baso ABS# 0.0 K/ul 05/21/2017 Estrogens Total 172876 ESTROGENS, TOTAL 54 pg/mL 05/24/2016 Magnesium Ord90 Mag 1.8 mg/dL 05/19/2016 Tsh Ord6 hTSH II 1.56 uIU/mL 05/19/2016 Progesterone Prog 0.03 ng/mL 05/19/2016 Comp Metabolic Gls949 NA 136 mEq/L 05/19/2016 Comp Metabolic Aau961 K 4.3 mEq/L 05/19/2016 Comp Metabolic Jin038 CL 100 mEq/L 05/19/2016 Comp Metabolic Stq928 CO2 28.0 mEq/L 05/19/2016 Comp Metabolic Ivb056 ANION GAP 12 05/19/2016 Comp Metabolic Ucn794 GLUCOSE 138 mg/dL 05/19/2016 Comp Metabolic Wet144 Creat 0.7 mg/dL 05/19/2016 Comp Metabolic Tmz706 eGFR 89 ml/min/1.73m2 05/19/2016 Comp Metabolic Klq354 BUN 15 mg/dL 05/19/2016 Comp Metabolic Tve634 B/C Ratio 20.5 Ratio 05/19/2016 Comp Metabolic Rec981 CALCIUM 9.7 mg/dL 05/19/2016 Comp Metabolic Jpc056 ALK PHOS 106 U/L 05/19/2016 Comp Metabolic Jir493 AST(SGOT) 21 U/L 05/19/2016 Comp Metabolic Zlf642 ALT(SGPT) 24 U/L 05/19/2016 Comp Metabolic Utq249 BILI T 0.4 mg/dL 05/19/2016 Comp Metabolic Pwv178 ALBUMIN 4.1 g/dL 05/19/2016 Comp Metabolic Ykj661 TPRO 7.1 g/dL 05/19/2016 Comp Metabolic Szx876 GLOB 3.0 g/dL 05/19/2016 Comp Metabolic Txh275 A/G Ratio 1.4 Ratio 05/19/2016 Comp Metabolic Vim542 Osmo 275 mOsmo 05/19/2016 Cbc With Differential [...] 86.5 fl 05/19/2016 Cbc With Differential Ord2 Amite% 6.5 % 05/19/2016 Cbc With Differential Ord2 [...] 2.33 K/ul 05/19/2016 Cbc With Differential Ord2 Amite ABS# 0.6 K/ul 05/19/2016 Cbc With Differential Ord2 Eos ABS# 0.1 K/ul 05/19/2016 Cbc With Differential Ord2 Baso ABS# 0.0 K/ul 05/19/2016 C RAP A SC [id number] Strep A Negative 02/28/2016 Tsh Ord6 hTSH II 1.65 uIU/mL 08/16/2015 Cbc With Differential Ord2 WBC 9.02 K/ul 08/16/2015 Cbc With Differential Ord2 RBC 4.97 M/ul 08/16/2015 Cbc With Differential Ord2 HGB 13.0 g/dl 08/16/2015 Cbc With Differential Ord2 HCT 40.2 % 08/16/2015 Cbc With Differential Ord2 Neut% 66.0 % 08/16/2015 Cbc With Differential Ord2 Lymph% 25.7 % 08/16/2015 Cbc With Differential Ord2 MCV 80.9 fl 08/16/2015 Cbc With Differential Ord2 MCH 26.2 pg 08/16/2015 Cbc With Differential Ord2 Amite% 7.1 % 08/16/2015 Cbc With Differential Ord2 [...] 2.32 K/ul 08/16/2015 Cbc With Differential Ord2 Amite ABS# 0.6 K/ul 08/16/2015 Cbc With Differential Ord2 Eos ABS# 0.1 K/ul 08/16/2015 Cbc With Differential Ord2 Baso ABS# 0.0 K/ul 08/16/2015 Cbc With Differential Ord2 New Analyzer Notice Please note new ref ranges starting 05-26-2015 due to implemntation of new five part differential hematolgy analyzer. 08/16/2015 Comp Metabolic Esa958 NA 132 mEq/L 08/16/2015 Comp Metabolic Umt685 K 3.6 mEq/L 08/16/2015 Comp Metabolic Fyv736 CL 99 mEq/L 08/16/2015 Comp Metabolic Lhk619 CO2 23.0 mEq/L 08/16/2015 Comp Metabolic Yqp994 ANION GAP 14 08/16/2015 Comp Metabolic Rnf157 GLUCOSE 101 mg/dL 08/16/2015 Comp Metabolic Jej740 Creat 0.7 mg/dL 08/16/2015 Comp Metabolic Byo984 eGFR 100 ml/min/1.73m2 08/16/2015 Comp Metabolic Ami400 BUN 10 mg/dL 08/16/2015 Comp Metabolic Kly555 B/C Ratio 15.2 Ratio 08/16/2015 Comp Metabolic Vnx778 CALCIUM 9.3 mg/dL 08/16/2015 Comp Metabolic Ioi713 ALK PHOS 100 U/L 08/16/2015 Comp Metabolic Vhu522 AST(SGOT) 14 U/L 08/16/2015 Comp Metabolic Quz646 ALT(SGPT) 11 U/L 08/16/2015 Comp Metabolic Rsx859 BILI T 0.3 mg/dL 08/16/2015 Comp Metabolic Mgx393 ALBUMIN 3.9 g/dL 08/16/2015 Comp Metabolic Asl401 TPRO 7.1 g/dL 08/16/2015 Comp Metabolic Qum305 GLOB 3.2 g/dL 08/16/2015 Comp Metabolic Lje308 A/G Ratio 1.2 Ratio 08/16/2015 Comp Metabolic Vny767 Osmo 264 mOsmo 08/16/2015 Lipid Ord30 CHOL 209 mg/dL 12/03/2014 Lipid Ord30 HDL 42.0 mg/dl 12/03/2014 Lipid Ord30 TRIG 219 mg/dL 12/03/2014 Lipid Ord30 LDL 123 mg/dL 12/03/2014 Lipid Ord30 C/HDL 5.0 Ratio 12/03/2014 Comp Metabolic Yes709 NA 132 mEq/L 12/03/2014 Comp Metabolic Ahh489 K 4.0 mEq/L 12/03/2014 Comp Metabolic Rvh165 CL 101 mEq/L 12/03/2014 Comp Metabolic Jwg324 CO2 22.0 mEq/L 12/03/2014 Comp Metabolic Zin456 ANION GAP 13 12/03/2014 Comp Metabolic Iml322 GLUCOSE 123 mg/dL 12/03/2014 Comp Metabolic Kvd007 Creat 0.7 mg/dL 12/03/2014 Comp Metabolic Ogl574 eGFR 97 ml/min/1.73m2 12/03/2014 Comp Metabolic Xad933 BUN 10 mg/dL 12/03/2014 Comp Metabolic Ijb065 B/C Ratio 14.7 Ratio 12/03/2014 Comp Metabolic Cvi043 CALCIUM 9.2 mg/dL 12/03/2014 Comp Metabolic Nes658 ALK PHOS 88 U/L 12/03/2014 Comp Metabolic Lrm162 AST(SGOT) 18 U/L 12/03/2014 Comp Metabolic Cdb717 ALT(SGPT) 17 U/L 12/03/2014 Comp Metabolic Fxh233 BILI T 0.5 mg/dL 12/03/2014 Comp Metabolic Zpc982 ALBUMIN 3.9 g/dL 12/03/2014 Comp Metabolic Bxr151 TPRO 6.8 g/dL 12/03/2014 Comp Metabolic Lvb046 GLOB 2.9 g/dL 12/03/2014 Comp Metabolic Luz192 A/G Ratio 1.3 Ratio 12/03/2014 Comp Metabolic Gnw960 Osmo 265 mOsmo 12/03/2014 Tsh Ord6 hTSH II 1.13 uIU/mL 12/03/2014 D-Dimer [id number] D-DIMER 168 NG/ML 12/03/2014 D-Dimer 141504 COMMENT 12/03/2014 Cbc With Differential Ord2 WBC [...] murmurs 07/13/2016 None Full Exam - General 1995 Musculoskeletal spine, ribs and pelvis Overall: good posture 07/13/2016 None Full Exam - General 1994 Musculoskeletal spine, ribs and pelvis Posture: a normal exam 07/13/2016 None Full Exam - General 1994 Musculoskeletal gait and station Overall: normal gait 07/13/2016 None Full Exam - General 1995 [...] Procedure Codes Date THER/PROPH/DIAG INJ SC/IM CPT-4: 62560 06/27/2017 ROCEPHIN, PER 250 MG CPT-4: J0696 06/27/2017 IMMUNIZATION ADMIN CPT -4: 89403 03/16/2017 FLU VAC NO PRSV 4 FLETCHER 3 YRS+ CPT-4: 53858 03/16/2017 Pneumococcal Polysaccharide Vaccine, 23-Valent, Ad CPT-4: 82675 03/16/2017 IMMUNIZATION ADMIN EACH ADD CPT-4: 43781 03/16/2017 TRIAMCINOLONE ACET INJ NOS CPT-4: J3301 01/11/2017 TRIAMCINOLONE ACET INJ NOS CPT-4: J3301 02/28/2016 Vital Signs Date Vital 03/14/2018 Blood Pressure 1: 140/82 Code : 8480-6 BMI: 37.8 Code : 57202-6 Heart Rate 1 : 85 bpm Height: 5'6" SpO2: 98% Weight: 234 lbs 02/27/2018 Blood Pressure 1: 142/68 Code : 8480-6 BMI: 36.5 Code : 39291-0 Heart Rate 1 : 84 bpm Height: 5'6" SpO2: 97% Weight: 226 lbs 12/19/2017 Blood Pressure 1: 130/86 Code : 8480-6 BMI: 35.7 Code : 80052-3 Heart Rate 1 : 94 bpm Height: 5'6" Weight: 221 lbs 12/04/2017 Blood Pressure 1: 138/78 Code : 8480-6 BMI: 36.6 Code : 75461-3 Heart Rate 1 : 94 bpm Height: 5'6" SpO2: 98% Weight: 227 lbs 11/20/2017 Weight: 233 lbs 09/10/2017 Blood Pressure 1: 132/86 Code : 8480-6 Heart Rate 1: 86 bpm Height: Weight: 08/14/2017 Blood Pressure 1: 120/74 Code : 8480-6 BMI: 33.9 Code : 73395-9 Heart Rate 1 : 92 bpm Height: 5'6" SpO2: 94% Weight: 210 lbs 07/31/2017 Blood Pressure 1: 140/80 Code : 8480-6 BMI: 33.9 Code : 83172-7 Heart Rate 1 : 96 bpm Height: 5'6" SpO2: 97% Weight: 210 lbs 06/27/2017 Blood Pressure 1: 128/80 Code : 8480-6 BMI: 33.9 Code : 36480-9 Heart Rate 1 : 85 bpm Height: [...] Code : 8480-6 BMI: 39.9 Code : 56988-9 Heart Rate 1 : 79 bpm Height: 5'6" SpO2: 97% Weight: 247 lbs 01/26/2017 Blood Pressure 1: 132/74 Code : 8480-6 BMI: 37.8 Code : 41171-6 Heart Rate 1 : 74 bpm Height: 5'6" SpO2: 97% Weight: 234 lbs 01/11/2017 Blood Pressure 1: 118/68 Code : 8480-6 BMI: 38.7 Code : 64745-8 Heart Rate 1 : 91 bpm Height: 5'6" SpO2: 96% Weight: 240 lbs 11/30/2016 Blood Pressure 1: 132/76 Code : 8480-6 BMI: 38.3 Code : 62449-5 Heart Rate 1 : 71 bpm Height: 5'6" SpO2: 92% Weight: 237 lbs 09/28/2016 Blood Pressure 1: 122/72 Code : 8480-6 BMI: 39.1 Code : 17241-4 Heart Rate 1 : 88 bpm Height: 5'6" SpO2: 94% Weight: 242 lbs 08/24/2016 Blood Pressure 1: 130/87 Code : 8480-6 BMI: 41.5 Code : 64509-6 Heart Rate 1 : 95 bpm Height: 5'6" Respiratory Rate: 16 bpm SpO2: 98% Temperature: 36.9 (C) / 98.5 (F ) Weight: 257 lbs 07/13/2016 Blood Pressure 1: 132/84 Code : 8480-6 BMI: 42.0 Code : 32896-7 Heart Rate 1 : 73 bpm Height: 5'6" SpO2: 97% Weight: 260 lbs 05/19/2016 Blood Pressure 1: 138/76 Code : 8480-6 BMI: 40.8 Code : 56198-9 Heart Rate 1 : 80 bpm Height: 5'6" SpO2: 98% Weight: 253 lbs 03/16/2016 Blood Pressure 1: 122/70 Code : 8480-6 BMI: 40.4 Code : 15290-6 Heart Rate 1 : 72 bpm Height: 5'6" SpO2: 98% Weight: 250 lbs 02/28/2016 Blood Pressure 1: 136/86 Code : 8480-6 BMI: 40.2 Code : 15104-2 Heart Rate 1 : 87 bpm Height: 5'6" SpO2: 96% Temperature: 36.3 (C) / 97.3 (F) Weight: 249 lbs 01/13/2016 Blood Pressure 1: 120/76 Code : 8480-6 BMI: 40.4 Code : 68346-8 Heart Rate 1 : 68 bpm Height: 5'6" SpO2: 97% Weight: 250 lbs 09/27/2015 Blood Pressure 1: 112/70 Code : 8480-6 BMI: 38.4 Code : 04094-5 Heart Rate 1 : 76 bpm Height: 5'6" SpO2: 98% Weight: 238 lbs 08/30/2015 Blood Pressure 1: 144/82 Code : 8480-6 BMI: 39.5 Code : 49365-9 Heart Rate 1 : 82 bpm Height: 5'6" SpO2: 97% Weight: 245 lbs 08/16/2015 Blood Pressure 1: 140/72 Code : 8480-6 BMI: 38.9 Code : 02310-5 Heart Rate 1 : 72 bpm Height: 5'6" SpO2: 97% Weight: 241 lbs 07/15/2015 Blood Pressure 1: 128/80 Code : 8480-6 BMI: 39.3 Code : 36911-9 Heart Rate 1 : 86 bpm Height: 5'6" SpO2: 98% Weight: 243 lbs 8 oz 06/16/2015 Blood Pressure 1: 146/86 Code : 8480-6 BMI: 39.6 Code : 35163-5 Heart Rate 1 : 76 bpm Height: 5'6" SpO2: 97% Weight: 245 lbs 8 oz 04/02/2015 Blood Pressure 1: 132/86 Code : 8480-6 BMI: 40.7 Code : 96040-3 Heart Rate 1 : 94 bpm Height: 5'6" SpO2: 98% Weight: 252 lbs 12/02/2014 Blood Pressure 1: 122/90 Code : 8480-6 BMI: 41.6 Code : 19496-9 Heart Rate 1 : 77 bpm Height: 5'6" SpO2: 95% Weight: 258 lbs Functional Status No Functional Status data History of Present Illness Symptom Name Status Result Effective Date Notes edema Onset and Resolution gradual in onset [...] Codes Date EST. PATIENT, LEVEL III Diagnosis: Localized edema[ICD10: R60.0] Diagnosis: Essential (primary) hypertension[ICD10: I10] Petra Trejo MD, [facility] CPT-4: 11325 03/14/2018 87092 EST. PATIENT, LEVEL III Diagnosis: Pain in left knee[ICD10: M25.562] Diagnosis: Other obesity due to excess calories[ICD10: E66.09] Diagnosis: Other insomnia[ICD10: G47.09] Diagnosis: Generalized anxiety disorder[ICD10: F41.1] Petra Trejo MD, [facility] CPT-4: 54494 02/27/2018 ([id number]) Miscellaneous no charge Diagnosis: Other obesity due to excess calories[ICD10: E66.09] [facility] CPT-4: 03037 12/19/2017 05168 EST. PATIENT, LEVEL III Diagnosis: Pain in right foot[ICD10: M79.671] Diagnosis: Pain in right ankle and joints of right foot[ICD10: M25.571] [facility] CPT-4: 64631 12/04/2017 31398 EST. PATIENT, LEVEL III Diagnosis: Pain in left knee[ICD10: M25.562] Diagnosis: Type 2 diabetes mellitus without complications[ICD10: E11.9] Diagnosis: Other obesity due to excess calories[ICD10: E66.09] [facility] CPT-4: 96510 11/20/2017 70516 EST. PATIENT, LEVEL III Diagnosis: Pain in left knee[ICD10: M25.562] Petra Trejo MD, [facility] CPT -4: 24258 09/10/2017 21961 EST. PATIENT, LEVEL III Diagnosis: Encounter for follow-up examination after completed treatment for conditions other than malignant neoplasm[ICD10: Z09] Diagnosis: Pain in left knee[ICD10: M25.562] Petra Trejo MD, [facility] CPT -4: 14635 08/14/2017 30203 EST. PATIENT, LEVEL III Diagnosis: Pain in left knee[ICD10: M25.562] Petra Trejo MD, [facility] CPT -4: 05245 07/31/2017 64661 EST. PATIENT, LEVEL III Diagnosis: Acute laryngopharyngitis[ICD10: J06.0] Diagnosis: Other allergic rhinitis[ICD10: J30.89] Petra Trejo MD, [facility] CPT-4: 85556 06/27/2017 06688 EST. PATIENT, LEVEL III Diagnosis: Ganglion, left hand[ICD10: M67.442] Diagnosis: Essential (primary) hypertension[ICD10: I10] Diagnosis: Generalized anxiety disorder[ICD10: F41.1] Diagnosis: Other insomnia[ICD10: G47.09] Petra Trejo MD, [facility] CPT-4 : 57985 05/29/2017 10126 EST. PATIENT, LEVEL III Diagnosis: Essential (primary) hypertension[ICD10: I10] Diagnosis: Palpitations[ICD10: R00.2] Diagnosis: Generalized anxiety disorder[ICD10: F41.1] Petra Trejo MD, [facility] CPT-4: 43652 05/21/2017 13373 EST. PATIENT, LEVEL III Diagnosis: Pain in right foot[ICD10: M79.671] Petra Trejo MD, [facility] CPT-4: 86930 04/20/2017 80000 EST. PATIENT, LEVEL IV Diagnosis: Other insomnia[ICD10: G47.09] Diagnosis: Other skin changes[ICD10: R23.8] Petra Trejo MD, [facility] CPT- 4: 72639 01/26/2017 95509 EST. PATIENT, LEVEL IV Diagnosis: Acute bronchitis due to other specified organisms[ICD10: J20.8] Petra Trejo MD, [facility] CPT-4: 34671 01/11/2017 ([id number]) 27529 EST. PATIENT, LEVEL IV Diagnosis: Essential (primary) hypertension[ICD10: I10] Diagnosis: Other insomnia[ICD10: G47.09] Diagnosis: Primary generalized (osteo)arthritis[ICD10: M15.0] Diagnosis: Other obesity due to excess calories[ICD10: E66.09] Claudette Trejo MD, [facility] CPT-4: 16494 11/30/2016 ([id number]) 23750 EST. PATIENT, LEVEL III Diagnosis: Other obesity due to excess calories[ICD10: E66.09] Diagnosis: Other insomnia[ICD10: G47.09] Diagnosis: Generalized anxiety disorder[ICD10: F41.1] Claudette Trejo MD, [facility] CPT-4: 07192 09/28/2016 ([id number]) 87579 EST. PATIENT, LEVEL IV Diagnosis: Generalized anxiety disorder[ICD10: F41.1] Diagnosis: Major depressive disorder, recurrent, mild[ICD10: F33.0] Diagnosis: Other obesity due to excess calories[ICD10: E66.09] Diagnosis: Other insomnia[ICD10: G47.09] Claudette Trejo MD, [facility] CPT-4: 32318 08/24/2016 ([id number]) 37256 EST. PATIENT, LEVEL III Diagnosis: Other obesity due to excess calories[ICD10: E66.09] Diagnosis: Major depressive disorder, recurrent, moderate[ICD10: F33.1] Diagnosis: Low back pain[ICD10: M54.5] Heidy Trejo MD, [facility] CPT- 4: 94168 07/13/2016 04958 EST. PATIENT, LEVEL IV Diagnosis: Other muscle spasm[ICD10: M62.838] Diagnosis: Generalized anxiety disorder[ICD10: F41.1] Diagnosis: Major depressive disorder, recurrent, moderate[ICD10: F33.1] Diagnosis: Other insomnia[ICD10: G47.09] Petra Trejo MD, [facility] CPT-4 : 74785 05/19/2016 ([id number]) 33238 EST. PATIENT, LEVEL III Diagnosis: Generalized anxiety disorder[ICD10: F41.1] Diagnosis: Major depressive disorder, recurrent, moderate[ICD10: F33.1] Heidy Trejo MD, [facility] CPT-4: 44992 03/16/2016 ([id number]) 54253 EST. PATIENT, LEVEL III Diagnosis: Streptococcal pharyngitis[ICD10: J02.0] Claudette Trejo MD, [facility] CPT-4: 87074 02/28/2016 ([id number]) 02057 EST. PATIENT, LEVEL III Diagnosis: Generalized anxiety disorder[ICD10: F41.1] Diagnosis: Other obesity due to excess calories[ICD10: E66.09] Heidy Trejo MD, [facility] CPT-4: 87465 01/13/2016 ([id number]) 63703 EST. PATIENT, LEVEL III Diagnosis: Generalized anxiety disorder[ICD10: F41.1] Diagnosis: Major depressive disorder, recurrent, unspecified[ICD10: F33.9] Heidy Trejo MD, [facility] CPT-4: 07876 09/27/2015 09042 EST. PATIENT, LEVEL IV Diagnosis: Chronic pain syndrome[ICD10: G89.4] Diagnosis: Other obesity due to excess calories[ICD10: E66.09] Diagnosis: Essential (primary) hypertension[ICD10: I10] Diagnosis: Generalized anxiety disorder[ICD10: F41.1] Diagnosis: Excessive and frequent menstruation with regular cycle[ICD10: N92.0] Diagnosis: Pain in right knee[ICD10: M25.561] Petra Trejo MD, [facility] CPT-4: 55159 08/30/2015 24129 EST. PATIENT, LEVEL IV Diagnosis: Palpitations[ICD10: R00.2] Diagnosis: Other obesity due to excess calories[ICD10: E66.09] Petra Trejo MD, [facility] CPT-4: 70312 08/16/2015 ([id number]) 47751 EST. PATIENT, LEVEL IV Diagnosis: Pain in right knee[ICD10: M25.561] Diagnosis: Primary generalized (osteo)arthritis[ICD10: M15.0] Diagnosis: Acute maxillary sinusitis, unspecified[ICD10: J01.00] Heidy Trejo MD, [facility] CPT-4: 96440 07/15/2015 ([id number]) 19214 EST. PATIENT, LEVEL IV Diagnosis: Primary generalized (osteo)arthritis[ICD10: M15.0] Diagnosis: Restless legs syndrome[ICD10: G25.81] Diagnosis: Chronic pain syndrome[ICD10: G89.4] Heidy Trejo MD, [facility] CPT-4: 07303 06/16/2015 ([id number]) 17198 EST. PATIENT, LEVEL III Diagnosis: Primary generalized (osteo)arthritis[ICD10: M15.0] Diagnosis: Varicose veins of bilateral lower extremities with pain[ICD10: I83.813] Claudette Trejo MD, [facility] CPT-4: 81730 ([id number]) OFFICE VISIT, NEW - LEVEL 3 Diagnosis: Osteoarthritis[ICD9: 715.90] Diagnosis: ABNORMAL WEIGHT GAIN[ICD9: 783.1] Diagnosis: Superficial thrombophlebitis[ICD9: 451.9] Carey Trejo MD, [facility] CPT-4: 40944 12/02/2014 Plan of Care Planned Activity Notes Codes Status Date Visit Plan: Hypertension - uncontrolled - the [...] peripheral edema. 03/14/2018 Appointment: Petra Rivas WPtel: [address] [place], [place] [address] (15 min) Moderate 03/14/2018 Patient Education: Patient [...] ortho 02/27/2018 Appointment: Petra Rivas WPtel: [phone] [facility] (30 min) Complex 02/27/2018 Patient Education: [...] not improve. 12/04/2017 App[facility]ment: [phone] [place] ([facility] min) Moderate [...] glucose control. 11/20/2017 Appointment: Petra Rivas WPtel: [facility] [place] (15 min) [...] not improve. 09/10/2017 Appointment: Petra Rivas WPtel: [facility] [place] (15 min) [...] not improve. 08/14/2017 Appointment: Petra Rivas WPtel: [facility] [place] [place] (30 min) Complex 08/14/2017 Patient Education: Patient Medication Summary Completed 08/14/2017 Appointment: Petra Rivas WPtel: [facility] [place] (15 min) [...] improve. 07/31/2017 Appointment: [facility]ivas [phone] (30 min) Complex 07/31/2017 Patient Education: Patient Medication Summary Completed 07/31/2017 Care Plan[facility] Pending 07/31/2017 Visit Plan: URI - Pt [...] spray. 06/27/2017 Appointment: Petra Rivas WPtel: [phone] [facility] (15 min) Moderate 06/27/2017 Patient Education: Patient Medication Summary Completed 06/27/2017 Referral: Jignesh Quinn [facility] Patient informed. Referral info faxed. Completed [...] Dr. Quinn 05/29/2017 Appointment: Petra Rivas WPtel: [facility]1 [facility] (15 min) Moderate 05/29/2017 Patient Education: Patient Medication Summary Completed 05/29/2017 Care Plan: Referral Order SNOMED-CT : 999089728 Pending 05/29/2017 Appointment: Petra Rivas WPtel: [address] [place], [place] [phone] (15 min) Moderate 05/28/2017 Visit Plan: Palpitations [...] acute concerns. 05/21/2017 Appointment: Petra Rivas WPtel: [facility] (15 min) Moderate 05/21/2017 Patient Education: Patient [...] Petra Rivas WPtel: [facility] (30 min) Complex 04/20/2017 Patient Education: Patient Medication Summary Completed 04/20/2017 Appointment: Petra Rivas WPtel: [phone] [facility] (30 min) Complex 03/29/2017 Patient Education: Patient Medication Summary Completed 03/16/2017 Referral: Maycol Quijano Referral Initiated 02/08/2017 Care Plan: Referral Order SNOMED-CT : [id number] Pending 01/28/2017 Visit Plan: Insomnia - Pt [...] concerns. 01/26/2017 Appointment: Petra Rivas WPtel: [phone] [facility] (30 min) Complex 01/26/2017 Patient Education: [...] worsen. 01/11/2017 Appointment: Petra Rivas WPtel: [phone] [facility] (15 min) Moderate 01/11/2017 Patient Education: Patient [...] on use. 11/30/2016 Appointment: Claudette Savage WPtel: [address] [place], [place] [phone] (15 min) Moderate 11/30/2016 Patient Education: Patient Medication Summary Completed 11/30/2016 Patient Education: Obesity Completed 11/30/2016 Care Plan: BMI Above normal followup SELF-MGMT EDUC & TRAIN 1 PT Pending 2016 Visit Plan: Uopeamr-hejfjlipit-mvfxceaf with increase in cymbalta-no changes Insomnia-RX for belsomra provided and instructed on use Obesity-patient down 15#-no changes-continue diet/exercise-follow up in 2 months 09/28/2016 Appointment: Claudette Savage WPtel: [address] [place], [place] [phone] (15 min) Moderate 09/28/2016 Patient Education: Patient Medication Summary Completed 09/28/2016 Patient Education: Obesity Completed 09/28/2016 Care Plan: BMI Above normal followup SELF-MGMT EDUC & TRAIN 1 PT Pending 2016 Visit Plan: Cxeefta-ugvusdjfnz-huatqjij-increase cymbalta to 60mg daily. Increase xanax as [...] for insomnia/anxiety 08/24/2016 Appointment: Claudette Savage WPtel: [address] [place], [place] [phone] (15 min) Moderate 08/24/2016 Patient Education: Patient [...] not improving. 07/13/2016 Appointment: Heidy Trejo WPtel: [facility]4 [facility] (15 min) Moderate 07/13/2016 Patient Education: Patient [...] time insomnia. 05/19/2016 Appointment: Petra Rivas WPtel: [facility] (30 min) Complex [...] Appointment: Heidy Trejo WPtel: [facility]0 [facility] (15 min) Moderate 03/16/2016 Patient Education: Patient [...] the swab. 02/28/2016 Appointment: Claudette Savage WPtel: [phone] [facility] (10 min) Simple 02/28/2016 Patient Education: Patient [...] stop lexapro 01/13/2016 [phone] ([facility] min) Moderate 01/13/2016 Patient Education: [...] 09/27/2015 Care Plan: Referral Order SNOMED-CT : [id number] Pending 08/31/2015 Visit Plan: Anxiety - the [...] show improvement. 07/15/2015 Appointment: Heidy Trejo WPtel: [phone] [facility] [place] (15 min) Moderate 07/15/2015 Patient Education: [...] clinic 04/02/2015 Appointment: Claudette Savage WPtel: [phone] [phone] [place] (15 min) Moderate 04/02/2015 Patient Education: [...] Completed 12/02/2014 Referral: Belle Hoffman WPtel: [phone] [facility] they will call and set the appt with her Initiated Referral: Maycol Quijano Referral Initiated Referral: Belle Hoffman WPtel: [phone] [facility] Referral Initiated Referral: [facility]ignesh [facility] [place] Referral Initiated Instructions Comment Kenalog . Strep throat - pt give rx for antibiotic - sent to pharmacy - pt had swab of throat today - will culture the swab. . Right ankle/heel pain - the patient [...] throat today - will culture the swab. glucosamine and chondroiton - joint ease, joint [...] pt is to call for acute concerns. Luminate contrave 1 pill nightly x 1 week, [...] for greater blood glucose control. . Anxiety - the patient has uncontrolled [...] not improved, or if symptoms acutely worsen. Increase Cymbalta from 30 mg/day to 60 mg/day Start Victoza 0.6 mg/day for one week, then increase to 1.2 mg/day for one week , then increase to 1.8 mg/day Patient states understanding of administration instructions. Refill Xanax 1 mg at night for anxiety . Jgnbgat-jborwyigzp-zturcudx-increase cymbalta to 60mg daily. Increase xanax as [...] of treatment with the above medications. . Right heel pain - will send [...] cyst - will refer to Dr. Quinn Breathing treatments 3 times a day x [...] improved, or if symptoms acutely worsen. . Chronic Depression and anxiety - the [...] in the nasal steroid allergy spray. . Anxiety and Depression - uncontrolled - [...] has been appropriately prescribed for this patient. We will check a D-Dimer lab today. [...] CMP, Fasting lipid profile and TSH. . Palpitations - pt states that she [...] 2 weeks for weight check. BELSOMRA . Zusnjov-ukjxijvnnd-kuimkxqj with increase in cymbalta-no changes Insomnia-RX for belsomra provided and instructed on use Obesity-patient down 15#-no changes-continue diet/exercise-follow up in 2 months
--- OUTSIDE RECORDS SUMMARY | 2018-07-24 23:59 | XMS REPORT | CCD ---
Author Author [place] Organization [facility] Address [address] [place] [address] Phone Care Team Providers Care Management Psychologist Name Role Phone PP Unavailable CCM Unavailable Summary Purpose Interface Exchange Insurance Providers Payer name Policy type / Coverage type Covered republican ID Effective Begin Date Effective End Date [facility] Commercial Insurance [id number] Unknown Family history Brother Diagnosis Age At [...] Description Effective Dates Tobacco history SNOMED CT: 3180946 Quit less than 5 years ago 04/02/2015 Alcohol history Unknown occasionally drinks alcohol 04/02/2015 Marital status Unknown Manuel Vitale 12/02/2014 Number of children Unknown 3 12/02/2014 Allergies, Adverse Reactions, Alerts Substance Reaction Codes Entered Date Inactivated Date Status * NO KNOWN FOOD ALLERGIES Unknown 12/02/2014 No Inactive Date Active Penicillin Unknown 12/02/2014 No Inactive Date Active tramadol RxNorm: 99664 12/02/2014 No Inactive Date Active Past Medical [...] Fill Instructions hydrochlorothiazide 25 mg tablet RxNorm: 368509 1 Tablet(s) PO daily 03/14/2018 04/12/2018 Active Cymbalta 60 mg capsule,delayed release RxNorm: 749916 1 Capsule(s) PO daily TAKE 1 CAPSULE BY MOUTH DAILY 02/27/20182019 Active gabapentin 300 mg capsule RxNorm: 048581 1 Capsule(s) PO TID 03/28/2018 Active Victoza 2-Marek 0.6 mg/0.1 mL (18 mg/3 mL) subcutaneous pen injector RxNorm: 911259 Milligram(s) INJECT 1.8 MG SUB-Q ONCE DAILY 02/27/2018 08/20/2019 Active qty sufficient Xanax 1 mg tablet RxNorm: 585332 1-2 Tablet(s) PO QHS as needed insomnia 02/27/2018 05/27/2018 Active meloxicam 7.5 mg tablet RxNorm: 457373 1 Tablet(s) PO daily 1 TABLET(S) PO DAILY 02/27/2018 08/25/2018 Active atorvastatin 20 mg tablet RxNorm: 465520 1 Tablet(s) PO daily 02/27/2018 05/22/2019 Active Ambien 10 mg tablet RxNorm: 131261 1 Tablet(s) PO QHS as needed insomnia 02/27/2018 05/26/2018 Active Cymbalta 60 mg capsule,delayed release RxNorm: 137390 TAKE 1 CAPSULE BY MOUTH DAILY 02/27/2018 02/26/2018 Inactive atorvastatin 20 mg tablet RxNorm: 820689 1 Tablet(s) PO daily 02/05/2018 02/26/2018 Inactive atorvastatin 20 mg tablet RxNorm: 619343 1 Tablet(s) PO daily 02/05/2018 02/04/2018 Inactive meloxicam 7.5 mg tablet RxNorm: 879669 1 TABLET(S) PO DAILY 02/26/2018 Inactive oxycodone 15 mg tablet RxNorm: 4880025 1 Tablet(s) PO QID as needed 01/07/2018 02/19/2018 Inactive lactulose 20 gram/30 mL oral solution RxNorm: 879614 15-30 Milliliter(s) PO BID as needed 12/31/2017 02/20/2018 Inactive meloxicam 7.5 mg tablet RxNorm: 764320 1 TABLET(S) PO DAILY 06/201701/31/2018 Inactive Zorvolex 35 mg capsule RxNorm: 9731773 1 Capsule(s) PO TID 06/201702/20/2018 Inactive Ambien 10 mg tablet RxNorm: 090882 1 Tablet(s) PO QHS as needed insomnia 12/04/2017 02/26/2018 Inactive oxycodone 15 mg tablet RxNorm: 3476893 1 Tablet(s) PO QID as needed 12/04/2017 01/06/2018 Inactive prednisone 20 mg tablet RxNorm: 847469 2 Tablet(s) PO daily 12/08/2017 Inactive Victoza 2-Marek 0.6 mg/0.1 mL (18 mg/3 mL) subcutaneous pen injector RxNorm: 608483 Milligram(s) INJECT 1.8 MG SUB-Q ONCE DAILY 11/20/2017 02/26/2018 Inactive meloxicam 7.5 mg tablet RxNorm: 023877 1 Tablet(s) PO daily 02/201812/12/2017 Inactive phentermine 37.5 mg tablet RxNorm: 597140 1 Tablet(s) PO daily 11/20/2017 12/19/2017 Inactive Ambien 10 mg tablet RxNorm: 659622 1 Tablet(s) PO QHS as needed insomnia 11/20/2017 12/18/2017 Inactive Xanax 1 mg tablet RxNorm: 904780 1.5 Tablet(s) PO QHS as needed insomnia 11/20/2017 02/26/2018 Inactive hydrocodone 7.5 mg-acetaminophen 325 mg tablet RxNorm: 386018 1 Tablet(s) PO TID as needed 11/16/2017 01/06/2018 Inactive Cymbalta 60 mg capsule,delayed release RxNorm: 702803 TAKE 1 CAPSULE BY MOUTH DAILY 11/02/2017 02/26/2018 Inactive Xanax 1 mg tablet RxNorm: 943737 1 Tablet(s) PO BID PRN as needed anxiety 10/04/2017 11/19/2017 Inactive Victoza 2-Marek 0.6 mg/0.1 mL (18 mg/3 mL) subcutaneous pen injector RxNorm: 535737 INJECT 1.8 MG SUB-Q ONCE DAILY 10/04/2017 11/19/2017 Inactive hydrocodone 7.5 mg-acetaminophen 325 mg tablet RxNorm: 617803 1 Tablet(s) PO TID as needed 09/17/2017 11/15/2017 Inactive hydrocodone 7.5 mg-acetaminophen 325 mg tablet RxNorm: 787549 1 Tablet(s) PO TID as needed 09/10/2017 09/16/2017 Inactive prednisone 10 mg tablet RxNorm: 746213 Tablet(s) PO 09/10/2017 11/13/2017 Inactive 6, 5,4,3,2,1 Zorvolex 35 mg capsule RxNorm: 9819867 1 Capsule(s) PO TID 11/13/2017 Inactive Ambien 10 mg tablet RxNorm: 703946 1 Tablet(s) PO QHS as needed insomnia 08/29/2017 11/19/2017 Inactive Zorvolex 35 mg capsule RxNorm: 3463085 1 Capsule(s) PO TID 09/06/2017 Inactive Zorvolex 35 mg capsule RxNorm: 7008314 1 Capsule(s) PO TID 06/201708/27/2017 Inactive Zorvolex 35 mg capsule RxNorm: 1398876 1 Capsule(s) PO TID 06/201708/12/2017 Inactive prednisone 20 mg tablet RxNorm: 547238 2 Tablet(s) PO daily 08/04/2017 Inactive hydrocodone 7.5 mg-acetaminophen 325 mg tablet RxNorm: 546534 1 Tablet(s) PO TID as needed 07/31/2017 09/09/2017 Inactive Zorvolex 35 mg capsule RxNorm: 6561252 1 Capsule(s) PO TID as needed 07/31/2017 11/13/2017 Inactive ceftriaxone 500 mg solution for injection RxNorm: 1752780 1 Milliliter(s) Inj 06/27/2017 06/27/2017 Inactive Keflex 500 mg capsule RxNorm: 288061 1 Capsule(s) PO TID 201707/03/2017 Inactive Ambien 10 mg tablet RxNorm: 294743 1 Tablet(s) PO daily 201708/25/2017 Inactive tramadol 50 mg tablet RxNorm: 108620 1 Tablet(s) PO TID as needed 05/29/2017 07/27/2017 Inactive Xanax 1 mg tablet RxNorm: 375760 1 Tablet(s) PO BID PRN as needed anxiety 05/21/2017 10/03/2017 Inactive alprazolam 1 mg tablet RxNorm: 224964 1 Tablet(s) PO BID as needed 05/21/2017 06/19/2017 Inactive Celebrex 200 mg capsule RxNorm: 698008 1 CAPSULE(S) PO BID 11/05/2017 Inactive prednisone 20 mg tablet RxNorm: 821670 2 Tablet(s) PO daily 12/201604/24/2017 Inactive Ambien 10 mg tablet RxNorm: 248563 Tablet(s) PO 04/20/2017 05/28/2017 Inactive hydrocodone 5 mg-acetaminophen 325 mg tablet RxNorm: 456257 1 Tablet(s) PO QID as needed 04/20/2017 08/01/2017 Inactive Cymbalta 60 mg capsule,delayed release RxNorm: 684037 1 Capsule(s) PO daily 04/20/2017 02/26/2018 Inactive Victoza 2-Marek 0.6 mg/0.1 mL (18 mg/3 mL) subcutaneous pen injector RxNorm: 415389 INJECT 1.8 MG SUB-Q ONCE DAILY 03/26/2017 09/21/2017 Inactive diazepam 2 mg tablet RxNorm: 824669 1 Tablet(s) PO QHS as needed insomnia 01/28/2017 05/07/2017 Inactive Victoza 2-Marek 0.6 mg/0.1 mL (18 mg/3 mL) subcutaneous pen injector RxNorm: 695429 1.8 Milligram(s) SQ daily 01/26/201703/25 Inactive dispense quantity sufficient Tussionex Pennkinetic ER 10 mg-8 mg/5 mL suspension, extended release RxNorm: 2902108 5 Milliliter(s) PO BID 01/11/2017 01/15/2017 Inactive Xanax 1 mg tablet RxNorm: 114255 1 Tablet(s) PO BID PRN as needed anxiety 01/11/2017 05/20/2017 Inactive Zithromax Z-Marek 250 mg tablet RxNorm: 121201 1 Tablet(s) PO UD 01/11/2017 01/15/2017 Inactive zpack albuterol sulfate 2.5 mg/3 mL (0.083 %) solution for nebulization RxNorm: 052548 3 Milliliter(s) INH UD 01/11/201707/2017 Inactive prednisone 20 mg tablet RxNorm: 627143 2 Tablet(s) PO daily 01/15/2017 Inactive Kenalog 40 mg/mL suspension for injection RxNorm: 4254016 1.5 Milliliter(s) Inj 01/11/2017 01/11/2017 Inactive Celebrex 200 mg capsule RxNorm: 389462 1 Capsule(s) PO BID 02/27/2017 Inactive Ambien 5 mg tablet RxNorm: 570539 1 Tablet(s) PO HS PRN 11/3008/07/2017 Inactive trazodone 50 mg tablet RxNorm: 198641 1/2 to 1 Tablet(s) PO QHS 10/13/2016 10/12/2016 Inactive trazodone 50 mg tablet RxNorm: 241104 1/2 to 1 Tablet(s) PO QHS 10/13/2016 11/29/2016 Inactive Belsomra 10 mg tablet RxNorm: 8502808 1 Tablet(s) PO QHS 201611/29/2016 Inactive may increase to 20mg if 10mg not effective Cymbalta 60 mg capsule,delayed release RxNorm: 108134 1 Capsule(s) PO daily 08/24/2016 03/21/2017 Inactive Xanax 1 mg tablet RxNorm: 755125 1 Tablet(s) PO BID PRN as needed anxiety 08/24/2016 01/10/2017 Inactive Victoza 2-Marek 0.6 mg/0.1 mL (18 mg/3 mL) subcutaneous pen injector RxNorm: 297581 Milligram(s) SQ 08/24/2016 08/23/2016 Inactive Victoza 2-Marek 0.6 mg/0.1 mL (18 mg/3 mL) subcutaneous pen injector RxNorm: 440219 1.8 Milligram(s) SQ 08/24/2016 01/25/2017 Inactive Vitamin D2 50,000 unit capsule RxNorm: 725495 1 Capsule(s) PO QW 07/13/2016 10/10/2016 Inactive Cymbalta 30 mg capsule,delayed release RxNorm: 134405 1 Capsule(s) PO daily 07/13/2016 08/23/2016 Inactive Belviq XR 20 mg tablet,extended release RxNorm: 6744793 1 Tablet(s) PO daily 05/30/2016 05/29/2016 Inactive prednisone 20 mg tablet RxNorm: 809022 2 Tablet(s) PO daily 06/03/2016 Inactive prednisone 20 mg tablet RxNorm: 020351 2 Tablet(s) PO daily 05/29/2016 Inactive Belviq XR 20 mg tablet,extended release RxNorm: 1937714 1 Tablet(s) PO daily 05/30/2016 06/28/2016 Inactive cyclobenzaprine 5 mg tablet RxNorm: 194271 1-2 Tablet(s) PO TID as needed 05/19/2016 05/23/2016 Inactive metoprolol succinate ER 25 mg tablet,extended release 24 hr RxNorm: 292903 1 Tablet(s) PO QPM 04/10/2016 04/13/2016 Inactive metoprolol succinate ER 25 mg tablet,extended release 24 hr RxNorm: 803427 1 Tablet(s) PO QPM 04/10/2016 04/09/2016 Inactive escitalopram 10 mg tablet RxNorm: 702694 1 Tablet(s) PO daily 03/16/2016 07/12/2016 Inactive estradiol 1 mg tablet RxNorm: 561628 1 Tablet(s) PO every other day 03/16/2016 05/15/2016 Inactive Kenalog 40 mg/mL suspension for injection RxNorm: 4393493 Milliliter(s) Inj 02/28/2016 02/28/2016 Inactive Zithromax Z-Marek 250 mg tablet RxNorm: 509519 1 Tablet(s) PO UD 02/28/2016 03/03/2016 Inactive zpack Lexapro 10 mg tablet RxNorm: 207792 1 Tablet(s) PO daily 201502/27/2016 Inactive Lexapro 10 mg tablet RxNorm: 971696 1 Tablet(s) PO daily 201509/26/2015 Inactive Vimovo 500 mg-20 mg tablet,immediate and delay release RxNorm: 585255 1 Tablet(s) PO BID as needed for pain 08/30/201509/25 Inactive azithromycin 250 mg tablet RxNorm: 751697 1 Tablet(s) PO UD 2 pills on day #1, then one pill daily x 4 days 07/15/2015 Inactive hydrocodone 10 mg-acetaminophen 325 mg tablet RxNorm: 848542 1 Tablet(s) PO QID 06/16/2015 01/12/2016 Inactive pramipexole 0.5 mg tablet RxNorm: 840608 1 Tablet(s) PO QPM 07/201507/14/2015 Inactive Celebrex 200 mg capsule RxNorm: 861579 1 Capsule(s) PO daily 05/02/2015 Inactive Celebrex 200 mg capsule RxNorm: 361373 1 Capsule(s) PO daily 01/12/2016 Inactive hydrocodone 7.5 mg-acetaminophen 325 mg tablet RxNorm: 827833 1 Tablet(s) PO Q6 PRN 05/03/2015 06/15/2015 Inactive Mobic 15 mg tablet RxNorm: 693885 1 Tablet(s) PO daily 201405/02/2015 Inactive hydrocodone 7.5 mg-acetaminophen 325 mg tablet RxNorm: 504087 1 Tablet(s) PO Q6 PRN 04/02/2015 05/02/2015 Inactive hydrocodone 5 mg-acetaminophen 325 mg tablet RxNorm: 528320 1 Tablet(s) PO Q6 as needed 12/11/2014 04/01/2015 Inactive Pennsaid 1.5 % topical drops RxNorm: 004508 40 Drop(s) TOP QID as needed 12/07/2014 02/04/2015 Inactive Apply 40 drops to each knee joint 4 times per day as needed for osteoarthritis pain estradiol 1 mg tablet RxNorm: 594859 1 Tablet(s) PO QHS No Start Date 03/15/2016 Inactive Xanax 0.5 mg tablet RxNorm: 674919 1 Tablet(s) PO Q6 as needed anxiety No Start Date 08/23/2016 Inactive Tylenol Extra Strength 500 mg tablet RxNorm: 821255 3 Tablet(s) PO BID after breakfast and after lunch No Start Date Inactive lactulose 20 gram/30 mL oral solution RxNorm: 042208 15-30 Milliliter(s) PO BID as needed No Start Date 12/30/2017 Inactive hydrocodone 5 mg-acetaminophen 325 mg tablet RxNorm: 679891 1 Tablet(s) PO Q6 as needed No Start Date 12/10/2014 Inactive Phenergan-Codeine syrup RxNorm: 5-10 Milliliter(s) PO QID as needed No Start Date 11/13/2017 Inactive ibuprofen 200 mg capsule RxNorm: 023242 4 Capsule(s) PO QID as needed No Start Date 04/01/2015 Inactive Medication Administered Medication Codes Instructions Start Date Status ceftriaxone 500 mg solution for injection RxNorm: 6200999 1Milliliter 06/27/2017 No longer Active Kenalog 40 mg/mL suspension for injection RxNorm: 2606203 1.5Milliliter 01/11/2017 No longer Active Kenalog 40 mg/mL suspension for injection RxNorm: 4450125 Milliliter 02/28/2016 No longer Active Immunizations Vaccine [...] Code Item Item Code Result Date %Hba1C Rsn380 % HbA1c 02054-8 6.7 % 11/20/2017 %Hba1C Eaq383 Gluc Ave 146 mg/dL 11/20/2017 Free T4 Qwa051 FREE T4 0.76 ng/dL 05/21/2017 Tsh Ord6 hTSH II 1.27 uIU/mL 05/21/2017 Comp Metabolic Vgz876 NA 140 mEq/L 05/21/2017 Comp Metabolic Ppx394 K 3.9 mEq/L 05/21/2017 Comp Metabolic Lxg982 CL 101 mEq/L 05/21/2017 Comp Metabolic Nit676 CO2 28.0 mEq/L 05/21/2017 Comp Metabolic Dfw408 ANION GAP 15 05/21/2017 Comp Metabolic Ymw689 GLUCOSE 155 mg/dL 05/21/2017 Comp Metabolic Xax705 Creat 0.7 mg/dL 05/21/2017 Comp Metabolic Dpy244 eGFR 87 ml/min/1.73m2 05/21/2017 Comp Metabolic Agg783 BUN 16 mg/dL 05/21/2017 Comp Metabolic Hyy959 B/C Ratio 21.6 Ratio 05/21/2017 Comp Metabolic Vmd922 CALCIUM 9.4 mg/dL 05/21/2017 Comp Metabolic Htn690 ALK PHOS 132 U/L 05/21/2017 Comp Metabolic Euw971 AST(SGOT) 16 U/L 05/21/2017 Comp Metabolic Teh255 ALT(SGPT) 20 U/L 05/21/2017 Comp Metabolic Xls879 BILI T 0.4 mg/dL 05/21/2017 Comp Metabolic Ihe225 ALBUMIN 4.0 g/dL 05/21/2017 Comp Metabolic Yqe238 TPRO 6.7 g/dL 05/21/2017 Comp Metabolic Whs917 GLOB 2.7 g/dL 05/21/2017 Comp Metabolic Stv446 A/G Ratio 1.5 Ratio 05/21/2017 Comp Metabolic Svf115 Osmo 284 mOsmo 05/21/2017 Cbc With Differential [...] 18.8 % 05/21/2017 Cbc With Differential Ord2 [place]% 5.5 % 05/21/2017 Cbc With Differential Ord2 [...] 2.65 K/ul 05/21/2017 Cbc With Differential Ord2 [place] ABS# 0.8 K/ul 05/21/2017 Cbc With Differential Ord2 Eos ABS# 0.1 K/ul 05/21/2017 Cbc With Differential Ord2 Baso ABS# 0.0 K/ul 05/21/2017 Estrogens Total 839284 ESTROGENS, TOTAL 54 pg/mL 05/24/2016 Magnesium Ord90 Mag 1.8 mg/dL 05/19/2016 Tsh Ord6 hTSH II 1.56 uIU/mL 05/19/2016 Progesterone Prog 0.03 ng/mL 05/19/2016 Comp Metabolic Ytc947 NA 136 mEq/L 05/19/2016 Comp Metabolic Kke376 K 4.3 mEq/L 05/19/2016 Comp Metabolic Iks515 CL 100 mEq/L 05/19/2016 Comp Metabolic Kca320 CO2 28.0 mEq/L 05/19/2016 Comp Metabolic Opi965 ANION GAP 12 05/19/2016 Comp Metabolic Tkr084 GLUCOSE 138 mg/dL 05/19/2016 Comp Metabolic Arm726 Creat 0.7 mg/dL 05/19/2016 Comp Metabolic Zdo575 eGFR 89 ml/min/1.73m2 05/19/2016 Comp Metabolic Vny463 BUN 15 mg/dL 05/19/2016 Comp Metabolic Fjo775 B/C Ratio 20.5 Ratio 05/19/2016 Comp Metabolic Mum119 CALCIUM 9.7 mg/dL 05/19/2016 Comp Metabolic Esd986 ALK PHOS 106 U/L 05/19/2016 Comp Metabolic Hul730 AST(SGOT) 21 U/L 05/19/2016 Comp Metabolic Gsh029 ALT(SGPT) 24 U/L 05/19/2016 Comp Metabolic Lxw360 BILI T 0.4 mg/dL 05/19/2016 Comp Metabolic Hrj314 ALBUMIN 4.1 g/dL 05/19/2016 Comp Metabolic Mfa123 TPRO 7.1 g/dL 05/19/2016 Comp Metabolic Ngp868 GLOB 3.0 g/dL 05/19/2016 Comp Metabolic Iqg176 A/G Ratio 1.4 Ratio 05/19/2016 Comp Metabolic Dsz137 Osmo 275 mOsmo 05/19/2016 Cbc With Differential [...] 28.5 pg 05/19/2016 Cbc With Differential Ord2 [place]% 6.5 % 05/19/2016 Cbc With Differential Ord2 [...] 2.33 K/ul 05/19/2016 Cbc With Differential Ord2 [place] ABS# 0.6 K/ul 05/19/2016 Cbc With Differential Ord2 Eos ABS# 0.1 K/ul 05/19/2016 Cbc With Differential Ord2 Baso ABS# 0.0 K/ul 05/19/2016 C RAP A SC [id number] Strep A Negative 02/28/2016 Tsh Ord6 hTSH [...] 26.2 pg 08/16/2015 Cbc With Differential Ord2 [place]% 7.1 % 08/16/2015 Cbc With Differential Ord2 [...] 2.32 K/ul 08/16/2015 Cbc With Differential Ord2 [place] ABS# 0.6 K/ul 08/16/2015 Cbc With Differential Ord2 Eos ABS# 0.1 K/ul 08/16/2015 Cbc With Differential Ord2 Baso ABS# 0.0 K/ul 08/16/2015 Cbc With Differential Ord2 New Analyzer Notice Please note new ref ranges starting 05-26-2015 due to implemntation of new five part differential hematolgy analyzer. 08/16/2015 Comp Metabolic Gph278 NA 132 mEq/L 08/16/2015 Comp Metabolic Qlg083 K 3.6 mEq/L 08/16/2015 Comp Metabolic Lye775 CL 99 mEq/L 08/16/2015 Comp Metabolic Zvd708 CO2 23.0 mEq/L 08/16/2015 Comp Metabolic Ytf945 ANION GAP 14 08/16/2015 Comp Metabolic Wme193 GLUCOSE 101 mg/dL 08/16/2015 Comp Metabolic Yij049 Creat 0.7 mg/dL 08/16/2015 Comp Metabolic Gyq192 eGFR 100 ml/min/1.73m2 08/16/2015 Comp Metabolic Rvo987 BUN 10 mg/dL 08/16/2015 Comp Metabolic Xrs815 B/C Ratio 15.2 Ratio 08/16/2015 Comp Metabolic Ago209 CALCIUM 9.3 mg/dL 08/16/2015 Comp Metabolic Uav681 ALK PHOS 100 U/L 08/16/2015 Comp Metabolic Xbk475 AST(SGOT) 14 U/L 08/16/2015 Comp Metabolic Xsl785 ALT(SGPT) 11 U/L 08/16/2015 Comp Metabolic Bdl388 BILI T 0.3 mg/dL 08/16/2015 Comp Metabolic Tra101 ALBUMIN 3.9 g/dL 08/16/2015 Comp Metabolic Stg398 TPRO 7.1 g/dL 08/16/2015 Comp Metabolic Rhd261 GLOB 3.2 g/dL 08/16/2015 Comp Metabolic Yav764 A/G Ratio 1.2 Ratio 08/16/2015 Comp Metabolic Eyi988 Osmo 264 mOsmo 08/16/2015 Lipid Ord30 CHOL 209 mg/dL 12/03/2014 Lipid Ord30 HDL 42.0 mg/dl 12/03/2014 Lipid Ord30 TRIG 219 mg/dL 12/03/2014 Lipid Ord30 LDL 123 mg/dL 12/03/2014 Lipid Ord30 C/HDL 5.0 Ratio 12/03/2014 Comp Metabolic Xbx331 NA 132 mEq/L 12/03/2014 Comp Metabolic Zhf988 K 4.0 mEq/L 12/03/2014 Comp Metabolic Ipr585 CL 101 mEq/L 12/03/2014 Comp Metabolic Yhz489 CO2 22.0 mEq/L 12/03/2014 Comp Metabolic Gon888 ANION GAP 13 12/03/2014 Comp Metabolic Des010 GLUCOSE 123 mg/dL 12/03/2014 Comp Metabolic Sgc387 Creat 0.7 mg/dL 12/03/2014 Comp Metabolic Mbw839 eGFR 97 ml/min/1.73m2 12/03/2014 Comp Metabolic Xmf568 BUN 10 mg/dL 12/03/2014 Comp Metabolic Rjr058 B/C Ratio 14.7 Ratio 12/03/2014 Comp Metabolic Fbv914 CALCIUM 9.2 mg/dL 12/03/2014 Comp Metabolic Ayy110 ALK PHOS 88 U/L 12/03/2014 Comp Metabolic Oxb369 AST(SGOT) 18 U/L 12/03/2014 Comp Metabolic Xzz770 ALT(SGPT) 17 U/L 12/03/2014 Comp Metabolic Djv544 BILI T 0.5 mg/dL 12/03/2014 Comp Metabolic Yic405 ALBUMIN 3.9 g/dL 12/03/2014 Comp Metabolic Jtg383 TPRO 6.8 g/dL 12/03/2014 Comp Metabolic Bfy144 GLOB 2.9 g/dL 12/03/2014 Comp Metabolic Xwz661 A/G Ratio 1.3 Ratio 12/03/2014 Comp Metabolic Ske528 Osmo 265 mOsmo 12/03/2014 Tsh Ord6 hTSH II 1.13 uIU/mL 12/03/2014 D-Dimer 354043 D-DIMER 168 NG/ML 12/03/2014 D-Dimer 350435 COMMENT 12/03/2014 Cbc With Differential Ord2 WBC [...] Procedure Codes Date THER/PROPH/DIAG INJ SC/IM CPT-4: 64081 06/27/2017 ROCEPHIN, PER 250 MG CPT-4: J0696 06/27/2017 IMMUNIZATION ADMIN CPT -4: 46779 03/16/2017 FLU VAC NO PRSV 4 FLETCHER 3 YRS+ CPT-4: 25528 03/16/2017 Pneumococcal Polysaccharide Vaccine, 23-Valent, Ad CPT-4: 82738 03/16/2017 IMMUNIZATION ADMIN EACH ADD CPT-4: 52162 03/16/2017 TRIAMCINOLONE ACET INJ NOS CPT-4: J3301 01/11/2017 TRIAMCINOLONE ACET INJ NOS CPT-4: J3301 02/28/2016 Vital Signs Date Vital 03/14/2018 Blood Pressure 1: 140/82 Code : 8480-6 BMI: 37.8 Code : 33684-4 Heart Rate 1 : 85 bpm Height: 5'6" SpO2: 98% Weight: 234 lbs 02/27/2018 Blood Pressure 1: 142/68 Code : 8480-6 BMI: 36.5 Code : 31157-6 Heart Rate 1 : 84 bpm Height: 5'6" SpO2: 97% Weight: 226 lbs 12/19/2017 Blood Pressure 1: 130/86 Code : 8480-6 BMI: 35.7 Code : 43750-4 Heart Rate 1 : 94 bpm Height: 5'6" Weight: 221 lbs 12/04/2017 Blood Pressure 1: 138/78 Code : 8480-6 BMI: 36.6 Code : 23043-5 Heart Rate 1 : 94 bpm Height: 5'6" SpO2: 98% Weight: 227 lbs 11/20/2017 Weight: 233 lbs 09/10/2017 Blood Pressure 1: 132/86 Code : 8480-6 Heart Rate 1: 86 bpm Height: Weight: 08/14/2017 Blood Pressure 1: 120/74 Code : 8480-6 BMI: 33.9 Code : 50065-8 Heart Rate 1 : 92 bpm Height: 5'6" SpO2: 94% Weight: 210 lbs 07/31/2017 Blood Pressure 1: 140/80 Code : 8480-6 BMI: 33.9 Code : 83977-9 Heart Rate 1 : 96 bpm Height: 5'6" SpO2: 97% Weight: 210 lbs 06/27/2017 Blood Pressure 1: 128/80 Code : 8480-6 BMI: 33.9 Code : 85795-4 Heart Rate 1 : 85 bpm Height: [...] Code : 8480-6 BMI: 39.9 Code : 63720-3 Heart Rate 1 : 79 bpm Height: 5'6" SpO2: 97% Weight: 247 lbs 01/26/2017 Blood Pressure 1: 132/74 Code : 8480-6 BMI: 37.8 Code : 80654-4 Heart Rate 1 : 74 bpm Height: 5'6" SpO2: 97% Weight: 234 lbs 01/11/2017 Blood Pressure 1: 118/68 Code : 8480-6 BMI: 38.7 Code : 41211-3 Heart Rate 1 : 91 bpm Height: 5'6" SpO2: 96% Weight: 240 lbs 11/30/2016 Blood Pressure 1: 132/76 Code : 8480-6 BMI: 38.3 Code : 58962-9 Heart Rate 1 : 71 bpm Height: 5'6" SpO2: 92% Weight: 237 lbs 09/28/2016 Blood Pressure 1: 122/72 Code : 8480-6 BMI: 39.1 Code : 44433-3 Heart Rate 1 : 88 bpm Height: 5'6" SpO2: 94% Weight: 242 lbs 08/24/2016 Blood Pressure 1: 130/87 Code : 8480-6 BMI: 41.5 Code : 45795-9 Heart Rate 1 : 95 bpm Height: 5'6" Respiratory Rate: 16 bpm SpO2: 98% Temperature: 36.9 (C) / 98.5 (F ) Weight: 257 lbs 07/13/2016 Blood Pressure 1: 132/84 Code : 8480-6 BMI: 42.0 Code : 43787-5 Heart Rate 1 : 73 bpm Height: 5'6" SpO2: 97% Weight: 260 lbs 05/19/2016 Blood Pressure 1: 138/76 Code : 8480-6 BMI: 40.8 Code : 76998-9 Heart Rate 1 : 80 bpm Height: 5'6" SpO2: 98% Weight: 253 lbs 03/16/2016 Blood Pressure 1: 122/70 Code : 8480-6 BMI: 40.4 Code : 44616-1 Heart Rate 1 : 72 bpm Height: 5'6" SpO2: 98% Weight: 250 lbs 02/28/2016 Blood Pressure 1: 136/86 Code : 8480-6 BMI: 40.2 Code : 25917-9 Heart Rate 1 : 87 bpm Height: 5'6" SpO2: 96% Temperature: 36.3 (C) / 97.3 (F) Weight: 249 lbs 01/13/2016 Blood Pressure 1: 120/76 Code : 8480-6 BMI: 40.4 Code : 61013-9 Heart Rate 1 : 68 bpm Height: 5'6" SpO2: 97% Weight: 250 lbs 09/27/2015 Blood Pressure 1: 112/70 Code : 8480-6 BMI: 38.4 Code : 01595-7 Heart Rate 1 : 76 bpm Height: 5'6" SpO2: 98% Weight: 238 lbs 08/30/2015 Blood Pressure 1: 144/82 Code : 8480-6 BMI: 39.5 Code : 76519-3 Heart Rate 1 : 82 bpm Height: 5'6" SpO2: 97% Weight: 245 lbs 08/16/2015 Blood Pressure 1: 140/72 Code : 8480-6 BMI: 38.9 Code : 77229-9 Heart Rate 1 : 72 bpm Height: 5'6" SpO2: 97% Weight: 241 lbs 07/15/2015 Blood Pressure 1: 128/80 Code : 8480-6 BMI: 39.3 Code : 31617-8 Heart Rate 1 : 86 bpm Height: 5'6" SpO2: 98% Weight: 243 lbs 8 oz 06/16/2015 Blood Pressure 1: 146/86 Code : 8480-6 BMI: 39.6 Code : 42418-7 Heart Rate 1 : 76 bpm Height: 5'6" SpO2: 97% Weight: 245 lbs 8 oz 04/02/2015 Blood Pressure 1: 132/86 Code : 8480-6 BMI: 40.7 Code : 15320-5 Heart Rate 1 : 94 bpm Height: 5'6" SpO2: 98% Weight: 252 lbs 12/02/2014 Blood Pressure 1: 122/90 Code : 8480-6 BMI: 41.6 Code : 57356-1 Heart Rate 1 : 77 bpm Height: [...] Essential (primary) hypertension[ICD10: I10] Petra Trejo MD, [facility] CPT-4: 91543 03/14/2018 [id number] EST. PATIENT, LEVEL III Diagnosis: Pain in left knee[ICD10: M25.562] Diagnosis: Other obesity due to excess calories[ICD10: E66.09] Diagnosis: Other insomnia[ICD10: G47.09] Diagnosis: Generalized anxiety disorder[ICD10: F41.1] Petra Trejo MD, [facility] CPT-4: 82869 02/27/2018 ([id number]) Miscellaneous no charge Diagnosis: Other obesity due to excess calories[ICD10: E66.09] Heidy Trejo MD, [facility] CPT-4: 11790 12/19/2017 98411 EST. PATIENT, LEVEL III Diagnosis: Pain in right foot[ICD10: M79.671] Diagnosis: Pain in right ankle and joints of right foot[ICD10: M25.571] Petra Trejo MD , [facility] CPT-4: 98685 12/04/2017 [id number] EST. PATIENT, LEVEL III Diagnosis: Pain in left knee[ICD10: M25.562] Diagnosis: Type 2 diabetes mellitus without complications[ICD10: E11.9] Diagnosis: Other obesity due to excess calories[ICD10: E66.09] Petra Trejo MD, [facility] CPT-4: 55216 11/20/2017 [id number] EST. PATIENT, LEVEL III Diagnosis: Pain in left knee[ICD10: M25.562] Petra Trejo MD, [facility] CPT -4: 16654 09/10/2017 77948 EST. PATIENT, LEVEL III Diagnosis: Encounter for follow-up examination after completed treatment for conditions other than malignant neoplasm[ICD10: Z09] Diagnosis: Pain in left knee[ICD10: M25.562] Petra Trejo MD, [facility] CPT -4: 10309 08/14/2017 51548 EST. PATIENT, LEVEL III Diagnosis: Pain in left knee[ICD10: M25.562] Petra Trejo MD, [facility] CPT -4: 22022 07/31/2017 27924 EST. PATIENT, LEVEL III Diagnosis: Acute laryngopharyngitis[ICD10: J06.0] Diagnosis: Other allergic rhinitis[ICD10: J30.89] Petra Trejo MD, [facility] CPT-4: 50314 06/27/2017 14998 EST. PATIENT, LEVEL III Diagnosis: Ganglion, left hand[ICD10: M67.442] Diagnosis: Essential (primary) hypertension[ICD10: I10] Diagnosis: Generalized anxiety disorder[ICD10: F41.1] Diagnosis: Other insomnia[ICD10: G47.09] Petra Trejo MD, [facility] CPT-4 : 13257 05/29/2017 40992 EST. PATIENT, LEVEL III Diagnosis: Essential (primary) hypertension[ICD10: I10] Diagnosis: Palpitations[ICD10: R00.2] Diagnosis: Generalized anxiety disorder[ICD10: F41.1] Petra Trejo MD, [facility] CPT-4: 89915 05/21/2017 26718 EST. PATIENT, LEVEL III Diagnosis: Pain in right foot[ICD10: M79.671] Petra Trejo MD, [facility] CPT-4: 38355 04/20/2017 [id number] EST. PATIENT, LEVEL IV Diagnosis: Other insomnia[ICD10: G47.09] Diagnosis: Other skin changes[ICD10: R23.8] Petra Trejo MD, [facility] CPT- 4: 60257 01/26/2017 49580 EST. PATIENT, LEVEL IV Diagnosis: Acute bronchitis due to other specified organisms[ICD10: J20.8] Petra Trejo MD, [facility] CPT-4: 62891 01/11/2017 ([id number]) 54373 EST. PATIENT, LEVEL IV Diagnosis: Essential (primary) hypertension[ICD10: I10] Diagnosis: Other insomnia[ICD10: G47.09] Diagnosis: Primary generalized (osteo)arthritis[ICD10: M15.0] Diagnosis: Other obesity due to excess calories[ICD10: E66.09] Claudette Trejo MD, [facility] CPT-4: 98436 11/30/2016 ([id number]) 69544 EST. PATIENT, LEVEL III Diagnosis: Other obesity due to excess calories[ICD10: E66.09] Diagnosis: Other insomnia[ICD10: G47.09] Diagnosis: Generalized anxiety disorder[ICD10: F41.1] Claudette Trejo MD, [facility] CPT-4: 87217 09/28/2016 ([id number]) 69012 EST. PATIENT, LEVEL IV Diagnosis: Generalized anxiety disorder[ICD10: F41.1] Diagnosis: Major depressive disorder, recurrent, mild[ICD10: F33.0] Diagnosis: Other obesity due to excess calories[ICD10: E66.09] Diagnosis: Other insomnia[ICD10: G47.09] Claudette Trejo MD, [facility] CPT-4: 93563 08/24/2016 ([id number]) 55078 EST. PATIENT, LEVEL III Diagnosis: Other obesity due to excess calories[ICD10: E66.09] Diagnosis: Major depressive disorder, recurrent, moderate[ICD10: F33.1] Diagnosis: Low back pain[ICD10: M54.5] Heidy Trejo MD, [facility] CPT- 4: 69591 07/13/2016 42377 EST. PATIENT, LEVEL IV Diagnosis: Other muscle spasm[ICD10: M62.838] Diagnosis: Generalized anxiety disorder[ICD10: F41.1] Diagnosis: Major depressive disorder, recurrent, moderate[ICD10: F33.1] Diagnosis: Other insomnia[ICD10: G47.09] Petra Trejo MD, [facility] CPT-4 : 03684 05/19/2016 ([id number]) 05384 EST. PATIENT, LEVEL III Diagnosis: Generalized anxiety disorder[ICD10: F41.1] Diagnosis: Major depressive disorder, recurrent, moderate[ICD10: F33.1] Heidy Trejo MD, [facility] CPT-4: 35271 03/16/2016 ([id number]) 67879 EST. PATIENT, LEVEL III Diagnosis: Streptococcal pharyngitis[ICD10: J02.0] Claudette Trejo MD, [facility] CPT-4: 20052 02/28/2016 ([id number]) 09444 EST. PATIENT, LEVEL III Diagnosis: Generalized anxiety disorder[ICD10: F41.1] Diagnosis: Other obesity due to excess calories[ICD10: E66.09] Heidy Trejo MD, [facility] CPT-4: 67567 01/13/2016 ([id number]) 79943 EST. PATIENT, LEVEL III Diagnosis: Generalized anxiety disorder[ICD10: F41.1] Diagnosis: Major depressive disorder, recurrent, unspecified[ICD10: F33.9] Heidy Trejo MD, [facility] CPT-4: 77083 09/27/2015 83534 EST. PATIENT, LEVEL IV Diagnosis: Chronic pain syndrome[ICD10: G89.4] Diagnosis: Other obesity due to excess calories[ICD10: E66.09] Diagnosis: Essential (primary) hypertension[ICD10: I10] Diagnosis: Generalized anxiety disorder[ICD10: F41.1] Diagnosis: Excessive and frequent menstruation with regular cycle[ICD10: N92.0] Diagnosis: Pain in right knee[ICD10: M25.561] Petra Trejo MD, [facility] CPT-4: 78136 08/30/2015 20291 EST. PATIENT, LEVEL IV Diagnosis: Palpitations[ICD10: R00.2] Diagnosis: Other obesity due to excess calories[ICD10: E66.09] Petra Trejo MD, [facility] CPT-4: 43183 08/16/2015 ([id number]) 16684 EST. PATIENT, LEVEL IV Diagnosis: Pain in right knee[ICD10: M25.561] Diagnosis: Primary generalized (osteo)arthritis[ICD10: M15.0] Diagnosis: Acute maxillary sinusitis, unspecified[ICD10: J01.00] Heidy Trejo MD, [facility] CPT-4: 04588 07/15/2015 ([id number]) 29827 EST. PATIENT, LEVEL IV Diagnosis: Primary generalized (osteo)arthritis[ICD10: M15.0] Diagnosis: Restless legs syndrome[ICD10: G25.81] Diagnosis: Chronic pain syndrome[ICD10: G89.4] [facility] CPT-4: 27476 06/16/2015 ([id number]) 31624 EST. PATIENT, LEVEL III Diagnosis: Primary generalized (osteo)arthritis[ICD10: M15.0] Diagnosis: Varicose veins of bilateral lower extremities with pain[ICD10: I83.813] Claudette [facility] CPT-4: 41204 ([id number]) OFFICE VISIT, NEW - LEVEL 3 Diagnosis: Osteoarthritis[ICD9: 715.90] Diagnosis: ABNORMAL WEIGHT GAIN[ICD9: 783.1] Diagnosis: Superficial thrombophlebitis[ICD9: 451.9] [facility] CPT-4: 67435 12/02/2014 Plan of Care Planned Activity Notes [...] further attempt to reduce peripheral edema. 03/14/2018 Patient Education: Patient Medication Summary Completed [...] ortho 02/27/2018 [phone] [facility] [place] ([facility] min) Complex 02/27/2018 [...] improve. 12/04/2017 Appointment: Petra Rivas WPtel: [phone] [facility] (15 min) Moderate 12/04/2017 Patient Education: Patient [...] control. 11/20/2017 App[facility]ment[phone] [facility] [place] (15 min) Moderate 11/20/2017 [...] or does not improve. 09/10/2017 Appointment: Petra Rvias WPtel: [address] [place], [place] [address] [place] (15 min) Moderate 09/10/2017 Patient Education: [...] not improve. 08/14/2017 Appointment: Petra Rivas WPtel: [address] [place], [place] [address] [place] (30 min) Complex 08/14/2017 Patient Education: Patient Medication Summary Completed 08/14/2017 Appointment: Petra Rivas WPtel: [facility] [place] (15 min) Moderate 08/01/2017 Visit Plan: Knee pain - pt is to use RICE - Rest, Ice, Compression, Elevation - pt is to use crutches as directed - The pt is to use prn antiinflammatories to manage acute pain. The patient is to call the office if the pain is worsening or does not improve. 07/31/2017 Appointment: Petra Rivas WPtel: [facility] [place] (30 min) Complex 07/31/2017 Patient Education: Patient Medication Summary Completed 07/31/2017 Care Plan: X-RAY EXAM OF KNEE 3 LOINC : 52928-2 Pending 07/31/2017 Visit Plan: URI - Pt [...] allergy spray. 06/27/2017 Appointment: Petra Rivas WPtel: [address] [place], [place] [id number] (15 min) Moderate 06/27/2017 Patient Education: Patient [...] Dr. Quinn 05/29/2017 Appointment: Petra Rivas WPtel: [address] [place], [place] [phone] (15 min) Moderate 05/29/2017 Patient Education: Patient Medication Summary Completed 05/29/2017 Care Plan: Referral Order SNOMED-CT : [id number] Pending 05/29/2017 Appointment: Petra Rivas WPtel: [address] [place], [place] [phone] [place] (15 min) Moderate 05/28/2017 Visit Plan: [...] 05/21/2017 Appointment: Petra Rivas WPtel: [facility] (15 min) Moderate 05/21/2017 Patient [...] 04/20/2017 Appointment: Petra Rivas WPtel: [facility] [place] (30 min) Complex 04/20/2017 Patient Education: Patient Medication Summary Completed 04/20/2017 Appointment: Petra Rivas WPtel: [facility] (30 min) Complex 03/29/2017 Patient Education: Patient Medication Summary Completed 03/16/2017 Referral: Maycol Quijano Referral Initiated 02/08/2017 Care Plan: Referral Order SNOMED-CT : [id number] Pending 01/28/2017 Visit Plan: Insomnia - Pt [...] concerns. 01/26/2017 Appointment: Petra Rivas WPtel: [phone] [facility] (30 min) Complex 01/26/2017 Patient [...] 01/11/2017 Appointment: Petra Rivas WPtel: [facility] (15 min) Moderate 01/11/2017 Patient [...] use. 11/30/2016 Appointment: Claudette Savage WPtel: [phone] [facility] [place] (15 min) Moderate 11/30/2016 Patient Education: Patient Medication Summary Completed 11/30/2016 Patient Education: Obesity Completed 11/30/2016 Care Plan: BMI Above normal followup SELF-MGMT EDUC & TRAIN 1 PT Pending 2016 Visit Plan: Hxlerhd-xjvedlgryk-cemzydwm with increase in cymbalta-no changes Insomnia-RX for belsomra provided and instructed on use Obesity-patient down 15#-no changes-continue diet/exercise-follow up in 2 months 09/28/2016 Appointment: Claudette Savage WPtel: [address] [place] [address] (15 min) Moderate 09/28/2016 Patient Education: Patient Medication Summary Completed 09/28/2016 Patient Education: Obesity Completed 09/28/2016 Care Plan: BMI Above normal followup SELF-MGMT EDUC & TRAIN 1 PT Pending 2016 Visit Plan: Ormwmrq-txnofgehfe-unuvfpwo-increase cymbalta to 60mg daily. Increase xanax as [...] for insomnia/anxiety 08/24/2016 Appointment: Claudette Savage WPtel: [address] [place], [place] [phone] (15 min) Moderate 08/24/2016 Patient Education: Patient [...] not improving. 07/13/2016 Appointment: Heidy Trejo WPtel: [address] [place] [address] (15 min) Moderate 07/13/2016 Patient Education: Patient [...] [phone] [facility] (30 min) Complex 05/19/2016 Patient [...] 03/16/2016 Appointment: [facility]idy [facility]Ptel[facility] (15 min) Moderate 03/16/2016 Patient Education: Patient [...] swab. 02/28/2016 Appointment: [phone] [phone] (10 min) Simple 02/28/2016 Patient Education: Patient [...] lexapro 01/13/2016 App[facility]ment: [phone] [facility] [place] (15 min) Moderate 01/13/2016 Patient [...] 09/27/2015 Care Plan: Referral Order SNOMED-CT : [id number] Pending 08/31/2015 Visit Plan: Anxiety - the [...] symptoms. 07/15/2015 Appointment: [phone] [facility] [place] (15 min) Moderate 07/15/2015 Patient Education: [...] [phone] [facility] [place] (15 min) Moderate 04/02/2015 [...] Summary Completed 12/02/2014 Referral: Belle Hoffman WPtel: [phone] [facility] they will call and set the appt with her Initiated Referral: Maycol Quijano Referral Initiated Referral: Belle Hoffman WPtel: [phone] [facility] [place] Referral Initiated Referral: Jignesh Quinn [facility] [place] Referral Initiated Instructions Comment . Hypertension [...] 1 mg at night for anxiety . Rnnzbsr-ypohlskiin-qfmgmgax-increase cymbalta to 60mg daily. Increase xanax as [...] a medication such as mirapex or requip. FatSkunk contrave 1 pill nightly x 1 week, [...] worsening or does not improve. BELSOMRA . Mabigit-dkqfpdsyhg-ykfpryar with increase in cymbalta-no changes Insomnia-RX for [...]
[2018-07-25] MEDS ORDERED: inSUlin (REGULAR) HUMAN 1 UNIT/0.01 ML (CHARGE PER UNIT) SC ONE
--- OUTSIDE RECORDS SUMMARY | 2018-07-25 00:03 | XMS REPORT | CCD ---
Author Author [place] Organization [facility] Address [address] [place] [address] Phone Care Team Providers Care [employer] D[employer] Name Role Phone PP Unavailable CCM Unavailable Summary Purpose Interface Exchange Insurance Providers Payer name Policy type / Coverage type Covered alliance party ID Effective Begin Date Effective End Date [facility] Commercial Insurance [id number] Unknown Family history Brother Diagnosis Age At [...] Description Effective Dates Tobacco history SNOMED CT: 3523935 Quit less than 5 years ago 04/02/2015 Alcohol history Unknown occasionally drinks alcohol 04/02/2015 Marital status Unknown Manuel Vitale 12/02/2014 Number of children Unknown 3 12/02/2014 Allergies, Adverse Reactions, Alerts Substance Reaction Codes Entered Date Inactivated Date Status * NO KNOWN FOOD ALLERGIES Unknown 12/02/2014 No Inactive Date Active Penicillin Unknown 12/02/2014 No Inactive Date Active tramadol RxNorm: 92746 12/02/2014 No Inactive Date Active Past Medical History Illness Codes Condition Status Onset Date Resolved Date Other obesity due to excess calories ICD-9: 278.00 ICD-10: E66.09 Active 01/12/2016 Unknown Pain in right ankle and joints of right foot ICD-9: 719.47 ICD-10: M25.571 Active 12/04/2017 Unknown Pain in right foot ICD -9: 729.5 ICD-10: M79.671 Active 04/20/2017 Unknown Diabetes Unknown Active 11/20/2017 Unknown Pain in left knee ICD- 9: 719.46 ICD-10: M25.562 Active 07/31/2017 Unknown Type 2 diabetes mellitus without complications ICD-9: 250.00 ICD-10: E11.9 Active 11/20/2017 Unknown Encounter for follow-up examination [...] Condition Codes Effective Dates Condition Status Other obesity due to excess calories ICD-9: 278.00 ICD-10: E66.09 01/12/2016 Active Pain in right ankle and joints of right foot ICD-9: 719.47 ICD-10: M25.571 12/04/2017 Active Pain in right foot ICD -9: 729.5 ICD-10: M79.671 04/20/2017 Active Diabetes Unknown 11/20/2017 Active Pain in left knee ICD- 9: 719.46 ICD-10: M25.562 07/31/2017 Active Type 2 diabetes mellitus without complications ICD-9: 250.00 ICD-10: E11.9 11/20/2017 Active Encounter for follow-up examination after [...] Start Date Stop Date Status Fill Instructions lactulose 20 gram/30 mL oral solution RxNorm: 191989 15-30 Milliliter(s) PO BID as needed 12/31/2017 No Stop Date Active meloxicam 7.5 mg tablet RxNorm: 554031 1 TABLET(S) PO DAILY 06/201702/10/2018 Active Zorvolex 35 mg capsule RxNorm: 0648616 1 Capsule(s) PO TID 06/201704/11/2018 Active Ambien 10 mg tablet RxNorm: 929885 1 Tablet(s) PO QHS as needed insomnia 12/04/2017 03/03/2018 Active oxycodone 15 mg tablet RxNorm: 9331872 1 Tablet(s) PO QID as needed 12/04/2017 No Stop Date Active prednisone 20 mg tablet RxNorm: 502144 2 Tablet(s) PO daily 12/08/2017 Inactive Victoza 2-Marek 0.6 mg/0.1 mL (18 mg/3 mL) subcutaneous pen injector RxNorm: 574587 Milligram(s) INJECT 1.8 MG SUB-Q ONCE DAILY 11/20/2017 05/18/2018 Active Xanax 1 mg tablet RxNorm: 718028 1.5 Tablet(s) PO QHS as needed insomnia 11/20/2017 03/19/2018 Active meloxicam 7.5 mg tablet RxNorm: 228281 1 Tablet(s) PO daily 02/201812/12/2017 Inactive phentermine 37.5 mg tablet RxNorm: 560610 1 Tablet(s) PO daily 11/20/2017 12/19/2017 Inactive Ambien 10 mg tablet RxNorm: 852579 1 Tablet(s) PO QHS as needed insomnia 11/20/2017 12/18/2017 Inactive hydrocodone 7.5 mg-acetaminophen 325 mg tablet RxNorm: 917798 1 Tablet(s) PO TID as needed 11/16/2017 No Stop Date Active Cymbalta 60 mg capsule,delayed release RxNorm: 753952 TAKE 1 CAPSULE BY MOUTH DAILY 11/02/2017 03/01/2018 Active Xanax 1 mg tablet RxNorm: 238627 1 Tablet(s) PO BID PRN as needed anxiety 10/04/2017 11/19/2017 Inactive Victoza 2-Marek 0.6 mg/0.1 mL (18 mg/3 mL) subcutaneous pen injector RxNorm: 131437 INJECT 1.8 MG SUB-Q ONCE DAILY 10/04/2017 11/19/2017 Inactive hydrocodone 7.5 mg-acetaminophen 325 mg tablet RxNorm: 379850 1 Tablet(s) PO TID as needed 09/17/2017 11/15/2017 Inactive hydrocodone 7.5 mg-acetaminophen 325 mg tablet RxNorm: 601233 1 Tablet(s) PO TID as needed 09/10/2017 09/16/2017 Inactive prednisone 10 mg tablet RxNorm: 549990 Tablet(s) PO 09/10/2017 11/13/2017 Inactive 6, 5,4,3,2,1 Zorvolex 35 mg capsule RxNorm: 5996129 1 Capsule(s) PO TID 11/13/2017 Inactive Ambien 10 mg tablet RxNorm: 781329 1 Tablet(s) PO QHS as needed insomnia 08/29/2017 11/19/2017 Inactive Zorvolex 35 mg capsule RxNorm: 9976935 1 Capsule(s) PO TID 09/06/2017 Inactive Zorvolex 35 mg capsule RxNorm: 6010583 1 Capsule(s) PO TID 06/201708/27/2017 Inactive Zorvolex 35 mg capsule RxNorm: 5229152 1 Capsule(s) PO TID 06/201708/12/2017 Inactive prednisone 20 mg tablet RxNorm: 158024 2 Tablet(s) PO daily 08/04/2017 Inactive hydrocodone 7.5 mg-acetaminophen 325 mg tablet RxNorm: 594581 1 Tablet(s) PO TID as needed 07/31/2017 09/09/2017 Inactive Zorvolex 35 mg capsule RxNorm: 8492291 1 Capsule(s) PO TID as needed 07/31/2017 11/13/2017 Inactive ceftriaxone 500 mg solution for injection RxNorm: 2363235 1 Milliliter(s) Inj 06/27/2017 06/27/2017 Inactive Keflex 500 mg capsule RxNorm: 767964 1 Capsule(s) PO TID 201707/03/2017 Inactive Ambien 10 mg tablet RxNorm: 323891 1 Tablet(s) PO daily 201708/25/2017 Inactive tramadol 50 mg tablet RxNorm: 946639 1 Tablet(s) PO TID as needed 05/29/2017 07/27/2017 Inactive Xanax 1 mg tablet RxNorm: 937107 1 Tablet(s) PO BID PRN as needed anxiety 05/21/2017 10/03/2017 Inactive alprazolam 1 mg tablet RxNorm: 582560 1 Tablet(s) PO BID as needed 05/21/2017 06/19/2017 Inactive Celebrex 200 mg capsule RxNorm: 398178 1 CAPSULE(S) PO BID 11/05/2017 Inactive Cymbalta 60 mg capsule,delayed release RxNorm: 421050 1 Capsule(s) PO daily 04/20/2017 11/15/2017 Inactive prednisone 20 mg tablet RxNorm: 611731 2 Tablet(s) PO daily 12/201604/24/2017 Inactive Ambien 10 mg tablet RxNorm: 448049 Tablet(s) PO 04/20/2017 05/28/2017 Inactive hydrocodone 5 mg-acetaminophen 325 mg tablet RxNorm: 738760 1 Tablet(s) PO QID as needed 04/20/2017 08/01/2017 Inactive Victoza 2-Marek 0.6 mg/0.1 mL (18 mg/3 mL) subcutaneous pen injector RxNorm: 850470 INJECT 1.8 MG SUB-Q ONCE DAILY 03/26/2017 09/21/2017 Inactive diazepam 2 mg tablet RxNorm: 638727 1 Tablet(s) PO QHS as needed insomnia 01/28/2017 05/07/2017 Inactive Victoza 2-Marek 0.6 mg/0.1 mL (18 mg/3 mL) subcutaneous pen injector RxNorm: 930158 1.8 Milligram(s) SQ daily 01/26/201703/25 Inactive dispense quantity sufficient Tussionex Pennkinetic ER 10 mg-8 mg/5 mL suspension, extended release RxNorm: 5101913 5 Milliliter(s) PO BID 01/11/2017 01/15/2017 Inactive Xanax 1 mg tablet RxNorm: 604600 1 Tablet(s) PO BID PRN as needed anxiety 01/11/2017 05/20/2017 Inactive Zithromax Z-Marek 250 mg tablet RxNorm: 445170 1 Tablet(s) PO UD 01/11/2017 01/15/2017 Inactive zpack albuterol sulfate 2.5 mg/3 mL (0.083 %) solution for nebulization RxNorm: 115207 3 Milliliter(s) INH UD 01/11/201707/2017 Inactive prednisone 20 mg tablet RxNorm: 305886 2 Tablet(s) PO daily 01/15/2017 Inactive Kenalog 40 mg/mL suspension for injection RxNorm: 7868119 1.5 Milliliter(s) Inj 01/11/2017 01/11/2017 Inactive Celebrex 200 mg capsule RxNorm: 864418 1 Capsule(s) PO BID 02/27/2017 Inactive Ambien 5 mg tablet RxNorm: 569368 1 Tablet(s) PO HS PRN 11/3008/07/2017 Inactive trazodone 50 mg tablet RxNorm: 851378 1/2 to 1 Tablet(s) PO QHS 10/13/2016 10/12/2016 Inactive trazodone 50 mg tablet RxNorm: 584877 1/2 to 1 Tablet(s) PO QHS 10/13/2016 11/29/2016 Inactive Belsomra 10 mg tablet RxNorm: 7532829 1 Tablet(s) PO QHS 201611/29/2016 Inactive may increase to 20mg if 10mg not effective Cymbalta 60 mg capsule,delayed release RxNorm: 773905 1 Capsule(s) PO daily 08/24/2016 03/21/2017 Inactive Xanax 1 mg tablet RxNorm: 427974 1 Tablet(s) PO BID PRN as needed anxiety 08/24/2016 01/10/2017 Inactive Victoza 2-Marek 0.6 mg/0.1 mL (18 mg/3 mL) subcutaneous pen injector RxNorm: 700430 Milligram(s) SQ 08/24/2016 08/23/2016 Inactive Victoza 2-Marek 0.6 mg/0.1 mL (18 mg/3 mL) subcutaneous pen injector RxNorm: 341652 1.8 Milligram(s) SQ 08/24/2016 01/25/2017 Inactive Vitamin D2 50,000 unit capsule RxNorm: 279312 1 Capsule(s) PO QW 07/13/2016 10/10/2016 Inactive Cymbalta 30 mg capsule,delayed release RxNorm: 615375 1 Capsule(s) PO daily 07/13/2016 08/23/2016 Inactive Belviq XR 20 mg tablet,extended release RxNorm: 5971129 1 Tablet(s) PO daily 05/30/2016 05/29/2016 Inactive prednisone 20 mg tablet RxNorm: 986258 2 Tablet(s) PO daily 06/03/2016 Inactive prednisone 20 mg tablet RxNorm: 630693 2 Tablet(s) PO daily 05/29/2016 Inactive Belviq XR 20 mg tablet,extended release RxNorm: 5435137 1 Tablet(s) PO daily 05/30/2016 06/28/2016 Inactive cyclobenzaprine 5 mg tablet RxNorm: 246492 1-2 Tablet(s) PO TID as needed 05/19/2016 05/23/2016 Inactive metoprolol succinate ER 25 mg tablet,extended release 24 hr RxNorm: 763911 1 Tablet(s) PO QPM 04/10/2016 04/13/2016 Inactive metoprolol succinate ER 25 mg tablet,extended release 24 hr RxNorm: 047723 1 Tablet(s) PO QPM 04/10/2016 04/09/2016 Inactive escitalopram 10 mg tablet RxNorm: 781726 1 Tablet(s) PO daily 03/16/2016 07/12/2016 Inactive estradiol 1 mg tablet RxNorm: 001520 1 Tablet(s) PO every other day 03/16/2016 05/15/2016 Inactive Kenalog 40 mg/mL suspension for injection RxNorm: 4645251 Milliliter(s) Inj 02/28/2016 02/28/2016 Inactive Zithromax Z-Marek 250 mg tablet RxNorm: 035332 1 Tablet(s) PO UD 02/28/2016 03/03/2016 Inactive zpack Lexapro 10 mg tablet RxNorm: 191185 1 Tablet(s) PO daily 201502/27/2016 Inactive Lexapro 10 mg tablet RxNorm: 929829 1 Tablet(s) PO daily 201509/26/2015 Inactive Vimovo 500 mg-20 mg tablet,immediate and delay release RxNorm: 216592 1 Tablet(s) PO BID as needed for pain 08/30/201509/25 Inactive azithromycin 250 mg tablet RxNorm: 916365 1 Tablet(s) PO UD 2 pills on day #1, then one pill daily x 4 days 07/15/2015 Inactive hydrocodone 10 mg-acetaminophen 325 mg tablet RxNorm: 263523 1 Tablet(s) PO QID 06/16/2015 01/12/2016 Inactive pramipexole 0.5 mg tablet RxNorm: 875175 1 Tablet(s) PO QPM 07/201507/14/2015 Inactive Celebrex 200 mg capsule RxNorm: 687810 1 Capsule(s) PO daily 05/02/2015 Inactive Celebrex 200 mg capsule RxNorm: 780243 1 Capsule(s) PO daily 01/12/2016 Inactive hydrocodone 7.5 mg-acetaminophen 325 mg tablet RxNorm: 898947 1 Tablet(s) PO Q6 PRN 05/03/2015 06/15/2015 Inactive Mobic 15 mg tablet RxNorm: 393411 1 Tablet(s) PO daily 201405/02/2015 Inactive hydrocodone 7.5 mg-acetaminophen 325 mg tablet RxNorm: 971198 1 Tablet(s) PO Q6 PRN 04/02/2015 05/02/2015 Inactive hydrocodone 5 mg-acetaminophen 325 mg tablet RxNorm: 176561 1 Tablet(s) PO Q6 as needed 12/11/2014 04/01/2015 Inactive Pennsaid 1.5 % topical drops RxNorm: 051478 40 Drop(s) TOP QID as needed 12/07/2014 02/04/2015 Inactive Apply 40 drops to each knee joint 4 times per day as needed for osteoarthritis pain estradiol 1 mg tablet RxNorm: 932115 1 Tablet(s) PO QHS No Start Date 03/15/2016 Inactive Xanax 0.5 mg tablet RxNorm: 581636 1 Tablet(s) PO Q6 as needed anxiety No Start Date 08/23/2016 Inactive Tylenol Extra Strength 500 mg tablet RxNorm: 041435 3 Tablet(s) PO BID after breakfast and after lunch No Start Date Inactive lactulose 20 gram/30 mL oral solution RxNorm: 057612 15-30 Milliliter(s) PO BID as needed No Start Date 12/30/2017 Inactive hydrocodone 5 mg-acetaminophen 325 mg tablet RxNorm: 284698 1 Tablet(s) PO Q6 as needed No Start Date 12/10/2014 Inactive Phenergan-Codeine syrup RxNorm: 5-10 Milliliter(s) PO QID as needed No Start Date 11/13/2017 Inactive ibuprofen 200 mg capsule RxNorm: 838003 4 Capsule(s) PO QID as needed No Start Date 04/01/2015 Inactive Medication Administered Medication Codes Instructions Start Date Status ceftriaxone 500 mg solution for injection RxNorm: 6557501 1Milliliter 06/27/2017 No longer Active Kenalog 40 mg/mL suspension for injection RxNorm: 6221724 1.5Milliliter 01/11/2017 No longer Active Kenalog 40 mg/mL suspension for injection RxNorm: 9136149 Milliliter 02/28/2016 No longer Active Immunizations Vaccine Codes Date Status Influenza CVX: 141 03/16/2017 completed Pneumococcal (Adult) CVX: 33 03/16/2017 completed Assessments Condition Codes Effective Dates Other obesity due to excess calories ICD-10: E66.09 ICD-9: 278.00 12/19/2017 Pain in right ankle and joints of right foot ICD-10: M25.571 ICD-9: 719.47 12/04/2017 Pain in right foot ICD-10: M79.671 ICD-9: 729.5 12/04/2017 Type 2 diabetes mellitus without complications ICD-10: E11.9 ICD-9: 250.00 11/20/2017 Pain in left knee ICD-10: M25.562 ICD-9: 719.46 11/20/2017 Encounter for follow-up examination after completed [...] generalized (osteo)arthritis ICD-10: M15.0 ICD-9: 715.09 11/30/2016 Generalized anxiety disorder ICD-10: F41.1 ICD-9: [...] Visit Reason For Visit Effective Dates Notes foot pain 12/04/2017 knee pain 11/20/2017 knee [...] Code Item Item Code Result Date %Hba1C Jfo743 % HbA1c 41486-0 6.7 % 11/20/2017 %Hba1C Rnz337 Gluc Ave 146 mg/dL 11/20/2017 Free T4 Vdq168 FREE T4 0.76 ng/dL 05/21/2017 Tsh Ord6 hTSH II 1.27 uIU/mL 05/21/2017 Comp Metabolic Eyd271 NA 140 mEq/L 05/21/2017 Comp Metabolic Vut384 K 3.9 mEq/L 05/21/2017 Comp Metabolic Ecx450 CL 101 mEq/L 05/21/2017 Comp Metabolic Uej742 CO2 28.0 mEq/L 05/21/2017 Comp Metabolic Mcr322 ANION GAP 15 05/21/2017 Comp Metabolic Wot155 GLUCOSE 155 mg/dL 05/21/2017 Comp Metabolic Yos140 Creat 0.7 mg/dL 05/21/2017 Comp Metabolic Rmm403 eGFR 87 ml/min/1.73m2 05/21/2017 Comp Metabolic Zih294 BUN 16 mg/dL 05/21/2017 Comp Metabolic Tfv456 B/C Ratio 21.6 Ratio 05/21/2017 Comp Metabolic Wfs296 CALCIUM 9.4 mg/dL 05/21/2017 Comp Metabolic Tlm531 ALK PHOS 132 U/L 05/21/2017 Comp Metabolic Jzx177 AST(SGOT) 16 U/L 05/21/2017 Comp Metabolic Atw683 ALT(SGPT) 20 U/L 05/21/2017 Comp Metabolic Zyc366 BILI T 0.4 mg/dL 05/21/2017 Comp Metabolic Ycn514 ALBUMIN 4.0 g/dL 05/21/2017 Comp Metabolic God294 TPRO 6.7 g/dL 05/21/2017 Comp Metabolic Uwz467 GLOB 2.7 g/dL 05/21/2017 Comp Metabolic Boj699 A/G Ratio 1.5 Ratio 05/21/2017 Comp Metabolic Gnh362 Osmo 284 mOsmo 05/21/2017 Cbc With Differential [...] 18.8 % 05/21/2017 Cbc With Differential Ord2 [place]% 5.5 % 05/21/2017 Cbc With Differential Ord2 [...] 2.65 K/ul 05/21/2017 Cbc With Differential Ord2 [place] ABS# 0.8 K/ul 05/21/2017 Cbc With Differential Ord2 Eos ABS# 0.1 K/ul 05/21/2017 Cbc With Differential Ord2 Baso ABS# 0.0 K/ul 05/21/2017 Estrogens Total 714059 ESTROGENS, TOTAL 54 pg/mL 05/24/2016 Magnesium Ord90 Mag 1.8 mg/dL 05/19/2016 Tsh Ord6 hTSH II 1.56 uIU/mL 05/19/2016 Progesterone Prog 0.03 ng/mL 05/19/2016 Comp Metabolic Vxc856 NA 136 mEq/L 05/19/2016 Comp Metabolic Ydq764 K 4.3 mEq/L 05/19/2016 Comp Metabolic Dbq512 CL 100 mEq/L 05/19/2016 Comp Metabolic Qit393 CO2 28.0 mEq/L 05/19/2016 Comp Metabolic Ank698 ANION GAP 12 05/19/2016 Comp Metabolic Nwe489 GLUCOSE 138 mg/dL 05/19/2016 Comp Metabolic Sit625 Creat 0.7 mg/dL 05/19/2016 Comp Metabolic Ulk914 eGFR 89 ml/min/1.73m2 05/19/2016 Comp Metabolic Acd243 BUN 15 mg/dL 05/19/2016 Comp Metabolic Zxb199 B/C Ratio 20.5 Ratio 05/19/2016 Comp Metabolic Xjj138 CALCIUM 9.7 mg/dL 05/19/2016 Comp Metabolic Bca366 ALK PHOS 106 U/L 05/19/2016 Comp Metabolic Tly567 AST(SGOT) 21 U/L 05/19/2016 Comp Metabolic Yxs448 ALT(SGPT) 24 U/L 05/19/2016 Comp Metabolic Txg550 BILI T 0.4 mg/dL 05/19/2016 Comp Metabolic Uqa467 ALBUMIN 4.1 g/dL 05/19/2016 Comp Metabolic Xld678 TPRO 7.1 g/dL 05/19/2016 Comp Metabolic Oie787 GLOB 3.0 g/dL 05/19/2016 Comp Metabolic Sor938 A/G Ratio 1.4 Ratio 05/19/2016 Comp Metabolic Hzq050 Osmo 275 mOsmo 05/19/2016 Cbc With Differential [...] 28.5 pg 05/19/2016 Cbc With Differential Ord2 [place]% 6.5 % 05/19/2016 Cbc With Differential Ord2 [...] 2.33 K/ul 05/19/2016 Cbc With Differential Ord2 [place] ABS# 0.6 K/ul 05/19/2016 Cbc With Differential Ord2 Eos ABS# 0.1 K/ul 05/19/2016 Cbc With Differential Ord2 Baso ABS# 0.0 K/ul 05/19/2016 C RAP A SC 6806396 Strep A Negative 02/28/2016 Tsh Ord6 hTSH [...] 26.2 pg 08/16/2015 Cbc With Differential Ord2 [place]% 7.1 % 08/16/2015 Cbc With Differential Ord2 [...] 2.32 K/ul 08/16/2015 Cbc With Differential Ord2 [place] ABS# 0.6 K/ul 08/16/2015 Cbc With Differential Ord2 Eos ABS# 0.1 K/ul 08/16/2015 Cbc With Differential Ord2 Baso ABS# 0.0 K/ul 08/16/2015 Cbc With Differential Ord2 New Analyzer Notice Please note new ref ranges starting 05-26-2015 due to implemntation of new five part differential hematolgy analyzer. 08/16/2015 Comp Metabolic Yat283 NA 132 mEq/L 08/16/2015 Comp Metabolic Ebx449 K 3.6 mEq/L 08/16/2015 Comp Metabolic Kii596 CL 99 mEq/L 08/16/2015 Comp Metabolic Cjs872 CO2 23.0 mEq/L 08/16/2015 Comp Metabolic Djm945 ANION GAP 14 08/16/2015 Comp Metabolic Dqt806 GLUCOSE 101 mg/dL 08/16/2015 Comp Metabolic Kco452 Creat 0.7 mg/dL 08/16/2015 Comp Metabolic Yqf923 eGFR 100 ml/min/1.73m2 08/16/2015 Comp Metabolic Fjl047 BUN 10 mg/dL 08/16/2015 Comp Metabolic Kft459 B/C Ratio 15.2 Ratio 08/16/2015 Comp Metabolic Vpp333 CALCIUM 9.3 mg/dL 08/16/2015 Comp Metabolic Kki382 ALK PHOS 100 U/L 08/16/2015 Comp Metabolic Nnr525 AST(SGOT) 14 U/L 08/16/2015 Comp Metabolic Tsp360 ALT(SGPT) 11 U/L 08/16/2015 Comp Metabolic Qwb156 BILI T 0.3 mg/dL 08/16/2015 Comp Metabolic Wgi603 ALBUMIN 3.9 g/dL 08/16/2015 Comp Metabolic Jwr935 TPRO 7.1 g/dL 08/16/2015 Comp Metabolic Cfp973 GLOB 3.2 g/dL 08/16/2015 Comp Metabolic Gur573 A/G Ratio 1.2 Ratio 08/16/2015 Comp Metabolic Wmu846 Osmo 264 mOsmo 08/16/2015 Lipid Ord30 CHOL 209 mg/dL 12/03/2014 Lipid Ord30 HDL 42.0 mg/dl 12/03/2014 Lipid Ord30 TRIG 219 mg/dL 12/03/2014 Lipid Ord30 LDL 123 mg/dL 12/03/2014 Lipid Ord30 C/HDL 5.0 Ratio 12/03/2014 Comp Metabolic Hfl078 NA 132 mEq/L 12/03/2014 Comp Metabolic Uah886 K 4.0 mEq/L 12/03/2014 Comp Metabolic Lrv919 CL 101 mEq/L 12/03/2014 Comp Metabolic Kmd944 CO2 22.0 mEq/L 12/03/2014 Comp Metabolic Dxf930 ANION GAP 13 12/03/2014 Comp Metabolic Uff039 GLUCOSE 123 mg/dL 12/03/2014 Comp Metabolic Joh838 Creat 0.7 mg/dL 12/03/2014 Comp Metabolic Ous583 eGFR 97 ml/min/1.73m2 12/03/2014 Comp Metabolic Imx290 BUN 10 mg/dL 12/03/2014 Comp Metabolic Bwu159 B/C Ratio 14.7 Ratio 12/03/2014 Comp Metabolic Khn831 CALCIUM 9.2 mg/dL 12/03/2014 Comp Metabolic Sqe957 ALK PHOS 88 U/L 12/03/2014 Comp Metabolic Puu011 AST(SGOT) 18 U/L 12/03/2014 Comp Metabolic Tnd585 ALT(SGPT) 17 U/L 12/03/2014 Comp Metabolic Rsx860 BILI T 0.5 mg/dL 12/03/2014 Comp Metabolic Ibb847 ALBUMIN 3.9 g/dL 12/03/2014 Comp Metabolic Dsl199 TPRO 6.8 g/dL 12/03/2014 Comp Metabolic Zqk997 GLOB 2.9 g/dL 12/03/2014 Comp Metabolic Ugj594 A/G Ratio 1.3 Ratio 12/03/2014 Comp Metabolic Lki548 Osmo 265 mOsmo 12/03/2014 Tsh Ord6 hTSH II 1.13 uIU/mL 12/03/2014 D-Dimer D-DIMER 168 NG/ML 12/03/2014 D-Dimer [id number] COMMENT 12/03/2014 Cbc With Differential Ord2 WBC [...] Result Effective Dates Notes Full Exam - Orthopedics Constitutional general appearance [...] insertion 04/20/2017 None Full Exam - General 1995 Constitutional general appearance Overall: well developed 01/26/2017 [...] Procedure Codes Date THER/PROPH/DIAG INJ SC/IM CPT-4: 60120 06/27/2017 ROCEPHIN, PER 250 MG CPT-4: J0696 06/27/2017 IMMUNIZATION ADMIN CPT -4: 55955 03/16/2017 FLU VAC NO PRSV 4 FLETCHER 3 YRS+ CPT-4: 92276 03/16/2017 Pneumococcal Polysaccharide Vaccine, 23-Valent, Ad CPT-4: 26876 03/16/2017 IMMUNIZATION ADMIN EACH ADD CPT-4: 11863 03/16/2017 TRIAMCINOLONE ACET INJ NOS CPT-4: J3301 01/11/2017 TRIAMCINOLONE ACET INJ NOS CPT-4: J3301 02/28/2016 Vital Signs Date Vital 12/19/2017 Blood Pressure 1: 130/86 Code : 8480-6 BMI: 35.7 Code : 17579-7 Heart Rate 1 : 94 bpm Height: 5'6" Weight: 221 lbs 12/04/2017 Blood Pressure 1: 138/78 Code : 8480-6 BMI: 36.6 Code : 64520-3 Heart Rate 1 : 94 bpm Height: 5'6" SpO2: 98% Weight: 227 lbs 11/20/2017 Weight: 233 lbs 09/10/2017 Blood Pressure 1: 132/86 Code : 8480-6 Heart Rate 1: 86 bpm Height: Weight: 08/14/2017 Blood Pressure 1: 120/74 Code : 8480-6 BMI: 33.9 Code : 93581-0 Heart Rate 1 : 92 bpm Height: 5'6" SpO2: 94% Weight: 210 lbs 07/31/2017 Blood Pressure 1: 140/80 Code : 8480-6 BMI: 33.9 Code : 99196-7 Heart Rate 1 : 96 bpm Height: 5'6" SpO2: 97% Weight: 210 lbs 06/27/2017 Blood Pressure 1: 128/80 Code : 8480-6 BMI: 33.9 Code : 71061-9 Heart Rate 1 : 85 bpm Height: [...] Code : 8480-6 BMI: 39.9 Code : 44068-4 Heart Rate 1 : 79 bpm Height: 5'6" SpO2: 97% Weight: 247 lbs 01/26/2017 Blood Pressure 1: 132/74 Code : 8480-6 BMI: 37.8 Code : 02773-9 Heart Rate 1 : 74 bpm Height: 5'6" SpO2: 97% Weight: 234 lbs 01/11/2017 Blood Pressure 1: 118/68 Code : 8480-6 BMI: 38.7 Code : 61077-4 Heart Rate 1 : 91 bpm Height: 5'6" SpO2: 96% Weight: 240 lbs 11/30/2016 Blood Pressure 1: 132/76 Code : 8480-6 BMI: 38.3 Code : 59707-0 Heart Rate 1 : 71 bpm Height: 5'6" SpO2: 92% Weight: 237 lbs 09/28/2016 Blood Pressure 1: 122/72 Code : 8480-6 BMI: 39.1 Code : 07089-2 Heart Rate 1 : 88 bpm Height: 5'6" SpO2: 94% Weight: 242 lbs 08/24/2016 Blood Pressure 1: 130/87 Code : 8480-6 BMI: 41.5 Code : 90169-2 Heart Rate 1 : 95 bpm Height: 5'6" Respiratory Rate: 16 bpm SpO2: 98% Temperature: 36.9 (C) / 98.5 (F ) Weight: 257 lbs 07/13/2016 Blood Pressure 1: 132/84 Code : 8480-6 BMI: 42.0 Code : 36025-2 Heart Rate 1 : 73 bpm Height: 5'6" SpO2: 97% Weight: 260 lbs 05/19/2016 Blood Pressure 1: 138/76 Code : 8480-6 BMI: 40.8 Code : 63794-5 Heart Rate 1 : 80 bpm Height: 5'6" SpO2: 98% Weight: 253 lbs 03/16/2016 Blood Pressure 1: 122/70 Code : 8480-6 BMI: 40.4 Code : 03273-9 Heart Rate 1 : 72 bpm Height: 5'6" SpO2: 98% Weight: 250 lbs 02/28/2016 Blood Pressure 1: 136/86 Code : 8480-6 BMI: 40.2 Code : 80117-3 Heart Rate 1 : 87 bpm Height: 5'6" SpO2: 96% Temperature: 36.3 (C) / 97.3 (F) Weight: 249 lbs 01/13/2016 Blood Pressure 1: 120/76 Code : 8480-6 BMI: 40.4 Code : 53238-7 Heart Rate 1 : 68 bpm Height: 5'6" SpO2: 97% Weight: 250 lbs 09/27/2015 Blood Pressure 1: 112/70 Code : 8480-6 BMI: 38.4 Code : 93884-9 Heart Rate 1 : 76 bpm Height: 5'6" SpO2: 98% Weight: 238 lbs 08/30/2015 Blood Pressure 1: 144/82 Code : 8480-6 BMI: 39.5 Code : 83245-1 Heart Rate 1 : 82 bpm Height: 5'6" SpO2: 97% Weight: 245 lbs 08/16/2015 Blood Pressure 1: 140/72 Code : 8480-6 BMI: 38.9 Code : 61278-3 Heart Rate 1 : 72 bpm Height: 5'6" SpO2: 97% Weight: 241 lbs 07/15/2015 Blood Pressure 1: 128/80 Code : 8480-6 BMI: 39.3 Code : 82095-9 Heart Rate 1 : 86 bpm Height: 5'6" SpO2: 98% Weight: 243 lbs 8 oz 06/16/2015 Blood Pressure 1: 146/86 Code : 8480-6 BMI: 39.6 Code : 33954-9 Heart Rate 1 : 76 bpm Height: 5'6" SpO2: 97% Weight: 245 lbs 8 oz 04/02/2015 Blood Pressure 1: 132/86 Code : 8480-6 BMI: 40.7 Code : 21724-1 Heart Rate 1 : 94 bpm Height: 5'6" SpO2: 98% Weight: 252 lbs 12/02/2014 Blood Pressure 1: 122/90 Code : 8480-6 BMI: 41.6 Code : 74724-7 Heart Rate 1 : 77 bpm Height: 5'6" SpO2: 95% Weight: 258 lbs Functional Status No Functional Status data History of Present Illness Symptom Name Status Result Effective Date Notes foot pain Location on the right 12/04/2017 [...] data Encounters Encounter Performer Location Codes Date (82439) Miscellaneous no charge Diagnosis: Other obesity due to excess calories[ICD10: E66.09] Heidy Trejo MD, [facility] CPT-4: 76296 12/19/2017 61682 EST. PATIENT, LEVEL III Diagnosis: Pain in right foot[ICD10: M79.671] Diagnosis: Pain in right ankle and joints of right foot[ICD10: M25.571] Petra Trejo MD , [facility] CPT-4: 50793 12/04/2017 72558 EST. PATIENT, LEVEL III Diagnosis: Pain in left knee[ICD10: M25.562] Diagnosis: Type 2 diabetes mellitus without complications[ICD10: E11.9] Diagnosis: Other obesity due to excess calories[ICD10: E66.09] Petra Trejo MD, [facility] CPT-4: 33818 11/20/2017 01980 EST. PATIENT, LEVEL III Diagnosis: Pain in left knee[ICD10: M25.562] Petra Trejo MD, [facility] CPT -4: 58291 09/10/2017 34164 EST. PATIENT, LEVEL III Diagnosis: Encounter for follow-up examination after completed treatment for conditions other than malignant neoplasm[ICD10: Z09] Diagnosis: Pain in left knee[ICD10: M25.562] Petra Trejo MD, [facility] CPT -4: 02710 08/14/2017 11549 EST. PATIENT, LEVEL III Diagnosis: Pain in left knee[ICD10: M25.562] [facility], [facility] [facility] CPT -4: 37550 07/31/2017 24449 EST. PATIENT, LEVEL III Diagnosis: Acute laryngopharyngitis[ICD10: J06.0] Diagnosis: Other allergic rhinitis[ICD10: J30.89] Petra Trejo MD, [facility] CPT-4: 75700 06/27/2017 68165 EST. PATIENT, LEVEL III Diagnosis: Ganglion, left hand[ICD10: M67.442] Diagnosis: Essential (primary) hypertension[ICD10: I10] Diagnosis: Generalized anxiety disorder[ICD10: F41.1] Diagnosis: Other insomnia[ICD10: G47.09] Petra Trejo MD, [facility] CPT-4 : 71550 05/29/2017 24198 EST. PATIENT, LEVEL III Diagnosis: Essential (primary) hypertension[ICD10: I10] Diagnosis: Palpitations[ICD10: R00.2] Diagnosis: Generalized anxiety disorder[ICD10: F41.1] Petra Trejo MD, [facility] CPT-4: 36429 05/21/2017 69605 EST. PATIENT, LEVEL III Diagnosis: Pain in right foot[ICD10: M79.671] Petra Trejo MD, [facility] CPT-4: 04369 04/20/2017 13516 EST. PATIENT, LEVEL IV Diagnosis: Other insomnia[ICD10: G47.09] Diagnosis: Other skin changes[ICD10: R23.8] Petra Trejo MD, [facility] CPT- 4: 24693 01/26/2017 28669 EST. PATIENT, LEVEL IV Diagnosis: Acute bronchitis due to other specified organisms[ICD10: J20.8] Petra Trejo MD, [facility] CPT-4: 16183 01/11/2017 ([id number]) 13478 EST. PATIENT, LEVEL IV Diagnosis: Essential (primary) hypertension[ICD10: I10] Diagnosis: Other insomnia[ICD10: G47.09] Diagnosis: Primary generalized (osteo)arthritis[ICD10: M15.0] Diagnosis: Other obesity due to excess calories[ICD10: E66.09] Claudette Trejo MD, [facility] CPT-4: 94500 11/30/2016 ([id number]) 55806 EST. PATIENT, LEVEL III Diagnosis: Other obesity due to excess calories[ICD10: E66.09] Diagnosis: Other insomnia[ICD10: G47.09] Diagnosis: Generalized anxiety disorder[ICD10: F41.1] Claudette Trejo MD, [facility] CPT-4: 67617 09/28/2016 ([id number]) 38408 EST. PATIENT, LEVEL IV Diagnosis: Generalized anxiety disorder[ICD10: F41.1] Diagnosis: Major depressive disorder, recurrent, mild[ICD10: F33.0] Diagnosis: Other obesity due to excess calories[ICD10: E66.09] Diagnosis: Other insomnia[ICD10: G47.09] Claudette Trejo MD, [facility] CPT-4: 30480 08/24/2016 ([id number]) 50994 EST. PATIENT, LEVEL III Diagnosis: Other obesity due to excess calories[ICD10: E66.09] Diagnosis: Major depressive disorder, recurrent, moderate[ICD10: F33.1] Diagnosis: Low back pain[ICD10: M54.5] Heidy Trejo MD, [facility] CPT- 4: 20843 07/13/2016 55662 EST. PATIENT, LEVEL IV Diagnosis: Other muscle spasm[ICD10: M62.838] Diagnosis: Generalized anxiety disorder[ICD10: F41.1] Diagnosis: Major depressive disorder, recurrent, moderate[ICD10: F33.1] Diagnosis: Other insomnia[ICD10: G47.09] Petra Trejo MD, [facility] CPT-4 : 66531 05/19/2016 ([id number]) 86114 EST. PATIENT, LEVEL III Diagnosis: Generalized anxiety disorder[ICD10: F41.1] Diagnosis: Major depressive disorder, recurrent, moderate[ICD10: F33.1] Heiyd Terjo MD, [facility] CPT-4: 88018 03/16/2016 ([id number]) 34976 EST. PATIENT, LEVEL III Diagnosis: Streptococcal pharyngitis[ICD10: J02.0] Claudette Trejo MD, [facility] CPT-4: 63031 02/28/2016 ([id number]) 49835 EST. PATIENT, LEVEL III Diagnosis: Generalized anxiety disorder[ICD10: F41.1] Diagnosis: Other obesity due to excess calories[ICD10: E66.09] Heidy Trejo MD, [facility] CPT-4: 06546 01/13/2016 ([id number]) 66223 EST. PATIENT, LEVEL III Diagnosis: Generalized anxiety disorder[ICD10: F41.1] Diagnosis: Major depressive disorder, recurrent, unspecified[ICD10: F33.9] Heidy Trejo MD, [facility] CPT-4: 01372 09/27/2015 09522 EST. PATIENT, LEVEL IV Diagnosis: Chronic pain syndrome[ICD10: G89.4] Diagnosis: Other obesity due to excess calories[ICD10: E66.09] Diagnosis: Essential (primary) hypertension[ICD10: I10] Diagnosis: Generalized anxiety disorder[ICD10: F41.1] Diagnosis: Excessive and frequent menstruation with regular cycle[ICD10: N92.0] Diagnosis: Pain in right knee[ICD10: M25.561] Petra Trejo MD, [facility] CPT-4: 77026 08/30/2015 16801 EST. PATIENT, LEVEL IV Diagnosis: Palpitations[ICD10: R00.2] Diagnosis: Other obesity due to excess calories[ICD10: E66.09] Petra Trejo MD, [facility] CPT-4: 11353 08/16/2015 ([id number]) 59817 EST. PATIENT, LEVEL IV Diagnosis: Pain in right knee[ICD10: M25.561] Diagnosis: Primary generalized (osteo)arthritis[ICD10: M15.0] Diagnosis: Acute maxillary sinusitis, unspecified[ICD10: J01.00] Heidy Trejo MD, [facility] CPT-4: 26268 07/15/2015 ([id number]) 14830 EST. PATIENT, LEVEL IV Diagnosis: Primary generalized (osteo)arthritis[ICD10: M15.0] Diagnosis: Restless legs syndrome[ICD10: G25.81] Diagnosis: Chronic pain syndrome[ICD10: G89.4] Heidy Trejo MD, [facility] CPT-4: 38123 06/16/2015 ([id number]) 32312 EST. PATIENT, LEVEL III Diagnosis: Primary generalized (osteo)arthritis[ICD10: M15.0] Diagnosis: Varicose veins of bilateral lower extremities with pain[ICD10: I83.813] Claudette Trejo MD, [facility] CPT-4: 95001 ([id number]) OFFICE VISIT, NEW - LEVEL 3 Diagnosis: Osteoarthritis[ICD9: 715.90] Diagnosis: ABNORMAL WEIGHT GAIN[ICD9: 783.1] Diagnosis: Superficial thrombophlebitis[ICD9: 451.9] [facility] CPT-4: 34757 12/02/2014 Plan of Care Planned Activity Notes Codes Status Date Appointment: Nurse Visit 12/19/2017 Patient Education: Patient [...] improve. 12/04/2017 [phone] [place] ([facility] min) Moderate 12/04/2017 [...] glucose control. 11/20/2017 [facility]ment[phone] [facility] [place] (15 min) Moderate 11/20/2017 Patient [...] improve. 09/10/2017 Appointment: Petra Rivas [facility]Ptel: [facility] [place] [facility] [place] (15 min) Moderate 09/10/2017 Patient Education: Patient [...] improve. 08/14/2017 Appointment: Petra Rivas WPtel: [facility] [place] [place] [place] (30 min) Complex 08/14/2017 Patient Education: Patient Medication Summary Completed 08/14/2017 Appointment: Petra Rivas WPtel: [facility] [place] [place] [place] (15 min) Moderate 08/01/2017 Visit Plan: Knee pain - pt is to use RICE - Rest, Ice, Compression, Elevation - pt is to use crutches as directed - The pt is to use prn antiinflammatories to manage acute pain. The patient is to call the office if the pain is worsening or does not improve. 07/31/2017 Appointment: Petra Rivas WPtel: [facility] [place] [facility] [place] [place] ([facility] min) Complex 07/31/2017 Patient Education: Patient Medication Summary Completed 07/31/2017 Care Plan: X-RAY EXAM OF KNEE 3 LOINC : 55440-0 Pending 07/31/2017 Visit Plan: URI - Pt [...] allergy spray. 06/27/2017 Appointment: Petra Rivas WPtel: [facility] [place] [place] (15 min) Moderate 06/27/2017 Patient Education: Patient Medication Summary Completed 06/27/2017 Referral: Jignesh Qiunn [facility] Patient informed. Referral info faxed. Completed 06/13/2017 [...] Quinn 05/29/2017 Appointment: Petra Rivas WPtel: [facility] [place] [place] [facility] (15 min) Moderate 05/29/2017 Patient Education: Patient Medication Summary Completed 05/29/2017 Care Plan: Referral Order SNOMED-CT : 857478477 Pending 05/29/2017 Appointment: Petra Rivas WPtel: [facility] [place] [facility] [place] [facility] (15 min) Moderate 05/28/2017 Visit Plan: [...] call for acute concerns. 05/21/2017 Appointment: Petra Rivasl: [facility] [place] [facility] [place] (15 min) Moderate 05/21/2017 Patient Education: Patient Medication Summary Completed 05/21/2017 Visit Plan: Right heel pain - will send RX, pt is to do stretches as directed - The pt is to use prn antiinflammatories to manage acute pain. The patient is to call the office if the pain is worsening or does not improve. 04/20/2017 Appointment: Petra Rivas: [address] [place], [place] [id number] (30 min) Complex 04/20/2017 Patient Education: Patient Medication Summary Completed 04/20/2017 Appointment: Petra Rivasl: [address] [place], [place] [address] (30 min) Complex 03/29/2017 Patient Education: Patient Medication Summary Completed 03/16/2017 Referral: Maycol Quijano Referral Initiated 02/08/2017 Care Plan: Referral Order SNOMED-CT : [id number] Pending 01/28/2017 Visit Plan: Insomnia - Pt [...] concerns. 01/26/2017 Appointment: Petra Rivas WPtel: [phone] [facility] (30 min) Complex 01/26/2017 Patient Education: [...] worsen. 01/11/2017 Appointment: Petra Rivas WPtel: [phone] [facility] (15 min) Moderate 01/11/2017 Patient Education: [...] on use. 11/30/2016 Appointment: Claudette Savage WPtel: [phone] [phone] (15 min) Moderate 11/30/2016 Patient Education: Patient Medication Summary Completed 11/30/2016 Patient Education: Obesity Completed 11/30/2016 Care Plan: BMI Above normal followup SELF-MGMT EDUC & TRAIN 1 PT Pending 2016 Visit Plan: Kgluodx-diedekgfou-uawcjwlp with increase in cymbalta-no changes Insomnia-RX for belsomra provided and instructed on use Obesity-patient down 15#-no changes-continue diet/exercise-follow up in 2 months 09/28/2016 Appointment: Claudette Savage WPtel: [facility] [place] [facility] [place] [phone] (15 min) Moderate 09/28/2016 Patient Education: Patient Medication Summary Completed 09/28/2016 Patient Education: Obesity Completed 09/28/2016 Care Plan: BMI Above normal followup SELF-MGMT EDUC & TRAIN 1 PT Pending 2016 Visit Plan: Rlnmgct-waolrnfhtj-vfqqlszm-increase cymbalta to 60mg daily. Increase xanax as [...] for insomnia/anxiety 08/24/2016 Appointment: Claudette Savage WPtel: [facility] [place] [phone] [place] (15 min) Moderate 08/24/2016 Patient Education: [...] not improving. 07/13/2016 Appointment: Heidy Trejo WPtel: [facility] [place] [place] [facility] [address] [place] (15 min) Moderate 07/13/2016 Patient Education: [...] insomnia. 05/19/2016 Appointment: Petra Rivas WPtel: [phone] [facility] (30 min) Complex 05/19/2016 Patient Education: [...] this patient. 03/16/2016 [phone] ([facility] min) Moderate 03/16/2016 Patient Education: [...] swab. 02/28/2016 Appointment: Claudette Savage WPtel: [phone] [phone] (10 min) Simple 02/28/2016 Patient Education: [...] pills twice daily. stop lexapro 01/13/2016 Appointment: Maya Heidy WPtel: [facility] [place] [facility] [place] [facility] (15 min) Moderate 01/13/2016 Patient Education: [...] 09/27/2015 Care Plan: Referral Order SNOMED-CT : [id number] Pending 08/31/2015 Visit Plan: Anxiety - the [...] pain symptoms. 07/15/2015 Appointment: Heidy Trejo WPtel: [phone] [facility] [address] [place] (15 min) Moderate 07/15/2015 Patient Education: [...] vein clinic 04/02/2015 Appointment: Claudette Savage WPtel: [phone] [phone] [place] (15 min) Moderate 04/02/2015 Patient [...] Summary Completed 12/02/2014 Referral: Belle Hoffman WPtel: [address] [place], [place] [address] they will call and set the appt with her Initiated Referral: Maycol Quijano Referral Initiated Referral: [phone] [facility]: [facility] [place] [facility] Initiated Instructions Comment . Hypertension [...] 1 mg at night for anxiety . Sjgvpwp-jhrjlpdelo-rbqutatv-increase cymbalta to 60mg daily. Increase xanax as [...] worsening or does not improve. BELSOMRA . Xwkvxsx-xrbrgbfocu-kesemgxy with increase in cymbalta-no changes Insomnia-RX for [...]
[2018-07-25 00:31] LABS: BILIRUBIN,URINE NEGATIVE (NEGATIVE); CLARITY,URINE CLEAR; COLOR,URINE YELLOW; GLUCOSE, URINE (UA) 4+ (NEGATIVE); KETONES,URINE NEGATIVE (NEGATIVE); LEUKOCYTE ESTERASE ,URINE NEGATIVE (NEGATIVE); NITRITE,URINE NEGATIVE (NEGATIVE); PH,URINE 6.5 (5-9); PROTEIN,URINE NEGATIVE (NEGATIVE); UROBILINOGEN,URINE NORMAL (NORMAL)
[2018-07-25 00:38] LABS: BACTERIA,URINE TRACE /HPF
[2018-07-25] MEDS ORDERED: SUCR1TAB36 PO (01:32)
[2018-07-25 01:38] VITALS: BP 115/78
--- NOTE | 2018-07-25 08:19 | Diagnostic Imaging Report ---
CHEST 1 VIEW, AP/PA ONLY Indication: Dyspnea. Comparison: 08/07/2017 Findings: No focal airspace disease in the visualized lungs. Please note that the posterior lower lobes are poorly evaluated by portable radiography. No pleural effusion or pneumothorax. Normal cardiomediastinal silhouette. Impression: No acute cardiopulmonary process by portable radiography. Dictated by: Dictated on workstation # [id number]
--- NOTE | 2018-07-25 08:38 | Diagnostic Imaging Report ---
PROCEDURE: CT abdomen and pelvis with contrast. TECHNIQUE: Multiple contiguous axial images were obtained through the abdomen and pelvis after administration of intravenous contrast. INDICATION: Abdominal pain CORRELATION STUDY: None. FINDINGS: LOWER THORAX: Clear. LIVER: Liver is enlarged and demonstrates fatty attenuation. No focal lesion. GALLBLADDER: Present and unremarkable. No bile duct dilatation. SPLEEN: Unremarkable. PANCREAS: Unremarkable. ADRENAL GLANDS: Approximately 14 x 9 mm low-density nodularity of the right adrenal gland body. This may reflect small adenoma but incompletely characterized. KIDNEYS: Small, 4 x 6 mm nonobstructing stone interpolar region left kidney. No hydronephrosis. ABDOMINAL AORTA: Minimal wall calcification, nonaneurysmal. GASTROINTESTINAL TRACT: Stomach contains retained gastric contents. Small bowel without obstruction. Colon demonstrates no obstruction or inflammation. Appendix not defined. URINARY BLADDER: Unremarkable. REPRODUCTIVE: Post hysterectomy. OSSEOUS STRUCTURES: There is a multi-septated complex periumbilical region ventral hernia. No bowel involvement. OTHER: None. IMPRESSION: 1. Multiseptated, fat-containing periumbilical region ventral hernia. No bowel involvement. 2. Hepatomegaly with hepatic steatosis. 3. Nonobstructing left renal stones. A preliminary report was provided by [employer]. Dictated by: Dictated on workstation # [id number]
[2018-07-26] MEDS ORDERED: ACHD5005 PO (08:52)
== END 2018-07-25 01:38 | disposition home or self-care (01) ==
LOC: EDUNIT# 22:42 → ER 22:43
DX: K80.50 Calculus of bile duct without cholangitis or cholecystitis without obstruction (principal); K29.70 Gastritis, unspecified, without bleeding; G43.909 Migraine, unspecified, not intractable, without status migrainosus; R73.9 Hyperglycemia, unspecified; J45.909 Unspecified asthma, uncomplicated; F41.9 Anxiety disorder, unspecified; Z88.0 Allergy status to penicillin; Z79.82 Long term (current) use of aspirin; Z82.49 Family history of ischemic heart disease and other diseases of the circulatory system; Z87.891 Personal history of nicotine dependence; Z90.710 Acquired absence of both cervix and uterus
CPT/HCPCS: 36415; 71045; 74177; 80053; 81000; 83690; 83735; 83874; 83880; 84484; 85007; 85027; 85610; 85730; 86141; 93005; 93041

== ENCOUNTER 2018-07-26 06:15 | Day surgery (SDC) | payer OTHER ==
[~2018-07-26] VITALS: Ht 167.6 cm; Wt 109.3 kg
[~2018-07-26 06:15] MED LIST changes: +DULO30CA48; +ESCI20TA45; +FURO20TA4; +HYDR25TA4; +MELO7.5T46; +MIRT15TA6; +PANT40TA3; +PHEN37.53; +POTA10TA10; +SUCR1TAB36 PO
[2018-07-26] MEDS ORDERED: LACTATED RINGERS 1,000 ML IV PRN (06:38)
[2018-07-26 06:40] VITALS: BP 121/84
[2018-07-26] MEDS ORDERED: ROCURONIUM 10 MG/ML 5 ML SYRINGE IV ONE (06:58)
[2018-07-26] MEDS ORDERED: NEOSTIGMINE 1 MG/ML 5 ML SYRINGE ONE (06:58)
[2018-07-26] MEDS ORDERED: ONDANSETRON 4 MG/2 ML (SDV) Z0FRAN ONE (06:58)
[2018-07-26] MEDS ORDERED: LIDOCAINE PF 2% 5 ML (XYLOCAINE) VIAL ONE (06:58)
[2018-07-26] MEDS ORDERED: GLYCOPYRROLATE 0.2 MG/ML (ROBINUL) 2 ML VIAL ONE (06:58)
[2018-07-26] MEDS ORDERED: SEVOFLURANE (ULTANE) 15 ML INHAL SOLN ONE (06:58)
[2018-07-26] MEDS ORDERED: proPOfol 200 MG/20 ML (DIPRIVAN) VIAL IV ONE (06:58)
[2018-07-26] MEDS ORDERED: MIDAZOLAM 2 MG/2 ML (VERSED) VIAL ONE ×2 (06:59→07:25)
[2018-07-26] MEDS ORDERED: fentaNYL INJECTION 250 MCG/5 ML AMP ONE (06:59)
[2018-07-26] MEDS ORDERED: FAMOTIDINE 20MG/2ML IV (PEPCID) IV ONE (07:00)
[2018-07-26] MEDS ORDERED: CLINDAMYCIN 600 MG/50 ML IVPB 50 ML IV ONE (07:15)
[2018-07-26] MEDS ORDERED: CATHETER FLUSH 10 ML SYR IV PRN (07:15)
[2018-07-26] MEDS ORDERED: MIDAZOLAM 2 MG/2 ML (VERSED) VIAL IV ONE (07:30)
[2018-07-26] MEDS ORDERED: BUP/EPI 0.5% 1:200,000 (SENSORCAINE) 30 ML VIAL ONE (07:32)
[2018-07-26] MEDS ORDERED: LIDOCAINE 1% INJ 20 ML 20 ML VIAL ONE (07:32)
--- NOTE | 2018-07-26 08:09 | Progress Note-Pre Operative ---
Pre-Operative Progress Note H&P Reviewed The H&P was reviewed, patient examined and no changes noted. Date Seen by Provider: Jul 26, 2018 Time Seen by Provider: 07:50 Date H&P Reviewed: Jul 26, 2018 Time H&P Reviewed: 07:50 Pre-Operative Diagnosis: calculous of gallbladder, chronic cholecystitis ZANDER GUILLEN DO Jul 26, 2018 08:09
--- NOTE | 2018-07-26 08:51 | Progress Note-Post Operative ---
Post-Operative Progess Note Surgeon (s)/Rn Transfer (s) Surgeon KELLI DOWELL DO Rn Transfer: Darin Pre-Operative Diagnosis calculous of gallbladder, chronic cholecystitis Post-Operative Diagnosis Same pending path Procedure & Operative Findings Date of Procedure 07/26/18 Procedure Performed/Findings Lap Erika with IOC Anesthesia Type GET Estimated Blood Loss Estimated blood loss (mL): scant Specimens/Packing Specimens Removed GB and contents KELLI DOWELL DO Jul 26, 2018 08:51
[2018-07-26] MEDS ORDERED: ACHD5005 PO (08:52)
--- NOTE | 2018-07-26 08:53 | Discharge Inst-Surgical ---
Discharge Inst-Surgical Depart Medication/Instructions New, Converted or Re-Newed RX: RX Given to Pt/Family Patient Instructions Follow up Appt: Make appointment for 1 week. [phone] Instructions: No lifting greater than 20 pounds. No strenuous activity. May shower in 24 hours, no tub bath or soaking. Use incentive spirometer at home as directed. No Smoking Skin/Wound Care: May remove bandages in am. You need to leave the Dermabond on incision it will fall off on it's own. Symptoms to Report: Appetite Changes, Extremity Discoloration, Numbness/Tingling, Swelling Increased , Bleeding Excessive, Eyesight Changes, Pain Increased, Urine Color Change, Constipation(Persistent), Fever over 101 degree F, Pain/Pressure in chest, Urinating Difficulty, Cough Up/Vomit Blood, Heart Beat Irreg/Pounding, Pain/ Pressure in jaw, Cramps in feet or legs, Lightheadedness, Pain/Pressure in shoulder, Diarrhea(Persistent), Memory Changes Suddenly, Questions/Concerns, Weight gain consecutive days, Dizziness/Fainting, Nausea/Vomiting, Shortness of Breath, Weight gain over 2 pounds If questions or concerns contact your physician Or seek help at emergency department. Activity Activity as Tolerated: Yes Activity Instructions: Avoid Stress to Incision Driving Instructions: No Driving/Refer to Diet Discharge Diet: Avoid Fatty Foods, Low Fat/Low Cholesterol Diet After 24 Hours: Clear Liquid if Nauseous If Any Problems/Questions/Issu: Contact Your Physician, Go to Emergency Room Skin/Wound Care Infection Signs and Symptoms: Increased Redness, Foul Odor of Wound, Increased Drainage, Skin Itchy or Has a Rash, Increased Swelling, Temperature Above 101 F Wound Care Comment: heating pad to neck or shoulder for pain tonight Bathing Instructions: Shower Stitches/Arbuckle/Dermabond Dis: Dermabond Ice Pack: Ice On and Off Site KELLI DOWELL DO Jul 26, 2018 08:53
[2018-07-26] MEDS ORDERED: HYDROmorphone 2 MG/ML VIAL (DILAUDID) IV ONE (09:30)
[2018-07-26] MEDS ORDERED: ONDANSETRON 4 MG/2 ML (SDV) Z0FRAN IVP PRN (09:30)
[2018-07-26] MEDS ORDERED: morphine INJ 10 MG/ML 1ML (SYR OR VIAL) IVP ONE (09:30)
--- NOTE | 2018-07-26 09:50 | Anesthesia-General Post-Op ---
General Patient Condition Mental Status/LOC: Same as Preop Cardiovascular: Satisfactory Nausea/Vomiting: Absent Respiratory: Satisfactory Pain: Controlled Complications: Absent Post Op Complications Complications None Follow Up Care/Instructions Patient Instructions None needed. Anesthesia/Patient Condition Patient Condition Patient is doing well, no complaints, stable vital signs, no apparent adverse anesthesia problems. No complications reported per nursing. PENNIE GARZA CRNA Jul 26, 2018 09:50
[2018-07-26 10:15] VITALS: BP 103/56
[2018-07-26 10:20] VITALS: BP 103/56
[2018-07-26 10:45] VITALS: BP 96/66
[2018-07-26 11:15] VITALS: BP 103/66
[2018-07-26] MEDS ORDERED: HYDROcodone/APAP 5 MG/325 MG (LORTAB) TAB ONE (11:39)
[2018-07-26] MEDS ORDERED: HYDROcodone/APAP 5 MG/325 MG (LORTAB) TAB PO ONE (11:40)
--- NOTE | 2018-07-26 12:41 | Diagnostic Imaging Report ---
Indication: Fluoroscopy during intraoperative cholangiogram. Fluoroscopy was provided for Dr. Oliveira during intraoperative cholangiogram. 8 seconds of fluoroscopy was utilized. Images demonstrate contrast being injected via the cystic duct remnant. Intrahepatic and extrahepatic bile ducts are unremarkable. No filling defects are seen. There is flow of contrast into the duodenum. Impression: Fluoroscopy for intraoperative cholangiogram. Dictated by: Dictated on workstation # [id number]
--- NOTE | 2018-07-26 16:13 | OPERATIVE REPORT ---
DATE OF SERVICE: 07/26/2018 PREOPERATIVE DIAGNOSES: Cholecystitis, cholelithiasis. POSTOPERATIVE DIAGNOSES: Cholecystitis, cholelithiasis, pending pathology. PROCEDURE: Laparoscopic cholecystectomy, intraoperative cholangiogram. SURGEON: Heladio Oliveira DO. PHYSICAL THERAPY AIDES TEACHER: Donaldo Webster DO. ANESTHESIA: General endotracheal tube. SPECIMEN: Gallbladder and contents. BLOOD LOSS: Scant. FLUIDS: Per anesthesia. POSTOPERATIVE CONDITION: Stable. INDICATION FOR PROCEDURE: The patient is a 53-year-old female who presented to my office yesterday with severe pain, nausea, questionable vomiting and had ultrasound, which showed a thickened gallbladder wall, stones and patient was having signs and symptoms of cholecystitis, cholelithiasis, possibly acute. FINDINGS: The patient had adhesions of the gallbladder usually indicative of previous gallbladder attacks. She also had an incarcerated umbilical hernia. Pictures taken. PROCEDURE NOTE: After informed consent was obtained, the patient was brought to the operating room, placed on the table in supine position. She was sterilely prepped and draped in normal fashion. Local lidocaine was used to infiltrate the skin above the umbilicus and the site of previous incision then made an incision with #11 blade, carried down through the skin into subcutaneous tissue, deepened down to subcutaneous tissue with Bovie electrocautery down to the fascia. Fascia was incised with Bovie electrocautery then bluntly entered the abdomen, swept the finger around, placed an 11 mm trocar port under direct visualization. Created pneumoperitoneum and then placed 2 more ports in normal fashion using local lidocaine, 11 blade for stab incision and VersaStep system, all done under direct visualization, one subxiphoid and 2 in the right upper quadrant. The patient was then placed in slightly Trendelenburg, reversed, and normally rotated left, able to visualize the gallbladder. I had to take some adhesions down to be able to grasp the fundus, taken in superior direction to continue taking adhesions down with blunt dissection as well as Bovie electrocautery removing omentum as well as the duodenum, pushing the duodenum very gently then able to grasp down the Spencer's pouch and pulled in the inferolateral direction, start dissecting out the cystic duct and cystic artery. Able to get around the cystic duct and the cystic artery, I placed 1 clip distally on the cystic duct and then one distally and one proximally on the cystic artery. Cut the cystic duct long-term through Metzenbaum scissors. Placed a cholangiogram catheter and shot a cholangiogram. Good spillage of dye down the common bile duct into the small intestine as well as up into common hepatic and right and left hepatics. Then, removed the cholangiogram catheter, placed 2 clips proximally on the cystic duct and cut the cystic duct and then cystic artery with Metzenbaum scissors. Then, removed the gallbladder from bed of liver with L-hook cautery, which was removed, placed a bag in the abdomen, placed the gallbladder in the bag and then removed this through a supraumbilical incision. Placed the port back in the abdomen, copiously irrigated with normal saline, suctioned this out, little bit of bleeding from the bottom of the liver controlled with Bovie electrocautery and elected to place a Surgicel. Looked back, took a picture of the incarcerated umbilical hernia and then placed the patient supine, removed all ports under direct visualization allowed pneumoperitoneum to escape. Closed the supraumbilical incision with 0 Vicryl acjeio-gv-ajmdm suture then copiously irrigated all incisions with normal saline and closed the 3 small 5 mm incisions with single interrupted 4-0 undyed Monocryl subcuticular stitch. Closed supraumbilical incision with 3 interrupted 4-0 undyed Monocryl subcuticular stitches. Area was cleaned and dried. Dermabond was placed as well as Band-Aid. The patient was then transferred to recovery room in stable condition. The patient was in the operating room while we were finishing this. She will be transferred to recovery room. Sponge, instrument and needle count correct at the end of the case. Job ID: [id number] DocumentID: [id number] Dictated Date: 07/26/2018 08:50:46 Barytes Grinder Date: 07/26/2018 16:13:30 Dictated By: HELADIO OLIVEIRA DO
== END 2018-07-26 11:45 | disposition home or self-care (01) ==
LOC: SDC 06:15
PROVIDERS: ATTEND Surgery
DX: K81.1 Chronic cholecystitis (principal); K42.0 Umbilical hernia with obstruction, without gangrene; K21.9 Gastro-esophageal reflux disease without esophagitis; E11.9 Type 2 diabetes mellitus without complications; I10 Essential (primary) hypertension; E78.5 Hyperlipidemia, unspecified; F17.290 Nicotine dependence, other tobacco product, uncomplicated; E66.9 Obesity, unspecified; Z68.39 Body mass index [BMI] 39.0-39.9, adult; Z79.899 Other long term (current) drug therapy
CPT/HCPCS: 82962; 87081; 94664

== ENCOUNTER 2018-10-10 05:46 | Outpatient (CLI) | payer OTHER ==
[~2018-10-10] VITALS: Ht 167.6 cm; Wt 109.3 kg
[~2018-10-10 05:46] MED LIST changes: -DULO30CA48; +DULO30CA48 PO; -ESCI20TA45; +ESCI20TA45 PO
[2018-10-10] MEDS ORDERED: ATOR20TA66 PO (14:06)
== END 2018-10-10 14:14 | disposition home or self-care (01) ==
LOC: PREOP 05:46
PROVIDERS: ATTEND Surgery
DX: Z01.818 Encounter for other preprocedural examination (principal)

== ENCOUNTER 2018-10-14 12:08 | Day surgery (SDC) | payer OTHER ==
[~2018-10-14] VITALS: Ht 167.6 cm; Wt 109.3 kg
[2018-10-14 12:15] VITALS: BP 128/95
[2018-10-14] MEDS ORDERED: LACTATED RINGERS 1,000 ML IV ONE (12:21)
--- OUTSIDE RECORDS SUMMARY | 2018-10-14 12:31 | XMS REPORT | CCD ---
Author Author [place] Organization [facility] Address [address] [place] [address] Phone Care Team Providers Care Item Processing Clerk Name Role Phone PP Unavailable CCM Unavailable Summary Purpose Interface Exchange Insurance Providers Payer name Policy type / Coverage type Covered republican ID Effective Begin Date Effective End Date [facility] Commercial Insurance [id number] Unknown Family history Brother Diagnosis Age At [...] Description Effective Dates Tobacco history SNOMED CT: 2548699 Quit less than 5 years ago 04/02/2015 Alcohol history Unknown occasionally drinks alcohol 04/02/2015 Marital status Unknown Manuel Vitale 12/02/2014 Number of children Unknown 3 12/02/2014 Allergies, Adverse Reactions, Alerts Substance Reaction Codes Entered Date Inactivated Date Status * NO KNOWN FOOD ALLERGIES Unknown 12/02/2014 No Inactive Date Active Penicillin Unknown 12/02/2014 No Inactive Date Active tramadol RxNorm: 69684 12/02/2014 No Inactive Date Active Past Medical History Illness Codes Condition Status Onset Date Resolved Date Essential (primary) hypertension ICD-9: 401.1 ICD-10: I10 Active 03/14/2018 Unknown Gastro-esophageal reflux disease without esophagitis ICD-9: 530.81 ICD-10: K21.9 Active 09/23/2018 Unknown Pain in left knee ICD-9: 719.46 ICD-10: M25.562 Active 07/31/2017 Unknown Dysuria ICD-9: 788.1 ICD-10: R30.0 Active 08/26/2018 Unknown Other obesity due to excess calories ICD-9: 278.00 ICD-10: E66.09 Active 01/12/2016 Unknown Type 2 diabetes mellitus with hyperglycemia ICD-9: 250.02 ICD-10: E11.65 Active 08/26/2018 Unknown Type 2 diabetes mellitus without complications ICD-9: 250.00 ICD-10: E11.9 Active 11/20/2017 Unknown Acute laryngopharyngitis ICD-9: 465.0 ICD-10: J06.0 [...] G47.09 Active 05/18/2016 Unknown Other chest pain ICD-9: 786.59 ICD-10: R07.89 Active 04/24/2018 Unknown Major depressive disorder, recurrent, mild ICD-9: 296.31 ICD-10: F33.0 Active 08/24/2016 Unknown Localized edema ICD-9: 782.3 ICD-10: R60.0 Active 03/14/2018 Unknown Generalized anxiety disorder ICD-9: 300.02 ICD-10: F41.1 Active 08/24/2016 Unknown Pain in right ankle and joints of right foot ICD-9: 719.47 ICD-10: M25.571 Active 12/04/2017 Unknown Pain in right foot ICD- 9: 729.5 ICD-10: M79.671 Active 04/20/2017 Unknown Diabetes Unknown Active 11/20/2017 Unknown Encounter for follow-up examination after completed treatment for conditions other than malignant neoplasm ICD-9: V67.9 ICD-10: Z09 Active 08/14/2017 Unknown Essential (primary) hypertension ICD-9: 401.9 ICD-10: I10 Active 08/29/2015 Unknown Ganglion, left hand ICD- 9: 727.43 ICD-10: M67.442 Active 05/29/2017 Unknown Generalized anxiety disorder ICD-9: 308.0 ICD-10: F41.1 Active 05/18/2016 Unknown Palpitations ICD-9: 785.1 ICD-10: R00.2 Active 08/15/2015 Unknown Encounter for immunization ICD-9: V03.82 ICD-10: Z23 Active 03/16/2017 Unknown VACCIN FOR INFLUENZA ICD- 9: V04.81 ICD-10: Z23 Active 03/16/2017 Unknown Other skin changes ICD- 9: 782.9 ICD-10: R23.8 Active 01/26/2017 Unknown Acute bronchitis due to other specified organisms ICD-9: 466.0 ICD-10: J20.8 Active 01/11/2017 Unknown Chronic pain syndrome ICD- 9: 338.4 ICD-10: G89.4 Active 08/29/2015 Unknown Primary generalized (osteo)arthritis ICD-9: 715.09 ICD-10: M15.0 Active 07/14/2015 Unknown Hypertension Unknown Active 09/28/2016 Unknown Low back pain ICD-9: 724.2 ICD-10: M54.5 Active 07/13/2016 Unknown Major depressive disorder, recurrent, moderate ICD-9: 296.32 ICD-10: F33.1 Active 05/18/2016 Unknown Other muscle spasm ICD- 9: 728.85 ICD-10: M62.838 Active 05/18/2016 Unknown Streptococcal pharyngitis ICD-9: 034.0 ICD-10: J02.0 Active 02/27/2016 Unknown Major depressive disorder, recurrent, unspecified ICD-9: 296.30 ICD-10: F33.9 Active 09/26/2015 Unknown Excessive and frequent menstruation with regular cycle ICD-9: 626.2 ICD-10: N92.0 Active 08/29/2015 Unknown Pain in right knee ICD- 9: 719.46 ICD-10: M25.561 Active 08/29/2015 Unknown Acute maxillary sinusitis, unspecified ICD-9: 461.0 ICD-10: J01.00 Active 07/14/2015 Unknown Restless legs syndrome ICD-9: 333.94 ICD-10: G25.81 Active 06/15/2015 Unknown Varicose veins of bilateral lower extremities with pain ICD-9: 454.8 ICD-10: I83.813 Active 04/01/2015 Unknown Osteoarthritis Unknown Active 12/02/2014 Unknown ABNORMAL WEIGHT GAIN ICD- 9: 783.1 Active 12/01/2014 Unknown Osteoarthritis ICD-9: 715.90 Active 12/01/2014 Unknown Problems Condition Codes Effective Dates Condition Status Essential (primary) hypertension ICD-9: 401.1 ICD-10: I10 03/14/2018 Active Gastro-esophageal reflux disease without esophagitis ICD-9: 530.81 ICD-10: K21.9 09/23/2018 Active Pain in left knee ICD-9: 719.46 ICD-10: M25.562 07/31/2017 Active Dysuria ICD-9: 788.1 ICD-10: R30.0 08/26/2018 Active Other obesity due to excess calories ICD-9: 278.00 ICD-10: E66.09 01/12/2016 Active Type 2 diabetes mellitus with hyperglycemia ICD-9: 250.02 ICD-10: E11.65 08/26/2018 Active Type 2 diabetes mellitus without complications ICD-9: 250.00 ICD-10: E11.9 11/20/2017 Active Acute laryngopharyngitis ICD-9: 465.0 ICD-10: J06.0 [...] ICD-10: G47.09 05/18/2016 Active Other chest pain ICD-9: 786.59 ICD-10: R07.89 04/24/2018 Active Major depressive disorder, recurrent, mild ICD-9: 296.31 ICD-10: F33.0 08/24/2016 Active Localized edema ICD-9: 782.3 ICD-10: R60.0 03/14/2018 Active Generalized anxiety disorder ICD-9: 300.02 ICD-10: F41.1 08/24/2016 Active Pain in right ankle and joints of right foot ICD-9: 719.47 ICD-10: M25.571 12/04/2017 Active Pain in right foot ICD- 9: 729.5 ICD-10: M79.671 04/20/2017 Active Diabetes Unknown 11/20/2017 Active Encounter for follow-up examination after completed treatment for conditions other than malignant neoplasm ICD-9: V67.9 ICD-10: Z09 08/14/2017 Active Essential (primary) hypertension ICD-9: 401.9 ICD-10: I10 08/29/2015 Active Ganglion, left hand ICD- 9: 727.43 ICD-10: M67.442 05/29/2017 Active Generalized anxiety disorder ICD-9: 308.0 ICD-10: F41.1 05/18/2016 Active Palpitations ICD-9: 785.1 ICD-10: R00.2 08/15/2015 Active Encounter for immunization ICD-9: V03.82 ICD-10: Z23 03/16/2017 Active VACCIN FOR INFLUENZA ICD- 9: V04.81 ICD-10: Z23 03/16/2017 Active Other skin changes ICD- 9: 782.9 ICD-10: R23.8 01/26/2017 Active Acute bronchitis due to other specified organisms ICD-9: 466.0 ICD-10: J20.8 01/11/2017 Active Chronic pain syndrome ICD- 9: 338.4 ICD-10: G89.4 08/29/2015 Active Primary generalized (osteo)arthritis ICD-9: 715.09 ICD-10: M15.0 07/14/2015 Active Hypertension Unknown 09/28/2016 Active Low back pain ICD-9: 724.2 ICD-10: M54.5 07/13/2016 Active Major depressive disorder, recurrent, moderate ICD-9: 296.32 ICD-10: F33.1 05/18/2016 Active Other muscle spasm ICD- 9: 728.85 ICD-10: M62.838 05/18/2016 Active Streptococcal pharyngitis ICD-9: 034.0 ICD-10: J02.0 02/27/2016 Active Major depressive disorder, recurrent, unspecified ICD-9: 296.30 ICD-10: F33.9 09/26/2015 Active Excessive and frequent menstruation with regular cycle ICD-9: 626.2 ICD-10: N92.0 08/29/2015 Active Pain in right knee ICD- 9: 719.46 ICD-10: M25.561 08/29/2015 Active Acute maxillary sinusitis, unspecified ICD-9: 461.0 ICD-10: J01.00 07/14/2015 Active Restless legs syndrome ICD-9: 333.94 ICD-10: G25.81 06/15/2015 Active Varicose veins of bilateral lower extremities with pain ICD-9: 454.8 ICD-10: I83.813 04/01/2015 Active Osteoarthritis Unknown 12/02/2014 Active ABNORMAL WEIGHT GAIN ICD- 9: 783.1 12/01/2014 Active Osteoarthritis ICD-9: 715.90 12/01/2014 Active Medications Medication Codes Instructions Start Date Stop Date Status Fill Instructions cyclobenzaprine 5 mg tablet RxNorm: 017962 1 Tablet(s) PO TID as needed 10/03/2018 No Stop Date Active potassium chloride ER 10 mEq tablet,extended release RxNorm: 718685 1 TABLET(S) PO DAILY NEEDED TO TAKE WHEN YOU TAKE THE LASIX 10/02/2018 12/30/2018 Active Lasix 20 mg tablet RxNorm: 732176 1 TABLET(S) PO DAILY NEEDED EDEMA 10/02/2018 12/30/2018 Active hydrochlorothiazide 25 mg tablet RxNorm: 977952 1 TABLET(S) PO DAILY 09/19/2018 12/17/2018 Active Saxenda 3 mg/0.5 mL (18 mg/3 mL) subcutaneous pen injector RxNorm: 6615899 1.8 Milligram(s) SQ daily 08/28/2018 12/25/2018 Active disp qty sufficient- [place] approved Saxenda 3 mg/0.5 mL (18 mg/3 mL) subcutaneous pen injector RxNorm: 7309517 1.8 Milligram(s) SQ daily 08/28/2018 08/27/2018 Inactive disp qty sufficient Saxenda 3 mg/0.5 mL (18 mg/3 mL) subcutaneous pen injector RxNorm: 1027223 1.8 Milliliter(s) SQ daily 08/27/2018 08/27/2018 Inactive disp qty sufficient Xanax 1 mg tablet RxNorm: 748001 1-2 Tablet(s) PO QHS as needed insomnia 08/26/2018 11/23/2018 Active metformin 500 mg tablet RxNorm: 482195 1 Tablet(s) PO BID 08/26/2018 12/23/2018 Active Keflex 500 mg capsule RxNorm: 491515 1 Capsule(s) PO TID 08/26/2018 09/01/2018 Inactive Protonix 40 mg tablet,delayed release RxNorm: 864106 1 TABLET(S) PO DAILY 08/12/2018 12/09/2018 Active metformin 500 mg tablet RxNorm: 590008 1 Tablet(s) PO daily 08/12/2018 08/25/2018 Inactive Lasix 20 mg tablet RxNorm: 850091 1 TABLET(S) PO DAILY NEEDED EDEMA 08/06/2018 10/01/2018 Inactive potassium chloride ER 10 mEq tablet,extended release RxNorm: 308969 1 TABLET(S) PO DAILY NEEDED TO TAKE WHEN YOU TAKE THE LASIX 08/06/2018 10/01/2018 Inactive Zorvolex 35 mg capsule RxNorm: 7490101 TAKE 1 CAPSULE BY MOUTH THREE (3) TIMES DAILY 08/02/2018 11/29/2018 Active prednisone 20 mg tablet RxNorm: 762642 Tablet(s) PO 07/17/2018 No Stop Date Active 20mg tonight then starting tomorrow: 60,60,40,40,20,20,10,10 Remeron 15 mg tablet RxNorm: 445628 1/2 Tablet(s) PO QHS 07/17/2018 2019 Active Tamiflu 75 mg capsule RxNorm: 520657 1 Capsule(s) PO BID 07/17/2018 07/21/2018 Inactive Kenalog 40 mg/mL suspension for injection RxNorm: 5553383 Milliliter(s) Inj 07/17/2018 07/17/2018 Inactive Lexapro 20 mg tablet RxNorm: 968263 1 TABLET(S) PO DAILY 07/15/2018 11/11/2018 Active potassium chloride ER 10 mEq tablet,extended release RxNorm: 752642 1 Tablet(s) PO daily as needed to take when you take the lasix 07/04/2018 08/02/2018 Inactive Lasix 20 mg tablet RxNorm: 089085 1 Tablet(s) PO daily as needed edema 07/04/2018 08/02/2018 Inactive Cymbalta 30 mg capsule,delayed release RxNorm: 086183 1 CAPSULE(S) PO DAILY TO BE TAKEN WITH 60MG TO=90MG 07/01/2018 07/14/2018 Inactive hydrochlorothiazide 25 mg tablet RxNorm: 844071 1 TABLET(S) PO DAILY 06/27/2018 09/18/2018 Inactive Remeron 15 mg tablet RxNorm: 181244 1/2 Tablet(s) PO QHS 06/20/2018 07/16/2018 Inactive Lasix 20 mg tablet RxNorm: 171223 1 Tablet(s) PO daily 06/19/2018 06/21/2018 Inactive potassium chloride ER 10 mEq tablet,extended release RxNorm: 188610 1 Tablet(s) PO daily 06/19/2018 07/03/2018 Inactive Lexapro 20 mg tablet RxNorm: 581601 1 Tablet(s) PO daily 06/19/2018 07/14/2018 Inactive gabapentin 300 mg capsule RxNorm: 880673 1 CAPSULE(S) PO TID 06/14/2018 08/12/2018 Inactive Ambien 10 mg tablet RxNorm: 602750 1 Tablet(s) PO QHS as needed insomnia 06/10/2018 09/07/2018 Inactive Cymbalta 30 mg capsule,delayed release RxNorm: 949205 1 Capsule(s) PO daily 06/03/2018 06/02/2018 Inactive Cymbalta 30 mg capsule,delayed release RxNorm: 177214 1 Capsule(s) PO daily to be taken with 60mg to=90mg 06/03/2018 06/30/2018 Inactive Protonix 40 mg tablet,delayed release RxNorm: 559930 1 TABLET(S) PO DAILY 05/20/2018 08/11/2018 Inactive gabapentin 300 mg capsule RxNorm: 469931 1 CAPSULE(S) PO TID 05/15/2018 06/13/2018 Inactive Protonix 40 mg tablet,delayed release RxNorm: 388153 1 Tablet(s) PO daily 04/24/2018 05/19/2018 Inactive Zorvolex 35 mg capsule RxNorm: 9951473 TAKE 1 CAPSULE BY MOUTH THREE (3) TIMES DAILY 04/22/2018 08/01/2018 Inactive hydrochlorothiazide 25 mg tablet RxNorm: 730633 1 TABLET(S) PO DAILY 04/08/2018 06/26/2018 Inactive Zorvolex 35 mg capsule RxNorm: 5299341 TAKE 1 CAPSULE BY MOUTH THREE (3) TIMES DAILY 03/27/2018 04/21/2018 Inactive gabapentin 300 mg capsule RxNorm: 145637 1 CAPSULE(S) PO TID 03/25/2018 04/14/2018 Inactive hydrochlorothiazide 25 mg tablet RxNorm: 443967 1 Tablet(s) PO daily 03/14/2018 04/07/2018 Inactive Victoza 2-Marek 0.6 mg/0.1 mL (18 mg/3 mL) subcutaneous pen injector RxNorm: 102209 Milligram(s) INJECT 1.8 MG SUB-Q ONCE DAILY 02/27/2018 08/20/2019 Active qty sufficient atorvastatin 20 mg tablet RxNorm: 871245 1 Tablet(s) PO daily 02/27/2018 05/22/2019 Active Cymbalta 60 mg capsule,delayed release RxNorm: 925416 TAKE 1 CAPSULE BY MOUTH DAILY 02/27/2018 02/26/2018 Inactive Cymbalta 60 mg capsule,delayed release RxNorm: 006185 1 Capsule(s) PO daily TAKE 1 CAPSULE BY MOUTH DAILY 02/27/2018 07/14/2018 Inactive gabapentin 300 mg capsule RxNorm: 781316 1 Capsule(s) PO TID 02/27/2018 03/24/2018 Inactive Xanax 1 mg tablet RxNorm: 564340 1-2 Tablet(s) PO QHS as needed insomnia 02/27/2018 05/27/2018 Inactive meloxicam 7.5 mg tablet RxNorm: 469442 1 Tablet(s) PO daily 1 TABLET(S) PO DAILY 02/27/2018 04/14/2018 Inactive Ambien 10 mg tablet RxNorm: 284379 1 Tablet(s) PO QHS as needed insomnia 02/27/2018 05/25/2018 Inactive atorvastatin 20 mg tablet RxNorm: 738239 1 Tablet(s) PO daily 02/05/2018 02/26/2018 Inactive atorvastatin 20 mg tablet RxNorm: 412586 1 Tablet(s) PO daily 02/05/2018 02/04/2018 Inactive meloxicam 7.5 mg tablet RxNorm: 449479 1 TABLET(S) PO DAILY 02/01/2018 02/26/2018 Inactive oxycodone 15 mg tablet RxNorm: 7712237 1 Tablet(s) PO QID as needed 01/07/2018 02/19/2018 Inactive lactulose 20 gram/30 mL oral solution RxNorm: 822271 15-30 Milliliter(s) PO BID as needed 12/31/2017 02/20/2018 Inactive meloxicam 7.5 mg tablet RxNorm: 894445 1 TABLET(S) PO DAILY 12/13/2017 01/31/2018 Inactive Zorvolex 35 mg capsule RxNorm: 5484203 1 Capsule(s) PO TID 12/13/2017 02/20/2018 Inactive Ambien 10 mg tablet RxNorm: 894989 1 Tablet(s) PO QHS as needed insomnia 12/04/2017 02/26/2018 Inactive oxycodone 15 mg tablet RxNorm: 3409418 1 Tablet(s) PO QID as needed 12/04/2017 01/06/2018 Inactive prednisone 20 mg tablet RxNorm: 038971 2 Tablet(s) PO daily 12/04/2017 12/08/2017 Inactive Victoza 2-Marek 0.6 mg/0.1 mL (18 mg/3 mL) subcutaneous pen injector RxNorm: 064232 Milligram(s) INJECT 1.8 MG SUB-Q ONCE DAILY 11/20/2017 02/26/2018 Inactive meloxicam 7.5 mg tablet RxNorm: 880176 1 Tablet(s) PO daily 11/20/2017 12/12/2017 Inactive phentermine 37.5 mg tablet RxNorm: 824490 1 Tablet(s) PO daily 11/20/2017 12/19/2017 Inactive Ambien 10 mg tablet RxNorm: 074548 1 Tablet(s) PO QHS as needed insomnia 11/20/2017 12/18/2017 Inactive Xanax 1 mg tablet RxNorm: 673755 1.5 Tablet(s) PO QHS as needed insomnia 11/20/2017 02/26/2018 Inactive hydrocodone 7.5 mg-acetaminophen 325 mg tablet RxNorm: 853733 1 Tablet(s) PO TID as needed 11/16/2017 01/06/2018 Inactive Cymbalta 60 mg capsule,delayed release RxNorm: 323605 TAKE 1 CAPSULE BY MOUTH DAILY 11/02/2017 02/26/2018 Inactive Xanax 1 mg tablet RxNorm: 538051 1 Tablet(s) PO BID PRN as needed anxiety 10/04/2017 11/19/2017 Inactive Victoza 2-Marek 0.6 mg/0.1 mL (18 mg/3 mL) subcutaneous pen injector RxNorm: 743262 INJECT 1.8 MG SUB-Q ONCE DAILY 10/04/2017 11/19/2017 Inactive hydrocodone 7.5 mg-acetaminophen 325 mg tablet RxNorm: 008653 1 Tablet(s) PO TID as needed 09/17/2017 11/15/2017 Inactive hydrocodone 7.5 mg-acetaminophen 325 mg tablet RxNorm: 492024 1 Tablet(s) PO TID as needed 09/10/2017 09/16/2017 Inactive prednisone 10 mg tablet RxNorm: 172177 Tablet(s) PO 09/10/2017 11/13/2017 Inactive 6,5,4,3,2,1 Zorvolex 35 mg capsule RxNorm: 1554377 1 Capsule(s) PO TID 09/07/2017 11/13/2017 Inactive Ambien 10 mg tablet RxNorm: 507499 1 Tablet(s) PO QHS as needed insomnia 08/29/2017 11/19/2017 Inactive Zorvolex 35 mg capsule RxNorm: 3044764 1 Capsule(s) PO TID 08/28/2017 09/06/2017 Inactive Zorvolex 35 mg capsule RxNorm: 8552043 1 Capsule(s) PO TID 08/13/2017 08/27/2017 Inactive Zorvolex 35 mg capsule RxNorm: 1894064 1 Capsule(s) PO TID 08/13/2017 08/12/2017 Inactive prednisone 20 mg tablet RxNorm: 092372 2 Tablet(s) PO daily 07/31/2017 08/04/2017 Inactive hydrocodone 7.5 mg-acetaminophen 325 mg tablet RxNorm: 907645 1 Tablet(s) PO TID as needed 07/31/2017 09/09/2017 Inactive Zorvolex 35 mg capsule RxNorm: 4399564 1 Capsule(s) PO TID as needed 07/31/2017 11/13/2017 Inactive ceftriaxone 500 mg solution for injection RxNorm: 5616724 1 Milliliter(s) Inj 06/27/2017 06/27/2017 Inactive Keflex 500 mg capsule RxNorm: 640638 1 Capsule(s) PO TID 06/27/2017 07/03/2017 Inactive Ambien 10 mg tablet RxNorm: 334643 1 Tablet(s) PO daily 05/29/2017 08/25/2017 Inactive tramadol 50 mg tablet RxNorm: 125342 1 Tablet(s) PO TID as needed 05/29/2017 07/27/2017 Inactive Xanax 1 mg tablet RxNorm: 080123 1 Tablet(s) PO BID PRN as needed anxiety 05/21/2017 10/03/2017 Inactive alprazolam 1 mg tablet RxNorm: 701348 1 Tablet(s) PO BID as needed 05/21/2017 06/19/2017 Inactive Celebrex 200 mg capsule RxNorm: 152056 1 CAPSULE(S) PO BID 05/04/2017 11/05/2017 Inactive prednisone 20 mg tablet RxNorm: 810875 2 Tablet(s) PO daily 04/20/2017 04/24/2017 Inactive Ambien 10 mg tablet RxNorm: 963311 Tablet(s) PO 04/20/2017 05/28/2017 Inactive hydrocodone 5 mg-acetaminophen 325 mg tablet RxNorm: 435207 1 Tablet(s) PO QID as needed 04/20/2017 08/01/2017 Inactive Cymbalta 60 mg capsule,delayed release RxNorm: 489621 1 Capsule(s) PO daily 04/20/2017 02/26/2018 Inactive Victoza 2-Marek 0.6 mg/0.1 mL (18 mg/3 mL) subcutaneous pen injector RxNorm: 636180 INJECT 1.8 MG SUB-Q ONCE DAILY 03/26/2017 09/21/2017 Inactive diazepam 2 mg tablet RxNorm: 532145 1 Tablet(s) PO QHS as needed insomnia 01/28/2017 05/07/2017 Inactive Victoza 2-Marek 0.6 mg/0.1 mL (18 mg/3 mL) subcutaneous pen injector RxNorm: 936066 1.8 Milligram(s) SQ daily 01/26/2017 03/25/2017 Inactive dispense quantity sufficient Tussionex Pennkinetic ER 10 mg-8 mg/5 mL suspension,extended release RxNorm: 8041347 5 Milliliter(s) PO BID 01/11/2017 01/15/2017 Inactive Xanax 1 mg tablet RxNorm: 580830 1 Tablet(s) PO BID PRN as needed anxiety 01/11/2017 05/20/2017 Inactive Zithromax Z-Marek 250 mg tablet RxNorm: 098553 1 Tablet(s) PO UD 01/11/2017 01/15/2017 Inactive zpack albuterol sulfate 2.5 mg/3 mL (0.083 %) solution for nebulization RxNorm: 627453 3 Milliliter(s) INH UD 01/11/2017 11/13/2017 Inactive prednisone 20 mg tablet RxNorm: 632792 2 Tablet(s) PO daily 01/11/2017 01/15/2017 Inactive Kenalog 40 mg/mL suspension for injection RxNorm: 6188026 1.5 Milliliter(s) Inj 01/11/2017 01/11/2017 Inactive Celebrex 200 mg capsule RxNorm: 577050 1 Capsule(s) PO BID 11/30/2016 02/27/2017 Inactive Ambien 5 mg tablet RxNorm: 498412 1 Tablet(s) PO HS PRN 11/30/2016 08/07/2017 Inactive trazodone 50 mg tablet RxNorm: 710340 1/2 to 1 Tablet(s) PO QHS 10/13/2016 10/12/2016 Inactive trazodone 50 mg tablet RxNorm: 838160 1/2 to 1 Tablet(s) PO QHS 10/13/2016 11/29/2016 Inactive Belsomra 10 mg tablet RxNorm: 3725744 1 Tablet(s) PO QHS 09/28/2016 11/29/2016 Inactive may increase to 20mg if 10mg not effective Cymbalta 60 mg capsule,delayed release RxNorm: 936682 1 Capsule(s) PO daily 08/24/2016 03/21/2017 Inactive Xanax 1 mg tablet RxNorm: 569110 1 Tablet(s) PO BID PRN as needed anxiety 08/24/2016 01/10/2017 Inactive Victoza 2-Marek 0.6 mg/0.1 mL (18 mg/3 mL) subcutaneous pen injector RxNorm: 701363 Milligram(s) SQ 08/24/2016 08/23/2016 Inactive Victoza 2-Marek 0.6 mg/0.1 mL (18 mg/3 mL) subcutaneous pen injector RxNorm: 711239 1.8 Milligram(s) SQ 08/24/2016 01/25/2017 Inactive Vitamin D2 50,000 unit capsule RxNorm: 338704 1 Capsule(s) PO QW 07/13/2016 10/10/2016 Inactive Cymbalta 30 mg capsule,delayed release RxNorm: 458810 1 Capsule(s) PO daily 07/13/2016 08/23/2016 Inactive Belviq XR 20 mg tablet,extended release RxNorm: 0215592 1 Tablet(s) PO daily 05/30/2016 05/29/2016 Inactive prednisone 20 mg tablet RxNorm: 709340 2 Tablet(s) PO daily 05/30/2016 06/03/2016 Inactive prednisone 20 mg tablet RxNorm: 952371 2 Tablet(s) PO daily 05/30/2016 05/29/2016 Inactive Belviq XR 20 mg tablet,extended release RxNorm: 0523468 1 Tablet(s) PO daily 05/30/2016 06/28/2016 Inactive cyclobenzaprine 5 mg tablet RxNorm: 041455 1-2 Tablet(s) PO TID as needed 05/19/2016 05/23/2016 Inactive metoprolol succinate ER 25 mg tablet,extended release 24 hr RxNorm: 840052 1 Tablet(s) PO QPM 04/10/2016 04/13/2016 Inactive metoprolol succinate ER 25 mg tablet,extended release 24 hr RxNorm: 978280 1 Tablet(s) PO QPM 04/10/2016 04/09/2016 Inactive escitalopram 10 mg tablet RxNorm: 652036 1 Tablet(s) PO daily 03/16/2016 07/12/2016 Inactive estradiol 1 mg tablet RxNorm: 117266 1 Tablet(s) PO every other day 03/16/2016 05/15/2016 Inactive Kenalog 40 mg/mL suspension for injection RxNorm: 6459965 Milliliter(s) Inj 02/28/2016 02/28/2016 Inactive Zithromax Z-Marek 250 mg tablet RxNorm: 863777 1 Tablet(s) PO UD 02/28/2016 03/03/2016 Inactive zpack Lexapro 10 mg tablet RxNorm: 414238 1 Tablet(s) PO daily 09/27/2015 02/27/2016 Inactive Lexapro 10 mg tablet RxNorm: 340664 1 Tablet(s) PO daily 08/30/2015 09/26/2015 Inactive Vimovo 500 mg-20 mg tablet,immediate and delay release RxNorm: 164677 1 Tablet(s) PO BID as needed for pain 08/30/2015 09/26/2015 Inactive azithromycin 250 mg tablet RxNorm: 201177 1 Tablet(s) PO UD 2 pills on day #1, then one pill daily x 4 days 07/15/2015 01/12/2016 Inactive hydrocodone 10 mg-acetaminophen 325 mg tablet RxNorm: 286512 1 Tablet(s) PO QID 06/16/2015 01/12/2016 Inactive pramipexole 0.5 mg tablet RxNorm: 953969 1 Tablet(s) PO QPM 06/16/2015 07/14/2015 Inactive Celebrex 200 mg capsule RxNorm: 929743 1 Capsule(s) PO daily 05/03/2015 05/02/2015 Inactive Celebrex 200 mg capsule RxNorm: 772412 1 Capsule(s) PO daily 05/03/2015 01/12/2016 Inactive hydrocodone 7.5 mg-acetaminophen 325 mg tablet RxNorm: 813802 1 Tablet(s) PO Q6 PRN 05/03/2015 06/15/2015 Inactive Mobic 15 mg tablet RxNorm: 626899 1 Tablet(s) PO daily 04/02/2015 05/02/2015 Inactive hydrocodone 7.5 mg-acetaminophen 325 mg tablet RxNorm: 655493 1 Tablet(s) PO Q6 PRN 04/02/2015 05/02/2015 Inactive hydrocodone 5 mg-acetaminophen 325 mg tablet RxNorm: 571897 1 Tablet(s) PO Q6 as needed 12/11/2014 04/01/2015 Inactive Pennsaid 1.5 % topical drops RxNorm: 195142 40 Drop(s) TOP QID as needed 12/07/2014 02/04/2015 Inactive Apply 40 drops to each knee joint 4 times per day as needed for osteoarthritis pain estradiol 1 mg tablet RxNorm: 919676 1 Tablet(s) PO QHS No Start Date 03/15/2016 Inactive Xanax 0.5 mg tablet RxNorm: 094960 1 Tablet(s) PO Q6 as needed anxiety No Start Date 08/23/2016 Inactive Tylenol Extra Strength 500 mg tablet RxNorm: 557740 3 Tablet(s) PO BID after breakfast and after lunch No Start Date 01/12/2016 Inactive lactulose 20 gram/30 mL oral solution RxNorm: 426818 15-30 Milliliter(s) PO BID as needed No Start Date 12/30/2017 Inactive hydrocodone 5 mg-acetaminophen 325 mg tablet RxNorm: 211765 1 Tablet(s) PO Q6 as needed No Start Date 12/10/2014 Inactive Phenergan-Codeine syrup RxNorm: 5-10 Milliliter(s) PO QID as needed No Start Date 11/13/2017 Inactive ibuprofen 200 mg capsule RxNorm: 056150 4 Capsule(s) PO QID as needed No Start Date 04/01/2015 Inactive Medication Administered Medication Codes Instructions Start Date Status Kenalog 40 mg/mL suspension for injection RxNorm: 5271395 Milliliter 07/17/2018 No longer Active ceftriaxone 500 mg solution for injection RxNorm: 8561726 1Milliliter 06/27/2017 No longer Active Kenalog 40 mg/mL suspension for injection RxNorm: 9086956 1.5Milliliter 01/11/2017 No longer Active Kenalog 40 mg/mL suspension for injection RxNorm: 4518033 Milliliter 02/28/2016 No longer Active Immunizations Vaccine Codes Date Status Influenza CVX: 141 03/16/2017 completed Pneumococcal (Adult) CVX: 33 03/16/2017 completed Assessments Condition Codes Effective Dates Essential (primary) hypertension ICD-10: I10 ICD-9: 401.1 10/03/2018 Gastro-esophageal reflux disease without esophagitis ICD-10: K21.9 ICD-9: 530.81 10/03/2018 Pain in left knee ICD-10: M25.562 ICD-9: 719.46 09/23/2018 Type 2 diabetes mellitus with hyperglycemia ICD-10: E11.65 ICD-9: 250.02 08/26/2018 Other obesity due to excess calories ICD-10: E66.09 ICD-9: 278.00 08/26/2018 Dysuria ICD-10: R30.0 ICD-9: 788.1 08/26/2018 Type 2 diabetes mellitus without complications ICD-10: E11.9 ICD-9: 250.00 08/12/2018 Acute laryngopharyngitis ICD-10: J06.0 ICD-9: 465.0 07/17/2018 [...] chest pain ICD-10: R07.89 ICD-9: 786.59 04/24/2018 Major depressive disorder, recurrent, mild ICD-10: F33.0 [...] Excessive and frequent menstruation with regular cycle ICD-10: N92.0 ICD-9: 626.2 08/30/2015 Chronic pain syndrome ICD-10: G89.4 ICD-9: 338.4 08/30/2015 Acute maxillary sinusitis, unspecified ICD-10: J01.00 ICD-9: 461.0 07/15/2015 Restless legs syndrome ICD-10: G25.81 ICD-9: 333.94 06/16/2015 Varicose veins of bilateral lower extremities with pain ICD-10: I83.813 ICD-9: 454.8 04/02/2015 Superficial thrombophlebitis ICD-9: 451.9 12/02/2014 Osteoarthritis ICD-9: 715.90 12/02/2014 ABNORMAL WEIGHT GAIN ICD-9: 783.1 12/02/2014 Reason For Visit Reason For Visit Effective Dates Notes medication follow up 10/03/2018 abdominal pain 09/23/2018 diabetes mellitus 08/26/2018 diabetes mellitus 08/12/2018 sinus congestion 07/17/2018 medication follow up 07/04/2018 [...] Observation Code Item Item Code Result Date Urine Culture Ucult Complete >100,000 col/ml aerobic growth sent to ref lab 08/27/2018 Influenza A+B Tls094 Influ A+B Pos Influenza A 07/17/2018 %Hba1C Ehs159 % HbA1c 48880- 6 6.7 % 11/20/2017 %Hba1C Kuw744 Gluc Ave 146 mg/dL 11/20/2017 Free T4 Rno273 FREE T4 0.76 ng/dL 05/21/2017 Tsh Ord6 hTSH II 1.27 uIU/mL 05/21/2017 Comp Metabolic Rwy012 NA 140 mEq/L 05/21/2017 Comp Metabolic Uve420 K 3.9 mEq/L 05/21/2017 Comp Metabolic Ujp478 CL 101 mEq/L 05/21/2017 Comp Metabolic Pll471 CO2 28.0 mEq/L 05/21/2017 Comp Metabolic Bif324 ANION GAP 15 05/21/2017 Comp Metabolic Ell091 GLUCOSE 155 mg/dL 05/21/2017 Comp Metabolic Fqc724 Creat 0.7 mg/dL 05/21/2017 Comp Metabolic Zas152 eGFR 87 ml/min/1.73m2 05/21/2017 Comp Metabolic Cxu084 BUN 16 mg/dL 05/21/2017 Comp Metabolic Wyq298 B/C Ratio 21.6 Ratio 05/21/2017 Comp Metabolic Npd891 CALCIUM 9.4 mg/dL 05/21/2017 Comp Metabolic Fah890 ALK PHOS 132 U/L 05/21/2017 Comp Metabolic Uqc645 AST(SGOT) 16 U/L 05/21/2017 Comp Metabolic Wro957 ALT(SGPT) 20 U/L 05/21/2017 Comp Metabolic Mbo286 BILI T 0.4 mg/dL 05/21/2017 Comp Metabolic Wad043 ALBUMIN 4.0 g/dL 05/21/2017 Comp Metabolic Oeb693 TPRO 6.7 g/dL 05/21/2017 Comp Metabolic Jqi787 GLOB 2.7 g/dL 05/21/2017 Comp Metabolic Qiu793 A/G Ratio 1.5 Ratio 05/21/2017 Comp Metabolic Hub010 Osmo 284 mOsmo 05/21/2017 Cbc With Differential [...] 28.9 pg 05/21/2017 Cbc With Differential Ord2 [place]% 5.5 % 05/21/2017 Cbc With Differential Ord2 [...] 2.65 K/ul 05/21/2017 Cbc With Differential Ord2 [place] ABS# 0.8 K/ul 05/21/2017 Cbc With Differential Ord2 Eos ABS# 0.1 K/ul 05/21/2017 Cbc With Differential Ord2 Baso ABS# 0.0 K/ul 05/21/2017 Estrogens Total 205924 ESTROGENS, TOTAL 54 pg/mL 05/24/2016 Magnesium Ord90 Mag 1.8 mg/dL 05/19/2016 Tsh Ord6 hTSH II 1.56 uIU/mL 05/19/2016 Progesterone Prog 0.03 ng/mL 05/19/2016 Comp Metabolic Bgn999 NA 136 mEq/L 05/19/2016 Comp Metabolic Cfs042 K 4.3 mEq/L 05/19/2016 Comp Metabolic Xtz307 CL 100 mEq/L 05/19/2016 Comp Metabolic Hjq093 CO2 28.0 mEq/L 05/19/2016 Comp Metabolic Hkb677 ANION GAP 12 05/19/2016 Comp Metabolic Xpn030 GLUCOSE 138 mg/dL 05/19/2016 Comp Metabolic Pek085 Creat 0.7 mg/dL 05/19/2016 Comp Metabolic Urc167 eGFR 89 ml/min/1.73m2 05/19/2016 Comp Metabolic Igk164 BUN 15 mg/dL 05/19/2016 Comp Metabolic Utm252 B/C Ratio 20.5 Ratio 05/19/2016 Comp Metabolic Mqk926 CALCIUM 9.7 mg/dL 05/19/2016 Comp Metabolic Wml287 ALK PHOS 106 U/L 05/19/2016 Comp Metabolic Dct254 AST(SGOT) 21 U/L 05/19/2016 Comp Metabolic Ena046 ALT(SGPT) 24 U/L 05/19/2016 Comp Metabolic Hqg126 BILI T 0.4 mg/dL 05/19/2016 Comp Metabolic Ass062 ALBUMIN 4.1 g/dL 05/19/2016 Comp Metabolic Jff910 TPRO 7.1 g/dL 05/19/2016 Comp Metabolic Yhd312 GLOB 3.0 g/dL 05/19/2016 Comp Metabolic Tme263 A/G Ratio 1.4 Ratio 05/19/2016 Comp Metabolic Wqm085 Osmo 275 mOsmo 05/19/2016 Cbc With Differential [...] 28.5 pg 05/19/2016 Cbc With Differential Ord2 [place]% 6.5 % 05/19/2016 Cbc With Differential Ord2 [...] 2.33 K/ul 05/19/2016 Cbc With Differential Ord2 [place] ABS# 0.6 K/ul 05/19/2016 Cbc With Differential Ord2 Eos ABS# 0.1 K/ul 05/19/2016 Cbc With Differential Ord2 Baso ABS# 0.0 K/ul 05/19/2016 C RAP A SC [id number] Strep A Negative 02/28/2016 Tsh Ord6 hTSH [...] 26.2 pg 08/16/2015 Cbc With Differential Ord2 [place]% 7.1 % 08/16/2015 Cbc With Differential Ord2 [...] 2.32 K/ul 08/16/2015 Cbc With Differential Ord2 [place] ABS# 0.6 K/ul 08/16/2015 Cbc With Differential Ord2 Eos ABS# 0.1 K/ul 08/16/2015 Cbc With Differential Ord2 Baso ABS# 0.0 K/ul 08/16/2015 Cbc With Differential Ord2 New Analyzer Notice Please note new ref ranges starting 05-26-2015 due to implemntation of new five part differential hematolgy analyzer. 08/16/2015 Comp Metabolic Fty098 NA 132 mEq/L 08/16/2015 Comp Metabolic Bcl482 K 3.6 mEq/L 08/16/2015 Comp Metabolic Flr510 CL 99 mEq/L 08/16/2015 Comp Metabolic Vhr820 CO2 23.0 mEq/L 08/16/2015 Comp Metabolic Akj839 ANION GAP 14 08/16/2015 Comp Metabolic Ctu367 GLUCOSE 101 mg/dL 08/16/2015 Comp Metabolic Lrl486 Creat 0.7 mg/dL 08/16/2015 Comp Metabolic Wjq981 eGFR 100 ml/min/1.73m2 08/16/2015 Comp Metabolic Nud520 BUN 10 mg/dL 08/16/2015 Comp Metabolic Kne732 B/C Ratio 15.2 Ratio 08/16/2015 Comp Metabolic Jal152 CALCIUM 9.3 mg/dL 08/16/2015 Comp Metabolic Fnt049 ALK PHOS 100 U/L 08/16/2015 Comp Metabolic Gul968 AST(SGOT) 14 U/L 08/16/2015 Comp Metabolic Hpw477 ALT(SGPT) 11 U/L 08/16/2015 Comp Metabolic Hnr665 BILI T 0.3 mg/dL 08/16/2015 Comp Metabolic Plp302 ALBUMIN 3.9 g/dL 08/16/2015 Comp Metabolic Bog566 TPRO 7.1 g/dL 08/16/2015 Comp Metabolic Qws229 GLOB 3.2 g/dL 08/16/2015 Comp Metabolic Hvv930 A/G Ratio 1.2 Ratio 08/16/2015 Comp Metabolic Tiz235 Osmo 264 mOsmo 08/16/2015 Lipid Ord30 CHOL 209 mg/dL 12/03/2014 Lipid Ord30 HDL 42.0 mg/dl 12/03/2014 Lipid Ord30 TRIG 219 mg/dL 12/03/2014 Lipid Ord30 LDL 123 mg/dL 12/03/2014 Lipid Ord30 C/HDL 5.0 Ratio 12/03/2014 Comp Metabolic Are675 NA 132 mEq/L 12/03/2014 Comp Metabolic Gef453 K 4.0 mEq/L 12/03/2014 Comp Metabolic Pdj485 CL 101 mEq/L 12/03/2014 Comp Metabolic Oxk972 CO2 22.0 mEq/L 12/03/2014 Comp Metabolic Rdb075 ANION GAP 13 12/03/2014 Comp Metabolic Wvw251 GLUCOSE 123 mg/dL 12/03/2014 Comp Metabolic Yna876 Creat 0.7 mg/dL 12/03/2014 Comp Metabolic Dhf883 eGFR 97 ml/min/1.73m2 12/03/2014 Comp Metabolic Sxo583 BUN 10 mg/dL 12/03/2014 Comp Metabolic Rmy124 B/C Ratio 14.7 Ratio 12/03/2014 Comp Metabolic Vjs323 CALCIUM 9.2 mg/dL 12/03/2014 Comp Metabolic Cea622 ALK PHOS 88 U/L 12/03/2014 Comp Metabolic Pca663 AST(SGOT) 18 U/L 12/03/2014 Comp Metabolic Kcg987 ALT(SGPT) 17 U/L 12/03/2014 Comp Metabolic Exi121 BILI T 0.5 mg/dL 12/03/2014 Comp Metabolic Ije456 ALBUMIN 3.9 g/dL 12/03/2014 Comp Metabolic Qek385 TPRO 6.8 g/dL 12/03/2014 Comp Metabolic Eia485 GLOB 2.9 g/dL 12/03/2014 Comp Metabolic Neg611 A/G Ratio 1.3 Ratio 12/03/2014 Comp Metabolic Oqx318 Osmo 265 mOsmo 12/03/2014 Tsh Ord6 hTSH II 1.13 uIU/mL 12/03/2014 D-Dimer [id number] D-DIMER 168 NG/ML 12/03/2014 D-Dimer [id number] COMMENT 12/03/2014 Cbc With Differential Ord2 WBC [...] Result Effective Dates Constitutional No recent illness 10/03/2018 Constitutional No chills 10/03/2018 Constitutional No diaphoresis 10/03/2018 Constitutional No fever 10/03/2018 Eyes No eye erythema 10/03/2018 Ears/Nose/Throat/Neck No nasal discharge 10/03/2018 Cardiovascular No chest pain/pressure 10/03/2018 Cardiovascular No dyspnea 10/03/2018 Respiratory No chest congestion 10/03/2018 Respiratory No cough 10/03/2018 Gastrointestinal No abdominal pain 10/03/2018 Neurologic No alteration of consciousness 10/03/2018 Neurologic No mental status change 10/03/2018 Musculoskeletal joint complaint 10/03/2018 Musculoskeletal arthralgia(s) 10/03/2018 Constitutional No recent illness 09/23/2018 Constitutional No chills 09/23/2018 Constitutional No diaphoresis 09/23/2018 Constitutional No fever 09/23/2018 Eyes No eye erythema 09/23/2018 Ears/Nose/Throat/Neck No nasal discharge 09/23/2018 Cardiovascular No chest pain/pressure 09/23/2018 Cardiovascular No dyspnea 09/23/2018 Respiratory No chest congestion 09/23/2018 Respiratory No cough 09/23/2018 Gastrointestinal abdominal pain 09/23/2018 Gastrointestinal No constipation 09/23/2018 Gastrointestinal No diarrhea 09/23/2018 Gastrointestinal No hematochezia 09/23/2018 Gastrointestinal No melena 09/23/2018 Gastrointestinal nausea 09/23/2018 Gastrointestinal No vomiting 09/23/2018 Neurologic No alteration of consciousness 09/23/2018 Neurologic No mental status change 09/23/2018 Gastrointestinal gastroesophageal reflux 09/23/2018 Gastrointestinal gas and bloating 09/23/2018 Musculoskeletal joint complaint 09/23/2018 Constitutional No recent illness 08/26/2018 Constitutional No chills 08/26/2018 Constitutional No diaphoresis 08/26/2018 Constitutional No fever 08/26/2018 Eyes No eye erythema 08/26/2018 Ears/Nose/Throat/Neck No nasal discharge 08/26/2018 Cardiovascular No chest pain/pressure 08/26/2018 Respiratory No cough 08/26/2018 Gastrointestinal No abdominal pain 08/26/2018 Genitourinary/Nephrology dysuria 08/26/2018 Genitourinary/Nephrology urinary urgency 08/26/2018 Genitourinary/Nephrology urinary frequency 08/26/2018 Neurologic No alteration of consciousness 08/26/2018 Neurologic No mental status change 08/26/2018 Endocrine diabetes mellitus type 2 08/26/2018 Constitutional No recent illness 08/12/2018 Constitutional No chills 08/12/2018 Constitutional No diaphoresis 08/12/2018 Constitutional No fever 08/12/2018 Eyes No eye erythema 08/12/2018 Ears/Nose/Throat/Neck No nasal discharge 08/12/2018 Cardiovascular No chest pain/pressure 08/12/2018 Cardiovascular No dyspnea 08/12/2018 Respiratory No chest congestion 08/12/2018 Respiratory No cough 08/12/2018 Gastrointestinal No abdominal pain 08/12/2018 Neurologic No alteration of consciousness 08/12/2018 Neurologic No mental status change 08/12/2018 Constitutional recent illness 07/17/2018 Constitutional chills 07/17/2018 Constitutional No diaphoresis 07/17/2018 Constitutional fever 07/17/2018 Eyes No eye erythema 07/17/2018 Ears/Nose/Throat/Neck nasal allergies 07/17/2018 Ears/Nose/Throat/Neck nasal discharge 07/17/2018 Ears/Nose/Throat/Neck postnasal drip 07/17/2018 Ears/Nose/Throat/Neck sinus congestion 07/17/2018 Ears/Nose/Throat/Neck sore throat 07/17/2018 Cardiovascular No chest pain/pressure 07/17/2018 Cardiovascular No dyspnea 07/17/2018 Respiratory No chest congestion 07/17/2018 Respiratory cough 07/17/2018 Respiratory No dyspnea 07/17/2018 Gastrointestinal No constipation 07/17/2018 Gastrointestinal No diarrhea 07/17/2018 Gastrointestinal No nausea 07/17/2018 Gastrointestinal No vomiting 07/17/2018 Dermatologic No rash 07/17/2018 Neurologic No alteration of consciousness 07/17/2018 Neurologic No mental status change 07/17/2018 Gastrointestinal abdominal pain 07/17/2018 Constitutional No recent illness 07/04/2018 Constitutional No chills 07/04/2018 Constitutional No diaphoresis 07/04/2018 Constitutional No fever 07/04/2018 Eyes No eye erythema 07/04/2018 Ears/Nose/Throat/Neck No nasal allergies 07/04/2018 Ears/Nose/Throat/Neck No nasal discharge 07/04/2018 Cardiovascular No chest pain/pressure 07/04/2018 Cardiovascular No dyspnea 07/04/2018 Respiratory No chest congestion 07/04/2018 Respiratory No cough 07/04/2018 Gastrointestinal No abdominal pain 07/04/2018 Musculoskeletal No joint complaint 07/04/2018 Dermatologic No rash 07/04/2018 Neurologic No alteration of consciousness 07/04/2018 Neurologic No mental status change 07/04/2018 Psychiatric anxiety 07/04/2018 Psychiatric depression 07/04/2018 Psychiatric No suicidality 07/04/2018 Constitutional No recent illness 06/19/2018 Constitutional No chills 06/19/2018 Constitutional No diaphoresis 06/19/2018 Constitutional No fever 06/19/2018 Eyes No eye erythema 06/19/2018 Ears/Nose/Throat/Neck No nasal allergies 06/19/2018 Ears/Nose/Throat/Neck No nasal discharge 06/19/2018 Cardiovascular No chest pain/pressure 06/19/2018 Cardiovascular No dyspnea 06/19/2018 Respiratory No chest congestion 06/19/2018 Respiratory No cough 06/19/2018 Gastrointestinal No abdominal pain 06/19/2018 Musculoskeletal No joint complaint 06/19/2018 Dermatologic No rash 06/19/2018 Neurologic No alteration of consciousness 06/19/2018 Neurologic No mental status change 06/19/2018 Psychiatric anxiety 06/19/2018 Psychiatric depression 06/19/2018 Psychiatric No suicidality 06/19/2018 Constitutional No recent illness 04/24/2018 Constitutional No chills 04/24/2018 Constitutional No diaphoresis 04/24/2018 Constitutional No fever 04/24/2018 Eyes No eye erythema 04/24/2018 Ears/Nose/Throat/Neck No nasal discharge 04/24/2018 Cardiovascular No chest pain/pressure 04/24/2018 Cardiovascular No dyspnea 04/24/2018 Respiratory No cough 04/24/2018 Respiratory No chest congestion 04/24/2018 Gastrointestinal abdominal pain 04/24/2018 Gastrointestinal No constipation 04/24/2018 Gastrointestinal No diarrhea 04/24/2018 Gastrointestinal No vomiting 04/24/2018 Gastrointestinal nausea 04/24/2018 Gastrointestinal No melena 04/24/2018 Gastrointestinal No hematochezia 04/24/2018 Gastrointestinal No gastroesophageal reflux 04/24/2018 Neurologic No alteration of consciousness 04/24/2018 Neurologic No mental status change 04/24/2018 Constitutional No recent illness 04/17/2018 Constitutional No chills 04/17/2018 Constitutional No diaphoresis 04/17/2018 Constitutional No fever 04/17/2018 Eyes No eye erythema 04/17/2018 Ears/Nose/Throat/Neck No nasal discharge 04/17/2018 Ears/Nose/Throat/Neck No nasal allergies 04/17/2018 Cardiovascular No chest pain/pressure 04/17/2018 Cardiovascular No dyspnea 04/17/2018 Respiratory No cough 04/17/2018 Respiratory No chest congestion 04/17/2018 Gastrointestinal No abdominal pain 04/17/2018 Gastrointestinal No constipation 04/17/2018 Gastrointestinal No diarrhea 04/17/2018 Musculoskeletal joint complaint 04/17/2018 Musculoskeletal arthralgia(s) 04/17/2018 Neurologic No alteration of consciousness 04/17/2018 Neurologic No mental status change 04/17/2018 Constitutional No recent illness 03/14/2018 Constitutional No chills 03/14/2018 Constitutional No diaphoresis 03/14/2018 Constitutional No fever 03/14/2018 Eyes No eye erythema 03/14/2018 Ears/Nose/Throat/Neck No nasal discharge 03/14/2018 Ears/Nose/Throat/Neck No nasal allergies 03/14/2018 Cardiovascular No chest pain/pressure 03/14/2018 Cardiovascular No dyspnea 03/14/2018 Respiratory No cough 03/14/2018 Respiratory No chest congestion 03/14/2018 Gastrointestinal No abdominal pain 03/14/2018 Gastrointestinal No vomiting 03/14/2018 Gastrointestinal No nausea 03/14/2018 Gastrointestinal No constipation 03/14/2018 Gastrointestinal No diarrhea 03/14/2018 Musculoskeletal arthralgia(s) 03/14/2018 Cardiovascular edema 03/14/2018 Dermatologic No rash 03/14/2018 Neurologic No alteration of consciousness 03/14/2018 Neurologic No mental status change 03/14/2018 Constitutional No recent illness 02/27/2018 Constitutional No chills 02/27/2018 Constitutional No diaphoresis 02/27/2018 Constitutional No fever 02/27/2018 Eyes No eye erythema 02/27/2018 Ears/Nose/Throat/Neck No nasal discharge 02/27/2018 Cardiovascular No chest pain/pressure 02/27/2018 Cardiovascular No dyspnea 02/27/2018 Respiratory No cough 02/27/2018 Respiratory No dyspnea 02/27/2018 Musculoskeletal joint complaint 02/27/2018 Neurologic No alteration of consciousness 02/27/2018 Neurologic No mental status change 02/27/2018 Constitutional No recent illness 12/04/2017 Constitutional No chills 12/04/2017 Constitutional No fever 12/04/2017 Eyes No eye erythema 12/04/2017 Ears/Nose/Throat/Neck No nasal discharge 12/04/2017 Cardiovascular No chest pain/pressure 12/04/2017 Cardiovascular No dyspnea 12/04/2017 Respiratory No cough 12/04/2017 Respiratory No dyspnea 12/04/2017 Musculoskeletal joint complaint 12/04/2017 Neurologic No alteration of consciousness 12/04/2017 Neurologic No mental status change 12/04/2017 Constitutional No recent illness 11/20/2017 Constitutional No chills 11/20/2017 Constitutional No diaphoresis 11/20/2017 Constitutional No fever 11/20/2017 Eyes No eye erythema 11/20/2017 Ears/Nose/Throat/Neck No nasal discharge 11/20/2017 Cardiovascular No chest pain/pressure 11/20/2017 Cardiovascular No dyspnea 11/20/2017 Respiratory No cough 11/20/2017 Respiratory No dyspnea 11/20/2017 Musculoskeletal joint complaint 11/20/2017 Neurologic No alteration of consciousness 11/20/2017 Neurologic No mental status change 11/20/2017 Constitutional No recent illness 09/10/2017 Constitutional No chills 09/10/2017 Constitutional No diaphoresis 09/10/2017 Constitutional No fever 09/10/2017 Eyes No eye erythema 09/10/2017 Ears/Nose/Throat/Neck No nasal discharge 09/10/2017 Cardiovascular No chest pain/pressure 09/10/2017 Cardiovascular No dyspnea 09/10/2017 Respiratory No cough 09/10/2017 Respiratory No dyspnea 09/10/2017 Musculoskeletal joint complaint 09/10/2017 Neurologic No alteration of consciousness 09/10/2017 Neurologic No mental status change 09/10/2017 Constitutional recent illness 08/14/2017 Constitutional No chills 08/14/2017 Constitutional No diaphoresis 08/14/2017 Constitutional No fever 08/14/2017 Eyes No eye erythema 08/14/2017 Ears/Nose/Throat/Neck No nasal discharge 08/14/2017 Cardiovascular No chest pain/pressure 08/14/2017 Cardiovascular No dyspnea 08/14/2017 Respiratory No cough 08/14/2017 Respiratory No chest congestion 08/14/2017 Gastrointestinal No abdominal pain 08/14/2017 Gastrointestinal No constipation 08/14/2017 Gastrointestinal No diarrhea 08/14/2017 Musculoskeletal joint complaint 08/14/2017 Dermatologic No rash 08/14/2017 Neurologic No alteration of consciousness 08/14/2017 Neurologic No mental status change 08/14/2017 Constitutional No recent illness 07/31/2017 Constitutional No chills 07/31/2017 Constitutional No fever 07/31/2017 Eyes No eye erythema 07/31/2017 Ears/Nose/Throat/Neck No nasal discharge 07/31/2017 Cardiovascular No chest pain/pressure 07/31/2017 Cardiovascular No dyspnea 07/31/2017 Respiratory No cough 07/31/2017 Respiratory No dyspnea 07/31/2017 Musculoskeletal joint complaint 07/31/2017 Neurologic No alteration of consciousness 07/31/2017 Neurologic No mental status change 07/31/2017 Constitutional recent illness 06/27/2017 Constitutional chills 06/27/2017 Constitutional No diaphoresis 06/27/2017 Constitutional fever 06/27/2017 Eyes No eye erythema 06/27/2017 Ears/Nose/Throat/Neck nasal allergies 06/27/2017 Ears/Nose/Throat/Neck nasal discharge 06/27/2017 Ears/Nose/Throat/Neck postnasal drip 06/27/2017 Ears/Nose/Throat/Neck sinus congestion 06/27/2017 Ears/Nose/Throat/Neck sore throat 06/27/2017 Cardiovascular No chest pain/pressure 06/27/2017 Cardiovascular No dyspnea 06/27/2017 Respiratory No chest congestion 06/27/2017 Respiratory cough 06/27/2017 Respiratory No dyspnea 06/27/2017 Gastrointestinal No constipation 06/27/2017 Gastrointestinal No diarrhea 06/27/2017 Gastrointestinal No nausea 06/27/2017 Gastrointestinal No vomiting 06/27/2017 Dermatologic No rash 06/27/2017 Neurologic No alteration of consciousness 06/27/2017 Neurologic No mental status change 06/27/2017 Constitutional No recent illness 05/29/2017 Constitutional No chills 05/29/2017 Constitutional No diaphoresis 05/29/2017 Constitutional No fever 05/29/2017 Eyes No eye erythema 05/29/2017 Ears/Nose/Throat/Neck No nasal allergies 05/29/2017 Ears/Nose/Throat/Neck No nasal discharge 05/29/2017 Cardiovascular No chest pain/pressure 05/29/2017 Cardiovascular No dyspnea 05/29/2017 Cardiovascular hypertension 05/29/2017 Respiratory No cough 05/29/2017 Respiratory No chest congestion 05/29/2017 Musculoskeletal joint complaint 05/29/2017 Dermatologic cyst 05/29/2017 Neurologic No alteration of consciousness 05/29/2017 Neurologic No mental status change 05/29/2017 Constitutional No recent illness 05/21/2017 Constitutional No chills 05/21/2017 Constitutional No diaphoresis 05/21/2017 Constitutional No fever 05/21/2017 Eyes No eye erythema 05/21/2017 Ears/Nose/Throat/Neck No nasal discharge 05/21/2017 Ears/Nose/Throat/Neck No nasal allergies 05/21/2017 Cardiovascular No chest pain/pressure 05/21/2017 Cardiovascular No dyspnea 05/21/2017 Cardiovascular hypertension 05/21/2017 Cardiovascular palpitations 05/21/2017 Respiratory No cough 05/21/2017 Respiratory No chest congestion 05/21/2017 Gastrointestinal No abdominal pain 05/21/2017 Gastrointestinal No vomiting 05/21/2017 Gastrointestinal No nausea 05/21/2017 Neurologic No alteration of consciousness 05/21/2017 Neurologic No mental status change 05/21/2017 Psychiatric anxiety 05/21/2017 Psychiatric depression 05/21/2017 Constitutional No recent illness 04/20/2017 Constitutional No chills 04/20/2017 Constitutional No fever 04/20/2017 Eyes No eye erythema 04/20/2017 Ears/Nose/Throat/Neck No nasal discharge 04/20/2017 Cardiovascular No chest pain/pressure 04/20/2017 Cardiovascular No dyspnea 04/20/2017 Respiratory No cough 04/20/2017 Respiratory No dyspnea 04/20/2017 Musculoskeletal joint complaint 04/20/2017 Neurologic No alteration of consciousness 04/20/2017 Neurologic No mental status change 04/20/2017 Constitutional recent illness 01/26/2017 Constitutional No chills 01/26/2017 Constitutional No diaphoresis 01/26/2017 Constitutional No fever 01/26/2017 Constitutional insomnia 01/26/2017 Eyes No eye erythema 01/26/2017 Ears/Nose/Throat/Neck No nasal discharge 01/26/2017 Ears/Nose/Throat/Neck nasal allergies 01/26/2017 Cardiovascular No chest pain/pressure 01/26/2017 Cardiovascular No dyspnea 01/26/2017 Respiratory No dyspnea 01/26/2017 Respiratory No cough 01/26/2017 Dermatologic skin lesion 01/26/2017 Neurologic No alteration of consciousness 01/26/2017 Neurologic No mental status change 01/26/2017 Constitutional recent illness 01/11/2017 Constitutional No chills 01/11/2017 Constitutional No diaphoresis 01/11/2017 Constitutional No fever 01/11/2017 Constitutional fatigue 01/11/2017 Eyes No eye erythema 01/11/2017 Ears/Nose/Throat/Neck nasal allergies 01/11/2017 Ears/Nose/Throat/Neck nasal discharge 01/11/2017 Ears/Nose/Throat/Neck postnasal drip 01/11/2017 Ears/Nose/Throat/Neck No sinus congestion 01/11/2017 Ears/Nose/Throat/Neck sore throat 01/11/2017 Cardiovascular No chest pain/pressure 01/11/2017 Cardiovascular No dyspnea 01/11/2017 Respiratory cough 01/11/2017 Respiratory chest congestion 01/11/2017 Respiratory productive sputum 01/11/2017 Respiratory No dyspnea 01/11/2017 Respiratory dyspnea on exertion 01/11/2017 Gastrointestinal No abdominal pain 01/11/2017 Gastrointestinal No diarrhea 01/11/2017 Gastrointestinal No anorexia 01/11/2017 Neurologic No mental status change 01/11/2017 Neurologic No alteration of consciousness 01/11/2017 Constitutional No recent illness 11/30/2016 Constitutional No anorexia 11/30/2016 Constitutional No night sweats 11/30/2016 Constitutional No chills 11/30/2016 Constitutional No diaphoresis 11/30/2016 Constitutional fatigue 11/30/2016 Constitutional No fever 11/30/2016 Constitutional insomnia 11/30/2016 Constitutional No malaise 11/30/2016 Constitutional weight loss 11/30/2016 Constitutional No weight gain 11/30/2016 Constitutional obesity 11/30/2016 Eyes No eye pain 11/30/2016 Eyes No vision change 11/30/2016 Ears/Nose/Throat/Neck No dizziness 11/30/2016 Ears/Nose/Throat/Neck No headache 11/30/2016 Cardiovascular No chest pain/pressure 11/30/2016 Cardiovascular No dyspnea 11/30/2016 Respiratory No chest congestion 11/30/2016 Respiratory No chest tightness 11/30/2016 Respiratory cigarette smoking 11/30/2016 Respiratory No cough 11/30/2016 Gastrointestinal No abdominal pain 11/30/2016 Gastrointestinal No nausea 11/30/2016 Gastrointestinal No vomiting 11/30/2016 Genitourinary/Nephrology No anuria/oliguria 11/30/2016 Genitourinary/Nephrology No dysuria 11/30/2016 Musculoskeletal arthralgia(s) 11/30/2016 Dermatologic No rash 11/30/2016 Dermatologic No sores 11/30/2016 Neurologic No alteration of consciousness 11/30/2016 Neurologic No headache 11/30/2016 Psychiatric No anxiety 11/30/2016 Psychiatric No depression 11/30/2016 Hematologic/Lymphatic No abnormal ecchymoses 11/30/2016 Hematologic/Lymphatic No abnormal bleeding and bruising 11/30/2016 Constitutional No recent illness 09/28/2016 Constitutional No anorexia 09/28/2016 Constitutional No night sweats 09/28/2016 Constitutional No chills 09/28/2016 Constitutional No diaphoresis 09/28/2016 Constitutional fatigue 09/28/2016 Constitutional No fever 09/28/2016 Constitutional insomnia 09/28/2016 Constitutional No malaise 09/28/2016 Constitutional weight loss 09/28/2016 Constitutional No weight gain 09/28/2016 Constitutional obesity 09/28/2016 Eyes No eye pain 09/28/2016 Eyes No vision change 09/28/2016 Ears/Nose/Throat/Neck No dizziness 09/28/2016 Ears/Nose/Throat/Neck No headache 09/28/2016 Cardiovascular No chest pain/pressure 09/28/2016 Cardiovascular No dyspnea 09/28/2016 Respiratory No chest congestion 09/28/2016 Respiratory No chest tightness 09/28/2016 Respiratory cigarette smoking 09/28/2016 Respiratory No cough 09/28/2016 Gastrointestinal No abdominal pain 09/28/2016 Gastrointestinal No nausea 09/28/2016 Gastrointestinal No vomiting 09/28/2016 Genitourinary/Nephrology No anuria/oliguria 09/28/2016 Genitourinary/Nephrology No dysuria 09/28/2016 Musculoskeletal arthralgia(s) 09/28/2016 Dermatologic No rash 09/28/2016 Dermatologic No sores 09/28/2016 Neurologic No alteration of consciousness 09/28/2016 Neurologic No headache 09/28/2016 Psychiatric No anxiety 09/28/2016 Psychiatric No depression 09/28/2016 Hematologic/Lymphatic No abnormal ecchymoses 09/28/2016 Hematologic/Lymphatic No abnormal bleeding and bruising 09/28/2016 Constitutional No recent illness 08/24/2016 Constitutional No anorexia 08/24/2016 Constitutional No night sweats 08/24/2016 Constitutional No chills 08/24/2016 Constitutional No diaphoresis 08/24/2016 Constitutional fatigue 08/24/2016 Constitutional No fever 08/24/2016 Constitutional insomnia 08/24/2016 Constitutional No malaise 08/24/2016 Constitutional No weight loss 08/24/2016 Constitutional No weight gain 08/24/2016 Constitutional obesity 08/24/2016 Eyes No eye pain 08/24/2016 Eyes No vision change 08/24/2016 Ears/Nose/Throat/Neck No dizziness 08/24/2016 Ears/Nose/Throat/Neck No headache 08/24/2016 Cardiovascular No chest pain/pressure 08/24/2016 Cardiovascular No dyspnea 08/24/2016 Respiratory No chest congestion 08/24/2016 Respiratory No chest tightness 08/24/2016 Respiratory cigarette smoking 08/24/2016 Respiratory No cough 08/24/2016 Gastrointestinal No abdominal pain 08/24/2016 Gastrointestinal No nausea 08/24/2016 Gastrointestinal No vomiting 08/24/2016 Genitourinary/Nephrology No anuria/oliguria 08/24/2016 Genitourinary/Nephrology No dysuria 08/24/2016 Musculoskeletal arthralgia(s) 08/24/2016 Dermatologic No rash 08/24/2016 Dermatologic No sores 08/24/2016 Neurologic No alteration of consciousness 08/24/2016 Neurologic No headache 08/24/2016 Psychiatric No anxiety 08/24/2016 Psychiatric No depression 08/24/2016 Hematologic/Lymphatic No abnormal ecchymoses 08/24/2016 Hematologic/Lymphatic No abnormal bleeding and bruising 08/24/2016 Constitutional No recent illness 07/13/2016 Constitutional No chills 07/13/2016 Constitutional No diaphoresis 07/13/2016 Constitutional fatigue 07/13/2016 Constitutional No fever 07/13/2016 Constitutional insomnia 07/13/2016 Constitutional No malaise 07/13/2016 Ears/Nose/Throat/Neck No dizziness 07/13/2016 Ears/Nose/Throat/Neck No headache 07/13/2016 Ears/Nose/Throat/Neck No sinus congestion 07/13/2016 Cardiovascular No chest pain/pressure 07/13/2016 Cardiovascular No dyspnea 07/13/2016 Cardiovascular No syncope 07/13/2016 Respiratory No chest congestion 07/13/2016 Respiratory No cough 07/13/2016 Respiratory No dyspnea 07/13/2016 Gastrointestinal No abdominal pain 07/13/2016 Gastrointestinal No constipation 07/13/2016 Gastrointestinal No diarrhea 07/13/2016 Genitourinary/Nephrology No dysuria 07/13/2016 Musculoskeletal arthralgia(s) 07/13/2016 Musculoskeletal joint complaint 07/13/2016 Dermatologic No rash 07/13/2016 Dermatologic No sores 07/13/2016 Neurologic No alteration of consciousness 07/13/2016 Psychiatric anxiety 07/13/2016 Psychiatric depression 07/13/2016 Musculoskeletal back pain 07/13/2016 Constitutional No recent illness 05/19/2016 Constitutional No chills 05/19/2016 Constitutional No diaphoresis 05/19/2016 Constitutional fatigue 05/19/2016 Constitutional No fever 05/19/2016 Constitutional insomnia 05/19/2016 Cardiovascular No chest pain/pressure 05/19/2016 Cardiovascular No dyspnea 05/19/2016 Respiratory No chest congestion 05/19/2016 Respiratory No cough 05/19/2016 Respiratory No dyspnea 05/19/2016 Gastrointestinal No abdominal pain 05/19/2016 Musculoskeletal arthralgia(s) 05/19/2016 Musculoskeletal joint complaint 05/19/2016 Dermatologic No rash 05/19/2016 Neurologic No alteration of consciousness 05/19/2016 Psychiatric anxiety 05/19/2016 Psychiatric depression 05/19/2016 Eyes No eye erythema 05/19/2016 Ears/Nose/Throat/Neck No nasal allergies 05/19/2016 Ears/Nose/Throat/Neck No nasal discharge 05/19/2016 Musculoskeletal myalgias 05/19/2016 Neurologic No mental status change 05/19/2016 Constitutional No recent illness 03/16/2016 Constitutional No chills 03/16/2016 Constitutional No diaphoresis 03/16/2016 Constitutional fatigue 03/16/2016 Constitutional No fever 03/16/2016 Constitutional insomnia 03/16/2016 Constitutional No malaise 03/16/2016 Ears/Nose/Throat/Neck No dizziness 03/16/2016 Ears/Nose/Throat/Neck No headache 03/16/2016 Ears/Nose/Throat/Neck No sinus congestion 03/16/2016 Cardiovascular No chest pain/pressure 03/16/2016 Cardiovascular No dyspnea 03/16/2016 Cardiovascular No syncope 03/16/2016 Respiratory No chest congestion 03/16/2016 Respiratory No cough 03/16/2016 Respiratory No dyspnea 03/16/2016 Gastrointestinal No abdominal pain 03/16/2016 Gastrointestinal No constipation 03/16/2016 Gastrointestinal No diarrhea 03/16/2016 Genitourinary/Nephrology No dysuria 03/16/2016 Musculoskeletal arthralgia(s) 03/16/2016 Musculoskeletal joint complaint 03/16/2016 Dermatologic No rash 03/16/2016 Dermatologic No sores 03/16/2016 Neurologic No alteration of consciousness 03/16/2016 Psychiatric anxiety 03/16/2016 Psychiatric depression 03/16/2016 Constitutional recent illness 02/28/2016 Constitutional No anorexia 02/28/2016 Constitutional No night sweats 02/28/2016 Constitutional chills 02/28/2016 Constitutional diaphoresis 02/28/2016 Constitutional No fatigue 02/28/2016 Constitutional fever 02/28/2016 Constitutional No insomnia 02/28/2016 Constitutional No malaise 02/28/2016 Constitutional No weight loss 02/28/2016 Constitutional No weight gain 02/28/2016 Eyes No eye discharge 02/28/2016 Eyes No eye erythema 02/28/2016 Ears/Nose/Throat/Neck No dizziness 02/28/2016 Ears/Nose/Throat/Neck headache 02/28/2016 Ears/Nose/Throat/Neck No nasal discharge 02/28/2016 Ears/Nose/Throat/Neck No otalgia 02/28/2016 Ears/Nose/Throat/Neck sinus congestion 02/28/2016 Ears/Nose/Throat/Neck sore throat 02/28/2016 Cardiovascular No chest pain/pressure 02/28/2016 Respiratory No cough 02/28/2016 Gastrointestinal No abdominal pain 02/28/2016 Gastrointestinal No constipation 02/28/2016 Gastrointestinal No diarrhea 02/28/2016 Gastrointestinal No vomiting 02/28/2016 Gastrointestinal No nausea 02/28/2016 Genitourinary/Nephrology No dysuria 02/28/2016 Musculoskeletal No joint complaint 02/28/2016 Dermatologic No rash 02/28/2016 Neurologic No alteration of consciousness 02/28/2016 Constitutional No recent illness 01/13/2016 Constitutional No chills 01/13/2016 Constitutional No diaphoresis 01/13/2016 Constitutional fatigue 01/13/2016 Constitutional No fever 01/13/2016 Constitutional insomnia 01/13/2016 Constitutional No malaise 01/13/2016 Ears/Nose/Throat/Neck No dizziness 01/13/2016 Ears/Nose/Throat/Neck No headache 01/13/2016 Ears/Nose/Throat/Neck No sinus congestion 01/13/2016 Cardiovascular No chest pain/pressure 01/13/2016 Cardiovascular No dyspnea 01/13/2016 Cardiovascular No syncope 01/13/2016 Respiratory No chest congestion 01/13/2016 Respiratory No cough 01/13/2016 Respiratory No dyspnea 01/13/2016 Gastrointestinal No abdominal pain 01/13/2016 Gastrointestinal No constipation 01/13/2016 Gastrointestinal No diarrhea 01/13/2016 Genitourinary/Nephrology No dysuria 01/13/2016 Musculoskeletal arthralgia(s) 01/13/2016 Musculoskeletal joint complaint 01/13/2016 Dermatologic No rash 01/13/2016 Dermatologic No sores 01/13/2016 Neurologic No alteration of consciousness 01/13/2016 Psychiatric anxiety 01/13/2016 Psychiatric depression 01/13/2016 Constitutional No diaphoresis 09/27/2015 Constitutional No recent illness 09/27/2015 Constitutional No chills 09/27/2015 Constitutional fatigue 09/27/2015 Constitutional No fever 09/27/2015 Constitutional insomnia 09/27/2015 Constitutional No malaise 09/27/2015 Eyes No eye discharge 09/27/2015 Eyes No eye erythema 09/27/2015 Ears/Nose/Throat/Neck No dizziness 09/27/2015 Ears/Nose/Throat/Neck No headache 09/27/2015 Ears/Nose/Throat/Neck No sinus congestion 09/27/2015 Cardiovascular No chest pain/pressure 09/27/2015 Cardiovascular No dyspnea 09/27/2015 Cardiovascular palpitations 09/27/2015 Cardiovascular No syncope 09/27/2015 Respiratory No chest congestion 09/27/2015 Respiratory No cough 09/27/2015 Respiratory No dyspnea 09/27/2015 Gastrointestinal No abdominal pain 09/27/2015 Gastrointestinal No constipation 09/27/2015 Gastrointestinal No diarrhea 09/27/2015 Genitourinary/Nephrology No dysuria 09/27/2015 Musculoskeletal arthralgia(s) 09/27/2015 Musculoskeletal joint complaint 09/27/2015 Dermatologic No rash 09/27/2015 Dermatologic No sores 09/27/2015 Neurologic No alteration of consciousness 09/27/2015 Psychiatric anxiety 09/27/2015 Psychiatric No depression 09/27/2015 Constitutional No recent illness 08/30/2015 Constitutional No chills 08/30/2015 Constitutional No diaphoresis 08/30/2015 Constitutional fatigue 08/30/2015 Constitutional No fever 08/30/2015 Constitutional insomnia 08/30/2015 Constitutional No malaise 08/30/2015 Eyes No eye discharge 08/30/2015 Eyes No eye erythema 08/30/2015 Ears/Nose/Throat/Neck No dizziness 08/30/2015 Ears/Nose/Throat/Neck No headache 08/30/2015 Ears/Nose/Throat/Neck No sinus congestion 08/30/2015 Cardiovascular No chest pain/pressure 08/30/2015 Cardiovascular No dyspnea 08/30/2015 Cardiovascular No edema 08/30/2015 Respiratory No chest congestion 08/30/2015 Respiratory No cough 08/30/2015 Respiratory No dyspnea 08/30/2015 Gastrointestinal No abdominal pain 08/30/2015 Gastrointestinal No constipation 08/30/2015 Gastrointestinal No diarrhea 08/30/2015 Genitourinary/Nephrology No dysuria 08/30/2015 Musculoskeletal arthralgia(s) 08/30/2015 Musculoskeletal joint complaint 08/30/2015 Dermatologic No rash 08/30/2015 Dermatologic No sores 08/30/2015 Neurologic No alteration of consciousness 08/30/2015 Psychiatric anxiety 08/30/2015 Psychiatric No depression 08/30/2015 Ears/Nose/Throat/Neck No nasal allergies 08/30/2015 Ears/Nose/Throat/Neck No nasal discharge 08/30/2015 Genitourinary/Nephrology menstrual irregularity 08/30/2015 Constitutional No recent illness 08/16/2015 Constitutional No chills 08/16/2015 Constitutional No diaphoresis 08/16/2015 Constitutional fatigue 08/16/2015 Constitutional No fever 08/16/2015 Constitutional insomnia 08/16/2015 Constitutional No malaise 08/16/2015 Eyes No eye discharge 08/16/2015 Eyes No eye erythema 08/16/2015 Ears/Nose/Throat/Neck No dizziness 08/16/2015 Ears/Nose/Throat/Neck No headache 08/16/2015 Cardiovascular No chest pain/pressure 08/16/2015 Cardiovascular No dyspnea 08/16/2015 Respiratory No cough 08/16/2015 Gastrointestinal No abdominal pain 08/16/2015 Gastrointestinal No constipation 08/16/2015 Gastrointestinal No diarrhea 08/16/2015 Genitourinary/Nephrology No dysuria 08/16/2015 Musculoskeletal arthralgia(s) 08/16/2015 Musculoskeletal joint complaint 08/16/2015 Dermatologic No rash 08/16/2015 Dermatologic No sores 08/16/2015 Neurologic No alteration of consciousness 08/16/2015 Psychiatric anxiety 08/16/2015 Psychiatric No depression 08/16/2015 Ears/Nose/Throat/Neck No sinus congestion 08/16/2015 Cardiovascular No edema 08/16/2015 Cardiovascular palpitations 08/16/2015 Cardiovascular No syncope 08/16/2015 Respiratory No chest congestion 08/16/2015 Respiratory No dyspnea 08/16/2015 Constitutional No recent illness 07/15/2015 Constitutional No anorexia 07/15/2015 Constitutional No night sweats 07/15/2015 Constitutional No chills 07/15/2015 Constitutional No diaphoresis 07/15/2015 Constitutional fatigue 07/15/2015 Constitutional No fever 07/15/2015 Constitutional insomnia 07/15/2015 Constitutional No malaise 07/15/2015 Eyes No eye discharge 07/15/2015 Eyes No eye erythema 07/15/2015 Ears/Nose/Throat/Neck No dizziness 07/15/2015 Ears/Nose/Throat/Neck No headache 07/15/2015 Cardiovascular No chest pain/pressure 07/15/2015 Cardiovascular No dyspnea 07/15/2015 Cardiovascular No edema 07/15/2015 Respiratory No cough 07/15/2015 Gastrointestinal No abdominal pain 07/15/2015 Gastrointestinal No constipation 07/15/2015 Gastrointestinal No diarrhea 07/15/2015 Genitourinary/Nephrology No dysuria 07/15/2015 Musculoskeletal arthralgia(s) 07/15/2015 Musculoskeletal joint complaint 07/15/2015 Dermatologic No rash 07/15/2015 Dermatologic No sores 07/15/2015 Neurologic No alteration of consciousness 07/15/2015 Psychiatric No anxiety 07/15/2015 Psychiatric No depression 07/15/2015 Constitutional No recent illness 06/16/2015 Constitutional No anorexia 06/16/2015 Constitutional No night sweats 06/16/2015 Constitutional No chills 06/16/2015 Constitutional No diaphoresis 06/16/2015 Constitutional fatigue 06/16/2015 Constitutional No fever 06/16/2015 Constitutional insomnia 06/16/2015 Constitutional No malaise 06/16/2015 Eyes No eye discharge 06/16/2015 Eyes No eye erythema 06/16/2015 Ears/Nose/Throat/Neck No dizziness 06/16/2015 Ears/Nose/Throat/Neck No headache 06/16/2015 Cardiovascular No chest pain/pressure 06/16/2015 Cardiovascular No dyspnea 06/16/2015 Cardiovascular No edema 06/16/2015 Respiratory No cough 06/16/2015 Gastrointestinal No abdominal pain 06/16/2015 Gastrointestinal No constipation 06/16/2015 Gastrointestinal No diarrhea 06/16/2015 Genitourinary/Nephrology No dysuria 06/16/2015 Musculoskeletal arthralgia(s) 06/16/2015 Musculoskeletal joint complaint 06/16/2015 Dermatologic No rash 06/16/2015 Dermatologic No sores 06/16/2015 Neurologic No alteration of consciousness 06/16/2015 Psychiatric No anxiety 06/16/2015 Psychiatric No depression 06/16/2015 Constitutional No recent illness 04/02/2015 Constitutional No night sweats 04/02/2015 Constitutional No anorexia 04/02/2015 Constitutional No chills 04/02/2015 Constitutional No diaphoresis 04/02/2015 Constitutional fatigue 04/02/2015 Constitutional No fever 04/02/2015 Constitutional insomnia 04/02/2015 Constitutional No malaise 04/02/2015 Constitutional No weight loss 04/02/2015 Constitutional No weight gain 04/02/2015 Eyes No eye discharge 04/02/2015 Eyes No eye erythema 04/02/2015 Ears/Nose/Throat/Neck No dizziness 04/02/2015 Ears/Nose/Throat/Neck No headache 04/02/2015 Cardiovascular No chest pain/pressure 04/02/2015 Cardiovascular No dyspnea 04/02/2015 Cardiovascular No edema 04/02/2015 Respiratory No cough 04/02/2015 Gastrointestinal No abdominal pain 04/02/2015 Gastrointestinal No constipation 04/02/2015 Gastrointestinal No diarrhea 04/02/2015 Genitourinary/Nephrology No dysuria 04/02/2015 Musculoskeletal joint complaint 04/02/2015 Musculoskeletal arthralgia(s) 04/02/2015 Dermatologic No rash 04/02/2015 Dermatologic No sores 04/02/2015 Neurologic No alteration of consciousness 04/02/2015 Constitutional No recent illness 12/02/2014 Constitutional No chills 12/02/2014 Constitutional No fatigue 12/02/2014 Constitutional No fever 12/02/2014 Cardiovascular No chest pain/pressure 12/02/2014 Cardiovascular No dyspnea 12/02/2014 Musculoskeletal stiffness 12/02/2014 Musculoskeletal swelling 12/02/2014 Dermatologic No rash 12/02/2014 Dermatologic No sores 12/02/2014 Neurologic headache 12/02/2014 Genitourinary/Nephrology No dysuria 12/02/2014 Genitourinary/Nephrology No hematuria 12/02/2014 Gastrointestinal No constipation 12/02/2014 Gastrointestinal No diarrhea 12/02/2014 Gastrointestinal No vomiting 12/02/2014 Gastrointestinal No nausea 12/02/2014 Respiratory No chest congestion 12/02/2014 Respiratory No chest tightness 12/02/2014 Respiratory No cough 12/02/2014 Constitutional No anorexia 12/02/2014 Constitutional No night sweats 12/02/2014 Constitutional No diaphoresis 12/02/2014 Constitutional No insomnia 12/02/2014 Constitutional No malaise 12/02/2014 Constitutional No weight loss 12/02/2014 Constitutional weight gain 12/02/2014 Physical Exam Exam Name System Name Item Name Status Result Effective Dates Notes Full Exam - General 1994 Constitutional general appearance Overall: well developed 10/03/2018 None Full Exam - General 1994 Constitutional general appearance Overall: in no acute distress 10/03/2018 None Full Exam - General 1994 Constitutional general appearance Overall: well nourished 10/03/2018 None Full Exam - General 1994 Eyes conjunctiva/eyelids Overall: conjunctiva clear 10/03/2018 None Full Exam - General 1994 Eyes conjunctiva/eyelids Overall: cornea clear 10/03/2018 None Full Exam - General 1994 Eyes conjunctiva/eyelids Overall: eyelids normal 10/03/2018 None Full Exam - General 1994 Ears/Nose/Throat lips/teeth/gingiva Overall: benign lips 10/03/2018 None Full Exam - General 1994 Ears/Nose/Throat oral cavity/pharynx/larynx Overall: oral mucosa clear 10/03/2018 None Full Exam - General 1994 Ears/Nose/Throat oral cavity/pharynx/larynx Overall: oropharyngeal mucosa clear 10/03/2018 None Full Exam - General 1994 Respiratory auscultation Overall: breath sounds clear bilaterally 10/03/2018 None Full Exam - General 1994 Respiratory respiratory effort/rhythm Overall: no retractions 10/03/2018 None Full Exam - General 1994 Respiratory respiratory effort/rhythm Overall: normal rate 10/03/2018 None Full Exam - General 1994 Cardiovascular auscultation of heart Overall: regular rate 10/03/2018 None Full Exam - General 1994 Cardiovascular auscultation of heart Overall: normal heart sounds 10/03/2018 None Full Exam - General 1994 Musculoskeletal head and neck Overall: head atraumatic 10/03/2018 None Full Exam - General 1994 Neurologic cranial nerves Overall: crainial nerves 2 - 12 grossly intact 10/03/2018 None Full Exam - General 1994 Psychiatric orientation/consciousness Overall: oriented to person, place and time 10/03/2018 None Full Exam - General 1994 Psychiatric mood and affect Overall: normal mood and affect 10/03/2018 None Full Exam - General 1994 Psychiatric appearance Overall: well-groomed, good eye contact 10/03/2018 None Full Exam - General 1994 Constitutional general appearance Overall: well developed 09/23/2018 None Full Exam - General 1994 Constitutional general appearance Overall: in no acute distress 09/23/2018 None Full Exam - General 1994 Constitutional general appearance Overall: well nourished 09/23/2018 None Full Exam - General 1994 Eyes conjunctiva/eyelids Overall: conjunctiva clear 09/23/2018 None Full Exam - General 1994 Eyes conjunctiva/eyelids Overall: cornea clear 09/23/2018 None Full Exam - General 1994 Eyes conjunctiva/eyelids Overall: eyelids normal 09/23/2018 None Full Exam - General 1994 Ears/Nose/Throat lips/teeth/gingiva Overall: benign lips 09/23/2018 None Full Exam - General 1994 Ears/Nose/Throat oral cavity/pharynx/larynx Overall: oral mucosa clear 09/23/2018 None Full Exam - General 1994 Respiratory auscultation Overall: breath sounds clear bilaterally 09/23/2018 None Full Exam - General 1994 Respiratory respiratory effort/rhythm Overall: no retractions 09/23/2018 None Full Exam - General 1994 Respiratory respiratory effort/rhythm Overall: normal rate 09/23/2018 None Full Exam - General 1994 Cardiovascular auscultation of heart Overall: regular rate 09/23/2018 None Full Exam - General 1994 Cardiovascular auscultation of heart Overall: normal heart sounds 09/23/2018 None Full Exam - General 1994 Abdomen abdominal exam Epigastric: tender to palpation 09/23/2018 None Full Exam - General 1994 Abdomen abdominal exam Epigastric: dull pain 09/23/2018 None Full Exam - General 1994 Abdomen abdominal exam Epigastric: no guarding 09/23/2018 None Full Exam - General 1994 Abdomen abdominal exam Epigastric: no rebound tenderness 09/23/2018 None Full Exam - General 1994 Abdomen abdominal exam Epigastric: soft 09/23/2018 None Full Exam - General 1994 Musculoskeletal head and neck Overall: head atraumatic 09/23/2018 None Full Exam - General 1994 Neurologic cranial nerves Overall: crainial nerves 2 - 12 grossly intact 09/23/2018 None Full Exam - General 1994 Psychiatric orientation/consciousness Overall: oriented to person, place and time 09/23/2018 None Full Exam - General 1994 Psychiatric mood and affect Overall: normal mood and affect 09/23/2018 None Full Exam - General 1994 Abdomen abdominal exam Overall: normal bowel sounds 09/23/2018 None Full Exam - General 1994 Musculoskeletal lower extremity Inspection - knee: swelling 09/23/2018 None Full Exam - General 1994 Musculoskeletal lower extremity ROM - knee: pain with flexion 09/23/2018 None Full Exam - General 1994 Constitutional general appearance Overall: well developed 08/26/2018 None Full Exam - General 1994 Constitutional general appearance Overall: in no acute distress 08/26/2018 None Full Exam - General 1994 Constitutional general appearance Overall: well nourished 08/26/2018 None Full Exam - General 1994 Eyes conjunctiva/eyelids Overall: conjunctiva clear 08/26/2018 None Full Exam - General 1994 Eyes conjunctiva/eyelids Overall: cornea clear 08/26/2018 None Full Exam - General 1994 Eyes conjunctiva/eyelids Overall: eyelids normal 08/26/2018 None Full Exam - General 1994 Ears/Nose/Throat lips/teeth/gingiva Overall: benign lips 08/26/2018 None Full Exam - General 1994 Ears/Nose/Throat oral cavity/pharynx/larynx Overall: oral mucosa clear 08/26/2018 None Full Exam - General 1994 Respiratory respiratory effort/rhythm Overall: no retractions 08/26/2018 None Full Exam - General 1994 Respiratory respiratory effort/rhythm Overall: normal rate 08/26/2018 None Full Exam - General 1994 Cardiovascular auscultation of heart Overall: regular rate 08/26/2018 None Full Exam - General 1994 Cardiovascular auscultation of heart Overall: normal heart sounds 08/26/2018 None Full Exam - General 1994 Musculoskeletal head and neck Overall: head atraumatic 08/26/2018 None Full Exam - General 1994 Neurologic cranial nerves Overall: crainial nerves 2 - 12 grossly intact 08/26/2018 None Full Exam - General 1994 Psychiatric orientation/consciousness Overall: oriented to person, place and time 08/26/2018 None Full Exam - General 1994 Psychiatric mood and affect Overall: normal mood and affect 08/26/2018 None Full Exam - General 1994 Constitutional general appearance Overall: well developed 08/12/2018 None Full Exam - General 1994 Constitutional general appearance Overall: in no acute distress 08/12/2018 None Full Exam - General 1994 Constitutional general appearance Overall: well nourished 08/12/2018 None Full Exam - General 1994 Eyes conjunctiva/eyelids Overall: conjunctiva clear 08/12/2018 None Full Exam - General 1994 Eyes conjunctiva/eyelids Overall: cornea clear 08/12/2018 None Full Exam - General 1994 Eyes conjunctiva/eyelids Overall: eyelids normal 08/12/2018 None Full Exam - General 1994 Ears/Nose/Throat lips/teeth/gingiva Overall: benign lips 08/12/2018 None Full Exam - General 1994 Ears/Nose/Throat oral cavity/pharynx/larynx Overall: oral mucosa clear 08/12/2018 None Full Exam - General 1994 Ears/Nose/Throat oral cavity/pharynx/larynx Overall: oropharyngeal mucosa clear 08/12/2018 None Full Exam - General 1994 Respiratory auscultation Overall: breath sounds clear bilaterally 08/12/2018 None Full Exam - General 1994 Respiratory respiratory effort/rhythm Overall: no retractions 08/12/2018 None Full Exam - General 1994 Respiratory respiratory effort/rhythm Overall: normal rate 08/12/2018 None Full Exam - General 1994 Cardiovascular auscultation of heart Overall: regular rate 08/12/2018 None Full Exam - General 1994 Cardiovascular auscultation of heart Overall: normal heart sounds 08/12/2018 None Full Exam - General 1994 Musculoskeletal head and neck Overall: head atraumatic 08/12/2018 None Full Exam - General 1994 Neurologic cranial nerves Overall: crainial nerves 2 - 12 grossly intact 08/12/2018 None Full Exam - General 1994 Psychiatric orientation/consciousness Overall: oriented to person, place and time 08/12/2018 None Full Exam - General 1994 Psychiatric mood and affect Overall: normal mood and affect 08/12/2018 None Full Exam - General 1994 Psychiatric appearance Overall: well-groomed, good eye contact 08/12/2018 None Full Exam - ENT Constitutional general appearance Overall: well nourished 07/17/2018 None Full Exam - ENT Constitutional general appearance Overall: well developed 07/17/2018 None Full Exam - ENT Constitutional general appearance Overall: in no acute distress 07/17/2018 None Full Exam - ENT Ears/Nose/Throat otoscopic exam Overall: external auditory canals normal 07/17/2018 None Full Exam - ENT Ears/Nose/Throat otoscopic exam Left tympanic membrane: air-fluid level 07/17/2018 None Full Exam - ENT Ears/Nose/Throat otoscopic exam Right tympanic membrane: air-fluid level 07/17/2018 None Full Exam - ENT Ears/Nose/Throat lips/teeth/gingiva Overall: benign lips 07/17/2018 None Full Exam - ENT Ears/Nose/Throat oropharynx Overall: oral mucosa clear 07/17/2018 None Full Exam - ENT Ears/Nose/Throat oropharynx Posterior Pharynx: clear post nasal drainage 07/17/2018 None Full Exam - ENT Ears/Nose/Throat oropharynx Posterior Pharynx: erythema 07/17/2018 None Full Exam - ENT Respiratory inspection Overall: no retractions 07/17/2018 None Full Exam - ENT Respiratory inspection Overall: normal rate 07/17/2018 None Full Exam - ENT Respiratory auscultation [...] soft 07/17/2018 None Full Exam - General 1995 Constitutional general appearance Overall: well developed 07/04/2018 None Full Exam - General 1995 Constitutional general appearance Overall: in no acute distress 07/04/2018 None Full Exam - General 1995 Constitutional general appearance Overall: well nourished 07/04/2018 None Full Exam - General 1995 Eyes conjunctiva/eyelids Overall: conjunctiva clear 07/04/2018 None Full Exam - General 1995 Eyes conjunctiva/eyelids Overall: cornea clear 07/04/2018 None Full Exam - General 1995 Eyes conjunctiva/eyelids Overall: eyelids normal 07/04/2018 None Full Exam - General 1995 Ears/Nose/Throat lips/teeth/gingiva Overall: benign lips 07/04/2018 None Full Exam - General 1995 Ears/Nose/Throat [...] affect 07/04/2018 None Full Exam - General 1994 Constitutional general appearance Overall: well developed 06/19/2018 None Full Exam - General 1994 Constitutional general appearance Overall: in no acute distress 06/19/2018 None Full Exam - General 1994 Constitutional general appearance Overall: well nourished 06/19/2018 None Full Exam - General 1994 Eyes conjunctiva/eyelids Overall: conjunctiva clear 06/19/2018 None Full Exam - General 1994 Eyes conjunctiva/eyelids Overall: cornea clear 06/19/2018 None Full Exam - General 1994 Eyes conjunctiva/eyelids Overall: eyelids normal 06/19/2018 None Full Exam [...] None Full Exam - General 1994 Eyes conjunctiva/eyelids Overall: eyelids normal 04/24/2018 None Full Exam - General 1994 Eyes conjunctiva/eyelids Overall: cornea clear 04/24/2018 None Full Exam - General 1994 Eyes conjunctiva/eyelids Overall: conjunctiva clear 04/24/2018 None Full Exam [...] None Full Exam - General 1994 Eyes conjunctiva/eyelids Overall: conjunctiva clear 04/17/2018 None Full Exam [...] None Full Exam - General 1994 Eyes conjunctiva/eyelids Overall: eyelids normal 03/14/2018 None Full Exam - General 1994 Eyes conjunctiva/eyelids Overall: cornea clear 03/14/2018 None Full Exam - General 1994 Eyes conjunctiva/eyelids Overall: conjunctiva clear 03/14/2018 None Full Exam [...] Cardiovascular extremities Edema present: severity 1+ - 4+: 1+ 03/14/2018 None Full Exam - General [...] 02/27/2018 None Full Exam - Orthopedics Eyes conjunctiva/eyelids Overall: conjunctiva clear 02/27/2018 None Full Exam - Orthopedics Eyes conjunctiva/eyelids Overall: eyelids normal 02/27/2018 None Full Exam [...] 12/04/2017 None Full Exam - Orthopedics Eyes conjunctiva/eyelids Overall: conjunctiva clear 12/04/2017 None Full Exam - Orthopedics Eyes conjunctiva/eyelids Overall: eyelids normal 12/04/2017 None Full Exam [...] 11/20/2017 None Full Exam - Orthopedics Eyes conjunctiva/eyelids Overall: conjunctiva clear 11/20/2017 None Full Exam - Orthopedics Eyes conjunctiva/eyelids Overall: eyelids normal 11/20/2017 None Full Exam [...] 09/10/2017 None Full Exam - Orthopedics Eyes conjunctiva/eyelids Overall: conjunctiva clear 09/10/2017 None Full Exam - Orthopedics Eyes conjunctiva/eyelids Overall: eyelids normal 09/10/2017 None Full Exam [...] None Full Exam - General 1994 Eyes conjunctiva/eyelids Overall: conjunctiva clear 08/14/2017 None Full Exam - General 1994 Eyes conjunctiva/eyelids Overall: cornea clear 08/14/2017 None Full Exam - General 1994 Eyes conjunctiva/eyelids Overall: eyelids normal 08/14/2017 None Full Exam [...] 07/31/2017 None Full Exam - Orthopedics Eyes conjunctiva/eyelids Overall: conjunctiva clear 07/31/2017 None Full Exam - Orthopedics Eyes conjunctiva/eyelids Overall: eyelids normal 07/31/2017 None Full Exam [...] ENT Ears/Nose/Throat otoscopic exam Left tympanic membrane: air-fluid level 06/27/2017 None Full Exam - ENT Ears/Nose/Throat otoscopic exam Right tympanic membrane: air-fluid level 06/27/2017 None Full Exam - ENT Ears/Nose/Throat lips/teeth/gingiva Overall: benign lips 06/27/2017 None Full Exam - ENT Ears/Nose/Throat oropharynx Overall: oral mucosa clear 06/27/2017 None Full Exam - ENT Ears/Nose/Throat oropharynx Posterior Pharynx: clear post nasal drainage 06/27/2017 None Full Exam - ENT Ears/Nose/Throat oropharynx Posterior Pharynx: erythema 06/27/2017 None Full Exam - ENT Respiratory inspection Overall: no retractions 06/27/2017 None Full Exam - ENT Respiratory inspection Overall: normal rate 06/27/2017 None Full Exam - ENT Respiratory auscultation [...] None Full Exam - General 1994 Eyes conjunctiva/eyelids Overall: conjunctiva clear 05/21/2017 None Full Exam - General 1994 Eyes conjunctiva/eyelids Overall: cornea clear 05/21/2017 None Full Exam - General 1994 Eyes conjunctiva/eyelids Overall: eyelids normal 05/21/2017 None Full Exam [...] 04/20/2017 None Full Exam - Orthopedics Eyes conjunctiva/eyelids Overall: conjunctiva clear 04/20/2017 None Full Exam - Orthopedics Eyes conjunctiva/eyelids Overall: eyelids normal 04/20/2017 None Full Exam [...] None Full Exam - General 1994 Eyes conjunctiva/eyelids Overall: conjunctiva clear 01/26/2017 None Full Exam - General 1994 Eyes conjunctiva/eyelids Overall: eyelids normal 01/26/2017 None Full Exam [...] None Full Exam - General 1994 Eyes conjunctiva/eyelids Overall: conjunctiva clear 01/11/2017 None Full Exam - General 1994 Eyes conjunctiva/eyelids Overall: eyelids normal 01/11/2017 None Full Exam - General 1994 Ears/Nose/Throat otoscopic exam Overall: external auditory canals clear 01/11/2017 None Full Exam - General 1994 Ears/Nose/Throat otoscopic exam Tympanic membrane: air-fluid level 01/11/2017 None Full Exam - General [...] None Full Exam - General 1994 Eyes conjunctiva/eyelids Overall: conjunctiva clear 11/30/2016 None Full Exam - General 1994 Eyes conjunctiva/eyelids Overall: cornea clear 11/30/2016 None Full Exam - General 1994 Eyes conjunctiva/eyelids Overall: eyelids normal 11/30/2016 None Full Exam [...] None Full Exam - General 1994 Eyes conjunctiva/eyelids Overall: conjunctiva clear 09/28/2016 None Full Exam - General 1994 Eyes conjunctiva/eyelids Overall: cornea clear 09/28/2016 None Full Exam - General 1994 Eyes conjunctiva/eyelids Overall: eyelids normal 09/28/2016 None Full Exam [...] - shoulder: presence of a scar 09/28/2016 Post-operative x 2 weeks Full Exam - General [...] None Full Exam - General 1994 Eyes conjunctiva/eyelids Overall: conjunctiva clear 08/24/2016 None Full Exam - General 1994 Eyes conjunctiva/eyelids Overall: cornea clear 08/24/2016 None Full Exam - General 1994 Eyes conjunctiva/eyelids Overall: eyelids normal 08/24/2016 None Full Exam [...] - shoulder: presence of a scar 08/24/2016 Post-operative x 2 weeks Full Exam - General [...] None Full Exam - General 1994 Eyes conjunctiva/eyelids Overall: conjunctiva clear 07/13/2016 None Full Exam - General 1994 Eyes conjunctiva/eyelids Overall: cornea clear 07/13/2016 None Full Exam - General 1994 Eyes conjunctiva/eyelids Overall: eyelids normal 07/13/2016 None Full Exam - General 1994 Eyes pupils and irises Overall: pupils equal, round, reactive to light and accomodation 07/13/2016 None Full Exam - General 1995 Ears/Nose/Throat otoscopic exam Overall: external auditory canals [...] None Full Exam - General 1994 Eyes conjunctiva/eyelids Overall: conjunctiva clear 05/19/2016 None Full Exam - General 1994 Eyes conjunctiva/eyelids Overall: cornea clear 05/19/2016 None Full Exam - General 1994 Eyes conjunctiva/eyelids Overall: eyelids normal 05/19/2016 None Full Exam [...] None Full Exam - General 1994 Eyes conjunctiva/eyelids Overall: conjunctiva clear 03/16/2016 None Full Exam - General 1994 Eyes conjunctiva/eyelids Overall: cornea clear 03/16/2016 None Full Exam - General 1994 Eyes conjunctiva/eyelids Overall: eyelids normal 03/16/2016 None Full Exam [...] - ENT Respiratory inspection Overall: normal rate 02/28/2016 None Full Exam - ENT Ears/Nose/Throat [...] None Full Exam - General 1994 Eyes conjunctiva/eyelids Overall: conjunctiva clear 01/13/2016 None Full Exam - General 1994 Eyes conjunctiva/eyelids Overall: cornea clear 01/13/2016 None Full Exam - General 1994 Eyes conjunctiva/eyelids Overall: eyelids normal 01/13/2016 None Full Exam - General 1994 Eyes pupils and irises Overall: pupils equal, round, reactive to light and accomodation 01/13/2016 None Full Exam - General 1994 Ears/Nose/Throat otoscopic exam Overall: external auditory canals clear 01/13/2016 None Full Exam - General 1994 Ears/Nose/Throat otoscopic exam Overall: tympanic membranes clear 01/13/2016 None Full Exam - General 1995 Ears/Nose/Throat lips/teeth/gingiva Overall: benign lips 01/13/2016 None [...] None Full Exam - General 1994 Eyes conjunctiva/eyelids Overall: conjunctiva clear 09/27/2015 None Full Exam - General 1994 Eyes conjunctiva/eyelids Overall: cornea clear 09/27/2015 None Full Exam - General 1994 Eyes conjunctiva/eyelids Overall: eyelids normal 09/27/2015 None Full Exam [...] None Full Exam - General 1994 Eyes conjunctiva/eyelids Overall: conjunctiva clear 08/30/2015 None Full Exam - General 1994 Eyes conjunctiva/eyelids Overall: cornea clear 08/30/2015 None Full Exam - General 1994 Eyes conjunctiva/eyelids Overall: eyelids normal 08/30/2015 None Full Exam [...] None Full Exam - General 1994 Eyes conjunctiva/eyelids Overall: conjunctiva clear 08/16/2015 None Full Exam - General 1994 Eyes conjunctiva/eyelids Overall: cornea clear 08/16/2015 None Full Exam - General 1994 Eyes conjunctiva/eyelids Overall: eyelids normal 08/16/2015 None Full Exam [...] None Full Exam - General 1994 Eyes conjunctiva/eyelids Overall: conjunctiva clear 07/15/2015 None Full Exam [...] None Full Exam - General 1994 Eyes conjunctiva/eyelids Overall: cornea clear 07/15/2015 None Full Exam - General 1994 Eyes conjunctiva/eyelids Overall: eyelids normal 07/15/2015 None Full Exam [...] None Full Exam - General 1994 Eyes conjunctiva/eyelids Overall: conjunctiva clear 06/16/2015 None Full Exam [...] None Full Exam - General 1994 Eyes conjunctiva/eyelids Overall: conjunctiva clear 04/02/2015 None Full Exam - General 1994 Eyes conjunctiva/eyelids Overall: cornea clear 04/02/2015 None Full Exam - General 1994 Eyes conjunctiva/eyelids Overall: eyelids normal 04/02/2015 None Full Exam [...] None Full Exam - General 1994 Eyes conjunctiva/eyelids Overall: conjunctiva clear 12/02/2014 None Full Exam - General 1994 Eyes conjunctiva/eyelids Overall: cornea clear 12/02/2014 None Full Exam - General 1994 Eyes conjunctiva/eyelids Overall: eyelids normal 12/02/2014 None Full Exam [...] Procedure Codes Date THER/PROPH/DIAG INJ SC/IM CPT-4: 36697 07/17/2018 TRIAMCINOLONE ACET INJ NOS CPT-4: J3301 07/17/2018 THER/PROPH/DIAG INJ SC/IM CPT-4: 78720 06/27/2017 ROCEPHIN, PER 250 MG CPT- 4: J0696 06/27/2017 IMMUNIZATION ADMIN CPT- 4: 16164 03/16/2017 FLU VAC NO PRSV 4 FLETCHER 3 YRS+ CPT-4: 53869 03/16/2017 Pneumococcal Polysaccharide Vaccine, 23-Valent, Ad CPT-4: 79322 03/16/2017 IMMUNIZATION ADMIN EACH ADD CPT-4: 78739 03/16/2017 TRIAMCINOLONE ACET INJ NOS CPT-4: J3301 01/11/2017 TRIAMCINOLONE ACET INJ NOS CPT-4: J3301 02/28/2016 Vital Signs Date Vital 10/03/2018 Blood Pressure 1: 122/68 Code: 8480-6 Heart Rate 1: 70 bpm Height: 5'6" SpO2: 97% Weight: 09/23/2018 Blood Pressure 1: 130/78 Code: 8480-6 BMI: 41.8 Code: 82408-2 Heart Rate 1: 72 bpm Height: 5'6" SpO2: 96% Weight: 259 lbs 08/26/2018 Blood Pressure 1: 126/72 Code: 8480-6 Heart Rate 1: 68 bpm Height: 5'6" SpO2: 94% Weight: 08/12/2018 Blood Pressure 1: 124/68 Code: 8480-6 BMI: 38.4 Code: 81832-5 Heart Rate 1: 79 bpm Height: 5'6" SpO2: 94% Weight: 238 lbs 07/17/2018 Blood Pressure 1: 126/72 Code: 8480-6 BMI: 38.6 Code: 52018-4 Heart Rate 1: 85 bpm Height: 5'6" SpO2: 95% Temperature: 36.9 (C) / 98.4 (F) Weight: 239 lbs 07/04/2018 Blood Pressure 1: 132/76 Code: 8480-6 Heart Rate 1: 80 bpm Height: SpO2: 97% Weight: 06/19/2018 Blood Pressure 1: 12474 Code: 8480-6 BMI: 38.6 Code: 62149-0 Heart Rate 1: 85 bpm Height: 5'6" SpO2: 95% Weight: 239 lbs 04/24/2018 Blood Pressure 1: 12874 Code: 8480-6 BMI: 37.8 Code: 13758-3 Heart Rate 1: 107 bpm Height: 5'6" SpO2: 98% Weight: 234 lbs 04/17/2018 Blood Pressure 1: 120/64 Code: 8480-6 BMI: 37.8 Code: 92022-8 Heart Rate 1: 84 bpm Height: 5'6" SpO2: 96% Weight: 234 lbs 03/14/2018 Blood Pressure 1: 140/82 Code: 8480-6 BMI: 37.8 Code: 82961-5 Heart Rate 1: 85 bpm Height: 5'6" SpO2: 98% Weight: 234 lbs 02/27/2018 Blood Pressure 1: 142/68 Code: 8480-6 BMI: 36.5 Code: 15590-9 Heart Rate 1: 84 bpm Height: 5'6" SpO2: 97% Weight: 226 lbs 12/19/2017 Blood Pressure 1: 130/86 Code: 8480-6 BMI: 35.7 Code: 86388-3 Heart Rate 1: 94 bpm Height: 5'6" Weight: 221 lbs 12/04/2017 Blood Pressure 1: 138/78 Code: 8480-6 BMI: 36.6 Code: 83295-8 Heart Rate 1: 94 bpm Height: 5'6" SpO2: 98% Weight: 227 lbs 11/20/2017 Weight: 233 lbs 09/10/2017 Blood Pressure 1: 132/86 Code: 8480-6 Heart Rate 1: 86 bpm Height: Weight: 08/14/2017 Blood Pressure 1: 120/74 Code: 8480-6 BMI: 33.9 Code: 72687-2 Heart Rate 1: 92 bpm Height: 5'6" SpO2: 94% Weight: 210 lbs 07/31/2017 Blood Pressure 1: 140/80 Code: 8480-6 BMI: 33.9 Code: 26253-0 Heart Rate 1: 96 bpm Height: 5'6" SpO2: 97% Weight: 210 lbs 06/27/2017 Blood Pressure 1: 128/80 Code: 8480-6 BMI: 33.9 Code: 96654-5 Heart Rate 1: 85 bpm Height: 5'6" SpO2: 98% Temperature: 36.6 (C) / 97.8 (F) Weight: 210 lbs 05/29/2017 Blood Pressure 1: 136/82 Code: 8480-6 Heart Rate 1: 101 bpm Height: 5'6" SpO2: 96% Weight: 05/21/2017 Blood Pressure 1: 144/74 Code: 8480-6 Heart Rate 1: 112 bpm Height: 5'6" SpO2: 94% Temperature: 36.7 (C) / 98.1 (F) Weight: 04/20/2017 Blood Pressure 1: 126/74 Code: 8480-6 BMI: 39.9 Code: 25689-1 Heart Rate 1: 79 bpm Height: 5'6" SpO2: 97% Weight: 247 lbs 01/26/2017 Blood Pressure 1: 132/74 Code: 8480-6 BMI: 37.8 Code: 44884-8 Heart Rate 1: 74 bpm Height: 5'6" SpO2: 97% Weight: 234 lbs 01/11/2017 Blood Pressure 1: 118/68 Code: 8480-6 BMI: 38.7 Code: 82434-2 Heart Rate 1: 91 bpm Height: 5'6" SpO2: 96% Weight: 240 lbs 11/30/2016 Blood Pressure 1: 132/76 Code: 8480-6 BMI: 38.3 Code: 84523-0 Heart Rate 1: 71 bpm Height: 5'6" SpO2: 92% Weight: 237 lbs 09/28/2016 Blood Pressure 1: 122/72 Code: 8480-6 BMI: 39.1 Code: 88755-2 Heart Rate 1: 88 bpm Height: 5'6" SpO2: 94% Weight: 242 lbs 08/24/2016 Blood Pressure 1: 130/87 Code: 8480-6 BMI: 41.5 Code: 85609-1 Heart Rate 1: 95 bpm Height: 5'6" Respiratory Rate: 16 bpm SpO2: 98% Temperature: 36.9 (C) / 98.5 (F) Weight: 257 lbs 07/13/2016 Blood Pressure 1: 132/84 Code: 8480-6 BMI: 42.0 Code: 95911-9 Heart Rate 1: 73 bpm Height: 5'6" SpO2: 97% Weight: 260 lbs 05/19/2016 Blood Pressure 1: 138/76 Code: 8480-6 BMI: 40.8 Code: 37551-7 Heart Rate 1: 80 bpm Height: 5'6" SpO2: 98% Weight: 253 lbs 03/16/2016 Blood Pressure 1: 122/70 Code: 8480-6 BMI: 40.4 Code: 50565-3 Heart Rate 1: 72 bpm Height: 5'6" SpO2: 98% Weight: 250 lbs 02/28/2016 Blood Pressure 1: 136/86 Code: 8480-6 BMI: 40.2 Code: 01639-5 Heart Rate 1: 87 bpm Height: 5'6" SpO2: 96% Temperature: 36.3 (C) / 97.3 (F) Weight: 249 lbs 01/13/2016 Blood Pressure 1: 120/76 Code: 8480-6 BMI: 40.4 Code: 99010-8 Heart Rate 1: 68 bpm Height: 5'6" SpO2: 97% Weight: 250 lbs 09/27/2015 Blood Pressure 1: 112/70 Code: 8480-6 BMI: 38.4 Code: 62987-2 Heart Rate 1: 76 bpm Height: 5'6" SpO2: 98% Weight: 238 lbs 08/30/2015 Blood Pressure 1: 144/82 Code: 8480-6 BMI: 39.5 Code: 10181-2 Heart Rate 1: 82 bpm Height: 5'6" SpO2: 97% Weight: 245 lbs 08/16/2015 Blood Pressure 1: 140/72 Code: 8480-6 BMI: 38.9 Code: 79999-0 Heart Rate 1: 72 bpm Height: 5'6" SpO2: 97% Weight: 241 lbs 07/15/2015 Blood Pressure 1: 128/80 Code: 8480-6 BMI: 39.3 Code: 68701-7 Heart Rate 1: 86 bpm Height: 5'6" SpO2: 98% Weight: 243 lbs 8 oz 06/16/2015 Blood Pressure 1: 146/86 Code: 8480-6 BMI: 39.6 Code: 02059-8 Heart Rate 1: 76 bpm Height: 5'6" SpO2: 97% Weight: 245 lbs 8 oz 04/02/2015 Blood Pressure 1: 132/86 Code: 8480-6 BMI: 40.7 Code: 15071-4 Heart Rate 1: 94 bpm Height: 5'6" SpO2: 98% Weight: 252 lbs 12/02/2014 Blood Pressure 1: 122/90 Code: 8480-6 BMI: 41.6 Code: 00425-1 Heart Rate 1: 77 bpm Height: 5'6" SpO2: 95% Weight: 258 lbs Functional Status No Functional Status data History of Present Illness Symptom Name Status Result Effective Date Notes Location in the epigastric area 10/03/2018 None Quality acute 10/03/2018 None Quality intermittent 10/03/2018 None Quality worsening 10/03/2018 None Onset and Resolution ongoing 10/03/2018 None Pertinent Findings Denies cough 10/03/2018 None Pertinent Findings Denies fever 10/03/2018 None Additional Comments medication use 10/03/2018 None Location in the epigastric area 09/23/2018 None Quality acute 09/23/2018 None Quality intermittent 09/23/2018 None Quality worsening 09/23/2018 None Onset and Resolution ongoing 09/23/2018 None Pertinent Findings Denies fever 09/23/2018 None Pertinent Findings Denies cough 09/23/2018 None Quality non-insulin dependent 08/26/2018 None Quality non-insulin dependent 08/12/2018 None Test results Pt checking blood glucose at home, see scanned readings 08/12/2018 None Glucose monitoring twice daily 08/12/2018 None Location frontal sinuses 07/17/2018 None Quality fullness 07/17/2018 None Quality constant 07/17/2018 None Onset and Resolution sudden in onset 07/17/2018 None Onset of Symptom 3 days ago 07/17/2018 None Location diffusely 07/17/2018 None Quality aching 07/17/2018 None Onset and Resolution sudden in onset 07/17/2018 None Location in the throat 07/17/2018 None Quality constant 07/17/2018 None Quality hacking 07/17/2018 None Quality productive 07/17/2018 None Onset and Resolution sudden in onset 07/17/2018 None Location oral intake 07/04/2018 None Additional Comments medication: lexapro 07/04/2018 None Quality constant 06/19/2018 None Quality disrupted sleep 06/19/2018 None Onset of Symptom 3 weeks ago 06/19/2018 None Quality constant 06/19/2018 None Onset and Resolution sudden in onset 06/19/2018 None Onset of Symptom 3 weeks ago 06/19/2018 None Pertinent Findings exhaustion 06/19/2018 None Pertinent Findings helplessness 06/19/2018 None Pertinent Findings loss of interest in activities 06/19/2018 None Pertinent Findings sleep disturbance 06/19/2018 None Pertinent Findings withdrawn 06/19/2018 None Frequency of Episodes daily 06/19/2018 None Location stabbing 04/24/2018 None Location in the substernal area 04/24/2018 None Quality stabbing 04/24/2018 None Quality intermittent 04/24/2018 None Triggers no [...] Quality acute 05/29/2017 None erythema Color red 05/29/2017 None erythema Quality painful 05/29/2017 None erythema [...] the lung 01/11/2017 None cough Quality acute 01/11/2017 None cough Quality hacking 01/11/2017 None cough [...] obesity 07/15/2015 None knee pain Significant Medications NSAID's 07/15/2015 None knee pain Exacerbating Factors exertion [...] Quality improving 07/15/2015 None cough Quality acute 07/15/2015 None cough Onset and Resolution sudden in [...] obesity 06/16/2015 None knee pain Significant Medications NSAID's 06/16/2015 None knee pain Alleviating Factors NSAID's [...] obesity 04/02/2015 None knee pain Significant Medications NSAID's 04/02/2015 None knee pain Alleviating Factors NSAID's [...] disease 12/02/2014 None knee pain Significant Medications NSAID's 12/02/2014 None knee pain Mechanism of injury unknown 12/02/2014 states there has been no specific injury, just continued use of the knees over the years knee pain Alleviating Factors NSAID's 12/02/2014 None knee pain Exacerbating Factors weight bearing 12/02/2014 None knee pain Exacerbating Factors exertion 12/02/2014 None Advance Directives No Advance Directive data Encounters Encounter Performer Location Codes Date 25290 EST. PATIENT, LEVEL IV Diagnosis: Essential (primary) hypertension[ICD10: I10] Diagnosis: Gastro-esophageal reflux disease without esophagitis[ICD10: K21.9] Petra Trejo MD, [facility] CPT-4: 65258 10/03/2018 18225 EST. PATIENT, LEVEL IV Diagnosis: Gastro-esophageal reflux disease without esophagitis[ICD10: K21.9] Diagnosis: Pain in left knee[ICD10: M25.562] Petra Trejo MD, [facility] CPT-4: 15470 09/23/2018 01441 EST. PATIENT, LEVEL III Diagnosis: Dysuria[ICD10: R30.0] Diagnosis: Other obesity due to excess calories[ICD10: E66.09] Diagnosis: Type 2 diabetes mellitus with hyperglycemia[ICD10: E11.65] Petra Trejo MD, [facility] CPT-4: 56934 08/26/2018 27236 EST. PATIENT, LEVEL III Diagnosis: Type 2 diabetes mellitus without complications[ICD10: E11.9] Petra Trejo MD, [facility] CPT-4: 04423 08/12/2018 45676 EST. PATIENT, LEVEL III Diagnosis: Acute laryngopharyngitis[ICD10: J06.0] Diagnosis: Cough[ICD10: R05] Diagnosis: Other allergic rhinitis[ICD10: J30.89] Diagnosis: Right upper quadrant pain[ICD10: R10.11] Petra Trejo MD, [facility] CPT-4: 70395 07/17/2018 64808 EST. PATIENT, LEVEL III Diagnosis: Generalized anxiety disorder[ICD10: F41.1] Diagnosis: Major depressive disorder, single episode, moderate[ICD10: F32.1] Petra Trejo MD, [facility] CPT-4: 17622 07/04/2018 62782 EST. PATIENT, LEVEL IV Diagnosis: Generalized anxiety disorder[ICD10: F41.1] Diagnosis: Major depressive disorder, single episode, moderate[ICD10: F32.1] Diagnosis: Other insomnia[ICD10: G47.09] Petra Trejo MD, [facility] CPT-4: 45740 06/19/2018 29025 EST. PATIENT, LEVEL IV Diagnosis: Right upper quadrant pain[ICD10: R10.11] Diagnosis: Other chest pain[ICD10: R07.89] Petra Trejo MD, [facility] CPT-4: 11305 04/24/2018 77174 EST. PATIENT, LEVEL III Diagnosis: Generalized anxiety disorder[ICD10: F41.1] Diagnosis: Major depressive disorder, recurrent, mild[ICD10: F33.0] Diagnosis: Essential (primary) hypertension[ICD10: I10] Diagnosis: Type 2 diabetes mellitus without complications[ICD10: E11.9] Petra Trejo MD, [facility] CPT-4: 90540 04/17/2018 32559 EST. PATIENT, LEVEL III Diagnosis: Localized edema[ICD10: R60.0] Diagnosis: Essential (primary) hypertension[ICD10: I10] Petra Trejo MD, [facility] CPT-4: 74001 03/14/2018 79960 EST. PATIENT, LEVEL III Diagnosis: Pain in left knee[ICD10: M25.562] Diagnosis: Other obesity due to excess calories[ICD10: E66.09] Diagnosis: Other insomnia[ICD10: G47.09] Diagnosis: Generalized anxiety disorder[ICD10: F41.1] Petra Trejo MD, [facility] CPT-4: 69268 02/27/2018 ([id number]) Miscellaneous no charge Diagnosis: Other obesity due to excess calories[ICD10: E66.09] Heidy Trejo MD, [facility] CPT-4: 15324 12/19/2017 10294 EST. PATIENT, LEVEL III Diagnosis: Pain in right foot[ICD10: M79.671] Diagnosis: Pain in right ankle and joints of right foot[ICD10: M25.571] Petra Trejo MD, [facility] CPT-4: 35337 12/04/2017 35102 EST. PATIENT, LEVEL III Diagnosis: Pain in left knee[ICD10: M25.562] Diagnosis: Type 2 diabetes mellitus without complications[ICD10: E11.9] Diagnosis: Other obesity due to excess calories[ICD10: E66.09] Petra Trejo MD, [facility] CPT-4: 28111 11/20/2017 82015 EST. PATIENT, LEVEL III Diagnosis: Pain in left knee[ICD10: M25.562] Petra Trejo MD, [facility] CPT-4: 04562 09/10/2017 29808 EST. PATIENT, LEVEL III Diagnosis: Encounter for follow-up examination after completed treatment for conditions other than malignant neoplasm[ICD10: Z09] Diagnosis: Pain in left knee[ICD10: M25.562] Petra Trejo MD, [facility] CPT-4: 10690 08/14/2017 04632 EST. PATIENT, LEVEL III Diagnosis: Pain in left knee[ICD10: M25.562] Petra Trejo MD, [facility] CPT-4: 43975 07/31/2017 08988 EST. PATIENT, LEVEL III Diagnosis: Acute laryngopharyngitis[ICD10: J06.0] Diagnosis: Other allergic rhinitis[ICD10: J30.89] Petra Trejo MD, [facility] CPT- 4: 74126 06/27/2017 13497 EST. PATIENT, LEVEL III Diagnosis: Ganglion, left hand[ICD10: M67.442] Diagnosis: Essential (primary) hypertension[ICD10: I10] Diagnosis: Generalized anxiety disorder[ICD10: F41.1] Diagnosis: Other insomnia[ICD10: G47.09] Petra Trejo MD, [facility] CPT-4: 12950 05/29/2017 94302 EST. PATIENT, LEVEL III Diagnosis: Essential (primary) hypertension[ICD10: I10] Diagnosis: Palpitations[ICD10: R00.2] Diagnosis: Generalized anxiety disorder[ICD10: F41.1] Petra Trejo MD, [facility] CPT-4: 30077 05/21/2017 62183 EST. PATIENT, LEVEL III Diagnosis: Pain in right foot[ICD10: M79.671] Petra Trejo MD, [facility] CPT-4: 25239 04/20/2017 99302 EST. PATIENT, LEVEL IV Diagnosis: Other insomnia[ICD10: G47.09] Diagnosis: Other skin changes[ICD10: R23.8] Petra Trejo MD, [facility] CPT-4: 80904 01/26/2017 69620 EST. PATIENT, LEVEL IV Diagnosis: Acute bronchitis due to other specified organisms[ICD10: J20.8] Petra Trejo MD, [facility] CPT-4: 46134 01/11/2017 ([id number]) 18563 EST. PATIENT, LEVEL IV Diagnosis: Essential (primary) hypertension[ICD10: I10] Diagnosis: Other insomnia[ICD10: G47.09] Diagnosis: Primary generalized (osteo)arthritis[ICD10: M15.0] Diagnosis: Other obesity due to excess calories[ICD10: E66.09] Claudette Trejo MD, [facility] CPT-4: 73275 11/30/2016 ([id number]) 72647 EST. PATIENT, LEVEL III Diagnosis: Other obesity due to excess calories[ICD10: E66.09] Diagnosis: Other insomnia[ICD10: G47.09] Diagnosis: Generalized anxiety disorder[ICD10: F41.1] Claudette Trejo MD, [facility] CPT-4: 32563 09/28/2016 ([id number]) 35923 EST. PATIENT, LEVEL IV Diagnosis: Generalized anxiety disorder[ICD10: F41.1] Diagnosis: Major depressive disorder, recurrent, mild[ICD10: F33.0] Diagnosis: Other obesity due to excess calories[ICD10: E66.09] Diagnosis: Other insomnia[ICD10: G47.09] Claudette Trejo MD, [facility] CPT-4: 54378 08/24/2016 ([id number]) 37179 EST. PATIENT, LEVEL III Diagnosis: Other obesity due to excess calories[ICD10: E66.09] Diagnosis: Major depressive disorder, recurrent, moderate[ICD10: F33.1] Diagnosis: Low back pain[ICD10: M54.5] Heidy Trejo MD, [facility] CPT-4: 74761 07/13/2016 45066 EST. PATIENT, LEVEL IV Diagnosis: Other muscle spasm[ICD10: M62.838] Diagnosis: Generalized anxiety disorder[ICD10: F41.1] Diagnosis: Major depressive disorder, recurrent, moderate[ICD10: F33.1] Diagnosis: Other insomnia[ICD10: G47.09] Petra Trejo MD, [facility] CPT-4: 56894 05/19/2016 ([id number]) 34224 EST. PATIENT, LEVEL III Diagnosis: Generalized anxiety disorder[ICD10: F41.1] Diagnosis: Major depressive disorder, recurrent, moderate[ICD10: F33.1] Heidy Trejo MD, [facility] CPT-4: 97576 03/16/2016 ([id number]) 40347 EST. PATIENT, LEVEL III Diagnosis: Streptococcal pharyngitis[ICD10: J02.0] Claudette Trejo MD, [facility] CPT-4: 06474 02/28/2016 ([id number]) 58639 EST. PATIENT, LEVEL III Diagnosis: Generalized anxiety disorder[ICD10: F41.1] Diagnosis: Other obesity due to excess calories[ICD10: E66.09] Heidy Trejo MD, [facility] CPT-4: 93967 01/13/2016 ([id number]) 92260 EST. PATIENT, LEVEL III Diagnosis: Generalized anxiety disorder[ICD10: F41.1] Diagnosis: Major depressive disorder, recurrent, unspecified[ICD10: F33.9] Heidy Trejo MD, [facility] CPT-4: 66350 09/27/2015 30278 EST. PATIENT, LEVEL IV Diagnosis: Chronic pain syndrome[ICD10: G89.4] Diagnosis: Other obesity due to excess calories[ICD10: E66.09] Diagnosis: Essential (primary) hypertension[ICD10: I10] Diagnosis: Generalized anxiety disorder[ICD10: F41.1] Diagnosis: Excessive and frequent menstruation with regular cycle[ICD10: N92.0] Diagnosis: Pain in right knee[ICD10: M25.561] Petra Trejo MD, [facility] CPT-4: 75098 08/30/2015 41571 EST. PATIENT, LEVEL IV Diagnosis: Palpitations[ICD10: R00.2] Diagnosis: Other obesity due to excess calories[ICD10: E66.09] Petra Trejo MD, [facility] CPT-4: 43511 08/16/2015 ([id number]) 61346 EST. PATIENT, LEVEL IV Diagnosis: Pain in right knee[ICD10: M25.561] Diagnosis: Primary generalized (osteo)arthritis[ICD10: M15.0] Diagnosis: Acute maxillary sinusitis, unspecified[ICD10: J01.00] Heidy Trejo MD, [facility] CPT-4: 69144 07/15/2015 ([id number]) 62686 EST. PATIENT, LEVEL IV Diagnosis: Primary generalized (osteo)arthritis[ICD10: M15.0] Diagnosis: Restless legs syndrome[ICD10: G25.81] Diagnosis: Chronic pain syndrome[ICD10: G89.4] Heidy Trejo MD, [facility] CPT- 4: 75469 06/16/2015 ([id number]) 98298 EST. PATIENT, LEVEL III Diagnosis: Primary generalized (osteo)arthritis[ICD10: M15.0] Diagnosis: Varicose veins of bilateral lower extremities with pain[ICD10: I83.813] Claudettemary Trejo MD, [facility] CPT-4: 28777 04/02/2015 ([id number]) OFFICE VISIT, NEW - LEVEL 3 Diagnosis: Osteoarthritis[ICD9: 715.90] Diagnosis: ABNORMAL WEIGHT GAIN[ICD9: 783.1] Diagnosis: Superficial thrombophlebitis[ICD9: 451.9] Carey Trejo MD, [facility] CPT-4: 46633 12/02/2014 Plan of Care Planned Activity Notes Codes Status Date Visit Plan: Hypertension - well controlled - continue with current medications, continue with no added salt diet. Pt has been encouraged to exercise daily. The pt has been advised to call the office if there are any acute concerns about change in blood pressure readings at home. Esophageal Reflux - the patient has been counseled against excessive intake of caffeine, spicy foods, peppermint, and cinnamon - all of which can exacerbate esophageal reflux. The patient is to take medications as prescribed and call the office if the symptoms are not improving. 10/03/2018 Appointment: Petra Rivas WPtel: [address] [place], [place] [phone] (15 min) Moderate 10/03/2018 Patient Education: Patient Medication Summary Completed 10/03/2018 Care Plan: Referral Order SNOMED-CT : [id number] Pending 09/24/2018 Visit Plan: Esophageal Reflux - will refer for EGD - the patient has been counseled against excessive intake of caffeine, spicy foods, peppermint, and cinnamon - all of which can exacerbate esophageal reflux. The p atient is to take medications as prescribed and call the office if the symptoms are not improving. Left knee pain - ongoing - pt has seen Dr. Haji in the past and would like to see Dr. Lemus for a second opinion 09/23/2018 Appointment: [phone] ([facility] min[facility] Complex 09/23/2018 Patient Education: Patient Medication Summary Completed 09/23/2018 Visit Plan: UTI - pt with positive urinalysis - culture sent if appropriate. Antibiotic electronically prescribed to pt's pharmacy of choice. Pt to call if symptoms do not improve. Diabetes Mellitus - Uncontrolled - per recent [...] to allow for greater blood glucose control. 08/26/2018 Appointment: Petra Rivas WPtel: [phone] [facility] (30 min) Complex 08/26/2018 Patient Education: Patient Medication Summary Completed 08/26/2018 Patient Education: Obesity Completed 08/26/2018 Patient Education: Diabetes Completed 08/26/2018 Visit Plan: Diabetes Mellitus - Uncontrolled - per recent [...] to allow for greater blood glucose control. 08/12/2018 Appointment: Petra Rivas [facility]Ptel[facility] ([place] min) Complex 08/12/2018 Patient Education: Patient Medication Summary Completed 08/12/2018 Patient Education: Diabetes Completed 08/12/2018 Visit Plan: URI - Pt advised to [...] indicated 07/17/2018 Appointment: Petra Rivas WPtel: [phone] [facility] (30 min) Complex 07/17/2018 Patient Education: Patient [...] current medications. 07/04/2018 Appointment: Petra Rivas WPtel: [phone] [facility] (30 min) Complex 07/04/2018 Patient Education: Patient [...] patient. 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 04/17/2018 Appointment: Pet[facility] Rivas [facility]Ptel[facility] [place] (15 min) Moderate 04/17/2018 Patient Education: [...] to prevent dependent edema, compression has been r ecommended to help to naturally decrease peripheral edema. Diuretic use has been discussed and pt has been instructed in appropriate use of such medication as necessary to further attempt to reduce peripheral edema. 03/14/2018 Appointment: Petra Rivas [facility]Ptel[phone] [place] (15 min) Moderate 03/14/2018 Patient Education: [...] to ortho 02/27/2018 Appointment: Petra Rivas WPtel: [facility] [place] (30 min) Complex 02/27/2018 Patient Education: [...] improve. 12/04/2017 Appointment: Petra Rivas WPtel[phone] (15 min) Moderate 12/04/2017 Patient Education: Patient [...] glucose control. 11/20/2017 Appointment: Petra Rivas WPtel: [facility] (15 min) Moderate 11/20/2017 Patient Education: Patient [...] not improve. 09/10/2017 Appointment: Petra Rivas WPtel: [facility] (15 min) Moderate 09/10/2017 Patient Education: Patient [...] not improve. 08/14/2017 Appointment: Petra Rivas WPtel: [facility] [place] (30 min) Complex 08/14/2017 Patient Education: Patient Medication Summary Completed 08/14/2017 Appointment: Petra Rivas WPtel: [address] [place], [place] [phone] [place] (15 min) Moderate 08/01/2017 Visit Plan: Knee pain - pt is to use RICE - Rest, Ice, Compression, Elevation - pt is to use crutches as directed - The pt is to use prn antiinflammatories to manage acute pain. The patient is to call the office if the pain is worsening or does not improve. 07/31/2017 Appointment: Petra Rivas WPtel: [facility] [place] (30 min) Complex 07/31/2017 Patient Education: Patient Medication Summary Completed 07/31/2017 Care Plan: X-RAY EXAM OF KNEE 3 LOINC : 74490-8 Pending 07/31/2017 Visit Plan: URI - Pt [...] allergy spray. 06/27/2017 Appointment: Petra Rivas WPtel: [facility] [place] (15 min) Moderate 06/27/2017 Patient Education: Patient Medication Summary Completed 06/27/2017 Referral: Jignesh Quinn [facility] Patient informed. Referral info faxed. Completed 06/13/2017 [...] Dr. Quinn 05/29/2017 Appointment: Petra Rivas WPtel: [facility] (15 min) Moderate 05/29/2017 Patient Education: Patient Medication Summary Completed 05/29/2017 Care Plan: Referral Order SNOMED-CT : [id number] Pending 05/29/2017 Appointment: Petra Rivas WPtel: [facility] (15 min) Moderate 05/28/2017 Visit Plan: Palpitations [...] concerns. 05/21/2017 Appointment: Pet[facility] Rivas [facility]Ptel[phone] (15 min) Moderate 05/21/2017 Patient Education: Patient Medication Summary Completed 05/21/2017 Visit Plan: Right heel pain - will send RX, pt is to do stretches as directed - The pt is to use prn antiinflammatories to manage acute pain. The patient is to call the office if the pain is worsening or does not improve. 04/20/2017 Appointment: Petra Rivas WPtel: [phone] [facility] (30 min) Complex 04/20/2017 Patient Education: Patient Medication Summary Completed 04/20/2017 Appointment: Petra Rivas WPtel: [phone] [facility] (30 min) Complex 03/29/2017 Patient Education: Patient Medication Summary Completed 03/16/2017 Referral: Maycol Quijano Referral Initiated 02/08/2017 Care Plan: Referral Order SNOMED-CT : [id number] Pending 01/28/2017 Visit Plan: Insomnia - Pt [...] concerns. 01/26/2017 Appointment: Petra Rivas WPtel: [phone] (30 min) Complex 01/26/2017 Patient Education: Patient [...] worsen. 01/11/2017 Appointment: Pet[facility] Rivas WPtel: [phone] (15 min) Moderate 01/11/2017 Patient Education: Patient [...] on use. 11/30/2016 Appointment: Claudette Savage WPtel: [phone] (15 min) Moderate 11/30/2016 Patient Education: Patient Medication Summary Completed 11/30/2016 Patient Education: Obesity Completed 11/30/2016 Care Plan: BMI Above normal followup SELF-MGMT EDUC & TRAIN 1 PT Pending 11/30/2016 Visit Plan: Nvhksgn-qpwnnrxjez-tkmagkea with increase in cymbalta- no changes Insomnia-RX for belsomra provided and instructed on use Obesity- patient down 15#-no changes-continue diet/exercise-follow up in 2 months 09/28/2016 Appointment: Claudette Savage [facility]Ptel[phone] (15 min) Moderate 09/28/2016 Patient Education: Patient Medication Summary Completed 09/28/2016 Patient Education: Obesity Completed 09/28/2016 Care Plan: BMI Above normal followup SELF-MGMT EDUC & TRAIN 1 PT Pending 09/28/2016 Visit Plan: Paajqmn-xbqasyoxxb-qmesvhns-increase cymbalta to 60mg daily. Increase xanax as directed-call if symptoms uncontrolled. Pt is aware of the risks and benefits of treatment with the above medications and v erbalized understanding of plan. Obesity - chronic issue with this patient. The pt has been counseled about diet changes, calorie restriction, and need to exercise. Pt will RTC in one month for weight check. Insomnia-increase xanax as directed for insomnia/anxiety 08/24/2016 Appointment: Claudette Savage WPtel: [phone] [phone] [place] (15 min) Moderate 08/24/2016 Patient Education: Patient Medication Summary Completed 08/24/2016 Patient Education: Obesity Completed 08/24/2016 Care Plan: BMI Above normal followup SELF-MGMT EDUC & TRAIN 1 PT Pending 08/24/2016 Visit Plan: Low back pain- the patient [...] not improving. 07/13/2016 Appointment: Heidy Trejo WPtel: [facility] [place] (15 min) Moderate 07/13/2016 Patient [...] insomnia. 05/19/2016 Appointment: Petra Rivas WPtel: [phone] [facility] (30 min) Complex 05/19/2016 Patient Education: [...] patient. 03/16/2016 Appointment: Heidy Trejo WPtel: [phone] [facility] (15 min) Moderate 03/16/2016 Patient [...] swab. 02/28/2016 Appointment: Claudette Savage WPtel: [phone] [phone] [place] (10 min) Simple 02/28/2016 Patient [...] stop lexapro 01/13/2016 Appointment: Heidy Trejo WPtel: [phone] [facility] (15 min) Moderate 01/13/2016 Patient Education: Patient Medication Summary Completed 01/13/2016 Patient Education: Obesity Completed 01/13/2016 Visit Plan: Anxiety and Depression- the patient has uncontrolled anxiety and depression and will benefit from an SSRI on a daily basis to attempt control of the symptoms of anxiety (tachycardia, overwhelming sensat ions, stress, insomnia, etc). I also believe that the patient will benefit from very low dose of prn benzodiazepine. Pt is aware of the risks and benefits of treatment with the above medications. 09/27/2015 Patient Education: Patient Medication Summary Completed 09/27/2015 Care Plan: Referral Order SNOMED-CT : [id number] Pending 08/31/2015 Visit Plan: Anxiety - the [...] SELF-MGMT EDUC & TRAIN 1 PT Ordered 08/16/2015 Visit Plan: Arthritis- occasionally uncontrolled symptoms- recommend [...] pain symptoms. 07/15/2015 Appointment: Heidy Trejo WPtel: [address] [place], [place] [id number] (15 min) Moderate 07/15/2015 Patient Education: Patient [...] 06/16/2015 Visit Plan: OA-hips and knees-recommend additional labs-patient wants to [...] vein clinic 04/02/2015 Appointment: Claudette Savage WPtel: [phone] (15 min) Moderate 04/02/2015 Patient Education: [...] Summary Completed 12/02/2014 Referral: Belle Hoffman WPtel: [address] [place] [address] they will call and set the appt with her Initiated Referral: Justo Lemus Referral Initiated Referral: Maycol Quijano Referral Initiated Referral: Belle Hoffman WPtel: [facility] [address] Referral Initiated Referral: Jignesh Quinn [place] Referral Initiated Instructions Comment . Hypertension - well controlled - continue with current medications, continue with no added salt diet. Pt has been encouraged to exercise daily. The pt has been advised to call the office if there are any acute concerns about change in blood pressure readings at home. Esophageal Reflux - the patient has been counseled against excessive intake of caffeine, spicy foods, peppermint, and cinnamon - all of which can exacerbate esophageal reflux. The patient is to take medications as prescribed and call the office if the symptoms are not improving. Kenalog . Strep throat - pt give rx for antibiotic - sent to pharmacy - pt had swab of throat today - will culture the swab. Increase Cymbalta from 30 mg/day to 60 mg/day Start Victoza 0.6 mg/day for one week, then increase to 1.2 mg/day for one week, then increase to 1.8 mg/day Patient states understanding of administration instructions. Refill Xanax 1 mg at night for anxiety . Umamxhu-ozpzvprdvc-ibmhmywb-increase cymbalta to 60mg daily. 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 . Diabetes Mellitus - Uncontrolled - per recent [...] to allow for greater blood glucose control. use tylenol instead of naproxen or ibuprofen protonix twice a day x 1 week carafate 4 times a day we will refer you back to Dr. Oliveira for an EGD refer to Dr. Lemus for left knee pain avoid excessive intake of caffeine, spicy foods, peppermint, and cinnamon increase hydrochlorothiazide to 50mg daily . Esophageal Reflux - will refer for EGD - the patient has been counseled against excessive intake of caffeine, spicy foods, peppermint, and cinnamon - all of which can exacerbate esophageal reflux. The patient is to take medications as prescribed and call the office if the symptoms are not improving. Left knee pain - ongoing - pt has seen Dr. Haji in the past and would like to see Dr. Lemus for a second opinion . UTI - pt with positive urinalysis - culture sent if appropriate. Antibiotic electronically prescribed to pt's pharmacy of choice. Pt to call if symptoms do not improve. Diabetes Mellitus - Uncontrolled - per recent [...] to allow for greater blood glucose control. pramipexole - 0.5mg - take at bedtime - should help with the restless legs. get an over the counter - supplement - called Move Free, Joint Ease - (glucosamine and chondroiton) - will help to re- [...] clinic with any changes, questions, or concerns. . Left knee pain [...] throat today - will culture the swab. contrave website contrave 1 pill nightly x [...] been appropriately prescribed for this patient. . Palpitations - pt states that she [...] RTC in 2 weeks for weight check. breathing treatments - 4 times a day [...] situational exposure. No change in current medications. BELSOMRA . Tcdkdcs-zsqgnqzljh-hcnbvhkv with increase in cymbalta-no changes Insomnia-RX for belsomra provided and instructed on use Obesity-patient down 15#-no changes-continue diet/exercise-follow up in 2 months
[2018-10-14] MEDS ORDERED: LACTATED RINGERS 1,000 ML IV STA (12:32)
--- NOTE | 2018-10-14 12:35 | Progress Note-Pre Operative ---
Pre-Operative Progress Note H&P Reviewed The H&P was reviewed, patient examined and no changes noted. Time Seen by Provider: 12:34 Date H&P Reviewed: Oct 14, 2018 Time H&P Reviewed: 12:33 Pre-Operative Diagnosis: Chronic Gastritis KELLI DOWELL DO Oct 14, 2018 12:35
--- OUTSIDE RECORDS SUMMARY | 2018-10-14 12:35 | XMS REPORT | CCD ---
Author Author [place] Organization [facility] Address [address] [place] [address] Phone Care Team Providers Care Screening Nurse Name Role Phone PP Unavailable CCM Unavailable Summary Purpose Interface Exchange Insurance Providers Payer name Policy type / Coverage type Covered constitution party ID Effective Begin Date Effective End Date [facility] Commercial Insurance [id number] Unknown Family history Brother Diagnosis Age At [...] Description Effective Dates Tobacco history SNOMED CT: 9448322 Quit less than 5 years ago 04/02/2015 Alcohol history Unknown occasionally drinks alcohol 04/02/2015 Marital status Unknown Manuel Vitale 12/02/2014 Number of children Unknown 3 12/02/2014 Allergies, Adverse Reactions, Alerts Substance Reaction Codes Entered Date Inactivated Date Status * NO KNOWN FOOD ALLERGIES Unknown 12/02/2014 No Inactive Date Active Penicillin Unknown 12/02/2014 No Inactive Date Active tramadol RxNorm: 55590 12/02/2014 No Inactive Date Active Past Medical [...] Fill Instructions cyclobenzaprine 5 mg tablet RxNorm: 811595 1 Tablet(s) PO TID as needed 10/03/2018 No Stop Date Active potassium chloride ER 10 mEq tablet,extended release RxNorm: 290520 1 TABLET(S) PO DAILY NEEDED TO TAKE WHEN YOU TAKE THE LASIX 10/02/2018 12/30/2018 Active Lasix 20 mg tablet RxNorm: 218315 1 TABLET(S) PO DAILY NEEDED EDEMA 10/02/2018 12/30/2018 Active hydrochlorothiazide 25 mg tablet RxNorm: 393283 1 TABLET(S) PO DAILY 09/19/2018 12/17/2018 Active Saxenda 3 mg/0.5 mL (18 mg/3 mL) subcutaneous pen injector RxNorm: 7337591 1.8 Milligram(s) SQ daily 08/28/2018 12/25/2018 Active disp qty sufficient- [place] approved Saxenda 3 mg/0.5 mL (18 mg/3 mL) subcutaneous pen injector RxNorm: 9283458 1.8 Milligram(s) SQ daily 08/28/2018 08/27/2018 Inactive disp qty sufficient Saxenda 3 mg/0.5 mL (18 mg/3 mL) subcutaneous pen injector RxNorm: 0725481 1.8 Milliliter(s) SQ daily 08/27/2018 08/27/2018 Inactive disp qty sufficient Xanax 1 mg tablet RxNorm: 039948 1-2 Tablet(s) PO QHS as needed insomnia 08/26/2018 11/23/2018 Active metformin 500 mg tablet RxNorm: 541750 1 Tablet(s) PO BID 08/26/2018 12/23/2018 Active Keflex 500 mg capsule RxNorm: 572841 1 Capsule(s) PO TID 08/26/2018 09/01/2018 Inactive Protonix 40 mg tablet,delayed release RxNorm: 096066 1 TABLET(S) PO DAILY 08/12/2018 12/09/2018 Active metformin 500 mg tablet RxNorm: 143930 1 Tablet(s) PO daily 08/12/2018 08/25/2018 Inactive Lasix 20 mg tablet RxNorm: 439777 1 TABLET(S) PO DAILY NEEDED EDEMA 08/06/2018 10/01/2018 Inactive potassium chloride ER 10 mEq tablet,extended release RxNorm: 494261 1 TABLET(S) PO DAILY NEEDED TO TAKE WHEN YOU TAKE THE LASIX 08/06/2018 10/01/2018 Inactive Zorvolex 35 mg capsule RxNorm: 2230507 TAKE 1 CAPSULE BY MOUTH THREE (3) TIMES DAILY 08/02/2018 11/29/2018 Active prednisone 20 mg tablet RxNorm: 402097 Tablet(s) PO 07/17/2018 No Stop Date Active 20mg tonight then starting tomorrow: 60,60,40,40,20,20,10,10 Remeron 15 mg tablet RxNorm: 955088 1/2 Tablet(s) PO QHS 07/17/2018 2019 Active Tamiflu 75 mg capsule RxNorm: 805146 1 Capsule(s) PO BID 07/17/2018 07/21/2018 Inactive Kenalog 40 mg/mL suspension for injection RxNorm: 0501542 Milliliter(s) Inj 07/17/2018 07/17/2018 Inactive Lexapro 20 mg tablet RxNorm: 430195 1 TABLET(S) PO DAILY 07/15/2018 11/11/2018 Active potassium chloride ER 10 mEq tablet,extended release RxNorm: 319284 1 Tablet(s) PO daily as needed to take when you take the lasix 07/04/2018 08/02/2018 Inactive Lasix 20 mg tablet RxNorm: 280330 1 Tablet(s) PO daily as needed edema 07/04/2018 08/02/2018 Inactive Cymbalta 30 mg capsule,delayed release RxNorm: 228015 1 CAPSULE(S) PO DAILY TO BE TAKEN WITH 60MG TO=90MG 07/01/2018 07/14/2018 Inactive hydrochlorothiazide 25 mg tablet RxNorm: 033187 1 TABLET(S) PO DAILY 06/27/2018 09/18/2018 Inactive Remeron 15 mg tablet RxNorm: 741401 1/2 Tablet(s) PO QHS 06/20/2018 07/16/2018 Inactive Lasix 20 mg tablet RxNorm: 139441 1 Tablet(s) PO daily 06/19/2018 06/21/2018 Inactive potassium chloride ER 10 mEq tablet,extended release RxNorm: 860614 1 Tablet(s) PO daily 06/19/2018 07/03/2018 Inactive Lexapro 20 mg tablet RxNorm: 201494 1 Tablet(s) PO daily 06/19/2018 07/14/2018 Inactive gabapentin 300 mg capsule RxNorm: 233263 1 CAPSULE(S) PO TID 06/14/2018 08/12/2018 Inactive Ambien 10 mg tablet RxNorm: 617873 1 Tablet(s) PO QHS as needed insomnia 06/10/2018 09/07/2018 Inactive Cymbalta 30 mg capsule,delayed release RxNorm: 242214 1 Capsule(s) PO daily 06/03/2018 06/02/2018 Inactive Cymbalta 30 mg capsule,delayed release RxNorm: 541821 1 Capsule(s) PO daily to be taken with 60mg to=90mg 06/03/2018 06/30/2018 Inactive Protonix 40 mg tablet,delayed release RxNorm: 066588 1 TABLET(S) PO DAILY 05/20/2018 08/11/2018 Inactive gabapentin 300 mg capsule RxNorm: 144671 1 CAPSULE(S) PO TID 05/15/2018 06/13/2018 Inactive Protonix 40 mg tablet,delayed release RxNorm: 125494 1 Tablet(s) PO daily 04/24/2018 05/19/2018 Inactive Zorvolex 35 mg capsule RxNorm: 5609575 TAKE 1 CAPSULE BY MOUTH THREE (3) TIMES DAILY 04/22/2018 08/01/2018 Inactive hydrochlorothiazide 25 mg tablet RxNorm: 064081 1 TABLET(S) PO DAILY 04/08/2018 06/26/2018 Inactive Zorvolex 35 mg capsule RxNorm: 5444246 TAKE 1 CAPSULE BY MOUTH THREE (3) TIMES DAILY 03/27/2018 04/21/2018 Inactive gabapentin 300 mg capsule RxNorm: 779275 1 CAPSULE(S) PO TID 03/25/2018 04/14/2018 Inactive hydrochlorothiazide 25 mg tablet RxNorm: 431532 1 Tablet(s) PO daily 03/14/2018 04/07/2018 Inactive Victoza 2-Marek 0.6 mg/0.1 mL (18 mg/3 mL) subcutaneous pen injector RxNorm: 517366 Milligram(s) INJECT 1.8 MG SUB-Q ONCE DAILY 02/27/2018 08/20/2019 Active qty sufficient atorvastatin 20 mg tablet RxNorm: 173405 1 Tablet(s) PO daily 02/27/2018 05/22/2019 Active Cymbalta 60 mg capsule,delayed release RxNorm: 835281 TAKE 1 CAPSULE BY MOUTH DAILY 02/27/2018 02/26/2018 Inactive Cymbalta 60 mg capsule,delayed release RxNorm: 175822 1 Capsule(s) PO daily TAKE 1 CAPSULE BY MOUTH DAILY 02/27/2018 07/14/2018 Inactive gabapentin 300 mg capsule RxNorm: 760422 1 Capsule(s) PO TID 02/27/2018 03/24/2018 Inactive Xanax 1 mg tablet RxNorm: 883470 1-2 Tablet(s) PO QHS as needed insomnia 02/27/2018 05/27/2018 Inactive meloxicam 7.5 mg tablet RxNorm: 365594 1 Tablet(s) PO daily 1 TABLET(S) PO DAILY 02/27/2018 04/14/2018 Inactive Ambien 10 mg tablet RxNorm: 664500 1 Tablet(s) PO QHS as needed insomnia 02/27/2018 05/25/2018 Inactive atorvastatin 20 mg tablet RxNorm: 194922 1 Tablet(s) PO daily 02/05/2018 02/26/2018 Inactive atorvastatin 20 mg tablet RxNorm: 860605 1 Tablet(s) PO daily 02/05/2018 02/04/2018 Inactive meloxicam 7.5 mg tablet RxNorm: 408535 1 TABLET(S) PO DAILY 02/01/2018 02/26/2018 Inactive oxycodone 15 mg tablet RxNorm: 5540252 1 Tablet(s) PO QID as needed 01/07/2018 02/19/2018 Inactive lactulose 20 gram/30 mL oral solution RxNorm: 710836 15-30 Milliliter(s) PO BID as needed 12/31/2017 02/20/2018 Inactive meloxicam 7.5 mg tablet RxNorm: 354233 1 TABLET(S) PO DAILY 12/13/2017 01/31/2018 Inactive Zorvolex 35 mg capsule RxNorm: 1911627 1 Capsule(s) PO TID 12/13/2017 02/20/2018 Inactive Ambien 10 mg tablet RxNorm: 321246 1 Tablet(s) PO QHS as needed insomnia 12/04/2017 02/26/2018 Inactive oxycodone 15 mg tablet RxNorm: 7885760 1 Tablet(s) PO QID as needed 12/04/2017 01/06/2018 Inactive prednisone 20 mg tablet RxNorm: 540737 2 Tablet(s) PO daily 12/04/2017 12/08/2017 Inactive Victoza 2-Marek 0.6 mg/0.1 mL (18 mg/3 mL) subcutaneous pen injector RxNorm: 339452 Milligram(s) INJECT 1.8 MG SUB-Q ONCE DAILY 11/20/2017 02/26/2018 Inactive meloxicam 7.5 mg tablet RxNorm: 515798 1 Tablet(s) PO daily 11/20/2017 12/12/2017 Inactive phentermine 37.5 mg tablet RxNorm: 757215 1 Tablet(s) PO daily 11/20/2017 12/19/2017 Inactive Ambien 10 mg tablet RxNorm: 947814 1 Tablet(s) PO QHS as needed insomnia 11/20/2017 12/18/2017 Inactive Xanax 1 mg tablet RxNorm: 727942 1.5 Tablet(s) PO QHS as needed insomnia 11/20/2017 02/26/2018 Inactive hydrocodone 7.5 mg-acetaminophen 325 mg tablet RxNorm: 253815 1 Tablet(s) PO TID as needed 11/16/2017 01/06/2018 Inactive Cymbalta 60 mg capsule,delayed release RxNorm: 461990 TAKE 1 CAPSULE BY MOUTH DAILY 11/02/2017 02/26/2018 Inactive Xanax 1 mg tablet RxNorm: 866812 1 Tablet(s) PO BID PRN as needed anxiety 10/04/2017 11/19/2017 Inactive Victoza 2-Marek 0.6 mg/0.1 mL (18 mg/3 mL) subcutaneous pen injector RxNorm: 911473 INJECT 1.8 MG SUB-Q ONCE DAILY 10/04/2017 11/19/2017 Inactive hydrocodone 7.5 mg-acetaminophen 325 mg tablet RxNorm: 592430 1 Tablet(s) PO TID as needed 09/17/2017 11/15/2017 Inactive hydrocodone 7.5 mg-acetaminophen 325 mg tablet RxNorm: 764140 1 Tablet(s) PO TID as needed 09/10/2017 09/16/2017 Inactive prednisone 10 mg tablet RxNorm: 352312 Tablet(s) PO 09/10/2017 11/13/2017 Inactive 6,5,4,3,2,1 Zorvolex 35 mg capsule RxNorm: 9692205 1 Capsule(s) PO TID 09/07/2017 11/13/2017 Inactive Ambien 10 mg tablet RxNorm: 840166 1 Tablet(s) PO QHS as needed insomnia 08/29/2017 11/19/2017 Inactive Zorvolex 35 mg capsule RxNorm: 0274488 1 Capsule(s) PO TID 08/28/2017 09/06/2017 Inactive Zorvolex 35 mg capsule RxNorm: 7724768 1 Capsule(s) PO TID 08/13/2017 08/27/2017 Inactive Zorvolex 35 mg capsule RxNorm: 4015018 1 Capsule(s) PO TID 08/13/2017 08/12/2017 Inactive prednisone 20 mg tablet RxNorm: 078475 2 Tablet(s) PO daily 07/31/2017 08/04/2017 Inactive hydrocodone 7.5 mg-acetaminophen 325 mg tablet RxNorm: 530354 1 Tablet(s) PO TID as needed 07/31/2017 09/09/2017 Inactive Zorvolex 35 mg capsule RxNorm: 8705322 1 Capsule(s) PO TID as needed 07/31/2017 11/13/2017 Inactive ceftriaxone 500 mg solution for injection RxNorm: 2377750 1 Milliliter(s) Inj 06/27/2017 06/27/2017 Inactive Keflex 500 mg capsule RxNorm: 621875 1 Capsule(s) PO TID 06/27/2017 07/03/2017 Inactive Ambien 10 mg tablet RxNorm: 119138 1 Tablet(s) PO daily 05/29/2017 08/25/2017 Inactive tramadol 50 mg tablet RxNorm: 824271 1 Tablet(s) PO TID as needed 05/29/2017 07/27/2017 Inactive Xanax 1 mg tablet RxNorm: 835694 1 Tablet(s) PO BID PRN as needed anxiety 05/21/2017 10/03/2017 Inactive alprazolam 1 mg tablet RxNorm: 824081 1 Tablet(s) PO BID as needed 05/21/2017 06/19/2017 Inactive Celebrex 200 mg capsule RxNorm: 866288 1 CAPSULE(S) PO BID 05/04/2017 11/05/2017 Inactive prednisone 20 mg tablet RxNorm: 530027 2 Tablet(s) PO daily 04/20/2017 04/24/2017 Inactive Ambien 10 mg tablet RxNorm: 601175 Tablet(s) PO 04/20/2017 05/28/2017 Inactive hydrocodone 5 mg-acetaminophen 325 mg tablet RxNorm: 563631 1 Tablet(s) PO QID as needed 04/20/2017 08/01/2017 Inactive Cymbalta 60 mg capsule,delayed release RxNorm: 940130 1 Capsule(s) PO daily 04/20/2017 02/26/2018 Inactive Victoza 2-Marek 0.6 mg/0.1 mL (18 mg/3 mL) subcutaneous pen injector RxNorm: 924115 INJECT 1.8 MG SUB-Q ONCE DAILY 03/26/2017 09/21/2017 Inactive diazepam 2 mg tablet RxNorm: 025856 1 Tablet(s) PO QHS as needed insomnia 01/28/2017 05/07/2017 Inactive Victoza 2-Marek 0.6 mg/0.1 mL (18 mg/3 mL) subcutaneous pen injector RxNorm: 118954 1.8 Milligram(s) SQ daily 01/26/2017 03/25/2017 Inactive dispense quantity sufficient Tussionex Pennkinetic ER 10 mg-8 mg/5 mL suspension,extended release RxNorm: 6088459 5 Milliliter(s) PO BID 01/11/2017 01/15/2017 Inactive Xanax 1 mg tablet RxNorm: 181279 1 Tablet(s) PO BID PRN as needed anxiety 01/11/2017 05/20/2017 Inactive Zithromax Z-Marek 250 mg tablet RxNorm: 115056 1 Tablet(s) PO UD 01/11/2017 01/15/2017 Inactive zpack albuterol sulfate 2.5 mg/3 mL (0.083 %) solution for nebulization RxNorm: 417774 3 Milliliter(s) INH UD 01/11/2017 11/13/2017 Inactive prednisone 20 mg tablet RxNorm: 416803 2 Tablet(s) PO daily 01/11/2017 01/15/2017 Inactive Kenalog 40 mg/mL suspension for injection RxNorm: 6947307 1.5 Milliliter(s) Inj 01/11/2017 01/11/2017 Inactive Celebrex 200 mg capsule RxNorm: 000886 1 Capsule(s) PO BID 11/30/2016 02/27/2017 Inactive Ambien 5 mg tablet RxNorm: 003843 1 Tablet(s) PO HS PRN 11/30/2016 08/07/2017 Inactive trazodone 50 mg tablet RxNorm: 090065 1/2 to 1 Tablet(s) PO QHS 10/13/2016 10/12/2016 Inactive trazodone 50 mg tablet RxNorm: 465160 1/2 to 1 Tablet(s) PO QHS 10/13/2016 11/29/2016 Inactive Belsomra 10 mg tablet RxNorm: 9152506 1 Tablet(s) PO QHS 09/28/2016 11/29/2016 Inactive may increase to 20mg if 10mg not effective Cymbalta 60 mg capsule,delayed release RxNorm: 559596 1 Capsule(s) PO daily 08/24/2016 03/21/2017 Inactive Xanax 1 mg tablet RxNorm: 078959 1 Tablet(s) PO BID PRN as needed anxiety 08/24/2016 01/10/2017 Inactive Victoza 2-Marek 0.6 mg/0.1 mL (18 mg/3 mL) subcutaneous pen injector RxNorm: 471511 Milligram(s) SQ 08/24/2016 08/23/2016 Inactive Victoza 2-Marek 0.6 mg/0.1 mL (18 mg/3 mL) subcutaneous pen injector RxNorm: 127799 1.8 Milligram(s) SQ 08/24/2016 01/25/2017 Inactive Vitamin D2 50,000 unit capsule RxNorm: 624580 1 Capsule(s) PO QW 07/13/2016 10/10/2016 Inactive Cymbalta 30 mg capsule,delayed release RxNorm: 370196 1 Capsule(s) PO daily 07/13/2016 08/23/2016 Inactive Belviq XR 20 mg tablet,extended release RxNorm: 6345661 1 Tablet(s) PO daily 05/30/2016 05/29/2016 Inactive prednisone 20 mg tablet RxNorm: 814842 2 Tablet(s) PO daily 05/30/2016 06/03/2016 Inactive prednisone 20 mg tablet RxNorm: 369971 2 Tablet(s) PO daily 05/30/2016 05/29/2016 Inactive Belviq XR 20 mg tablet,extended release RxNorm: 5883448 1 Tablet(s) PO daily 05/30/2016 06/28/2016 Inactive cyclobenzaprine 5 mg tablet RxNorm: 778685 1-2 Tablet(s) PO TID as needed 05/19/2016 05/23/2016 Inactive metoprolol succinate ER 25 mg tablet,extended release 24 hr RxNorm: 601796 1 Tablet(s) PO QPM 04/10/2016 04/13/2016 Inactive metoprolol succinate ER 25 mg tablet,extended release 24 hr RxNorm: 469887 1 Tablet(s) PO QPM 04/10/2016 04/09/2016 Inactive escitalopram 10 mg tablet RxNorm: 349510 1 Tablet(s) PO daily 03/16/2016 07/12/2016 Inactive estradiol 1 mg tablet RxNorm: 415716 1 Tablet(s) PO every other day 03/16/2016 05/15/2016 Inactive Kenalog 40 mg/mL suspension for injection RxNorm: 8066529 Milliliter(s) Inj 02/28/2016 02/28/2016 Inactive Zithromax Z-Marek 250 mg tablet RxNorm: 220011 1 Tablet(s) PO UD 02/28/2016 03/03/2016 Inactive zpack Lexapro 10 mg tablet RxNorm: 712114 1 Tablet(s) PO daily 09/27/2015 02/27/2016 Inactive Lexapro 10 mg tablet RxNorm: 611650 1 Tablet(s) PO daily 08/30/2015 09/26/2015 Inactive Vimovo 500 mg-20 mg tablet,immediate and delay release RxNorm: 151022 1 Tablet(s) PO BID as needed for pain 08/30/2015 09/26/2015 Inactive azithromycin 250 mg tablet RxNorm: 002761 1 Tablet(s) PO UD 2 pills on day #1, then one pill daily x 4 days 07/15/2015 01/12/2016 Inactive hydrocodone 10 mg-acetaminophen 325 mg tablet RxNorm: 735240 1 Tablet(s) PO QID 06/16/2015 01/12/2016 Inactive pramipexole 0.5 mg tablet RxNorm: 863035 1 Tablet(s) PO QPM 06/16/2015 07/14/2015 Inactive Celebrex 200 mg capsule RxNorm: 990012 1 Capsule(s) PO daily 05/03/2015 05/02/2015 Inactive Celebrex 200 mg capsule RxNorm: 256122 1 Capsule(s) PO daily 05/03/2015 01/12/2016 Inactive hydrocodone 7.5 mg-acetaminophen 325 mg tablet RxNorm: 453531 1 Tablet(s) PO Q6 PRN 05/03/2015 06/15/2015 Inactive Mobic 15 mg tablet RxNorm: 225748 1 Tablet(s) PO daily 04/02/2015 05/02/2015 Inactive hydrocodone 7.5 mg-acetaminophen 325 mg tablet RxNorm: 387754 1 Tablet(s) PO Q6 PRN 04/02/2015 05/02/2015 Inactive hydrocodone 5 mg-acetaminophen 325 mg tablet RxNorm: 998287 1 Tablet(s) PO Q6 as needed 12/11/2014 04/01/2015 Inactive Pennsaid 1.5 % topical drops RxNorm: 752763 40 Drop(s) TOP QID as needed 12/07/2014 02/04/2015 Inactive Apply 40 drops to each knee joint 4 times per day as needed for osteoarthritis pain estradiol 1 mg tablet RxNorm: 673603 1 Tablet(s) PO QHS No Start Date 03/15/2016 Inactive Xanax 0.5 mg tablet RxNorm: 790665 1 Tablet(s) PO Q6 as needed anxiety No Start Date 08/23/2016 Inactive Tylenol Extra Strength 500 mg tablet RxNorm: 593747 3 Tablet(s) PO BID after breakfast and after lunch No Start Date 01/12/2016 Inactive lactulose 20 gram/30 mL oral solution RxNorm: 864579 15-30 Milliliter(s) PO BID as needed No Start Date 12/30/2017 Inactive hydrocodone 5 mg-acetaminophen 325 mg tablet RxNorm: 673524 1 Tablet(s) PO Q6 as needed No Start Date 12/10/2014 Inactive Phenergan-Codeine syrup RxNorm: 5-10 Milliliter(s) PO QID as needed No Start Date 11/13/2017 Inactive ibuprofen 200 mg capsule RxNorm: 703421 4 Capsule(s) PO QID as needed No Start Date 04/01/2015 Inactive Medication Administered Medication Codes Instructions Start Date Status Kenalog 40 mg/mL suspension for injection RxNorm: 0870619 Milliliter 07/17/2018 No longer Active ceftriaxone 500 mg solution for injection RxNorm: 7520316 1Milliliter 06/27/2017 No longer Active Kenalog 40 mg/mL suspension for injection RxNorm: 5410880 1.5Milliliter 01/11/2017 No longer Active Kenalog 40 mg/mL suspension for injection RxNorm: 5152034 Milliliter 02/28/2016 No longer Active Immunizations Vaccine [...] sent to ref lab 08/27/2018 Influenza A+B Xih774 Influ A+B Pos Influenza A 07/17/2018 %Hba1C Gsp610 % HbA1c 65530- 6 6.7 % 11/20/2017 %Hba1C Uph694 Gluc Ave 146 mg/dL 11/20/2017 Free T4 Fyc360 FREE T4 0.76 ng/dL 05/21/2017 Tsh Ord6 hTSH II 1.27 uIU/mL 05/21/2017 Comp Metabolic Dzg393 NA 140 mEq/L 05/21/2017 Comp Metabolic Jhs329 K 3.9 mEq/L 05/21/2017 Comp Metabolic Jqm288 CL 101 mEq/L 05/21/2017 Comp Metabolic Ujs301 CO2 28.0 mEq/L 05/21/2017 Comp Metabolic Jgg734 ANION GAP 15 05/21/2017 Comp Metabolic Dud049 GLUCOSE 155 mg/dL 05/21/2017 Comp Metabolic Nue699 Creat 0.7 mg/dL 05/21/2017 Comp Metabolic Jpr731 eGFR 87 ml/min/1.73m2 05/21/2017 Comp Metabolic Wej531 BUN 16 mg/dL 05/21/2017 Comp Metabolic Qcx089 B/C Ratio 21.6 Ratio 05/21/2017 Comp Metabolic Xmw234 CALCIUM 9.4 mg/dL 05/21/2017 Comp Metabolic Nuh433 ALK PHOS 132 U/L 05/21/2017 Comp Metabolic Fyx583 AST(SGOT) 16 U/L 05/21/2017 Comp Metabolic Fwf411 ALT(SGPT) 20 U/L 05/21/2017 Comp Metabolic Mwu065 BILI T 0.4 mg/dL 05/21/2017 Comp Metabolic Srj124 ALBUMIN 4.0 g/dL 05/21/2017 Comp Metabolic Kfm277 TPRO 6.7 g/dL 05/21/2017 Comp Metabolic Jlx147 GLOB 2.7 g/dL 05/21/2017 Comp Metabolic Gey362 A/G Ratio 1.5 Ratio 05/21/2017 Comp Metabolic Crr316 Osmo 284 mOsmo 05/21/2017 Cbc With Differential [...] 28.9 pg 05/21/2017 Cbc With Differential Ord2 [place]% 5.5 % 05/21/2017 Cbc With Differential Ord2 [...] 2.65 K/ul 05/21/2017 Cbc With Differential Ord2 [place] ABS# 0.8 K/ul 05/21/2017 Cbc With Differential Ord2 Eos ABS# 0.1 K/ul 05/21/2017 Cbc With Differential Ord2 Baso ABS# 0.0 K/ul 05/21/2017 Estrogens Total 698440 ESTROGENS, TOTAL 54 pg/mL 05/24/2016 Magnesium Ord90 Mag 1.8 mg/dL 05/19/2016 Tsh Ord6 hTSH II 1.56 uIU/mL 05/19/2016 Progesterone Prog 0.03 ng/mL 05/19/2016 Comp Metabolic Peo618 NA 136 mEq/L 05/19/2016 Comp Metabolic Vdx175 K 4.3 mEq/L 05/19/2016 Comp Metabolic Ymn525 CL 100 mEq/L 05/19/2016 Comp Metabolic Kmh143 CO2 28.0 mEq/L 05/19/2016 Comp Metabolic Doc614 ANION GAP 12 05/19/2016 Comp Metabolic Ifu665 GLUCOSE 138 mg/dL 05/19/2016 Comp Metabolic Uxh277 Creat 0.7 mg/dL 05/19/2016 Comp Metabolic Mse069 eGFR 89 ml/min/1.73m2 05/19/2016 Comp Metabolic Ltv906 BUN 15 mg/dL 05/19/2016 Comp Metabolic Umu876 B/C Ratio 20.5 Ratio 05/19/2016 Comp Metabolic Dvg038 CALCIUM 9.7 mg/dL 05/19/2016 Comp Metabolic Bqd790 ALK PHOS 106 U/L 05/19/2016 Comp Metabolic Bhk748 AST(SGOT) 21 U/L 05/19/2016 Comp Metabolic Izg244 ALT(SGPT) 24 U/L 05/19/2016 Comp Metabolic Txk871 BILI T 0.4 mg/dL 05/19/2016 Comp Metabolic Tom707 ALBUMIN 4.1 g/dL 05/19/2016 Comp Metabolic Lts686 TPRO 7.1 g/dL 05/19/2016 Comp Metabolic Ele787 GLOB 3.0 g/dL 05/19/2016 Comp Metabolic Hnb433 A/G Ratio 1.4 Ratio 05/19/2016 Comp Metabolic Aed727 Osmo 275 mOsmo 05/19/2016 Cbc With Differential [...] 28.5 pg 05/19/2016 Cbc With Differential Ord2 [place]% 6.5 % 05/19/2016 Cbc With Differential Ord2 [...] 2.33 K/ul 05/19/2016 Cbc With Differential Ord2 [place] ABS# 0.6 K/ul 05/19/2016 Cbc With Differential Ord2 Eos ABS# 0.1 K/ul 05/19/2016 Cbc With Differential Ord2 Baso ABS# 0.0 K/ul 05/19/2016 C RAP A SC [id number] Strep A Negative 02/28/2016 Tsh Ord6 hTSH [...] 26.2 pg 08/16/2015 Cbc With Differential Ord2 [place]% 7.1 % 08/16/2015 Cbc With Differential Ord2 [...] 2.32 K/ul 08/16/2015 Cbc With Differential Ord2 [place] ABS# 0.6 K/ul 08/16/2015 Cbc With Differential Ord2 Eos ABS# 0.1 K/ul 08/16/2015 Cbc With Differential Ord2 Baso ABS# 0.0 K/ul 08/16/2015 Cbc With Differential Ord2 New Analyzer Notice Please note new ref ranges starting 05-26-2015 due to implemntation of new five part differential hematolgy analyzer. 08/16/2015 Comp Metabolic Ogr943 NA 132 mEq/L 08/16/2015 Comp Metabolic Qna717 K 3.6 mEq/L 08/16/2015 Comp Metabolic Yrd761 CL 99 mEq/L 08/16/2015 Comp Metabolic Hjt206 CO2 23.0 mEq/L 08/16/2015 Comp Metabolic Ixd751 ANION GAP 14 08/16/2015 Comp Metabolic Oys392 GLUCOSE 101 mg/dL 08/16/2015 Comp Metabolic Qmm092 Creat 0.7 mg/dL 08/16/2015 Comp Metabolic Tfw592 eGFR 100 ml/min/1.73m2 08/16/2015 Comp Metabolic Oai898 BUN 10 mg/dL 08/16/2015 Comp Metabolic Ssv029 B/C Ratio 15.2 Ratio 08/16/2015 Comp Metabolic Dij111 CALCIUM 9.3 mg/dL 08/16/2015 Comp Metabolic Yrf476 ALK PHOS 100 U/L 08/16/2015 Comp Metabolic Jpw377 AST(SGOT) 14 U/L 08/16/2015 Comp Metabolic Lbx696 ALT(SGPT) 11 U/L 08/16/2015 Comp Metabolic Jok871 BILI T 0.3 mg/dL 08/16/2015 Comp Metabolic Gzv813 ALBUMIN 3.9 g/dL 08/16/2015 Comp Metabolic Yxi419 TPRO 7.1 g/dL 08/16/2015 Comp Metabolic Akn353 GLOB 3.2 g/dL 08/16/2015 Comp Metabolic Uhf355 A/G Ratio 1.2 Ratio 08/16/2015 Comp Metabolic Vvl316 Osmo 264 mOsmo 08/16/2015 Lipid Ord30 CHOL 209 mg/dL 12/03/2014 Lipid Ord30 HDL 42.0 mg/dl 12/03/2014 Lipid Ord30 TRIG 219 mg/dL 12/03/2014 Lipid Ord30 LDL 123 mg/dL 12/03/2014 Lipid Ord30 C/HDL 5.0 Ratio 12/03/2014 Comp Metabolic Tjm959 NA 132 mEq/L 12/03/2014 Comp Metabolic Pbk774 K 4.0 mEq/L 12/03/2014 Comp Metabolic Hwk882 CL 101 mEq/L 12/03/2014 Comp Metabolic Wuz563 CO2 22.0 mEq/L 12/03/2014 Comp Metabolic Nca501 ANION GAP 13 12/03/2014 Comp Metabolic Epa376 GLUCOSE 123 mg/dL 12/03/2014 Comp Metabolic Mcd071 Creat 0.7 mg/dL 12/03/2014 Comp Metabolic Ohd077 eGFR 97 ml/min/1.73m2 12/03/2014 Comp Metabolic Vbp951 BUN 10 mg/dL 12/03/2014 Comp Metabolic Vlb614 B/C Ratio 14.7 Ratio 12/03/2014 Comp Metabolic Kwf331 CALCIUM 9.2 mg/dL 12/03/2014 Comp Metabolic Cxz350 ALK PHOS 88 U/L 12/03/2014 Comp Metabolic Clg246 AST(SGOT) 18 U/L 12/03/2014 Comp Metabolic Ntw949 ALT(SGPT) 17 U/L 12/03/2014 Comp Metabolic Rnj138 BILI T 0.5 mg/dL 12/03/2014 Comp Metabolic Jgu998 ALBUMIN 3.9 g/dL 12/03/2014 Comp Metabolic Ftu549 TPRO 6.8 g/dL 12/03/2014 Comp Metabolic Khs030 GLOB 2.9 g/dL 12/03/2014 Comp Metabolic Gaq959 A/G Ratio 1.3 Ratio 12/03/2014 Comp Metabolic Fbk200 Osmo 265 mOsmo 12/03/2014 Tsh Ord6 hTSH II 1.13 uIU/mL 12/03/2014 D-Dimer [id number] D-DIMER 168 NG/ML 12/03/2014 D-Dimer [id number] COMMENT 12/03/2014 Cbc With Differential Ord2 WBC [...] Procedure Codes Date THER/PROPH/DIAG INJ SC/IM CPT-4: 65434 07/17/2018 TRIAMCINOLONE ACET INJ NOS CPT-4: J3301 07/17/2018 THER/PROPH/DIAG INJ SC/IM CPT-4: 81655 06/27/2017 ROCEPHIN, PER 250 MG CPT- 4: J0696 06/27/2017 IMMUNIZATION ADMIN CPT- 4: 32173 03/16/2017 FLU VAC NO PRSV 4 FLETCHER 3 YRS+ CPT-4: 19927 03/16/2017 Pneumococcal Polysaccharide Vaccine, 23-Valent, Ad CPT-4: 71975 03/16/2017 IMMUNIZATION ADMIN EACH ADD CPT-4: 18609 03/16/2017 TRIAMCINOLONE ACET INJ NOS CPT-4: J3301 01/11/2017 TRIAMCINOLONE ACET INJ NOS CPT-4: J3301 02/28/2016 Vital Signs Date Vital 10/03/2018 Blood Pressure 1: 122/68 Code: 8480-6 Heart Rate 1: 70 bpm Height: 5'6" SpO2: 97% Weight: 09/23/2018 Blood Pressure 1: 130/78 Code: 8480-6 BMI: 41.8 Code: 69237-4 Heart Rate 1: 72 bpm Height: 5'6" SpO2: 96% Weight: 259 lbs 08/26/2018 Blood Pressure 1: 126/72 Code: 8480-6 Heart Rate 1: 68 bpm Height: 5'6" SpO2: 94% Weight: 08/12/2018 Blood Pressure 1: 124/68 Code: 8480-6 BMI: 38.4 Code: 40161-7 Heart Rate 1: 79 bpm Height: 5'6" SpO2: 94% Weight: 238 lbs 07/17/2018 Blood Pressure 1: 126/72 Code: 8480-6 BMI: 38.6 Code: 45417-2 Heart Rate 1: 85 bpm Height: 5'6" SpO2: 95% Temperature: 36.9 (C) / 98.4 (F) Weight: 239 lbs 07/04/2018 Blood Pressure 1: 132/76 Code: 8480-6 Heart Rate 1: 80 bpm Height: SpO2: 97% Weight: 06/19/2018 Blood Pressure 1: 12474 Code: 8480-6 BMI: 38.6 Code: 71027-8 Heart Rate 1: 85 bpm Height: 5'6" SpO2: 95% Weight: 239 lbs 04/24/2018 Blood Pressure 1: 12874 Code: 8480-6 BMI: 37.8 Code: 64367-3 Heart Rate 1: 107 bpm Height: 5'6" SpO2: 98% Weight: 234 lbs 04/17/2018 Blood Pressure 1: 120/64 Code: 8480-6 BMI: 37.8 Code: 85304-0 Heart Rate 1: 84 bpm Height: 5'6" SpO2: 96% Weight: 234 lbs 03/14/2018 Blood Pressure 1: 140/82 Code: 8480-6 BMI: 37.8 Code: 85457-4 Heart Rate 1: 85 bpm Height: 5'6" SpO2: 98% Weight: 234 lbs 02/27/2018 Blood Pressure 1: 142/68 Code: 8480-6 BMI: 36.5 Code: 64629-1 Heart Rate 1: 84 bpm Height: 5'6" SpO2: 97% Weight: 226 lbs 12/19/2017 Blood Pressure 1: 130/86 Code: 8480-6 BMI: 35.7 Code: 91458-3 Heart Rate 1: 94 bpm Height: 5'6" Weight: 221 lbs 12/04/2017 Blood Pressure 1: 138/78 Code: 8480-6 BMI: 36.6 Code: 18312-2 Heart Rate 1: 94 bpm Height: 5'6" SpO2: 98% Weight: 227 lbs 11/20/2017 Weight: 233 lbs 09/10/2017 Blood Pressure 1: 132/86 Code: 8480-6 Heart Rate 1: 86 bpm Height: Weight: 08/14/2017 Blood Pressure 1: 120/74 Code: 8480-6 BMI: 33.9 Code: 99610-4 Heart Rate 1: 92 bpm Height: 5'6" SpO2: 94% Weight: 210 lbs 07/31/2017 Blood Pressure 1: 140/80 Code: 8480-6 BMI: 33.9 Code: 89244-0 Heart Rate 1: 96 bpm Height: 5'6" SpO2: 97% Weight: 210 lbs 06/27/2017 Blood Pressure 1: 128/80 Code: 8480-6 BMI: 33.9 Code: 25425-8 Heart Rate 1: 85 bpm Height: 5'6" [...] 1: 126/74 Code: 8480-6 BMI: 39.9 Code: 05085-6 Heart Rate 1: 79 bpm Height: 5'6" SpO2: 97% Weight: 247 lbs 01/26/2017 Blood Pressure 1: 132/74 Code: 8480-6 BMI: 37.8 Code: 88919-5 Heart Rate 1: 74 bpm Height: 5'6" SpO2: 97% Weight: 234 lbs 01/11/2017 Blood Pressure 1: 118/68 Code: 8480-6 BMI: 38.7 Code: 66261-9 Heart Rate 1: 91 bpm Height: 5'6" SpO2: 96% Weight: 240 lbs 11/30/2016 Blood Pressure 1: 132/76 Code: 8480-6 BMI: 38.3 Code: 03498-1 Heart Rate 1: 71 bpm Height: 5'6" SpO2: 92% Weight: 237 lbs 09/28/2016 Blood Pressure 1: 122/72 Code: 8480-6 BMI: 39.1 Code: 57430-8 Heart Rate 1: 88 bpm Height: 5'6" SpO2: 94% Weight: 242 lbs 08/24/2016 Blood Pressure 1: 130/87 Code: 8480-6 BMI: 41.5 Code: 90898-9 Heart Rate 1: 95 bpm Height: 5'6" Respiratory Rate: 16 bpm SpO2: 98% Temperature: 36.9 (C) / 98.5 (F) Weight: 257 lbs 07/13/2016 Blood Pressure 1: 132/84 Code: 8480-6 BMI: 42.0 Code: 37792-6 Heart Rate 1: 73 bpm Height: 5'6" SpO2: 97% Weight: 260 lbs 05/19/2016 Blood Pressure 1: 138/76 Code: 8480-6 BMI: 40.8 Code: 64197-5 Heart Rate 1: 80 bpm Height: 5'6" SpO2: 98% Weight: 253 lbs 03/16/2016 Blood Pressure 1: 122/70 Code: 8480-6 BMI: 40.4 Code: 75894-1 Heart Rate 1: 72 bpm Height: 5'6" SpO2: 98% Weight: 250 lbs 02/28/2016 Blood Pressure 1: 136/86 Code: 8480-6 BMI: 40.2 Code: 87379-6 Heart Rate 1: 87 bpm Height: 5'6" SpO2: 96% Temperature: 36.3 (C) / 97.3 (F) Weight: 249 lbs 01/13/2016 Blood Pressure 1: 120/76 Code: 8480-6 BMI: 40.4 Code: 75121-4 Heart Rate 1: 68 bpm Height: 5'6" SpO2: 97% Weight: 250 lbs 09/27/2015 Blood Pressure 1: 112/70 Code: 8480-6 BMI: 38.4 Code: 37994-1 Heart Rate 1: 76 bpm Height: 5'6" SpO2: 98% Weight: 238 lbs 08/30/2015 Blood Pressure 1: 144/82 Code: 8480-6 BMI: 39.5 Code: 14624-6 Heart Rate 1: 82 bpm Height: 5'6" SpO2: 97% Weight: 245 lbs 08/16/2015 Blood Pressure 1: 140/72 Code: 8480-6 BMI: 38.9 Code: 04443-9 Heart Rate 1: 72 bpm Height: 5'6" SpO2: 97% Weight: 241 lbs 07/15/2015 Blood Pressure 1: 128/80 Code: 8480-6 BMI: 39.3 Code: 50300-2 Heart Rate 1: 86 bpm Height: 5'6" SpO2: 98% Weight: 243 lbs 8 oz 06/16/2015 Blood Pressure 1: 146/86 Code: 8480-6 BMI: 39.6 Code: 39986-6 Heart Rate 1: 76 bpm Height: 5'6" SpO2: 97% Weight: 245 lbs 8 oz 04/02/2015 Blood Pressure 1: 132/86 Code: 8480-6 BMI: 40.7 Code: 58872-2 Heart Rate 1: 94 bpm Height: 5'6" SpO2: 98% Weight: 252 lbs 12/02/2014 Blood Pressure 1: 122/90 Code: 8480-6 BMI: 41.6 Code: 39111-5 Heart Rate 1: 77 bpm Height: 5'6" [...] data Encounters Encounter Performer Location Codes Date 00911 EST. PATIENT, LEVEL IV Diagnosis: Essential (primary) hypertension[ICD10: I10] Diagnosis: Gastro-esophageal reflux disease without esophagitis[ICD10: K21.9] Petra Trejo MD, [facility] CPT-4: 81861 10/03/2018 46154 EST. PATIENT, LEVEL IV Diagnosis: Gastro-esophageal reflux disease without esophagitis[ICD10: K21.9] Diagnosis: Pain in left knee[ICD10: M25.562] Petra Trejo MD, [facility] CPT-4: 62736 09/23/2018 90129 EST. PATIENT, LEVEL III Diagnosis: Dysuria[ICD10: R30.0] Diagnosis: Other obesity due to excess calories[ICD10: E66.09] Diagnosis: Type 2 diabetes mellitus with hyperglycemia[ICD10: E11.65] Petra Trejo MD, [facility] CPT-4: 87665 08/26/2018 45767 EST. PATIENT, LEVEL III Diagnosis: Type 2 diabetes mellitus without complications[ICD10: E11.9] Petra Trejo MD, [facility] CPT-4: 56951 08/12/2018 58486 EST. PATIENT, LEVEL III Diagnosis: Acute laryngopharyngitis[ICD10: J06.0] Diagnosis: Cough[ICD10: R05] Diagnosis: Other allergic rhinitis[ICD10: J30.89] Diagnosis: Right upper quadrant pain[ICD10: R10.11] Petra Trejo MD, [facility] CPT-4: 74993 07/17/2018 40018 EST. PATIENT, LEVEL III Diagnosis: Generalized anxiety disorder[ICD10: F41.1] Diagnosis: Major depressive disorder, single episode, moderate[ICD10: F32.1] Petra Trejo MD, [facility] CPT-4: 37400 07/04/2018 09923 EST. PATIENT, LEVEL IV Diagnosis: Generalized anxiety disorder[ICD10: F41.1] Diagnosis: Major depressive disorder, single episode, moderate[ICD10: F32.1] Diagnosis: Other insomnia[ICD10: G47.09] Petra Trejo MD, [facility] CPT-4: 70324 06/19/2018 68240 EST. PATIENT, LEVEL IV Diagnosis: Right upper quadrant pain[ICD10: R10.11] Diagnosis: Other chest pain[ICD10: R07.89] Petra Trejo MD, [facility] CPT-4: 94204 04/24/2018 95950 EST. PATIENT, LEVEL III Diagnosis: Generalized anxiety disorder[ICD10: F41.1] Diagnosis: Major depressive disorder, recurrent, mild[ICD10: F33.0] Diagnosis: Essential (primary) hypertension[ICD10: I10] Diagnosis: Type 2 diabetes mellitus without complications[ICD10: E11.9] Petra Trejo MD, [facility] CPT-4: 71041 04/17/2018 16433 EST. PATIENT, LEVEL III Diagnosis: Localized edema[ICD10: R60.0] Diagnosis: Essential (primary) hypertension[ICD10: I10] Petra Trejo MD, [facility] CPT-4: 33961 03/14/2018 19206 EST. PATIENT, LEVEL III Diagnosis: Pain in left knee[ICD10: M25.562] Diagnosis: Other obesity due to excess calories[ICD10: E66.09] Diagnosis: Other insomnia[ICD10: G47.09] Diagnosis: Generalized anxiety disorder[ICD10: F41.1] Petra Trejo MD, [facility] CPT-4: 94095 02/27/2018 ([id number]) Miscellaneous no charge Diagnosis: Other obesity due to excess calories[ICD10: E66.09] Heidy Trejo MD, [facility] CPT-4: 01315 12/19/2017 28466 EST. PATIENT, LEVEL III Diagnosis: Pain in right foot[ICD10: M79.671] Diagnosis: Pain in right ankle and joints of right foot[ICD10: M25.571] Petra Trejo MD, [facility] CPT-4: 07371 12/04/2017 72155 EST. PATIENT, LEVEL III Diagnosis: Pain in left knee[ICD10: M25.562] Diagnosis: Type 2 diabetes mellitus without complications[ICD10: E11.9] Diagnosis: Other obesity due to excess calories[ICD10: E66.09] Petra Trejo MD, [facility] CPT-4: 30609 11/20/2017 97791 EST. PATIENT, LEVEL III Diagnosis: Pain in left knee[ICD10: M25.562] Petra Trejo MD, [facility] CPT-4: 72143 09/10/2017 47847 EST. PATIENT, LEVEL III Diagnosis: Encounter for follow-up examination after completed treatment for conditions other than malignant neoplasm[ICD10: Z09] Diagnosis: Pain in left knee[ICD10: M25.562] Petra Trejo MD, [facility] CPT-4: 95209 08/14/2017 45755 EST. PATIENT, LEVEL III Diagnosis: Pain in left knee[ICD10: M25.562] Petra Trejo MD, [facility] CPT-4: 65656 07/31/2017 98571 EST. PATIENT, LEVEL III Diagnosis: Acute laryngopharyngitis[ICD10: J06.0] Diagnosis: Other allergic rhinitis[ICD10: J30.89] Petra Trejo MD, [facility] CPT- 4: 11426 06/27/2017 39472 EST. PATIENT, LEVEL III Diagnosis: Ganglion, left hand[ICD10: M67.442] Diagnosis: Essential (primary) hypertension[ICD10: I10] Diagnosis: Generalized anxiety disorder[ICD10: F41.1] Diagnosis: Other insomnia[ICD10: G47.09] Petra Trejo MD, [facility] CPT-4: 62146 05/29/2017 93256 EST. PATIENT, LEVEL III Diagnosis: Essential (primary) hypertension[ICD10: I10] Diagnosis: Palpitations[ICD10: R00.2] Diagnosis: Generalized anxiety disorder[ICD10: F41.1] Petra Trejo MD, [facility] CPT-4: 85860 05/21/2017 75982 EST. PATIENT, LEVEL III Diagnosis: Pain in right foot[ICD10: M79.671] Petra Trejo MD, [facility] CPT-4: 48606 04/20/2017 55718 EST. PATIENT, LEVEL IV Diagnosis: Other insomnia[ICD10: G47.09] Diagnosis: Other skin changes[ICD10: R23.8] Petra Trejo MD, [facility] CPT-4: 45933 01/26/2017 87727 EST. PATIENT, LEVEL IV Diagnosis: Acute bronchitis due to other specified organisms[ICD10: J20.8] Petra Trejo MD, [facility] CPT-4: 18047 01/11/2017 ([id number]) 84601 EST. PATIENT, LEVEL IV Diagnosis: Essential (primary) hypertension[ICD10: I10] Diagnosis: Other insomnia[ICD10: G47.09] Diagnosis: Primary generalized (osteo)arthritis[ICD10: M15.0] Diagnosis: Other obesity due to excess calories[ICD10: E66.09] Claudette Trejo MD, [facility] CPT-4: 25960 11/30/2016 ([id number]) 17440 EST. PATIENT, LEVEL III Diagnosis: Other obesity due to excess calories[ICD10: E66.09] Diagnosis: Other insomnia[ICD10: G47.09] Diagnosis: Generalized anxiety disorder[ICD10: F41.1] Claudette Trejo MD, [facility] CPT-4: 76675 09/28/2016 ([id number]) 75176 EST. PATIENT, LEVEL IV Diagnosis: Generalized anxiety disorder[ICD10: F41.1] Diagnosis: Major depressive disorder, recurrent, mild[ICD10: F33.0] Diagnosis: Other obesity due to excess calories[ICD10: E66.09] Diagnosis: Other insomnia[ICD10: G47.09] Claudette Trejo MD, [facility] CPT-4: 17222 08/24/2016 ([id number]) 04713 EST. PATIENT, LEVEL III Diagnosis: Other obesity due to excess calories[ICD10: E66.09] Diagnosis: Major depressive disorder, recurrent, moderate[ICD10: F33.1] Diagnosis: Low back pain[ICD10: M54.5] Heidy Trejo MD, [facility] CPT-4: 16187 07/13/2016 37707 EST. PATIENT, LEVEL IV Diagnosis: Other muscle spasm[ICD10: M62.838] Diagnosis: Generalized anxiety disorder[ICD10: F41.1] Diagnosis: Major depressive disorder, recurrent, moderate[ICD10: F33.1] Diagnosis: Other insomnia[ICD10: G47.09] Petra Trejo MD, [facility] CPT-4: 05404 05/19/2016 ([id number]) 33355 EST. PATIENT, LEVEL III Diagnosis: Generalized anxiety disorder[ICD10: F41.1] Diagnosis: Major depressive disorder, recurrent, moderate[ICD10: F33.1] Heidy Trejo MD, [facility] CPT-4: 76984 03/16/2016 ([id number]) 68911 EST. PATIENT, LEVEL III Diagnosis: Streptococcal pharyngitis[ICD10: J02.0] Claudette Trejo MD, [facility] CPT-4: 75278 02/28/2016 ([id number]) 85849 EST. PATIENT, LEVEL III Diagnosis: Generalized anxiety disorder[ICD10: F41.1] Diagnosis: Other obesity due to excess calories[ICD10: E66.09] Heidy Trejo MD, [facility] CPT-4: 56367 01/13/2016 ([id number]) 74965 EST. PATIENT, LEVEL III Diagnosis: Generalized anxiety disorder[ICD10: F41.1] Diagnosis: Major depressive disorder, recurrent, unspecified[ICD10: F33.9] Heidy Trejo MD, [facility] CPT-4: 59640 09/27/2015 58823 EST. PATIENT, LEVEL IV Diagnosis: Chronic pain syndrome[ICD10: G89.4] Diagnosis: Other obesity due to excess calories[ICD10: E66.09] Diagnosis: Essential (primary) hypertension[ICD10: I10] Diagnosis: Generalized anxiety disorder[ICD10: F41.1] Diagnosis: Excessive and frequent menstruation with regular cycle[ICD10: N92.0] Diagnosis: Pain in right knee[ICD10: M25.561] Petra Trejo MD, [facility] CPT-4: 47878 08/30/2015 86559 EST. PATIENT, LEVEL IV Diagnosis: Palpitations[ICD10: R00.2] Diagnosis: Other obesity due to excess calories[ICD10: E66.09] Petra Trejo MD, [facility] CPT-4: 19090 08/16/2015 ([id number]) 87930 EST. PATIENT, LEVEL IV Diagnosis: Pain in right knee[ICD10: M25.561] Diagnosis: Primary generalized (osteo)arthritis[ICD10: M15.0] Diagnosis: Acute maxillary sinusitis, unspecified[ICD10: J01.00] Heidy Trejo MD, [facility] CPT-4: 91348 07/15/2015 ([id number]) 78363 EST. PATIENT, LEVEL IV Diagnosis: Primary generalized (osteo)arthritis[ICD10: M15.0] Diagnosis: Restless legs syndrome[ICD10: G25.81] Diagnosis: Chronic pain syndrome[ICD10: G89.4] Heidy Trejo MD, [facility] CPT- 4: 58917 06/16/2015 ([id number]) 55825 EST. PATIENT, LEVEL III Diagnosis: Primary generalized (osteo)arthritis[ICD10: M15.0] Diagnosis: Varicose veins of bilateral lower extremities with pain[ICD10: I83.813] Claudette Trejo MD, [facility] CPT-4: 61264 04/02/2015 ([id number]) OFFICE VISIT, NEW - LEVEL 3 Diagnosis: Osteoarthritis[ICD9: 715.90] Diagnosis: ABNORMAL WEIGHT GAIN[ICD9: 783.1] Diagnosis: Superficial thrombophlebitis[ICD9: 451.9] Carey Trejo MD, [facility] CPT-4: 66874 12/02/2014 Plan of Care Planned Activity Notes [...] if the symptoms are not improving. 10/03/2018 Patient Education: Patient Medication Summary Completed 10/03/2018 Care Plan: Referral Order SNOMED-CT : [id number] Pending 09/24/2018 Visit Plan: Esophageal Reflux - [...] second opinion 09/23/2018 Appointment: Petra Rivas WPtel: [address] [place], [place] [phone] (30 min) [facility] 09/23/2018 Patient Education: Patient Medication Summary Completed [...] control. 08/26/2018 [phone] ([facility] 08/26/2018 Patient Education: Patient [...] glucose control. 08/12/2018 App[facility]ment[phone] [facility] ([facility] Complex 08/12/2018 Patient Education: Patient [...] indicated 07/17/2018 Appointment: Petra Rivas WPtel: [phone] [facility] [place] (30 min) Complex 07/17/2018 Patient Education: [...] medications. 07/04/2018 Appointment: Petra Rivas WPtel: [phone] [facility] (30 min) Complex 07/04/2018 Patient Education: [...] patient. 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 04/17/2018 Appointment: [phone] (15 min) Moderate 04/17/2018 Patient Education: [...] edema. 03/14/2018 Appointment: Petra Rivas WPtel: [phone] [facility] (15 min) Moderate 03/14/2018 Patient Education: Patient [...] Appointment: Petra Rivas WPtel: [facility] ([facility] min[facility] Complex 02/27/2018 Patient Education: [...] improve. 12/04/2017 Appointment: [phone] [facility] [place] (15 min) Moderate 12/04/2017 Patient [...] control. 11/20/2017 Appointment: [phone] [facility] (15 min) Moderate 11/20/2017 Patient Education: [...] improve. 09/10/2017 Appointment: [phone] [facility] [place] (15 min) Moderate 09/10/2017 Patient [...] not improve. 08/14/2017 Appointment: Petra Rivas WPtel: [address] [place] [phone] (30 min) Complex 08/14/2017 Patient Education: Patient Medication Summary Completed 08/14/2017 Appointment: Petra Rivas WPtel: [address] [place], [place] [phone] (15 min) Moderate 08/01/2017 Visit Plan: Knee pain - pt is to use RICE - Rest, Ice, Compression, Elevation - pt is to use crutches as directed - The pt is to use prn antiinflammatories to manage acute pain. The patient is to call the office if the pain is worsening or does not improve. 07/31/2017 Appointment: Petra Rivas WPtel: [address] [place], [place] [phone] (30 min) Complex 07/31/2017 Patient Education: Patient Medication Summary Completed 07/31/2017 Care Plan: X-RAY EXAM OF KNEE 3 LOINC : 88676-0 Pending 07/31/2017 Visit Plan: URI - Pt [...] allergy spray. 06/27/2017 Appointment: Petra Rivas WPtel: [address] [place], [place] [phone] (15 min) Moderate 06/27/2017 Patient Education: Patient Medication Summary Completed 06/27/2017 Referral: Jignesh Quinn [facility] Patient informed. Referral info faxed. Completed [...] refer to Dr. Quinn 05/29/2017 Appointment: Petra Rivastel: [phone] [facility] (15 min) Moderate 05/29/2017 Patient Education: Patient Medication Summary Completed 05/29/2017 Care Plan: Referral Order SNOMED-CT : [id number] Pending 05/29/2017 Appointment: [phone] [facility] (15 min) Moderate 05/28/2017 Visit Plan: [...] call for acute concerns. 05/21/2017 App[facility]ment: [phone] [facility] (15 min) Moderate 05/21/2017 Patient Education: [...] Appointment: Petra Rivas WPtel: [facility] (30 min) Complex 04/20/2017 Patient Education: Patient Medication Summary Completed 04/20/2017 Appointment: Petra Rivas WPtel: [facility] (30 min) Complex 03/29/2017 Patient Education: Patient Medication Summary Completed 03/16/2017 Referral: Maycol Quijano Referral Initiated 02/08/2017 Care Plan: Referral Order SNOMED-CT : [id number] Pending 01/28/2017 Visit Plan: Insomnia - Pt [...] Appointment: Petra Rivas WPtel: [facility] (30 min) Complex 01/26/2017 Patient Education: [...] worsen. 01/11/2017 Appointment: [phone] [facility] (15 min) Moderate 01/11/2017 Patient Education: [...] on use. 11/30/2016 Appointment: Claudette Savage WPtel: [phone] (15 min) Moderate 11/30/2016 Patient Education: Patient Medication Summary Completed 11/30/2016 Patient Education: Obesity Completed 11/30/2016 Care Plan: BMI Above normal followup SELF-MGMT EDUC & TRAIN 1 PT Pending 11/30/2016 Visit Plan: Ecamlcy-xzdlyrzojc-fclzpgrt with increase in cymbalta- no changes Insomnia-RX for belsomra provided and instructed on use Obesity- patient down 15#-no changes-continue diet/exercise-follow up in 2 months 09/28/2016 Appointment: Claudette Savage WPtel: [phone] [phone] (15 min) Moderate 09/28/2016 Patient Education: Patient Medication Summary Completed 09/28/2016 Patient Education: Obesity Completed 09/28/2016 Care Plan: BMI Above normal followup SELF-MGMT EDUC & TRAIN 1 PT Pending 09/28/2016 Visit Plan: Nkcidcs-pfdgoxeicp-ozkdyvdq-increase cymbalta to 60mg daily. Increase xanax as [...] insomnia/anxiety 08/24/2016 Appointment: Claudette Savage WPtel: [phone] [phone] [place] (15 min) Moderate 08/24/2016 Patient [...] improving. 07/13/2016 Appointment: Heidy Trejo WPtel: [phone] [facility] [place] (15 min) Moderate 07/13/2016 Patient Education: [...] insomnia. 05/19/2016 Appointment: Petra Rivas WPtel: [phone] [facility] [place] (30 min) Complex 05/19/2016 Patient [...] patient. 03/16/2016 Appointment: Heidy Trejo WPtel: [phone] [facility] (15 min) Moderate 03/16/2016 Patient Education: Patient [...] swab. 02/28/2016 Appointment: Claudette Savage WPtel: [phone] [phone] [place] (10 min) Simple 02/28/2016 Patient [...] lexapro 01/13/2016 Appointment: He[phone] [place] (15 min) Moderate 01/13/2016 Patient Education: [...] 09/27/2015 Care Plan: Referral Order SNOMED-CT : [id number] Pending 08/31/2015 Visit Plan: Anxiety - the [...] pain symptoms. 07/15/2015 Appointment: Heidy Trejo WPtel: [address] [place] [address] (15 min) Moderate 07/15/2015 Patient Education: Patient [...] Appointment: Claudette Savage WPtel: [phone] [place] (15 min) Moderate 04/02/2015 Patient [...] Summary Completed 12/02/2014 Referral: Belle Hoffman WPtel: [address] [place], [place] [address] they will call and set the appt with her Initiated Referral: Justo Lemus Referral Initiated Referral: Maycol Quijano Referral Initiated Referral: Belle Hoffman WPtel: [facility] Referral Initiated Referral: Jignesh Quinn [facility] [place] Referral Initiated Instructions Comment use tylenol instead of naproxen or ibuprofen [...] Dr. Lemus for a second opinion . 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 Anxiety and Depression- the patient has [...] 1 mg at night for anxiety . Uoiwotz-aibmmvzzun-jfyktyze-increase cymbalta to 60mg daily. Increase xanax as [...] is worsening or does not improve. . Hypertension - well controlled - continue [...] office if the symptoms are not improving. . Left knee pain - ongoing - [...] clinic with any changes, questions, or concerns. pramipexole - 0.5mg - [...] medication such as mirapex or requip. . UTI - pt with positive urinalysis [...] to allow for greater blood glucose control. [employer] contrave 1 pill nightly x 1 week, then one pill twice daily x 1 week, then if needed can increase up to 2 pills twice daily. stop lexapro . Depression and -Obesity - chronic issue with this patient. The pt has been counseled about diet changes, calorie restriction, and need to exercise. Pt will RTC in one month for weight check. [employer] contrave 1 pill nightly x 1 [...] appropriately prescribed for this patient. BELSOMRA . Eudpacp-squvriocfx-bokeejdz with increase in cymbalta-no changes Insomnia-RX for [...]
--- OUTSIDE RECORDS SUMMARY | 2018-10-14 12:40 | XMS REPORT | CCD ---
Author Author [place] Organization [facility] Address [address] [place] [address] Phone Care Team Providers Care Doctor Of Nurse Anesthesia Name Role Phone PP Unavailable CCM Unavailable Summary Purpose Interface Exchange Insurance Providers Payer name Policy type / Coverage type Covered green party ID Effective Begin Date Effective End Date [facility] Commercial Insurance [id number] Unknown Family history Brother Diagnosis Age At [...] Description Effective Dates Tobacco history SNOMED CT: 4601830 Quit less than 5 years ago 04/02/2015 Alcohol history Unknown occasionally drinks alcohol 04/02/2015 Marital status Unknown Manuel Vitale 12/02/2014 Number of children Unknown 3 12/02/2014 Allergies, Adverse Reactions, Alerts Substance Reaction Codes Entered Date Inactivated Date Status * NO KNOWN FOOD ALLERGIES Unknown 12/02/2014 No Inactive Date Active Penicillin Unknown 12/02/2014 No Inactive Date Active tramadol RxNorm: 96993 12/02/2014 No Inactive Date Active Past Medical History Illness Codes Condition Status Onset Date Resolved Date Gastro-esophageal reflux disease without esophagitis ICD-9: 530.81 ICD-10: K21.9 Active 09/23/2018 Unknown Pain in left knee ICD-9: 719.46 ICD-10: M25.562 Active 07/31/2017 Unknown Dysuria ICD-9: 788.1 ICD-10: R30.0 Active 08/26/2018 Unknown Other obesity due to excess calories ICD-9: 278.00 ICD-10: E66.09 Active 01/12/2016 Unknown Type 2 diabetes mellitus with hyperglycemia ICD-9: 250.02 ICD-10: E11.65 Active 08/26/2018 Unknown Essential (primary) hypertension ICD-9: 401.1 ICD-10: I10 Active 03/14/2018 Unknown Type 2 diabetes mellitus without complications [...] Problems Condition Codes Effective Dates Condition Status Gastro-esophageal reflux disease without esophagitis ICD-9: 530.81 ICD-10: K21.9 09/23/2018 Active Pain in left knee ICD-9: 719.46 ICD-10: M25.562 07/31/2017 Active Dysuria ICD-9: 788.1 ICD-10: R30.0 08/26/2018 Active Other obesity due to excess calories ICD-9: 278.00 ICD-10: E66.09 01/12/2016 Active Type 2 diabetes mellitus with hyperglycemia ICD-9: 250.02 ICD-10: E11.65 08/26/2018 Active Essential (primary) hypertension ICD-9: 401.1 ICD-10: I10 03/14/2018 Active Type 2 diabetes mellitus without complications [...] chloride ER 10 mEq tablet,extended release RxNorm: 947771 1 TABLET(S) PO DAILY NEEDED TO TAKE WHEN YOU TAKE THE LASIX 10/02/2018 12/30/2018 Active Lasix 20 mg tablet RxNorm: 225513 1 TABLET(S) PO DAILY NEEDED EDEMA 10/02/2018 12/30/2018 Active hydrochlorothiazide 25 mg tablet RxNorm: 724251 1 TABLET(S) PO DAILY 09/19/2018 12/17/2018 Active Saxenda 3 mg/0.5 mL (18 mg/3 mL) subcutaneous pen injector RxNorm: 7584892 1.8 Milligram(s) SQ daily 08/28/2018 12/25/2018 Active disp qty sufficient- [place] approved Saxenda 3 mg/0.5 mL (18 mg/3 mL) subcutaneous pen injector RxNorm: 3565670 1.8 Milligram(s) SQ daily 08/28/2018 08/27/2018 Inactive disp qty sufficient Saxenda 3 mg/0.5 mL (18 mg/3 mL) subcutaneous pen injector RxNorm: 4454437 1.8 Milliliter(s) SQ daily 08/27/2018 08/27/2018 Inactive disp qty sufficient Xanax 1 mg tablet RxNorm: 576370 1-2 Tablet(s) PO QHS as needed insomnia 08/26/2018 11/23/2018 Active metformin 500 mg tablet RxNorm: 795944 1 Tablet(s) PO BID 08/26/2018 12/23/2018 Active Keflex 500 mg capsule RxNorm: 233857 1 Capsule(s) PO TID 08/26/2018 09/01/2018 Inactive Protonix 40 mg tablet,delayed release RxNorm: 613644 1 TABLET(S) PO DAILY 08/12/2018 12/09/2018 Active metformin 500 mg tablet RxNorm: 974470 1 Tablet(s) PO daily 08/12/2018 08/25/2018 Inactive Lasix 20 mg tablet RxNorm: 152638 1 TABLET(S) PO DAILY NEEDED EDEMA 08/06/2018 10/01/2018 Inactive potassium chloride ER 10 mEq tablet,extended release RxNorm: 356583 1 TABLET(S) PO DAILY NEEDED TO TAKE WHEN YOU TAKE THE LASIX 08/06/2018 10/01/2018 Inactive Zorvolex 35 mg capsule RxNorm: 4129365 TAKE 1 CAPSULE BY MOUTH THREE (3) TIMES DAILY 08/02/2018 11/29/2018 Active prednisone 20 mg tablet RxNorm: 547617 Tablet(s) PO 07/17/2018 No Stop Date Active 20mg tonight then starting tomorrow: 60,60,40,40,20,20,10,10 Remeron 15 mg tablet RxNorm: 550840 1/2 Tablet(s) PO QHS 07/17/2018 2019 Active Tamiflu 75 mg capsule RxNorm: 454297 1 Capsule(s) PO BID 07/17/2018 07/21/2018 Inactive Kenalog 40 mg/mL suspension for injection RxNorm: 3253919 Milliliter(s) Inj 07/17/2018 07/17/2018 Inactive Lexapro 20 mg tablet RxNorm: 464492 1 TABLET(S) PO DAILY 07/15/2018 11/11/2018 Active potassium chloride ER 10 mEq tablet,extended release RxNorm: 256363 1 Tablet(s) PO daily as needed to take when you take the lasix 07/04/2018 08/02/2018 Inactive Lasix 20 mg tablet RxNorm: 228625 1 Tablet(s) PO daily as needed edema 07/04/2018 08/02/2018 Inactive Cymbalta 30 mg capsule,delayed release RxNorm: 304799 1 CAPSULE(S) PO DAILY TO BE TAKEN WITH 60MG TO=90MG 07/01/2018 07/14/2018 Inactive hydrochlorothiazide 25 mg tablet RxNorm: 284673 1 TABLET(S) PO DAILY 06/27/2018 09/18/2018 Inactive Remeron 15 mg tablet RxNorm: 178801 1/2 Tablet(s) PO QHS 06/20/2018 07/16/2018 Inactive Lasix 20 mg tablet RxNorm: 909867 1 Tablet(s) PO daily 06/19/2018 06/21/2018 Inactive potassium chloride ER 10 mEq tablet,extended release RxNorm: 561865 1 Tablet(s) PO daily 06/19/2018 07/03/2018 Inactive Lexapro 20 mg tablet RxNorm: 199267 1 Tablet(s) PO daily 06/19/2018 07/14/2018 Inactive gabapentin 300 mg capsule RxNorm: 446815 1 CAPSULE(S) PO TID 06/14/2018 08/12/2018 Inactive Ambien 10 mg tablet RxNorm: 959898 1 Tablet(s) PO QHS as needed insomnia 06/10/2018 09/07/2018 Inactive Cymbalta 30 mg capsule,delayed release RxNorm: 666367 1 Capsule(s) PO daily 06/03/2018 06/02/2018 Inactive Cymbalta 30 mg capsule,delayed release RxNorm: 493908 1 Capsule(s) PO daily to be taken with 60mg to=90mg 06/03/2018 06/30/2018 Inactive Protonix 40 mg tablet,delayed release RxNorm: 285718 1 TABLET(S) PO DAILY 05/20/2018 08/11/2018 Inactive gabapentin 300 mg capsule RxNorm: 027046 1 CAPSULE(S) PO TID 05/15/2018 06/13/2018 Inactive Protonix 40 mg tablet,delayed release RxNorm: 945664 1 Tablet(s) PO daily 04/24/2018 05/19/2018 Inactive Zorvolex 35 mg capsule RxNorm: 3537891 TAKE 1 CAPSULE BY MOUTH THREE (3) TIMES DAILY 04/22/2018 08/01/2018 Inactive hydrochlorothiazide 25 mg tablet RxNorm: 659761 1 TABLET(S) PO DAILY 04/08/2018 06/26/2018 Inactive Zorvolex 35 mg capsule RxNorm: 5724773 TAKE 1 CAPSULE BY MOUTH THREE (3) TIMES DAILY 03/27/2018 04/21/2018 Inactive gabapentin 300 mg capsule RxNorm: 477028 1 CAPSULE(S) PO TID 03/25/2018 04/14/2018 Inactive hydrochlorothiazide 25 mg tablet RxNorm: 025736 1 Tablet(s) PO daily 03/14/2018 04/07/2018 Inactive Victoza 2-Marek 0.6 mg/0.1 mL (18 mg/3 mL) subcutaneous pen injector RxNorm: 824829 Milligram(s) INJECT 1.8 MG SUB-Q ONCE DAILY 02/27/2018 08/20/2019 Active qty sufficient atorvastatin 20 mg tablet RxNorm: 820795 1 Tablet(s) PO daily 02/27/2018 05/22/2019 Active Cymbalta 60 mg capsule,delayed release RxNorm: 093549 TAKE 1 CAPSULE BY MOUTH DAILY 02/27/2018 02/26/2018 Inactive Cymbalta 60 mg capsule,delayed release RxNorm: 595927 1 Capsule(s) PO daily TAKE 1 CAPSULE BY MOUTH DAILY 02/27/2018 07/14/2018 Inactive gabapentin 300 mg capsule RxNorm: 101059 1 Capsule(s) PO TID 02/27/2018 03/24/2018 Inactive Xanax 1 mg tablet RxNorm: 472373 1-2 Tablet(s) PO QHS as needed insomnia 02/27/2018 05/27/2018 Inactive meloxicam 7.5 mg tablet RxNorm: 406767 1 Tablet(s) PO daily 1 TABLET(S) PO DAILY 02/27/2018 04/14/2018 Inactive Ambien 10 mg tablet RxNorm: 980208 1 Tablet(s) PO QHS as needed insomnia 02/27/2018 05/25/2018 Inactive atorvastatin 20 mg tablet RxNorm: 336233 1 Tablet(s) PO daily 02/05/2018 02/26/2018 Inactive atorvastatin 20 mg tablet RxNorm: 920964 1 Tablet(s) PO daily 02/05/2018 02/04/2018 Inactive meloxicam 7.5 mg tablet RxNorm: 446388 1 TABLET(S) PO DAILY 02/01/2018 02/26/2018 Inactive oxycodone 15 mg tablet RxNorm: 6931693 1 Tablet(s) PO QID as needed 01/07/2018 02/19/2018 Inactive lactulose 20 gram/30 mL oral solution RxNorm: 846685 15-30 Milliliter(s) PO BID as needed 12/31/2017 02/20/2018 Inactive meloxicam 7.5 mg tablet RxNorm: 824226 1 TABLET(S) PO DAILY 12/13/2017 01/31/2018 Inactive Zorvolex 35 mg capsule RxNorm: 4673819 1 Capsule(s) PO TID 12/13/2017 02/20/2018 Inactive Ambien 10 mg tablet RxNorm: 068771 1 Tablet(s) PO QHS as needed insomnia 12/04/2017 02/26/2018 Inactive oxycodone 15 mg tablet RxNorm: 6364885 1 Tablet(s) PO QID as needed 12/04/2017 01/06/2018 Inactive prednisone 20 mg tablet RxNorm: 037854 2 Tablet(s) PO daily 12/04/2017 12/08/2017 Inactive Victoza 2-Marek 0.6 mg/0.1 mL (18 mg/3 mL) subcutaneous pen injector RxNorm: 114052 Milligram(s) INJECT 1.8 MG SUB-Q ONCE DAILY 11/20/2017 02/26/2018 Inactive meloxicam 7.5 mg tablet RxNorm: 448176 1 Tablet(s) PO daily 11/20/2017 12/12/2017 Inactive phentermine 37.5 mg tablet RxNorm: 962016 1 Tablet(s) PO daily 11/20/2017 12/19/2017 Inactive Ambien 10 mg tablet RxNorm: 417043 1 Tablet(s) PO QHS as needed insomnia 11/20/2017 12/18/2017 Inactive Xanax 1 mg tablet RxNorm: 212590 1.5 Tablet(s) PO QHS as needed insomnia 11/20/2017 02/26/2018 Inactive hydrocodone 7.5 mg-acetaminophen 325 mg tablet RxNorm: 681958 1 Tablet(s) PO TID as needed 11/16/2017 01/06/2018 Inactive Cymbalta 60 mg capsule,delayed release RxNorm: 643172 TAKE 1 CAPSULE BY MOUTH DAILY 11/02/2017 02/26/2018 Inactive Xanax 1 mg tablet RxNorm: 126672 1 Tablet(s) PO BID PRN as needed anxiety 10/04/2017 11/19/2017 Inactive Victoza 2-Marek 0.6 mg/0.1 mL (18 mg/3 mL) subcutaneous pen injector RxNorm: 801772 INJECT 1.8 MG SUB-Q ONCE DAILY 10/04/2017 11/19/2017 Inactive hydrocodone 7.5 mg-acetaminophen 325 mg tablet RxNorm: 059336 1 Tablet(s) PO TID as needed 09/17/2017 11/15/2017 Inactive hydrocodone 7.5 mg-acetaminophen 325 mg tablet RxNorm: 037595 1 Tablet(s) PO TID as needed 09/10/2017 09/16/2017 Inactive prednisone 10 mg tablet RxNorm: 699935 Tablet(s) PO 09/10/2017 11/13/2017 Inactive 6,5,4,3,2,1 Zorvolex 35 mg capsule RxNorm: 0024062 1 Capsule(s) PO TID 09/07/2017 11/13/2017 Inactive Ambien 10 mg tablet RxNorm: 558828 1 Tablet(s) PO QHS as needed insomnia 08/29/2017 11/19/2017 Inactive Zorvolex 35 mg capsule RxNorm: 8386055 1 Capsule(s) PO TID 08/28/2017 09/06/2017 Inactive Zorvolex 35 mg capsule RxNorm: 4922907 1 Capsule(s) PO TID 08/13/2017 08/27/2017 Inactive Zorvolex 35 mg capsule RxNorm: 8356596 1 Capsule(s) PO TID 08/13/2017 08/12/2017 Inactive prednisone 20 mg tablet RxNorm: 906969 2 Tablet(s) PO daily 07/31/2017 08/04/2017 Inactive hydrocodone 7.5 mg-acetaminophen 325 mg tablet RxNorm: 938510 1 Tablet(s) PO TID as needed 07/31/2017 09/09/2017 Inactive Zorvolex 35 mg capsule RxNorm: 6591209 1 Capsule(s) PO TID as needed 07/31/2017 11/13/2017 Inactive ceftriaxone 500 mg solution for injection RxNorm: 9256334 1 Milliliter(s) Inj 06/27/2017 06/27/2017 Inactive Keflex 500 mg capsule RxNorm: 292342 1 Capsule(s) PO TID 06/27/2017 07/03/2017 Inactive Ambien 10 mg tablet RxNorm: 761690 1 Tablet(s) PO daily 05/29/2017 08/25/2017 Inactive tramadol 50 mg tablet RxNorm: 279505 1 Tablet(s) PO TID as needed 05/29/2017 07/27/2017 Inactive Xanax 1 mg tablet RxNorm: 784726 1 Tablet(s) PO BID PRN as needed anxiety 05/21/2017 10/03/2017 Inactive alprazolam 1 mg tablet RxNorm: 960072 1 Tablet(s) PO BID as needed 05/21/2017 06/19/2017 Inactive Celebrex 200 mg capsule RxNorm: 013684 1 CAPSULE(S) PO BID 05/04/2017 11/05/2017 Inactive prednisone 20 mg tablet RxNorm: 846129 2 Tablet(s) PO daily 04/20/2017 04/24/2017 Inactive Ambien 10 mg tablet RxNorm: 718392 Tablet(s) PO 04/20/2017 05/28/2017 Inactive hydrocodone 5 mg-acetaminophen 325 mg tablet RxNorm: 828868 1 Tablet(s) PO QID as needed 04/20/2017 08/01/2017 Inactive Cymbalta 60 mg capsule,delayed release RxNorm: 638909 1 Capsule(s) PO daily 04/20/2017 02/26/2018 Inactive Victoza 2-Marek 0.6 mg/0.1 mL (18 mg/3 mL) subcutaneous pen injector RxNorm: 663401 INJECT 1.8 MG SUB-Q ONCE DAILY 03/26/2017 09/21/2017 Inactive diazepam 2 mg tablet RxNorm: 062903 1 Tablet(s) PO QHS as needed insomnia 01/28/2017 05/07/2017 Inactive Victoza 2-Marek 0.6 mg/0.1 mL (18 mg/3 mL) subcutaneous pen injector RxNorm: 999017 1.8 Milligram(s) SQ daily 01/26/2017 03/25/2017 Inactive dispense quantity sufficient Tussionex Pennkinetic ER 10 mg-8 mg/5 mL suspension,extended release RxNorm: 9277800 5 Milliliter(s) PO BID 01/11/2017 01/15/2017 Inactive Xanax 1 mg tablet RxNorm: 994816 1 Tablet(s) PO BID PRN as needed anxiety 01/11/2017 05/20/2017 Inactive Zithromax Z-Marek 250 mg tablet RxNorm: 459359 1 Tablet(s) PO UD 01/11/2017 01/15/2017 Inactive zpack albuterol sulfate 2.5 mg/3 mL (0.083 %) solution for nebulization RxNorm: 098395 3 Milliliter(s) INH UD 01/11/2017 11/13/2017 Inactive prednisone 20 mg tablet RxNorm: 347462 2 Tablet(s) PO daily 01/11/2017 01/15/2017 Inactive Kenalog 40 mg/mL suspension for injection RxNorm: 0885569 1.5 Milliliter(s) Inj 01/11/2017 01/11/2017 Inactive Celebrex 200 mg capsule RxNorm: 568546 1 Capsule(s) PO BID 11/30/2016 02/27/2017 Inactive Ambien 5 mg tablet RxNorm: 842685 1 Tablet(s) PO HS PRN 11/30/2016 08/07/2017 Inactive trazodone 50 mg tablet RxNorm: 416575 1/2 to 1 Tablet(s) PO QHS 10/13/2016 10/12/2016 Inactive trazodone 50 mg tablet RxNorm: 461788 1/2 to 1 Tablet(s) PO QHS 10/13/2016 11/29/2016 Inactive Belsomra 10 mg tablet RxNorm: 0305419 1 Tablet(s) PO QHS 09/28/2016 11/29/2016 Inactive may increase to 20mg if 10mg not effective Cymbalta 60 mg capsule,delayed release RxNorm: 665856 1 Capsule(s) PO daily 08/24/2016 03/21/2017 Inactive Xanax 1 mg tablet RxNorm: 679040 1 Tablet(s) PO BID PRN as needed anxiety 08/24/2016 01/10/2017 Inactive Victoza 2-Marek 0.6 mg/0.1 mL (18 mg/3 mL) subcutaneous pen injector RxNorm: 460335 Milligram(s) SQ 08/24/2016 08/23/2016 Inactive Victoza 2-Marek 0.6 mg/0.1 mL (18 mg/3 mL) subcutaneous pen injector RxNorm: 420976 1.8 Milligram(s) SQ 08/24/2016 01/25/2017 Inactive Vitamin D2 50,000 unit capsule RxNorm: 360490 1 Capsule(s) PO QW 07/13/2016 10/10/2016 Inactive Cymbalta 30 mg capsule,delayed release RxNorm: 903763 1 Capsule(s) PO daily 07/13/2016 08/23/2016 Inactive Belviq XR 20 mg tablet,extended release RxNorm: 1077324 1 Tablet(s) PO daily 05/30/2016 05/29/2016 Inactive prednisone 20 mg tablet RxNorm: 295880 2 Tablet(s) PO daily 05/30/2016 06/03/2016 Inactive prednisone 20 mg tablet RxNorm: 938203 2 Tablet(s) PO daily 05/30/2016 05/29/2016 Inactive Belviq XR 20 mg tablet,extended release RxNorm: 2943035 1 Tablet(s) PO daily 05/30/2016 06/28/2016 Inactive cyclobenzaprine 5 mg tablet RxNorm: 812608 1-2 Tablet(s) PO TID as needed 05/19/2016 05/23/2016 Inactive metoprolol succinate ER 25 mg tablet,extended release 24 hr RxNorm: 384685 1 Tablet(s) PO QPM 04/10/2016 04/13/2016 Inactive metoprolol succinate ER 25 mg tablet,extended release 24 hr RxNorm: 264325 1 Tablet(s) PO QPM 04/10/2016 04/09/2016 Inactive escitalopram 10 mg tablet RxNorm: 361767 1 Tablet(s) PO daily 03/16/2016 07/12/2016 Inactive estradiol 1 mg tablet RxNorm: 964555 1 Tablet(s) PO every other day 03/16/2016 05/15/2016 Inactive Kenalog 40 mg/mL suspension for injection RxNorm: 5018216 Milliliter(s) Inj 02/28/2016 02/28/2016 Inactive Zithromax Z-Marek 250 mg tablet RxNorm: 277166 1 Tablet(s) PO UD 02/28/2016 03/03/2016 Inactive zpack Lexapro 10 mg tablet RxNorm: 414020 1 Tablet(s) PO daily 09/27/2015 02/27/2016 Inactive Lexapro 10 mg tablet RxNorm: 305618 1 Tablet(s) PO daily 08/30/2015 09/26/2015 Inactive Vimovo 500 mg-20 mg tablet,immediate and delay release RxNorm: 785985 1 Tablet(s) PO BID as needed for pain 08/30/2015 09/26/2015 Inactive azithromycin 250 mg tablet RxNorm: 262469 1 Tablet(s) PO UD 2 pills on day #1, then one pill daily x 4 days 07/15/2015 01/12/2016 Inactive hydrocodone 10 mg-acetaminophen 325 mg tablet RxNorm: 432657 1 Tablet(s) PO QID 06/16/2015 01/12/2016 Inactive pramipexole 0.5 mg tablet RxNorm: 496347 1 Tablet(s) PO QPM 06/16/2015 07/14/2015 Inactive Celebrex 200 mg capsule RxNorm: 121989 1 Capsule(s) PO daily 05/03/2015 05/02/2015 Inactive Celebrex 200 mg capsule RxNorm: 918050 1 Capsule(s) PO daily 05/03/2015 01/12/2016 Inactive hydrocodone 7.5 mg-acetaminophen 325 mg tablet RxNorm: 165980 1 Tablet(s) PO Q6 PRN 05/03/2015 06/15/2015 Inactive Mobic 15 mg tablet RxNorm: 728820 1 Tablet(s) PO daily 04/02/2015 05/02/2015 Inactive hydrocodone 7.5 mg-acetaminophen 325 mg tablet RxNorm: 857286 1 Tablet(s) PO Q6 PRN 04/02/2015 05/02/2015 Inactive hydrocodone 5 mg-acetaminophen 325 mg tablet RxNorm: 298399 1 Tablet(s) PO Q6 as needed 12/11/2014 04/01/2015 Inactive Pennsaid 1.5 % topical drops RxNorm: 292517 40 Drop(s) TOP QID as needed 12/07/2014 02/04/2015 Inactive Apply 40 drops to each knee joint 4 times per day as needed for osteoarthritis pain estradiol 1 mg tablet RxNorm: 465131 1 Tablet(s) PO QHS No Start Date 03/15/2016 Inactive Xanax 0.5 mg tablet RxNorm: 808035 1 Tablet(s) PO Q6 as needed anxiety No Start Date 08/23/2016 Inactive Tylenol Extra Strength 500 mg tablet RxNorm: 890743 3 Tablet(s) PO BID after breakfast and after lunch No Start Date 01/12/2016 Inactive lactulose 20 gram/30 mL oral solution RxNorm: 227032 15-30 Milliliter(s) PO BID as needed No Start Date 12/30/2017 Inactive hydrocodone 5 mg-acetaminophen 325 mg tablet RxNorm: 286715 1 Tablet(s) PO Q6 as needed No Start Date 12/10/2014 Inactive Phenergan-Codeine syrup RxNorm: 5-10 Milliliter(s) PO QID as needed No Start Date 11/13/2017 Inactive ibuprofen 200 mg capsule RxNorm: 702687 4 Capsule(s) PO QID as needed No Start Date 04/01/2015 Inactive Medication Administered Medication Codes Instructions Start Date Status Kenalog 40 mg/mL suspension for injection RxNorm: 6230671 Milliliter 07/17/2018 No longer Active ceftriaxone 500 mg solution for injection RxNorm: 2027589 1Milliliter 06/27/2017 No longer Active Kenalog 40 mg/mL suspension for injection RxNorm: 1443288 1.5Milliliter 01/11/2017 No longer Active Kenalog 40 mg/mL suspension for injection RxNorm: 8942252 Milliliter 02/28/2016 No longer Active Immunizations Vaccine Codes Date Status Influenza CVX: 141 03/16/2017 completed Pneumococcal (Adult) CVX: 33 03/16/2017 completed Assessments Condition Codes Effective Dates Gastro-esophageal reflux disease without esophagitis ICD-10: K21.9 ICD-9: 530.81 09/23/2018 Pain in left knee ICD-10: M25.562 ICD-9: [...] chest pain ICD-10: R07.89 ICD-9: 786.59 04/24/2018 Essential (primary) hypertension ICD-10: I10 ICD-9: [...] Visit Reason For Visit Effective Dates Notes abdominal pain 09/23/2018 diabetes mellitus 08/26/2018 diabetes [...] sent to ref lab 08/27/2018 Influenza A+B Jjh559 Influ A+B Pos Influenza A 07/17/2018 %Hba1C Vmm855 % HbA1c 41202- 6 6.7 % 11/20/2017 %Hba1C Xdg230 Gluc Ave 146 mg/dL 11/20/2017 Free T4 Znh409 FREE T4 0.76 ng/dL 05/21/2017 Tsh Ord6 hTSH II 1.27 uIU/mL 05/21/2017 Comp Metabolic Iiu836 NA 140 mEq/L 05/21/2017 Comp Metabolic Ydi465 K 3.9 mEq/L 05/21/2017 Comp Metabolic Jdc102 CL 101 mEq/L 05/21/2017 Comp Metabolic Ewx754 CO2 28.0 mEq/L 05/21/2017 Comp Metabolic Syn207 ANION GAP 15 05/21/2017 Comp Metabolic Oip567 GLUCOSE 155 mg/dL 05/21/2017 Comp Metabolic Ylq921 Creat 0.7 mg/dL 05/21/2017 Comp Metabolic Wlf101 eGFR 87 ml/min/1.73m2 05/21/2017 Comp Metabolic Gjj374 BUN 16 mg/dL 05/21/2017 Comp Metabolic Zau217 B/C Ratio 21.6 Ratio 05/21/2017 Comp Metabolic Wsr290 CALCIUM 9.4 mg/dL 05/21/2017 Comp Metabolic Knd202 ALK PHOS 132 U/L 05/21/2017 Comp Metabolic Jdv004 AST(SGOT) 16 U/L 05/21/2017 Comp Metabolic Rmz653 ALT(SGPT) 20 U/L 05/21/2017 Comp Metabolic Pgr978 BILI T 0.4 mg/dL 05/21/2017 Comp Metabolic Xkk253 ALBUMIN 4.0 g/dL 05/21/2017 Comp Metabolic Bjq860 TPRO 6.7 g/dL 05/21/2017 Comp Metabolic Slc777 GLOB 2.7 g/dL 05/21/2017 Comp Metabolic Dwx790 A/G Ratio 1.5 Ratio 05/21/2017 Comp Metabolic Nay047 Osmo 284 mOsmo 05/21/2017 Cbc With Differential [...] 28.9 pg 05/21/2017 Cbc With Differential Ord2 Lassen% 5.5 % 05/21/2017 Cbc With Differential Ord2 [...] 2.65 K/ul 05/21/2017 Cbc With Differential Ord2 Lassen ABS# 0.8 K/ul 05/21/2017 Cbc With Differential Ord2 Eos ABS# 0.1 K/ul 05/21/2017 Cbc With Differential Ord2 Baso ABS# 0.0 K/ul 05/21/2017 Estrogens Total 002177 ESTROGENS, TOTAL 54 pg/mL 05/24/2016 Magnesium Ord90 Mag 1.8 mg/dL 05/19/2016 Tsh Ord6 hTSH II 1.56 uIU/mL 05/19/2016 Progesterone Prog 0.03 ng/mL 05/19/2016 Comp Metabolic Avv611 NA 136 mEq/L 05/19/2016 Comp Metabolic Uds551 K 4.3 mEq/L 05/19/2016 Comp Metabolic Pus630 CL 100 mEq/L 05/19/2016 Comp Metabolic Hjy978 CO2 28.0 mEq/L 05/19/2016 Comp Metabolic Omh162 ANION GAP 12 05/19/2016 Comp Metabolic Ewd276 GLUCOSE 138 mg/dL 05/19/2016 Comp Metabolic Zzd514 Creat 0.7 mg/dL 05/19/2016 Comp Metabolic Auy897 eGFR 89 ml/min/1.73m2 05/19/2016 Comp Metabolic Zah479 BUN 15 mg/dL 05/19/2016 Comp Metabolic Pmc370 B/C Ratio 20.5 Ratio 05/19/2016 Comp Metabolic Kmx057 CALCIUM 9.7 mg/dL 05/19/2016 Comp Metabolic Vym375 ALK PHOS 106 U/L 05/19/2016 Comp Metabolic Xeg831 AST(SGOT) 21 U/L 05/19/2016 Comp Metabolic Trd230 ALT(SGPT) 24 U/L 05/19/2016 Comp Metabolic Zwg459 BILI T 0.4 mg/dL 05/19/2016 Comp Metabolic Lwu278 ALBUMIN 4.1 g/dL 05/19/2016 Comp Metabolic Lem292 TPRO 7.1 g/dL 05/19/2016 Comp Metabolic Swt876 GLOB 3.0 g/dL 05/19/2016 Comp Metabolic Umb827 A/G Ratio 1.4 Ratio 05/19/2016 Comp Metabolic Trz289 Osmo 275 mOsmo 05/19/2016 Cbc With Differential [...] 28.5 pg 05/19/2016 Cbc With Differential Ord2 Lassen% 6.5 % 05/19/2016 Cbc With Differential Ord2 [...] 2.33 K/ul 05/19/2016 Cbc With Differential Ord2 [place] ABS# 0.6 K/ul 05/19/2016 Cbc With Differential Ord2 Eos ABS# 0.1 K/ul 05/19/2016 Cbc With Differential Ord2 Baso ABS# 0.0 K/ul 05/19/2016 C RAP A SC [id number] Strep A Negative 02/28/2016 Tsh Ord6 hTSH [...] 26.2 pg 08/16/2015 Cbc With Differential Ord2 Lassen% 7.1 % 08/16/2015 Cbc With Differential Ord2 [...] 2.32 K/ul 08/16/2015 Cbc With Differential Ord2 [place]assen ABS# 0.6 K/ul 08/16/2015 Cbc With Differential Ord2 Eos ABS# 0.1 K/ul 08/16/2015 Cbc With Differential Ord2 Baso ABS# 0.0 K/ul 08/16/2015 Cbc With Differential Ord2 New Analyzer Notice Please note new ref ranges starting 05-26-2015 due to implemntation of new five part differential hematolgy analyzer. 08/16/2015 Comp Metabolic Zen223 NA 132 mEq/L 08/16/2015 Comp Metabolic Loi140 K 3.6 mEq/L 08/16/2015 Comp Metabolic Bqh594 CL 99 mEq/L 08/16/2015 Comp Metabolic Hsr986 CO2 23.0 mEq/L 08/16/2015 Comp Metabolic Lkt119 ANION GAP 14 08/16/2015 Comp Metabolic Fpj061 GLUCOSE 101 mg/dL 08/16/2015 Comp Metabolic Rrv089 Creat 0.7 mg/dL 08/16/2015 Comp Metabolic Gtx530 eGFR 100 ml/min/1.73m2 08/16/2015 Comp Metabolic Xrk371 BUN 10 mg/dL 08/16/2015 Comp Metabolic Dyh926 B/C Ratio 15.2 Ratio 08/16/2015 Comp Metabolic Nwr878 CALCIUM 9.3 mg/dL 08/16/2015 Comp Metabolic Luh996 ALK PHOS 100 U/L 08/16/2015 Comp Metabolic Wzk168 AST(SGOT) 14 U/L 08/16/2015 Comp Metabolic Mot276 ALT(SGPT) 11 U/L 08/16/2015 Comp Metabolic Dvx770 BILI T 0.3 mg/dL 08/16/2015 Comp Metabolic Rlf149 ALBUMIN 3.9 g/dL 08/16/2015 Comp Metabolic Ima891 TPRO 7.1 g/dL 08/16/2015 Comp Metabolic Xda485 GLOB 3.2 g/dL 08/16/2015 Comp Metabolic Wjg059 A/G Ratio 1.2 Ratio 08/16/2015 Comp Metabolic Itl936 Osmo 264 mOsmo 08/16/2015 Lipid Ord30 CHOL 209 mg/dL 12/03/2014 Lipid Ord30 HDL 42.0 mg/dl 12/03/2014 Lipid Ord30 TRIG 219 mg/dL 12/03/2014 Lipid Ord30 LDL 123 mg/dL 12/03/2014 Lipid Ord30 C/HDL 5.0 Ratio 12/03/2014 Comp Metabolic Xfq432 NA 132 mEq/L 12/03/2014 Comp Metabolic Tbu590 K 4.0 mEq/L 12/03/2014 Comp Metabolic Hln404 CL 101 mEq/L 12/03/2014 Comp Metabolic Cel967 CO2 22.0 mEq/L 12/03/2014 Comp Metabolic Ljv088 ANION GAP 13 12/03/2014 Comp Metabolic Xwi168 GLUCOSE 123 mg/dL 12/03/2014 Comp Metabolic Cxh709 Creat 0.7 mg/dL 12/03/2014 Comp Metabolic Lok233 eGFR 97 ml/min/1.73m2 12/03/2014 Comp Metabolic Ixc272 BUN 10 mg/dL 12/03/2014 Comp Metabolic Kqo050 B/C Ratio 14.7 Ratio 12/03/2014 Comp Metabolic Duh208 CALCIUM 9.2 mg/dL 12/03/2014 Comp Metabolic Whv994 ALK PHOS 88 U/L 12/03/2014 Comp Metabolic Kjb267 AST(SGOT) 18 U/L 12/03/2014 Comp Metabolic Anb455 ALT(SGPT) 17 U/L 12/03/2014 Comp Metabolic Nvd005 BILI T 0.5 mg/dL 12/03/2014 Comp Metabolic Dpr336 ALBUMIN 3.9 g/dL 12/03/2014 Comp Metabolic Yth590 TPRO 6.8 g/dL 12/03/2014 Comp Metabolic Nuh078 GLOB 2.9 g/dL 12/03/2014 Comp Metabolic Qgu408 A/G Ratio 1.3 Ratio 12/03/2014 Comp Metabolic Yci474 Osmo 265 mOsmo 12/03/2014 Tsh Ord6 hTSH II 1.13 uIU/mL 12/03/2014 D-Dimer [id number] D-DIMER 168 NG/ML 12/03/2014 D-Dimer [id number] COMMENT 12/03/2014 Cbc With Differential Ord2 WBC [...] Result Effective Dates Constitutional No recent illness 09/23/2018 Constitutional No [...] General 1994 Eyes conjunctiva/eyelids Overall: conjunctiva clear 07/04/2018 None Full Exam - General 1994 Eyes conjunctiva/eyelids Overall: cornea clear 07/04/2018 None Full Exam - General 1994 Eyes conjunctiva/eyelids Overall: eyelids normal 07/04/2018 None Full Exam - General 1995 Ears/Nose/Throat lips/teeth/gingiva Overall: benign lips 07/04/2018 None Full Exam - General 1995 Ears/Nose/Throat oral cavity/pharynx/larynx Overall: oral mucosa clear 07/04/2018 None Full Exam - General 1995 Respiratory respiratory effort/rhythm Overall: no retractions 07/04/2018 None Full Exam - General 1994 Respiratory respiratory effort/rhythm Overall: normal rate 07/04/2018 None Full Exam - General 1994 Cardiovascular extremities Overall: no clubbing 07/04/2018 None Full Exam - General 1995 [...] accomodation 05/21/2017 None Full Exam - General 1995 Ears/Nose/Throat lips/teeth/gingiva Overall: benign lips 05/21/2017 None [...] Procedure Codes Date THER/PROPH/DIAG INJ SC/IM CPT-4: 56545 07/17/2018 TRIAMCINOLONE ACET INJ NOS CPT-4: J3301 07/17/2018 THER/PROPH/DIAG INJ SC/IM CPT-4: 58401 06/27/2017 ROCEPHIN, PER 250 MG CPT- 4: J0696 06/27/2017 IMMUNIZATION ADMIN CPT- 4: 18167 03/16/2017 FLU VAC NO PRSV 4 FLETCHER 3 YRS+ CPT-4: 34651 03/16/2017 Pneumococcal Polysaccharide Vaccine, 23-Valent, Ad CPT-4: 00831 03/16/2017 IMMUNIZATION ADMIN EACH ADD CPT-4: 19346 03/16/2017 TRIAMCINOLONE ACET INJ NOS CPT-4: J3301 01/11/2017 TRIAMCINOLONE ACET INJ NOS CPT-4: J3301 02/28/2016 Vital Signs Date Vital 09/23/2018 Blood Pressure 1: 130/78 Code: 8480-6 BMI: 41.8 Code: 70619-0 Heart Rate 1: 72 bpm Height: 5'6" SpO2: 96% Weight: 259 lbs 08/26/2018 Blood Pressure 1: 126/72 Code: 8480-6 Heart Rate 1: 68 bpm Height: 5'6" SpO2: 94% Weight: 08/12/2018 Blood Pressure 1: 124/68 Code: 8480-6 BMI: 38.4 Code: 91836-8 Heart Rate 1: 79 bpm Height: 5'6" SpO2: 94% Weight: 238 lbs 07/17/2018 Blood Pressure 1: 126/72 Code: 8480-6 BMI: 38.6 Code: 76240-5 Heart Rate 1: 85 bpm Height: 5'6" SpO2: 95% Temperature: 36.9 (C) / 98.4 (F) Weight: 239 lbs 07/04/2018 Blood Pressure 1: 132/76 Code: 8480-6 Heart Rate 1: 80 bpm Height: SpO2: 97% Weight: 06/19/2018 Blood Pressure 1: 124/74 Code: 8480-6 BMI: 38.6 Code: 88424-7 Heart Rate 1: 85 bpm Height: 5'6" SpO2: 95% Weight: 239 lbs 04/24/2018 Blood Pressure 1: 128/74 Code: 8480-6 BMI: 37.8 Code: 79119-2 Heart Rate 1: 107 bpm Height: 5'6" SpO2: 98% Weight: 234 lbs 04/17/2018 Blood Pressure 1: 120/64 Code: 8480-6 BMI: 37.8 Code: 07152-8 Heart Rate 1: 84 bpm Height: 5'6" SpO2: 96% Weight: 234 lbs 03/14/2018 Blood Pressure 1: 140/82 Code: 8480-6 BMI: 37.8 Code: 19115-6 Heart Rate 1: 85 bpm Height: 5'6" SpO2: 98% Weight: 234 lbs 02/27/2018 Blood Pressure 1: 142/68 Code: 8480-6 BMI: 36.5 Code: 46287-5 Heart Rate 1: 84 bpm Height: 5'6" SpO2: 97% Weight: 226 lbs 12/19/2017 Blood Pressure 1: 130/86 Code: 8480-6 BMI: 35.7 Code: 44494-5 Heart Rate 1: 94 bpm Height: 5'6" Weight: 221 lbs 12/04/2017 Blood Pressure 1: 138/78 Code: 8480-6 BMI: 36.6 Code: 48811-9 Heart Rate 1: 94 bpm Height: 5'6" SpO2: 98% Weight: 227 lbs 11/20/2017 Weight: 233 lbs 09/10/2017 Blood Pressure 1: 132/86 Code: 8480-6 Heart Rate 1: 86 bpm Height: Weight: 08/14/2017 Blood Pressure 1: 120/74 Code: 8480-6 BMI: 33.9 Code: 79347-8 Heart Rate 1: 92 bpm Height: 5'6" SpO2: 94% Weight: 210 lbs 07/31/2017 Blood Pressure 1: 140/80 Code: 8480-6 BMI: 33.9 Code: 47299-6 Heart Rate 1: 96 bpm Height: 5'6" SpO2: 97% Weight: 210 lbs 06/27/2017 Blood Pressure 1: 128/80 Code: 8480-6 BMI: 33.9 Code: 10208-9 Heart Rate 1: 85 bpm Height: 5'6" [...] 1: 126/74 Code: 8480-6 BMI: 39.9 Code: 25124-8 Heart Rate 1: 79 bpm Height: 5'6" SpO2: 97% Weight: 247 lbs 01/26/2017 Blood Pressure 1: 132/74 Code: 8480-6 BMI: 37.8 Code: 01581-5 Heart Rate 1: 74 bpm Height: 5'6" SpO2: 97% Weight: 234 lbs 01/11/2017 Blood Pressure 1: 118/68 Code: 8480-6 BMI: 38.7 Code: 60066-9 Heart Rate 1: 91 bpm Height: 5'6" SpO2: 96% Weight: 240 lbs 11/30/2016 Blood Pressure 1: 132/76 Code: 8480-6 BMI: 38.3 Code: 68492-0 Heart Rate 1: 71 bpm Height: 5'6" SpO2: 92% Weight: 237 lbs 09/28/2016 Blood Pressure 1: 122/72 Code: 8480-6 BMI: 39.1 Code: 72508-2 Heart Rate 1: 88 bpm Height: 5'6" SpO2: 94% Weight: 242 lbs 08/24/2016 Blood Pressure 1: 130/87 Code: 8480-6 BMI: 41.5 Code: 12037-0 Heart Rate 1: 95 bpm Height: 5'6" Respiratory Rate: 16 bpm SpO2: 98% Temperature: 36.9 (C) / 98.5 (F) Weight: 257 lbs 07/13/2016 Blood Pressure 1: 132/84 Code: 8480-6 BMI: 42.0 Code: 12834-5 Heart Rate 1: 73 bpm Height: 5'6" SpO2: 97% Weight: 260 lbs 05/19/2016 Blood Pressure 1: 138/76 Code: 8480-6 BMI: 40.8 Code: 15709-8 Heart Rate 1: 80 bpm Height: 5'6" SpO2: 98% Weight: 253 lbs 03/16/2016 Blood Pressure 1: 122/70 Code: 8480-6 BMI: 40.4 Code: 38152-1 Heart Rate 1: 72 bpm Height: 5'6" SpO2: 98% Weight: 250 lbs 02/28/2016 Blood Pressure 1: 136/86 Code: 8480-6 BMI: 40.2 Code: 38334-6 Heart Rate 1: 87 bpm Height: 5'6" SpO2: 96% Temperature: 36.3 (C) / 97.3 (F) Weight: 249 lbs 01/13/2016 Blood Pressure 1: 120/76 Code: 8480-6 BMI: 40.4 Code: 72536-5 Heart Rate 1: 68 bpm Height: 5'6" SpO2: 97% Weight: 250 lbs 09/27/2015 Blood Pressure 1: 112/70 Code: 8480-6 BMI: 38.4 Code: 24283-2 Heart Rate 1: 76 bpm Height: 5'6" SpO2: 98% Weight: 238 lbs 08/30/2015 Blood Pressure 1: 144/82 Code: 8480-6 BMI: 39.5 Code: 72421-7 Heart Rate 1: 82 bpm Height: 5'6" SpO2: 97% Weight: 245 lbs 08/16/2015 Blood Pressure 1: 140/72 Code: 8480-6 BMI: 38.9 Code: 78545-0 Heart Rate 1: 72 bpm Height: 5'6" SpO2: 97% Weight: 241 lbs 07/15/2015 Blood Pressure 1: 128/80 Code: 8480-6 BMI: 39.3 Code: 96198-3 Heart Rate 1: 86 bpm Height: 5'6" SpO2: 98% Weight: 243 lbs 8 oz 06/16/2015 Blood Pressure 1: 146/86 Code: 8480-6 BMI: 39.6 Code: 49283-4 Heart Rate 1: 76 bpm Height: 5'6" SpO2: 97% Weight: 245 lbs 8 oz 04/02/2015 Blood Pressure 1: 132/86 Code: 8480-6 BMI: 40.7 Code: 84179-1 Heart Rate 1: 94 bpm Height: 5'6" SpO2: 98% Weight: 252 lbs 12/02/2014 Blood Pressure 1: 122/90 Code: 8480-6 BMI: 41.6 Code: 63655-1 Heart Rate 1: 77 bpm Height: 5'6" SpO2: 95% Weight: 258 lbs Functional Status No Functional Status data History of Present Illness Symptom Name Status Result Effective Date Notes Location in the epigastric area 09/23/2018 None [...] Codes Date EST. PATIENT, LEVEL IV Diagnosis: Gastro-esophageal reflux disease without esophagitis[ICD10: K21.9] Diagnosis: Pain in left knee[ICD10: M25.562] Petra Trejo MD, [facility] CPT-4: 09193 09/23/2018 22764 EST. PATIENT, LEVEL III Diagnosis: Dysuria[ICD10: R30.0] Diagnosis: Other obesity due to excess calories[ICD10: E66.09] Diagnosis: Type 2 diabetes mellitus with hyperglycemia[ICD10: E11.65] Petra Trejo MD, [facility] CPT-4: 28550 08/26/2018 34273 EST. PATIENT, LEVEL III Diagnosis: Type 2 diabetes mellitus without complications[ICD10: E11.9] Petra Trejo MD, [facility] CPT-4: 86479 08/12/2018 18093 EST. PATIENT, LEVEL III Diagnosis: Acute laryngopharyngitis[ICD10: J06.0] Diagnosis: Cough[ICD10: R05] Diagnosis: Other allergic rhinitis[ICD10: J30.89] Diagnosis: Right upper quadrant pain[ICD10: R10.11] Petra Trejo MD, [facility] CPT-4: 70286 07/17/2018 64675 EST. PATIENT, LEVEL III Diagnosis: Generalized anxiety disorder[ICD10: F41.1] Diagnosis: Major depressive disorder, single episode, moderate[ICD10: F32.1] Petra Trejo MD, [facility] CPT-4: 61866 07/04/2018 41796 EST. PATIENT, LEVEL IV Diagnosis: Generalized anxiety disorder[ICD10: F41.1] Diagnosis: Major depressive disorder, single episode, moderate[ICD10: F32.1] Diagnosis: Other insomnia[ICD10: G47.09] Petra Trejo MD, [facility] CPT-4: 76466 06/19/2018 98908 EST. PATIENT, LEVEL IV Diagnosis: Right upper quadrant pain[ICD10: R10.11] Diagnosis: Other chest pain[ICD10: R07.89] ePtra Trejo MD, [facility] CPT-4: 26542 04/24/2018 13983 EST. PATIENT, LEVEL III Diagnosis: Generalized anxiety disorder[ICD10: F41.1] Diagnosis: Major depressive disorder, recurrent, mild[ICD10: F33.0] Diagnosis: Essential (primary) hypertension[ICD10: I10] Diagnosis: Type 2 diabetes mellitus without complications[ICD10: E11.9] Petra Trejo MD, [facility] CPT-4: 71261 04/17/2018 52832 EST. PATIENT, LEVEL III Diagnosis: Localized edema[ICD10: R60.0] Diagnosis: Essential (primary) hypertension[ICD10: I10] Petra Trejo MD, [facility] CPT-4: 97684 03/14/2018 09841 EST. PATIENT, LEVEL III Diagnosis: Pain in left knee[ICD10: M25.562] Diagnosis: Other obesity due to excess calories[ICD10: E66.09] Diagnosis: Other insomnia[ICD10: G47.09] Diagnosis: Generalized anxiety disorder[ICD10: F41.1] Petra Trejo MD, [facility] CPT-4: 06055 02/27/2018 ([id number]) Miscellaneous no charge Diagnosis: Other obesity due to excess calories[ICD10: E66.09] Heidy Trejo MD, [facility] CPT-4: 64182 12/19/2017 26183 EST. PATIENT, LEVEL III Diagnosis: Pain in right foot[ICD10: M79.671] Diagnosis: Pain in right ankle and joints of right foot[ICD10: M25.571] Petra Trejo MD, [facility] CPT-4: 62434 12/04/2017 73224 EST. PATIENT, LEVEL III Diagnosis: Pain in left knee[ICD10: M25.562] Diagnosis: Type 2 diabetes mellitus without complications[ICD10: E11.9] Diagnosis: Other obesity due to excess calories[ICD10: E66.09] Petra Trejo MD, [facility] CPT-4: 18141 11/20/2017 73110 EST. PATIENT, LEVEL III Diagnosis: Pain in left knee[ICD10: M25.562] Petra Trejo MD, [facility] CPT-4: 38899 09/10/2017 45754 EST. PATIENT, LEVEL III Diagnosis: Encounter for follow-up examination after completed treatment for conditions other than malignant neoplasm[ICD10: Z09] Diagnosis: Pain in left knee[ICD10: M25.562] Petra Trejo MD, [facility] CPT-4: 99120 08/14/2017 64560 EST. PATIENT, LEVEL III Diagnosis: Pain in left knee[ICD10: M25.562] Petra Trejo MD, [facility] CPT-4: 77095 07/31/2017 57453 EST. PATIENT, LEVEL III Diagnosis: Acute laryngopharyngitis[ICD10: J06.0] Diagnosis: Other allergic rhinitis[ICD10: J30.89] Petra Trejo MD, [facility] CPT- 4: 96647 06/27/2017 34519 EST. PATIENT, LEVEL III Diagnosis: Ganglion, left hand[ICD10: M67.442] Diagnosis: Essential (primary) hypertension[ICD10: I10] Diagnosis: Generalized anxiety disorder[ICD10: F41.1] Diagnosis: Other insomnia[ICD10: G47.09] Petra Trejo MD, [facility] CPT-4: 30216 05/29/2017 62280 EST. PATIENT, LEVEL III Diagnosis: Essential (primary) hypertension[ICD10: I10] Diagnosis: Palpitations[ICD10: R00.2] Diagnosis: Generalized anxiety disorder[ICD10: F41.1] Petra Trejo MD, [facility] CPT-4: 68943 05/21/2017 01569 EST. PATIENT, LEVEL III Diagnosis: Pain in right foot[ICD10: M79.671] Petra Trejo MD, [facility] CPT-4: 90805 04/20/2017 77419 EST. PATIENT, LEVEL IV Diagnosis: Other insomnia[ICD10: G47.09] Diagnosis: Other skin changes[ICD10: R23.8] Petra Trejo MD, [facility] CPT-4: 81167 01/26/2017 62215 EST. PATIENT, LEVEL IV Diagnosis: Acute bronchitis due to other specified organisms[ICD10: J20.8] Petra Trejo MD, [facility] CPT-4: 00847 01/11/2017 ([id number]) 02644 EST. PATIENT, LEVEL IV Diagnosis: Essential (primary) hypertension[ICD10: I10] Diagnosis: Other insomnia[ICD10: G47.09] Diagnosis: Primary generalized (osteo)arthritis[ICD10: M15.0] Diagnosis: Other obesity due to excess calories[ICD10: E66.09] Claudette Trejo MD, [facility] CPT-4: 67592 11/30/2016 ([id number]) 39296 EST. PATIENT, LEVEL III Diagnosis: Other obesity due to excess calories[ICD10: E66.09] Diagnosis: Other insomnia[ICD10: G47.09] Diagnosis: Generalized anxiety disorder[ICD10: F41.1] Claudette Trejo MD, [facility] CPT-4: 78945 09/28/2016 ([id number]) 45334 EST. PATIENT, LEVEL IV Diagnosis: Generalized anxiety disorder[ICD10: F41.1] Diagnosis: Major depressive disorder, recurrent, mild[ICD10: F33.0] Diagnosis: Other obesity due to excess calories[ICD10: E66.09] Diagnosis: Other insomnia[ICD10: G47.09] Claudette Trejo MD, [facility] CPT-4: 05592 08/24/2016 ([id number]) 75800 EST. PATIENT, LEVEL III Diagnosis: Other obesity due to excess calories[ICD10: E66.09] Diagnosis: Major depressive disorder, recurrent, moderate[ICD10: F33.1] Diagnosis: Low back pain[ICD10: M54.5] Heidy Trejo MD, [facility] CPT-4: 55988 07/13/2016 32596 EST. PATIENT, LEVEL IV Diagnosis: Other muscle spasm[ICD10: M62.838] Diagnosis: Generalized anxiety disorder[ICD10: F41.1] Diagnosis: Major depressive disorder, recurrent, moderate[ICD10: F33.1] Diagnosis: Other insomnia[ICD10: G47.09] Petra Trejo MD, [facility] CPT-4: 59202 05/19/2016 ([id number]) 43136 EST. PATIENT, LEVEL III Diagnosis: Generalized anxiety disorder[ICD10: F41.1] Diagnosis: Major depressive disorder, recurrent, moderate[ICD10: F33.1] Heidy Trejo MD, [facility] CPT-4: 80118 03/16/2016 ([id number]) 20147 EST. PATIENT, LEVEL III Diagnosis: Streptococcal pharyngitis[ICD10: J02.0] Claudette Trejo MD, [facility] CPT-4: 17150 02/28/2016 ([id number]) 25366 EST. PATIENT, LEVEL III Diagnosis: Generalized anxiety disorder[ICD10: F41.1] Diagnosis: Other obesity due to excess calories[ICD10: E66.09] Heidy Trejo MD, [facility] CPT-4: 42857 01/13/2016 ([id number]) 54279 EST. PATIENT, LEVEL III Diagnosis: Generalized anxiety disorder[ICD10: F41.1] Diagnosis: Major depressive disorder, recurrent, unspecified[ICD10: F33.9] Heidy Trejo MD, [facility] CPT-4: 25009 09/27/2015 35122 EST. PATIENT, LEVEL IV Diagnosis: Chronic pain syndrome[ICD10: G89.4] Diagnosis: Other obesity due to excess calories[ICD10: E66.09] Diagnosis: Essential (primary) hypertension[ICD10: I10] Diagnosis: Generalized anxiety disorder[ICD10: F41.1] Diagnosis: Excessive and frequent menstruation with regular cycle[ICD10: N92.0] Diagnosis: Pain in right knee[ICD10: M25.561] Petra Trejo MD, [facility] CPT-4: 25645 08/30/2015 85223 EST. PATIENT, LEVEL IV Diagnosis: Palpitations[ICD10: R00.2] Diagnosis: Other obesity due to excess calories[ICD10: E66.09] Petra Trejo MD, [facility] CPT-4: 68890 08/16/2015 ([id number]) 57663 EST. PATIENT, LEVEL IV Diagnosis: Pain in right knee[ICD10: M25.561] Diagnosis: Primary generalized (osteo)arthritis[ICD10: M15.0] Diagnosis: Acute maxillary sinusitis, unspecified[ICD10: J01.00] Heidy Trejo MD, [facility] CPT-4: 61876 07/15/2015 ([id number]) 98544 EST. PATIENT, LEVEL IV Diagnosis: Primary generalized (osteo)arthritis[ICD10: M15.0] Diagnosis: Restless legs syndrome[ICD10: G25.81] Diagnosis: Chronic pain syndrome[ICD10: G89.4] Heidy Trejo MD, [facility] CPT- 4: 96958 06/16/2015 ([id number]) 74870 EST. PATIENT, LEVEL III Diagnosis: Primary generalized (osteo)arthritis[ICD10: M15.0] Diagnosis: Varicose veins of bilateral lower extremities with pain[ICD10: I83.813] Claudette Trejo MD, [facility] CPT-4: 45127 04/02/2015 ([id number]) OFFICE VISIT, NEW - LEVEL 3 Diagnosis: Osteoarthritis[ICD9: 715.90] Diagnosis: ABNORMAL WEIGHT GAIN[ICD9: 783.1] Diagnosis: Superficial thrombophlebitis[ICD9: 451.9] [facility] CPT-4: 06103 12/02/2014 Plan of Care Planned Activity Notes Codes Status Date Care Plan: Referral Order SNOMED-CT : [id number] Pending 09/24/2018 Visit Plan: Esophageal Reflux - [...] for a second opinion 09/23/2018 Appointment: Petra Rvias WPtel: [phone] [facility] (30 min) Complex 09/23/2018 Patient Education: Patient [...] control. 08/26/2018 Appointment: Petra Rivas WPtel: [phone] [facility] (30 min) Complex 08/26/2018 Patient Education: [...] control. 08/12/2018 [phone] [facility] 08/12/2018 Patient Education: [...] indicated 07/17/2018 Appointment: Petra Rivas WPtel: [phone] [facility] (30 min) Complex 07/17/2018 Patient Education: [...] current medications. 07/04/2018 App[facility]ment[phone] ([facility] 07/04/2018 Patient Education: Patient [...] patient. 06/19/2018 Appointment: [phone] [place] (15 min) Moderate 06/19/2018 Patient [...] she is to follow up with her political advisor 04/24/2018 Appointment: Petra Rivas WPtel: [phone] [facility] [place] (30 min) Complex 04/24/2018 Patient Education: [...] control. 04/17/2018 Appointment: [phone] [place] (15 min) Moderate 04/17/2018 Patient [...] peripheral edema. 03/14/2018 Appointment: [facility] [phone] [facility] (15 min) Moderate 03/14/2018 Patient Education: [...] ortho 02/27/2018 Appointment: [phone] [place] ([facility] min) Complex 02/27/2018 Patient Education: [...] not improve. 12/04/2017 Appointment: Pet[facility] Rivas [facility]Ptel: [facility] [place] (15 min) Moderate 12/04/2017 Patient [...] glucose control. 11/20/2017 Appointment: Petra Rivas WPtel: [facility] [place] (15 min) Moderate 11/20/2017 Patient [...] not improve. 09/10/2017 Appointment: Pet[facility] Rivas WPtel: [facility] [place] (15 min) Moderate 09/10/2017 Patient [...] not improve. 08/14/2017 Appointment: Petra Rivas WPtel: [address] [place] [address] [place] (30 min) Complex 08/14/2017 Patient Education: Patient Medication Summary Completed 08/14/2017 Appointment: Petra Rivas WPtel: [address] [place] [address] [place] (15 min) Moderate 08/01/2017 Visit Plan: Knee pain - pt is to use RICE - Rest, Ice, Compression, Elevation - pt is to use crutches as directed - The pt is to use prn antiinflammatories to manage acute pain. The patient is to call the office if the pain is worsening or does not improve. 07/31/2017 Appointment: Petra Rivas WPtel: [address] [place] [address] [place] (30 min) Complex 07/31/2017 Patient Education: Patient Medication Summary Completed 07/31/2017 Care Plan: X-RAY EXAM OF KNEE 3 LOINC : 60360-1 Pending 07/31/2017 Visit Plan: URI - Pt [...] spray. 06/27/2017 Appointment: [phone] (15 min) Moderate 06/27/2017 Patient Education: Patient Medication Summary Completed 06/27/2017 Referral: Jignesh Quinn [facility] Patient informed. Referral info faxed. [...] Dr. Quinn 05/29/2017 Appointment: Petra Rivas WPtel: [facility] (15 min) Moderate 05/29/2017 Patient Education: Patient Medication Summary Completed 05/29/2017 Care Plan: Referral Order SNOMED-CT : [id number] Pending 05/29/2017 Appointment: Pet[facility] Rivas WPtel[facility] ([facility] min) Moderate 05/28/2017 Visit Plan: [...] concerns. 05/21/2017 Appointment: Petra Rivas WPtel: [phone] [facility] (15 min) Moderate 05/21/2017 Patient Education: Patient Medication Summary Completed 05/21/2017 Visit Plan: Right heel pain - will send RX, pt is to do stretches as directed - The pt is to use prn antiinflammatories to manage acute pain. The patient is to call the office if the pain is worsening or does not improve. 04/20/2017 Appointment: Petra Rivas WPtel: [facility] (30 min) Complex 04/20/2017 Patient Education: Patient Medication Summary Completed 04/20/2017 Appointment: Petra Rivas WPtel: [phone] [facility] (30 min) Complex 03/29/2017 Patient Education: Patient Medication Summary Completed 03/16/2017 Referral: Maycol Quijano Referral Initiated 02/08/2017 Care Plan: Referral Order SNOMED-CT : [id number] Pending 01/28/2017 Visit Plan: Insomnia - Pt [...] concerns. 01/26/2017 Appointment: Petra Rivas WPtel: [phone] [facility] (30 min) Complex 01/26/2017 Patient Education: [...] worsen. 01/11/2017 Appointment: [phone] (15 min) Moderate 01/11/2017 Patient Education: [...] use. 11/30/2016 Appointment: [phone] [facility] (15 min) Moderate 11/30/2016 Patient Education: Patient Medication Summary Completed 11/30/2016 Patient Education: Obesity Completed 11/30/2016 Care Plan: BMI Above normal followup SELF-MGMT EDUC & TRAIN 1 PT Pending 11/30/2016 Visit Plan: Xkljozs-zrdhzdmzgb-vloeojzm with increase in cymbalta- no changes Insomnia-RX for belsomra provided and instructed on use Obesity- patient down 15#-no changes-continue diet/exercise-follow up in 2 months 09/28/2016 Appointment: Claud[phone] [phone] (15 min) Moderate 09/28/2016 Patient Education: Patient Medication Summary Completed 09/28/2016 Patient Education: Obesity Completed 09/28/2016 Care Plan: BMI Above normal followup SELF-MGMT EDUC & TRAIN 1 PT Pending 09/28/2016 Visit Plan: Tfxzuys-gdevgnskul-vsxqflkl-increase cymbalta to 60mg daily. Increase xanax as [...] insomnia/anxiety 08/24/2016 Appointment: Claudette Savage WPtel: [phone] [phone] [place] (15 min) Moderate 08/24/2016 Patient [...] improving. 07/13/2016 Appointment: Heidy Trejo WPtel: [phone] [facility] [place] (15 min) Moderate 07/13/2016 Patient Education: [...] insomnia. 05/19/2016 Appointment: Petra Rivas WPtel: [phone] [facility] (30 min) Complex 05/19/2016 Patient Education: [...] patient. 03/16/2016 Appointment: Heidy Trejo WPtel: [phone] [facility] (15 min) Moderate 03/16/2016 Patient Education: Patient [...] the swab. 02/28/2016 Appointment: Claudette Savage WPtel: [phone] (10 min) Simple 02/28/2016 Patient Education: [...] lexapro 01/13/2016 Appointment: Heidy Trejo WPtel: [phone] [facility] (15 min) Moderate 01/13/2016 Patient Education: Patient [...] 09/27/2015 Care Plan: Referral Order SNOMED-CT : [id number] Pending 08/31/2015 Visit Plan: Anxiety - the [...] pain symptoms. 07/15/2015 Appointment: Heidy Trejo WPtel: [address] [place], [place] [address] (15 min) Moderate 07/15/2015 Patient Education: Patient [...] vein clinic 04/02/2015 Appointment: Claudette Savage WPtel: [address] [place], [place] [phone] (15 min) Moderate 04/02/2015 Patient Education: [...] 12/02/2014 Referral: Belle Hoffman WPtel: [facility] they will call and set the appt with her Initiated Referral: Justo Lemus Referral Initiated Referral: Maycol Quijano Referral Initiated Referral: Belle Hoffman WPtel: [facility] Referral [facility]: [facility] [place] [facility] Initiated Instructions Comment Increase Cymbalta from 30 mg/day to 60 mg/day Start Victoza 0.6 mg/day for one week, then increase to 1.2 mg/day for one week, then increase to 1.8 mg/day Patient states understanding of administration instructions. Refill Xanax 1 mg at night for anxiety . Kbdixkj-pldujrhiut-lkcjjxeu-increase cymbalta to 60mg daily. Increase xanax as [...] Insomnia-increase xanax as directed for insomnia/anxiety . Muscle spasms - Will check labs, [...] allow for greater blood glucose control. . Left knee pain - ongoing - [...] today - will culture the swab. . Anxiety and Depression- the patient has [...] she is to follow up with her political advisor glucosamine and chondroiton - joint ease, joint [...] rx for cymbalta - callif not improving. breathing treatments - 4 times a day [...] - will refer to Dr. Quinn . Hospital follow up - This was [...] pain is worsening or does not improve. We will check a [facility] lab today. [...] Dr. Lemus for a second opinion . Arthritis- occasionally uncontrolled symptoms- recommend pt [...] 2 pills twice daily. stop lexapro . UTI - pt with positive urinalysis [...] with any changes, questions, or concerns. . Anxiety and Depression [...] been appropriately prescribed for this patient. . Arthritis- occasionally uncontrolled symptoms- recommend pt [...] appropriately prescribed for this patient. BELSOMRA . Mybdywe-vtqjjwnakd-jmbwzixp with increase in cymbalta-no changes Insomnia-RX for [...]
[2018-10-14] MEDS ORDERED: HURRICAINE EXT TUBE (BENZOCAINE) XX PRN (12:45)
--- OUTSIDE RECORDS SUMMARY | 2018-10-14 12:45 | XMS REPORT | CCD ---
Author Author [place] Organization [facility] Address [address] [place] [address] Phone Care Team Providers Care Edge Kitter Name Role Phone PP Unavailable CCM Unavailable Summary Purpose Interface Exchange Insurance Providers Payer name Policy type / Coverage type Covered alliance party ID Effective Begin Date Effective End Date [facility] Commercial Insurance [id number] Unknown Family history Brother Diagnosis Age At [...] Description Effective Dates Tobacco history SNOMED CT: 3926763 Quit less than 5 years ago 04/02/2015 Alcohol history Unknown occasionally drinks alcohol 04/02/2015 Marital status Unknown Manuel Vitale 12/02/2014 Number of children Unknown 3 12/02/2014 Allergies, Adverse Reactions, Alerts Substance Reaction Codes Entered Date Inactivated Date Status * NO KNOWN FOOD ALLERGIES Unknown 12/02/2014 No Inactive Date Active Penicillin Unknown 12/02/2014 No Inactive Date Active tramadol RxNorm: 32263 12/02/2014 No Inactive Date Active Past Medical [...] Fill Instructions hydrochlorothiazide 25 mg tablet RxNorm: 178253 1 TABLET(S) PO DAILY 09/19/2018 12/17/2018 Active Saxenda 3 mg/0.5 mL (18 mg/3 mL) subcutaneous pen injector RxNorm: 4599143 1.8 Milligram(s) SQ daily 08/28/2018 12/25/2018 Active disp qty sufficient- [place] approved Saxenda 3 mg/0.5 mL (18 mg/3 mL) subcutaneous pen injector RxNorm: 9028139 1.8 Milligram(s) SQ daily 08/28/2018 08/27/2018 Inactive disp qty sufficient Saxenda 3 mg/0.5 mL (18 mg/3 mL) subcutaneous pen injector RxNorm: 4149249 1.8 Milliliter(s) SQ daily 08/27/2018 08/27/2018 Inactive disp qty sufficient Xanax 1 mg tablet RxNorm: 224464 1-2 Tablet(s) PO QHS as needed insomnia 08/26/2018 11/23/2018 Active metformin 500 mg tablet RxNorm: 146287 1 Tablet(s) PO BID 08/26/2018 12/23/2018 Active Keflex 500 mg capsule RxNorm: 782549 1 Capsule(s) PO TID 08/26/2018 09/01/2018 Inactive Protonix 40 mg tablet,delayed release RxNorm: 966781 1 TABLET(S) PO DAILY 08/12/2018 12/09/2018 Active metformin 500 mg tablet RxNorm: 406629 1 Tablet(s) PO daily 08/12/2018 08/25/2018 Inactive Lasix 20 mg tablet RxNorm: 1 TABLET(S) PO DAILY NEEDED EDEMA 08/06/2018 10/04/2018 Active potassium chloride ER 10 mEq tablet,extended release RxNorm: 353467 1 TABLET(S) PO DAILY NEEDED TO TAKE WHEN YOU TAKE THE LASIX 08/06/2018 10/04/2018 Active Zorvolex 35 mg capsule RxNorm: 7058284 TAKE 1 CAPSULE BY MOUTH THREE (3) TIMES DAILY 08/02/2018 11/29/2018 Active prednisone 20 mg tablet RxNorm: 218605 Tablet(s) PO 07/17/2018 No Stop Date Active 20mg tonight then starting tomorrow: 60,60,40,40,20,20,10,10 Remeron 15 mg tablet RxNorm: 113371 1/2 Tablet(s) PO QHS 07/17/2018 2019 Active Tamiflu 75 mg capsule RxNorm: 502202 1 Capsule(s) PO BID 07/17/2018 07/21/2018 Inactive Kenalog 40 mg/mL suspension for injection RxNorm: 8479168 Milliliter(s) Inj 07/17/2018 07/17/2018 Inactive Lexapro 20 mg tablet RxNorm: 241172 1 TABLET(S) PO DAILY 07/15/2018 11/11/2018 Active potassium chloride ER 10 mEq tablet,extended release RxNorm: 265491 1 Tablet(s) PO daily as needed to take when you take the lasix 07/04/2018 08/02/2018 Inactive Lasix 20 mg tablet RxNorm: 1 Tablet(s) PO daily as needed edema 07/04/2018 08/02/2018 Inactive Cymbalta 30 mg capsule,delayed release RxNorm: 163477 1 CAPSULE(S) PO DAILY TO BE TAKEN WITH 60MG TO=90MG 07/01/2018 07/14/2018 Inactive hydrochlorothiazide 25 mg tablet RxNorm: 657864 1 TABLET(S) PO DAILY 06/27/2018 09/18/2018 Inactive Remeron 15 mg tablet RxNorm: 212133 1/2 Tablet(s) PO QHS 06/20/2018 07/16/2018 Inactive Lasix 20 mg tablet RxNorm: 612335 1 Tablet(s) PO daily 06/19/2018 06/21/2018 Inactive potassium chloride ER 10 mEq tablet,extended release RxNorm: 706300 1 Tablet(s) PO daily 06/19/2018 07/03/2018 Inactive Lexapro 20 mg tablet RxNorm: 558156 1 Tablet(s) PO daily 06/19/2018 07/14/2018 Inactive gabapentin 300 mg capsule RxNorm: 654772 1 CAPSULE(S) PO TID 06/14/2018 08/12/2018 Inactive Ambien 10 mg tablet RxNorm: 545716 1 Tablet(s) PO QHS as needed insomnia 06/10/2018 09/07/2018 Inactive Cymbalta 30 mg capsule,delayed release RxNorm: 542636 1 Capsule(s) PO daily 06/03/2018 06/02/2018 Inactive Cymbalta 30 mg capsule,delayed release RxNorm: 763226 1 Capsule(s) PO daily to be taken with 60mg to=90mg 06/03/2018 06/30/2018 Inactive Protonix 40 mg tablet,delayed release RxNorm: 788643 1 TABLET(S) PO DAILY 05/20/2018 08/11/2018 Inactive gabapentin 300 mg capsule RxNorm: 101430 1 CAPSULE(S) PO TID 05/15/2018 06/13/2018 Inactive Protonix 40 mg tablet,delayed release RxNorm: 337863 1 Tablet(s) PO daily 04/24/2018 05/19/2018 Inactive Zorvolex 35 mg capsule RxNorm: 2756878 TAKE 1 CAPSULE BY MOUTH THREE (3) TIMES DAILY 04/22/2018 08/01/2018 Inactive hydrochlorothiazide 25 mg tablet RxNorm: 995516 1 TABLET(S) PO DAILY 04/08/2018 06/26/2018 Inactive Zorvolex 35 mg capsule RxNorm: 6455045 TAKE 1 CAPSULE BY MOUTH THREE (3) TIMES DAILY 03/27/2018 04/21/2018 Inactive gabapentin 300 mg capsule RxNorm: 175437 1 CAPSULE(S) PO TID 03/25/2018 04/14/2018 Inactive hydrochlorothiazide 25 mg tablet RxNorm: 052305 1 Tablet(s) PO daily 03/14/2018 04/07/2018 Inactive Victoza 2-Marek 0.6 mg/0.1 mL (18 mg/3 mL) subcutaneous pen injector RxNorm: 125888 Milligram(s) INJECT 1.8 MG SUB-Q ONCE DAILY 02/27/2018 08/20/2019 Active qty sufficient atorvastatin 20 mg tablet RxNorm: 505740 1 Tablet(s) PO daily 02/27/2018 05/22/2019 Active Cymbalta 60 mg capsule,delayed release RxNorm: 005897 TAKE 1 CAPSULE BY MOUTH DAILY 02/27/2018 02/26/2018 Inactive Cymbalta 60 mg capsule,delayed release RxNorm: 854467 1 Capsule(s) PO daily TAKE 1 CAPSULE BY MOUTH DAILY 02/27/2018 07/14/2018 Inactive gabapentin 300 mg capsule RxNorm: 131065 1 Capsule(s) PO TID 02/27/2018 03/24/2018 Inactive Xanax 1 mg tablet RxNorm: 551807 1-2 Tablet(s) PO QHS as needed insomnia 02/27/2018 05/27/2018 Inactive meloxicam 7.5 mg tablet RxNorm: 572942 1 Tablet(s) PO daily 1 TABLET(S) PO DAILY 02/27/2018 04/14/2018 Inactive Ambien 10 mg tablet RxNorm: 900036 1 Tablet(s) PO QHS as needed insomnia 02/27/2018 05/25/2018 Inactive atorvastatin 20 mg tablet RxNorm: 088238 1 Tablet(s) PO daily 02/05/2018 02/26/2018 Inactive atorvastatin 20 mg tablet RxNorm: 582080 1 Tablet(s) PO daily 02/05/2018 02/04/2018 Inactive meloxicam 7.5 mg tablet RxNorm: 527813 1 TABLET(S) PO DAILY 02/01/2018 02/26/2018 Inactive oxycodone 15 mg tablet RxNorm: 3099435 1 Tablet(s) PO QID as needed 01/07/2018 02/19/2018 Inactive lactulose 20 gram/30 mL oral solution RxNorm: 697741 15-30 Milliliter(s) PO BID as needed 12/31/2017 02/20/2018 Inactive meloxicam 7.5 mg tablet RxNorm: 342672 1 TABLET(S) PO DAILY 12/13/2017 01/31/2018 Inactive Zorvolex 35 mg capsule RxNorm: 3225468 1 Capsule(s) PO TID 12/13/2017 02/20/2018 Inactive Ambien 10 mg tablet RxNorm: 370872 1 Tablet(s) PO QHS as needed insomnia 12/04/2017 02/26/2018 Inactive oxycodone 15 mg tablet RxNorm: 3151382 1 Tablet(s) PO QID as needed 12/04/2017 01/06/2018 Inactive prednisone 20 mg tablet RxNorm: 737588 2 Tablet(s) PO daily 12/04/2017 12/08/2017 Inactive Victoza 2-Marek 0.6 mg/0.1 mL (18 mg/3 mL) subcutaneous pen injector RxNorm: 322854 Milligram(s) INJECT 1.8 MG SUB-Q ONCE DAILY 11/20/2017 02/26/2018 Inactive meloxicam 7.5 mg tablet RxNorm: 298547 1 Tablet(s) PO daily 11/20/2017 12/12/2017 Inactive phentermine 37.5 mg tablet RxNorm: 779787 1 Tablet(s) PO daily 11/20/2017 12/19/2017 Inactive Ambien 10 mg tablet RxNorm: 983087 1 Tablet(s) PO QHS as needed insomnia 11/20/2017 12/18/2017 Inactive Xanax 1 mg tablet RxNorm: 193928 1.5 Tablet(s) PO QHS as needed insomnia 11/20/2017 02/26/2018 Inactive hydrocodone 7.5 mg-acetaminophen 325 mg tablet RxNorm: 621830 1 Tablet(s) PO TID as needed 11/16/2017 01/06/2018 Inactive Cymbalta 60 mg capsule,delayed release RxNorm: 710273 TAKE 1 CAPSULE BY MOUTH DAILY 11/02/2017 02/26/2018 Inactive Xanax 1 mg tablet RxNorm: 464693 1 Tablet(s) PO BID PRN as needed anxiety 10/04/2017 11/19/2017 Inactive Victoza 2-Marek 0.6 mg/0.1 mL (18 mg/3 mL) subcutaneous pen injector RxNorm: 693468 INJECT 1.8 MG SUB-Q ONCE DAILY 10/04/2017 11/19/2017 Inactive hydrocodone 7.5 mg-acetaminophen 325 mg tablet RxNorm: 159974 1 Tablet(s) PO TID as needed 09/17/2017 11/15/2017 Inactive hydrocodone 7.5 mg-acetaminophen 325 mg tablet RxNorm: 023727 1 Tablet(s) PO TID as needed 09/10/2017 09/16/2017 Inactive prednisone 10 mg tablet RxNorm: 398825 Tablet(s) PO 09/10/2017 11/13/2017 Inactive 6,5,4,3,2,1 Zorvolex 35 mg capsule RxNorm: 7241583 1 Capsule(s) PO TID 09/07/2017 11/13/2017 Inactive Ambien 10 mg tablet RxNorm: 350019 1 Tablet(s) PO QHS as needed insomnia 08/29/2017 11/19/2017 Inactive Zorvolex 35 mg capsule RxNorm: 5332167 1 Capsule(s) PO TID 08/28/2017 09/06/2017 Inactive Zorvolex 35 mg capsule RxNorm: 9900601 1 Capsule(s) PO TID 08/13/2017 08/27/2017 Inactive Zorvolex 35 mg capsule RxNorm: 7532039 1 Capsule(s) PO TID 08/13/2017 08/12/2017 Inactive prednisone 20 mg tablet RxNorm: 437997 2 Tablet(s) PO daily 07/31/2017 08/04/2017 Inactive hydrocodone 7.5 mg-acetaminophen 325 mg tablet RxNorm: 918052 1 Tablet(s) PO TID as needed 07/31/2017 09/09/2017 Inactive Zorvolex 35 mg capsule RxNorm: 3817140 1 Capsule(s) PO TID as needed 07/31/2017 11/13/2017 Inactive ceftriaxone 500 mg solution for injection RxNorm: 9821982 1 Milliliter(s) Inj 06/27/2017 06/27/2017 Inactive Keflex 500 mg capsule RxNorm: 834704 1 Capsule(s) PO TID 06/27/2017 07/03/2017 Inactive Ambien 10 mg tablet RxNorm: 719824 1 Tablet(s) PO daily 05/29/2017 08/25/2017 Inactive tramadol 50 mg tablet RxNorm: 524043 1 Tablet(s) PO TID as needed 05/29/2017 07/27/2017 Inactive Xanax 1 mg tablet RxNorm: 442152 1 Tablet(s) PO BID PRN as needed anxiety 05/21/2017 10/03/2017 Inactive alprazolam 1 mg tablet RxNorm: 708357 1 Tablet(s) PO BID as needed 05/21/2017 06/19/2017 Inactive Celebrex 200 mg capsule RxNorm: 791847 1 CAPSULE(S) PO BID 05/04/2017 11/05/2017 Inactive prednisone 20 mg tablet RxNorm: 883765 2 Tablet(s) PO daily 04/20/2017 04/24/2017 Inactive Ambien 10 mg tablet RxNorm: 724968 Tablet(s) PO 04/20/2017 05/28/2017 Inactive hydrocodone 5 mg-acetaminophen 325 mg tablet RxNorm: 561900 1 Tablet(s) PO QID as needed 04/20/2017 08/01/2017 Inactive Cymbalta 60 mg capsule,delayed release RxNorm: 584680 1 Capsule(s) PO daily 04/20/2017 02/26/2018 Inactive Victoza 2-Marek 0.6 mg/0.1 mL (18 mg/3 mL) subcutaneous pen injector RxNorm: 199460 INJECT 1.8 MG SUB-Q ONCE DAILY 03/26/2017 09/21/2017 Inactive diazepam 2 mg tablet RxNorm: 554920 1 Tablet(s) PO QHS as needed insomnia 01/28/2017 05/07/2017 Inactive Victoza 2-Marek 0.6 mg/0.1 mL (18 mg/3 mL) subcutaneous pen injector RxNorm: 698152 1.8 Milligram(s) SQ daily 01/26/2017 03/25/2017 Inactive dispense quantity sufficient Tussionex Pennkinetic ER 10 mg-8 mg/5 mL suspension,extended release RxNorm: 6046355 5 Milliliter(s) PO BID 01/11/2017 01/15/2017 Inactive Xanax 1 mg tablet RxNorm: 661042 1 Tablet(s) PO BID PRN as needed anxiety 01/11/2017 05/20/2017 Inactive Zithromax Z-Marek 250 mg tablet RxNorm: 263162 1 Tablet(s) PO UD 01/11/2017 01/15/2017 Inactive zpack albuterol sulfate 2.5 mg/3 mL (0.083 %) solution for nebulization RxNorm: 977171 3 Milliliter(s) INH UD 01/11/2017 11/13/2017 Inactive prednisone 20 mg tablet RxNorm: 541344 2 Tablet(s) PO daily 01/11/2017 01/15/2017 Inactive Kenalog 40 mg/mL suspension for injection RxNorm: 2297707 1.5 Milliliter(s) Inj 01/11/2017 01/11/2017 Inactive Celebrex 200 mg capsule RxNorm: 401872 1 Capsule(s) PO BID 11/30/2016 02/27/2017 Inactive Ambien 5 mg tablet RxNorm: 744875 1 Tablet(s) PO HS PRN 11/30/2016 08/07/2017 Inactive trazodone 50 mg tablet RxNorm: 595136 1/2 to 1 Tablet(s) PO QHS 10/13/2016 10/12/2016 Inactive trazodone 50 mg tablet RxNorm: 208815 1/2 to 1 Tablet(s) PO QHS 10/13/2016 11/29/2016 Inactive Belsomra 10 mg tablet RxNorm: 3668682 1 Tablet(s) PO QHS 09/28/2016 11/29/2016 Inactive may increase to 20mg if 10mg not effective Cymbalta 60 mg capsule,delayed release RxNorm: 462311 1 Capsule(s) PO daily 08/24/2016 03/21/2017 Inactive Xanax 1 mg tablet RxNorm: 979891 1 Tablet(s) PO BID PRN as needed anxiety 08/24/2016 01/10/2017 Inactive Victoza 2-Marek 0.6 mg/0.1 mL (18 mg/3 mL) subcutaneous pen injector RxNorm: 870739 Milligram(s) SQ 08/24/2016 08/23/2016 Inactive Victoza 2-Marek 0.6 mg/0.1 mL (18 mg/3 mL) subcutaneous pen injector RxNorm: 668122 1.8 Milligram(s) SQ 08/24/2016 01/25/2017 Inactive Vitamin D2 50,000 unit capsule RxNorm: 892660 1 Capsule(s) PO QW 07/13/2016 10/10/2016 Inactive Cymbalta 30 mg capsule,delayed release RxNorm: 940685 1 Capsule(s) PO daily 07/13/2016 08/23/2016 Inactive Belviq XR 20 mg tablet,extended release RxNorm: 8180377 1 Tablet(s) PO daily 05/30/2016 05/29/2016 Inactive prednisone 20 mg tablet RxNorm: 920738 2 Tablet(s) PO daily 05/30/2016 06/03/2016 Inactive prednisone 20 mg tablet RxNorm: 226410 2 Tablet(s) PO daily 05/30/2016 05/29/2016 Inactive Belviq XR 20 mg tablet,extended release RxNorm: 3857138 1 Tablet(s) PO daily 05/30/2016 06/28/2016 Inactive cyclobenzaprine 5 mg tablet RxNorm: 097301 1-2 Tablet(s) PO TID as needed 05/19/2016 05/23/2016 Inactive metoprolol succinate ER 25 mg tablet,extended release 24 hr RxNorm: 901836 1 Tablet(s) PO QPM 04/10/2016 04/13/2016 Inactive metoprolol succinate ER 25 mg tablet,extended release 24 hr RxNorm: 023841 1 Tablet(s) PO QPM 04/10/2016 04/09/2016 Inactive escitalopram 10 mg tablet RxNorm: 969661 1 Tablet(s) PO daily 03/16/2016 07/12/2016 Inactive estradiol 1 mg tablet RxNorm: 192396 1 Tablet(s) PO every other day 03/16/2016 05/15/2016 Inactive Kenalog 40 mg/mL suspension for injection RxNorm: 9643872 Milliliter(s) Inj 02/28/2016 02/28/2016 Inactive Zithromax Z-Marek 250 mg tablet RxNorm: 442510 1 Tablet(s) PO UD 02/28/2016 03/03/2016 Inactive zpack Lexapro 10 mg tablet RxNorm: 045505 1 Tablet(s) PO daily 09/27/2015 02/27/2016 Inactive Lexapro 10 mg tablet RxNorm: 929774 1 Tablet(s) PO daily 08/30/2015 09/26/2015 Inactive Vimovo 500 mg-20 mg tablet,immediate and delay release RxNorm: 057788 1 Tablet(s) PO BID as needed for pain 08/30/2015 09/26/2015 Inactive azithromycin 250 mg tablet RxNorm: 190498 1 Tablet(s) PO UD 2 pills on day #1, then one pill daily x 4 days 07/15/2015 01/12/2016 Inactive hydrocodone 10 mg-acetaminophen 325 mg tablet RxNorm: 046054 1 Tablet(s) PO QID 06/16/2015 01/12/2016 Inactive pramipexole 0.5 mg tablet RxNorm: 888616 1 Tablet(s) PO QPM 06/16/2015 07/14/2015 Inactive Celebrex 200 mg capsule RxNorm: 438601 1 Capsule(s) PO daily 05/03/2015 05/02/2015 Inactive Celebrex 200 mg capsule RxNorm: 084423 1 Capsule(s) PO daily 05/03/2015 01/12/2016 Inactive hydrocodone 7.5 mg-acetaminophen 325 mg tablet RxNorm: 052796 1 Tablet(s) PO Q6 PRN 05/03/2015 06/15/2015 Inactive Mobic 15 mg tablet RxNorm: 130179 1 Tablet(s) PO daily 04/02/2015 05/02/2015 Inactive hydrocodone 7.5 mg-acetaminophen 325 mg tablet RxNorm: 349626 1 Tablet(s) PO Q6 PRN 04/02/2015 05/02/2015 Inactive hydrocodone 5 mg-acetaminophen 325 mg tablet RxNorm: 043310 1 Tablet(s) PO Q6 as needed 12/11/2014 04/01/2015 Inactive Pennsaid 1.5 % topical drops RxNorm: 255255 40 Drop(s) TOP QID as needed 12/07/2014 02/04/2015 Inactive Apply 40 drops to each knee joint 4 times per day as needed for osteoarthritis pain estradiol 1 mg tablet RxNorm: 265287 1 Tablet(s) PO QHS No Start Date 03/15/2016 Inactive Xanax 0.5 mg tablet RxNorm: 664767 1 Tablet(s) PO Q6 as needed anxiety No Start Date 08/23/2016 Inactive Tylenol Extra Strength 500 mg tablet RxNorm: 656315 3 Tablet(s) PO BID after breakfast and after lunch No Start Date 01/12/2016 Inactive lactulose 20 gram/30 mL oral solution RxNorm: 364079 15-30 Milliliter(s) PO BID as needed No Start Date 12/30/2017 Inactive hydrocodone 5 mg-acetaminophen 325 mg tablet RxNorm: 287872 1 Tablet(s) PO Q6 as needed No Start Date 12/10/2014 Inactive Phenergan-Codeine syrup RxNorm: 5-10 Milliliter(s) PO QID as needed No Start Date 11/13/2017 Inactive ibuprofen 200 mg capsule RxNorm: 103434 4 Capsule(s) PO QID as needed No Start Date 04/01/2015 Inactive Medication Administered Medication Codes Instructions Start Date Status Kenalog 40 mg/mL suspension for injection RxNorm: 8086422 Milliliter 07/17/2018 No longer Active ceftriaxone 500 mg solution for injection RxNorm: 7185415 1Milliliter 06/27/2017 No longer Active Kenalog 40 mg/mL suspension for injection RxNorm: 8750126 1.5Milliliter 01/11/2017 No longer Active Kenalog 40 mg/mL suspension for injection RxNorm: 9420079 Milliliter 02/28/2016 No longer Active Immunizations Vaccine [...] sent to ref lab 08/27/2018 Influenza A+B Wic063 Influ A+B Pos Influenza A 07/17/2018 %Hba1C Mtu777 % HbA1c 20083- 6 6.7 % 11/20/2017 %Hba1C Ldr404 Gluc Ave 146 mg/dL 11/20/2017 Free T4 Jdt300 FREE T4 0.76 ng/dL 05/21/2017 Tsh Ord6 hTSH II 1.27 uIU/mL 05/21/2017 Comp Metabolic Meb709 NA 140 mEq/L 05/21/2017 Comp Metabolic Erg193 K 3.9 mEq/L 05/21/2017 Comp Metabolic Qar648 CL 101 mEq/L 05/21/2017 Comp Metabolic Wow785 CO2 28.0 mEq/L 05/21/2017 Comp Metabolic Gjs494 ANION GAP 15 05/21/2017 Comp Metabolic Hio017 GLUCOSE 155 mg/dL 05/21/2017 Comp Metabolic Ado103 Creat 0.7 mg/dL 05/21/2017 Comp Metabolic Cha653 eGFR 87 ml/min/1.73m2 05/21/2017 Comp Metabolic Utx287 BUN 16 mg/dL 05/21/2017 Comp Metabolic Umv954 B/C Ratio 21.6 Ratio 05/21/2017 Comp Metabolic Pvc390 CALCIUM 9.4 mg/dL 05/21/2017 Comp Metabolic Ova576 ALK PHOS 132 U/L 05/21/2017 Comp Metabolic Lao360 AST(SGOT) 16 U/L 05/21/2017 Comp Metabolic Pkh790 ALT(SGPT) 20 U/L 05/21/2017 Comp Metabolic Cai605 BILI T 0.4 mg/dL 05/21/2017 Comp Metabolic Fvu463 ALBUMIN 4.0 g/dL 05/21/2017 Comp Metabolic Hfy407 TPRO 6.7 g/dL 05/21/2017 Comp Metabolic Xhk521 GLOB 2.7 g/dL 05/21/2017 Comp Metabolic Vih004 A/G Ratio 1.5 Ratio 05/21/2017 Comp Metabolic Hud980 Osmo 284 mOsmo 05/21/2017 Cbc With Differential [...] 28.9 pg 05/21/2017 Cbc With Differential Ord2 Montgomery% 5.5 % 05/21/2017 Cbc With Differential Ord2 [...] 2.65 K/ul 05/21/2017 Cbc With Differential Ord2 [place] ABS# 0.8 K/ul 05/21/2017 Cbc With Differential Ord2 Eos ABS# 0.1 K/ul 05/21/2017 Cbc With Differential Ord2 Baso ABS# 0.0 K/ul 05/21/2017 Estrogens Total 825146 ESTROGENS, TOTAL 54 pg/mL 05/24/2016 Magnesium Ord90 Mag 1.8 mg/dL 05/19/2016 Tsh Ord6 hTSH II 1.56 uIU/mL 05/19/2016 Progesterone Prog 0.03 ng/mL 05/19/2016 Comp Metabolic Gam479 NA 136 mEq/L 05/19/2016 Comp Metabolic Jvy519 K 4.3 mEq/L 05/19/2016 Comp Metabolic Jyj937 CL 100 mEq/L 05/19/2016 Comp Metabolic Pxu127 CO2 28.0 mEq/L 05/19/2016 Comp Metabolic Lhv285 ANION GAP 12 05/19/2016 Comp Metabolic Kyj434 GLUCOSE 138 mg/dL 05/19/2016 Comp Metabolic Pif918 Creat 0.7 mg/dL 05/19/2016 Comp Metabolic Rny664 eGFR 89 ml/min/1.73m2 05/19/2016 Comp Metabolic Upo173 BUN 15 mg/dL 05/19/2016 Comp Metabolic Tpd755 B/C Ratio 20.5 Ratio 05/19/2016 Comp Metabolic Orh536 CALCIUM 9.7 mg/dL 05/19/2016 Comp Metabolic Nys976 ALK PHOS 106 U/L 05/19/2016 Comp Metabolic Ymn601 AST(SGOT) 21 U/L 05/19/2016 Comp Metabolic Suj169 ALT(SGPT) 24 U/L 05/19/2016 Comp Metabolic Bwc824 BILI T 0.4 mg/dL 05/19/2016 Comp Metabolic Jzs202 ALBUMIN 4.1 g/dL 05/19/2016 Comp Metabolic Kmo830 TPRO 7.1 g/dL 05/19/2016 Comp Metabolic Tgm092 GLOB 3.0 g/dL 05/19/2016 Comp Metabolic Znf649 A/G Ratio 1.4 Ratio 05/19/2016 Comp Metabolic Iff487 Osmo 275 mOsmo 05/19/2016 Cbc With Differential [...] 28.5 pg 05/19/2016 Cbc With Differential Ord2 Montgomery% 6.5 % 05/19/2016 Cbc With Differential Ord2 [...] 2.33 K/ul 05/19/2016 Cbc With Differential Ord2 [place] ABS# 0.6 K/ul 05/19/2016 Cbc With Differential Ord2 Eos ABS# 0.1 K/ul 05/19/2016 Cbc With Differential Ord2 Baso ABS# 0.0 K/ul 05/19/2016 C RAP A SC [id number] Strep A Negative 02/28/2016 Tsh Ord6 hTSH [...] 26.2 pg 08/16/2015 Cbc With Differential Ord2 [place]% 7.1 % 08/16/2015 Cbc With Differential Ord2 [...] 2.32 K/ul 08/16/2015 Cbc With Differential Ord2 [place] ABS# 0.6 K/ul 08/16/2015 Cbc With Differential Ord2 Eos ABS# 0.1 K/ul 08/16/2015 Cbc With Differential Ord2 Baso ABS# 0.0 K/ul 08/16/2015 Cbc With Differential Ord2 New Analyzer Notice Please note new ref ranges starting 05-26-2015 due to implemntation of new five part differential hematolgy analyzer. 08/16/2015 Comp Metabolic Cwg608 NA 132 mEq/L 08/16/2015 Comp Metabolic Sgr605 K 3.6 mEq/L 08/16/2015 Comp Metabolic Cqa797 CL 99 mEq/L 08/16/2015 Comp Metabolic Qhu126 CO2 23.0 mEq/L 08/16/2015 Comp Metabolic Vzq145 ANION GAP 14 08/16/2015 Comp Metabolic Hny250 GLUCOSE 101 mg/dL 08/16/2015 Comp Metabolic Wbd806 Creat 0.7 mg/dL 08/16/2015 Comp Metabolic Bxm841 eGFR 100 ml/min/1.73m2 08/16/2015 Comp Metabolic Uhm037 BUN 10 mg/dL 08/16/2015 Comp Metabolic Fme094 B/C Ratio 15.2 Ratio 08/16/2015 Comp Metabolic Zga437 CALCIUM 9.3 mg/dL 08/16/2015 Comp Metabolic Nsb108 ALK PHOS 100 U/L 08/16/2015 Comp Metabolic Tkp824 AST(SGOT) 14 U/L 08/16/2015 Comp Metabolic Fdf699 ALT(SGPT) 11 U/L 08/16/2015 Comp Metabolic Ryg528 BILI T 0.3 mg/dL 08/16/2015 Comp Metabolic Poa917 ALBUMIN 3.9 g/dL 08/16/2015 Comp Metabolic Bfw350 TPRO 7.1 g/dL 08/16/2015 Comp Metabolic Wtd582 GLOB 3.2 g/dL 08/16/2015 Comp Metabolic Whl115 A/G Ratio 1.2 Ratio 08/16/2015 Comp Metabolic Dhq519 Osmo 264 mOsmo 08/16/2015 Lipid Ord30 CHOL 209 mg/dL 12/03/2014 Lipid Ord30 HDL 42.0 mg/dl 12/03/2014 Lipid Ord30 TRIG 219 mg/dL 12/03/2014 Lipid Ord30 LDL 123 mg/dL 12/03/2014 Lipid Ord30 C/HDL 5.0 Ratio 12/03/2014 Comp Metabolic Tpr032 NA 132 mEq/L 12/03/2014 Comp Metabolic Kkg822 K 4.0 mEq/L 12/03/2014 Comp Metabolic Avr554 CL 101 mEq/L 12/03/2014 Comp Metabolic Kyu684 CO2 22.0 mEq/L 12/03/2014 Comp Metabolic Trp447 ANION GAP 13 12/03/2014 Comp Metabolic Bcf660 GLUCOSE 123 mg/dL 12/03/2014 Comp Metabolic Hkw056 Creat 0.7 mg/dL 12/03/2014 Comp Metabolic Tgb581 eGFR 97 ml/min/1.73m2 12/03/2014 Comp Metabolic Bus856 BUN 10 mg/dL 12/03/2014 Comp Metabolic Opv181 B/C Ratio 14.7 Ratio 12/03/2014 Comp Metabolic Bup027 CALCIUM 9.2 mg/dL 12/03/2014 Comp Metabolic Fdn850 ALK PHOS 88 U/L 12/03/2014 Comp Metabolic Pmy350 AST(SGOT) 18 U/L 12/03/2014 Comp Metabolic Ont465 ALT(SGPT) 17 U/L 12/03/2014 Comp Metabolic Ciz492 BILI T 0.5 mg/dL 12/03/2014 Comp Metabolic Xgn270 ALBUMIN 3.9 g/dL 12/03/2014 Comp Metabolic Joi500 TPRO 6.8 g/dL 12/03/2014 Comp Metabolic Tny633 GLOB 2.9 g/dL 12/03/2014 Comp Metabolic Oco289 A/G Ratio 1.3 Ratio 12/03/2014 Comp Metabolic Txu846 Osmo 265 mOsmo 12/03/2014 Tsh Ord6 hTSH II 1.13 uIU/mL 12/03/2014 D-Dimer [id number] D-DIMER 168 NG/ML 12/03/2014 D-Dimer [id number] COMMENT 12/03/2014 Cbc With Differential Ord2 WBC [...] Procedure Codes Date THER/PROPH/DIAG INJ SC/IM CPT-4: 76721 07/17/2018 TRIAMCINOLONE ACET INJ NOS CPT-4: J3301 07/17/2018 THER/PROPH/DIAG INJ SC/IM CPT-4: 97489 06/27/2017 ROCEPHIN, PER 250 MG CPT- 4: J0696 06/27/2017 IMMUNIZATION ADMIN CPT- 4: 39528 03/16/2017 FLU VAC NO PRSV 4 FLETCHER 3 YRS+ CPT-4: 83376 03/16/2017 Pneumococcal Polysaccharide Vaccine, 23-Valent, Ad CPT-4: 63896 03/16/2017 IMMUNIZATION ADMIN EACH ADD CPT-4: 37287 03/16/2017 TRIAMCINOLONE ACET INJ NOS CPT-4: J3301 01/11/2017 TRIAMCINOLONE ACET INJ NOS CPT-4: J3301 02/28/2016 Vital Signs Date Vital 09/23/2018 Blood Pressure 1: 130/78 Code: 8480-6 BMI: 41.8 Code: 98524-5 Heart Rate 1: 72 bpm Height: 5'6" SpO2: 96% Weight: 259 lbs 08/26/2018 Blood Pressure 1: 126/72 Code: 8480-6 Heart Rate 1: 68 bpm Height: 5'6" SpO2: 94% Weight: 08/12/2018 Blood Pressure 1: 124/68 Code: 8480-6 BMI: 38.4 Code: 35694-0 Heart Rate 1: 79 bpm Height: 5'6" SpO2: 94% Weight: 238 lbs 07/17/2018 Blood Pressure 1: 12672 Code: 8480-6 BMI: 38.6 Code: 35781-0 Heart Rate 1: 85 bpm Height: 5'6" SpO2: 95% Temperature: 36.9 (C) / 98.4 (F) Weight: 239 lbs 07/04/2018 Blood Pressure 1: 132/76 Code: 8480-6 Heart Rate 1: 80 bpm Height: SpO2: 97% Weight: 06/19/2018 Blood Pressure 1: 124/74 Code: 8480-6 BMI: 38.6 Code: 53481-5 Heart Rate 1: 85 bpm Height: 5'6" SpO2: 95% Weight: 239 lbs 04/24/2018 Blood Pressure 1: 128/74 Code: 8480-6 BMI: 37.8 Code: 03509-9 Heart Rate 1: 107 bpm Height: 5'6" SpO2: 98% Weight: 234 lbs 04/17/2018 Blood Pressure 1: 120/64 Code: 8480-6 BMI: 37.8 Code: 37479-3 Heart Rate 1: 84 bpm Height: 5'6" SpO2: 96% Weight: 234 lbs 03/14/2018 Blood Pressure 1: 140/82 Code: 8480-6 BMI: 37.8 Code: 56315-1 Heart Rate 1: 85 bpm Height: 5'6" SpO2: 98% Weight: 234 lbs 02/27/2018 Blood Pressure 1: 142/68 Code: 8480-6 BMI: 36.5 Code: 47002-0 Heart Rate 1: 84 bpm Height: 5'6" SpO2: 97% Weight: 226 lbs 12/19/2017 Blood Pressure 1: 130/86 Code: 8480-6 BMI: 35.7 Code: 32860-5 Heart Rate 1: 94 bpm Height: 5'6" Weight: 221 lbs 12/04/2017 Blood Pressure 1: 138/78 Code: 8480-6 BMI: 36.6 Code: 06651-9 Heart Rate 1: 94 bpm Height: 5'6" SpO2: 98% Weight: 227 lbs 11/20/2017 Weight: 233 lbs 09/10/2017 Blood Pressure 1: 132/86 Code: 8480-6 Heart Rate 1: 86 bpm Height: Weight: 08/14/2017 Blood Pressure 1: 120/74 Code: 8480-6 BMI: 33.9 Code: 25185-5 Heart Rate 1: 92 bpm Height: 5'6" SpO2: 94% Weight: 210 lbs 07/31/2017 Blood Pressure 1: 140/80 Code: 8480-6 BMI: 33.9 Code: 31893-3 Heart Rate 1: 96 bpm Height: 5'6" SpO2: 97% Weight: 210 lbs 06/27/2017 Blood Pressure 1: 128/80 Code: 8480-6 BMI: 33.9 Code: 03809-5 Heart Rate 1: 85 bpm Height: 5'6" [...] 1: 126/74 Code: 8480-6 BMI: 39.9 Code: 22455-6 Heart Rate 1: 79 bpm Height: 5'6" SpO2: 97% Weight: 247 lbs 01/26/2017 Blood Pressure 1: 132/74 Code: 8480-6 BMI: 37.8 Code: 75440-5 Heart Rate 1: 74 bpm Height: 5'6" SpO2: 97% Weight: 234 lbs 01/11/2017 Blood Pressure 1: 118/68 Code: 8480-6 BMI: 38.7 Code: 41663-9 Heart Rate 1: 91 bpm Height: 5'6" SpO2: 96% Weight: 240 lbs 11/30/2016 Blood Pressure 1: 132/76 Code: 8480-6 BMI: 38.3 Code: 16153-2 Heart Rate 1: 71 bpm Height: 5'6" SpO2: 92% Weight: 237 lbs 09/28/2016 Blood Pressure 1: 122/72 Code: 8480-6 BMI: 39.1 Code: 65059-8 Heart Rate 1: 88 bpm Height: 5'6" SpO2: 94% Weight: 242 lbs 08/24/2016 Blood Pressure 1: 130/87 Code: 8480-6 BMI: 41.5 Code: 86124-6 Heart Rate 1: 95 bpm Height: 5'6" Respiratory Rate: 16 bpm SpO2: 98% Temperature: 36.9 (C) / 98.5 (F) Weight: 257 lbs 07/13/2016 Blood Pressure 1: 132/84 Code: 8480-6 BMI: 42.0 Code: 08277-3 Heart Rate 1: 73 bpm Height: 5'6" SpO2: 97% Weight: 260 lbs 05/19/2016 Blood Pressure 1: 138/76 Code: 8480-6 BMI: 40.8 Code: 33554-4 Heart Rate 1: 80 bpm Height: 5'6" SpO2: 98% Weight: 253 lbs 03/16/2016 Blood Pressure 1: 122/70 Code: 8480-6 BMI: 40.4 Code: 72411-5 Heart Rate 1: 72 bpm Height: 5'6" SpO2: 98% Weight: 250 lbs 02/28/2016 Blood Pressure 1: 136/86 Code: 8480-6 BMI: 40.2 Code: 30277-7 Heart Rate 1: 87 bpm Height: 5'6" SpO2: 96% Temperature: 36.3 (C) / 97.3 (F) Weight: 249 lbs 01/13/2016 Blood Pressure 1: 120/76 Code: 8480-6 BMI: 40.4 Code: 58329-1 Heart Rate 1: 68 bpm Height: 5'6" SpO2: 97% Weight: 250 lbs 09/27/2015 Blood Pressure 1: 112/70 Code: 8480-6 BMI: 38.4 Code: 86619-1 Heart Rate 1: 76 bpm Height: 5'6" SpO2: 98% Weight: 238 lbs 08/30/2015 Blood Pressure 1: 144/82 Code: 8480-6 BMI: 39.5 Code: 40589-4 Heart Rate 1: 82 bpm Height: 5'6" SpO2: 97% Weight: 245 lbs 08/16/2015 Blood Pressure 1: 140/72 Code: 8480-6 BMI: 38.9 Code: 86901-6 Heart Rate 1: 72 bpm Height: 5'6" SpO2: 97% Weight: 241 lbs 07/15/2015 Blood Pressure 1: 128/80 Code: 8480-6 BMI: 39.3 Code: 12694-7 Heart Rate 1: 86 bpm Height: 5'6" SpO2: 98% Weight: 243 lbs 8 oz 06/16/2015 Blood Pressure 1: 146/86 Code: 8480-6 BMI: 39.6 Code: 43997-8 Heart Rate 1: 76 bpm Height: 5'6" SpO2: 97% Weight: 245 lbs 8 oz 04/02/2015 Blood Pressure 1: 132/86 Code: 8480-6 BMI: 40.7 Code: 76431-4 Heart Rate 1: 94 bpm Height: 5'6" SpO2: 98% Weight: 252 lbs 12/02/2014 Blood Pressure 1: 122/90 Code: 8480-6 BMI: 41.6 Code: 36177-4 Heart Rate 1: 77 bpm Height: 5'6" [...] in left knee[ICD10: M25.562] Petra Trejo MD, [facility] CPT-4: 23845 09/23/2018 21446 EST. PATIENT, LEVEL III Diagnosis: Dysuria[ICD10: R30.0] Diagnosis: Other obesity due to excess calories[ICD10: E66.09] Diagnosis: Type 2 diabetes mellitus with hyperglycemia[ICD10: E11.65] Petra Trejo MD, [facility] CPT-4: 58217 08/26/2018 14497 EST. PATIENT, LEVEL III Diagnosis: Type 2 diabetes mellitus without complications[ICD10: E11.9] Petra Trejo MD, [facility] CPT-4: 87868 08/12/2018 15342 EST. PATIENT, LEVEL III Diagnosis: Acute laryngopharyngitis[ICD10: J06.0] Diagnosis: Cough[ICD10: R05] Diagnosis: Other allergic rhinitis[ICD10: J30.89] Diagnosis: Right upper quadrant pain[ICD10: R10.11] [facility] CPT-4: 68510 07/17/2018 07725 EST. PATIENT, LEVEL III Diagnosis: Generalized anxiety disorder[ICD10: F41.1] Diagnosis: Major depressive disorder, single episode, moderate[ICD10: F32.1] Petra Trejo MD, [facility] CPT-4: 70128 07/04/2018 45789 EST. PATIENT, LEVEL IV Diagnosis: Generalized anxiety disorder[ICD10: F41.1] Diagnosis: Major depressive disorder, single episode, moderate[ICD10: F32.1] Diagnosis: Other insomnia[ICD10: G47.09] Petra Trejo MD, [facility] CPT-4: 04149 06/19/2018 93347 EST. PATIENT, LEVEL IV Diagnosis: Right upper quadrant pain[ICD10: R10.11] Diagnosis: Other chest pain[ICD10: R07.89] Petra Trejo MD, [facility] CPT-4: 85993 04/24/2018 16919 EST. PATIENT, LEVEL III Diagnosis: Generalized anxiety disorder[ICD10: F41.1] Diagnosis: Major depressive disorder, recurrent, mild[ICD10: F33.0] Diagnosis: Essential (primary) hypertension[ICD10: I10] Diagnosis: Type 2 diabetes mellitus without complications[ICD10: E11.9] Petra Trejo MD, [facility] CPT-4: 71106 04/17/2018 22478 EST. PATIENT, LEVEL III Diagnosis: Localized edema[ICD10: R60.0] Diagnosis: Essential (primary) hypertension[ICD10: I10] Petra Trejo MD, [facility] CPT-4: 60275 03/14/2018 99033 EST. PATIENT, LEVEL III Diagnosis: Pain in left knee[ICD10: M25.562] Diagnosis: Other obesity due to excess calories[ICD10: E66.09] Diagnosis: Other insomnia[ICD10: G47.09] Diagnosis: Generalized anxiety disorder[ICD10: F41.1] Petra Trejo MD, [facility] CPT-4: 32284 02/27/2018 ([id number]) Miscellaneous no charge Diagnosis: Other obesity due to excess calories[ICD10: E66.09] Heidy Trejo MD, [facility] CPT-4: 49953 12/19/2017 96987 EST. PATIENT, LEVEL III Diagnosis: Pain in right foot[ICD10: M79.671] Diagnosis: Pain in right ankle and joints of right foot[ICD10: M25.571] Petra Trejo MD, [facility] CPT-4: 61277 12/04/2017 89417 EST. PATIENT, LEVEL III Diagnosis: Pain in left knee[ICD10: M25.562] Diagnosis: Type 2 diabetes mellitus without complications[ICD10: E11.9] Diagnosis: Other obesity due to excess calories[ICD10: E66.09] Petra Trejo MD, [facility] CPT-4: 55578 11/20/2017 82000 EST. PATIENT, LEVEL III Diagnosis: Pain in left knee[ICD10: M25.562] Petra Trejo MD, [facility] CPT-4: 41000 09/10/2017 01488 EST. PATIENT, LEVEL III Diagnosis: Encounter for follow-up examination after completed treatment for conditions other than malignant neoplasm[ICD10: Z09] Diagnosis: Pain in left knee[ICD10: M25.562] Petra Trejo MD, [facility] CPT-4: 81156 08/14/2017 82459 EST. PATIENT, LEVEL III Diagnosis: Pain in left knee[ICD10: M25.562] Petra Trejo MD, [facility] CPT-4: 15314 07/31/2017 09462 EST. PATIENT, LEVEL III Diagnosis: Acute laryngopharyngitis[ICD10: J06.0] Diagnosis: Other allergic rhinitis[ICD10: J30.89] Petra Trejo MD, [facility] CPT- 4: 44777 06/27/2017 09571 EST. PATIENT, LEVEL III Diagnosis: Ganglion, left hand[ICD10: M67.442] Diagnosis: Essential (primary) hypertension[ICD10: I10] Diagnosis: Generalized anxiety disorder[ICD10: F41.1] Diagnosis: Other insomnia[ICD10: G47.09] Petra Trejo MD, [facility] CPT-4: 42636 05/29/2017 77766 EST. PATIENT, LEVEL III Diagnosis: Essential (primary) hypertension[ICD10: I10] Diagnosis: Palpitations[ICD10: R00.2] Diagnosis: Generalized anxiety disorder[ICD10: F41.1] Petra Trejo MD, [facility] CPT-4: 40340 05/21/2017 23663 EST. PATIENT, LEVEL III Diagnosis: Pain in right foot[ICD10: M79.671] Petra Trejo MD, [facility] CPT-4: 76279 04/20/2017 80624 EST. PATIENT, LEVEL IV Diagnosis: Other insomnia[ICD10: G47.09] Diagnosis: Other skin changes[ICD10: R23.8] Petra Trejo MD, [facility] CPT-4: 26400 01/26/2017 44207 EST. PATIENT, LEVEL IV Diagnosis: Acute bronchitis due to other specified organisms[ICD10: J20.8] Petra Trejo MD, [facility] CPT-4: 14835 01/11/2017 ([id number]) 43921 EST. PATIENT, LEVEL IV Diagnosis: Essential (primary) hypertension[ICD10: I10] Diagnosis: Other insomnia[ICD10: G47.09] Diagnosis: Primary generalized (osteo)arthritis[ICD10: M15.0] Diagnosis: Other obesity due to excess calories[ICD10: E66.09] Claudette Trejo MD, [facility] CPT-4: 96834 11/30/2016 ([id number]) 78265 EST. PATIENT, LEVEL III Diagnosis: Other obesity due to excess calories[ICD10: E66.09] Diagnosis: Other insomnia[ICD10: G47.09] Diagnosis: Generalized anxiety disorder[ICD10: F41.1] Claudette Trejo MD, [facility] CPT-4: 87233 09/28/2016 ([id number]) 26388 EST. PATIENT, LEVEL IV Diagnosis: Generalized anxiety disorder[ICD10: F41.1] Diagnosis: Major depressive disorder, recurrent, mild[ICD10: F33.0] Diagnosis: Other obesity due to excess calories[ICD10: E66.09] Diagnosis: Other insomnia[ICD10: G47.09] Claudette Trejo MD, [facility] CPT-4: 10393 08/24/2016 ([id number]) 36978 EST. PATIENT, LEVEL III Diagnosis: Other obesity due to excess calories[ICD10: E66.09] Diagnosis: Major depressive disorder, recurrent, moderate[ICD10: F33.1] Diagnosis: Low back pain[ICD10: M54.5] Heidy Trejo MD, [facility] CPT-4: 78186 07/13/2016 21909 EST. PATIENT, LEVEL IV Diagnosis: Other muscle spasm[ICD10: M62.838] Diagnosis: Generalized anxiety disorder[ICD10: F41.1] Diagnosis: Major depressive disorder, recurrent, moderate[ICD10: F33.1] Diagnosis: Other insomnia[ICD10: G47.09] Petra Trejo MD, [facility] CPT-4: 70628 05/19/2016 ([id number]) 75549 EST. PATIENT, LEVEL III Diagnosis: Generalized anxiety disorder[ICD10: F41.1] Diagnosis: Major depressive disorder, recurrent, moderate[ICD10: F33.1] Heidy Trejo MD, [facility] CPT-4: 04365 03/16/2016 ([id number]) 58318 EST. PATIENT, LEVEL III Diagnosis: Streptococcal pharyngitis[ICD10: J02.0] Claudette Trejo MD, [facility] CPT-4: 98715 02/28/2016 ([id number]) 47251 EST. PATIENT, LEVEL III Diagnosis: Generalized anxiety disorder[ICD10: F41.1] Diagnosis: Other obesity due to excess calories[ICD10: E66.09] Heidy Trejo MD, [facility] CPT-4: 94069 01/13/2016 ([id number]) 37814 EST. PATIENT, LEVEL III Diagnosis: Generalized anxiety disorder[ICD10: F41.1] Diagnosis: Major depressive disorder, recurrent, unspecified[ICD10: F33.9] Heidy Trejo MD, [facility] CPT-4: 68255 09/27/2015 89697 EST. PATIENT, LEVEL IV Diagnosis: Chronic pain syndrome[ICD10: G89.4] Diagnosis: Other obesity due to excess calories[ICD10: E66.09] Diagnosis: Essential (primary) hypertension[ICD10: I10] Diagnosis: Generalized anxiety disorder[ICD10: F41.1] Diagnosis: Excessive and frequent menstruation with regular cycle[ICD10: N92.0] Diagnosis: Pain in right knee[ICD10: M25.561] Petra Trejo MD, [facility] CPT-4: 94792 08/30/2015 52969 EST. PATIENT, LEVEL IV Diagnosis: Palpitations[ICD10: R00.2] Diagnosis: Other obesity due to excess calories[ICD10: E66.09] Petra Trejo MD, [facility] CPT-4: 70207 08/16/2015 ([id number]) 30940 EST. PATIENT, LEVEL IV Diagnosis: Pain in right knee[ICD10: M25.561] Diagnosis: Primary generalized (osteo)arthritis[ICD10: M15.0] Diagnosis: Acute maxillary sinusitis, unspecified[ICD10: J01.00] Heidy Trejo MD, [facility] CPT-4: 52805 07/15/2015 ([id number]) 47926 EST. PATIENT, LEVEL IV Diagnosis: Primary generalized (osteo)arthritis[ICD10: M15.0] Diagnosis: Restless legs syndrome[ICD10: G25.81] Diagnosis: Chronic pain syndrome[ICD10: G89.4] Heidy Trejo MD, [facility] CPT- 4: 89887 06/16/2015 ([id number]) 17213 EST. PATIENT, LEVEL III Diagnosis: Primary generalized (osteo)arthritis[ICD10: M15.0] Diagnosis: Varicose veins of bilateral lower extremities with pain[ICD10: I83.813] Claudette Trejo MD, [facility] CPT-4: 32002 04/02/2015 ([id number]) OFFICE VISIT, NEW - LEVEL 3 Diagnosis: Osteoarthritis[ICD9: 715.90] Diagnosis: ABNORMAL WEIGHT GAIN[ICD9: 783.1] Diagnosis: Superficial thrombophlebitis[ICD9: 451.9] Carey Trejo MD, [facility] CPT-4: 70275 12/02/2014 Plan of Care Planned Activity Notes Codes Status Date Care Plan: Referral Order SNOMED-CT : [id number] Pending 09/24/2018 Visit Plan: Esophageal Reflux - [...] second opinion 09/23/2018 Appointment: Petra Rivas WPtel: [address] [place], [place] [phone] (30 min) [facility] 09/23/2018 Patient Education: Patient Medication Summary Completed [...] control. 08/26/2018 Appointment: [phone] [facility] ([facility] 08/26/2018 Patient Education: Patient [...] control. 08/12/2018 Appointment: [phone] ([facility] min) Complex 08/12/2018 Patient Education: Patient [...] indicated 07/17/2018 Appointment: Petra Rivas WPtel: [phone] [facility] [place] (30 min) Complex 07/17/2018 Patient [...] medications. 07/04/2018 Appointment: Petra Rivas WPtel: [phone] [facility] (30 min) Complex 07/04/2018 Patient Education: [...] patient. 06/19/2018 Appointment: Petra Rivas WPtel: [phone] [facility] [place] (15 min) Moderate 06/19/2018 Patient [...] she is to follow up with her varnish mixer 04/24/2018 Appointment: [facility]el[phone] [facility] ([facility] min) Complex 04/24/2018 Patient [...] glucose control. 04/17/2018 Appointment: Petra Rivas WPtel: [phone] [facility] [...] edema. 03/14/2018 Appointment: Petra Rivas WPtel: [phone] [facility] (15 min) Moderate 03/14/2018 Patient Education: [...] to ortho 02/27/2018 Appointment: Petra Rivas WPtel: [facility] (30 min) Complex 02/27/2018 Patient [facility] ([facility] min) Moderate 11/20/2017 Patient Education: [...] improve. 08/14/2017 Appointment: Petra Rivas WPtel: [address] [place], [place] [phone] (30 min) Complex 08/14/2017 Patient Education: Patient Medication Summary Completed 08/14/2017 Appointment: Petra Rivas WPtel: [address] [place], [place] [phone] (15 min) Moderate 08/01/2017 Visit Plan: Knee pain - pt is to use RICE - Rest, Ice, Compression, Elevation - pt is to use crutches as directed - The pt is to use prn antiinflammatories to manage acute pain. The patient is to call the office if the pain is worsening or does not improve. 07/31/2017 Appointment: Petra Rivas WPtel: [address] [place], [place] [phone] (30 min) Complex 07/31/2017 Patient Education: Patient Medication Summary Completed 07/31/2017 Care Plan: X-RAY EXAM OF KNEE 3 LOINC : 12889-6 Pending 07/31/2017 Visit Plan: URI - Pt [...] allergy spray. 06/27/2017 Appointment: Petra Rivas WPtel: [address] [place], [place] [phone] (15 min) Moderate 06/27/2017 Patient Education: Patient Medication Summary Completed 06/27/2017 Referral: Jignesh Quinn [facility] Patient informed. Referral info faxed. Completed 06/13/2017 [...] Dr. Quinn 05/29/2017 Appointment: Petra Rivastel: [phone] [facility] (15 min) Moderate 05/29/2017 Patient Education: Patient Medication Summary Completed 05/29/2017 Care Plan: Referral Order SNOMED-CT : [id number] Pending 05/29/2017 Appointment: [facility]Ptel[phone] (15 min) Moderate 05/28/2017 Visit [...] acute concerns. 05/21/2017 Appointment: [facility] Rivas: [phone] [facility] (15 min) Moderate 05/21/2017 Patient Education: Patient Medication Summary Completed 05/21/2017 Visit Plan: Right heel pain - will send RX, pt is to do stretches as directed - The pt is to use prn antiinflammatories to manage acute pain. The patient is to call the office if the pain is worsening or does not improve. 04/20/2017 Appointment: Petra Rivas WPtel: [facility]5 [facility] (30 min) Complex 04/20/2017 Patient Education: Patient Medication Summary Completed 04/20/2017 Appointment: Petra Rivas WPtel: [facility]5 [facility] (30 min) Complex 03/29/2017 Patient Education: Patient Medication Summary Completed 03/16/2017 Referral: Maycol Quijano Referral Initiated 02/08/2017 Care Plan: Referral Order SNOMED-CT : [id number] Pending 01/28/2017 Visit Plan: Insomnia - Pt [...] or concerns. 01/26/2017 Appointment: Petra Rivas WPtel: [facility]5 [facility] (30 min) Complex 01/26/2017 Patient Education: [...] worsen. 01/11/2017 Appointment: Pet[facility] Rivas [facility]el: [phone] [...] on use. 11/30/2016 Appointment: Claudette Savage WPtel: [facility]5 [phone] (15 min) Moderate 11/30/2016 Patient Education: Patient Medication Summary Completed 11/30/2016 Patient Education: Obesity Completed 11/30/2016 Care Plan: BMI Above normal followup SELF-MGMT EDUC & TRAIN 1 PT Pending 11/30/2016 Visit Plan: Vtkyylg-mbxzxvdjxu-zgmdlxaa with increase in cymbalta- no changes Insomnia-RX for belsomra provided and instructed on use Obesity- patient down 15#-no changes-continue diet/exercise-follow up in 2 months 09/28/2016 Appointment: Claudette Savage WPtel: [phone] [phone] (15 min) Moderate 09/28/2016 Patient Education: Patient Medication Summary Completed 09/28/2016 Patient Education: Obesity Completed 09/28/2016 Care Plan: BMI Above normal followup SELF-MGMT EDUC & TRAIN 1 PT Pending 09/28/2016 Visit Plan: Uecaesc-pafwydlqur-zqpqweao-increase cymbalta to 60mg daily. Increase xanax as [...] insomnia/anxiety 08/24/2016 Appointment: Claudette Savage WPtel: [phone] [phone] [place] (15 min) Moderate 08/24/2016 Patient [...] improving. 07/13/2016 Appointment: Heidy Trejo WPtel: [phone] [place] (15 min) Moderate 07/13/2016 Patient Education: [...] insomnia. 05/19/2016 Appointment: Petra Rivas WPtel: [phone] [facility] [place] (30 min) Complex 05/19/2016 Patient [...] patient. 03/16/2016 Appointment: Heidy Trejo WPtel: [phone] (15 min) Moderate 03/16/2016 Patient Education: Patient [...] swab. 02/28/2016 Appointment: Claudette Savage WPtel: [phone] [phone] [place] (10 min) Simple 02/28/2016 Patient [...] lexapro 01/13/2016 [facility]ment: [phone] [place] (15 min) Moderate 01/13/2016 Patient [...] 09/27/2015 Care Plan: Referral Order SNOMED-CT : [id number] Pending 08/31/2015 Visit Plan: Anxiety - the [...] pain symptoms. 07/15/2015 Appointment: Heidy Trejo WPtel: [address] [place] [address] (15 min) Moderate 07/15/2015 Patient Education: Patient [...] vein clinic 04/02/2015 Appointment: Claudette Savage WPtel: [facility]5 [phone] [place] (15 min) Moderate 04/02/2015 Patient [...] Summary Completed 12/02/2014 Referral: Belle Hoffman WPtel: [address] [place], [place] [phone] they will call and set the appt with her Initiated Referral: Justo Lemus Referral Initiated Referral: Maycol Quijano Referral Initiated Referral: Belle Hoffman WPtel: [facility] Referral Initiated Referral: Jignesh Quinn [facility] [place] Referral Initiated Instructions Comment use tylenol instead of naproxen or ibuprofen protonix twice a day x 1 week carafate 4 times a day we will refer you back to Dr. Oliveira for an EGD refer to Dr. Leums for left knee pain avoid excessive intake [...] she is to follow up with her varnish mixer . Anxiety and Depression- the patient has [...] 1 mg at night for anxiety . Omhwoji-cgiwiqtmfn-aabitnbj-increase cymbalta to 60mg daily. Increase xanax as [...] to allow for greater blood glucose control. [employer] website contrave 1 pill nightly x 1 [...] appropriately prescribed for this patient. BELSOMRA . Hydfxik-kxeylfirvs-ydhdenkp with increase in cymbalta-no changes Insomnia-RX for [...]
--- OUTSIDE RECORDS SUMMARY | 2018-10-14 12:50 | XMS REPORT | CCD ---
Author Author [place] Organization [facility] Address [address] [place] [address] Phone Care Team Providers Care Clinical Research Assistant Name Role Phone PP Unavailable CCM Unavailable Summary Purpose Interface Exchange Insurance Providers Payer name Policy type / Coverage type Covered republican ID Effective Begin Date Effective End Date [facility] Commercial Insurance [id number] Unknown Family history Brother Diagnosis Age At [...] Description Effective Dates Tobacco history SNOMED CT: 2983705 Quit less than 5 years ago 04/02/2015 Alcohol history Unknown occasionally drinks alcohol 04/02/2015 Marital status Unknown Manuel Vitale 12/02/2014 Number of children Unknown 3 12/02/2014 Allergies, Adverse Reactions, Alerts Substance Reaction Codes Entered Date Inactivated Date Status * NO KNOWN FOOD ALLERGIES Unknown 12/02/2014 No Inactive Date Active Penicillin Unknown 12/02/2014 No Inactive Date Active tramadol RxNorm: 36559 12/02/2014 No Inactive Date Active Past Medical [...] Fill Instructions hydrochlorothiazide 25 mg tablet RxNorm: 462557 1 TABLET(S) PO DAILY 09/19/2018 12/17/2018 Active Saxenda 3 mg/0.5 mL (18 mg/3 mL) subcutaneous pen injector RxNorm: 7868452 1.8 Milligram(s) SQ daily 08/28/2018 12/25/2018 Active disp qty sufficient- [place] approved Saxenda 3 mg/0.5 mL (18 mg/3 mL) subcutaneous pen injector RxNorm: 4565918 1.8 Milligram(s) SQ daily 08/28/2018 08/27/2018 Inactive disp qty sufficient Saxenda 3 mg/0.5 mL (18 mg/3 mL) subcutaneous pen injector RxNorm: 4958804 1.8 Milliliter(s) SQ daily 08/27/2018 08/27/2018 Inactive disp qty sufficient Xanax 1 mg tablet RxNorm: 683354 1-2 Tablet(s) PO QHS as needed insomnia 08/26/2018 11/23/2018 Active metformin 500 mg tablet RxNorm: 841542 1 Tablet(s) PO BID 08/26/2018 12/23/2018 Active Keflex 500 mg capsule RxNorm: 534489 1 Capsule(s) PO TID 08/26/2018 09/01/2018 Inactive Protonix 40 mg tablet,delayed release RxNorm: 319330 1 TABLET(S) PO DAILY 08/12/2018 12/09/2018 Active metformin 500 mg tablet RxNorm: 234724 1 Tablet(s) PO daily 08/12/2018 08/25/2018 Inactive Lasix 20 mg tablet RxNorm: 1 TABLET(S) PO DAILY NEEDED EDEMA 08/06/2018 10/04/2018 Active potassium chloride ER 10 mEq tablet,extended release RxNorm: 669598 1 TABLET(S) PO DAILY NEEDED TO TAKE WHEN YOU TAKE THE LASIX 08/06/2018 10/04/2018 Active Zorvolex 35 mg capsule RxNorm: 2961505 TAKE 1 CAPSULE BY MOUTH THREE (3) TIMES DAILY 08/02/2018 11/29/2018 Active prednisone 20 mg tablet RxNorm: 442502 Tablet(s) PO 07/17/2018 No Stop Date Active 20mg tonight then starting tomorrow: 60,60,40,40,20,20,10,10 Remeron 15 mg tablet RxNorm: 961114 1/2 Tablet(s) PO QHS 07/17/2018 2019 Active Tamiflu 75 mg capsule RxNorm: 959958 1 Capsule(s) PO BID 07/17/2018 07/21/2018 Inactive Kenalog 40 mg/mL suspension for injection RxNorm: 1968185 Milliliter(s) Inj 07/17/2018 07/17/2018 Inactive Lexapro 20 mg tablet RxNorm: 031539 1 TABLET(S) PO DAILY 07/15/2018 11/11/2018 Active potassium chloride ER 10 mEq tablet,extended release RxNorm: 478868 1 Tablet(s) PO daily as needed to take when you take the lasix 07/04/2018 08/02/2018 Inactive Lasix 20 mg tablet RxNorm: 1 Tablet(s) PO daily as needed edema 07/04/2018 08/02/2018 Inactive Cymbalta 30 mg capsule,delayed release RxNorm: 655430 1 CAPSULE(S) PO DAILY TO BE TAKEN WITH 60MG TO=90MG 07/01/2018 07/14/2018 Inactive hydrochlorothiazide 25 mg tablet RxNorm: 144585 1 TABLET(S) PO DAILY 06/27/2018 09/18/2018 Inactive Remeron 15 mg tablet RxNorm: 200770 1/2 Tablet(s) PO QHS 06/20/2018 07/16/2018 Inactive Lasix 20 mg tablet RxNorm: 515969 1 Tablet(s) PO daily 06/19/2018 06/21/2018 Inactive potassium chloride ER 10 mEq tablet,extended release RxNorm: 858705 1 Tablet(s) PO daily 06/19/2018 07/03/2018 Inactive Lexapro 20 mg tablet RxNorm: 283784 1 Tablet(s) PO daily 06/19/2018 07/14/2018 Inactive gabapentin 300 mg capsule RxNorm: 461860 1 CAPSULE(S) PO TID 06/14/2018 08/12/2018 Inactive Ambien 10 mg tablet RxNorm: 976753 1 Tablet(s) PO QHS as needed insomnia 06/10/2018 09/07/2018 Inactive Cymbalta 30 mg capsule,delayed release RxNorm: 778931 1 Capsule(s) PO daily 06/03/2018 06/02/2018 Inactive Cymbalta 30 mg capsule,delayed release RxNorm: 051358 1 Capsule(s) PO daily to be taken with 60mg to=90mg 06/03/2018 06/30/2018 Inactive Protonix 40 mg tablet,delayed release RxNorm: 132597 1 TABLET(S) PO DAILY 05/20/2018 08/11/2018 Inactive gabapentin 300 mg capsule RxNorm: 186631 1 CAPSULE(S) PO TID 05/15/2018 06/13/2018 Inactive Protonix 40 mg tablet,delayed release RxNorm: 585283 1 Tablet(s) PO daily 04/24/2018 05/19/2018 Inactive Zorvolex 35 mg capsule RxNorm: 4400742 TAKE 1 CAPSULE BY MOUTH THREE (3) TIMES DAILY 04/22/2018 08/01/2018 Inactive hydrochlorothiazide 25 mg tablet RxNorm: 344908 1 TABLET(S) PO DAILY 04/08/2018 06/26/2018 Inactive Zorvolex 35 mg capsule RxNorm: 4174809 TAKE 1 CAPSULE BY MOUTH THREE (3) TIMES DAILY 03/27/2018 04/21/2018 Inactive gabapentin 300 mg capsule RxNorm: 373442 1 CAPSULE(S) PO TID 03/25/2018 04/14/2018 Inactive hydrochlorothiazide 25 mg tablet RxNorm: 414193 1 Tablet(s) PO daily 03/14/2018 04/07/2018 Inactive Victoza 2-Marek 0.6 mg/0.1 mL (18 mg/3 mL) subcutaneous pen injector RxNorm: 262086 Milligram(s) INJECT 1.8 MG SUB-Q ONCE DAILY 02/27/2018 08/20/2019 Active qty sufficient atorvastatin 20 mg tablet RxNorm: 767994 1 Tablet(s) PO daily 02/27/2018 05/22/2019 Active Cymbalta 60 mg capsule,delayed release RxNorm: 163950 TAKE 1 CAPSULE BY MOUTH DAILY 02/27/2018 02/26/2018 Inactive Cymbalta 60 mg capsule,delayed release RxNorm: 582021 1 Capsule(s) PO daily TAKE 1 CAPSULE BY MOUTH DAILY 02/27/2018 07/14/2018 Inactive gabapentin 300 mg capsule RxNorm: 529685 1 Capsule(s) PO TID 02/27/2018 03/24/2018 Inactive Xanax 1 mg tablet RxNorm: 213761 1-2 Tablet(s) PO QHS as needed insomnia 02/27/2018 05/27/2018 Inactive meloxicam 7.5 mg tablet RxNorm: 314105 1 Tablet(s) PO daily 1 TABLET(S) PO DAILY 02/27/2018 04/14/2018 Inactive Ambien 10 mg tablet RxNorm: 096412 1 Tablet(s) PO QHS as needed insomnia 02/27/2018 05/25/2018 Inactive atorvastatin 20 mg tablet RxNorm: 583813 1 Tablet(s) PO daily 02/05/2018 02/26/2018 Inactive atorvastatin 20 mg tablet RxNorm: 246124 1 Tablet(s) PO daily 02/05/2018 02/04/2018 Inactive meloxicam 7.5 mg tablet RxNorm: 562877 1 TABLET(S) PO DAILY 02/01/2018 02/26/2018 Inactive oxycodone 15 mg tablet RxNorm: 5692356 1 Tablet(s) PO QID as needed 01/07/2018 02/19/2018 Inactive lactulose 20 gram/30 mL oral solution RxNorm: 531860 15-30 Milliliter(s) PO BID as needed 12/31/2017 02/20/2018 Inactive meloxicam 7.5 mg tablet RxNorm: 957929 1 TABLET(S) PO DAILY 12/13/2017 01/31/2018 Inactive Zorvolex 35 mg capsule RxNorm: 7953780 1 Capsule(s) PO TID 12/13/2017 02/20/2018 Inactive Ambien 10 mg tablet RxNorm: 936326 1 Tablet(s) PO QHS as needed insomnia 12/04/2017 02/26/2018 Inactive oxycodone 15 mg tablet RxNorm: 9792380 1 Tablet(s) PO QID as needed 12/04/2017 01/06/2018 Inactive prednisone 20 mg tablet RxNorm: 256254 2 Tablet(s) PO daily 12/04/2017 12/08/2017 Inactive Victoza 2-Marek 0.6 mg/0.1 mL (18 mg/3 mL) subcutaneous pen injector RxNorm: 535255 Milligram(s) INJECT 1.8 MG SUB-Q ONCE DAILY 11/20/2017 02/26/2018 Inactive meloxicam 7.5 mg tablet RxNorm: 701486 1 Tablet(s) PO daily 11/20/2017 12/12/2017 Inactive phentermine 37.5 mg tablet RxNorm: 092321 1 Tablet(s) PO daily 11/20/2017 12/19/2017 Inactive Ambien 10 mg tablet RxNorm: 425255 1 Tablet(s) PO QHS as needed insomnia 11/20/2017 12/18/2017 Inactive Xanax 1 mg tablet RxNorm: 819283 1.5 Tablet(s) PO QHS as needed insomnia 11/20/2017 02/26/2018 Inactive hydrocodone 7.5 mg-acetaminophen 325 mg tablet RxNorm: 285532 1 Tablet(s) PO TID as needed 11/16/2017 01/06/2018 Inactive Cymbalta 60 mg capsule,delayed release RxNorm: 022135 TAKE 1 CAPSULE BY MOUTH DAILY 11/02/2017 02/26/2018 Inactive Xanax 1 mg tablet RxNorm: 718004 1 Tablet(s) PO BID PRN as needed anxiety 10/04/2017 11/19/2017 Inactive Victoza 2-Marek 0.6 mg/0.1 mL (18 mg/3 mL) subcutaneous pen injector RxNorm: 516853 INJECT 1.8 MG SUB-Q ONCE DAILY 10/04/2017 11/19/2017 Inactive hydrocodone 7.5 mg-acetaminophen 325 mg tablet RxNorm: 849855 1 Tablet(s) PO TID as needed 09/17/2017 11/15/2017 Inactive hydrocodone 7.5 mg-acetaminophen 325 mg tablet RxNorm: 103768 1 Tablet(s) PO TID as needed 09/10/2017 09/16/2017 Inactive prednisone 10 mg tablet RxNorm: 703007 Tablet(s) PO 09/10/2017 11/13/2017 Inactive 6,5,4,3,2,1 Zorvolex 35 mg capsule RxNorm: 6487921 1 Capsule(s) PO TID 09/07/2017 11/13/2017 Inactive Ambien 10 mg tablet RxNorm: 948340 1 Tablet(s) PO QHS as needed insomnia 08/29/2017 11/19/2017 Inactive Zorvolex 35 mg capsule RxNorm: 8410727 1 Capsule(s) PO TID 08/28/2017 09/06/2017 Inactive Zorvolex 35 mg capsule RxNorm: 5064762 1 Capsule(s) PO TID 08/13/2017 08/27/2017 Inactive Zorvolex 35 mg capsule RxNorm: 8407573 1 Capsule(s) PO TID 08/13/2017 08/12/2017 Inactive prednisone 20 mg tablet RxNorm: 558711 2 Tablet(s) PO daily 07/31/2017 08/04/2017 Inactive hydrocodone 7.5 mg-acetaminophen 325 mg tablet RxNorm: 075451 1 Tablet(s) PO TID as needed 07/31/2017 09/09/2017 Inactive Zorvolex 35 mg capsule RxNorm: 7686717 1 Capsule(s) PO TID as needed 07/31/2017 11/13/2017 Inactive ceftriaxone 500 mg solution for injection RxNorm: 6970822 1 Milliliter(s) Inj 06/27/2017 06/27/2017 Inactive Keflex 500 mg capsule RxNorm: 732142 1 Capsule(s) PO TID 06/27/2017 07/03/2017 Inactive Ambien 10 mg tablet RxNorm: 376909 1 Tablet(s) PO daily 05/29/2017 08/25/2017 Inactive tramadol 50 mg tablet RxNorm: 305024 1 Tablet(s) PO TID as needed 05/29/2017 07/27/2017 Inactive Xanax 1 mg tablet RxNorm: 406406 1 Tablet(s) PO BID PRN as needed anxiety 05/21/2017 10/03/2017 Inactive alprazolam 1 mg tablet RxNorm: 528608 1 Tablet(s) PO BID as needed 05/21/2017 06/19/2017 Inactive Celebrex 200 mg capsule RxNorm: 150107 1 CAPSULE(S) PO BID 05/04/2017 11/05/2017 Inactive prednisone 20 mg tablet RxNorm: 542352 2 Tablet(s) PO daily 04/20/2017 04/24/2017 Inactive Ambien 10 mg tablet RxNorm: 945972 Tablet(s) PO 04/20/2017 05/28/2017 Inactive hydrocodone 5 mg-acetaminophen 325 mg tablet RxNorm: 563794 1 Tablet(s) PO QID as needed 04/20/2017 08/01/2017 Inactive Cymbalta 60 mg capsule,delayed release RxNorm: 053123 1 Capsule(s) PO daily 04/20/2017 02/26/2018 Inactive Victoza 2-Marek 0.6 mg/0.1 mL (18 mg/3 mL) subcutaneous pen injector RxNorm: 658056 INJECT 1.8 MG SUB-Q ONCE DAILY 03/26/2017 09/21/2017 Inactive diazepam 2 mg tablet RxNorm: 109413 1 Tablet(s) PO QHS as needed insomnia 01/28/2017 05/07/2017 Inactive Victoza 2-Marek 0.6 mg/0.1 mL (18 mg/3 mL) subcutaneous pen injector RxNorm: 485779 1.8 Milligram(s) SQ daily 01/26/2017 03/25/2017 Inactive dispense quantity sufficient Tussionex Pennkinetic ER 10 mg-8 mg/5 mL suspension,extended release RxNorm: 7929922 5 Milliliter(s) PO BID 01/11/2017 01/15/2017 Inactive Xanax 1 mg tablet RxNorm: 655161 1 Tablet(s) PO BID PRN as needed anxiety 01/11/2017 05/20/2017 Inactive Zithromax Z-Marek 250 mg tablet RxNorm: 846233 1 Tablet(s) PO UD 01/11/2017 01/15/2017 Inactive zpack albuterol sulfate 2.5 mg/3 mL (0.083 %) solution for nebulization RxNorm: 543901 3 Milliliter(s) INH UD 01/11/2017 11/13/2017 Inactive prednisone 20 mg tablet RxNorm: 773945 2 Tablet(s) PO daily 01/11/2017 01/15/2017 Inactive Kenalog 40 mg/mL suspension for injection RxNorm: 1971183 1.5 Milliliter(s) Inj 01/11/2017 01/11/2017 Inactive Celebrex 200 mg capsule RxNorm: 151495 1 Capsule(s) PO BID 11/30/2016 02/27/2017 Inactive Ambien 5 mg tablet RxNorm: 733524 1 Tablet(s) PO HS PRN 11/30/2016 08/07/2017 Inactive trazodone 50 mg tablet RxNorm: 150403 1/2 to 1 Tablet(s) PO QHS 10/13/2016 10/12/2016 Inactive trazodone 50 mg tablet RxNorm: 593162 1/2 to 1 Tablet(s) PO QHS 10/13/2016 11/29/2016 Inactive Belsomra 10 mg tablet RxNorm: 3180142 1 Tablet(s) PO QHS 09/28/2016 11/29/2016 Inactive may increase to 20mg if 10mg not effective Cymbalta 60 mg capsule,delayed release RxNorm: 450866 1 Capsule(s) PO daily 08/24/2016 03/21/2017 Inactive Xanax 1 mg tablet RxNorm: 808291 1 Tablet(s) PO BID PRN as needed anxiety 08/24/2016 01/10/2017 Inactive Victoza 2-Marek 0.6 mg/0.1 mL (18 mg/3 mL) subcutaneous pen injector RxNorm: 731380 Milligram(s) SQ 08/24/2016 08/23/2016 Inactive Victoza 2-Marek 0.6 mg/0.1 mL (18 mg/3 mL) subcutaneous pen injector RxNorm: 033545 1.8 Milligram(s) SQ 08/24/2016 01/25/2017 Inactive Vitamin D2 50,000 unit capsule RxNorm: 365635 1 Capsule(s) PO QW 07/13/2016 10/10/2016 Inactive Cymbalta 30 mg capsule,delayed release RxNorm: 753289 1 Capsule(s) PO daily 07/13/2016 08/23/2016 Inactive Belviq XR 20 mg tablet,extended release RxNorm: 6314259 1 Tablet(s) PO daily 05/30/2016 05/29/2016 Inactive prednisone 20 mg tablet RxNorm: 853767 2 Tablet(s) PO daily 05/30/2016 06/03/2016 Inactive prednisone 20 mg tablet RxNorm: 374985 2 Tablet(s) PO daily 05/30/2016 05/29/2016 Inactive Belviq XR 20 mg tablet,extended release RxNorm: 3146384 1 Tablet(s) PO daily 05/30/2016 06/28/2016 Inactive cyclobenzaprine 5 mg tablet RxNorm: 594689 1-2 Tablet(s) PO TID as needed 05/19/2016 05/23/2016 Inactive metoprolol succinate ER 25 mg tablet,extended release 24 hr RxNorm: 935940 1 Tablet(s) PO QPM 04/10/2016 04/13/2016 Inactive metoprolol succinate ER 25 mg tablet,extended release 24 hr RxNorm: 670399 1 Tablet(s) PO QPM 04/10/2016 04/09/2016 Inactive escitalopram 10 mg tablet RxNorm: 955411 1 Tablet(s) PO daily 03/16/2016 07/12/2016 Inactive estradiol 1 mg tablet RxNorm: 577750 1 Tablet(s) PO every other day 03/16/2016 05/15/2016 Inactive Kenalog 40 mg/mL suspension for injection RxNorm: 3057625 Milliliter(s) Inj 02/28/2016 02/28/2016 Inactive Zithromax Z-Marek 250 mg tablet RxNorm: 518910 1 Tablet(s) PO UD 02/28/2016 03/03/2016 Inactive zpack Lexapro 10 mg tablet RxNorm: 430872 1 Tablet(s) PO daily 09/27/2015 02/27/2016 Inactive Lexapro 10 mg tablet RxNorm: 320110 1 Tablet(s) PO daily 08/30/2015 09/26/2015 Inactive Vimovo 500 mg-20 mg tablet,immediate and delay release RxNorm: 414029 1 Tablet(s) PO BID as needed for pain 08/30/2015 09/26/2015 Inactive azithromycin 250 mg tablet RxNorm: 926186 1 Tablet(s) PO UD 2 pills on day #1, then one pill daily x 4 days 07/15/2015 01/12/2016 Inactive hydrocodone 10 mg-acetaminophen 325 mg tablet RxNorm: 141553 1 Tablet(s) PO QID 06/16/2015 01/12/2016 Inactive pramipexole 0.5 mg tablet RxNorm: 334610 1 Tablet(s) PO QPM 06/16/2015 07/14/2015 Inactive Celebrex 200 mg capsule RxNorm: 621068 1 Capsule(s) PO daily 05/03/2015 05/02/2015 Inactive Celebrex 200 mg capsule RxNorm: 840138 1 Capsule(s) PO daily 05/03/2015 01/12/2016 Inactive hydrocodone 7.5 mg-acetaminophen 325 mg tablet RxNorm: 863245 1 Tablet(s) PO Q6 PRN 05/03/2015 06/15/2015 Inactive Mobic 15 mg tablet RxNorm: 063194 1 Tablet(s) PO daily 04/02/2015 05/02/2015 Inactive hydrocodone 7.5 mg-acetaminophen 325 mg tablet RxNorm: 239020 1 Tablet(s) PO Q6 PRN 04/02/2015 05/02/2015 Inactive hydrocodone 5 mg-acetaminophen 325 mg tablet RxNorm: 348955 1 Tablet(s) PO Q6 as needed 12/11/2014 04/01/2015 Inactive Pennsaid 1.5 % topical drops RxNorm: 133864 40 Drop(s) TOP QID as needed 12/07/2014 02/04/2015 Inactive Apply 40 drops to each knee joint 4 times per day as needed for osteoarthritis pain estradiol 1 mg tablet RxNorm: 511516 1 Tablet(s) PO QHS No Start Date 03/15/2016 Inactive Xanax 0.5 mg tablet RxNorm: 862930 1 Tablet(s) PO Q6 as needed anxiety No Start Date 08/23/2016 Inactive Tylenol Extra Strength 500 mg tablet RxNorm: 506978 3 Tablet(s) PO BID after breakfast and after lunch No Start Date 01/12/2016 Inactive lactulose 20 gram/30 mL oral solution RxNorm: 343022 15-30 Milliliter(s) PO BID as needed No Start Date 12/30/2017 Inactive hydrocodone 5 mg-acetaminophen 325 mg tablet RxNorm: 824544 1 Tablet(s) PO Q6 as needed No Start Date 12/10/2014 Inactive Phenergan-Codeine syrup RxNorm: 5-10 Milliliter(s) PO QID as needed No Start Date 11/13/2017 Inactive ibuprofen 200 mg capsule RxNorm: 638202 4 Capsule(s) PO QID as needed No Start Date 04/01/2015 Inactive Medication Administered Medication Codes Instructions Start Date Status Kenalog 40 mg/mL suspension for injection RxNorm: 3052519 Milliliter 07/17/2018 No longer Active ceftriaxone 500 mg solution for injection RxNorm: 4247872 1Milliliter 06/27/2017 No longer Active Kenalog 40 mg/mL suspension for injection RxNorm: 5962503 1.5Milliliter 01/11/2017 No longer Active Kenalog 40 mg/mL suspension for injection RxNorm: 0371034 Milliliter 02/28/2016 No longer Active Immunizations Vaccine [...] sent to ref lab 08/27/2018 Influenza A+B Ogs442 Influ A+B Pos Influenza A 07/17/2018 %Hba1C Bgv783 % HbA1c 58863- 6 6.7 % 11/20/2017 %Hba1C Lsu078 Gluc Ave 146 mg/dL 11/20/2017 Free T4 Qix772 FREE T4 0.76 ng/dL 05/21/2017 Tsh Ord6 hTSH II 1.27 uIU/mL 05/21/2017 Comp Metabolic Vmq939 NA 140 mEq/L 05/21/2017 Comp Metabolic Dtn960 K 3.9 mEq/L 05/21/2017 Comp Metabolic Ojj740 CL 101 mEq/L 05/21/2017 Comp Metabolic Xiq894 CO2 28.0 mEq/L 05/21/2017 Comp Metabolic Xpw578 ANION GAP 15 05/21/2017 Comp Metabolic Awu995 GLUCOSE 155 mg/dL 05/21/2017 Comp Metabolic Asm740 Creat 0.7 mg/dL 05/21/2017 Comp Metabolic Eir939 eGFR 87 ml/min/1.73m2 05/21/2017 Comp Metabolic Hzg364 BUN 16 mg/dL 05/21/2017 Comp Metabolic Tzs612 B/C Ratio 21.6 Ratio 05/21/2017 Comp Metabolic Vmb116 CALCIUM 9.4 mg/dL 05/21/2017 Comp Metabolic Uut632 ALK PHOS 132 U/L 05/21/2017 Comp Metabolic Ikv717 AST(SGOT) 16 U/L 05/21/2017 Comp Metabolic Wki506 ALT(SGPT) 20 U/L 05/21/2017 Comp Metabolic Tjk651 BILI T 0.4 mg/dL 05/21/2017 Comp Metabolic Wla094 ALBUMIN 4.0 g/dL 05/21/2017 Comp Metabolic Hud519 TPRO 6.7 g/dL 05/21/2017 Comp Metabolic Zrj815 GLOB 2.7 g/dL 05/21/2017 Comp Metabolic Svw272 A/G Ratio 1.5 Ratio 05/21/2017 Comp Metabolic Fql705 Osmo 284 mOsmo 05/21/2017 Cbc With Differential [...] 28.9 pg 05/21/2017 Cbc With Differential Ord2 [facility]% 5.5 % 05/21/2017 Cbc With Differential Ord2 [...] 2.65 K/ul 05/21/2017 Cbc With Differential Ord2 [facility] ABS# 0.8 K/ul 05/21/2017 Cbc With Differential Ord2 Eos ABS# 0.1 K/ul 05/21/2017 Cbc With Differential Ord2 Baso ABS# 0.0 K/ul 05/21/2017 Estrogens Total 568998 ESTROGENS, TOTAL 54 pg/mL 05/24/2016 Magnesium Ord90 Mag 1.8 mg/dL 05/19/2016 Tsh Ord6 hTSH II 1.56 uIU/mL 05/19/2016 Progesterone Prog 0.03 ng/mL 05/19/2016 Comp Metabolic Zfv581 NA 136 mEq/L 05/19/2016 Comp Metabolic Rro899 K 4.3 mEq/L 05/19/2016 Comp Metabolic Dmd211 CL 100 mEq/L 05/19/2016 Comp Metabolic Vsd486 CO2 28.0 mEq/L 05/19/2016 Comp Metabolic Dwb530 ANION GAP 12 05/19/2016 Comp Metabolic Cns572 GLUCOSE 138 mg/dL 05/19/2016 Comp Metabolic Vhl277 Creat 0.7 mg/dL 05/19/2016 Comp Metabolic Bse370 eGFR 89 ml/min/1.73m2 05/19/2016 Comp Metabolic Sly034 BUN 15 mg/dL 05/19/2016 Comp Metabolic Sng925 B/C Ratio 20.5 Ratio 05/19/2016 Comp Metabolic Opz035 CALCIUM 9.7 mg/dL 05/19/2016 Comp Metabolic Wld600 ALK PHOS 106 U/L 05/19/2016 Comp Metabolic Icj574 AST(SGOT) 21 U/L 05/19/2016 Comp Metabolic Nxf808 ALT(SGPT) 24 U/L 05/19/2016 Comp Metabolic Dfa199 BILI T 0.4 mg/dL 05/19/2016 Comp Metabolic Cpi029 ALBUMIN 4.1 g/dL 05/19/2016 Comp Metabolic Bzx288 TPRO 7.1 g/dL 05/19/2016 Comp Metabolic Psk029 GLOB 3.0 g/dL 05/19/2016 Comp Metabolic Gbp538 A/G Ratio 1.4 Ratio 05/19/2016 Comp Metabolic Bvf177 Osmo 275 mOsmo 05/19/2016 Cbc With Differential [...] 28.5 pg 05/19/2016 Cbc With Differential Ord2 [facility]% 6.5 % 05/19/2016 Cbc With Differential Ord2 [...] 2.33 K/ul 05/19/2016 Cbc With Differential Ord2 [facility] ABS# 0.6 K/ul 05/19/2016 Cbc With Differential Ord2 Eos ABS# 0.1 K/ul 05/19/2016 Cbc With Differential Ord2 Baso ABS# 0.0 K/ul 05/19/2016 C RAP A SC 6033523 Strep A Negative 02/28/2016 Tsh Ord6 hTSH [...] 26.2 pg 08/16/2015 Cbc With Differential Ord2 [facility]% 7.1 % 08/16/2015 Cbc With Differential Ord2 [...] 2.32 K/ul 08/16/2015 Cbc With Differential Ord2 [facility] ABS# 0.6 K/ul 08/16/2015 Cbc With Differential Ord2 Eos ABS# 0.1 K/ul 08/16/2015 Cbc With Differential Ord2 Baso ABS# 0.0 K/ul 08/16/2015 Cbc With Differential Ord2 New Analyzer Notice Please note new ref ranges starting 05-26-2015 due to implemntation of new five part differential hematolgy analyzer. 08/16/2015 Comp Metabolic Eyo530 NA 132 mEq/L 08/16/2015 Comp Metabolic Xkm409 K 3.6 mEq/L 08/16/2015 Comp Metabolic Zum350 CL 99 mEq/L 08/16/2015 Comp Metabolic Fwp620 CO2 23.0 mEq/L 08/16/2015 Comp Metabolic Kvt686 ANION GAP 14 08/16/2015 Comp Metabolic Sxd240 GLUCOSE 101 mg/dL 08/16/2015 Comp Metabolic Woi204 Creat 0.7 mg/dL 08/16/2015 Comp Metabolic Knj518 eGFR 100 ml/min/1.73m2 08/16/2015 Comp Metabolic Pzn141 BUN 10 mg/dL 08/16/2015 Comp Metabolic Tck364 B/C Ratio 15.2 Ratio 08/16/2015 Comp Metabolic Usg395 CALCIUM 9.3 mg/dL 08/16/2015 Comp Metabolic Uqi961 ALK PHOS 100 U/L 08/16/2015 Comp Metabolic Rim477 AST(SGOT) 14 U/L 08/16/2015 Comp Metabolic Wgc124 ALT(SGPT) 11 U/L 08/16/2015 Comp Metabolic Uzb091 BILI T 0.3 mg/dL 08/16/2015 Comp Metabolic Rmx248 ALBUMIN 3.9 g/dL 08/16/2015 Comp Metabolic Dnm898 TPRO 7.1 g/dL 08/16/2015 Comp Metabolic Bcv517 GLOB 3.2 g/dL 08/16/2015 Comp Metabolic Rpo520 A/G Ratio 1.2 Ratio 08/16/2015 Comp Metabolic Qqf280 Osmo 264 mOsmo 08/16/2015 Lipid Ord30 CHOL 209 mg/dL 12/03/2014 Lipid Ord30 HDL 42.0 mg/dl 12/03/2014 Lipid Ord30 TRIG 219 mg/dL 12/03/2014 Lipid Ord30 LDL 123 mg/dL 12/03/2014 Lipid Ord30 C/HDL 5.0 Ratio 12/03/2014 Comp Metabolic Gcu275 NA 132 mEq/L 12/03/2014 Comp Metabolic Twv436 K 4.0 mEq/L 12/03/2014 Comp Metabolic Swi770 CL 101 mEq/L 12/03/2014 Comp Metabolic Dkf680 CO2 22.0 mEq/L 12/03/2014 Comp Metabolic Emq836 ANION GAP 13 12/03/2014 Comp Metabolic Mam097 GLUCOSE 123 mg/dL 12/03/2014 Comp Metabolic Ckr298 Creat 0.7 mg/dL 12/03/2014 Comp Metabolic Eqj150 eGFR 97 ml/min/1.73m2 12/03/2014 Comp Metabolic Qjo193 BUN 10 mg/dL 12/03/2014 Comp Metabolic Qtu638 B/C Ratio 14.7 Ratio 12/03/2014 Comp Metabolic Pjx827 CALCIUM 9.2 mg/dL 12/03/2014 Comp Metabolic Xwy796 ALK PHOS 88 U/L 12/03/2014 Comp Metabolic Urw102 AST(SGOT) 18 U/L 12/03/2014 Comp Metabolic Gnk493 ALT(SGPT) 17 U/L 12/03/2014 Comp Metabolic Kbt462 BILI T 0.5 mg/dL 12/03/2014 Comp Metabolic Dej039 ALBUMIN 3.9 g/dL 12/03/2014 Comp Metabolic Kbx566 TPRO 6.8 g/dL 12/03/2014 Comp Metabolic Yyb599 GLOB 2.9 g/dL 12/03/2014 Comp Metabolic Rkt912 A/G Ratio 1.3 Ratio 12/03/2014 Comp Metabolic Xhu484 Osmo 265 mOsmo 12/03/2014 Tsh Ord6 hTSH II 1.13 uIU/mL 12/03/2014 D-Dimer [id number] D-DIMER 168 NG/ML 12/03/2014 D-Dimer [id number] COMMENT 12/03/2014 Cbc With Differential Ord2 WBC [...] Procedure Codes Date THER/PROPH/DIAG INJ SC/IM CPT-4: 22647 07/17/2018 TRIAMCINOLONE ACET INJ NOS CPT-4: J3301 07/17/2018 THER/PROPH/DIAG INJ SC/IM CPT-4: 11796 06/27/2017 ROCEPHIN, PER 250 MG CPT- 4: J0696 06/27/2017 IMMUNIZATION ADMIN CPT- 4: 46183 03/16/2017 FLU VAC NO PRSV 4 FLETCHER 3 YRS+ CPT-4: 14276 03/16/2017 Pneumococcal Polysaccharide Vaccine, 23-Valent, Ad CPT-4: 96898 03/16/2017 IMMUNIZATION ADMIN EACH ADD CPT-4: 48982 03/16/2017 TRIAMCINOLONE ACET INJ NOS CPT-4: J3301 01/11/2017 TRIAMCINOLONE ACET INJ NOS CPT-4: J3301 02/28/2016 Vital Signs Date Vital 09/23/2018 Blood Pressure 1: 130/78 Code: 8480-6 BMI: 41.8 Code: 62104-7 Heart Rate 1: 72 bpm Height: 5'6" SpO2: 96% Weight: 259 lbs 08/26/2018 Blood Pressure 1: 126/72 Code: 8480-6 Heart Rate 1: 68 bpm Height: 5'6" SpO2: 94% Weight: 08/12/2018 Blood Pressure 1: 124/68 Code: 8480-6 BMI: 38.4 Code: 86845-1 Heart Rate 1: 79 bpm Height: 5'6" SpO2: 94% Weight: 238 lbs 07/17/2018 Blood Pressure 1: 12672 Code: 8480-6 BMI: 38.6 Code: 35617-4 Heart Rate 1: 85 bpm Height: 5'6" SpO2: 95% Temperature: 36.9 (C) / 98.4 (F) Weight: 239 lbs 07/04/2018 Blood Pressure 1: 132/76 Code: 8480-6 Heart Rate 1: 80 bpm Height: SpO2: 97% Weight: 06/19/2018 Blood Pressure 1: 124/74 Code: 8480-6 BMI: 38.6 Code: 76450-9 Heart Rate 1: 85 bpm Height: 5'6" SpO2: 95% Weight: 239 lbs 04/24/2018 Blood Pressure 1: 128/74 Code: 8480-6 BMI: 37.8 Code: 29151-6 Heart Rate 1: 107 bpm Height: 5'6" SpO2: 98% Weight: 234 lbs 04/17/2018 Blood Pressure 1: 120/64 Code: 8480-6 BMI: 37.8 Code: 03087-1 Heart Rate 1: 84 bpm Height: 5'6" SpO2: 96% Weight: 234 lbs 03/14/2018 Blood Pressure 1: 140/82 Code: 8480-6 BMI: 37.8 Code: 28204-8 Heart Rate 1: 85 bpm Height: 5'6" SpO2: 98% Weight: 234 lbs 02/27/2018 Blood Pressure 1: 142/68 Code: 8480-6 BMI: 36.5 Code: 96712-0 Heart Rate 1: 84 bpm Height: 5'6" SpO2: 97% Weight: 226 lbs 12/19/2017 Blood Pressure 1: 130/86 Code: 8480-6 BMI: 35.7 Code: 45658-2 Heart Rate 1: 94 bpm Height: 5'6" Weight: 221 lbs 12/04/2017 Blood Pressure 1: 138/78 Code: 8480-6 BMI: 36.6 Code: 13857-7 Heart Rate 1: 94 bpm Height: 5'6" SpO2: 98% Weight: 227 lbs 11/20/2017 Weight: 233 lbs 09/10/2017 Blood Pressure 1: 132/86 Code: 8480-6 Heart Rate 1: 86 bpm Height: Weight: 08/14/2017 Blood Pressure 1: 120/74 Code: 8480-6 BMI: 33.9 Code: 63222-9 Heart Rate 1: 92 bpm Height: 5'6" SpO2: 94% Weight: 210 lbs 07/31/2017 Blood Pressure 1: 140/80 Code: 8480-6 BMI: 33.9 Code: 11141-2 Heart Rate 1: 96 bpm Height: 5'6" SpO2: 97% Weight: 210 lbs 06/27/2017 Blood Pressure 1: 128/80 Code: 8480-6 BMI: 33.9 Code: 28147-3 Heart Rate 1: 85 bpm Height: 5'6" [...] 1: 126/74 Code: 8480-6 BMI: 39.9 Code: 33513-3 Heart Rate 1: 79 bpm Height: 5'6" SpO2: 97% Weight: 247 lbs 01/26/2017 Blood Pressure 1: 132/74 Code: 8480-6 BMI: 37.8 Code: 14692-4 Heart Rate 1: 74 bpm Height: 5'6" SpO2: 97% Weight: 234 lbs 01/11/2017 Blood Pressure 1: 118/68 Code: 8480-6 BMI: 38.7 Code: 95826-0 Heart Rate 1: 91 bpm Height: 5'6" SpO2: 96% Weight: 240 lbs 11/30/2016 Blood Pressure 1: 132/76 Code: 8480-6 BMI: 38.3 Code: 78959-1 Heart Rate 1: 71 bpm Height: 5'6" SpO2: 92% Weight: 237 lbs 09/28/2016 Blood Pressure 1: 122/72 Code: 8480-6 BMI: 39.1 Code: 41015-9 Heart Rate 1: 88 bpm Height: 5'6" SpO2: 94% Weight: 242 lbs 08/24/2016 Blood Pressure 1: 130/87 Code: 8480-6 BMI: 41.5 Code: 10326-5 Heart Rate 1: 95 bpm Height: 5'6" Respiratory Rate: 16 bpm SpO2: 98% Temperature: 36.9 (C) / 98.5 (F) Weight: 257 lbs 07/13/2016 Blood Pressure 1: 132/84 Code: 8480-6 BMI: 42.0 Code: 31772-4 Heart Rate 1: 73 bpm Height: 5'6" SpO2: 97% Weight: 260 lbs 05/19/2016 Blood Pressure 1: 138/76 Code: 8480-6 BMI: 40.8 Code: 64853-8 Heart Rate 1: 80 bpm Height: 5'6" SpO2: 98% Weight: 253 lbs 03/16/2016 Blood Pressure 1: 122/70 Code: 8480-6 BMI: 40.4 Code: 04509-3 Heart Rate 1: 72 bpm Height: 5'6" SpO2: 98% Weight: 250 lbs 02/28/2016 Blood Pressure 1: 136/86 Code: 8480-6 BMI: 40.2 Code: 98609-1 Heart Rate 1: 87 bpm Height: 5'6" SpO2: 96% Temperature: 36.3 (C) / 97.3 (F) Weight: 249 lbs 01/13/2016 Blood Pressure 1: 120/76 Code: 8480-6 BMI: 40.4 Code: 44679-1 Heart Rate 1: 68 bpm Height: 5'6" SpO2: 97% Weight: 250 lbs 09/27/2015 Blood Pressure 1: 112/70 Code: 8480-6 BMI: 38.4 Code: 69934-5 Heart Rate 1: 76 bpm Height: 5'6" SpO2: 98% Weight: 238 lbs 08/30/2015 Blood Pressure 1: 144/82 Code: 8480-6 BMI: 39.5 Code: 78304-5 Heart Rate 1: 82 bpm Height: 5'6" SpO2: 97% Weight: 245 lbs 08/16/2015 Blood Pressure 1: 140/72 Code: 8480-6 BMI: 38.9 Code: 57872-7 Heart Rate 1: 72 bpm Height: 5'6" SpO2: 97% Weight: 241 lbs 07/15/2015 Blood Pressure 1: 128/80 Code: 8480-6 BMI: 39.3 Code: 80268-2 Heart Rate 1: 86 bpm Height: 5'6" SpO2: 98% Weight: 243 lbs 8 oz 06/16/2015 Blood Pressure 1: 146/86 Code: 8480-6 BMI: 39.6 Code: 01205-8 Heart Rate 1: 76 bpm Height: 5'6" SpO2: 97% Weight: 245 lbs 8 oz 04/02/2015 Blood Pressure 1: 132/86 Code: 8480-6 BMI: 40.7 Code: 59897-3 Heart Rate 1: 94 bpm Height: 5'6" SpO2: 98% Weight: 252 lbs 12/02/2014 Blood Pressure 1: 122/90 Code: 8480-6 BMI: 41.6 Code: 06496-9 Heart Rate 1: 77 bpm Height: 5'6" [...] Trejo MD, [facility] CPT-4: 34980 09/23/2018 13168 EST. PATIENT, LEVEL III Diagnosis: Dysuria[ICD10: R30.0] Diagnosis: Other obesity due to excess calories[ICD10: E66.09] Diagnosis: Type 2 diabetes mellitus with hyperglycemia[ICD10: E11.65] Petra Trejo MD, [facility] CPT-4: 14345 08/26/2018 62995 EST. PATIENT, LEVEL III Diagnosis: Type 2 diabetes mellitus without complications[ICD10: E11.9] Petra Trejo MD, [facility] CPT-4: 06329 08/12/2018 05429 EST. PATIENT, LEVEL III Diagnosis: Acute laryngopharyngitis[ICD10: J06.0] Diagnosis: Cough[ICD10: R05] Diagnosis: Other allergic rhinitis[ICD10: J30.89] Diagnosis: Right upper quadrant pain[ICD10: R10.11] [facility] CPT-4: 59446 07/17/2018 75612 EST. PATIENT, LEVEL III Diagnosis: Generalized anxiety disorder[ICD10: F41.1] Diagnosis: Major depressive disorder, single episode, moderate[ICD10: F32.1] Petra Trejo MD, [facility] CPT-4: 87291 07/04/2018 36772 EST. PATIENT, LEVEL IV Diagnosis: Generalized anxiety disorder[ICD10: F41.1] Diagnosis: Major depressive disorder, single episode, moderate[ICD10: F32.1] Diagnosis: Other insomnia[ICD10: G47.09] Petra Trejo MD, [facility] CPT-4: 59712 06/19/2018 35339 EST. PATIENT, LEVEL IV Diagnosis: Right upper quadrant pain[ICD10: R10.11] Diagnosis: Other chest pain[ICD10: R07.89] Petra Trejo MD, [facility] CPT-4: 68759 04/24/2018 74642 EST. PATIENT, LEVEL III Diagnosis: Generalized anxiety disorder[ICD10: F41.1] Diagnosis: Major depressive disorder, recurrent, mild[ICD10: F33.0] Diagnosis: Essential (primary) hypertension[ICD10: I10] Diagnosis: Type 2 diabetes mellitus without complications[ICD10: E11.9] Petra Trejo MD, [facility] CPT-4: 99989 04/17/2018 95970 EST. PATIENT, LEVEL III Diagnosis: Localized edema[ICD10: R60.0] Diagnosis: Essential (primary) hypertension[ICD10: I10] Petra Trejo MD, [facility] CPT-4: 82960 03/14/2018 48869 EST. PATIENT, LEVEL III Diagnosis: Pain in left knee[ICD10: M25.562] Diagnosis: Other obesity due to excess calories[ICD10: E66.09] Diagnosis: Other insomnia[ICD10: G47.09] Diagnosis: Generalized anxiety disorder[ICD10: F41.1] Petra Trejo MD, [facility] CPT-4: 48810 02/27/2018 ([id number]) Miscellaneous no charge Diagnosis: Other obesity due to excess calories[ICD10: E66.09] Heidy Trejo MD, [facility] CPT-4: 10659 12/19/2017 66275 EST. PATIENT, LEVEL III Diagnosis: Pain in right foot[ICD10: M79.671] Diagnosis: Pain in right ankle and joints of right foot[ICD10: M25.571] Petra Trejo MD, [facility] CPT-4: 34181 12/04/2017 74218 EST. PATIENT, LEVEL III Diagnosis: Pain in left knee[ICD10: M25.562] Diagnosis: Type 2 diabetes mellitus without complications[ICD10: E11.9] Diagnosis: Other obesity due to excess calories[ICD10: E66.09] Petra Trejo MD, [facility] CPT-4: 31334 11/20/2017 15014 EST. PATIENT, LEVEL III Diagnosis: Pain in left knee[ICD10: M25.562] Petra Trejo MD, [facility] CPT-4: 68761 09/10/2017 54904 EST. PATIENT, LEVEL III Diagnosis: Encounter for follow-up examination after completed treatment for conditions other than malignant neoplasm[ICD10: Z09] Diagnosis: Pain in left knee[ICD10: M25.562] Petra Trejo MD, [facility] CPT-4: 95698 08/14/2017 70097 EST. PATIENT, LEVEL III Diagnosis: Pain in left knee[ICD10: M25.562] Petra Trejo MD, [facility] CPT-4: 60442 07/31/2017 74582 EST. PATIENT, LEVEL III Diagnosis: Acute laryngopharyngitis[ICD10: J06.0] Diagnosis: Other allergic rhinitis[ICD10: J30.89] Petra Trejo MD, [facility] CPT- 4: 59560 06/27/2017 44268 EST. PATIENT, LEVEL III Diagnosis: Ganglion, left hand[ICD10: M67.442] Diagnosis: Essential (primary) hypertension[ICD10: I10] Diagnosis: Generalized anxiety disorder[ICD10: F41.1] Diagnosis: Other insomnia[ICD10: G47.09] Petra Trejo MD, [facility] CPT-4: 73541 05/29/2017 65237 EST. PATIENT, LEVEL III Diagnosis: Essential (primary) hypertension[ICD10: I10] Diagnosis: Palpitations[ICD10: R00.2] Diagnosis: Generalized anxiety disorder[ICD10: F41.1] Petra Trejo MD, [facility] CPT-4: 67856 05/21/2017 00461 EST. PATIENT, LEVEL III Diagnosis: Pain in right foot[ICD10: M79.671] Petra Trejo MD, [facility] CPT-4: 96239 04/20/2017 83155 EST. PATIENT, LEVEL IV Diagnosis: Other insomnia[ICD10: G47.09] Diagnosis: Other skin changes[ICD10: R23.8] Petra Trejo MD, [facility] CPT-4: 55206 01/26/2017 21017 EST. PATIENT, LEVEL IV Diagnosis: Acute bronchitis due to other specified organisms[ICD10: J20.8] Petra Trejo MD, [facility] CPT-4: 89580 01/11/2017 ([id number]) 37909 EST. PATIENT, LEVEL IV Diagnosis: Essential (primary) hypertension[ICD10: I10] Diagnosis: Other insomnia[ICD10: G47.09] Diagnosis: Primary generalized (osteo)arthritis[ICD10: M15.0] Diagnosis: Other obesity due to excess calories[ICD10: E66.09] Claudette Trejo MD, [facility] CPT-4: 31181 11/30/2016 ([id number]) 96154 EST. PATIENT, LEVEL III Diagnosis: Other obesity due to excess calories[ICD10: E66.09] Diagnosis: Other insomnia[ICD10: G47.09] Diagnosis: Generalized anxiety disorder[ICD10: F41.1] Claudette Trejo MD, [facility] CPT-4: 92524 09/28/2016 ([id number]) 26397 EST. PATIENT, LEVEL IV Diagnosis: Generalized anxiety disorder[ICD10: F41.1] Diagnosis: Major depressive disorder, recurrent, mild[ICD10: F33.0] Diagnosis: Other obesity due to excess calories[ICD10: E66.09] Diagnosis: Other insomnia[ICD10: G47.09] Claudette Trejo MD, [facility] CPT-4: 12120 08/24/2016 ([id number]) 19985 EST. PATIENT, LEVEL III Diagnosis: Other obesity due to excess calories[ICD10: E66.09] Diagnosis: Major depressive disorder, recurrent, moderate[ICD10: F33.1] Diagnosis: Low back pain[ICD10: M54.5] Heidy Trejo MD, [facility] CPT-4: 85051 07/13/2016 52456 EST. PATIENT, LEVEL IV Diagnosis: Other muscle spasm[ICD10: M62.838] Diagnosis: Generalized anxiety disorder[ICD10: F41.1] Diagnosis: Major depressive disorder, recurrent, moderate[ICD10: F33.1] Diagnosis: Other insomnia[ICD10: G47.09] Petra Trejo MD, [facility] CPT-4: 27084 05/19/2016 ([id number]) 78815 EST. PATIENT, LEVEL III Diagnosis: Generalized anxiety disorder[ICD10: F41.1] Diagnosis: Major depressive disorder, recurrent, moderate[ICD10: F33.1] Heidy Trejo MD, [facility] CPT-4: 43619 03/16/2016 ([id number]) 26135 EST. PATIENT, LEVEL III Diagnosis: Streptococcal pharyngitis[ICD10: J02.0] Claudette Trejo MD, [facility] CPT-4: 95933 02/28/2016 ([id number]) 29803 EST. PATIENT, LEVEL III Diagnosis: Generalized anxiety disorder[ICD10: F41.1] Diagnosis: Other obesity due to excess calories[ICD10: E66.09] Heidy Trejo MD, [facility] CPT-4: 73484 01/13/2016 ([id number]) 99376 EST. PATIENT, LEVEL III Diagnosis: Generalized anxiety disorder[ICD10: F41.1] Diagnosis: Major depressive disorder, recurrent, unspecified[ICD10: F33.9] Heidy Trejo MD, [facility] CPT-4: 61976 09/27/2015 51289 EST. PATIENT, LEVEL IV Diagnosis: Chronic pain syndrome[ICD10: G89.4] Diagnosis: Other obesity due to excess calories[ICD10: E66.09] Diagnosis: Essential (primary) hypertension[ICD10: I10] Diagnosis: Generalized anxiety disorder[ICD10: F41.1] Diagnosis: Excessive and frequent menstruation with regular cycle[ICD10: N92.0] Diagnosis: Pain in right knee[ICD10: M25.561] Petra Trejo MD, [facility] CPT-4: 90068 08/30/2015 35073 EST. PATIENT, LEVEL IV Diagnosis: Palpitations[ICD10: R00.2] Diagnosis: Other obesity due to excess calories[ICD10: E66.09] Petra Trejo MD, [facility] CPT-4: 78227 08/16/2015 ([id number]) 43315 EST. PATIENT, LEVEL IV Diagnosis: Pain in right knee[ICD10: M25.561] Diagnosis: Primary generalized (osteo)arthritis[ICD10: M15.0] Diagnosis: Acute maxillary sinusitis, unspecified[ICD10: J01.00] Heidy Trejo MD, [facility] CPT-4: 70400 07/15/2015 ([id number]) 58850 EST. PATIENT, LEVEL IV Diagnosis: Primary generalized (osteo)arthritis[ICD10: M15.0] Diagnosis: Restless legs syndrome[ICD10: G25.81] Diagnosis: Chronic pain syndrome[ICD10: G89.4] Heidy Trejo MD, [facility] CPT- 4: 81134 06/16/2015 ([id number]) 00213 EST. PATIENT, LEVEL III Diagnosis: Primary generalized (osteo)arthritis[ICD10: M15.0] Diagnosis: Varicose veins of bilateral lower extremities with pain[ICD10: I83.813] Claudette Trejo MD, [facility] CPT-4: 69236 04/02/2015 ([id number]) OFFICE VISIT, NEW - LEVEL 3 Diagnosis: Osteoarthritis[ICD9: 715.90] Diagnosis: ABNORMAL WEIGHT GAIN[ICD9: 783.1] Diagnosis: Superficial thrombophlebitis[ICD9: 451.9] Carey Trejo MD, [facility] CPT-4: 56689 12/02/2014 Plan of Care Planned Activity Notes Codes Status Date Care Plan: Referral Order SNOMED-CT : 920694979 Pending 09/24/2018 Visit Plan: Esophageal Reflux - [...] second opinion 09/23/2018 Appointment: Petra Rivas WPtel: [address] [place], [place] [phone] (30 min) [facility] 09/23/2018 Patient Education: Patient Medication Summary Completed [...] control. 08/26/2018 [facility]ment[facility] [phone] [facility] ([facility] 08/26/2018 Patient Education: [...] control. 08/12/2018 App[facility]ment[phone] [facility] ([facility] 08/12/2018 Patient Education: [...] Petra Rivas WPtel: [phone] [facility] [place] (30 min) Complex 07/17/2018 Patient Education: [...] medications. 07/04/2018 Appointment: Petra Rivas WPtel: [phone] [facility] (30 min) Complex 07/04/2018 Patient Education: Patient [...] patient. 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 04/17/2018 Appointment: [facility] [phone] [facility] (15 min) Moderate 04/17/2018 Patient Education: [...] Petra Rivas WPtel: [phone] [facility] (15 min) Moderate 03/14/2018 Patient [...] to ortho 02/27/2018 Appointment: Pet[facility]ivas [facility]Ptel: [facility] ([facility] Complex 02/27/2018 Patient Education: [...] improve. 12/04/2017 Appointment: [facility] [phone] [facility] [place] (15 min) Moderate 12/04/2017 Patient [...] control. 11/20/2017 Appointment: [facility] [phone] [facility] (15 min) Moderate 11/20/2017 Patient Education: [...] improve. 09/10/2017 Appointment: [facility] [phone] [facility] [place] (15 min) Moderate 09/10/2017 Patient [...] not improve. 08/14/2017 Appointment: Petra Rivas WPtel: [address] [place], [place] [phone] (30 min) Complex 08/14/2017 Patient Education: Patient Medication Summary Completed 08/14/2017 Appointment: Petra Rivas WPtel: [address] [place], [place] [phone] (15 min) Moderate 08/01/2017 Visit Plan: Knee pain - pt is to use RICE - Rest, Ice, Compression, Elevation - pt is to use crutches as directed - The pt is to use prn antiinflammatories to manage acute pain. The patient is to call the office if the pain is worsening or does not improve. 07/31/2017 Appointment: Petra Rivas WPtel: [address] [place], [place] [phone] (30 min) Complex 07/31/2017 Patient Education: Patient Medication Summary Completed 07/31/2017 Care Plan: X-RAY EXAM OF KNEE 3 LOINC : 19128-4 Pending 07/31/2017 Visit Plan: URI - Pt [...] allergy spray. 06/27/2017 Appointment: Petra Rivas WPtel: [address] [place], [place] [phone] (15 min) Moderate 06/27/2017 Patient Education: Patient [...] Dr. Quinn 05/29/2017 Appointment: Petra Rivastel: [phone] [facility] (15 min) Moderate 05/29/2017 Patient Education: Patient Medication Summary Completed 05/29/2017 Care Plan: Referral Order SNOMED-CT : [id number] Pending 05/29/2017 Appointment: [facility] [phone] [facility] (15 min) Moderate 05/28/2017 Visit Plan: [...] acute concerns. 05/21/2017 [facility]ment[facility] [phone] [facility] (15 min) Moderate 05/21/2017 Patient Education: [...] Petra Rivas WPtel: [facility] (30 min) Complex 04/20/2017 Patient Education: Patient Medication Summary Completed 04/20/2017 Appointment: Petra Rivas WPtel: [facility]5 [facility] (30 min) Complex 03/29/2017 Patient Education: Patient Medication Summary Completed 03/16/2017 Referral: Maycol Quijano Referral Initiated 02/08/2017 Care Plan: Referral Order SNOMED-CT : [id number] Pending 01/28/2017 Visit Plan: Insomnia - Pt [...] or concerns. 01/26/2017 Appointment: Petra Rivas WPtel: [facility]5 [facility] (30 min) Complex 01/26/2017 Patient [...] worsen. 01/11/2017 Appointment: [facility] [phone] [facility] (15 min) Moderate 01/11/2017 Patient Education: [...] on use. 11/30/2016 Appointment: Claudette Savage WPtel: [phone] (15 min) Moderate 11/30/2016 Patient Education: Patient Medication Summary Completed 11/30/2016 Patient Education: Obesity Completed 11/30/2016 Care Plan: BMI Above normal followup SELF-MGMT EDUC & TRAIN 1 PT Pending 11/30/2016 Visit Plan: Ahpadjs-mnvzduqekq-ajblqmkt with increase in cymbalta- no changes Insomnia-RX for belsomra provided and instructed on use Obesity- patient down 15#-no changes-continue diet/exercise-follow up in 2 months 09/28/2016 Appointment: Claudette Savage WPtel: [phone] [phone] (15 min) Moderate 09/28/2016 Patient Education: Patient Medication Summary Completed 09/28/2016 Patient Education: Obesity Completed 09/28/2016 Care Plan: BMI Above normal followup SELF-MGMT EDUC & TRAIN 1 PT Pending 09/28/2016 Visit Plan: Targrdj-arnaonmgrt-urlblemm-increase cymbalta to 60mg daily. Increase xanax as [...] insomnia/anxiety 08/24/2016 Appointment: Claudette Savage WPtel: [phone] [phone] [place] (15 min) Moderate 08/24/2016 [...] improving. 07/13/2016 Appointment: Heidy Trejo WPtel: [phone] [facility] [place] (15 min) Moderate 07/13/2016 Patient Education: [...] insomnia. 05/19/2016 Appointment: Petra Rivas WPtel: [phone] [facility] [place] (30 min) Complex 05/19/2016 Patient Education: [...] patient. 03/16/2016 Appointment: Heidy Trejo WPtel: [phone] [facility] (15 min) Moderate 03/16/2016 Patient Education: [...] swab. 02/28/2016 Appointment: Claudette Savage WPtel: [phone] [phone] [place] (10 min) Simple 02/28/2016 [...] lexapro 01/13/2016 [facility]ment: [phone] [place] (15 min) Moderate 01/13/2016 [...] 09/27/2015 Care Plan: Referral Order SNOMED-CT : [id number] Pending 08/31/2015 Visit Plan: Anxiety - the [...] show improvement. 07/15/2015 Appointment: Heidy Trejo WPtel: [address] [place], [place] [address] (15 min) Moderate 07/15/2015 Patient Education: Patient [...] vein clinic 04/02/2015 Appointment: Claudette Savage WPtel: [facility]5 [phone] [place] (15 min) Moderate 04/02/2015 Patient [...] Summary Completed 12/02/2014 Referral: Belle Hoffman WPtel: [address] [place], [place] [phone] they will call and set the appt with her Initiated Referral: Justo Lemus Referral Initiated Referral: Maycol Quijano Referral Initiated Referral: Belle Hoffman WPtel: [facility] Referral Initiated Referral: Jignesh Quinn [facility] [place] Referral Initiated Instructions Comment use tylenol [...] see Dr. Lemus for a second opinion We will check a D-Dimer lab today. [...] CBC, CMP, Fasting lipid profile and TSH. 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 Strep throat - pt give rx for antibiotic - sent to pharmacy - pt had swab of throat today - will culture the swab. . Anxiety - the patient has uncontrolled [...] - will refer to Dr. Hoffman . Palpitations - likely anxiety - will [...] pt is to call for acute concerns. CALL ME IN 1 MONTH AND LET [...] veins-patient getting treatment at vein clinic . Muscle spasms - Will check labs, [...] US and treat or refer as indicated Munira . Strep throat - pt give [...] 1 mg at night for anxiety . Ogtscvv-xlnpfdmmjr-mahxgkza-increase cymbalta to 60mg daily. Increase xanax as [...] - will refer to Dr. Quinn . Chronic Depression and anxiety - the pt has symptoms of chronic anxiety and depression that have been fairly well controlled since the last office visit. The pt has expected periods of exacerbation with abatement of the symptoms with change in situational exposure. No change in current medications. . Hypertension - uncontrolled - the patient's [...] to allow for greater blood glucose control. Breathing treatments 3 times a day x [...] appropriately prescribed for this patient. BELSOMRA . Jrlnhzs-dptyjhrxar-ctelfxgr with increase in cymbalta-no changes Insomnia-RX for [...]
--- OUTSIDE RECORDS SUMMARY | 2018-10-14 12:54 | XMS REPORT | CCD ---
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 [employer] Name Role Phone PP Unavailable CCM Unavailable Summary Purpose Interface Exchange Insurance Providers Payer name Policy type / Coverage type Covered green party ID Effective Begin Date Effective End Date [facility] Commercial Insurance [id number] Unknown Family history Brother Diagnosis Age At [...] Description Effective Dates Tobacco history SNOMED CT: 1101685 Quit less than 5 years ago 04/02/2015 Alcohol history Unknown occasionally drinks alcohol 04/02/2015 Marital status Unknown Manuel Vitale 12/02/2014 Number of children Unknown 3 12/02/2014 Allergies, Adverse Reactions, Alerts Substance Reaction Codes Entered Date Inactivated Date Status * NO KNOWN FOOD ALLERGIES Unknown 12/02/2014 No Inactive Date Active Penicillin Unknown 12/02/2014 No Inactive Date Active tramadol RxNorm: 56915 12/02/2014 No Inactive Date Active Past Medical History Illness Codes Condition Status Onset Date Resolved Date Dysuria ICD-9: 788.1 ICD-10: R30.0 Active 08/26/2018 [...] ICD-10: F41.1 Active 08/24/2016 Unknown Pain in left knee ICD-9: 719.46 ICD-10: M25.562 Active 07/31/2017 Unknown Pain [...] Problems Condition Codes Effective Dates Condition Status Dysuria ICD-9: 788.1 ICD-10: R30.0 08/26/2018 Active [...] 300.02 ICD-10: F41.1 08/24/2016 Active Pain in left knee ICD-9: 719.46 ICD-10: M25.562 07/31/2017 Active Pain in [...] Fill Instructions hydrochlorothiazide 25 mg tablet RxNorm: 591512 1 TABLET(S) PO DAILY 09/19/2018 12/17/2018 Active Saxenda 3 mg/0.5 mL (18 mg/3 mL) subcutaneous pen injector RxNorm: 5075834 1.8 Milligram(s) SQ daily 08/28/2018 12/25/2018 Active disp qty sufficient- [place] approved Saxenda 3 mg/0.5 mL (18 mg/3 mL) subcutaneous pen injector RxNorm: 5376573 1.8 Milligram(s) SQ daily 08/28/2018 08/27/2018 Inactive disp qty sufficient Saxenda 3 mg/0.5 mL (18 mg/3 mL) subcutaneous pen injector RxNorm: 7419215 1.8 Milliliter(s) SQ daily 08/27/2018 08/27/2018 Inactive disp qty sufficient Xanax 1 mg tablet RxNorm: 825931 1-2 Tablet(s) PO QHS as needed insomnia 08/26/2018 11/23/2018 Active metformin 500 mg tablet RxNorm: 166876 1 Tablet(s) PO BID 08/26/2018 12/23/2018 Active Keflex 500 mg capsule RxNorm: 104382 1 Capsule(s) PO TID 08/26/2018 09/01/2018 Inactive Protonix 40 mg tablet,delayed release RxNorm: 019992 1 TABLET(S) PO DAILY 08/12/2018 12/09/2018 Active metformin 500 mg tablet RxNorm: 717167 1 Tablet(s) PO daily 08/12/2018 08/25/2018 Inactive Lasix 20 mg tablet RxNorm: 818003 1 TABLET(S) PO DAILY NEEDED EDEMA 08/06/2018 10/04/2018 Active potassium chloride ER 10 mEq tablet,extended release RxNorm: 906801 1 TABLET(S) PO DAILY NEEDED TO TAKE WHEN YOU TAKE THE LASIX 08/06/2018 10/04/2018 Active Zorvolex 35 mg capsule RxNorm: 1641169 TAKE 1 CAPSULE BY MOUTH THREE (3) TIMES DAILY 08/02/2018 11/29/2018 Active prednisone 20 mg tablet RxNorm: 334439 Tablet(s) PO 07/17/2018 No Stop Date Active 20mg tonight then starting tomorrow: 60,60,40,40,20,20,10,10 Remeron 15 mg tablet RxNorm: 680984 1/2 Tablet(s) PO QHS 07/17/2018 2019 Active Tamiflu 75 mg capsule RxNorm: 492498 1 Capsule(s) PO BID 07/17/2018 07/21/2018 Inactive Kenalog 40 mg/mL suspension for injection RxNorm: 2597276 Milliliter(s) Inj 07/17/2018 07/17/2018 Inactive Lexapro 20 mg tablet RxNorm: 714913 1 TABLET(S) PO DAILY 07/15/2018 11/11/2018 Active potassium chloride ER 10 mEq tablet,extended release RxNorm: 643536 1 Tablet(s) PO daily as needed to take when you take the lasix 07/04/2018 08/02/2018 Inactive Lasix 20 mg tablet RxNorm: 616039 1 Tablet(s) PO daily as needed edema 07/04/2018 08/02/2018 Inactive Cymbalta 30 mg capsule,delayed release RxNorm: 610752 1 CAPSULE(S) PO DAILY TO BE TAKEN WITH 60MG TO=90MG 07/01/2018 07/14/2018 Inactive hydrochlorothiazide 25 mg tablet RxNorm: 011149 1 TABLET(S) PO DAILY 06/27/2018 09/18/2018 Inactive Remeron 15 mg tablet RxNorm: 031443 1/2 Tablet(s) PO QHS 06/20/2018 07/16/2018 Inactive Lasix 20 mg tablet RxNorm: 172349 1 Tablet(s) PO daily 06/19/2018 06/21/2018 Inactive potassium chloride ER 10 mEq tablet,extended release RxNorm: 415875 1 Tablet(s) PO daily 06/19/2018 07/03/2018 Inactive Lexapro 20 mg tablet RxNorm: 597168 1 Tablet(s) PO daily 06/19/2018 07/14/2018 Inactive gabapentin 300 mg capsule RxNorm: 611582 1 CAPSULE(S) PO TID 06/14/2018 08/12/2018 Inactive Ambien 10 mg tablet RxNorm: 927942 1 Tablet(s) PO QHS as needed insomnia 06/10/2018 09/07/2018 Inactive Cymbalta 30 mg capsule,delayed release RxNorm: 997141 1 Capsule(s) PO daily 06/03/2018 06/02/2018 Inactive Cymbalta 30 mg capsule,delayed release RxNorm: 123140 1 Capsule(s) PO daily to be taken with 60mg to=90mg 06/03/2018 06/30/2018 Inactive Protonix 40 mg tablet,delayed release RxNorm: 676489 1 TABLET(S) PO DAILY 05/20/2018 08/11/2018 Inactive gabapentin 300 mg capsule RxNorm: 888611 1 CAPSULE(S) PO TID 05/15/2018 06/13/2018 Inactive Protonix 40 mg tablet,delayed release RxNorm: 343044 1 Tablet(s) PO daily 04/24/2018 05/19/2018 Inactive Zorvolex 35 mg capsule RxNorm: 4852642 TAKE 1 CAPSULE BY MOUTH THREE (3) TIMES DAILY 04/22/2018 08/01/2018 Inactive hydrochlorothiazide 25 mg tablet RxNorm: 454738 1 TABLET(S) PO DAILY 04/08/2018 06/26/2018 Inactive Zorvolex 35 mg capsule RxNorm: 1093932 TAKE 1 CAPSULE BY MOUTH THREE (3) TIMES DAILY 03/27/2018 04/21/2018 Inactive gabapentin 300 mg capsule RxNorm: 376307 1 CAPSULE(S) PO TID 03/25/2018 04/14/2018 Inactive hydrochlorothiazide 25 mg tablet RxNorm: 361018 1 Tablet(s) PO daily 03/14/2018 04/07/2018 Inactive Victoza 2-Marek 0.6 mg/0.1 mL (18 mg/3 mL) subcutaneous pen injector RxNorm: 596952 Milligram(s) INJECT 1.8 MG SUB-Q ONCE DAILY 02/27/2018 08/20/2019 Active qty sufficient atorvastatin 20 mg tablet RxNorm: 909608 1 Tablet(s) PO daily 02/27/2018 05/22/2019 Active Cymbalta 60 mg capsule,delayed release RxNorm: 336355 TAKE 1 CAPSULE BY MOUTH DAILY 02/27/2018 02/26/2018 Inactive Cymbalta 60 mg capsule,delayed release RxNorm: 743786 1 Capsule(s) PO daily TAKE 1 CAPSULE BY MOUTH DAILY 02/27/2018 07/14/2018 Inactive gabapentin 300 mg capsule RxNorm: 839135 1 Capsule(s) PO TID 02/27/2018 03/24/2018 Inactive Xanax 1 mg tablet RxNorm: 717820 1-2 Tablet(s) PO QHS as needed insomnia 02/27/2018 05/27/2018 Inactive meloxicam 7.5 mg tablet RxNorm: 973130 1 Tablet(s) PO daily 1 TABLET(S) PO DAILY 02/27/2018 04/14/2018 Inactive Ambien 10 mg tablet RxNorm: 461676 1 Tablet(s) PO QHS as needed insomnia 02/27/2018 05/25/2018 Inactive atorvastatin 20 mg tablet RxNorm: 729986 1 Tablet(s) PO daily 02/05/2018 02/26/2018 Inactive atorvastatin 20 mg tablet RxNorm: 584841 1 Tablet(s) PO daily 02/05/2018 02/04/2018 Inactive meloxicam 7.5 mg tablet RxNorm: 746405 1 TABLET(S) PO DAILY 02/01/2018 02/26/2018 Inactive oxycodone 15 mg tablet RxNorm: 0433349 1 Tablet(s) PO QID as needed 01/07/2018 02/19/2018 Inactive lactulose 20 gram/30 mL oral solution RxNorm: 688190 15-30 Milliliter(s) PO BID as needed 12/31/2017 02/20/2018 Inactive meloxicam 7.5 mg tablet RxNorm: 237661 1 TABLET(S) PO DAILY 12/13/2017 01/31/2018 Inactive Zorvolex 35 mg capsule RxNorm: 9819007 1 Capsule(s) PO TID 12/13/2017 02/20/2018 Inactive Ambien 10 mg tablet RxNorm: 580662 1 Tablet(s) PO QHS as needed insomnia 12/04/2017 02/26/2018 Inactive oxycodone 15 mg tablet RxNorm: 6584560 1 Tablet(s) PO QID as needed 12/04/2017 01/06/2018 Inactive prednisone 20 mg tablet RxNorm: 587577 2 Tablet(s) PO daily 12/04/2017 12/08/2017 Inactive Victoza 2-Marek 0.6 mg/0.1 mL (18 mg/3 mL) subcutaneous pen injector RxNorm: 612922 Milligram(s) INJECT 1.8 MG SUB-Q ONCE DAILY 11/20/2017 02/26/2018 Inactive meloxicam 7.5 mg tablet RxNorm: 486040 1 Tablet(s) PO daily 11/20/2017 12/12/2017 Inactive phentermine 37.5 mg tablet RxNorm: 964997 1 Tablet(s) PO daily 11/20/2017 12/19/2017 Inactive Ambien 10 mg tablet RxNorm: 240711 1 Tablet(s) PO QHS as needed insomnia 11/20/2017 12/18/2017 Inactive Xanax 1 mg tablet RxNorm: 167650 1.5 Tablet(s) PO QHS as needed insomnia 11/20/2017 02/26/2018 Inactive hydrocodone 7.5 mg-acetaminophen 325 mg tablet RxNorm: 377672 1 Tablet(s) PO TID as needed 11/16/2017 01/06/2018 Inactive Cymbalta 60 mg capsule,delayed release RxNorm: 986754 TAKE 1 CAPSULE BY MOUTH DAILY 11/02/2017 02/26/2018 Inactive Xanax 1 mg tablet RxNorm: 992809 1 Tablet(s) PO BID PRN as needed anxiety 10/04/2017 11/19/2017 Inactive Victoza 2-Marek 0.6 mg/0.1 mL (18 mg/3 mL) subcutaneous pen injector RxNorm: 467583 INJECT 1.8 MG SUB-Q ONCE DAILY 10/04/2017 11/19/2017 Inactive hydrocodone 7.5 mg-acetaminophen 325 mg tablet RxNorm: 559194 1 Tablet(s) PO TID as needed 09/17/2017 11/15/2017 Inactive hydrocodone 7.5 mg-acetaminophen 325 mg tablet RxNorm: 619710 1 Tablet(s) PO TID as needed 09/10/2017 09/16/2017 Inactive prednisone 10 mg tablet RxNorm: 357060 Tablet(s) PO 09/10/2017 11/13/2017 Inactive 6,5,4,3,2,1 Zorvolex 35 mg capsule RxNorm: 7350892 1 Capsule(s) PO TID 09/07/2017 11/13/2017 Inactive Ambien 10 mg tablet RxNorm: 909257 1 Tablet(s) PO QHS as needed insomnia 08/29/2017 11/19/2017 Inactive Zorvolex 35 mg capsule RxNorm: 6204126 1 Capsule(s) PO TID 08/28/2017 09/06/2017 Inactive Zorvolex 35 mg capsule RxNorm: 3431450 1 Capsule(s) PO TID 08/13/2017 08/27/2017 Inactive Zorvolex 35 mg capsule RxNorm: 2063308 1 Capsule(s) PO TID 08/13/2017 08/12/2017 Inactive prednisone 20 mg tablet RxNorm: 815366 2 Tablet(s) PO daily 07/31/2017 08/04/2017 Inactive hydrocodone 7.5 mg-acetaminophen 325 mg tablet RxNorm: 090975 1 Tablet(s) PO TID as needed 07/31/2017 09/09/2017 Inactive Zorvolex 35 mg capsule RxNorm: 3490096 1 Capsule(s) PO TID as needed 07/31/2017 11/13/2017 Inactive ceftriaxone 500 mg solution for injection RxNorm: 7106297 1 Milliliter(s) Inj 06/27/2017 06/27/2017 Inactive Keflex 500 mg capsule RxNorm: 393538 1 Capsule(s) PO TID 06/27/2017 07/03/2017 Inactive Ambien 10 mg tablet RxNorm: 589687 1 Tablet(s) PO daily 05/29/2017 08/25/2017 Inactive tramadol 50 mg tablet RxNorm: 901380 1 Tablet(s) PO TID as needed 05/29/2017 07/27/2017 Inactive Xanax 1 mg tablet RxNorm: 793891 1 Tablet(s) PO BID PRN as needed anxiety 05/21/2017 10/03/2017 Inactive alprazolam 1 mg tablet RxNorm: 786548 1 Tablet(s) PO BID as needed 05/21/2017 06/19/2017 Inactive Celebrex 200 mg capsule RxNorm: 003918 1 CAPSULE(S) PO BID 05/04/2017 11/05/2017 Inactive prednisone 20 mg tablet RxNorm: 906990 2 Tablet(s) PO daily 04/20/2017 04/24/2017 Inactive Ambien 10 mg tablet RxNorm: 163332 Tablet(s) PO 04/20/2017 05/28/2017 Inactive hydrocodone 5 mg-acetaminophen 325 mg tablet RxNorm: 715146 1 Tablet(s) PO QID as needed 04/20/2017 08/01/2017 Inactive Cymbalta 60 mg capsule,delayed release RxNorm: 255498 1 Capsule(s) PO daily 04/20/2017 02/26/2018 Inactive Victoza 2-Marek 0.6 mg/0.1 mL (18 mg/3 mL) subcutaneous pen injector RxNorm: 932745 INJECT 1.8 MG SUB-Q ONCE DAILY 03/26/2017 09/21/2017 Inactive diazepam 2 mg tablet RxNorm: 581847 1 Tablet(s) PO QHS as needed insomnia 01/28/2017 05/07/2017 Inactive Victoza 2-Marek 0.6 mg/0.1 mL (18 mg/3 mL) subcutaneous pen injector RxNorm: 836822 1.8 Milligram(s) SQ daily 01/26/2017 03/25/2017 Inactive dispense quantity sufficient Tussionex Pennkinetic ER 10 mg-8 mg/5 mL suspension,extended release RxNorm: 6261375 5 Milliliter(s) PO BID 01/11/2017 01/15/2017 Inactive Xanax 1 mg tablet RxNorm: 742451 1 Tablet(s) PO BID PRN as needed anxiety 01/11/2017 05/20/2017 Inactive Zithromax Z-Marek 250 mg tablet RxNorm: 331787 1 Tablet(s) PO UD 01/11/2017 01/15/2017 Inactive zpack albuterol sulfate 2.5 mg/3 mL (0.083 %) solution for nebulization RxNorm: 946043 3 Milliliter(s) INH UD 01/11/2017 11/13/2017 Inactive prednisone 20 mg tablet RxNorm: 600082 2 Tablet(s) PO daily 01/11/2017 01/15/2017 Inactive Kenalog 40 mg/mL suspension for injection RxNorm: 1912940 1.5 Milliliter(s) Inj 01/11/2017 01/11/2017 Inactive Celebrex 200 mg capsule RxNorm: 260732 1 Capsule(s) PO BID 11/30/2016 02/27/2017 Inactive Ambien 5 mg tablet RxNorm: 142081 1 Tablet(s) PO HS PRN 11/30/2016 08/07/2017 Inactive trazodone 50 mg tablet RxNorm: 604921 1/2 to 1 Tablet(s) PO QHS 10/13/2016 10/12/2016 Inactive trazodone 50 mg tablet RxNorm: 774536 1/2 to 1 Tablet(s) PO QHS 10/13/2016 11/29/2016 Inactive Belsomra 10 mg tablet RxNorm: 4924234 1 Tablet(s) PO QHS 09/28/2016 11/29/2016 Inactive may increase to 20mg if 10mg not effective Cymbalta 60 mg capsule,delayed release RxNorm: 780078 1 Capsule(s) PO daily 08/24/2016 03/21/2017 Inactive Xanax 1 mg tablet RxNorm: 196696 1 Tablet(s) PO BID PRN as needed anxiety 08/24/2016 01/10/2017 Inactive Victoza 2-Marek 0.6 mg/0.1 mL (18 mg/3 mL) subcutaneous pen injector RxNorm: 480350 Milligram(s) SQ 08/24/2016 08/23/2016 Inactive Victoza 2-Marek 0.6 mg/0.1 mL (18 mg/3 mL) subcutaneous pen injector RxNorm: 415548 1.8 Milligram(s) SQ 08/24/2016 01/25/2017 Inactive Vitamin D2 50,000 unit capsule RxNorm: 772531 1 Capsule(s) PO QW 07/13/2016 10/10/2016 Inactive Cymbalta 30 mg capsule,delayed release RxNorm: 125275 1 Capsule(s) PO daily 07/13/2016 08/23/2016 Inactive Belviq XR 20 mg tablet,extended release RxNorm: 2536656 1 Tablet(s) PO daily 05/30/2016 05/29/2016 Inactive prednisone 20 mg tablet RxNorm: 566086 2 Tablet(s) PO daily 05/30/2016 06/03/2016 Inactive prednisone 20 mg tablet RxNorm: 422033 2 Tablet(s) PO daily 05/30/2016 05/29/2016 Inactive Belviq XR 20 mg tablet,extended release RxNorm: 1944279 1 Tablet(s) PO daily 05/30/2016 06/28/2016 Inactive cyclobenzaprine 5 mg tablet RxNorm: 487384 1-2 Tablet(s) PO TID as needed 05/19/2016 05/23/2016 Inactive metoprolol succinate ER 25 mg tablet,extended release 24 hr RxNorm: 886562 1 Tablet(s) PO QPM 04/10/2016 04/13/2016 Inactive metoprolol succinate ER 25 mg tablet,extended release 24 hr RxNorm: 685296 1 Tablet(s) PO QPM 04/10/2016 04/09/2016 Inactive escitalopram 10 mg tablet RxNorm: 679383 1 Tablet(s) PO daily 03/16/2016 07/12/2016 Inactive estradiol 1 mg tablet RxNorm: 124903 1 Tablet(s) PO every other day 03/16/2016 05/15/2016 Inactive Kenalog 40 mg/mL suspension for injection RxNorm: 6692948 Milliliter(s) Inj 02/28/2016 02/28/2016 Inactive Zithromax Z-Marek 250 mg tablet RxNorm: 632770 1 Tablet(s) PO UD 02/28/2016 03/03/2016 Inactive zpack Lexapro 10 mg tablet RxNorm: 847976 1 Tablet(s) PO daily 09/27/2015 02/27/2016 Inactive Lexapro 10 mg tablet RxNorm: 620815 1 Tablet(s) PO daily 08/30/2015 09/26/2015 Inactive Vimovo 500 mg-20 mg tablet,immediate and delay release RxNorm: 703780 1 Tablet(s) PO BID as needed for pain 08/30/2015 09/26/2015 Inactive azithromycin 250 mg tablet RxNorm: 112064 1 Tablet(s) PO UD 2 pills on day #1, then one pill daily x 4 days 07/15/2015 01/12/2016 Inactive hydrocodone 10 mg-acetaminophen 325 mg tablet RxNorm: 485315 1 Tablet(s) PO QID 06/16/2015 01/12/2016 Inactive pramipexole 0.5 mg tablet RxNorm: 157698 1 Tablet(s) PO QPM 06/16/2015 07/14/2015 Inactive Celebrex 200 mg capsule RxNorm: 718430 1 Capsule(s) PO daily 05/03/2015 05/02/2015 Inactive Celebrex 200 mg capsule RxNorm: 396692 1 Capsule(s) PO daily 05/03/2015 01/12/2016 Inactive hydrocodone 7.5 mg-acetaminophen 325 mg tablet RxNorm: 067785 1 Tablet(s) PO Q6 PRN 05/03/2015 06/15/2015 Inactive Mobic 15 mg tablet RxNorm: 491052 1 Tablet(s) PO daily 04/02/2015 05/02/2015 Inactive hydrocodone 7.5 mg-acetaminophen 325 mg tablet RxNorm: 155286 1 Tablet(s) PO Q6 PRN 04/02/2015 05/02/2015 Inactive hydrocodone 5 mg-acetaminophen 325 mg tablet RxNorm: 927820 1 Tablet(s) PO Q6 as needed 12/11/2014 04/01/2015 Inactive Pennsaid 1.5 % topical drops RxNorm: 580785 40 Drop(s) TOP QID as needed 12/07/2014 02/04/2015 Inactive Apply 40 drops to each knee joint 4 times per day as needed for osteoarthritis pain estradiol 1 mg tablet RxNorm: 920381 1 Tablet(s) PO QHS No Start Date 03/15/2016 Inactive Xanax 0.5 mg tablet RxNorm: 011547 1 Tablet(s) PO Q6 as needed anxiety No Start Date 08/23/2016 Inactive Tylenol Extra Strength 500 mg tablet RxNorm: 313842 3 Tablet(s) PO BID after breakfast and after lunch No Start Date 01/12/2016 Inactive lactulose 20 gram/30 mL oral solution RxNorm: 551371 15-30 Milliliter(s) PO BID as needed No Start Date 12/30/2017 Inactive hydrocodone 5 mg-acetaminophen 325 mg tablet RxNorm: 647567 1 Tablet(s) PO Q6 as needed No Start Date 12/10/2014 Inactive Phenergan-Codeine syrup RxNorm: 5-10 Milliliter(s) PO QID as needed No Start Date 11/13/2017 Inactive ibuprofen 200 mg capsule RxNorm: 045492 4 Capsule(s) PO QID as needed No Start Date 04/01/2015 Inactive Medication Administered Medication Codes Instructions Start Date Status Kenalog 40 mg/mL suspension for injection RxNorm: 3281476 Milliliter 07/17/2018 No longer Active ceftriaxone 500 mg solution for injection RxNorm: 6907625 1Milliliter 06/27/2017 No longer Active Kenalog 40 mg/mL suspension for injection RxNorm: 0671566 1.5Milliliter 01/11/2017 No longer Active Kenalog 40 mg/mL suspension for injection RxNorm: 8946966 Milliliter 02/28/2016 No longer Active Immunizations Vaccine Codes Date Status Influenza CVX: 141 03/16/2017 completed Pneumococcal (Adult) CVX: 33 03/16/2017 completed Assessments Condition Codes Effective Dates Type 2 diabetes mellitus with hyperglycemia ICD-10: [...] left knee ICD-10: M25.562 ICD-9: 719.46 02/27/2018 Pain in right ankle and joints [...] Visit Reason For Visit Effective Dates Notes diabetes mellitus 08/26/2018 diabetes mellitus 08/12/2018 sinus [...] sent to ref lab 08/27/2018 Influenza A+B Not891 Influ A+B Pos Influenza A 07/17/2018 %Hba1C Msk537 % HbA1c 27035- 6 6.7 % 11/20/2017 %Hba1C Qbq696 Gluc Ave 146 mg/dL 11/20/2017 Free T4 Agh115 FREE T4 0.76 ng/dL 05/21/2017 Tsh Ord6 hTSH II 1.27 uIU/mL 05/21/2017 Comp Metabolic Dly476 NA 140 mEq/L 05/21/2017 Comp Metabolic Sqy884 K 3.9 mEq/L 05/21/2017 Comp Metabolic Qwr718 CL 101 mEq/L 05/21/2017 Comp Metabolic Ran367 CO2 28.0 mEq/L 05/21/2017 Comp Metabolic Hin453 ANION GAP 15 05/21/2017 Comp Metabolic Qic221 GLUCOSE 155 mg/dL 05/21/2017 Comp Metabolic Aso824 Creat 0.7 mg/dL 05/21/2017 Comp Metabolic Vxt163 eGFR 87 ml/min/1.73m2 05/21/2017 Comp Metabolic Qoh391 BUN 16 mg/dL 05/21/2017 Comp Metabolic Qcf126 B/C Ratio 21.6 Ratio 05/21/2017 Comp Metabolic Hwe144 CALCIUM 9.4 mg/dL 05/21/2017 Comp Metabolic Azw495 ALK PHOS 132 U/L 05/21/2017 Comp Metabolic Qxr182 AST(SGOT) 16 U/L 05/21/2017 Comp Metabolic Gke077 ALT(SGPT) 20 U/L 05/21/2017 Comp Metabolic Dec044 BILI T 0.4 mg/dL 05/21/2017 Comp Metabolic Bps340 ALBUMIN 4.0 g/dL 05/21/2017 Comp Metabolic Mll205 TPRO 6.7 g/dL 05/21/2017 Comp Metabolic Ryy868 GLOB 2.7 g/dL 05/21/2017 Comp Metabolic Dpo074 A/G Ratio 1.5 Ratio 05/21/2017 Comp Metabolic Qce766 Osmo 284 mOsmo 05/21/2017 Cbc With Differential [...] 28.9 pg 05/21/2017 Cbc With Differential Ord2 Pratt% 5.5 % 05/21/2017 Cbc With Differential Ord2 [...] 2.65 K/ul 05/21/2017 Cbc With Differential Ord2 Pratt ABS# 0.8 K/ul 05/21/2017 Cbc With Differential Ord2 Eos ABS# 0.1 K/ul 05/21/2017 Cbc With Differential Ord2 Baso ABS# 0.0 K/ul 05/21/2017 Estrogens Total 631685 ESTROGENS, TOTAL 54 pg/mL 05/24/2016 Magnesium Ord90 Mag 1.8 mg/dL 05/19/2016 Tsh Ord6 hTSH II 1.56 uIU/mL 05/19/2016 Progesterone Prog 0.03 ng/mL 05/19/2016 Comp Metabolic Gct554 NA 136 mEq/L 05/19/2016 Comp Metabolic Iau391 K 4.3 mEq/L 05/19/2016 Comp Metabolic Ine049 CL 100 mEq/L 05/19/2016 Comp Metabolic Ndt973 CO2 28.0 mEq/L 05/19/2016 Comp Metabolic Tej487 ANION GAP 12 05/19/2016 Comp Metabolic Cbp704 GLUCOSE 138 mg/dL 05/19/2016 Comp Metabolic Xif605 Creat 0.7 mg/dL 05/19/2016 Comp Metabolic Zig124 eGFR 89 ml/min/1.73m2 05/19/2016 Comp Metabolic Prj752 BUN 15 mg/dL 05/19/2016 Comp Metabolic Smn649 B/C Ratio 20.5 Ratio 05/19/2016 Comp Metabolic Spd199 CALCIUM 9.7 mg/dL 05/19/2016 Comp Metabolic Csw859 ALK PHOS 106 U/L 05/19/2016 Comp Metabolic Knb290 AST(SGOT) 21 U/L 05/19/2016 Comp Metabolic Ocr696 ALT(SGPT) 24 U/L 05/19/2016 Comp Metabolic Gyk685 BILI T 0.4 mg/dL 05/19/2016 Comp Metabolic Hsp125 ALBUMIN 4.1 g/dL 05/19/2016 Comp Metabolic Dqy881 TPRO 7.1 g/dL 05/19/2016 Comp Metabolic Nyq108 GLOB 3.0 g/dL 05/19/2016 Comp Metabolic Gqr755 A/G Ratio 1.4 Ratio 05/19/2016 Comp Metabolic Cvl179 Osmo 275 mOsmo 05/19/2016 Cbc With Differential [...] 28.5 pg 05/19/2016 Cbc With Differential Ord2 Pratt% 6.5 % 05/19/2016 Cbc With Differential Ord2 [...] 2.33 K/ul 05/19/2016 Cbc With Differential Ord2 Pratt ABS# 0.6 K/ul 05/19/2016 Cbc With Differential Ord2 Eos ABS# 0.1 K/ul 05/19/2016 Cbc With Differential Ord2 Baso ABS# 0.0 K/ul 05/19/2016 C RAP A SC [id number] Strep A Negative 02/28/2016 Tsh Ord6 hTSH [...] 26.2 pg 08/16/2015 Cbc With Differential Ord2 Pratt% 7.1 % 08/16/2015 Cbc With Differential Ord2 [...] 2.32 K/ul 08/16/2015 Cbc With Differential Ord2 Pratt ABS# 0.6 K/ul 08/16/2015 Cbc With Differential Ord2 Eos ABS# 0.1 K/ul 08/16/2015 Cbc With Differential Ord2 Baso ABS# 0.0 K/ul 08/16/2015 Cbc With Differential Ord2 New Analyzer Notice Please note new ref ranges starting 05-26-2015 due to implemntation of new five part differential hematolgy analyzer. 08/16/2015 Comp Metabolic Zrj809 NA 132 mEq/L 08/16/2015 Comp Metabolic Ffm487 K 3.6 mEq/L 08/16/2015 Comp Metabolic Fve116 CL 99 mEq/L 08/16/2015 Comp Metabolic Pcy534 CO2 23.0 mEq/L 08/16/2015 Comp Metabolic Jis311 ANION GAP 14 08/16/2015 Comp Metabolic Wup532 GLUCOSE 101 mg/dL 08/16/2015 Comp Metabolic Dlq753 Creat 0.7 mg/dL 08/16/2015 Comp Metabolic Bpe441 eGFR 100 ml/min/1.73m2 08/16/2015 Comp Metabolic Rko931 BUN 10 mg/dL 08/16/2015 Comp Metabolic Rpg300 B/C Ratio 15.2 Ratio 08/16/2015 Comp Metabolic Imw822 CALCIUM 9.3 mg/dL 08/16/2015 Comp Metabolic Cpq888 ALK PHOS 100 U/L 08/16/2015 Comp Metabolic Wdy747 AST(SGOT) 14 U/L 08/16/2015 Comp Metabolic Vki987 ALT(SGPT) 11 U/L 08/16/2015 Comp Metabolic Fiz875 BILI T 0.3 mg/dL 08/16/2015 Comp Metabolic Scc774 ALBUMIN 3.9 g/dL 08/16/2015 Comp Metabolic Uux135 TPRO 7.1 g/dL 08/16/2015 Comp Metabolic Sfe951 GLOB 3.2 g/dL 08/16/2015 Comp Metabolic Pfe240 A/G Ratio 1.2 Ratio 08/16/2015 Comp Metabolic Lsb056 Osmo 264 mOsmo 08/16/2015 Lipid Ord30 CHOL 209 mg/dL 12/03/2014 Lipid Ord30 HDL 42.0 mg/dl 12/03/2014 Lipid Ord30 TRIG 219 mg/dL 12/03/2014 Lipid Ord30 LDL 123 mg/dL 12/03/2014 Lipid Ord30 C/HDL 5.0 Ratio 12/03/2014 Comp Metabolic Ajv760 NA 132 mEq/L 12/03/2014 Comp Metabolic Ewf083 K 4.0 mEq/L 12/03/2014 Comp Metabolic Phi851 CL 101 mEq/L 12/03/2014 Comp Metabolic Tkg038 CO2 22.0 mEq/L 12/03/2014 Comp Metabolic Cij714 ANION GAP 13 12/03/2014 Comp Metabolic Vga410 GLUCOSE 123 mg/dL 12/03/2014 Comp Metabolic Jzd475 Creat 0.7 mg/dL 12/03/2014 Comp Metabolic Amu272 eGFR 97 ml/min/1.73m2 12/03/2014 Comp Metabolic Hza115 BUN 10 mg/dL 12/03/2014 Comp Metabolic Vug517 B/C Ratio 14.7 Ratio 12/03/2014 Comp Metabolic Twg669 CALCIUM 9.2 mg/dL 12/03/2014 Comp Metabolic Quo944 ALK PHOS 88 U/L 12/03/2014 Comp Metabolic Dsa226 AST(SGOT) 18 U/L 12/03/2014 Comp Metabolic Qam899 ALT(SGPT) 17 U/L 12/03/2014 Comp Metabolic Bgh617 BILI T 0.5 mg/dL 12/03/2014 Comp Metabolic Czq119 ALBUMIN 3.9 g/dL 12/03/2014 Comp Metabolic Imn177 TPRO 6.8 g/dL 12/03/2014 Comp Metabolic Okb739 GLOB 2.9 g/dL 12/03/2014 Comp Metabolic Nfh820 A/G Ratio 1.3 Ratio 12/03/2014 Comp Metabolic Ffa605 Osmo 265 mOsmo 12/03/2014 Tsh Ord6 hTSH [...] Result Effective Dates Constitutional No recent illness 08/26/2018 Constitutional No [...] lips 08/12/2018 None Full Exam - General 1995 Ears/Nose/Throat [...] lips 06/19/2018 None Full Exam - General 1995 [...] clear 04/17/2018 None Full Exam - General 1995 Ears/Nose/Throat lips/teeth/gingiva Overall: benign lips 04/17/2018 None [...] General 1995 Eyes conjunctiva/eyelids Overall: cornea clear 05/21/2017 None [...] contact 07/13/2016 None Full Exam - General 1995 Constitutional general appearance Nourishment: obese 05/19/2016 None Full Exam - General 1995 Constitutional general appearance Evidence of Distress: in no acute distress 05/19/2016 None Full Exam - General 1995 Eyes conjunctiva/eyelids Overall: conjunctiva clear 05/19/2016 None Full Exam - General 1995 Eyes conjunctiva/eyelids Overall: cornea clear 05/19/2016 None [...] Procedure Codes Date THER/PROPH/DIAG INJ SC/IM CPT-4: 85895 07/17/2018 TRIAMCINOLONE ACET INJ NOS CPT-4: J3301 07/17/2018 THER/PROPH/DIAG INJ SC/IM CPT-4: 01556 06/27/2017 ROCEPHIN, PER 250 MG CPT- 4: J0696 06/27/2017 IMMUNIZATION ADMIN CPT- 4: 28331 03/16/2017 FLU VAC NO PRSV 4 FLETCHER 3 YRS+ CPT-4: 41895 03/16/2017 Pneumococcal Polysaccharide Vaccine, 23-Valent, Ad CPT-4: 81243 03/16/2017 IMMUNIZATION ADMIN EACH ADD CPT-4: 14659 03/16/2017 TRIAMCINOLONE ACET INJ NOS CPT-4: J3301 01/11/2017 TRIAMCINOLONE ACET INJ NOS CPT-4: J3301 02/28/2016 Vital Signs Date Vital 08/26/2018 Blood Pressure 1: 126/72 Code: 8480-6 Heart Rate 1: 68 bpm Height: 5'6" SpO2: 94% Weight: 08/12/2018 Blood Pressure 1: 124/68 Code: 8480-6 BMI: 38.4 Code: 78275-6 Heart Rate 1: 79 bpm Height: 5'6" SpO2: 94% Weight: 238 lbs 07/17/2018 Blood Pressure 1: 126/72 Code: 8480-6 BMI: 38.6 Code: 04559-1 Heart Rate 1: 85 bpm Height: 5'6" SpO2: 95% Temperature: 36.9 (C) / 98.4 (F) Weight: 239 lbs 07/04/2018 Blood Pressure 1: 132/76 Code: 8480-6 Heart Rate 1: 80 bpm Height: SpO2: 97% Weight: 06/19/2018 Blood Pressure 1: 124/74 Code: 8480-6 BMI: 38.6 Code: 99676-2 Heart Rate 1: 85 bpm Height: 5'6" SpO2: 95% Weight: 239 lbs 04/24/2018 Blood Pressure 1: 128/74 Code: 8480-6 BMI: 37.8 Code: 03295-0 Heart Rate 1: 107 bpm Height: 5'6" SpO2: 98% Weight: 234 lbs 04/17/2018 Blood Pressure 1: 120/64 Code: 8480-6 BMI: 37.8 Code: 53535-4 Heart Rate 1: 84 bpm Height: 5'6" SpO2: 96% Weight: 234 lbs 03/14/2018 Blood Pressure 1: 140/82 Code: 8480-6 BMI: 37.8 Code: 27838-8 Heart Rate 1: 85 bpm Height: 5'6" SpO2: 98% Weight: 234 lbs 02/27/2018 Blood Pressure 1: 142/68 Code: 8480-6 BMI: 36.5 Code: 29093-1 Heart Rate 1: 84 bpm Height: 5'6" SpO2: 97% Weight: 226 lbs 12/19/2017 Blood Pressure 1: 130/86 Code: 8480-6 BMI: 35.7 Code: 69072-2 Heart Rate 1: 94 bpm Height: 5'6" Weight: 221 lbs 12/04/2017 Blood Pressure 1: 138/78 Code: 8480-6 BMI: 36.6 Code: 67706-9 Heart Rate 1: 94 bpm Height: 5'6" SpO2: 98% Weight: 227 lbs 11/20/2017 Weight: 233 lbs 09/10/2017 Blood Pressure 1: 132/86 Code: 8480-6 Heart Rate 1: 86 bpm Height: Weight: 08/14/2017 Blood Pressure 1: 120/74 Code: 8480-6 BMI: 33.9 Code: 38720-0 Heart Rate 1: 92 bpm Height: 5'6" SpO2: 94% Weight: 210 lbs 07/31/2017 Blood Pressure 1: 140/80 Code: 8480-6 BMI: 33.9 Code: 81788-5 Heart Rate 1: 96 bpm Height: 5'6" SpO2: 97% Weight: 210 lbs 06/27/2017 Blood Pressure 1: 128/80 Code: 8480-6 BMI: 33.9 Code: 75299-0 Heart Rate 1: 85 bpm Height: 5'6" [...] 1: 126/74 Code: 8480-6 BMI: 39.9 Code: 13036-4 Heart Rate 1: 79 bpm Height: 5'6" SpO2: 97% Weight: 247 lbs 01/26/2017 Blood Pressure 1: 132/74 Code: 8480-6 BMI: 37.8 Code: 00441-6 Heart Rate 1: 74 bpm Height: 5'6" SpO2: 97% Weight: 234 lbs 01/11/2017 Blood Pressure 1: 118/68 Code: 8480-6 BMI: 38.7 Code: 97328-9 Heart Rate 1: 91 bpm Height: 5'6" SpO2: 96% Weight: 240 lbs 11/30/2016 Blood Pressure 1: 13276 Code: 8480-6 BMI: 38.3 Code: 26465-0 Heart Rate 1: 71 bpm Height: 5'6" SpO2: 92% Weight: 237 lbs 09/28/2016 Blood Pressure 1: 122/72 Code: 8480-6 BMI: 39.1 Code: 93606-2 Heart Rate 1: 88 bpm Height: 5'6" SpO2: 94% Weight: 242 lbs 08/24/2016 Blood Pressure 1: 130/87 Code: 8480-6 BMI: 41.5 Code: 01586-5 Heart Rate 1: 95 bpm Height: 5'6" Respiratory Rate: 16 bpm SpO2: 98% Temperature: 36.9 (C) / 98.5 (F) Weight: 257 lbs 07/13/2016 Blood Pressure 1: 132/84 Code: 8480-6 BMI: 42.0 Code: 53084-0 Heart Rate 1: 73 bpm Height: 5'6" SpO2: 97% Weight: 260 lbs 05/19/2016 Blood Pressure 1: 138/76 Code: 8480-6 BMI: 40.8 Code: 55373-6 Heart Rate 1: 80 bpm Height: 5'6" SpO2: 98% Weight: 253 lbs 03/16/2016 Blood Pressure 1: 122/70 Code: 8480-6 BMI: 40.4 Code: 88418-4 Heart Rate 1: 72 bpm Height: 5'6" SpO2: 98% Weight: 250 lbs 02/28/2016 Blood Pressure 1: 136/86 Code: 8480-6 BMI: 40.2 Code: 32602-5 Heart Rate 1: 87 bpm Height: 5'6" SpO2: 96% Temperature: 36.3 (C) / 97.3 (F) Weight: 249 lbs 01/13/2016 Blood Pressure 1: 120/76 Code: 8480-6 BMI: 40.4 Code: 72990-2 Heart Rate 1: 68 bpm Height: 5'6" SpO2: 97% Weight: 250 lbs 09/27/2015 Blood Pressure 1: 112/70 Code: 8480-6 BMI: 38.4 Code: 17387-1 Heart Rate 1: 76 bpm Height: 5'6" SpO2: 98% Weight: 238 lbs 08/30/2015 Blood Pressure 1: 144/82 Code: 8480-6 BMI: 39.5 Code: 95835-5 Heart Rate 1: 82 bpm Height: 5'6" SpO2: 97% Weight: 245 lbs 08/16/2015 Blood Pressure 1: 140/72 Code: 8480-6 BMI: 38.9 Code: 10449-2 Heart Rate 1: 72 bpm Height: 5'6" SpO2: 97% Weight: 241 lbs 07/15/2015 Blood Pressure 1: 128/80 Code: 8480-6 BMI: 39.3 Code: 83673-9 Heart Rate 1: 86 bpm Height: 5'6" SpO2: 98% Weight: 243 lbs 8 oz 06/16/2015 Blood Pressure 1: 146/86 Code: 8480-6 BMI: 39.6 Code: 92840-6 Heart Rate 1: 76 bpm Height: 5'6" SpO2: 97% Weight: 245 lbs 8 oz 04/02/2015 Blood Pressure 1: 132/86 Code: 8480-6 BMI: 40.7 Code: 79169-3 Heart Rate 1: 94 bpm Height: 5'6" SpO2: 98% Weight: 252 lbs 12/02/2014 Blood Pressure 1: 122/90 Code: 8480-6 BMI: 41.6 Code: 36684-7 Heart Rate 1: 77 bpm Height: 5'6" SpO2: 95% Weight: 258 lbs Functional Status No Functional Status data History of Present Illness Symptom Name Status Result Effective Date Notes Quality non-insulin dependent 08/26/2018 None Quality non-insulin [...] data Encounters Encounter Performer Location Codes Date 23237 EST. PATIENT, LEVEL III Diagnosis: Dysuria[ICD10: R30.0] Diagnosis: Other obesity due to excess calories[ICD10: E66.09] Diagnosis: Type 2 diabetes mellitus with hyperglycemia[ICD10: E11.65] Petra Trejo MD, [facility] CPT-4: 72390 08/26/2018 84657 EST. PATIENT, LEVEL III Diagnosis: Type 2 diabetes mellitus without complications[ICD10: E11.9] Petra Trejo MD, [facility] CPT-4: 37939 08/12/2018 03823 EST. PATIENT, LEVEL III Diagnosis: Acute laryngopharyngitis[ICD10: J06.0] Diagnosis: Cough[ICD10: R05] Diagnosis: Other allergic rhinitis[ICD10: J30.89] Diagnosis: Right upper quadrant pain[ICD10: R10.11] Petra Trejo MD, [facility] CPT-4: 64369 07/17/2018 80177 EST. PATIENT, LEVEL III Diagnosis: Generalized anxiety disorder[ICD10: F41.1] Diagnosis: Major depressive disorder, single episode, moderate[ICD10: F32.1] Petra Trejo MD, [facility] CPT-4: 32684 07/04/2018 13640 EST. PATIENT, LEVEL IV Diagnosis: Generalized anxiety disorder[ICD10: F41.1] Diagnosis: Major depressive disorder, single episode, moderate[ICD10: F32.1] Diagnosis: Other insomnia[ICD10: G47.09] Petra Trejo MD, [facility] CPT-4: 39456 06/19/2018 73043 EST. PATIENT, LEVEL IV Diagnosis: Right upper quadrant pain[ICD10: R10.11] Diagnosis: Other chest pain[ICD10: R07.89] Petra Trejo MD, [facility] CPT-4: 68708 04/24/2018 16166 EST. PATIENT, LEVEL III Diagnosis: Generalized anxiety disorder[ICD10: F41.1] Diagnosis: Major depressive disorder, recurrent, mild[ICD10: F33.0] Diagnosis: Essential (primary) hypertension[ICD10: I10] Diagnosis: Type 2 diabetes mellitus without complications[ICD10: E11.9] Petra Trejo MD, [facility] CPT-4: 65399 04/17/2018 35627 EST. PATIENT, LEVEL III Diagnosis: Localized edema[ICD10: R60.0] Diagnosis: Essential (primary) hypertension[ICD10: I10] Petra Trejo MD, [facility] CPT-4: 32517 03/14/2018 13209 EST. PATIENT, LEVEL III Diagnosis: Pain in left knee[ICD10: M25.562] Diagnosis: Other obesity due to excess calories[ICD10: E66.09] Diagnosis: Other insomnia[ICD10: G47.09] Diagnosis: Generalized anxiety disorder[ICD10: F41.1] Petra Trejo MD, [facility] CPT-4: 41821 02/27/2018 ([id number]) Miscellaneous no charge Diagnosis: Other obesity due to excess calories[ICD10: E66.09] Heidy Trejo MD, [facility] CPT-4: 93145 12/19/2017 02520 EST. PATIENT, LEVEL III Diagnosis: Pain in right foot[ICD10: M79.671] Diagnosis: Pain in right ankle and joints of right foot[ICD10: M25.571] Petra Trejo MD, [facility] CPT-4: 93965 12/04/2017 60833 EST. PATIENT, LEVEL III Diagnosis: Pain in left knee[ICD10: M25.562] Diagnosis: Type 2 diabetes mellitus without complications[ICD10: E11.9] Diagnosis: Other obesity due to excess calories[ICD10: E66.09] Petra Trejo MD, [facility] CPT-4: 46271 11/20/2017 69580 EST. PATIENT, LEVEL III Diagnosis: Pain in left knee[ICD10: M25.562] Petra Trejo MD, [facility] CPT-4: 81729 09/10/2017 46559 EST. PATIENT, LEVEL III Diagnosis: Encounter for follow-up examination after completed treatment for conditions other than malignant neoplasm[ICD10: Z09] Diagnosis: Pain in left knee[ICD10: M25.562] Petra Trejo MD, [facility] CPT-4: 96827 08/14/2017 58741 EST. PATIENT, LEVEL III Diagnosis: Pain in left knee[ICD10: M25.562] Petra Trejo MD, [facility] CPT-4: 47037 07/31/2017 14103 EST. PATIENT, LEVEL III Diagnosis: Acute laryngopharyngitis[ICD10: J06.0] Diagnosis: Other allergic rhinitis[ICD10: J30.89] Petra Trejo MD, [facility] CPT- 4: 86744 06/27/2017 71053 EST. PATIENT, LEVEL III Diagnosis: Ganglion, left hand[ICD10: M67.442] Diagnosis: Essential (primary) hypertension[ICD10: I10] Diagnosis: Generalized anxiety disorder[ICD10: F41.1] Diagnosis: Other insomnia[ICD10: G47.09] Petra Trejo MD, [facility] CPT-4: 86573 05/29/2017 42035 EST. PATIENT, LEVEL III Diagnosis: Essential (primary) hypertension[ICD10: I10] Diagnosis: Palpitations[ICD10: R00.2] Diagnosis: Generalized anxiety disorder[ICD10: F41.1] Petra Trejo MD, [facility] CPT-4: 06701 05/21/2017 61697 EST. PATIENT, LEVEL III Diagnosis: Pain in right foot[ICD10: M79.671] Petra Trejo MD, [facility] CPT-4: 73616 04/20/2017 37546 EST. PATIENT, LEVEL IV Diagnosis: Other insomnia[ICD10: G47.09] Diagnosis: Other skin changes[ICD10: R23.8] Petra Treoj MD, [facility] CPT-4: 85607 01/26/2017 48089 EST. PATIENT, LEVEL IV Diagnosis: Acute bronchitis due to other specified organisms[ICD10: J20.8] Petra Trejo MD, [facility] CPT-4: 05212 01/11/2017 ([id number]) 97202 EST. PATIENT, LEVEL IV Diagnosis: Essential (primary) hypertension[ICD10: I10] Diagnosis: Other insomnia[ICD10: G47.09] Diagnosis: Primary generalized (osteo)arthritis[ICD10: M15.0] Diagnosis: Other obesity due to excess calories[ICD10: E66.09] Claudette Trejo MD, [facility] CPT-4: 44631 11/30/2016 ([id number]) 48022 EST. PATIENT, LEVEL III Diagnosis: Other obesity due to excess calories[ICD10: E66.09] Diagnosis: Other insomnia[ICD10: G47.09] Diagnosis: Generalized anxiety disorder[ICD10: F41.1] Claudette Trejo MD, [facility] CPT-4: 27847 09/28/2016 ([id number]) 63924 EST. PATIENT, LEVEL IV Diagnosis: Generalized anxiety disorder[ICD10: F41.1] Diagnosis: Major depressive disorder, recurrent, mild[ICD10: F33.0] Diagnosis: Other obesity due to excess calories[ICD10: E66.09] Diagnosis: Other insomnia[ICD10: G47.09] Claudette Trejo MD, [facility] CPT-4: 26123 08/24/2016 ([id number]) 57099 EST. PATIENT, LEVEL III Diagnosis: Other obesity due to excess calories[ICD10: E66.09] Diagnosis: Major depressive disorder, recurrent, moderate[ICD10: F33.1] Diagnosis: Low back pain[ICD10: M54.5] Heidy Trejo MD, [facility] CPT-4: 00740 07/13/2016 95413 EST. PATIENT, LEVEL IV Diagnosis: Other muscle spasm[ICD10: M62.838] Diagnosis: Generalized anxiety disorder[ICD10: F41.1] Diagnosis: Major depressive disorder, recurrent, moderate[ICD10: F33.1] Diagnosis: Other insomnia[ICD10: G47.09] Petra Trejo MD, [facility] CPT-4: 43785 05/19/2016 ([id number]) 69640 EST. PATIENT, LEVEL III Diagnosis: Generalized anxiety disorder[ICD10: F41.1] Diagnosis: Major depressive disorder, recurrent, moderate[ICD10: F33.1] Heidy Trejo MD, [facility] CPT-4: 59959 03/16/2016 ([id number]) 17957 EST. PATIENT, LEVEL III Diagnosis: Streptococcal pharyngitis[ICD10: J02.0] Claudette Trejo MD, [facility] CPT-4: 40276 02/28/2016 ([id number]) 28771 EST. PATIENT, LEVEL III Diagnosis: Generalized anxiety disorder[ICD10: F41.1] Diagnosis: Other obesity due to excess calories[ICD10: E66.09] Heidy Trejo MD, [facility] CPT-4: 29703 01/13/2016 ([id number]) 63846 EST. PATIENT, LEVEL III Diagnosis: Generalized anxiety disorder[ICD10: F41.1] Diagnosis: Major depressive disorder, recurrent, unspecified[ICD10: F33.9] Heidy Trejo MD, [facility] CPT-4: 43051 09/27/2015 99751 EST. PATIENT, LEVEL IV Diagnosis: Chronic pain syndrome[ICD10: G89.4] Diagnosis: Other obesity due to excess calories[ICD10: E66.09] Diagnosis: Essential (primary) hypertension[ICD10: I10] Diagnosis: Generalized anxiety disorder[ICD10: F41.1] Diagnosis: Excessive and frequent menstruation with regular cycle[ICD10: N92.0] Diagnosis: Pain in right knee[ICD10: M25.561] [facility] CPT-4: 36711 08/30/2015 54925 EST. PATIENT, LEVEL IV Diagnosis: Palpitations[ICD10: R00.2] Diagnosis: Other obesity due to excess calories[ICD10: E66.09] Petra Trejo MD, [facility] CPT-4: 82383 08/16/2015 ([id number]) 22858 EST. PATIENT, LEVEL IV Diagnosis: Pain in right knee[ICD10: M25.561] Diagnosis: Primary generalized (osteo)arthritis[ICD10: M15.0] Diagnosis: Acute maxillary sinusitis, unspecified[ICD10: J01.00] Heidy Trejo MD, [facility] CPT-4: 30239 07/15/2015 ([id number]) 62646 EST. PATIENT, LEVEL IV Diagnosis: Primary generalized (osteo)arthritis[ICD10: M15.0] Diagnosis: Restless legs syndrome[ICD10: G25.81] Diagnosis: Chronic pain syndrome[ICD10: G89.4] [facility] CPT- 4: 60181 06/16/2015 ([id number]) 53633 EST. PATIENT, LEVEL III Diagnosis: Primary generalized (osteo)arthritis[ICD10: M15.0] Diagnosis: Varicose veins of bilateral lower extremities with pain[ICD10: I83.813] Claudette Trejo MD, [facility] CPT-4: 33638 04/02/2015 ([id number]) OFFICE VISIT, NEW - LEVEL 3 Diagnosis: Osteoarthritis[ICD9: 715.90] Diagnosis: ABNORMAL WEIGHT GAIN[ICD9: 783.1] Diagnosis: Superficial thrombophlebitis[ICD9: 451.9] Carey Trejo MD, [facility] CPT-4: 24139 12/02/2014 Plan of Care Planned Activity Notes Codes Status Date Visit Plan: UTI - pt with positive [...] glucose control. 08/26/2018 Appointment: Petra Rivas WPtel: [address] [place], [place] [phone] (30 min) Complex 08/26/2018 Patient Education: Patient [...] control. 08/12/2018 Appointment: Petra Rivas WPtel: [phone] [facility] (30 min) Complex 08/12/2018 Patient Education: Patient [...] indicated 07/17/2018 Appointment: Petra Rivas WPtel: [phone] [facility] (30 min) Complex 07/17/2018 Patient Education: Patient [...] current medications. 07/04/2018 Appointment: [phone] [place] (30 min) Complex 07/04/2018 Patient Education: [...] patient. 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 04/17/2018 Appointment: Pet[facility] Rivas WPtel: [phone] [facility] (15 min) Moderate 04/17/2018 Patient Education: Patient [...] edema. 03/14/2018 Appointment: Petra Rivas WPtel: [phone] [facility] (15 min) Moderate 03/14/2018 Patient Education: Patient [...] ortho 02/27/2018 Appointment: Petra Rivas WPtel: [phone] [facility] (30 min) Complex 02/27/2018 Patient Education: Patient [...] improve. 12/04/2017 Appointment: Petra Rivas WPtel: [phone] [facility] [place] (15 min) Moderate 12/04/2017 Patient Education: [...] glucose control. 11/20/2017 Appointment: Petra Rivas WPtel: [facility] [place] (15 min) Moderate 11/20/2017 Patient Education: [...] improve. 09/10/2017 Appointment: Petra Rivas WPtel: [facility] [place] (15 min) Moderate 09/10/2017 Patient Education: [...] not improve. 08/14/2017 Appointment: Petra Rivas WPtel: [facility] [place] (30 min) Complex 08/14/2017 Patient Education: Patient Medication Summary Completed 08/14/2017 Appointment: Petra Rivas WPtel: [facility] [place] (15 min) Moderate 08/01/2017 Visit Plan: Knee pain - pt is to use RICE - Rest, Ice, Compression, Elevation - pt is to use crutches as directed - The pt is to use prn antiinflammatories to manage acute pain. The patient is to call the office if the pain is worsening or does not improve. 07/31/2017 Appointment: Petra Rivastel: [facility] (30 min) Complex 07/31/2017 Patient Education: Patient Medication Summary Completed 07/31/2017 Care Plan: X-RAY EXAM OF KNEE 3 [facility] : 01717-5 Pending 07/31/2017 Visit Plan: URI - Pt [...] allergy spray. 06/27/2017 Appointment: Petra Rivas WPtel: [facility] (15 min) Moderate 06/27/2017 Patient Education: Patient Medication Summary Completed 06/27/2017 Referral: Jignesh Quinn [facility] Patient informed. Referral info faxed. [...] Dr. Quinn 05/29/2017 Appointment: Petra Rivas WPtel: [facility] [place] (15 min) Moderate 05/29/2017 Patient Education: Patient Medication Summary Completed 05/29/2017 Care Plan: Referral Order SNOMED-CT : [id number] Pending 05/29/2017 Appointment: Petra Rivas WPtel: [facility] [place] (15 min) Moderate 05/28/2017 Visit Plan: [...] acute concerns. 05/21/2017 Appointment: Petra Rivas WPtel: [address] [place], [place] [phone] (15 min) Moderate 05/21/2017 Patient Education: Patient Medication Summary Completed 05/21/2017 Visit Plan: Right heel pain - will send RX, pt is to do stretches as directed - The pt is to use prn antiinflammatories to manage acute pain. The patient is to call the office if the pain is worsening or does not improve. 04/20/2017 Appointment: Petra Rivas WPtel: [facility] [place] (30 min) Complex 04/20/2017 Patient Education: Patient Medication Summary Completed 04/20/2017 Appointment: Petra Rivas WPtel: [address] [place], [place] [phone] [place] (30 min) Complex 03/29/2017 Patient Education: Patient Medication Summary Completed 03/16/2017 Referral: Maycol Quijano Referral Initiated 02/08/2017 Care Plan: Referral Order SNOMED-CT : [id number] Pending 01/28/2017 Visit Plan: Insomnia - Pt [...] concerns. 01/26/2017 Appointment: Petra Rivas WPtel: [facility] (30 min) Complex 01/26/2017 Patient Education: [...] worsen. 01/11/2017 Appointment: Petra Rivas WPtel: [facility] (15 min) Moderate 01/11/2017 Patient Education: [...] on use. 11/30/2016 Appointment: Claudette Savage WPtel: [address] [place] [address] (15 min) Moderate 11/30/2016 Patient Education: Patient Medication Summary Completed 11/30/2016 Patient Education: Obesity Completed 11/30/2016 Care Plan: BMI Above normal followup SELF-MGMT EDUC & TRAIN 1 PT Pending 11/30/2016 Visit Plan: Bviqqep-mhqzbyykal-alotkzmu with increase in cymbalta- no changes Insomnia-RX for belsomra provided and instructed on use Obesity- patient down 15#-no changes-continue diet/exercise-follow up in 2 months 09/28/2016 Appointment: Claudette Savage WPtel: [facility] [address] (15 min) Moderate 09/28/2016 Patient Education: Patient Medication Summary Completed 09/28/2016 Patient Education: Obesity Completed 09/28/2016 Care Plan: BMI Above normal followup SELF-MGMT EDUC & TRAIN 1 PT Pending 09/28/2016 Visit Plan: Qywobej-lcyekkqsom-qkmvrinm-increase cymbalta to 60mg daily. Increase xanax as [...] insomnia/anxiety 08/24/2016 Appointment: Claudette Savage WPtel: [phone] (15 min) Moderate 08/24/2016 Patient Education: Patient [...] improving. 07/13/2016 Appointment: Heidy Trejo WPtel: [phone] [facility] (15 min) Moderate 07/13/2016 Patient Education: [...] insomnia. 05/19/2016 Appointment: Petra Rivas WPtel: [facility] (30 min) Complex 05/19/2016 Patient Education: Patient [...] this patient. 03/16/2016 Appointment: Heidy Trejo WPtel: [phone] [facility] (15 min) Moderate 03/16/2016 Patient Education: [...] the swab. 02/28/2016 Appointment: Claudette Savage WPtel: [phone] [phone] (10 min) Simple 02/28/2016 Patient Education: Patient [...] lexapro 01/13/2016 [facility]ment[phone] [place] (15 min) Moderate 01/13/2016 Patient [...] 09/27/2015 Care Plan: Referral Order SNOMED-CT : [id number] Pending 08/31/2015 Visit Plan: Anxiety - the [...] improvement. 07/15/2015 Appointment: [phone] [place] (15 min) Moderate 07/15/2015 Patient [...] clinic 04/02/2015 Appointment: Claudette Savage [facility]Ptel: [phone] [place] (15 min) Moderate 04/02/2015 Patient Education: [...] Summary Completed 12/02/2014 Referral: Belle Hoffman WPtel: [phone] [facility] they will call and set the appt with her Initiated Referral: Maycol Quijano Referral Initiated Referral: Belle Hoffman WPtel: [phone] [facility] [place] Referral Initiated Referral: Jignesh Quinn [place] Referral Initiated Instructions Comment We will check a D-Dimer lab today. [...] CMP, Fasting lipid profile and TSH. . RUQ pain - pt has had [...] she is to follow up with her computer systems information director . Chronic Depression and anxiety - the [...] - will refer to Dr. Hoffman . Insomnia - Pt has been advised to increase the light in the house during the day, and start dimming the lights during the evening hours. Pt has been advised to cut out caffeine after 5pm. Daytime napping worsens night time insomnia. Changing mole - will refer for removal - pt is to notify clinic with any changes, questions, or concerns. . Muscle spasms - Will check [...] napping worsens night time insomnia. . Right heel pain - will send [...] worsening or does not improve. BELSOMRA . Dtztjej-ltzrsnoepa-pdfepdnt with increase in cymbalta-no changes Insomnia-RX for belsomra provided and instructed on use Obesity-patient down 15#-no changes-continue diet/exercise-follow up in 2 months . Right ankle/heel pain - the patient [...] 1 mg at night for anxiety . Ptnraei-qcpxndaqmn-vifzgqxq-increase cymbalta to 60mg daily. Increase xanax as [...] has been appropriately prescribed for this patient. Breathing treatments 3 times a day x [...]
--- OUTSIDE RECORDS SUMMARY | 2018-10-14 12:56 | XMS REPORT | CCD ---
Author Author [facility] Address [address] [place] [address] Phone Care Team Providers Care Licensed Loan Officer Name Role Phone PP Unavailable CCM Unavailable Summary Purpose Interface Exchange Insurance Providers Payer name Policy type / Coverage type Covered constitution party ID Effective Begin Date Effective End Date [facility] [id number] 2015 Unknown Family history Brother Diagnosis Age [...] Description Effective Dates Tobacco history SNOMED CT: 7919632 Quit less than 5 years ago 04/02/2015 Alcohol history Unknown occasionally drinks alcohol 04/02/2015 Marital status Unknown Manuel Vitale 12/02/2014 Number of children Unknown 3 12/02/2014 Allergies, Adverse Reactions, Alerts Allergies, Adverse Reactions, Alerts data not found Past Medical History Illness Codes Condition Status Onset Date Resolved Date Hypertension Unknown Active 09/28/2016 Unknown Essential (primary) hypertension ICD-9: 401.9 ICD-10: I10 Active 08/29/2015 Unknown Generalized anxiety disorder ICD-9: 300.02 ICD-10: F41.1 Active 08/24/2016 Unknown Other insomnia ICD-9: 327.09 ICD-10: G47.09 Active 05/18/2016 Unknown Other obesity due to excess calories ICD-9: 278.00 ICD-10: E66.09 Active 01/12/2016 Unknown Major depressive disorder, recurrent, mild ICD-9: 296.31 ICD-10: F33.0 Active 08/24/2016 Unknown Low back pain ICD-9: 724.2 ICD-10: M54.5 Active 07/13/2016 Unknown Major depressive disorder, recurrent, moderate ICD-9: 296.32 ICD-10: F33.1 Active 05/18/2016 Unknown Generalized anxiety disorder ICD-9: 308.0 ICD-10: F41.1 Active 05/18/2016 Unknown Other muscle spasm ICD- 9: 728.85 ICD-10: M62.838 Active 05/18/2016 Unknown Streptococcal pharyngitis ICD-9: 034.0 ICD-10: J02.0 Active 02/27/2016 Unknown Major depressive disorder, recurrent, unspecified ICD-9: 296.30 ICD-10: F33.9 Active 09/26/2015 Unknown Chronic pain syndrome ICD- 9: 338.4 ICD-10: G89.4 Active 08/29/2015 Unknown Excessive and frequent menstruation with regular cycle ICD-9: 626.2 ICD-10: N92.0 Active 08/29/2015 Unknown Pain in right knee ICD- 9: 719.46 ICD-10: M25.561 Active 08/29/2015 Unknown Palpitations ICD-9: 785.1 ICD-10: R00.2 Active 08/15/2015 Unknown Acute maxillary sinusitis, unspecified ICD-9: 461.0 ICD-10: J01.00 Active 07/14/2015 Unknown Osteoarthritis, unspecified site ICD-9: 715.90 ICD-10: M19.9 Active 12/01/2014 07/15/2015 Primary generalized (osteo)arthritis ICD-9: 715.09 ICD-10: M15.0 Active 07/14/2015 Unknown Restless legs syndrome ICD-9: 333.94 ICD-10: G25.81 Active 06/15/2015 Unknown Varicose veins of bilateral lower extremities with pain ICD-9: 454.8 ICD-10: I83.813 Active 04/01/2015 Unknown Osteoarthritis Unknown Active 12/02/2014 Unknown ABNORMAL WEIGHT GAIN ICD- 9: 783.1 Active 12/01/2014 Unknown Osteoarthritis ICD-9: 715.90 Active 12/01/2014 Unknown Problems Condition Codes Effective Dates Condition Status Hypertension Unknown 09/28/2016 Active Essential (primary) hypertension ICD-9: 401.9 ICD-10: I10 08/29/2015 Active Generalized anxiety disorder ICD-9: 300.02 ICD-10: F41.1 08/24/2016 Active Other insomnia ICD-9: 327.09 ICD-10: G47.09 05/18/2016 Active Other obesity due to excess calories ICD-9: 278.00 ICD-10: E66.09 01/12/2016 Active Major depressive disorder, recurrent, mild ICD-9: 296.31 ICD-10: F33.0 08/24/2016 Active Low back pain ICD-9: 724.2 ICD-10: M54.5 07/13/2016 Active Major depressive disorder, recurrent, moderate ICD-9: 296.32 ICD-10: F33.1 05/18/2016 Active Generalized anxiety disorder ICD-9: 308.0 ICD-10: F41.1 05/18/2016 Active Other muscle spasm ICD- 9: 728.85 ICD-10: M62.838 05/18/2016 Active Streptococcal pharyngitis ICD-9: 034.0 ICD-10: J02.0 02/27/2016 Active Major depressive disorder, recurrent, unspecified ICD-9: 296.30 ICD-10: F33.9 09/26/2015 Active Chronic pain syndrome ICD- 9: 338.4 ICD-10: G89.4 08/29/2015 Active Excessive and frequent menstruation with regular cycle ICD-9: 626.2 ICD-10: N92.0 08/29/2015 Active Pain in right knee ICD- 9: 719.46 ICD-10: M25.561 08/29/2015 Active Palpitations ICD-9: 785.1 ICD-10: R00.2 08/15/2015 Active Acute maxillary sinusitis, unspecified ICD-9: 461.0 ICD-10: J01.00 07/14/2015 Active Osteoarthritis, unspecified site ICD-9: 715.90 ICD-10: M19.9 12/01/2014 Active Primary generalized (osteo)arthritis ICD-9: 715.09 ICD-10: M15.0 07/14/2015 Active Restless legs syndrome ICD-9: 333.94 ICD-10: G25.81 06/15/2015 Active Varicose veins of bilateral lower extremities with pain ICD-9: 454.8 ICD-10: I83.813 04/01/2015 Active Osteoarthritis Unknown 12/02/2014 Active ABNORMAL WEIGHT GAIN ICD- 9: 783.1 12/01/2014 Active Osteoarthritis ICD-9: 715.90 12/01/2014 Active Medications Medication Codes Instructions Start Date Stop Date Status Fill Instructions trazodone 50 mg tablet RxNorm: 513965 1/2 to 1 Tablet(s) PO QHS 10/13/2016 12/11/2016 Active trazodone 50 mg tablet RxNorm: 658649 1/2 to 1 Tablet(s) PO QHS 10/13/2016 10/12/2016 Inactive Belsomra 10 mg tablet RxNorm: 7405156 1 Tablet(s) PO QHS 09/28/2016 No Stop Date Active may increase to 20mg if 10mg not effective Cymbalta 60 mg capsule,delayed release RxNorm: 826747 1 Capsule(s) PO daily 08/24/2016 03/21/2017 Active Xanax 1 mg tablet RxNorm: 449375 1 Tablet(s) PO BID PRN as needed anxiety 08/24/2016 No Stop Date Active Victoza 2-Marek 0.6 mg/0.1 mL (18 mg/3 mL) subcutaneous pen injector RxNorm: 185873 1.8 Milligram(s) SQ 08/24/2016 No Stop Date Active Victoza 2-Marek 0.6 mg/0.1 mL (18 mg/3 mL) subcutaneous pen injector RxNorm: 487518 Milligram(s) SQ 08/24/2016 08/23/2016 Inactive Vitamin D2 50,000 unit capsule RxNorm: 857065 1 Capsule(s) PO QW 07/13/2016 10/10/2016 Inactive Cymbalta 30 mg capsule,delayed release RxNorm: 638632 1 Capsule(s) PO daily 07/13/2016 08/23/2016 Inactive Belviq XR 20 mg tablet,extended release RxNorm: 7524068 1 Tablet(s) PO daily 05/30/2016 05/29/2016 Inactive prednisone 20 mg tablet RxNorm: 383209 2 Tablet(s) PO daily 05/30/2016 06/03/2016 Inactive prednisone 20 mg tablet RxNorm: 422373 2 Tablet(s) PO daily 05/30/2016 05/29/2016 Inactive Belviq XR 20 mg tablet,extended release RxNorm: 6409218 1 Tablet(s) PO daily 05/30/2016 06/28/2016 Inactive cyclobenzaprine 5 mg tablet RxNorm: 645075 1-2 Tablet(s) PO TID as needed 05/19/2016 05/23/2016 Inactive metoprolol succinate ER 25 mg tablet,extended release 24 hr RxNorm: 216127 1 Tablet(s) PO QPM 04/10/2016 04/13/2016 Inactive metoprolol succinate ER 25 mg tablet,extended release 24 hr RxNorm: 526613 1 Tablet(s) PO QPM 04/10/2016 04/09/2016 Inactive escitalopram 10 mg tablet RxNorm: 413847 1 Tablet(s) PO daily 03/16/2016 07/12/2016 Inactive estradiol 1 mg tablet RxNorm: 578244 1 Tablet(s) PO every other day 03/16/2016 05/15/2016 Inactive Kenalog 40 mg/mL suspension for injection RxNorm: 7031845 Milliliter(s) Inj 02/28/2016 02/28/2016 Inactive Zithromax Z-Marek 250 mg tablet RxNorm: 279536 1 Tablet(s) PO UD 02/28/2016 03/03/2016 Inactive zpack Lexapro 10 mg tablet RxNorm: 932827 1 Tablet(s) PO daily 09/27/2015 02/27/2016 Inactive Lexapro 10 mg tablet RxNorm: 715544 1 Tablet(s) PO daily 08/30/2015 09/26/2015 Inactive Vimovo 500 mg-20 mg tablet,immediate and delay release RxNorm: 465428 1 Tablet(s) PO BID as needed for pain 08/30/2015 09/26/2015 Inactive azithromycin 250 mg tablet RxNorm: 434043 1 Tablet(s) PO UD 2 pills on day #1, then one pill daily x 4 days 07/15/2015 01/12/2016 Inactive hydrocodone 10 mg-acetaminophen 325 mg tablet RxNorm: 692238 1 Tablet(s) PO QID 06/16/2015 01/12/2016 Inactive pramipexole 0.5 mg tablet RxNorm: 026523 1 Tablet(s) PO QPM 06/16/2015 07/14/2015 Inactive Celebrex 200 mg capsule RxNorm: 060761 1 Capsule(s) PO daily 05/03/2015 05/02/2015 Inactive Celebrex 200 mg capsule RxNorm: 160738 1 Capsule(s) PO daily 05/03/2015 01/12/2016 Inactive hydrocodone 7.5 mg-acetaminophen 325 mg tablet RxNorm: 934260 1 Tablet(s) PO Q6 PRN 05/03/2015 06/15/2015 Inactive Mobic 15 mg tablet RxNorm: 704028 1 Tablet(s) PO daily 04/02/2015 05/02/2015 Inactive hydrocodone 7.5 mg-acetaminophen 325 mg tablet RxNorm: 655121 1 Tablet(s) PO Q6 PRN 04/02/2015 05/02/2015 Inactive hydrocodone 5 mg-acetaminophen 325 mg tablet RxNorm: 071371 1 Tablet(s) PO Q6 as needed 12/11/2014 04/01/2015 Inactive Pennsaid 1.5 % topical drops RxNorm: 237428 40 Drop(s) TOP QID as needed 12/07/2014 02/04/2015 Inactive Apply 40 drops to each knee joint 4 times per day as needed for osteoarthritis pain estradiol 1 mg tablet RxNorm: 098649 1 Tablet(s) PO QHS No Start Date 03/15/2016 Inactive Xanax 0.5 mg tablet RxNorm: 903773 1 Tablet(s) PO Q6 as needed anxiety No Start Date 08/23/2016 Inactive Tylenol Extra Strength 500 mg tablet RxNorm: 400487 3 Tablet(s) PO BID after breakfast and after lunch No Start Date 01/12/2016 Inactive hydrocodone 5 mg-acetaminophen 325 mg tablet RxNorm: 052257 1 Tablet(s) PO Q6 as needed No Start Date 12/10/2014 Inactive ibuprofen 200 mg capsule RxNorm: 883409 4 Capsule(s) PO QID as needed No Start Date 04/01/2015 Inactive Medication Administered Medication Codes Instructions Start Date Status Kenalog 40 mg/mL suspension for injection RxNorm: 5611914 Milliliter 02/28/2016 No longer Active Immunizations No Immunization data Assessments Condition Codes Effective Dates Generalized anxiety disorder ICD-10: F41.1 ICD-9: 300.02 09/28/2016 Other obesity due to excess calories ICD-10: E66.09 ICD-9: 278.00 09/28/2016 Other insomnia ICD-10: G47.09 ICD-9: 327.09 09/28/2016 Major depressive disorder, recurrent, mild ICD-10: F33.0 ICD-9: 296.31 08/24/2016 Low back pain ICD-10: M54.5 ICD-9: 724.2 07/13/2016 Major depressive disorder, recurrent, moderate ICD-10: F33.1 ICD-9: 296.32 07/13/2016 Generalized anxiety disorder ICD-10: F41.1 ICD-9: 308.0 05/19/2016 Other muscle spasm ICD-10: M62.838 ICD-9: 728.85 05/19/2016 Streptococcal pharyngitis ICD-10: J02.0 ICD-9: 034.0 02/28/2016 Major depressive disorder, recurrent, unspecified ICD-10: F33.9 ICD-9: 296.30 09/27/2015 Essential (primary) hypertension ICD-10: I10 ICD-9: 401.9 08/30/2015 Pain in right knee ICD-10: M25.561 ICD-9: 719.46 08/30/2015 Excessive and frequent menstruation with regular cycle ICD-10: N92.0 ICD-9: 626.2 08/30/2015 Chronic pain syndrome ICD-10: G89.4 ICD-9: 338.4 08/30/2015 Palpitations ICD-10: R00.2 ICD-9: 785.1 08/16/2015 Primary generalized (osteo)arthritis ICD-10: M15.0 ICD-9: 715.09 07/15/2015 Acute maxillary sinusitis, unspecified ICD-10: J01.00 ICD-9: 461.0 07/15/2015 Restless legs syndrome ICD-10: G25.81 ICD-9: 333.94 06/16/2015 Varicose veins of bilateral lower extremities with pain ICD-10: I83.813 ICD-9: 454.8 04/02/2015 Superficial thrombophlebitis ICD-9: 451.9 12/02/2014 Osteoarthritis ICD-9: 715.90 12/02/2014 ABNORMAL WEIGHT GAIN ICD-9: 783.1 12/02/2014 Reason For Visit Reason For Visit Effective Dates Notes insomnia 09/28/2016 depression 08/24/2016 depression 07/13/2016 myalgias 05/19/2016 depression 03/16/2016 sore throat 02/28/2016 depression 01/13/2016 medication follow up 09/27/2015 palpitations 08/30/2015 palpitations 08/16/2015 knee pain 07/15/2015 knee pain 06/16/2015 knee pain 04/02/2015 knee pain 12/02/2014 Results Observation Observation Code Item Item Code Result Date Estrogens Total 016556 ESTROGENS, TOTAL 54 pg/mL 05/24/2016 Magnesium Ord90 Mag 1.8 mg/dL 05/19/2016 Comp Metabolic Pyr826 NA 136 mEq/L 05/19/2016 Comp Metabolic Jgz837 K 4.3 mEq/L 05/19/2016 Comp Metabolic Enb755 CL 100 mEq/L 05/19/2016 Comp Metabolic Vgc464 CO2 28.0 mEq/L 05/19/2016 Comp Metabolic Lsd415 ANION GAP 12 05/19/2016 Comp Metabolic Agg576 GLUCOSE 138 mg/dL 05/19/2016 Comp Metabolic Uka237 Creat 0.7 mg/dL 05/19/2016 Comp Metabolic Hlg484 eGFR 89 ml/min/1.73m2 05/19/2016 Comp Metabolic Anu691 BUN 15 mg/dL 05/19/2016 Comp Metabolic Kyq651 B/C Ratio 20.5 Ratio 05/19/2016 Comp Metabolic Hzm551 CALCIUM 9.7 mg/dL 05/19/2016 Comp Metabolic Zln402 ALK PHOS 106 U/L 05/19/2016 Comp Metabolic Has131 AST(SGOT) 21 U/L 05/19/2016 Comp Metabolic Vxf063 ALT(SGPT) 24 U/L 05/19/2016 Comp Metabolic Lxw618 BILI T 0.4 mg/dL 05/19/2016 Comp Metabolic Tcu622 ALBUMIN 4.1 g/dL 05/19/2016 Comp Metabolic Qkl953 TPRO 7.1 g/dL 05/19/2016 Comp Metabolic Ags385 GLOB 3.0 g/dL 05/19/2016 Comp Metabolic Ngy311 A/G Ratio 1.4 Ratio 05/19/2016 Comp Metabolic Uso587 Osmo 275 mOsmo 05/19/2016 Cbc With Differential [...] 86.5 fl 05/19/2016 Cbc With Differential Ord2 Independence% 6.5 % 05/19/2016 Cbc With Differential Ord2 [...] 2.33 K/ul 05/19/2016 Cbc With Differential Ord2 Independence ABS# 0.6 K/ul 05/19/2016 Cbc With Differential Ord2 Eos ABS# 0.1 K/ul 05/19/2016 Cbc With Differential Ord2 Baso ABS# 0.0 K/ul 05/19/2016 Progesterone Prog 0.03 ng/mL 05/19/2016 Tsh Ord6 hTSH II 1.56 uIU/mL 05/19/2016 C RAP A SC 4995077 Strep A Negative 02/28/2016 Comp Metabolic Seb263 NA 132 mEq/L 08/16/2015 Comp Metabolic Kyw921 K 3.6 mEq/L 08/16/2015 Comp Metabolic Dmt269 CL 99 mEq/L 08/16/2015 Comp Metabolic Com096 CO2 23.0 mEq/L 08/16/2015 Comp Metabolic Vmo014 ANION GAP 14 08/16/2015 Comp Metabolic Gxl639 GLUCOSE 101 mg/dL 08/16/2015 Comp Metabolic Thu910 Creat 0.7 mg/dL 08/16/2015 Comp Metabolic Mcq398 eGFR 100 ml/min/1.73m2 08/16/2015 Comp Metabolic Ldr134 BUN 10 mg/dL 08/16/2015 Comp Metabolic Biv111 B/C Ratio 15.2 Ratio 08/16/2015 Comp Metabolic Vwp305 CALCIUM 9.3 mg/dL 08/16/2015 Comp Metabolic Gnm331 ALK PHOS 100 U/L 08/16/2015 Comp Metabolic Gcr707 AST(SGOT) 14 U/L 08/16/2015 Comp Metabolic Xrk381 ALT(SGPT) 11 U/L 08/16/2015 Comp Metabolic Dni479 BILI T 0.3 mg/dL 08/16/2015 Comp Metabolic Fht251 ALBUMIN 3.9 g/dL 08/16/2015 Comp Metabolic Hdk431 TPRO 7.1 g/dL 08/16/2015 Comp Metabolic Qxm700 GLOB 3.2 g/dL 08/16/2015 Comp Metabolic Wbm229 A/G Ratio 1.2 Ratio 08/16/2015 Comp Metabolic Zkk913 Osmo 264 mOsmo 08/16/2015 Cbc With Differential [...] 26.2 pg 08/16/2015 Cbc With Differential Ord2 Independence% 7.1 % 08/16/2015 Cbc With Differential Ord2 [...] 2.32 K/ul 08/16/2015 Cbc With Differential Ord2 Independence ABS# 0.6 K/ul 08/16/2015 Cbc With Differential Ord2 Eos ABS# 0.1 K/ul 08/16/2015 Cbc With Differential Ord2 Baso ABS# 0.0 K/ul 08/16/2015 Cbc With Differential Ord2 New Analyzer Notice Please note new ref ranges starting 05-26-2015 due to implemntation of new five part differential hematolgy analyzer. 08/16/2015 Tsh Ord6 hTSH II 1.65 uIU/mL 08/16/2015 Lipid Ord30 CHOL 209 mg/dL 12/03/2014 Lipid Ord30 HDL 42.0 mg/dl 12/03/2014 Lipid Ord30 TRIG 219 mg/dL 12/03/2014 Lipid Ord30 LDL 123 mg/dL 12/03/2014 Lipid Ord30 C/HDL 5.0 Ratio 12/03/2014 Comp Metabolic Yst866 NA 132 mEq/L 12/03/2014 Comp Metabolic Brb493 K 4.0 mEq/L 12/03/2014 Comp Metabolic Aje358 CL 101 mEq/L 12/03/2014 Comp Metabolic Cje307 CO2 22.0 mEq/L 12/03/2014 Comp Metabolic Ega760 ANION GAP 13 12/03/2014 Comp Metabolic Ssm694 GLUCOSE 123 mg/dL 12/03/2014 Comp Metabolic Qax509 Creat 0.7 mg/dL 12/03/2014 Comp Metabolic Xlg251 eGFR 97 ml/min/1.73m2 12/03/2014 Comp Metabolic Xfy485 BUN 10 mg/dL 12/03/2014 Comp Metabolic Css076 B/C Ratio 14.7 Ratio 12/03/2014 Comp Metabolic Vog308 CALCIUM 9.2 mg/dL 12/03/2014 Comp Metabolic Mkm942 ALK PHOS 88 U/L 12/03/2014 Comp Metabolic Dvh038 AST(SGOT) 18 U/L 12/03/2014 Comp Metabolic Jmp833 ALT(SGPT) 17 U/L 12/03/2014 Comp Metabolic Xni496 BILI T 0.5 mg/dL 12/03/2014 Comp Metabolic Wrm874 ALBUMIN 3.9 g/dL 12/03/2014 Comp Metabolic Krz895 TPRO 6.8 g/dL 12/03/2014 Comp Metabolic Phh006 GLOB 2.9 g/dL 12/03/2014 Comp Metabolic Mnp293 A/G Ratio 1.3 Ratio 12/03/2014 Comp Metabolic Cre178 Osmo 265 mOsmo 12/03/2014 Tsh Ord6 hTSH II 1.13 uIU/mL 12/03/2014 D-Dimer D-DIMER 168 NG/ML 12/03/2014 D-Dimer [id number] COMMENT 12/03/2014 Cbc With Differential Ord2 WBC [...] Result Effective Dates Constitutional No recent illness 09/28/2016 Constitutional No [...] General 1995 Eyes conjunctiva/eyelids Overall: conjunctiva clear 07/13/2016 None [...] age 0712/02/2014 None Procedures Procedure Codes Date TRIAMCINOLONE ACET INJ NOS CPT-4: [id number] 02/28/2016 Vital Signs Date Vital 09/28/2016 Blood Pressure 1: 122/72 Code: 8480-6 BMI: 39.1 Code: 51371-4 Heart Rate 1: 88 bpm Height: 5'6" SpO2: 94% Weight: 242 lbs 08/24/2016 Blood Pressure 1: 130/87 Code: 8480-6 BMI: 41.5 Code: 76736-1 Heart Rate 1: 95 bpm Height: 5'6" Respiratory Rate: 16 bpm SpO2: 98% Temperature: 36.9 (C) / 98.5 (F) Weight: 257 lbs 07/13/2016 Blood Pressure 1: 132/84 Code: 8480-6 BMI: 42.0 Code: 01345-4 Heart Rate 1: 73 bpm Height: 5'6" SpO2: 97% Weight: 260 lbs 05/19/2016 Blood Pressure 1: 138/76 Code: 8480-6 BMI: 40.8 Code: 43088-1 Heart Rate 1: 80 bpm Height: 5'6" SpO2: 98% Weight: 253 lbs 03/16/2016 Blood Pressure 1: 122/70 Code: 8480-6 BMI: 40.4 Code: 83269-9 Heart Rate 1: 72 bpm Height: 5'6" SpO2: 98% Weight: 250 lbs 02/28/2016 Blood Pressure 1: 136/86 Code: 8480-6 BMI: 40.2 Code: 75957-1 Heart Rate 1: 87 bpm Height: 5'6" SpO2: 96% Temperature: 36.3 (C) / 97.3 (F) Weight: 249 lbs 01/13/2016 Blood Pressure 1: 120/76 Code: 8480-6 BMI: 40.4 Code: 50370-6 Heart Rate 1: 68 bpm Height: 5'6" SpO2: 97% Weight: 250 lbs 09/27/2015 Blood Pressure 1: 112/70 Code: 8480-6 BMI: 38.4 Code: 49295-1 Heart Rate 1: 76 bpm Height: 5'6" SpO2: 98% Weight: 238 lbs 08/30/2015 Blood Pressure 1: 144/82 Code: 8480-6 BMI: 39.5 Code: 50062-7 Heart Rate 1: 82 bpm Height: 5'6" SpO2: 97% Weight: 245 lbs 08/16/2015 Blood Pressure 1: 140/72 Code: 8480-6 BMI: 38.9 Code: 78027-2 Heart Rate 1: 72 bpm Height: 5'6" SpO2: 97% Weight: 241 lbs 07/15/2015 Blood Pressure 1: 128/80 Code: 8480-6 BMI: 39.3 Code: 16338-2 Heart Rate 1: 86 bpm Height: 5'6" SpO2: 98% Weight: 243 lbs 8 oz 06/16/2015 Blood Pressure 1: 146/86 Code: 8480-6 BMI: 39.6 Code: 94170-9 Heart Rate 1: 76 bpm Height: 5'6" SpO2: 97% Weight: 245 lbs 8 oz 04/02/2015 Blood Pressure 1: 132/86 Code: 8480-6 BMI: 40.7 Code: 28281-1 Heart Rate 1: 94 bpm Height: 5'6" SpO2: 98% Weight: 252 lbs 12/02/2014 Blood Pressure 1: 122/90 Code: 8480-6 BMI: 41.6 Code: 33864-7 Heart Rate 1: 77 bpm Height: 5'6" SpO2: 95% Weight: 258 lbs Functional Status No Functional Status data History of Present Illness Symptom Name Status Result Effective Date Notes insomnia Quality disrupted sleep 09/28/2016 None insomnia [...] data Encounters Encounter Performer Location Codes Date ([id number]) 54306 EST. PATIENT, LEVEL III Diagnosis: Other obesity due to excess calories[ICD10: E66.09] Diagnosis: Other insomnia[ICD10: G47.09] Diagnosis: Generalized anxiety disorder[ICD10: F41.1] Claudette Trejo MD, [facility] CPT-4: 92260 09/28/2016 ([id number]) 07907 EST. PATIENT, LEVEL IV Diagnosis: Generalized anxiety disorder[ICD10: F41.1] Diagnosis: Major depressive disorder, recurrent, mild[ICD10: F33.0] Diagnosis: Other obesity due to excess calories[ICD10: E66.09] Diagnosis: Other insomnia[ICD10: G47.09] Claudette Trejo MD, [facility] CPT-4: 55721 08/24/2016 ([id number]) 92546 EST. PATIENT, LEVEL III Diagnosis: Other obesity due to excess calories[ICD10: E66.09] Diagnosis: Major depressive disorder, recurrent, moderate[ICD10: F33.1] Diagnosis: Low back pain[ICD10: M54.5] Heidy Trejo MD, [facility] CPT-4: 36752 07/13/2016 17322 EST. PATIENT, LEVEL IV Diagnosis: Other muscle spasm[ICD10: M62.838] Diagnosis: Generalized anxiety disorder[ICD10: F41.1] Diagnosis: Major depressive disorder, recurrent, moderate[ICD10: F33.1] Diagnosis: Other insomnia[ICD10: G47.09] Petra Trejo MD, [facility] CPT-4: 77472 05/19/2016 ([id number]) 30452 EST. PATIENT, LEVEL III Diagnosis: Generalized anxiety disorder[ICD10: F41.1] Diagnosis: Major depressive disorder, recurrent, moderate[ICD10: F33.1] Heidy Trejo MD, [facility] CPT-4: 28359 03/16/2016 ([id number]) 97381 EST. PATIENT, LEVEL III Diagnosis: Streptococcal pharyngitis[ICD10: J02.0] Claudette Trejo MD, [facility] CPT-4: 93873 02/28/2016 ([id number]) 72899 EST. PATIENT, LEVEL III Diagnosis: Generalized anxiety disorder[ICD10: F41.1] Diagnosis: Other obesity due to excess calories[ICD10: E66.09] Heidy Trejo MD, [facility] CPT-4: 28323 01/13/2016 ([id number]) 30199 EST. PATIENT, LEVEL III Diagnosis: Generalized anxiety disorder[ICD10: F41.1] Diagnosis: Major depressive disorder, recurrent, unspecified[ICD10: F33.9] Heidy Trejo MD, [facility] CPT-4: 69275 09/27/2015 29749 EST. PATIENT, LEVEL IV Diagnosis: Chronic pain syndrome[ICD10: G89.4] Diagnosis: Other obesity due to excess calories[ICD10: E66.09] Diagnosis: Essential (primary) hypertension[ICD10: I10] Diagnosis: Generalized anxiety disorder[ICD10: F41.1] Diagnosis: Excessive and frequent menstruation with regular cycle[ICD10: N92.0] Diagnosis: Pain in right knee[ICD10: M25.561] Petra Trejo MD, [facility] CPT-4: 56605 08/30/2015 87904 EST. PATIENT, LEVEL IV Diagnosis: Palpitations[ICD10: R00.2] Diagnosis: Other obesity due to excess calories[ICD10: E66.09] Petra Trejo MD, [facility] CPT-4: 00871 08/16/2015 ([id number]) 50460 EST. PATIENT, LEVEL IV Diagnosis: Pain in right knee[ICD10: M25.561] Diagnosis: Primary generalized (osteo)arthritis[ICD10: M15.0] Diagnosis: Acute maxillary sinusitis, unspecified[ICD10: J01.00] Heidy Trejo MD, [facility] CPT-4: 84444 07/15/2015 ([id number]) 54245 EST. PATIENT, LEVEL IV Diagnosis: Primary generalized (osteo)arthritis[ICD10: M15.0] Diagnosis: Restless legs syndrome[ICD10: G25.81] Diagnosis: Chronic pain syndrome[ICD10: G89.4] Heidy Trejo MD, [facility] CPT- 4: 18390 06/16/2015 ([id number]) 99808 EST. PATIENT, LEVEL III Diagnosis: Primary generalized (osteo)arthritis[ICD10: M15.0] Diagnosis: Varicose veins of bilateral lower extremities with pain[ICD10: I83.813] Claudette Trejo MD, [facility] CPT-4: 67197 04/02/2015 ([id number]) OFFICE VISIT, NEW - LEVEL 3 Diagnosis: Osteoarthritis[ICD9: 715.90] Diagnosis: ABNORMAL WEIGHT GAIN[ICD9: 783.1] Diagnosis: Superficial thrombophlebitis[ICD9: 451.9] [facility] CPT-4: 69863 12/02/2014 Plan of Care Planned Activity Notes Codes Status Date Visit Plan: Uzbkfdu-hrntpfsvzm-fbsvfvoy with increase in cymbalta-no changes Insomnia- RX for belsomra provided and instructed on useObesity-patient down 15#-no changes-continue diet/exercise-follow up in 2 months 09/28/2016 Appointment: Claudette Savage WPtel: [address] [place], [place] [phone] (15 min) Moderate 09/28/2016 Patient Education: Patient Medication Summary Completed 09/28/2016 Patient Education: Obesity Completed 09/28/2016 Care Plan: BMI Above normal followup SELF-MGMT EDUC & TRAIN 1 PT Pending 09/28/2016 Visit Plan: Txxutqr-fjdcjhpjer-ntvufzcn-increase cymbalta to 60mg daily. Increase xanax as directed-call if symptoms uncontrolled. Pt is aware of the risks and benefits of treatment with the above medications and verbalized understanding of plan. Obesity - chronic issue with this patient. The pt has been counseled about diet changes, calorie restriction, and need to exercise. Pt will RTC in one month for weight check.Insomnia-increase xanax as directed for insomnia/anxiety 08/24/2016 Appointment: Claudette Savage WPtel: [address] [place], [place] [phone] (15 min) Moderate 08/24/2016 Patient Education: Patient [...] Trejo WPtel: [phone] [id number] (15 min) Moderate 07/13/2016 Patient Education: Patient [...] in situational exposure. No change in current medications.Insomnia - Pt has been advised to increase the light in the house during the day, and start dimming the lights during the evening hours.Pt has been advised to cut out caffeine after 5pm.Daytime napping worsens night time insomnia. 05/19/2016 [facility]ment[facility] [phone] [id number] (30 min) Complex 05/19/2016 Patient Education: [...] the risks associated with NOT treating the depression.I believe the pt will benefit from medical intervention and an antidepressant has been appropriately prescribed for this patient. 03/16/2016 App[facility]ment[facility] [phone] [id number] (15 min) Moderate 03/16/2016 Patient Education: [...] swab. 02/28/2016 Appointment: Claudette Savage WPtel: [phone] [phone] (10 min) Simple 02/28/2016 Patient Education: Patient Medication Summary Completed 02/28/2016 Visit Plan: Depression and -Obesity - chronic issue with this patient. The pt has been counseled about diet changes, calorie restriction, and need to exercise. Pt will RTC in one month for weight check.contrave websitecontrave 1 pill nightly x 1 week, then one pill twice daily x 1 week, then if needed can increase up to 2 pills twice daily.stop lexapro 01/13/2016 [facility] [phone] [id number] (15 min) Moderate 01/13/2016 Patient Education: [...] 09/27/2015 Care Plan: Referral Order SNOMED-CT : [id number] Pending 08/31/2015 Visit Plan: Anxiety - the patient has uncontrolled anxiety and will benefit from an SSRI on a daily basis to attempt control of the symptoms of anxiety (tachycardia, overwhelming sensations, stress, insomnia, etc). I also believe that the patient will benefit from very low dose of prn benzodiazepine. Pt is aware of the risks and benefits of treatment with the above medications.Chronic Pain Syndrome - pt has chronic pain [...] to exercise. Pt will RTC for weight check.Dysmenorrhea - pt states that it has been [...] will consider an event monitor and further testing.BMI 38 - The pt has been counseled [...] to take antiinflammatory as directed for pain control.Use tylenol for break through pain symptoms.Sinusitis - Pt has acute infection - pain in face, maxillary region, Pt informed to use decongestant, RX given to patient, sinus rinses also recommended. Call if symptoms do not show improvement. 07/15/2015 Visit Plan: Arthritis- occasionally uncontrolled symptoms- recommend pt to take antiinflammatory as directed for pain control.Use tylenol for break through pain symptoms.Sinusitis - Pt has acute infection - pain in face, maxillary region, Pt informed to use decongestant, RX given to patient, sinus rinses also recommended. Call if symptoms do not show improvement. 07/15/2015 Visit Plan: Arthritis- occasionally uncontrolled symptoms- recommend pt to take antiinflammatory as directed for pain control.Use tylenol for break through pain symptoms. 07/15/2015 App[facility]ment: [facility]el[facility] [phone] [facility] [place] (15 min) Moderate 07/15/2015 Patient Education: Patient Medication Summary Completed 07/15/2015 Visit Plan: Chronic Pain Syndrome - pt has chronic pain - has been maintained on current medications, has not sought out other medications, only uses PRN pain medications as directed, and understands the consequences of over-medication.Arthritis- occasionally uncontrolled symptoms- recommend pt to take antiinflammatory as directed for pain control.Use tylenol for break through pain symptoms.Restless Leg Syndrome - uncontrolled symptoms - I [...] clinic 04/02/2015 [facility] [phone] [id number] [place] (15 min) Moderate 04/02/2015 Patient [...] Completed 12/02/2014 Referral: Belle Hoffman WPtel: [phone] [facility] they will call and set the appt with her Initiated Referral: Belle Hoffman WPtel: [phone] [facility] [place] Referral Initiated Instructions Comment We will [...] 1 mg at night for anxiety . Ekibsfq-qtocjygowt-xsgdnrev-increase cymbalta to 60mg daily. Increase xanax as [...] Varicose veins-patient getting treatment at vein clinic [facility] . Qbehegg-jcgrszgwnz-xthhnxbf with increase in cymbalta-no changes Insomnia-RX for [...]
[2018-10-14] MEDS ORDERED: HURRICAINE EXT TUBE (BENZOCAINE) ONE (12:58)
--- OUTSIDE RECORDS SUMMARY | 2018-10-14 13:01 | XMS REPORT | CCD ---
Author Author [place] Organization [facility] Address [address] [place] [address] Phone Care Team Providers Care Teller Head Name Role Phone PP Unavailable CCM Unavailable Summary Purpose Interface Exchange Insurance Providers Payer name Policy type / Coverage type Covered libertarian ID Effective Begin Date Effective End Date [facility] Commercial Insurance [id number] Unknown Family history Brother Diagnosis Age At [...] Description Effective Dates Tobacco history SNOMED CT: 2645725 Quit less than 5 years ago 04/02/2015 Alcohol history Unknown occasionally drinks alcohol 04/02/2015 Marital status Unknown Manuel Vitale 12/02/2014 Number of children Unknown 3 12/02/2014 Allergies, Adverse Reactions, Alerts Substance Reaction Codes Entered Date Inactivated Date Status * NO KNOWN FOOD ALLERGIES Unknown 12/02/2014 No Inactive Date Active Penicillin Unknown 12/02/2014 No Inactive Date Active tramadol RxNorm: 01303 12/02/2014 No Inactive Date Active Past Medical [...] Start Date Stop Date Status Fill Instructions Saxenda 3 mg/0.5 mL (18 mg/3 mL) subcutaneous pen injector RxNorm: 8702425 1.8 Milligram(s) SQ daily 08/28/2018 12/25/2018 Active disp qty sufficient- [place] approved Saxenda 3 mg/0.5 mL (18 mg/3 mL) subcutaneous pen injector RxNorm: 1335769 1.8 Milligram(s) SQ daily 08/28/2018 08/27/2018 Inactive disp qty sufficient Saxenda 3 mg/0.5 mL (18 mg/3 mL) subcutaneous pen injector RxNorm: 7359078 1.8 Milliliter(s) SQ daily 08/27/2018 08/27/2018 Inactive disp qty sufficient Xanax 1 mg tablet RxNorm: 613406 1-2 Tablet(s) PO QHS as needed insomnia 08/26/2018 11/23/2018 Active metformin 500 mg tablet RxNorm: 368765 1 Tablet(s) PO BID 08/26/2018 12/23/2018 Active Keflex 500 mg capsule RxNorm: 561007 1 Capsule(s) PO TID 08/26/2018 09/01/2018 Active Protonix 40 mg tablet,delayed release RxNorm: 039695 1 TABLET(S) PO DAILY 08/12/2018 12/09/2018 Active metformin 500 mg tablet RxNorm: 257374 1 Tablet(s) PO daily 08/12/2018 08/25/2018 Inactive Lasix 20 mg tablet RxNorm: 524497 1 TABLET(S) PO DAILY NEEDED EDEMA 08/06/2018 10/04/2018 Active potassium chloride ER 10 mEq tablet,extended release RxNorm: 098353 1 TABLET(S) PO DAILY NEEDED TO TAKE WHEN YOU TAKE THE LASIX 08/06/2018 10/04/2018 Active Zorvolex 35 mg capsule RxNorm: 7205388 TAKE 1 CAPSULE BY MOUTH THREE (3) TIMES DAILY 08/02/2018 11/29/2018 Active prednisone 20 mg tablet RxNorm: 212468 Tablet(s) PO 07/17/2018 No Stop Date Active 20mg tonight then starting tomorrow: 60,60,40,40,20,20,10,10 Remeron 15 mg tablet RxNorm: 711581 1/2 Tablet(s) PO QHS 07/17/2018 2019 Active Tamiflu 75 mg capsule RxNorm: 601556 1 Capsule(s) PO BID 07/17/2018 07/21/2018 Inactive Kenalog 40 mg/mL suspension for injection RxNorm: 3146061 Milliliter(s) Inj 07/17/2018 07/17/2018 Inactive Lexapro 20 mg tablet RxNorm: 538021 1 TABLET(S) PO DAILY 07/15/2018 11/11/2018 Active potassium chloride ER 10 mEq tablet,extended release RxNorm: 808152 1 Tablet(s) PO daily as needed to take when you take the lasix 07/04/2018 08/02/2018 Inactive Lasix 20 mg tablet RxNorm: 544878 1 Tablet(s) PO daily as needed edema 07/04/2018 08/02/2018 Inactive Cymbalta 30 mg capsule,delayed release RxNorm: 664980 1 CAPSULE(S) PO DAILY TO BE TAKEN WITH 60MG TO=90MG 07/01/2018 07/14/2018 Inactive hydrochlorothiazide 25 mg tablet RxNorm: 684115 1 TABLET(S) PO DAILY 06/27/2018 09/24/2018 Active Remeron 15 mg tablet RxNorm: 196393 1/2 Tablet(s) PO QHS 06/20/2018 07/16/2018 Inactive Lasix 20 mg tablet RxNorm: 910299 1 Tablet(s) PO daily 06/19/2018 06/21/2018 Inactive potassium chloride ER 10 mEq tablet,extended release RxNorm: 874897 1 Tablet(s) PO daily 06/19/2018 07/03/2018 Inactive Lexapro 20 mg tablet RxNorm: 027320 1 Tablet(s) PO daily 06/19/2018 07/14/2018 Inactive gabapentin 300 mg capsule RxNorm: 477491 1 CAPSULE(S) PO TID 06/14/2018 08/12/2018 Inactive Ambien 10 mg tablet RxNorm: 487374 1 Tablet(s) PO QHS as needed insomnia 06/10/2018 09/07/2018 Active Cymbalta 30 mg capsule,delayed release RxNorm: 918993 1 Capsule(s) PO daily 06/03/2018 06/02/2018 Inactive Cymbalta 30 mg capsule,delayed release RxNorm: 409433 1 Capsule(s) PO daily to be taken with 60mg to=90mg 06/03/2018 06/30/2018 Inactive Protonix 40 mg tablet,delayed release RxNorm: 796562 1 TABLET(S) PO DAILY 05/20/2018 08/11/2018 Inactive gabapentin 300 mg capsule RxNorm: 338454 1 CAPSULE(S) PO TID 05/15/2018 06/13/2018 Inactive Protonix 40 mg tablet,delayed release RxNorm: 753295 1 Tablet(s) PO daily 04/24/2018 05/19/2018 Inactive Zorvolex 35 mg capsule RxNorm: 9417490 TAKE 1 CAPSULE BY MOUTH THREE (3) TIMES DAILY 04/22/2018 08/01/2018 Inactive hydrochlorothiazide 25 mg tablet RxNorm: 475148 1 TABLET(S) PO DAILY 04/08/2018 06/26/2018 Inactive Zorvolex 35 mg capsule RxNorm: 5500035 TAKE 1 CAPSULE BY MOUTH THREE (3) TIMES DAILY 03/27/2018 04/21/2018 Inactive gabapentin 300 mg capsule RxNorm: 681139 1 CAPSULE(S) PO TID 03/25/2018 04/14/2018 Inactive hydrochlorothiazide 25 mg tablet RxNorm: 456022 1 Tablet(s) PO daily 03/14/2018 04/07/2018 Inactive Victoza 2-Marek 0.6 mg/0.1 mL (18 mg/3 mL) subcutaneous pen injector RxNorm: 491810 Milligram(s) INJECT 1.8 MG SUB-Q ONCE DAILY 02/27/2018 08/20/2019 Active qty sufficient atorvastatin 20 mg tablet RxNorm: 106395 1 Tablet(s) PO daily 02/27/2018 05/22/2019 Active Cymbalta 60 mg capsule,delayed release RxNorm: 101413 TAKE 1 CAPSULE BY MOUTH DAILY 02/27/2018 02/26/2018 Inactive Cymbalta 60 mg capsule,delayed release RxNorm: 440827 1 Capsule(s) PO daily TAKE 1 CAPSULE BY MOUTH DAILY 02/27/2018 07/14/2018 Inactive gabapentin 300 mg capsule RxNorm: 261715 1 Capsule(s) PO TID 02/27/2018 03/24/2018 Inactive Xanax 1 mg tablet RxNorm: 603424 1-2 Tablet(s) PO QHS as needed insomnia 02/27/2018 05/27/2018 Inactive meloxicam 7.5 mg tablet RxNorm: 540272 1 Tablet(s) PO daily 1 TABLET(S) PO DAILY 02/27/2018 04/14/2018 Inactive Ambien 10 mg tablet RxNorm: 892972 1 Tablet(s) PO QHS as needed insomnia 02/27/2018 05/25/2018 Inactive atorvastatin 20 mg tablet RxNorm: 850133 1 Tablet(s) PO daily 02/05/2018 02/26/2018 Inactive atorvastatin 20 mg tablet RxNorm: 644732 1 Tablet(s) PO daily 02/05/2018 02/04/2018 Inactive meloxicam 7.5 mg tablet RxNorm: 083689 1 TABLET(S) PO DAILY 02/01/2018 02/26/2018 Inactive oxycodone 15 mg tablet RxNorm: 5487333 1 Tablet(s) PO QID as needed 01/07/2018 02/19/2018 Inactive lactulose 20 gram/30 mL oral solution RxNorm: 445505 15-30 Milliliter(s) PO BID as needed 12/31/2017 02/20/2018 Inactive meloxicam 7.5 mg tablet RxNorm: 677658 1 TABLET(S) PO DAILY 12/13/2017 01/31/2018 Inactive Zorvolex 35 mg capsule RxNorm: 5548342 1 Capsule(s) PO TID 12/13/2017 02/20/2018 Inactive Ambien 10 mg tablet RxNorm: 640316 1 Tablet(s) PO QHS as needed insomnia 12/04/2017 02/26/2018 Inactive oxycodone 15 mg tablet RxNorm: 6241249 1 Tablet(s) PO QID as needed 12/04/2017 01/06/2018 Inactive prednisone 20 mg tablet RxNorm: 282944 2 Tablet(s) PO daily 12/04/2017 12/08/2017 Inactive Victoza 2-Marek 0.6 mg/0.1 mL (18 mg/3 mL) subcutaneous pen injector RxNorm: 918796 Milligram(s) INJECT 1.8 MG SUB-Q ONCE DAILY 11/20/2017 02/26/2018 Inactive meloxicam 7.5 mg tablet RxNorm: 559783 1 Tablet(s) PO daily 11/20/2017 12/12/2017 Inactive phentermine 37.5 mg tablet RxNorm: 173320 1 Tablet(s) PO daily 11/20/2017 12/19/2017 Inactive Ambien 10 mg tablet RxNorm: 182196 1 Tablet(s) PO QHS as needed insomnia 11/20/2017 12/18/2017 Inactive Xanax 1 mg tablet RxNorm: 114651 1.5 Tablet(s) PO QHS as needed insomnia 11/20/2017 02/26/2018 Inactive hydrocodone 7.5 mg-acetaminophen 325 mg tablet RxNorm: 461549 1 Tablet(s) PO TID as needed 11/16/2017 01/06/2018 Inactive Cymbalta 60 mg capsule,delayed release RxNorm: 805701 TAKE 1 CAPSULE BY MOUTH DAILY 11/02/2017 02/26/2018 Inactive Xanax 1 mg tablet RxNorm: 612658 1 Tablet(s) PO BID PRN as needed anxiety 10/04/2017 11/19/2017 Inactive Victoza 2-Marek 0.6 mg/0.1 mL (18 mg/3 mL) subcutaneous pen injector RxNorm: 475768 INJECT 1.8 MG SUB-Q ONCE DAILY 10/04/2017 11/19/2017 Inactive hydrocodone 7.5 mg-acetaminophen 325 mg tablet RxNorm: 598823 1 Tablet(s) PO TID as needed 09/17/2017 11/15/2017 Inactive hydrocodone 7.5 mg-acetaminophen 325 mg tablet RxNorm: 820549 1 Tablet(s) PO TID as needed 09/10/2017 09/16/2017 Inactive prednisone 10 mg tablet RxNorm: 311960 Tablet(s) PO 09/10/2017 11/13/2017 Inactive 6,5,4,3,2,1 Zorvolex 35 mg capsule RxNorm: 1131541 1 Capsule(s) PO TID 09/07/2017 11/13/2017 Inactive Ambien 10 mg tablet RxNorm: 001006 1 Tablet(s) PO QHS as needed insomnia 08/29/2017 11/19/2017 Inactive Zorvolex 35 mg capsule RxNorm: 2049796 1 Capsule(s) PO TID 08/28/2017 09/06/2017 Inactive Zorvolex 35 mg capsule RxNorm: 1310190 1 Capsule(s) PO TID 08/13/2017 08/27/2017 Inactive Zorvolex 35 mg capsule RxNorm: 7028580 1 Capsule(s) PO TID 08/13/2017 08/12/2017 Inactive prednisone 20 mg tablet RxNorm: 260393 2 Tablet(s) PO daily 07/31/2017 08/04/2017 Inactive hydrocodone 7.5 mg-acetaminophen 325 mg tablet RxNorm: 760394 1 Tablet(s) PO TID as needed 07/31/2017 09/09/2017 Inactive Zorvolex 35 mg capsule RxNorm: 2950486 1 Capsule(s) PO TID as needed 07/31/2017 11/13/2017 Inactive ceftriaxone 500 mg solution for injection RxNorm: 5157142 1 Milliliter(s) Inj 06/27/2017 06/27/2017 Inactive Keflex 500 mg capsule RxNorm: 127490 1 Capsule(s) PO TID 06/27/2017 07/03/2017 Inactive Ambien 10 mg tablet RxNorm: 757796 1 Tablet(s) PO daily 05/29/2017 08/25/2017 Inactive tramadol 50 mg tablet RxNorm: 259587 1 Tablet(s) PO TID as needed 05/29/2017 07/27/2017 Inactive Xanax 1 mg tablet RxNorm: 694926 1 Tablet(s) PO BID PRN as needed anxiety 05/21/2017 10/03/2017 Inactive alprazolam 1 mg tablet RxNorm: 347528 1 Tablet(s) PO BID as needed 05/21/2017 06/19/2017 Inactive Celebrex 200 mg capsule RxNorm: 496524 1 CAPSULE(S) PO BID 05/04/2017 11/05/2017 Inactive prednisone 20 mg tablet RxNorm: 891640 2 Tablet(s) PO daily 04/20/2017 04/24/2017 Inactive Ambien 10 mg tablet RxNorm: 196803 Tablet(s) PO 04/20/2017 05/28/2017 Inactive hydrocodone 5 mg-acetaminophen 325 mg tablet RxNorm: 065294 1 Tablet(s) PO QID as needed 04/20/2017 08/01/2017 Inactive Cymbalta 60 mg capsule,delayed release RxNorm: 923735 1 Capsule(s) PO daily 04/20/2017 02/26/2018 Inactive Victoza 2-Marek 0.6 mg/0.1 mL (18 mg/3 mL) subcutaneous pen injector RxNorm: 970878 INJECT 1.8 MG SUB-Q ONCE DAILY 03/26/2017 09/21/2017 Inactive diazepam 2 mg tablet RxNorm: 526559 1 Tablet(s) PO QHS as needed insomnia 01/28/2017 05/07/2017 Inactive Victoza 2-Marek 0.6 mg/0.1 mL (18 mg/3 mL) subcutaneous pen injector RxNorm: 297157 1.8 Milligram(s) SQ daily 01/26/2017 03/25/2017 Inactive dispense quantity sufficient Tussionex Pennkinetic ER 10 mg-8 mg/5 mL suspension,extended release RxNorm: 2543299 5 Milliliter(s) PO BID 01/11/2017 01/15/2017 Inactive Xanax 1 mg tablet RxNorm: 498456 1 Tablet(s) PO BID PRN as needed anxiety 01/11/2017 05/20/2017 Inactive Zithromax Z-Marek 250 mg tablet RxNorm: 119249 1 Tablet(s) PO UD 01/11/2017 01/15/2017 Inactive zpack albuterol sulfate 2.5 mg/3 mL (0.083 %) solution for nebulization RxNorm: 914633 3 Milliliter(s) INH UD 01/11/2017 11/13/2017 Inactive prednisone 20 mg tablet RxNorm: 774214 2 Tablet(s) PO daily 01/11/2017 01/15/2017 Inactive Kenalog 40 mg/mL suspension for injection RxNorm: 7683537 1.5 Milliliter(s) Inj 01/11/2017 01/11/2017 Inactive Celebrex 200 mg capsule RxNorm: 507285 1 Capsule(s) PO BID 11/30/2016 02/27/2017 Inactive Ambien 5 mg tablet RxNorm: 371399 1 Tablet(s) PO HS PRN 11/30/2016 08/07/2017 Inactive trazodone 50 mg tablet RxNorm: 784391 1/2 to 1 Tablet(s) PO QHS 10/13/2016 10/12/2016 Inactive trazodone 50 mg tablet RxNorm: 835338 1/2 to 1 Tablet(s) PO QHS 10/13/2016 11/29/2016 Inactive Belsomra 10 mg tablet RxNorm: 7518769 1 Tablet(s) PO QHS 09/28/2016 11/29/2016 Inactive may increase to 20mg if 10mg not effective Cymbalta 60 mg capsule,delayed release RxNorm: 604646 1 Capsule(s) PO daily 08/24/2016 03/21/2017 Inactive Xanax 1 mg tablet RxNorm: 614693 1 Tablet(s) PO BID PRN as needed anxiety 08/24/2016 01/10/2017 Inactive Victoza 2-Marek 0.6 mg/0.1 mL (18 mg/3 mL) subcutaneous pen injector RxNorm: 744741 Milligram(s) SQ 08/24/2016 08/23/2016 Inactive Victoza 2-Marek 0.6 mg/0.1 mL (18 mg/3 mL) subcutaneous pen injector RxNorm: 017782 1.8 Milligram(s) SQ 08/24/2016 01/25/2017 Inactive Vitamin D2 50,000 unit capsule RxNorm: 664911 1 Capsule(s) PO QW 07/13/2016 10/10/2016 Inactive Cymbalta 30 mg capsule,delayed release RxNorm: 945334 1 Capsule(s) PO daily 07/13/2016 08/23/2016 Inactive Belviq XR 20 mg tablet,extended release RxNorm: 2350737 1 Tablet(s) PO daily 05/30/2016 05/29/2016 Inactive prednisone 20 mg tablet RxNorm: 568631 2 Tablet(s) PO daily 05/30/2016 06/03/2016 Inactive prednisone 20 mg tablet RxNorm: 547166 2 Tablet(s) PO daily 05/30/2016 05/29/2016 Inactive Belviq XR 20 mg tablet,extended release RxNorm: 0213108 1 Tablet(s) PO daily 05/30/2016 06/28/2016 Inactive cyclobenzaprine 5 mg tablet RxNorm: 885516 1-2 Tablet(s) PO TID as needed 05/19/2016 05/23/2016 Inactive metoprolol succinate ER 25 mg tablet,extended release 24 hr RxNorm: 060358 1 Tablet(s) PO QPM 04/10/2016 04/13/2016 Inactive metoprolol succinate ER 25 mg tablet,extended release 24 hr RxNorm: 970969 1 Tablet(s) PO QPM 04/10/2016 04/09/2016 Inactive escitalopram 10 mg tablet RxNorm: 721920 1 Tablet(s) PO daily 03/16/2016 07/12/2016 Inactive estradiol 1 mg tablet RxNorm: 895491 1 Tablet(s) PO every other day 03/16/2016 05/15/2016 Inactive Kenalog 40 mg/mL suspension for injection RxNorm: 6366900 Milliliter(s) Inj 02/28/2016 02/28/2016 Inactive Zithromax Z-Marek 250 mg tablet RxNorm: 063068 1 Tablet(s) PO UD 02/28/2016 03/03/2016 Inactive zpack Lexapro 10 mg tablet RxNorm: 085033 1 Tablet(s) PO daily 09/27/2015 02/27/2016 Inactive Lexapro 10 mg tablet RxNorm: 534799 1 Tablet(s) PO daily 08/30/2015 09/26/2015 Inactive Vimovo 500 mg-20 mg tablet,immediate and delay release RxNorm: 377751 1 Tablet(s) PO BID as needed for pain 08/30/2015 09/26/2015 Inactive azithromycin 250 mg tablet RxNorm: 725787 1 Tablet(s) PO UD 2 pills on day #1, then one pill daily x 4 days 07/15/2015 01/12/2016 Inactive hydrocodone 10 mg-acetaminophen 325 mg tablet RxNorm: 889330 1 Tablet(s) PO QID 06/16/2015 01/12/2016 Inactive pramipexole 0.5 mg tablet RxNorm: 695249 1 Tablet(s) PO QPM 06/16/2015 07/14/2015 Inactive Celebrex 200 mg capsule RxNorm: 690839 1 Capsule(s) PO daily 05/03/2015 05/02/2015 Inactive Celebrex 200 mg capsule RxNorm: 770300 1 Capsule(s) PO daily 05/03/2015 01/12/2016 Inactive hydrocodone 7.5 mg-acetaminophen 325 mg tablet RxNorm: 853772 1 Tablet(s) PO Q6 PRN 05/03/2015 06/15/2015 Inactive Mobic 15 mg tablet RxNorm: 484972 1 Tablet(s) PO daily 04/02/2015 05/02/2015 Inactive hydrocodone 7.5 mg-acetaminophen 325 mg tablet RxNorm: 372301 1 Tablet(s) PO Q6 PRN 04/02/2015 05/02/2015 Inactive hydrocodone 5 mg-acetaminophen 325 mg tablet RxNorm: 113074 1 Tablet(s) PO Q6 as needed 12/11/2014 04/01/2015 Inactive Pennsaid 1.5 % topical drops RxNorm: 694407 40 Drop(s) TOP QID as needed 12/07/2014 02/04/2015 Inactive Apply 40 drops to each knee joint 4 times per day as needed for osteoarthritis pain estradiol 1 mg tablet RxNorm: 461792 1 Tablet(s) PO QHS No Start Date 03/15/2016 Inactive Xanax 0.5 mg tablet RxNorm: 726579 1 Tablet(s) PO Q6 as needed anxiety No Start Date 08/23/2016 Inactive Tylenol Extra Strength 500 mg tablet RxNorm: 587513 3 Tablet(s) PO BID after breakfast and after lunch No Start Date 01/12/2016 Inactive lactulose 20 gram/30 mL oral solution RxNorm: 098419 15-30 Milliliter(s) PO BID as needed No Start Date 12/30/2017 Inactive hydrocodone 5 mg-acetaminophen 325 mg tablet RxNorm: 427105 1 Tablet(s) PO Q6 as needed No Start Date 12/10/2014 Inactive Phenergan-Codeine syrup RxNorm: 5-10 Milliliter(s) PO QID as needed No Start Date 11/13/2017 Inactive ibuprofen 200 mg capsule RxNorm: 252775 4 Capsule(s) PO QID as needed No Start Date 04/01/2015 Inactive Medication Administered Medication Codes Instructions Start Date Status Kenalog 40 mg/mL suspension for injection RxNorm: 7450868 Milliliter 07/17/2018 No longer Active ceftriaxone 500 mg solution for injection RxNorm: 8699463 1Milliliter 06/27/2017 No longer Active Kenalog 40 mg/mL suspension for injection RxNorm: 5574220 1.5Milliliter 01/11/2017 No longer Active Kenalog 40 mg/mL suspension for injection RxNorm: 4394887 Milliliter 02/28/2016 No longer Active Immunizations Vaccine [...] sent to ref lab 08/27/2018 Influenza A+B Zol615 Influ A+B Pos Influenza A 07/17/2018 %Hba1C Lod927 % HbA1c 97189- 6 6.7 % 11/20/2017 %Hba1C Iwy501 Gluc Ave 146 mg/dL 11/20/2017 Free T4 Dvp960 FREE T4 0.76 ng/dL 05/21/2017 Tsh Ord6 hTSH II 1.27 uIU/mL 05/21/2017 Comp Metabolic Lyy449 NA 140 mEq/L 05/21/2017 Comp Metabolic Aai248 K 3.9 mEq/L 05/21/2017 Comp Metabolic Qrg017 CL 101 mEq/L 05/21/2017 Comp Metabolic Kih074 CO2 28.0 mEq/L 05/21/2017 Comp Metabolic Pme815 ANION GAP 15 05/21/2017 Comp Metabolic Quy330 GLUCOSE 155 mg/dL 05/21/2017 Comp Metabolic Pju880 Creat 0.7 mg/dL 05/21/2017 Comp Metabolic Umi779 eGFR 87 ml/min/1.73m2 05/21/2017 Comp Metabolic Kna432 BUN 16 mg/dL 05/21/2017 Comp Metabolic Gew732 B/C Ratio 21.6 Ratio 05/21/2017 Comp Metabolic Oys104 CALCIUM 9.4 mg/dL 05/21/2017 Comp Metabolic Lbg951 ALK PHOS 132 U/L 05/21/2017 Comp Metabolic Tec076 AST(SGOT) 16 U/L 05/21/2017 Comp Metabolic Oeu866 ALT(SGPT) 20 U/L 05/21/2017 Comp Metabolic Osu882 BILI T 0.4 mg/dL 05/21/2017 Comp Metabolic Zys729 ALBUMIN 4.0 g/dL 05/21/2017 Comp Metabolic Yfa777 TPRO 6.7 g/dL 05/21/2017 Comp Metabolic Muj320 GLOB 2.7 g/dL 05/21/2017 Comp Metabolic Iwi586 A/G Ratio 1.5 Ratio 05/21/2017 Comp Metabolic Bmi806 Osmo 284 mOsmo 05/21/2017 Cbc With Differential [...] 28.9 pg 05/21/2017 Cbc With Differential Ord2 [place]% 5.5 % 05/21/2017 Cbc With Differential Ord2 [...] 2.65 K/ul 05/21/2017 Cbc With Differential Ord2 [place] ABS# 0.8 K/ul 05/21/2017 Cbc With Differential Ord2 Eos ABS# 0.1 K/ul 05/21/2017 Cbc With Differential Ord2 Baso ABS# 0.0 K/ul 05/21/2017 Estrogens Total 863987 ESTROGENS, TOTAL 54 pg/mL 05/24/2016 Magnesium Ord90 Mag 1.8 mg/dL 05/19/2016 Tsh Ord6 hTSH II 1.56 uIU/mL 05/19/2016 Progesterone Prog 0.03 ng/mL 05/19/2016 Comp Metabolic Pmk202 NA 136 mEq/L 05/19/2016 Comp Metabolic Tcy517 K 4.3 mEq/L 05/19/2016 Comp Metabolic Ndb501 CL 100 mEq/L 05/19/2016 Comp Metabolic Lxt509 CO2 28.0 mEq/L 05/19/2016 Comp Metabolic Fqr758 ANION GAP 12 05/19/2016 Comp Metabolic Rhh488 GLUCOSE 138 mg/dL 05/19/2016 Comp Metabolic Qpi416 Creat 0.7 mg/dL 05/19/2016 Comp Metabolic Dvy040 eGFR 89 ml/min/1.73m2 05/19/2016 Comp Metabolic Npm309 BUN 15 mg/dL 05/19/2016 Comp Metabolic Eht042 B/C Ratio 20.5 Ratio 05/19/2016 Comp Metabolic Ypm559 CALCIUM 9.7 mg/dL 05/19/2016 Comp Metabolic Vzp994 ALK PHOS 106 U/L 05/19/2016 Comp Metabolic Uiu023 AST(SGOT) 21 U/L 05/19/2016 Comp Metabolic Uqu442 ALT(SGPT) 24 U/L 05/19/2016 Comp Metabolic Yxj699 BILI T 0.4 mg/dL 05/19/2016 Comp Metabolic Pcf430 ALBUMIN 4.1 g/dL 05/19/2016 Comp Metabolic Tpj195 TPRO 7.1 g/dL 05/19/2016 Comp Metabolic Ury339 GLOB 3.0 g/dL 05/19/2016 Comp Metabolic Wqu395 A/G Ratio 1.4 Ratio 05/19/2016 Comp Metabolic Ilh148 Osmo 275 mOsmo 05/19/2016 Cbc With Differential [...] 28.5 pg 05/19/2016 Cbc With Differential Ord2 [place]% 6.5 % 05/19/2016 Cbc With Differential Ord2 [...] 2.33 K/ul 05/19/2016 Cbc With Differential Ord2 [place] ABS# 0.6 K/ul 05/19/2016 Cbc With Differential Ord2 Eos ABS# 0.1 K/ul 05/19/2016 Cbc With Differential Ord2 Baso ABS# 0.0 K/ul 05/19/2016 C RAP A SC [id number] Strep A Negative 02/28/2016 Tsh Ord6 hTSH [...] 26.2 pg 08/16/2015 Cbc With Differential Ord2 [place]% 7.1 % 08/16/2015 Cbc With Differential Ord2 [...] 2.32 K/ul 08/16/2015 Cbc With Differential Ord2 [place] ABS# 0.6 K/ul 08/16/2015 Cbc With Differential Ord2 Eos ABS# 0.1 K/ul 08/16/2015 Cbc With Differential Ord2 Baso ABS# 0.0 K/ul 08/16/2015 Cbc With Differential Ord2 New Analyzer Notice Please note new ref ranges starting 05-26-2015 due to implemntation of new five part differential hematolgy analyzer. 08/16/2015 Comp Metabolic Egx377 NA 132 mEq/L 08/16/2015 Comp Metabolic Zhk460 K 3.6 mEq/L 08/16/2015 Comp Metabolic Yhr418 CL 99 mEq/L 08/16/2015 Comp Metabolic Gck798 CO2 23.0 mEq/L 08/16/2015 Comp Metabolic Iax235 ANION GAP 14 08/16/2015 Comp Metabolic Gjc458 GLUCOSE 101 mg/dL 08/16/2015 Comp Metabolic Ihr071 Creat 0.7 mg/dL 08/16/2015 Comp Metabolic Dhn454 eGFR 100 ml/min/1.73m2 08/16/2015 Comp Metabolic Qcp920 BUN 10 mg/dL 08/16/2015 Comp Metabolic Oop708 B/C Ratio 15.2 Ratio 08/16/2015 Comp Metabolic Lof658 CALCIUM 9.3 mg/dL 08/16/2015 Comp Metabolic Ixp384 ALK PHOS 100 U/L 08/16/2015 Comp Metabolic Isy077 AST(SGOT) 14 U/L 08/16/2015 Comp Metabolic Pir222 ALT(SGPT) 11 U/L 08/16/2015 Comp Metabolic Iml337 BILI T 0.3 mg/dL 08/16/2015 Comp Metabolic Uim362 ALBUMIN 3.9 g/dL 08/16/2015 Comp Metabolic Nad874 TPRO 7.1 g/dL 08/16/2015 Comp Metabolic Xmx201 GLOB 3.2 g/dL 08/16/2015 Comp Metabolic Ymz038 A/G Ratio 1.2 Ratio 08/16/2015 Comp Metabolic Xve244 Osmo 264 mOsmo 08/16/2015 Lipid Ord30 CHOL 209 mg/dL 12/03/2014 Lipid Ord30 HDL 42.0 mg/dl 12/03/2014 Lipid Ord30 TRIG 219 mg/dL 12/03/2014 Lipid Ord30 LDL 123 mg/dL 12/03/2014 Lipid Ord30 C/HDL 5.0 Ratio 12/03/2014 Comp Metabolic Mws280 NA 132 mEq/L 12/03/2014 Comp Metabolic Ifg996 K 4.0 mEq/L 12/03/2014 Comp Metabolic Hsb139 CL 101 mEq/L 12/03/2014 Comp Metabolic Egd498 CO2 22.0 mEq/L 12/03/2014 Comp Metabolic Hkb704 ANION GAP 13 12/03/2014 Comp Metabolic Syy430 GLUCOSE 123 mg/dL 12/03/2014 Comp Metabolic Eqs670 Creat 0.7 mg/dL 12/03/2014 Comp Metabolic Edj560 eGFR 97 ml/min/1.73m2 12/03/2014 Comp Metabolic Yhd392 BUN 10 mg/dL 12/03/2014 Comp Metabolic Bfi689 B/C Ratio 14.7 Ratio 12/03/2014 Comp Metabolic Zfj874 CALCIUM 9.2 mg/dL 12/03/2014 Comp Metabolic Hip375 ALK PHOS 88 U/L 12/03/2014 Comp Metabolic Rbm644 AST(SGOT) 18 U/L 12/03/2014 Comp Metabolic Fpn063 ALT(SGPT) 17 U/L 12/03/2014 Comp Metabolic Zxd088 BILI T 0.5 mg/dL 12/03/2014 Comp Metabolic Bfh772 ALBUMIN 3.9 g/dL 12/03/2014 Comp Metabolic Riq664 TPRO 6.8 g/dL 12/03/2014 Comp Metabolic Pph981 GLOB 2.9 g/dL 12/03/2014 Comp Metabolic Hws849 A/G Ratio 1.3 Ratio 12/03/2014 Comp Metabolic Hid968 Osmo 265 mOsmo 12/03/2014 Tsh Ord6 hTSH II 1.13 uIU/mL 12/03/2014 D-Dimer D-DIMER 168 NG/ML 12/03/2014 D-Dimer [id number] COMMENT 12/03/2014 Cbc With Differential Ord2 WBC [...] clear 08/12/2018 None Full Exam - General 1995 Ears/Nose/Throat oral cavity/pharynx/larynx Overall: oropharyngeal mucosa clear [...] Procedure Codes Date THER/PROPH/DIAG INJ SC/IM CPT-4: 49979 07/17/2018 TRIAMCINOLONE ACET INJ NOS CPT-4: J3301 07/17/2018 THER/PROPH/DIAG INJ SC/IM CPT-4: 23561 06/27/2017 ROCEPHIN, PER 250 MG CPT- 4: J0696 06/27/2017 IMMUNIZATION ADMIN CPT- 4: 89515 03/16/2017 FLU VAC NO PRSV 4 FLETCHER 3 YRS+ CPT-4: 93426 03/16/2017 Pneumococcal Polysaccharide Vaccine, 23-Valent, Ad CPT-4: 15153 03/16/2017 IMMUNIZATION ADMIN EACH ADD CPT-4: 24836 03/16/2017 TRIAMCINOLONE ACET INJ NOS CPT-4: J3301 01/11/2017 TRIAMCINOLONE ACET INJ NOS CPT-4: J3301 02/28/2016 Vital Signs Date Vital 08/26/2018 Blood Pressure 1: 126/72 Code: 8480-6 Heart Rate 1: 68 bpm Height: 5'6" SpO2: 94% Weight: 08/12/2018 Blood Pressure 1: 124/68 Code: 8480-6 BMI: 38.4 Code: 76238-5 Heart Rate 1: 79 bpm Height: 5'6" SpO2: 94% Weight: 238 lbs 07/17/2018 Blood Pressure 1: 126/72 Code: 8480-6 BMI: 38.6 Code: 46707-3 Heart Rate 1: 85 bpm Height: 5'6" SpO2: 95% Temperature: 36.9 (C) / 98.4 (F) Weight: 239 lbs 07/04/2018 Blood Pressure 1: 132/76 Code: 8480-6 Heart Rate 1: 80 bpm Height: SpO2: 97% Weight: 06/19/2018 Blood Pressure 1: 124/74 Code: 8480-6 BMI: 38.6 Code: 23730-6 Heart Rate 1: 85 bpm Height: 5'6" SpO2: 95% Weight: 239 lbs 04/24/2018 Blood Pressure 1: 128/74 Code: 8480-6 BMI: 37.8 Code: 91034-6 Heart Rate 1: 107 bpm Height: 5'6" SpO2: 98% Weight: 234 lbs 04/17/2018 Blood Pressure 1: 120/64 Code: 8480-6 BMI: 37.8 Code: 51868-2 Heart Rate 1: 84 bpm Height: 5'6" SpO2: 96% Weight: 234 lbs 03/14/2018 Blood Pressure 1: 140/82 Code: 8480-6 BMI: 37.8 Code: 41188-5 Heart Rate 1: 85 bpm Height: 5'6" SpO2: 98% Weight: 234 lbs 02/27/2018 Blood Pressure 1: 142/68 Code: 8480-6 BMI: 36.5 Code: 28320-0 Heart Rate 1: 84 bpm Height: 5'6" SpO2: 97% Weight: 226 lbs 12/19/2017 Blood Pressure 1: 130/86 Code: 8480-6 BMI: 35.7 Code: 64212-1 Heart Rate 1: 94 bpm Height: 5'6" Weight: 221 lbs 12/04/2017 Blood Pressure 1: 138/78 Code: 8480-6 BMI: 36.6 Code: 67904-7 Heart Rate 1: 94 bpm Height: 5'6" SpO2: 98% Weight: 227 lbs 11/20/2017 Weight: 233 lbs 09/10/2017 Blood Pressure 1: 132/86 Code: 8480-6 Heart Rate 1: 86 bpm Height: Weight: 08/14/2017 Blood Pressure 1: 120/74 Code: 8480-6 BMI: 33.9 Code: 50041-4 Heart Rate 1: 92 bpm Height: 5'6" SpO2: 94% Weight: 210 lbs 07/31/2017 Blood Pressure 1: 140/80 Code: 8480-6 BMI: 33.9 Code: 45284-3 Heart Rate 1: 96 bpm Height: 5'6" SpO2: 97% Weight: 210 lbs 06/27/2017 Blood Pressure 1: 128/80 Code: 8480-6 BMI: 33.9 Code: 85151-1 Heart Rate 1: 85 bpm Height: 5'6" [...] 1: 126/74 Code: 8480-6 BMI: 39.9 Code: 37074-4 Heart Rate 1: 79 bpm Height: 5'6" SpO2: 97% Weight: 247 lbs 01/26/2017 Blood Pressure 1: 132/74 Code: 8480-6 BMI: 37.8 Code: 13155-7 Heart Rate 1: 74 bpm Height: 5'6" SpO2: 97% Weight: 234 lbs 01/11/2017 Blood Pressure 1: 118/68 Code: 8480-6 BMI: 38.7 Code: 88772-9 Heart Rate 1: 91 bpm Height: 5'6" SpO2: 96% Weight: 240 lbs 11/30/2016 Blood Pressure 1: 132/76 Code: 8480-6 BMI: 38.3 Code: 78314-8 Heart Rate 1: 71 bpm Height: 5'6" SpO2: 92% Weight: 237 lbs 09/28/2016 Blood Pressure 1: 122/72 Code: 8480-6 BMI: 39.1 Code: 20839-8 Heart Rate 1: 88 bpm Height: 5'6" SpO2: 94% Weight: 242 lbs 08/24/2016 Blood Pressure 1: 130/87 Code: 8480-6 BMI: 41.5 Code: 12138-7 Heart Rate 1: 95 bpm Height: 5'6" Respiratory Rate: 16 bpm SpO2: 98% Temperature: 36.9 (C) / 98.5 (F) Weight: 257 lbs 07/13/2016 Blood Pressure 1: 132/84 Code: 8480-6 BMI: 42.0 Code: 18558-9 Heart Rate 1: 73 bpm Height: 5'6" SpO2: 97% Weight: 260 lbs 05/19/2016 Blood Pressure 1: 138/76 Code: 8480-6 BMI: 40.8 Code: 28668-1 Heart Rate 1: 80 bpm Height: 5'6" SpO2: 98% Weight: 253 lbs 03/16/2016 Blood Pressure 1: 122/70 Code: 8480-6 BMI: 40.4 Code: 98280-8 Heart Rate 1: 72 bpm Height: 5'6" SpO2: 98% Weight: 250 lbs 02/28/2016 Blood Pressure 1: 136/86 Code: 8480-6 BMI: 40.2 Code: 92038-5 Heart Rate 1: 87 bpm Height: 5'6" SpO2: 96% Temperature: 36.3 (C) / 97.3 (F) Weight: 249 lbs 01/13/2016 Blood Pressure 1: 120/76 Code: 8480-6 BMI: 40.4 Code: 56020-2 Heart Rate 1: 68 bpm Height: 5'6" SpO2: 97% Weight: 250 lbs 09/27/2015 Blood Pressure 1: 112/70 Code: 8480-6 BMI: 38.4 Code: 80325-0 Heart Rate 1: 76 bpm Height: 5'6" SpO2: 98% Weight: 238 lbs 08/30/2015 Blood Pressure 1: 144/82 Code: 8480-6 BMI: 39.5 Code: 30329-5 Heart Rate 1: 82 bpm Height: 5'6" SpO2: 97% Weight: 245 lbs 08/16/2015 Blood Pressure 1: 140/72 Code: 8480-6 BMI: 38.9 Code: 95186-1 Heart Rate 1: 72 bpm Height: 5'6" SpO2: 97% Weight: 241 lbs 07/15/2015 Blood Pressure 1: 128/80 Code: 8480-6 BMI: 39.3 Code: 83103-7 Heart Rate 1: 86 bpm Height: 5'6" SpO2: 98% Weight: 243 lbs 8 oz 06/16/2015 Blood Pressure 1: 146/86 Code: 8480-6 BMI: 39.6 Code: 10161-8 Heart Rate 1: 76 bpm Height: 5'6" SpO2: 97% Weight: 245 lbs 8 oz 04/02/2015 Blood Pressure 1: 132/86 Code: 8480-6 BMI: 40.7 Code: 99662-1 Heart Rate 1: 94 bpm Height: 5'6" SpO2: 98% Weight: 252 lbs 12/02/2014 Blood Pressure 1: 122/90 Code: 8480-6 BMI: 41.6 Code: 54018-4 Heart Rate 1: 77 bpm Height: 5'6" [...] Codes Date EST. PATIENT, LEVEL III Diagnosis: Dysuria[ICD10: R30.0] Diagnosis: Other obesity due to excess calories[ICD10: E66.09] Diagnosis: Type 2 diabetes mellitus with hyperglycemia[ICD10: E11.65] Petra Trejo MD, [facility] CPT-4: 50173 08/26/2018 82600 EST. PATIENT, LEVEL III Diagnosis: Type 2 diabetes mellitus without complications[ICD10: E11.9] Petra Trejo MD, [facility] CPT-4: 69909 08/12/2018 21332 EST. PATIENT, LEVEL III Diagnosis: Acute laryngopharyngitis[ICD10: J06.0] Diagnosis: Cough[ICD10: R05] Diagnosis: Other allergic rhinitis[ICD10: J30.89] Diagnosis: Right upper quadrant pain[ICD10: R10.11] Petra Trejo MD, [facility] CPT-4: 14378 07/17/2018 19580 EST. PATIENT, LEVEL III Diagnosis: Generalized anxiety disorder[ICD10: F41.1] Diagnosis: Major depressive disorder, single episode, moderate[ICD10: F32.1] Petra Trejo MD, [facility] CPT-4: 76208 07/04/2018 32714 EST. PATIENT, LEVEL IV Diagnosis: Generalized anxiety disorder[ICD10: F41.1] Diagnosis: Major depressive disorder, single episode, moderate[ICD10: F32.1] Diagnosis: Other insomnia[ICD10: G47.09] Petra Trejo MD, [facility] CPT-4: 42455 06/19/2018 98791 EST. PATIENT, LEVEL IV Diagnosis: Right upper quadrant pain[ICD10: R10.11] Diagnosis: Other chest pain[ICD10: R07.89] Petra Trejo MD, [facility] CPT-4: 06635 04/24/2018 11999 EST. PATIENT, LEVEL III Diagnosis: Generalized anxiety disorder[ICD10: F41.1] Diagnosis: Major depressive disorder, recurrent, mild[ICD10: F33.0] Diagnosis: Essential (primary) hypertension[ICD10: I10] Diagnosis: Type 2 diabetes mellitus without complications[ICD10: E11.9] Petra Trejo MD, [facility] CPT-4: 86017 04/17/2018 71382 EST. PATIENT, LEVEL III Diagnosis: Localized edema[ICD10: R60.0] Diagnosis: Essential (primary) hypertension[ICD10: I10] Petra Trejo MD, [facility] CPT-4: 64388 03/14/2018 46615 EST. PATIENT, LEVEL III Diagnosis: Pain in left knee[ICD10: M25.562] Diagnosis: Other obesity due to excess calories[ICD10: E66.09] Diagnosis: Other insomnia[ICD10: G47.09] Diagnosis: Generalized anxiety disorder[ICD10: F41.1] Petra Trejo MD, [facility] CPT-4: 98693 02/27/2018 ([id number]) Miscellaneous no charge Diagnosis: Other obesity due to excess calories[ICD10: E66.09] Heidy Trejo MD, [facility] CPT-4: 95971 12/19/2017 64107 EST. PATIENT, LEVEL III Diagnosis: Pain in right foot[ICD10: M79.671] Diagnosis: Pain in right ankle and joints of right foot[ICD10: M25.571] Petra Trejo MD, [facility] CPT-4: 14852 12/04/2017 70432 EST. PATIENT, LEVEL III Diagnosis: Pain in left knee[ICD10: M25.562] Diagnosis: Type 2 diabetes mellitus without complications[ICD10: E11.9] Diagnosis: Other obesity due to excess calories[ICD10: E66.09] Petra Trejo MD, [facility] CPT-4: 88784 11/20/2017 42845 EST. PATIENT, LEVEL III Diagnosis: Pain in left knee[ICD10: M25.562] Petra Trejo MD, [facility] CPT-4: 65826 09/10/2017 21454 EST. PATIENT, LEVEL III Diagnosis: Encounter for follow-up examination after completed treatment for conditions other than malignant neoplasm[ICD10: Z09] Diagnosis: Pain in left knee[ICD10: M25.562] Petra Trejo MD, [facility] CPT-4: 08033 08/14/2017 98230 EST. PATIENT, LEVEL III Diagnosis: Pain in left knee[ICD10: M25.562] Petra Trejo MD, [facility] CPT-4: 37185 07/31/2017 00203 EST. PATIENT, LEVEL III Diagnosis: Acute laryngopharyngitis[ICD10: J06.0] Diagnosis: Other allergic rhinitis[ICD10: J30.89] Petra Trejo MD, [facility] CPT- 4: 81799 06/27/2017 99002 EST. PATIENT, LEVEL III Diagnosis: Ganglion, left hand[ICD10: M67.442] Diagnosis: Essential (primary) hypertension[ICD10: I10] Diagnosis: Generalized anxiety disorder[ICD10: F41.1] Diagnosis: Other insomnia[ICD10: G47.09] Petra Trejo MD, [facility] CPT-4: 57464 05/29/2017 43443 EST. PATIENT, LEVEL III Diagnosis: Essential (primary) hypertension[ICD10: I10] Diagnosis: Palpitations[ICD10: R00.2] Diagnosis: Generalized anxiety disorder[ICD10: F41.1] Petra Trejo MD, [facility] CPT-4: 77701 05/21/2017 62728 EST. PATIENT, LEVEL III Diagnosis: Pain in right foot[ICD10: M79.671] Petra Trejo MD, [facility] CPT-4: 54211 04/20/2017 82608 EST. PATIENT, LEVEL IV Diagnosis: Other insomnia[ICD10: G47.09] Diagnosis: Other skin changes[ICD10: R23.8] Petra Trejo MD, [facility] CPT-4: 52724 01/26/2017 63318 EST. PATIENT, LEVEL IV Diagnosis: Acute bronchitis due to other specified organisms[ICD10: J20.8] Petra Trejo MD, [facility] CPT-4: 05596 01/11/2017 ([id number]) 16695 EST. PATIENT, LEVEL IV Diagnosis: Essential (primary) hypertension[ICD10: I10] Diagnosis: Other insomnia[ICD10: G47.09] Diagnosis: Primary generalized (osteo)arthritis[ICD10: M15.0] Diagnosis: Other obesity due to excess calories[ICD10: E66.09] Claudette Trejo MD, [facility] CPT-4: 60734 11/30/2016 ([id number]) 66206 EST. PATIENT, LEVEL III Diagnosis: Other obesity due to excess calories[ICD10: E66.09] Diagnosis: Other insomnia[ICD10: G47.09] Diagnosis: Generalized anxiety disorder[ICD10: F41.1] Claudette Trejo MD, [facility] CPT-4: 43970 09/28/2016 ([id number]) 87337 EST. PATIENT, LEVEL IV Diagnosis: Generalized anxiety disorder[ICD10: F41.1] Diagnosis: Major depressive disorder, recurrent, mild[ICD10: F33.0] Diagnosis: Other obesity due to excess calories[ICD10: E66.09] Diagnosis: Other insomnia[ICD10: G47.09] Claudette Trejo MD, [facility] CPT-4: 08448 08/24/2016 ([id number]) 53192 EST. PATIENT, LEVEL III Diagnosis: Other obesity due to excess calories[ICD10: E66.09] Diagnosis: Major depressive disorder, recurrent, moderate[ICD10: F33.1] Diagnosis: Low back pain[ICD10: M54.5] [facility] CPT-4: 00956 07/13/2016 28715 EST. PATIENT, LEVEL IV Diagnosis: Other muscle spasm[ICD10: M62.838] Diagnosis: Generalized anxiety disorder[ICD10: F41.1] Diagnosis: Major depressive disorder, recurrent, moderate[ICD10: F33.1] Diagnosis: Other insomnia[ICD10: G47.09] Petra Trejo MD, [facility] CPT-4: 66004 05/19/2016 ([id number]) 53997 EST. PATIENT, LEVEL III Diagnosis: Generalized anxiety disorder[ICD10: F41.1] Diagnosis: Major depressive disorder, recurrent, moderate[ICD10: F33.1] Heidy Trejo MD, [facility] CPT-4: 48231 03/16/2016 ([id number]) 75279 EST. PATIENT, LEVEL III Diagnosis: Streptococcal pharyngitis[ICD10: J02.0] Claudette Trejo MD, [facility] CPT-4: 81782 02/28/2016 ([id number]) 11795 EST. PATIENT, LEVEL III Diagnosis: Generalized anxiety disorder[ICD10: F41.1] Diagnosis: Other obesity due to excess calories[ICD10: E66.09] Heidy Trejo MD, [facility] CPT-4: 44691 01/13/2016 ([id number]) 67265 EST. PATIENT, LEVEL III Diagnosis: Generalized anxiety disorder[ICD10: F41.1] Diagnosis: Major depressive disorder, recurrent, unspecified[ICD10: F33.9] Heidy Trejo MD, [facility] CPT-4: 45015 09/27/2015 39578 EST. PATIENT, LEVEL IV Diagnosis: Chronic pain syndrome[ICD10: G89.4] Diagnosis: Other obesity due to excess calories[ICD10: E66.09] Diagnosis: Essential (primary) hypertension[ICD10: I10] Diagnosis: Generalized anxiety disorder[ICD10: F41.1] Diagnosis: Excessive and frequent menstruation with regular cycle[ICD10: N92.0] Diagnosis: Pain in right knee[ICD10: M25.561] Petra Trejo MD, [facility] CPT-4: 99042 08/30/2015 63218 EST. PATIENT, LEVEL IV Diagnosis: Palpitations[ICD10: R00.2] Diagnosis: Other obesity due to excess calories[ICD10: E66.09] Petra Trejo MD, [facility] CPT-4: 53026 08/16/2015 ([id number]) 85368 EST. PATIENT, LEVEL IV Diagnosis: Pain in right knee[ICD10: M25.561] Diagnosis: Primary generalized (osteo)arthritis[ICD10: M15.0] Diagnosis: Acute maxillary sinusitis, unspecified[ICD10: J01.00] Heidy Trejo MD, [facility] CPT-4: 55033 07/15/2015 ([id number]) 55577 EST. PATIENT, LEVEL IV Diagnosis: Primary generalized (osteo)arthritis[ICD10: M15.0] Diagnosis: Restless legs syndrome[ICD10: G25.81] Diagnosis: Chronic pain syndrome[ICD10: G89.4] Heidy Trejo MD, [facility] CPT- 4: 69781 06/16/2015 ([id number]) 05591 EST. PATIENT, LEVEL III Diagnosis: Primary generalized (osteo)arthritis[ICD10: M15.0] Diagnosis: Varicose veins of bilateral lower extremities with pain[ICD10: I83.813] Claudette Trejo MD, [facility] CPT-4: 11207 04/02/2015 ([id number]) OFFICE VISIT, NEW - LEVEL 3 Diagnosis: Osteoarthritis[ICD9: 715.90] Diagnosis: ABNORMAL WEIGHT GAIN[ICD9: 783.1] Diagnosis: Superficial thrombophlebitis[ICD9: 451.9] Carey Trejo MD, [facility] CPT-4: 01667 12/02/2014 Plan of Care Planned Activity Notes [...] glucose control. 08/26/2018 Appointment: Petra Rivas WPtel: [address] [place], [place] [id number] (30 min) [facility] 08/26/2018 Patient Education: Patient Medication Summary Completed [...] control. 08/12/2018 Appointment: Petra Rivas WPtel: [phone] [facility] [address] (30 min) Complex 08/12/2018 Patient Education: Patient [...] indicated 07/17/2018 Appointment: Petra Rivas WPtel: [phone] [facility] [address] (30 min) Complex 07/17/2018 Patient Education: Patient [...] current medications. 07/04/2018 Appointment: Petra Rivas WPtel: [address] [facility] [address] (30 min) Complex 07/04/2018 Patient Education: Patient [...] patient. 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 04/17/2018 Appointment: Petra Rivas WPtel: [phone] [facility] (15 min) Moderate 04/17/2018 [...] Rivas WPtel: [address] [facility] [address] (15 min) Moderate 03/14/2018 Patient Education: Patient [...] - defer to ortho 02/27/2018 Appointment: Petra iRvas WPtel: [phone] [facility] [address] [place] (30 min) Complex 02/27/2018 Patient Education: [...] not improve. 12/04/2017 Appointment: Petra Rivas WPtel: [phone] [facility] [address] [place] (15 min) Moderate 12/04/2017 Patient Education: [...] glucose control. 11/20/2017 Appointment: Petra Rivas WPtel: [facility] [address] [place] (15 min) Moderate 11/20/2017 Patient Education: [...] not improve. 09/10/2017 Appointment: Petra Rivas WPtel: [address] [place], [place] [address] [place] (15 min) Moderate 09/10/2017 Patient Education: [...] not improve. 08/14/2017 Appointment: Petra Rivas WPtel: [facility] [address] [place] (30 min) Complex 08/14/2017 Patient Education: Patient Medication Summary Completed 08/14/2017 Appointment: Petra Rivas WPtel: [address] [place], [place] [address] [place] (15 min) Moderate 08/01/2017 Visit Plan: Knee pain - pt is to use RICE - Rest, Ice, Compression, Elevation - pt is to use crutches as directed - The pt is to use prn antiinflammatories to manage acute pain. The patient is to call the office if the pain is worsening or does not improve. 07/31/2017 Appointment: Petra Rivas WPtel: [address] [place], [place] [address] [place] (30 min) Complex 07/31/2017 Patient Education: Patient Medication Summary Completed 07/31/2017 Care Plan: X-RAY EXAM OF KNEE 3 LOINC : 84523-7 Pending 07/31/2017 Visit Plan: URI - Pt [...] spray. 06/27/2017 Appointment: Petra Rivas WPtel: [phone] [facility] (15 min) Moderate 06/27/2017 Patient Education: Patient Medication Summary Completed 06/27/2017 Referral: Jignesh Quinn [facility] Patient informed. Referral info faxed. Completed [...] Quinn 05/29/2017 Appointment: Petra Rivas WPtel: [phone] [facility] [address] (15 min) Moderate 05/29/2017 Patient Education: Patient Medication Summary Completed 05/29/2017 Care Plan: Referral Order SNOMED-CT : [id number] Pending 05/29/2017 Appointment: Petra Rivas WPtel: [facility] [address] (15 min) Moderate 05/28/2017 Visit Plan: Palpitations [...] acute concerns. 05/21/2017 Appointment: Petra Rivas WPtel: [facility] [address] (15 min) Moderate 05/21/2017 Patient Education: Patient Medication Summary Completed 05/21/2017 Visit Plan: Right heel pain - will send RX, pt is to do stretches as directed - The pt is to use prn antiinflammatories to manage acute pain. The patient is to call the office if the pain is worsening or does not improve. 04/20/2017 Appointment: Petra Rivas WPtel: [facility] [address] [place] (30 min) Complex 04/20/2017 Patient Education: Patient Medication Summary Completed 04/20/2017 Appointment: Petra Rivas WPtel: [phone] [facility] [address] (30 min) Complex 03/29/2017 Patient Education: Patient Medication Summary Completed 03/16/2017 Referral: Maycol Quijano Referral Initiated 02/08/2017 Care Plan: Referral Order SNOMED-CT : [id number] Pending 01/28/2017 Visit Plan: Insomnia - Pt [...] changes, questions, or concerns. 01/26/2017 Appointment: Petra Rivas: [facility]5 [facility] (30 min) Complex 01/26/2017 Patient Education: Patient [...] if symptoms acutely worsen. 01/11/2017 Appointment: Petra Rivasl: [phone] [facility] (15 min) Moderate 01/11/2017 Patient Education: Patient [...] and instructed on use. 11/30/2016 Appointment: Claudette Savagel: [facility]5 [phone] (15 min) Moderate 11/30/2016 Patient Education: Patient Medication Summary Completed 11/30/2016 Patient Education: Obesity Completed 11/30/2016 Care Plan: BMI Above normal followup SELF-MGMT EDUC & TRAIN 1 PT Pending 11/30/2016 Visit Plan: Qycnnud-cebbskqwqm-nodocwsi with increase in cymbalta- no changes Insomnia-RX for belsomra provided and instructed on use Obesity- patient down 15#-no changes-continue diet/exercise-follow up in 2 months 09/28/2016 Appointment: Claudette Savage WPtel: [facility]5 [phone] (15 min) Moderate 09/28/2016 Patient Education: Patient Medication Summary Completed 09/28/2016 Patient Education: Obesity Completed 09/28/2016 Care Plan: BMI Above normal followup SELF-MGMT EDUC & TRAIN 1 PT Pending 09/28/2016 Visit Plan: Fujkyvu-jgoxxlukqq-gsrnptdu-increase cymbalta to 60mg daily. Increase xanax as [...] for insomnia/anxiety 08/24/2016 Appointment: Claudette Savage WPtel: [facility]5 [phone] (15 min) Moderate 08/24/2016 Patient Education: Patient [...] not improving. 07/13/2016 Appointment: Heidy Trejo WPtel: [facility]5 [facility] (15 min) Moderate 07/13/2016 Patient Education: Patient [...] insomnia. 05/19/2016 Appointment: Petra Rivas WPtel: [phone] [facility] [address] (30 min) Complex 05/19/2016 Patient Education: Patient [...] patient. 03/16/2016 App[facility]ment[facility] ([facility] min) Moderate 03/16/2016 Patient Education: [...] swab. 02/28/2016 Appointment: Claudette Savage WPtel: [phone] [phone] (10 min) Simple 02/28/2016 Patient Education: Patient [...] lexapro 01/13/2016 Appointment: [phone] (15 min) Moderate 01/13/2016 Patient Education: [...] 09/27/2015 Care Plan: Referral Order SNOMED-CT : [id number] Pending 08/31/2015 Visit Plan: Anxiety - the [...] pain symptoms. 07/15/2015 Appointment: Heidy Trejo WPtel: [facility] (15 min) Moderate 07/15/2015 Patient Education: Patient [...] vein clinic 04/02/2015 Appointment: Claudette Savage WPtel: [facility]9 [phone] [place] (15 min) Moderate 04/02/2015 Patient Education: [...] Completed 12/02/2014 Referral: Belle Hoffman WPtel: [phone] [facility] they will call and set the appt with her Initiated Referral: Maycol Quijano Referral Initiated Referral: Belle Hoffman WPtel: [phone] [facility] Referral Initiated Referral: Jignesh Quinn [place] Referral Initiated Instructions Comment . 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 Anxiety and Depression- the patient has [...] 1 mg at night for anxiety . Fusircc-tbtedyvzrz-ujiuqxdl-increase cymbalta to 60mg daily. Increase xanax as [...] to allow for greater blood glucose control. [employer] website contrave 1 pill nightly x 1 [...] appropriately prescribed for this patient. BELSOMRA . Rukjoff-jkepmxdyjx-rnyrfngi with increase in cymbalta-no changes Insomnia-RX for [...]
--- OUTSIDE RECORDS SUMMARY | 2018-10-14 13:05 | XMS REPORT | CCD ---
Author Author [place] Organization [facility] Address [address] [place] [address] Phone Care Team Providers Care [employer] Agent Name Role Phone PP Unavailable CCM Unavailable Summary Purpose Interface Exchange Insurance Providers Payer name Policy type / Coverage type Covered republican ID Effective Begin Date Effective End Date [facility] Commercial Insurance [id number] Unknown Family history Brother Diagnosis Age At [...] Description Effective Dates Tobacco history SNOMED CT: 1038663 Quit less than 5 years ago 04/02/2015 Alcohol history Unknown occasionally drinks alcohol 04/02/2015 Marital status Unknown Manuel Vitale 12/02/2014 Number of children Unknown 3 12/02/2014 Allergies, Adverse Reactions, Alerts Substance Reaction Codes Entered Date Inactivated Date Status * NO KNOWN FOOD ALLERGIES Unknown 12/02/2014 No Inactive Date Active Penicillin Unknown 12/02/2014 No Inactive Date Active tramadol RxNorm: 39965 12/02/2014 No Inactive Date Active Past Medical [...] (18 mg/3 mL) subcutaneous pen injector RxNorm: 2164827 1.8 Milligram(s) SQ daily 08/28/2018 12/25/2018 Active disp qty sufficient- [place] approved Saxenda 3 mg/0.5 mL (18 mg/3 mL) subcutaneous pen injector RxNorm: 9930611 1.8 Milligram(s) SQ daily 08/28/2018 08/27/2018 Inactive disp qty sufficient Saxenda 3 mg/0.5 mL (18 mg/3 mL) subcutaneous pen injector RxNorm: 5522856 1.8 Milliliter(s) SQ daily 08/27/2018 08/27/2018 Inactive disp qty sufficient Xanax 1 mg tablet RxNorm: 720971 1-2 Tablet(s) PO QHS as needed insomnia 08/26/2018 11/23/2018 Active metformin 500 mg tablet RxNorm: 322080 1 Tablet(s) PO BID 08/26/2018 12/23/2018 Active Keflex 500 mg capsule RxNorm: 831410 1 Capsule(s) PO TID 08/26/2018 09/01/2018 Active Protonix 40 mg tablet,delayed release RxNorm: 441663 1 TABLET(S) PO DAILY 08/12/2018 12/09/2018 Active metformin 500 mg tablet RxNorm: 409567 1 Tablet(s) PO daily 08/12/2018 08/25/2018 Inactive Lasix 20 mg tablet RxNorm: 051093 1 TABLET(S) PO DAILY NEEDED EDEMA 08/06/2018 10/04/2018 Active potassium chloride ER 10 mEq tablet,extended release RxNorm: 015761 1 TABLET(S) PO DAILY NEEDED TO TAKE WHEN YOU TAKE THE LASIX 08/06/2018 10/04/2018 Active Zorvolex 35 mg capsule RxNorm: 8727161 TAKE 1 CAPSULE BY MOUTH THREE (3) TIMES DAILY 08/02/2018 11/29/2018 Active prednisone 20 mg tablet RxNorm: 177829 Tablet(s) PO 07/17/2018 No Stop Date Active 20mg tonight then starting tomorrow: 60,60,40,40,20,20,10,10 Remeron 15 mg tablet RxNorm: 460050 1/2 Tablet(s) PO QHS 07/17/2018 2019 Active Tamiflu 75 mg capsule RxNorm: 884167 1 Capsule(s) PO BID 07/17/2018 07/21/2018 Inactive Kenalog 40 mg/mL suspension for injection RxNorm: 1657185 Milliliter(s) Inj 07/17/2018 07/17/2018 Inactive Lexapro 20 mg tablet RxNorm: 076866 1 TABLET(S) PO DAILY 07/15/2018 11/11/2018 Active potassium chloride ER 10 mEq tablet,extended release RxNorm: 207322 1 Tablet(s) PO daily as needed to take when you take the lasix 07/04/2018 08/02/2018 Inactive Lasix 20 mg tablet RxNorm: 332119 1 Tablet(s) PO daily as needed edema 07/04/2018 08/02/2018 Inactive Cymbalta 30 mg capsule,delayed release RxNorm: 866797 1 CAPSULE(S) PO DAILY TO BE TAKEN WITH 60MG TO=90MG 07/01/2018 07/14/2018 Inactive hydrochlorothiazide 25 mg tablet RxNorm: 340390 1 TABLET(S) PO DAILY 06/27/2018 09/24/2018 Active Remeron 15 mg tablet RxNorm: 355641 1/2 Tablet(s) PO QHS 06/20/2018 07/16/2018 Inactive Lasix 20 mg tablet RxNorm: 216391 1 Tablet(s) PO daily 06/19/2018 06/21/2018 Inactive potassium chloride ER 10 mEq tablet,extended release RxNorm: 848922 1 Tablet(s) PO daily 06/19/2018 07/03/2018 Inactive Lexapro 20 mg tablet RxNorm: 358699 1 Tablet(s) PO daily 06/19/2018 07/14/2018 Inactive gabapentin 300 mg capsule RxNorm: 116128 1 CAPSULE(S) PO TID 06/14/2018 08/12/2018 Inactive Ambien 10 mg tablet RxNorm: 369801 1 Tablet(s) PO QHS as needed insomnia 06/10/2018 09/07/2018 Active Cymbalta 30 mg capsule,delayed release RxNorm: 428255 1 Capsule(s) PO daily 06/03/2018 06/02/2018 Inactive Cymbalta 30 mg capsule,delayed release RxNorm: 136968 1 Capsule(s) PO daily to be taken with 60mg to=90mg 06/03/2018 06/30/2018 Inactive Protonix 40 mg tablet,delayed release RxNorm: 288538 1 TABLET(S) PO DAILY 05/20/2018 08/11/2018 Inactive gabapentin 300 mg capsule RxNorm: 675460 1 CAPSULE(S) PO TID 05/15/2018 06/13/2018 Inactive Protonix 40 mg tablet,delayed release RxNorm: 221001 1 Tablet(s) PO daily 04/24/2018 05/19/2018 Inactive Zorvolex 35 mg capsule RxNorm: 8352496 TAKE 1 CAPSULE BY MOUTH THREE (3) TIMES DAILY 04/22/2018 08/01/2018 Inactive hydrochlorothiazide 25 mg tablet RxNorm: 146371 1 TABLET(S) PO DAILY 04/08/2018 06/26/2018 Inactive Zorvolex 35 mg capsule RxNorm: 8834778 TAKE 1 CAPSULE BY MOUTH THREE (3) TIMES DAILY 03/27/2018 04/21/2018 Inactive gabapentin 300 mg capsule RxNorm: 171972 1 CAPSULE(S) PO TID 03/25/2018 04/14/2018 Inactive hydrochlorothiazide 25 mg tablet RxNorm: 449975 1 Tablet(s) PO daily 03/14/2018 04/07/2018 Inactive Victoza 2-Marek 0.6 mg/0.1 mL (18 mg/3 mL) subcutaneous pen injector RxNorm: 307369 Milligram(s) INJECT 1.8 MG SUB-Q ONCE DAILY 02/27/2018 08/20/2019 Active qty sufficient atorvastatin 20 mg tablet RxNorm: 477639 1 Tablet(s) PO daily 02/27/2018 05/22/2019 Active Cymbalta 60 mg capsule,delayed release RxNorm: 288639 TAKE 1 CAPSULE BY MOUTH DAILY 02/27/2018 02/26/2018 Inactive Cymbalta 60 mg capsule,delayed release RxNorm: 878892 1 Capsule(s) PO daily TAKE 1 CAPSULE BY MOUTH DAILY 02/27/2018 07/14/2018 Inactive gabapentin 300 mg capsule RxNorm: 263169 1 Capsule(s) PO TID 02/27/2018 03/24/2018 Inactive Xanax 1 mg tablet RxNorm: 715899 1-2 Tablet(s) PO QHS as needed insomnia 02/27/2018 05/27/2018 Inactive meloxicam 7.5 mg tablet RxNorm: 455118 1 Tablet(s) PO daily 1 TABLET(S) PO DAILY 02/27/2018 04/14/2018 Inactive Ambien 10 mg tablet RxNorm: 415840 1 Tablet(s) PO QHS as needed insomnia 02/27/2018 05/25/2018 Inactive atorvastatin 20 mg tablet RxNorm: 909856 1 Tablet(s) PO daily 02/05/2018 02/26/2018 Inactive atorvastatin 20 mg tablet RxNorm: 763138 1 Tablet(s) PO daily 02/05/2018 02/04/2018 Inactive meloxicam 7.5 mg tablet RxNorm: 426522 1 TABLET(S) PO DAILY 02/01/2018 02/26/2018 Inactive oxycodone 15 mg tablet RxNorm: 3450025 1 Tablet(s) PO QID as needed 01/07/2018 02/19/2018 Inactive lactulose 20 gram/30 mL oral solution RxNorm: 779889 15-30 Milliliter(s) PO BID as needed 12/31/2017 02/20/2018 Inactive meloxicam 7.5 mg tablet RxNorm: 569432 1 TABLET(S) PO DAILY 12/13/2017 01/31/2018 Inactive Zorvolex 35 mg capsule RxNorm: 8144513 1 Capsule(s) PO TID 12/13/2017 02/20/2018 Inactive Ambien 10 mg tablet RxNorm: 791846 1 Tablet(s) PO QHS as needed insomnia 12/04/2017 02/26/2018 Inactive oxycodone 15 mg tablet RxNorm: 9116620 1 Tablet(s) PO QID as needed 12/04/2017 01/06/2018 Inactive prednisone 20 mg tablet RxNorm: 682542 2 Tablet(s) PO daily 12/04/2017 12/08/2017 Inactive Victoza 2-Marek 0.6 mg/0.1 mL (18 mg/3 mL) subcutaneous pen injector RxNorm: 744764 Milligram(s) INJECT 1.8 MG SUB-Q ONCE DAILY 11/20/2017 02/26/2018 Inactive meloxicam 7.5 mg tablet RxNorm: 208969 1 Tablet(s) PO daily 11/20/2017 12/12/2017 Inactive phentermine 37.5 mg tablet RxNorm: 058269 1 Tablet(s) PO daily 11/20/2017 12/19/2017 Inactive Ambien 10 mg tablet RxNorm: 266550 1 Tablet(s) PO QHS as needed insomnia 11/20/2017 12/18/2017 Inactive Xanax 1 mg tablet RxNorm: 754179 1.5 Tablet(s) PO QHS as needed insomnia 11/20/2017 02/26/2018 Inactive hydrocodone 7.5 mg-acetaminophen 325 mg tablet RxNorm: 722461 1 Tablet(s) PO TID as needed 11/16/2017 01/06/2018 Inactive Cymbalta 60 mg capsule,delayed release RxNorm: 942316 TAKE 1 CAPSULE BY MOUTH DAILY 11/02/2017 02/26/2018 Inactive Xanax 1 mg tablet RxNorm: 368159 1 Tablet(s) PO BID PRN as needed anxiety 10/04/2017 11/19/2017 Inactive Victoza 2-Marek 0.6 mg/0.1 mL (18 mg/3 mL) subcutaneous pen injector RxNorm: 307509 INJECT 1.8 MG SUB-Q ONCE DAILY 10/04/2017 11/19/2017 Inactive hydrocodone 7.5 mg-acetaminophen 325 mg tablet RxNorm: 202554 1 Tablet(s) PO TID as needed 09/17/2017 11/15/2017 Inactive hydrocodone 7.5 mg-acetaminophen 325 mg tablet RxNorm: 559455 1 Tablet(s) PO TID as needed 09/10/2017 09/16/2017 Inactive prednisone 10 mg tablet RxNorm: 031328 Tablet(s) PO 09/10/2017 11/13/2017 Inactive 6,5,4,3,2,1 Zorvolex 35 mg capsule RxNorm: 4531009 1 Capsule(s) PO TID 09/07/2017 11/13/2017 Inactive Ambien 10 mg tablet RxNorm: 461449 1 Tablet(s) PO QHS as needed insomnia 08/29/2017 11/19/2017 Inactive Zorvolex 35 mg capsule RxNorm: 6739381 1 Capsule(s) PO TID 08/28/2017 09/06/2017 Inactive Zorvolex 35 mg capsule RxNorm: 6537631 1 Capsule(s) PO TID 08/13/2017 08/27/2017 Inactive Zorvolex 35 mg capsule RxNorm: 5401856 1 Capsule(s) PO TID 08/13/2017 08/12/2017 Inactive prednisone 20 mg tablet RxNorm: 849282 2 Tablet(s) PO daily 07/31/2017 08/04/2017 Inactive hydrocodone 7.5 mg-acetaminophen 325 mg tablet RxNorm: 784506 1 Tablet(s) PO TID as needed 07/31/2017 09/09/2017 Inactive Zorvolex 35 mg capsule RxNorm: 5518072 1 Capsule(s) PO TID as needed 07/31/2017 11/13/2017 Inactive ceftriaxone 500 mg solution for injection RxNorm: 0147714 1 Milliliter(s) Inj 06/27/2017 06/27/2017 Inactive Keflex 500 mg capsule RxNorm: 027268 1 Capsule(s) PO TID 06/27/2017 07/03/2017 Inactive Ambien 10 mg tablet RxNorm: 338389 1 Tablet(s) PO daily 05/29/2017 08/25/2017 Inactive tramadol 50 mg tablet RxNorm: 810557 1 Tablet(s) PO TID as needed 05/29/2017 07/27/2017 Inactive Xanax 1 mg tablet RxNorm: 282219 1 Tablet(s) PO BID PRN as needed anxiety 05/21/2017 10/03/2017 Inactive alprazolam 1 mg tablet RxNorm: 188154 1 Tablet(s) PO BID as needed 05/21/2017 06/19/2017 Inactive Celebrex 200 mg capsule RxNorm: 964771 1 CAPSULE(S) PO BID 05/04/2017 11/05/2017 Inactive prednisone 20 mg tablet RxNorm: 184575 2 Tablet(s) PO daily 04/20/2017 04/24/2017 Inactive Ambien 10 mg tablet RxNorm: 973299 Tablet(s) PO 04/20/2017 05/28/2017 Inactive hydrocodone 5 mg-acetaminophen 325 mg tablet RxNorm: 448231 1 Tablet(s) PO QID as needed 04/20/2017 08/01/2017 Inactive Cymbalta 60 mg capsule,delayed release RxNorm: 625732 1 Capsule(s) PO daily 04/20/2017 02/26/2018 Inactive Victoza 2-Marek 0.6 mg/0.1 mL (18 mg/3 mL) subcutaneous pen injector RxNorm: 301031 INJECT 1.8 MG SUB-Q ONCE DAILY 03/26/2017 09/21/2017 Inactive diazepam 2 mg tablet RxNorm: 888237 1 Tablet(s) PO QHS as needed insomnia 01/28/2017 05/07/2017 Inactive Victoza 2-Marek 0.6 mg/0.1 mL (18 mg/3 mL) subcutaneous pen injector RxNorm: 214142 1.8 Milligram(s) SQ daily 01/26/2017 03/25/2017 Inactive dispense quantity sufficient Tussionex Pennkinetic ER 10 mg-8 mg/5 mL suspension,extended release RxNorm: 3347095 5 Milliliter(s) PO BID 01/11/2017 01/15/2017 Inactive Xanax 1 mg tablet RxNorm: 859003 1 Tablet(s) PO BID PRN as needed anxiety 01/11/2017 05/20/2017 Inactive Zithromax Z-Marek 250 mg tablet RxNorm: 587699 1 Tablet(s) PO UD 01/11/2017 01/15/2017 Inactive zpack albuterol sulfate 2.5 mg/3 mL (0.083 %) solution for nebulization RxNorm: 262761 3 Milliliter(s) INH UD 01/11/2017 11/13/2017 Inactive prednisone 20 mg tablet RxNorm: 036537 2 Tablet(s) PO daily 01/11/2017 01/15/2017 Inactive Kenalog 40 mg/mL suspension for injection RxNorm: 6681820 1.5 Milliliter(s) Inj 01/11/2017 01/11/2017 Inactive Celebrex 200 mg capsule RxNorm: 068039 1 Capsule(s) PO BID 11/30/2016 02/27/2017 Inactive Ambien 5 mg tablet RxNorm: 873431 1 Tablet(s) PO HS PRN 11/30/2016 08/07/2017 Inactive trazodone 50 mg tablet RxNorm: 320860 1/2 to 1 Tablet(s) PO QHS 10/13/2016 10/12/2016 Inactive trazodone 50 mg tablet RxNorm: 970095 1/2 to 1 Tablet(s) PO QHS 10/13/2016 11/29/2016 Inactive Belsomra 10 mg tablet RxNorm: 1280147 1 Tablet(s) PO QHS 09/28/2016 11/29/2016 Inactive may increase to 20mg if 10mg not effective Cymbalta 60 mg capsule,delayed release RxNorm: 646701 1 Capsule(s) PO daily 08/24/2016 03/21/2017 Inactive Xanax 1 mg tablet RxNorm: 095841 1 Tablet(s) PO BID PRN as needed anxiety 08/24/2016 01/10/2017 Inactive Victoza 2-Marek 0.6 mg/0.1 mL (18 mg/3 mL) subcutaneous pen injector RxNorm: 688369 Milligram(s) SQ 08/24/2016 08/23/2016 Inactive Victoza 2-Marek 0.6 mg/0.1 mL (18 mg/3 mL) subcutaneous pen injector RxNorm: 993755 1.8 Milligram(s) SQ 08/24/2016 01/25/2017 Inactive Vitamin D2 50,000 unit capsule RxNorm: 312542 1 Capsule(s) PO QW 07/13/2016 10/10/2016 Inactive Cymbalta 30 mg capsule,delayed release RxNorm: 952234 1 Capsule(s) PO daily 07/13/2016 08/23/2016 Inactive Belviq XR 20 mg tablet,extended release RxNorm: 1280189 1 Tablet(s) PO daily 05/30/2016 05/29/2016 Inactive prednisone 20 mg tablet RxNorm: 807344 2 Tablet(s) PO daily 05/30/2016 06/03/2016 Inactive prednisone 20 mg tablet RxNorm: 748000 2 Tablet(s) PO daily 05/30/2016 05/29/2016 Inactive Belviq XR 20 mg tablet,extended release RxNorm: 0053341 1 Tablet(s) PO daily 05/30/2016 06/28/2016 Inactive cyclobenzaprine 5 mg tablet RxNorm: 686757 1-2 Tablet(s) PO TID as needed 05/19/2016 05/23/2016 Inactive metoprolol succinate ER 25 mg tablet,extended release 24 hr RxNorm: 649993 1 Tablet(s) PO QPM 04/10/2016 04/13/2016 Inactive metoprolol succinate ER 25 mg tablet,extended release 24 hr RxNorm: 668917 1 Tablet(s) PO QPM 04/10/2016 04/09/2016 Inactive escitalopram 10 mg tablet RxNorm: 976972 1 Tablet(s) PO daily 03/16/2016 07/12/2016 Inactive estradiol 1 mg tablet RxNorm: 786111 1 Tablet(s) PO every other day 03/16/2016 05/15/2016 Inactive Kenalog 40 mg/mL suspension for injection RxNorm: 8521716 Milliliter(s) Inj 02/28/2016 02/28/2016 Inactive Zithromax Z-Marek 250 mg tablet RxNorm: 407479 1 Tablet(s) PO UD 02/28/2016 03/03/2016 Inactive zpack Lexapro 10 mg tablet RxNorm: 467158 1 Tablet(s) PO daily 09/27/2015 02/27/2016 Inactive Lexapro 10 mg tablet RxNorm: 162139 1 Tablet(s) PO daily 08/30/2015 09/26/2015 Inactive Vimovo 500 mg-20 mg tablet,immediate and delay release RxNorm: 613663 1 Tablet(s) PO BID as needed for pain 08/30/2015 09/26/2015 Inactive azithromycin 250 mg tablet RxNorm: 599651 1 Tablet(s) PO UD 2 pills on day #1, then one pill daily x 4 days 07/15/2015 01/12/2016 Inactive hydrocodone 10 mg-acetaminophen 325 mg tablet RxNorm: 782444 1 Tablet(s) PO QID 06/16/2015 01/12/2016 Inactive pramipexole 0.5 mg tablet RxNorm: 985519 1 Tablet(s) PO QPM 06/16/2015 07/14/2015 Inactive Celebrex 200 mg capsule RxNorm: 594995 1 Capsule(s) PO daily 05/03/2015 05/02/2015 Inactive Celebrex 200 mg capsule RxNorm: 492872 1 Capsule(s) PO daily 05/03/2015 01/12/2016 Inactive hydrocodone 7.5 mg-acetaminophen 325 mg tablet RxNorm: 917356 1 Tablet(s) PO Q6 PRN 05/03/2015 06/15/2015 Inactive Mobic 15 mg tablet RxNorm: 946977 1 Tablet(s) PO daily 04/02/2015 05/02/2015 Inactive hydrocodone 7.5 mg-acetaminophen 325 mg tablet RxNorm: 163625 1 Tablet(s) PO Q6 PRN 04/02/2015 05/02/2015 Inactive hydrocodone 5 mg-acetaminophen 325 mg tablet RxNorm: 611451 1 Tablet(s) PO Q6 as needed 12/11/2014 04/01/2015 Inactive Pennsaid 1.5 % topical drops RxNorm: 677066 40 Drop(s) TOP QID as needed 12/07/2014 02/04/2015 Inactive Apply 40 drops to each knee joint 4 times per day as needed for osteoarthritis pain estradiol 1 mg tablet RxNorm: 704138 1 Tablet(s) PO QHS No Start Date 03/15/2016 Inactive Xanax 0.5 mg tablet RxNorm: 495894 1 Tablet(s) PO Q6 as needed anxiety No Start Date 08/23/2016 Inactive Tylenol Extra Strength 500 mg tablet RxNorm: 720704 3 Tablet(s) PO BID after breakfast and after lunch No Start Date 01/12/2016 Inactive lactulose 20 gram/30 mL oral solution RxNorm: 210922 15-30 Milliliter(s) PO BID as needed No Start Date 12/30/2017 Inactive hydrocodone 5 mg-acetaminophen 325 mg tablet RxNorm: 243826 1 Tablet(s) PO Q6 as needed No Start Date 12/10/2014 Inactive Phenergan-Codeine syrup RxNorm: 5-10 Milliliter(s) PO QID as needed No Start Date 11/13/2017 Inactive ibuprofen 200 mg capsule RxNorm: 174002 4 Capsule(s) PO QID as needed No Start Date 04/01/2015 Inactive Medication Administered Medication Codes Instructions Start Date Status Kenalog 40 mg/mL suspension for injection RxNorm: 5388466 Milliliter 07/17/2018 No longer Active ceftriaxone 500 mg solution for injection RxNorm: 4755666 1Milliliter 06/27/2017 No longer Active Kenalog 40 mg/mL suspension for injection RxNorm: 2717796 1.5Milliliter 01/11/2017 No longer Active Kenalog 40 mg/mL suspension for injection RxNorm: 9876690 Milliliter 02/28/2016 No longer Active Immunizations Vaccine [...] sent to ref lab 08/27/2018 Influenza A+B Dhb859 Influ A+B Pos Influenza A 07/17/2018 %Hba1C Tfv878 % HbA1c 52737- 6 6.7 % 11/20/2017 %Hba1C Udq041 Gluc Ave 146 mg/dL 11/20/2017 Free T4 Xex696 FREE T4 0.76 ng/dL 05/21/2017 Tsh Ord6 hTSH II 1.27 uIU/mL 05/21/2017 Comp Metabolic Sjy442 NA 140 mEq/L 05/21/2017 Comp Metabolic Afb353 K 3.9 mEq/L 05/21/2017 Comp Metabolic Klm324 CL 101 mEq/L 05/21/2017 Comp Metabolic Nxo353 CO2 28.0 mEq/L 05/21/2017 Comp Metabolic Whr320 ANION GAP 15 05/21/2017 Comp Metabolic Yla303 GLUCOSE 155 mg/dL 05/21/2017 Comp Metabolic Zxz268 Creat 0.7 mg/dL 05/21/2017 Comp Metabolic Cfl164 eGFR 87 ml/min/1.73m2 05/21/2017 Comp Metabolic Tmq200 BUN 16 mg/dL 05/21/2017 Comp Metabolic Ktc728 B/C Ratio 21.6 Ratio 05/21/2017 Comp Metabolic Pxm722 CALCIUM 9.4 mg/dL 05/21/2017 Comp Metabolic Eoh002 ALK PHOS 132 U/L 05/21/2017 Comp Metabolic Vpd369 AST(SGOT) 16 U/L 05/21/2017 Comp Metabolic Sqv017 ALT(SGPT) 20 U/L 05/21/2017 Comp Metabolic Tdt215 BILI T 0.4 mg/dL 05/21/2017 Comp Metabolic Vsr885 ALBUMIN 4.0 g/dL 05/21/2017 Comp Metabolic Unq242 TPRO 6.7 g/dL 05/21/2017 Comp Metabolic Mnq815 GLOB 2.7 g/dL 05/21/2017 Comp Metabolic Ghz088 A/G Ratio 1.5 Ratio 05/21/2017 Comp Metabolic Qwq053 Osmo 284 mOsmo 05/21/2017 Cbc With Differential [...] 28.9 pg 05/21/2017 Cbc With Differential Ord2 [place]% 5.5 % 05/21/2017 Cbc With Differential Ord2 [...] 2.65 K/ul 05/21/2017 Cbc With Differential Ord2 [place] ABS# 0.8 K/ul 05/21/2017 Cbc With Differential Ord2 Eos ABS# 0.1 K/ul 05/21/2017 Cbc With Differential Ord2 Baso ABS# 0.0 K/ul 05/21/2017 Estrogens Total 059598 ESTROGENS, TOTAL 54 pg/mL 05/24/2016 Magnesium Ord90 Mag 1.8 mg/dL 05/19/2016 Tsh Ord6 hTSH II 1.56 uIU/mL 05/19/2016 Progesterone Prog 0.03 ng/mL 05/19/2016 Comp Metabolic Sqv394 NA 136 mEq/L 05/19/2016 Comp Metabolic Aii743 K 4.3 mEq/L 05/19/2016 Comp Metabolic Gbs560 CL 100 mEq/L 05/19/2016 Comp Metabolic Okg853 CO2 28.0 mEq/L 05/19/2016 Comp Metabolic Vln285 ANION GAP 12 05/19/2016 Comp Metabolic Lrf379 GLUCOSE 138 mg/dL 05/19/2016 Comp Metabolic Rzu022 Creat 0.7 mg/dL 05/19/2016 Comp Metabolic Vag116 eGFR 89 ml/min/1.73m2 05/19/2016 Comp Metabolic Gew389 BUN 15 mg/dL 05/19/2016 Comp Metabolic Zqe561 B/C Ratio 20.5 Ratio 05/19/2016 Comp Metabolic Hwk465 CALCIUM 9.7 mg/dL 05/19/2016 Comp Metabolic Ncp397 ALK PHOS 106 U/L 05/19/2016 Comp Metabolic Kry201 AST(SGOT) 21 U/L 05/19/2016 Comp Metabolic Poj619 ALT(SGPT) 24 U/L 05/19/2016 Comp Metabolic Pud108 BILI T 0.4 mg/dL 05/19/2016 Comp Metabolic Vbd763 ALBUMIN 4.1 g/dL 05/19/2016 Comp Metabolic Qit071 TPRO 7.1 g/dL 05/19/2016 Comp Metabolic Aav210 GLOB 3.0 g/dL 05/19/2016 Comp Metabolic Vat764 A/G Ratio 1.4 Ratio 05/19/2016 Comp Metabolic Dcf161 Osmo 275 mOsmo 05/19/2016 Cbc With Differential [...] 28.5 pg 05/19/2016 Cbc With Differential Ord2 [place]% 6.5 % 05/19/2016 Cbc With Differential Ord2 [...] 2.33 K/ul 05/19/2016 Cbc With Differential Ord2 [place] ABS# 0.6 K/ul 05/19/2016 Cbc With Differential Ord2 Eos ABS# 0.1 K/ul 05/19/2016 Cbc With Differential Ord2 Baso ABS# 0.0 K/ul 05/19/2016 C RAP A SC [id number] Strep A Negative 02/28/2016 Tsh Ord6 hTSH [...] 26.2 pg 08/16/2015 Cbc With Differential Ord2 [place]% 7.1 % 08/16/2015 Cbc With Differential Ord2 [...] 2.32 K/ul 08/16/2015 Cbc With Differential Ord2 [place] ABS# 0.6 K/ul 08/16/2015 Cbc With Differential Ord2 Eos ABS# 0.1 K/ul 08/16/2015 Cbc With Differential Ord2 Baso ABS# 0.0 K/ul 08/16/2015 Cbc With Differential Ord2 New Analyzer Notice Please note new ref ranges starting 05-26-2015 due to implemntation of new five part differential hematolgy analyzer. 08/16/2015 Comp Metabolic Dlt178 NA 132 mEq/L 08/16/2015 Comp Metabolic Zwu133 K 3.6 mEq/L 08/16/2015 Comp Metabolic Eaa940 CL 99 mEq/L 08/16/2015 Comp Metabolic Cql756 CO2 23.0 mEq/L 08/16/2015 Comp Metabolic Eyv805 ANION GAP 14 08/16/2015 Comp Metabolic Ovs644 GLUCOSE 101 mg/dL 08/16/2015 Comp Metabolic Lqt206 Creat 0.7 mg/dL 08/16/2015 Comp Metabolic Xau084 eGFR 100 ml/min/1.73m2 08/16/2015 Comp Metabolic Gjl971 BUN 10 mg/dL 08/16/2015 Comp Metabolic Kog360 B/C Ratio 15.2 Ratio 08/16/2015 Comp Metabolic Iyg870 CALCIUM 9.3 mg/dL 08/16/2015 Comp Metabolic Dfe013 ALK PHOS 100 U/L 08/16/2015 Comp Metabolic Qsw979 AST(SGOT) 14 U/L 08/16/2015 Comp Metabolic Gdy906 ALT(SGPT) 11 U/L 08/16/2015 Comp Metabolic Two060 BILI T 0.3 mg/dL 08/16/2015 Comp Metabolic Zxh353 ALBUMIN 3.9 g/dL 08/16/2015 Comp Metabolic Emn444 TPRO 7.1 g/dL 08/16/2015 Comp Metabolic Dxi951 GLOB 3.2 g/dL 08/16/2015 Comp Metabolic Eau991 A/G Ratio 1.2 Ratio 08/16/2015 Comp Metabolic Iiw884 Osmo 264 mOsmo 08/16/2015 Lipid Ord30 CHOL 209 mg/dL 12/03/2014 Lipid Ord30 HDL 42.0 mg/dl 12/03/2014 Lipid Ord30 TRIG 219 mg/dL 12/03/2014 Lipid Ord30 LDL 123 mg/dL 12/03/2014 Lipid Ord30 C/HDL 5.0 Ratio 12/03/2014 Comp Metabolic Rbs024 NA 132 mEq/L 12/03/2014 Comp Metabolic Wwz106 K 4.0 mEq/L 12/03/2014 Comp Metabolic Ujh606 CL 101 mEq/L 12/03/2014 Comp Metabolic Ajr936 CO2 22.0 mEq/L 12/03/2014 Comp Metabolic Meu745 ANION GAP 13 12/03/2014 Comp Metabolic Zmg237 GLUCOSE 123 mg/dL 12/03/2014 Comp Metabolic Dwg916 Creat 0.7 mg/dL 12/03/2014 Comp Metabolic Wtr385 eGFR 97 ml/min/1.73m2 12/03/2014 Comp Metabolic Zfd255 BUN 10 mg/dL 12/03/2014 Comp Metabolic Gzu694 B/C Ratio 14.7 Ratio 12/03/2014 Comp Metabolic Bql623 CALCIUM 9.2 mg/dL 12/03/2014 Comp Metabolic Hmd740 ALK PHOS 88 U/L 12/03/2014 Comp Metabolic Ehh511 AST(SGOT) 18 U/L 12/03/2014 Comp Metabolic Pln349 ALT(SGPT) 17 U/L 12/03/2014 Comp Metabolic Uzn959 BILI T 0.5 mg/dL 12/03/2014 Comp Metabolic Xep727 ALBUMIN 3.9 g/dL 12/03/2014 Comp Metabolic Zix291 TPRO 6.8 g/dL 12/03/2014 Comp Metabolic Mpp901 GLOB 2.9 g/dL 12/03/2014 Comp Metabolic Lrg302 A/G Ratio 1.3 Ratio 12/03/2014 Comp Metabolic Wma326 Osmo 265 mOsmo 12/03/2014 Tsh Ord6 hTSH II 1.13 uIU/mL 12/03/2014 D-Dimer D-DIMER 168 NG/ML 12/03/2014 D-Dimer [id number] COMMENT 12/03/2014 Cbc With Differential Ord2 WBC [...] Procedure Codes Date THER/PROPH/DIAG INJ SC/IM CPT-4: 19214 07/17/2018 TRIAMCINOLONE ACET INJ NOS CPT-4: J3301 07/17/2018 THER/PROPH/DIAG INJ SC/IM CPT-4: 21144 06/27/2017 ROCEPHIN, PER 250 MG CPT- 4: J0696 06/27/2017 IMMUNIZATION ADMIN CPT- 4: 33545 03/16/2017 FLU VAC NO PRSV 4 FLETCHER 3 YRS+ CPT-4: 50675 03/16/2017 Pneumococcal Polysaccharide Vaccine, 23-Valent, Ad CPT-4: 18194 03/16/2017 IMMUNIZATION ADMIN EACH ADD CPT-4: 56615 03/16/2017 TRIAMCINOLONE ACET INJ NOS CPT-4: J3301 01/11/2017 TRIAMCINOLONE ACET INJ NOS CPT-4: J3301 02/28/2016 Vital Signs Date Vital 08/26/2018 Blood Pressure 1: 126/72 Code: 8480-6 Heart Rate 1: 68 bpm Height: 5'6" SpO2: 94% Weight: 08/12/2018 Blood Pressure 1: 124/68 Code: 8480-6 BMI: 38.4 Code: 22142-1 Heart Rate 1: 79 bpm Height: 5'6" SpO2: 94% Weight: 238 lbs 07/17/2018 Blood Pressure 1: 126/72 Code: 8480-6 BMI: 38.6 Code: 86530-9 Heart Rate 1: 85 bpm Height: 5'6" SpO2: 95% Temperature: 36.9 (C) / 98.4 (F) Weight: 239 lbs 07/04/2018 Blood Pressure 1: 132/76 Code: 8480-6 Heart Rate 1: 80 bpm Height: SpO2: 97% Weight: 06/19/2018 Blood Pressure 1: 124/74 Code: 8480-6 BMI: 38.6 Code: 45698-7 Heart Rate 1: 85 bpm Height: 5'6" SpO2: 95% Weight: 239 lbs 04/24/2018 Blood Pressure 1: 128/74 Code: 8480-6 BMI: 37.8 Code: 30205-4 Heart Rate 1: 107 bpm Height: 5'6" SpO2: 98% Weight: 234 lbs 04/17/2018 Blood Pressure 1: 120/64 Code: 8480-6 BMI: 37.8 Code: 38777-2 Heart Rate 1: 84 bpm Height: 5'6" SpO2: 96% Weight: 234 lbs 03/14/2018 Blood Pressure 1: 140/82 Code: 8480-6 BMI: 37.8 Code: 94700-7 Heart Rate 1: 85 bpm Height: 5'6" SpO2: 98% Weight: 234 lbs 02/27/2018 Blood Pressure 1: 142/68 Code: 8480-6 BMI: 36.5 Code: 29973-9 Heart Rate 1: 84 bpm Height: 5'6" SpO2: 97% Weight: 226 lbs 12/19/2017 Blood Pressure 1: 130/86 Code: 8480-6 BMI: 35.7 Code: 57003-9 Heart Rate 1: 94 bpm Height: 5'6" Weight: 221 lbs 12/04/2017 Blood Pressure 1: 138/78 Code: 8480-6 BMI: 36.6 Code: 44626-6 Heart Rate 1: 94 bpm Height: 5'6" SpO2: 98% Weight: 227 lbs 11/20/2017 Weight: 233 lbs 09/10/2017 Blood Pressure 1: 132/86 Code: 8480-6 Heart Rate 1: 86 bpm Height: Weight: 08/14/2017 Blood Pressure 1: 120/74 Code: 8480-6 BMI: 33.9 Code: 34853-3 Heart Rate 1: 92 bpm Height: 5'6" SpO2: 94% Weight: 210 lbs 07/31/2017 Blood Pressure 1: 140/80 Code: 8480-6 BMI: 33.9 Code: 38089-6 Heart Rate 1: 96 bpm Height: 5'6" SpO2: 97% Weight: 210 lbs 06/27/2017 Blood Pressure 1: 128/80 Code: 8480-6 BMI: 33.9 Code: 65285-2 Heart Rate 1: 85 bpm Height: 5'6" [...] 1: 126/74 Code: 8480-6 BMI: 39.9 Code: 97587-9 Heart Rate 1: 79 bpm Height: 5'6" SpO2: 97% Weight: 247 lbs 01/26/2017 Blood Pressure 1: 132/74 Code: 8480-6 BMI: 37.8 Code: 82107-9 Heart Rate 1: 74 bpm Height: 5'6" SpO2: 97% Weight: 234 lbs 01/11/2017 Blood Pressure 1: 118/68 Code: 8480-6 BMI: 38.7 Code: 90729-1 Heart Rate 1: 91 bpm Height: 5'6" SpO2: 96% Weight: 240 lbs 11/30/2016 Blood Pressure 1: 132/76 Code: 8480-6 BMI: 38.3 Code: 56610-0 Heart Rate 1: 71 bpm Height: 5'6" SpO2: 92% Weight: 237 lbs 09/28/2016 Blood Pressure 1: 122/72 Code: 8480-6 BMI: 39.1 Code: 53195-9 Heart Rate 1: 88 bpm Height: 5'6" SpO2: 94% Weight: 242 lbs 08/24/2016 Blood Pressure 1: 130/87 Code: 8480-6 BMI: 41.5 Code: 80573-5 Heart Rate 1: 95 bpm Height: 5'6" Respiratory Rate: 16 bpm SpO2: 98% Temperature: 36.9 (C) / 98.5 (F) Weight: 257 lbs 07/13/2016 Blood Pressure 1: 132/84 Code: 8480-6 BMI: 42.0 Code: 79414-5 Heart Rate 1: 73 bpm Height: 5'6" SpO2: 97% Weight: 260 lbs 05/19/2016 Blood Pressure 1: 138/76 Code: 8480-6 BMI: 40.8 Code: 49912-5 Heart Rate 1: 80 bpm Height: 5'6" SpO2: 98% Weight: 253 lbs 03/16/2016 Blood Pressure 1: 122/70 Code: 8480-6 BMI: 40.4 Code: 25429-2 Heart Rate 1: 72 bpm Height: 5'6" SpO2: 98% Weight: 250 lbs 02/28/2016 Blood Pressure 1: 136/86 Code: 8480-6 BMI: 40.2 Code: 70383-9 Heart Rate 1: 87 bpm Height: 5'6" SpO2: 96% Temperature: 36.3 (C) / 97.3 (F) Weight: 249 lbs 01/13/2016 Blood Pressure 1: 120/76 Code: 8480-6 BMI: 40.4 Code: 29079-1 Heart Rate 1: 68 bpm Height: 5'6" SpO2: 97% Weight: 250 lbs 09/27/2015 Blood Pressure 1: 112/70 Code: 8480-6 BMI: 38.4 Code: 45523-4 Heart Rate 1: 76 bpm Height: 5'6" SpO2: 98% Weight: 238 lbs 08/30/2015 Blood Pressure 1: 144/82 Code: 8480-6 BMI: 39.5 Code: 96859-4 Heart Rate 1: 82 bpm Height: 5'6" SpO2: 97% Weight: 245 lbs 08/16/2015 Blood Pressure 1: 140/72 Code: 8480-6 BMI: 38.9 Code: 44123-8 Heart Rate 1: 72 bpm Height: 5'6" SpO2: 97% Weight: 241 lbs 07/15/2015 Blood Pressure 1: 128/80 Code: 8480-6 BMI: 39.3 Code: 67912-1 Heart Rate 1: 86 bpm Height: 5'6" SpO2: 98% Weight: 243 lbs 8 oz 06/16/2015 Blood Pressure 1: 146/86 Code: 8480-6 BMI: 39.6 Code: 25556-0 Heart Rate 1: 76 bpm Height: 5'6" SpO2: 97% Weight: 245 lbs 8 oz 04/02/2015 Blood Pressure 1: 132/86 Code: 8480-6 BMI: 40.7 Code: 93593-0 Heart Rate 1: 94 bpm Height: 5'6" SpO2: 98% Weight: 252 lbs 12/02/2014 Blood Pressure 1: 122/90 Code: 8480-6 BMI: 41.6 Code: 35240-7 Heart Rate 1: 77 bpm Height: 5'6" [...] mellitus with hyperglycemia[ICD10: E11.65] Petra Trejo MD, [facility] CPT-4: 66276 08/26/2018 22191 EST. PATIENT, LEVEL III Diagnosis: Type 2 diabetes mellitus without complications[ICD10: E11.9] Petra Trejo MD, [facility] CPT-4: 69279 08/12/2018 90615 EST. PATIENT, LEVEL III Diagnosis: Acute laryngopharyngitis[ICD10: J06.0] Diagnosis: Cough[ICD10: R05] Diagnosis: Other allergic rhinitis[ICD10: J30.89] Diagnosis: Right upper quadrant pain[ICD10: R10.11] Petra Trejo MD, [facility] CPT-4: 15538 07/17/2018 94375 EST. PATIENT, LEVEL III Diagnosis: Generalized anxiety disorder[ICD10: F41.1] Diagnosis: Major depressive disorder, single episode, moderate[ICD10: F32.1] Petra Trejo MD, [facility] CPT-4: 43144 07/04/2018 54940 EST. PATIENT, LEVEL IV Diagnosis: Generalized anxiety disorder[ICD10: F41.1] Diagnosis: Major depressive disorder, single episode, moderate[ICD10: F32.1] Diagnosis: Other insomnia[ICD10: G47.09] Petra Trejo MD, [facility] CPT-4: 79881 06/19/2018 01096 EST. PATIENT, LEVEL IV Diagnosis: Right upper quadrant pain[ICD10: R10.11] Diagnosis: Other chest pain[ICD10: R07.89] Petra Trejo MD, [facility] CPT-4: 00658 04/24/2018 05143 EST. PATIENT, LEVEL III Diagnosis: Generalized anxiety disorder[ICD10: F41.1] Diagnosis: Major depressive disorder, recurrent, mild[ICD10: F33.0] Diagnosis: Essential (primary) hypertension[ICD10: I10] Diagnosis: Type 2 diabetes mellitus without complications[ICD10: E11.9] Petra Trejo MD, [facility] CPT-4: 92154 04/17/2018 39800 EST. PATIENT, LEVEL III Diagnosis: Localized edema[ICD10: R60.0] Diagnosis: Essential (primary) hypertension[ICD10: I10] Petra Trejo MD, [facility] CPT-4: 47133 03/14/2018 09758 EST. PATIENT, LEVEL III Diagnosis: Pain in left knee[ICD10: M25.562] Diagnosis: Other obesity due to excess calories[ICD10: E66.09] Diagnosis: Other insomnia[ICD10: G47.09] Diagnosis: Generalized anxiety disorder[ICD10: F41.1] Petra Trejo MD, [facility] CPT-4: 62106 02/27/2018 ([id number]) Miscellaneous no charge Diagnosis: Other obesity due to excess calories[ICD10: E66.09] Heidy Trejo MD, [facility] CPT-4: 60823 12/19/2017 45562 EST. PATIENT, LEVEL III Diagnosis: Pain in right foot[ICD10: M79.671] Diagnosis: Pain in right ankle and joints of right foot[ICD10: M25.571] Petra Trejo MD, [facility] CPT-4: 93894 12/04/2017 78111 EST. PATIENT, LEVEL III Diagnosis: Pain in left knee[ICD10: M25.562] Diagnosis: Type 2 diabetes mellitus without complications[ICD10: E11.9] Diagnosis: Other obesity due to excess calories[ICD10: E66.09] Petra Trejo MD, [facility] CPT-4: 21481 11/20/2017 30208 EST. PATIENT, LEVEL III Diagnosis: Pain in left knee[ICD10: M25.562] Petra Trejo MD, [facility] CPT-4: 00580 09/10/2017 27421 EST. PATIENT, LEVEL III Diagnosis: Encounter for follow-up examination after completed treatment for conditions other than malignant neoplasm[ICD10: Z09] Diagnosis: Pain in left knee[ICD10: M25.562] Petra Trejo MD, [facility] CPT-4: 79273 08/14/2017 84578 EST. PATIENT, LEVEL III Diagnosis: Pain in left knee[ICD10: M25.562] Petra Trejo MD, [facility] CPT-4: 66437 07/31/2017 30291 EST. PATIENT, LEVEL III Diagnosis: Acute laryngopharyngitis[ICD10: J06.0] Diagnosis: Other allergic rhinitis[ICD10: J30.89] Petra Trejo MD, [facility] CPT- 4: 96935 06/27/2017 34304 EST. PATIENT, LEVEL III Diagnosis: Ganglion, left hand[ICD10: M67.442] Diagnosis: Essential (primary) hypertension[ICD10: I10] Diagnosis: Generalized anxiety disorder[ICD10: F41.1] Diagnosis: Other insomnia[ICD10: G47.09] Petra Trejo MD, [facility] CPT-4: 52053 05/29/2017 28273 EST. PATIENT, LEVEL III Diagnosis: Essential (primary) hypertension[ICD10: I10] Diagnosis: Palpitations[ICD10: R00.2] Diagnosis: Generalized anxiety disorder[ICD10: F41.1] Petra Trejo MD, [facility] CPT-4: 78951 05/21/2017 01472 EST. PATIENT, LEVEL III Diagnosis: Pain in right foot[ICD10: M79.671] Petra Trejo MD, [facility] CPT-4: 39794 04/20/2017 92413 EST. PATIENT, LEVEL IV Diagnosis: Other insomnia[ICD10: G47.09] Diagnosis: Other skin changes[ICD10: R23.8] Petra Trejo MD, [facility] CPT-4: 21980 01/26/2017 56588 EST. PATIENT, LEVEL IV Diagnosis: Acute bronchitis due to other specified organisms[ICD10: J20.8] Petra Trejo MD, [facility] CPT-4: 62162 01/11/2017 ([id number]) 44969 EST. PATIENT, LEVEL IV Diagnosis: Essential (primary) hypertension[ICD10: I10] Diagnosis: Other insomnia[ICD10: G47.09] Diagnosis: Primary generalized (osteo)arthritis[ICD10: M15.0] Diagnosis: Other obesity due to excess calories[ICD10: E66.09] Claudette Trejo MD, [facility] CPT-4: 88320 11/30/2016 ([id number]) 52015 EST. PATIENT, LEVEL III Diagnosis: Other obesity due to excess calories[ICD10: E66.09] Diagnosis: Other insomnia[ICD10: G47.09] Diagnosis: Generalized anxiety disorder[ICD10: F41.1] Claudette Trejo MD, [facility] CPT-4: 52552 09/28/2016 ([id number]) 20771 EST. PATIENT, LEVEL IV Diagnosis: Generalized anxiety disorder[ICD10: F41.1] Diagnosis: Major depressive disorder, recurrent, mild[ICD10: F33.0] Diagnosis: Other obesity due to excess calories[ICD10: E66.09] Diagnosis: Other insomnia[ICD10: G47.09] Claudette Trejo MD, [facility] CPT-4: 22218 08/24/2016 ([id number]) 59707 EST. PATIENT, LEVEL III Diagnosis: Other obesity due to excess calories[ICD10: E66.09] Diagnosis: Major depressive disorder, recurrent, moderate[ICD10: F33.1] Diagnosis: Low back pain[ICD10: M54.5] [facility] CPT-4: 44187 07/13/2016 53396 EST. PATIENT, LEVEL IV Diagnosis: Other muscle spasm[ICD10: M62.838] Diagnosis: Generalized anxiety disorder[ICD10: F41.1] Diagnosis: Major depressive disorder, recurrent, moderate[ICD10: F33.1] Diagnosis: Other insomnia[ICD10: G47.09] Petra Trejo MD, [facility] CPT-4: 99952 05/19/2016 ([id number]) 09211 EST. PATIENT, LEVEL III Diagnosis: Generalized anxiety disorder[ICD10: F41.1] Diagnosis: Major depressive disorder, recurrent, moderate[ICD10: F33.1] Heidy Trejo MD, [facility] CPT-4: 58357 03/16/2016 ([id number]) 02755 EST. PATIENT, LEVEL III Diagnosis: Streptococcal pharyngitis[ICD10: J02.0] Claudette Trejo MD, [facility] CPT-4: 91008 02/28/2016 ([id number]) 43846 EST. PATIENT, LEVEL III Diagnosis: Generalized anxiety disorder[ICD10: F41.1] Diagnosis: Other obesity due to excess calories[ICD10: E66.09] Heidy Trejo MD, [facility] CPT-4: 99143 01/13/2016 ([id number]) 30437 EST. PATIENT, LEVEL III Diagnosis: Generalized anxiety disorder[ICD10: F41.1] Diagnosis: Major depressive disorder, recurrent, unspecified[ICD10: F33.9] Heidy Trejo MD, [facility] CPT-4: 99216 09/27/2015 81304 EST. PATIENT, LEVEL IV Diagnosis: Chronic pain syndrome[ICD10: G89.4] Diagnosis: Other obesity due to excess calories[ICD10: E66.09] Diagnosis: Essential (primary) hypertension[ICD10: I10] Diagnosis: Generalized anxiety disorder[ICD10: F41.1] Diagnosis: Excessive and frequent menstruation with regular cycle[ICD10: N92.0] Diagnosis: Pain in right knee[ICD10: M25.561] Petra Trejo MD, [facility] CPT-4: 17686 08/30/2015 54214 EST. PATIENT, LEVEL IV Diagnosis: Palpitations[ICD10: R00.2] Diagnosis: Other obesity due to excess calories[ICD10: E66.09] Petra Trejo MD, [facility] CPT-4: 32431 08/16/2015 ([id number]) 98507 EST. PATIENT, LEVEL IV Diagnosis: Pain in right knee[ICD10: M25.561] Diagnosis: Primary generalized (osteo)arthritis[ICD10: M15.0] Diagnosis: Acute maxillary sinusitis, unspecified[ICD10: J01.00] Heidy Trejo MD, [facility] CPT-4: 49659 07/15/2015 ([id number]) 37851 EST. PATIENT, LEVEL IV Diagnosis: Primary generalized (osteo)arthritis[ICD10: M15.0] Diagnosis: Restless legs syndrome[ICD10: G25.81] Diagnosis: Chronic pain syndrome[ICD10: G89.4] Heidy Trejo MD, [facility] CPT- 4: 29756 06/16/2015 ([id number]) 44632 EST. PATIENT, LEVEL III Diagnosis: Primary generalized (osteo)arthritis[ICD10: M15.0] Diagnosis: Varicose veins of bilateral lower extremities with pain[ICD10: I83.813] Claudette Trejo MD, [facility] CPT-4: 39744 04/02/2015 (95391) OFFICE VISIT, NEW - LEVEL 3 Diagnosis: Osteoarthritis[ICD9: 715.90] Diagnosis: ABNORMAL WEIGHT GAIN[ICD9: 783.1] Diagnosis: Superficial thrombophlebitis[ICD9: 451.9] Carey Trejo MD, [facility] CPT-4: 49147 12/02/2014 Plan of Care Planned Activity Notes [...] glucose control. 08/26/2018 Appointment: Petra Rivas WPtel: [address] [place], [place] [address] (30 min) [facility] 08/26/2018 Patient Education: Patient Medication [...] [facility] [phone] [facility] (30 min) Complex 08/12/2018 Patient Education: [...] [facility]el[facility] [address] [facility] [address] (30 min) Complex 07/17/2018 Patient Education: [...] current medications. 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 04/17/2018 Appointment: Petra Rivas WPtel: [phone] [facility] (15 min) Moderate 04/17/2018 Patient Education: [...] edema. 03/14/2018 Appointment: Petra Rivas WPtel: [phone] [facility] [address] (15 min) Moderate 03/14/2018 Patient Education: [...] ortho 02/27/2018 Appointment: Petra Rivas WPtel: [phone] [facility] [address] [place] (30 min) Complex 02/27/2018 Patient [...] improve. 12/04/2017 Appointment: Petra Rivas WPtel: [phone] [facility] [address] [place] (15 min) Moderate 12/04/2017 Patient [...] control. 11/20/2017 Appointment: Petra Rivas WPtel: [facility] [address] [place] (15 min) Moderate 11/20/2017 Patient [...] not improve. 09/10/2017 Appointment: Petra Rivas WPtel: [address] [place], [place] [address] [place] (15 min) Moderate 09/10/2017 Patient Education: [...] improve. 08/14/2017 Appointment: Petra Rivas WPtel: [facility] [place] (30 min) Complex 08/14/2017 Patient Education: Patient Medication Summary Completed 08/14/2017 Appointment: Petra Rivas WPtel: [address] [place] [address] [place] (15 min) Moderate 08/01/2017 Visit Plan: Knee pain - pt is to use RICE - Rest, Ice, Compression, Elevation - pt is to use crutches as directed - The pt is to use prn antiinflammatories to manage acute pain. The patient is to call the office if the pain is worsening or does not improve. 07/31/2017 Appointment: Petra Rivas WPtel: [address] [place], [place] [address] [place] (30 min) Complex 07/31/2017 Patient Education: Patient Medication Summary Completed 07/31/2017 Care Plan: X-RAY EXAM OF KNEE 3 LOINC : 68746-6 Pending 07/31/2017 Visit Plan: URI - Pt [...] 06/27/2017 Appointment: Petra Rivas WPtel: [phone] [facility] (15 min) Moderate 06/27/2017 Patient Education: [...] [facility]el[facility] [phone] [facility] [address] (15 min) Moderate 05/29/2017 Patient Education: Patient Medication Summary Completed 05/29/2017 Care Plan: Referral Order SNOMED-CT : [id number] Pending 05/29/2017 Appointment: Petra Rivas WPtel: [facility] (15 min) Moderate 05/28/2017 Visit Plan: [...] concerns. 05/21/2017 Appointment: Petra Rivas WPtel: [facility] (15 min) Moderate 05/21/2017 Patient Education: Patient Medication Summary Completed 05/21/2017 Visit Plan: Right heel pain - will send RX, pt is to do stretches as directed - The pt is to use prn antiinflammatories to manage acute pain. The patient is to call the office if the pain is worsening or does not improve. 04/20/2017 Appointment: Petra Rivas WPtel: [facility] [place] (30 min) Complex 04/20/2017 Patient Education: Patient Medication Summary Completed 04/20/2017 Appointment: Petra Rivas WPtel: [phone] [facility] [address] (30 min) Complex 03/29/2017 Patient Education: Patient Medication Summary Completed 03/16/2017 Referral: Maycol Quijano Referral Initiated 02/08/2017 Care Plan: Referral Order SNOMED-CT : [id number] Pending 01/28/2017 Visit Plan: Insomnia - Pt [...] questions, or concerns. 01/26/2017 Appointment: Petra Rivas: [facility]5 [facility] (30 min) Complex 01/26/2017 Patient Education: [...] worsen. 01/11/2017 Appointment: Petra Rivasl: [phone] [facility] (15 min) Moderate 01/11/2017 Patient Education: [...] instructed on use. 11/30/2016 Appointment: Claudette Savagel: [facility]5 [phone] (15 min) Moderate 11/30/2016 Patient Education: Patient Medication Summary Completed 11/30/2016 Patient Education: Obesity Completed 11/30/2016 Care Plan: BMI Above normal followup SELF-MGMT EDUC & TRAIN 1 PT Pending 11/30/2016 Visit Plan: Aruaydt-gguzvvqnxk-dkdabuzq with increase in cymbalta- no changes Insomnia-RX for belsomra provided and instructed on use Obesity- patient down 15#-no changes-continue diet/exercise-follow up in 2 months 09/28/2016 Appointment: Claudette Savage WPtel: [facility]5 [phone] (15 min) Moderate 09/28/2016 Patient Education: Patient Medication Summary Completed 09/28/2016 Patient Education: Obesity Completed 09/28/2016 Care Plan: BMI Above normal followup SELF-MGMT EDUC & TRAIN 1 PT Pending 09/28/2016 Visit Plan: Qezxope-wtwmtwksfi-fgvrzdtv-increase cymbalta to 60mg daily. Increase xanax as [...] for insomnia/anxiety 08/24/2016 Appointment: Claudette Savage WPtel: [facility]5 [phone] (15 min) Moderate 08/24/2016 Patient Education: [...] not improving. 07/13/2016 Appointment: Heidy Trejo WPtel: [facility]5 [facility] (15 min) Moderate 07/13/2016 Patient Education: Patient [...] WPtel: [phone] [facility] [address] (30 min) Complex 05/19/2016 Patient Education: [...] this patient. 03/16/2016 [facility]ment[phone] ([facility] min) Moderate 03/16/2016 Patient Education: [...] swab. 02/28/2016 Appointment: Claudette Savage WPtel: [phone] [phone] (10 min) Simple 02/28/2016 Patient Education: [...] stop lexapro 01/13/2016 Appointment: [phone] (15 min) Moderate 01/13/2016 Patient Education: [...] 09/27/2015 Care Plan: Referral Order SNOMED-CT : [id number] Pending 08/31/2015 Visit Plan: Anxiety - the [...] symptoms. 07/15/2015 Appointment: Heidy Trejo WPtel: [facility] (15 min) Moderate 07/15/2015 Patient Education: [...] getting treatment at vein clinic 04/02/2015 Appointment: Clauedtte Savage WPtel: [phone] [place] (15 min) Moderate 04/02/2015 Patient [...] Completed 12/02/2014 Referral: Belle Hoffman WPtel: [phone] [facility] they will call and set the appt with her Initiated Referral: Maycol Quijano Referral Initiated Referral: Belle Hoffman WPtel: [phone] [facility] Referral Initiated Referral: Jignesh Quinn [place] [...] 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 Anxiety and Depression- the patient has [...] 1 mg at night for anxiety . Veuiswv-vkthmbsvxi-xacfghhm-increase cymbalta to 60mg daily. Increase xanax as [...] to allow for greater blood glucose control. [employer] website contrave 1 pill nightly x 1 [...] appropriately prescribed for this patient. BELSOMRA . Whrpdhx-jozvkurrau-mlnchkre with increase in cymbalta-no changes Insomnia-RX for [...]
--- OUTSIDE RECORDS SUMMARY | 2018-10-14 13:11 | XMS REPORT | CCD ---
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 Name Role Phone PP Unavailable CCM Unavailable Summary Purpose Interface Exchange Insurance Providers Payer name Policy type / Coverage type Covered republican ID Effective Begin Date Effective End Date [facility] Commercial Insurance [id number] Unknown Family history Brother Diagnosis Age At [...] Description Effective Dates Tobacco history SNOMED CT: 4779628 Quit less than 5 years ago 04/02/2015 Alcohol history Unknown occasionally drinks alcohol 04/02/2015 Marital status Unknown Manuel Vitale 12/02/2014 Number of children Unknown 3 12/02/2014 Allergies, Adverse Reactions, Alerts Substance Reaction Codes Entered Date Inactivated Date Status * NO KNOWN FOOD ALLERGIES Unknown 12/02/2014 No Inactive Date Active Penicillin Unknown 12/02/2014 No Inactive Date Active tramadol RxNorm: 46947 12/02/2014 No Inactive Date Active Past Medical [...] (18 mg/3 mL) subcutaneous pen injector RxNorm: 2527450 1.8 Milligram(s) SQ daily 08/28/2018 12/25/2018 Active disp qty sufficient Saxenda 3 mg/0.5 mL (18 mg/3 mL) subcutaneous pen injector RxNorm: 0408198 1.8 Milliliter(s) SQ daily 08/27/2018 08/27/2018 Inactive disp qty sufficient Xanax 1 mg tablet RxNorm: 412082 1-2 Tablet(s) PO QHS as needed insomnia 08/26/2018 11/23/2018 Active metformin 500 mg tablet RxNorm: 429575 1 Tablet(s) PO BID 08/26/2018 12/23/2018 Active Keflex 500 mg capsule RxNorm: 411563 1 Capsule(s) PO TID 08/26/2018 09/01/2018 Active Protonix 40 mg tablet,delayed release RxNorm: 778133 1 TABLET(S) PO DAILY 08/12/2018 12/09/2018 Active metformin 500 mg tablet RxNorm: 944562 1 Tablet(s) PO daily 08/12/2018 08/25/2018 Inactive Lasix 20 mg tablet RxNorm: 464988 1 TABLET(S) PO DAILY NEEDED EDEMA 08/06/2018 10/04/2018 Active potassium chloride ER 10 mEq tablet,extended release RxNorm: 242101 1 TABLET(S) PO DAILY NEEDED TO TAKE WHEN YOU TAKE THE LASIX 08/06/2018 10/04/2018 Active Zorvolex 35 mg capsule RxNorm: 7246456 TAKE 1 CAPSULE BY MOUTH THREE (3) TIMES DAILY 08/02/2018 11/29/2018 Active prednisone 20 mg tablet RxNorm: 159154 Tablet(s) PO 07/17/2018 No Stop Date Active 20mg tonight then starting tomorrow: 60,60,40,40,20,20,10,10 Remeron 15 mg tablet RxNorm: 518024 1/2 Tablet(s) PO QHS 07/17/2018 2019 Active Tamiflu 75 mg capsule RxNorm: 677595 1 Capsule(s) PO BID 07/17/2018 07/21/2018 Inactive Kenalog 40 mg/mL suspension for injection RxNorm: 5186902 Milliliter(s) Inj 07/17/2018 07/17/2018 Inactive Lexapro 20 mg tablet RxNorm: 295811 1 TABLET(S) PO DAILY 07/15/2018 11/11/2018 Active potassium chloride ER 10 mEq tablet,extended release RxNorm: 402980 1 Tablet(s) PO daily as needed to take when you take the lasix 07/04/2018 08/02/2018 Inactive Lasix 20 mg tablet RxNorm: 924390 1 Tablet(s) PO daily as needed edema 07/04/2018 08/02/2018 Inactive Cymbalta 30 mg capsule,delayed release RxNorm: 046028 1 CAPSULE(S) PO DAILY TO BE TAKEN WITH 60MG TO=90MG 07/01/2018 07/14/2018 Inactive hydrochlorothiazide 25 mg tablet RxNorm: 775309 1 TABLET(S) PO DAILY 06/27/2018 09/24/2018 Active Remeron 15 mg tablet RxNorm: 427990 1/2 Tablet(s) PO QHS 06/20/2018 07/16/2018 Inactive Lasix 20 mg tablet RxNorm: 212584 1 Tablet(s) PO daily 06/19/2018 06/21/2018 Inactive potassium chloride ER 10 mEq tablet,extended release RxNorm: 327636 1 Tablet(s) PO daily 06/19/2018 07/03/2018 Inactive Lexapro 20 mg tablet RxNorm: 798146 1 Tablet(s) PO daily 06/19/2018 07/14/2018 Inactive gabapentin 300 mg capsule RxNorm: 167938 1 CAPSULE(S) PO TID 06/14/2018 08/12/2018 Inactive Ambien 10 mg tablet RxNorm: 451841 1 Tablet(s) PO QHS as needed insomnia 06/10/2018 09/07/2018 Active Cymbalta 30 mg capsule,delayed release RxNorm: 765527 1 Capsule(s) PO daily 06/03/2018 06/02/2018 Inactive Cymbalta 30 mg capsule,delayed release RxNorm: 699039 1 Capsule(s) PO daily to be taken with 60mg to=90mg 06/03/2018 06/30/2018 Inactive Protonix 40 mg tablet,delayed release RxNorm: 791394 1 TABLET(S) PO DAILY 05/20/2018 08/11/2018 Inactive gabapentin 300 mg capsule RxNorm: 945820 1 CAPSULE(S) PO TID 05/15/2018 06/13/2018 Inactive Protonix 40 mg tablet,delayed release RxNorm: 288607 1 Tablet(s) PO daily 04/24/2018 05/19/2018 Inactive Zorvolex 35 mg capsule RxNorm: 0438624 TAKE 1 CAPSULE BY MOUTH THREE (3) TIMES DAILY 04/22/2018 08/01/2018 Inactive hydrochlorothiazide 25 mg tablet RxNorm: 493464 1 TABLET(S) PO DAILY 04/08/2018 06/26/2018 Inactive Zorvolex 35 mg capsule RxNorm: 3289903 TAKE 1 CAPSULE BY MOUTH THREE (3) TIMES DAILY 03/27/2018 04/21/2018 Inactive gabapentin 300 mg capsule RxNorm: 121187 1 CAPSULE(S) PO TID 03/25/2018 04/14/2018 Inactive hydrochlorothiazide 25 mg tablet RxNorm: 668466 1 Tablet(s) PO daily 03/14/2018 04/07/2018 Inactive Victoza 2-Marek 0.6 mg/0.1 mL (18 mg/3 mL) subcutaneous pen injector RxNorm: 514478 Milligram(s) INJECT 1.8 MG SUB-Q ONCE DAILY 02/27/2018 08/20/2019 Active qty sufficient atorvastatin 20 mg tablet RxNorm: 852901 1 Tablet(s) PO daily 02/27/2018 05/22/2019 Active Cymbalta 60 mg capsule,delayed release RxNorm: 984807 TAKE 1 CAPSULE BY MOUTH DAILY 02/27/2018 02/26/2018 Inactive Cymbalta 60 mg capsule,delayed release RxNorm: 596080 1 Capsule(s) PO daily TAKE 1 CAPSULE BY MOUTH DAILY 02/27/2018 07/14/2018 Inactive gabapentin 300 mg capsule RxNorm: 147020 1 Capsule(s) PO TID 02/27/2018 03/24/2018 Inactive Xanax 1 mg tablet RxNorm: 824700 1-2 Tablet(s) PO QHS as needed insomnia 02/27/2018 05/27/2018 Inactive meloxicam 7.5 mg tablet RxNorm: 706311 1 Tablet(s) PO daily 1 TABLET(S) PO DAILY 02/27/2018 04/14/2018 Inactive Ambien 10 mg tablet RxNorm: 807794 1 Tablet(s) PO QHS as needed insomnia 02/27/2018 05/25/2018 Inactive atorvastatin 20 mg tablet RxNorm: 319933 1 Tablet(s) PO daily 02/05/2018 02/26/2018 Inactive atorvastatin 20 mg tablet RxNorm: 737917 1 Tablet(s) PO daily 02/05/2018 02/04/2018 Inactive meloxicam 7.5 mg tablet RxNorm: 507784 1 TABLET(S) PO DAILY 02/01/2018 02/26/2018 Inactive oxycodone 15 mg tablet RxNorm: 7245662 1 Tablet(s) PO QID as needed 01/07/2018 02/19/2018 Inactive lactulose 20 gram/30 mL oral solution RxNorm: 934661 15-30 Milliliter(s) PO BID as needed 12/31/2017 02/20/2018 Inactive meloxicam 7.5 mg tablet RxNorm: 324154 1 TABLET(S) PO DAILY 12/13/2017 01/31/2018 Inactive Zorvolex 35 mg capsule RxNorm: 2351380 1 Capsule(s) PO TID 12/13/2017 02/20/2018 Inactive Ambien 10 mg tablet RxNorm: 916959 1 Tablet(s) PO QHS as needed insomnia 12/04/2017 02/26/2018 Inactive oxycodone 15 mg tablet RxNorm: 2057146 1 Tablet(s) PO QID as needed 12/04/2017 01/06/2018 Inactive prednisone 20 mg tablet RxNorm: 786206 2 Tablet(s) PO daily 12/04/2017 12/08/2017 Inactive Victoza 2-Marek 0.6 mg/0.1 mL (18 mg/3 mL) subcutaneous pen injector RxNorm: 360804 Milligram(s) INJECT 1.8 MG SUB-Q ONCE DAILY 11/20/2017 02/26/2018 Inactive meloxicam 7.5 mg tablet RxNorm: 793009 1 Tablet(s) PO daily 11/20/2017 12/12/2017 Inactive phentermine 37.5 mg tablet RxNorm: 362144 1 Tablet(s) PO daily 11/20/2017 12/19/2017 Inactive Ambien 10 mg tablet RxNorm: 491752 1 Tablet(s) PO QHS as needed insomnia 11/20/2017 12/18/2017 Inactive Xanax 1 mg tablet RxNorm: 045191 1.5 Tablet(s) PO QHS as needed insomnia 11/20/2017 02/26/2018 Inactive hydrocodone 7.5 mg-acetaminophen 325 mg tablet RxNorm: 073097 1 Tablet(s) PO TID as needed 11/16/2017 01/06/2018 Inactive Cymbalta 60 mg capsule,delayed release RxNorm: 267617 TAKE 1 CAPSULE BY MOUTH DAILY 11/02/2017 02/26/2018 Inactive Xanax 1 mg tablet RxNorm: 487959 1 Tablet(s) PO BID PRN as needed anxiety 10/04/2017 11/19/2017 Inactive Victoza 2-Marek 0.6 mg/0.1 mL (18 mg/3 mL) subcutaneous pen injector RxNorm: 351550 INJECT 1.8 MG SUB-Q ONCE DAILY 10/04/2017 11/19/2017 Inactive hydrocodone 7.5 mg-acetaminophen 325 mg tablet RxNorm: 395009 1 Tablet(s) PO TID as needed 09/17/2017 11/15/2017 Inactive hydrocodone 7.5 mg-acetaminophen 325 mg tablet RxNorm: 079908 1 Tablet(s) PO TID as needed 09/10/2017 09/16/2017 Inactive prednisone 10 mg tablet RxNorm: 489779 Tablet(s) PO 09/10/2017 11/13/2017 Inactive 6,5,4,3,2,1 Zorvolex 35 mg capsule RxNorm: 7679634 1 Capsule(s) PO TID 09/07/2017 11/13/2017 Inactive Ambien 10 mg tablet RxNorm: 536550 1 Tablet(s) PO QHS as needed insomnia 08/29/2017 11/19/2017 Inactive Zorvolex 35 mg capsule RxNorm: 6521727 1 Capsule(s) PO TID 08/28/2017 09/06/2017 Inactive Zorvolex 35 mg capsule RxNorm: 3891742 1 Capsule(s) PO TID 08/13/2017 08/27/2017 Inactive Zorvolex 35 mg capsule RxNorm: 0004394 1 Capsule(s) PO TID 08/13/2017 08/12/2017 Inactive prednisone 20 mg tablet RxNorm: 023351 2 Tablet(s) PO daily 07/31/2017 08/04/2017 Inactive hydrocodone 7.5 mg-acetaminophen 325 mg tablet RxNorm: 719789 1 Tablet(s) PO TID as needed 07/31/2017 09/09/2017 Inactive Zorvolex 35 mg capsule RxNorm: 9885089 1 Capsule(s) PO TID as needed 07/31/2017 11/13/2017 Inactive ceftriaxone 500 mg solution for injection RxNorm: 1880244 1 Milliliter(s) Inj 06/27/2017 06/27/2017 Inactive Keflex 500 mg capsule RxNorm: 706949 1 Capsule(s) PO TID 06/27/2017 07/03/2017 Inactive Ambien 10 mg tablet RxNorm: 084677 1 Tablet(s) PO daily 05/29/2017 08/25/2017 Inactive tramadol 50 mg tablet RxNorm: 580179 1 Tablet(s) PO TID as needed 05/29/2017 07/27/2017 Inactive Xanax 1 mg tablet RxNorm: 076869 1 Tablet(s) PO BID PRN as needed anxiety 05/21/2017 10/03/2017 Inactive alprazolam 1 mg tablet RxNorm: 200173 1 Tablet(s) PO BID as needed 05/21/2017 06/19/2017 Inactive Celebrex 200 mg capsule RxNorm: 408475 1 CAPSULE(S) PO BID 05/04/2017 11/05/2017 Inactive prednisone 20 mg tablet RxNorm: 889534 2 Tablet(s) PO daily 04/20/2017 04/24/2017 Inactive Ambien 10 mg tablet RxNorm: 241393 Tablet(s) PO 04/20/2017 05/28/2017 Inactive hydrocodone 5 mg-acetaminophen 325 mg tablet RxNorm: 426036 1 Tablet(s) PO QID as needed 04/20/2017 08/01/2017 Inactive Cymbalta 60 mg capsule,delayed release RxNorm: 532725 1 Capsule(s) PO daily 04/20/2017 02/26/2018 Inactive Victoza 2-Marek 0.6 mg/0.1 mL (18 mg/3 mL) subcutaneous pen injector RxNorm: 429808 INJECT 1.8 MG SUB-Q ONCE DAILY 03/26/2017 09/21/2017 Inactive diazepam 2 mg tablet RxNorm: 193089 1 Tablet(s) PO QHS as needed insomnia 01/28/2017 05/07/2017 Inactive Victoza 2-Marek 0.6 mg/0.1 mL (18 mg/3 mL) subcutaneous pen injector RxNorm: 000473 1.8 Milligram(s) SQ daily 01/26/2017 03/25/2017 Inactive dispense quantity sufficient Tussionex Pennkinetic ER 10 mg-8 mg/5 mL suspension,extended release RxNorm: 1234700 5 Milliliter(s) PO BID 01/11/2017 01/15/2017 Inactive Xanax 1 mg tablet RxNorm: 220659 1 Tablet(s) PO BID PRN as needed anxiety 01/11/2017 05/20/2017 Inactive Zithromax Z-Marek 250 mg tablet RxNorm: 337193 1 Tablet(s) PO UD 01/11/2017 01/15/2017 Inactive zpack albuterol sulfate 2.5 mg/3 mL (0.083 %) solution for nebulization RxNorm: 894980 3 Milliliter(s) INH UD 01/11/2017 11/13/2017 Inactive prednisone 20 mg tablet RxNorm: 151616 2 Tablet(s) PO daily 01/11/2017 01/15/2017 Inactive Kenalog 40 mg/mL suspension for injection RxNorm: 8195388 1.5 Milliliter(s) Inj 01/11/2017 01/11/2017 Inactive Celebrex 200 mg capsule RxNorm: 729200 1 Capsule(s) PO BID 11/30/2016 02/27/2017 Inactive Ambien 5 mg tablet RxNorm: 546481 1 Tablet(s) PO HS PRN 11/30/2016 08/07/2017 Inactive trazodone 50 mg tablet RxNorm: 325697 1/2 to 1 Tablet(s) PO QHS 10/13/2016 10/12/2016 Inactive trazodone 50 mg tablet RxNorm: 482629 1/2 to 1 Tablet(s) PO QHS 10/13/2016 11/29/2016 Inactive Belsomra 10 mg tablet RxNorm: 9089274 1 Tablet(s) PO QHS 09/28/2016 11/29/2016 Inactive may increase to 20mg if 10mg not effective Cymbalta 60 mg capsule,delayed release RxNorm: 831279 1 Capsule(s) PO daily 08/24/2016 03/21/2017 Inactive Xanax 1 mg tablet RxNorm: 528978 1 Tablet(s) PO BID PRN as needed anxiety 08/24/2016 01/10/2017 Inactive Victoza 2-Marek 0.6 mg/0.1 mL (18 mg/3 mL) subcutaneous pen injector RxNorm: 654466 Milligram(s) SQ 08/24/2016 08/23/2016 Inactive Victoza 2-Marek 0.6 mg/0.1 mL (18 mg/3 mL) subcutaneous pen injector RxNorm: 920445 1.8 Milligram(s) SQ 08/24/2016 01/25/2017 Inactive Vitamin D2 50,000 unit capsule RxNorm: 054572 1 Capsule(s) PO QW 07/13/2016 10/10/2016 Inactive Cymbalta 30 mg capsule,delayed release RxNorm: 939130 1 Capsule(s) PO daily 07/13/2016 08/23/2016 Inactive Belviq XR 20 mg tablet,extended release RxNorm: 1391436 1 Tablet(s) PO daily 05/30/2016 05/29/2016 Inactive prednisone 20 mg tablet RxNorm: 559404 2 Tablet(s) PO daily 05/30/2016 06/03/2016 Inactive prednisone 20 mg tablet RxNorm: 831125 2 Tablet(s) PO daily 05/30/2016 05/29/2016 Inactive Belviq XR 20 mg tablet,extended release RxNorm: 8664603 1 Tablet(s) PO daily 05/30/2016 06/28/2016 Inactive cyclobenzaprine 5 mg tablet RxNorm: 807061 1-2 Tablet(s) PO TID as needed 05/19/2016 05/23/2016 Inactive metoprolol succinate ER 25 mg tablet,extended release 24 hr RxNorm: 427220 1 Tablet(s) PO QPM 04/10/2016 04/13/2016 Inactive metoprolol succinate ER 25 mg tablet,extended release 24 hr RxNorm: 315227 1 Tablet(s) PO QPM 04/10/2016 04/09/2016 Inactive escitalopram 10 mg tablet RxNorm: 337319 1 Tablet(s) PO daily 03/16/2016 07/12/2016 Inactive estradiol 1 mg tablet RxNorm: 552436 1 Tablet(s) PO every other day 03/16/2016 05/15/2016 Inactive Kenalog 40 mg/mL suspension for injection RxNorm: 5101860 Milliliter(s) Inj 02/28/2016 02/28/2016 Inactive Zithromax Z-Marek 250 mg tablet RxNorm: 076859 1 Tablet(s) PO UD 02/28/2016 03/03/2016 Inactive zpack Lexapro 10 mg tablet RxNorm: 639421 1 Tablet(s) PO daily 09/27/2015 02/27/2016 Inactive Lexapro 10 mg tablet RxNorm: 377877 1 Tablet(s) PO daily 08/30/2015 09/26/2015 Inactive Vimovo 500 mg-20 mg tablet,immediate and delay release RxNorm: 138127 1 Tablet(s) PO BID as needed for pain 08/30/2015 09/26/2015 Inactive azithromycin 250 mg tablet RxNorm: 765784 1 Tablet(s) PO UD 2 pills on day #1, then one pill daily x 4 days 07/15/2015 01/12/2016 Inactive hydrocodone 10 mg-acetaminophen 325 mg tablet RxNorm: 802882 1 Tablet(s) PO QID 06/16/2015 01/12/2016 Inactive pramipexole 0.5 mg tablet RxNorm: 315296 1 Tablet(s) PO QPM 06/16/2015 07/14/2015 Inactive Celebrex 200 mg capsule RxNorm: 628972 1 Capsule(s) PO daily 05/03/2015 05/02/2015 Inactive Celebrex 200 mg capsule RxNorm: 036910 1 Capsule(s) PO daily 05/03/2015 01/12/2016 Inactive hydrocodone 7.5 mg-acetaminophen 325 mg tablet RxNorm: 547166 1 Tablet(s) PO Q6 PRN 05/03/2015 06/15/2015 Inactive Mobic 15 mg tablet RxNorm: 862476 1 Tablet(s) PO daily 04/02/2015 05/02/2015 Inactive hydrocodone 7.5 mg-acetaminophen 325 mg tablet RxNorm: 996730 1 Tablet(s) PO Q6 PRN 04/02/2015 05/02/2015 Inactive hydrocodone 5 mg-acetaminophen 325 mg tablet RxNorm: 920076 1 Tablet(s) PO Q6 as needed 12/11/2014 04/01/2015 Inactive Pennsaid 1.5 % topical drops RxNorm: 951194 40 Drop(s) TOP QID as needed 12/07/2014 02/04/2015 Inactive Apply 40 drops to each knee joint 4 times per day as needed for osteoarthritis pain estradiol 1 mg tablet RxNorm: 909231 1 Tablet(s) PO QHS No Start Date 03/15/2016 Inactive Xanax 0.5 mg tablet RxNorm: 994804 1 Tablet(s) PO Q6 as needed anxiety No Start Date 08/23/2016 Inactive Tylenol Extra Strength 500 mg tablet RxNorm: 864259 3 Tablet(s) PO BID after breakfast and after lunch No Start Date 01/12/2016 Inactive lactulose 20 gram/30 mL oral solution RxNorm: 057349 15-30 Milliliter(s) PO BID as needed No Start Date 12/30/2017 Inactive hydrocodone 5 mg-acetaminophen 325 mg tablet RxNorm: 943616 1 Tablet(s) PO Q6 as needed No Start Date 12/10/2014 Inactive Phenergan-Codeine syrup RxNorm: 5-10 Milliliter(s) PO QID as needed No Start Date 11/13/2017 Inactive ibuprofen 200 mg capsule RxNorm: 818236 4 Capsule(s) PO QID as needed No Start Date 04/01/2015 Inactive Medication Administered Medication Codes Instructions Start Date Status Kenalog 40 mg/mL suspension for injection RxNorm: 4117341 Milliliter 07/17/2018 No longer Active ceftriaxone 500 mg solution for injection RxNorm: 5662357 1Milliliter 06/27/2017 No longer Active Kenalog 40 mg/mL suspension for injection RxNorm: 7333759 1.5Milliliter 01/11/2017 No longer Active Kenalog 40 mg/mL suspension for injection RxNorm: 3650087 Milliliter 02/28/2016 No longer Active Immunizations Vaccine [...] sent to ref lab 08/27/2018 Influenza A+B Nuz566 Influ A+B Pos Influenza A 07/17/2018 %Hba1C Kwj619 % HbA1c 24546- 6 6.7 % 11/20/2017 %Hba1C Ill957 Gluc Ave 146 mg/dL 11/20/2017 Free T4 Ndp172 FREE T4 0.76 ng/dL 05/21/2017 Tsh Ord6 hTSH II 1.27 uIU/mL 05/21/2017 Comp Metabolic Lmh422 NA 140 mEq/L 05/21/2017 Comp Metabolic Nwe137 K 3.9 mEq/L 05/21/2017 Comp Metabolic Jfs395 CL 101 mEq/L 05/21/2017 Comp Metabolic Vvu463 CO2 28.0 mEq/L 05/21/2017 Comp Metabolic Dhz690 ANION GAP 15 05/21/2017 Comp Metabolic Lcz825 GLUCOSE 155 mg/dL 05/21/2017 Comp Metabolic Ubb435 Creat 0.7 mg/dL 05/21/2017 Comp Metabolic Tmr647 eGFR 87 ml/min/1.73m2 05/21/2017 Comp Metabolic Lyt302 BUN 16 mg/dL 05/21/2017 Comp Metabolic Egb551 B/C Ratio 21.6 Ratio 05/21/2017 Comp Metabolic Egj388 CALCIUM 9.4 mg/dL 05/21/2017 Comp Metabolic Opa167 ALK PHOS 132 U/L 05/21/2017 Comp Metabolic Xwp568 AST(SGOT) 16 U/L 05/21/2017 Comp Metabolic Qeg147 ALT(SGPT) 20 U/L 05/21/2017 Comp Metabolic Uvk976 BILI T 0.4 mg/dL 05/21/2017 Comp Metabolic Pde635 ALBUMIN 4.0 g/dL 05/21/2017 Comp Metabolic Wew579 TPRO 6.7 g/dL 05/21/2017 Comp Metabolic Yjk569 GLOB 2.7 g/dL 05/21/2017 Comp Metabolic Ygx656 A/G Ratio 1.5 Ratio 05/21/2017 Comp Metabolic Hlw450 Osmo 284 mOsmo 05/21/2017 Cbc With Differential [...] Baso ABS# 0.0 K/ul 05/21/2017 Estrogens Total 132411 ESTROGENS, TOTAL 54 pg/mL 05/24/2016 Magnesium Ord90 Mag 1.8 mg/dL 05/19/2016 Tsh Ord6 hTSH II 1.56 uIU/mL 05/19/2016 Progesterone Prog 0.03 ng/mL 05/19/2016 Comp Metabolic Uhp737 NA 136 mEq/L 05/19/2016 Comp Metabolic Sgg434 K 4.3 mEq/L 05/19/2016 Comp Metabolic Bhc722 CL 100 mEq/L 05/19/2016 Comp Metabolic Kuf144 CO2 28.0 mEq/L 05/19/2016 Comp Metabolic Adp557 ANION GAP 12 05/19/2016 Comp Metabolic Oyz927 GLUCOSE 138 mg/dL 05/19/2016 Comp Metabolic Jfk904 Creat 0.7 mg/dL 05/19/2016 Comp Metabolic Cst095 eGFR 89 ml/min/1.73m2 05/19/2016 Comp Metabolic Ezy889 BUN 15 mg/dL 05/19/2016 Comp Metabolic Hcf301 B/C Ratio 20.5 Ratio 05/19/2016 Comp Metabolic Cnn836 CALCIUM 9.7 mg/dL 05/19/2016 Comp Metabolic Oey228 ALK PHOS 106 U/L 05/19/2016 Comp Metabolic Swx385 AST(SGOT) 21 U/L 05/19/2016 Comp Metabolic Xai674 ALT(SGPT) 24 U/L 05/19/2016 Comp Metabolic Okw723 BILI T 0.4 mg/dL 05/19/2016 Comp Metabolic Fka972 ALBUMIN 4.1 g/dL 05/19/2016 Comp Metabolic Tpl883 TPRO 7.1 g/dL 05/19/2016 Comp Metabolic Gbk773 GLOB 3.0 g/dL 05/19/2016 Comp Metabolic Lcn485 A/G Ratio 1.4 Ratio 05/19/2016 Comp Metabolic Izq130 Osmo 275 mOsmo 05/19/2016 Cbc With Differential [...] 0.0 K/ul 05/19/2016 C RAP A SC 3014508 Strep A Negative 02/28/2016 Tsh Ord6 hTSH [...] part differential hematolgy analyzer. 08/16/2015 Comp Metabolic Hkt608 NA 132 mEq/L 08/16/2015 Comp Metabolic Kjq572 K 3.6 mEq/L 08/16/2015 Comp Metabolic Zmr099 CL 99 mEq/L 08/16/2015 Comp Metabolic Ilb124 CO2 23.0 mEq/L 08/16/2015 Comp Metabolic Dqh902 ANION GAP 14 08/16/2015 Comp Metabolic Pfb141 GLUCOSE 101 mg/dL 08/16/2015 Comp Metabolic Jnx738 Creat 0.7 mg/dL 08/16/2015 Comp Metabolic Cvl225 eGFR 100 ml/min/1.73m2 08/16/2015 Comp Metabolic Xpf485 BUN 10 mg/dL 08/16/2015 Comp Metabolic Zns191 B/C Ratio 15.2 Ratio 08/16/2015 Comp Metabolic Zid442 CALCIUM 9.3 mg/dL 08/16/2015 Comp Metabolic Mpj270 ALK PHOS 100 U/L 08/16/2015 Comp Metabolic Pit776 AST(SGOT) 14 U/L 08/16/2015 Comp Metabolic Dvt857 ALT(SGPT) 11 U/L 08/16/2015 Comp Metabolic Ufe268 BILI T 0.3 mg/dL 08/16/2015 Comp Metabolic Sqc536 ALBUMIN 3.9 g/dL 08/16/2015 Comp Metabolic Wqp158 TPRO 7.1 g/dL 08/16/2015 Comp Metabolic Pht151 GLOB 3.2 g/dL 08/16/2015 Comp Metabolic Rvt267 A/G Ratio 1.2 Ratio 08/16/2015 Comp Metabolic Ffq674 Osmo 264 mOsmo 08/16/2015 Lipid Ord30 CHOL 209 mg/dL 12/03/2014 Lipid Ord30 HDL 42.0 mg/dl 12/03/2014 Lipid Ord30 TRIG 219 mg/dL 12/03/2014 Lipid Ord30 LDL 123 mg/dL 12/03/2014 Lipid Ord30 C/HDL 5.0 Ratio 12/03/2014 Comp Metabolic Mty507 NA 132 mEq/L 12/03/2014 Comp Metabolic Hvm177 K 4.0 mEq/L 12/03/2014 Comp Metabolic Soy551 CL 101 mEq/L 12/03/2014 Comp Metabolic Elx095 CO2 22.0 mEq/L 12/03/2014 Comp Metabolic Owt856 ANION GAP 13 12/03/2014 Comp Metabolic Reo175 GLUCOSE 123 mg/dL 12/03/2014 Comp Metabolic Dyz508 Creat 0.7 mg/dL 12/03/2014 Comp Metabolic Etm983 eGFR 97 ml/min/1.73m2 12/03/2014 Comp Metabolic Ydr452 BUN 10 mg/dL 12/03/2014 Comp Metabolic Xzt658 B/C Ratio 14.7 Ratio 12/03/2014 Comp Metabolic Dpx564 CALCIUM 9.2 mg/dL 12/03/2014 Comp Metabolic Cex630 ALK PHOS 88 U/L 12/03/2014 Comp Metabolic Fuc533 AST(SGOT) 18 U/L 12/03/2014 Comp Metabolic Vwu196 ALT(SGPT) 17 U/L 12/03/2014 Comp Metabolic Egr988 BILI T 0.5 mg/dL 12/03/2014 Comp Metabolic Qrm508 ALBUMIN 3.9 g/dL 12/03/2014 Comp Metabolic Zzz527 TPRO 6.8 g/dL 12/03/2014 Comp Metabolic Voz392 GLOB 2.9 g/dL 12/03/2014 Comp Metabolic Ugr143 A/G Ratio 1.3 Ratio 12/03/2014 Comp Metabolic Xpe088 Osmo 265 mOsmo 12/03/2014 Tsh Ord6 hTSH II 1.13 uIU/mL 12/03/2014 D-Dimer D-DIMER 168 NG/ML 12/03/2014 D-Dimer [id number] COMMENT 12/03/2014 Cbc With Differential Ord2 WBC [...] Procedure Codes Date THER/PROPH/DIAG INJ SC/IM CPT-4: 19607 07/17/2018 TRIAMCINOLONE ACET INJ NOS CPT-4: J3301 07/17/2018 THER/PROPH/DIAG INJ SC/IM CPT-4: 20186 06/27/2017 ROCEPHIN, PER 250 MG CPT- 4: J0696 06/27/2017 IMMUNIZATION ADMIN CPT- 4: 85055 03/16/2017 FLU VAC NO PRSV 4 FLETCHER 3 YRS+ CPT-4: 41337 03/16/2017 Pneumococcal Polysaccharide Vaccine, 23-Valent, Ad CPT-4: 19890 03/16/2017 IMMUNIZATION ADMIN EACH ADD CPT-4: 18331 03/16/2017 TRIAMCINOLONE ACET INJ NOS CPT-4: J3301 01/11/2017 TRIAMCINOLONE ACET INJ NOS CPT-4: J3301 02/28/2016 Vital Signs Date Vital 08/26/2018 Blood Pressure 1: 126/72 Code: 8480-6 Heart Rate 1: 68 bpm Height: 5'6" SpO2: 94% Weight: 08/12/2018 Blood Pressure 1: 124/68 Code: 8480-6 BMI: 38.4 Code: 61426-4 Heart Rate 1: 79 bpm Height: 5'6" SpO2: 94% Weight: 238 lbs 07/17/2018 Blood Pressure 1: 126/72 Code: 8480-6 BMI: 38.6 Code: 30915-6 Heart Rate 1: 85 bpm Height: 5'6" SpO2: 95% Temperature: 36.9 (C) / 98.4 (F) Weight: 239 lbs 07/04/2018 Blood Pressure 1: 132/76 Code: 8480-6 Heart Rate 1: 80 bpm Height: SpO2: 97% Weight: 06/19/2018 Blood Pressure 1: 124/74 Code: 8480-6 BMI: 38.6 Code: 29560-9 Heart Rate 1: 85 bpm Height: 5'6" SpO2: 95% Weight: 239 lbs 04/24/2018 Blood Pressure 1: 128/74 Code: 8480-6 BMI: 37.8 Code: 97959-5 Heart Rate 1: 107 bpm Height: 5'6" SpO2: 98% Weight: 234 lbs 04/17/2018 Blood Pressure 1: 120/64 Code: 8480-6 BMI: 37.8 Code: 03294-3 Heart Rate 1: 84 bpm Height: 5'6" SpO2: 96% Weight: 234 lbs 03/14/2018 Blood Pressure 1: 140/82 Code: 8480-6 BMI: 37.8 Code: 19084-4 Heart Rate 1: 85 bpm Height: 5'6" SpO2: 98% Weight: 234 lbs 02/27/2018 Blood Pressure 1: 142/68 Code: 8480-6 BMI: 36.5 Code: 99568-7 Heart Rate 1: 84 bpm Height: 5'6" SpO2: 97% Weight: 226 lbs 12/19/2017 Blood Pressure 1: 130/86 Code: 8480-6 BMI: 35.7 Code: 93741-6 Heart Rate 1: 94 bpm Height: 5'6" Weight: 221 lbs 12/04/2017 Blood Pressure 1: 138/78 Code: 8480-6 BMI: 36.6 Code: 70011-5 Heart Rate 1: 94 bpm Height: 5'6" SpO2: 98% Weight: 227 lbs 11/20/2017 Weight: 233 lbs 09/10/2017 Blood Pressure 1: 132/86 Code: 8480-6 Heart Rate 1: 86 bpm Height: Weight: 08/14/2017 Blood Pressure 1: 120/74 Code: 8480-6 BMI: 33.9 Code: 41244-0 Heart Rate 1: 92 bpm Height: 5'6" SpO2: 94% Weight: 210 lbs 07/31/2017 Blood Pressure 1: 140/80 Code: 8480-6 BMI: 33.9 Code: 57253-6 Heart Rate 1: 96 bpm Height: 5'6" SpO2: 97% Weight: 210 lbs 06/27/2017 Blood Pressure 1: 128/80 Code: 8480-6 BMI: 33.9 Code: 62918-7 Heart Rate 1: 85 bpm Height: 5'6" [...] 1: 126/74 Code: 8480-6 BMI: 39.9 Code: 87878-9 Heart Rate 1: 79 bpm Height: 5'6" SpO2: 97% Weight: 247 lbs 01/26/2017 Blood Pressure 1: 132/74 Code: 8480-6 BMI: 37.8 Code: 38219-3 Heart Rate 1: 74 bpm Height: 5'6" SpO2: 97% Weight: 234 lbs 01/11/2017 Blood Pressure 1: 118/68 Code: 8480-6 BMI: 38.7 Code: 14915-6 Heart Rate 1: 91 bpm Height: 5'6" SpO2: 96% Weight: 240 lbs 11/30/2016 Blood Pressure 1: 132/76 Code: 8480-6 BMI: 38.3 Code: 41893-7 Heart Rate 1: 71 bpm Height: 5'6" SpO2: 92% Weight: 237 lbs 09/28/2016 Blood Pressure 1: 122/72 Code: 8480-6 BMI: 39.1 Code: 87866-0 Heart Rate 1: 88 bpm Height: 5'6" SpO2: 94% Weight: 242 lbs 08/24/2016 Blood Pressure 1: 130/87 Code: 8480-6 BMI: 41.5 Code: 53859-3 Heart Rate 1: 95 bpm Height: 5'6" Respiratory Rate: 16 bpm SpO2: 98% Temperature: 36.9 (C) / 98.5 (F) Weight: 257 lbs 07/13/2016 Blood Pressure 1: 132/84 Code: 8480-6 BMI: 42.0 Code: 34688-6 Heart Rate 1: 73 bpm Height: 5'6" SpO2: 97% Weight: 260 lbs 05/19/2016 Blood Pressure 1: 138/76 Code: 8480-6 BMI: 40.8 Code: 83182-6 Heart Rate 1: 80 bpm Height: 5'6" SpO2: 98% Weight: 253 lbs 03/16/2016 Blood Pressure 1: 122/70 Code: 8480-6 BMI: 40.4 Code: 05443-7 Heart Rate 1: 72 bpm Height: 5'6" SpO2: 98% Weight: 250 lbs 02/28/2016 Blood Pressure 1: 136/86 Code: 8480-6 BMI: 40.2 Code: 16876-4 Heart Rate 1: 87 bpm Height: 5'6" SpO2: 96% Temperature: 36.3 (C) / 97.3 (F) Weight: 249 lbs 01/13/2016 Blood Pressure 1: 120/76 Code: 8480-6 BMI: 40.4 Code: 40391-7 Heart Rate 1: 68 bpm Height: 5'6" SpO2: 97% Weight: 250 lbs 09/27/2015 Blood Pressure 1: 112/70 Code: 8480-6 BMI: 38.4 Code: 31524-0 Heart Rate 1: 76 bpm Height: 5'6" SpO2: 98% Weight: 238 lbs 08/30/2015 Blood Pressure 1: 144/82 Code: 8480-6 BMI: 39.5 Code: 06563-8 Heart Rate 1: 82 bpm Height: 5'6" SpO2: 97% Weight: 245 lbs 08/16/2015 Blood Pressure 1: 140/72 Code: 8480-6 BMI: 38.9 Code: 56019-0 Heart Rate 1: 72 bpm Height: 5'6" SpO2: 97% Weight: 241 lbs 07/15/2015 Blood Pressure 1: 128/80 Code: 8480-6 BMI: 39.3 Code: 62962-6 Heart Rate 1: 86 bpm Height: 5'6" SpO2: 98% Weight: 243 lbs 8 oz 06/16/2015 Blood Pressure 1: 146/86 Code: 8480-6 BMI: 39.6 Code: 36493-1 Heart Rate 1: 76 bpm Height: 5'6" SpO2: 97% Weight: 245 lbs 8 oz 04/02/2015 Blood Pressure 1: 132/86 Code: 8480-6 BMI: 40.7 Code: 69612-1 Heart Rate 1: 94 bpm Height: 5'6" SpO2: 98% Weight: 252 lbs 12/02/2014 Blood Pressure 1: 122/90 Code: 8480-6 BMI: 41.6 Code: 94813-1 Heart Rate 1: 77 bpm Height: 5'6" [...] mellitus with hyperglycemia[ICD10: E11.65] Petra Trejo MD, [facility] CPT-4: 00342 08/26/2018 40331 EST. PATIENT, LEVEL III Diagnosis: Type 2 diabetes mellitus without complications[ICD10: E11.9] Petra Trejo MD, [facility] CPT-4: 71659 08/12/2018 43336 EST. PATIENT, LEVEL III Diagnosis: Acute laryngopharyngitis[ICD10: J06.0] Diagnosis: Cough[ICD10: R05] Diagnosis: Other allergic rhinitis[ICD10: J30.89] Diagnosis: Right upper quadrant pain[ICD10: R10.11] Petra Trejo MD, [facility] CPT-4: 74409 07/17/2018 84287 EST. PATIENT, LEVEL III Diagnosis: Generalized anxiety disorder[ICD10: F41.1] Diagnosis: Major depressive disorder, single episode, moderate[ICD10: F32.1] Petra Trejo MD, [facility] CPT-4: 84038 07/04/2018 46781 EST. PATIENT, LEVEL IV Diagnosis: Generalized anxiety disorder[ICD10: F41.1] Diagnosis: Major depressive disorder, single episode, moderate[ICD10: F32.1] Diagnosis: Other insomnia[ICD10: G47.09] Petra Trejo MD, [facility] CPT-4: 45552 06/19/2018 60496 EST. PATIENT, LEVEL IV Diagnosis: Right upper quadrant pain[ICD10: R10.11] Diagnosis: Other chest pain[ICD10: R07.89] Petra Trejo MD, [facility] CPT-4: 00619 04/24/2018 30421 EST. PATIENT, LEVEL III Diagnosis: Generalized anxiety disorder[ICD10: F41.1] Diagnosis: Major depressive disorder, recurrent, mild[ICD10: F33.0] Diagnosis: Essential (primary) hypertension[ICD10: I10] Diagnosis: Type 2 diabetes mellitus without complications[ICD10: E11.9] Petra Trejo MD, [facility] CPT-4: 25004 04/17/2018 31491 EST. PATIENT, LEVEL III Diagnosis: Localized edema[ICD10: R60.0] Diagnosis: Essential (primary) hypertension[ICD10: I10] Petra Trejo MD, [facility] CPT-4: 90120 03/14/2018 24399 EST. PATIENT, LEVEL III Diagnosis: Pain in left knee[ICD10: M25.562] Diagnosis: Other obesity due to excess calories[ICD10: E66.09] Diagnosis: Other insomnia[ICD10: G47.09] Diagnosis: Generalized anxiety disorder[ICD10: F41.1] Petra Trejo MD, [facility] CPT-4: 55742 02/27/2018 ([id number]) Miscellaneous no charge Diagnosis: Other obesity due to excess calories[ICD10: E66.09] Heidy Trejo MD, [facility] CPT-4: 74688 12/19/2017 60842 EST. PATIENT, LEVEL III Diagnosis: Pain in right foot[ICD10: M79.671] Diagnosis: Pain in right ankle and joints of right foot[ICD10: M25.571] Petra Trejo MD, [facility] CPT-4: 72378 12/04/2017 05192 EST. PATIENT, LEVEL III Diagnosis: Pain in left knee[ICD10: M25.562] Diagnosis: Type 2 diabetes mellitus without complications[ICD10: E11.9] Diagnosis: Other obesity due to excess calories[ICD10: E66.09] Petra Trejo MD, [facility] CPT-4: 88698 11/20/2017 04859 EST. PATIENT, LEVEL III Diagnosis: Pain in left knee[ICD10: M25.562] Petra Trejo MD, [facility] CPT-4: 03663 09/10/2017 42214 EST. PATIENT, LEVEL III Diagnosis: Encounter for follow-up examination after completed treatment for conditions other than malignant neoplasm[ICD10: Z09] Diagnosis: Pain in left knee[ICD10: M25.562] Petra Trejo MD, [facility] CPT-4: 83056 08/14/2017 81925 EST. PATIENT, LEVEL III Diagnosis: Pain in left knee[ICD10: M25.562] Petra Trejo MD, [facility] CPT-4: 20289 07/31/2017 87132 EST. PATIENT, LEVEL III Diagnosis: Acute laryngopharyngitis[ICD10: J06.0] Diagnosis: Other allergic rhinitis[ICD10: J30.89] Petra Trejo MD, [facility] CPT- 4: 46236 06/27/2017 79859 EST. PATIENT, LEVEL III Diagnosis: Ganglion, left hand[ICD10: M67.442] Diagnosis: Essential (primary) hypertension[ICD10: I10] Diagnosis: Generalized anxiety disorder[ICD10: F41.1] Diagnosis: Other insomnia[ICD10: G47.09] Petra Trejo MD, [facility] CPT-4: 81906 05/29/2017 79985 EST. PATIENT, LEVEL III Diagnosis: Essential (primary) hypertension[ICD10: I10] Diagnosis: Palpitations[ICD10: R00.2] Diagnosis: Generalized anxiety disorder[ICD10: F41.1] Petra Trejo MD, [facility] CPT-4: 64072 05/21/2017 95279 EST. PATIENT, LEVEL III Diagnosis: Pain in right foot[ICD10: M79.671] Petra Trejo MD, [facility] CPT-4: 58797 04/20/2017 82416 EST. PATIENT, LEVEL IV Diagnosis: Other insomnia[ICD10: G47.09] Diagnosis: Other skin changes[ICD10: R23.8] Petra Trejo MD, [facility] CPT-4: 38857 01/26/2017 65999 EST. PATIENT, LEVEL IV Diagnosis: Acute bronchitis due to other specified organisms[ICD10: J20.8] Petra Trejo MD, [facility] CPT-4: 48551 01/11/2017 ([id number]) 88610 EST. PATIENT, LEVEL IV Diagnosis: Essential (primary) hypertension[ICD10: I10] Diagnosis: Other insomnia[ICD10: G47.09] Diagnosis: Primary generalized (osteo)arthritis[ICD10: M15.0] Diagnosis: Other obesity due to excess calories[ICD10: E66.09] Claudette Trejo MD, [facility] CPT-4: 24053 11/30/2016 ([id number]) 63743 EST. PATIENT, LEVEL III Diagnosis: Other obesity due to excess calories[ICD10: E66.09] Diagnosis: Other insomnia[ICD10: G47.09] Diagnosis: Generalized anxiety disorder[ICD10: F41.1] Claudette Trejo MD, [facility] CPT-4: 95319 09/28/2016 ([id number]) 34441 EST. PATIENT, LEVEL IV Diagnosis: Generalized anxiety disorder[ICD10: F41.1] Diagnosis: Major depressive disorder, recurrent, mild[ICD10: F33.0] Diagnosis: Other obesity due to excess calories[ICD10: E66.09] Diagnosis: Other insomnia[ICD10: G47.09] Claudette Trejo MD, [facility] CPT-4: 70144 08/24/2016 ([id number]) 53168 EST. PATIENT, LEVEL III Diagnosis: Other obesity due to excess calories[ICD10: E66.09] Diagnosis: Major depressive disorder, recurrent, moderate[ICD10: F33.1] Diagnosis: Low back pain[ICD10: M54.5] Heidy Trejo MD, [facility] CPT-4: 99443 07/13/2016 22316 EST. PATIENT, LEVEL IV Diagnosis: Other muscle spasm[ICD10: M62.838] Diagnosis: Generalized anxiety disorder[ICD10: F41.1] Diagnosis: Major depressive disorder, recurrent, moderate[ICD10: F33.1] Diagnosis: Other insomnia[ICD10: G47.09] Petra Trejo MD, [facility] CPT-4: 01603 05/19/2016 ([id number]) 82135 EST. PATIENT, LEVEL III Diagnosis: Generalized anxiety disorder[ICD10: F41.1] Diagnosis: Major depressive disorder, recurrent, moderate[ICD10: F33.1] Heidy Trejo MD, [facility] CPT-4: 93917 03/16/2016 ([id number]) 12061 EST. PATIENT, LEVEL III Diagnosis: Streptococcal pharyngitis[ICD10: J02.0] Claudette Trejo MD, [facility] CPT-4: 11174 02/28/2016 ([id number]) 62981 EST. PATIENT, LEVEL III Diagnosis: Generalized anxiety disorder[ICD10: F41.1] Diagnosis: Other obesity due to excess calories[ICD10: E66.09] Heidy Trejo MD, [facility] CPT-4: 98974 01/13/2016 ([id number]) 11649 EST. PATIENT, LEVEL III Diagnosis: Generalized anxiety disorder[ICD10: F41.1] Diagnosis: Major depressive disorder, recurrent, unspecified[ICD10: F33.9] Heidy Trejo MD, [facility] CPT-4: 08496 09/27/2015 72320 EST. PATIENT, LEVEL IV Diagnosis: Chronic pain syndrome[ICD10: G89.4] Diagnosis: Other obesity due to excess calories[ICD10: E66.09] Diagnosis: Essential (primary) hypertension[ICD10: I10] Diagnosis: Generalized anxiety disorder[ICD10: F41.1] Diagnosis: Excessive and frequent menstruation with regular cycle[ICD10: N92.0] Diagnosis: Pain in right knee[ICD10: M25.561] Petra Trejo MD, [facility] CPT-4: 61197 08/30/2015 04514 EST. PATIENT, LEVEL IV Diagnosis: Palpitations[ICD10: R00.2] Diagnosis: Other obesity due to excess calories[ICD10: E66.09] Petra Trejo MD, [facility] CPT-4: 51023 08/16/2015 ([id number]) 82259 EST. PATIENT, LEVEL IV Diagnosis: Pain in right knee[ICD10: M25.561] Diagnosis: Primary generalized (osteo)arthritis[ICD10: M15.0] Diagnosis: Acute maxillary sinusitis, unspecified[ICD10: J01.00] Heidy Trejo MD, [facility] CPT-4: 39540 07/15/2015 ([id number]) 70840 EST. PATIENT, LEVEL IV Diagnosis: Primary generalized (osteo)arthritis[ICD10: M15.0] Diagnosis: Restless legs syndrome[ICD10: G25.81] Diagnosis: Chronic pain syndrome[ICD10: G89.4] Heidy Trejo MD, [facility] CPT- 4: 44029 06/16/2015 ([id number]) 04683 EST. PATIENT, LEVEL III Diagnosis: Primary generalized (osteo)arthritis[ICD10: M15.0] Diagnosis: Varicose veins of bilateral lower extremities with pain[ICD10: I83.813] Claudette Trejo MD, [facility] CPT-4: 82383 04/02/2015 ([id number]) OFFICE VISIT, NEW - LEVEL 3 Diagnosis: Osteoarthritis[ICD9: 715.90] Diagnosis: ABNORMAL WEIGHT GAIN[ICD9: 783.1] Diagnosis: Superficial thrombophlebitis[ICD9: 451.9] Carey Trejo MD, [facility] CPT-4: 21316 12/02/2014 Plan of Care Planned Activity Notes [...] glucose control. 08/26/2018 Appointment: Petra Rivas WPtel: [facility] ([address] 08/26/2018 Patient Education: Patient Medication Summary Completed [...] glucose control. 08/12/2018 Appointment: Petra Rivas WPtel: [facility]5 [facility] (30 min) Complex 08/12/2018 Patient Education: Patient [...] as indicated 07/17/2018 Appointment: Petra Rivas WPtel: [facility] (30 min) [...] current medications. 07/04/2018 Appointment: Petra Rivas WPtel: [facility]1 [facility] (30 min) [...] patient. 06/19/2018 Appointment: Petra Rivas WPtel: [phone] [facility] [place] (15 min) Moderate 06/19/2018 Patient [...] she is to follow up with her instant potato processor 04/24/2018 Appointment: Petra Rivas WPtel: [phone] [facility] [place] (30 min) Complex 04/24/2018 Patient [...] 04/17/2018 Appointment: Petra Rivas WPtel: [phone] [facility] (15 min) Moderate 04/17/2018 Patient Education: [...] edema. 03/14/2018 Appointment: [facility]ivas [phone] (15 min) Moderate 03/14/2018 [...] ortho 02/27/2018 Appointment: Pet[facility]ivas [phone] [place] (30 min) Complex 02/27/2018 Patient Education: [...] improve. 12/04/2017 Appointment: Petra Rivas WPtel: [phone] [facility] [place] (15 min) Moderate 12/04/2017 Patient Education: [...] glucose control. 11/20/2017 Appointment: Pet[facility] Rivas [facility]: [phone] [place] (15 min) Moderate 11/20/2017 Patient Education: [...] not improve. 09/10/2017 Appointment: Petra Rivas WPtel: [facility] [place] (15 min) Moderate [...] not improve. 08/14/2017 Appointment: Petra Rivas WPtel: [facility] [place] (30 min) Complex 08/14/2017 Patient Education: Patient Medication Summary Completed 08/14/2017 Appointment: Petra Rivas WPtel: [facility] [place] (15 min) Moderate 08/01/2017 Visit Plan: Knee pain - pt is to use RICE - Rest, Ice, Compression, Elevation - pt is to use crutches as directed - The pt is to use prn antiinflammatories to manage acute pain. The patient is to call the office if the pain is worsening or does not improve. 07/31/2017 Appointment: Petra Rivas WPtel: [facility] [place] (30 min) Complex 07/31/2017 Patient Education: Patient Medication Summary Completed 07/31/2017 Care Plan: X-RAY EXAM OF KNEE 3 LOINC : 46297-1 Pending 07/31/2017 Visit Plan: URI - Pt [...] allergy spray. 06/27/2017 Appointment: Petra Rivas WPtel: [facility] (15 min) Moderate 06/27/2017 Patient Education: Patient Medication Summary Completed 06/27/2017 Referral: Jignesh Quinn [facility] Patient informed. Referral info faxed. [...] Dr. Quinn 05/29/2017 Appointment: Petra Rivas WPtel: [facility] (15 min) Moderate 05/29/2017 Patient Education: Patient Medication Summary Completed 05/29/2017 Care Plan: Referral Order SNOMED-CT : [id number] Pending 05/29/2017 Appointment: Petra Rivas [facility]Ptel: [phone] [facility] (15 min) Moderate 05/28/2017 Visit Plan: Palpitations [...] acute concerns. 05/21/2017 Appointment: Petra Rivas WPtel: [facility] (15 min) Moderate 05/21/2017 Patient Education: Patient Medication Summary Completed 05/21/2017 Visit Plan: Right heel pain - will send RX, pt is to do stretches as directed - The pt is to use prn antiinflammatories to manage acute pain. The patient is to call the office if the pain is worsening or does not improve. 04/20/2017 Appointment: Petra Rivas WPtel: [facility] (30 min) Complex 04/20/2017 Patient Education: Patient Medication Summary Completed 04/20/2017 Appointment: Petra Rivas [facility]el: [phone] [facility] (30 min) Complex 03/29/2017 Patient Education: Patient Medication Summary Completed 03/16/2017 Referral: Maycol Quijano Referral Initiated 02/08/2017 Care Plan: Referral Order SNOMED-CT : [id number] Pending 01/28/2017 Visit Plan: Insomnia - Pt [...] concerns. 01/26/2017 Appointment: Petra Rivas WPtel: [phone] [facility] (30 min) Complex 01/26/2017 Patient Education: [...] worsen. 01/11/2017 Appointment: Petra Rivas WPtel: [phone] [facility] (15 min) Moderate 01/11/2017 Patient Education: [...] use. 11/30/2016 Appointment: Claudette Savage WPtel: [phone] [facility] (15 min) Moderate 11/30/2016 Patient Education: Patient Medication Summary Completed 11/30/2016 Patient Education: Obesity Completed 11/30/2016 Care Plan: BMI Above normal followup SELF-MGMT EDUC & TRAIN 1 PT Pending 11/30/2016 Visit Plan: Gaodnvb-lyeqycssqx-mjslbjff with increase in cymbalta- no changes Insomnia-RX for belsomra provided and instructed on use Obesity- patient down 15#-no changes-continue diet/exercise-follow up in 2 months 09/28/2016 Appointment: Claudette Savage WPtel: [address] [place], [place] [phone] [place] (15 min) Moderate 09/28/2016 Patient Education: Patient Medication Summary Completed 09/28/2016 Patient Education: Obesity Completed 09/28/2016 Care Plan: BMI Above normal followup SELF-MGMT EDUC & TRAIN 1 PT Pending 09/28/2016 Visit Plan: Rwsnqni-qdlhkqpmpa-eusdfxcs-increase cymbalta to 60mg daily. Increase xanax as [...] for insomnia/anxiety 08/24/2016 Appointment: Claudette Savage WPtel: [address] [place], [place] [phone] [place] (15 min) Moderate 08/24/2016 Patient Education: [...] not improving. 07/13/2016 Appointment: Heidy Trejo WPtel: [facility]3 [facility] [place] (15 min) Moderate 07/13/2016 Patient Education: [...] time insomnia. 05/19/2016 Appointment: Petra Rivas WPtel: [facility]8 [facility]66[facility] (30 min) Complex 05/19/2016 Patient Education: Patient [...] this patient. 03/16/2016 Appointment: Heidy Trejo WPtel: [facility]0 [facility] (15 min) Moderate 03/16/2016 Patient Education: Patient [...] the swab. 02/28/2016 Appointment: Claudette Savage WPtel: [facility]6 [facility] (10 min) Simple 02/28/2016 Patient Education: [...] lexapro 01/13/2016 [phone] ([facility] Moderate 01/13/2016 Patient Education: Patient [...] 09/27/2015 Care Plan: Referral Order SNOMED-CT : [id number] Pending 08/31/2015 Visit Plan: Anxiety - the [...] symptoms. 07/15/2015 App[facility]ment[phone] [place] (15 min) Moderate 07/15/2015 [...] vein clinic 04/02/2015 Appointment: Claudette Savage WPtel: [facility] [place] (15 min) Moderate 04/02/2015 Patient Education: [...] Completed 12/02/2014 Referral: Belle Hoffman WPtel: [phone] [facility] they will call and set the appt with her Initiated Referral: Jenna Quijanoan Referral Initiated Referral: Belle Hoffman WPtel: [phone] [facility] Referral Initiated Referral: Jignesh Quinn [facility] [place] Referral Initiated Instructions Comment . Diabetes [...] she is to follow up with her instant potato processor . Anxiety and Depression- the patient has [...] 1 mg at night for anxiety . Cmbsmnz-jdberjlocg-yhiyphut-increase cymbalta to 60mg daily. Increase xanax as [...] to allow for greater blood glucose control. [facility] contrave 1 pill nightly x 1 week, [...] appropriately prescribed for this patient. BELSOMRA . Qrogwnz-uoozlvxroz-awgdfgpr with increase in cymbalta-no changes Insomnia-RX for [...]
--- OUTSIDE RECORDS SUMMARY | 2018-10-14 13:16 | XMS REPORT | CCD ---
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 Name Role Phone PP Unavailable CCM Unavailable Summary Purpose Interface Exchange Insurance Providers Payer name Policy type / Coverage type Covered alliance party ID Effective Begin Date Effective End Date [facility] Commercial Insurance [id number] Unknown Family history Brother Diagnosis Age At [...] Description Effective Dates Tobacco history SNOMED CT: 2084072 Quit less than 5 years ago 04/02/2015 Alcohol history Unknown occasionally drinks alcohol 04/02/2015 Marital status Unknown Manuel Vitale 12/02/2014 Number of children Unknown 3 12/02/2014 Allergies, Adverse Reactions, Alerts Substance Reaction Codes Entered Date Inactivated Date Status * NO KNOWN FOOD ALLERGIES Unknown 12/02/2014 No Inactive Date Active Penicillin Unknown 12/02/2014 No Inactive Date Active tramadol RxNorm: 03031 12/02/2014 No Inactive Date Active Past Medical [...] (18 mg/3 mL) subcutaneous pen injector RxNorm: 2867516 1.8 Milliliter(s) SQ daily 08/27/2018 12/24/2018 Active disp qty sufficient Xanax 1 mg tablet RxNorm: 959603 1-2 Tablet(s) PO QHS as needed insomnia 08/26/2018 11/23/2018 Active metformin 500 mg tablet RxNorm: 363592 1 Tablet(s) PO BID 08/26/2018 12/23/2018 Active Keflex 500 mg capsule RxNorm: 351927 1 Capsule(s) PO TID 08/26/2018 09/01/2018 Active Protonix 40 mg tablet,delayed release RxNorm: 075235 1 TABLET(S) PO DAILY 08/12/2018 12/09/2018 Active metformin 500 mg tablet RxNorm: 106114 1 Tablet(s) PO daily 08/12/2018 08/25/2018 Inactive Lasix 20 mg tablet RxNorm: 515172 1 TABLET(S) PO DAILY NEEDED EDEMA 08/06/2018 10/04/2018 Active potassium chloride ER 10 mEq tablet,extended release RxNorm: 855563 1 TABLET(S) PO DAILY NEEDED TO TAKE WHEN YOU TAKE THE LASIX 08/06/2018 10/04/2018 Active Zorvolex 35 mg capsule RxNorm: 9598338 TAKE 1 CAPSULE BY MOUTH THREE (3) TIMES DAILY 08/02/2018 11/29/2018 Active prednisone 20 mg tablet RxNorm: 392570 Tablet(s) PO 07/17/2018 No Stop Date Active 20mg tonight then starting tomorrow: 60,60,40,40,20,20,10,10 Remeron 15 mg tablet RxNorm: 241153 1/2 Tablet(s) PO QHS 07/17/2018 2019 Active Tamiflu 75 mg capsule RxNorm: 249420 1 Capsule(s) PO BID 07/17/2018 07/21/2018 Inactive Kenalog 40 mg/mL suspension for injection RxNorm: 9340159 Milliliter(s) Inj 07/17/2018 07/17/2018 Inactive Lexapro 20 mg tablet RxNorm: 706019 1 TABLET(S) PO DAILY 07/15/2018 11/11/2018 Active potassium chloride ER 10 mEq tablet,extended release RxNorm: 430896 1 Tablet(s) PO daily as needed to take when you take the lasix 07/04/2018 08/02/2018 Inactive Lasix 20 mg tablet RxNorm: 285445 1 Tablet(s) PO daily as needed edema 07/04/2018 08/02/2018 Inactive Cymbalta 30 mg capsule,delayed release RxNorm: 613243 1 CAPSULE(S) PO DAILY TO BE TAKEN WITH 60MG TO=90MG 07/01/2018 07/14/2018 Inactive hydrochlorothiazide 25 mg tablet RxNorm: 484697 1 TABLET(S) PO DAILY 06/27/2018 09/24/2018 Active Remeron 15 mg tablet RxNorm: 248755 1/2 Tablet(s) PO QHS 06/20/2018 07/16/2018 Inactive Lasix 20 mg tablet RxNorm: 959357 1 Tablet(s) PO daily 06/19/2018 06/21/2018 Inactive potassium chloride ER 10 mEq tablet,extended release RxNorm: 413717 1 Tablet(s) PO daily 06/19/2018 07/03/2018 Inactive Lexapro 20 mg tablet RxNorm: 904882 1 Tablet(s) PO daily 06/19/2018 07/14/2018 Inactive gabapentin 300 mg capsule RxNorm: 937503 1 CAPSULE(S) PO TID 06/14/2018 08/12/2018 Inactive Ambien 10 mg tablet RxNorm: 352773 1 Tablet(s) PO QHS as needed insomnia 06/10/2018 09/07/2018 Active Cymbalta 30 mg capsule,delayed release RxNorm: 797534 1 Capsule(s) PO daily 06/03/2018 06/02/2018 Inactive Cymbalta 30 mg capsule,delayed release RxNorm: 188520 1 Capsule(s) PO daily to be taken with 60mg to=90mg 06/03/2018 06/30/2018 Inactive Protonix 40 mg tablet,delayed release RxNorm: 539414 1 TABLET(S) PO DAILY 05/20/2018 08/11/2018 Inactive gabapentin 300 mg capsule RxNorm: 337041 1 CAPSULE(S) PO TID 05/15/2018 06/13/2018 Inactive Protonix 40 mg tablet,delayed release RxNorm: 593639 1 Tablet(s) PO daily 04/24/2018 05/19/2018 Inactive Zorvolex 35 mg capsule RxNorm: 2584326 TAKE 1 CAPSULE BY MOUTH THREE (3) TIMES DAILY 04/22/2018 08/01/2018 Inactive hydrochlorothiazide 25 mg tablet RxNorm: 563396 1 TABLET(S) PO DAILY 04/08/2018 06/26/2018 Inactive Zorvolex 35 mg capsule RxNorm: 3921599 TAKE 1 CAPSULE BY MOUTH THREE (3) TIMES DAILY 03/27/2018 04/21/2018 Inactive gabapentin 300 mg capsule RxNorm: 294708 1 CAPSULE(S) PO TID 03/25/2018 04/14/2018 Inactive hydrochlorothiazide 25 mg tablet RxNorm: 453105 1 Tablet(s) PO daily 03/14/2018 04/07/2018 Inactive Victoza 2-Marek 0.6 mg/0.1 mL (18 mg/3 mL) subcutaneous pen injector RxNorm: 074088 Milligram(s) INJECT 1.8 MG SUB-Q ONCE DAILY 02/27/2018 08/20/2019 Active qty sufficient atorvastatin 20 mg tablet RxNorm: 290150 1 Tablet(s) PO daily 02/27/2018 05/22/2019 Active Cymbalta 60 mg capsule,delayed release RxNorm: 036325 TAKE 1 CAPSULE BY MOUTH DAILY 02/27/2018 02/26/2018 Inactive Cymbalta 60 mg capsule,delayed release RxNorm: 532553 1 Capsule(s) PO daily TAKE 1 CAPSULE BY MOUTH DAILY 02/27/2018 07/14/2018 Inactive gabapentin 300 mg capsule RxNorm: 130950 1 Capsule(s) PO TID 02/27/2018 03/24/2018 Inactive Xanax 1 mg tablet RxNorm: 178176 1-2 Tablet(s) PO QHS as needed insomnia 02/27/2018 05/27/2018 Inactive meloxicam 7.5 mg tablet RxNorm: 784904 1 Tablet(s) PO daily 1 TABLET(S) PO DAILY 02/27/2018 04/14/2018 Inactive Ambien 10 mg tablet RxNorm: 709901 1 Tablet(s) PO QHS as needed insomnia 02/27/2018 05/25/2018 Inactive atorvastatin 20 mg tablet RxNorm: 002217 1 Tablet(s) PO daily 02/05/2018 02/26/2018 Inactive atorvastatin 20 mg tablet RxNorm: 036111 1 Tablet(s) PO daily 02/05/2018 02/04/2018 Inactive meloxicam 7.5 mg tablet RxNorm: 801682 1 TABLET(S) PO DAILY 02/01/2018 02/26/2018 Inactive oxycodone 15 mg tablet RxNorm: 2967349 1 Tablet(s) PO QID as needed 01/07/2018 02/19/2018 Inactive lactulose 20 gram/30 mL oral solution RxNorm: 443828 15-30 Milliliter(s) PO BID as needed 12/31/2017 02/20/2018 Inactive meloxicam 7.5 mg tablet RxNorm: 166108 1 TABLET(S) PO DAILY 12/13/2017 01/31/2018 Inactive Zorvolex 35 mg capsule RxNorm: 9552086 1 Capsule(s) PO TID 12/13/2017 02/20/2018 Inactive Ambien 10 mg tablet RxNorm: 091991 1 Tablet(s) PO QHS as needed insomnia 12/04/2017 02/26/2018 Inactive oxycodone 15 mg tablet RxNorm: 3952461 1 Tablet(s) PO QID as needed 12/04/2017 01/06/2018 Inactive prednisone 20 mg tablet RxNorm: 042072 2 Tablet(s) PO daily 12/04/2017 12/08/2017 Inactive Victoza 2-Marek 0.6 mg/0.1 mL (18 mg/3 mL) subcutaneous pen injector RxNorm: 130780 Milligram(s) INJECT 1.8 MG SUB-Q ONCE DAILY 11/20/2017 02/26/2018 Inactive meloxicam 7.5 mg tablet RxNorm: 423401 1 Tablet(s) PO daily 11/20/2017 12/12/2017 Inactive phentermine 37.5 mg tablet RxNorm: 888642 1 Tablet(s) PO daily 11/20/2017 12/19/2017 Inactive Ambien 10 mg tablet RxNorm: 352479 1 Tablet(s) PO QHS as needed insomnia 11/20/2017 12/18/2017 Inactive Xanax 1 mg tablet RxNorm: 921187 1.5 Tablet(s) PO QHS as needed insomnia 11/20/2017 02/26/2018 Inactive hydrocodone 7.5 mg-acetaminophen 325 mg tablet RxNorm: 753741 1 Tablet(s) PO TID as needed 11/16/2017 01/06/2018 Inactive Cymbalta 60 mg capsule,delayed release RxNorm: 109992 TAKE 1 CAPSULE BY MOUTH DAILY 11/02/2017 02/26/2018 Inactive Xanax 1 mg tablet RxNorm: 531073 1 Tablet(s) PO BID PRN as needed anxiety 10/04/2017 11/19/2017 Inactive Victoza 2-Marek 0.6 mg/0.1 mL (18 mg/3 mL) subcutaneous pen injector RxNorm: 122363 INJECT 1.8 MG SUB-Q ONCE DAILY 10/04/2017 11/19/2017 Inactive hydrocodone 7.5 mg-acetaminophen 325 mg tablet RxNorm: 162841 1 Tablet(s) PO TID as needed 09/17/2017 11/15/2017 Inactive hydrocodone 7.5 mg-acetaminophen 325 mg tablet RxNorm: 965409 1 Tablet(s) PO TID as needed 09/10/2017 09/16/2017 Inactive prednisone 10 mg tablet RxNorm: 769592 Tablet(s) PO 09/10/2017 11/13/2017 Inactive 6,5,4,3,2,1 Zorvolex 35 mg capsule RxNorm: 2754279 1 Capsule(s) PO TID 09/07/2017 11/13/2017 Inactive Ambien 10 mg tablet RxNorm: 203923 1 Tablet(s) PO QHS as needed insomnia 08/29/2017 11/19/2017 Inactive Zorvolex 35 mg capsule RxNorm: 8306111 1 Capsule(s) PO TID 08/28/2017 09/06/2017 Inactive Zorvolex 35 mg capsule RxNorm: 5015076 1 Capsule(s) PO TID 08/13/2017 08/27/2017 Inactive Zorvolex 35 mg capsule RxNorm: 3366188 1 Capsule(s) PO TID 08/13/2017 08/12/2017 Inactive prednisone 20 mg tablet RxNorm: 567285 2 Tablet(s) PO daily 07/31/2017 08/04/2017 Inactive hydrocodone 7.5 mg-acetaminophen 325 mg tablet RxNorm: 047553 1 Tablet(s) PO TID as needed 07/31/2017 09/09/2017 Inactive Zorvolex 35 mg capsule RxNorm: 8500946 1 Capsule(s) PO TID as needed 07/31/2017 11/13/2017 Inactive ceftriaxone 500 mg solution for injection RxNorm: 0173896 1 Milliliter(s) Inj 06/27/2017 06/27/2017 Inactive Keflex 500 mg capsule RxNorm: 010114 1 Capsule(s) PO TID 06/27/2017 07/03/2017 Inactive Ambien 10 mg tablet RxNorm: 526234 1 Tablet(s) PO daily 05/29/2017 08/25/2017 Inactive tramadol 50 mg tablet RxNorm: 064365 1 Tablet(s) PO TID as needed 05/29/2017 07/27/2017 Inactive Xanax 1 mg tablet RxNorm: 162700 1 Tablet(s) PO BID PRN as needed anxiety 05/21/2017 10/03/2017 Inactive alprazolam 1 mg tablet RxNorm: 959349 1 Tablet(s) PO BID as needed 05/21/2017 06/19/2017 Inactive Celebrex 200 mg capsule RxNorm: 330001 1 CAPSULE(S) PO BID 05/04/2017 11/05/2017 Inactive prednisone 20 mg tablet RxNorm: 513091 2 Tablet(s) PO daily 04/20/2017 04/24/2017 Inactive Ambien 10 mg tablet RxNorm: 697528 Tablet(s) PO 04/20/2017 05/28/2017 Inactive hydrocodone 5 mg-acetaminophen 325 mg tablet RxNorm: 321357 1 Tablet(s) PO QID as needed 04/20/2017 08/01/2017 Inactive Cymbalta 60 mg capsule,delayed release RxNorm: 005239 1 Capsule(s) PO daily 04/20/2017 02/26/2018 Inactive Victoza 2-Marek 0.6 mg/0.1 mL (18 mg/3 mL) subcutaneous pen injector RxNorm: 660317 INJECT 1.8 MG SUB-Q ONCE DAILY 03/26/2017 09/21/2017 Inactive diazepam 2 mg tablet RxNorm: 521314 1 Tablet(s) PO QHS as needed insomnia 01/28/2017 05/07/2017 Inactive Victoza 2-Marek 0.6 mg/0.1 mL (18 mg/3 mL) subcutaneous pen injector RxNorm: 114822 1.8 Milligram(s) SQ daily 01/26/2017 03/25/2017 Inactive dispense quantity sufficient Tussionex Pennkinetic ER 10 mg-8 mg/5 mL suspension,extended release RxNorm: 2305897 5 Milliliter(s) PO BID 01/11/2017 01/15/2017 Inactive Xanax 1 mg tablet RxNorm: 039700 1 Tablet(s) PO BID PRN as needed anxiety 01/11/2017 05/20/2017 Inactive Zithromax Z-Marek 250 mg tablet RxNorm: 043558 1 Tablet(s) PO UD 01/11/2017 01/15/2017 Inactive zpack albuterol sulfate 2.5 mg/3 mL (0.083 %) solution for nebulization RxNorm: 277723 3 Milliliter(s) INH UD 01/11/2017 11/13/2017 Inactive prednisone 20 mg tablet RxNorm: 010408 2 Tablet(s) PO daily 01/11/2017 01/15/2017 Inactive Kenalog 40 mg/mL suspension for injection RxNorm: 2584805 1.5 Milliliter(s) Inj 01/11/2017 01/11/2017 Inactive Celebrex 200 mg capsule RxNorm: 260534 1 Capsule(s) PO BID 11/30/2016 02/27/2017 Inactive Ambien 5 mg tablet RxNorm: 511639 1 Tablet(s) PO HS PRN 11/30/2016 08/07/2017 Inactive trazodone 50 mg tablet RxNorm: 145835 1/2 to 1 Tablet(s) PO QHS 10/13/2016 10/12/2016 Inactive trazodone 50 mg tablet RxNorm: 317961 1/2 to 1 Tablet(s) PO QHS 10/13/2016 11/29/2016 Inactive Belsomra 10 mg tablet RxNorm: 6367830 1 Tablet(s) PO QHS 09/28/2016 11/29/2016 Inactive may increase to 20mg if 10mg not effective Cymbalta 60 mg capsule,delayed release RxNorm: 681685 1 Capsule(s) PO daily 08/24/2016 03/21/2017 Inactive Xanax 1 mg tablet RxNorm: 356066 1 Tablet(s) PO BID PRN as needed anxiety 08/24/2016 01/10/2017 Inactive Victoza 2-Marek 0.6 mg/0.1 mL (18 mg/3 mL) subcutaneous pen injector RxNorm: 340344 Milligram(s) SQ 08/24/2016 08/23/2016 Inactive Victoza 2-Marek 0.6 mg/0.1 mL (18 mg/3 mL) subcutaneous pen injector RxNorm: 724655 1.8 Milligram(s) SQ 08/24/2016 01/25/2017 Inactive Vitamin D2 50,000 unit capsule RxNorm: 457119 1 Capsule(s) PO QW 07/13/2016 10/10/2016 Inactive Cymbalta 30 mg capsule,delayed release RxNorm: 122664 1 Capsule(s) PO daily 07/13/2016 08/23/2016 Inactive Belviq XR 20 mg tablet,extended release RxNorm: 0312138 1 Tablet(s) PO daily 05/30/2016 05/29/2016 Inactive prednisone 20 mg tablet RxNorm: 261843 2 Tablet(s) PO daily 05/30/2016 06/03/2016 Inactive prednisone 20 mg tablet RxNorm: 523272 2 Tablet(s) PO daily 05/30/2016 05/29/2016 Inactive Belviq XR 20 mg tablet,extended release RxNorm: 0438282 1 Tablet(s) PO daily 05/30/2016 06/28/2016 Inactive cyclobenzaprine 5 mg tablet RxNorm: 954890 1-2 Tablet(s) PO TID as needed 05/19/2016 05/23/2016 Inactive metoprolol succinate ER 25 mg tablet,extended release 24 hr RxNorm: 587464 1 Tablet(s) PO QPM 04/10/2016 04/13/2016 Inactive metoprolol succinate ER 25 mg tablet,extended release 24 hr RxNorm: 243583 1 Tablet(s) PO QPM 04/10/2016 04/09/2016 Inactive escitalopram 10 mg tablet RxNorm: 055797 1 Tablet(s) PO daily 03/16/2016 07/12/2016 Inactive estradiol 1 mg tablet RxNorm: 914392 1 Tablet(s) PO every other day 03/16/2016 05/15/2016 Inactive Kenalog 40 mg/mL suspension for injection RxNorm: 5583676 Milliliter(s) Inj 02/28/2016 02/28/2016 Inactive Zithromax Z-Marek 250 mg tablet RxNorm: 345465 1 Tablet(s) PO UD 02/28/2016 03/03/2016 Inactive zpack Lexapro 10 mg tablet RxNorm: 932178 1 Tablet(s) PO daily 09/27/2015 02/27/2016 Inactive Lexapro 10 mg tablet RxNorm: 636647 1 Tablet(s) PO daily 08/30/2015 09/26/2015 Inactive Vimovo 500 mg-20 mg tablet,immediate and delay release RxNorm: 344217 1 Tablet(s) PO BID as needed for pain 08/30/2015 09/26/2015 Inactive azithromycin 250 mg tablet RxNorm: 119750 1 Tablet(s) PO UD 2 pills on day #1, then one pill daily x 4 days 07/15/2015 01/12/2016 Inactive hydrocodone 10 mg-acetaminophen 325 mg tablet RxNorm: 118926 1 Tablet(s) PO QID 06/16/2015 01/12/2016 Inactive pramipexole 0.5 mg tablet RxNorm: 021527 1 Tablet(s) PO QPM 06/16/2015 07/14/2015 Inactive Celebrex 200 mg capsule RxNorm: 312194 1 Capsule(s) PO daily 05/03/2015 05/02/2015 Inactive Celebrex 200 mg capsule RxNorm: 635610 1 Capsule(s) PO daily 05/03/2015 01/12/2016 Inactive hydrocodone 7.5 mg-acetaminophen 325 mg tablet RxNorm: 770761 1 Tablet(s) PO Q6 PRN 05/03/2015 06/15/2015 Inactive Mobic 15 mg tablet RxNorm: 021648 1 Tablet(s) PO daily 04/02/2015 05/02/2015 Inactive hydrocodone 7.5 mg-acetaminophen 325 mg tablet RxNorm: 200298 1 Tablet(s) PO Q6 PRN 04/02/2015 05/02/2015 Inactive hydrocodone 5 mg-acetaminophen 325 mg tablet RxNorm: 137246 1 Tablet(s) PO Q6 as needed 12/11/2014 04/01/2015 Inactive Pennsaid 1.5 % topical drops RxNorm: 549043 40 Drop(s) TOP QID as needed 12/07/2014 02/04/2015 Inactive Apply 40 drops to each knee joint 4 times per day as needed for osteoarthritis pain estradiol 1 mg tablet RxNorm: 017869 1 Tablet(s) PO QHS No Start Date 03/15/2016 Inactive Xanax 0.5 mg tablet RxNorm: 674154 1 Tablet(s) PO Q6 as needed anxiety No Start Date 08/23/2016 Inactive Tylenol Extra Strength 500 mg tablet RxNorm: 705895 3 Tablet(s) PO BID after breakfast and after lunch No Start Date 01/12/2016 Inactive lactulose 20 gram/30 mL oral solution RxNorm: 645378 15-30 Milliliter(s) PO BID as needed No Start Date 12/30/2017 Inactive hydrocodone 5 mg-acetaminophen 325 mg tablet RxNorm: 090328 1 Tablet(s) PO Q6 as needed No Start Date 12/10/2014 Inactive Phenergan-Codeine syrup RxNorm: 5-10 Milliliter(s) PO QID as needed No Start Date 11/13/2017 Inactive ibuprofen 200 mg capsule RxNorm: 228512 4 Capsule(s) PO QID as needed No Start Date 04/01/2015 Inactive Medication Administered Medication Codes Instructions Start Date Status Kenalog 40 mg/mL suspension for injection RxNorm: 7876752 Milliliter 07/17/2018 No longer Active ceftriaxone 500 mg solution for injection RxNorm: 6620246 1Milliliter 06/27/2017 No longer Active Kenalog 40 mg/mL suspension for injection RxNorm: 6751639 1.5Milliliter 01/11/2017 No longer Active Kenalog 40 mg/mL suspension for injection RxNorm: 7318010 Milliliter 02/28/2016 No longer Active Immunizations Vaccine [...] Item Item Code Result Date Influenza A+B Fnb364 Influ A+B Pos Influenza A 07/17/2018 %Hba1C Txw767 % HbA1c 87085- 6 6.7 % 11/20/2017 %Hba1C Oxs153 Gluc Ave 146 mg/dL 11/20/2017 Free T4 Rbo204 FREE T4 0.76 ng/dL 05/21/2017 Tsh Ord6 hTSH II 1.27 uIU/mL 05/21/2017 Comp Metabolic Hkh576 NA 140 mEq/L 05/21/2017 Comp Metabolic Wdi651 K 3.9 mEq/L 05/21/2017 Comp Metabolic Nnv399 CL 101 mEq/L 05/21/2017 Comp Metabolic Pjr737 CO2 28.0 mEq/L 05/21/2017 Comp Metabolic Gcn857 ANION GAP 15 05/21/2017 Comp Metabolic Coj939 GLUCOSE 155 mg/dL 05/21/2017 Comp Metabolic Sax531 Creat 0.7 mg/dL 05/21/2017 Comp Metabolic Emu764 eGFR 87 ml/min/1.73m2 05/21/2017 Comp Metabolic Ohy132 BUN 16 mg/dL 05/21/2017 Comp Metabolic Nan719 B/C Ratio 21.6 Ratio 05/21/2017 Comp Metabolic Pdi532 CALCIUM 9.4 mg/dL 05/21/2017 Comp Metabolic Iyq287 ALK PHOS 132 U/L 05/21/2017 Comp Metabolic Wek249 AST(SGOT) 16 U/L 05/21/2017 Comp Metabolic Hvh812 ALT(SGPT) 20 U/L 05/21/2017 Comp Metabolic Zmv256 BILI T 0.4 mg/dL 05/21/2017 Comp Metabolic Izr413 ALBUMIN 4.0 g/dL 05/21/2017 Comp Metabolic Vcf570 TPRO 6.7 g/dL 05/21/2017 Comp Metabolic Dpe689 GLOB 2.7 g/dL 05/21/2017 Comp Metabolic Scs134 A/G Ratio 1.5 Ratio 05/21/2017 Comp Metabolic Jyg511 Osmo 284 mOsmo 05/21/2017 Cbc With Differential [...] 28.9 pg 05/21/2017 Cbc With Differential Ord2 [place]% 5.5 % 05/21/2017 Cbc With Differential Ord2 [...] 2.65 K/ul 05/21/2017 Cbc With Differential Ord2 [place] ABS# 0.8 K/ul 05/21/2017 Cbc With Differential Ord2 Eos ABS# 0.1 K/ul 05/21/2017 Cbc With Differential Ord2 Baso ABS# 0.0 K/ul 05/21/2017 Estrogens Total 151844 ESTROGENS, TOTAL 54 pg/mL 05/24/2016 Magnesium Ord90 Mag 1.8 mg/dL 05/19/2016 Tsh Ord6 hTSH II 1.56 uIU/mL 05/19/2016 Progesterone Prog 0.03 ng/mL 05/19/2016 Comp Metabolic Nqn705 NA 136 mEq/L 05/19/2016 Comp Metabolic Kgd699 K 4.3 mEq/L 05/19/2016 Comp Metabolic Obm612 CL 100 mEq/L 05/19/2016 Comp Metabolic Pmq536 CO2 28.0 mEq/L 05/19/2016 Comp Metabolic Ouv917 ANION GAP 12 05/19/2016 Comp Metabolic Ool995 GLUCOSE 138 mg/dL 05/19/2016 Comp Metabolic Oms444 Creat 0.7 mg/dL 05/19/2016 Comp Metabolic Fqy655 eGFR 89 ml/min/1.73m2 05/19/2016 Comp Metabolic Dde449 BUN 15 mg/dL 05/19/2016 Comp Metabolic Kps946 B/C Ratio 20.5 Ratio 05/19/2016 Comp Metabolic Yha036 CALCIUM 9.7 mg/dL 05/19/2016 Comp Metabolic Yge413 ALK PHOS 106 U/L 05/19/2016 Comp Metabolic Lmo495 AST(SGOT) 21 U/L 05/19/2016 Comp Metabolic Vhg908 ALT(SGPT) 24 U/L 05/19/2016 Comp Metabolic Yut365 BILI T 0.4 mg/dL 05/19/2016 Comp Metabolic Deq662 ALBUMIN 4.1 g/dL 05/19/2016 Comp Metabolic Uny945 TPRO 7.1 g/dL 05/19/2016 Comp Metabolic Fuj427 GLOB 3.0 g/dL 05/19/2016 Comp Metabolic Rpi866 A/G Ratio 1.4 Ratio 05/19/2016 Comp Metabolic Qtu087 Osmo 275 mOsmo 05/19/2016 Cbc With Differential [...] 28.5 pg 05/19/2016 Cbc With Differential Ord2 [place]% 6.5 % 05/19/2016 Cbc With Differential Ord2 [...] 2.33 K/ul 05/19/2016 Cbc With Differential Ord2 [place] ABS# 0.6 K/ul 05/19/2016 Cbc With Differential Ord2 Eos ABS# 0.1 K/ul 05/19/2016 Cbc With Differential Ord2 Baso ABS# 0.0 K/ul 05/19/2016 C RAP A SC 0118233 Strep A Negative 02/28/2016 Tsh Ord6 hTSH [...] 26.2 pg 08/16/2015 Cbc With Differential Ord2 [place]% 7.1 % 08/16/2015 Cbc With Differential Ord2 [...] 2.32 K/ul 08/16/2015 Cbc With Differential Ord2 [place] ABS# 0.6 K/ul 08/16/2015 Cbc With Differential Ord2 Eos ABS# 0.1 K/ul 08/16/2015 Cbc With Differential Ord2 Baso ABS# 0.0 K/ul 08/16/2015 Cbc With Differential Ord2 New Analyzer Notice Please note new ref ranges starting 05-26-2015 due to implemntation of new five part differential hematolgy analyzer. 08/16/2015 Comp Metabolic Bkb226 NA 132 mEq/L 08/16/2015 Comp Metabolic Mem390 K 3.6 mEq/L 08/16/2015 Comp Metabolic Dyo466 CL 99 mEq/L 08/16/2015 Comp Metabolic Gwf949 CO2 23.0 mEq/L 08/16/2015 Comp Metabolic Rrz538 ANION GAP 14 08/16/2015 Comp Metabolic Zjs401 GLUCOSE 101 mg/dL 08/16/2015 Comp Metabolic Luo887 Creat 0.7 mg/dL 08/16/2015 Comp Metabolic Mmt685 eGFR 100 ml/min/1.73m2 08/16/2015 Comp Metabolic Wqz485 BUN 10 mg/dL 08/16/2015 Comp Metabolic Kcp423 B/C Ratio 15.2 Ratio 08/16/2015 Comp Metabolic Wrn938 CALCIUM 9.3 mg/dL 08/16/2015 Comp Metabolic Vjn263 ALK PHOS 100 U/L 08/16/2015 Comp Metabolic Nde765 AST(SGOT) 14 U/L 08/16/2015 Comp Metabolic Hnn909 ALT(SGPT) 11 U/L 08/16/2015 Comp Metabolic Ngj533 BILI T 0.3 mg/dL 08/16/2015 Comp Metabolic Tis943 ALBUMIN 3.9 g/dL 08/16/2015 Comp Metabolic Fjs375 TPRO 7.1 g/dL 08/16/2015 Comp Metabolic Cvz903 GLOB 3.2 g/dL 08/16/2015 Comp Metabolic Gzd099 A/G Ratio 1.2 Ratio 08/16/2015 Comp Metabolic Pjn998 Osmo 264 mOsmo 08/16/2015 Lipid Ord30 CHOL 209 mg/dL 12/03/2014 Lipid Ord30 HDL 42.0 mg/dl 12/03/2014 Lipid Ord30 TRIG 219 mg/dL 12/03/2014 Lipid Ord30 LDL 123 mg/dL 12/03/2014 Lipid Ord30 C/HDL 5.0 Ratio 12/03/2014 Comp Metabolic Zpc960 NA 132 mEq/L 12/03/2014 Comp Metabolic Skz430 K 4.0 mEq/L 12/03/2014 Comp Metabolic Pze186 CL 101 mEq/L 12/03/2014 Comp Metabolic Lou928 CO2 22.0 mEq/L 12/03/2014 Comp Metabolic Gse058 ANION GAP 13 12/03/2014 Comp Metabolic Lij801 GLUCOSE 123 mg/dL 12/03/2014 Comp Metabolic Qgw586 Creat 0.7 mg/dL 12/03/2014 Comp Metabolic Nxq065 eGFR 97 ml/min/1.73m2 12/03/2014 Comp Metabolic Ebq304 BUN 10 mg/dL 12/03/2014 Comp Metabolic Xpf360 B/C Ratio 14.7 Ratio 12/03/2014 Comp Metabolic Dxg502 CALCIUM 9.2 mg/dL 12/03/2014 Comp Metabolic Hmk250 ALK PHOS 88 U/L 12/03/2014 Comp Metabolic Eda691 AST(SGOT) 18 U/L 12/03/2014 Comp Metabolic Gyi249 ALT(SGPT) 17 U/L 12/03/2014 Comp Metabolic Qze323 BILI T 0.5 mg/dL 12/03/2014 Comp Metabolic Pkj843 ALBUMIN 3.9 g/dL 12/03/2014 Comp Metabolic Kvb517 TPRO 6.8 g/dL 12/03/2014 Comp Metabolic Ykv093 GLOB 2.9 g/dL 12/03/2014 Comp Metabolic Mfj371 A/G Ratio 1.3 Ratio 12/03/2014 Comp Metabolic Dnw173 Osmo 265 mOsmo 12/03/2014 Tsh Ord6 hTSH II 1.13 uIU/mL 12/03/2014 D-Dimer D-DIMER 168 NG/ML 12/03/2014 D-Dimer [id number] COMMENT 12/03/2014 Cbc With Differential Ord2 WBC [...] Procedure Codes Date THER/PROPH/DIAG INJ SC/IM CPT-4: 88226 07/17/2018 TRIAMCINOLONE ACET INJ NOS CPT-4: J3301 07/17/2018 THER/PROPH/DIAG INJ SC/IM CPT-4: 25467 06/27/2017 ROCEPHIN, PER 250 MG CPT- 4: J0696 06/27/2017 IMMUNIZATION ADMIN CPT- 4: 20263 03/16/2017 FLU VAC NO PRSV 4 FLETCHER 3 YRS+ CPT-4: 00143 03/16/2017 Pneumococcal Polysaccharide Vaccine, 23-Valent, Ad CPT-4: 80369 03/16/2017 IMMUNIZATION ADMIN EACH ADD CPT-4: 75021 03/16/2017 TRIAMCINOLONE ACET INJ NOS CPT-4: J3301 01/11/2017 TRIAMCINOLONE ACET INJ NOS CPT-4: J3301 02/28/2016 Vital Signs Date Vital 08/26/2018 Blood Pressure 1: 126/72 Code: 8480-6 Heart Rate 1: 68 bpm Height: 5'6" SpO2: 94% Weight: 08/12/2018 Blood Pressure 1: 124/68 Code: 8480-6 BMI: 38.4 Code: 70558-1 Heart Rate 1: 79 bpm Height: 5'6" SpO2: 94% Weight: 238 lbs 07/17/2018 Blood Pressure 1: 126/72 Code: 8480-6 BMI: 38.6 Code: 37614-7 Heart Rate 1: 85 bpm Height: 5'6" SpO2: 95% Temperature: 36.9 (C) / 98.4 (F) Weight: 239 lbs 07/04/2018 Blood Pressure 1: 132/76 Code: 8480-6 Heart Rate 1: 80 bpm Height: SpO2: 97% Weight: 06/19/2018 Blood Pressure 1: 124/74 Code: 8480-6 BMI: 38.6 Code: 56213-1 Heart Rate 1: 85 bpm Height: 5'6" SpO2: 95% Weight: 239 lbs 04/24/2018 Blood Pressure 1: 128/74 Code: 8480-6 BMI: 37.8 Code: 18422-2 Heart Rate 1: 107 bpm Height: 5'6" SpO2: 98% Weight: 234 lbs 04/17/2018 Blood Pressure 1: 120/64 Code: 8480-6 BMI: 37.8 Code: 97643-1 Heart Rate 1: 84 bpm Height: 5'6" SpO2: 96% Weight: 234 lbs 03/14/2018 Blood Pressure 1: 140/82 Code: 8480-6 BMI: 37.8 Code: 99667-3 Heart Rate 1: 85 bpm Height: 5'6" SpO2: 98% Weight: 234 lbs 02/27/2018 Blood Pressure 1: 142/68 Code: 8480-6 BMI: 36.5 Code: 78406-3 Heart Rate 1: 84 bpm Height: 5'6" SpO2: 97% Weight: 226 lbs 12/19/2017 Blood Pressure 1: 130/86 Code: 8480-6 BMI: 35.7 Code: 84558-1 Heart Rate 1: 94 bpm Height: 5'6" Weight: 221 lbs 12/04/2017 Blood Pressure 1: 138/78 Code: 8480-6 BMI: 36.6 Code: 57796-9 Heart Rate 1: 94 bpm Height: 5'6" SpO2: 98% Weight: 227 lbs 11/20/2017 Weight: 233 lbs 09/10/2017 Blood Pressure 1: 132/86 Code: 8480-6 Heart Rate 1: 86 bpm Height: Weight: 08/14/2017 Blood Pressure 1: 120/74 Code: 8480-6 BMI: 33.9 Code: 57344-6 Heart Rate 1: 92 bpm Height: 5'6" SpO2: 94% Weight: 210 lbs 07/31/2017 Blood Pressure 1: 140/80 Code: 8480-6 BMI: 33.9 Code: 95172-3 Heart Rate 1: 96 bpm Height: 5'6" SpO2: 97% Weight: 210 lbs 06/27/2017 Blood Pressure 1: 128/80 Code: 8480-6 BMI: 33.9 Code: 52099-2 Heart Rate 1: 85 bpm Height: 5'6" [...] 1: 126/74 Code: 8480-6 BMI: 39.9 Code: 38522-7 Heart Rate 1: 79 bpm Height: 5'6" SpO2: 97% Weight: 247 lbs 01/26/2017 Blood Pressure 1: 132/74 Code: 8480-6 BMI: 37.8 Code: 24616-6 Heart Rate 1: 74 bpm Height: 5'6" SpO2: 97% Weight: 234 lbs 01/11/2017 Blood Pressure 1: 118/68 Code: 8480-6 BMI: 38.7 Code: 70660-5 Heart Rate 1: 91 bpm Height: 5'6" SpO2: 96% Weight: 240 lbs 11/30/2016 Blood Pressure 1: 132/76 Code: 8480-6 BMI: 38.3 Code: 49049-9 Heart Rate 1: 71 bpm Height: 5'6" SpO2: 92% Weight: 237 lbs 09/28/2016 Blood Pressure 1: 122/72 Code: 8480-6 BMI: 39.1 Code: 56133-0 Heart Rate 1: 88 bpm Height: 5'6" SpO2: 94% Weight: 242 lbs 08/24/2016 Blood Pressure 1: 130/87 Code: 8480-6 BMI: 41.5 Code: 84049-6 Heart Rate 1: 95 bpm Height: 5'6" Respiratory Rate: 16 bpm SpO2: 98% Temperature: 36.9 (C) / 98.5 (F) Weight: 257 lbs 07/13/2016 Blood Pressure 1: 132/84 Code: 8480-6 BMI: 42.0 Code: 29915-8 Heart Rate 1: 73 bpm Height: 5'6" SpO2: 97% Weight: 260 lbs 05/19/2016 Blood Pressure 1: 138/76 Code: 8480-6 BMI: 40.8 Code: 48955-3 Heart Rate 1: 80 bpm Height: 5'6" SpO2: 98% Weight: 253 lbs 03/16/2016 Blood Pressure 1: 122/70 Code: 8480-6 BMI: 40.4 Code: 06856-7 Heart Rate 1: 72 bpm Height: 5'6" SpO2: 98% Weight: 250 lbs 02/28/2016 Blood Pressure 1: 136/86 Code: 8480-6 BMI: 40.2 Code: 24653-8 Heart Rate 1: 87 bpm Height: 5'6" SpO2: 96% Temperature: 36.3 (C) / 97.3 (F) Weight: 249 lbs 01/13/2016 Blood Pressure 1: 120/76 Code: 8480-6 BMI: 40.4 Code: 43844-4 Heart Rate 1: 68 bpm Height: 5'6" SpO2: 97% Weight: 250 lbs 09/27/2015 Blood Pressure 1: 112/70 Code: 8480-6 BMI: 38.4 Code: 82703-2 Heart Rate 1: 76 bpm Height: 5'6" SpO2: 98% Weight: 238 lbs 08/30/2015 Blood Pressure 1: 144/82 Code: 8480-6 BMI: 39.5 Code: 64006-7 Heart Rate 1: 82 bpm Height: 5'6" SpO2: 97% Weight: 245 lbs 08/16/2015 Blood Pressure 1: 140/72 Code: 8480-6 BMI: 38.9 Code: 71742-0 Heart Rate 1: 72 bpm Height: 5'6" SpO2: 97% Weight: 241 lbs 07/15/2015 Blood Pressure 1: 128/80 Code: 8480-6 BMI: 39.3 Code: 79478-3 Heart Rate 1: 86 bpm Height: 5'6" SpO2: 98% Weight: 243 lbs 8 oz 06/16/2015 Blood Pressure 1: 146/86 Code: 8480-6 BMI: 39.6 Code: 46960-8 Heart Rate 1: 76 bpm Height: 5'6" SpO2: 97% Weight: 245 lbs 8 oz 04/02/2015 Blood Pressure 1: 132/86 Code: 8480-6 BMI: 40.7 Code: 59019-2 Heart Rate 1: 94 bpm Height: 5'6" SpO2: 98% Weight: 252 lbs 12/02/2014 Blood Pressure 1: 122/90 Code: 8480-6 BMI: 41.6 Code: 44332-5 Heart Rate 1: 77 bpm Height: 5'6" [...] mellitus with hyperglycemia[ICD10: E11.65] Petra Trejo MD, [facility] CPT-4: 47647 08/26/2018 80029 EST. PATIENT, LEVEL III Diagnosis: Type 2 diabetes mellitus without complications[ICD10: E11.9] Petra Trejo MD, [facility] CPT-4: 22741 08/12/2018 28437 EST. PATIENT, LEVEL III Diagnosis: Acute laryngopharyngitis[ICD10: J06.0] Diagnosis: Cough[ICD10: R05] Diagnosis: Other allergic rhinitis[ICD10: J30.89] Diagnosis: Right upper quadrant pain[ICD10: R10.11] Petra Trejo MD, [facility] CPT-4: 75590 07/17/2018 53997 EST. PATIENT, LEVEL III Diagnosis: Generalized anxiety disorder[ICD10: F41.1] Diagnosis: Major depressive disorder, single episode, moderate[ICD10: F32.1] Petra Trejo MD, [facility] CPT-4: 87770 07/04/2018 45222 EST. PATIENT, LEVEL IV Diagnosis: Generalized anxiety disorder[ICD10: F41.1] Diagnosis: Major depressive disorder, single episode, moderate[ICD10: F32.1] Diagnosis: Other insomnia[ICD10: G47.09] Petra Trejo MD, [facility] CPT-4: 59119 06/19/2018 50753 EST. PATIENT, LEVEL IV Diagnosis: Right upper quadrant pain[ICD10: R10.11] Diagnosis: Other chest pain[ICD10: R07.89] Petra Trejo MD, [facility] CPT-4: 52037 04/24/2018 61306 EST. PATIENT, LEVEL III Diagnosis: Generalized anxiety disorder[ICD10: F41.1] Diagnosis: Major depressive disorder, recurrent, mild[ICD10: F33.0] Diagnosis: Essential (primary) hypertension[ICD10: I10] Diagnosis: Type 2 diabetes mellitus without complications[ICD10: E11.9] Petra Trejo MD, [facility] CPT-4: 99634 04/17/2018 66557 EST. PATIENT, LEVEL III Diagnosis: Localized edema[ICD10: R60.0] Diagnosis: Essential (primary) hypertension[ICD10: I10] Petra Trejo MD, [facility] CPT-4: 99801 03/14/2018 83819 EST. PATIENT, LEVEL III Diagnosis: Pain in left knee[ICD10: M25.562] Diagnosis: Other obesity due to excess calories[ICD10: E66.09] Diagnosis: Other insomnia[ICD10: G47.09] Diagnosis: Generalized anxiety disorder[ICD10: F41.1] Petra Trejo MD, [facility] CPT-4: 32557 02/27/2018 ([id number]) Miscellaneous no charge Diagnosis: Other obesity due to excess calories[ICD10: E66.09] Heidy Trejo MD, [facility] CPT-4: 97498 12/19/2017 33129 EST. PATIENT, LEVEL III Diagnosis: Pain in right foot[ICD10: M79.671] Diagnosis: Pain in right ankle and joints of right foot[ICD10: M25.571] Petra Trejo MD, [facility] CPT-4: 77007 12/04/2017 35881 EST. PATIENT, LEVEL III Diagnosis: Pain in left knee[ICD10: M25.562] Diagnosis: Type 2 diabetes mellitus without complications[ICD10: E11.9] Diagnosis: Other obesity due to excess calories[ICD10: E66.09] Petra Trejo MD, [facility] CPT-4: 71830 11/20/2017 11407 EST. PATIENT, LEVEL III Diagnosis: Pain in left knee[ICD10: M25.562] Petra Trejo MD, [facility] CPT-4: 95976 09/10/2017 10593 EST. PATIENT, LEVEL III Diagnosis: Encounter for follow-up examination after completed treatment for conditions other than malignant neoplasm[ICD10: Z09] Diagnosis: Pain in left knee[ICD10: M25.562] Petra Trejo MD, [facility] CPT-4: 94546 08/14/2017 43001 EST. PATIENT, LEVEL III Diagnosis: Pain in left knee[ICD10: M25.562] Petra Trejo MD, [facility] CPT-4: 52778 07/31/2017 09228 EST. PATIENT, LEVEL III Diagnosis: Acute laryngopharyngitis[ICD10: J06.0] Diagnosis: Other allergic rhinitis[ICD10: J30.89] Petra Trejo MD, [facility] CPT- 4: 77372 06/27/2017 92992 EST. PATIENT, LEVEL III Diagnosis: Ganglion, left hand[ICD10: M67.442] Diagnosis: Essential (primary) hypertension[ICD10: I10] Diagnosis: Generalized anxiety disorder[ICD10: F41.1] Diagnosis: Other insomnia[ICD10: G47.09] Petra Trejo MD, [facility] CPT-4: 01946 05/29/2017 70431 EST. PATIENT, LEVEL III Diagnosis: Essential (primary) hypertension[ICD10: I10] Diagnosis: Palpitations[ICD10: R00.2] Diagnosis: Generalized anxiety disorder[ICD10: F41.1] Petra Trejo MD, [facility] CPT-4: 25407 05/21/2017 99416 EST. PATIENT, LEVEL III Diagnosis: Pain in right foot[ICD10: M79.671] Petra Trejo MD, [facility] CPT-4: 45658 04/20/2017 58608 EST. PATIENT, LEVEL IV Diagnosis: Other insomnia[ICD10: G47.09] Diagnosis: Other skin changes[ICD10: R23.8] Petra Trejo MD, [facility] CPT-4: 40675 01/26/2017 27013 EST. PATIENT, LEVEL IV Diagnosis: Acute bronchitis due to other specified organisms[ICD10: J20.8] Petra Trejo MD, [facility] CPT-4: 25026 01/11/2017 ([id number]) 77325 EST. PATIENT, LEVEL IV Diagnosis: Essential (primary) hypertension[ICD10: I10] Diagnosis: Other insomnia[ICD10: G47.09] Diagnosis: Primary generalized (osteo)arthritis[ICD10: M15.0] Diagnosis: Other obesity due to excess calories[ICD10: E66.09] Claudette Trejo MD, [facility] CPT-4: 96503 11/30/2016 ([id number]) 37778 EST. PATIENT, LEVEL III Diagnosis: Other obesity due to excess calories[ICD10: E66.09] Diagnosis: Other insomnia[ICD10: G47.09] Diagnosis: Generalized anxiety disorder[ICD10: F41.1] Claudette Trejo MD, [facility] CPT-4: 57048 09/28/2016 ([id number]) 78312 EST. PATIENT, LEVEL IV Diagnosis: Generalized anxiety disorder[ICD10: F41.1] Diagnosis: Major depressive disorder, recurrent, mild[ICD10: F33.0] Diagnosis: Other obesity due to excess calories[ICD10: E66.09] Diagnosis: Other insomnia[ICD10: G47.09] Claudette Trejo MD, [facility] CPT-4: 98982 08/24/2016 ([id number]) 04549 EST. PATIENT, LEVEL III Diagnosis: Other obesity due to excess calories[ICD10: E66.09] Diagnosis: Major depressive disorder, recurrent, moderate[ICD10: F33.1] Diagnosis: Low back pain[ICD10: M54.5] Heidy Trejo MD, [facility] CPT-4: 94943 07/13/2016 09577 EST. PATIENT, LEVEL IV Diagnosis: Other muscle spasm[ICD10: M62.838] Diagnosis: Generalized anxiety disorder[ICD10: F41.1] Diagnosis: Major depressive disorder, recurrent, moderate[ICD10: F33.1] Diagnosis: Other insomnia[ICD10: G47.09] Petra Trejo MD, [facility] CPT-4: 19927 05/19/2016 ([id number]) 53374 EST. PATIENT, LEVEL III Diagnosis: Generalized anxiety disorder[ICD10: F41.1] Diagnosis: Major depressive disorder, recurrent, moderate[ICD10: F33.1] Heidy Trejo MD, [facility] CPT-4: 31191 03/16/2016 ([id number]) 93195 EST. PATIENT, LEVEL III Diagnosis: Streptococcal pharyngitis[ICD10: J02.0] Claudette Trejo MD, [facility] CPT-4: 22980 02/28/2016 ([id number]) 10132 EST. PATIENT, LEVEL III Diagnosis: Generalized anxiety disorder[ICD10: F41.1] Diagnosis: Other obesity due to excess calories[ICD10: E66.09] Heidy Trejo MD, [facility] CPT-4: 02643 01/13/2016 ([id number]) 84085 EST. PATIENT, LEVEL III Diagnosis: Generalized anxiety disorder[ICD10: F41.1] Diagnosis: Major depressive disorder, recurrent, unspecified[ICD10: F33.9] Heidy Trejo MD, [facility] CPT-4: 45154 09/27/2015 85959 EST. PATIENT, LEVEL IV Diagnosis: Chronic pain syndrome[ICD10: G89.4] Diagnosis: Other obesity due to excess calories[ICD10: E66.09] Diagnosis: Essential (primary) hypertension[ICD10: I10] Diagnosis: Generalized anxiety disorder[ICD10: F41.1] Diagnosis: Excessive and frequent menstruation with regular cycle[ICD10: N92.0] Diagnosis: Pain in right knee[ICD10: M25.561] Petra Trejo MD, [facility] CPT-4: 62161 08/30/2015 27697 EST. PATIENT, LEVEL IV Diagnosis: Palpitations[ICD10: R00.2] Diagnosis: Other obesity due to excess calories[ICD10: E66.09] Petra Trejo MD, [facility] CPT-4: 13697 08/16/2015 ([id number]) 53526 EST. PATIENT, LEVEL IV Diagnosis: Pain in right knee[ICD10: M25.561] Diagnosis: Primary generalized (osteo)arthritis[ICD10: M15.0] Diagnosis: Acute maxillary sinusitis, unspecified[ICD10: J01.00] Heidy Trejo MD, [facility] CPT-4: 57177 07/15/2015 ([id number]) 14543 EST. PATIENT, LEVEL IV Diagnosis: Primary generalized (osteo)arthritis[ICD10: M15.0] Diagnosis: Restless legs syndrome[ICD10: G25.81] Diagnosis: Chronic pain syndrome[ICD10: G89.4] Heidy Trejo MD, [facility] CPT- 4: 79602 06/16/2015 ([id number]) 59835 EST. PATIENT, LEVEL III Diagnosis: Primary generalized (osteo)arthritis[ICD10: M15.0] Diagnosis: Varicose veins of bilateral lower extremities with pain[ICD10: I83.813] [facility] CPT-4: 54408 04/02/2015 ([id number]) OFFICE VISIT, NEW - LEVEL 3 Diagnosis: Osteoarthritis[ICD9: 715.90] Diagnosis: ABNORMAL WEIGHT GAIN[ICD9: 783.1] Diagnosis: Superficial thrombophlebitis[ICD9: 451.9] [facility] CPT-4: 56644 12/02/2014 Plan of Care Planned Activity Notes [...] greater blood glucose control. 08/26/2018 Appointment: Petra Rivas: [address] [place], [place] [address] (30 min) [facility] 08/26/2018 Patient Education: Patient Medication Summary Completed 08/26/2018 Patient Education: Obesity Completed 08/26/2018 Patient Education: Diabetes Completed 08/26/2018 Care Plan: Urine Culture Pending 08/26/2018 Visit Plan: Diabetes Mellitus - Uncontrolled [...] greater blood glucose control. 08/12/2018 Appointment: Petra Rivas: [phone] [facility] (30 min) Complex 08/12/2018 Patient Education: Patient [...] indicated 07/17/2018 Appointment: Petra Rivas WPtel: [phone] [facility] (30 min) Complex 07/17/2018 Patient Education: Patient [...] medications. 07/04/2018 Appointment: Petra Rivas WPtel: [phone] [facility] (30 min) Complex 07/04/2018 Patient Education: [...] this patient. 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 04/17/2018 Appointment: [facility]ivas [facility]Ptel[phone] (15 min) Moderate 04/17/2018 Patient Education: [...] edema. 03/14/2018 Appointment: [facility]Ptel[phone] (15 min) Moderate 03/14/2018 Patient Education: [...] 02/27/2018 Appointment: Pet[facility]ivas WPtel: [phone] [place] (30 min) Complex 02/27/2018 Patient [...] improve. 12/04/2017 Appointment: [facility]ivas [facility]Ptel[phone] [facility] (15 min) Moderate 12/04/2017 Patient Education: [...] 11/20/2017 Appointment: Pet[facility]ivas WPtel: [phone] [place] (15 min) Moderate 11/20/2017 Patient [...] not improve. 09/10/2017 Appointment: Petra Rivas WPtel: [address] [place], [place] [phone] [place] (15 min) Moderate 09/10/2017 Patient Education: [...] not improve. 08/14/2017 Appointment: Petra Rivas WPtel: [facility][note 3]5 [facility] [place] (30 min) Complex 08/14/2017 Patient Education: Patient Medication Summary Completed 08/14/2017 Appointment: Petra Rivas WPtel: [facility]note 3][facility] [place] (15 min) Moderate 08/01/2017 Visit Plan: Knee pain - pt is to use RICE - Rest, Ice, Compression, Elevation - pt is to use crutches as directed - The pt is to use prn antiinflammatories to manage acute pain. The patient is to call the office if the pain is worsening or does not improve. 07/31/2017 Appointment: Petra Rivas WPtel: [address] [place], [place] [phone] [place] (30 min) Complex 07/31/2017 Patient Education: Patient Medication Summary Completed 07/31/2017 Care Plan: X-RAY EXAM OF KNEE 3 LOINC : 62615-9 Pending 07/31/2017 Visit Plan: URI - Pt [...] [facility][note 3]5 [facility] (15 min) Moderate 06/27/2017 Patient Education: Patient Medication Summary Completed 06/27/2017 Referral: Jignesh Quinn [facility] [place] Patient informed. Referral info faxed. Completed 06/13/2017 [...] [facility][note 3]5 [facility] (15 min) Moderate 05/29/2017 Patient Education: Patient Medication Summary Completed 05/29/2017 Care Plan: Referral Order SNOMED-CT : [id number] Pending 05/29/2017 Appointment: Petra Rivas WPtel: [facility][note 3]3 [facility] (15 min) Moderate 05/28/2017 Visit Plan: [...] [facility][note 3]5 [facility] (15 min) Moderate 05/21/2017 Patient Education: [...] [facility][note 3]5 [facility] (30 min) Complex 04/20/2017 Patient Education: Patient Medication Summary Completed 04/20/2017 Appointment: Petra Rivas WPtel: [address] [place], [place] [phone] (30 min) Complex 03/29/2017 Patient Education: Patient Medication Summary Completed 03/16/2017 Referral: Maycol Quijano Referral Initiated 02/08/2017 Care Plan: Referral Order SNOMED-CT : [id number] Pending 01/28/2017 Visit Plan: Insomnia - Pt [...] concerns. 01/26/2017 Appointment: Petra Rivas WPtel: [facility]note 3][facility] (30 min) Complex 01/26/2017 Patient Education: Patient [...] acutely worsen. 01/11/2017 Appointment: Petra Rivas WPtel: [phone] [facility] (15 min) Moderate 01/11/2017 Patient Education: [...] use. 11/30/2016 Appointment: Claudette Savage WPtel: [phone] (15 min) Moderate 11/30/2016 Patient Education: Patient Medication Summary Completed 11/30/2016 Patient Education: Obesity Completed 11/30/2016 Care Plan: BMI Above normal followup SELF-MGMT EDUC & TRAIN 1 PT Pending 11/30/2016 Visit Plan: Jzgkxey-lcolvlsgpf-xtqyipkt with increase in cymbalta- no changes Insomnia-RX for belsomra provided and instructed on use Obesity- patient down 15#-no changes-continue diet/exercise-follow up in 2 months 09/28/2016 Appointment: Claudette Savage WPtel: [address] [place] [address] (15 min) Moderate 09/28/2016 Patient Education: Patient Medication Summary Completed 09/28/2016 Patient Education: Obesity Completed 09/28/2016 Care Plan: BMI Above normal followup SELF-MGMT EDUC & TRAIN 1 PT Pending 09/28/2016 Visit Plan: Zbbsjfx-ktvqquleqf-rpvpiwbs-increase cymbalta to 60mg daily. Increase xanax as [...] for insomnia/anxiety 08/24/2016 Appointment: Claudette Savage WPtel: [address] [place], [place] [phone] [place] [address] (15 min) Moderate 08/24/2016 Patient Education: Patient [...] not improving. 07/13/2016 Appointment: Heidy Trejo WPtel: [address] [place] [address] (15 min) Moderate 07/13/2016 Patient Education: Patient [...] insomnia. 05/19/2016 Appointment: Petra Rivas WPtel: [phone] [facility] (30 min) Complex 05/19/2016 Patient Education: [...] this patient. 03/16/2016 Appointment: Heidy Trejo WPtel: [facility]note 3[facility] (15 min) Moderate 03/16/2016 Patient Education: Patient [...] the swab. 02/28/2016 Appointment: Claudette Savage WPtel: [facility][note 3]3 [facility] (10 min) Simple 02/28/2016 Patient Education: [...] lexapro 01/13/2016 Appointment: Heidy Trejo [facility]Ptel: [phone] (15 min) Moderate 01/13/2016 Patient Education: Patient [...] 09/27/2015 Care Plan: Referral Order SNOMED-CT : [id number] Pending 08/31/2015 Visit Plan: Anxiety - the [...] show improvement. 07/15/2015 Appointment: Heidy Trejo WPtel: [phone] [place] (15 min) Moderate 07/15/2015 Patient Education: [...] vein clinic 04/02/2015 Appointment: Claudette Savage WPtel: [phone] [place] (15 min) Moderate 04/02/2015 Patient [...] Summary Completed 12/02/2014 Referral: Belle Hoffman WPtel: [address] [place], [place] [address] they will call and set the appt with her Initiated Referral: Maycol Quijano Referral Initiated Referral: Belle Hoffman [facility]el[phone] [place] Referral Initiated Referral: Jignesh Quinn [facility] [place] Referral Initiated Instructions Comment . Chronic Depression [...] cyst - will refer to Dr. Kai Lombardo . Strep throat - pt give rx for antibiotic - sent to pharmacy - pt had swab of throat today - will culture the swab. . Left knee pain - ongoing - will order MRI and refer as indicated - pt is to use RICE - Rest, Ice, Compression, Elevation - The pt is to use prn antiinflammatories to manage acute pain. The patient is to call the office if the pain is worsening or does not improve. . UTI - pt with positive urinalysis [...] allow for greater blood glucose control. . Arthritis- occasionally uncontrolled symptoms- recommend pt to take antiinflammatory as directed for pain control. Use tylenol for break through pain symptoms. Breathing treatments 3 times a day x [...] 1 mg at night for anxiety . Wvdeegx-aibtjplbzg-cpiwllqa-increase cymbalta to 60mg daily. 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 Right heel pain - will send [...] appropriately prescribed for this patient. BELSOMRA . Mennokl-xqqaqjzrwv-fykqwlzn with increase in cymbalta-no changes Insomnia-RX for [...]
--- OUTSIDE RECORDS SUMMARY | 2018-10-14 13:21 | XMS REPORT | CCD ---
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 Name Role Phone PP Unavailable CCM Unavailable Summary Purpose Interface Exchange Insurance Providers Payer name Policy type / Coverage type Covered green party ID Effective Begin Date Effective End Date [facility] Commercial Insurance [id number] Unknown Family history Brother Diagnosis Age At [...] Description Effective Dates Tobacco history SNOMED CT: 6123539 Quit less than 5 years ago 04/02/2015 Alcohol history Unknown occasionally drinks alcohol 04/02/2015 Marital status Unknown Manuel Vitale 12/02/2014 Number of children Unknown 3 12/02/2014 Allergies, Adverse Reactions, Alerts Substance Reaction Codes Entered Date Inactivated Date Status * NO KNOWN FOOD ALLERGIES Unknown 12/02/2014 No Inactive Date Active Penicillin Unknown 12/02/2014 No Inactive Date Active tramadol RxNorm: 21926 12/02/2014 No Inactive Date Active Past Medical [...] Active 01/12/2016 Unknown Pain in left knee ICD-9: 719.46 [...] E66.09 01/12/2016 Active Pain in left knee ICD-9: 719.46 [...] Start Date Stop Date Status Fill Instructions metformin 500 mg tablet RxNorm: 989417 1 Tablet(s) PO daily 08/12/2018 09/10/2018 Active Protonix 40 mg tablet,delayed release RxNorm: 399086 1 TABLET(S) PO DAILY 08/12/2018 12/09/2018 Active Lasix 20 mg tablet RxNorm: 924316 1 TABLET(S) PO DAILY NEEDED EDEMA 08/06/2018 10/04/2018 Active potassium chloride ER 10 mEq tablet,extended release RxNorm: 293206 1 TABLET(S) PO DAILY NEEDED TO TAKE WHEN YOU TAKE THE LASIX 08/06/2018 10/04/2018 Active Zorvolex 35 mg capsule RxNorm: 4455538 TAKE 1 CAPSULE BY MOUTH THREE (3) TIMES DAILY 08/02/2018 11/29/2018 Active prednisone 20 mg tablet RxNorm: 770704 Tablet(s) PO 07/17/2018 No Stop Date Active 20mg tonight then starting tomorrow: 60,60,40,40,20,20,10,10 Remeron 15 mg tablet RxNorm: 555704 1/2 Tablet(s) PO QHS 07/17/2018 2019 Active Tamiflu 75 mg capsule RxNorm: 351712 1 Capsule(s) PO BID 07/17/2018 07/21/2018 Inactive Kenalog 40 mg/mL suspension for injection RxNorm: 3358770 Milliliter(s) Inj 07/17/2018 07/17/2018 Inactive Lexapro 20 mg tablet RxNorm: 891449 1 TABLET(S) PO DAILY 07/15/2018 11/11/2018 Active potassium chloride ER 10 mEq tablet,extended release RxNorm: 444596 1 Tablet(s) PO daily as needed to take when you take the lasix 07/04/2018 08/02/2018 Inactive Lasix 20 mg tablet RxNorm: 538021 1 Tablet(s) PO daily as needed edema 07/04/2018 08/02/2018 Inactive Cymbalta 30 mg capsule,delayed release RxNorm: 495369 1 CAPSULE(S) PO DAILY TO BE TAKEN WITH 60MG TO=90MG 07/01/2018 07/14/2018 Inactive hydrochlorothiazide 25 mg tablet RxNorm: 315141 1 TABLET(S) PO DAILY 06/27/2018 09/24/2018 Active Remeron 15 mg tablet RxNorm: 548816 1/2 Tablet(s) PO QHS 06/20/2018 07/16/2018 Inactive Lasix 20 mg tablet RxNorm: 300906 1 Tablet(s) PO daily 06/19/2018 06/21/2018 Inactive potassium chloride ER 10 mEq tablet,extended release RxNorm: 453803 1 Tablet(s) PO daily 06/19/2018 07/03/2018 Inactive Lexapro 20 mg tablet RxNorm: 813586 1 Tablet(s) PO daily 06/19/2018 07/14/2018 Inactive gabapentin 300 mg capsule RxNorm: 438379 1 CAPSULE(S) PO TID 06/14/2018 08/12/2018 Inactive Ambien 10 mg tablet RxNorm: 069367 1 Tablet(s) PO QHS as needed insomnia 06/10/2018 09/07/2018 Active Cymbalta 30 mg capsule,delayed release RxNorm: 577005 1 Capsule(s) PO daily 06/03/2018 06/02/2018 Inactive Cymbalta 30 mg capsule,delayed release RxNorm: 222794 1 Capsule(s) PO daily to be taken with 60mg to=90mg 06/03/2018 06/30/2018 Inactive Protonix 40 mg tablet,delayed release RxNorm: 882895 1 TABLET(S) PO DAILY 05/20/2018 08/11/2018 Inactive gabapentin 300 mg capsule RxNorm: 354263 1 CAPSULE(S) PO TID 05/15/2018 06/13/2018 Inactive Protonix 40 mg tablet,delayed release RxNorm: 773600 1 Tablet(s) PO daily 04/24/2018 05/19/2018 Inactive Zorvolex 35 mg capsule RxNorm: 2591658 TAKE 1 CAPSULE BY MOUTH THREE (3) TIMES DAILY 04/22/2018 08/01/2018 Inactive hydrochlorothiazide 25 mg tablet RxNorm: 940744 1 TABLET(S) PO DAILY 04/08/2018 06/26/2018 Inactive Zorvolex 35 mg capsule RxNorm: 2550744 TAKE 1 CAPSULE BY MOUTH THREE (3) TIMES DAILY 03/27/2018 04/21/2018 Inactive gabapentin 300 mg capsule RxNorm: 350132 1 CAPSULE(S) PO TID 03/25/2018 04/14/2018 Inactive hydrochlorothiazide 25 mg tablet RxNorm: 886824 1 Tablet(s) PO daily 03/14/2018 04/07/2018 Inactive Victoza 2-Marek 0.6 mg/0.1 mL (18 mg/3 mL) subcutaneous pen injector RxNorm: 632518 Milligram(s) INJECT 1.8 MG SUB-Q ONCE DAILY 02/27/2018 08/20/2019 Active qty sufficient Xanax 1 mg tablet RxNorm: 473871 1-2 Tablet(s) PO QHS as needed insomnia 02/27/2018 05/27/2018 Inactive atorvastatin 20 mg tablet RxNorm: 082108 1 Tablet(s) PO daily 02/27/2018 05/22/2019 Active Cymbalta 60 mg capsule,delayed release RxNorm: 723318 TAKE 1 CAPSULE BY MOUTH DAILY 02/27/2018 02/26/2018 Inactive Cymbalta 60 mg capsule,delayed release RxNorm: 731406 1 Capsule(s) PO daily TAKE 1 CAPSULE BY MOUTH DAILY 02/27/2018 07/14/2018 Inactive gabapentin 300 mg capsule RxNorm: 415961 1 Capsule(s) PO TID 02/27/2018 03/24/2018 Inactive meloxicam 7.5 mg tablet RxNorm: 270101 1 Tablet(s) PO daily 1 TABLET(S) PO DAILY 02/27/2018 04/14/2018 Inactive Ambien 10 mg tablet RxNorm: 001450 1 Tablet(s) PO QHS as needed insomnia 02/27/2018 05/25/2018 Inactive atorvastatin 20 mg tablet RxNorm: 840014 1 Tablet(s) PO daily 02/05/2018 02/26/2018 Inactive atorvastatin 20 mg tablet RxNorm: 043713 1 Tablet(s) PO daily 02/05/2018 02/04/2018 Inactive meloxicam 7.5 mg tablet RxNorm: 082803 1 TABLET(S) PO DAILY 02/01/2018 02/26/2018 Inactive oxycodone 15 mg tablet RxNorm: 3782236 1 Tablet(s) PO QID as needed 01/07/2018 02/19/2018 Inactive lactulose 20 gram/30 mL oral solution RxNorm: 420857 15-30 Milliliter(s) PO BID as needed 12/31/2017 02/20/2018 Inactive meloxicam 7.5 mg tablet RxNorm: 926337 1 TABLET(S) PO DAILY 12/13/2017 01/31/2018 Inactive Zorvolex 35 mg capsule RxNorm: 1318928 1 Capsule(s) PO TID 12/13/2017 02/20/2018 Inactive Ambien 10 mg tablet RxNorm: 662118 1 Tablet(s) PO QHS as needed insomnia 12/04/2017 02/26/2018 Inactive oxycodone 15 mg tablet RxNorm: 2192920 1 Tablet(s) PO QID as needed 12/04/2017 01/06/2018 Inactive prednisone 20 mg tablet RxNorm: 139429 2 Tablet(s) PO daily 12/04/2017 12/08/2017 Inactive Victoza 2-Marek 0.6 mg/0.1 mL (18 mg/3 mL) subcutaneous pen injector RxNorm: 529209 Milligram(s) INJECT 1.8 MG SUB-Q ONCE DAILY 11/20/2017 02/26/2018 Inactive meloxicam 7.5 mg tablet RxNorm: 317027 1 Tablet(s) PO daily 11/20/2017 12/12/2017 Inactive phentermine 37.5 mg tablet RxNorm: 358833 1 Tablet(s) PO daily 11/20/2017 12/19/2017 Inactive Ambien 10 mg tablet RxNorm: 457484 1 Tablet(s) PO QHS as needed insomnia 11/20/2017 12/18/2017 Inactive Xanax 1 mg tablet RxNorm: 819780 1.5 Tablet(s) PO QHS as needed insomnia 11/20/2017 02/26/2018 Inactive hydrocodone 7.5 mg-acetaminophen 325 mg tablet RxNorm: 239958 1 Tablet(s) PO TID as needed 11/16/2017 01/06/2018 Inactive Cymbalta 60 mg capsule,delayed release RxNorm: 641598 TAKE 1 CAPSULE BY MOUTH DAILY 11/02/2017 02/26/2018 Inactive Xanax 1 mg tablet RxNorm: 291339 1 Tablet(s) PO BID PRN as needed anxiety 10/04/2017 11/19/2017 Inactive Victoza 2-Marek 0.6 mg/0.1 mL (18 mg/3 mL) subcutaneous pen injector RxNorm: 908144 INJECT 1.8 MG SUB-Q ONCE DAILY 10/04/2017 11/19/2017 Inactive hydrocodone 7.5 mg-acetaminophen 325 mg tablet RxNorm: 159765 1 Tablet(s) PO TID as needed 09/17/2017 11/15/2017 Inactive hydrocodone 7.5 mg-acetaminophen 325 mg tablet RxNorm: 852924 1 Tablet(s) PO TID as needed 09/10/2017 09/16/2017 Inactive prednisone 10 mg tablet RxNorm: 823545 Tablet(s) PO 09/10/2017 11/13/2017 Inactive 6,5,4,3,2,1 Zorvolex 35 mg capsule RxNorm: 6075708 1 Capsule(s) PO TID 09/07/2017 11/13/2017 Inactive Ambien 10 mg tablet RxNorm: 881718 1 Tablet(s) PO QHS as needed insomnia 08/29/2017 11/19/2017 Inactive Zorvolex 35 mg capsule RxNorm: 1466633 1 Capsule(s) PO TID 08/28/2017 09/06/2017 Inactive Zorvolex 35 mg capsule RxNorm: 6897813 1 Capsule(s) PO TID 08/13/2017 08/27/2017 Inactive Zorvolex 35 mg capsule RxNorm: 4820547 1 Capsule(s) PO TID 08/13/2017 08/12/2017 Inactive prednisone 20 mg tablet RxNorm: 006847 2 Tablet(s) PO daily 07/31/2017 08/04/2017 Inactive hydrocodone 7.5 mg-acetaminophen 325 mg tablet RxNorm: 945960 1 Tablet(s) PO TID as needed 07/31/2017 09/09/2017 Inactive Zorvolex 35 mg capsule RxNorm: 8381634 1 Capsule(s) PO TID as needed 07/31/2017 11/13/2017 Inactive ceftriaxone 500 mg solution for injection RxNorm: 7208638 1 Milliliter(s) Inj 06/27/2017 06/27/2017 Inactive Keflex 500 mg capsule RxNorm: 367576 1 Capsule(s) PO TID 06/27/2017 07/03/2017 Inactive Ambien 10 mg tablet RxNorm: 675388 1 Tablet(s) PO daily 05/29/2017 08/25/2017 Inactive tramadol 50 mg tablet RxNorm: 190961 1 Tablet(s) PO TID as needed 05/29/2017 07/27/2017 Inactive Xanax 1 mg tablet RxNorm: 633445 1 Tablet(s) PO BID PRN as needed anxiety 05/21/2017 10/03/2017 Inactive alprazolam 1 mg tablet RxNorm: 575949 1 Tablet(s) PO BID as needed 05/21/2017 06/19/2017 Inactive Celebrex 200 mg capsule RxNorm: 019429 1 CAPSULE(S) PO BID 05/04/2017 11/05/2017 Inactive prednisone 20 mg tablet RxNorm: 078385 2 Tablet(s) PO daily 04/20/2017 04/24/2017 Inactive Ambien 10 mg tablet RxNorm: 371867 Tablet(s) PO 04/20/2017 05/28/2017 Inactive hydrocodone 5 mg-acetaminophen 325 mg tablet RxNorm: 047348 1 Tablet(s) PO QID as needed 04/20/2017 08/01/2017 Inactive Cymbalta 60 mg capsule,delayed release RxNorm: 344368 1 Capsule(s) PO daily 04/20/2017 02/26/2018 Inactive Victoza 2-Marek 0.6 mg/0.1 mL (18 mg/3 mL) subcutaneous pen injector RxNorm: 664638 INJECT 1.8 MG SUB-Q ONCE DAILY 03/26/2017 09/21/2017 Inactive diazepam 2 mg tablet RxNorm: 701746 1 Tablet(s) PO QHS as needed insomnia 01/28/2017 05/07/2017 Inactive Victoza 2-Marek 0.6 mg/0.1 mL (18 mg/3 mL) subcutaneous pen injector RxNorm: 636698 1.8 Milligram(s) SQ daily 01/26/2017 03/25/2017 Inactive dispense quantity sufficient Tussionex Pennkinetic ER 10 mg-8 mg/5 mL suspension,extended release RxNorm: 5628363 5 Milliliter(s) PO BID 01/11/2017 01/15/2017 Inactive Xanax 1 mg tablet RxNorm: 010631 1 Tablet(s) PO BID PRN as needed anxiety 01/11/2017 05/20/2017 Inactive Zithromax Z-Marek 250 mg tablet RxNorm: 813621 1 Tablet(s) PO UD 01/11/2017 01/15/2017 Inactive zpack albuterol sulfate 2.5 mg/3 mL (0.083 %) solution for nebulization RxNorm: 753564 3 Milliliter(s) INH UD 01/11/2017 11/13/2017 Inactive prednisone 20 mg tablet RxNorm: 854368 2 Tablet(s) PO daily 01/11/2017 01/15/2017 Inactive Kenalog 40 mg/mL suspension for injection RxNorm: 2485455 1.5 Milliliter(s) Inj 01/11/2017 01/11/2017 Inactive Celebrex 200 mg capsule RxNorm: 177694 1 Capsule(s) PO BID 11/30/2016 02/27/2017 Inactive Ambien 5 mg tablet RxNorm: 504509 1 Tablet(s) PO HS PRN 11/30/2016 08/07/2017 Inactive trazodone 50 mg tablet RxNorm: 999957 1/2 to 1 Tablet(s) PO QHS 10/13/2016 10/12/2016 Inactive trazodone 50 mg tablet RxNorm: 728841 1/2 to 1 Tablet(s) PO QHS 10/13/2016 11/29/2016 Inactive Belsomra 10 mg tablet RxNorm: 7345650 1 Tablet(s) PO QHS 09/28/2016 11/29/2016 Inactive may increase to 20mg if 10mg not effective Cymbalta 60 mg capsule,delayed release RxNorm: 259835 1 Capsule(s) PO daily 08/24/2016 03/21/2017 Inactive Xanax 1 mg tablet RxNorm: 764994 1 Tablet(s) PO BID PRN as needed anxiety 08/24/2016 01/10/2017 Inactive Victoza 2-Marek 0.6 mg/0.1 mL (18 mg/3 mL) subcutaneous pen injector RxNorm: 927975 Milligram(s) SQ 08/24/2016 08/23/2016 Inactive Victoza 2-Marek 0.6 mg/0.1 mL (18 mg/3 mL) subcutaneous pen injector RxNorm: 862773 1.8 Milligram(s) SQ 08/24/2016 01/25/2017 Inactive Vitamin D2 50,000 unit capsule RxNorm: 277150 1 Capsule(s) PO QW 07/13/2016 10/10/2016 Inactive Cymbalta 30 mg capsule,delayed release RxNorm: 583055 1 Capsule(s) PO daily 07/13/2016 08/23/2016 Inactive Belviq XR 20 mg tablet,extended release RxNorm: 9901325 1 Tablet(s) PO daily 05/30/2016 05/29/2016 Inactive prednisone 20 mg tablet RxNorm: 033075 2 Tablet(s) PO daily 05/30/2016 06/03/2016 Inactive prednisone 20 mg tablet RxNorm: 698355 2 Tablet(s) PO daily 05/30/2016 05/29/2016 Inactive Belviq XR 20 mg tablet,extended release RxNorm: 8409313 1 Tablet(s) PO daily 05/30/2016 06/28/2016 Inactive cyclobenzaprine 5 mg tablet RxNorm: 787833 1-2 Tablet(s) PO TID as needed 05/19/2016 05/23/2016 Inactive metoprolol succinate ER 25 mg tablet,extended release 24 hr RxNorm: 100025 1 Tablet(s) PO QPM 04/10/2016 04/13/2016 Inactive metoprolol succinate ER 25 mg tablet,extended release 24 hr RxNorm: 286977 1 Tablet(s) PO QPM 04/10/2016 04/09/2016 Inactive escitalopram 10 mg tablet RxNorm: 669524 1 Tablet(s) PO daily 03/16/2016 07/12/2016 Inactive estradiol 1 mg tablet RxNorm: 167798 1 Tablet(s) PO every other day 03/16/2016 05/15/2016 Inactive Kenalog 40 mg/mL suspension for injection RxNorm: 2269170 Milliliter(s) Inj 02/28/2016 02/28/2016 Inactive Zithromax Z-Marek 250 mg tablet RxNorm: 644631 1 Tablet(s) PO UD 02/28/2016 03/03/2016 Inactive zpack Lexapro 10 mg tablet RxNorm: 951925 1 Tablet(s) PO daily 09/27/2015 02/27/2016 Inactive Lexapro 10 mg tablet RxNorm: 963116 1 Tablet(s) PO daily 08/30/2015 09/26/2015 Inactive Vimovo 500 mg-20 mg tablet,immediate and delay release RxNorm: 429879 1 Tablet(s) PO BID as needed for pain 08/30/2015 09/26/2015 Inactive azithromycin 250 mg tablet RxNorm: 003923 1 Tablet(s) PO UD 2 pills on day #1, then one pill daily x 4 days 07/15/2015 01/12/2016 Inactive hydrocodone 10 mg-acetaminophen 325 mg tablet RxNorm: 054191 1 Tablet(s) PO QID 06/16/2015 01/12/2016 Inactive pramipexole 0.5 mg tablet RxNorm: 787895 1 Tablet(s) PO QPM 06/16/2015 07/14/2015 Inactive Celebrex 200 mg capsule RxNorm: 479852 1 Capsule(s) PO daily 05/03/2015 05/02/2015 Inactive Celebrex 200 mg capsule RxNorm: 291895 1 Capsule(s) PO daily 05/03/2015 01/12/2016 Inactive hydrocodone 7.5 mg-acetaminophen 325 mg tablet RxNorm: 829534 1 Tablet(s) PO Q6 PRN 05/03/2015 06/15/2015 Inactive Mobic 15 mg tablet RxNorm: 746099 1 Tablet(s) PO daily 04/02/2015 05/02/2015 Inactive hydrocodone 7.5 mg-acetaminophen 325 mg tablet RxNorm: 283649 1 Tablet(s) PO Q6 PRN 04/02/2015 05/02/2015 Inactive hydrocodone 5 mg-acetaminophen 325 mg tablet RxNorm: 182454 1 Tablet(s) PO Q6 as needed 12/11/2014 04/01/2015 Inactive Pennsaid 1.5 % topical drops RxNorm: 666296 40 Drop(s) TOP QID as needed 12/07/2014 02/04/2015 Inactive Apply 40 drops to each knee joint 4 times per day as needed for osteoarthritis pain estradiol 1 mg tablet RxNorm: 159303 1 Tablet(s) PO QHS No Start Date 03/15/2016 Inactive Xanax 0.5 mg tablet RxNorm: 868048 1 Tablet(s) PO Q6 as needed anxiety No Start Date 08/23/2016 Inactive Tylenol Extra Strength 500 mg tablet RxNorm: 514033 3 Tablet(s) PO BID after breakfast and after lunch No Start Date 01/12/2016 Inactive lactulose 20 gram/30 mL oral solution RxNorm: 319347 15-30 Milliliter(s) PO BID as needed No Start Date 12/30/2017 Inactive hydrocodone 5 mg-acetaminophen 325 mg tablet RxNorm: 843533 1 Tablet(s) PO Q6 as needed No Start Date 12/10/2014 Inactive Phenergan-Codeine syrup RxNorm: 5-10 Milliliter(s) PO QID as needed No Start Date 11/13/2017 Inactive ibuprofen 200 mg capsule RxNorm: 139144 4 Capsule(s) PO QID as needed No Start Date 04/01/2015 Inactive Medication Administered Medication Codes Instructions Start Date Status Kenalog 40 mg/mL suspension for injection RxNorm: 0525412 Milliliter 07/17/2018 No longer Active ceftriaxone 500 mg solution for injection RxNorm: 5854137 1Milliliter 06/27/2017 No longer Active Kenalog 40 mg/mL suspension for injection RxNorm: 7993444 1.5Milliliter 01/11/2017 No longer Active Kenalog 40 mg/mL suspension for injection RxNorm: 4064135 Milliliter 02/28/2016 No longer Active Immunizations Vaccine [...] For Visit Effective Dates Notes diabetes mellitus 08/12/2018 sinus congestion 07/17/2018 medication [...] Item Item Code Result Date Influenza A+B Ity666 Influ A+B Pos Influenza A 07/17/2018 %Hba1C Kke807 % HbA1c 83961- 6 6.7 % 11/20/2017 %Hba1C Luo998 Gluc Ave 146 mg/dL 11/20/2017 Free T4 Ggg064 FREE T4 0.76 ng/dL 05/21/2017 Tsh Ord6 hTSH II 1.27 uIU/mL 05/21/2017 Comp Metabolic Moa281 NA 140 mEq/L 05/21/2017 Comp Metabolic Wdh973 K 3.9 mEq/L 05/21/2017 Comp Metabolic Kcs339 CL 101 mEq/L 05/21/2017 Comp Metabolic Pnk518 CO2 28.0 mEq/L 05/21/2017 Comp Metabolic Lnf824 ANION GAP 15 05/21/2017 Comp Metabolic Hde917 GLUCOSE 155 mg/dL 05/21/2017 Comp Metabolic Vwa611 Creat 0.7 mg/dL 05/21/2017 Comp Metabolic Kfp050 eGFR 87 ml/min/1.73m2 05/21/2017 Comp Metabolic Drx551 BUN 16 mg/dL 05/21/2017 Comp Metabolic Iuo338 B/C Ratio 21.6 Ratio 05/21/2017 Comp Metabolic Lzb947 CALCIUM 9.4 mg/dL 05/21/2017 Comp Metabolic Ujg276 ALK PHOS 132 U/L 05/21/2017 Comp Metabolic Dxz649 AST(SGOT) 16 U/L 05/21/2017 Comp Metabolic Trq709 ALT(SGPT) 20 U/L 05/21/2017 Comp Metabolic Uvu724 BILI T 0.4 mg/dL 05/21/2017 Comp Metabolic Rho887 ALBUMIN 4.0 g/dL 05/21/2017 Comp Metabolic Gce464 TPRO 6.7 g/dL 05/21/2017 Comp Metabolic Qhz213 GLOB 2.7 g/dL 05/21/2017 Comp Metabolic Oyt580 A/G Ratio 1.5 Ratio 05/21/2017 Comp Metabolic Ypn938 Osmo 284 mOsmo 05/21/2017 Cbc With Differential [...] 28.9 pg 05/21/2017 Cbc With Differential Ord2 [place]% 5.5 % 05/21/2017 Cbc With Differential Ord2 [...] 2.65 K/ul 05/21/2017 Cbc With Differential Ord2 [place] ABS# 0.8 K/ul 05/21/2017 Cbc With Differential Ord2 Eos ABS# 0.1 K/ul 05/21/2017 Cbc With Differential Ord2 Baso ABS# 0.0 K/ul 05/21/2017 Estrogens Total 506594 ESTROGENS, TOTAL 54 pg/mL 05/24/2016 Magnesium Ord90 Mag 1.8 mg/dL 05/19/2016 Tsh Ord6 hTSH II 1.56 uIU/mL 05/19/2016 Progesterone Prog 0.03 ng/mL 05/19/2016 Comp Metabolic Kgm537 NA 136 mEq/L 05/19/2016 Comp Metabolic Fpg779 K 4.3 mEq/L 05/19/2016 Comp Metabolic Adl210 CL 100 mEq/L 05/19/2016 Comp Metabolic Opx972 CO2 28.0 mEq/L 05/19/2016 Comp Metabolic Huj815 ANION GAP 12 05/19/2016 Comp Metabolic Zub721 GLUCOSE 138 mg/dL 05/19/2016 Comp Metabolic Yeb730 Creat 0.7 mg/dL 05/19/2016 Comp Metabolic Hpq261 eGFR 89 ml/min/1.73m2 05/19/2016 Comp Metabolic Apt336 BUN 15 mg/dL 05/19/2016 Comp Metabolic Gal056 B/C Ratio 20.5 Ratio 05/19/2016 Comp Metabolic Asy538 CALCIUM 9.7 mg/dL 05/19/2016 Comp Metabolic Yzs846 ALK PHOS 106 U/L 05/19/2016 Comp Metabolic Vck549 AST(SGOT) 21 U/L 05/19/2016 Comp Metabolic Wry292 ALT(SGPT) 24 U/L 05/19/2016 Comp Metabolic Pxf368 BILI T 0.4 mg/dL 05/19/2016 Comp Metabolic Sss271 ALBUMIN 4.1 g/dL 05/19/2016 Comp Metabolic Poz914 TPRO 7.1 g/dL 05/19/2016 Comp Metabolic Ozy469 GLOB 3.0 g/dL 05/19/2016 Comp Metabolic Pvn041 A/G Ratio 1.4 Ratio 05/19/2016 Comp Metabolic Hmw398 Osmo 275 mOsmo 05/19/2016 Cbc With Differential [...] 28.5 pg 05/19/2016 Cbc With Differential Ord2 [place]% 6.5 % 05/19/2016 Cbc With Differential Ord2 [...] 2.33 K/ul 05/19/2016 Cbc With Differential Ord2 [place] ABS# 0.6 K/ul 05/19/2016 Cbc With Differential Ord2 Eos ABS# 0.1 K/ul 05/19/2016 Cbc With Differential Ord2 Baso ABS# 0.0 K/ul 05/19/2016 C RAP A SC [id number] Strep A Negative 02/28/2016 Tsh Ord6 hTSH [...] 26.2 pg 08/16/2015 Cbc With Differential Ord2 [place]% 7.1 % 08/16/2015 Cbc With Differential Ord2 [...] 2.32 K/ul 08/16/2015 Cbc With Differential Ord2 [place] ABS# 0.6 K/ul 08/16/2015 Cbc With Differential Ord2 Eos ABS# 0.1 K/ul 08/16/2015 Cbc With Differential Ord2 Baso ABS# 0.0 K/ul 08/16/2015 Cbc With Differential Ord2 New Analyzer Notice Please note new ref ranges starting 05-26-2015 due to implemntation of new five part differential hematolgy analyzer. 08/16/2015 Comp Metabolic Odn542 NA 132 mEq/L 08/16/2015 Comp Metabolic Gor623 K 3.6 mEq/L 08/16/2015 Comp Metabolic Xhy155 CL 99 mEq/L 08/16/2015 Comp Metabolic Ytl199 CO2 23.0 mEq/L 08/16/2015 Comp Metabolic Nql175 ANION GAP 14 08/16/2015 Comp Metabolic Tbf247 GLUCOSE 101 mg/dL 08/16/2015 Comp Metabolic Ovn200 Creat 0.7 mg/dL 08/16/2015 Comp Metabolic Xpl482 eGFR 100 ml/min/1.73m2 08/16/2015 Comp Metabolic Gvl498 BUN 10 mg/dL 08/16/2015 Comp Metabolic Cmf646 B/C Ratio 15.2 Ratio 08/16/2015 Comp Metabolic Tmt259 CALCIUM 9.3 mg/dL 08/16/2015 Comp Metabolic Ayh376 ALK PHOS 100 U/L 08/16/2015 Comp Metabolic Mje500 AST(SGOT) 14 U/L 08/16/2015 Comp Metabolic Dij714 ALT(SGPT) 11 U/L 08/16/2015 Comp Metabolic Cjm708 BILI T 0.3 mg/dL 08/16/2015 Comp Metabolic Qyh881 ALBUMIN 3.9 g/dL 08/16/2015 Comp Metabolic Frf144 TPRO 7.1 g/dL 08/16/2015 Comp Metabolic Afc033 GLOB 3.2 g/dL 08/16/2015 Comp Metabolic Pxx735 A/G Ratio 1.2 Ratio 08/16/2015 Comp Metabolic Yfw655 Osmo 264 mOsmo 08/16/2015 Lipid Ord30 CHOL 209 mg/dL 12/03/2014 Lipid Ord30 HDL 42.0 mg/dl 12/03/2014 Lipid Ord30 TRIG 219 mg/dL 12/03/2014 Lipid Ord30 LDL 123 mg/dL 12/03/2014 Lipid Ord30 C/HDL 5.0 Ratio 12/03/2014 Comp Metabolic Ugk361 NA 132 mEq/L 12/03/2014 Comp Metabolic Zdh322 K 4.0 mEq/L 12/03/2014 Comp Metabolic Gzo477 CL 101 mEq/L 12/03/2014 Comp Metabolic Zsk056 CO2 22.0 mEq/L 12/03/2014 Comp Metabolic Bxp185 ANION GAP 13 12/03/2014 Comp Metabolic Mff568 GLUCOSE 123 mg/dL 12/03/2014 Comp Metabolic Tgb215 Creat 0.7 mg/dL 12/03/2014 Comp Metabolic Mvj551 eGFR 97 ml/min/1.73m2 12/03/2014 Comp Metabolic Qwk655 BUN 10 mg/dL 12/03/2014 Comp Metabolic Dqv801 B/C Ratio 14.7 Ratio 12/03/2014 Comp Metabolic Bvf115 CALCIUM 9.2 mg/dL 12/03/2014 Comp Metabolic Pat843 ALK PHOS 88 U/L 12/03/2014 Comp Metabolic Awt678 AST(SGOT) 18 U/L 12/03/2014 Comp Metabolic Koo632 ALT(SGPT) 17 U/L 12/03/2014 Comp Metabolic Uzl049 BILI T 0.5 mg/dL 12/03/2014 Comp Metabolic Vut252 ALBUMIN 3.9 g/dL 12/03/2014 Comp Metabolic Gqb668 TPRO 6.8 g/dL 12/03/2014 Comp Metabolic Vwr722 GLOB 2.9 g/dL 12/03/2014 Comp Metabolic Tnl133 A/G Ratio 1.3 Ratio 12/03/2014 Comp Metabolic Oph026 Osmo 265 mOsmo 12/03/2014 Tsh Ord6 hTSH II 1.13 uIU/mL 12/03/2014 D-Dimer D-DIMER 168 NG/ML 12/03/2014 D-Dimer [id number] COMMENT 12/03/2014 Cbc With Differential Ord2 WBC [...] Result Effective Dates Constitutional No recent illness 08/12/2018 Constitutional No [...] General 1995 Eyes conjunctiva/eyelids Overall: conjunctiva clear 05/21/2017 None [...] level 01/11/2017 None Full Exam - General 1995 Ears/Nose/Throat lips/teeth/gingiva Overall: benign lips 01/11/2017 None [...] Procedure Codes Date THER/PROPH/DIAG INJ SC/IM CPT-4: 00465 07/17/2018 TRIAMCINOLONE ACET INJ NOS CPT-4: J3301 07/17/2018 THER/PROPH/DIAG INJ SC/IM CPT-4: 80848 06/27/2017 ROCEPHIN, PER 250 MG CPT- 4: J0696 06/27/2017 IMMUNIZATION ADMIN CPT- 4: 94373 03/16/2017 FLU VAC NO PRSV 4 FLETCHER 3 YRS+ CPT-4: 85216 03/16/2017 Pneumococcal Polysaccharide Vaccine, 23-Valent, Ad CPT-4: 62642 03/16/2017 IMMUNIZATION ADMIN EACH ADD CPT-4: 64794 03/16/2017 TRIAMCINOLONE ACET INJ NOS CPT-4: J3301 01/11/2017 TRIAMCINOLONE ACET INJ NOS CPT-4: J3301 02/28/2016 Vital Signs Date Vital 08/12/2018 Blood Pressure 1: 124/68 Code: 8480-6 BMI: 38.4 Code: 94782-7 Heart Rate 1: 79 bpm Height: 5'6" SpO2: 94% Weight: 238 lbs 07/17/2018 Blood Pressure 1: 126/72 Code: 8480-6 BMI: 38.6 Code: 05332-8 Heart Rate 1: 85 bpm Height: 5'6" SpO2: 95% Temperature: 36.9 (C) / 98.4 (F) Weight: 239 lbs 07/04/2018 Blood Pressure 1: 132/76 Code: 8480-6 Heart Rate 1: 80 bpm Height: SpO2: 97% Weight: 06/19/2018 Blood Pressure 1: 124/74 Code: 8480-6 BMI: 38.6 Code: 50381-2 Heart Rate 1: 85 bpm Height: 5'6" SpO2: 95% Weight: 239 lbs 04/24/2018 Blood Pressure 1: 128/74 Code: 8480-6 BMI: 37.8 Code: 66821-6 Heart Rate 1: 107 bpm Height: 5'6" SpO2: 98% Weight: 234 lbs 04/17/2018 Blood Pressure 1: 120/64 Code: 8480-6 BMI: 37.8 Code: 46299-8 Heart Rate 1: 84 bpm Height: 5'6" SpO2: 96% Weight: 234 lbs 03/14/2018 Blood Pressure 1: 140/82 Code: 8480-6 BMI: 37.8 Code: 14066-7 Heart Rate 1: 85 bpm Height: 5'6" SpO2: 98% Weight: 234 lbs 02/27/2018 Blood Pressure 1: 142/68 Code: 8480-6 BMI: 36.5 Code: 64785-6 Heart Rate 1: 84 bpm Height: 5'6" SpO2: 97% Weight: 226 lbs 12/19/2017 Blood Pressure 1: 130/86 Code: 8480-6 BMI: 35.7 Code: 51509-2 Heart Rate 1: 94 bpm Height: 5'6" Weight: 221 lbs 12/04/2017 Blood Pressure 1: 138/78 Code: 8480-6 BMI: 36.6 Code: 61998-0 Heart Rate 1: 94 bpm Height: 5'6" SpO2: 98% Weight: 227 lbs 11/20/2017 Weight: 233 lbs 09/10/2017 Blood Pressure 1: 132/86 Code: 8480-6 Heart Rate 1: 86 bpm Height: Weight: 08/14/2017 Blood Pressure 1: 120/74 Code: 8480-6 BMI: 33.9 Code: 95663-9 Heart Rate 1: 92 bpm Height: 5'6" SpO2: 94% Weight: 210 lbs 07/31/2017 Blood Pressure 1: 140/80 Code: 8480-6 BMI: 33.9 Code: 70508-4 Heart Rate 1: 96 bpm Height: 5'6" SpO2: 97% Weight: 210 lbs 06/27/2017 Blood Pressure 1: 128/80 Code: 8480-6 BMI: 33.9 Code: 19976-3 Heart Rate 1: 85 bpm Height: 5'6" SpO2: 98% Temperature: 36.6 (C) / 97.8 (F) Weight: 210 lbs 05/29/2017 Blood Pressure 1: 136/82 Code: 8480-6 Heart Rate 1: 101 bpm Height: 5'6" SpO2: 96% Weight: 05/21/2017 Blood Pressure 1: 144/74 Code: 8480-6 Heart Rate 1: 112 bpm Height: 5'6" SpO2: 94% Temperature: 36.7 (C) / 98.1 (F) Weight: 04/20/2017 Blood Pressure 1: 126/ Code: 8480-6 BMI: 39.9 Code: 96540-0 Heart Rate 1: 79 bpm Height: 5'6" SpO2: 97% Weight: 247 lbs 01/26/2017 Blood Pressure 1: 132/74 Code: 8480-6 BMI: 37.8 Code: 79413-7 Heart Rate 1: 74 bpm Height: 5'6" SpO2: 97% Weight: 234 lbs 01/11/2017 Blood Pressure 1: 118/68 Code: 8480-6 BMI: 38.7 Code: 48105-2 Heart Rate 1: 91 bpm Height: 5'6" SpO2: 96% Weight: 240 lbs 11/30/2016 Blood Pressure 1: 132/76 Code: 8480-6 BMI: 38.3 Code: 04686-8 Heart Rate 1: 71 bpm Height: 5'6" SpO2: 92% Weight: 237 lbs 09/28/2016 Blood Pressure 1: 122/72 Code: 8480-6 BMI: 39.1 Code: 52656-0 Heart Rate 1: 88 bpm Height: 5'6" SpO2: 94% Weight: 242 lbs 08/24/2016 Blood Pressure 1: 130/87 Code: 8480-6 BMI: 41.5 Code: 90683-5 Heart Rate 1: 95 bpm Height: 5'6" Respiratory Rate: 16 bpm SpO2: 98% Temperature: 36.9 (C) / 98.5 (F) Weight: 257 lbs 07/13/2016 Blood Pressure 1: 132/84 Code: 8480-6 BMI: 42.0 Code: 73670-5 Heart Rate 1: 73 bpm Height: 5'6" SpO2: 97% Weight: 260 lbs 05/19/2016 Blood Pressure 1: 138/76 Code: 8480-6 BMI: 40.8 Code: 79470-5 Heart Rate 1: 80 bpm Height: 5'6" SpO2: 98% Weight: 253 lbs 03/16/2016 Blood Pressure 1: 122/70 Code: 8480-6 BMI: 40.4 Code: 43644-5 Heart Rate 1: 72 bpm Height: 5'6" SpO2: 98% Weight: 250 lbs 02/28/2016 Blood Pressure 1: 136/86 Code: 8480-6 BMI: 40.2 Code: 67198-8 Heart Rate 1: 87 bpm Height: 5'6" SpO2: 96% Temperature: 36.3 (C) / 97.3 (F) Weight: 249 lbs 01/13/2016 Blood Pressure 1: 120/76 Code: 8480-6 BMI: 40.4 Code: 57074-8 Heart Rate 1: 68 bpm Height: 5'6" SpO2: 97% Weight: 250 lbs 09/27/2015 Blood Pressure 1: 112/70 Code: 8480-6 BMI: 38.4 Code: 28709-7 Heart Rate 1: 76 bpm Height: 5'6" SpO2: 98% Weight: 238 lbs 08/30/2015 Blood Pressure 1: 144/82 Code: 8480-6 BMI: 39.5 Code: 41249-7 Heart Rate 1: 82 bpm Height: 5'6" SpO2: 97% Weight: 245 lbs 08/16/2015 Blood Pressure 1: 140/72 Code: 8480-6 BMI: 38.9 Code: 54053-6 Heart Rate 1: 72 bpm Height: 5'6" SpO2: 97% Weight: 241 lbs 07/15/2015 Blood Pressure 1: 128/80 Code: 8480-6 BMI: 39.3 Code: 49356-8 Heart Rate 1: 86 bpm Height: 5'6" SpO2: 98% Weight: 243 lbs 8 oz 06/16/2015 Blood Pressure 1: 146/86 Code: 8480-6 BMI: 39.6 Code: 52319-4 Heart Rate 1: 76 bpm Height: 5'6" SpO2: 97% Weight: 245 lbs 8 oz 04/02/2015 Blood Pressure 1: 132/86 Code: 8480-6 BMI: 40.7 Code: 90913-2 Heart Rate 1: 94 bpm Height: 5'6" SpO2: 98% Weight: 252 lbs 12/02/2014 Blood Pressure 1: 122/90 Code: 8480-6 BMI: 41.6 Code: 35535-5 Heart Rate 1: 77 bpm Height: 5'6" SpO2: 95% Weight: 258 lbs Functional Status No Functional Status data History of Present Illness Symptom Name Status Result Effective Date Notes Quality non-insulin dependent 08/12/2018 None Test results [...] Codes Date EST. PATIENT, LEVEL III Diagnosis: Type 2 diabetes mellitus without complications[ICD10: E11.9] Petra Trejo MD, [facility] CPT-4: 34549 08/12/2018 63110 EST. PATIENT, LEVEL III Diagnosis: Acute laryngopharyngitis[ICD10: J06.0] Diagnosis: Cough[ICD10: R05] Diagnosis: Other allergic rhinitis[ICD10: J30.89] Diagnosis: Right upper quadrant pain[ICD10: R10.11] Petra Trejo MD, [facility] CPT-4: 40212 07/17/2018 38157 EST. PATIENT, LEVEL III Diagnosis: Generalized anxiety disorder[ICD10: F41.1] Diagnosis: Major depressive disorder, single episode, moderate[ICD10: F32.1] Petra Trejo MD, [facility] CPT-4: 87769 07/04/2018 79689 EST. PATIENT, LEVEL IV Diagnosis: Generalized anxiety disorder[ICD10: F41.1] Diagnosis: Major depressive disorder, single episode, moderate[ICD10: F32.1] Diagnosis: Other insomnia[ICD10: G47.09] Petra Trejo MD, [facility] CPT-4: 19346 06/19/2018 82198 EST. PATIENT, LEVEL IV Diagnosis: Right upper quadrant pain[ICD10: R10.11] Diagnosis: Other chest pain[ICD10: R07.89] Petra Trejo MD, [facility] CPT-4: 04745 04/24/2018 66183 EST. PATIENT, LEVEL III Diagnosis: Generalized anxiety disorder[ICD10: F41.1] Diagnosis: Major depressive disorder, recurrent, mild[ICD10: F33.0] Diagnosis: Essential (primary) hypertension[ICD10: I10] Diagnosis: Type 2 diabetes mellitus without complications[ICD10: E11.9] Petra Trejo MD, [facility] CPT-4: 56776 04/17/2018 44731 EST. PATIENT, LEVEL III Diagnosis: Localized edema[ICD10: R60.0] Diagnosis: Essential (primary) hypertension[ICD10: I10] Petra Trejo MD, [facility] CPT-4: 47693 03/14/2018 90127 EST. PATIENT, LEVEL III Diagnosis: Pain in left knee[ICD10: M25.562] Diagnosis: Other obesity due to excess calories[ICD10: E66.09] Diagnosis: Other insomnia[ICD10: G47.09] Diagnosis: Generalized anxiety disorder[ICD10: F41.1] Petra Trejo MD, [facility] CPT-4: 57723 02/27/2018 ([id number]) Miscellaneous no charge Diagnosis: Other obesity due to excess calories[ICD10: E66.09] Heidy Trejo MD, [facility] CPT-4: 75249 12/19/2017 93858 EST. PATIENT, LEVEL III Diagnosis: Pain in right foot[ICD10: M79.671] Diagnosis: Pain in right ankle and joints of right foot[ICD10: M25.571] Petra Trejo MD, [facility] CPT-4: 04283 12/04/2017 48486 EST. PATIENT, LEVEL III Diagnosis: Pain in left knee[ICD10: M25.562] Diagnosis: Type 2 diabetes mellitus without complications[ICD10: E11.9] Diagnosis: Other obesity due to excess calories[ICD10: E66.09] Petra Trejo MD, [facility] CPT-4: 80470 11/20/2017 47068 EST. PATIENT, LEVEL III Diagnosis: Pain in left knee[ICD10: M25.562] Petra Trejo MD, [facility] CPT-4: 67775 09/10/2017 99669 EST. PATIENT, LEVEL III Diagnosis: Encounter for follow-up examination after completed treatment for conditions other than malignant neoplasm[ICD10: Z09] Diagnosis: Pain in left knee[ICD10: M25.562] Petra Trejo MD, [facility] CPT-4: 86716 08/14/2017 64603 EST. PATIENT, LEVEL III Diagnosis: Pain in left knee[ICD10: M25.562] Petra Trejo MD, [facility] CPT-4: 59391 07/31/2017 18407 EST. PATIENT, LEVEL III Diagnosis: Acute laryngopharyngitis[ICD10: J06.0] Diagnosis: Other allergic rhinitis[ICD10: J30.89] Petra Trejo MD, [facility] CPT- 4: 80307 06/27/2017 03072 EST. PATIENT, LEVEL III Diagnosis: Ganglion, left hand[ICD10: M67.442] Diagnosis: Essential (primary) hypertension[ICD10: I10] Diagnosis: Generalized anxiety disorder[ICD10: F41.1] Diagnosis: Other insomnia[ICD10: G47.09] Petra Trejo MD, [facility] CPT-4: 06211 05/29/2017 79134 EST. PATIENT, LEVEL III Diagnosis: Essential (primary) hypertension[ICD10: I10] Diagnosis: Palpitations[ICD10: R00.2] Diagnosis: Generalized anxiety disorder[ICD10: F41.1] Petra Trejo MD, [facility] CPT-4: 65807 05/21/2017 91410 EST. PATIENT, LEVEL III Diagnosis: Pain in right foot[ICD10: M79.671] Petra Trejo MD, [facility] CPT-4: 26567 04/20/2017 01858 EST. PATIENT, LEVEL IV Diagnosis: Other insomnia[ICD10: G47.09] Diagnosis: Other skin changes[ICD10: R23.8] Petra Trejo MD, [facility] CPT-4: 67456 01/26/2017 70611 EST. PATIENT, LEVEL IV Diagnosis: Acute bronchitis due to other specified organisms[ICD10: J20.8] Petra Trejo MD, [facility] CPT-4: 50250 01/11/2017 ([id number]) 23233 EST. PATIENT, LEVEL IV Diagnosis: Essential (primary) hypertension[ICD10: I10] Diagnosis: Other insomnia[ICD10: G47.09] Diagnosis: Primary generalized (osteo)arthritis[ICD10: M15.0] Diagnosis: Other obesity due to excess calories[ICD10: E66.09] Claudette Trejo MD, [facility] CPT-4: 19223 11/30/2016 ([id number]) 30719 EST. PATIENT, LEVEL III Diagnosis: Other obesity due to excess calories[ICD10: E66.09] Diagnosis: Other insomnia[ICD10: G47.09] Diagnosis: Generalized anxiety disorder[ICD10: F41.1] Claudette Trejo MD, [facility] CPT-4: 82831 09/28/2016 ([id number]) 38287 EST. PATIENT, LEVEL IV Diagnosis: Generalized anxiety disorder[ICD10: F41.1] Diagnosis: Major depressive disorder, recurrent, mild[ICD10: F33.0] Diagnosis: Other obesity due to excess calories[ICD10: E66.09] Diagnosis: Other insomnia[ICD10: G47.09] Claudette Trejo MD, [facility] CPT-4: 56435 08/24/2016 ([id number]) 12352 EST. PATIENT, LEVEL III Diagnosis: Other obesity due to excess calories[ICD10: E66.09] Diagnosis: Major depressive disorder, recurrent, moderate[ICD10: F33.1] Diagnosis: Low back pain[ICD10: M54.5] Heidy Trejo MD, [facility] CPT-4: 08475 07/13/2016 03688 EST. PATIENT, LEVEL IV Diagnosis: Other muscle spasm[ICD10: M62.838] Diagnosis: Generalized anxiety disorder[ICD10: F41.1] Diagnosis: Major depressive disorder, recurrent, moderate[ICD10: F33.1] Diagnosis: Other insomnia[ICD10: G47.09] Petra Trejo MD, [facility] CPT-4: 03801 05/19/2016 ([id number]) 71198 EST. PATIENT, LEVEL III Diagnosis: Generalized anxiety disorder[ICD10: F41.1] Diagnosis: Major depressive disorder, recurrent, moderate[ICD10: F33.1] Heidy Trejo MD, [facility] CPT-4: 07397 03/16/2016 ([id number]) 79841 EST. PATIENT, LEVEL III Diagnosis: Streptococcal pharyngitis[ICD10: J02.0] Claudette Trejo MD, [facility] CPT-4: 20738 02/28/2016 ([id number]) 55210 EST. PATIENT, LEVEL III Diagnosis: Generalized anxiety disorder[ICD10: F41.1] Diagnosis: Other obesity due to excess calories[ICD10: E66.09] Heidy Trejo MD, [facility] CPT-4: 67644 01/13/2016 ([id number]) 23627 EST. PATIENT, LEVEL III Diagnosis: Generalized anxiety disorder[ICD10: F41.1] Diagnosis: Major depressive disorder, recurrent, unspecified[ICD10: F33.9] Heidy Trejo MD, [facility] CPT-4: 81554 09/27/2015 55761 EST. PATIENT, LEVEL IV Diagnosis: Chronic pain syndrome[ICD10: G89.4] Diagnosis: Other obesity due to excess calories[ICD10: E66.09] Diagnosis: Essential (primary) hypertension[ICD10: I10] Diagnosis: Generalized anxiety disorder[ICD10: F41.1] Diagnosis: Excessive and frequent menstruation with regular cycle[ICD10: N92.0] Diagnosis: Pain in right knee[ICD10: M25.561] Petra Trejo MD, [facility] CPT-4: 78389 08/30/2015 14842 EST. PATIENT, LEVEL IV Diagnosis: Palpitations[ICD10: R00.2] Diagnosis: Other obesity due to excess calories[ICD10: E66.09] Petra Trejo MD, [facility] CPT-4: 01564 08/16/2015 ([id number]) 70978 EST. PATIENT, LEVEL IV Diagnosis: Pain in right knee[ICD10: M25.561] Diagnosis: Primary generalized (osteo)arthritis[ICD10: M15.0] Diagnosis: Acute maxillary sinusitis, unspecified[ICD10: J01.00] Heidy Trejo MD, [facility] CPT-4: 27309 07/15/2015 ([id number]) 87027 EST. PATIENT, LEVEL IV Diagnosis: Primary generalized (osteo)arthritis[ICD10: M15.0] Diagnosis: Restless legs syndrome[ICD10: G25.81] Diagnosis: Chronic pain syndrome[ICD10: G89.4] [facility] CPT- 4: 51848 06/16/2015 ([id number]) 39916 EST. PATIENT, LEVEL III Diagnosis: Primary generalized (osteo)arthritis[ICD10: M15.0] Diagnosis: Varicose veins of bilateral lower extremities with pain[ICD10: I83.813] Claudette [facility] CPT-4: 94197 04/02/2015 ([id number]) OFFICE VISIT, NEW - LEVEL 3 Diagnosis: Osteoarthritis[ICD9: 715.90] Diagnosis: ABNORMAL WEIGHT GAIN[ICD9: 783.1] Diagnosis: Superficial thrombophlebitis[ICD9: 451.9] Carey Trejo MD, [facility] CPT-4: 50323 12/02/2014 Plan of Care Planned Activity Notes Codes Status Date Visit Plan: Diabetes Mellitus - Uncontrolled - [...] allow for greater blood glucose control. 08/12/2018 Patient Education: Patient Medication Summary Completed [...] indicated 07/17/2018 Appointment: Petra Rivas WPtel: [phone] [facility] (30 min) Complex 07/17/2018 Patient Education: [...] medications. 07/04/2018 Appointment: Petra Rivas WPtel: [phone] [facility] (30 min) Complex 07/04/2018 Patient Education: [...] this patient. 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 04/17/2018 App[facility]ment[phone] (15 min) Moderate 04/17/2018 Patient Education: [...] edema. 03/14/2018 Appointment[phone] (15 min) Moderate 03/14/2018 Patient Education: [...] ortho 02/27/2018 Appointment: [phone] ([facility] min) Complex 02/27/2018 Patient Education: [...] not improve. 12/04/2017 Appointment: [facility] (15 min) Moderate 12/04/2017 Patient Education: [...] control. 11/20/2017 Appointment: Petra Rivas WPtel: [phone] [facility] [place] (15 min) Moderate 11/20/2017 Patient [...] not improve. 09/10/2017 Appointment: Petra Rivas WPtel: [facility] [place] (15 min) Moderate 09/10/2017 Patient [...] improve. 08/14/2017 Appointment: [phone] [place] (30 min) Complex 08/14/2017 Patient Education: Patient Medication Summary Completed 08/14/2017 Appointment: Petra Rivas WPtel: [address] [place], [place] [id number] (15 min) Moderate 08/01/2017 Visit Plan: Knee pain - pt is to use RICE - Rest, Ice, Compression, Elevation - pt is to use crutches as directed - The pt is to use prn antiinflammatories to manage acute pain. The patient is to call the office if the pain is worsening or does not improve. 07/31/2017 Appointment: Petra Rivas WPtel: [facility]5 [facility] (30 min) Complex 07/31/2017 Patient Education: Patient Medication Summary Completed 07/31/2017 Care Plan: X-RAY EXAM OF KNEE 3 [facility] : 66565-7 Pending 07/31/2017 Visit Plan: URI - Pt [...] allergy spray. 06/27/2017 Appointment: Petra Rivas WPtel: [facility]5 [facility] (15 min) Moderate 06/27/2017 Patient Education: [...] Dr. Quinn 05/29/2017 Appointment: Petra Rivas WPtel: [facility]0 [facility] (15 min) Moderate 05/29/2017 Patient Education: Patient Medication Summary Completed 05/29/2017 Care Plan: Referral Order SNOMED-CT : [id number] Pending 05/29/2017 Appointment: Petra Rivas WPtel: [facility]9 [facility] (15 min) Moderate 05/28/2017 Visit Plan: [...] Appointment: Pet[facility]ivas WPtel[facility] (15 min) Moderate 05/21/2017 Patient Education: Patient Medication Summary Completed 05/21/2017 Visit Plan: Right heel pain - will send RX, pt is to do stretches as directed - The pt is to use prn antiinflammatories to manage acute pain. The patient is to call the office if the pain is worsening or does not improve. 04/20/2017 Appointment: Petra Rivastel: [phone] [facility] (30 min) Complex 04/20/2017 Patient Education: Patient Medication Summary Completed 04/20/2017 Appointment: Petra Rivas WPtel: [facility]5 [facility] (30 min) Complex 03/29/2017 Patient Education: Patient Medication Summary Completed 03/16/2017 Referral: Maycol Quijano Referral Initiated 02/08/2017 Care Plan: Referral Order SNOMED-CT : [id number] Pending 01/28/2017 Visit Plan: Insomnia - Pt [...] questions, or concerns. 01/26/2017 Appointment: Petra Rivastel: [facility]5 [facility] (30 min) Complex 01/26/2017 Patient Education: [...] symptoms acutely worsen. 01/11/2017 Appointment: Petra Rivastel: [facility] (15 min) Moderate 01/11/2017 Patient Education: [...] on use. 11/30/2016 Appointment: Claudette Savage WPtel: [address] [place], [place] [phone] (15 min) Moderate 11/30/2016 Patient Education: Patient Medication Summary Completed 11/30/2016 Patient Education: Obesity Completed 11/30/2016 Care Plan: BMI Above normal followup SELF-MGMT EDUC & TRAIN 1 PT Pending 11/30/2016 Visit Plan: Rcxoitc-gcitoaoqho-qhlqjhux with increase in cymbalta- no changes Insomnia-RX for belsomra provided and instructed on use Obesity- patient down 15#-no changes-continue diet/exercise-follow up in 2 months 09/28/2016 Appointment: Claudette Savage WPtel: [address] [place], [place] [phone] (15 min) Moderate 09/28/2016 Patient Education: Patient Medication Summary Completed 09/28/2016 Patient Education: Obesity Completed 09/28/2016 Care Plan: BMI Above normal followup SELF-MGMT EDUC & TRAIN 1 PT Pending 09/28/2016 Visit Plan: Qrfwvry-ohdjasgmnd-gnmlsngi-increase cymbalta to 60mg daily. Increase xanax as [...] insomnia/anxiety 08/24/2016 Appointment: Claud[phone] [place] (15 min) Moderate 08/24/2016 Patient [...] improving. 07/13/2016 Appointment: [phone] (15 min) Moderate 07/13/2016 Patient Education: Patient [...] insomnia. 05/19/2016 Appointment: [phone] [place] (30 min) Complex 05/19/2016 Patient [...] Heidy Trejo WPtel: [facility]9 [facility] (15 min) Moderate 03/16/2016 Patient Education: [...] the swab. 02/28/2016 Appointment: Claudette Savage WPtel: [facility]1 [phone] [place] (10 min) Simple 02/28/2016 Patient [...] stop lexapro 01/13/2016 Appointment: Heidy Trejo WPtel: [facility]9 [facility] (15 min) Moderate 01/13/2016 Patient Education: [...] 09/27/2015 Care Plan: Referral Order SNOMED-CT : [id number] Pending 08/31/2015 Visit Plan: Anxiety - the [...] pain symptoms. 07/15/2015 Appointment: Heidy Trejo WPtel: [address] [place], [place] [phone] (15 min) [facility] 07/15/2015 Patient Education: Patient Medication Summary Completed [...] getting treatment at vein clinic 04/02/2015 Appointment: HusseinClaudette WPtel: [phone] [phone] [place] (15 min) Moderate 04/02/2015 Patient [...] Summary Completed 12/02/2014 Referral: Belle Hoffman WPtel: [address] [place] [address] they will call and set the appt with her Initiated Referral: Maycol Quijano Referral Initiated Referral: Belle Hoffman WPtel: [phone] Referral Initiated Referral: Jignesh Quinn [facility] [place] Referral Initiated Instructions Comment . Diabetes [...] she is to follow up with her field underwriter . Anxiety and Depression- the patient has [...] 1 mg at night for anxiety . Ekfgphf-hxhjjifpfd-oxieosxz-increase cymbalta to 60mg daily. Increase xanax as [...] a medication such as mirapex or requip. [employer] contrave 1 pill nightly x 1 week, [...] appropriately prescribed for this patient. BELSOMRA . Dpnjjfx-dbrttbtgll-ypmnjbhz with increase in cymbalta-no changes Insomnia-RX for [...]
--- OUTSIDE RECORDS SUMMARY | 2018-10-14 13:26 | XMS REPORT | CCD ---
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 Role Phone PP Unavailable CCM Unavailable Summary Purpose Interface Exchange Insurance Providers Payer name Policy type / Coverage type Covered republican ID Effective Begin Date Effective End Date [facility] Commercial Insurance [id number] Unknown Family history Brother Diagnosis Age At [...] Description Effective Dates Tobacco history SNOMED CT: 3569877 Quit less than 5 years ago 04/02/2015 Alcohol history Unknown occasionally drinks alcohol 04/02/2015 Marital status Unknown Manuel Vitale 12/02/2014 Number of children Unknown 3 12/02/2014 Allergies, Adverse Reactions, Alerts Substance Reaction Codes Entered Date Inactivated Date Status * NO KNOWN FOOD ALLERGIES Unknown 12/02/2014 No Inactive Date Active Penicillin Unknown 12/02/2014 No Inactive Date Active tramadol RxNorm: 51824 12/02/2014 No Inactive Date Active Past Medical [...] Fill Instructions metformin 500 mg tablet RxNorm: 961175 1 Tablet(s) PO daily 08/12/2018 09/10/2018 Active Protonix 40 mg tablet,delayed release RxNorm: 443892 1 TABLET(S) PO DAILY 08/12/2018 12/09/2018 Active Lasix 20 mg tablet RxNorm: 695182 1 TABLET(S) PO DAILY NEEDED EDEMA 08/06/2018 10/04/2018 Active potassium chloride ER 10 mEq tablet,extended release RxNorm: 619901 1 TABLET(S) PO DAILY NEEDED TO TAKE WHEN YOU TAKE THE LASIX 08/06/2018 10/04/2018 Active Zorvolex 35 mg capsule RxNorm: 6003638 TAKE 1 CAPSULE BY MOUTH THREE (3) TIMES DAILY 08/02/2018 11/29/2018 Active prednisone 20 mg tablet RxNorm: 797051 Tablet(s) PO 07/17/2018 No Stop Date Active 20mg tonight then starting tomorrow: 60,60,40,40,20,20,10,10 Remeron 15 mg tablet RxNorm: 432345 1/2 Tablet(s) PO QHS 07/17/2018 2019 Active Tamiflu 75 mg capsule RxNorm: 845065 1 Capsule(s) PO BID 07/17/2018 07/21/2018 Inactive Kenalog 40 mg/mL suspension for injection RxNorm: 9755411 Milliliter(s) Inj 07/17/2018 07/17/2018 Inactive Lexapro 20 mg tablet RxNorm: 448563 1 TABLET(S) PO DAILY 07/15/2018 11/11/2018 Active potassium chloride ER 10 mEq tablet,extended release RxNorm: 301858 1 Tablet(s) PO daily as needed to take when you take the lasix 07/04/2018 08/02/2018 Inactive Lasix 20 mg tablet RxNorm: 620575 1 Tablet(s) PO daily as needed edema 07/04/2018 08/02/2018 Inactive Cymbalta 30 mg capsule,delayed release RxNorm: 808005 1 CAPSULE(S) PO DAILY TO BE TAKEN WITH 60MG TO=90MG 07/01/2018 07/14/2018 Inactive hydrochlorothiazide 25 mg tablet RxNorm: 808948 1 TABLET(S) PO DAILY 06/27/2018 09/24/2018 Active Remeron 15 mg tablet RxNorm: 413494 1/2 Tablet(s) PO QHS 06/20/2018 07/16/2018 Inactive Lasix 20 mg tablet RxNorm: 093356 1 Tablet(s) PO daily 06/19/2018 06/21/2018 Inactive potassium chloride ER 10 mEq tablet,extended release RxNorm: 895601 1 Tablet(s) PO daily 06/19/2018 07/03/2018 Inactive Lexapro 20 mg tablet RxNorm: 174076 1 Tablet(s) PO daily 06/19/2018 07/14/2018 Inactive gabapentin 300 mg capsule RxNorm: 012563 1 CAPSULE(S) PO TID 06/14/2018 08/12/2018 Inactive Ambien 10 mg tablet RxNorm: 275224 1 Tablet(s) PO QHS as needed insomnia 06/10/2018 09/07/2018 Active Cymbalta 30 mg capsule,delayed release RxNorm: 438627 1 Capsule(s) PO daily 06/03/2018 06/02/2018 Inactive Cymbalta 30 mg capsule,delayed release RxNorm: 376658 1 Capsule(s) PO daily to be taken with 60mg to=90mg 06/03/2018 06/30/2018 Inactive Protonix 40 mg tablet,delayed release RxNorm: 781799 1 TABLET(S) PO DAILY 05/20/2018 08/11/2018 Inactive gabapentin 300 mg capsule RxNorm: 595940 1 CAPSULE(S) PO TID 05/15/2018 06/13/2018 Inactive Protonix 40 mg tablet,delayed release RxNorm: 469767 1 Tablet(s) PO daily 04/24/2018 05/19/2018 Inactive Zorvolex 35 mg capsule RxNorm: 2129540 TAKE 1 CAPSULE BY MOUTH THREE (3) TIMES DAILY 04/22/2018 08/01/2018 Inactive hydrochlorothiazide 25 mg tablet RxNorm: 434112 1 TABLET(S) PO DAILY 04/08/2018 06/26/2018 Inactive Zorvolex 35 mg capsule RxNorm: 6038852 TAKE 1 CAPSULE BY MOUTH THREE (3) TIMES DAILY 03/27/2018 04/21/2018 Inactive gabapentin 300 mg capsule RxNorm: 197415 1 CAPSULE(S) PO TID 03/25/2018 04/14/2018 Inactive hydrochlorothiazide 25 mg tablet RxNorm: 020672 1 Tablet(s) PO daily 03/14/2018 04/07/2018 Inactive Victoza 2-Marek 0.6 mg/0.1 mL (18 mg/3 mL) subcutaneous pen injector RxNorm: 348844 Milligram(s) INJECT 1.8 MG SUB-Q ONCE DAILY 02/27/2018 08/20/2019 Active qty sufficient Xanax 1 mg tablet RxNorm: 104013 1-2 Tablet(s) PO QHS as needed insomnia 02/27/2018 05/27/2018 Inactive atorvastatin 20 mg tablet RxNorm: 784472 1 Tablet(s) PO daily 02/27/2018 05/22/2019 Active Cymbalta 60 mg capsule,delayed release RxNorm: 048283 TAKE 1 CAPSULE BY MOUTH DAILY 02/27/2018 02/26/2018 Inactive Cymbalta 60 mg capsule,delayed release RxNorm: 754150 1 Capsule(s) PO daily TAKE 1 CAPSULE BY MOUTH DAILY 02/27/2018 07/14/2018 Inactive gabapentin 300 mg capsule RxNorm: 864217 1 Capsule(s) PO TID 02/27/2018 03/24/2018 Inactive meloxicam 7.5 mg tablet RxNorm: 020156 1 Tablet(s) PO daily 1 TABLET(S) PO DAILY 02/27/2018 04/14/2018 Inactive Ambien 10 mg tablet RxNorm: 568634 1 Tablet(s) PO QHS as needed insomnia 02/27/2018 05/25/2018 Inactive atorvastatin 20 mg tablet RxNorm: 392471 1 Tablet(s) PO daily 02/05/2018 02/26/2018 Inactive atorvastatin 20 mg tablet RxNorm: 345395 1 Tablet(s) PO daily 02/05/2018 02/04/2018 Inactive meloxicam 7.5 mg tablet RxNorm: 471651 1 TABLET(S) PO DAILY 02/01/2018 02/26/2018 Inactive oxycodone 15 mg tablet RxNorm: 4051670 1 Tablet(s) PO QID as needed 01/07/2018 02/19/2018 Inactive lactulose 20 gram/30 mL oral solution RxNorm: 567116 15-30 Milliliter(s) PO BID as needed 12/31/2017 02/20/2018 Inactive meloxicam 7.5 mg tablet RxNorm: 255718 1 TABLET(S) PO DAILY 12/13/2017 01/31/2018 Inactive Zorvolex 35 mg capsule RxNorm: 0959023 1 Capsule(s) PO TID 12/13/2017 02/20/2018 Inactive Ambien 10 mg tablet RxNorm: 807854 1 Tablet(s) PO QHS as needed insomnia 12/04/2017 02/26/2018 Inactive oxycodone 15 mg tablet RxNorm: 9369464 1 Tablet(s) PO QID as needed 12/04/2017 01/06/2018 Inactive prednisone 20 mg tablet RxNorm: 933174 2 Tablet(s) PO daily 12/04/2017 12/08/2017 Inactive Victoza 2-Marek 0.6 mg/0.1 mL (18 mg/3 mL) subcutaneous pen injector RxNorm: 328472 Milligram(s) INJECT 1.8 MG SUB-Q ONCE DAILY 11/20/2017 02/26/2018 Inactive meloxicam 7.5 mg tablet RxNorm: 393439 1 Tablet(s) PO daily 11/20/2017 12/12/2017 Inactive phentermine 37.5 mg tablet RxNorm: 689326 1 Tablet(s) PO daily 11/20/2017 12/19/2017 Inactive Ambien 10 mg tablet RxNorm: 335928 1 Tablet(s) PO QHS as needed insomnia 11/20/2017 12/18/2017 Inactive Xanax 1 mg tablet RxNorm: 213032 1.5 Tablet(s) PO QHS as needed insomnia 11/20/2017 02/26/2018 Inactive hydrocodone 7.5 mg-acetaminophen 325 mg tablet RxNorm: 476778 1 Tablet(s) PO TID as needed 11/16/2017 01/06/2018 Inactive Cymbalta 60 mg capsule,delayed release RxNorm: 571902 TAKE 1 CAPSULE BY MOUTH DAILY 11/02/2017 02/26/2018 Inactive Xanax 1 mg tablet RxNorm: 600560 1 Tablet(s) PO BID PRN as needed anxiety 10/04/2017 11/19/2017 Inactive Victoza 2-Marek 0.6 mg/0.1 mL (18 mg/3 mL) subcutaneous pen injector RxNorm: 046349 INJECT 1.8 MG SUB-Q ONCE DAILY 10/04/2017 11/19/2017 Inactive hydrocodone 7.5 mg-acetaminophen 325 mg tablet RxNorm: 581768 1 Tablet(s) PO TID as needed 09/17/2017 11/15/2017 Inactive hydrocodone 7.5 mg-acetaminophen 325 mg tablet RxNorm: 458102 1 Tablet(s) PO TID as needed 09/10/2017 09/16/2017 Inactive prednisone 10 mg tablet RxNorm: 798383 Tablet(s) PO 09/10/2017 11/13/2017 Inactive 6,5,4,3,2,1 Zorvolex 35 mg capsule RxNorm: 7645460 1 Capsule(s) PO TID 09/07/2017 11/13/2017 Inactive Ambien 10 mg tablet RxNorm: 268614 1 Tablet(s) PO QHS as needed insomnia 08/29/2017 11/19/2017 Inactive Zorvolex 35 mg capsule RxNorm: 3152009 1 Capsule(s) PO TID 08/28/2017 09/06/2017 Inactive Zorvolex 35 mg capsule RxNorm: 6394133 1 Capsule(s) PO TID 08/13/2017 08/27/2017 Inactive Zorvolex 35 mg capsule RxNorm: 3977556 1 Capsule(s) PO TID 08/13/2017 08/12/2017 Inactive prednisone 20 mg tablet RxNorm: 986293 2 Tablet(s) PO daily 07/31/2017 08/04/2017 Inactive hydrocodone 7.5 mg-acetaminophen 325 mg tablet RxNorm: 778285 1 Tablet(s) PO TID as needed 07/31/2017 09/09/2017 Inactive Zorvolex 35 mg capsule RxNorm: 7912571 1 Capsule(s) PO TID as needed 07/31/2017 11/13/2017 Inactive ceftriaxone 500 mg solution for injection RxNorm: 8085281 1 Milliliter(s) Inj 06/27/2017 06/27/2017 Inactive Keflex 500 mg capsule RxNorm: 028338 1 Capsule(s) PO TID 06/27/2017 07/03/2017 Inactive Ambien 10 mg tablet RxNorm: 932540 1 Tablet(s) PO daily 05/29/2017 08/25/2017 Inactive tramadol 50 mg tablet RxNorm: 771043 1 Tablet(s) PO TID as needed 05/29/2017 07/27/2017 Inactive Xanax 1 mg tablet RxNorm: 741115 1 Tablet(s) PO BID PRN as needed anxiety 05/21/2017 10/03/2017 Inactive alprazolam 1 mg tablet RxNorm: 632479 1 Tablet(s) PO BID as needed 05/21/2017 06/19/2017 Inactive Celebrex 200 mg capsule RxNorm: 504236 1 CAPSULE(S) PO BID 05/04/2017 11/05/2017 Inactive prednisone 20 mg tablet RxNorm: 468546 2 Tablet(s) PO daily 04/20/2017 04/24/2017 Inactive Ambien 10 mg tablet RxNorm: 225178 Tablet(s) PO 04/20/2017 05/28/2017 Inactive hydrocodone 5 mg-acetaminophen 325 mg tablet RxNorm: 542536 1 Tablet(s) PO QID as needed 04/20/2017 08/01/2017 Inactive Cymbalta 60 mg capsule,delayed release RxNorm: 146837 1 Capsule(s) PO daily 04/20/2017 02/26/2018 Inactive Victoza 2-Marek 0.6 mg/0.1 mL (18 mg/3 mL) subcutaneous pen injector RxNorm: 085044 INJECT 1.8 MG SUB-Q ONCE DAILY 03/26/2017 09/21/2017 Inactive diazepam 2 mg tablet RxNorm: 613605 1 Tablet(s) PO QHS as needed insomnia 01/28/2017 05/07/2017 Inactive Victoza 2-Marek 0.6 mg/0.1 mL (18 mg/3 mL) subcutaneous pen injector RxNorm: 396301 1.8 Milligram(s) SQ daily 01/26/2017 03/25/2017 Inactive dispense quantity sufficient Tussionex Pennkinetic ER 10 mg-8 mg/5 mL suspension,extended release RxNorm: 0659462 5 Milliliter(s) PO BID 01/11/2017 01/15/2017 Inactive Xanax 1 mg tablet RxNorm: 514234 1 Tablet(s) PO BID PRN as needed anxiety 01/11/2017 05/20/2017 Inactive Zithromax Z-Marek 250 mg tablet RxNorm: 630616 1 Tablet(s) PO UD 01/11/2017 01/15/2017 Inactive zpack albuterol sulfate 2.5 mg/3 mL (0.083 %) solution for nebulization RxNorm: 724510 3 Milliliter(s) INH UD 01/11/2017 11/13/2017 Inactive prednisone 20 mg tablet RxNorm: 016456 2 Tablet(s) PO daily 01/11/2017 01/15/2017 Inactive Kenalog 40 mg/mL suspension for injection RxNorm: 7058210 1.5 Milliliter(s) Inj 01/11/2017 01/11/2017 Inactive Celebrex 200 mg capsule RxNorm: 675220 1 Capsule(s) PO BID 11/30/2016 02/27/2017 Inactive Ambien 5 mg tablet RxNorm: 980553 1 Tablet(s) PO HS PRN 11/30/2016 08/07/2017 Inactive trazodone 50 mg tablet RxNorm: 221928 1/2 to 1 Tablet(s) PO QHS 10/13/2016 10/12/2016 Inactive trazodone 50 mg tablet RxNorm: 993601 1/2 to 1 Tablet(s) PO QHS 10/13/2016 11/29/2016 Inactive Belsomra 10 mg tablet RxNorm: 7198058 1 Tablet(s) PO QHS 09/28/2016 11/29/2016 Inactive may increase to 20mg if 10mg not effective Cymbalta 60 mg capsule,delayed release RxNorm: 770382 1 Capsule(s) PO daily 08/24/2016 03/21/2017 Inactive Xanax 1 mg tablet RxNorm: 017250 1 Tablet(s) PO BID PRN as needed anxiety 08/24/2016 01/10/2017 Inactive Victoza 2-Marek 0.6 mg/0.1 mL (18 mg/3 mL) subcutaneous pen injector RxNorm: 006457 Milligram(s) SQ 08/24/2016 08/23/2016 Inactive Victoza 2-Marek 0.6 mg/0.1 mL (18 mg/3 mL) subcutaneous pen injector RxNorm: 960034 1.8 Milligram(s) SQ 08/24/2016 01/25/2017 Inactive Vitamin D2 50,000 unit capsule RxNorm: 031447 1 Capsule(s) PO QW 07/13/2016 10/10/2016 Inactive Cymbalta 30 mg capsule,delayed release RxNorm: 337863 1 Capsule(s) PO daily 07/13/2016 08/23/2016 Inactive Belviq XR 20 mg tablet,extended release RxNorm: 7229670 1 Tablet(s) PO daily 05/30/2016 05/29/2016 Inactive prednisone 20 mg tablet RxNorm: 233257 2 Tablet(s) PO daily 05/30/2016 06/03/2016 Inactive prednisone 20 mg tablet RxNorm: 068263 2 Tablet(s) PO daily 05/30/2016 05/29/2016 Inactive Belviq XR 20 mg tablet,extended release RxNorm: 9006929 1 Tablet(s) PO daily 05/30/2016 06/28/2016 Inactive cyclobenzaprine 5 mg tablet RxNorm: 200365 1-2 Tablet(s) PO TID as needed 05/19/2016 05/23/2016 Inactive metoprolol succinate ER 25 mg tablet,extended release 24 hr RxNorm: 367180 1 Tablet(s) PO QPM 04/10/2016 04/13/2016 Inactive metoprolol succinate ER 25 mg tablet,extended release 24 hr RxNorm: 770366 1 Tablet(s) PO QPM 04/10/2016 04/09/2016 Inactive escitalopram 10 mg tablet RxNorm: 813670 1 Tablet(s) PO daily 03/16/2016 07/12/2016 Inactive estradiol 1 mg tablet RxNorm: 536905 1 Tablet(s) PO every other day 03/16/2016 05/15/2016 Inactive Kenalog 40 mg/mL suspension for injection RxNorm: 3998919 Milliliter(s) Inj 02/28/2016 02/28/2016 Inactive Zithromax Z-Marek 250 mg tablet RxNorm: 682060 1 Tablet(s) PO UD 02/28/2016 03/03/2016 Inactive zpack Lexapro 10 mg tablet RxNorm: 022581 1 Tablet(s) PO daily 09/27/2015 02/27/2016 Inactive Lexapro 10 mg tablet RxNorm: 665676 1 Tablet(s) PO daily 08/30/2015 09/26/2015 Inactive Vimovo 500 mg-20 mg tablet,immediate and delay release RxNorm: 314044 1 Tablet(s) PO BID as needed for pain 08/30/2015 09/26/2015 Inactive azithromycin 250 mg tablet RxNorm: 233685 1 Tablet(s) PO UD 2 pills on day #1, then one pill daily x 4 days 07/15/2015 01/12/2016 Inactive hydrocodone 10 mg-acetaminophen 325 mg tablet RxNorm: 781125 1 Tablet(s) PO QID 06/16/2015 01/12/2016 Inactive pramipexole 0.5 mg tablet RxNorm: 077640 1 Tablet(s) PO QPM 06/16/2015 07/14/2015 Inactive Celebrex 200 mg capsule RxNorm: 002564 1 Capsule(s) PO daily 05/03/2015 05/02/2015 Inactive Celebrex 200 mg capsule RxNorm: 120180 1 Capsule(s) PO daily 05/03/2015 01/12/2016 Inactive hydrocodone 7.5 mg-acetaminophen 325 mg tablet RxNorm: 358648 1 Tablet(s) PO Q6 PRN 05/03/2015 06/15/2015 Inactive Mobic 15 mg tablet RxNorm: 676205 1 Tablet(s) PO daily 04/02/2015 05/02/2015 Inactive hydrocodone 7.5 mg-acetaminophen 325 mg tablet RxNorm: 797607 1 Tablet(s) PO Q6 PRN 04/02/2015 05/02/2015 Inactive hydrocodone 5 mg-acetaminophen 325 mg tablet RxNorm: 246296 1 Tablet(s) PO Q6 as needed 12/11/2014 04/01/2015 Inactive Pennsaid 1.5 % topical drops RxNorm: 408469 40 Drop(s) TOP QID as needed 12/07/2014 02/04/2015 Inactive Apply 40 drops to each knee joint 4 times per day as needed for osteoarthritis pain estradiol 1 mg tablet RxNorm: 342463 1 Tablet(s) PO QHS No Start Date 03/15/2016 Inactive Xanax 0.5 mg tablet RxNorm: 870954 1 Tablet(s) PO Q6 as needed anxiety No Start Date 08/23/2016 Inactive Tylenol Extra Strength 500 mg tablet RxNorm: 479020 3 Tablet(s) PO BID after breakfast and after lunch No Start Date 01/12/2016 Inactive lactulose 20 gram/30 mL oral solution RxNorm: 342945 15-30 Milliliter(s) PO BID as needed No Start Date 12/30/2017 Inactive hydrocodone 5 mg-acetaminophen 325 mg tablet RxNorm: 963572 1 Tablet(s) PO Q6 as needed No Start Date 12/10/2014 Inactive Phenergan-Codeine syrup RxNorm: 5-10 Milliliter(s) PO QID as needed No Start Date 11/13/2017 Inactive ibuprofen 200 mg capsule RxNorm: 753867 4 Capsule(s) PO QID as needed No Start Date 04/01/2015 Inactive Medication Administered Medication Codes Instructions Start Date Status Kenalog 40 mg/mL suspension for injection RxNorm: 0350589 Milliliter 07/17/2018 No longer Active ceftriaxone 500 mg solution for injection RxNorm: 6800827 1Milliliter 06/27/2017 No longer Active Kenalog 40 mg/mL suspension for injection RxNorm: 2213168 1.5Milliliter 01/11/2017 No longer Active Kenalog 40 mg/mL suspension for injection RxNorm: 7427694 Milliliter 02/28/2016 No longer Active Immunizations Vaccine [...] Item Item Code Result Date Influenza A+B Xmn958 Influ A+B Pos Influenza A 07/17/2018 %Hba1C Vci143 % HbA1c 18474- 6 6.7 % 11/20/2017 %Hba1C Rbw008 Gluc Ave 146 mg/dL 11/20/2017 Free T4 Kxa683 FREE T4 0.76 ng/dL 05/21/2017 Tsh Ord6 hTSH II 1.27 uIU/mL 05/21/2017 Comp Metabolic Rhr594 NA 140 mEq/L 05/21/2017 Comp Metabolic Efa949 K 3.9 mEq/L 05/21/2017 Comp Metabolic Boo435 CL 101 mEq/L 05/21/2017 Comp Metabolic Srk641 CO2 28.0 mEq/L 05/21/2017 Comp Metabolic Bkm598 ANION GAP 15 05/21/2017 Comp Metabolic Csb954 GLUCOSE 155 mg/dL 05/21/2017 Comp Metabolic Bkd428 Creat 0.7 mg/dL 05/21/2017 Comp Metabolic Doj091 eGFR 87 ml/min/1.73m2 05/21/2017 Comp Metabolic Ofh377 BUN 16 mg/dL 05/21/2017 Comp Metabolic Syf562 B/C Ratio 21.6 Ratio 05/21/2017 Comp Metabolic Rrn988 CALCIUM 9.4 mg/dL 05/21/2017 Comp Metabolic Dco880 ALK PHOS 132 U/L 05/21/2017 Comp Metabolic Mwz401 AST(SGOT) 16 U/L 05/21/2017 Comp Metabolic Blt065 ALT(SGPT) 20 U/L 05/21/2017 Comp Metabolic Auu141 BILI T 0.4 mg/dL 05/21/2017 Comp Metabolic Sif863 ALBUMIN 4.0 g/dL 05/21/2017 Comp Metabolic Acd660 TPRO 6.7 g/dL 05/21/2017 Comp Metabolic Lma719 GLOB 2.7 g/dL 05/21/2017 Comp Metabolic Cso591 A/G Ratio 1.5 Ratio 05/21/2017 Comp Metabolic Ywt044 Osmo 284 mOsmo 05/21/2017 Cbc With Differential [...] 28.9 pg 05/21/2017 Cbc With Differential Ord2 [place]% 5.5 % 05/21/2017 Cbc With Differential Ord2 [...] 2.65 K/ul 05/21/2017 Cbc With Differential Ord2 [place] ABS# 0.8 K/ul 05/21/2017 Cbc With Differential Ord2 Eos ABS# 0.1 K/ul 05/21/2017 Cbc With Differential Ord2 Baso ABS# 0.0 K/ul 05/21/2017 Estrogens Total 315870 ESTROGENS, TOTAL 54 pg/mL 05/24/2016 Magnesium Ord90 Mag 1.8 mg/dL 05/19/2016 Tsh Ord6 hTSH II 1.56 uIU/mL 05/19/2016 Progesterone Prog 0.03 ng/mL 05/19/2016 Comp Metabolic Ctk132 NA 136 mEq/L 05/19/2016 Comp Metabolic Yma434 K 4.3 mEq/L 05/19/2016 Comp Metabolic Prm922 CL 100 mEq/L 05/19/2016 Comp Metabolic Wwk202 CO2 28.0 mEq/L 05/19/2016 Comp Metabolic Dox496 ANION GAP 12 05/19/2016 Comp Metabolic Rrh480 GLUCOSE 138 mg/dL 05/19/2016 Comp Metabolic Wqk015 Creat 0.7 mg/dL 05/19/2016 Comp Metabolic Nrq962 eGFR 89 ml/min/1.73m2 05/19/2016 Comp Metabolic Agz524 BUN 15 mg/dL 05/19/2016 Comp Metabolic Gbs700 B/C Ratio 20.5 Ratio 05/19/2016 Comp Metabolic Glr123 CALCIUM 9.7 mg/dL 05/19/2016 Comp Metabolic Qbt995 ALK PHOS 106 U/L 05/19/2016 Comp Metabolic Eyk313 AST(SGOT) 21 U/L 05/19/2016 Comp Metabolic Kwh659 ALT(SGPT) 24 U/L 05/19/2016 Comp Metabolic Amn663 BILI T 0.4 mg/dL 05/19/2016 Comp Metabolic Emh152 ALBUMIN 4.1 g/dL 05/19/2016 Comp Metabolic Zng635 TPRO 7.1 g/dL 05/19/2016 Comp Metabolic Cgv208 GLOB 3.0 g/dL 05/19/2016 Comp Metabolic Oyb708 A/G Ratio 1.4 Ratio 05/19/2016 Comp Metabolic Ybc966 Osmo 275 mOsmo 05/19/2016 Cbc With Differential [...] 28.5 pg 05/19/2016 Cbc With Differential Ord2 [place]% 6.5 % 05/19/2016 Cbc With Differential Ord2 [...] 2.33 K/ul 05/19/2016 Cbc With Differential Ord2 [place] ABS# 0.6 K/ul 05/19/2016 Cbc With Differential Ord2 Eos ABS# 0.1 K/ul 05/19/2016 Cbc With Differential Ord2 Baso ABS# 0.0 K/ul 05/19/2016 C RAP A SC [id number] Strep A Negative 02/28/2016 Tsh Ord6 hTSH [...] 26.2 pg 08/16/2015 Cbc With Differential Ord2 [place]% 7.1 % 08/16/2015 Cbc With Differential Ord2 [...] 2.32 K/ul 08/16/2015 Cbc With Differential Ord2 [place] ABS# 0.6 K/ul 08/16/2015 Cbc With Differential Ord2 Eos ABS# 0.1 K/ul 08/16/2015 Cbc With Differential Ord2 Baso ABS# 0.0 K/ul 08/16/2015 Cbc With Differential Ord2 New Analyzer Notice Please note new ref ranges starting 05-26-2015 due to implemntation of new five part differential hematolgy analyzer. 08/16/2015 Comp Metabolic Las902 NA 132 mEq/L 08/16/2015 Comp Metabolic Elt686 K 3.6 mEq/L 08/16/2015 Comp Metabolic Aym096 CL 99 mEq/L 08/16/2015 Comp Metabolic Guj734 CO2 23.0 mEq/L 08/16/2015 Comp Metabolic Phz542 ANION GAP 14 08/16/2015 Comp Metabolic Xud211 GLUCOSE 101 mg/dL 08/16/2015 Comp Metabolic Zlf903 Creat 0.7 mg/dL 08/16/2015 Comp Metabolic Wza118 eGFR 100 ml/min/1.73m2 08/16/2015 Comp Metabolic Epv017 BUN 10 mg/dL 08/16/2015 Comp Metabolic Pls407 B/C Ratio 15.2 Ratio 08/16/2015 Comp Metabolic Wvy725 CALCIUM 9.3 mg/dL 08/16/2015 Comp Metabolic Lgh775 ALK PHOS 100 U/L 08/16/2015 Comp Metabolic Lsl416 AST(SGOT) 14 U/L 08/16/2015 Comp Metabolic Eqt358 ALT(SGPT) 11 U/L 08/16/2015 Comp Metabolic Jve212 BILI T 0.3 mg/dL 08/16/2015 Comp Metabolic Enn434 ALBUMIN 3.9 g/dL 08/16/2015 Comp Metabolic Cjg733 TPRO 7.1 g/dL 08/16/2015 Comp Metabolic Bvz534 GLOB 3.2 g/dL 08/16/2015 Comp Metabolic Vvc536 A/G Ratio 1.2 Ratio 08/16/2015 Comp Metabolic Xmk962 Osmo 264 mOsmo 08/16/2015 Lipid Ord30 CHOL 209 mg/dL 12/03/2014 Lipid Ord30 HDL 42.0 mg/dl 12/03/2014 Lipid Ord30 TRIG 219 mg/dL 12/03/2014 Lipid Ord30 LDL 123 mg/dL 12/03/2014 Lipid Ord30 C/HDL 5.0 Ratio 12/03/2014 Comp Metabolic Xjl953 NA 132 mEq/L 12/03/2014 Comp Metabolic Har323 K 4.0 mEq/L 12/03/2014 Comp Metabolic Uit846 CL 101 mEq/L 12/03/2014 Comp Metabolic Clg544 CO2 22.0 mEq/L 12/03/2014 Comp Metabolic Hsk867 ANION GAP 13 12/03/2014 Comp Metabolic Dvm727 GLUCOSE 123 mg/dL 12/03/2014 Comp Metabolic Acx408 Creat 0.7 mg/dL 12/03/2014 Comp Metabolic Sku801 eGFR 97 ml/min/1.73m2 12/03/2014 Comp Metabolic Uvz315 BUN 10 mg/dL 12/03/2014 Comp Metabolic Uoj260 B/C Ratio 14.7 Ratio 12/03/2014 Comp Metabolic Hna032 CALCIUM 9.2 mg/dL 12/03/2014 Comp Metabolic Vyx055 ALK PHOS 88 U/L 12/03/2014 Comp Metabolic Mwl661 AST(SGOT) 18 U/L 12/03/2014 Comp Metabolic Okn548 ALT(SGPT) 17 U/L 12/03/2014 Comp Metabolic Glc107 BILI T 0.5 mg/dL 12/03/2014 Comp Metabolic Btt380 ALBUMIN 3.9 g/dL 12/03/2014 Comp Metabolic Bxe040 TPRO 6.8 g/dL 12/03/2014 Comp Metabolic Exo745 GLOB 2.9 g/dL 12/03/2014 Comp Metabolic Fda617 A/G Ratio 1.3 Ratio 12/03/2014 Comp Metabolic Kgp913 Osmo 265 mOsmo 12/03/2014 Tsh Ord6 hTSH II 1.13 uIU/mL 12/03/2014 D-Dimer D-DIMER 168 NG/ML 12/03/2014 D-Dimer [id number] COMMENT 12/03/2014 Cbc With Differential Ord2 WBC [...] Procedure Codes Date THER/PROPH/DIAG INJ SC/IM CPT-4: 87942 07/17/2018 TRIAMCINOLONE ACET INJ NOS CPT-4: J3301 07/17/2018 THER/PROPH/DIAG INJ SC/IM CPT-4: 63254 06/27/2017 ROCEPHIN, PER 250 MG CPT- 4: J0696 06/27/2017 IMMUNIZATION ADMIN CPT- 4: 87356 03/16/2017 FLU VAC NO PRSV 4 FLETCHER 3 YRS+ CPT-4: 62465 03/16/2017 Pneumococcal Polysaccharide Vaccine, 23-Valent, Ad CPT-4: 93995 03/16/2017 IMMUNIZATION ADMIN EACH ADD CPT-4: 64821 03/16/2017 TRIAMCINOLONE ACET INJ NOS CPT-4: J3301 01/11/2017 TRIAMCINOLONE ACET INJ NOS CPT-4: J3301 02/28/2016 Vital Signs Date Vital 08/12/2018 Blood Pressure 1: 124/68 Code: 8480-6 BMI: 38.4 Code: 51342-7 Heart Rate 1: 79 bpm Height: 5'6" SpO2: 94% Weight: 238 lbs 07/17/2018 Blood Pressure 1: 126/72 Code: 8480-6 BMI: 38.6 Code: 63843-5 Heart Rate 1: 85 bpm Height: 5'6" SpO2: 95% Temperature: 36.9 (C) / 98.4 (F) Weight: 239 lbs 07/04/2018 Blood Pressure 1: 132/76 Code: 8480-6 Heart Rate 1: 80 bpm Height: SpO2: 97% Weight: 06/19/2018 Blood Pressure 1: 124/74 Code: 8480-6 BMI: 38.6 Code: 21493-5 Heart Rate 1: 85 bpm Height: 5'6" SpO2: 95% Weight: 239 lbs 04/24/2018 Blood Pressure 1: 128/74 Code: 8480-6 BMI: 37.8 Code: 84840-5 Heart Rate 1: 107 bpm Height: 5'6" SpO2: 98% Weight: 234 lbs 04/17/2018 Blood Pressure 1: 120/64 Code: 8480-6 BMI: 37.8 Code: 30076-3 Heart Rate 1: 84 bpm Height: 5'6" SpO2: 96% Weight: 234 lbs 03/14/2018 Blood Pressure 1: 140/82 Code: 8480-6 BMI: 37.8 Code: 70818-4 Heart Rate 1: 85 bpm Height: 5'6" SpO2: 98% Weight: 234 lbs 02/27/2018 Blood Pressure 1: 142/68 Code: 8480-6 BMI: 36.5 Code: 03867-9 Heart Rate 1: 84 bpm Height: 5'6" SpO2: 97% Weight: 226 lbs 12/19/2017 Blood Pressure 1: 130/86 Code: 8480-6 BMI: 35.7 Code: 39729-4 Heart Rate 1: 94 bpm Height: 5'6" Weight: 221 lbs 12/04/2017 Blood Pressure 1: 138/78 Code: 8480-6 BMI: 36.6 Code: 10515-3 Heart Rate 1: 94 bpm Height: 5'6" SpO2: 98% Weight: 227 lbs 11/20/2017 Weight: 233 lbs 09/10/2017 Blood Pressure 1: 132/86 Code: 8480-6 Heart Rate 1: 86 bpm Height: Weight: 08/14/2017 Blood Pressure 1: 120/74 Code: 8480-6 BMI: 33.9 Code: 14689-7 Heart Rate 1: 92 bpm Height: 5'6" SpO2: 94% Weight: 210 lbs 07/31/2017 Blood Pressure 1: 140/80 Code: 8480-6 BMI: 33.9 Code: 55709-6 Heart Rate 1: 96 bpm Height: 5'6" SpO2: 97% Weight: 210 lbs 06/27/2017 Blood Pressure 1: 128/80 Code: 8480-6 BMI: 33.9 Code: 75933-4 Heart Rate 1: 85 bpm Height: 5'6" [...] 1: 126/ Code: 8480-6 BMI: 39.9 Code: 81302-7 Heart Rate 1: 79 bpm Height: 5'6" SpO2: 97% Weight: 247 lbs 01/26/2017 Blood Pressure 1: 132/74 Code: 8480-6 BMI: 37.8 Code: 57161-1 Heart Rate 1: 74 bpm Height: 5'6" SpO2: 97% Weight: 234 lbs 01/11/2017 Blood Pressure 1: 118/68 Code: 8480-6 BMI: 38.7 Code: 26561-4 Heart Rate 1: 91 bpm Height: 5'6" SpO2: 96% Weight: 240 lbs 11/30/2016 Blood Pressure 1: 132/76 Code: 8480-6 BMI: 38.3 Code: 20238-9 Heart Rate 1: 71 bpm Height: 5'6" SpO2: 92% Weight: 237 lbs 09/28/2016 Blood Pressure 1: 122/72 Code: 8480-6 BMI: 39.1 Code: 93843-0 Heart Rate 1: 88 bpm Height: 5'6" SpO2: 94% Weight: 242 lbs 08/24/2016 Blood Pressure 1: 130/87 Code: 8480-6 BMI: 41.5 Code: 93068-8 Heart Rate 1: 95 bpm Height: 5'6" Respiratory Rate: 16 bpm SpO2: 98% Temperature: 36.9 (C) / 98.5 (F) Weight: 257 lbs 07/13/2016 Blood Pressure 1: 132/84 Code: 8480-6 BMI: 42.0 Code: 35231-5 Heart Rate 1: 73 bpm Height: 5'6" SpO2: 97% Weight: 260 lbs 05/19/2016 Blood Pressure 1: 138/76 Code: 8480-6 BMI: 40.8 Code: 40001-4 Heart Rate 1: 80 bpm Height: 5'6" SpO2: 98% Weight: 253 lbs 03/16/2016 Blood Pressure 1: 122/70 Code: 8480-6 BMI: 40.4 Code: 50427-1 Heart Rate 1: 72 bpm Height: 5'6" SpO2: 98% Weight: 250 lbs 02/28/2016 Blood Pressure 1: 136/86 Code: 8480-6 BMI: 40.2 Code: 54513-8 Heart Rate 1: 87 bpm Height: 5'6" SpO2: 96% Temperature: 36.3 (C) / 97.3 (F) Weight: 249 lbs 01/13/2016 Blood Pressure 1: 120/76 Code: 8480-6 BMI: 40.4 Code: 53086-2 Heart Rate 1: 68 bpm Height: 5'6" SpO2: 97% Weight: 250 lbs 09/27/2015 Blood Pressure 1: 112/70 Code: 8480-6 BMI: 38.4 Code: 30243-5 Heart Rate 1: 76 bpm Height: 5'6" SpO2: 98% Weight: 238 lbs 08/30/2015 Blood Pressure 1: 144/82 Code: 8480-6 BMI: 39.5 Code: 08477-1 Heart Rate 1: 82 bpm Height: 5'6" SpO2: 97% Weight: 245 lbs 08/16/2015 Blood Pressure 1: 140/72 Code: 8480-6 BMI: 38.9 Code: 82662-2 Heart Rate 1: 72 bpm Height: 5'6" SpO2: 97% Weight: 241 lbs 07/15/2015 Blood Pressure 1: 128/80 Code: 8480-6 BMI: 39.3 Code: 14655-3 Heart Rate 1: 86 bpm Height: 5'6" SpO2: 98% Weight: 243 lbs 8 oz 06/16/2015 Blood Pressure 1: 146/86 Code: 8480-6 BMI: 39.6 Code: 09008-9 Heart Rate 1: 76 bpm Height: 5'6" SpO2: 97% Weight: 245 lbs 8 oz 04/02/2015 Blood Pressure 1: 132/86 Code: 8480-6 BMI: 40.7 Code: 09735-8 Heart Rate 1: 94 bpm Height: 5'6" SpO2: 98% Weight: 252 lbs 12/02/2014 Blood Pressure 1: 122/90 Code: 8480-6 BMI: 41.6 Code: 48553-9 Heart Rate 1: 77 bpm Height: 5'6" [...] mellitus without complications[ICD10: E11.9] Petra Trejo MD, [facility] CPT-4: 52619 08/12/2018 25360 EST. PATIENT, LEVEL III Diagnosis: Acute laryngopharyngitis[ICD10: J06.0] Diagnosis: Cough[ICD10: R05] Diagnosis: Other allergic rhinitis[ICD10: J30.89] Diagnosis: Right upper quadrant pain[ICD10: R10.11] Petra Trejo MD, [facility] CPT-4: 07506 07/17/2018 50496 EST. PATIENT, LEVEL III Diagnosis: Generalized anxiety disorder[ICD10: F41.1] Diagnosis: Major depressive disorder, single episode, moderate[ICD10: F32.1] Petra Trejo MD, [facility] CPT-4: 08283 07/04/2018 31409 EST. PATIENT, LEVEL IV Diagnosis: Generalized anxiety disorder[ICD10: F41.1] Diagnosis: Major depressive disorder, single episode, moderate[ICD10: F32.1] Diagnosis: Other insomnia[ICD10: G47.09] Petra Trejo MD, [facility] CPT-4: 53598 06/19/2018 06624 EST. PATIENT, LEVEL IV Diagnosis: Right upper quadrant pain[ICD10: R10.11] Diagnosis: Other chest pain[ICD10: R07.89] Petra Trejo MD, [facility] CPT-4: 92980 04/24/2018 28363 EST. PATIENT, LEVEL III Diagnosis: Generalized anxiety disorder[ICD10: F41.1] Diagnosis: Major depressive disorder, recurrent, mild[ICD10: F33.0] Diagnosis: Essential (primary) hypertension[ICD10: I10] Diagnosis: Type 2 diabetes mellitus without complications[ICD10: E11.9] Petra Trejo MD, [facility] CPT-4: 82766 04/17/2018 05213 EST. PATIENT, LEVEL III Diagnosis: Localized edema[ICD10: R60.0] Diagnosis: Essential (primary) hypertension[ICD10: I10] Petra Trejo MD, [facility] CPT-4: 01905 03/14/2018 27664 EST. PATIENT, LEVEL III Diagnosis: Pain in left knee[ICD10: M25.562] Diagnosis: Other obesity due to excess calories[ICD10: E66.09] Diagnosis: Other insomnia[ICD10: G47.09] Diagnosis: Generalized anxiety disorder[ICD10: F41.1] Petra Trejo MD, [facility] CPT-4: 20767 02/27/2018 ([id number]) Miscellaneous no charge Diagnosis: Other obesity due to excess calories[ICD10: E66.09] Heidy Trejo MD, [facility] CPT-4: 93689 12/19/2017 09440 EST. PATIENT, LEVEL III Diagnosis: Pain in right foot[ICD10: M79.671] Diagnosis: Pain in right ankle and joints of right foot[ICD10: M25.571] Petra Trejo MD, [facility] CPT-4: 67204 12/04/2017 85891 EST. PATIENT, LEVEL III Diagnosis: Pain in left knee[ICD10: M25.562] Diagnosis: Type 2 diabetes mellitus without complications[ICD10: E11.9] Diagnosis: Other obesity due to excess calories[ICD10: E66.09] Petra Trejo MD, [facility] CPT-4: 24386 11/20/2017 05355 EST. PATIENT, LEVEL III Diagnosis: Pain in left knee[ICD10: M25.562] Petra Trejo MD, [facility] CPT-4: 73167 09/10/2017 46394 EST. PATIENT, LEVEL III Diagnosis: Encounter for follow-up examination after completed treatment for conditions other than malignant neoplasm[ICD10: Z09] Diagnosis: Pain in left knee[ICD10: M25.562] Petra Trejo MD, [facility] CPT-4: 53874 08/14/2017 29748 EST. PATIENT, LEVEL III Diagnosis: Pain in left knee[ICD10: M25.562] Petra Trejo MD, [facility] CPT-4: 14080 07/31/2017 46445 EST. PATIENT, LEVEL III Diagnosis: Acute laryngopharyngitis[ICD10: J06.0] Diagnosis: Other allergic rhinitis[ICD10: J30.89] Petra Trejo MD, [facility] CPT- 4: 58866 06/27/2017 98629 EST. PATIENT, LEVEL III Diagnosis: Ganglion, left hand[ICD10: M67.442] Diagnosis: Essential (primary) hypertension[ICD10: I10] Diagnosis: Generalized anxiety disorder[ICD10: F41.1] Diagnosis: Other insomnia[ICD10: G47.09] Petra Trejo MD, [facility] CPT-4: 88169 05/29/2017 97325 EST. PATIENT, LEVEL III Diagnosis: Essential (primary) hypertension[ICD10: I10] Diagnosis: Palpitations[ICD10: R00.2] Diagnosis: Generalized anxiety disorder[ICD10: F41.1] Petra Trejo MD, [facility] CPT-4: 63493 05/21/2017 76351 EST. PATIENT, LEVEL III Diagnosis: Pain in right foot[ICD10: M79.671] Petra Trejo MD, [facility] CPT-4: 38028 04/20/2017 54513 EST. PATIENT, LEVEL IV Diagnosis: Other insomnia[ICD10: G47.09] Diagnosis: Other skin changes[ICD10: R23.8] Petra Trejo MD, [facility] CPT-4: 16842 01/26/2017 74496 EST. PATIENT, LEVEL IV Diagnosis: Acute bronchitis due to other specified organisms[ICD10: J20.8] Petra Trejo MD, [facility] CPT-4: 63777 01/11/2017 ([id number]) 92469 EST. PATIENT, LEVEL IV Diagnosis: Essential (primary) hypertension[ICD10: I10] Diagnosis: Other insomnia[ICD10: G47.09] Diagnosis: Primary generalized (osteo)arthritis[ICD10: M15.0] Diagnosis: Other obesity due to excess calories[ICD10: E66.09] Claudette Trejo MD, [facility] CPT-4: 83888 11/30/2016 ([id number]) 91133 EST. PATIENT, LEVEL III Diagnosis: Other obesity due to excess calories[ICD10: E66.09] Diagnosis: Other insomnia[ICD10: G47.09] Diagnosis: Generalized anxiety disorder[ICD10: F41.1] Claudette Trejo MD, [facility] CPT-4: 63814 09/28/2016 ([id number]) 13800 EST. PATIENT, LEVEL IV Diagnosis: Generalized anxiety disorder[ICD10: F41.1] Diagnosis: Major depressive disorder, recurrent, mild[ICD10: F33.0] Diagnosis: Other obesity due to excess calories[ICD10: E66.09] Diagnosis: Other insomnia[ICD10: G47.09] Claudette Trejo MD, [facility] CPT-4: 74293 08/24/2016 ([id number]) 84000 EST. PATIENT, LEVEL III Diagnosis: Other obesity due to excess calories[ICD10: E66.09] Diagnosis: Major depressive disorder, recurrent, moderate[ICD10: F33.1] Diagnosis: Low back pain[ICD10: M54.5] Heidy Trejo MD, [facility] CPT-4: 97964 07/13/2016 35182 EST. PATIENT, LEVEL IV Diagnosis: Other muscle spasm[ICD10: M62.838] Diagnosis: Generalized anxiety disorder[ICD10: F41.1] Diagnosis: Major depressive disorder, recurrent, moderate[ICD10: F33.1] Diagnosis: Other insomnia[ICD10: G47.09] Petra Trejo MD, [facility] CPT-4: 56635 05/19/2016 ([id number]) 86012 EST. PATIENT, LEVEL III Diagnosis: Generalized anxiety disorder[ICD10: F41.1] Diagnosis: Major depressive disorder, recurrent, moderate[ICD10: F33.1] Heidy Trejo MD, [facility] CPT-4: 46336 03/16/2016 ([id number]) 72930 EST. PATIENT, LEVEL III Diagnosis: Streptococcal pharyngitis[ICD10: J02.0] Claudette Trejo MD, [facility] CPT-4: 49485 02/28/2016 ([id number]) 55863 EST. PATIENT, LEVEL III Diagnosis: Generalized anxiety disorder[ICD10: F41.1] Diagnosis: Other obesity due to excess calories[ICD10: E66.09] Heidy Trejo MD, [facility] CPT-4: 59825 01/13/2016 ([id number]) 25801 EST. PATIENT, LEVEL III Diagnosis: Generalized anxiety disorder[ICD10: F41.1] Diagnosis: Major depressive disorder, recurrent, unspecified[ICD10: F33.9] Heidy Trejo MD, [facility] CPT-4: 63682 09/27/2015 19570 EST. PATIENT, LEVEL IV Diagnosis: Chronic pain syndrome[ICD10: G89.4] Diagnosis: Other obesity due to excess calories[ICD10: E66.09] Diagnosis: Essential (primary) hypertension[ICD10: I10] Diagnosis: Generalized anxiety disorder[ICD10: F41.1] Diagnosis: Excessive and frequent menstruation with regular cycle[ICD10: N92.0] Diagnosis: Pain in right knee[ICD10: M25.561] Petra Trejo MD, [facility] CPT-4: 35015 08/30/2015 00545 EST. PATIENT, LEVEL IV Diagnosis: Palpitations[ICD10: R00.2] Diagnosis: Other obesity due to excess calories[ICD10: E66.09] Petra Trejo MD, [facility] CPT-4: 84124 08/16/2015 ([id number]) 79909 EST. PATIENT, LEVEL IV Diagnosis: Pain in right knee[ICD10: M25.561] Diagnosis: Primary generalized (osteo)arthritis[ICD10: M15.0] Diagnosis: Acute maxillary sinusitis, unspecified[ICD10: J01.00] Heidy Trejo MD, [facility] CPT-4: 68182 07/15/2015 ([id number]) 20454 EST. PATIENT, LEVEL IV Diagnosis: Primary generalized (osteo)arthritis[ICD10: M15.0] Diagnosis: Restless legs syndrome[ICD10: G25.81] Diagnosis: Chronic pain syndrome[ICD10: G89.4] [facility] CPT- 4: 87712 06/16/2015 ([id number]) 86188 EST. PATIENT, LEVEL III Diagnosis: Primary generalized (osteo)arthritis[ICD10: M15.0] Diagnosis: Varicose veins of bilateral lower extremities with pain[ICD10: I83.813] Claudette [facility] CPT-4: 26284 04/02/2015 ([id number]) OFFICE VISIT, NEW - LEVEL 3 Diagnosis: Osteoarthritis[ICD9: 715.90] Diagnosis: ABNORMAL WEIGHT GAIN[ICD9: 783.1] Diagnosis: Superficial thrombophlebitis[ICD9: 451.9] Carey Trejo MD, [facility] CPT-4: 06018 12/02/2014 Plan of Care Planned Activity Notes [...] current medications. 07/04/2018 Appointment: Petra Rivas WPtel: [phone] [...] patient. 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 03/14/2018 App[facility]ment[phone] (15 min) Moderate 03/14/2018 Patient Education: [...] ortho 02/27/2018 Appointment: [phone] (30 min) Complex 02/27/2018 Patient Education: [...] not improve. 12/04/2017 Appointment: [phone] (15 min) Moderate 12/04/2017 Patient Education: [...] control. 11/20/2017 Appointment: Petra Rivas WPtel: [phone] [place] (15 min) Moderate 11/20/2017 Patient [...] improve. 09/10/2017 Appointment: Petra Rivas WPtel: [facility] [place] (15 min) Moderate 09/10/2017 Patient [...] improve. 08/14/2017 Appointment: [phone] [place] (30 min) Complex 08/14/2017 Patient Education: Patient Medication Summary Completed 08/14/2017 Appointment: Petra Rivas WPtel: [address] [place], [place] [id number] (15 min) Moderate 08/01/2017 Visit Plan: Knee pain - pt is to use RICE - Rest, Ice, Compression, Elevation - pt is to use crutches as directed - The pt is to use prn antiinflammatories to manage acute pain. The patient is to call the office if the pain is worsening or does not improve. 07/31/2017 Appointment: Petra Rivas WPtel: [facility] (30 min) Complex 07/31/2017 Patient Education: Patient Medication Summary Completed 07/31/2017 Care Plan[facility] Pending 07/31/2017 Visit Plan: URI - Pt [...] spray. 06/27/2017 Appointment: Petra Rivas WPtel: [facility] (15 min) Moderate 06/27/2017 Patient Education: [...] Quinn 05/29/2017 Appointment: Petra Rivas WPtel: [facility] (15 min) Moderate 05/29/2017 Patient Education: Patient Medication Summary Completed 05/29/2017 Care Plan: Referral Order SNOMED-CT : [id number] Pending 05/29/2017 Appointment: Petra Rivas WPtel: [facility] (15 min) Moderate 05/28/2017 Visit Plan: [...] concerns. 05/21/2017 Appointment: Pet[facility]ivas WPtel[facility] (15 min) Moderate 05/21/2017 Patient Education: Patient Medication Summary Completed 05/21/2017 Visit Plan: Right heel pain - will send RX, pt is to do stretches as directed - The pt is to use prn antiinflammatories to manage acute pain. The patient is to call the office if the pain is worsening or does not improve. 04/20/2017 Appointment: Petra Rivastel: [phone] [facility] (30 min) Complex 04/20/2017 Patient Education: Patient Medication Summary Completed 04/20/2017 Appointment: Petra Rivas WPtel: [facility] (30 min) Complex 03/29/2017 Patient Education: Patient Medication Summary Completed 03/16/2017 Referral: Maycol Quijano Referral Initiated 02/08/2017 Care Plan: Referral Order SNOMED-CT : [id number] Pending 01/28/2017 Visit Plan: Insomnia - Pt [...] questions, or concerns. 01/26/2017 Appointment: Petra Rivastel: [facility] (30 min) [...] symptoms acutely worsen. 01/11/2017 Appointment: Petra Rivastel: [facility] (15 min) Moderate 01/11/2017 Patient Education: [...] on use. 11/30/2016 Appointment: Claudette Savage WPtel: [address] [place], [place] [phone] (15 min) Moderate 11/30/2016 Patient Education: Patient Medication Summary Completed 11/30/2016 Patient Education: Obesity Completed 11/30/2016 Care Plan: BMI Above normal followup SELF-MGMT EDUC & TRAIN 1 PT Pending 11/30/2016 Visit Plan: Rxfyeve-wikepccycl-cpwxlryf with increase in cymbalta- no changes Insomnia-RX for belsomra provided and instructed on use Obesity- patient down 15#-no changes-continue diet/exercise-follow up in 2 months 09/28/2016 Appointment: Claudette Savage WPtel: [address] [place], [place] [phone] (15 min) Moderate 09/28/2016 Patient Education: Patient Medication Summary Completed 09/28/2016 Patient Education: Obesity Completed 09/28/2016 Care Plan: BMI Above normal followup SELF-MGMT EDUC & TRAIN 1 PT Pending 09/28/2016 Visit Plan: Pbpdsho-avwqlkftve-ihdvbcsf-increase cymbalta to 60mg daily. Increase xanax as [...] insomnia/anxiety 08/24/2016 Appointment: Claudette [phone] [place] (15 min) Moderate 08/24/2016 Patient [...] improving. 07/13/2016 Appointment: [phone] (15 min) Moderate 07/13/2016 Patient [...] insomnia. 05/19/2016 Appointment: [phone] [place] (30 min) Complex 05/19/2016 Patient [...] patient. 03/16/2016 Appointment: Heidy Trejo WPtel: [facility]3 [facility] (15 min) Moderate 03/16/2016 Patient Education: Patient [...] the swab. 02/28/2016 Appointment: Claudette Savage WPtel: [phone] [place] (10 [...] stop lexapro 01/13/2016 Appointment: Heidy Trejo WPtel: [facility]8 [facility] (15 min) Moderate 01/13/2016 Patient Education: Patient [...] 09/27/2015 Care Plan: Referral Order SNOMED-CT : [id number] Pending 08/31/2015 Visit Plan: Anxiety - the [...] pain symptoms. 07/15/2015 Appointment: Heidy Trejo WPtel: [address] [place], [place] [phone] (15 min) [facility] 07/15/2015 Patient Education: Patient Medication Summary Completed [...] vein clinic 04/02/2015 Appointment: HusseinClaudette WPtel: [phone] [phone] [place] (15 min) Moderate 04/02/2015 Patient [...] Summary Completed 12/02/2014 Referral: Belle Hoffman WPtel: [address] [place] [address] they will call and set the appt with her Initiated Referral: Maycol Quijano Referral Initiated Referral: Belle Hoffman WPtel: [phone] Referral Initiated Referral: Jignesh Quinn [facility] [place] Referral Initiated Instructions Comment . Diabetes [...] she is to follow up with her secondary school registrar . Anxiety and Depression- the patient has [...] 1 mg at night for anxiety . Phdlqav-tanhesfntv-sqhgpenj-increase cymbalta to 60mg daily. Increase xanax as [...] a medication such as mirapex or requip. [employer] contrave 1 pill nightly x 1 week, [...] appropriately prescribed for this patient. BELSOMRA . Ahjbgtk-uxriarolgu-budyiwxb with increase in cymbalta-no changes Insomnia-RX for [...]
[2018-10-14] MEDS ORDERED: LIDOCAINE PF 2% 5 ML (XYLOCAINE) VIAL ONE (13:29)
[2018-10-14] MEDS ORDERED: proPOfol 200 MG/20 ML (DIPRIVAN) VIAL IV ONE (13:29)
[2018-10-14] MEDS ORDERED: MIDAZOLAM 2 MG/2 ML (VERSED) VIAL ONE (13:29)
--- OUTSIDE RECORDS SUMMARY | 2018-10-14 13:32 | XMS REPORT | CCD ---
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 Name Role Phone PP Unavailable CCM Unavailable Summary Purpose Interface Exchange Insurance Providers Payer name Policy type / Coverage type Covered green party ID Effective Begin Date Effective End Date [facility] Commercial Insurance [id number] Unknown Family history Brother Diagnosis Age At [...] Description Effective Dates Tobacco history SNOMED CT: 8570450 Quit less than 5 years ago 04/02/2015 Alcohol history Unknown occasionally drinks alcohol 04/02/2015 Marital status Unknown Manuel Vitale 12/02/2014 Number of children Unknown 3 12/02/2014 Allergies, Adverse Reactions, Alerts Substance Reaction Codes Entered Date Inactivated Date Status * NO KNOWN FOOD ALLERGIES Unknown 12/02/2014 No Inactive Date Active Penicillin Unknown 12/02/2014 No Inactive Date Active tramadol RxNorm: 43070 12/02/2014 No Inactive Date Active Past Medical [...] ICD-9: 786.59 ICD-10: R07.89 Active 04/24/2018 Unknown Essential (primary) hypertension ICD-9: 401.1 ICD-10: I10 Active 03/14/2018 Unknown Major depressive disorder, recurrent, mild ICD-9: 296.31 ICD-10: F33.0 Active 08/24/2016 Unknown Type 2 diabetes mellitus without complications ICD-9: 250.00 ICD-10: E11.9 Active 11/20/2017 Unknown Localized edema ICD-9: 782.3 ICD-10: R60.0 [...] pain ICD-9: 786.59 ICD-10: R07.89 04/24/2018 Active Essential (primary) hypertension ICD-9: 401.1 ICD-10: I10 03/14/2018 Active Major depressive disorder, recurrent, mild ICD-9: 296.31 ICD-10: F33.0 08/24/2016 Active Type 2 diabetes mellitus without complications ICD-9: 250.00 ICD-10: E11.9 11/20/2017 Active Localized edema ICD-9: 782.3 ICD-10: R60.0 [...] Start Date Stop Date Status Fill Instructions Lasix 20 mg tablet RxNorm: 663106 1 TABLET(S) PO DAILY NEEDED EDEMA 08/06/2018 10/04/2018 Active potassium chloride ER 10 mEq tablet,extended release RxNorm: 451582 1 TABLET(S) PO DAILY NEEDED TO TAKE WHEN YOU TAKE THE LASIX 08/06/2018 10/04/2018 Active Zorvolex 35 mg capsule RxNorm: 8920423 TAKE 1 CAPSULE BY MOUTH THREE (3) TIMES DAILY 08/02/2018 11/29/2018 Active prednisone 20 mg tablet RxNorm: 746552 Tablet(s) PO 07/17/2018 No Stop Date Active 20mg tonight then starting tomorrow: 60,60,40,40,20,20,10,10 Remeron 15 mg tablet RxNorm: 188833 1/2 Tablet(s) PO QHS 07/17/2018 2019 Active Tamiflu 75 mg capsule RxNorm: 199678 1 Capsule(s) PO BID 07/17/2018 07/21/2018 Inactive Kenalog 40 mg/mL suspension for injection RxNorm: 6081085 Milliliter(s) Inj 07/17/2018 07/17/2018 Inactive Lexapro 20 mg tablet RxNorm: 520673 1 TABLET(S) PO DAILY 07/15/2018 11/11/2018 Active potassium chloride ER 10 mEq tablet,extended release RxNorm: 072079 1 Tablet(s) PO daily as needed to take when you take the lasix 07/04/2018 08/02/2018 Inactive Lasix 20 mg tablet RxNorm: 1 Tablet(s) PO daily as needed edema 07/04/2018 08/02/2018 Inactive Cymbalta 30 mg capsule,delayed release RxNorm: 771377 1 CAPSULE(S) PO DAILY TO BE TAKEN WITH 60MG TO=90MG 07/01/2018 07/14/2018 Inactive hydrochlorothiazide 25 mg tablet RxNorm: 097186 1 TABLET(S) PO DAILY 06/27/2018 09/24/2018 Active Remeron 15 mg tablet RxNorm: 060626 1/2 Tablet(s) PO QHS 06/20/2018 07/16/2018 Inactive Lasix 20 mg tablet RxNorm: 093552 1 Tablet(s) PO daily 06/19/2018 06/21/2018 Inactive potassium chloride ER 10 mEq tablet,extended release RxNorm: 577288 1 Tablet(s) PO daily 06/19/2018 07/03/2018 Inactive Lexapro 20 mg tablet RxNorm: 124622 1 Tablet(s) PO daily 06/19/2018 07/14/2018 Inactive gabapentin 300 mg capsule RxNorm: 623345 1 CAPSULE(S) PO TID 06/14/2018 08/12/2018 Active Ambien 10 mg tablet RxNorm: 118988 1 Tablet(s) PO QHS as needed insomnia 06/10/2018 09/07/2018 Active Cymbalta 30 mg capsule,delayed release RxNorm: 927584 1 Capsule(s) PO daily 06/03/2018 06/02/2018 Inactive Cymbalta 30 mg capsule,delayed release RxNorm: 044639 1 Capsule(s) PO daily to be taken with 60mg to=90mg 06/03/2018 06/30/2018 Inactive Protonix 40 mg tablet,delayed release RxNorm: 420306 1 TABLET(S) PO DAILY 05/20/2018 09/16/2018 Active gabapentin 300 mg capsule RxNorm: 724300 1 CAPSULE(S) PO TID 05/15/2018 06/13/2018 Inactive Protonix 40 mg tablet,delayed release RxNorm: 313101 1 Tablet(s) PO daily 04/24/2018 05/19/2018 Inactive Zorvolex 35 mg capsule RxNorm: 9970067 TAKE 1 CAPSULE BY MOUTH THREE (3) TIMES DAILY 04/22/2018 08/01/2018 Inactive hydrochlorothiazide 25 mg tablet RxNorm: 829821 1 TABLET(S) PO DAILY 04/08/2018 06/26/2018 Inactive Zorvolex 35 mg capsule RxNorm: 9291077 TAKE 1 CAPSULE BY MOUTH THREE (3) TIMES DAILY 03/27/2018 04/21/2018 Inactive gabapentin 300 mg capsule RxNorm: 352915 1 CAPSULE(S) PO TID 03/25/2018 04/14/2018 Inactive hydrochlorothiazide 25 mg tablet RxNorm: 490018 1 Tablet(s) PO daily 03/14/2018 04/07/2018 Inactive Victoza 2-Marek 0.6 mg/0.1 mL (18 mg/3 mL) subcutaneous pen injector RxNorm: 789691 Milligram(s) INJECT 1.8 MG SUB-Q ONCE DAILY 02/27/2018 08/20/2019 Active qty sufficient Xanax 1 mg tablet RxNorm: 545409 1-2 Tablet(s) PO QHS as needed insomnia 02/27/2018 05/27/2018 Inactive atorvastatin 20 mg tablet RxNorm: 006388 1 Tablet(s) PO daily 02/27/2018 05/22/2019 Active Cymbalta 60 mg capsule,delayed release RxNorm: 683906 TAKE 1 CAPSULE BY MOUTH DAILY 02/27/2018 02/26/2018 Inactive Cymbalta 60 mg capsule,delayed release RxNorm: 386177 1 Capsule(s) PO daily TAKE 1 CAPSULE BY MOUTH DAILY 02/27/2018 07/14/2018 Inactive gabapentin 300 mg capsule RxNorm: 307492 1 Capsule(s) PO TID 02/27/2018 03/24/2018 Inactive meloxicam 7.5 mg tablet RxNorm: 601955 1 Tablet(s) PO daily 1 TABLET(S) PO DAILY 02/27/2018 04/14/2018 Inactive Ambien 10 mg tablet RxNorm: 928251 1 Tablet(s) PO QHS as needed insomnia 02/27/2018 05/25/2018 Inactive atorvastatin 20 mg tablet RxNorm: 005288 1 Tablet(s) PO daily 02/05/2018 02/26/2018 Inactive atorvastatin 20 mg tablet RxNorm: 886976 1 Tablet(s) PO daily 02/05/2018 02/04/2018 Inactive meloxicam 7.5 mg tablet RxNorm: 389075 1 TABLET(S) PO DAILY 02/01/2018 02/26/2018 Inactive oxycodone 15 mg tablet RxNorm: 5991092 1 Tablet(s) PO QID as needed 01/07/2018 02/19/2018 Inactive lactulose 20 gram/30 mL oral solution RxNorm: 124629 15-30 Milliliter(s) PO BID as needed 12/31/2017 02/20/2018 Inactive meloxicam 7.5 mg tablet RxNorm: 403315 1 TABLET(S) PO DAILY 12/13/2017 01/31/2018 Inactive Zorvolex 35 mg capsule RxNorm: 3100866 1 Capsule(s) PO TID 12/13/2017 02/20/2018 Inactive Ambien 10 mg tablet RxNorm: 509435 1 Tablet(s) PO QHS as needed insomnia 12/04/2017 02/26/2018 Inactive oxycodone 15 mg tablet RxNorm: 5081204 1 Tablet(s) PO QID as needed 12/04/2017 01/06/2018 Inactive prednisone 20 mg tablet RxNorm: 503997 2 Tablet(s) PO daily 12/04/2017 12/08/2017 Inactive Victoza 2-Marek 0.6 mg/0.1 mL (18 mg/3 mL) subcutaneous pen injector RxNorm: 615835 Milligram(s) INJECT 1.8 MG SUB-Q ONCE DAILY 11/20/2017 02/26/2018 Inactive meloxicam 7.5 mg tablet RxNorm: 075216 1 Tablet(s) PO daily 11/20/2017 12/12/2017 Inactive phentermine 37.5 mg tablet RxNorm: 667902 1 Tablet(s) PO daily 11/20/2017 12/19/2017 Inactive Ambien 10 mg tablet RxNorm: 269322 1 Tablet(s) PO QHS as needed insomnia 11/20/2017 12/18/2017 Inactive Xanax 1 mg tablet RxNorm: 856495 1.5 Tablet(s) PO QHS as needed insomnia 11/20/2017 02/26/2018 Inactive hydrocodone 7.5 mg-acetaminophen 325 mg tablet RxNorm: 819031 1 Tablet(s) PO TID as needed 11/16/2017 01/06/2018 Inactive Cymbalta 60 mg capsule,delayed release RxNorm: 477879 TAKE 1 CAPSULE BY MOUTH DAILY 11/02/2017 02/26/2018 Inactive Xanax 1 mg tablet RxNorm: 742199 1 Tablet(s) PO BID PRN as needed anxiety 10/04/2017 11/19/2017 Inactive Victoza 2-Marek 0.6 mg/0.1 mL (18 mg/3 mL) subcutaneous pen injector RxNorm: 056466 INJECT 1.8 MG SUB-Q ONCE DAILY 10/04/2017 11/19/2017 Inactive hydrocodone 7.5 mg-acetaminophen 325 mg tablet RxNorm: 895918 1 Tablet(s) PO TID as needed 09/17/2017 11/15/2017 Inactive hydrocodone 7.5 mg-acetaminophen 325 mg tablet RxNorm: 563209 1 Tablet(s) PO TID as needed 09/10/2017 09/16/2017 Inactive prednisone 10 mg tablet RxNorm: 675843 Tablet(s) PO 09/10/2017 11/13/2017 Inactive 6,5,4,3,2,1 Zorvolex 35 mg capsule RxNorm: 0328652 1 Capsule(s) PO TID 09/07/2017 11/13/2017 Inactive Ambien 10 mg tablet RxNorm: 496896 1 Tablet(s) PO QHS as needed insomnia 08/29/2017 11/19/2017 Inactive Zorvolex 35 mg capsule RxNorm: 7753036 1 Capsule(s) PO TID 08/28/2017 09/06/2017 Inactive Zorvolex 35 mg capsule RxNorm: 6774394 1 Capsule(s) PO TID 08/13/2017 08/27/2017 Inactive Zorvolex 35 mg capsule RxNorm: 7927211 1 Capsule(s) PO TID 08/13/2017 08/12/2017 Inactive prednisone 20 mg tablet RxNorm: 716484 2 Tablet(s) PO daily 07/31/2017 08/04/2017 Inactive hydrocodone 7.5 mg-acetaminophen 325 mg tablet RxNorm: 963416 1 Tablet(s) PO TID as needed 07/31/2017 09/09/2017 Inactive Zorvolex 35 mg capsule RxNorm: 4441202 1 Capsule(s) PO TID as needed 07/31/2017 11/13/2017 Inactive ceftriaxone 500 mg solution for injection RxNorm: 3849512 1 Milliliter(s) Inj 06/27/2017 06/27/2017 Inactive Keflex 500 mg capsule RxNorm: 342980 1 Capsule(s) PO TID 06/27/2017 07/03/2017 Inactive Ambien 10 mg tablet RxNorm: 805629 1 Tablet(s) PO daily 05/29/2017 08/25/2017 Inactive tramadol 50 mg tablet RxNorm: 192490 1 Tablet(s) PO TID as needed 05/29/2017 07/27/2017 Inactive Xanax 1 mg tablet RxNorm: 316693 1 Tablet(s) PO BID PRN as needed anxiety 05/21/2017 10/03/2017 Inactive alprazolam 1 mg tablet RxNorm: 921502 1 Tablet(s) PO BID as needed 05/21/2017 06/19/2017 Inactive Celebrex 200 mg capsule RxNorm: 109594 1 CAPSULE(S) PO BID 05/04/2017 11/05/2017 Inactive prednisone 20 mg tablet RxNorm: 645044 2 Tablet(s) PO daily 04/20/2017 04/24/2017 Inactive Ambien 10 mg tablet RxNorm: 685227 Tablet(s) PO 04/20/2017 05/28/2017 Inactive hydrocodone 5 mg-acetaminophen 325 mg tablet RxNorm: 481603 1 Tablet(s) PO QID as needed 04/20/2017 08/01/2017 Inactive Cymbalta 60 mg capsule,delayed release RxNorm: 588174 1 Capsule(s) PO daily 04/20/2017 02/26/2018 Inactive Victoza 2-Marek 0.6 mg/0.1 mL (18 mg/3 mL) subcutaneous pen injector RxNorm: 569616 INJECT 1.8 MG SUB-Q ONCE DAILY 03/26/2017 09/21/2017 Inactive diazepam 2 mg tablet RxNorm: 797127 1 Tablet(s) PO QHS as needed insomnia 01/28/2017 05/07/2017 Inactive Victoza 2-Marek 0.6 mg/0.1 mL (18 mg/3 mL) subcutaneous pen injector RxNorm: 648545 1.8 Milligram(s) SQ daily 01/26/2017 03/25/2017 Inactive dispense quantity sufficient Tussionex Pennkinetic ER 10 mg-8 mg/5 mL suspension,extended release RxNorm: 3862103 5 Milliliter(s) PO BID 01/11/2017 01/15/2017 Inactive Xanax 1 mg tablet RxNorm: 321261 1 Tablet(s) PO BID PRN as needed anxiety 01/11/2017 05/20/2017 Inactive Zithromax Z-Marek 250 mg tablet RxNorm: 400350 1 Tablet(s) PO UD 01/11/2017 01/15/2017 Inactive zpack albuterol sulfate 2.5 mg/3 mL (0.083 %) solution for nebulization RxNorm: 572971 3 Milliliter(s) INH UD 01/11/2017 11/13/2017 Inactive prednisone 20 mg tablet RxNorm: 234226 2 Tablet(s) PO daily 01/11/2017 01/15/2017 Inactive Kenalog 40 mg/mL suspension for injection RxNorm: 4078462 1.5 Milliliter(s) Inj 01/11/2017 01/11/2017 Inactive Celebrex 200 mg capsule RxNorm: 366704 1 Capsule(s) PO BID 11/30/2016 02/27/2017 Inactive Ambien 5 mg tablet RxNorm: 236773 1 Tablet(s) PO HS PRN 11/30/2016 08/07/2017 Inactive trazodone 50 mg tablet RxNorm: 657740 1/2 to 1 Tablet(s) PO QHS 10/13/2016 10/12/2016 Inactive trazodone 50 mg tablet RxNorm: 634095 1/2 to 1 Tablet(s) PO QHS 10/13/2016 11/29/2016 Inactive Belsomra 10 mg tablet RxNorm: 3773521 1 Tablet(s) PO QHS 09/28/2016 11/29/2016 Inactive may increase to 20mg if 10mg not effective Cymbalta 60 mg capsule,delayed release RxNorm: 564929 1 Capsule(s) PO daily 08/24/2016 03/21/2017 Inactive Xanax 1 mg tablet RxNorm: 534530 1 Tablet(s) PO BID PRN as needed anxiety 08/24/2016 01/10/2017 Inactive Victoza 2-Marek 0.6 mg/0.1 mL (18 mg/3 mL) subcutaneous pen injector RxNorm: 370546 Milligram(s) SQ 08/24/2016 08/23/2016 Inactive Victoza 2-Marek 0.6 mg/0.1 mL (18 mg/3 mL) subcutaneous pen injector RxNorm: 254307 1.8 Milligram(s) SQ 08/24/2016 01/25/2017 Inactive Vitamin D2 50,000 unit capsule RxNorm: 718803 1 Capsule(s) PO QW 07/13/2016 10/10/2016 Inactive Cymbalta 30 mg capsule,delayed release RxNorm: 080022 1 Capsule(s) PO daily 07/13/2016 08/23/2016 Inactive Belviq XR 20 mg tablet,extended release RxNorm: 2964830 1 Tablet(s) PO daily 05/30/2016 05/29/2016 Inactive prednisone 20 mg tablet RxNorm: 425314 2 Tablet(s) PO daily 05/30/2016 06/03/2016 Inactive prednisone 20 mg tablet RxNorm: 560054 2 Tablet(s) PO daily 05/30/2016 05/29/2016 Inactive Belviq XR 20 mg tablet,extended release RxNorm: 3609793 1 Tablet(s) PO daily 05/30/2016 06/28/2016 Inactive cyclobenzaprine 5 mg tablet RxNorm: 388759 1-2 Tablet(s) PO TID as needed 05/19/2016 05/23/2016 Inactive metoprolol succinate ER 25 mg tablet,extended release 24 hr RxNorm: 048441 1 Tablet(s) PO QPM 04/10/2016 04/13/2016 Inactive metoprolol succinate ER 25 mg tablet,extended release 24 hr RxNorm: 102640 1 Tablet(s) PO QPM 04/10/2016 04/09/2016 Inactive escitalopram 10 mg tablet RxNorm: 995501 1 Tablet(s) PO daily 03/16/2016 07/12/2016 Inactive estradiol 1 mg tablet RxNorm: 760156 1 Tablet(s) PO every other day 03/16/2016 05/15/2016 Inactive Kenalog 40 mg/mL suspension for injection RxNorm: 7434048 Milliliter(s) Inj 02/28/2016 02/28/2016 Inactive Zithromax Z-Marek 250 mg tablet RxNorm: 801945 1 Tablet(s) PO UD 02/28/2016 03/03/2016 Inactive zpack Lexapro 10 mg tablet RxNorm: 398803 1 Tablet(s) PO daily 09/27/2015 02/27/2016 Inactive Lexapro 10 mg tablet RxNorm: 916224 1 Tablet(s) PO daily 08/30/2015 09/26/2015 Inactive Vimovo 500 mg-20 mg tablet,immediate and delay release RxNorm: 402626 1 Tablet(s) PO BID as needed for pain 08/30/2015 09/26/2015 Inactive azithromycin 250 mg tablet RxNorm: 585123 1 Tablet(s) PO UD 2 pills on day #1, then one pill daily x 4 days 07/15/2015 01/12/2016 Inactive hydrocodone 10 mg-acetaminophen 325 mg tablet RxNorm: 598799 1 Tablet(s) PO QID 06/16/2015 01/12/2016 Inactive pramipexole 0.5 mg tablet RxNorm: 385219 1 Tablet(s) PO QPM 06/16/2015 07/14/2015 Inactive Celebrex 200 mg capsule RxNorm: 800787 1 Capsule(s) PO daily 05/03/2015 05/02/2015 Inactive Celebrex 200 mg capsule RxNorm: 410835 1 Capsule(s) PO daily 05/03/2015 01/12/2016 Inactive hydrocodone 7.5 mg-acetaminophen 325 mg tablet RxNorm: 993063 1 Tablet(s) PO Q6 PRN 05/03/2015 06/15/2015 Inactive Mobic 15 mg tablet RxNorm: 708284 1 Tablet(s) PO daily 04/02/2015 05/02/2015 Inactive hydrocodone 7.5 mg-acetaminophen 325 mg tablet RxNorm: 154153 1 Tablet(s) PO Q6 PRN 04/02/2015 05/02/2015 Inactive hydrocodone 5 mg-acetaminophen 325 mg tablet RxNorm: 608050 1 Tablet(s) PO Q6 as needed 12/11/2014 04/01/2015 Inactive Pennsaid 1.5 % topical drops RxNorm: 325003 40 Drop(s) TOP QID as needed 12/07/2014 02/04/2015 Inactive Apply 40 drops to each knee joint 4 times per day as needed for osteoarthritis pain estradiol 1 mg tablet RxNorm: 041998 1 Tablet(s) PO QHS No Start Date 03/15/2016 Inactive Xanax 0.5 mg tablet RxNorm: 702772 1 Tablet(s) PO Q6 as needed anxiety No Start Date 08/23/2016 Inactive Tylenol Extra Strength 500 mg tablet RxNorm: 347063 3 Tablet(s) PO BID after breakfast and after lunch No Start Date 01/12/2016 Inactive lactulose 20 gram/30 mL oral solution RxNorm: 322411 15-30 Milliliter(s) PO BID as needed No Start Date 12/30/2017 Inactive hydrocodone 5 mg-acetaminophen 325 mg tablet RxNorm: 059452 1 Tablet(s) PO Q6 as needed No Start Date 12/10/2014 Inactive Phenergan-Codeine syrup RxNorm: 5-10 Milliliter(s) PO QID as needed No Start Date 11/13/2017 Inactive ibuprofen 200 mg capsule RxNorm: 827907 4 Capsule(s) PO QID as needed No Start Date 04/01/2015 Inactive Medication Administered Medication Codes Instructions Start Date Status Kenalog 40 mg/mL suspension for injection RxNorm: 6874683 Milliliter 07/17/2018 No longer Active ceftriaxone 500 mg solution for injection RxNorm: 7083942 1Milliliter 06/27/2017 No longer Active Kenalog 40 mg/mL suspension for injection RxNorm: 7345197 1.5Milliliter 01/11/2017 No longer Active Kenalog 40 mg/mL suspension for injection RxNorm: 6502149 Milliliter 02/28/2016 No longer Active Immunizations Vaccine [...] Item Item Code Result Date Influenza A+B Tyf226 Influ A+B Pos Influenza A 07/17/2018 %Hba1C Zim884 % HbA1c 19469- 6 6.7 % 11/20/2017 %Hba1C Qqo356 Gluc Ave 146 mg/dL 11/20/2017 Free T4 Acz503 FREE T4 0.76 ng/dL 05/21/2017 Tsh Ord6 hTSH II 1.27 uIU/mL 05/21/2017 Comp Metabolic Bik710 NA 140 mEq/L 05/21/2017 Comp Metabolic Cvu888 K 3.9 mEq/L 05/21/2017 Comp Metabolic Zlc821 CL 101 mEq/L 05/21/2017 Comp Metabolic Tka077 CO2 28.0 mEq/L 05/21/2017 Comp Metabolic Quy754 ANION GAP 15 05/21/2017 Comp Metabolic Lvl546 GLUCOSE 155 mg/dL 05/21/2017 Comp Metabolic Atw457 Creat 0.7 mg/dL 05/21/2017 Comp Metabolic Dck870 eGFR 87 ml/min/1.73m2 05/21/2017 Comp Metabolic Sdb979 BUN 16 mg/dL 05/21/2017 Comp Metabolic Pmd510 B/C Ratio 21.6 Ratio 05/21/2017 Comp Metabolic Xpn675 CALCIUM 9.4 mg/dL 05/21/2017 Comp Metabolic Cvn669 ALK PHOS 132 U/L 05/21/2017 Comp Metabolic Qlw685 AST(SGOT) 16 U/L 05/21/2017 Comp Metabolic Xiw062 ALT(SGPT) 20 U/L 05/21/2017 Comp Metabolic Gaw567 BILI T 0.4 mg/dL 05/21/2017 Comp Metabolic Ppe993 ALBUMIN 4.0 g/dL 05/21/2017 Comp Metabolic Krt755 TPRO 6.7 g/dL 05/21/2017 Comp Metabolic Ykj696 GLOB 2.7 g/dL 05/21/2017 Comp Metabolic Kfw028 A/G Ratio 1.5 Ratio 05/21/2017 Comp Metabolic Hmj653 Osmo 284 mOsmo 05/21/2017 Cbc With Differential [...] 28.9 pg 05/21/2017 Cbc With Differential Ord2 Thomas% 5.5 % 05/21/2017 Cbc With Differential Ord2 [...] 2.65 K/ul 05/21/2017 Cbc With Differential Ord2 Thomas ABS# 0.8 K/ul 05/21/2017 Cbc With Differential Ord2 Eos ABS# 0.1 K/ul 05/21/2017 Cbc With Differential Ord2 Baso ABS# 0.0 K/ul 05/21/2017 Estrogens Total 249170 ESTROGENS, TOTAL 54 pg/mL 05/24/2016 Magnesium Ord90 Mag 1.8 mg/dL 05/19/2016 Tsh Ord6 hTSH II 1.56 uIU/mL 05/19/2016 Progesterone Prog 0.03 ng/mL 05/19/2016 Comp Metabolic Kfs877 NA 136 mEq/L 05/19/2016 Comp Metabolic Jxs412 K 4.3 mEq/L 05/19/2016 Comp Metabolic Vng283 CL 100 mEq/L 05/19/2016 Comp Metabolic Fxr059 CO2 28.0 mEq/L 05/19/2016 Comp Metabolic Vvj457 ANION GAP 12 05/19/2016 Comp Metabolic Bsy482 GLUCOSE 138 mg/dL 05/19/2016 Comp Metabolic Ajn755 Creat 0.7 mg/dL 05/19/2016 Comp Metabolic Igu372 eGFR 89 ml/min/1.73m2 05/19/2016 Comp Metabolic Yfj687 BUN 15 mg/dL 05/19/2016 Comp Metabolic Suq296 B/C Ratio 20.5 Ratio 05/19/2016 Comp Metabolic Obf787 CALCIUM 9.7 mg/dL 05/19/2016 Comp Metabolic Ciw367 ALK PHOS 106 U/L 05/19/2016 Comp Metabolic Gin151 AST(SGOT) 21 U/L 05/19/2016 Comp Metabolic Trj889 ALT(SGPT) 24 U/L 05/19/2016 Comp Metabolic Nvw516 BILI T 0.4 mg/dL 05/19/2016 Comp Metabolic Deu649 ALBUMIN 4.1 g/dL 05/19/2016 Comp Metabolic Agp055 TPRO 7.1 g/dL 05/19/2016 Comp Metabolic Akl823 GLOB 3.0 g/dL 05/19/2016 Comp Metabolic Yhy964 A/G Ratio 1.4 Ratio 05/19/2016 Comp Metabolic Gno739 Osmo 275 mOsmo 05/19/2016 Cbc With Differential [...] 28.5 pg 05/19/2016 Cbc With Differential Ord2 Thomas% 6.5 % 05/19/2016 Cbc With Differential Ord2 [...] 2.33 K/ul 05/19/2016 Cbc With Differential Ord2 Thomas ABS# 0.6 K/ul 05/19/2016 Cbc With Differential Ord2 Eos ABS# 0.1 K/ul 05/19/2016 Cbc With Differential Ord2 Baso ABS# 0.0 K/ul 05/19/2016 C RAP A SC [id number] Strep A Negative 02/28/2016 Tsh Ord6 hTSH [...] 26.2 pg 08/16/2015 Cbc With Differential Ord2 Thomas% 7.1 % 08/16/2015 Cbc With Differential Ord2 [...] 2.32 K/ul 08/16/2015 Cbc With Differential Ord2 Thomas ABS# 0.6 K/ul 08/16/2015 Cbc With Differential Ord2 Eos ABS# 0.1 K/ul 08/16/2015 Cbc With Differential Ord2 Baso ABS# 0.0 K/ul 08/16/2015 Cbc With Differential Ord2 New Analyzer Notice Please note new ref ranges starting 05-26-2015 due to implemntation of new five part differential hematolgy analyzer. 08/16/2015 Comp Metabolic Rka443 NA 132 mEq/L 08/16/2015 Comp Metabolic Soz426 K 3.6 mEq/L 08/16/2015 Comp Metabolic Mwc673 CL 99 mEq/L 08/16/2015 Comp Metabolic Syh431 CO2 23.0 mEq/L 08/16/2015 Comp Metabolic Slo217 ANION GAP 14 08/16/2015 Comp Metabolic Xjh949 GLUCOSE 101 mg/dL 08/16/2015 Comp Metabolic Qfa171 Creat 0.7 mg/dL 08/16/2015 Comp Metabolic Iuv550 eGFR 100 ml/min/1.73m2 08/16/2015 Comp Metabolic Qam852 BUN 10 mg/dL 08/16/2015 Comp Metabolic Vfr246 B/C Ratio 15.2 Ratio 08/16/2015 Comp Metabolic Qcf750 CALCIUM 9.3 mg/dL 08/16/2015 Comp Metabolic Run173 ALK PHOS 100 U/L 08/16/2015 Comp Metabolic Tvc786 AST(SGOT) 14 U/L 08/16/2015 Comp Metabolic Unf254 ALT(SGPT) 11 U/L 08/16/2015 Comp Metabolic Jyt587 BILI T 0.3 mg/dL 08/16/2015 Comp Metabolic Oaf021 ALBUMIN 3.9 g/dL 08/16/2015 Comp Metabolic Kda596 TPRO 7.1 g/dL 08/16/2015 Comp Metabolic Ugd481 GLOB 3.2 g/dL 08/16/2015 Comp Metabolic Fnm483 A/G Ratio 1.2 Ratio 08/16/2015 Comp Metabolic Fim701 Osmo 264 mOsmo 08/16/2015 Lipid Ord30 CHOL 209 mg/dL 12/03/2014 Lipid Ord30 HDL 42.0 mg/dl 12/03/2014 Lipid Ord30 TRIG 219 mg/dL 12/03/2014 Lipid Ord30 LDL 123 mg/dL 12/03/2014 Lipid Ord30 C/HDL 5.0 Ratio 12/03/2014 Comp Metabolic Yht727 NA 132 mEq/L 12/03/2014 Comp Metabolic Rmo975 K 4.0 mEq/L 12/03/2014 Comp Metabolic Rcd637 CL 101 mEq/L 12/03/2014 Comp Metabolic Ucr753 CO2 22.0 mEq/L 12/03/2014 Comp Metabolic Ttu492 ANION GAP 13 12/03/2014 Comp Metabolic Vuy543 GLUCOSE 123 mg/dL 12/03/2014 Comp Metabolic Wys250 Creat 0.7 mg/dL 12/03/2014 Comp Metabolic Hcn858 eGFR 97 ml/min/1.73m2 12/03/2014 Comp Metabolic Tyv154 BUN 10 mg/dL 12/03/2014 Comp Metabolic Vrs320 B/C Ratio 14.7 Ratio 12/03/2014 Comp Metabolic Cph358 CALCIUM 9.2 mg/dL 12/03/2014 Comp Metabolic Qcb680 ALK PHOS 88 U/L 12/03/2014 Comp Metabolic Ogi620 AST(SGOT) 18 U/L 12/03/2014 Comp Metabolic Pks283 ALT(SGPT) 17 U/L 12/03/2014 Comp Metabolic Vtk381 BILI T 0.5 mg/dL 12/03/2014 Comp Metabolic Jqn062 ALBUMIN 3.9 g/dL 12/03/2014 Comp Metabolic Ooz396 TPRO 6.8 g/dL 12/03/2014 Comp Metabolic Bvz308 GLOB 2.9 g/dL 12/03/2014 Comp Metabolic Und260 A/G Ratio 1.3 Ratio 12/03/2014 Comp Metabolic Cjm073 Osmo 265 mOsmo 12/03/2014 Tsh Ord6 hTSH II 1.13 uIU/mL 12/03/2014 D-Dimer D-DIMER 168 NG/ML 12/03/2014 D-Dimer [id number] COMMENT 12/03/2014 Cbc With Differential Ord2 WBC [...] Procedure Codes Date THER/PROPH/DIAG INJ SC/IM CPT-4: 79839 07/17/2018 TRIAMCINOLONE ACET INJ NOS CPT-4: J3301 07/17/2018 THER/PROPH/DIAG INJ SC/IM CPT-4: 52022 06/27/2017 ROCEPHIN, PER 250 MG CPT- 4: J0696 06/27/2017 IMMUNIZATION ADMIN CPT- 4: 94384 03/16/2017 FLU VAC NO PRSV 4 FLETCHER 3 YRS+ CPT-4: 92724 03/16/2017 Pneumococcal Polysaccharide Vaccine, 23-Valent, Ad CPT-4: 26702 03/16/2017 IMMUNIZATION ADMIN EACH ADD CPT-4: 71560 03/16/2017 TRIAMCINOLONE ACET INJ NOS CPT-4: J3301 01/11/2017 TRIAMCINOLONE ACET INJ NOS CPT-4: J3301 02/28/2016 Vital Signs Date Vital 07/17/2018 Blood Pressure 1: 126/72 Code: 8480-6 BMI: 38.6 Code: 64509-2 Heart Rate 1: 85 bpm Height: 5'6" SpO2: 95% Temperature: 36.9 (C) / 98.4 (F) Weight: 239 lbs 07/04/2018 Blood Pressure 1: 132/76 Code: 8480-6 Heart Rate 1: 80 bpm Height: SpO2: 97% Weight: 06/19/2018 Blood Pressure 1: 124/74 Code: 8480-6 BMI: 38.6 Code: 54359-9 Heart Rate 1: 85 bpm Height: 5'6" SpO2: 95% Weight: 239 lbs 04/24/2018 Blood Pressure 1: 128/74 Code: 8480-6 BMI: 37.8 Code: 28734-7 Heart Rate 1: 107 bpm Height: 5'6" SpO2: 98% Weight: 234 lbs 04/17/2018 Blood Pressure 1: 120/64 Code: 8480-6 BMI: 37.8 Code: 10506-7 Heart Rate 1: 84 bpm Height: 5'6" SpO2: 96% Weight: 234 lbs 03/14/2018 Blood Pressure 1: 140/82 Code: 8480-6 BMI: 37.8 Code: 64934-1 Heart Rate 1: 85 bpm Height: 5'6" SpO2: 98% Weight: 234 lbs 02/27/2018 Blood Pressure 1: 142/68 Code: 8480-6 BMI: 36.5 Code: 26092-8 Heart Rate 1: 84 bpm Height: 5'6" SpO2: 97% Weight: 226 lbs 12/19/2017 Blood Pressure 1: 130/86 Code: 8480-6 BMI: 35.7 Code: 22177-6 Heart Rate 1: 94 bpm Height: 5'6" Weight: 221 lbs 12/04/2017 Blood Pressure 1: 138/78 Code: 8480-6 BMI: 36.6 Code: 03039-0 Heart Rate 1: 94 bpm Height: 5'6" SpO2: 98% Weight: 227 lbs 11/20/2017 Weight: 233 lbs 09/10/2017 Blood Pressure 1: 132/86 Code: 8480-6 Heart Rate 1: 86 bpm Height: Weight: 08/14/2017 Blood Pressure 1: 120/74 Code: 8480-6 BMI: 33.9 Code: 54479-6 Heart Rate 1: 92 bpm Height: 5'6" SpO2: 94% Weight: 210 lbs 07/31/2017 Blood Pressure 1: 140/80 Code: 8480-6 BMI: 33.9 Code: 37405-1 Heart Rate 1: 96 bpm Height: 5'6" SpO2: 97% Weight: 210 lbs 06/27/2017 Blood Pressure 1: 128/80 Code: 8480-6 BMI: 33.9 Code: 35886-8 Heart Rate 1: 85 bpm Height: 5'6" [...] 1: 126/74 Code: 8480-6 BMI: 39.9 Code: 43723-2 Heart Rate 1: 79 bpm Height: 5'6" SpO2: 97% Weight: 247 lbs 01/26/2017 Blood Pressure 1: 132/74 Code: 8480-6 BMI: 37.8 Code: 19213-5 Heart Rate 1: 74 bpm Height: 5'6" SpO2: 97% Weight: 234 lbs 01/11/2017 Blood Pressure 1: 118/68 Code: 8480-6 BMI: 38.7 Code: 99770-9 Heart Rate 1: 91 bpm Height: 5'6" SpO2: 96% Weight: 240 lbs 11/30/2016 Blood Pressure 1: 132/76 Code: 8480-6 BMI: 38.3 Code: 18527-1 Heart Rate 1: 71 bpm Height: 5'6" SpO2: 92% Weight: 237 lbs 09/28/2016 Blood Pressure 1: 122/72 Code: 8480-6 BMI: 39.1 Code: 18069-2 Heart Rate 1: 88 bpm Height: 5'6" SpO2: 94% Weight: 242 lbs 08/24/2016 Blood Pressure 1: 130/87 Code: 8480-6 BMI: 41.5 Code: 15981-2 Heart Rate 1: 95 bpm Height: 5'6" Respiratory Rate: 16 bpm SpO2: 98% Temperature: 36.9 (C) / 98.5 (F) Weight: 257 lbs 07/13/2016 Blood Pressure 1: 132/84 Code: 8480-6 BMI: 42.0 Code: 89262-4 Heart Rate 1: 73 bpm Height: 5'6" SpO2: 97% Weight: 260 lbs 05/19/2016 Blood Pressure 1: 138/76 Code: 8480-6 BMI: 40.8 Code: 99915-7 Heart Rate 1: 80 bpm Height: 5'6" SpO2: 98% Weight: 253 lbs 03/16/2016 Blood Pressure 1: 122/70 Code: 8480-6 BMI: 40.4 Code: 96244-1 Heart Rate 1: 72 bpm Height: 5'6" SpO2: 98% Weight: 250 lbs 02/28/2016 Blood Pressure 1: 136/86 Code: 8480-6 BMI: 40.2 Code: 93520-8 Heart Rate 1: 87 bpm Height: 5'6" SpO2: 96% Temperature: 36.3 (C) / 97.3 (F) Weight: 249 lbs 01/13/2016 Blood Pressure 1: 120/76 Code: 8480-6 BMI: 40.4 Code: 77226-7 Heart Rate 1: 68 bpm Height: 5'6" SpO2: 97% Weight: 250 lbs 09/27/2015 Blood Pressure 1: 112/70 Code: 8480-6 BMI: 38.4 Code: 29618-0 Heart Rate 1: 76 bpm Height: 5'6" SpO2: 98% Weight: 238 lbs 08/30/2015 Blood Pressure 1: 144/82 Code: 8480-6 BMI: 39.5 Code: 27207-6 Heart Rate 1: 82 bpm Height: 5'6" SpO2: 97% Weight: 245 lbs 08/16/2015 Blood Pressure 1: 140/72 Code: 8480-6 BMI: 38.9 Code: 88259-7 Heart Rate 1: 72 bpm Height: 5'6" SpO2: 97% Weight: 241 lbs 07/15/2015 Blood Pressure 1: 128/80 Code: 8480-6 BMI: 39.3 Code: 17566-5 Heart Rate 1: 86 bpm Height: 5'6" SpO2: 98% Weight: 243 lbs 8 oz 06/16/2015 Blood Pressure 1: 146/86 Code: 8480-6 BMI: 39.6 Code: 44329-2 Heart Rate 1: 76 bpm Height: 5'6" SpO2: 97% Weight: 245 lbs 8 oz 04/02/2015 Blood Pressure 1: 132/86 Code: 8480-6 BMI: 40.7 Code: 76277-7 Heart Rate 1: 94 bpm Height: 5'6" SpO2: 98% Weight: 252 lbs 12/02/2014 Blood Pressure 1: 122/90 Code: 8480-6 BMI: 41.6 Code: 40636-3 Heart Rate 1: 77 bpm Height: 5'6" [...] data Encounters Encounter Performer Location Codes Date 49488 EST. PATIENT, LEVEL III Diagnosis: Acute laryngopharyngitis[ICD10: J06.0] Diagnosis: Cough[ICD10: R05] Diagnosis: Other allergic rhinitis[ICD10: J30.89] Diagnosis: Right upper quadrant pain[ICD10: R10.11] Petra Trejo MD, [facility] CPT-4: 14082 07/17/2018 22960 EST. PATIENT, LEVEL III Diagnosis: Generalized anxiety disorder[ICD10: F41.1] Diagnosis: Major depressive disorder, single episode, moderate[ICD10: F32.1] Petra Trejo MD, [facility] CPT-4: 00916 07/04/2018 27761 EST. PATIENT, LEVEL IV Diagnosis: Generalized anxiety disorder[ICD10: F41.1] Diagnosis: Major depressive disorder, single episode, moderate[ICD10: F32.1] Diagnosis: Other insomnia[ICD10: G47.09] Petra Trejo MD, [facility] CPT-4: 12831 06/19/2018 99054 EST. PATIENT, LEVEL IV Diagnosis: Right upper quadrant pain[ICD10: R10.11] Diagnosis: Other chest pain[ICD10: R07.89] Petra Trejo MD, [facility] CPT-4: 14665 04/24/2018 18139 EST. PATIENT, LEVEL III Diagnosis: Generalized anxiety disorder[ICD10: F41.1] Diagnosis: Major depressive disorder, recurrent, mild[ICD10: F33.0] Diagnosis: Essential (primary) hypertension[ICD10: I10] Diagnosis: Type 2 diabetes mellitus without complications[ICD10: E11.9] Petra Trejo MD, [facility] CPT-4: 96567 04/17/2018 12498 EST. PATIENT, LEVEL III Diagnosis: Localized edema[ICD10: R60.0] Diagnosis: Essential (primary) hypertension[ICD10: I10] Petra Trejo MD, [facility] CPT-4: 24104 03/14/2018 13656 EST. PATIENT, LEVEL III Diagnosis: Pain in left knee[ICD10: M25.562] Diagnosis: Other obesity due to excess calories[ICD10: E66.09] Diagnosis: Other insomnia[ICD10: G47.09] Diagnosis: Generalized anxiety disorder[ICD10: F41.1] Petra Trejo MD, [facility] CPT-4: 57580 02/27/2018 ([id number]) Miscellaneous no charge Diagnosis: Other obesity due to excess calories[ICD10: E66.09] Heidy Trejo MD, [facility] CPT-4: 51483 12/19/2017 49039 EST. PATIENT, LEVEL III Diagnosis: Pain in right foot[ICD10: M79.671] Diagnosis: Pain in right ankle and joints of right foot[ICD10: M25.571] Petra Trejo MD, [facility] CPT-4: 32643 12/04/2017 49452 EST. PATIENT, LEVEL III Diagnosis: Pain in left knee[ICD10: M25.562] Diagnosis: Type 2 diabetes mellitus without complications[ICD10: E11.9] Diagnosis: Other obesity due to excess calories[ICD10: E66.09] Petra Trejo MD, [facility] CPT-4: 65030 11/20/2017 63629 EST. PATIENT, LEVEL III Diagnosis: Pain in left knee[ICD10: M25.562] Petra Trejo MD, [facility] CPT-4: 43194 09/10/2017 36880 EST. PATIENT, LEVEL III Diagnosis: Encounter for follow-up examination after completed treatment for conditions other than malignant neoplasm[ICD10: Z09] Diagnosis: Pain in left knee[ICD10: M25.562] Petra Trejo MD, [facility] CPT-4: 59832 08/14/2017 76405 EST. PATIENT, LEVEL III Diagnosis: Pain in left knee[ICD10: M25.562] Petra Trejo MD, [facility] CPT-4: 81277 07/31/2017 09650 EST. PATIENT, LEVEL III Diagnosis: Acute laryngopharyngitis[ICD10: J06.0] Diagnosis: Other allergic rhinitis[ICD10: J30.89] Petra Trejo MD, [facility] CPT- 4: 03269 06/27/2017 79380 EST. PATIENT, LEVEL III Diagnosis: Ganglion, left hand[ICD10: M67.442] Diagnosis: Essential (primary) hypertension[ICD10: I10] Diagnosis: Generalized anxiety disorder[ICD10: F41.1] Diagnosis: Other insomnia[ICD10: G47.09] Petra Trejo MD, [facility] CPT-4: 80951 05/29/2017 85196 EST. PATIENT, LEVEL III Diagnosis: Essential (primary) hypertension[ICD10: I10] Diagnosis: Palpitations[ICD10: R00.2] Diagnosis: Generalized anxiety disorder[ICD10: F41.1] Petra Trejo MD, [facility] CPT-4: 28893 05/21/2017 84902 EST. PATIENT, LEVEL III Diagnosis: Pain in right foot[ICD10: M79.671] Petra Trejo MD, [facility] CPT-4: 55248 04/20/2017 96537 EST. PATIENT, LEVEL IV Diagnosis: Other insomnia[ICD10: G47.09] Diagnosis: Other skin changes[ICD10: R23.8] Petra Trejo MD, [facility] CPT-4: 55476 01/26/2017 08650 EST. PATIENT, LEVEL IV Diagnosis: Acute bronchitis due to other specified organisms[ICD10: J20.8] Petra Trejo MD, [facility] CPT-4: 81061 01/11/2017 ([id number]) 72077 EST. PATIENT, LEVEL IV Diagnosis: Essential (primary) hypertension[ICD10: I10] Diagnosis: Other insomnia[ICD10: G47.09] Diagnosis: Primary generalized (osteo)arthritis[ICD10: M15.0] Diagnosis: Other obesity due to excess calories[ICD10: E66.09] Claudette Trejo MD, [facility] CPT-4: 47202 11/30/2016 ([id number]) 30427 EST. PATIENT, LEVEL III Diagnosis: Other obesity due to excess calories[ICD10: E66.09] Diagnosis: Other insomnia[ICD10: G47.09] Diagnosis: Generalized anxiety disorder[ICD10: F41.1] Claudette Trejo MD, [facility] CPT-4: 95986 09/28/2016 ([id number]) 24178 EST. PATIENT, LEVEL IV Diagnosis: Generalized anxiety disorder[ICD10: F41.1] Diagnosis: Major depressive disorder, recurrent, mild[ICD10: F33.0] Diagnosis: Other obesity due to excess calories[ICD10: E66.09] Diagnosis: Other insomnia[ICD10: G47.09] Claudette Trejo MD, [facility] CPT-4: 33594 08/24/2016 ([id number]) 81388 EST. PATIENT, LEVEL III Diagnosis: Other obesity due to excess calories[ICD10: E66.09] Diagnosis: Major depressive disorder, recurrent, moderate[ICD10: F33.1] Diagnosis: Low back pain[ICD10: M54.5] Heidy Trejo MD, [facility] CPT-4: 04807 07/13/2016 13220 EST. PATIENT, LEVEL IV Diagnosis: Other muscle spasm[ICD10: M62.838] Diagnosis: Generalized anxiety disorder[ICD10: F41.1] Diagnosis: Major depressive disorder, recurrent, moderate[ICD10: F33.1] Diagnosis: Other insomnia[ICD10: G47.09] Petra Trejo MD, [facility] CPT-4: 13015 05/19/2016 ([id number]) 44005 EST. PATIENT, LEVEL III Diagnosis: Generalized anxiety disorder[ICD10: F41.1] Diagnosis: Major depressive disorder, recurrent, moderate[ICD10: F33.1] Heidy Trejo MD, [facility] CPT-4: 13735 03/16/2016 ([id number]) 17667 EST. PATIENT, LEVEL III Diagnosis: Streptococcal pharyngitis[ICD10: J02.0] Claudette Trejo MD, [facility] CPT-4: 25513 02/28/2016 ([id number]) 90817 EST. PATIENT, LEVEL III Diagnosis: Generalized anxiety disorder[ICD10: F41.1] Diagnosis: Other obesity due to excess calories[ICD10: E66.09] Heidy Trejo MD, [facility] CPT-4: 96598 01/13/2016 ([id number]) 58622 EST. PATIENT, LEVEL III Diagnosis: Generalized anxiety disorder[ICD10: F41.1] Diagnosis: Major depressive disorder, recurrent, unspecified[ICD10: F33.9] Heidy Trejo MD, [facility] CPT-4: 41032 09/27/2015 68402 EST. PATIENT, LEVEL IV Diagnosis: Chronic pain syndrome[ICD10: G89.4] Diagnosis: Other obesity due to excess calories[ICD10: E66.09] Diagnosis: Essential (primary) hypertension[ICD10: I10] Diagnosis: Generalized anxiety disorder[ICD10: F41.1] Diagnosis: Excessive and frequent menstruation with regular cycle[ICD10: N92.0] Diagnosis: Pain in right knee[ICD10: M25.561] Petra Trejo MD, [facility] CPT-4: 98183 08/30/2015 23862 EST. PATIENT, LEVEL IV Diagnosis: Palpitations[ICD10: R00.2] Diagnosis: Other obesity due to excess calories[ICD10: E66.09] Petra Trejo MD, [facility] CPT-4: 65942 08/16/2015 ([id number]) 39347 EST. PATIENT, LEVEL IV Diagnosis: Pain in right knee[ICD10: M25.561] Diagnosis: Primary generalized (osteo)arthritis[ICD10: M15.0] Diagnosis: Acute maxillary sinusitis, unspecified[ICD10: J01.00] Heidy Trejo MD, [facility] CPT-4: 15605 07/15/2015 ([id number]) 19318 EST. PATIENT, LEVEL IV Diagnosis: Primary generalized (osteo)arthritis[ICD10: M15.0] Diagnosis: Restless legs syndrome[ICD10: G25.81] Diagnosis: Chronic pain syndrome[ICD10: G89.4] Heidy Trejo MD, [facility] CPT- 4: 57718 06/16/2015 ([id number]) 66267 EST. PATIENT, LEVEL III Diagnosis: Primary generalized (osteo)arthritis[ICD10: M15.0] Diagnosis: Varicose veins of bilateral lower extremities with pain[ICD10: I83.813] [facility] CPT-4: 70512 04/02/2015 ([id number]) OFFICE VISIT, NEW - LEVEL 3 Diagnosis: Osteoarthritis[ICD9: 715.90] Diagnosis: ABNORMAL WEIGHT GAIN[ICD9: 783.1] Diagnosis: Superficial thrombophlebitis[ICD9: 451.9] [facility] CPT-4: 20119 12/02/2014 Plan of Care Planned Activity Notes [...] indicated 07/17/2018 Appointment: Petra Rivas WPtel: [phone] [phone] (30 min) Complex 07/17/2018 Patient Education: Patient [...] medications. 07/04/2018 Appointment: Petra Rivas WPtel: [phone] [phone] (30 min) Complex 07/04/2018 Patient Education: Patient [...] patient. 06/19/2018 Appointment: Petra Rivas WPtel: [phone] [phone] (15 min) Moderate 06/19/2018 Patient Education: Patient [...] she is to follow up with her provider relations consultant 04/24/2018 [facility]ment[phone] [place] (30 min) Complex 04/24/2018 Patient Education: [...] Appointment: [phone] [place] (15 min) Moderate 04/17/2018 Patient Education: [...] peripheral edema. 03/14/2018 App[phone] (15 min) Moderate 03/14/2018 Patient Education: Patient [...] to ortho 02/27/2018 Appointment: Pet[facility] Rivas WPtel: [facility] ([facility] min) Complex 02/27/2018 Patient Education: Patient [...] improve. 12/04/2017 App[facility]ment: [phone] [place] (15 min) Moderate 12/04/2017 Patient Education: [...] control. 11/20/2017 Appointment: [phone] [place] (15 min) Moderate 11/20/2017 Patient Education: [...] improve. 09/10/2017 App[facility]ment: [phone] [place] (15 min) Moderate 09/10/2017 Patient Education: [...] improve. 08/14/2017 Appointment: Petra Rivas WPtel: [phone] [facility] [place] (30 min) Complex 08/14/2017 Patient Education: Patient Medication Summary Completed 08/14/2017 Appointment: Petra Rivas WPtel: [facility] [place] (15 min) Moderate 08/01/2017 Visit Plan: Knee pain - pt is to use RICE - Rest, Ice, Compression, Elevation - pt is to use crutches as directed - The pt is to use prn antiinflammatories to manage acute pain. The patient is to call the office if the pain is worsening or does not improve. 07/31/2017 Appointment: Petra Rivas WPtel: [facility] [place] (30 min) Complex 07/31/2017 Patient Education: Patient Medication Summary Completed 07/31/2017 Care Plan: X-RAY EXAM OF KNEE 3 LOINC : 69727-6 Pending 07/31/2017 Visit Plan: URI - Pt [...] spray. 06/27/2017 Appointment: Petra Rivas WPtel: [facility] [place] (15 min) Moderate 06/27/2017 Patient Education: Patient Medication Summary Completed 06/27/2017 Referral: Jignesh Quinn [facility] Patient informed. Referral info faxed. Completed [...] Quinn 05/29/2017 Appointment: Petra Rivas WPtel: [facility] (15 min) Moderate 05/29/2017 Patient Education: Patient Medication Summary Completed 05/29/2017 Care Plan: Referral Order SNOMED-CT : 049326923 Pending 05/29/2017 Appointment: Petra Rivas WPtel: [facility] (15 min) Moderate 05/28/2017 Visit Plan: Palpitations [...] concerns. 05/21/2017 Appointment: Petra Rivas WPtel: [phone] [phone] (15 min) Moderate 05/21/2017 Patient Education: Patient Medication Summary Completed 05/21/2017 Visit Plan: Right heel pain - will send RX, pt is to do stretches as directed - The pt is to use prn antiinflammatories to manage acute pain. The patient is to call the office if the pain is worsening or does not improve. 04/20/2017 Appointment: Petra Rivas WPtel: [phone] [phone] (30 min) Complex 04/20/2017 Patient Education: Patient Medication Summary Completed 04/20/2017 Appointment: Petra Rivas WPtel: [phone] [phone] (30 min) Complex 03/29/2017 Patient Education: Patient Medication Summary Completed 03/16/2017 Referral: Maycol Quijano Referral Initiated 02/08/2017 Care Plan: Referral Order SNOMED-CT : 325535442 Pending 01/28/2017 Visit Plan: Insomnia - Pt [...] or concerns. 01/26/2017 App[facility]ment: [phone] [place] (30 min) Complex 01/26/2017 Patient Education: Patient [...] worsen. 01/11/2017 Appointment: [phone] (15 min) Moderate 01/11/2017 Patient Education: Patient [...] use. 11/30/2016 Appointment: Claudette Savage WPtel: [phone] (15 min) Moderate 11/30/2016 Patient Education: Patient Medication Summary Completed 11/30/2016 Patient Education: Obesity Completed 11/30/2016 Care Plan: BMI Above normal followup SELF-MGMT EDUC & TRAIN 1 PT Pending 11/30/2016 Visit Plan: Rwuhscp-nufkiexxej-jjvgspbs with increase in cymbalta- no changes Insomnia-RX for belsomra provided and instructed on use Obesity- patient down 15#-no changes-continue diet/exercise-follow up in 2 months 09/28/2016 Appointment: Claudette Savage WPtel: [phone] (15 min) Moderate 09/28/2016 Patient Education: Patient Medication Summary Completed 09/28/2016 Patient Education: Obesity Completed 09/28/2016 Care Plan: BMI Above normal followup SELF-MGMT EDUC & TRAIN 1 PT Pending 09/28/2016 Visit Plan: Bhydskt-eqacdievlr-yjxqcuco-increase cymbalta to 60mg daily. Increase xanax as [...] insomnia/anxiety 08/24/2016 Appointment: Claudette Savage WPtel: [phone] (15 min) Moderate 08/24/2016 Patient Education: Patient [...] not improving. 07/13/2016 Appointment: Heidy Trejo WPtel: [phone] (15 min) Moderate 07/13/2016 Patient Education: Patient [...] insomnia. 05/19/2016 Appointment: Petra Rivas WPtel: [phone] [phone] (30 min) Complex 05/19/2016 Patient Education: Patient [...] patient. 03/16/2016 Appointment: Heidy Trejo WPtel: [phone] [facility] (15 min) Moderate 03/16/2016 Patient Education: [...] swab. 02/28/2016 Appointment: Claudette Savage WPtel: [phone] [phone] (10 min) Simple 02/28/2016 Patient Education: Patient [...] lexapro 01/13/2016 Appointment: Heidy Trejo WPtel: [phone] [phone] (15 min) Moderate 01/13/2016 Patient Education: Patient [...] 09/27/2015 Care Plan: Referral Order SNOMED-CT : 961280157 Pending 08/31/2015 Visit Plan: Anxiety - the [...] show improvement. 07/15/2015 Appointment: Heidy Trejo WPtel: [address] [place], [place] [address] (15 min) Moderate 07/15/2015 Patient Education: Patient [...] vein clinic 04/02/2015 Appointment: Claudette Savage WPtel: [phone] (15 min) Moderate 04/02/2015 Patient Education: Patient [...] Completed 12/02/2014 Referral: Belle Hoffman WPtel: [facility] they will call and set the appt with her Initiated Referral: Maycol Quijano Referral Initiated Referral: Belle Hoffman WPtel: [phone] [facility] Referral Initiated Referral: Jignesh Quinn [place] Referral Initiated Instructions Comment . Chronic [...] - will refer to Dr. Quinn . Insomnia - Pt has been advised to increase the light in the house during the day, and start dimming the lights during the evening hours. Pt has been advised to cut out caffeine after 5pm. Daytime napping worsens night time insomnia. Changing mole - will refer for removal - pt is to notify clinic with any changes, questions, or concerns. Breathing treatments 3 times [...] not improved, or if symptoms acutely worsen. pramipexole - 0.5mg - take at bedtime [...] 1 mg at night for anxiety . Nzilcda-lelyjvnzmy-thzluhvq-increase cymbalta to 60mg daily. Increase xanax as [...] she is to follow up with her provider relations consultant glucosamine and chondroiton - joint ease, joint [...] for celebrex provided and instructed on use. Breathing treatments 3 times a day x [...] 2 pills twice daily. stop lexapro . Right heel pain - will send [...] appropriately prescribed for this patient. BELSOMRA . Napwwra-gzuypeseai-peoepkle with increase in cymbalta-no changes Insomnia-RX for [...]
--- NOTE | 2018-10-14 13:51 | Progress Note-Post Operative ---
Post-Operative Progess Note Surgeon (s)/Appeals Officer (s) Surgeon KELLI DOWELL DO Appeals Officer: none Pre-Operative Diagnosis Chronic Gastritis Post-Operative Diagnosis Gastritis Esophagitis Hiatal hernia Procedure & Operative Findings Date of Procedure 10/14/18 Procedure Performed/Findings EGD with bx Anesthesia Type IV sedation by PEDIATRIC PSYCHIATRIST Estimated Blood Loss Estimated blood loss (mL): scant Specimens/Packing Specimens Removed Antral bx Body of stomach bx GE jxn bx KELIL DOWELL DO Oct 14, 2018 13:51
--- NOTE | 2018-10-14 13:53 | Endoscopy Discharge Instruct ---
Endo Procedure/Findings Findings 1.: Gastritis 2.: Hiatal Hernia Discharge Instructions - Activity: You might feel a little sleepy until tomorrow. This is due to the medicine you received to relax you. Until tomorrow, you should: NOT drive a car, operate machinery or power tools. NOT drink any alcoholic beverages. NOT make any important decisions or sign importortant papers. Do not return to work until tomorrow, unless otherwise instructed. Resume previous activities tomorrow. Diet: Start by taking liquids. If you tolerate liquids, advance to solid food. make an appointment for one week Notify Physician - If you experience excessive bleeding, unusual abdominal pain, fever, or chest pain, contact your doctor immediately. Follow-Up: - I have received and understand the above instructions and will call my doctor if I have any further questions. Patient Signature Date Nurse Signature Other (Relationship) KELLI DOWELL DO Oct 14, 2018 13:53
[2018-10-14 14:05] VITALS: BP 118/80
[2018-10-14 14:35] VITALS: BP 127/62
--- NOTE | 2018-10-14 14:39 | Anesthesia-General Post-Op ---
MAC Patient Condition Mental Status/LOC: Same as Preop Cardiovascular: Satisfactory Nausea/Vomiting: Absent Respiratory: Satisfactory Pain: Controlled Complications: Absent Post Op Complications Complications None Follow Up Care/Instructions Patient Instructions None needed. Anesthesiology Discharge Order Discharge Order Patient is doing well, no complaints, stable vital signs, no apparent adverse anesthesia problems. No complications reported per nursing. EMILY INFANTE CRNA Oct 14, 2018 14:38
[2018-10-14 14:45] VITALS: BP 127/62
--- NOTE | 2018-10-15 01:11 | OPERATIVE REPORT ---
DATE OF SERVICE: 10/14/2018 PREOPERATIVE DIAGNOSES: 1. Chronic gastritis. 2. Upper abdominal pain. POSTOPERATIVE DIAGNOSES: 1. Gastritis. 2. Esophagitis. 3. Hiatal hernia. PROCEDURES: EGD with biopsy. SURGEON: Heladio Oliveira DO. DIESEL RETROFIT INSTALLER: None. ANESTHESIA: IV sedation by the AUTOMOBILE CLUB INFORMATION CLERK. SPECIMEN: One biopsy from antrum, one biopsy from the body of stomach and one biopsy from the GE junction. BLOOD LOSS: Scant. FLUIDS: Per anesthesia. POSTOPERATIVE CONDITION: Stable. INDICATION FOR PROCEDURE: The patient is a 53-year-old female, who has been having some chronic gastritis, upper abdominal pain and needed a workup. FINDINGS: The patient had some gastritis as well as esophagitis and a small possibly sliding hiatal hernia. PROCEDURE NOTE: After informed consent was obtained, the patient was brought to the endoscopy suite and placed on the bed in left lateral decubitus position. She was administered IV sedation by the AUTOMOBILE CLUB INFORMATION CLERK, who then monitored her vitals the entire time, heart rate, blood pressure and pulse ox. The scope was then inserted, pushed down through the mouth through the esophagus and into the stomach and then into the duodenum. Duodenum looked good. Pulled back, a little bit of gastritis or inflammation in the stomach. I elected to do a biopsy of the antrum as well. I then did a biopsy of body of stomach, retroflexed the scope and saw a small hiatal hernia, looked like it may have even been sliding, then pulled the scope into the GE junction appeared to be a little bit of esophagitis with some creeping up of the Z line, took a biopsy here and then pulled the scope back into the esophagus. Rest of it looked good and pulled the scope out up the esophagus and out the mouth. The patient tolerated the procedure. She was recovered in the endoscopy suite. Job ID: [id number] DocumentID: [id number] Dictated Date: 10/14/2018 13:51:08 Iron Handler Date: 10/15/2018 01:11:34 Dictated By: HELADIO OLIVEIRA DO
== END 2018-10-14 14:45 | disposition home or self-care (01) ==
LOC: ENDO 12:08
PROVIDERS: ATTEND Surgery
DX: K29.50 Unspecified chronic gastritis without bleeding (principal); B96.81 Helicobacter pylori [H. pylori] as the cause of diseases classified elsewhere; K20.9 Esophagitis, unspecified; K44.9 Diaphragmatic hernia without obstruction or gangrene; I10 Essential (primary) hypertension; E11.9 Type 2 diabetes mellitus without complications; I49.3 Ventricular premature depolarization; F17.290 Nicotine dependence, other tobacco product, uncomplicated; F41.9 Anxiety disorder, unspecified; E66.9 Obesity, unspecified; Z68.38 Body mass index [BMI] 38.0-38.9, adult; Z79.899 Other long term (current) drug therapy